=== PATIENT | female | born 1985 | race Caucasian/White ===

== ENCOUNTER → 2018-01-17 14:51 | Outpatient (CLI) | payer MEDICAID, SELFPAY | PROVIDERS: Family Provider Internal Medicine; PCP Internal Medicine; Visit Provider Obstetrics & Gynecology | DX: N39.498 Other specified urinary incontinence (principal) | CPT/HCPCS: 87086; 87088 ==

== ENCOUNTER 2018-01-26 20:21 | Emergency (ER) | payer MEDICAID, SELFPAY ==
[2018-01-26 20:21] VITALS: BP 122/78; PULSE 96; RESP 15; TEMP 36.5; BMI 26.7
--- NOTE | 2018-01-26 20:40 | ED.VISSUMM ---
- ER Visit Summary Date of Service: 01/26/18 Chief Complaint: Right breast abscess History of Present Illness: The patient is a 32 F who presents with a right breast abscess. She has noticed that there for 10 days. It is painful. No fevers no drainage. States she had abnormal mammogram a few months back and had a biopsy but does not know the results. Physical Examination: Vital signs reviewed. Right breast reveals an erythematous area below the nipple. There is no induration. No fluctuance or drainage Test Results: None indicated Emergency Department Course and Treatment: Patient likely has a small abscess. It is not amenable to I&D at this time. I will treat with clindamycin and naproxen. Will need to follow-up with her [employer] Treatment Plan: [] Disposition: Discharge Impression: Right breast abscess This note was generated with [employer] dictation software. It may contain incorrect words, spelling, and punctuation that were not noted in review of the chart prior to signing ED Disposition - Plan for ED Patient: Chief Complaint: Abscess Referrals: Yassine Link MD [Primary Care Provider] -
--- NOTE | 2018-01-26 20:41 | ED.DEP ---
ED Disposition - Plan for ED Patient: Disposition: Home or Assisted Living Chief Complaint: Abscess Instructions: ED Infec Skin Cellulitis Prescriptions: Naproxen [Naprosyn] 500 mg PO BID PRN #20 tab Clindamycin [Cleocin] 300 mg PO TID #60 cap Referrals: Yassine Link MD [Primary Care Provider] -
[2018-01-26] MEDS: Clindamycin HCl 150 MG Capsule 300 MG PO (20:58)
[2018-01-26] MEDS: Naproxen 500 MG Tablet PO (20:59)
== END 2018-01-26 21:00 | disposition home or self-care (01) ==
LOC: ED 20:47
PROVIDERS: Emergency Provider Emergency Medicine; Family Provider Internal Medicine; PCP Internal Medicine
DX: N61.1 Abscess of the breast and nipple (principal); J45.909 Unspecified asthma, uncomplicated; Z72.0 Tobacco use; F32.9 Major depressive disorder, single episode, unspecified
CPT/HCPCS: 99283

== ENCOUNTER → 2018-01-30 12:59 | Outpatient (CLI) | payer MEDICAID, SELFPAY ==
--- NOTE | 2018-01-30 13:12 | HPBI_ITS ---
MAMMOGRAPHY - BILATERAL DIAGNOSTIC REASON FOR EXAM: Female, 32 years old. PERTINENT HISTORY: Palpable abnormality in the right breast. TECHNIQUE: Digital bilateral breast alonso (3D mammographic acquisition) in the CC and MLO projections. 2-D mediolateral oblique (MLO) and craniocaudad (CC) views of both breasts were obtained. CAD: Full Field Digital Mammography with Computer Added Detection was performed. COMPARISON: Comparison is made with prior study dated February 12, 2017. FINDINGS: Breast Composition: The breasts are heterogeneously dense, which may obscure small masses. There is evidence of a focal area of architectural distortion in the mid lateral portion of the left breast corresponding to the 3 or 4:00 position. The patient will be recalled for additional views including compression spot views. No other significant abnormalities are identified. HPBI/DIAG MAMM W/CAD, BILAT IMPRESSION: Focal area of architectural distortion at the 3:00 position of the left breast as described. The patient will be recalled for additional views. Recall Side: Left Breast ASSESSMENT CATEGORY: BIRADS Category 0: Incomplete. Need additional imaging evaluation. A letter regarding these results will be sent to the patient by the facility within 30 days. Approximately 10% of breast cancers are not detected by mammography. A normal mammogram should not delay biopsy of a clinically suspicious abnormality. Electronically Signed: Willy Hilliard MD at 14:52 EST Tel [phone], Service support ,
--- NOTE | 2018-01-30 13:12 | US_ITS ---
STUDY: ULTRASOUND BREAST - RIGHT REASON FOR EXAM: Female, 32 years old. Palpable lump in the right breast. TECHNIQUE: Axial and longitudinal images of the RIGHT breast were performed with a high resolution ultrasound transducer. COMPARISON: Comparison is made with prior mammogram done earlier today. Comparison is also made with prior sonogram of the right breast dated February 12, 2017. FINDINGS: RIGHT Breast: The palpable abnormality corresponds to a 1.4 cm x 2.2 cm x 0.5 cm hypoechoic nodular density in the subcutaneous tissue just deep to the skin. This is at the 4:00 position breast that sinus from the nipple. This most likely corresponds to an infected sebaceous cyst. Clinical correlation is recommended. US/Breast Limited Unilateral IMPRESSION: The palpable abnormality corresponds to a 1.4 cm x 2.2 cm x 0.5 cm hypoechoic nodule in the subcutaneous tissues just deep to the skin at the palpable site. This most likely represents an infected sebaceous cyst. Clinical correlation is recommended. ASSESSMENT CATEGORY: BIRADS Category 2: Benign. A letter regarding these results will be sent to the patient by the facility within 30 days. Electronically Signed: Willy Hilliard MD at 14:48 EST Tel [phone], Service support ,
== END ==
PROVIDERS: Family Provider Internal Medicine; PCP Internal Medicine; Visit Provider Obstetrics & Gynecology
DX: N63.0 Unspecified lump in unspecified breast (principal)
CPT/HCPCS: 76642; 77062; 77066; G0279

== ENCOUNTER → 2018-02-05 13:37 | Outpatient (CLI) | payer MEDICAID, SELFPAY ==
--- NOTE | 2018-02-05 13:43 | HPBI_ITS ---
MAMMOGRAPHY - UNILATERAL DIAGNOSTIC: LEFT BREAST REASON FOR EXAM: Female, 32 years old. Abnormal screening mammogram. PERTINENT HISTORY: Non-contributory. TECHNIQUE: Compression spot views of the left breast were obtained. CAD: Full Field Digital Mammography with Computer Added Detection was performed. COMPARISON: Comparison is made with prior study dated January 30, 2018. FINDINGS: Breast Composition: The breasts are heterogeneously dense, which may obscure small masses. Persistent architectural distortion with faint calcifications is seen in the inferior medial aspect of the left breast. A biopsy recommended for further evaluation. No other significant abnormalities are identified. HPBI/DIAG MAMM W/CAD, UNILAT IMPRESSION: Persistent architectural distortion with calcification as described. A biopsy recommended for further evaluation. ASSESSMENT CATEGORY: BIRADS Category 4: Suspicious - Biopsy Should Be Considered. A letter regarding these results will be sent to the patient by the facility within 30 days. Approximately 10% of breast cancers are not detected by mammography. A normal mammogram should not delay biopsy of a clinically suspicious abnormality. Electronically Signed: Willy Hilliard MD at 15:16 EDT Tel [phone], Service support ,
--- NOTE | 2018-02-05 13:44 | US_ITS ---
STUDY: ULTRASOUND BREAST - LEFT REASON FOR EXAM: Female, 32 years old. Abnormal screening mammogram. TECHNIQUE: Axial and longitudinal images of the LEFT breast were performed with a high resolution ultrasound transducer. COMPARISON: Comparison is made with prior mammogram dated February 05, 2018 and January 30, 2018. Comparison is also made with prior ultrasound of the left breast dated February 12, 2017. FINDINGS: LEFT Breast: There is a 7 mm x 6 mm x 3 mm lymph node at 1:00 position of the breast at the 4 cm from nipple. Mild degree of dilated subareolar ducts. US/Breast Limited Unilateral IMPRESSION: Small lymph node at the 1:00 position the breast at 4 cm from nipple. ASSESSMENT CATEGORY: BIRADS Category 2: Benign. A letter regarding these results will be sent to the patient by the facility within 30 days. Electronically Signed: Willy Hilliard MD at 8:06 EDT Tel [phone], Service support ,
== END ==
PROVIDERS: Family Provider Internal Medicine; PCP Internal Medicine; Visit Provider Obstetrics & Gynecology
DX: N63.0 Unspecified lump in unspecified breast (principal)
CPT/HCPCS: 76642; 77065

== ENCOUNTER → 2018-03-18 11:10 | Outpatient (CLI) | payer MEDICAID, SELFPAY ==
--- NOTE | 2018-03-18 | BRBX_PTH ---
PATIENT: ANJELICA MCWILLIAMS LOC: [facility] U#:[id number] AGE/SX: 39/F ROOM: RE03/18/[address]: Dr. Florin Patel MD : 1985 BED: DIS: SPEC #: [id number] RECD: 03/18/18 13:45 STATUS: SHARITA SNEEDAlejandrina #: [id number] KEVEN: 03/18/18 00:[address]: Florin Patel DEPT: SURGICAL PATHOLOGY RECD BY: Milton Diego ENTERED: 03/18/18 13:45 SP TYPE: BREAST BX OTHR DR: Dr. Yassine Link MD Tissues: Left breast, NOS Procedures: Surgery Specimen Level IV HEADER OPERATION: Left breast stereotactic needle core biopsy PRE-OP DIAGNOSIS: Left breast calcifications TISSUE SUBMITTED: Left breast core tissue ISCHEMIC TIME: 1 minute FIXATION TIME: 7.7 hours MICROSCOPIC DIAGNOSIS Left breast, stereotactic core biopsy: Mild fibrocystic change. Focal Banal microcalcifications. No evidence of malignancy. AM:zhane 03/19/18 MICROSCOPIC DESCRIPTION Slides are reviewed. GROSS DESCRIPTION Received is one container labeled with the patient's name and not further designated. The specimen consists of multiple irregular and elongated fragments of yellow-white soft tissue that in aggregate measure 8.5 x 3 x 0.2 cm. The specimen is totally submitted in three cassettes. / AM:zhane 03/18/18 TC:5 CPT: 81945
--- NOTE | 2018-03-18 12:03 | PCM.OPRPT ---
Problem List (1) Abnormal mammogram of left breast Status: Acute Report of Operation Date of Procedure: 03/18/18 Pre-Operative Diagnosis: Abnormal left mammogram Post-Operative Diagnosis: Abnormal left mammogram with distortion and microcalcifications lower inner left breast Surgery/Procedure Performed:: Stereotactic needle core biopsy lower inner left breast Description of Surgical Findings:: Timeout and informed consent was obtained. 32-year-old female was taken to the stereotactic unit. She was placed prone on the table. The left breast was placed in a lateral the microcalcification in distortion question rapidly identified. Stereotactic images were obtained. Digital information was obtained on a single target site. The breast was prepped with Betadine. 1% lidocaine was used as a local anesthetic. A total of 10 cc was used. A small stab incision created. An 8-gauge resolve needle was advanced to prefire depth. Prefire films were obtained. Subsequently the device was fired. Cores were obtained from 9:00 to 3:00. Specimen mammograms were then obtained. Microcalcifications were noted to be present within the specimen. A microclip was stopped at the 12 o'clock position. En fast view demonstrated good positioning. She was released from the device and pressure was held for hemostasis. Subsequently follow-up CC and mediolateral views were obtained. The wound was treated with Steri-Strips Telfa OpSite dressing. She was provided an ice pack. She was given activity and wound care instructions. The specimens were immediately submitted in formalin. Further office follow-up can be as needed pending pathology. There were no apparent complications. Florin Patel M.D., F.A.C.S. Type of Anesthesia:: Local
== END ==
PROVIDERS: Family Provider Internal Medicine; PCP Internal Medicine; Visit Provider Surgery
DX: R92.0 Mammographic microcalcification found on diagnostic imaging of breast (principal); N60.81 Other benign mammary dysplasias of right breast; N60.12 Diffuse cystic mastopathy of left breast; F32.9 Major depressive disorder, single episode, unspecified; F41.9 Anxiety disorder, unspecified; I10 Essential (primary) hypertension; F17.200 Nicotine dependence, unspecified, uncomplicated
CPT/HCPCS: 19081; 88305; J7050; A4648

== ENCOUNTER → 2018-07-17 13:11 | Outpatient (CLI) | payer MEDICAID, SELFPAY | PROVIDERS: Family Provider Internal Medicine; PCP Internal Medicine; Visit Provider Obstetrics & Gynecology | DX: Z12.31 Encounter for screening mammogram for malignant neoplasm of breast (principal); N64.4 Mastodynia | CPT/HCPCS: 76642; 77062; 77066; G0279 ==

== ENCOUNTER 2018-07-22 10:11 | Emergency (ER) | payer MEDICAID, SELFPAY ==
[2018-07-22 10:11] VITALS: BP 98/72; PULSE 114; RESP 18; TEMP 37.1; O2SAT 99; BMI 28.7
--- NOTE | 2018-07-22 10:36 | ED.VISSUMM ---
- ER Visit Summary Date of Service: 07/22/18 Chief Complaint: Cough clear sputum History of Present Illness: The patient is a 32 F who was recently diagnosed with upper respiratory infection. She has recurrence of rhinorrhea, postnasal drainage, sore throat and cough productive of clear sputum. She is a smoker one pack per day. She has smoked since age 17. She denies fever, chills night sweats. She denies any ocular, visual or auditory symptoms. She denies any chest pain. There is no history of PE or DVT. She has no risk factors for either. She has no GI symptoms. Physical Examination: Vital signs were noted and heart rate is 114. HEENT exam is remarkable for boggy nasal mucosa with clear drainage. Trach is midline. There is no stridor. Right and left shotty anterior cervical lymphadenopathy noted. Heart is regular without murmur, gallop or rub. Lungs are clear to auscultation with good move air bilaterally. Lower extremity exam is unremarkable. Test Results: None Emergency Department Course and Treatment: Patient was informed she may have a cough for 4 weeks and she is smoker. She was informed it is in her best interest to quit smoking. Treatment Plan: Symptomatic treatment Disposition: Discharged to home Impression: Acute viral upper respiratory infection This note was generated with [employer] dictation software. It may contain incorrect words, spelling, and punctuation that were not noted in review of the chart prior to signing ED Disposition - Plan for ED Patient: Disposition: Home or Assisted Living Chief Complaint: Shortness of Breath Instructions: ED Upper Resp Infec No Abx Tx Referrals: Yassine Link MD [Primary Care Provider] - 10-14 Days if not better Additional Instructions: It is in your best interest to quit smoking. Because you are a smoker you may have a cough up to 4 weeks.
== END 2018-07-22 11:05 | disposition home or self-care (01) ==
LOC: ED 10:44
PROVIDERS: Emergency Provider Emergency Medicine; Family Provider Internal Medicine; PCP Internal Medicine
DX: J06.9 Acute upper respiratory infection, unspecified (principal); Z72.0 Tobacco use
CPT/HCPCS: 99282

== ENCOUNTER 2018-10-23 09:09 | Day surgery (SDC) | payer MEDICAID, SELFPAY ==
[2018-10-14 10:09] LABS: Hematocrit 44.8 % (37-47); Hemoglobin 14.7 g/dl (12.0-15.0); Mean Corp Hgb Conc 32.8 g/gl (32-36); Mean Corpuscular Hgb 32.1 pg (27.0-32.0); Mean Corpuscular Volume 97.8 fL (81-99); Mean Platelet Vol. 11.6 fl (6.2-12.0); Platelet Count 164 K/mm3 (150-450); RBC Distribution Width CV 12.8 % (11.6-14.6); RBC Distribution Width SD 45.7 fl (35.1-43.9); Red Blood Count 4.58 M/mm3 (4.2-5.4)
[2018-10-14 10:10] LABS: Scan Indicated on CBC? Y/N NO
[2018-10-14 10:29] LABS: Prothrombin Time (Protime)PT. 12.8 SECONDS (11.7-14.9)
[2018-10-14 10:30] LABS: Partial Thromboplast Time 31.3 Seconds (24.1-36.2)
--- NOTE | 2018-10-23 09:16 | EKG12_ITS ---
Test Reason : PRE OP Blood Pressure : / mmHG Vent. Rate : 063 BPM Atrial Rate : 063 BPM P-R Int : 170 ms QRS Dur : 082 ms QT Int : 408 ms P-R-T Axes : 076 051 061 degrees QTc Int : 417 ms Normal sinus rhythm Normal ECG When compared with ECG of 05-NOV-2017 14:05, No significant change was found Confirmed by RIRI SAMANIEGO, CYDNEY ([id number]), editor magazine LILLIAN CAMPOS ([id number]) on 10/25/2018 2:16:13 PM Referred By: Logan Cunningham Confirmed By:CYDNEY MENEZES MD
[2018-10-23 09:33] VITALS: BP 114/66; PULSE 61; RESP 16; TEMP 37; O2SAT 100; BMI 28.3
--- NOTE | 2018-10-23 11:05 | OV_PTH ---
PATIENT: ANJELICA MCWILLIAMS [place] [facility] [place][id number] AGE/SX: 32/F ROOM: RE10/23/[address]: Dr. Logan Cunningham MD : 1985 BED: DIS: 10/23/2018 SPEC #: [id number] RECD: 10/23/18 14:45 STATUS: SHARITA ISHA #: [id number] KEVEN: 10/23/18 11:[address]: Logan Cunningham DEPT: SURGICAL PATHOLOGY RECD BY: Iftikhar Whatley ENTERED: 10/23/18 14:52 SP TYPE: OVARY OTHR DR: Dr. Yassine Link MD Tissues: Left ovary Procedures: Surgery Specimen Level IV HEADER OPERATION: Laparoscopic left oophorectomy, lysis of adhesions PRE-OP DIAGNOSIS: Chronic pelvic pain TISSUE SUBMITTED: Left ovary MICROSCOPIC DIAGNOSIS Left ovary, oophorectomy: Corpus luteal cyst and follicular cysts. Minute portion of ciliated epithelium. AM:zhane 10/24/18 MICROSCOPIC DESCRIPTION Slides are reviewed. GROSS DESCRIPTION Received in fixative is one container labeled with the patient's name and designated left ovary. The specimen consists of a soft to cystic ovary measuring 3.5 x 2.5 x 1.5 cm and weighing 7.5 cm. The outer surface is smooth. Sections reveal multiple cysts filled with clear to hemorrhage fluid. The largest cyst measures 0.5 cm in greatest dimension. A corpus luteum is also noted. The entire specimen is submitted in four cassettes. / SJ:zhane 10/23/18 TC:5 CPT: 38593
--- NOTE | 2018-10-23 11:54 | DCINST_ITS ---
You will use the following diet at home:: No restrictions Your food should be the consistency of: Regular Discharge Activity: Return to Normal Activity, No Restrictions, May Drive, May not drive while taking narcotic pain medications., May Shower Return to work on:: 10/28/18 May shower in (days): 0 May resume sexual activity in: 3 weeks Lifting Restrictions: none Call your doctor if your incision/area has: Sudden Increased Bleeding, Increased Pain/ Swelling, Increased Redness, Swelling at the incision site Call your doctor if you observe: Fever of 101 or Higher, Inability to urinate, Inability to have a bowel movement, Shortness of breath, Chest pain, Calf discomfort, Uncontrolled pain Remove Dressing in (days):: 2 Cleanse incision/area with: Soap & Water Allergies/Adverse Reactions: Allergies benzonatate [From Tessalon Perles] Allergy (Verified 07/22/18 10:14) Rash diazepam [From Valium] Allergy (Verified 07/22/18 10:14) Hives morphine Allergy (Verified 07/22/18 10:14) Itching Penicillins Allergy (Verified 07/22/18 10:14) Hives venom-honey bee [bee venom (honey bee)] Allergy (Verified 07/22/18 10:14) Hives Medications to take at Discharge Sertraline HCl [Zoloft] 50 mg PO DAILY 11/28/15 busPIRone [Buspar] 30 mg PO DAILY 11/28/15 Albuterol Inhaler [Ventolin Hfa] 2 puff INHALATION Q4H PRN PRN #0 inhaler 05/03/16 Albuterol Aerosols [Ventolin Aerosols] 2.5 mg INHALATION Q6H PRN PRN 10/06/16 Pantoprazole Sodium [Protonix] 40 mg PO DAILY 04/02/17 Lorazepam [Ativan] 0.5 mg PO DAILY PRN 11/05/17 Trazodone HCl 50 mg PO QHS PRN PRN 11/05/17 Oxycodone HCl/Acetaminophen [Percocet 5/325] 1 tab PO Q6H PRN PRN #6 tab 12/03/17 Naproxen [Naprosyn] 500 mg PO BID PRN PRN 10/15/18 Oxybutynin [Ditropan] 5 mg PO BID 10/15/18 Ibuprofen 600 mg PO 4X/DAY #30 tab 10/23/18 Oxycodone [Oxyir] 10 mg PO Q6H PRN PRN 7 Days #28 tab 10/23/18 The following prescriptions were given: Oxycodone [Oxyir] 10 mg PO Q6H PRN PRN 7 Days #28 tab PRN Reason: Severe Pain (6-10) Ibuprofen 600 mg PO 4X/DAY #30 tab Primary Care Physician: Yassine Link MD [Primary Care Provider] - Test Results: Test results from this visit will be discussed in further detail at your follow- up appointment, if applicable. Please Follow Up With: Logan Cunningham MD When: one week Proposed Discharge Date: 10/23/18
--- NOTE | 2018-10-23 12:00 | OP.PCM_ITS ---
Problem List (1) Pelvic pain Status: Chronic Report of Operation Date of Procedure: 10/23/18 Pre-Operative Diagnosis: Chronic left pelvic pain Post-Operative Diagnosis: Same Surgery/Procedure Performed:: Laparoscopic Left Oophorectomy, Lysis of Pelvic Adhesions Description of Surgical Findings:: Some scarring of pericolic fat to posterior bladder. Right and left ovaries appeared normal. Liver, gallbladder, and stomach normal. refrigerated cargo clerk: Judi Vizcarra Type of Anesthesia:: General Anesthesiologist: Armand Thomas Special Medications: none Specimen's removed: left ovary Drains: none Estimated Blood Loss (mL): minimal Fluids Replaced: 1200cc LR Description of Procedure: Anne was taken to the OR with IV running. She was given gentamicin and clindamycin intravenously prior to the surgery for prophylaxis. SCDs were in place throughout the case. General anesthesia was introduced without complication. She was prepped and draped in the supine position. A red rubber catheter was used to drain the bladder. A 10mm vertical incision was made in the lower base of the umbilicus. The underlying subcutaneous tissue was dissected down to the level of the fascia. The abdominal wall was then elevated and a Veress needle was placed through the umbilical defect into the abdomen. The abdomen was then inflated with CO2 gas to 15 Torr. The Veress needle was then removed and replaced with a 10mm laparoscopic trocar and sleeve. The trocar was removed and replaced with the laparoscope. Findings were as mentioned previously. Two 5mm lateral side ports were then placed under direct visualization with the laparoscope. These were placed at the level of the umbilicus just to the left and right of the left inferior epigastric vessels respectively. The adhesions of the pericolic fat to the posterior bladder were dissected using sharp dissection with the endoshears and Ligasure device. This made visualization of the left ovary possible. The left ovary was then grasped with a grasper and the infindibulopelvic ligament was cauterized and cut with the ligasure device. The ovary was then removed through the umbilical port. The pedicle was inspected and found to be hemostatic. The lateral port sites were then removed with good hemostasis noted. The gas was evacuated from the abdomen and the umbilical port site removed. The fascial defect at the umbilicus was closed with 0-Vicryl. The skin incisions were closed with 4-0 Monocryl. Sponge, lap, needle, and instrument counts were correct. She was reversed from anesthesia and taken to the recovery room in stable condition. Grafts/Implants Used: none - Complications none - Admit VTE Documentation VTE Present on Admission: No VTE Mechan Device Prophylaxis: SCD's VTE Pharm Prophylaxis ordered?: No
[2018-10-23] MEDS: Bupivacaine 0.25% 30 ML Vial (12:51)
[2018-10-23 13:12] VITALS: BP 114/66; BP 118/76; PULSE 80; RESP 16; TEMP 36.6; O2SAT 99
[2018-10-23 13:30] VITALS: BP 110/71; BP 114/66; PULSE 75; RESP 16; O2SAT 100
[2018-10-23 13:45] VITALS: BP 108/72; BP 114/66; PULSE 72; RESP 16; TEMP 36.4
[2018-10-23 14:58] VITALS: BP 114/66; BP 99/64; PULSE 73; RESP 16; TEMP 36.6; O2SAT 99
--- OUTSIDE RECORDS SUMMARY | 2018-12-18 15:34 | XMS RPT_ITS ---
:1985 Author Organization OHIP Support Name Relationship Address Phone JAYCE MCWILLIAMS Unavailable [address] [place] [address] [employer] Unavailable [address] + [place] [address] JAYCE MCWILLIAMS Unavailable [address] [place] [address] [employer] Unavailable [address] + [place] [address] [employer] Unavailable . +. [place] . JAYCE MCWILLIAMS Unavailable [address] [place] [address] [employer] Unavailable . +. [place] . JAYCE MCWILLIAMS Unavailable [address] [place] [address] D Unavailable Unavailable Unavailable JAYCE MCWILLIAMS Unavailable [address] [place] [address] D Unavailable Unavailable Unavailable JAYCE MCWILLIAMS Unavailable [address] [place] [address] D Unavailable Unavailable Unavailable JAYCE MCWILLIAMS Unavailable [address] [place] [address] D Unavailable Unavailable Unavailable JAYCE MCWILLIAMS Unavailable [address] [place] [address] D Unavailable Unavailable Unavailable JAYCE MCWILLIAMS Unavailable [address] [place] [address] D Unavailable Unavailable Unavailable JAYCE MCWILLIAMS Unavailable [address] [place] [address] D Unavailable Unavailable Unavailable POPPY, JAYCE Unavailable [address] [place] [address] D Unavailable Unavailable Unavailable POPPY, JAYCE Unavailable [address] [place] [address] D Unavailable Unavailable Unavailable POPPY, JAYCE Unavailable [address] + [place] [address] D Unavailable Unavailable Unavailable POPPY, JAYCE Unavailable [address] + [place] [address] D Unavailable Unavailable Unavailable POPPY, JAYCE Unavailable [address] + [place] [address] Care Team Providers Name Role Phone OLDER, BEATRICE ([facility]) Referring Unavailable PODLOGARSOLEDAD ([facility]) Attending Unavailable AJAY CHAN Attending Unavailable LINK, STEVIE Referring Unavailable LINK, STEVIE Attending Unavailable LINK, STEVIE Referring Unavailable GERMAN PIRES ([facility]) Attending Unavailable OLDER, BEATRICE ([facility]) Referring Unavailable OLDER, BEATRICE ([facility]) Referring Unavailable OLDER, BEATRICE ([facility]) Referring Unavailable OLDER, BEATRICE ([facility]) Referring Unavailable OLDER, BEATRICE ([facility]) Referring Unavailable HADLEY BOWSER Attending Unavailable OLDER, BEATRICE ([facility]) Referring Unavailable OLDER, BEATRICE ([facility]) Referring Unavailable ALIYAH CHURCHILL ([facility]) Attending Unavailable RUTTIGRICELDA ([facility]) Attending Unavailable LINK, STEVIE Attending Unavailable OLDER, BEATRICE ([facility]) Attending Unavailable LINK, STEVIE Referring Unavailable OLBRYCHHADLEY Referring Unavailable OLHADLEY JOYA Referring Unavailable OLDER, BEATRICE ([facility]) Attending Unavailable OLDER, BEATRICE ([facility]) Referring Unavailable Link, Yassine Primary Care Unavailable Lorie Madison Attending Unavailable SealsLogan Attending Unavailable Link, Yassine Primary Care Unavailable Link, Yassine Primary Care Unavailable Wes Carter Attending Unavailable Logan Cunningham Attending Unavailable Logan Cunningham Referring Unavailable Link, Yassine Primary Care Unavailable Logan Cunningham Attending Unavailable Link, Yassine Primary Care Unavailable Sealdonald, Logan Attending Unavailable Link, Yassine Primary Care Unavailable Florin Patel Attending Unavailable Logan Cunningham Referring Unavailable Link, Yassine Primary Care Unavailable Aliyah Carrion PA-C Attending Unavailable Link, Yassine Referring Unavailable Link, Yassine Primary Care Unavailable Cebul, Florin Attending Unavailable Link, Yassine Primary Care Unavailable Cebul, Florin Attending Unavailable Link, Yassine Primary Care Unavailable Cebul, Florin Consulting Unavailable Seals, Logan Attending Unavailable Link, Yassine Primary Care Unavailable Link, Yassine Primary Care Unavailable Mercado, Grant Attending Unavailable Cebul, Florin Attending Unavailable Seals, Logan Referring Unavailable Link, Yassine Primary Care Unavailable Seals, Logan Attending Unavailable Seals, Logan Referring Unavailable Link, Yassine Primary Care Unavailable Joce Addison Attending Unavailable Seals, Logan Referring Unavailable PROBLEMS PROBLEMS DATE TYPE CONDITION / CODE ATTENDING STATUS SOURCE 10/24/2018 Unknown G89.18 - Other acute Logan Cunningham Active [facility] postprocedural pain [facility] / G89.18(ICD-10) Hospital Repository 11/01/2018 Unknown Z01.810 - Encounter Joce Addison Active [place] for preprocedural [facility] Hospital examination / Repository Z01.810(ICD-10) 10/01/2018 Active Postnasal drip / NA Active [facility] R09.82(ICD-10) [facility] Main [place] Repository 09/27/2018 Active Unspecified asthma, NA Active [facility] uncomplicated / Clinic Main J45.909(ICD-10) [place] Repository 03/18/2018 Unknown R92.8 - Other Florin Patel Active [facility] abnormal and Community inconclusive Hospital findings on Repository diagnostic imaging of breast / R92.8(ICD-10) 02/20/2018 Active Unknown / NA Active [facility] UNK(Unknown) [facility] Main [place] Repository 02/05/2018 Active Low back pain / NA Active [facility] M54.5(ICD-10) [facility] Main [place] Repository 02/05/2018 Active Mixed incontinence / NA Active [facility] N39.46(ICD-10) [facility] Main [place] Repository 02/05/2018 Active Radiculopathy, NA Active [facility] cervical region / Clinic Main M54.12(ICD-10) [place] Repository 02/05/2018 Active Pain in thoracic NA Active [place] spine / Clinic Main M54.6(ICD-10) [place] Repository 02/05/2018 Active Anesthesia of skin / NA Active [facility] R20.0(ICD-10) [facility] Main [place] Repository 02/05/2018 Active Paresthesia of skin NA Active [facility] / R20.2(ICD-10) [facility] Main [place] Repository 02/05/2018 Active Pain in left arm / NA Active [facility] M79.602(ICD-10) [facility] Repository 12/03/2017 Unknown N83.209 - [place], Active [facility] Unspecified ovarian [facility] cyst, unspecified Hospital side / Repository N83.209(ICD-10) PROCEDURES PROCEDURES No Procedure Records FoundRESULTS RESULTS 12 LEAD ELECTROCARDIOGRAM Observed: 10/25/2018 Status: F Source: [place] 2:16 PM REPOSITORY [facility] Cardiovascular Services [address] [place] [address] 12 Lead EKG 10/23/18 0927 MR#: [id number] Acct: [id number] Name: ANNE KUHN Rep #: [id number] : 1985 32 From: Joce Addison MD Attending Dr: Logan Cunningham MD Status: DEP [facility] Ordering Dr: Milton Serna MD Date: 10/23/18 Location: [facility] Sex: F C Admitted: Test Reason : PRE OP Blood Pressure : / mmHG Vent. Rate : 063 BPM Atrial Rate : 063 BPM P-R Int : 170 ms QRS Dur : 082 ms QT Int : 408 ms P-R-T Axes : 076 051 061 degrees QTc Int : 417 ms Normal sinus rhythm Normal ECG When compared with ECG of 05-NOV-2017 14:05, No significant change was found Confirmed by JOCE ADDISON MD ([id number]), mapping editor LILLIAN CAMPOS ([id number]) on 10/25/2018 2:16:13 PM Referred By: Logan Cunningham Confirmed By:JOCE ADDISON MD 10/25/18 1416 Date Joce Addison MD CC: Milton Serna MD; Logan Cunningham MD; Yassine Link MD Signed OPERATIVE REPORT Observed: 10/23/2018 Status: F Source: [place] 12:58 PM REPOSITORY [facility] Medical Records Department [address] [place] [address] Operative Report 10/23/18 1154 MR#: [id number] Acct: [id number] Name: ANNE KUHN Rep #: [id number] : 1985 32 From: Logan Cunningham MD PCP: Yassine Link MD Status: REG SDC Y Location: [place] [address] Problem List (1) Pelvic pain Status: Chronic Report of Operation Date of Procedure: 10/23/18 Pre-Operative Diagnosis: Chronic left pelvic pain Post-Operative Diagnosis: Same Surgery/Procedure Performed:: Laparoscopic Left Oophorectomy, Lysis of Pelvic Adhesions Description of Surgical Findings:: Some scarring of pericolic fat to posterior bladder. Right and left ovaries appeared normal. Liver, gallbladder, and stomach normal. jig mill operator: Judi Vizcarra Type of Anesthesia:: General Anesthesiologist: Armand Thomas Special Medications: none Specimen's removed: left ovary Drains: none Estimated Blood Loss (mL): minimal Fluids Replaced: 1200cc LR Description of Procedure: Anne was taken to the OR with IV running. She was given gentamicin and clindamycin intravenously prior to the surgery for prophylaxis. SCDs were in place throughout the case. General anesthesia was introduced without complication. She was prepped and draped in the supine position. A red rubber catheter was used to drain the bladder. A 10mm vertical incision was made in the lower base of the umbilicus. The underlying subcutaneous tissue was dissected down to the level of the fascia. The abdominal wall was then elevated and a Veress needle was placed through the umbilical defect into the abdomen. The abdomen was then inflated with CO2 gas to 15 Torr. The Veress needle was then removed and replaced with a 10mm laparoscopic trocar and sleeve. The trocar was removed and replaced with the laparoscope. Findings were as mentioned previously. Two 5mm lateral side ports were then placed under direct visualization with the laparoscope. These were placed at the level of the umbilicus just to the left and right of the left inferior epigastric vessels respectively. The adhesions of the pericolic fat to the posterior bladder were dissected using sharp dissection with the endoshears and Ligasure device. This made visualization of the left ovary possible. The left ovary was then grasped with a grasper and the infindibulopelvic ligament was cauterized and cut with the ligasure device. The ovary was then removed through the umbilical port. The pedicle was inspected and found to be hemostatic. The lateral port sites were then removed with good hemostasis noted. The gas was evacuated from the abdomen and the umbilical port site removed. The fascial defect at the umbilicus was closed with 0-Vicryl. The skin incisions were closed with 4-0 Monocryl. Sponge, lap, needle, and instrument counts were correct. She was reversed from anesthesia and taken to the recovery room in stable condition. Grafts/Implants Used: none - Complications none - Admit VTE Documentation VTE Present on Admission: No VTE Mechan Device Prophylaxis: SCD's VTE Pharm Prophylaxis ordered?: No 10/23/18 1258 <Electronically signed by Logan Cunningham MD> Date Logan Cunningham MD CC: Logan Cunningham MD; Yassine Link MD Signed DISCHARGE INSTRUCTION Observed: 10/23/2018 Status: F Source: [place] 11:54 AM REPOSITORY [facility] Medical Records Department [address] [place] [address] Instructions for Home/Discharge Instructions 10/23/18 1152 MR#: [id number] Acct: [id number] Name: ANNE KUHN Rep #: [id number] : 1985 32 From: Logan Cunningham MD PCP: Yassine Link MD Status: REG [facility] You will use the following diet at home:: No restrictions Your food should be the consistency of: Regular Discharge Activity: Return to Normal Activity, No Restrictions, May Drive, May not drive while taking narcotic pain medications., May Shower Return to work on:: 10/28/18 May shower in (days): 0 May resume sexual activity in: 3 weeks Lifting Restrictions: none Call your doctor if your incision/area has: Sudden Increased Bleeding, Increased Pain/ Swelling, Increased Redness, Swelling at the incision site Call your doctor if you observe: Fever of 101 or Higher, Inability to urinate, Inability to have a bowel movement, Shortness of breath, Chest pain, Calf discomfort, Uncontrolled pain Remove Dressing in (days):: 2 Cleanse incision/area with: Soap AND Water Allergies/Adverse Reactions: Allergies benzonatate [From Tessalon Perles] Allergy (Verified 07/22/18 10:14) Rash diazepam [From Valium] Allergy (Verified 07/22/18 10:14) Hives morphine Allergy (Verified 07/22/18 10:14) Itching Penicillins Allergy (Verified 07/22/18 10:14) Hives venom-honey bee [bee venom (honey bee)] Allergy (Verified 07/22/18 10:14) Hives Medications to take at Discharge Sertraline HCl [Zoloft] 50 mg PO DAILY 11/28/15 busPIRone [Buspar] 30 mg PO DAILY 11/28/15 Albuterol Inhaler [Ventolin Hfa] 2 puff INHALATION Q4H PRN PRN #0 inhaler 05/03/16 Albuterol Aerosols [Ventolin Aerosols] 2.5 mg INHALATION Q6H PRN PRN 10/06/16 Pantoprazole Sodium [Protonix] 40 mg PO DAILY 04/02/17 Lorazepam [Ativan] 0.5 mg PO DAILY PRN 11/05/17 Trazodone HCl 50 mg PO QHS PRN PRN 11/05/17 Oxycodone HCl/Acetaminophen [Percocet 5/325] 1 tab PO Q6H PRN PRN #6 tab 12/03/17 Naproxen [Naprosyn] 500 mg PO BID PRN PRN 10/15/18 Oxybutynin [Ditropan] 5 mg PO BID 10/15/18 Ibuprofen 600 mg PO 4X/DAY #30 tab 10/23/18 Oxycodone [Oxyir] 10 mg PO Q6H PRN PRN 7 Days #28 tab 10/23/18 The following prescriptions were given: Oxycodone [Oxyir] 10 mg PO Q6H PRN PRN 7 Days #28 tab PRN Reason: Severe Pain (6-10/10) Ibuprofen 600 mg PO 4X/DAY #30 tab Primary Care Physician: Yassine Link MD [Primary Care Provider] - Test Results: Test results from this visit will be discussed in further detail at your follow-up appointment, if applicable. Please Follow Up With: Logan Cunningham MD When: one week Proposed Discharge Date: 10/23/18 10/23/18 1154 <Electronically signed by Logan Cunningham MD> Date Logan Cunningham MD CC: Yassine Link MD OVARY (CHOOSE SIDE) Observed: 10/23/2018 Status: F Source: [place] 11:05 AM REPOSITORY Patient: ANNE KUHN : 1985 (32/F) Acct Num: [id number] Phys: Logan Cunningham MD Unit Num: [id number] Loc: [facility] Specimen: [id number] Received: 10/23/18 - 1445 Spec Type: OVARY TISSUES 1 TISSUES: Left ovary GROSS DESCRIPTION Received in fixative is one container labeled with the patient's name and designated left ovary. The specimen consists of a soft to cystic ovary measuring 3.5 x 2.5 x 1.5 cm and weighing 7.5 cm. The outer surface is smooth. Sections reveal multiple cysts filled with clear to hemorrhage fluid. The largest cyst measures 0.5 cm in greatest dimension. A corpus luteum is also noted. The entire specimen is submitted in four cassettes. / SJ:zhane 10/23/18 TC:5 CPT: 64355 HEADER OPERATION: Laparoscopic left oophorectomy, lysis of adhesions PRE-OP DIAGNOSIS: Chronic pelvic pain TISSUE SUBMITTED: Left ovary MICROSCOPIC DESCRIPTION Slides are reviewed. MICROSCOPIC DIAGNOSIS Left ovary, oophorectomy: Corpus luteal cyst and follicular cysts. Minute portion of ciliated epithelium. AM:zhane 10/24/18 Signed Cristhian Schulte 10/24/18 <signature on file> Performed By: #### POV #### [place] [facility] [place], [address] OBSOLETE Observed: 10/16/2018 Status: COMPLETED Source: [place] 12:00 AM CLINIC OTHER CAMPUS REPOSITORY Refill ([facility]) ANNE KUHN ([id number]) 1985 F Date Time Provider Department 10/16/18 HADLEY BOWSER During your visit today, we recorded the following information about you: Hadley Bowser MD 10/16/2018 2:35 PM Signed See 10/16/2018 Spritz message. Allergies As of Date: 10/16/2018 Noted Allergy Reaction BEES 06/23/2011 10 - Anaphylaxis Comments: Pt had swelling, was given epipen at ER. MORPHINE 11/10/2014 2 - Rash Comments: Left arm turned red when given IV morphine PENICILLINS 02/14/2011 14 - Other: See Comments Comments: Patient refuses due to family allergy to PCN. VALIUM (DIAZEPAM) 08/03/2015 4 - Hives Comments: Hives on chest only. TESSALON (BENZONATATE) 11/03/2017 2 - Rash Date Reviewed: 09/27/2018 Reviewed by: Hadley Bowser - Fully Assessed Reason for Visit: Refill Request [94] Order(s):fluticasone-vilanterol (BREO ELLIPTA) 100-25 mcg/dose inhalerInhale 1 Inhalation as instructed once daily.Disp: 1 EachRfl: 1 Prescriptions as of 10/16/2018 Sig: FLUTICASONE 100 MCG-VILANTERO* Inhale 1 Inhalation as instru* MONTELUKAST 10 MG TABLET Take 1 tablet by mouth daily * CETIRIZINE 10 MG TABLET Take 1 tablet by mouth once d* ALBUTEROL SULFATE 2.5 MG/3 ML* Use 3 mL via nebulizer three * ALBUTEROL SULFATE HFA 90 MCG/* INHALE TWO PUFFS BY MOUTH JUVE* PANTOPRAZOLE 20 MG TABLET,DEL* Take 2 tablets by mouth once * EPINEPHRINE 0.3 MG/0.3 ML INJ* GIVE ONE DOSE INTO LATERAL TH* LORAZEPAM 0.5 MG TABLET Take by mouth twice daily as * TRAZODONE 50 MG TABLET Take 1 tablet by mouth daily * COMPOUNDED PRESCRIPTION NEBULIZER, TUBING, AND MOUTHP* BUSPIRONE 30 MG TABLET Take 1 tablet by mouth twice * ARIPIPRAZOLE 10 MG TABLET Take 1 tablet by mouth once d* Problem List As Of Date 10/16/2018 Noted Resolved BIPOLAR DISORDER NOS [F31.9] INVALID FOR* Asthma [J45.909] INVALID FOR* Mastodynia [N64.9] INVALID FOR* ESOPHAGEAL REFLUX [K21.9] INVALID FOR* Pruritus of genital organs [L29.3] INVALID FOR*01/03/2011 TOBACCO USE DISORDER [F17.200] INVALID FOR* HIDRADENITIS [L73.2] INVALID FOR* Lumbago [M54.5] INVALID FOR*04/18/2018 Dysuria [R30.0] INVALID FOR*01/03/2011 Abdominal pain, generalized [R10.84] INVALID FOR*01/03/2011 Abdominal pain, epigastric [R10.13] INVALID FOR*03/15/2012 Disturbance of skin sensation [R20.9] INVALID FOR*01/03/2011 Cervicalgia [M54.2] INVALID FOR*01/03/2011 Nausea [R11.0] INVALID FOR* Abdominal pain, right upper quadrant [R10.11] INVALID FOR*03/15/2012 Gastritis/duodenitis [K29.70, K29.90] INVALID FOR*03/15/2012 Acute gastritis without mention of hemorrhage [*INVALID FOR*03/15/2012 Irritable bowel syndrome [K58.9] INVALID FOR* Abdominal pain, chronic, generalized [R10.84, G*INVALID FOR*04/18/2018 ASCUS (atypical squamous cells of undetermined *INVALID FOR*04/18/2018 Myofascial pain [M79.18] INVALID FOR*04/18/2018 Pain of left thumb [M79.645] INVALID FOR*04/18/2018 Raynaud's phenomenon without gangrene [I73.00] INVALID FOR* Abnormal mammogram [R92.8] INVALID FOR* Prescriptions ordered this encounter Disp Refills Start End FLUTICASONE 100 MCG-VILANTEROL 25 MC* 1 Ea* 1 10/16/2018 Route: INHALATION Sig: Inhale 1 Inhalation as instructed once daily. Medications Discontinued During This Encounter mometasone (ASMANEX) 220 mcg (60 dos* 1 In* 5 09/12/2018 10/16/2018 Route: INHALATION Sig: Inhale 1 Puff as instructed twice daily. Disc: Clinical Decision Encounter Status:Closed by HADLEY BOWSER MD on 10/16/18 CBC-COMPLETE BLOOD CNT Collected: 10/14/2018 Status: F Source: [place] NO DIFF 9:22 AM REPOSITORY TYPE CODE TESTS RESULT OUT OF RANGE REFERENCE UNITS LAB L100.1000 4.4-11.0 K/mm3 Normal WBC 9.0 LAB L100.1200 4.2-5.4 M/mm3 Normal RBC 4.58 LAB L100.1300 12.0-15.0 g/dl Normal HGB 14.7 LAB L100.1400 37-47 % Normal HCT 44.8 LAB L100.1500 81-99 fL Normal MCV 97.8 LAB L100.1600 27.0-32.0 pg High MCH 32.1 LAB L100.1700 32-36 g/gl Normal MCHC 32.8 LAB L100.1810 11.6-14.6 % Normal RDW CV 12.8 LAB L100.1820 35.1-43.9 fl High RDW SD 45.7 LAB L100.1900 150-450 K/mm3 Normal PLT 164 LAB L100.2000 6.2-12.0 fl Normal MPV 11.6 Performed By: #### L100.0500 #### [facility] [address] [place], [place], [id number] PROTHROMBIN TIME W/INR Collected: 10/14/2018 Status: F Source: [place] 9:22 AM REPOSITORY TYPE CODE TESTS RESULT OUT OF RANGE REFERENCE UNITS LAB L300.4150 11.7-14.9 SECONDS Normal PROTIME 12.8 LAB L300.4200 Normal INR 1.0 Performed By: #### L300.3900, L300.4310 #### [facility] [address] [place], [place], [address] PARTIAL THROMBOPLAST Collected: 10/14/2018 Status: F Source: [place] TIME 9:22 AM REPOSITORY TYPE CODE TESTS RESULT OUT OF RANGE REFERENCE UNITS LAB L300.4310 24.1-36.2 Seconds Normal PTT 31.3 Performed By: #### L300.3900, L300.4310 #### [facility] [address] [place], [address] TYPE AND SCREEN Collected: 10/14/2018 Status: F Source: [place] 9:22 AM REPOSITORY Order Comment: Surgery Date: 10/23/18 Hx of Preganancy in last 3 Months No Ever experience any problems with transfusion(s)? N Hx of Transfusion in last 3 Months N Reason for Type AND Screen/Red Cells: SURGERY SURGICAL PROCEDURE: LAP OOHOVECTOMY TYPE CODE TESTS RESULT OUT OF RANGE REFERENCE UNITS LAB B10.0800 O Normal BLOOD TYPE GEL NEGATIVE LAB B100.4000 Normal Antibody NEGATIVE Screen Performed By: #### B101.7475 #### [facility] [address] [facility] [place], [address] CBC AND DIFFERENTIAL Collected: 10/01/2018 Status: F Source: [place] 1:33 PM [facility] REPOSITORY TYPE CODE TESTS RESULT OUT OF REFERENCE UNITS RANGE LAB WBC 3.70-11.00 k/uL WBC 7.67 LAB RBC 3.90-5.20 m/uL RBC 5.11 LAB HGB 11.5-15.5 g/dL High Hemoglobin 16.5 LAB HCT 36.0-46.0 % High Hematocrit 48.4 LAB MCV 80.0-100.0 fL MCV 94.7 LAB MCH 26.0-34.0 pG MCH 32.3 LAB MCHC 30.5-36.0 g/dL MCHC 34.1 LAB RDWCV 11.5-15.0 % RDW-CV 12.2 LAB PLTCT 150-400 k/uL Platelet Count 174 LAB MPV 9.0-12.7 fL MPV 12.2 LAB ANEUT % Neut% 47.3 LAB AANEUT 1.45-7.50 k/uL Abs Neut 3.61 LAB ALYMP % Lymph% 43.4 LAB AALYMP 1.00-4.00 k/uL Abs Lymph 3.33 LAB AMONO % [facility]% 6.9 LAB AAMONO <0.87 k/uL Abs [facility] 0.53 LAB AEOS % Eosin% 1.7 LAB AAEOS <0.46 k/uL Abs Eosin 0.13 LAB ABASO % Baso% 0.7 LAB AABASO <0.11 k/uL Abs Baso 0.05 LAB AUNRBC 0 /100 WBC NRBCs 0.0 LAB ABNRBC <0.01 k/uL Absolute nRBC <0.01 LAB DTYP DTYPE Auto Diff Performed By: #### CBCDIF, SERIMM, IGE #### [place] [address] IMMUNOGLOBULINS MAURICIO Collected: 10/01/2018 Status: F Source: [place] 1:33 PM [facility] REPOSITORY TYPE CODE TESTS RESULT OUT OF RANGE REFERENCE UNITS LAB IGG 717-1411 mg/dL IgG 882 LAB IGA 78-391 mg/dL IgA 190 LAB IGM 53-334 mg/dL IgM 176 Performed By: #### CBCDIF, SERIMM, IGE #### [place] [address] IGE Collected: 10/01/2018 Status: F Source: [place] 1:33 PM [facility] REPOSITORY TYPE CODE TESTS RESULT OUT OF RANGE REFERENCE UNITS LAB IGE <114 kU/L IgE 67.3 Performed By: #### CBCDIF, SERIMM, IGE #### [place] [address] PROGRESS Observed: 10/01/2018 Status: COMPLETED Source: [place] 1:08 PM [facility] REPOSITORY HNO ID: [id number] Author: Laura (Rt) Bryn Hubbard Service: (none) Author Type: Pharmacy Innovation Assistant Type: Progress Notes Filed: 10/01/2018 1:08 PM Note Text: Radiology Service Progress Note PATIENT NAME: Anne Kuhn DATE OF SERVICE: October 01, 2018 TIME: 1:08 PM PATIENT IDENTITY VERIFICATION COMPLETED USING TWO (2) METHODS: Patient confirmed name verbally and Date of . PATIENT GENDER DATA: Female. status: : No status: NO. PATIENT RELEVANT IMPLANT DATA REVIEWED: Not Applicable RADIOLOGY DEPARTMENT: General X-ray: Exam(s) Completed: Chest X-Ray PERIPHERAL IV DATA: Not applicable SIGNED BY: RT Osmel October 01, 2018 1:08 PM XR CHEST 2V FRONTAL/LAT Observed: 10/01/2018 Status: F Source: [place] 1:07 PM [facility] REPOSITORY * * *Final Report* * * DATE OF EXAM: Oct 01 2018 1:07PM WRX [id number] - XR CHEST 2V FRONTAL/LAT / PROCEDURE REASON: multiple diagnoses * * * * Physician Interpretation * * * * EXAMINATION: CHEST RADIOGRAPH (2 VIEW FRONTAL and LATERAL) CLINICAL HISTORY: Persistent asthma without complication, unspecified asthma severity Post-nasal drip MQ: XC2_5 Comparison: 08/20/2014 RESULT: Lines, tubes, and devices: None. Lungs and pleura: No consolidation. No lung mass. No pleural effusion. Cardiomediastinal silhouette: Normal cardiomediastinal silhouette. Other: . IMPRESSION: No acute radiographic abnormality. Budget Record Clerk: PSCB Transcribe Date/Time: Oct 01 2018 3:39P Dictated by : NATACHA NUNEZ MD This examination was interpreted and the report reviewed and electronically signed by: NATACHA NUNEZ MD on Oct 01 2018 3:39PM EST [id number] Observed: 09/27/2018 Status: COMPLETED Source: [place] 10:30 AM [facility] REPOSITORY Office Visit (PULMWS) HATTIEANNE Debbie ([id number]) 1985 F Date Time Provider Department 09/27/18 10:30 AM HADLEY BOWSER During your visit today, we recorded the following information about you: Pulse Respiration Blood pressure Weight 72/minute 16/minute 124/68 65.8 kg Height 1.524 m Hadley Bowser MD 09/27/2018 11:44 AM Addendum Intake information documented in the prior visit with Marisa Petush, DI[employer]OND WHEEL [employer]GER today. ROS: General: Generally feels complains of chronic cough. Appetite good. Eyes, Ears, nose, throat: notes post nasal drip. notes rhinorrhea. denies purulent nasal discharge. denies epistaxis. denies hoarseness. Vision stable. Cardiac: denies angina, denies edema, denies orthopnea. GI: notes heartburn. notes dysphagia/globus sensation. denies diarrhea. Uro/DRIVER WHEELCHAIR: denies dysuria. denies hesitancy. denies nocturia. Menses: hysterectomy Musculoskeletal: denies pain. Neuro: denies headache, denies focal weakness. denies tremor. Skin: denies rash. Otherwise negative. Reviewed with patient, confirmed as documented by Sridevi Tang LPN. TO Hadley Bowser MD 09/27/2018 12:00 PM Signed [facility] Consultation Note, 09/27/2018: Introduction: The patient is seen in consultation today for evaluation of asthma. This consultation is requested by Beatrice Camargo CNP and Yassine Link MD. A copy of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 delivery. Reviewed difference between maintenance and rescue inhalers. - Robitussin with codeine refilled. Patient advised no further refills after this - CONSULT TO PULMONARY MEDICINE for further evaluation and recommendations - Follow-up in one week if no improvement or sooner if worsening 2. Cough - ICD9: 786.2, ICD10: R05 As above - CODEINE 10 MG-GUAIFENESIN 100 MG/5 ML ORAL LIQUID Prescription instructions reviewed with patient as applicable. Potential red flag symptoms discussed with the patient. Reviewed appropriate action plan to take if red flag symptoms occur. Patient agreeable to treatment plan. Beatrice Camargo, INFORMATICS COORDINATOR.FANNY Camargo APRN.FANNY 09/12/2018 3:22 PM Signed Start all medications as prescribed Ventolin inhaler is for emergency use (shortness of breath, wheezing). Asmanex is for maintenance, must be used daily as prescribed for effectiveness. Not for emergency use. Referring Provider: YASSINE LINK [[id number]] Allergies As of Date: 09/12/2018 Noted Allergy Reaction BEES 06/23/2011 14 - Other: See Comments Comments: Pt had swelling, was given epipen at ER. MORPHINE 11/10/2014 2 - Rash Comments: Left arm turned red when given IV morphine PENICILLINS 02/14/2011 14 - Other: See Comments Comments: patient refuses due to family allergy to pcn TESSALON (BENZONATATE) 11/03/2017 2 - Rash VALIUM (DIAZEPAM) 08/03/2015 4 - Hives Comments: Rash on chest region only Date Reviewed: 09/12/2018 Reviewed by: Cheryl Barnes Short Haul Driver - Fully Assessed Reason for Visit: URI cough not improving [Other] Primary Visit Diagnosis:Mild persistent asthma with exacerbation [J45.31] Other Visit Diagnosis:Cough [R05] Order(s):CONSULT TO PULMONARY MEDICINE [[id number]] Order #: [id number]: 1 mometasone (ASMANEX) 220 mcg (60 doses) aepbInhale 1 Puff as instructed twice daily.Disp: 1 InhalerRfl: 5 montelukast (SINGULAIR) 10 mg tabletTake 1 tablet by mouth daily at bedtime.Disp: 30 tabletRfl: 5 cetirizine (ZYRTEC) 10 mg tabletTake 1 tablet by mouth once daily.Disp: 30 tabletRfl: 5 codeine-guaiFENesin (ROBITUSSIN AC) 10-100 mg/5 mL syrupTake 5 mL by mouth three times daily as needed for Cough for up to 7 days. May cause drowsiness.Disp: 105 mLRfl: 0 Prescriptions as of 09/12/2018 Sig: MOMETASONE 220 MCG (60 DOSES)* Inhale 1 Puff as instructed t* ALBUTEROL SULFATE 2.5 MG/3 ML* Use 3 mL via nebulizer three * ALBUTEROL SULFATE HFA 90 MCG/* INHALE TWO PUFFS BY MOUTH JUVE* PANTOPRAZOLE 20 MG TABLET,DEL* Take 2 tablets by mouth once * PREDNISONE 10 MG TABLET Take 4 tabs daily for 3 days,* DOXYCYCLINE MONOHYDRATE 100 M* Take 1 capsule by mouth twice* EPINEPHRINE 0.3 MG/0.3 ML INJ* GIVE ONE DOSE INTO LATERAL TH* LORAZEPAM 0.5 MG TABLET Take by mouth twice daily as * TRAZODONE 50 MG TABLET Take 1 tablet by mouth daily * COMPOUNDED PRESCRIPTION NEBULIZER, TUBING, AND MOUTHP* BUSPIRONE 30 MG TABLET Take 1 tablet by mouth twice * ARIPIPRAZOLE 10 MG TABLET Take 1 tablet by mouth once d* MONTELUKAST 10 MG TABLET Take 1 tablet by mouth daily * CETIRIZINE 10 MG TABLET Take 1 tablet by mouth once d* CODEINE 10 MG-GUAIFENESIN 100* Take 5 mL by mouth three time* Problem List As Of Date 09/12/2018 Noted Resolved BIPOLAR DISORDER NOS [F31.9] INVALID FOR* Asthma [J45.909] INVALID FOR* Mastodynia [N64.9] INVALID FOR* ESOPHAGEAL REFLUX [K21.9] INVALID FOR* Pruritus of genital organs [L29.3] INVALID FOR*01/03/2011 TOBACCO USE DISORDER [F17.200] INVALID FOR* HIDRADENITIS [L73.2] INVALID FOR* Lumbago [M54.5] INVALID FOR*04/18/2018 Dysuria [R30.0] INVALID FOR*01/03/2011 Abdominal pain, generalized [R10.84] INVALID FOR*01/03/2011 Abdominal pain, epigastric [R10.13] INVALID FOR*03/15/2012 Disturbance of skin sensation [R20.9] INVALID FOR*01/03/2011 Cervicalgia [M54.2] INVALID FOR*01/03/2011 Nausea [R11.0] INVALID FOR* Abdominal pain, right upper quadrant [R10.11] INVALID FOR*03/15/2012 Gastritis/duodenitis [K29.70, K29.90] INVALID FOR*03/15/2012 Acute gastritis without mention of hemorrhage [*INVALID FOR*03/15/2012 Irritable bowel syndrome [K58.9] INVALID FOR* Abdominal pain, chronic, generalized [R10.84, G*INVALID FOR*04/18/2018 ASCUS (atypical squamous cells of undetermined *INVALID FOR*04/18/2018 Myofascial pain [M79.18] INVALID FOR*04/18/2018 Pain of left thumb [M79.645] INVALID FOR*04/18/2018 Raynaud's phenomenon without gangrene [I73.00] INVALID FOR* Abnormal mammogram [R92.8] INVALID FOR* Other instructions from your clinician: Start all medications as prescribed Ventolin inhaler is for emergency use (shortness of breath, wheezing). Asmanex is for maintenance, must be used daily as prescribed for effectiveness. Not for emergency use. Prescriptions ordered this encounter Disp Refills Start End MOMETASONE 220 MCG (60 DOSES) BREATH* 1 In* 5 09/12/2018 Route: INHALATION Sig: Inhale 1 Puff as instructed twice daily. MONTELUKAST 10 MG TABLET 30 t* 5 09/12/2018 Route: ORAL Sig: Take 1 tablet by mouth daily at bedtime. CETIRIZINE 10 MG TABLET 30 t* 5 09/12/2018 Route: ORAL Sig: Take 1 tablet by mouth once daily. CODEINE 10 MG-GUAIFENESIN 100 MG/5 M* 105 * 0 09/12/2018 09/19/2018 Class: Print RX Route: ORAL Sig: Take 5 mL by mouth three times daily as needed for Cough for up to 7 days. May cause drowsiness. Medications Discontinued During This Encounter mometasone (ASMANEX) 220 mcg (60 dos* 1 In* 5 10/01/2017 09/12/2018 Route: INHALATION Sig: Inhale 1 Puff as instructed twice daily. Disc: Reason for discontinue is not on file. codeine-guaiFENesin (ROBITUSSIN AC) * 35 mL 0 09/04/2018 09/12/2018 Class: Print RX Route: ORAL Sig: Take 5 mL by mouth at bedtime as needed for Cough for up to 7 days. May cause drowsiness. Disc: Reason for discontinue is not on file. Encounter Status:Closed by MONTSERRATBEATRICE FANNY on 09/12/18 PROGRESS Observed: 09/04/2018 Status: COMPLETED Source: [place] 11:35 AM [facility] [place] REPOSITORY HNO ID: [id number] Author: Aliyah Reyes) Moi Service: (none) Author Type: Nurse Practitioner Type: Progress Notes Filed: 09/04/2018 11:46 AM Note Text: This note was created using HealthSpringriter. Subjective Anne Kuhn is a 32 year old female. The history is provided by the patient. No high school foreign language tutor was used. Cough This is a new problem. Episode onset: x 1 week. The problem occurs constantly. The problem has been gradually worsening. The cough is non-productive. Maximum temperature: subjective fever. Associated symptoms include chills, sore throat, shortness of breath and wheezing. Pertinent negatives include no chest pain, no sweats, no weight loss, no ear congestion, no ear pain, no headaches, no rhinorrhea, no myalgias and no eye redness. Treatments tried: VIELKA. She is a smoker. Her past medical history is significant for asthma. Sore Throat Associated symptoms include coughing and shortness of breath. Pertinent negatives include no ear pain or headaches. Review of Systems Constitutional: Positive for chills. Negative for weight loss. HENT: Positive for sore throat. Negative for ear pain and rhinorrhea. Eyes: Negative for redness. Respiratory: Positive for cough, shortness of breath and wheezing. Cardiovascular: Negative for chest pain. Musculoskeletal: Negative for myalgias. Neurological: Negative for headaches. Objective BP 100/66 Pulse 88 Temp 36.8 ?C (98.3 ?F) Resp 16 Wt 67.1 kg (148 lb) LMP 05/16/2015 SpO2 99% BMI 28.90 kg/m? Physical Exam Constitutional: She appears well-developed and well-nourished. HENT: Head: Normocephalic and atraumatic. Eyes: Conjunctivae are normal. Neck: Normal range of motion. Neck supple. Cardiovascular: Normal rate, regular rhythm and normal heart sounds. No murmur heard. Pulmonary/Chest: Effort normal. No respiratory distress. She has decreased breath sounds. She has wheezes. She has rales. Moist non-productive cough Lymphadenopathy: She has no cervical adenopathy. Skin: Skin is warm. No rash noted. She is diaphoretic (slightly ). No erythema. ASSESSMENT/PLAN: 1. Asthma with acute exacerbation, unspecified asthma severity, unspecified whether persistent - ICD9: 493.92, ICD10: J45.901 (primary diagnosis) 2. Bronchitis - ICD9: 490, ICD10: J40 - PREDNISONE 10 MG TABLET - DOXYCYCLINE MONOHYDRATE 100 MG CAPSULE - CODEINE 10 MG-GUAIFENESIN 100 MG/5 ML ORAL LIQUID - off work letter provided IMCHEL SeymourOV Observed: 09/04/2018 Status: COMPLETED Source: [place] 11:20 AM [facility] REPOSITORY [facility] ANNE KUHN ([id number]) 1985 F Date Time Provider Department 09/04/18 11:20 AM [facility]UR[facility]FANNY[facility] During your visit today, we recorded the following information about you: Temperature Pulse Respiration Blood pressure 98.3 degrees 88/minute 16/minute 100/66 Weight 67.1 kg Aliyah Churchill APRN.CNP 09/04/2018 11:46 AM Signed This note was created using HealthSpringriter. Subjective Anne Kuhn is a 32 year old female. The history is provided by the patient. No high school foreign language tutor was used. Cough This is a new problem. Episode onset: x 1 week. The problem occurs constantly. The problem has been gradually worsening. The cough is non- productive. Maximum temperature: subjective fever. Associated symptoms include chills, sore throat, shortness of breath and wheezing. Pertinent negatives include no chest pain, no sweats, no weight loss, no ear congestion, no ear pain, no headaches, no rhinorrhea, no myalgias and no eye redness. Treatments tried: VIELKA. She is a smoker. Her past medical history is significant for asthma. Sore Throat Associated symptoms include coughing and shortness of breath. Pertinent negatives include no ear pain or headaches. Review of Systems Constitutional: Positive for chills. Negative for weight loss. HENT: Positive for sore throat. Negative for ear pain and rhinorrhea. Eyes: Negative for redness. Respiratory: Positive for cough, shortness of breath and wheezing. Cardiovascular: Negative for chest pain. Musculoskeletal: Negative for myalgias. Neurological: Negative for headaches. Objective BP 100/66 Pulse 88 Temp 36.8 ?C (98.3 ?F) Resp 16 Wt 67.1 kg (148 lb) LMP 05/16/2015 SpO2 99% BMI 28.90 kg/m? Physical Exam Constitutional: She appears well-developed and well-nourished. HENT: Head: Normocephalic and atraumatic. Eyes: Conjunctivae are normal. Neck: Normal range of motion. Neck supple. Cardiovascular: Normal rate, regular rhythm and normal heart sounds. No murmur heard. Pulmonary/Chest: Effort normal. No respiratory distress. She has decreased breath sounds. She has wheezes. She has rales. Moist non-productive cough Lymphadenopathy: She has no cervical adenopathy. Skin: Skin is warm. No rash noted. She is diaphoretic (slightly ). No erythema. ASSESSMENT/PLAN: 1. Asthma with acute exacerbation, unspecified asthma severity, unspecified whether persistent - ICD9: 493.92, ICD10: J45.901 (primary diagnosis) 2. Bronchitis - ICD9: 490, ICD10: J40 - PREDNISONE 10 MG TABLET - DOXYCYCLINE MONOHYDRATE 100 MG CAPSULE - CODEINE 10 MG-GUAIFENESIN 100 MG/5 ML ORAL LIQUID - off work letter provided Aliyah Churchill APRN.COIN [employer]SE FRAMER Referring Provider: SELF [[id number]] Allergies As of Date: 09/04/2018 Noted Allergy Reaction BEES 06/23/2011 14 - Other: See Comments Comments: Pt had swelling, was given epipen at ER. MORPHINE 11/10/2014 2 - Rash Comments: Left arm turned red when given IV morphine PENICILLINS 02/14/2011 14 - Other: See Comments Comments: patient refuses due to family allergy to pcn TESSALON (BENZONATATE) 11/03/2017 2 - Rash VALIUM (DIAZEPAM) 08/03/2015 4 - Hives Comments: Rash on chest region only Date Reviewed: 09/04/2018 Reviewed by: Thai Juárez LPN - Fully Assessed Reason for Visit: Cough [28] Cmt: nonproductive x 1 week; history of asthma Sore Throat [200] Cmt: no fever Primary Visit Diagnosis:Asthma with acute exacerbation, unspecified asthma severity, unspecified whether persistent [J45.901] Other Visit Diagnosis:Bronchitis [J40] Order(s):predniSONE (DELTASONE) 10 mg tabletTake 4 tabs daily for 3 days, then 2 tabs daily for 3 days, then 1 tab daily for 3 days with food.Disp: 21 tabletRfl: 0 doxycycline monohydrate (MONODOX) 100 mg capsuleTake 1 capsule by mouth twice daily for 10 days.Disp: 20 capsuleRfl: 0 codeine-guaiFENesin (ROBITUSSIN AC) 10-100 mg/5 mL syrupTake 5 mL by mouth at bedtime as needed for Cough for up to 7 days. May cause drowsiness.Disp: 35 mLRfl: 0 Prescriptions as of 09/04/2018 Sig: ALBUTEROL SULFATE HFA 90 MCG/* INHALE TWO PUFFS BY MOUTH JUVE* LORAZEPAM 0.5 MG TABLET Take by mouth twice daily as * MOMETASONE 220 MCG (60 DOSES)* Inhale 1 Puff as instructed t* PANTOPRAZOLE 20 MG TABLET,DEL* TAKE TWO TABLETS BY MOUTH HORACE* TRAZODONE 50 MG TABLET Take 1 tablet by mouth daily * BUSPIRONE 30 MG TABLET Take 1 tablet by mouth twice * ARIPIPRAZOLE 10 MG TABLET Take 1 tablet by mouth once d* PREDNISONE 10 MG TABLET Take 4 tabs daily for 3 days,* DOXYCYCLINE MONOHYDRATE 100 M* Take 1 capsule by mouth twice* CODEINE 10 MG-GUAIFENESIN 100* Take 5 mL by mouth at bedtime* EPINEPHRINE 0.3 MG/0.3 ML INJ* GIVE ONE DOSE INTO LATERAL TH* ALBUTEROL SULFATE 2.5 MG/3 ML* Use 3 mL via nebulizer three * COMPOUNDED PRESCRIPTION NEBULIZER, TUBING, AND MOUTHP* Problem List As Of Date 09/04/2018 Noted Resolved BIPOLAR DISORDER NOS [F31.9] INVALID FOR* Asthma [J45.909] INVALID FOR* Mastodynia [N64.9] INVALID FOR* ESOPHAGEAL REFLUX [K21.9] INVALID FOR* Pruritus of genital organs [L29.3] INVALID FOR*01/03/2011 TOBACCO USE DISORDER [F17.200] INVALID FOR* HIDRADENITIS [L73.2] INVALID FOR* Lumbago [M54.5] INVALID FOR*04/18/2018 Dysuria [R30.0] INVALID FOR*01/03/2011 Abdominal pain, generalized [R10.84] INVALID FOR*01/03/2011 Abdominal pain, epigastric [R10.13] INVALID FOR*03/15/2012 Disturbance of skin sensation [R20.9] INVALID FOR*01/03/2011 Cervicalgia [M54.2] INVALID FOR*01/03/2011 Nausea [R11.0] INVALID FOR* Abdominal pain, right upper quadrant [R10.11] INVALID FOR*03/15/2012 Gastritis/duodenitis [K29.70, K29.90] INVALID FOR*03/15/2012 Acute gastritis without mention of hemorrhage [*INVALID FOR*03/15/2012 Irritable bowel syndrome [K58.9] INVALID FOR* Abdominal pain, chronic, generalized [R10.84, G*INVALID FOR*04/18/2018 ASCUS (atypical squamous cells of undetermined *INVALID FOR*04/18/2018 Myofascial pain [M79.18] INVALID FOR*04/18/2018 Pain of left thumb [M79.645] INVALID FOR*04/18/2018 Raynaud's phenomenon without gangrene [I73.00] INVALID FOR* Abnormal mammogram [R92.8] INVALID FOR* Prescriptions ordered this encounter Disp Refills Start End PREDNISONE 10 MG TABLET 21 t* 0 09/04/2018 09/13/2018 Sig: Take 4 tabs daily for 3 days, then 2 tabs daily for 3 days, then 1 tab daily for 3 days with food. XUNNNATLJBAZZVQ-CBXGFBVKUDZZWRQ-KT 2* 240 * 0 09/04/2018 09/04/2018 Route: ORAL Sig: Take 10 mL by mouth four times daily as needed for up to 7 days. DOXYCYCLINE MONOHYDRATE 100 MG CAPSU* 20 c* 0 09/04/2018 09/14/2018 Route: ORAL Sig: Take 1 capsule by mouth twice daily for 10 days. CODEINE 10 MG-GUAIFENESIN 100 MG/5 M* 35 mL 0 09/04/2018 09/11/2018 Class: Print RX Route: ORAL Sig: Take 5 mL by mouth at bedtime as needed for Cough for up to 7 days. May cause drowsiness. Medications Discontinued During This Encounter predniSONE (DELTASONE) 10 mg tablet 21 t* 0 07/25/2018 09/04/2018 Sig: Take 4 tabs daily for 3 days, then 2 tabs daily for 3 days, then 1 tab daily for 3 days with food. Disc: Reason for discontinue is not on file. Wgxaqqtmjcggpid-Itztckymm-DX (BROMFE* 240 * 0 07/25/2018 09/04/2018 Route: ORAL Sig: Take 10 mL by mouth four times daily as needed for up to 7 days. Disc: Reason for discontinue is not on file. doxycycline monohydrate (MONODOX) 10* 20 c* 0 07/22/2018 09/04/2018 Route: ORAL Sig: Take 1 capsule by mouth twice daily for 10 days. Disc: Reason for discontinue is not on file. Fsvnkubwkzflxsu-Omrsvahws-ON (BROMFE* 240 * 0 09/04/2018 09/04/2018 Route: ORAL Sig: Take 10 mL by mouth four times daily as needed for up to 7 days. Disc: Reason for discontinue is not on file. Letter Text Aliyah Churchill CNP [address], [place] [address] 09/04/2018 Anne Kuhn [facility]# [id number] [address] [place] [id number] TO WHOM IT MAY CONCERN: This is to certify that Ms. Anne Kuhn has been under my care for illness and was unable to work from 09/04/2018 through 09/05/2018 and may return to work on 09/06/2018. Sincerely yours, Aliyah Churchill CNP Encounter Status:Closed by ALIYAH CHURCHILL CNP on 09/04/18 PROGRESS Observed: 07/25/2018 Status: COMPLETED Source: [place] 3:57 PM [facility] [place] REPOSITORY HNO ID: [id number] Author: Yessica Valenzuela (Ofelia) Marlo Service: (none) Author Type: Nurse Practitioner Type: Progress Notes Filed: 08/01/2018 4:18 PM Note Text: Subjective HPI Patient presents with: Cough, wheezing x 1 week. Seen by PCP 07/22, dx with Sinobronchitis and asthma exacerbation. Taking Doxycycline, but no relief yet. Review of Systems Constitutional: Positive for malaise/fatigue. Negative for chills and fever. HENT: Positive for congestion. Negative for ear pain and sore throat. Respiratory: Positive for cough and wheezing. Gastrointestinal: Negative for abdominal pain, diarrhea, nausea and vomiting. Skin: Negative for rash. Neurological: Negative for headaches. PAST MEDICAL HISTORY Diagnosis Date - Abdominal pain - Abdominal pain, epigastric - ASCUS (atypical squamous cells of undetermined significance) on Pap smear 09/24/2013 - ASTHMA UNSPECIFIED 07/26/2006 - BIPOLAR DISORDER NOS 07/26/2006 - Esophageal reflux 08/23/2006 - Hidradenitis 01/15/2007 - Irritable bowel syndrome 03/15/2012 - Mastodynia 08/23/2006 - Tobacco use disorder 12/25/2006 PAST SURGICAL HISTORY Procedure Laterality Date - BREAST BIOPSY NEEDLE LEFT Left 03/18/2018 - BREAST BIOPSY W/ULTRASOUND GUIDANCE Left 03/02/2017 - COLONOSCOP W/ OR W/O BRSH SPEC 06/11/2012 Colonoscopy - COLONOSCOP W/ OR W/O BRSH SPEC 11/08/2016 Colonoscopy mac - EGD W/O BRSH SPECIMEN W/BX 10/26/09 - EGD W/O OR W/BRUSH/WASH 07/21/2011 EGD - EGD W/O OR W/BRUSH/WASH 11/08/2016 EGD mac - EXT HYSTERECTOMY,W/PARTIAL VAGINECTO 04/2015 - L'SCOPE DX W/WO BRUSHINGS/WASHINGS 2013 Laparoscopy twice - PAST SURGICAL HISTORY OF dental extraction ALLERGIES Bees; Morphine; Penicillins; Tessalon [Benzonatate]; Valium [Diazepam] MEDICATIONS doxycycline monohydrate (MONODOX) 100 mg capsule Take 1 capsule by mouth twice daily for 10 days. albuterol HFA (VENTOLIN HFA) 90 mcg/actuation inhaler INHALE TWO PUFFS BY MOUTH EVERY 6 HOURS NEEDED FOR WHEEZING OR SHORTNESS OF BREATH EPINEPHrine (EPIPEN) 0.3 mg/0.3 mL auto-injector GIVE ONE DOSE INTO LATERAL THIGH FOR ALLERGIC REACTION. REPEAT DOSE IN 5-15 MINUTES IF NOT IMPROVING mometasone (ASMANEX) 220 mcg (60 doses) aepb Inhale 1 Puff as instructed twice daily. albuterol (PROVENTIL) 2.5 mg /3 mL (0.083 %) nebulizer solution Use 3 mL via nebulizer three times daily as needed. OVER 5-15 MINUTES. FOR WHEEZING AND SHORTNESS OF BREATH. pantoprazole DR (PROTONIX) 20 mg tablet TAKE TWO TABLETS BY MOUTH DAILY traZODone (DESYREL) 50 mg tablet Take 1 tablet by mouth daily at bedtime. [facility] Nebulizer NEBULIZER, TUBING, AND MOUTHPIECE FOR HOME USE. DX: J45.909 busPIRone HCl 30 mg tablet Take 1 tablet by mouth twice daily. ARIPiprazole (ABILIFY) 10 mg tablet Take 1 tablet by mouth once daily. predniSONE (DELTASONE) 10 mg tablet Take 4 tabs daily for 3 days, then 2 tabs daily for 3 days, then 1 tab daily for 3 days with food. Fjzyjtmqlsjeozf-Nucibofrc-EJ (BROMFED DM) 2-30-10 mg/5 mL syrup Take 10 mL by mouth four times daily as needed for up to 7 days. LORazepam (ATIVAN) 0.5 mg tab Take by mouth twice daily as needed. FAMILY HISTORY Problem Relation Age of Onset - Asthma Mother - Headache Mother migraine - Psychiatry Mother depression, - Arthritis Mother chronic pain, fibromyalgia - Cancer Mother ovarian (ovarian remit syndrome had since 1991 with a complete hysterectomy)/ cancer of foot - Heart Mother disease - other (pneumonia) Mother lupus - Hypertension Father - Heart Father - Diabetes Paternal Grandmother - Stroke Paternal Grandmother - Diabetes Paternal Grandfather - Heart Paternal Grandfather - Asthma Maternal Grandmother - Cancer Maternal Grandfather lymph node Social History Substance Use Topics - Smoking status: Current Every Day Smoker Packs/day: 1.00 Years: 14.00 Types: Cigarettes - Smokeless tobacco: Never Used - Alcohol use No Objective Physical Exam Constitutional: She is well-developed, well-nourished, and in no distress. HENT: Head: Normocephalic. Right Ear: Tympanic membrane, external ear and ear canal normal. Left Ear: Tympanic membrane, external ear and ear canal normal. Nose: Rhinorrhea present. Right sinus exhibits no maxillary sinus tenderness and no frontal sinus tenderness. Left sinus exhibits no maxillary sinus tenderness and no frontal sinus tenderness. Mouth/Throat: Posterior oropharyngeal erythema (PND) present. Eyes: Conjunctivae are normal. Neck: Normal range of motion. Neck supple. Cardiovascular: Normal rate, regular rhythm and normal heart sounds. Pulmonary/Chest: Effort normal. No respiratory distress. She has wheezes (fine scattered exp wheeze). She has rhonchi (scattered rhonchi, good air exchange). Abdominal: Soft. She exhibits no distension. There is no tenderness. Lymphadenopathy: She has no cervical adenopathy. Skin: Skin is warm and dry. No rash noted. Nursing note and vitals reviewed. ASSESSMENT/PLAN: 1. Exacerbation of asthma, unspecified asthma severity, unspecified whether persistent - ICD9: 493.92, ICD10: J45.901 - Exacerbation treatment of Prednisone burst with long taper- see orders - Cont. doxycycline - Encouraged home nebulizer treatments routinely x 3-5 days - Avoidance of triggers recommended - Follow up in 3-5 days with PCP if symptoms are not improving or worsening Prescription instructions reviewed with patient as applicable. Patient advised if symptoms do not improve or if symptoms worsen sooner, to contact their primary care physician. Potential red flag symptoms discussed with the patient. Reviewed appropriate action plan to take if red flag symptoms occur. Patient agreeable to treatment plan. Yessica Sellers APRN.FANNY CNOV Observed: 07/25/2018 Status: COMPLETED Source: [place] 11:30 AM [facility] REPOSITORY Office Visit (WSTR) HTATIEANNE Debbie ([id number]) 1985 F Date Time Provider Department 07/25/18 11:30 AM YESSICA SELLERS (OFELIA) WSTR During your visit today, we recorded the following information about you: Temperature Pulse Blood pressure Weight 97.6 degrees 78/minute 110/70 64.4 kg Yessica Sellers APRN.CNP 08/01/2018 4:18 PM Signed Subjective HPI Patient presents with: Cough, wheezing x 1 week. Seen by PCP 07/22, dx with Sinobronchitis and asthma exacerbation. Taking Doxycycline, but no relief yet. Review of Systems Constitutional: Positive for malaise/fatigue. Negative for chills and fever. HENT: Positive for congestion. Negative for ear pain and sore throat. Respiratory: Positive for cough and wheezing. Gastrointestinal: Negative for abdominal pain, diarrhea, nausea and vomiting. Skin: Negative for rash. Neurological: Negative for headaches. PAST MEDICAL HISTORY Diagnosis Date - Abdominal pain - Abdominal pain, epigastric - ASCUS (atypical squamous cells of undetermined significance) on Pap smear 09/24/2013 - ASTHMA UNSPECIFIED 07/26/2006 - BIPOLAR DISORDER NOS 07/26/2006 - Esophageal reflux 08/23/2006 - Hidradenitis 01/15/2007 - Irritable bowel syndrome 03/15/2012 - Mastodynia 08/23/2006 - Tobacco use disorder 12/25/2006 PAST SURGICAL HISTORY Procedure Laterality Date - BREAST BIOPSY NEEDLE LEFT Left 03/18/2018 - BREAST BIOPSY W/ULTRASOUND GUIDANCE Left 03/02/2017 - COLONOSCOP W/ OR W/O BRSH SPEC 06/11/2012 Colonoscopy - COLONOSCOP W/ OR W/O BRSH SPEC 11/08/2016 Colonoscopy mac - EGD W/O BRSH SPECIMEN W/BX 10/26/09 - EGD W/O OR W/BRUSH/WASH 07/21/2011 EGD - EGD W/O OR W/BRUSH/WASH 11/08/2016 EGD mac - EXT HYSTERECTOMY,W/PARTIAL VAGINECTO 04/2015 - L'SCOPE DX W/WO BRUSHINGS/WASHINGS 2014 Laparoscopy twice - PAST SURGICAL HISTORY OF dental extraction ALLERGIES Bees; Morphine; Penicillins; Tessalon [Benzonatate]; Valium [Diazepam] MEDICATIONS doxycycline monohydrate (MONODOX) 100 mg capsule Take 1 capsule by mouth twice daily for 10 days. albuterol HFA (VENTOLIN HFA) 90 mcg/actuation inhaler INHALE TWO PUFFS BY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 Positive findings: superficial cervical and posterior cervical adenopathy Lungs: Lungs clear to auscultation. No wheezing, rhonchi, rales + harsh cough Heart: RRR without murmur, gallop, or rubs. No ectopy ASSESSMENT/PLAN: 1. Sinobronchitis - ICD9: 473.9, 490, ICD10: J32.9, J40 (primary diagnosis) - Will begin treatment with as per antibiotic as written, see orders - The patient should also be given OTC decongestants prn, Cough syrup with codeine- Rx given for at night only and warm salt water gargles, throat lozenges and/or OTC throat spray as needed for the first 5- 7 days of treatment. - Supportive care with plenty of fluids, rest, and analgesia prn. - Follow up in 10 days if symptoms persist or worsen. - CODEINE 10 MG-GUAIFENESIN 100 MG/5 ML ORAL LIQUID - DOXYCYCLINE MONOHYDRATE 100 MG CAPSULE 2. Exacerbation of asthma, unspecified asthma severity, unspecified whether persistent - ICD9: 493.92, ICD10: J45.901 - Continue current meds - Avoidance of triggers recommended - CODEINE 10 MG-GUAIFENESIN 100 MG/5 ML ORAL LIQUID Gricelda Quezada APRN.FANNY PDMP website checked and validated. All prescriptions have been APPROPRIATELY filled. No suspicious activity was identified. 07/22/2018 by Gricelda Quezada APRN.FANNY Referring Provider: SELF [[id number]] Allergies As of Date: 07/22/2018 Noted Allergy Reaction BEES 06/23/2011 14 - Other: See Comments Comments: Pt had swelling, was given epipen at ER. MORPHINE 11/10/2014 2 - Rash Comments: Left arm turned red when given IV morphine PENICILLINS 02/14/2011 14 - Other: See Comments Comments: patient refuses due to family allergy to pcn TESSALON (BENZONATATE) 11/03/2017 2 - Rash VALIUM (DIAZEPAM) 08/03/2015 4 - Hives Comments: Rash on chest region only Date Reviewed: 07/22/2018 Reviewed by: Rhonda Al) FRED Zeng - Fully Assessed Reason for Visit: Cough [28] Cmt: gets with asthma Primary Visit Diagnosis:Sinobronchitis [J32.9, J40] Other Visit Diagnosis:Exacerbation of asthma, unspecified asthma severity, unspecified whether persistent [J45.901] Order(s):codeine-guaiFENesin (ROBITUSSIN AC) 10-100 mg/5 mL syrupTake 5 mL by mouth at bedtime as needed for Cough for up to 7 days. May cause drowsiness.Disp: 35 mLRfl: 0 doxycycline monohydrate (MONODOX) 100 mg capsuleTake 1 capsule by mouth twice daily for 10 days.Disp: 20 capsuleRfl: 0 Prescriptions as of 07/22/2018 Sig: ALBUTEROL SULFATE HFA 90 MCG/* INHALE TWO PUFFS BY MOUTH JUVE* EPINEPHRINE 0.3 MG/0.3 ML INJ* GIVE ONE DOSE INTO LATERAL TH* LORAZEPAM 0.5 MG TABLET Take by mouth twice daily as * MOMETASONE 220 MCG (60 DOSES)* Inhale 1 Puff as instructed t* ALBUTEROL SULFATE 2.5 MG/3 ML* Use 3 mL via nebulizer three * PANTOPRAZOLE 20 MG TABLET,DEL* TAKE TWO TABLETS BY MOUTH HORACE* TRAZODONE 50 MG TABLET Take 1 tablet by mouth daily * COMPOUNDED PRESCRIPTION NEBULIZER, TUBING, AND MOUTHP* BUSPIRONE 30 MG TABLET Take 1 tablet by mouth twice * ARIPIPRAZOLE 10 MG TABLET Take 1 tablet by mouth once d* CODEINE 10 MG-GUAIFENESIN 100* Take 5 mL by mouth at bedtime* DOXYCYCLINE MONOHYDRATE 100 M* Take 1 capsule by mouth twice* Problem List As Of Date 07/22/2018 Noted Resolved BIPOLAR DISORDER NOS [F31.9] INVALID FOR* Asthma [J45.909] INVALID FOR* Mastodynia [N64.9] INVALID FOR* ESOPHAGEAL REFLUX [K21.9] INVALID FOR* Pruritus of genital organs [L29.3] INVALID FOR*01/03/2011 TOBACCO USE DISORDER [F17.200] INVALID FOR* HIDRADENITIS [L73.2] INVALID FOR* Lumbago [M54.5] INVALID FOR*04/18/2018 Dysuria [R30.0] INVALID FOR*01/03/2011 Abdominal pain, generalized [R10.84] INVALID FOR*01/03/2011 Abdominal pain, epigastric [R10.13] INVALID FOR*03/15/2012 Disturbance of skin sensation [R20.9] INVALID FOR*01/03/2011 Cervicalgia [M54.2] INVALID FOR*01/03/2011 Nausea [R11.0] INVALID FOR* Abdominal pain, right upper quadrant [R10.11] INVALID FOR*03/15/2012 Gastritis/duodenitis [K29.70, K29.90] INVALID FOR*03/15/2012 Acute gastritis without mention of hemorrhage [*INVALID FOR*03/15/2012 Irritable bowel syndrome [K58.9] INVALID FOR* Abdominal pain, chronic, generalized [R10.84, G*INVALID FOR*04/18/2018 ASCUS (atypical squamous cells of undetermined *INVALID FOR*04/18/2018 Myofascial pain [M79.1] INVALID FOR*04/18/2018 Pain of left thumb [M79.645] INVALID FOR*04/18/2018 Raynaud's phenomenon without gangrene [I73.00] INVALID FOR* Abnormal mammogram [R92.8] INVALID FOR* Prescriptions ordered this encounter Disp Refills Start End CODEINE 10 MG-GUAIFENESIN 100 MG/5 M* 35 mL 0 07/22/2018 07/29/2018 Class: Print RX Route: ORAL Sig: Take 5 mL by mouth at bedtime as needed for Cough for up to 7 days. May cause drowsiness. DOXYCYCLINE MONOHYDRATE 100 MG CAPSU* 20 c* 0 07/22/2018 08/01/2018 Route: ORAL Sig: Take 1 capsule by mouth twice daily for 10 days. Encounter Status:Closed by GRICELDA QUEZADA on 07/22/18 EMERGENCY DEPARTMENT Observed: 07/22/2018 Status: F Source: [place] SUMMARY 10:39 AM REPOSITORY [facility] Medical Records Department [address] [place] [address] Emergency Department Summary 07/22/18 1036 MR#: [id number] Acct: [id number] Name: ANNE KUHN Rep #: [id number] : 1985 32 From: Grant Mercado MD PCP: Yassine Link MD Status: PRE ER - ER Visit Summary Date of Service: 07/22/18 Chief Complaint: Cough clear sputum History of Present Illness: The patient is a 32 F who was recently diagnosed with upper respiratory infection. She has recurrence of rhinorrhea, postnasal drainage, sore throat and cough productive of clear sputum. She is a smoker one pack per day. She has smoked since age 17. She denies fever, chills night sweats. She denies any ocular, visual or auditory symptoms. She denies any chest pain. There is no history of PE or DVT. She has no risk factors for either. She has no GI symptoms. Physical Examination: Vital signs were noted and heart rate is 114. HEENT exam is remarkable for boggy nasal mucosa with clear drainage. Trach is midline. There is no stridor. Right and left shotty anterior cervical lymphadenopathy noted. Heart is regular without murmur, gallop or rub. Lungs are clear to auscultation with good move air bilaterally. Lower extremity exam is unremarkable. Test Results: None Emergency Department Course and Treatment: Patient was informed she may have a cough for 4 weeks and she is smoker. She was informed it is in her best interest to quit smoking. Treatment Plan: Symptomatic treatment Disposition: Discharged to home Impression: Acute viral upper respiratory infection This note was generated with ME911 dictation software. It may contain incorrect words, spelling, and punctuation that were not noted in review of the chart prior to signing ED Disposition - Plan for ED Patient: Disposition: Home or Assisted Living Chief Complaint: Shortness of Breath Instructions: ED Upper Resp Infec No Abx Tx Referrals: Yassine Link MD [Primary Care Provider] - 10-14 Days if not better Additional Instructions: It is in your best interest to quit smoking. Because you are a smoker you may have a cough up to 4 weeks. What to do if you have Problems For any increased pain, shortness of breath, bleeding, nausea or vomiting, chest pain, or any unexpected problems, contact your Primary Care Provider. Call [facility] ([phone]) or report to the closest Emergency Room. Call 911 if necessary. 07/22/18 1039 <Electronically signed by Grant Mercado MD> Date Grant Mercado MD Cosigner Signature (If Indicated): Date CC: Yassine Link MD BREAST LIMITED Observed: 07/17/2018 Status: F Source: [place] UNILATERAL 2:25 PM REPOSITORY [facility] Imaging Services [address] [place], [place] [address] [address] Breast Limited Unilateral MR#: [id number] Acct: [id number] Name: ANNE KUHN Rep #: [id number] : 1985 F 32 From: Willy Hilliard MD PCP: Yassine Link MD Status: REG CLI Study: Breast Limited Unilateral Date of Exam: 07/17/18 Exam# [id number] Ordering Dr: Logan Cunningham MD STUDY: ULTRASOUND BREAST - LEFT REASON FOR EXAM: Female, 32 years old. Pain in the left breast. TECHNIQUE: Axial and longitudinal images of the LEFT breast were performed with a high resolution ultrasound transducer. COMPARISON: Comparison is made with prior mammogram done earlier in the day as well as prior ultrasound of the left breast dated February 05, 2018. FINDINGS: LEFT Breast: There is a 7 mm x 5 mm x 3 mm hypoechoic slightly irregular nodule seen at the 2:00 breast at 2 cm from the nipple. A biopsy is recommended. This also evidence of a 6 mm x 7 mm x 2 mm hypoechoic nodular density at the 2:00 position breast at 3 cm from nipple. This may represent a small lymph node. US/Breast Limited Unilateral IMPRESSION: 7 mm x 5 mm x 3 mm hypoechoic slightly irregular nodule seen at the 2:00 position the breast at this time and some nipple. A biopsy is recommended for further evaluation. ASSESSMENT CATEGORY: BIRADS Category 4: Suspicious - Biopsy Should Be Considered. A letter regarding these results will be sent to the patient by the facility within 30 days. Electronically Signed: Willy Hilliard MD at 15:29 EDT Tel [phone], Service support , CC: Logan Cunningham MD; Yassine Link MD Budget Record Clerk: Signed DIAG MAMM W/CAD, Observed: 07/17/2018 Status: F Source: [place] BILAT 1:13 PM REPOSITORY [facility] Imaging Services [address] [place] [id number] DIAG MAMM W/CAD, BILAT MR#: [id number] Acct: [id number] Name: ANNE KUHN Rep #: [id number] : 1985 F 32 From: Willy Hilliard MD PCP: Yassine Link MD Status: REG CLI Study: DIAG MAMM W/CAD, BILAT Date of Exam: 07/17/18 Exam# [id number] Ordering Dr: Logan Cunningham MD MAMMOGRAPHY - BILATERAL DIAGNOSTIC REASON FOR EXAM: Female, 32 years old. Left breast pain. PERTINENT HISTORY: Non-contributory. Prior left stereotactic breast biopsy and needle biopsy. TECHNIQUE: Digital bilateral breast alonso (3D mammographic acquisition) in the CC and MLO projections. 2-D mediolateral oblique (MLO) and craniocaudad (CC) views of both breasts were obtained. CAD: Full Field Digital Mammography with Computer Added Detection was performed. COMPARISON: Comparison is made with prior study dated January 30, 2018 and February 12, 2017. FINDINGS: Breast Composition: The breasts are heterogeneously dense, which may obscure small masses. There are no dominant masses or suspicious calcifications. A tissue clip marker is seen in the mid medial portion of the left breast as well as 2 tissue markers are seen along the anterior superior lateral portion of the left breast. There has been no change. No other significant abnormalities are identified. There has been no significant change since the prior study. BI/DIAG MAMM W/CAD, BILAT IMPRESSION: Stable bilateral diagnostic mammogram. With the patient's history of pain in the left breast, correlation with ultrasound is recommended. ASSESSMENT CATEGORY: BIRADS Category 0: Incomplete. Need additional imaging evaluation. A letter regarding these results will be sent to the patient by the facility within 30 days. Approximately 10% of breast cancers are not detected by mammography. A normal mammogram should not delay biopsy of a clinically suspicious abnormality. Electronically Signed: Willy Hilliard MD at 15:54 EDT Tel [phone], Service support , CC: Logan Cunningham MD; Yassine Link MD Budget Record Clerk: Signed PROGRESS Observed: 07/04/2018 Status: COMPLETED Source: [place] 7:03 PM [facility] [place] REPOSITORY HNO ID: [id number] Author: Yassine Link Service: (none) Author Type: Physician Type: Progress Notes Filed: 07/07/2018 2:15 PM Note Text: This note was created using NoteWriter. Subjective Anne Kuhn is a 32 year old female was here for left hand pain, numbness, and tingling radiating up the forearm, aggravated by certain movements at work and when resting hand on a flat surface. Symptoms have been progressing over 3 weeks. 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 Review of Systems Constitutional: Negative. Neurological: Positive for numbness. Negative for weakness. Objective BP 94/60 (BP Site: Right Arm, BP Position: Sitting, BP Cuff Size: Regular Adult) Pulse 88 Resp 12 Wt 66.7 kg (147 lb) LMP 05/16/2015 BMI 28.71 kg/m? Physical Exam Constitutional: No distress. Musculoskeletal: Left wrist: She exhibits tenderness. She exhibits normal range of motion, no bony tenderness, no swelling and no deformity. Left hand: Normal. Normal sensation noted. Normal strength noted. Neurological: She has normal strength. + Phalen's and Tinel's tests on the left. Assessment and Plan 1. Carpal tunnel syndrome on left - ICD9: 354.0, ICD10: G56.02 Benefits: Medication may help symptoms in the short term. Risks: Possible side effects were discussed. Possible interactions: n/a. Warnings: n/a. Options: NSAIDs. Cost: generic. Duration: short term. - PREDNISONE 10 MG TABLET - COCK-UP WRIST SPLINT Patient indicated understanding and willingness to follow recommendations. Yassine Link MD CNOV Observed: 07/04/2018 Status: COMPLETED Source: [place] 6:40 PM [facility] REPOSITORY Office Visit (INTMWS) ANNE KUHN ([id number]) 1985 F Date Time Provider Department 07/04/18 6:40 PM YASSINE LINK INTMWS During your visit today, we recorded the following information about you: Pulse Respiration Blood pressure Weight 88/minute 12/minute 94/60 66.7 kg Yassine Link MD 07/07/2018 2:15 PM Signed This note was created using NoteWriter. Subjective nAne Kuhn is a 32 year old female was here for left hand pain, numbness, and tingling radiating up the forearm, aggravated by certain movements at work and when resting hand on a flat surface. Symptoms have been progressing over 3 weeks. 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 Review of Systems Constitutional: Negative. Neurological: Positive for numbness. Negative for weakness. Objective BP 94/60 (BP Site: Right Arm, BP Position: Sitting, BP Cuff Size: Regular Adult) Pulse 88 Resp 12 Wt 66.7 kg (147 lb) LMP 05/16/2015 BMI 28.71 kg/m? Physical Exam Constitutional: No distress. Musculoskeletal: Left wrist: She exhibits tenderness. She exhibits normal range of motion, no bony tenderness, no swelling and no deformity. Left hand: Normal. Normal sensation noted. Normal strength noted. Neurological: She has normal strength. + Phalen's and Tinel's tests on the left. Assessment and Plan 1. Carpal tunnel syndrome on left - ICD9: 354.0, ICD10: G56.02 Benefits: Medication may help symptoms in the short term. Risks: Possible side effects were discussed. Possible interactions: n/a. Warnings: n/a. Options: NSAIDs. Cost: generic. Duration: short term. - PREDNISONE 10 MG TABLET - COCK-UP WRIST SPLINT Patient indicated understanding and willingness to follow recommendations. Yassine Link MD Referring Provider: SELF [200] Allergies As of Date: 07/04/2018 Noted Allergy Reaction BEES 06/23/2011 14 - Other: See Comments Comments: Pt had swelling, was given epipen at ER. MORPHINE 11/10/2014 2 - Rash Comments: Left arm turned red when given IV morphine PENICILLINS 02/14/2011 14 - Other: See Comments Comments: patient refuses due to family allergy to pcn TESSALON (BENZONATATE) 11/03/2017 2 - Rash VALIUM (DIAZEPAM) 08/03/2015 4 - Hives Comments: Rash on chest region only Date Reviewed: 07/04/2018 Reviewed by: Sarina Roman - Fully Assessed Reason for Visit: left hand pain [Other] Primary Visit Diagnosis:Carpal tunnel syndrome on left [G56.02] Order(s):predniSONE (DELTASONE) 10 mg tabletTake 4 tabs daily for 3 days, then 2 tabs daily for 3 days, then 1 tab daily for 3 days with food.Disp: 21 tabletRfl: 0 COCK-UP WRIST SPLINT [[id number]] Order #: [id number] Prescriptions as of 07/04/2018 Sig: VENTOLIN HFA 90 MCG/ACTUATION* INHALE TWO PUFFS BY MOUTH JUVE* EPINEPHRINE 0.3 MG/0.3 ML INJ* GIVE ONE DOSE INTO LATERAL TH* LORAZEPAM 0.5 MG TABLET Take by mouth twice daily as * MOMETASONE 220 MCG (60 DOSES)* Inhale 1 Puff as instructed t* ALBUTEROL SULFATE 2.5 MG/3 ML* Use 3 mL via nebulizer three * PANTOPRAZOLE 20 MG TABLET,DEL* TAKE TWO TABLETS BY MOUTH HORACE* TRAZODONE 50 MG TABLET Take 1 tablet by mouth daily * COMPOUNDED PRESCRIPTION NEBULIZER, TUBING, AND MOUTHP* BUSPIRONE 30 MG TABLET Take 1 tablet by mouth twice * ARIPIPRAZOLE 10 MG TABLET Take 1 tablet by mouth once d* PREDNISONE 10 MG TABLET Take 4 tabs daily for 3 days,* Medication notes this encounter PANTOPRAZOLE 20 MG TABLET,DELAYED RELEASE >> Sarina Roman 07/04/2018 6:42 PM >> SARINA ROMAN [facility] Jul 04, 2018 6:42 PM Takes prn MONTELUKAST 10 MG TABLET >> Sarina Roman 07/04/2018 6:40 PM >> SARINA ROMAN [facility] Jul 04, 2018 6:40 PM Not taking PROMETHAZINE 25 MG TABLET >> Sarina Roman 07/04/2018 6:41 PM >> SARINA ROMAN [facility] Jul 04, 2018 6:41 PM No longer using Problem List As Of Date 07/04/2018 Noted Resolved BIPOLAR DISORDER NOS [F31.9] INVALID FOR* Asthma [J45.909] INVALID FOR* Mastodynia [N64.9] INVALID FOR* ESOPHAGEAL REFLUX [K21.9] INVALID FOR* Pruritus of genital organs [L29.3] INVALID FOR*01/03/2011 TOBACCO USE DISORDER [F17.200] INVALID FOR* HIDRADENITIS [L73.2] INVALID FOR* Lumbago [M54.5] INVALID FOR*04/18/2018 Dysuria [R30.0] INVALID FOR*01/03/2011 Abdominal pain, generalized [R10.84] INVALID FOR*01/03/2011 Abdominal pain, epigastric [R10.13] INVALID FOR*03/15/2012 Disturbance of skin sensation [R20.9] INVALID FOR*01/03/2011 Cervicalgia [M54.2] INVALID FOR*01/03/2011 Nausea [R11.0] INVALID FOR* Abdominal pain, right upper quadrant [R10.11] INVALID FOR*03/15/2012 Gastritis/duodenitis [K29.70, K29.90] INVALID FOR*03/15/2012 Acute gastritis without mention of hemorrhage [*INVALID FOR*03/15/2012 Irritable bowel syndrome [K58.9] INVALID FOR* Abdominal pain, chronic, generalized [R10.84, G*INVALID FOR*04/18/2018 ASCUS (atypical squamous cells of undetermined *INVALID FOR*04/18/2018 Myofascial pain [M79.1] INVALID FOR*04/18/2018 Pain of left thumb [M79.645] INVALID FOR*04/18/2018 Raynaud's phenomenon without gangrene [I73.00] INVALID FOR* Abnormal mammogram [R92.8] INVALID FOR* Prescriptions ordered this encounter Disp Refills Start End PREDNISONE 10 MG TABLET 21 t* 0 07/04/2018 07/13/2018 Sig: Take 4 tabs daily for 3 days, then 2 tabs daily for 3 days, then 1 tab daily for 3 days with food. Medications Discontinued During This Encounter predniSONE (DELTASONE) 10 mg tablet 20 t* 0 04/24/2018 07/04/2018 Sig: TAKE BY MOUTH 4 TABLETS DAILY FOR 2 DAYS, THEN 3 TABLETS DAILY FOR 2 DAYS, THEN 2 TABLETS DAILY FOR 2 DAYS, THEN 1 TABLET DAILY FOR 2 DAYS. Disc: Course of therapy completed montelukast (SINGULAIR) 10 mg tablet 30 t* 2 04/18/2018 07/04/2018 Route: ORAL Sig: Take 1 tablet by mouth daily at bedtime. Disc: Reason for discontinue is not on file. albuterol (PROVENTIL) 5 mg/mL nebu 1 mL 0 04/18/2018 07/04/2018 Class: Back Office Route: INHALATION Sig: Inhale 0.5 mL as instructed one time only for 1 dose. 1 DOSE NOW - BACK OFFICE. PLACE 0.5 ML PER DROPPER AND 2.5 ML OF NORMAL SALINE INTO RESERVOIR. Disc: Reason for discontinue is not on file. oxybutynin (DITROPAN) 5 mg tablet 01/21/2018 07/04/2018 Class: Historical Med Route: ORAL Sig: Take 1 tablet by mouth twice daily. Disc: Reason for discontinue is not on file. promethazine (PHENERGAN) 25 mg tablet 40 t* 2 07/23/2017 07/04/2018 Route: ORAL Sig: Take 1 tablet by mouth every 6 hours as needed for Nausea/Vomiting. Disc: Reason for discontinue is not on file. Encounter Status:Closed by YASSINE LINK MD on 07/07/18 PROGRESS Observed: 04/18/2018 Status: COMPLETED Source: [place] 3:33 PM [facility] REPOSITORY HNO ID: [id number] Author: eLticia Persaud LPN Service: (none) Author Type: (none) Type: Progress Notes Filed: 04/18/2018 3:40 PM Note Text: Albuterol solution aerosol treatment given per doctor's order. Prior to treatment, O2 sat is 99% on room air. Treatment completed. O2 sat is 99 % on room air. Vital Tolerated well. Leticia Persaud LPN PROGRESS Observed: 04/18/2018 Status: COMPLETED Source: [place] 3:33 PM [facility] REPOSITORY HNO ID: [id number] Author: Yassine Link Service: (none) Author Type: Physician Type: Progress Notes Filed: 04/18/2018 3:40 PM Note Text: This note was created using HealthSpringriter. Subjective Anne Kuhn is a 32 year old female here with persistent coughing, wheezing, and dyspnea. She was seen 3 days ago, and was not much improved. She was taking her medications and inhalers. Review of Systems Constitutional: Negative for chills and fever. HENT: Positive for postnasal drip and sneezing. Respiratory: Positive for cough, shortness of breath and wheezing. Cardiovascular: Negative. Gastrointestinal: Positive for nausea. Negative for abdominal pain. ACTIVE PROBLEM LIST Bipolar Disorder, Unspecified (Hcc) Asthma Mastodynia Esophageal Reflux Tobacco Use Disorder Hidradenitis Nausea Irritable Bowel Syndrome Raynaud's Phenomenon Without Gangrene Abnormal Mammogram Current Outpatient Prescriptions: VENTOLIN HFA 90 mcg/actuation inhaler INHALE TWO PUFFS BY MOUTH EVERY 6 HOURS NEEDED FOR WHEEZING OR SHORTNESS OF BREATH predniSONE (DELTASONE) 10 mg tablet Take by mouth 6 pills on day 1, 5 pills on day 2, 4 pills on day 3, 3 pills on day 4, 2 pills on day 5, 1 pill on day 6 codeine-guaiFENesin (ROBITUSSIN AC) 10-100 mg/5 mL syrup Take 5-10 mL by mouth four times daily as needed for Cough for up to 7 days. May cause drowsiness. EPINEPHrine (EPIPEN) 0.3 mg/0.3 mL auto-injector GIVE ONE DOSE INTO LATERAL THIGH FOR ALLERGIC REACTION. REPEAT DOSE IN 5-15 MINUTES IF NOT IMPROVING oxybutynin (DITROPAN) 5 mg tablet Take 1 tablet by mouth twice daily. LORazepam (ATIVAN) 0.5 mg tab Take by mouth twice daily as needed. mometasone (ASMANEX) 220 mcg (60 doses) aepb Inhale 1 Puff as instructed twice daily. albuterol (PROVENTIL) 2.5 mg /3 mL (0.083 %) nebulizer solution Use 3 mL via nebulizer three times daily as needed. OVER 5-15 MINUTES. FOR WHEEZING AND SHORTNESS OF BREATH. pantoprazole DR (PROTONIX) 20 mg tablet TAKE TWO TABLETS BY MOUTH DAILY promethazine (PHENERGAN) 25 mg tablet Take 1 tablet by mouth every 6 hours as needed for Nausea/Vomiting. traZODone (DESYREL) 50 mg tablet Take 1 tablet by mouth daily at bedtime. [facility] Nebulizer NEBULIZER, TUBING, AND MOUTHPIECE FOR HOME USE. DX: J45.909 busPIRone HCl 30 mg tablet Take 1 tablet by mouth twice daily. ARIPiprazole (ABILIFY) 10 mg tablet Take 1 tablet by mouth once daily. montelukast (SINGULAIR) 10 mg tablet Take 1 tablet by mouth daily at bedtime. albuterol (PROVENTIL) 5 mg/mL nebu Inhale 0.5 mL as instructed one time only for 1 dose. 1 DOSE NOW - BACK OFFICE. PLACE 0.5 ML PER DROPPER AND 2.5 ML OF NORMAL SALINE INTO RESERVOIR. No current facility-administered medications for this visit. Objective BP 104/66 (BP Site: Left Arm, BP Position: Sitting, BP Cuff Size: Regular Adult) Pulse 64 Temp 37 ?C (98.6 ?F) (Temporal Artery) Resp 20 Wt 68.5 kg (151 lb) LMP 05/16/2015 BMI 29.49 kg/m? Physical Exam Constitutional: No distress. HENT: Nose: Mucosal edema present. No sinus tenderness. Mouth/Throat: Posterior oropharyngeal erythema present. No oropharyngeal exudate. Cardiovascular: Normal heart sounds. Pulmonary/Chest: No respiratory distress. She has wheezes. Musculoskeletal: She exhibits no edema. Lymphadenopathy: She has no cervical adenopathy. Assessment and Plan 1. Asthma with acute exacerbation, unspecified asthma severity, unspecified whether persistent - ICD9: 493.92, ICD10: J45.901 - Continue current meds - MONTELUKAST 10 MG TABLET. Discussed medication dosage, usage, goals of therapy, and side effects. - ALBUTEROL SULFATE CONCENTRATE 5 MG/ML(0.5 %) SOLUTION FOR NEBULIZATION- Given with good effect. Yassine Link MD CNOV Observed: 04/18/2018 Status: COMPLETED Source: [place] 2:20 PM [facility] REPOSITORY Office Visit (INTMWS) ANNE KUHN ([id number]) 1985 F Date Time Provider Department 04/18/18 2:20 PM YASSINE LINK INTMWS During your visit today, we recorded the following information about you: Temperature Pulse Respiration Blood pressure 98.6 degrees 64/minute 20/minute 104/66 Weight 68.5 kg Yassine Link MD 04/18/2018 3:40 PM Signed This note was created using [employer]. Subjective Anne Kuhn is a 32 year old female here with persistent coughing, wheezing, and dyspnea. She was seen 3 days ago, and was not much improved. She was taking her medications and inhalers. Review of Systems Constitutional: Negative for chills and fever. HENT: Positive for postnasal drip and sneezing. Respiratory: Positive for cough, shortness of breath and wheezing. Cardiovascular: Negative. Gastrointestinal: Positive for nausea. Negative for abdominal pain. ACTIVE PROBLEM LIST Bipolar Disorder, Unspecified (Hcc) Asthma Mastodynia Esophageal Reflux Tobacco Use Disorder Hidradenitis Nausea Irritable Bowel Syndrome Raynaud's Phenomenon Without Gangrene Abnormal Mammogram Current Outpatient Prescriptions: VENTOLIN HFA 90 mcg/actuation inhaler INHALE TWO PUFFS BY MOUTH EVERY 6 HOURS NEEDED FOR WHEEZING OR SHORTNESS OF BREATH predniSONE (DELTASONE) 10 mg tablet Take by mouth 6 pills on day 1, 5 pills on day 2, 4 pills on day 3, 3 pills on day 4, 2 pills on day 5, 1 pill on day 6 codeine-guaiFENesin (ROBITUSSIN AC) 10-100 mg/5 mL syrup Take 5-10 mL by mouth four times daily as needed for Cough for up to 7 days. May cause drowsiness. EPINEPHrine (EPIPEN) 0.3 mg/0.3 mL auto-injector GIVE ONE DOSE INTO LATERAL THIGH FOR ALLERGIC REACTION. REPEAT DOSE IN 5-15 MINUTES IF NOT IMPROVING oxybutynin (DITROPAN) 5 mg tablet Take 1 tablet by mouth twice daily. LORazepam (ATIVAN) 0.5 mg tab Take by mouth twice daily as needed. mometasone (ASMANEX) 220 mcg (60 doses) aepb Inhale 1 Puff as instructed twice daily. albuterol (PROVENTIL) 2.5 mg /3 mL (0.083 %) nebulizer solution Use 3 mL via nebulizer three times daily as needed. OVER 5-15 MINUTES. FOR WHEEZING AND SHORTNESS OF BREATH. pantoprazole DR (PROTONIX) 20 mg tablet TAKE TWO TABLETS BY MOUTH DAILY promethazine (PHENERGAN) 25 mg tablet Take 1 tablet by mouth every 6 hours as needed for Nausea/Vomiting. traZODone (DESYREL) 50 mg tablet Take 1 tablet by mouth daily at bedtime. [facility] Nebulizer NEBULIZER, TUBING, AND MOUTHPIECE FOR HOME USE. DX: J45.909 busPIRone HCl 30 mg tablet Take 1 tablet by mouth twice daily. ARIPiprazole (ABILIFY) 10 mg tablet Take 1 tablet by mouth once daily. montelukast (SINGULAIR) 10 mg tablet Take 1 tablet by mouth daily at bedtime. albuterol (PROVENTIL) 5 mg/mL nebu Inhale 0.5 mL as instructed one time only for 1 dose. 1 DOSE NOW - BACK OFFICE. PLACE 0.5 ML PER DROPPER AND 2.5 ML OF NORMAL SALINE INTO RESERVOIR. No current facility-administered medications for this visit. Objective BP 104/66 (BP Site: Left Arm, BP Position: Sitting, BP Cuff Size: Regular Adult) Pulse 64 Temp 37 ?C (98.6 ?F) (Temporal Artery) Resp 20 Wt 68.5 kg (151 lb) LMP 05/16/2015 BMI 29.49 kg/m? Physical Exam Constitutional: No distress. HENT: Nose: Mucosal edema present. No sinus tenderness. Mouth/Throat: Posterior oropharyngeal erythema present. No oropharyngeal exudate. Cardiovascular: Normal heart sounds. Pulmonary/Chest: No respiratory distress. She has wheezes. Musculoskeletal: She exhibits no edema. Lymphadenopathy: She has no cervical adenopathy. Assessment and Plan 1. Asthma with acute exacerbation, unspecified asthma severity, unspecified whether persistent - ICD9: 493.92, ICD10: J45.901 - Continue current meds - MONTELUKAST 10 MG TABLET. Discussed medication dosage, usage, goals of therapy, and side effects. - ALBUTEROL SULFATE CONCENTRATE 5 MG/ML(0.5 %) SOLUTION FOR NEBULIZATION- Given with good effect. MD Leticia Holly LPN 04/18/2018 3:40 PM Signed Albuterol solution aerosol treatment given per doctor's order. Prior to treatment, O2 sat is 99% on room air. Treatment completed. O2 sat is 99 % on room air. Vital Tolerated well. Leticia Persaud LPN Referring Provider: YASSINE LINK [[id number]] Allergies As of Date: 04/18/2018 Noted Allergy Reaction BEES 06/23/2011 14 - Other: See Comments Comments: Pt had swelling, was given epipen at ER. MORPHINE 11/10/2014 2 - Rash Comments: Left arm turned red when given IV morphine PENICILLINS 02/14/2011 14 - Other: See Comments Comments: patient refuses due to family allergy to pcn TESSALON (BENZONATATE) 11/03/2017 2 - Rash VALIUM (DIAZEPAM) 08/03/2015 4 - Hives Comments: Rash on chest region only Date Reviewed: 04/18/2018 Reviewed by: Leticia Persaud LPN - Fully Assessed Reason for Visit: Medication Follow-up [270] Primary Visit Diagnosis:Asthma with acute exacerbation, unspecified asthma severity, unspecified whether persistent [J45.901] Order(s):montelukast (SINGULAIR) 10 mg tabletTake 1 tablet by mouth daily at bedtime.Disp: 30 tabletRfl: 2 albuterol (PROVENTIL) 5 mg/mL nebuInhale 0.5 mL as instructed one time only for 1 dose. 1 DOSE NOW - BACK OFFICE. PLACE 0.5 ML PER DROPPER AND 2.5 ML OF NORMAL SALINE INTO RESERVOIR.Disp: 1 mLRfl: 0 Prescriptions as of 04/18/2018 Sig: VENTOLIN HFA 90 MCG/ACTUATION* INHALE TWO PUFFS BY MOUTH JUVE* PREDNISONE 10 MG TABLET Take by mouth 6 pills on day * CODEINE 10 MG-GUAIFENESIN 100* Take 5-10 mL by mouth four ti* EPINEPHRINE 0.3 MG/0.3 ML INJ* GIVE ONE DOSE INTO LATERAL TH* OXYBUTYNIN CHLORIDE 5 MG TABL* Take 1 tablet by mouth twice * LORAZEPAM 0.5 MG TABLET Take by mouth twice daily as * MOMETASONE 220 MCG (60 DOSES)* Inhale 1 Puff as instructed t* ALBUTEROL SULFATE 2.5 MG/3 ML* Use 3 mL via nebulizer three * PANTOPRAZOLE 20 MG TABLET,DEL* TAKE TWO TABLETS BY MOUTH HORACE* PROMETHAZINE 25 MG TABLET Take 1 tablet by mouth every * TRAZODONE 50 MG TABLET Take 1 tablet by mouth daily * COMPOUNDED PRESCRIPTION NEBULIZER, TUBING, AND MOUTHP* BUSPIRONE 30 MG TABLET Take 1 tablet by mouth twice * ARIPIPRAZOLE 10 MG TABLET Take 1 tablet by mouth once d* MONTELUKAST 10 MG TABLET Take 1 tablet by mouth daily * ALBUTEROL SULFATE CONCENTRATE* Inhale 0.5 mL as instructed o* Problem List As Of Date 04/18/2018 Noted Resolved BIPOLAR DISORDER NOS [F31.9] INVALID FOR* Asthma [J45.909] INVALID FOR* Mastodynia [N64.9] INVALID FOR* ESOPHAGEAL REFLUX [K21.9] INVALID FOR* Pruritus of genital organs [L29.3] INVALID FOR*01/03/2011 TOBACCO USE DISORDER [F17.200] INVALID FOR* HIDRADENITIS [L73.2] INVALID FOR* Lumbago [M54.5] INVALID FOR*04/18/2018 Dysuria [R30.0] INVALID FOR*01/03/2011 Abdominal pain, generalized [R10.84] INVALID FOR*01/03/2011 Abdominal pain, epigastric [R10.13] INVALID FOR*03/15/2012 Disturbance of skin sensation [R20.9] INVALID FOR*01/03/2011 Cervicalgia [M54.2] INVALID FOR*01/03/2011 Nausea [R11.0] INVALID FOR* Abdominal pain, right upper quadrant [R10.11] INVALID FOR*03/15/2012 Gastritis/duodenitis [K29.70, K29.90] INVALID FOR*03/15/2012 Acute gastritis without mention of hemorrhage [*INVALID FOR*03/15/2012 Irritable bowel syndrome [K58.9] INVALID FOR* Abdominal pain, chronic, generalized [R10.84, G*INVALID FOR*04/18/2018 ASCUS (atypical squamous cells of undetermined *INVALID FOR*04/18/2018 Myofascial pain [M79.1] INVALID FOR*04/18/2018 Pain of left thumb [M79.645] INVALID FOR*04/18/2018 Raynaud's phenomenon without gangrene [I73.00] INVALID FOR* Abnormal mammogram [R92.8] INVALID FOR* Prescriptions ordered this encounter Disp Refills Start End MONTELUKAST 10 MG TABLET 30 t* 2 04/18/2018 Route: ORAL Sig: Take 1 tablet by mouth daily at bedtime. ALBUTEROL SULFATE CONCENTRATE 5 MG/M* 1 mL 0 04/18/2018 04/18/2018 Class: Back Office Route: INHALATION Sig: Inhale 0.5 mL as instructed one time only for 1 dose. 1 DOSE NOW - BACK OFFICE. PLACE 0.5 ML PER DROPPER AND 2.5 ML OF NORMAL SALINE INTO RESERVOIR. Medications Discontinued During This Encounter cyclobenzaprine (FLEXERIL) 10 mg tab* 30 t* 0 12/17/2017 04/18/2018 Route: ORAL Sig: Take 1 tablet by mouth three times daily as needed for Muscle Spasm. Disc: Reason for discontinue is not on file. naproxen (NAPROSYN) 500 mg tablet 20 t* 0 12/17/2017 04/18/2018 Route: ORAL Sig: Take 1 tablet by mouth twice daily with meals. Disc: Reason for discontinue is not on file. Disposition: Return if symptoms worsen or fail to improve. Follow-up and Disposition History Recorded Encounter Status:Closed by YASSINE LINK MD on 04/18/18 PROGRESS Observed: 04/15/2018 Status: COMPLETED Source: [place] 2:53 PM [facility] REPOSITORY HNO ID: [id number] Author: German (Marriage Counselor Minister) Pranay Service: (none) Author Type: Nurse Specialist Type: Progress Notes Filed: 04/15/2018 2:59 PM Note Text: OUTPATIENT VISIT DATE April 15, 2018 OUTPATIENT VISIT TYPE ESTABLISHED PRIMARY CARE PHYSICIAN: Yassine Link MD CHIEF COMPLAINT: Patient presents with: Cough History of Present Illness: Anne Kuhn is a 32 year old female who was last seen 12/2017 in . She has been seen in the past for ACTIVE PROBLEM LIST Bipolar Disorder, Unspecified (Hcc) Asthma Mastodynia Esophageal Reflux Tobacco Use Disorder Hidradenitis Lumbago Nausea Irritable Bowel Syndrome Abdominal Pain, Chronic, Generalized Ascus (Atypical Squamous Cells of Undetermined Significance) On Pap Smear Myofascial Pain Pain of Left Thumb Raynaud's Phenomenon Without Gangrene Abnormal Mammogram Since the last visit, she states that she's had a productive cough for the last 4 day. No known fever. Does note nasal drainage. Has been using inhalers as prescribed. Current smoker, 14pack/years. Reports history of asthma. She does have sick family contacts, one with pneumonia. The ROS is otherwise negative. The patient's pmh, medications, allergies, and past visits are reviewed. PHYSICAL EXAM: BP 100/68 (BP Site: Right Arm, BP Position: Sitting, BP Cuff Size: Regular Adult) Pulse 92 Temp 36.4 ?C (97.6 ?F) Resp 16 Wt 68.5 kg (151 lb) LMP 05/16/2015 SpO2 97% BMI 29.49 kg/m? General appearance: tired/ill appearing Head: Normocephalic Eyes: conjunctiva/corneas normal Ears: R TM - clear with good landmarks, L TM - clear with good landmarks Nose: clear rhinorrhea Oropharynx: moist without lesions Neck: supple and no adenopathy Heart: regular rate and rhythm, without murmur Lungs: Diminished bases otherwise clear to auscultation, without rales or wheeze, good air exchange PAST MEDICAL HISTORY Diagnosis Date - Abdominal pain - Abdominal pain, epigastric - ASTHMA UNSPECIFIED 07/26/2006 - BIPOLAR DISORDER NOS 07/26/2006 - Esophageal reflux 08/23/2006 - Hidradenitis 01/15/2007 - Irritable bowel syndrome 03/15/2012 - Mastodynia 08/23/2006 - Tobacco use disorder 12/25/2006 PAST SURGICAL HISTORY Procedure Laterality Date - BREAST BIOPSY W/ULTRASOUND GUIDANCE Left 03/02/2017 - COLONOSCOP W/ OR W/O BRSH SPEC 06/11/2012 Colonoscopy - COLONOSCOP W/ OR W/O BRSH SPEC 11/08/2016 Colonoscopy mac - EGD W/O BRSH SPECIMEN W/BX 10/26/09 - EGD W/O OR W/BRUSH/WASH 07/21/2011 EGD - EGD W/O OR W/BRUSH/WASH 11/08/2016 EGD mac - EXT HYSTERECTOMY,W/PARTIAL VAGINECTO 04/2015 - L'SCOPE DX W/WO BRUSHINGS/WASHINGS Laparoscopy twice - PAST SURGICAL HISTORY OF dental extraction FAMILY HISTORY Problem Relation Age of Onset - Asthma Mother - Headache Mother migraine - Psychiatry Mother depression, - Arthritis Mother chronic pain, fibromyalgia - Cancer Mother ovarian (ovarian remit syndrome had since 1991 with a complete hysterectomy)/ cancer of foot - Heart Mother disease - pneumonia [OTHER] Mother lupus - Hypertension Father - Heart Father - Diabetes Paternal Grandmother - Stroke Paternal Grandmother - Diabetes Paternal Grandfather - Heart Paternal Grandfather - Asthma Maternal Grandmother - Cancer Maternal Grandfather lymph node Social History Substance Use Topics - Smoking status: Current Every Day Smoker Packs/day: 1.00 Years: 14.00 Types: Cigarettes - Smokeless tobacco: Never Used - Alcohol use No ALLERGIES: ALLERGIES Allergen Reactions - Bees Other: See Comments Pt had swelling, was given epipen at ER. - Morphine Rash Left arm turned red when given IV morphine - Penicillins Other: See Comments patient refuses due to family allergy to pcn - Tessalon [Benzonata* Rash - Valium [Diazepam] Hives Rash on chest region only MEDICATIONS mometasone (ASMANEX) 220 mcg (60 doses) aepb Inhale 1 Puff as instructed twice daily. albuterol HFA (PROVENTIL HFA, VENTOLIN HFA) 90 mcg/actuation inhaler Inhale 2 Puffs as instructed every 6 hours as needed for Wheezing/Shortness of Breath. albuterol (PROVENTIL) 2.5 mg /3 mL (0.083 %) nebulizer solution Use 3 mL via nebulizer three times daily as needed. OVER 5-15 MINUTES. FOR WHEEZING AND SHORTNESS OF BREATH. predniSONE (DELTASONE) 10 mg tablet Take by mouth 6 pills on day 1, 5 pills on day 2, 4 pills on day 3, 3 pills on day 4, 2 pills on day 5, 1 pill on day 6 codeine-guaiFENesin (ROBITUSSIN AC) 10-100 mg/5 mL syrup Take 5-10 mL by mouth four times daily as needed for Cough for up to 7 days. May cause drowsiness. EPINEPHrine (EPIPEN) 0.3 mg/0.3 mL auto-injector GIVE ONE DOSE INTO LATERAL THIGH FOR ALLERGIC REACTION. REPEAT DOSE IN 5-15 MINUTES IF NOT IMPROVING oxybutynin (DITROPAN) 5 mg tablet Take 1 tablet by mouth twice daily. naproxen (NAPROSYN) 500 mg tablet Take 1 tablet by mouth twice daily with meals. cyclobenzaprine (FLEXERIL) 10 mg tablet Take 1 tablet by mouth three times daily as needed for Muscle Spasm. LORazepam (ATIVAN) 0.5 mg tab Take by mouth three times daily as needed. pantoprazole DR (PROTONIX) 20 mg tablet TAKE TWO TABLETS BY MOUTH DAILY promethazine (PHENERGAN) 25 mg tablet Take 1 tablet by mouth every 6 hours as needed for Nausea/Vomiting. traZODone (DESYREL) 50 mg tablet Take 1 tablet by mouth daily at bedtime. [facility] Nebulizer NEBULIZER, TUBING, AND MOUTHPIECE FOR HOME USE. DX: J45.909 busPIRone HCl 30 mg tablet Take 1 tablet by mouth twice daily. ARIPiprazole (ABILIFY) 10 mg tablet Take 1 tablet by mouth once daily. Reviewed chart, outside records, tests [facility] website checked and validated. All prescriptions have been APPROPRIATELY filled. No suspicious activity was identified.- 04/15/2018 by German Pires APRN.OFFICE MACHINE PUNCH OPERATOR I personally interviewed, confirmed and edited the above information if obtained by others. TESTING: Glucose (mg/dL) Date Value 01/04/2017 81 Potassium (mmol/L) Date Value 01/04/2017 4.3 Sodium (mmol/L) Date Value 01/04/2017 139 Chloride (mmol/L) Date Value 01/04/2017 105 CO2 (mmol/L) Date Value 01/04/2017 20 Creatinine (mg/dL) Date Value 01/04/2017 0.79 BUN (mg/dL) Date Value 01/04/2017 10 Anion Gap (mmol/L) Date Value 01/04/2017 14 Calcium (mg/dL) Date Value 01/04/2017 9.4 Glucose (mg/dL) Date Value 01/04/2017 81 Potassium (mmol/L) Date Value 01/04/2017 4.3 Sodium (mmol/L) Date Value 01/04/2017 139 Chloride (mmol/L) Date Value 01/04/2017 105 CO2 (mmol/L) Date Value 01/04/2017 20 Creatinine (mg/dL) Date Value 01/04/2017 0.79 BUN (mg/dL) Date Value 01/04/2017 10 Anion Gap (mmol/L) Date Value 01/04/2017 14 Calcium (mg/dL) Date Value 01/04/2017 9.4 Protein, Total (g/dL) Date Value 01/04/2017 6.5 Albumin (g/dL) Date Value 01/04/2017 4.4 Bilirubin, Total (mg/dL) Date Value 01/04/2017 0.3 Alkaline Phosphatase (U/L) Date Value 01/04/2017 51 AST (U/L) Date Value 01/04/2017 18 ALT (U/L) Date Value 01/04/2017 19 Hemoglobin (g/dL) Date Value 01/04/2017 14.4 Hematocrit (%) Date Value 01/04/2017 42.0 WBC (k/uL) Date Value 01/04/2017 8.79 LDL Chol, Meghana (mg/dL) Date Value 03/06/2012 100 No results found for: HBA1C Ejection Fraction: No results found IMPRESSION: Ms. Kuhn is a 32 year old woman presents with cough productive for clear/white sputum for 4 days. Family member with pneumonia. Exam most consistent with asthma exacerbation After my examination and review of data, I make the following recommendations. PLAN AND RECOMMENDATIONS: 1. Exacerbation of asthma, unspecified asthma severity, unspecified whether persistent - ICD9: 493.92, ICD10: J45.901 - Begin prednisone taper - Avoidance of triggers recommended - PREDNISONE 10 MG TABLET - CODEINE 10 MG-GUAIFENESIN 100 MG/5 ML ORAL LIQUID Avoid smoking Start taking prednisone daily in the morning with food Cough syrup as needed for cough Continue with nebulizer and inhaler Let us know if not feeling improved Advised to go to ER if develops chest pain, shortness of breath, or severe worsening of symptoms. Discussed risks, benefits, alternatives, and potential side effects of medications. Ms. Kuhn expressed understanding and agreed with the plan. German Pires APRN.OFFICE MACHINE PUNCH OPERATOR CNOV Observed: 04/15/2018 Status: COMPLETED Source: [place] 2:20 PM [facility] REPOSITORY Office Visit (INTMWS) ANNE KUHN ([id number]) 1985 F Date Time Provider Department 04/15/18 2:20 PM GERMAN PIRES ([facility]) INTMWS During your visit today, we recorded the following information about you: Temperature Pulse Respiration Blood pressure 97.6 degrees 92/minute 16/minute 100/68 Weight 68.5 kg German Pires APRN.OFFICE MACHINE PUNCH OPERATOR 04/15/2018 2:47 PM Signed Avoid smoking Start taking prednisone daily in the morning with food Cough syrup as needed for cough Continue with nebulizer and inhaler Let us know if not feeling improved German Pires APRN.OFFICE MACHINE PUNCH OPERATOR 04/15/2018 2:59 PM Signed OUTPATIENT VISIT DATE April 15, 2018 OUTPATIENT VISIT TYPE ESTABLISHED PRIMARY CARE PHYSICIAN: Yassine Link MD CHIEF COMPLAINT: Patient presents with: Cough History of Present Illness: Anne Kuhn is a 32 year old female who was last seen 12/2017 in . She has been seen in the past for ACTIVE PROBLEM LIST Bipolar Disorder, Unspecified (Hcc) Asthma Mastodynia Esophageal Reflux Tobacco Use Disorder Hidradenitis Lumbago Nausea Irritable Bowel Syndrome Abdominal Pain, Chronic, Generalized Ascus (Atypical Squamous Cells of Undetermined Significance) On Pap Smear Myofascial Pain Pain of Left Thumb Raynaud's Phenomenon Without Gangrene Abnormal Mammogram Since the last visit, she states that she's had a productive cough for the last 4 day. No known fever. Does note nasal drainage. Has been using inhalers as prescribed. Current smoker, 14pack/years. Reports history of asthma. She does have sick family contacts, one with pneumonia. The ROS is otherwise negative. The patient's pmh, medications, allergies, and past visits are reviewed. PHYSICAL EXAM: BP 100/68 (BP Site: Right Arm, BP Position: Sitting, BP Cuff Size: Regular Adult) Pulse 92 Temp 36.4 ?C (97.6 ?F) Resp 16 Wt 68.5 kg (151 lb) LMP 05/16/2015 SpO2 97% BMI 29.49 kg/m? General appearance: tired/ill appearing Head: Normocephalic Eyes: conjunctiva/corneas normal Ears: R TM - clear with good landmarks, L TM - clear with good landmarks Nose: clear rhinorrhea Oropharynx: moist without lesions Neck: supple and no adenopathy Heart: regular rate and rhythm, without murmur Lungs: Diminished bases otherwise clear to auscultation, without rales or wheeze, good air exchange PAST MEDICAL HISTORY Diagnosis Date - Abdominal pain - Abdominal pain, epigastric - ASTHMA UNSPECIFIED 07/26/2006 - BIPOLAR DISORDER NOS 07/26/2006 - Esophageal reflux 08/23/2006 - Hidradenitis 01/15/2007 - Irritable bowel syndrome 03/15/2012 - Mastodynia 08/23/2006 - Tobacco use disorder 12/25/2006 PAST SURGICAL HISTORY Procedure Laterality Date - BREAST BIOPSY W/ULTRASOUND GUIDANCE Left 03/02/2017 - COLONOSCOP W/ OR W/O BRSH SPEC 06/11/2012 Colonoscopy - COLONOSCOP W/ OR W/O BRSH SPEC 11/08/2016 Colonoscopy mac - EGD W/O BRSH SPECIMEN W/BX 10/26/09 - EGD W/O OR W/BRUSH/WASH 07/21/2011 EGD - EGD W/O OR W/BRUSH/WASH 11/08/2016 EGD mac - EXT HYSTERECTOMY,W/PARTIAL VAGINECTO 04/2015 - L'SCOPE DX W/WO BRUSHINGS/WASHINGS Laparoscopy twice - PAST SURGICAL HISTORY OF dental extraction FAMILY HISTORY Problem Relation Age of Onset - Asthma Mother - Headache Mother migraine - Psychiatry Mother depression, - Arthritis Mother chronic pain, fibromyalgia - Cancer Mother ovarian (ovarian remit syndrome had since 1991 with a complete hysterectomy)/ cancer of foot - Heart Mother disease - pneumonia [OTHER] Mother lupus - Hypertension Father - Heart Father - Diabetes Paternal Grandmother - Stroke Paternal Grandmother - Diabetes Paternal Grandfather - Heart Paternal Grandfather - Asthma Maternal Grandmother - Cancer Maternal Grandfather lymph node Social History Substance Use Topics - Smoking status: Current Every Day Smoker Packs/day: 1.00 Years: 14.00 Types: Cigarettes - Smokeless tobacco: Never Used - Alcohol use No ALLERGIES: ALLERGIES Allergen Reactions - Bees Other: See Comments Pt had swelling, was given epipen at ER. - Morphine Rash Left arm turned red when given IV morphine - Penicillins Other: See Comments patient refuses due to family allergy to pcn - Tessalon [Benzonata* Rash - Valium [Diazepam] Hives Rash on chest region only MEDICATIONS mometasone (ASMANEX) 220 mcg (60 doses) aepb Inhale 1 Puff as instructed twice daily. albuterol HFA (PROVENTIL HFA, VENTOLIN HFA) 90 mcg/actuation inhaler Inhale 2 Puffs as instructed every 6 hours as needed for Wheezing/Shortness of Breath. albuterol (PROVENTIL) 2.5 mg /3 mL (0.083 %) nebulizer solution Use 3 mL via nebulizer three times daily as needed. OVER 5-15 MINUTES. FOR WHEEZING AND SHORTNESS OF BREATH. predniSONE (DELTASONE) 10 mg tablet Take by mouth 6 pills on day 1, 5 pills on day 2, 4 pills on day 3, 3 pills on day 4, 2 pills on day 5, 1 pill on day 6 codeine-guaiFENesin (ROBITUSSIN AC) 10-100 mg/5 mL syrup Take 5-10 mL by mouth four times daily as needed for Cough for up to 7 days. May cause drowsiness. EPINEPHrine (EPIPEN) 0.3 mg/0.3 mL auto-injector GIVE ONE DOSE INTO LATERAL THIGH FOR ALLERGIC REACTION. REPEAT DOSE IN 5-15 MINUTES IF NOT IMPROVING oxybutynin (DITROPAN) 5 mg tablet Take 1 tablet by mouth twice daily. naproxen (NAPROSYN) 500 mg tablet Take 1 tablet by mouth twice daily with meals. cyclobenzaprine (FLEXERIL) 10 mg tablet Take 1 tablet by mouth three times daily as needed for Muscle Spasm. LORazepam (ATIVAN) 0.5 mg tab Take by mouth three times daily as needed. pantoprazole DR (PROTONIX) 20 mg tablet TAKE TWO TABLETS BY MOUTH DAILY promethazine (PHENERGAN) 25 mg tablet Take 1 tablet by mouth every 6 hours as needed for Nausea/Vomiting. traZODone (DESYREL) 50 mg tablet Take 1 tablet by mouth daily at bedtime. [facility] Nebulizer NEBULIZER, TUBING, AND MOUTHPIECE FOR HOME USE. DX: J45.909 busPIRone HCl 30 mg tablet Take 1 tablet by mouth twice daily. ARIPiprazole (ABILIFY) 10 mg tablet Take 1 tablet by mouth once daily. Reviewed chart, outside records, tests [place]ARRS website checked and validated. All prescriptions have been APPROPRIATELY filled. No suspicious activity was identified.- 04/15/2018 by German Pires APRN.OFFICE MACHINE PUNCH OPERATOR I personally interviewed, confirmed and edited the above information if obtained by others. TESTING: Glucose (mg/dL) Date Value 01/04/2017 81 Potassium (mmol/L) Date Value 01/04/2017 4.3 Sodium (mmol/L) Date Value 01/04/2017 139 Chloride (mmol/L) Date Value 01/04/2017 105 CO2 (mmol/L) Date Value 01/04/2017 20 Creatinine (mg/dL) Date Value 01/04/2017 0.79 BUN (mg/dL) Date Value 01/04/2017 10 Anion Gap (mmol/L) Date Value 01/04/2017 14 Calcium (mg/dL) Date Value 01/04/2017 9.4 Glucose (mg/dL) Date Value 01/04/2017 81 Potassium (mmol/L) Date Value 01/04/2017 4.3 Sodium (mmol/L) Date Value 01/04/2017 139 Chloride (mmol/L) Date Value 01/04/2017 105 CO2 (mmol/L) Date Value 01/04/2017 20 Creatinine (mg/dL) Date Value 01/04/2017 0.79 BUN (mg/dL) Date Value 01/04/2017 10 Anion Gap (mmol/L) Date Value 01/04/2017 14 Calcium (mg/dL) Date Value 01/04/2017 9.4 Protein, Total (g/dL) Date Value 01/04/2017 6.5 Albumin (g/dL) Date Value 01/04/2017 4.4 Bilirubin, Total (mg/dL) Date Value 01/04/2017 0.3 Alkaline Phosphatase (U/L) Date Value 01/04/2017 51 AST (U/L) Date Value 01/04/2017 18 ALT (U/L) Date Value 01/04/2017 19 Hemoglobin (g/dL) Date Value 01/04/2017 14.4 Hematocrit (%) Date Value 01/04/2017 42.0 WBC (k/uL) Date Value 01/04/2017 8.79 LDL Chol, [place] (mg/dL) Date Value 03/06/2012 100 No results found for: HBA1C Ejection Fraction: No results found IMPRESSION: Ms. Kuhn is a 32 year old woman presents with cough productive for clear/white sputum for 4 days. Family member with pneumonia. Exam most consistent with asthma exacerbation After my examination and review of data, I make the following recommendations. PLAN AND RECOMMENDATIONS: 1. Exacerbation of asthma, unspecified asthma severity, unspecified whether persistent - ICD9: 493.92, ICD10: J45.901 - Begin prednisone taper - Avoidance of triggers recommended - PREDNISONE 10 MG TABLET - CODEINE 10 MG-GUAIFENESIN 100 MG/5 ML ORAL LIQUID Avoid smoking Start taking prednisone daily in the morning with food Cough syrup as needed for cough Continue with nebulizer and inhaler Let us know if not feeling improved Advised to go to ER if develops chest pain, shortness of breath, or severe worsening of symptoms. Discussed risks, benefits, alternatives, and potential side effects of medications. Ms. Kuhn expressed understanding and agreed with the plan. 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 MORPHINE 11/10/2014 2 - Rash Comments: Left arm turned red when given IV morphine PENICILLINS 02/14/2011 14 - Other: See Comments Comments: patient refuses due to family allergy to pcn TESSALON (BENZONATATE) 11/03/2017 2 - Rash VALIUM (DIAZEPAM) 08/03/2015 4 - Hives Comments: Rash on chest region only Date Reviewed: 04/15/2018 Reviewed by: Em Hayden LPN - Fully Assessed Reason for Visit: Cough [28] Visit Diagnosis:Exacerbation of asthma, unspecified asthma severity, unspecified whether persistent [J45.901] Order(s):predniSONE (DELTASONE) 10 mg tabletTake by mouth 6 pills on day 1, 5 pills on day 2, 4 pills on day 3, 3 pills on day 4, 2 pills on day 5, 1 pill on day 6Disp: 21 tabletRfl: 0 codeine-guaiFENesin (ROBITUSSIN AC) 10-100 mg/5 mL syrupTake 5-10 mL by mouth four times daily as needed for Cough for up to 7 days. May cause drowsiness.Disp: 120 mLRfl: 0 Prescriptions as of 04/15/2018 Sig: MOMETASONE 220 MCG (60 DOSES)* Inhale 1 Puff as instructed t* ALBUTEROL SULFATE HFA 90 MCG/* Inhale 2 Puffs as instructed * ALBUTEROL SULFATE 2.5 MG/3 ML* Use 3 mL via nebulizer three * PREDNISONE 10 MG TABLET Take by mouth 6 pills on day * CODEINE 10 MG-GUAIFENESIN 100* Take 5-10 mL by mouth four ti* EPINEPHRINE 0.3 MG/0.3 ML INJ* GIVE ONE DOSE INTO LATERAL TH* OXYBUTYNIN CHLORIDE 5 MG TABL* Take 1 tablet by mouth twice * NAPROXEN 500 MG TABLET Take 1 tablet by mouth twice * CYCLOBENZAPRINE 10 MG TABLET Take 1 tablet by mouth three * LORAZEPAM 0.5 MG TABLET Take by mouth three times da* PANTOPRAZOLE 20 MG TABLET,DEL* TAKE TWO TABLETS BY MOUTH HORACE* PROMETHAZINE 25 MG TABLET Take 1 tablet by mouth every * TRAZODONE 50 MG TABLET Take 1 tablet by mouth daily * COMPOUNDED PRESCRIPTION NEBULIZER, TUBING, AND MOUTHP* BUSPIRONE 30 MG TABLET Take 1 tablet by mouth twice * ARIPIPRAZOLE 10 MG TABLET Take 1 tablet by mouth once d* Problem List As Of Date 04/15/2018 Noted Resolved BIPOLAR DISORDER NOS [F31.9] INVALID FOR* Asthma [J45.909] INVALID FOR* Mastodynia [N64.9] INVALID FOR* ESOPHAGEAL REFLUX [K21.9] INVALID FOR* Pruritus of genital organs [L29.3] INVALID FOR*01/03/2011 TOBACCO USE DISORDER [F17.200] INVALID FOR* HIDRADENITIS [L73.2] INVALID FOR* LUMBAGO [M54.5] INVALID FOR* Dysuria [R30.0] INVALID FOR*01/03/2011 Abdominal pain, generalized [R10.84] INVALID FOR*01/03/2011 Abdominal pain, epigastric [R10.13] INVALID FOR*03/15/2012 Disturbance of skin sensation [R20.9] INVALID FOR*01/03/2011 Cervicalgia [M54.2] INVALID FOR*01/03/2011 Nausea [R11.0] INVALID FOR* Abdominal pain, right upper quadrant [R10.11] INVALID FOR*03/15/2012 Gastritis/duodenitis [K29.70, K29.90] INVALID FOR*03/15/2012 Acute gastritis without mention of hemorrhage [*INVALID FOR*03/15/2012 Irritable bowel syndrome [K58.9] INVALID FOR* Abdominal pain, chronic, generalized [R10.84, G*INVALID FOR* ASCUS (atypical squamous cells of undetermined *INVALID FOR* Myofascial pain [M79.1] INVALID FOR* Pain of left thumb [M79.645] INVALID FOR* Raynaud's phenomenon without gangrene [I73.00] INVALID FOR* Abnormal mammogram [R92.8] INVALID FOR* Other instructions from your clinician: Avoid smoking Start taking prednisone daily in the morning with food Cough syrup as needed for cough Continue with nebulizer and inhaler Let us know if not feeling improved Prescriptions ordered this encounter Disp Refills Start End PREDNISONE 10 MG TABLET 21 t* 0 04/15/2018 04/21/2018 Sig: Take by mouth 6 pills on day 1, 5 pills on day 2, 4 pills on day 3, 3 pills on day 4, 2 pills on day 5, 1 pill on day 6 CODEINE 10 MG-GUAIFENESIN 100 MG/5 M* 120 * 0 04/15/2018 04/22/2018 Class: Print RX Route: ORAL Sig: Take 5-10 mL by mouth four times daily as needed for Cough for up to 7 days. May cause drowsiness. Medications Discontinued During This Encounter predniSONE (DELTASONE) 10 mg tablet 21 t* 0 11/03/2017 04/15/2018 Sig: Take by mouth 6 pills on day 1, 5 pills on day 2, 4 pills on day 3, 3 pills on day 4, 2 pills on day 5, 1 pill on day 6 Disc: Reason for discontinue is not on file. Encounter Status:Closed by GERMAN RAY on 04/15/18 OPERATIVE REPORT Observed: 03/18/2018 Status: F Source: [place] 12:06 PM REPOSITORY [facility] Medical Records Department [address] [place] [address] Operative Report 03/18/18 1203 MR#: [id number] Acct: [id number] Name: ANNE KUHN Rep #: [id number] : 1985 32 From: Florin Patel MD PCP: Yassine Link MD Status: REG CLI Y Location: [facility] Problem List (1) Abnormal mammogram of left breast Status: Acute Report of Operation Date of Procedure: 03/18/18 Pre-Operative Diagnosis: Abnormal left mammogram Post-Operative Diagnosis: Abnormal left mammogram with distortion and microcalcifications lower inner left breast Surgery/Procedure Performed:: Stereotactic needle core biopsy lower inner left breast Description of Surgical Findings:: Timeout and informed consent was obtained. 32-year-old female was taken to the stereotactic unit. She was placed prone on the table. The left breast was placed in a lateral the microcalcification in distortion question rapidly identified. Stereotactic images were obtained. Digital information was obtained on a single target site. The breast was prepped with Betadine. 1% lidocaine was used as a local anesthetic. A total of 10 cc was used. A small stab incision created. An 8-gauge resolve needle was advanced to prefire depth. Prefire films were obtained. Subsequently the device was fired. Cores were obtained from 9:00 to 3:00. Specimen mammograms were then obtained. Microcalcifications were noted to be present within the specimen. A microclip was stopped at the 12 o'clock position. En fast view demonstrated good positioning. She was released from the device and pressure was held for hemostasis. Subsequently follow-up CC and mediolateral views were obtained. The wound was treated with Steri-Strips Telfa OpSite dressing. She was provided an ice pack. She was given activity and wound care instructions. The specimens were immediately submitted in formalin. Further office follow-up can be as needed pending pathology. There were no apparent complications. Florin Patel M.D., F.A.C.S. Type of Anesthesia:: Local 03/18/18 1206 <Electronically signed by Florin Patel MD> Date Florin Patel MD CC: Florin Patel MD; Yassine Link MD Signed BREAST BIOPSY Observed: 03/18/2018 Status: F Source: [place] ([place]) 12:00 AM REPOSITORY Patient: ANNE KUHN : 1985 (32/F) Acct Num: [id number] Phys: Jorge SAMANIEGO,Florin Unit Num: [id number] Loc: [facility] Specimen: [id number] Received: 03/18/18 - 1345 Spec Type: BREAST BX TISSUES TISSUES: Left breast, NOS GROSS DESCRIPTION Received is one container labeled with the patient's name and not further designated. The specimen consists of multiple irregular and elongated fragments of yellow-white soft tissue that in aggregate measure 8.5 x 3 x 0.2 cm. The specimen is totally submitted in three cassettes. / AM:zhane 03/18/18 TC:5 CPT: 00555 HEADER OPERATION: Left breast stereotactic needle core biopsy PRE-OP DIAGNOSIS: Left breast calcifications TISSUE SUBMITTED: Left breast core tissue ISCHEMIC TIME: 1 minute FIXATION TIME: 7.7 hours MICROSCOPIC DESCRIPTION Slides are reviewed. MICROSCOPIC DIAGNOSIS Left breast, stereotactic core biopsy: Mild fibrocystic change. Focal Banal microcalcifications. No evidence of malignancy. AM:zhane 03/19/18 Signed Cristhian Eris 03/19/18 <signature on file> Performed By: #### PBRBX #### [facility] [address] [place], [address] SURGERY VISIT REPORT Observed: 03/06/2018 Status: F Source: [place] 2:41 PM REPOSITORY [facility] [address] [place] [address] OFFICE VISIT Date of Service: 03/05/18 MR#: [id number] Acct: [id number] Name: ANNE KUHN Rep #: [id number] : 1985 Provider: Aliyah Carrion PA-C Age/Sex: 32/F Location: [facility] Status: Signed Intake Vital Signs03/05/18 Height 5 ft 03/05/18 Weight: 157 lb Intake Visit Reasons: TO UPDATE H AND P FOR LEFT BRST BX @[facility] Record Producer Required: No Is patient in pain?: No Allergies benzonatate [From Tessalon Perles] Allergy (Verified 03/05/18 14:07) Rash diazepam [From Valium] Allergy (Verified 03/05/18 14:07) Hives morphine Allergy (Verified 03/05/18 14:07) Itching Penicillins Allergy (Verified 03/05/18 14:07) Hives venom-honey bee [bee venom (honey bee)] Allergy (Verified 03/05/18 14:07) Hives Medications Sertraline HCl [Zoloft] 50 mg PO DAILY 11/28/15 [History Confirmed 03/05/18] busPIRone [Buspar] 30 mg PO DAILY 11/28/15 [History Confirmed 03/05/18] Albuterol Inhaler [Ventolin Hfa] 2 puff INHALATION Q4H PRN PRN #0 inhaler 05/03/16 [Rx Confirmed 03/05/18] Albuterol Aerosols [Ventolin Aerosols] 2.5 mg INHALATION Q6H PRN PRN 10/06/16 [History Confirmed 03/05/18] Pantoprazole Sodium [Protonix] 40 mg PO DAILY 04/02/17 [History Confirmed 03/05/18] Lorazepam [Ativan] 0.5 mg PO DAILY PRN 11/05/17 [History Confirmed 03/05/18] Trazodone HCl 50 mg PO QHS PRN PRN 11/05/17 [History Confirmed 03/05/18] Oxycodone HCl/Acetaminophen [Percocet 5/325] 1 tab PO Q6H PRN PRN #6 tab 12/03/17 [Rx Confirmed 03/05/18] Naproxen [Naprosyn] 500 mg PO BID PRN #20 tab 01/26/18 [Rx Confirmed 03/05/18] PFSH Medical History Sebaceous cyst of breast (Acute) Abnormal mammogram of left breast (Acute) Anxiety (Acute) Depression (Acute) GERD (gastroesophageal reflux disease) (Acute) Surgical History History of esophagogastroduodenoscopy (EGD) (Acute) S/P breast biopsy (Acute) S/P colonoscopy (Acute) Status post hysterectomy (Acute) Family History Father Heart disease Hypertension Myocardial infarction Mother Cancer lung, throat and Lupus Social History Smoking Status: Current some day smoker HPI HPI HPI: Patient presents for an update history and physical fro stereotactic breast biopsy, left side with Dr. Patel. Patient denies recent changes in her health since last office visit. Patient notes she has had an infected sebaceous cyst on the right breast. She was treated with antibiotics by Dr. Cunningham however this has not fully resolved. Patient is concerned about proceeding with the breast biopsy and continuing to still have a painful right breast cyst. I have offered the patient an I AND D today. She would like to proceed with the I AND D. ANNE KUHN, is a 32 F who presents to the office today for surgical consultation regarding an abnormal mammogram. 32-year-old female. G0. Menarche at age 10. I assisted her March 02, 2017 with an ultrasound-guided needle core biopsy left breast 12 o'clock position +2 cm. Final pathology was mild fibrocystic change no evidence of malignancy. 2 weeks ago the patient developed tenderness in the inner right breast with erythema. This apparently was needle aspirated by Dr. Cunningham and the patient was initiated on antibiotics. The patient states that initially it improved but now is tender and red again. The patient declines us assisting her with that today and states that she will return to see Dr. Cunningham. The patient had imaging done October 31, 2017 at the [facility]. BI-RADS Category 2. There was a 0.7 x 0.3 x 0.7 cm oval fibrocystic change 10 o'clock position right breast and a 0.6 x 0.2 x 0.5 similar fibrocystic change right breast 10:00 she previously on May 01, 2017 had ultrasound the right breast with probable benign findings. Most recently on January 30, 2018 at the [facility] she had bilateral diagnostic mammography. There was felt to be architectural distortion mid lateral left breast 3 or 4 o'clock position. Additional imaging was recommended. A right breast ultrasound was obtained at that time suggesting a 1.4 x 2.2 x 0.5 cm hypoechoic nodule in subtenons tissues of the 4:00 right breast consistent with an infected sebaceous cyst. On February 05, 2018 a left breast ultrasound was performed suggesting a 7 x 6 x 3 mm lymph node 1 o'clock position left breast. Finally on February 05 there is a diagnostic left mammogram done at [facility] BI-RADS Category 4 there is persistent architectural distortion with faint calcification seen in the inferior medial aspect of the left breast biopsy recommended Exam Const General: cooperative, healthy appearing, comfortable, no acute distress [facility] Head: normal to inspection Eyes General: appearance normal, both eyes and all related structures Neck Neck mass: No Chest Other: Right breast- small raised cyst structure. Tender to palpation. No pore identified. No active drainage. Minimal amount of erythema. Resp Effort AND Inspection: normal respiratory effort Auscultation: clear to auscultation bilaterally Cardio Rate: regular rate Rhythm: regular rhythm GI Inspection: normal to inspection Palpation: soft Auscultation: normal bowel sounds Skin General: no rashes or lesions noted Neuro General: no focal motor deficits Extrem General: normal to inspection Psych Appearance: grossly normal Affect: normal affect Office Procedures I AND D Abscess Performed By: Procedure performed by: Aliyah Carrion Details: Procedure note Procedure: Incision and Drainage of infected sebaceous cyst, right breast Permit: Procedure, benefits, risks (include those of bleeding, infection, injury, anesthesia, and allergic reaction), and alternatives explained to the patient who voiced understanding of the information. Their questions were sought and answered. Patient agreed to proceed with the incision and drainage of infected sebaceous cyst, right breast. Permit signed and in chart. Indication: Infected sebaceous cyst, right breast Physician: Aliyah Carrion PA-C Description: Area prepped with betadine and draped in a sterile fashion. Local anesthetic administered with 4 cc of .5% Marcaine and 1% lidocaine. A linear incision was made no purulent material was expressed. Cavity was probed to break up any pockets. Culture was not obtained. Surrounding tissue was palpated and appeared to be much softer. Cavity was packed with iodoform packing. Surrounding area was cleansed with normal saline and gauze dressing was applied. Patient tolerated the procedure well. Complications: None Disposition Patient alert and oriented. Patient tolerated the procedure well. Procedure Time Out Time Out Informed consent given: Yes Consent signed: Yes Time out checklist: patient, procedure, site marked/identified, positioning of patient, supplies available, allergies confirmed, team agrees on procedure Time out staff in room: Yes Time out verified: Yes Time out date: 03/05/18 Time out time: 14:30 Assessment AND Plan Problems 1. Sebaceous cyst of skin of right breast N60.81 2. Abnormal mammogram of left breast R92.8 Plan - Remove packing tomorrow. - Continue to keep area covered with gauze until incision is completely closed. - Dr. Patel will plan to perform a stereotactic breast biopsy of the left breast. Patient has had the opportunity to ask and have questions answered. Patient verbally understands and agrees with the plan. Orders Orders: Medications Discontinued: Coding Level of Care Code No Charge Diagnoses Sebaceous cyst of skin of right breast N60.81 Laterality: right Abnormal mammogram of left breast R92.8 Comment I AND D infected sebaceous cyst, right breast 03/06/18 1441 <Electronically signed by Aliyah Carrion PA-C> Date Aliyah Carrion PA-C Cosigner Signature: Date (if applicable) CC: Yassine Link MD MRI CERVICAL SPINE WO Observed: 02/20/2018 Status: F Source: [place] 9:38 AM [facility] [place] REPOSITORY * * *Final Report* * * DATE OF EXAM: Feb 20 2018 9:38AM [facility] [id number] - MRI CERVICAL SPINE WO IVCON / PROCEDURE REASON: pain * * * * Physician Interpretation * * * * EXAMINATION: MRI THORACIC SPINE WO IVCON, MRI CERVICAL SPINE WO IVCON HISTORY: mid thoracic and neck pain COMPARISON: Cervical spine radiographs of 06/01/2017. Lumbar spine MRI of 02/05/2018. TECHNIQUE: Routine cervical spine MR protocol without contrast. Routine thoracic spine MR protocol without contrast. M: MRCTWO_2 RESULT: CERVICAL SPINE: Multiple sequences are partially degraded by patient motion artifact. Counting reference: Craniocervical junction. Visualized head and craniocervical junction: Within normal limits. Alignment: There is straightening of cervical lordosis. Bone and discs: Within normal limits. The cervical vertebral body heights are preserved. Cervical spinal cord: Within normal limits. Cervical soft tissues: Within normal limits. Significant findings by level: C2/C3: Canal and foramina are patent. C3/C4: Canal and foramina are patent. C4/C5: Canal and foramina are patent. C5/C6: Canal and foramina are patent. C6/C7: Canal and foramina are patent. C7/T1: Canal and foramina are patent. THORACIC SPINE: Counting reference: Craniocervical junction. Alignment: Within normal limits. Bone and discs: There is mild degenerative disc change, most pronounced at T7/T8 and T8/T9. The thoracic vertebral body heights are preserved. Thoracic spinal cord: Within normal limits. Thoracic soft tissues: Within normal limits. There is no significant thoracic spinal canal or neuroforaminal stenosis. IMPRESSION: No abnormality identified to explain the reported pain. There is no significant spinal canal or neural foraminal stenosis in the cervical and thoracic spine. Budget Record Clerk: [facility]rij[facility] Transcribe Date/Time: Feb 20 2018 9:51A Dictated by : LUISITO SALGADO MD This examination was interpreted and the report reviewed and electronically signed by: LUISITO SALGADO MD on Feb 20 2018 9:57AM EST [id number] MRI THORACIC SPINE WO Observed: 02/20/2018 Status: F Source: [place] 9:38 AM [facility] REPOSITORY * * *Final Report* * * DATE OF EXAM: Feb 20 2018 9:38AM [facility] 0325 - MRI THORACIC SPINE WO IVCON / PROCEDURE REASON: pain * * * * Physician Interpretation * * * * EXAMINATION: MRI THORACIC SPINE WO IVCON, MRI CERVICAL SPINE WO IVCON HISTORY: mid thoracic and neck pain COMPARISON: Cervical spine radiographs of 06/01/2017. Lumbar spine MRI of 02/05/2018. TECHNIQUE: Routine cervical spine MR protocol without contrast. Routine thoracic spine MR protocol without contrast. M: MRCTWO_2 RESULT: CERVICAL SPINE: Multiple sequences are partially degraded by patient motion artifact. Counting reference: Craniocervical junction. Visualized head and craniocervical junction: Within normal limits. Alignment: There is straightening of cervical lordosis. Bone and discs: Within normal limits. The cervical vertebral body heights are preserved. Cervical spinal cord: Within normal limits. Cervical soft tissues: Within normal limits. Significant findings by level: C2/C3: Canal and foramina are patent. C3/C4: Canal and foramina are patent. C4/C5: Canal and foramina are patent. C5/C6: Canal and foramina are patent. C6/C7: Canal and foramina are patent. C7/T1: Canal and foramina are patent. THORACIC SPINE: Counting reference: Craniocervical junction. Alignment: Within normal limits. Bone and discs: There is mild degenerative disc change, most pronounced at T7/T8 and T8/T9. The thoracic vertebral body heights are preserved. Thoracic spinal cord: Within normal limits. Thoracic soft tissues: Within normal limits. There is no significant thoracic spinal canal or neuroforaminal stenosis. IMPRESSION: No abnormality identified to explain the reported pain. There is no significant spinal canal or neural foraminal stenosis in the cervical and thoracic spine. Budget Record Clerk: [facility] Transcribe Date/Time: Feb 20 2018 9:51A Dictated by : LUISITO SALGADO MD This examination was interpreted and the report reviewed and electronically signed by: LUISITO SALGADO MD on Feb 20 2018 9:57AM EST [id number] Observed: 02/20/2018 Status: COMPLETED Source: [place] 9:27 AM [facility] REPOSITORY HNO ID: [id number] Author: Kim Berrios Service: (none) Author Type: (none) Type: Progress Notes Filed: 02/20/2018 9:27 AM Note Text: Radiology Service Progress Note PATIENT NAME: Anne Kuhn DATE OF SERVICE: February 20, 2018 TIME: 9:27 AM PATIENT IDENTITY VERIFICATION COMPLETED USING TWO (2) METHODS: Patient confirmed name verbally and Date of . PATIENT GENDER DATA: Female. status: : No status: NO. PATIENT RELEVANT IMPLANT DATA REVIEWED: Yes RADIOLOGY DEPARTMENT: MR; Exam(s) Completed: Spine: Thoracic spine PERIPHERAL IV DATA: Not applicable SIGNED BY: Kim Berrios February 20, 2018 9:27 AM PROGRESS Observed: 02/20/2018 Status: COMPLETED Source: [place] 9:26 AM [facility] [facility] REPOSITORY HNO ID: [id number] Author: Kim Berrios Service: (none) Author Type: (none) Type: Progress Notes Filed: 02/20/2018 9:27 AM Note Text: Radiology Service Progress Note PATIENT NAME: Anne Kuhn DATE OF SERVICE: February 20, 2018 TIME: 9:27 AM PATIENT IDENTITY VERIFICATION COMPLETED USING TWO (2) METHODS: Patient confirmed name verbally and Date of . PATIENT GENDER DATA: Female. status: : No status: NO. PATIENT RELEVANT IMPLANT DATA REVIEWED: Yes RADIOLOGY DEPARTMENT: MR; Exam(s) Completed: Spine: Cervical spine PERIPHERAL IV DATA: Not applicable SIGNED BY: Kim Berrios February 20, 2018 9:27 AM SURGERY VISIT REPORT Observed: 02/11/2018 Status: F Source: [place] 7:43 AM REPOSITORY [facility] [address] [place] [address] OFFICE VISIT Date of Service: 02/11/18 MR#: [id number] Acct: [id number] Name: ANNE KUHN Rep #: [id number] : 1985 Provider: Florin Patel MD Age/Sex: 32/F Location: [facility] Status: Signed Intake Vital Signs02/11/18 Height 5 ft 4 in 02/11/18 Weight: 156 lb 2 oz 02/11/18 Body Mass Index (BMI) 26.8 02/11/18 Blood Pressure 109/62 Intake Visit Reasons: LEFT BREAST MASS, U/S AND MAMMO @ [facility] Allergies benzonatate [From Tessalon Perles] Allergy (Verified 02/11/18 07:35) Rash diazepam [From Valium] Allergy (Verified 02/11/18 07:35) Hives morphine Allergy (Verified 02/11/18 07:35) Itching Penicillins Allergy (Verified 02/11/18 07:35) Hives venom-honey bee [bee venom (honey bee)] Allergy (Verified 02/11/18 07:35) Hives Medications Sertraline HCl [Zoloft] 50 mg PO DAILY 11/28/15 [History Confirmed 01/26/18] busPIRone [Buspar] 30 mg PO DAILY 11/28/15 [History Confirmed 01/26/18] Albuterol Inhaler [Ventolin Hfa] 2 puff INHALATION Q4H PRN PRN #0 inhaler 05/03/16 [Rx Confirmed 01/26/18] Albuterol Aerosols [Ventolin Aerosols] 2.5 mg INHALATION Q6H PRN PRN 10/06/16 [History Confirmed 01/26/18] Pantoprazole Sodium [Protonix] 40 mg PO DAILY 04/02/17 [History Confirmed 01/26/18] Lorazepam [Ativan] 0.5 mg PO DAILY PRN 11/05/17 [History Confirmed 01/26/18] Trazodone HCl 50 mg PO QHS PRN PRN 11/05/17 [History Confirmed 01/26/18] Oxycodone HCl/Acetaminophen [Percocet 5/325] 1 tab PO Q6H PRN PRN #6 tab 12/03/17 [Rx Confirmed 01/26/18] Naproxen [Naprosyn] 500 mg PO BID PRN #20 tab 01/26/18 [Rx] PFSH Medical History Sebaceous cyst of breast (Acute) Abnormal mammogram of left breast (Acute) Anxiety (Acute) Depression (Acute) GERD (gastroesophageal reflux disease) (Acute) Surgical History History of esophagogastroduodenoscopy (EGD) (Acute) S/P breast biopsy (Acute) S/P colonoscopy (Acute) Status post hysterectomy (Acute) Family History Father Heart disease Hypertension Myocardial infarction Mother Cancer lung, throat and Lupus Social History Smoking Status: Current some day smoker HPI HPI HPI: ANNE KUHN, is a 32 F who presents to the office today for surgical consultation regarding an abnormal mammogram. 32-year-old female. G0. Menarche at age 10. I assisted her March 02, 2017 with an ultrasound-guided needle core biopsy left breast 12 o'clock position +2 cm. Final pathology was mild fibrocystic change no evidence of malignancy. 2 weeks ago the patient developed tenderness in the inner right breast with erythema. This apparently was needle aspirated by Dr. Cunningham and the patient was initiated on antibiotics. The patient states that initially it improved but now is tender and red again. The patient declines us assisting her with that today and states that she will return to see Dr. Cunningham. The patient had imaging done October 31, 2017 at the [facility]. BI-RADS Category 2. There was a 0.7 x 0.3 x 0.7 cm oval fibrocystic change 10 o'clock position right breast and a 0.6 x 0.2 x 0.5 similar fibrocystic change right breast 10:00 she previously on May 01, 2017 had ultrasound the right breast with probable benign findings. Most recently on January 30, 2018 at the [facility] she had bilateral diagnostic mammography. There was felt to be architectural distortion mid lateral left breast 3 or 4 o'clock position. Additional imaging was recommended. A right breast ultrasound was obtained at that time suggesting a 1.4 x 2.2 x 0.5 cm hypoechoic nodule in subtenons tissues of the 4:00 right breast consistent with an infected sebaceous cyst. On February 05, 2018 a left breast ultrasound was performed suggesting a 7 x 6 x 3 mm lymph node 1 o'clock position left breast. Finally on February 05 there is a diagnostic left mammogram done at [facility] BI-RADS Category 4 there is persistent architectural distortion with faint calcification seen in the inferior medial aspect of the left breast biopsy recommended ROS General General: No weight change, appetite, fatigue, colon cancer, breast cancer or weakness HEENT HEENT: No difficulty swallowing, eye injury, eye surgery, swollen glands or hoarseness Endo Endocrine: No thyroid disease, diabetes mellitus, thyroid cancer, Hair loss, heat intolerance or cold intolerance Skin Skin: No rash or changing moles Breast Breast: Yes left breast lump, breast pain and abnormal mammogram; no right breast lump, nipple discharge, abnormal US or breast enlargement Neuro Neurologic: No weakness Exam Const General: other (Very heavy odor of tobacco) [facility] Head: other (Edentulous) Chest Breast Palpation: No nipple discharge Other: Right breast: Medial 4:00 erythema 2.5 cm in diameter superficial tender. No additional right breast mass. No axillary or clavicular adenopathy Left breast: Diffuse mild fibrous change. No focally concerning mass. No nipple discharge. No axillary or clavicular adenopathy Assessment AND Plan Problems 1. Abnormal mammogram of left breast R92.8 2. Sebaceous cyst of skin of right breast N60.81 Plan I am recommending the patient a stereotactic needle core biopsy clustered micro calcifications with vague density lower inner left breast. She is aware of the technique, benefits, risks and alternatives. We will schedule and expedite her care I offered the patient today incision and drainage of her suspected infected sebaceous cyst of the right breast. She declined that offer and states that she will be following up with Dr. Cunningham requesting that he proceed with that. I appreciate the opportunity of assisting with her surgical care Cc: Dr. Link and Dr. Octavio Patel M.D., F.A.C.S. Orders Orders: Medications Discontinued: clindamycin HCl Discontinued Reason: Order C300 mg (2 x 150 mg) PO TID Renetta Recio ompleted Coding Level of Care Code Off vis,est,level 3 Diagnoses Abnormal mammogram of left breast R92.8 Sebaceous cyst of skin of right breast N60.81 Laterality: right 02/11/18 0743 <Electronically signed by Florin Patel MD> Date Florin Patel MD Cosigner Signature: Date (if applicable) CC: Logan Cunningham MD; Yassine Link MD BREAST LIMITED Observed: 02/05/2018 Status: F Source: [place] 1:44 PM REPOSITORY [facility] Imaging Services [address] [place] [address] Breast Limited Unilateral MR#: [id number] Acct: [id number] Name: ANNE KUHN Rep #: [id number] : 1985 F 32 From: Willy Hilliard MD PCP: Yassine Link MD Status: REG CLI Study: Breast Limited Unilateral Date of Exam: 02/05/18 Exam# [id number] Ordering Dr: Logan Cunningham MD STUDY: ULTRASOUND BREAST - LEFT REASON FOR EXAM: Female, 32 years old. Abnormal screening mammogram. TECHNIQUE: Axial and longitudinal images of the LEFT breast were performed with a high resolution ultrasound transducer. COMPARISON: Comparison is made with prior mammogram dated February 05, 2018 and January 30, 2018. Comparison is also made with prior ultrasound of the left breast dated February 12, 2017. FINDINGS: LEFT Breast: There is a 7 mm x 6 mm x 3 mm lymph node at 1:00 position of the breast at the 4 cm from nipple. Mild degree of dilated subareolar ducts. US/Breast Limited Unilateral IMPRESSION: Small lymph node at the 1:00 position the breast at 4 cm from nipple. ASSESSMENT CATEGORY: BIRADS Category 2: Benign. A letter regarding these results will be sent to the patient by the facility within 30 days. Electronically Signed: Willy Hilliard MD at 8:06 EDT Tel [phone], Service support , CC: Logan Cunningham MD; Yassine Link MD Budget Record Clerk: Signed DIAG MAMM W/CAD, Observed: 02/05/2018 Status: F Source: [place] 1:43 PM REPOSITORY [facility] Imaging Services [address] [place] [address] DIAG MAMM W/CAD, UNILAT MR#: [id number] Acct: [id number] Name: ANNE KUHN Rep #: [id number] : 1985 F 32 From: Willy Hilliard MD PCP: Yassine Link MD Status: REG CLI Study: DIAG MAMM W/CAD, UNILAT Date of Exam: 02/05/18 Exam# [id number] Ordering Dr: Logan Cunningham MD MAMMOGRAPHY - UNILATERAL DIAGNOSTIC: LEFT BREAST REASON FOR EXAM: Female, 32 years old. Abnormal screening mammogram. PERTINENT HISTORY: Non-contributory. TECHNIQUE: Compression spot views of the left breast were obtained. CAD: Full Field Digital Mammography with Computer Added Detection was performed. COMPARISON: Comparison is made with prior study dated January 30, 2018. FINDINGS: Breast Composition: The breasts are heterogeneously dense, which may obscure small masses. Persistent architectural distortion with faint calcifications is seen in the inferior medial aspect of the left breast. A biopsy recommended for further evaluation. No other significant abnormalities are identified. [facility]/DIAG MAMM W/CAD, UNILAT IMPRESSION: Persistent architectural distortion with calcification as described. A biopsy recommended for further evaluation. ASSESSMENT CATEGORY: BIRADS Category 4: Suspicious - Biopsy Should Be Considered. A letter regarding these results will be sent to the patient by the facility within 30 days. Approximately 10% of breast cancers are not detected by mammography. A normal mammogram should not delay biopsy of a clinically suspicious abnormality. Electronically Signed: Willy Hilliard MD at 15:16 EDT Tel [phone], Service support , CC: Logan Cunningham MD; Yassien Link MD Budget Record Clerk: Signed PROGRESS Observed: 02/05/2018 Status: COMPLETED Source: [place] 10:09 AM [facility] REPOSITORY HNO ID: [id number] Author: Kim Posada Rt Service: (none) Author Type: (none) Type: Progress Notes Filed: 02/05/2018 10:10 AM Note Text: RADIOLOGY SERVICE PROGRESS NOTE DATE OF SERVICE: February 05, 2018 TIME OF SERVICE: 929 EVENT: EXAM/PROCEDURE NOT COMPLETED - Patient became claustrophobic, reaction was: Moderate. ADDITIONAL DATA: N/A SIGNATURE: Kim Posada Rt PATIENT NAME: Anne Kuhn DATE: February 05, 2018 TIME: 10:09 AM PAGER/CONTACT #: PROGRESS Observed: 02/05/2018 Status: COMPLETED Source: [place] 10:09 AM [facility] REPOSITORY HNO ID: [id number] Author: Kim Berrios Service: (none) Author Type: (none) Type: Progress Notes Filed: 02/05/2018 10:09 AM Note Text: RADIOLOGY SERVICE PROGRESS NOTE DATE OF SERVICE: February 05, 2018 TIME OF SERVICE: 929 EVENT: EXAM/PROCEDURE NOT COMPLETED - Patient became claustrophobic, reaction was: Moderate. ADDITIONAL DATA: N/A SIGNATURE: Kim Berrios PATIENT NAME: Anne Kuhn DATE: February 05, 2018 TIME: 10:09 AM PAGER/CONTACT #: PROGRESS Observed: 02/05/2018 Status: COMPLETED Source: [place] 9:00 AM [facility] REPOSITORY HNO ID: [id number] Author: Kim Berrios Service: (none) Author Type: (none) Type: Progress Notes Filed: 02/05/2018 9:01 AM Note Text: Radiology Service Progress Note PATIENT NAME: Anne Kuhn DATE OF SERVICE: February 05, 2018 TIME: 9:01 AM PATIENT IDENTITY VERIFICATION COMPLETED USING TWO (2) METHODS: Patient confirmed name verbally and Date of . PATIENT GENDER DATA: Female. status: : No status: NO. PATIENT RELEVANT IMPLANT DATA REVIEWED: Yes RADIOLOGY DEPARTMENT: MR; Exam(s) Completed: Spine: Lumbar spine PERIPHERAL IV DATA: Not applicable SIGNED BY: Kim Posada Rt February 05, 2018 9:01 AM MRI LUMBAR SPINE WO Observed: 02/05/2018 Status: F Source: [place] 8:55 AM [facility] REPOSITORY * * *Final Report* * * DATE OF EXAM: Feb 05 2018 8:55AM [facility] 0303 - MRI LUMBAR SPINE WO IVCON / PROCEDURE REASON: multiple diagnoses * * * * Physician Interpretation * * * * EXAMINATION: MRI LUMBAR SPINE WO IVCON HISTORY: Low back pain. Mixed incontinence TECHNIQUE: Routine lumbosacral spine MR protocol without gadolinium. MQ: [id number] COMPARISON: None. RESULT: Counting reference: Lumbosacral junction. For the purposes of this report, L4-5 is considered the level of the iliac crest. Alignment: Alignment is anatomic. Bone marrow signal/fracture: Multilevel small Schmorl's node deformities. Probable small intraosseous hemangioma in the T11 body. No evidence of pathologic marrow infiltration. No evidence of prior fracture. Conus: The conus is within normal limits of signal intensity and morphology. Paraspinal soft tissues: Paraspinal soft tissues are within normal limits. Lower thoracic spine: Visualized lower thoracic canal and foramina are patent. T12-L1: Canal and foramina are patent. L1-L2: Canal and foramina are patent. L2-L3: Canal and foramina are patent L3-L4: Canal and foramina are patent L4-L5: Canal and foramina are patent L5-S1: Canal and foramina are patent Sacrum and iliac wings: The visualized sacrum and iliac wings are within normal limits. IMPRESSION: MRI lumbar spine demonstrates no significant canal or foraminal stenosis. Budget Record Clerk: PSCB Transcribe Date/Time: Feb 05 2018 9:09A Dictated by : DAVE RAMIREZ MD This examination was interpreted and the report reviewed and electronically signed by: DAVE RAMIREZ MD on Feb 05 2018 9:17AM EST [id number] [id number] LIMITED Observed: 01/30/2018 Status: F Source: [place] 1:12 PM REPOSITORY [facility] Imaging Services [address] [place] [address] Breast Limited Unilateral MR#: [id number] Acct: [id number] Name: ANNE KUHN Rep #: [id number] : 1985 F 32 From: Willy Hilliard MD PCP: Yassine Link MD Status: REG CLI Study: Breast Limited Unilateral Date of Exam: 01/30/18 Exam# [id number] Ordering Dr: Logan Cunningham MD STUDY: ULTRASOUND BREAST - RIGHT REASON FOR EXAM: Female, 32 years old. Palpable lump in the right breast. TECHNIQUE: Axial and longitudinal images of the RIGHT breast were performed with a high resolution ultrasound transducer. COMPARISON: Comparison is made with prior mammogram done earlier today. Comparison is also made with prior sonogram of the right breast dated February 12, 2017. FINDINGS: RIGHT Breast: The palpable abnormality corresponds to a 1.4 cm x 2.2 cm x 0.5 cm hypoechoic nodular density in the subcutaneous tissue just deep to the skin. This is at the 4:00 position breast that sinus from the nipple. This most likely corresponds to an infected sebaceous cyst. Clinical correlation is recommended. US/Breast Limited Unilateral IMPRESSION: The palpable abnormality corresponds to a 1.4 cm x 2.2 cm x 0.5 cm hypoechoic nodule in the subcutaneous tissues just deep to the skin at the palpable site. This most likely represents an infected sebaceous cyst. Clinical correlation is recommended. ASSESSMENT CATEGORY: BIRADS Category 2: Benign. A letter regarding these results will be sent to the patient by the facility within 30 days. Electronically Signed: Willy Hilliard MD at 14:48 EST Tel [phone], Service support , CC: Logan Cunningham MD; Yassine Link MD Budget Record Clerk: Signed DIAG MAMM W/CAD, Observed: 01/30/2018 Status: F Source: [place] 1:12 PM REPOSITORY [facility] Imaging Services [address] [place] [address] DIAG MAMM W/CAD, BILAT MR#: [id number] Acct: [id number] Name: ANNE KUHN Rep #: [id number] : 1985 F 32 From: Willy Hilliard MD PCP: Yassine Link MD Status: REG CLI Study: DIAG MAMM W/CAD, BILAT Date of Exam: 01/30/18 Exam# [id number] Ordering Dr: Logan Cunningham MD MAMMOGRAPHY - BILATERAL DIAGNOSTIC REASON FOR EXAM: Female, 32 years old. PERTINENT HISTORY: Palpable abnormality in the right breast. TECHNIQUE: Digital bilateral breast alonso (3D mammographic acquisition) in the CC and MLO projections. 2-D mediolateral oblique (MLO) and craniocaudad (CC) views of both breasts were obtained. CAD: Full Field Digital Mammography with Computer Added Detection was performed. COMPARISON: Comparison is made with prior study dated February 12, 2017. FINDINGS: Breast Composition: The breasts are heterogeneously dense, which may obscure small masses. There is evidence of a focal area of architectural distortion in the mid lateral portion of the left breast corresponding to the 3 or 4:00 position. The patient will be recalled for additional views including compression spot views. No other significant abnormalities are identified. [facility]/DIAG MAMM W/CAD, BILAT IMPRESSION: Focal area of architectural distortion at the 3:00 position of the left breast as described. The patient will be recalled for additional views. Recall Side: Left Breast ASSESSMENT CATEGORY: BIRADS Category 0: Incomplete. Need additional imaging evaluation. A letter regarding these results will be sent to the patient by the facility within 30 days. Approximately 10% of breast cancers are not detected by mammography. A normal mammogram should not delay biopsy of a clinically suspicious abnormality. Electronically Signed: Willy Hilliard MD at 14:52 EST Tel [phone], Service support , CC: Logan Cunningham MD; Yassine Link MD Budget Record Clerk: Signed DISCHARGE INSTRUCTION Observed: 01/26/2018 Status: F Source: [place] 8:42 PM REPOSITORY [facility] Medical Records Department [facility] [place] [address] Discharge Instruction 01/26/182040 MR#: [id number] Acct: [id number] Name: ANNE KUHN Rep #: [id number] : 1985 32 From: Wes Carter MD PCP: Yassine Link MD Status: PRE ER ED Disposition - Plan for ED Patient: Disposition: Home or Assisted Living Chief Complaint: Abscess Instructions: ED Infec Skin Cellulitis Prescriptions: Naproxen [Naprosyn] 500 mg PO BID PRN #20 tab Clindamycin [Cleocin] 300 mg PO TID #60 cap Referrals: Yassine Link MD [Primary Care Provider] - What to do if you have Problems For any increased pain, shortness of breath, bleeding, nausea or vomiting, chest pain, or any unexpected problems, contact your Primary Care Provider. Call [facility] ([phone]) or report to the closest Emergency Room. Call 911 if necessary. 01/26/182041 <Electronically signed by Wes Carter MD> Date Wes Carter MD Cosigner Signature (If Indicated): Date CC: Yassine Link MD EMERGENCY DEPARTMENT Observed: 01/26/2018 Status: F Source: [place] SUMMARY 8:41 PM REPOSITORY [facility] Medical Records Department [address] [place] [address] Emergency Department Summary 01/26/182039 MR#: [id number] Acct: [id number] Name: ANNE KUHN Rep #: [id number] : 1985 32 From: Wes Carter MD PCP: Yassine Link MD Status: PRE ER - ER Visit Summary Date of Service: 01/26/18 Chief Complaint: Right breast abscess History of Present Illness: The patient is a 32 F who presents with a right breast abscess. She has noticed that there for 10 days. It is painful. No fevers no drainage. States she had abnormal mammogram a few months back and had a biopsy but does not know the results. Physical Examination: Vital signs reviewed. Right breast reveals an erythematous area below the nipple. There is no induration. No fluctuance or drainage Test Results: None indicated Emergency Department Course and Treatment: Patient likely has a small abscess. It is not amenable to I AND D at this time. I will treat with clindamycin and naproxen. Will need to follow-up with her RENAL TECHNICIAN Treatment Plan: [] Disposition: Discharge Impression: Right breast abscess This note was generated with ME911 dictation software. It may contain incorrect words, spelling, and punctuation that were not noted in review of the chart prior to signing ED Disposition - Plan for ED Patient: Chief Complaint: Abscess Referrals: Yassine Link MD [Primary Care Provider] - What to do if you have Problems For any increased pain, shortness of breath, bleeding, nausea or vomiting, chest pain, or any unexpected problems, contact your Primary Care Provider. Call [facility] ([phone]) or report to the closest Emergency Room. Call 911 if necessary. 01/26/182040 <Electronically signed by Wes Carter MD> Date Wes Carter MD Cosigner Signature (If Indicated): Date CC: Yassine Link MD PROGRESS Observed: 01/21/2018 Status: COMPLETED Source: [place] 10:06 AM [facility] REPOSITORY HNO ID: [id number] Author: Beatrice (Hat Sizer) Older Service: (none) Author Type: Nurse Practitioner Type: Progress Notes Filed: 01/21/2018 11:12 AM Note Text: CC: Patient presents with: Back Pain (Upper Back): ongoing x 2 months; sharp and burning pain radiates into neck and left arm numb HPI Anne Kuhn is a 32 year old female who presents with back pain for 2-3 months. Located in along spine upper lumbar up to thoracic and neck. Neck pain also on the left side, radiates down left arm. Described as sharp and burning and rated 8 out of 10, constant Cause: nothing that the patient is aware of Pain is aggravated by walking and prolonged sitting. Associated symptoms include weakness, numbness, tingling in the left arm. Positive for urgency and stress incontinence x 2-3 months which started around the time that back pain started. Trouble holding urine but does have sensory awareness. Evaluated by [employer] for this, started on medication. Denies: leg weakness, numbness or tingling. No fever or unintended weight loss. Also denies constipation and history of cancer. Treatments tried: Flexeril, Tylenol and Naproxen with temporary relief. Past medical history is significant for low back pain, went to PT about 2 years ago. Resolved until recently. Also concerned about red lump on right breast. Started a week ago and getting worse. Painful. No drainage. PAST MEDICAL HISTORY Diagnosis Date - Abdominal pain - Abdominal pain, epigastric - ASTHMA UNSPECIFIED 07/26/2006 - BIPOLAR DISORDER NOS 07/26/2006 - Esophageal reflux 08/23/2006 - Hidradenitis 01/15/2007 - Irritable bowel syndrome 03/15/2012 - Mastodynia 08/23/2006 - Tobacco use disorder 12/25/2006 PAST SURGICAL HISTORY Procedure Laterality Date - BREAST BIOPSY W/ULTRASOUND GUIDANCE Left 03/02/2017 - COLONOSCOP W/ OR W/O [facility] SPEC 06/11/2012 Colonoscopy - COLONOSCOP W/ OR W/O [facility] SPEC 11/08/2016 Colonoscopy mac - EGD W/O [facility] SPECIMEN W/BX 10/26/09 - EGD W/O OR W/BRUSH/WASH 07/21/2011 EGD - EGD W/O OR W/BRUSH/WASH 11/08/2016 EGD mac - EXT HYSTERECTOMY,W/PARTIAL VAGINECTO 04/2015 - L'SCOPE DX W/WO BRUSHINGS/WASHINGS Laparoscopy twice - PAST SURGICAL HISTORY OF dental extraction ALLERGIES Bees; Morphine; Penicillins; Tessalon [Benzonatate]; Valium [Diazepam] MEDICATIONS oxybutynin (DITROPAN) 5 mg tablet Take 1 tablet by mouth twice daily. LORazepam (ATIVAN) 0.5 mg tab Take by mouth three times daily as needed. mometasone (ASMANEX) 220 mcg (60 doses) aepb Inhale 1 Puff as instructed twice daily. albuterol HFA (PROVENTIL HFA, VENTOLIN HFA) 90 mcg/actuation inhaler Inhale 2 Puffs as instructed every 6 hours as needed for Wheezing/Shortness of Breath. albuterol (PROVENTIL) 2.5 mg /3 mL (0.083 %) nebulizer solution Use 3 mL via nebulizer three times daily as needed. OVER 5-15 MINUTES. FOR WHEEZING AND SHORTNESS OF BREATH. pantoprazole DR (PROTONIX) 20 mg tablet TAKE TWO TABLETS BY MOUTH DAILY promethazine (PHENERGAN) 25 mg tablet Take 1 tablet by mouth every 6 hours as needed for Nausea/Vomiting. EPINEPHrine (EPIPEN) 0.3 mg/0.3 mL auto-injector GIVE ONE DOSE INTO LATERAL THIGH FOR ALLERGIC REACTION. REPEAT DOSE IN 5-15 MINUTES IF NOT IMPROVING traZODone (DESYREL) 50 mg tablet Take 1 tablet by mouth daily at bedtime. [facility] Nebulizer NEBULIZER, TUBING, AND MOUTHPIECE FOR HOME USE. DX: J45.909 busPIRone HCl 30 mg tablet Take 1 tablet by mouth twice daily. ARIPiprazole (ABILIFY) 10 mg tablet Take 1 tablet by mouth once daily. naproxen (NAPROSYN) 500 mg tablet Take 1 tablet by mouth twice daily with meals. cyclobenzaprine (FLEXERIL) 10 mg tablet Take 1 tablet by mouth three times daily as needed for Muscle Spasm. FAMILY HISTORY Problem Relation Age of Onset - Asthma Mother - Headache Mother migraine - Psychiatry Mother depression, - Arthritis Mother chronic pain, fibromyalgia - Cancer Mother ovarian (ovarian remit syndrome had since 1991 with a complete hysterectomy)/ cancer of foot - Heart Mother disease - pneumonia [OTHER] Mother lupus - Hypertension Father - Heart Father - Diabetes Paternal Grandmother - Stroke Paternal Grandmother - Diabetes Paternal Grandfather - Heart Paternal Grandfather - Asthma Maternal Grandmother - Cancer Maternal Grandfather lymph node Social History Substance Use Topics - Smoking status: Current Every Day Smoker Packs/day: 1.00 Years: 14.00 Types: Cigarettes - Smokeless tobacco: Never Used - Alcohol use No REVIEW OF SYSTEMS See HPI PHYSICAL EXAM BP 100/80 Pulse 82 Temp 36.8 ?C (98.2 ?F) (Temporal Artery) Resp 14 Wt 70.8 kg (156 lb) LMP 05/16/2015 SpO2 98% BMI 30.47 kg/m2 General Appearance: in no acute distress, alert, appears uncomfortable Skin: No rashes or lesions Spine: Normal to inspection. Moderate to severe tenderness with palpation of thoracic, lumbar and cervical spine and with palpation of left thoracic paraspinal muscles. ROM lumbar and cervical: Full but painful except alleviated somewhat with flexion. Reflexes:2+ and symmetric both upper and lower. Muscle strength: 5/5 both upper and lower. SLR: Supine - Right Positive, Left Positive Seated - Right Negative, Left Negative. Lungs: Lungs clear to auscultation. No wheezing, rhonchi, rales Heart: RRR without murmur, gallop, or rubs. No ectopy Extremities: Negative findings: cap refill < 2 sec, 2+ radial and pedal pulses Right breast: Small area of induration with overlying erythema and increased warmth located in the 4 o'clock position approximately 1/2 inch from nipple. Tender with palpation. No fluctuance or red streaking. ASSESSMENT/PLAN: 1. Cervical radiculopathy - ICD9: 723.4, ICD10: M54.12 (primary diagnosis) Concerning symptoms include weakness in left arm. Exam benign. - Ice for localized tenderness - Warm moist heat for 20 min three times a day - NSAIDS- OTC - Muscle relaxant previously prescribed - MRI indicated due to neurological symptoms- see orders - Patient given instructions use of medications as ordered - Patient plans on scheduling appointment with [facility] spine medicine but was told she couldn't do this until she had MRI done - MRI CERVICAL SPINE WO IVCON 2. Thoracic spine pain - ICD9: 724.1, ICD10: M54.6 As above - MRI THORACIC SPINE WO IVCON 3. Lumbar back pain - ICD9: 724.2, ICD10: M54.5 Unclear if urinary incontinence is related, started around the same time as back pain Plan as above - MRI LUMBAR SPINE WO IVCON 4. Numbness and tingling in left arm - ICD9: 782.0, ICD10: R20.0, R20.2 As above - MRI THORACIC SPINE WO IVCON 5. Pain in left arm - ICD9: 729.5, ICD10: M79.602 As above - MRI THORACIC SPINE WO IVCON 6. Mixed stress and urge urinary incontinence - ICD9: 788.33, ICD10: N39.46 Continue with medications and follow-up as instructed by [facility] Plan as above - MRI LUMBAR SPINE WO IVCON 7. Abscess of breast, right - ICD9: 611.0, ICD10: N61.1 - Begin treatment with Cephalaxin (Keflex) - No lymphangetic streaking, this was defined for patient to watch for and to seek medical care immediately if appears - Area of cellulitis defined with pen, seek further attention if this area continues to enlarge - Follow up for recheck with [facility] if no improvement after 3-5 days Prescription instructions reviewed with patient as applicable. Potential red flag symptoms discussed with the patient. Reviewed appropriate action plan to take if red flag symptoms occur. Patient agreeable to treatment plan. Beatrice Camargo CNP Observed: 01/17/2018 Status: F Source: [place] CULTURE, URINE 2:53 PM REPOSITORY Urine Culture Below infection level. ORGANISM 1: Mixed Gram Pos AND Gram Neg Org Premium Count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 epigastric [R10.13] INVALID FOR*03/15/2012 Disturbance of skin sensation [R20.9] INVALID FOR*01/03/2011 Cervicalgia [M54.2] INVALID FOR*01/03/2011 Nausea [R11.0] INVALID FOR* Abdominal pain, right upper quadrant [R10.11] INVALID FOR*03/15/2012 Gastritis/duodenitis [K29.70, K29.90] INVALID FOR*03/15/2012 Acute gastritis without mention of hemorrhage [*INVALID FOR*03/15/2012 Irritable bowel syndrome [K58.9] INVALID FOR* Abdominal pain, chronic, generalized [R10.84, G*INVALID FOR* ASCUS (atypical squamous cells of undetermined *INVALID FOR* Myofascial pain [M79.1] INVALID FOR* Pain of left thumb [M79.645] INVALID FOR* Raynaud's phenomenon without gangrene [I73.00] INVALID FOR* Abnormal mammogram [R92.8] INVALID FOR* Other instructions from your clinician: Rest from activities that strain neck. Make sure pillow is adequate to maintain neutral neck position if lying on side or back. Rolling up a soft blanket or towel in the bottom of your pillow case may provide extra support. You could also get a cervical pillow. You may try gentle range of motion stretches laying on your back on a firm surface so that your postural neck muscles are relaxed. You can then turn to either direction to the point pain occurs, hold it, and then attempt to turn a few degrees further until you are able to get your chin to the shoulder. If this make pain or stiffness worse, stop. Gentle massage, moist heat for 10-15 minutes, or lineaments may help with pain and are fine to use. If pain worsens, numbness, tingling of loss of sensation or strength is occurring, please call us immediately.? If your neck pain persists, we may consider physical therapy to help. Prescriptions ordered this encounter Disp Refills Start End NAPROXEN 500 MG TABLET 20 t* 0 12/17/2017 Route: ORAL Sig: Take 1 tablet by mouth twice daily with meals. CYCLOBENZAPRINE 10 MG TABLET 30 t* 0 12/17/2017 Route: ORAL Sig: Take 1 tablet by mouth three times daily as needed for Muscle Spasm. Medications Discontinued During This Encounter naloxegol (MOVANTIK) 25 mg tablet 30 t* 3 12/12/2017 12/17/2017 Route: ORAL Sig: Take 1 tablet by mouth once daily. Disc: Discontinued by Patient Follow-up and Disposition History Recorded Encounter Status:Closed by PODLOGSOLEDAD DIAZ CNP on 12/17/17 PROGRESS Observed: 12/12/2017 Status: COMPLETED Source: [place] 4:01 PM [facility] REPOSITORY HNO ID: [id number] Author: Ajay Chan Service: (none) Author Type: Physician Type: Progress Notes Filed: 12/12/2017 4:43 PM Note Text: Abdominal Pain and Constipation HPI: Anne Kuhn is a 32 year old female who presents for Abdominal Pain and Constipation. Patient states she was sent here by Dr Cunningham to evaluate patient prior to surgical removal of left ovary. She complains of constant LLQ abdominal pain for aprox a year that is very painful with intercourse. States she has also been having mid pelvic pain for years. She complains of constant nausea. She denies diarrhea , constipation or rectal bleeding. 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 She complains of epigastric pain for 6 years. She complains of painful dysphagia for the the past 6 months. She is on Protonix with break-thru heartburn and reflux a couple times a week. She denies melenic stools. Record Review: [facility] records reviewed PAST MEDICAL HISTORY Diagnosis Date - Abdominal pain - Abdominal pain, epigastric - ASTHMA UNSPECIFIED 07/26/2006 - BIPOLAR DISORDER NOS 07/26/2006 - Esophageal reflux 08/23/2006 - Hidradenitis 01/15/2007 - Irritable bowel syndrome 03/15/2012 - Mastodynia 08/23/2006 - Tobacco use disorder 12/25/2006 PAST SURGICAL HISTORY Procedure Laterality Date - BREAST BIOPSY W/ULTRASOUND GUIDANCE Left 03/02/2017 - COLONOSCOP W/ OR W/O BRSH SPEC 06/11/2012 Colonoscopy - COLONOSCOP W/ OR W/O BRSH SPEC 11/08/2016 Colonoscopy mac - EGD W/O BRSH SPECIMEN W/BX 10/26/09 - EGD W/O OR W/BRUSH/WASH 07/21/2011 EGD - EGD W/O OR W/BRUSH/WASH 11/08/2016 EGD mac - EXT HYSTERECTOMY,W/PARTIAL VAGINECTO 04/2015 - L'SCOPE DX W/WO BRUSHINGS/WASHINGS Laparoscopy twice - PAST SURGICAL HISTORY OF dental extraction Allergies: ALLERGIES Allergen Reactions - Bees Other: See Comments Pt had swelling, was given epipen at ER. - Morphine Rash Left arm turned red when given IV morphine - Penicillins Other: See Comments patient refuses due to family allergy to pcn - Tessalon [Benzonata* Rash - Valium [Diazepam] Hives Rash on chest region only Medications: HYDROcodone-acetaminophen (NORCO) 5-325 mg per tablet LORazepam (ATIVAN) 0.5 mg tab Take by mouth three times daily as needed. mometasone (ASMANEX) 220 mcg (60 doses) aepb Inhale 1 Puff as instructed twice daily. albuterol HFA (PROVENTIL HFA, VENTOLIN HFA) 90 mcg/actuation inhaler Inhale 2 Puffs as instructed every 6 hours as needed for Wheezing/Shortness of Breath. albuterol (PROVENTIL) 2.5 mg /3 mL (0.083 %) nebulizer solution Use 3 mL via nebulizer three times daily as needed. OVER 5-15 MINUTES. FOR WHEEZING AND SHORTNESS OF BREATH. pantoprazole DR (PROTONIX) 20 mg tablet TAKE TWO TABLETS BY MOUTH DAILY promethazine (PHENERGAN) 25 mg tablet Take 1 tablet by mouth every 6 hours as needed for Nausea/Vomiting. pregabalin (LYRICA) 100 mg capsule Take 1 capsule by mouth twice daily. EPINEPHrine (EPIPEN) 0.3 mg/0.3 mL auto-injector GIVE ONE DOSE INTO LATERAL THIGH FOR ALLERGIC REACTION. REPEAT DOSE IN 5-15 MINUTES IF NOT IMPROVING traZODone (DESYREL) 50 mg tablet Take 1 tablet by mouth daily at bedtime. [facility] Nebulizer NEBULIZER, TUBING, AND MOUTHPIECE FOR HOME USE. DX: J45.909 busPIRone HCl 30 mg tablet Take 1 tablet by mouth twice daily. ARIPiprazole (ABILIFY) 10 mg tablet Take 1 tablet by mouth once daily. oxyCODONE-acetaminophen (PERCOCET) 5-325 mg tablet amLODIPine (NORVASC) 5 mg tablet estradiol (ESTRACE) 2 mg tablet codeine-guaiFENesin (ROBITUSSIN AC) 10-100 mg/5 mL syrup Take 5-10 mL by mouth four times daily as needed for Cough. May cause drowsiness. amLODIPine (NORVASC) 2.5 mg tablet Take 1 tablet by mouth once daily. conjugated estrogens (PREMARIN) vaginal cream Use 0.5 g vaginally once daily. montelukast (SINGULAIR) 10 mg tablet Take 1 tablet by mouth daily at bedtime. esterified estrogens (MENEST) 2.5 mg tab Take 2.5 mg by mouth once daily. FAMILY HISTORY Problem Relation Age of Onset - Asthma Mother - Headache Mother migraine - Psychiatry Mother depression, - Arthritis Mother chronic pain, fibromyalgia - Cancer Mother ovarian (ovarian remit syndrome had since 1991 with a complete hysterectomy)/ cancer of foot - Heart Mother disease - pneumonia [OTHER] Mother lupus - Hypertension Father - Heart Father - Diabetes Paternal Grandmother - Stroke Paternal Grandmother - Diabetes Paternal Grandfather - Heart Paternal Grandfather - Asthma Maternal Grandmother - Cancer Maternal Grandfather lymph node Employer And Job Title: No employer specified (disability) Years Of Education Completed: 9 years Marital Status: Single with no children Social History Substance Use Topics - Smoking status: Current Every Day Smoker Packs/day: 1.00 Years: 14.00 Types: Cigarettes - Smokeless tobacco: Never Used - Alcohol use No Review of Systems: Review of Systems Gastrointestinal: Positive for abdominal pain. Stomach cramps Musculoskeletal: Positive for back pain. Psychiatric/Behavioral: Positive for sleep disturbance. Anxiety Depression Panic attacks All other systems reviewed and are negative. Where do you currently reside? [place]ependently Are you taking any blood thinners? No Physical Examination: Physical Exam Constitutional: She is oriented to person, place, and time and well-developed, well-nourished, and in no distress. edentulous HENT: Head: Normocephalic and atraumatic. Eyes: No scleral icterus. Neck: Neck supple. Cardiovascular: Normal rate, regular rhythm and normal heart sounds. Pulmonary/Chest: Effort normal and breath sounds normal. Abdominal: Soft. Bowel sounds are normal. There is tenderness. Mild LLQ tenderness Musculoskeletal: She exhibits no edema. Neurological: She is alert and oriented to person, place, and time. Gait normal. Skin: Skin is warm and dry. Psychiatric: Mood, memory, affect and judgment normal. Assessment/Plan: Anne was seen today for abdominal pain and constipation. Diagnoses and all orders for this visit: Gastroesophageal reflux disease without esophagitis Continue PPI LLQ pain Patient had negative colonoscopy in 10/2016 A repeat colonoscopy will not be of benefit Left lower quadrant abdominal tenderness without rebound tenderness Drug-induced constipation Will try Movantik This note was generated using ME911 voice recognition system, and there may be some incorrect words, spellings, and punctuation that were not noted in checking the note before saving. Apurva Sampson LPN CNOV Observed: 12/12/2017 Status: COMPLETED Source: [place] 3:30 PM [facility] REPOSITORY Office Visit ([facility]) ANNE KUHN ([id number]) 1985 F Date Time Provider Department 12/12/17 3:30 PM AJAY CHAN [facility] During your visit today, we recorded the following information about you: Pulse Blood pressure Weight Height 82/minute 98/60 72.6 kg 1.524 m Ajay Chan MD 12/12/2017 4:43 PM Signed Abdominal Pain and Constipation HPI: Anne Kuhn is a 32 year old female who presents for Abdominal Pain and Constipation. Patient states she was sent here by Dr Cunningham to evaluate patient prior to surgical removal of left ovary. She complains of constant LLQ abdominal pain for aprox a year ANDquot;that is very painful with intercourseANDquot;. States she has also been having mid pelvic pain for years. She complains of constant nausea. She denies diarrhea , constipation or rectal bleeding. 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 She complains of epigastric pain for 6 years. She complains of painful dysphagia for the the past 6 months. She is on Protonix with break-thru heartburn and reflux a couple times a week. She denies melenic stools. Record Review: [facility] records reviewed PAST MEDICAL HISTORY Diagnosis Date - Abdominal pain - Abdominal pain, epigastric - ASTHMA UNSPECIFIED 07/26/2006 - BIPOLAR DISORDER NOS 07/26/2006 - Esophageal reflux 08/23/2006 - Hidradenitis 01/15/2007 - Irritable bowel syndrome 03/15/2012 - Mastodynia 08/23/2006 - Tobacco use disorder 12/25/2006 PAST SURGICAL HISTORY Procedure Laterality Date - BREAST BIOPSY W/ULTRASOUND GUIDANCE Left 03/02/2017 - COLONOSCOP W/ OR W/O BRSH SPEC 06/11/2012 Colonoscopy - COLONOSCOP W/ OR W/O BRSH SPEC 11/08/2016 Colonoscopy mac - EGD W/O [facility] SPECIMEN W/BX 10/26/09 - EGD W/O OR W/BRUSH/WASH 07/21/2011 EGD - EGD W/O OR W/BRUSH/WASH 11/08/2016 EGD mac - EXT HYSTERECTOMY,W/PARTIAL VAGINECTO 04/2015 - L'SCOPE DX W/WO BRUSHINGS/WASHINGS Laparoscopy twice - PAST SURGICAL HISTORY OF dental extraction Allergies: ALLERGIES Allergen Reactions - Bees Other: See Comments Pt had swelling, was given epipen at ER. - Morphine Rash Left arm turned red when given IV morphine - Penicillins Other: See Comments patient refuses due to family allergy to pcn - Tessalon [Benzonata* Rash - Valium [Diazepam] Hives Rash on chest region only Medications: HYDROcodone-acetaminophen (NORCO) 5-325 mg per tablet LORazepam (ATIVAN) 0.5 mg tab Take by mouth three times daily as needed. mometasone (ASMANEX) 220 mcg (60 doses) aepb Inhale 1 Puff as instructed twice daily. albuterol HFA (PROVENTIL HFA, VENTOLIN HFA) 90 mcg/actuation inhaler Inhale 2 Puffs as instructed every 6 hours as needed for Wheezing/Shortness of Breath. albuterol (PROVENTIL) 2.5 mg /3 mL (0.083 %) nebulizer solution Use 3 mL via nebulizer three times daily as needed. OVER 5-15 MINUTES. FOR WHEEZING AND SHORTNESS OF BREATH. pantoprazole DR (PROTONIX) 20 mg tablet TAKE TWO TABLETS BY MOUTH DAILY promethazine (PHENERGAN) 25 mg tablet Take 1 tablet by mouth every 6 hours as needed for Nausea/Vomiting. pregabalin (LYRICA) 100 mg capsule Take 1 capsule by mouth twice daily. EPINEPHrine (EPIPEN) 0.3 mg/0.3 mL auto-injector GIVE ONE DOSE INTO LATERAL THIGH FOR ALLERGIC REACTION. REPEAT DOSE IN 5-15 MINUTES IF NOT IMPROVING traZODone (DESYREL) 50 mg tablet Take 1 tablet by mouth daily at bedtime. [facility] Nebulizer NEBULIZER, TUBING, AND MOUTHPIECE FOR HOME USE. DX: J45.909 busPIRone HCl 30 mg tablet Take 1 tablet by mouth twice daily. ARIPiprazole (ABILIFY) 10 mg tablet Take 1 tablet by mouth once daily. oxyCODONE-acetaminophen (PERCOCET) 5-325 mg tablet amLODIPine (NORVASC) 5 mg tablet estradiol (ESTRACE) 2 mg tablet codeine-guaiFENesin (ROBITUSSIN AC) 10-100 mg/5 mL syrup Take 5-10 mL by mouth four times daily as needed for Cough. May cause drowsiness. amLODIPine (NORVASC) 2.5 mg tablet Take 1 tablet by mouth once daily. conjugated estrogens (PREMARIN) vaginal cream Use 0.5 g vaginally once daily. montelukast (SINGULAIR) 10 mg tablet Take 1 tablet by mouth daily at bedtime. esterified estrogens (MENEST) 2.5 mg tab Take 2.5 mg by mouth once daily. FAMILY HISTORY Problem Relation Age of Onset - Asthma Mother - Headache Mother migraine - Psychiatry Mother depression, - Arthritis Mother chronic pain, fibromyalgia - Cancer Mother ovarian (ovarian remit syndrome had since 1991 with a complete hysterectomy)/ cancer of foot - Heart Mother disease - pneumonia [OTHER] Mother lupus - Hypertension Father - Heart Father - Diabetes Paternal Grandmother - Stroke Paternal Grandmother - Diabetes Paternal Grandfather - Heart Paternal Grandfather - Asthma Maternal Grandmother - Cancer Maternal Grandfather lymph node Employer And Job Title: No employer specified (disability) Years Of Education Completed: 9 years Marital Status: Single with no children Social History Substance Use Topics - Smoking status: Current Every Day Smoker Packs/day: 1.00 Years: 14.00 Types: Cigarettes - Smokeless tobacco: Never Used - Alcohol use No Review of Systems: Review of Systems Gastrointestinal: Positive for abdominal pain. Stomach cramps Musculoskeletal: Positive for back pain. Psychiatric/Behavioral: Positive for sleep disturbance. Anxiety Depression Panic attacks All other systems reviewed and are negative. Where do you currently reside? Independently Are you taking any blood thinners? No Physical Examination: Physical Exam Constitutional: She is oriented to person, place, and time and well-developed, well-nourished, and in no distress. edentulous HENT: Head: Normocephalic and atraumatic. Eyes: No scleral icterus. Neck: Neck supple. Cardiovascular: Normal rate, regular rhythm and normal heart sounds. Pulmonary/Chest: Effort normal and breath sounds normal. Abdominal: Soft. Bowel sounds are normal. There is tenderness. Mild LLQ tenderness Musculoskeletal: She exhibits no edema. Neurological: She is alert and oriented to person, place, and time. Gait normal. Skin: Skin is warm and dry. Psychiatric: Mood, memory, affect and judgment normal. Assessment/Plan: Anne was seen today for abdominal pain and constipation. Diagnoses and all orders for this visit: Gastroesophageal reflux disease without esophagitis Continue PPI LLQ pain Patient had negative colonoscopy in 10/2016 A repeat colonoscopy will not be of benefit Left lower quadrant abdominal tenderness without rebound tenderness Drug-induced constipation Will try Movantik This note was generated using ME911 voice recognition system, and there may be some incorrect words, spellings, and punctuation that were not noted in checking the note before saving. Apurva Sampson LPN Referring Provider: YASSINE LINK [[id number]] Allergies As of Date: 12/12/2017 Noted Allergy Reaction BEES 06/23/2011 14 - Other: See Comments Comments: Pt had swelling, was given epipen at ER. MORPHINE 11/10/2014 2 - Rash Comments: Left arm turned red when given IV morphine PENICILLINS 02/14/2011 14 - Other: See Comments Comments: patient refuses due to family allergy to pcn TESSALON (BENZONATATE) 11/03/2017 2 - Rash VALIUM (DIAZEPAM) 08/03/2015 4 - Hives Comments: Rash on chest region only Date Reviewed: 12/12/2017 Reviewed by: Apurva Sampson LPN - Fully Assessed Reason for Visit: Abdominal Pain [1] Constipation [25] Primary Visit Diagnosis:Gastroesophageal reflux disease without esophagitis [K21.9] Other Visit Diagnoses:LLQ pain [R10.32] Left lower quadrant abdominal tenderness without rebound tenderness [R10.814] Drug-induced constipation [K59.03] Order(s):naloxegol (MOVANTIK) 25 mg tabletTake 1 tablet by mouth once daily.Disp: 30 tabletRfl: 3 Prescriptions as of 12/12/2017 Sig: HYDROCODONE 5 MG-ACETAMINOPHE* LORAZEPAM 0.5 MG TABLET Take by mouth three times da* MOMETASONE 220 MCG (60 DOSES)* Inhale 1 Puff as instructed t* ALBUTEROL SULFATE HFA 90 MCG/* Inhale 2 Puffs as instructed * ALBUTEROL SULFATE 2.5 MG/3 ML* Use 3 mL via nebulizer three * PANTOPRAZOLE 20 MG TABLET,DEL* TAKE TWO TABLETS BY MOUTH HORACE* PROMETHAZINE 25 MG TABLET Take 1 tablet by mouth every * PREGABALIN 100 MG CAPSULE Take 1 capsule by mouth twice* EPINEPHRINE 0.3 MG/0.3 ML INJ* GIVE ONE DOSE INTO LATERAL TH* TRAZODONE 50 MG TABLET Take 1 tablet by mouth daily * COMPOUNDED PRESCRIPTION NEBULIZER, TUBING, AND MOUTHP* BUSPIRONE 30 MG TABLET Take 1 tablet by mouth twice * ARIPIPRAZOLE 10 MG TABLET Take 1 tablet by mouth once d* NALOXEGOL 25 MG TABLET Take 1 tablet by mouth once d* OXYCODONE-ACETAMINOPHEN 5 MG-* AMLODIPINE 5 MG TABLET ESTRADIOL 2 MG TABLET CODEINE 10 MG-GUAIFENESIN 100* Take 5-10 mL by mouth four ti* AMLODIPINE 2.5 MG TABLET Take 1 tablet by mouth once d* CONJUGATED ESTROGENS 0.625 MG* Use 0.5 g vaginally once [place]* MONTELUKAST 10 MG TABLET Take 1 tablet by mouth daily * ESTERIFIED ESTROGENS 2.5 MG T* Take 2.5 mg by mouth once horace* Medication notes this encounter OXYCODONE-ACETAMINOPHEN 5 MG-325 MG TABLET >> Apurva Sampson LPN 12/12/2017 4:00 PM >> [facility] Dec 12, 2017 4:00 PM Not taking AMLODIPINE 5 MG TABLET >> Apurva Sampson LPN 12/12/2017 3:58 PM >> [facility] Dec 12, 2017 3:57 PM Not taking ESTRADIOL 2 MG TABLET >> Apurva Sampson LPN 12/12/2017 3:59 PM >> [facility] Dec 12, 2017 3:59 PM Not taking CODEINE 10 MG-GUAIFENESIN 100 MG/5 ML ORAL LIQUID >> Apurva Sampson LPN 12/12/2017 3:58 PM >> [facility] Dec 12, 2017 3:58 PM Not taking AMLODIPINE 2.5 MG TABLET >> Apurva Sampson LPN 12/12/2017 3:57 PM >> [facility] Dec 12, 2017 3:57 PM Not taking CONJUGATED ESTROGENS 0.625 MG/GRAM VAGINAL CREAM >> Apurva Sampson LPN 12/12/2017 3:58 PM >> [facility] Dec 12, 2017 3:58 PM Not taking MONTELUKAST 10 MG TABLET >> Apurva Sampson LPN 12/12/2017 4:00 PM >> [facility] Dec 12, 2017 4:00 PM Not taking ESTERIFIED ESTROGENS 2.5 MG TABLET >> Apurva Sampson LPN 12/12/2017 3:58 PM >> [facility] Dec 12, 2017 3:58 PM Not taking Problem List As Of Date 12/12/2017 Noted Resolved BIPOLAR DISORDER NOS [F31.9] INVALID FOR* Asthma [J45.909] INVALID FOR* Mastodynia [N64.9] INVALID FOR* ESOPHAGEAL REFLUX [K21.9] INVALID FOR* Pruritus of genital organs [L29.3] INVALID FOR*01/03/2011 TOBACCO USE DISORDER [F17.200] INVALID FOR* HIDRADENITIS [L73.2] INVALID FOR* LUMBAGO [M54.5] INVALID FOR* Dysuria [R30.0] INVALID FOR*01/03/2011 Abdominal pain, generalized [R10.84] INVALID FOR*01/03/2011 Abdominal pain, epigastric [R10.13] INVALID FOR*03/15/2012 Disturbance of skin sensation [R20.9] INVALID FOR*01/03/2011 Cervicalgia [M54.2] INVALID FOR*01/03/2011 Nausea [R11.0] INVALID FOR* Abdominal pain, right upper quadrant [R10.11] INVALID FOR*03/15/2012 Gastritis/duodenitis [K29.70, K29.90] INVALID FOR*03/15/2012 Acute gastritis without mention of hemorrhage [*INVALID FOR*03/15/2012 Irritable bowel syndrome [K58.9] INVALID FOR* Abdominal pain, chronic, generalized [R10.84, G*INVALID FOR* ASCUS (atypical squamous cells of undetermined *INVALID FOR* Myofascial pain [M79.1] INVALID FOR* Pain of left thumb [M79.645] INVALID FOR* Raynaud's phenomenon without gangrene [I73.00] INVALID FOR* Abnormal mammogram [R92.8] INVALID FOR* Prescriptions ordered this encounter Disp Refills Start End NALOXEGOL 25 MG TABLET 30 t* 3 12/12/2017 Route: ORAL Sig: Take 1 tablet by mouth once daily. Disposition: Return if symptoms worsen or fail to improve. Follow-up and Disposition History Recorded Encounter Status:Closed by AJAY CHAN MD on 12/12/17 DISCHARGE INSTRUCTION Observed: 12/03/2017 Status: F Source: [place] 6:39 PM REPOSITORY [facility] Medical Records Department [address] [place] [address] Discharge Instruction 12/03/17 1837 MR#: [id number] Acct: [id number] Name: ANNE KUHN Rep #: [id number] : 1985 32 From: Lorie Madison MD PCP: Yassine Link MD Status: REG ER ED Disposition - Plan for ED Patient: Chief Complaint: Abd Pain Instructions: ED Cyst Ovarian Prescriptions: Oxycodone HCl/Acetaminophen [Percocet 5/325] 1 tablet PO Q6H PRN PRN #6 tablet PRN Reason: Pain Referrals: Yassine Link MD [Primary Care Provider] - What to do if you have Problems For any increased pain, shortness of breath, bleeding, nausea or vomiting, chest pain, or any unexpected problems, contact your Primary Care Provider. Call [facility] ([phone]) or report to the closest Emergency Room. Call 911 if necessary. 12/03/17 1839 <Electronically signed by Lorie Madison MD> Date Lorie Madison MD Cosigner Signature (If Indicated): Date CC: Yassine Link MD EMERGENCY DEPARTMENT Observed: 12/03/2017 Status: F Source: [place] SUMMARY 6:37 PM REPOSITORY [facility] Medical Records Department [address] [place] [address] Emergency Department Summary 12/03/17 1537 MR#: [id number] Acct: [id number] Name: ANNE KUHN Rep #: [id number] : 1985 32 From: Lorie Madison MD PCP: Yassine Link MD Status: REG ER - ER Visit Summary Date of Service: 12/03/17 Chief Complaint: Left lower quadrant pain History of Present Illness: The patient is a 32 F presenting with left lower quadrant pain 10 days. She states she has a history of ovarian cysts. She states that her ovary is supposed to be removed in January per Dr. Cunningham. She has been taking ibuprofen at home with no relief. She has nausea with no vomiting. Denies possibility of . Denies urinary complaints. Physical Examination: Vitals are stable. Patient is afebrile. Alert no acute distress. HEENT exam is unremarkable. Neck is supple. Lungs are clear and equal bilaterally. Heart is regular rate and rhythm. Abdomen is soft left lower quadrant tenderness, no rebound or guarding. Extremities are unremarkable. Skin is warm and dry. Remainder of exam is unremarkable. Emergency Department Course and Treatment: Patient is given Toradol, Zofran. CBC, chemistries unremarkable. Urinalysis is normal. HCG negative. Ultrasound shows 2.4 x 2.1 cm complex lesion in the left ovary with a moderate amount of free fluid. This may represent a hemorrhagic cyst. Further evaluation with MRI or a follow- up ultrasound is recommended to document resolution. Patient is resting comfortably in the emergency department. She is given a short course of Percocet. She is advised to follow-up with Dr. Cunningham. Advised to return to the ED for worsening complaints. Disposition: Discharge home Impression: Left ovarian cyst This note was generated with ME911 dictation software. It may contain incorrect words, spelling, and punctuation that were not noted in review of the chart prior to signing ED Disposition - Plan for ED Patient: Chief Complaint: Abscess Referrals: Yassine Link MD [Primary Care Provider] - What to do if you have Problems For any increased pain, shortness of breath, bleeding, nausea or vomiting, chest pain, or any unexpected problems, contact your Primary Care Provider. Call [employer] [facility] ([phone]) or report to the closest Emergency Room. Call 911 if necessary. 12/03/17 4837 <Electronically signed by Lorie Madison MD> Date Lorie Madison MD Cosigner Signature (If Indicated): Date CC: Yassine Link MD URINALYSIS, COMPLETE Collected: 12/03/2017 Status: F Source: [place] 5:20 PM REPOSITORY Order Comment: How was Urine Obtained? CLEAN CATCH TYPE CODE TESTS RESULT OUT OF RANGE REFERENCE UNITS LAB L400.3000 Yellow COLOR Normal Yellow LAB L400.3050 Clear Normal CLARITY Sl. Cloudy LAB L400.3200 Normal mg/dl Normal GLUCOSE, UR Normal LAB L400.3300 Negative mg/dL Normal BILIRUBIN URINE Negative LAB L400.3400 Negative mg/dl Normal KETONE UR Negative LAB L400.3465 1.002-1.030 Normal SP.GR. DIPSTX 1.010 LAB L400.3550 5.0 - 8.0 pH UR Normal 7.0 LAB L400.3600 Negative mg/dl PROT Normal DIPSTX Negative LAB L400.3700 Normal mg/dl Normal UROBILI Normal LAB L400.3750 Negative Normal NITRITE UR Negative LAB L400.3780 Negative /ul Normal OCCULT BLOOD-UR Negative LAB L400.3800 Negative /ul LEUK Normal ESTERASE Negative LAB L400.4050 0-5 /hpf WBC 0 Normal SEEN LAB L400.4100 0-5 /hpf 0 Normal RBC-UA SEEN LAB L400.4150 5-10 /hpf SQUAM Normal EPI 0-5 SEEN LAB L400.4300 None Seen /hpf 0 Normal BACTERIA SEEN LAB L400.4350 <or=2+ /hpf 1+ Normal MUCUS, URINE Performed By: #### L400.0001 #### [facility] [address] [place], [address] CBC W/DIFF, AUTOMATED Collected: 12/03/2017 Status: F Source: [place] 3:40 PM REPOSITORY TYPE CODE TESTS RESULT OUT OF RANGE REFERENCE UNITS LAB L100.1000 4.4-11.0 K/mm3 Normal WBC 10.8 LAB L100.1200 4.2-5.4 M/mm3 Normal RBC 4.80 LAB L100.1300 12.0-15.0 g/dl High HGB 15.3 LAB L100.1400 37-47 % Normal HCT 45.2 LAB L100.1500 81-99 fL Normal MCV 94.2 LAB L100.1600 27.0-32.0 pg Normal MCH 31.9 LAB L100.1700 32-36 g/gl Normal MCHC 33.8 LAB L100.1810 11.6-14.6 % Normal RDW CV 12.5 LAB L100.1820 35.1-43.9 fl Normal RDW SD 42.9 LAB L100.1900 150-450 K/mm3 Normal PLT 184 LAB L100.2000 6.2-12.0 fl Normal MPV 11.6 LAB L100.2100 47-70 % Normal NEUT% 54.3 LAB L100.2200 19-41 % Normal LY% 38.9 LAB L100.2300 0-10 % Normal MONO% 5.2 LAB L100.2400 0-5 % Normal EO% 1.0 LAB L100.2500 0-1 % Normal BASO% 0.4 LAB L100.2550 0.0-0.9 % Normal IM GRAN % 0.200 Result Comment: IG% - Immature Granulocytes (promyelocytes, myelocytes and metamyelocytes) > 1% indicates that a LEFT SHIFT is Present. LAB L100.2620 2.0-7.7 X10 3/uL Normal Absolute Neut 5.8 LAB L100.2720 0.83-4.51 X10 3/ul Normal Absolute Lymph 4.18 Performed By: #### L100.0100 #### [facility] [address] [place], [place], [address] BASIC METABOLIC Collected: 12/03/2017 Status: F Source: [place] PROFILE (BMP) 3:40 PM REPOSITORY TYPE CODE TESTS RESULT OUT OF RANGE REFERENCE UNITS LAB L501.0100 70-110 mg/dL Normal GLU 83 LAB L501.1000 7-18 mg/dL Low BUN 6 LAB L501.1100 0.55-1.02 mg/dL Normal 0.67 CREAT,SERUM Result Comment: The validity of the calculated GFR AND GFRAA in patients over 70 years has not been determined. Clinical correlation is essential. LAB L501.1110 >60 mL/min Normal EST GFR 108 Result Comment: Non- GFR Calc LAB L501.1115 >60 mL/min Normal EST GFR - AA 130 Result Comment: GFR Calc LAB L501.1255 ml/min Normal Estimated CRCL 85.78 LAB L501.1300 10-20 RATIO Low BUN/CRE 8.9 LAB L501.2200 8.5-10 mg/dL Normal .1 CA 8.8 LAB L501.5300 136-14 mmol/L Normal 5 NA 140 LAB L501.5600 3.5-5. mmol/L Normal 1 K 3.7 LAB L501.5900 98-107 mmol/L High CL 109 LAB L501.6100 21.0-3 mmol/L Normal 2.0 CO2 27.0 LAB L501.6200 5-15 Low GAP 4 Performed By: #### L500.2500 #### [facility] [address] [place], [place], [address] ,SERUM,HCG QUALI. Collected: Status: F Source: [place] 12/03/2017 3:40 PM REPOSITORY TYPE CODE TESTS RESULT OUT OF REFERENCE UNITS RANGE LAB L700.7000 0-9 Nonpreg Negative Normal HCGSQUAL NEGATIVE LAB L700.6700 =>Qualitative mIU/mL Normal HCG Qual < 1 triggr Performed By: #### L700.6800 #### [facility] [address] [place], [address] TRANSVAGINAL Observed: 12/03/2017 Status: F Source: [place] NON- 3:36 PM REPOSITORY [facility] Imaging Services [address] [place] [address] Transvaginal Non- MR#: [id number] Acct: [id number] Name: ANNE KUHN Rep #: [id number] : 1985 F 32 From: Oniel Hansen MD PCP: Yassine Link MD Status: REG ER Study: Transvaginal Non- Date of Exam: 12/03/17 Exam# [id number] Ordering Dr: Lorie Madison MD STUDY: ULTRASOUND TRANSVAGINAL CLINICAL: Female, 32 years old. Left-sided pain. TECHNIQUE: Grayscale, color and Doppler images were obtained by transvaginal scanning. COMPARISON: None. FINDINGS: The patient is status post hysterectomy. There is normal blood flow demonstrated to both ovaries. Normal sonographic appearance of the right ovary, measuring 3.7 x 2.4 x 2.3 cm. There are multiple follicles without a dominant cyst. The left ovary measures 4.1 x 2.9 x 2.8 cm. There is a 2.4 x 2.1 cm complex lesion in the left ovary. This may represent a hemorrhagic cyst. Further evaluation with MRI or a follow-up ultrasound is recommended. There is a moderate amount of free fluid noted in the pelvis. US/Transvaginal Non- IMPRESSION: 2.4 x 2.1 cm complex lesion in the left ovary with a moderate amount of free fluid. This may represent a hemorrhagic cyst. Further evaluation with MRI or a follow-up ultrasound is recommended to document resolution. Electronically Signed: Oniel Hansen, at 17:15 EST Tel , Service support , CC: Lorie Madison MD; Yassine Link MD Budget Record Clerk: Signed ALLERGIES ALLERGIES DATE TYPE / NAME / CODE REACTION SEVERITY SOURCE CODE 07/22/2018 Drug Penicillins/F0010 Hives Unknown [place] Allergy/41 22678(RXNORM) [facility] [id number]([facility]) Repository 07/22/2018 Drug diazepam/[id number] Hives Unknown [place] Allergy/41 61(RXNORM) Community 4360158([facility]) Repository 07/22/2018 Drug morphine/[id number] Itching Unknown [place] Allergy/41 45(RXNORM) Community 0422996([facility]) Repository 07/22/2018 Drug benzonatate/F0060 Rash Unknown [place] Allergy/41 05562(RXNORM) Community 2914638([facility]) Repository 07/22/2018 Drug venom-honey Hives Unknown [place] Allergy/41 bee/[id number](RX Community 2350898([facility]) Repository 11/03/2017 DRUG BENZONATATE RASH Low [facility]GREDI/ [place] [facility] 11/03/2017 DRUG [facility]ATE [facility] [place] 0214884([facility] OMED CT) 08/03/2015 DRUG D[facility]ZEPAM HIVES [facility] [place] 0611510([facility] OMED CT) 11/10/2014 DRUG MORPHINE RASH [facility] [place] [facility]27076[facility] 06/23/2011 Environ/42 BEES ANAPHYLAXIS High [facility] 9050268([facility] CT) Repository 06/23/2011 Environ/42 BEES OTHER: SEE C [facility] 3358581(SN [place] OMED CT) Repository 02/14/2011 Drug PENICILLINS OTHER: SEE C [facility] Class/4195 [place] [address](SNOM Repository ED CT) ENCOUNTERS ENCOUNTERS ADMIT/DISCHARGE ACCOUNT ADMITTING ENCOUNTER LOCATION SOURCE NUMBER CLASS 10/23/2018/10/23/20 [id number] Ambulatory [address] Hospital ing:SDCRoom: Repository AC14 10/23/2018 [id number] [facility] 10/01/2018/10/01/20 [id number] Ambulatory [address] [place] Repository 10/01/2018/10/01/20 [id number] Ambulatory [address] [place] Repository 09/27/2018/10/03/20 [id number] Ambulatory [address] [place] Repository 09/27/2018/09/27/20 [id number] Ambulatory [address] [place] Repository 09/27/2018/09/27/20 [id number] Ambulatory [address] [place] Repository 09/12/2018/09/13/20 [id number] Ambulatory [address] [place] Repository 09/04/2018/09/05/20 [id number] Ambulatory [address] [place] Repository 07/25/2018/08/02/20 [id number] Ambulatory [address] [place] Repository 07/24/2018/07/24/20 [id number] Ambulatory BMSBuilding:B [place] [address] [place] [address] Repository 07/22/2018/07/24/20 [id number] Ambulatory [address] [place] Repository 07/22/2018/07/22/20 [id number] Emergency [address] ing:ED Repository 07/17/2018 [id number] Ambulatory [facility] ing:OPBI Repository 07/04/2018/07/09/20 [id number] Ambulatory [address] Repository 04/18/2018/10/29/20 [id number] Ambulatory [address] [place] Repository 04/15/2018/04/16/20 [id number] Ambulatory [address] [place] Repository 03/18/2018 [id number] Ambulatory [facility] Hospital ing:BIRAD Repository 03/18/2018 [id number] Ambulatory BMSBuilding:Brijesh Kowalski MS.CF.[facility] Repository 03/05/2018/03/05/20 [id number] Ambulatory BMSBuilding:B [place] 18 MS.[facility] Repository 02/20/2018/02/21/20 [id number] Ambulatory [address] Repository 02/20/2018/02/21/20 [id number] Ambulatory [address] Repository 02/11/2018/02/12/20 [id number] Ambulatory BMSBuilding:B [place] 18 MS.[facility] Repository 02/05/2018 [id number] [facility]BI Repository 02/05/2018/02/06/20 [id number] Ambulatory [address] Repository 02/05/2018 [id number] Ambulatory [facility] Repository 02/05/2018 [id number] Ambulatory [facility] Repository 01/30/2018 [id number] [facility] Repository 01/30/2018 [id number] [facility] ing:BI Repository 01/26/2018/01/27/20 [id number] Emergency [address] [facility]ED Repository 01/21/2018/01/25/20 [id number] Ambulatory [address] Repository 01/17/2018 [id number] [facility] ing[facility] Repository 01/16/2018/01/16/20 [id number] Ambulatory [address] Repository 12/17/2017/12/17/19 [id number] Ambulatory [address] Repository 12/12/2017/12/13/19 [id number] Ambulatory [address] Repository 12/03/2017/12/03/19 [id number] Emergency [address] Hospital ing:ED Repository PAYERS PAYERS ENCOUNTER GUARANTOR PAYER SUBSCRIBER SOURCE 10/23/2018 ANNE Lewis Primary Insurance:[facility]NE [id number] COMMUNITY PLANPolicy BARTHOLICDOB: Community CASSY CAMERON Number: [id number] [id number] Repository [address]Cmc: (330) Date:1384-70-19QZ [phone] () [address] [place] [address] 84225SA: 10/23/2018 Secondary NOT GIVENUNK [place] Insurance:SELF PAY [facility] Number: Effective Repository Date:2018-09-30 10/23/2018 ANNE L Primary Insurance:[facility] ANNE L [place] [id number] COMMUNITY PLANPolicy BARTHOLICDOB: Community CASSY CAMERON Number: [id number] [id number] Repository [address]Kjg: (330) Date:7151-69-57XY [phone] () [address] [place] [address] 87468AT: 10/23/2018 Secondary NOT GIVENUNK [place] Insurance:SELF PAY [facility] Number: Effective Repository Date:2018-10-23 07/24/2018 ANNE L Primary Insurance:[facility] ANNE L [place] [id number] [facility] PLANPolicy BARTHOLICDOB: Mora CAMERON Number: [id number] [id number] Repository [address]Aqy: (330) Date:3915-45-67UA [phone] () [address] [place] [address] 87745PK: 07/24/2018 Secondary NOT GIVENUNK [place] Insurance:SELF PAY [facility] Number: Effective Repository Date:2018-07-18 07/22/2018 ANNE L Primary Insurance:[facility] ANNE L [place] [id number] COMMUNITY PLANPolic BARTHOLICDOB: Mora CAMERON Number: [id number] [id number] Repository [address]Shn: (330) Date:7071-30-89EW [phone] () [address] [place] [address] 74354AC: 07/22/2018 Secondary NOT GIVENUNK [place] [facility] Number: Effective Repository Date:2018-07-22 07/17/2018 ANNE L Primary Insurance:[facility] ANNE L [place] [id number] COMMUNITY PLANPolicy BARTHOLICDOB: Community CASSY DRLOT Number: [id number] [id number] Repository [address]Pkr: ([phone]) Date:7475-15-67IN [phone] () [address] [place], [place] [address]WP: 07/17/2018 Secondary NOT GIVENUNK [place] Insurance:SELF PAY [facility] Number: Effective Repository Date:2018-07-16 03/18/2018 ANNE L Primary Insurance:[facility] ANNE L [place] [id number] COMMUNITY PLANPolicy BARTHOLICDOB: Community [facility] Number: [id number] [id number] Repository [address]Eoz: (330) Date:0443-33-93UK [phone] () [address] [place] [address] 80076AM: 03/18/2018 Secondary NOT GIVENUNK [place] Insurance:SELF PAY [facility] Number: Effective Repository Date:2018-03-05 03/18/2018 ANNE L Primary Insurance:[facility] ANNE L [place] [id number] COMMUNITY PLANPolicy BARTHOLICDOB: Community CASSY DRYUMIKO Number: [id number] [id number] Repository 16[address]Kyh: (330) Date:3561-43-52GQ [phone] () [address] [place] [address] 60170KD: 03/18/2018 Secondary NOT GIVENUNK [place] Insurance:SELF PAY [facility] Number: Effective Repository Date:2018-03-18 03/05/2018 ANNE L Primary Insurance:[facility] ANNE L [place] [id number] COMMUNITY PLANPolicy BARTHOLICDOB: Community CASSY DRLOT Number: [id number] [id number] Repository [address]Lby: (330) Date:5358-24-94CR [phone] () [address] [place] [address] 47287CS: 03/05/2018 Secondary NOT GIVENUNK [place] Insurance:SELF PAY [facility] Number: Effective Repository Date:2018-03-05 02/11/2018 ANNE L Primary Insurance:[facility] ANNE L [place] [id number] COMMUNITY PLANPolicy BARTHOLICDOB: Community CASSY DRLOT Number: [id number] [id number] Repository [address]Iol: (330) Date:8016-49-50PR [phone] () [address] [place] [address] 94944QI: 02/11/2018 Secondary NOT GIVENUNK [place] Insurance:SELF PAY [facility] Number: Effective Repository Date:2018-02-06 02/05/2018 ANNE L Primary Insurance:[facility] ANNE L [place] [id number] COMMUNITY PLANPolicy BARTHOLICDOB: Community CASSY DRLOT Number: [id number] [id number] Repository [address]25[address]Rxl: (330) Date:2458-76-92KC [phone] () [address] [place] [address] 78235SQ: 02/05/2018 Secondary NOT GIVENUNK [place] Insurance:SELF PAY [facility] Number: Effective Repository Date:2018-02-04 01/30/2018 ANNE L Primary Insurance:[facility] ANNE L [place] [id number] COMMUNITY PLANPolicy BARTHOLICDOB: Community CASSY DRLOT Number: [id number] [id number] Repository [address]Ola: (330) Date:6315-93-50JI [phone] () [address] [place] [address] 13361KV: 01/30/2018 Secondary NOT GIVENUNK [place] Insurance:SELF PAY [facility] Number: Effective Repository Date:2018-01-29 01/30/2018 ANNE L Primary Insurance:[employer] ANNE L [place] [id number] COMMUNITY PLANPolicy BARTHOLICDOB: Community CASSY DRYUMIKO Number: [id number] [id number] Repository 782[address]Kxc: (330) Date:7127-92-44RX [phone] () [address] [place] [address] 94980IY: 01/30/2018 Secondary NOT GIVENUNK [place] Insurance:SELF PAY [facility] Number: Effective Repository Date:2018-01-17 01/26/2018 ANNE L Primary Insurance:[facility] ANNE L [place] [id number] COMMUNITY PLANPolicy BARTHOLICDOB: Community CASSY DRYUMIKO Number: [id number] [id number] Repository 344[address]Sug: (330) Date:5419-02-76GA [phone] () [address] [place] [address] 64251UX: 01/26/2018 Secondary NOT GIVENUNK [place] Insurance:SELF PAY [facility] Number: Effective Repository Date:2018-01-26 01/17/2018 ANNE L Primary Insurance:[facility] ANNE L [place] [id number] COMMUNITY PLANPolicy BARTHOLICDOB: Community CSASY DRYUMIKO Number: [id number] [id number] Repository [address]Hkx: (330) Date:5719-98-86CW [phone] () [address] [place] [address] 59647VB: 01/17/2018 Secondary NOT GIVENUNK [place] Insurance:SELF PAY [facility] Number: Effective Repository Date:2018-01-17 12/03/2017 ANNE L Primary Insurance:[facility] ANNE L [place] [id number] COMMUNITY PLANPolicy BARTHOLICDOB: Community CASSY DRYUMIKO Number: [id number] [id number] Repository [address]Xfg: (330) Date:6976-48-16LX [phone] () [address] [place] [address] 32766GL: 12/03/2017 Secondary NOT GIVENUNK [place] Insurance:SELF PAY [facility] Number: Effective Repository Date:2017-12-03
== END 2018-10-23 14:59 | disposition home or self-care (01) ==
LOC: SDC 09:11 → AC 09:11
PROVIDERS: Family Provider Internal Medicine; PCP Internal Medicine; Referring Provider Obstetrics & Gynecology; Visit Provider Obstetrics & Gynecology
PROC: (CPT 58720; principal; 2018-10-23 10:50)
DX: N83.12 Corpus luteum cyst of left ovary (principal); R10.2 Pelvic and perineal pain; G89.29 Other chronic pain; N73.6 Female pelvic peritoneal adhesions (postinfective); J45.909 Unspecified asthma, uncomplicated; K21.9 Gastro-esophageal reflux disease without esophagitis; F32.9 Major depressive disorder, single episode, unspecified; F41.9 Anxiety disorder, unspecified; F17.210 Nicotine dependence, cigarettes, uncomplicated
CPT/HCPCS: 58661; 36415; 85027; 85610; 85730; 86850; 86900; 88305; 93005; J7120; J2405

== ENCOUNTER 2018-11-18 09:04 | Emergency (ER) | payer MEDICAID, SELFPAY ==
[2018-11-18 09:05] VITALS: BP 104/69; PULSE 87; RESP 20; TEMP 36.6; O2SAT 100; BMI 29.2
[2018-11-18 09:18] VITALS: PULSE 83; RESP 16; TEMP 36.6; O2SAT 98
--- NOTE | 2018-11-18 09:47 | ED.VISSUMM ---
- ER Visit Summary Date of Service: 11/18/18 Chief Complaint: Umbilicus pain History of Present Illness: The patient is a 33 F presenting for pain in her umbilicus. Patient had a laparoscopic oophorectomy performed on 1127. Patient states that over the last 4 days she has had a burning sensation in her umbilicus. She denies any skin changes or drainage. Patient states that she is out of her oxycodone 5 mg, and cannot get in touch with her surgeon Dr. Cunningham. She denies any presence of fevers rash or discharge from the area. Physical Examination: Vital signs within normal limits. Abdominal exam shows tenderness in the epigastrium which the patient states is chronic. Examination of the patient's umbilicus shows completely normal skin without any evidence of drainage or erythema. No reproducible tenderness. Test Results: None indicated Emergency Department Course and Treatment: Patient presented secondary to a burning sensation from her umbilicus. This seems more skin related, but was not associated with any infection as far as I can tell. Patient was given a oxycodone in the emergency department. She also will be given topical lidocaine. I reviewed the patient's prescription reporting record, she has prescriptions from 13 providers. I will not be providing any home-going narcotic prescriptions. She is instructed that she needs to follow-up with her surgeon. Disposition: Discharge Impression: 1. Umbilicus pain This note was generated with [employer] dictation software. It may contain incorrect words, spelling, and punctuation that were not noted in review of the chart prior to signing ED Disposition - Plan for ED Patient: Disposition: Home or Assisted Living Chief Complaint: Wound Check Diagnosis: Umbilical pain Instructions: ED Wound Check Post Op No Infec Prescriptions: Naproxen [Naprosyn] 500 mg PO BID PRN #20 tab Referrals: Logan Cunningham MD [STAFF PHYSICIAN] - As soon as possible
--- NOTE | 2018-11-18 09:51 | ED.DCSUM_ITS ---
- ER Visit Summary Date of Service: 11/18/18 Chief Complaint: Umbilicus pain History of Present Illness: The patient is a 33 F presenting for pain in her umbilicus. Patient had a laparoscopic oophorectomy performed on 1127. Patient states that over the last 4 days she has had a burning sensation in her um bilicus. She denies any skin changes or drainage. Patient states that she is out of her oxycodone 5 mg, and cannot get in touch with her surgeon Dr. Cunningham. She denies any presence of fevers rash or discharge from the area. Physical Examination: Vital signs within normal limits. Abdominal exam shows tenderness in the epigastrium which the patient states is chronic. Examination of the patient's umbilicus shows completely normal skin without any evidence of drainage or erythema. No reproducible tenderness. Test Results: None indicated Emergency Department Course and Treatment: Patient presented secondary to a burning sensation from her umbilicus. This seems more skin related, but was not associated with any infection as far as I can tell. Patient was given a oxycodone in the emergency department. She also will be given topical lidocaine. I reviewed the patient's prescription reporting record, she has prescriptions from 13 providers. I will not be providing any home-going narcotic prescriptions. She is instructed that she needs to follow-up with her surgeon. Disposition: Discharge Impression: 1. Umbilicus pain This note was generated with [employer] dictation software. It may contain incorrect words, spelling, and punctuation that were not noted in review of the chart prior to signing ED Disposition - Plan for ED Patient: Disposition: Home or Assisted Living Chief Complaint: Wound Check Diagnosis: Umbilical pain Instructions: ED Wound Check Post Op No Infec Prescriptions: Naproxen [Naprosyn] 500 mg PO BID PRN #20 tab Referrals: Logan Cunningham MD [STAFF PHYSICIAN] - As soon as possible
[2018-11-18] MEDS: Lidocaine 4% 50 ML Bottle TOPICAL (11:00)
[2018-11-18] MEDS: oxyCODONE 5 MG Tablet PO (11:00)
[2018-11-18 11:03] VITALS: BP 118/81; TEMP 36.7
== END 2018-11-18 11:07 | disposition home or self-care (01) ==
PROVIDERS: Emergency Provider Emergency Medicine; Family Provider Internal Medicine; PCP Internal Medicine
DX: R10.33 Periumbilical pain (principal); J45.909 Unspecified asthma, uncomplicated
CPT/HCPCS: 99283

== ENCOUNTER 2018-12-18 17:01 | Emergency (ER) | payer MEDICAID, SELFPAY ==
[2018-12-18 17:03] VITALS: BP 112/65; PULSE 87; RESP 14; TEMP 36.8; O2SAT 97; BMI 28.7
[2018-12-18] MEDS: Ondansetron ODT 4 MG Tablet 8 MG PO (17:34)
[2018-12-18] MEDS: Dicyclomine 10 MG Capsule 20 MG PO (17:38)
--- NOTE | 2018-12-18 18:17 | ED.DCSUM_ITS ---
- ER Visit Summary Date of Service: 12/18/18 Chief Complaint: Nausea vomiting diarrhea History of Present Illness: The patient is a 33 F presenting for evaluation secondary nausea vomiting diarrhea. Patient reports that since yesterday she has had an onset of the above symptoms. Associated with a diffuse crampy abdominal pain with no exacerbating relieving factors. She has had up to 6 episodes of nonbloody nonbilious emesis up to 3 episodes of nonmucous E nonbloody diarrhea. She denies any fevers. She denies any recent antibiotic exposure admissions to the hospital or abnormal travel. Review of systems otherwise negative. Physical Examination: Vital signs are within normal limits, patient is afebrile. General: Patient is well-nourished well-developed and in no acute distress. Head: Normocephalic, atraumatic Eyes: Pupils equal round and reactive bilaterally, extra occular motion intact bialterally ENT: Moist mucous membranes Neck: Supple, no lymphadenopathy, no JVD, no meningismus CVS: Heart regular rate and rhythm, no murmurs, rubs or gallops, radial pulses 2+ bilaterally Resp: Respirations nondistressed, lung sounds clear bilaterally Abdomen: Soft, diffuse nonlocalizing mild tenderness to palpation nondistended, no palpable masses, normal bowel sounds Back: Nontender Extremities: Nontender, atraumatic, active full range of motion, no peripheral edema Skin: warm, no rashes, no petechia Neuro: Alert and oriented x 4, CN 2-12 intact, no lateralizing neurological defecits Psyc: Normal affect Test Results: None indicated Emergency Department Course and Treatment: Patient presented with a short course of nausea and vomiting. Abdominal exam is benign she has stable vitals she does not appear clinically dehydrated do not believe the laboratory studies or IV fluids are indicated. Patient was given oral Zofran and Bentyl and passed a p.o. challenge on repeat evaluation. She continues to have benign abdomen. She will be discharged with a course of the same and instructions for a clear liquid diet and follow-up with primary care. Disposition: Discharge Impression: 1. Gastroenteritis This note was generated with [employer] dictation software. It may contain incorrect words, spelling, and punctuation that were not noted in review of the chart prior to signing ED Disposition - Plan for ED Patient: Disposition: Home or Assisted Living Chief Complaint: Nausea/Vomiting/Diarrhea Diagnosis: Gastroenteritis Instructions: ED Gastroenteritis Viral Prescriptions: Ondansetron [Zofran Odt] 4 mg PO Q8H PRN PRN #10 tab PRN Reason: Nausea Dicyclomine HCl [Bentyl] 20 mg PO TIDAC #20 cap Referrals: Yassine Link MD [Primary Care Provider] - 3-5 Days if not improving
[2018-12-18 18:30] VITALS: PULSE 82; RESP 16; O2SAT 99
== END 2018-12-18 18:31 | disposition home or self-care (01) ==
PROVIDERS: Emergency Provider Emergency Medicine; Family Provider Internal Medicine; PCP Internal Medicine
DX: K52.9 Noninfective gastroenteritis and colitis, unspecified (principal); J45.909 Unspecified asthma, uncomplicated; G89.29 Other chronic pain; Z72.0 Tobacco use
CPT/HCPCS: 96372; 99283

== ENCOUNTER 2019-05-10 11:07 | Emergency (ER) | payer MEDICAID, SELFPAY ==
[2019-05-10 11:08] VITALS: BP 123/58; PULSE 81; RESP 18; TEMP 36.3; O2SAT 99; BMI 29.5
--- NOTE | 2019-05-10 11:32 | ED.VIS.GEN ---
History of Present Illness Chief Complaint: Abd Pain Informant: Patient Onset: Weeks - one week Context: Gradual Onset Timing: Intermittent Quality: Cramping and burning Location: Diffuse throughout the abdomen Current Severity: Severe Maximum Severity: Severe Worsened by: food Relieved by: nothing Associated Symptoms: Nausea and constipation Narrative: 33-year-old female with a past medical history as IBS and peptic ulcer disease presents emergency department with approximately 1 week of diffuse cramping and burning abdominal pain. Patient for the past 2 months has been having worsening symptoms of her GERD despite being on Protonix now for the past 5 years. She was diagnosed with peptic ulcer 2 years ago and has been on Protonix since. She is not vomiting. She went to see her SUPERVIS[employer] because a lot of the pain was in the right side who did an ultrasound as she only has one ovary left and it is on the right side and she has had cyst there in the past. [employer] told her that there was no abnormality with her ovary but said that her bowel was inflamed and told her to follow-up with gastroenterology when she has an appointment with next month. She has not had any fevers or symptoms of bleeding. She has been taking MiraLAX for constipation. She is not having any urinary symptoms. She is status post hysterectomy. She has been compliant with her medications. She denies any other review of systems. Prior similar symptoms: Yes Recent Illness/Hospitalization: No Past Medical History - Allergies and Home Meds Allergies/Adverse Reactions: Allergies benzonatate [From Tessalon Perles] Allergy (Verified 05/10/19 11:10) Rash diazepam [From Valium] Allergy (Verified 05/10/19 11:10) Hives morphine Allergy (Verified 05/10/19 11:10) Itching Penicillins Allergy (Verified 05/10/19 11:10) Hives venom-honey bee [bee venom (honey bee)] Allergy (Verified 05/10/19 11:10) Hives Primary Care Physician: Jamarcus Rincon MD [STAFF PHYSICIAN] - 3-5 Days Care Physician,No Primary [Primary Care Provider] - Prior records reviewed: Yes Past Medical History: - - IBS, peptic ulcer disease Surgical History: hysterectomy, - - Left ovary removed Smoking Status: Heavy Smoker (>10/day) - Family History Maternal Family History: Family History (Last Reviewed 07/24/18 @ 14:17 by Karuna Buckner) Father Heart disease Hypertension Myocardial infarction Mother Cancer Family History: Reports: - - Ovarian cancer Review of Systems General: Denies: Chills, Fever Cardiovascular: Denies: Chest pain Respiratory: Denies: Dyspnea Gastrointestinal: Reports: Abdominal pain, Nausea, Constipation. Denies: Vomiting, Diarrhea, Melena, Hematochezia Genitourinary: Denies: Dysuria, Hematuria, Frequency Physical Exam Vital Signs/Narrative: Vital Signs Temp Pulse Resp BP Pulse Ox 05/10/19 11:08 97.3 F L 81 18 123/58 H 99 General: Well nourished, Well developed, No Acute Distress Head: Normocephalic, Atraumatic Eyes: Perrl, EOMI ENT: Moist mucous membranes Neck: Supple, Nontender Cardiovascular: Regular rate, Regular rhythm, No murmurs Respiratory: No distress, CTA bilaterally, Chest nontender Abdomen: Soft, Nondistended, Normal bowel sounds, No masses, Tender - diffusely tender to palpation without focal tenderness. No peritoneal signs, rebound, or guarding. Abdomen is nondistended.. Negative for: Guarding, Rebound tenderness Back: Nontender, Normal Inspection. Negative for: CVA tenderness Extremities: Nontender, No edema Skin: Normal color, No rash Neurological: Alert, Oriented x3 Psychological: Normal affect Diagnostic/Tx/Re-eval - Medical Decision Making Patient was given GI cocktail, IV fluids and Zofran. Patient's laboratory work-up was unremarkable. CT scan of the abdomen and pelvis with p.o. and IV contrast showed no acute findings. Patient did have relief with GI cocktail. Her repeat abdominal exam was soft and nontender. She is able to tolerate by mouth. At this time feel symptoms are likely secondary to gastritis, she will continue her Protonix and we will add Carafate. She has an appointment upcoming with her services program manager. We discussed return precautions. She will follow-up as directed. Discharged ED Disposition - Plan for ED Patient: Disposition: Home or Assisted Living Diagnosis: Gastritis Instructions: ED Abdominal Pain Unkn Cause, ED GERD Prescriptions: Sucralfate [Carafate] 1 gm PO 4X/DAY #30 [facility] [place]errals: Jamarcus Rincon MD [STAFF PHYSICIAN] - 3-5 Days Care Physician,No Primary [Primary Care Provider] - Additional Instructions: See your Rejector as scheduled
--- NOTE | 2019-05-10 11:46 | CT_ITS ---
STUDY: CT ABDOMEN AND PELVIS WITH CONTRAST REASON FOR EXAM: Female, 33 years old. Severe abdominal pain for the past few weeks RADIATION DOSAGE (If Supplied By Facility): CTDIvol = ( 8.34 ) mGy, DLP = ( 605.67 ) mGycm TECHNIQUE: Transaxial images were obtained from the dome of the diaphragm to the symphysis pubis with oral contrast. 100 IV/Oral Isovue 300 was administered. Sagittal and coronal images were reconstructed. Individualized dose optimization techniques were used for this CT. COMPARISON: 06/22/2016. FINDINGS: The visualized lung bases are unremarkable. The visualized portions of the heart are within normal limits. Normal liver. Normal gallbladder and extrahepatic biliary system. Normal spleen. Normal pancreas. Normal bilateral adrenal glands. Normal right kidney. Subcentimeter cyst of the left kidney is stable. Normal visualized stomach. Normal small intestine. Normal colon. The appendix is visualized and appears normal. Normal abdominal aorta. Normal inferior vena cava. Normal retroperitoneum. Normal urinary bladder. There is absence of the uterus consistent with a prior hysterectomy. There is a 1.4 cm follicle of the right ovary. No pelvic free fluid. Normal abdominal wall. Normal osseous structures. CT/Abdomen/Pelvis WITH Contrast IMPRESSION: No acute inflammatory process or bowel obstruction. Electronically Signed: Abel Duffy MD at 14:02 EDT , Service support ,
[2019-05-10 11:59] LABS: Absolute Lymphocyte Count 3.95 X10^3/ul (0.83-4.51); Absolute Neutrophil Count 3.9 X10^3/uL (2.0-7.7); Basophil# 0.04 X10^3/uL; Basophil% 0.5 % (0-1); Eosinophil# 0.24 X10^3/uL; Eosinophils% 2.8 % (0-5); Hematocrit 44.3 % (37-47); Hemoglobin 15.2 g/dl (12.0-15.0); Lymphocyte # 3.95 X10^3/ul (4.0); Mean Corp Hgb Conc 34.3 g/gl (32-36); Mean Corpuscular Hgb 32.3 pg (27.0-32.0); Mean Corpuscular Volume 94.3 fL (81-99); Mean Platelet Vol. 11.4 fl (6.2-12.0); Monocyte# 0.41 X10^3/uL; Monocyte% 4.8 % (0-10); Neutrophil # 3.94 X10^3/uL (2.7-7.7); Neutrophil % 45.8 % (47-70); POSITIVE COUNT NO; POSITIVE DIFFERENTIAL NO; POSITIVE MORPHOLOGY NO; Platelet Count 179 K/mm3 (150-450); RBC Distribution Width CV 12.5 % (11.6-14.6); RBC Distribution Width SD 43.1 fl (35.1-43.9); White Blood Count 8.6 K/mm3 (4.4-11.0)
[2019-05-10 12:15] LABS: ALB/GLOB Ratio 1.1 RATIO (0.9-2.4); AST(SGOT) 15 U/L (15-37); Alanine Aminotransfer ALT/SGPT 21 U/L (13-56); Albumin, Serum 3.5 g/dL (3.2-5.0); Alkaline Phosphatase 70 U/L (45-117); Anion Gap 0 (5-15); BUN 8 mg/dL (7-18); BUN/Creat Ratio 10.3 RATIO (10-20); Calcium,Total 8.8 mg/dL (8.5-10.1); Chloride 109 mmol/L (98-107); Creatinine, Serum 0.78 mg/dL (0.55-1.02); EST Glomerular Filtration Rate 90 mL/min (>60); Est Glom Filt Rate - Afr Amer 109 mL/min (>60); Globulin 3.3 g/dL (2.2-4.2); Glucose 94 mg/dL (74-106); Lipase 75 U/L (73-393); Potassium 3.8 mmol/L (3.5-5.1); Protein, Total 6.8 g/dL (6.4-8.2); Sodium Level 138 mmol/L (136-145)
[2019-05-10] MEDS: Ondansetron 4 MG/2 ML Vial IV (12:21)
[2019-05-10] MEDS: 0.9% Normal Saline 1,000 ML 1000 ML IV (12:21)
[2019-05-10] MEDS: Ketorolac 30 MG/ML Syringe IV (12:22)
[2019-05-10 12:31] LABS: Bacteria 0 SEEN /hpf (None Seen); Mucous, Urine 0 SEEN /hpf (<or=2+); Red Blood Cells-Urine 0 SEEN /hpf (0-5); White Blood Cells 0 SEEN /hpf (0-5)
[2019-05-10 12:34] LABS: Color, Urine Yellow (Yellow); Glucose, Dipstick Normal (Normal); Ketone-Dipstick Negative (Negative); Leukocyte Esterase-Dipstick Negative /ul (Negative); Nitrite-Dipstick Negative (Negative); Occult Blood-Urine Negative /ul (Negative); Protein-Dipstick Negative (Negative); Urine Bilirubin Dipstick Negative (Negative); Urine Clarity Clear (Clear); Urine Urobilinogen Normal (Normal)
[2019-05-10 12:48] LABS: Squamous Epithelial Cells - UA 0-5 SEEN /hpf (5-10)
[2019-05-10] MEDS: Mag Hydrox/Al Hydrox/Simeth 30 ML UDC PO (13:57)
[2019-05-10 13:59] VITALS: PULSE 52; RESP 14; O2SAT 100
--- NOTE | 2019-05-10 15:28 | ED.DEP ---
ED Disposition - Plan for ED Patient: Instructions: ED Abdominal Pain Unkn Cause, ED GERD Prescriptions: Sucralfate [Carafate] 1 gm PO 4X/DAY #30 [facility] Referrals: Care Physician,No Primary [Primary Care Provider] - Jamarcus Rincon MD [STAFF PHYSICIAN] - 3-5 Days Additional Instructions: See your Application Infrastructure Engineer as scheduled
[2019-05-10 15:33] VITALS: BP 115/69; PULSE 75; PULSE 77; RESP 15; RESP 16; O2SAT 96; O2SAT 98
== END 2019-05-10 15:45 | disposition home or self-care (01) ==
PROVIDERS: Emergency Provider Physician Assistant Medical
DX: K29.70 Gastritis, unspecified, without bleeding (principal); K21.9 Gastro-esophageal reflux disease without esophagitis; K59.00 Constipation, unspecified; J45.909 Unspecified asthma, uncomplicated; K58.9 Irritable bowel syndrome, unspecified; F17.210 Nicotine dependence, cigarettes, uncomplicated; Z90.710 Acquired absence of both cervix and uterus; Z87.11 Personal history of peptic ulcer disease; Z88.0 Allergy status to penicillin
CPT/HCPCS: 74177; 80053; 81001; 83690; 85025; 96361; 96374; 96375; 99285; J7030; Q9967; A4216; J2405

== ENCOUNTER 2019-05-26 18:22 | Emergency (ER) | payer MEDICAID, SELFPAY ==
[2019-05-26 18:23] VITALS: BP 116/70; PULSE 85; RESP 16; TEMP 36.8; O2SAT 99; BMI 29.7
--- NOTE | 2019-05-26 19:36 | ED.DCSUM_ITS ---
- ER Visit Summary Date of Service: 05/26/19 Chief Complaint: Sunburn History of Present Illness: The patient is a 33 F who presents with sunburn that occurred yesterday. Patient states the pain is worse over her lower extremities. Patient states she was also burned over her chest and abdomen. Patient describes the pain as sharp and burning. Patient states pain is worse with ambulation. Patient admits to subjective chills. Patient also admits to some nausea but denies any vomiting. Patient denies any chest pain or shortness of breath. Patient denies any other symptoms. Physical Examination: Vital signs are stable. Patient is afebrile. Patient is in no acute distress. Skin is warm and dry. There is first-degree cruz over the anterior aspects of the lower extremities bilaterally. There are also first-degree cruz over the chest and upper extremities. There are no vesicles noted. Sensation was intact to light touch in all areas of burn. Pedal pulses are equal bilaterally. There are no sensory deficits. Emergency Department Course and Treatment: Patient was given a dose of ibuprofen here. Patient is given a prescription for ibuprofen. Patient was instructed to continue using aloe and lidocaine gel. Patient was instructed to follow-up with her primary care physician in 5 to 7 days. Patient understood and was agreeable with the plan. All questions were answered Disposition: Discharge home Impression: First-degree sunburn This note was generated with [employer] dictation software. It may contain incorrect words, spelling, and punctuation that were not noted in review of the chart prior to signing ED Disposition - Plan for ED Patient: Disposition: Home or Assisted Living Diagnosis: First degree sunburn Instructions: Sunburn Prescriptions: Ibuprofen 800 mg PO TID PRN PRN #20 tab PRN Reason: Pain Prescription Printed Referrals: Care Physician,No Primary [Primary Care Provider] -
[2019-05-26 20:00] VITALS: BP 112/71; PULSE 80; RESP 16; O2SAT 98
[2019-05-26] MEDS: Ibuprofen 400 MG Tablet 800 MG PO (20:07)
== END 2019-05-26 20:13 | disposition home or self-care (01) ==
LOC: ED 20:03
PROVIDERS: Emergency Provider Emergency Medicine
DX: L55.0 Sunburn of first degree (principal); J45.909 Unspecified asthma, uncomplicated; F17.210 Nicotine dependence, cigarettes, uncomplicated; F33.9 Major depressive disorder, recurrent, unspecified
CPT/HCPCS: 99282

== ENCOUNTER → 2019-09-05 13:41 | Outpatient (CLI) | payer MEDICAID, SELFPAY ==
[2019-09-02 14:58] VITALS: BMI 29.7
--- NOTE | 2019-09-05 14:04 | BI_ITS ---
MAMMOGRAPHY - BILATERAL DIAGNOSTIC REASON FOR EXAM: Female, 33 years old. Painful breast with a lymph node in the superior lateral aspect of the left breast PERTINENT HISTORY: Non-contributory. TECHNIQUE: Digital examination. Mediolateral oblique (MLO) and craniocaudad (CC) views of both breasts were obtained. CAD: COMPARISON: Previously obtained on 07/17/2018 FINDINGS: Breast Composition: Dense breast parenchyma is noted bilaterally There are no dominant masses or suspicious calcifications. No other significant abnormalities are identified. A marker was placed over the density in the superior lateral aspect of the left because describes focal fibrocystic change and because the patient feels a lump in this location a targeted left breast ultrasound the superior lateral aspect left breast is recommended for further evaluation BI/DIAG MAMM W/CAD, BILAT IMPRESSION: Bilateral fibrocystic changes are identified. Although no obvious mass or lesion is seen. Because the patient palpates a density in the superior lateral left breast, a targeted ultrasound of the superior lateral left breast is recommended for further evaluation. ASSESSMENT CATEGORY: FINAL ASSESSMENT: BI-RAD CATEGORY 0 INCOMPLETE: (NEEDS ADDITIONAL IMAGINING EVALUATION) FOLLOW UP RECOMMENDATION: Ultrasound Recommended. (I) Approximately 10% of breast cancers are not detected by mammography. A normal mammogram should not delay biopsy of a clinically suspicious abnormality. Electronically Signed: Alberto Kosta, at 17:35 EDT Tel , Service support ,
--- NOTE | 2019-09-05 15:08 | US_ITS ---
STUDY: ULTRASOUND BREAST - LEFT REASON FOR EXAM: Female, 33 years old. Abnormal screening mammogram. TECHNIQUE: Axial and longitudinal images of the LEFT breast were performed with a high resolution ultrasound transducer. COMPARISON: Comparison is made with prior mammogram dated September 05, 2019 and prior ultrasound of the left breast dated July 17, 2018. FINDINGS: LEFT Breast: There is a 5 mm x 4 mm x 3 mm hypoechoic well-defined nodule at the 1:00 position of the breast as 6 times from nipple. This appears to be a benign lymph node. A similar-appearing well-defined hypodensity measuring 7 mm x 5 mm x 2 mm cyst seen at the 1:00 position breast 6 cm from the nipple. This most likely represents a benign lymph node. US/Breast Limited Unilateral IMPRESSION: Findings suggestive of 2 small benign-appearing lymph nodes. ASSESSMENT CATEGORY: BIRADS Category 2: Benign. A letter regarding these results will be sent to the patient by the facility within 30 days. Electronically Signed: Willy Hilliard, at 10:47 EDT , Service support ,
== END ==
PROVIDERS: Referring Provider Nurse Practitioner Women's Health; Visit Provider Nurse Practitioner Women's Health
DX: R92.8 Other abnormal and inconclusive findings on diagnostic imaging of breast (principal)
CPT/HCPCS: 76642; 77062; 77066; G0279

== ENCOUNTER 2020-02-27 00:44 | Emergency (ER) | payer MEDICAID, SELFPAY ==
[2019-09-17 14:03] VITALS: BMI 29.7
[2020-02-27 00:47] VITALS: BP 115/72; PULSE 81; RESP 18; TEMP 36.8; O2SAT 100; BMI 32.4
--- NOTE | 2020-02-27 01:00 | RAD_ITS ---
HISTORY: PT WORKS AT [employer] AND C/O SORE THROAT, DRY COUGH,FEVER. POSSIBLE COVID EXPOSURE EXAM: XR Chest 1 View: COMPARISON: November 05, 2017 FINDINGS: # of images incl. paperwork: 1 Lungs are clear. Heart is not enlarged. No acute osseous pathology perceived. Pulmonary vascularity is distinct. No effusions. RAD/Chest 1 View (Portable) IMPRESSION: Normal. at 0142 Reported and signed by: Tyler Alex MD Electronically Signed: Tyler Alex MD at 1:41 EDT Tel , Service support ,
--- NOTE | 2020-02-27 01:02 | ED.DCSUM_ITS ---
History of Present Illness Chief Complaint: Fever Informant: Patient Onset: Days Context: Gradual Onset Timing: Intermittent Current Severity: Moderate Maximum Severity: Moderate Narrative: The patient is a 34-year-old female with medical history significant for asthma the presents to the emergency department upper respiratory symptoms. Patient states for the past 2 days, she is had low-grade fevers, scant cough, and mild sore throat. 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 She states that she has no known documented exposure to anyone that has been positive for Covid 19. She states that a another coworker had to be put on a 14-day quarantine. She denies any other systemic symptoms. She is had no nausea, vomiting, or diarrhea. She has no history of immunosuppression. Prior similar symptoms: No Recent Illness/Hospitalization: No Past Medical History - Allergies and Home Meds Allergies/Adverse Reactions: Allergies benzonatate [From Tessalon Perles] Allergy (Verified 02/27/20 00:50) Rash diazepam [From Valium] Allergy (Verified 02/27/20 00:50) Hives morphine Allergy (Verified 02/27/20 00:50) Itching Penicillins Allergy (Verified 02/27/20 00:50) Hives venom-honey bee [bee venom (honey bee)] Allergy (Verified 02/27/20 00:50) Hives Primary Care Physician: Care Physician,No Primary [Primary Care Provider] - Prior records reviewed: Yes Past Medical History: - - Asthma Surgical History: hysterectomy, - - Left ovary removed Smoking Status: Current every day smoker - Family History Maternal Family History: Family History (Last Reviewed 09/17/19 @ 16:[address] Bartolo Gonzalez MD) Father Heart disease Hypertension Myocardial infarction Mother Cancer Family History: Reports: - - Ovarian cancer Review of Systems General: Reports: Fever Eyes: Denies: Visual changes - bilaterally, Diplopia ENT: Reports: Sore throat Cardiovascular: Denies: Chest pain, Palpitations Respiratory: Reports: Cough Gastrointestinal: Denies: Abdominal pain, Nausea, Vomiting, Diarrhea, Melena, H ematochezia Genitourinary: Denies: Dysuria, Hematuria, Frequency Musculoskeletal: Denies: Back pain, Extremity Pain Skin: Denies: Rash, Wounds Neurological: Denies: Headache, Weakness, Numbness Physical Exam Vital Signs/Narrative: Vital Signs Temp Pulse Resp BP Pulse Ox 02/27/20 00:47 98.2 F 81 18 115/72 100 Inital Vital Signs reviewed: Yes General: Well nourished, Well developed, No Acute Distress Head: Normocephalic, Atraumatic Eyes: Perrl, EOMI ENT: Moist mucous membranes, No rhinorrhea Neck: Supple, Nontender Cardiovascular: Regular rate, Regular rhythm, No murmurs Respiratory: No distress, CTA bilaterally, Chest nontender Abdomen: Soft, Nontender, Nondistended, Normal bowel sounds Back: Nontender, Normal Inspection Extremities: Nontender, No edema Skin: Normal color, No rash Neurological: Alert, Oriented x3, Cranial nerves II-XII grossly intact, Normal Strength, Normal Sensation Psychological: Normal affect, Normal Mood Diagnostic/Tx/Re-eval - Medical Decision Making The patient is very well-appearing. She has no fever or hypoxia. I do feel that this is more an exacerbation of her asthma with a scant wheeze that clears with cough. I did review the [facility] protocol. Since she has not had any documented encounters with positive patients, she does not meet criteria for testing at this point. However, I did reassure the patient that she will need to self quarantine for 14 days and monitor her symptoms. She will also be given the outpatient number for the [facility] hotline to discuss her symptoms and if she will meet criteria for testing. The patient is comfortable with this plan of care. Impression 1. Concern for Covid 19 exposure ED Disposition - Plan for ED Patient: Instructions: 2019-nCoV Prescriptions: Prednisone [Deltasone] 40 mg PO DAILY #10 tab Prescription Printed Referrals: Care Physician,No Primary [Primary Care Provider] - Additional Instructions: Please call the [facility] hotline later today. They are open from 9 AM until 8 PM. They will be able to give you any further guidance about obtaining testing. The number is .
[2020-02-27] MEDS: predniSONE 20 MG Tablet 60 MG PO (01:31)
[2020-02-27 01:47] VITALS: RESP 16
== END 2020-02-27 01:47 | disposition home or self-care (01) ==
PROVIDERS: Emergency Provider Emergency Medicine; PCP Internal Medicine
DX: R50.9 Fever, unspecified (principal); J45.909 Unspecified asthma, uncomplicated; F17.200 Nicotine dependence, unspecified, uncomplicated
CPT/HCPCS: 71045; 99283

== ENCOUNTER 2020-04-26 11:23 | Emergency (ER) | payer MEDICAID, SELFPAY ==
[2020-04-26 11:24] VITALS: BP 117/79; PULSE 81; RESP 20; TEMP 37; O2SAT 100; BMI 32.5
--- NOTE | 2020-04-26 11:56 | EKG12_ITS ---
Test Reason : CP Blood Pressure : / mmHG Vent. Rate : 082 BPM Atrial Rate : 082 BPM P-R Int : 146 ms QRS Dur : 078 ms QT Int : 364 ms P-R-T Axes : 060 044 052 degrees QTc Int : 425 ms Normal sinus rhythm Normal ECG Confirmed by LITTLE SAMANIEGO, SHANIKA ([id number]), purchasing expeditor BEATA IGNACIO ([id number]) on 04/29/2020 10:33:35 AM Referred By: MERISSA/ Confirmed By:SHANIKA FITCH MD
--- NOTE | 2020-04-26 11:57 | ED.VIS.GEN ---
History of Present Illness Chief Complaint: Chest Pain Narrative: This is a 34-year-old female who presents with chest pain. She has actually been having similar pain for about 6 to 7 months. This is associated with pain down her right arm as well as numbness in her third through fifth digits. She has seen her primary care physician. Given the extremity pain and numbness she was referred to orthopedics. She had outpatient studies including an EMG. They thought her symptoms may be attributable to thoracic outlet syndrome and she was scheduled for an ultrasound however this was delayed due to the COVID pandemic. She states that her pain while similar in character is worse than it ever has been before today. She also complains of some shortness of breath and pain when she takes a deep breath. No history of recent travel or surgery. No history of DVT or pulmonary embolism. She denies history of diabetes, hypertension, hyperlipidemia. Past Medical History - Allergies and Home Meds Allergies/Adverse Reactions: Allergies benzonatate [From Tessalon Perles] Allergy (Verified 04/26/20 11:24) Rash diazepam [From Valium] Allergy (Verified 04/26/20 11:24) Hives morphine Allergy (Verified 04/26/20 11:24) Itching Penicillins Allergy (Verified 04/26/20 11:24) Hives venom-honey bee [bee venom (honey bee)] Allergy (Verified 04/26/20 11:24) Hives Primary Care Physician: Yassine Link MD [Primary Care Provider] - Past Medical History: - - Asthma, anxiety, possible thoracic outlet syndrome Surgical History: hysterectomy, - - Left ovary removed Smoking Status: Current every day smoker - Family History Maternal Family History: Family History (Last Reviewed 09/17/19 @ 16:[address] Bartolo Gonzalez MD) Father Heart disease Hypertension Myocardial infarction Mother Cancer Family History: Reports: - - Ovarian cancer Review of Systems All systems negative except as indicated General: Denies: Fever Eyes: Denies: Visual changes - bilaterally ENT: Denies: Bilateral ear pain Cardiovascular: Reports: Chest pain Respiratory: Reports: Dyspnea. Denies: Cough Gastrointestinal: Denies: Nausea, Vomiting Musculoskeletal: Denies: Myalgias, Arthralgias Skin: Denies: Rash Neurological: Denies: Headache Hematologic: Denies: Easy bruising, Easy bleeding Allergy: Denies: Uticaria Physical Exam Vital Signs/Narrative: Vital Signs Temp Pulse Resp BP Pulse Ox 04/26/20 11:24 98.6 F 81 20 H 117/79 100 Inital Vital Signs reviewed: Yes General: Well nourished Head: Normocephalic Eyes: EOMI ENT: Moist mucous membranes Neck: Supple Cardiovascular: Regular rate, Regular rhythm Respiratory: No distress, CTA bilaterally Abdomen: Soft Extremities: Nontender, No edema, - - Easily palpable and symmetric bilateral radial pulses Skin: Normal color Neurological: Alert Psychological: Normal affect Diagnostic/Tx/Re-eval Impressions Chest X-Ray 04/26/20 12:36 IMPRESSION: Normal x-ray examination of the chest. Electronically Signed: Willy Barrettjohn, at 13:01 EDT , Service support , 04/26/20 12:36 Chest PA and Lateral [RAD] Stat Laboratory Results 04/26/20 04/26/20 04/26/20 12:08 12:08 12:08 WBC 7.2 RBC 4.78 Hgb 15.3 H Hct 46.0 MCV 96.2 MCH 32.0 MCHC 33.3 RDW Std Deviation 44.1 H RDW Coeff of Reji 12.3 Plt Count 171 MPV 11.4 Immature Gran % (Auto) 0.400 Neut % (Auto) 50.0 Lymph % (Auto) 39.2 [place] % (Auto) 6.8 Eos % (Auto) 2.8 Baso % (Auto) 0.8 Absolute Neuts (auto) 3.6 Absolute Lymphs (auto) 2.82 Nucleated RBC % 0 D-Dimer Quant (PE/DVT) 0.34 Sodium 139 Potassium 3.8 Chloride 108 H Carbon Dioxide 26.0 Anion Gap 5 BUN 13 Creatinine 0.67 Estim Creat Clear Calc 84.18 Est GFR (MDRD) Af Amer 128 Est GFR (MDRD) Non-Af 106 BUN/Creatinine Ratio 19.3 Glucose 92 Calcium 8.7 Troponin I < 0.015 - Medical Decision Making EKG shows normal sinus rhythm at a rate of 82. Chest x-ray shows no acute process. Laboratory studies are unremarkable with a negative troponin and normal d-dimer. ED Disposition - Plan for ED Patient: Disposition: Home or Assisted Living Diagnosis: Chest pain Instructions: ED Chest Pain Atypical Unkn Cause Referrals: Yassine Link MD [Primary Care Provider] -
[2020-04-26 12:22] LABS: Absolute Lymphocyte Count 2.82 X10^3/uL (0.83-4.51); Absolute Neutrophil Count 3.6 X10^3/uL (2.0-7.7); Basophil# 0.06 X10^3/uL; Basophil% 0.8 % (0-1); Eosinophils% 2.8 % (0-5); Hemoglobin 15.3 g/dL (12.0-15.0); Lymphocyte # 2.82 X10^3/ul (4.0); Lymphocyte % 39.2 % (19-41); Mean Corp Hgb Conc 33.3 g/dL (32-36); Mean Corpuscular Volume 96.2 fL (81-99); Mean Platelet Vol. 11.4 fl (6.2-12.0); Monocyte# 0.49 X10^3/uL; Monocyte% 6.8 % (0-10); NRBC Flagged by Analyzer 0 % (0-5); Neutrophil # 3.59 X10^3/uL (2.7-7.7); Platelet Count 171 K/mm3 (150-450); RBC Distribution Width CV 12.3 % (11.6-14.6); RBC Distribution Width SD 44.1 fl (35.1-43.9); Red Blood Count 4.78 M/mm3 (4.2-5.4); White Blood Count 7.2 K/mm3 (4.4-11.0)
[2020-04-26] MEDS: Ketorolac 30 MG/ML Syringe IV (12:27)
[2020-04-26 12:29] VITALS: BP 110/77; PULSE 61; RESP 13; O2SAT 100
[2020-04-26 12:33] LABS: D-Dimer Quantitative (DVT/PE) 0.34 FEU/ug/m (0.27-0.49)
--- NOTE | 2020-04-26 12:36 | RAD_ITS ---
STUDY: X-RAY CHEST REASON FOR EXAM: Female, 34 years old. Left upper chest pain that is radiating into the back for a few months now worse today. Patient states is having nausea as well. TECHNIQUE: PA and lateral views of the chest. COMPARISON: Comparison is made with prior study dated February 27, 2020. FINDINGS: EKG electrodes are seen. The lungs are clear and expanded. Scattered calcified granulomas. There is no demonstrated pleural abnormality. Normal size heart. Normal mediastinum and jannette. Normal visualized pulmonary arteries. Normal visualized aortic arch and descending thoracic aorta. There are mild degenerative changes of the visualized thoracic spine. Normal visualized ribs, clavicles, and shoulders. There is no demonstrated abnormality of the visualized soft tissue structures of the upper abdomen. RAD/Chest PA and Lateral IMPRESSION: Normal x-ray examination of the chest. Electronically Signed: Willy Hilliard, at 13:01 EDT , Service support ,
[2020-04-26 12:40] LABS: Anion Gap 5 (5-15); BUN 13 mg/dL (7-18); BUN/Creat Ratio 19.3 RATIO (10-20); Calcium,Total 8.7 mg/dL (8.5-10.1); Chloride 108 mmol/L (98-107); Creatinine, Serum 0.67 mg/dL (0.55-1.02); EST Glomerular Filtration Rate 106 mL/min (>60); Est Glom Filt Rate - Afr Amer 128 mL/min (>60); Estimated Creatinine Clearance 84.18 ml/min; Glucose 92 mg/dL (74-106); Potassium 3.8 mmol/L (3.5-5.1); Sodium Level 139 mmol/L (136-145)
[2020-04-26 13:00] VITALS: BP 108/71; PULSE 63; RESP 16; O2SAT 100
== END 2020-04-26 13:32 | disposition home or self-care (01) ==
PROVIDERS: Emergency Provider Emergency Medicine; PCP Internal Medicine
DX: R07.9 Chest pain, unspecified (principal); J45.909 Unspecified asthma, uncomplicated; F41.9 Anxiety disorder, unspecified; F17.200 Nicotine dependence, unspecified, uncomplicated; Z82.49 Family history of ischemic heart disease and other diseases of the circulatory system
CPT/HCPCS: 71046; 80048; 84484; 85025; 85379; 93005; 96374; 99284; A4216

== ENCOUNTER → 2020-04-28 10:53 | Outpatient (CLI) | payer MEDICAID, SELFPAY ==
[2020-04-26 11:24] VITALS: BMI 32.5
--- NOTE | 2020-04-28 10:55 | ART_ITS ---
Reason For Study: Thoracic outlet syndrome Procedure A bilateral upper extremity continuous wave Doppler with analog waveform analysis and segmental pressures. With positional arm dopplers for thoracic outlet syndrome. Left Segmental Pressures Left brachial= 115mmHg. Left forearm by way of the radial artery = 120mmHg. Left ulnar= 131mmHg. Left radial= 128mmHg. The left radial waveforms are triphasic. The left ulnar waveforms are triphasic. Right Segmental Pressures Right brachial= 116mmHg. Right forearm pressure by way of the radial artery = 113mmHg. Right ulnar= 133mmHg. Right radial= 134mmHg. The right radial waveforms are triphasic. The right ulnar waveforms are triphasic. Indices The right wrist brachial index by the radial artery is 1.16. The right wrist brachial index by the ulnar artery is 1.15. The left wrist brachial index by the radial artery is 1.10. The left wrist brachial index by the ulnar artery is 1.13. Interpretation Summary Normal resting bilateral upper extremity radial artery and ulnar artery/brachial indices and triphasic Doppler waveforms. Right upper extremity: There is a decline in pulse volume recording waveform in both the head right and left positions Left upper extremity: There is a decline in pulse volume recording waveform in the head right and symptomatic positions. Findings would suggest a degree of vascular compression. Clinical correlation would be appropriate Ordering Physician: Cam Albrecht Referring Physician: Yassine Link M.D. Performed By: Rosario Frances RVT
== END ==
PROVIDERS: PCP Internal Medicine; Referring Provider Orthopaedic Surgery; Visit Provider Orthopaedic Surgery
DX: G54.0 Brachial plexus disorders (principal)
CPT/HCPCS: 93923

== ENCOUNTER → 2020-08-19 09:50 | Outpatient (CLI) | payer MEDICAID, SELFPAY | PROVIDERS: PCP Internal Medicine; Referring Provider Nurse Practitioner Family; Visit Provider Nurse Practitioner Family | DX: Z20.828 Contact with and (suspected) exposure to other viral communicable diseases (principal) | CPT/HCPCS: 87635; C9803; U0003 ==

== ENCOUNTER 2020-10-08 12:08 | Emergency (ER) | payer MEDICAID, SELFPAY ==
[2020-10-08 12:08] VITALS: BP 128/76; PULSE 83; RESP 18; TEMP 36.2; O2SAT 100; BMI 32.6
--- NOTE | 2020-10-08 13:10 | ED.DCSUM_ITS ---
- ER Visit Summary Date of Service: 10/08/20 Chief Complaint: Left labial abscess History of Present Illness: The patient is a 34 F past medical history of asthma and prior hysterectomy. Patient states for a week she had a left labial abscess. She was able to express clear fluid from it at home. She denies any fever or chills. She is not diabetic. She has had these before but is never needed one drained. Physical Examination: Well-appearing 34-year-old female. Vital signs stable afebrile. H EENT exam unremarkable. Lungs are clear. Heart regular rhythm no murmur. Abdomen soft nontender. Patient is moving all 4 extremities. No edema. Female nurse present in the room I examined the patient's external area. There is no inguinal lymphadenopathy. There is no redness or cellulitis. She has a very very small anterior left labial abscess on the inferior portion of her labia. There is no fluctuance whatsoever. There is no significant swelling. There is no extension to surrounding tissue. There is only mild tenderness. There is no necrotic tissue. I discussed with the patient this does not need to be drained at this time. Test Results: None Emergency Department Course and Treatment: Left labial abscess that the patient drained at home. No incision and drainage is needed at this time. She will be started on Keflex 4 times a day for a week. Follow-up with her FINANCIAL SERVICES ASSISTANT next week. Return if worse. Treatment Plan: Warm soaks. Motrin and Tylenol for pain. Return if worse. Follow-up with her FINANCIAL SERVICES ASSISTANT next week. Keflex 4 times a day for 1 week. Disposition: Discharge Impression: Acute left labial abscess (no incision and drainage needed at this time) This note was generated with [employer] dictation software. It may contain incorrect words, spelling, and punctuation that were not noted in review of the chart prior to signing ED Disposition - Plan for ED Patient: Disposition: Home or Assisted Living Prescriptions: Cephalexin [Keflex] 500 mg PO [id number] #30 cap Prescription Printed Referrals: Lola Lipscomb NP, SAFETY GROOVING MACHINE OPERATOR-C [Nurse Practitioner] - 3-5 Days if not improving Additional Instructions: Warm soaks to the area. Tylenol and Motrin for pain. Keflex 4 times a day till gone. Follow-up with your FINANCIAL SERVICES ASSISTANT's office next week if not improving. If gets worse over the weekend and is a lot larger and more swollen return to have it drained. It does not need to be drained at this time.
--- NOTE | 2020-10-08 13:12 | ED.DEP ---
ED Disposition - Plan for ED Patient: Disposition: Home or Assisted Living Prescriptions: Cephalexin [Keflex] 500 mg PO [id number] #30 cap Prescription Printed Referrals: Lola Lipscomb NP, DRUG ABUSE PROGRAM COORDINATOR-C [Nurse Practitioner] - 3-5 Days if not improving Additional Instructions: Warm soaks to the area. Tylenol and Motrin for pain. Keflex 4 times a day till gone. Follow-up with your HAND TIER's office next week if not improving. If gets worse over the weekend and is a lot larger and more swollen return to have it drained. It does not need to be drained at this time.
[2020-10-08] MEDS: Cephalexin 250 MG Capsule 500 MG PO (13:29)
== END 2020-10-08 13:30 | disposition home or self-care (01) ==
LOC: ED 13:20
PROVIDERS: Emergency Provider Emergency Medicine; PCP Internal Medicine
DX: N76.4 Abscess of vulva (principal); J45.909 Unspecified asthma, uncomplicated; Z72.0 Tobacco use
CPT/HCPCS: 99283

== ENCOUNTER 2020-10-28 11:22 | Emergency (ER) | payer MEDICAID, SELFPAY ==
[2020-10-28 11:23] VITALS: BP 117/48; PULSE 95; RESP 16; TEMP 36.1; O2SAT 99; BMI 30.4
--- NOTE | 2020-10-28 11:41 | ED.VIS.GEN ---
History of Present Illness Chief Complaint: Lower Extremity Injury Narrative: This patient is a 34-year-old female who presents with pain on the bottom of her left foot and arch. She woke with it today. She does not recall any fall or injury. She did not step on anything. No history of prior similar symptoms. No paresthesias or weakness. Past Medical History - Allergies and Home Meds Allergies/Adverse Reactions: Allergies benzonatate [From Tessalon Perles] Allergy (Verified 10/28/20 11:23) Rash diazepam [From Valium] Allergy (Verified 10/28/20 11:23) Hives morphine Allergy (Verified 10/28/20 11:23) Itching Penicillins Allergy (Verified 10/28/20 11:23) Hives venom-honey bee [bee venom (honey bee)] Allergy (Verified 10/28/20 11:23) Hives Primary Care Physician: Yassine Link MD [Primary Care Provider] - Past Medical History: - - Thoracic outlet syndrome, depression, anxiety Surgical History: hysterectomy, - - Left ovary removed Smoking Status: Current every day smoker - Family History Maternal Family History: Family History (Last Reviewed 09/17/19 @ 16:[address] Bartolo Gonzalez MD) Father Heart disease Hypertension Myocardial infarction Mother Cancer Family History: Reports: - - Ovarian cancer Review of Systems All systems negative except as indicated General: Denies: Fever Cardiovascular: Denies: Chest pain Respiratory: Denies: Dyspnea Gastrointestinal: Denies: Nausea, Vomiting, Diarrhea Musculoskeletal: Reports: Extremity Pain. Denies: Myalgias Skin: Denies: Rash Neurological: Denies: Headache Physical Exam Vital Signs/Narrative: Vital Signs Temp Pulse Resp BP Pulse Ox 10/28/20 11:23 96.9 F L 95 16 117/48 L 99 Inital Vital Signs reviewed: Yes General: Well nourished Head: Normocephalic Eyes: EOMI ENT: Moist mucous membranes Neck: Supple Cardiovascular: Regular rate Respiratory: No distress Abdomen: Soft Extremities: - - Patient has focal tenderness along the bottom of the left foot along the plantar fascia. She does not have bony tenderness, she has an easily palpable dorsalis pedis pulse with brisk capillary refill normal sensation and normal motor function Skin: Normal color Neurological: Alert Psychological: Normal affect Diagnostic/Tx/Re-eval - Medical Decision Making Presentation is most consistent with plantar fasciitis. I do not see an indication for imaging at this time. She was advised on supportive care. She was given naproxen. She was given a prescription for the same. ED Disposition - Plan for ED Patient: Disposition: Home or Assisted Living Diagnosis: Plantar fasciitis of left foot Instructions: ED Plantar Fasciitis Prescriptions: Naproxen [Naprosyn] 500 mg PO BID #20 tab Prescription Printed Referrals: Yassine Link MD [Primary Care Provider] -
[2020-10-28] MEDS: Naproxen 500 MG Tablet PO (11:55)
== END 2020-10-28 12:22 | disposition home or self-care (01) ==
LOC: ED 12:15
PROVIDERS: Emergency Provider Emergency Medicine; PCP Internal Medicine
DX: M72.2 Plantar fascial fibromatosis (principal); F17.200 Nicotine dependence, unspecified, uncomplicated
CPT/HCPCS: 99282

== ENCOUNTER 2020-12-14 11:51 | Emergency (ER) | payer MEDICAID, SELFPAY ==
[2020-12-14 11:18] VITALS: BMI 34.0
[2020-12-14 11:51] VITALS: BP 114/69; PULSE 73; RESP 16; TEMP 36.2; BMI 34.0
--- NOTE | 2020-12-14 12:00 | ED.DCSUM_ITS ---
History of Present Illness Chief Complaint: Upper Extremity Injury Informant: Patient Onset: Yesterday Context: Gradual Onset Timing: Continuous Current Severity: Moderate Maximum Severity: Moderate Narrative: Patient is a 35-year-old female with medical history significant for thoracic outlet syndrome who is actually scheduled for surgery next month that presents to the emergency department left shoulder injury. Patient states he was coming down her stairs yesterday morning. She states that she slipped on ice. She landed on her left side. She did not strike her head or lose consciousness. She states later in the day, she fell again landing on the side. She states has had persistent pain and diminished range of motion secondary to pain. She denies any numbness in the arm. She is otherwise been in her normal state of health. Prior similar symptoms: No Recent Illness/Hospitalization: No Past Medical History - Allergies and Home Meds Allergies/Adverse Reactions: Allergies benzonatate [From Tessalon Perles] Allergy (Verified 12/14/20 11:53) Rash diazepam [From Valium] Allergy (Verified 12/14/20 11:53) Hives morphine Allergy (Verified 12/14/20 11:53) Itching Penicillins Allergy (Verified 12/14/20 11:53) Hives venom-honey bee [bee venom (honey bee)] Allergy (Verified 12/14/20 11:53) Hives Primary Care Physician: Yassine Link MD [Primary Care Provider] - Prior records reviewed: Yes Past Medical History: - - Thoracic outlet syndrome, abscess Surgical History: noncontributory, hysterectomy, - - Left ovary removed Smoking Status: Current every day smoker - Family History Maternal Family History: Family History (Last Reviewed 12/14/20 @ 11:22 by Cassia Chung) Father Heart disease Hypertension Myocardial infarction Mother Cancer Family History: Reports: - - Ovarian cancer Review of Systems General: Denies: Chills, Fever, Sweats Eyes: Denies: Visual changes - bilaterally, Diplopia ENT: Denies: Rhinorrhea, Sore throat Cardiovascular: Denies: Chest pain, Palpitations Respiratory: Denies: Dyspnea, Cough, Dyspnea on exertion Gastrointestinal: Denies: Abdominal pain, Nausea, Vomiting, Diarrhea, Melena, Hematochezia Genitourinary: Denies: Dysuria, Hematuria, Frequency Musculoskeletal: Denies: Back pain, Extremity Pain Skin: Denies: Rash, Wounds Neurological: Denies: Headache, Weakness, Numbness Physical Exam Vital Signs/Narrative: Vital Signs Temp Pulse Resp BP 12/14/20 11:51 97.2 F L 73 16 114/69 Inital Vital Signs reviewed: Yes General: Well nourished, Well developed, No Acute Distress Head: Normocephalic, Atraumatic Eyes: Perrl, EOMI ENT: Moist mucous membranes, No rhinorrhea Neck: Supple, Nontender Cardiovascular: Regular rate, Regular rhythm, No murmurs Respiratory: No distress, CTA bilaterally, Chest nontender Abdomen: Soft, Nontender, Nondistended, Normal bowel sounds Back: Nontender, Normal Inspection Extremities: No edema, Tenderness - Tender over the left shoulder. No obvious deformity. Axillary nerve preserved. Normal pulses. Diminished range of motion secondary to pain. Skin: Normal color, No rash Neurological: Alert, Oriented x3, Cranial nerves II-XII grossly intact, Normal Strength, Normal Sensation Psychological: Normal affect, Normal Mood Diagnostic/Tx/Re-eval - Medical Decision Making Plain films were obtained of the left shoulder. These were reviewed by both myself and the radiologist. There was no evidence of fracture dislocation. Collarbones were normal. Acromion is normal. The patient has normal pulses and sensation. I do feel that her symptoms are likely secondary to contusion and exacerbated by her thoracic outlet syndrome. The patient be treated with anti- inflammatories and will follow up with orthopedics. Impression 1. Left shoulder contusion ED Disposition - Plan for ED Patient: Instructions: ED Shoulder Sprain Prescriptions: Naproxen [Naprosyn] 500 mg PO BID PRN #20 tab Prescription Printed Referrals: Yassine Link MD [Primary Care Provider] -
[2020-12-14] MEDS: HYDROcodone Bitartrate/Apap 5/325 Tablet PO (12:07)
--- NOTE | 2020-12-14 12:10 | RAD_ITS ---
STUDY: X-RAY - LEFT SHOULDER REASON FOR EXAM: Female, 35 years old. FELL TWICE YESTERDAY TECHNIQUE: 4 view(s) of the shoulder. COMPARISON: None. FINDINGS: Normal glenohumeral articulation. Normal acromioclavicular joint. Normal acromion. Normal humeral head and visualized proximal humerus. The soft tissue structures are unremarkable. Normal visualized pulmonary apex. RAD/Shoulder min 2 Views IMPRESSION: Normal x-ray examination of the shoulder. Electronically Signed: Willy Hilliard MD at 12:30 EST , Service support ,
== END 2020-12-14 12:33 | disposition home or self-care (01) ==
LOC: ED 12:31
PROVIDERS: Emergency Provider Emergency Medicine; PCP Internal Medicine
DX: S40.012A Contusion of left shoulder, initial encounter (principal); W00.1XXA Fall from stairs and steps due to ice and snow, initial encounter; Y93.01 Activity, walking, marching and hiking; Y92.9 Unspecified place or not applicable; Y99.9 Unspecified external cause status; G54.0 Brachial plexus disorders; F17.200 Nicotine dependence, unspecified, uncomplicated
CPT/HCPCS: 73030; 99283

== ENCOUNTER 2021-01-17 17:24 | Emergency (ER) | payer MEDICAID, SELFPAY ==
[2021-01-17 17:24] VITALS: BP 130/75; PULSE 88; RESP 16; TEMP 36; O2SAT 99; BMI 33.4
--- NOTE | 2021-01-17 17:57 | ED.DCSUM_ITS ---
History of Present Illness Chief Complaint: Back Informant: Patient Narrative: Patient is a 35-year-old female presenting with worsening left back and hip pain. Patient's had issues with low back pain and left hip pain for couple months and is currently being evaluated for bursitis of her left hip from her PCP. She is on a prednisone taper. She was doing slightly better if not stable when she slipped and fell on ice earlier today. Since then she is been having worsening pain in her left hip and back. The pain radiates down her left lateral thigh. Patient took extra strength Tylenol with no relief of her symptoms. She denies associated numbness or tingling. Denies any weakness of her legs. Pain is worse with range of motion. The pain seems to start in her hip and go up to her back and down her leg. She knows she is post to have an outpatient x-ray but has not gotten around to doing it yet. She denies any incontinence or saddle anesthesia. No other complaints at this time. Past Medical History - Allergies and Home Meds Allergies/Adverse Reactions: Allergies benzonatate [From Tessalon Perles] Allergy (Verified 01/17/21 17:24) Rash diazepam [From Valium] Allergy (Verified 01/17/21 17:24) Hives morphine Allergy (Verified 01/17/21 17:24) Itching Penicillins Allergy (Verified 01/17/21 17:24) Hives venom-honey bee [bee venom (honey bee)] Allergy (Verified 01/17/21 17:24) Hives Primary Care Physician: Yassine Link MD [Primary Care Provider] - Past Medical History: - - IBS, GERD, anxiety/depression Surgical History: noncontributory, hysterectomy, - - Left ovary removed Smoking Status: Current every day smoker - Family History Maternal Family History: Family History (Last Reviewed 12/14/20 @ 11:22 by Cassia Chung) Father Heart disease Hypertension Myocardial infarction Mother Cancer Family History: Reports: - - Ovarian cancer Review of Systems General: Denies: Chills, Fever, Sweats Eyes: Denies: Visual changes - bilaterally, Diplopia ENT: Denies: Rhinorrhea, Sore throat Cardiovascular: Denies: Chest pain, Palpitations Respiratory: Denies: Dyspnea, Cough, Dyspnea on exertion Gastrointestinal: Denies: Abdominal pain, Nausea, Vomiting, Diarrhea, Melena, Hematochezia Genitourinary: Denies: Dysuria, Hematuria, Frequency Musculoskeletal: Reports: Back pain, Extremity Pain - left hip . Denies: Swelling Skin: Denies: Rash, Wounds Neurological: Denies: Headache, Weakness, Numbness Physical Exam Vital Signs/Narrative: Vital Signs Temp Pulse Resp BP Pulse Ox 01/17/21 17:24 96.8 F L 88 16 130/75 H 99 Inital Vital Signs reviewed: Yes General: Well nourished, Well developed Head: Normocephalic, Atraumatic Eyes: Perrl, EOMI ENT: Moist mucous membranes, No rhinorrhea Neck: Supple, Nontender Cardiovascular: Regular rate, Regular rhythm, No murmurs Respiratory: No distress, CTA bilaterally, Chest nontender Abdomen: Soft, Nontender, Nondistended, Normal bowel sounds Rectal: Deferred Back: Normal Inspection, Paraspinal Tenderness - Diffusely for the left lower lumbar back, no midline tenderness, no step-off sign, Negative SLR - Right, Negative SLR - Left Extremeties: No edema, Tenderness - left hip/greater trochanter, Strong Pulses, Symmetric Skin: Normal color, No rash Neuro: Alert, Oriented, Normal Strength, Normal Sensation, Normal DTR, Normal Gait Psychological: Normal affect Diagnostic/Tx/Re-eval X-Ray: Left Hip, Read by ED Physician, Normal Bony Alignment - Medical Decision Making Patient evaluated for worsening left hip pain. She has been dealing with bursitis of her left hip and then had a fall on ice today. No loss of c onsciousness. No head injury. No findings consistent with cauda equina syndrome. X-ray obtained does not show any acute process. This is interpreted by myself. Patient given a shot of IM Dilaudid in the ER for pain control. She does have improvement of her symptoms. She is neurovascularly intact. She can follow-up with her primary care doctor as needed. She will continue to take Tylenol and add in Motrin as needed for pain control. She is given a work note for tomorrow if needed. Patient is counseled on signs and symptoms requiring return to the emergency room. Patient verbalizes agreement and understand this plan. Patient discharged home in stable and improved condition. ED Disposition - Plan for ED Patient: Disposition: Home or Assisted Living Diagnosis: Fall due to ice or snow, Left hip pain Instructions: ED Back Pain (Acute or Chronic), ED Hip Strain Referrals: Yassine Link MD [Primary Care Provider] - Additional Instructions: Follow-up with your primary care doctor. You might benefit from discussing options for physical therapy again. Alternate Tylenol and ibuprofen for pain.
--- NOTE | 2021-01-17 18:00 | RAD_ITS ---
STUDY: X-RAY - PELVIS AND LEFT HIP REASON FOR EXAM: Female, 35 years old. LOW BACK PAIN RADIATING DOWN LEFT LEG TECHNIQUE: 3 views of the pelvis and hip. COMPARISON: None. FINDINGS: There is a non-specific bowel gas pattern. Normal visualized soft tissue structures. Normal bilateral iliac wings, sacroiliac joints and visualized sacrum. Normal bilateral superior and inferior pubic rami. Normal pubic symphysis. Normal bilateral ischial tuberosities. Normal visualized femoral head. Normal acetabulum. Normal hip joint. RAD/HIP, UNI W/ Pelvis 2-3 Views IMPRESSION: Normal x-ray examination of the pelvis and hip. Electronically Signed: Tez Garcia MD at 18:32 EST , Service support ,
[2021-01-17] MEDS: HYDROmorphone 0.5 MG/0.5 ML SYRINGE IM (18:14)
[2021-01-17 18:34] VITALS: BP 129/77; PULSE 62; RESP 15; O2SAT 98
== END 2021-01-17 18:37 | disposition home or self-care (01) ==
PROVIDERS: Emergency Provider Emergency Medicine; PCP Internal Medicine
DX: M25.552 Pain in left hip (principal); K21.9 Gastro-esophageal reflux disease without esophagitis; K58.9 Irritable bowel syndrome, unspecified; F17.200 Nicotine dependence, unspecified, uncomplicated
CPT/HCPCS: 73502; 96372; 99282

== ENCOUNTER 2021-03-30 09:41 | Emergency (ER) | payer MEDICAID, SELFPAY ==
[2021-01-19 14:23] VITALS: BMI 33.7
[2021-03-30 09:42] VITALS: BP 119/77; PULSE 85; RESP 16; TEMP 35.7; O2SAT 100; BMI 33.8
--- NOTE | 2021-03-30 09:57 | EDS_ITS ---
HPI History of Present Illness Chief Complaint: Upper Extremity Injury Narrative Narrative: Patient presenting for evaluation secondary to left arm pain. Patient has a underlying history of thoracic outlet syndrome. She reports that she underwent work-up by an orthopedic surgeon last year and had physical therapy which actually improved her symptoms. Patient states that recently she has been having worsening of her left arm pain consistent with her thoracic outlet syndrome. Is associated with pain that goes all the way from her neck down her left arm that is worse with palpation and movement and occasionally is associated with some tingling in her fingers and a feeling of coolness in her left hand. She denies that there is a specific injury associated with this. She denies any shortness of breath. She does report that she occasionally gets some radiation to her chest. Patient denies any cardiovascular risk factors. [facility] Medical History (Updated 03/30/21 @ 10:[address] Jaxson Pinto MD) Anxiety Depression GERD (gastroesophageal reflux disease) IBS (irritable bowel syndrome) Home Medications albuterol sulfate 2 puff INHALATION Q4H PRN PRN #0 inhaler 05/03/16 [Rx Last Taken 11/17/18] albuterol sulfate 2.5 mg INHALATION Q6H PRN PRN 10/06/16 [History Last Taken 11/17/18] pantoprazole 20 mg PO BID 04/26/20 [History Last Taken Unknown] fluticasone propionate 110 mcg/actuation HFA aerosol inhaler 1 puff INHALATION BID 12/14/20 [History Last Taken Unknown] oxycodone-acetaminophen [Percocet] 1 tab PO Q8H PRN 3 Days #9 tab 03/30/21 [Rx Last Taken Unknown] Allergy/AdvReac Type Severity Reaction Status Date / Time benzonatate Allergy Rash Verified 03/30/21 09:42 [From Tessalon Perles] diazepam [From Valium] Allergy Hives Verified 03/30/21 09:42 morphine Allergy Itching Verified 03/30/21 09:42 Penicillins Allergy Hives Verified 03/30/21 09:42 venom-honey bee Allergy Hives Verified 03/30/21 09:42 [bee venom (honey bee)] Family History Father Heart disease Hypertension Myocardial infarction Mother Cancer lung, throat and Lupus Surgical History History of esophagogastroduodenoscopy (EGD) S/P breast biopsy S/P colonoscopy Status post hysterectomy Social History Smoking Status: Current every day smoker alcohol intake: current alcohol intake frequency: holidays/special occasions only substance use type: marijuana caffeine: Yes what type of physical activity do you participate in: none seatbelt use: sometimes do you feel safe at home: Yes additional social history: Boyfriend-Sha- Works at [employer] Patient works at [employer] ROS ROS ED Constitutional Constitutional ED: Denies chills or sweats ENT ENT ED: Reports ear pain Cardiovascular Cardiovascular: Reports chest pain Respiratory/Chest Respiratory/Chest: Denies cough or dyspnea Gastrointestinal Gastrointestinal: Denies abdominal pain, nausea or vomiting Musculoskeletal Musculoskeletal: Reports neck pain and other Details: Left arm pain Integumentary Denies rash Neurologic Neurologic: Reports paresthesias; Denies weakness Psychiatric Psychiatric: Denies depression Hematologic/Lymphatic Hematologic/Lymphatic: Denies easy bleeding or easy bruising EXAM Physical Exam Const Vital Signs: 03/30/21 09:42 Temperature 96.2 F L Temperature Source Temporal Pulse Rate 85 Respiratory Rate 16 Blood Pressure 119/77 Blood Pressure Mean 91 Pulse Ox 100 Oxygen Delivery Method Room Air Positive well nourished and well developed General Appearance ED: well developed HEENT normocephalic and atraumatic Eyes EOMs intact bilaterally Neck Neck Narrative: Left trapezius spasm is noted with TTP Chest Wall inspection of chest normal Resp normal respiratory effort Cardio regular rate, regular rhythm and no murmurs Cardio Narrative: 2+ radial pulses bilaterally symmetric GI non-tender Palpation: soft Extremity Extremity Narrative: Examination of the patient's left arm shows some pain with range of motion. Patient is holding the arm in a flexed position which is the position of comfort. There is piloerection of the arms bilaterally. There are equal distal pulses, skin is equal in temperature bilaterally with no discoloration of the skin. Patient complains of some paresthesias in her fingers, but sensation is intact to light touch over all dermatomes. Neuro oriented x3, no focal motor deficits and no sensory deficits noted Sensorium / Orientation: alert Skin Lesions: no lesions Rashes: no rashes MDM MDM MDM Narrative Medical decision making narrative: Patient presented secondary to exacerbation of thoracic outlet syndrome. She has normal pulses, she does have some trapezius spasm and tenderness and she is complaining of some paresthesias but other has a normal circulatory and neuro exam. I do not believe that imaging or work-up are indicated at this point. I did review the patient's prescription reporting record, she does not seem to have any evidence of medication diversion. Patient was given a oxycodone in the emergency department should be discharged with a short course of Percocet. I will refer her to orthopedics so that she can get restarted on a physical therapy regimen. Should that not work, she can be rereferred to a surgeon who potentially could provide surgical intervention with a first rib removal. Discharge Plan Triage Chief Complaint: Upper Extremity Injury ED Provider: Jaxson Pinto Dx/Rx/DC Orders Clinical Impression: Thoracic outlet syndrome of left thoracic outlet Instructions: Shoulder Problems Prescriptions: New oxycodone-acetaminophen [Percocet] 5-325 mg tablet 1 tab PO Q8H PRN (Reason: pain) 3 Days Qty: 9 RF: 0 No Action albuterol sulfate 1 INHALER inhaler 2 puff INHALATION Q4H PRN PRN (Reason: Asthma) Qty: 0 RF: 0 albuterol sulfate 2.5 MG/3 ML solution for nebulization 2.5 mg INHALATION Q6H PRN PRN (Reason: Sob &/Or Wheezing) RF: 0 fluticasone propionate 110 mcg/actuation HFA aerosol inhaler 1 puff INHALATION BID RF: 0 pantoprazole 20 MG tablet 20 mg PO BID RF: 0 Primary Care Provider: Yassine Link Referrals: Geovanni Hubbard MD [STAFF PHYSICIAN] - As soon as possible Yassine Link MD [Primary Care Provider] - Disposition Disposition: Home, self care
[2021-03-30] MEDS: oxyCODONE 5 MG Tablet PO (10:11)
[2021-03-30 10:20] VITALS: RESP 17
== END 2021-03-30 10:21 | disposition home or self-care (01) ==
PROVIDERS: Emergency Provider Emergency Medicine; PCP Internal Medicine
DX: G54.0 Brachial plexus disorders (principal); F17.200 Nicotine dependence, unspecified, uncomplicated
CPT/HCPCS: 99283

== ENCOUNTER 2021-04-03 12:13 | Emergency (ER) | payer MEDICAID, SELFPAY ==
[2021-04-03 12:14] VITALS: BP 140/73; PULSE 77; RESP 14; TEMP 36.6; O2SAT 96; BMI 34.7
--- NOTE | 2021-04-03 13:07 | EX.ED.DYSGE1 ---
HPI History of Present Illness Chief Complaint: Chest Other Informant: patient Onset/Context/Timing Onset: Days (4) Context: Gradual Onset Timing: Continuous Quality: pain, aching Location: left neck/shoulder/trapezius Current Severity: Severe Maximum Severity: Severe Worsened by: lying on left side, heavy lifting Relieved by: percocet some Associated Symptoms Associated Symptoms: Intermittent numbness left hand Narrative Narrative: Patient states she was diagnosed with thoracic outlet syndrome, she has known about this for a long time and has had similar symptoms in the past with heavy lifting especially. 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 She denies any new symptoms. Paresthesias in her left upper extremity come and go. She denies seeing any pallor in her hand. She denies weakness in her arms and no symptoms in her legs. No trouble breathing. She states she has been evaluated at [facility] for the possibility of a rib resection to fix this, however she is not sure about going back there and wants to look into referrals elsewhere like [facility] Medical History Anxiety Depression GERD (gastroesophageal reflux disease) IBS (irritable bowel syndrome) Thoracic outlet syndrome Home Medications albuterol sulfate 2 puff INHALATION Q4H PRN PRN #0 inhaler 05/03/16 [Rx Last Taken 11/17/18] pantoprazole 20 mg PO BID 04/26/20 [History Last Taken Unknown] fluticasone propionate 110 mcg/actuation HFA aerosol inhaler 1 puff INHALATION BID 12/14/20 [History Last Taken Unknown] Allergy/AdvReac Type Severity Reaction Status Date / Time benzonatate Allergy Rash Verified 04/03/21 12:14 [From Tessalon Perles] diazepam [From Valium] Allergy Hives Verified 04/03/21 12:14 morphine Allergy Itching Verified 04/03/21 12:14 Penicillins Allergy Hives Verified 04/03/21 12:14 venom-honey bee Allergy Hives Verified 04/03/21 12:14 [bee venom (honey bee)] Family History Father Heart disease Hypertension Myocardial infarction Mother Cancer lung, throat and Lupus Surgical History History of esophagogastroduodenoscopy (EGD) S/P breast biopsy S/P colonoscopy Status post hysterectomy Social History Smoking Status: Current every day smoker alcohol intake: current alcohol intake frequency: holidays/special occasions only substance use type: marijuana caffeine: Yes what type of physical activity do you participate in: none seatbelt use: sometimes do you feel safe at home: Yes additional social history: Boyfriend-Sha- Works at [employer] Patient works at [employer] ED Constitutional Constitutional ED: Denies chills or fever(s) Eyes Eyes: Denies change in vision or diplopia ENT ENT ED: Denies ear pain, rhinorrhea or sore throat Cardiovascular Cardiovascular: Denies chest pain or palpitations Respiratory/Chest Respiratory/Chest: Denies cough or dyspnea Gastrointestinal Gastrointestinal: Denies abdominal pain, diarrhea, nausea or vomiting Genitourinary Genitourinary ED: Denies dysuria or hematuria Musculoskeletal Musculoskeletal: Reports as per HPI and neck pain Integumentary Denies abscess, Abrasions or rash Neurologic Neurologic: Reports paresthesias LUE; Denies headache(s) or weakness Psychiatric Psychiatric: Reports anxiety; Denies depression or suicidal thoughts EXAM Physical Exam Const Vital Signs: 04/03/21 12:14 04/03/21 12:48 Temperature 97.9 F Temperature Source Temporal Pulse Rate 77 Respiratory Rate 14 Respiratory Effort Normal Blood Pressure 140/73 H Blood Pressure Mean 95 Pulse Ox 96 Oxygen Delivery Method Room Air Positive well nourished and well developed General Appearance ED: well developed and NAD HEENT Reports moist mucous membranes Negative for trauma or tenderness Eyes PERRL and EOMs intact bilaterally Neck no lymphadenopathy and supple Neck Narrative: In the area just above and posterior to left clavicle; normal in appearance. General: tenderness Chest Wall inspection of chest normal and palpation of chest normal Chest Narrative: Nontender below clavicle Resp normal respiratory effort and clear to auscultation bilaterally Cardio regular rate, regular rhythm and no murmurs Rate: other Other Details: 2+/4 bilateral radial pulses. Good perfusion left hand. Neuro oriented x3, CN's II-XII intact bilaterally and no sensory deficits noted Sensorium / Orientation: alert Motor Exam: strength 5/5 throughout Psych mental status grossly normal Mood & Affect: anxious Skin no rashes or lesions noted, no wounds and skin turgor normal MDM MDM MDM Narrative Medical decision making narrative: Patient has good perfusion to her extremities and no signs or symptoms of a stroke. She is given analgesics a work note to limit lifting, and since it is Sunday she is advised to call her doctor tomorrow to discuss a referral to the appropriate specialist. She was recently given a prescription for Percocet from here for the same thing. Discharge Plan Triage Chief Complaint: Chest Other ED Provider: Cam Aguirre Dx/Rx/DC Orders Clinical Impression: Acute neck pain, History of thoracic outlet syndrome Instructions: ED Neck Pain Prescriptions: No Action albuterol sulfate 1 INHALER inhaler 2 puff INHALATION Q4H PRN PRN (Reason: Asthma) Qty: 0 RF: 0 fluticasone propionate 110 mcg/actuation HFA aerosol inhaler 1 puff INHALATION BID RF: 0 pantoprazole 20 MG tablet 20 mg PO BID RF: 0 Stand Alone Forms: Work Status Form Primary Care Provider: Yassine Link Referrals: Yassine Link MD [Primary Care Provider] - (Discussed with her follow-up with your doctor regarding outpatient referrals to cardiothoracic specialists) Disposition Disposition: Home, self care
[2021-04-03 13:28] VITALS: RESP 15
[2021-04-03] MEDS: Ondansetron ODT 4 MG Tablet 8 MG PO (13:31)
[2021-04-03] MEDS: oxyCODONE 5 MG Tablet 10 MG PO (13:31)
== END 2021-04-03 13:33 | disposition home or self-care (01) ==
PROVIDERS: Emergency Provider Emergency Medicine; PCP Internal Medicine
DX: M54.2 Cervicalgia (principal); G54.0 Brachial plexus disorders; K21.9 Gastro-esophageal reflux disease without esophagitis; F17.200 Nicotine dependence, unspecified, uncomplicated
CPT/HCPCS: 99283

== ENCOUNTER 2021-04-14 15:35 | Emergency (ER) | payer MEDICAID, SELFPAY ==
[2021-04-14 15:36] VITALS: BP 130/71; PULSE 81; RESP 15; TEMP 36.8; O2SAT 99; BMI 34.3
--- NOTE | 2021-04-14 15:51 | EDS_ITS ---
HPI History of Present Illness Chief Complaint: Upper Extremity Injury Informant: patient Occured/Mechanism Comment: Twisting injury Onset/Context/Timing Onset: Yesterday Context: Gradual Onset Timing: Intermittent Quality of Pain: Sharp Current Severity: Moderate Maximum Severity: Moderate Associated Symptoms Associated Symptoms: Negative for Parasthesia, Weakness and Loss of Funtion Narrative Narrative: The patient is a 35 old female with medical history significant for GERD and thoracic outlet syndrome of the left shoulder presents to the emergency department with left shoulder pain. Patient has chronic left shoulder pain. She was actually scheduled to see orthopedics today, but had to cancel the appointment because she just got back from [place] with her . She states that yesterday, she was lifting a 40 pound jug of water softener. She states she felt something twist and pull in her shoulder. Since then, she had increasing pain. She denies any weakness or numbness. [facility] Medical History Anxiety Depression GERD (gastroesophageal reflux disease) IBS (irritable bowel syndrome) Thoracic outlet syndrome Home Medications albuterol sulfate 2 puff INHALATION Q4H PRN PRN #0 inhaler 05/03/16 [Rx Last Taken 11/17/18] pantoprazole 20 mg PO BID 04/26/20 [History Last Taken Unknown] fluticasone propionate 110 mcg/actuation HFA aerosol inhaler 1 puff INHALATION BID 12/14/20 [History Last Taken Unknown] naproxen 500 mg PO BID #20 tab 04/14/21 [Rx Last Taken Unknown] Allergy/AdvReac Type Severity Reaction Status Date / Time benzonatate Allergy Rash Verified 04/03/21 12:14 [From Tessalon Perles] diazepam [From Valium] Allergy Hives Verified 04/03/21 12:14 morphine Allergy Itching Verified 04/03/21 12:14 Penicillins Allergy Hives Verified 04/03/21 12:14 venom-honey bee Allergy Hives Verified 04/03/21 12:14 [bee venom (honey bee)] Family History Father Heart disease Hypertension Myocardial infarction Mother Cancer lung, throat and Lupus Surgical History History of esophagogastroduodenoscopy (EGD) S/P breast biopsy S/P colonoscopy Status post hysterectomy Social History Smoking Status: Current every day smoker alcohol intake: current alcohol intake frequency: holidays/special occasions only substance use type: marijuana caffeine: Yes what type of physical activity do you participate in: none seatbelt use: sometimes do you feel safe at home: Yes additional social history: Boyfriend-Sha- Works at [employer] Patient works at [employer] ROS ROS ED Constitutional Constitutional ED: Denies chills or fever(s) Eyes Eyes: Denies blurry vision or change in vision ENT ENT ED: Denies ear pain or sore throat Cardiovascular Cardiovascular: Denies chest pain or palpitations Respiratory/Chest Respiratory/Chest: Denies cough, dyspnea or dyspnea on exertion Gastrointestinal Gastrointestinal: Denies abdominal pain, nausea or vomiting Genitourinary Genitourinary ED: Denies dysuria or urinary frequency Musculoskeletal Musculoskeletal: Denies arthralgias or myalgias Integumentary Denies rash Neurologic Neurologic: Denies headache(s) or paresthesias Psychiatric Psychiatric: Denies anxiety or depression Endocrine Endocrinology: Denies polydipsia or polyuria Allergic/Immunologic Allergic/Immunologic ED: Denies urticaria EXAM Physical Exam Const Vital Signs: 04/14/21 15:36 Temperature 98.2 F Temperature Source Temporal Pulse Rate 81 Respiratory Rate 15 Blood Pressure 130/71 H Blood Pressure Mean 90 Pulse Ox 99 Oxygen Delivery Method Room Air Positive well nourished and well developed General Appearance ED: well developed HEENT Reports normocephalic, head/scalp atraumatic and moist mucous membranes Eyes PERRL and EOMs intact bilaterally Neck no lymphadenopathy and supple General: Negative for tenderness Chest Wall inspection of chest normal Resp normal respiratory effort and clear to auscultation bilaterally Cardio regular rate, regular rhythm and no murmurs GI normal to inspection, nondistended, normoactive bowel sounds Palpation: Negative for tender, guarding or rebound tenderness present Back/Spine no CVA tenderness Cervical Spine: Negative for cervical spine tenderness Thoracic Spine / Upper Back: Negative for thoracic spinal tenderness Extremity normal to inspection General Extremety ED: Negative for tenderness Neuro oriented x3 and CN's II-XII intact bilaterally Neuro Narrative: No focal deficits appreciated. Sensorium / Orientation: alert Psych mental status grossly normal Skin no rashes or lesions noted, no wounds and skin turgor normal MDM MDM MDM Narrative Medical decision making narrative: The patient has no obvious deformity. Her pulses are normal. Her strength is diminished secondary to pain. I did obtain plain films. These were reviewed by both myself and the radiologist. There is no evidence of fracture dislocation. I do feel this is an exacerbation of chronic pain. The patient be given anti-inflammatories. She will be discharged home. Impression 1. Left shoulder strain Discharge Plan Triage Chief Complaint: Upper Extremity Injury ED Provider: Jaxson Mcclelland Dx/Rx/DC Orders Instructions: ED Shoulder Sprain Prescriptions: New naproxen 500 MG tablet 500 mg PO BID Qty: 20 RF: 0 No Action albuterol sulfate 1 INHALER inhaler 2 puff INHALATION Q4H PRN PRN (Reason: Asthma) Qty: 0 RF: 0 fluticasone propionate 110 mcg/actuation HFA aerosol inhaler 1 puff INHALATION BID RF: 0 pantoprazole 20 MG tablet 20 mg PO BID RF: 0 Primary Care Provider: Yassine Link Referrals: Yassine Link MD [Primary Care Provider] -
[2021-04-14] MEDS: HYDROcodone Bitartrate/Apap 5/325 Tablet PO (15:52)
--- NOTE | 2021-04-14 16:15 | RAD_ITS ---
STUDY: X-RAY - LEFT SHOULDER REASON FOR EXAM: Female, 35 years old. CHRONIC LEFT SHOULDER PAIN, NUMBNESS, AND TINGLING. HX THORACIC OUTLET SYNDROME. TECHNIQUE: 4 view(s) of the shoulder. COMPARISON: Left shoulder x-ray dated December 14, 2020 FINDINGS: Normal glenohumeral articulation. Normal acromioclavicular joint. Normal acromion. Normal humeral head and visualized proximal humerus. The soft tissue structures are unremarkable. There is no demonstrated fracture. Normal visualized pulmonary apex. RAD/Shoulder min 2 Views IMPRESSION: Normal x-ray examination of the shoulder. Electronically Signed: Jorge Dumont MD at 16:35 EDT , Service support ,
[2021-04-14 16:39] VITALS: BP 122/78; PULSE 87; RESP 15; O2SAT 98
== END 2021-04-14 16:40 | disposition home or self-care (01) ==
PROVIDERS: Emergency Provider Emergency Medicine; PCP Internal Medicine
DX: S46.912A Strain of unspecified muscle, fascia and tendon at shoulder and upper arm level, left arm, initial encounter (principal); X50.1XXA Overexertion from prolonged static or awkward postures, initial encounter; Y93.89 Activity, other specified; Y92.9 Unspecified place or not applicable; Y99.9 Unspecified external cause status; G54.0 Brachial plexus disorders; K21.9 Gastro-esophageal reflux disease without esophagitis; F17.200 Nicotine dependence, unspecified, uncomplicated; Z79.899 Other long term (current) drug therapy
CPT/HCPCS: 73030; 99282

== ENCOUNTER 2021-04-25 12:25 | Emergency (ER) | payer MEDICAID, SELFPAY ==
[2021-04-25 12:25] VITALS: BP 128/80; PULSE 96; RESP 18; TEMP 36.6; O2SAT 99; BMI 34.2
[2021-04-25] MEDS: Ketorolac 15 MG/ML Vial IM (13:17)
[2021-04-25] MEDS: Lidocaine 5% Patch 1 PATCH TOPICAL (13:19)
--- NOTE | 2021-04-25 14:03 | EX.ED.DYSGE1 ---
HPI History of Present Illness Chief Complaint: Other, Pain/Inj Informant: patient Narrative Narrative: 35-year-old female presents with concern for of the left shoulder pain which is chronic for her secondary to thoracic outlet syndrome. States that her pain is worse with movement. Describes it as aching. Denies any significant numbness or tingling. Denies any reinjury or trauma. Denies any chest pain, shortness of breath, nausea vomiting, abdominal pain, fever, chills, cough. Patient is seen in orthopedic surgeon who wishes to perform first rib resection. She is not scheduled for the surgery at this time. [facility] Medical History Anxiety Depression GERD (gastroesophageal reflux disease) IBS (irritable bowel syndrome) Thoracic outlet syndrome Home Medications albuterol sulfate 2 puff INHALATION Q4H PRN PRN #0 inhaler 05/03/16 [Rx Last Taken 11/17/18] pantoprazole 20 mg PO BID 04/26/20 [History Last Taken Unknown] fluticasone propionate 110 mcg/actuation HFA aerosol inhaler 1 puff INHALATION BID 12/14/20 [History Last Taken Unknown] naproxen 500 mg PO BID #20 tab 04/14/21 [Rx Last Taken Unknown] Allergy/AdvReac Type Severity Reaction Status Date / Time benzonatate Allergy Rash Verified 04/25/21 12:27 [From Tessalon Perles] diazepam [From Valium] Allergy Hives Verified 04/25/21 12:27 morphine Allergy Itching Verified 04/25/21 12:27 Penicillins Allergy Hives Verified 04/25/21 12:27 venom-honey bee Allergy Hives Verified 04/25/21 12:27 [bee venom (honey bee)] Family History Father Heart disease Hypertension Myocardial infarction Mother Cancer lung, throat and Lupus Surgical History History of esophagogastroduodenoscopy (EGD) S/P breast biopsy S/P colonoscopy Status post hysterectomy Social History Smoking Status: Current every day smoker tobacco type: cigarettes alcohol intake: current alcohol intake frequency: holidays/special occasions only substance use type: marijuana caffeine: Yes what type of physical activity do you participate in: none seatbelt use: sometimes do you feel safe at home: Yes additional social history: Boyfriend-Sha- Works at [employer] Patient works at [employer] ROS ROS ED Constitutional Constitutional ED: Denies chills, fever(s) or sweats Eyes Eyes: Denies blurry vision, change in vision or diplopia ENT ENT ED: Denies rhinorrhea or sore throat Cardiovascular Cardiovascular: Denies chest pain, orthopnea, palpitations or racing heartbeat Respiratory/Chest Respiratory/Chest: Denies cough, dyspnea, dyspnea on exertion, orthopnea or sputum Gastrointestinal Gastrointestinal: Denies abdominal pain, constipation, diarrhea, melena, nausea or vomiting Genitourinary Genitourinary ED: Denies dysuria, hematuria or urinary frequency Musculoskeletal Musculoskeletal: Reports arthralgias and neck pain; Denies myalgias Integumentary Denies rash Neurologic Neurologic: Denies headache(s), paresthesias or weakness Psychiatric Psychiatric: Denies anxiety or depression Hematologic/Lymphatic Hematologic/Lymphatic: Denies easy bleeding or easy bruising Allergic/Immunologic Allergic/Immunologic ED: Denies mouth swelling or tongue swelling EXAM Physical Exam Const Vital Signs: 04/25/21 12:25 04/25/21 12:44 Temperature 97.9 F Temperature Source Temporal Pulse Rate 96 Respiratory Rate 18 Respiratory Effort Normal Non-Labored Respiratory Pattern Normal Blood Pressure 128/80 H Blood Pressure Mean 96 Pulse Ox 99 Oxygen Delivery Method Room Air Positive well nourished and well developed General Appearance ED: well developed HEENT Reports TM's clear and moist mucous membranes normocephalic and atraumatic Tympanic Membrane ED: Yes TM's clear Eyes PERRL and EOMs intact bilaterally Neck no lymphadenopathy, supple and no JVD Chest Wall inspection of chest normal Resp normal respiratory effort and clear to auscultation bilaterally Cardio regular rate, S1 normal heart sound, S2 normal heart sound and no murmurs Peripheral Pulses: pulses 2+ throughout GI soft to palpation, non-tender and non-distended Back/Spine no CVA tenderness and no thoracic nor lumbar tenderness Extremity normal to inspection Extremity Narrative: TTP in the left anterior trapezius. No overlying skin changes. General Extremety ED: Negative for edema General Extremity: Negative for edema Neuro oriented x3, CN's II-XII intact bilaterally and no sensory deficits noted Sensorium / Orientation: alert Motor Exam: strength 5/5 throughout Psych mental status grossly normal Skin no rashes or lesions noted MDM MDM MDM Narrative Medical decision making narrative: Patient appears well nontoxic. Vital signs within normal limits. Patient initially given Toradol and Lidoderm patch. Patient continued to have pain and was given Kenalog, Tylenol, Flexeril. On reevaluation at 1430 patient feeling much improved and be discharged home to follow-up with orthopedic surgeon. Stable at time of discharge. Discharge Plan Triage Chief Complaint: Other, Pain/Inj ED Provider: Angel Wheat Dx/Rx/DC Orders Clinical Impression: History of thoracic outlet syndrome Instructions: ED Chronic Pain Prescriptions: No Action albuterol sulfate 1 INHALER inhaler 2 puff INHALATION Q4H PRN PRN (Reason: Asthma) Qty: 0 RF: 0 fluticasone propionate 110 mcg/actuation HFA aerosol inhaler 1 puff INHALATION BID RF: 0 pantoprazole 20 MG tablet 20 mg PO BID RF: 0 naproxen 500 MG tablet 500 mg PO BID Qty: 20 RF: 0 Primary Care Provider: Yassine Link Referrals: Yassine Link MD [Primary Care Provider] - 2 Days Disposition Disposition: Home, self care
[2021-04-25] MEDS: cycloBENZAPRine HCl 10 MG Tablet PO (14:19)
[2021-04-25] MEDS: Acetaminophen 500 MG Tablet 1000 MG PO (14:19)
[2021-04-25] MEDS: Triamcinolone Acetonide 40 MG/ML Vial IM (14:20)
[2021-04-25 14:56] VITALS: BP 130/78; PULSE 78; RESP 16; O2SAT 98
== END 2021-04-25 14:57 | disposition home or self-care (01) ==
PROVIDERS: Emergency Provider Emergency Medicine; PCP Internal Medicine
DX: G54.0 Brachial plexus disorders (principal); F17.210 Nicotine dependence, cigarettes, uncomplicated
CPT/HCPCS: 96372; 99283

== ENCOUNTER 2021-05-10 10:06 | Emergency (ER) | payer MEDICAID, SELFPAY ==
[2021-05-10 10:07] VITALS: BP 129/85; PULSE 92; RESP 16; TEMP 36.7; O2SAT 100; BMI 30.7
--- NOTE | 2021-05-10 10:56 | EDS_ITS ---
HPI History of Present Illness Chief Complaint: Upper Extremity Injury Narrative Narrative: Patient presents with chronic acute recurrent left shoulder pain related to diagnosis of thoracic outlet obstruction she has had this extensively worked up including CT scans and subspecialty consultation [facility] she is scheduled to see a surgeon soon to have some ribs removed to relieve the discomfort, she indicates she was told to take [id number] meds which are not helping she has no physician is currently managing her condition locally so she came to the emergency department there is nothing new or different just the persistence of the pain [facility] Medical History Anxiety Depression GERD (gastroesophageal reflux disease) IBS (irritable bowel syndrome) Thoracic outlet syndrome Home Medications albuterol sulfate 2 puff INHALATION Q4H PRN PRN #0 inhaler 05/03/16 [Rx Last Taken 11/17/18] pantoprazole 20 mg PO BID 04/26/20 [History Last Taken Unknown] fluticasone propionate 110 mcg/actuation HFA aerosol inhaler 1 puff INHALATION BID 12/14/20 [History Last Taken Unknown] naproxen 500 mg PO BID #20 tab 04/14/21 [Rx Last Taken Unknown] Allergy/AdvReac Type Severity Reaction Status Date / Time benzonatate Allergy Rash Verified 05/10/21 10:10 [From Tessalon Perles] diazepam [From Valium] Allergy Hives Verified 05/10/21 10:10 morphine Allergy Itching Verified 05/10/21 10:10 Penicillins Allergy Hives Verified 05/10/21 10:10 venom-honey bee Allergy Hives Verified 05/10/21 10:10 [bee venom (honey bee)] Family History Father Heart disease Hypertension Myocardial infarction Mother Cancer lung, throat and Lupus Surgical History History of esophagogastroduodenoscopy (EGD) S/P breast biopsy S/P colonoscopy Status post hysterectomy Social History Smoking Status: Current every day smoker tobacco type: cigarettes alcohol intake: current alcohol intake frequency: holidays/special occasions only substance use type: marijuana caffeine: Yes what type of physical activity do you participate in: none seatbelt use: sometimes do you feel safe at home: Yes additional social history: Boyfriend-Sha- Works at [email or web address] Patient works at [employer] ROS ROS ED ROS Narrative Left shoulder pain Constitutional Constitutional ED: Reports subjective, sweats and other; Denies chills, fever(s) or weight loss Eyes Eyes: Denies blurry vision or change in vision ENT ENT ED: Denies ear pain Cardiovascular Cardiovascular: Denies chest pain or palpitations Respiratory/Chest Respiratory/Chest: Denies dyspnea Gastrointestinal Gastrointestinal: Denies abdominal pain, nausea or vomiting Genitourinary Genitourinary ED: Denies dysuria or hematuria Musculoskeletal Musculoskeletal: Denies arthralgias or myalgias Integumentary Reports rash; Denies abscess Neurologic Neurologic: Denies weakness Psychiatric Psychiatric: Denies anxiety or depression Endocrine Endocrinology: Denies polydipsia or polyuria Allergic/Immunologic Allergic/Immunologic ED: Denies urticaria EXAM Physical Exam Const Vital Signs: 05/10/21 10:07 Temperature 98.0 F Temperature Source Temporal Pulse Rate 92 Respiratory Rate 16 Blood Pressure 129/85 H Blood Pressure Mean 99 Pulse Ox 100 Oxygen Delivery Method Room Air MDM MDM MDM Narrative Medical decision making narrative: I had a long conversation she is not interested in any type of ED evaluation as she has had this extensive outpatient evaluation I explained at this time the emergency department by regulator rules cannot intervene with her pain management, she will be given Toradol here 1 [place] and she will follow-up with her outpatient providers for further pain management and to continue her therapy she is comfortable with this plan, please note her upper extremity exam neurovascular function is normal Home stable Final impression acute recurrent left shoulder pain reportedly related to a thoracic outlet syndrome Discharge Plan Triage Chief Complaint: Upper Extremity Injury ED Provider: Amarilys Eastman Dx/Rx/DC Orders Prescriptions: No Action albuterol sulfate 1 INHALER inhaler 2 puff INHALATION Q4H PRN PRN (Reason: Asthma) Qty: 0 RF: 0 fluticasone propionate 110 mcg/actuation HFA aerosol inhaler 1 puff INHALATION BID RF: 0 pantoprazole 20 MG tablet 20 mg PO BID RF: 0 naproxen 500 MG tablet 500 mg PO BID Qty: 20 RF: 0 Primary Care Provider: Yassine Link
[2021-05-10] MEDS: oxyCODONE 5 MG Tablet PO (11:26)
[2021-05-10] MEDS: Ketorolac 60 MG/2 ML Vial IM (11:26)
[2021-05-10] MEDS: Ondansetron ODT 4 MG Tablet 8 MG PO (11:26)
[2021-05-10 11:49] VITALS: PULSE 78; RESP 6; O2SAT 99
== END 2021-05-10 11:50 | disposition home or self-care (01) ==
LOC: ED 11:07
PROVIDERS: Emergency Provider Emergency Medicine; PCP Internal Medicine
DX: M25.512 Pain in left shoulder (principal); F17.210 Nicotine dependence, cigarettes, uncomplicated; K21.9 Gastro-esophageal reflux disease without esophagitis; Z79.899 Other long term (current) drug therapy
CPT/HCPCS: 96372; 99283

== ENCOUNTER 2021-05-16 12:16 | Emergency (ER) | payer MEDICAID, SELFPAY ==
[2021-05-16 12:17] VITALS: BP 117/72; PULSE 73; RESP 18; TEMP 36.4; O2SAT 100; BMI 33.7
--- NOTE | 2021-05-16 12:21 | RAD_ITS ---
STUDY: X-RAY - LEFT FOOT CLINICAL: Female, 35 years old. Pain after trauma TECHNIQUE: 3 view(s) of the foot. COMPARISON: None. FINDINGS: Normal talus, calcaneus, and tarsal bones. Normal visualized subtalar, talonavicular, calcaneocuboid, tarsal and tarsometatarsal articulations. Normal metatarsi. Normal metatarsophalangeal joint of the great toe. Normal tibial and fibular sesamoid bones. Normal interphalangeal joint of the great toe. Normal phalanges of the great toe. Normal second through fifth metatarsophalangeal joints. Normal interphalangeal joints and phalanges of the lesser toes. The soft tissue structures are unremarkable. RAD/Foot min 3 Views IMPRESSION: Normal x-ray examination of the foot. Electronically Signed: Andrade Curran MD at 12:54 EDT , Service support ,
--- NOTE | 2021-05-16 12:28 | RAD_ITS ---
STUDY: X-RAY - LEFT ANKLE REASON FOR EXAM: Female, 35 years old. Pain after trauma TECHNIQUE: 3 view(s) of the ankle. COMPARISON: None. FINDINGS: Normal visualized distal tibia and fibula. Normal medial and lateral malleoli. Normal tibiotalar articulation and ankle mortise. Normal visualized talus and calcaneus. The visualized subtalar, talonavicular, calcaneocuboid and tarsal articulations are normal. The soft tissue structures are unremarkable. RAD/Ankle min 3 Views IMPRESSION: Normal x-ray examination of the ankle. Electronically Signed: Andrade Curran MD at 12:53 EDT , Service support ,
--- NOTE | 2021-05-16 13:34 | EDS_ITS ---
HPI History of Present Illness Chief Complaint: Lower Extremity Injury Informant: patient Narrative Narrative: 35-year-old female states that about 4 days ago she stubbed her left little toe on her bed frame. She went to work and was down on her hands and knees and went to stand up bending at the MTP joint. She felt a pop with radiation up to her ankle. She has had some bruising swelling and pain since. She notes that those symptoms are along the fifth MTP joint to the fifth digit. PFSH PFSH Medical History Anxiety Depression GERD (gastroesophageal reflux disease) IBS (irritable bowel syndrome) Thoracic outlet syndrome Home Medications albuterol sulfate 2 puff INHALATION Q4H PRN PRN #0 inhaler 05/03/16 [Rx Last Taken 11/17/18] pantoprazole 20 mg PO BID 04/26/20 [History Last Taken Unknown] fluticasone propionate 110 mcg/actuation HFA aerosol inhaler 1 puff INHALATION BID 12/14/20 [History Last Taken Unknown] naproxen 500 mg PO BID #20 tab 04/14/21 [Rx Last Taken Unknown] hydrocodone-acetaminophen 1 tab PO Q6H PRN PRN 3 Days #10 tablet 05/16/21 [Rx Last Taken Unknown] Allergy/AdvReac Type Severity Reaction Status Date / Time benzonatate Allergy Rash Verified 05/16/21 12:18 [From Tessalon Perles] diazepam [From Valium] Allergy Hives Verified 05/16/21 12:18 morphine Allergy Itching Verified 05/16/21 12:18 Penicillins Allergy Hives Verified 05/16/21 12:18 venom-honey bee Allergy Hives Verified 05/16/21 12:18 [bee venom (honey bee)] Family History Father Heart disease Hypertension Myocardial infarction Mother Cancer lung, throat and Lupus Surgical History History of esophagogastroduodenoscopy (EGD) S/P breast biopsy S/P colonoscopy Status post hysterectomy Social History Smoking Status: Current every day smoker tobacco type: cigarettes alcohol intake: current alcohol intake frequency: holidays/special occasions only substance use type: marijuana caffeine: Yes what type of physical activity do you participate in: none seatbelt use: sometimes do you feel safe at home: Yes additional social history: Boyfriend-Sha- Works at [employer] Patient works at [employer] ROS ROS ED Constitutional Constitutional ED: Denies chills or weight loss Eyes Eyes: Denies change in vision or diplopia ENT ENT ED: Denies ear pain, rhinorrhea or sore throat Cardiovascular Cardiovascular: Denies chest pain, orthopnea, palpitations or racing heartbeat Respiratory/Chest Respiratory/Chest: Denies cough, dyspnea or orthopnea Gastrointestinal Gastrointestinal: Denies abdominal pain, diarrhea, nausea or vomiting Genitourinary Genitourinary ED: Denies dysuria, hematuria or urinary frequency Musculoskeletal Musculoskeletal: Reports other Details: See history of present illness ; Denies arthralgias or myalgias Integumentary Denies abscess or rash Neurologic Neurologic: Denies headache(s) or weakness Psychiatric Psychiatric: Denies anxiety, depression, suicidal ideation or suicidal thoughts Endocrine Endocrinology: Denies polydipsia, polyphagia or polyuria Allergic/Immunologic Allergic/Immunologic ED: Denies mouth swelling, tongue swelling or urticaria EXAM Physical Exam Const Vital Signs: 05/16/21 12:17 Temperature 97.5 F L Temperature Source Temporal Pulse Rate 73 Respiratory Rate 18 Blood Pressure 117/72 Blood Pressure Mean 87 Pulse Ox 100 Oxygen Delivery Method Room Air Positive well nourished and well developed General Appearance ED: well developed HEENT Reports normocephalic, head/scalp atraumatic and moist mucous membranes Eyes PERRL and EOMs intact bilaterally Neck no lymphadenopathy, supple and no JVD Resp normal respiratory effort and clear to auscultation bilaterally Cardio regular rate, regular rhythm and no murmurs GI normal to inspection, nondistended, normoactive bowel sounds and non-tender Palpation: soft Back/Spine no CVA tenderness and normal ROM Extremity Extremity Narrative: There is some mild swelling and ecchymosis over the fifth MTP joint. Tender to palpation. Painful range of motion General Extremety ED: Negative for edema General Extremity: Negative for edema Neuro oriented x3 and CN's II-XII intact bilaterally Sensorium / Orientation: alert Motor Exam: strength 5/5 throughout Psych mental status grossly normal Mood & Affect: Negative for depressed or tearful Skin no rashes or lesions noted and no wounds MDM MDM MDM Narrative Medical decision making narrative: My interpretation of the plain films of the left foot and ankle which were obtained through nursing protocol is no acute fracture. Patient was placed in a postop shoe. I can write for pain medication. Follow-up with primary care in 10 to 14 days if not improved Radiography Diagnostic Testing: Radiology Impression Foot X-Ray 05/16/21 12:21 IMPRESSION: Normal x-ray examination of the foot. Electronically Signed: Andrade Curran MD at 12:54 EDT , Service support , Ankle X-Ray 05/16/21 12:28 IMPRESSION: Normal x-ray examination of the ankle. Electronically Signed: Andrade Curran MD at 12:53 EDT , Service support , Discharge Plan Triage Chief Complaint: Lower Extremity Injury ED Provider: Bartolo Giles Dx/Rx/DC Orders Clinical Impression: Sprain of foot, left Instructions: ED Foot Sprain Prescriptions: New hydrocodone-acetaminophen [hydrocodone-acetaminophen] 1 TABLET tablet 1 tab PO Q6H PRN PRN (Reason: Pain) 3 Days Qty: 10 RF: 0 No Action albuterol sulfate 1 INHALER inhaler 2 puff INHALATION Q4H PRN PRN (Reason: Asthma) Qty: 0 RF: 0 fluticasone propionate 110 mcg/actuation HFA aerosol inhaler 1 puff INHALATION BID RF: 0 pantoprazole 20 MG tablet 20 mg PO BID RF: 0 naproxen 500 MG tablet 500 mg PO BID Qty: 20 RF: 0 Primary Care Provider: Yassine Link Referrals: Yassine Link MD [Primary Care Provider] - 10-14 Days if not better Disposition Disposition: Home, self care
[2021-05-16 14:13] VITALS: RESP 16
== END 2021-05-16 14:15 | disposition home or self-care (01) ==
LOC: ED 13:52
PROVIDERS: Emergency Provider Emergency Medicine; PCP Internal Medicine
DX: S93.602A Unspecified sprain of left foot, initial encounter (principal); F17.210 Nicotine dependence, cigarettes, uncomplicated; X58.XXXA Exposure to other specified factors, initial encounter; W22.03XA Walked into furniture, initial encounter
CPT/HCPCS: 73610; 73630; 99283

== ENCOUNTER 2021-06-07 10:28 | Emergency (ER) | payer MEDICAID, SELFPAY ==
[2021-06-07 10:29] VITALS: BP 146/79; PULSE 88; RESP 16; TEMP 36.3; O2SAT 99; BMI 34.2
--- NOTE | 2021-06-07 11:10 | EDS_ITS ---
HPI History of Present Illness Chief Complaint: Upper Extremity Injury Informant: patient Onset/Context/Timing Onset: Month(s) Current Severity: Severe Maximum Severity: Severe Worsened by: movement LUE Relieved by: nothing, but pain meds help some Associated Symptoms Associated Symptoms: Negative for Parasthesia, Weakness and Loss of Funtion Narrative Narrative: Patient has had pain for years in her left neck and shoulder, eventually had it evaluated and diagnosed with thoracic outlet syndrome, her doctor was treating her pain for several months and now has referred her to a specialist at [facility] who is planning on bringing her back for a nerve block, I suspect a scaling, and if it helps she will be scheduled for surgery to correct this, but she does not have the block scheduled yet and she is in a lot of pain. She has been referred to pain management who she has not seen yet either. She has been to the emergency department several times for this problem. She states she has no new symptoms or injury. [facility] Medical History Anxiety Depression GERD (gastroesophageal reflux disease) IBS (irritable bowel syndrome) Thoracic outlet syndrome Home Medications albuterol sulfate 2 puff INHALATION Q4H PRN PRN #0 inhaler 05/03/16 [Rx Last Taken 11/17/18] pantoprazole 20 mg PO BID 04/26/20 [History Last Taken Unknown] fluticasone propionate 110 mcg/actuation HFA aerosol inhaler 1 puff INHALATION BID 12/14/20 [History Last Taken Unknown] naproxen 500 mg PO BID #20 tab 04/14/21 [Rx Last Taken Unknown] hydrocodone-acetaminophen 1 tab PO Q6H PRN PRN 3 Days #10 tablet 05/16/21 [Rx Last Taken Unknown] Allergy/AdvReac Type Severity Reaction Status Date / Time benzonatate Allergy Rash Verified 06/07/21 10:29 [From Tessalon Perles] diazepam [From Valium] Allergy Hives Verified 06/07/21 10:29 morphine Allergy Itching Verified 06/07/21 10:29 Penicillins Allergy Hives Verified 06/07/21 10:29 venom-honey bee Allergy Hives Verified 06/07/21 10:29 [bee venom (honey bee)] Family History Father Heart disease Hypertension Myocardial infarction Mother Cancer lung, throat and Lupus Surgical History History of esophagogastroduodenoscopy (EGD) S/P breast biopsy S/P colonoscopy Status post hysterectomy Social History Smoking Status: Current every day smoker tobacco type: cigarettes alcohol intake: current alcohol intake frequency: holidays/special occasions only substance use type: marijuana caffeine: Yes what type of physical activity do you participate in: none seatbelt use: sometimes do you feel safe at home: Yes additional social history: Boyfriend-Sha- Works at [employer] Patient works at [employer] ED Constitutional Constitutional ED: Denies chills or fever(s) Musculoskeletal Musculoskeletal: Reports extremity pain; Denies neck pain Integumentary Denies Abrasions, rash or wounds Neurologic Neurologic: Denies paresthesias or weakness EXAM Physical Exam Const Vital Signs: 06/07/21 10:29 Temperature 97.3 F L Temperature Source Temporal Pulse Rate 88 Respiratory Rate 16 Blood Pressure 146/79 H Blood Pressure Mean 101 Pulse Ox 99 Oxygen Delivery Method Room Air Positive well nourished and well developed Constitutional Narrative: Speaking in full sentences in no acute distress, holding her left upper extremity position of comfort. General Appearance ED: well developed and NAD Neck full ROM and supple Neck Narrative: Tender in the trapezius area and just behind the left clavicle. Back/Spine normal ROM and normal to inspection Extremity Extremity Narrative: Patient holding left upper extremity position of comfort. 2+/4 radial pulse. No deformities. No bony tenderness. Neuro oriented x3, no focal motor deficits and no sensory deficits noted Sensorium / Orientation: alert Psych mental status grossly normal and thought process normal Skin no wounds Rashes: no rashes MDM MDM MDM Narrative Medical decision making narrative: Reviewed the patient OARRS report. She has had 4 narcotic prescriptions in the last 2 months, 2 from her PCP and 2 from here in the emergency department. She understand that she can receive no more from the emergency department for this problem now. Offered her a couple of doses of analgesics here, she was amenable to that and will follow up. Discharge Plan Triage Chief Complaint: Upper Extremity Injury ED Provider: Cam Aguirre Dx/Rx/DC Orders Clinical Impression: Chronic left shoulder pain, History of thoracic outlet syndrome Instructions: ED Pain Management: Chronic Prescriptions: No Action albuterol sulfate 1 INHALER inhaler 2 puff INHALATION Q4H PRN PRN (Reason: Asthma) Qty: 0 RF: 0 fluticasone propionate 110 mcg/actuation HFA aerosol inhaler 1 puff INHALATION BID RF: 0 pantoprazole 20 MG tablet 20 mg PO BID RF: 0 naproxen 500 MG tablet 500 mg PO BID Qty: 20 RF: 0 hydrocodone-acetaminophen [hydrocodone-acetaminophen] 1 TABLET tablet 1 tab PO Q6H PRN PRN (Reason: Pain) 3 Days Qty: 10 RF: 0 Primary Care Provider: Yassine Link Referrals: Yassine Link MD [Primary Care Provider] - (And/or your [facility] specialist) Disposition Disposition: Home, Self Care
[2021-06-07] MEDS: oxyCODONE 5 MG Tablet 10 MG PO (12:44)
== END 2021-06-07 12:46 | disposition home or self-care (01) ==
PROVIDERS: Emergency Provider Emergency Medicine; PCP Internal Medicine
DX: M25.512 Pain in left shoulder (principal); G89.29 Other chronic pain; F17.210 Nicotine dependence, cigarettes, uncomplicated; K21.9 Gastro-esophageal reflux disease without esophagitis; Z79.899 Other long term (current) drug therapy
CPT/HCPCS: 99283

== ENCOUNTER 2021-07-06 10:13 | Emergency (ER) | payer MEDICAID, SELFPAY ==
[2021-07-06 10:13] VITALS: BP 115/76; PULSE 84; RESP 18; TEMP 36.6; O2SAT 100; BMI 34.3
--- NOTE | 2021-07-06 10:36 | EX.ED.UPPERE ---
HPI History of Present Illness Chief Complaint: Upper Extremity Injury Informant: patient Narrative Narrative: 35-year-old female states that she was diagnosed with thoracic outlet syndrome with the [facility]. She was referred to pain management clinic for injections. She states she saw them the beginning of the month. She reports that they were supposed to have contacted her to schedule the blocks but it has been almost 2 weeks and they have not contacted her. She has not contacted them. She states that they are prescribing nothing for pain. She states that she has not asked them why she is not getting anything for pain. She reports that she has not slept last night because of her pain. She was unable to get into her primary care doctor's office. She has been in the emergency room several times for this already in the past couple months. She was informed at her last visit that we would not be prescribing medications on an outpatient basis for chronic conditions. [facility] Medical History Anxiety Depression GERD (gastroesophageal reflux disease) IBS (irritable bowel syndrome) Thoracic outlet syndrome Home Medications albuterol sulfate 2 puff INHALATION Q4H PRN PRN #0 inhaler 05/03/16 [Rx Last Taken 11/17/18] pantoprazole 20 mg PO BID 04/26/20 [History Last Taken Unknown] fluticasone propionate 110 mcg/actuation HFA aerosol inhaler 1 puff INHALATION BID 12/14/20 [History Last Taken Unknown] naproxen 500 mg PO BID #20 tab 04/14/21 [Rx Last Taken Unknown] hydrocodone-acetaminophen 1 tab PO Q6H PRN PRN 3 Days #10 tablet 05/16/21 [Rx Last Taken Unknown] Allergy/AdvReac Type Severity Reaction Status Date / Time benzonatate Allergy Rash Verified 07/06/21 10:13 [From Tessalon Perles] diazepam [From Valium] Allergy Hives Verified 07/06/21 10:13 morphine Allergy Itching Verified 07/06/21 10:13 Penicillins Allergy Hives Verified 07/06/21 10:13 venom-honey bee Allergy Hives Verified 07/06/21 10:13 [bee venom (honey bee)] Family History Father Heart disease Hypertension Myocardial infarction Mother Cancer lung, throat and Lupus Surgical History History of esophagogastroduodenoscopy (EGD) S/P breast biopsy S/P colonoscopy Status post hysterectomy Social History Smoking Status: Current every day smoker tobacco type: cigarettes alcohol intake: current alcohol intake frequency: holidays/special occasions only substance use type: marijuana caffeine: Yes what type of physical activity do you participate in: none seatbelt use: sometimes do you feel safe at home: Yes additional social history: Boyfriend-Sha- Works at [employer] Patient works at [employer] [employer] [employer] ED Constitutional Constitutional ED: Denies chills or weight loss Eyes Eyes: Denies change in vision or diplopia ENT ENT ED: Denies ear pain, rhinorrhea or sore throat Cardiovascular Cardiovascular: Reports chest pain; Denies orthopnea, palpitations or racing heartbeat Respiratory/Chest Respiratory/Chest: Denies cough, dyspnea or orthopnea Gastrointestinal Gastrointestinal: Denies abdominal pain, diarrhea, nausea or vomiting Genitourinary Genitourinary ED: Denies dysuria, hematuria or urinary frequency Musculoskeletal Musculoskeletal: Reports back pain and neck pain; Denies arthralgias or myalgias Integumentary Denies abscess or rash Neurologic Neurologic: Denies headache(s) or weakness Psychiatric Psychiatric: Denies anxiety, depression, suicidal ideation or suicidal thoughts Endocrine Endocrinology: Denies polydipsia, polyphagia or polyuria Allergic/Immunologic Allergic/Immunologic ED: Denies mouth swelling, tongue swelling or urticaria EXAM Physical Exam Const Vital Signs: 07/06/21 10:13 Temperature 97.9 F Temperature Source Temporal Pulse Rate 84 Respiratory Rate 18 Blood Pressure 115/76 Blood Pressure Mean 89 Pulse Ox 100 Oxygen Delivery Method Room Air Positive well nourished and well developed General Appearance ED: well developed HEENT Reports normocephalic, head/scalp atraumatic and moist mucous membranes Eyes PERRL and EOMs intact bilaterally Neck no lymphadenopathy, supple and no JVD Resp normal respiratory effort and clear to auscultation bilaterally Cardio regular rate, regular rhythm and no murmurs GI normal to inspection, nondistended, normoactive bowel sounds and non-tender Palpation: soft Back/Spine no CVA tenderness and normal ROM Back/Spine Narrative: Tender to palpation of the upper back neck and anterior chest Extremity normal to inspection General Extremety ED: Negative for edema General Extremity: Negative for edema Neuro oriented x3 and CN's II-XII intact bilaterally Sensorium / Orientation: alert Motor Exam: strength 5/5 throughout Psych mental status grossly normal Mood & Affect: Negative for depressed or tearful Skin no rashes or lesions noted and no wounds MDM MDM MDM Narrative Medical decision making narrative: Patient received a dose of Toradol and 2 [place] here. I do not believe the emergency department should be providing prescription pain medication for chronic illnesses. Patient will be discharged. Discharge Plan Triage Chief Complaint: Upper Extremity Injury ED Provider: Bartolo Giles Dx/Rx/DC Orders Clinical Impression: Chronic pain, Thoracic outlet syndrome Instructions: Thoracic Outlet Syndrome, ED Chronic Pain Prescriptions: No Action albuterol sulfate 1 INHALER inhaler 2 puff INHALATION Q4H PRN PRN (Reason: Asthma) Qty: 0 RF: 0 fluticasone propionate 110 mcg/actuation HFA aerosol inhaler 1 puff INHALATION BID RF: 0 pantoprazole 20 MG tablet 20 mg PO BID RF: 0 naproxen 500 MG tablet 500 mg PO BID Qty: 20 RF: 0 hydrocodone-acetaminophen [hydrocodone-acetaminophen] 1 TABLET tablet 1 tab PO Q6H PRN PRN (Reason: Pain) 3 Days Qty: 10 RF: 0 Primary Care Provider: Yassine Link Referrals: Yassine Link MD [Primary Care Provider] - As soon as possible Activity Restrictions/Additional Instructions: I would strongly urge you to call your pain management clinic. the emergency department cannot provide pain prescriptions for chronic conditions per recommendations from State medical Board. Disposition Disposition: Home, Self Care
[2021-07-06] MEDS: Ketorolac 60 MG/2 ML Vial IM (10:54)
[2021-07-06] MEDS: HYDROcodone Bitartrate/Apap 5/325 Tablet PO (10:54)
[2021-07-06 11:06] VITALS: PULSE 88; RESP 16; O2SAT 100
== END 2021-07-06 11:12 | disposition home or self-care (01) ==
LOC: ED 11:07
PROVIDERS: Emergency Provider Emergency Medicine; PCP Internal Medicine
DX: G54.0 Brachial plexus disorders (principal); G89.29 Other chronic pain; F17.210 Nicotine dependence, cigarettes, uncomplicated
CPT/HCPCS: 96372; 99283

== ENCOUNTER 2021-08-01 12:32 | Emergency (ER) | payer MEDICAID, SELFPAY ==
[2021-08-01 12:46] VITALS: BP 117/82; PULSE 79; RESP 16; TEMP 37; O2SAT 100; BMI 33.2
[2021-08-01 13:37] LABS: Absolute Lymphocyte Count 3.74 X10^3/uL (0.83-4.51); Absolute Neutrophil Count 4.7 X10^3/uL (2.0-7.7); Basophil# 0.05 X10^3/uL; Basophil% 0.5 % (0-1); Eosinophil# 0.21 X10^3/uL; Eosinophils% 2.3 % (0-5); Hematocrit 47.1 % (37-47); Lymphocyte # 3.74 X10^3/ul (0.83-4.51); Lymphocyte % 40.1 % (19-41); Mean Corpuscular Hgb 32.8 pg (27.0-32.0); Mean Corpuscular Volume 96.5 fL (81-99); Mean Platelet Vol. 11.4 fl (6.2-12.0); Monocyte# 0.65 X10^3/uL; NRBC Flagged by Analyzer 0 % (0-5); Neutrophil # 4.66 X10^3/uL (2.7-7.7); Neutrophil % 49.9 % (47-70); Platelet Count 162 K/mm3 (150-450); RBC Distribution Width CV 12.2 % (11.6-14.6); RBC Distribution Width SD 43.6 fl (35.1-43.9); Red Blood Count 4.88 M/mm3 (4.2-5.4); White Blood Count 9.3 K/mm3 (4.4-11.0)
[2021-08-01 13:43] LABS: Internal QC Validated? YES +Cl - CLEAR BKGD; Pregnancy, Serum, hCG Quali. NEGATIVE Negative
[2021-08-01 13:49] LABS: Anion Gap 3 (5-15); BUN 8 mg/dL (7-18); BUN/Creat Ratio 14.6 RATIO (10-20); Calcium,Total 8.7 mg/dL (8.5-10.1); Chloride 110 mmol/L (98-107); Creatinine, Serum 0.55 mg/dL (0.55-1.02); EST Glomerular Filtration Rate 133 mL/min (>60); Est Glom Filt Rate - Afr Amer 161 mL/min (>60); Estimated Creatinine Clearance 101.57 ml/min; Glucose 82 mg/dL (74-106); Potassium 5.2 mmol/L (3.5-5.1); Sodium Level 136 mmol/L (136-145)
--- NOTE | 2021-08-01 14:21 | CT_ITS ---
STUDY: CT ABDOMEN AND PELVIS WITHOUT CONTRAST REASON FOR EXAM: Female, 35 years old. Flank pain RADIATION DOSAGE (If Supplied By Facility): CTDIvol = ( 8.91 ) mGy, DLP = ( 405.26 ) mGycm TECHNIQUE: Transaxial images were obtained from the dome of the diaphragm to the symphysis pubis without oral contrast, and without intravenous contrast. Sagittal and coronal images were reconstructed. Individualized dose optimization techniques were used for this CT. COMPARISON: 10 May 2019 FINDINGS: The visualized lung bases are unremarkable. The visualized portions of the heart are within normal limits. Normal liver. Normal gallbladder and extrahepatic biliary system. Normal spleen. Normal pancreas. Normal bilateral adrenal glands. Normal right kidney. Normal left kidney. Normal visualized stomach. Normal small intestine. Normal colon. The appendix is visualized and appears normal. Normal abdominal aorta. Normal inferior vena cava. Normal retroperitoneum. Normal urinary bladder. Normal abdominal wall. Normal osseous structures. CT/Abdomen/Pelvis without Cont IMPRESSION: Normal unenhanced CT of the abdomen and pelvis. Electronically Signed: Yomaira Damon MD at 15:44 EDT Tel , Service support ,
--- NOTE | 2021-08-01 14:22 | ED.VIS.GI ---
HPI HPI - GI History of Present Illness Chief Complaint: Abd Pain Informant: patient Narrative Narrative: 3-day history nontraumatic right flank right upper quadrant abdominal pain. Denies nausea or vomiting. Denies urinary symptoms. Denies history of similar. History of partial hysterectomy. Denies fevers chills or sweats. Denies rash. Allergy morphine causing hives. Denies history of kidney stones. Patient able to eat without any worsening symptoms. Prior similar symptoms: No PFSH PFSH Medical History Anxiety Depression GERD (gastroesophageal reflux disease) IBS (irritable bowel syndrome) Thoracic outlet syndrome Home Medications albuterol sulfate 2 puff INHALATION Q4H PRN PRN #0 inhaler 05/03/16 [Rx Last Taken 11/17/18] pantoprazole 20 mg PO BID 04/26/20 [History Last Taken Unknown] fluticasone propionate 110 mcg/actuation HFA aerosol inhaler 1 puff INHALATION BID 12/14/20 [History Last Taken Unknown] naproxen 500 mg PO BID #20 tab 04/14/21 [Rx Last Taken Unknown] hydrocodone-acetaminophen 1 tab PO Q6H PRN PRN 3 Days #10 tablet 05/16/21 [Rx Last Taken Unknown] oxycodone-acetaminophen [Percocet] 1 tab PO Q6H PRN 3 Days #12 tab 08/01/21 [Rx Last Taken Unknown] Allergy/AdvReac Type Severity Reaction Status Date / Time benzonatate Allergy Rash Verified 08/01/21 12:47 [From Tessalon Perles] diazepam [From Valium] Allergy Hives Verified 08/01/21 12:47 morphine Allergy Itching Verified 08/01/21 12:47 Penicillins Allergy Hives Verified 08/01/21 12:47 venom-honey bee Allergy Hives Verified 08/01/21 12:47 [bee venom (honey bee)] Family History Father Heart disease Hypertension Myocardial infarction Mother Cancer lung, throat and Lupus Surgical History History of esophagogastroduodenoscopy (EGD) S/P breast biopsy S/P colonoscopy Status post hysterectomy Social History Smoking Status: Current every day smoker tobacco type: cigarettes alcohol intake: current alcohol intake frequency: holidays/special occasions only substance use type: marijuana caffeine: Yes what type of physical activity do you participate in: none seatbelt use: sometimes do you feel safe at home: Yes additional social history: Boyfriend-Hsa- Works at [employer] Patient works at [employer] ROS ED Constitutional Constitutional ED: Denies chills, fever(s) or sweats Eyes Eyes: Denies change in vision ENT ENT ED: Denies dysphagia or sore throat Cardiovascular Cardiovascular: Denies chest pain, leg edema, palpitations or racing heartbeat Respiratory/Chest Respiratory/Chest: Denies cough, dyspnea or dyspnea on exertion Gastrointestinal Gastrointestinal: Reports abdominal pain; Denies diarrhea, nausea or vomiting Genitourinary Genitourinary ED: Denies dysuria, hematuria or urinary frequency Musculoskeletal Musculoskeletal: Reports back pain; Denies extremity pain or neck pain Integumentary Denies rash or wounds Neurologic Neurologic: Denies headache(s), paresthesias or weakness EXAM Physical Exam Const Vital Signs: 08/01/21 12:46 Temperature 98.6 F Temperature Source Temporal Pulse Rate 79 Respiratory Rate 16 Blood Pressure 117/82 H Blood Pressure Mean 93 Pulse Ox 100 Oxygen Delivery Method Room Air Positive well nourished and well developed Constitutional Narrative: Uncomfortable General Appearance ED: well developed HEENT Reports moist mucous membranes normocephalic and atraumatic Eyes PERRL, EOMs intact bilaterally and conjunctivae normal General Eye ED: Yes normal appearance of both eyes Neck no lymphadenopathy and supple General: Negative for tenderness Chest Wall Chest: Negative for tenderness Resp normal respiratory effort and normal air movement Effort and Inspection: symmetric chest movement; Negative for respiratory distress Cardio regular rate, regular rhythm and no murmurs Peripheral Pulses: pulses 2+ throughout GI normal to inspection, nondistended, normoactive bowel sounds GI Narrative: Mild tenderness right upper quadrant to the right side. Palpation: Negative for guarding or rebound tenderness present Back/Spine no thoracic nor lumbar tenderness Back/Spine Narrative: Right CVA tenderness no rash or ecchymosis. General Back: CVA tenderness Extremity normal to inspection General Extremety ED: Negative for edema or tenderness General Extremity: Negative for edema Neuro oriented x3 and no sensory deficits noted Sensorium / Orientation: awake and alert Skin no rashes or lesions noted and no wounds MDM MDM MDM Narrative Medical decision making narrative: Patient tender primarily right flank with no rash or ecchymosis noted. Reports pain worse with movement. With her being uncomfortable, renal stone protocol was initiated. She was treated with Dilaudid, Toradol, Zofran with IV fluids. Abdominal laboratory studies all normal. Hemolyzed potassium 5.2 with normal creatinine. Liver enzymes lipase normal. Flank CT negative for acute process. Urine was negative for infection. Patient reevaluated states pain was improving however slowly returning. She states she has naproxen and Flexeril at home. Patient will treat for musculoskeletal injury. Short prescription for Percocet written for symptom control. She will follow-up with her PCP. All questions were answered. Lab Data Labs: Laboratory Results - last 24 hr 08/01/21 08/01/21 08/01/21 13:20 13:20 13:20 WBC 9.3 RBC 4.88 Hgb 16.0 H Hct 47.1 H MCV 96.5 MCH 32.8 H MCHC 34.0 RDW Std Deviation 43.6 RDW Coeff of Reji 12.2 Plt Count 162 MPV 11.4 Immature Gran % (Auto) 0.200 Neut % (Auto) 49.9 Lymph % (Auto) 40.1 Coles % (Auto) 7.0 Eos % (Auto) 2.3 Baso % (Auto) 0.5 Absolute Neuts (auto) 4.7 Absolute Lymphs (auto) 3.74 Nucleated RBC % 0 Sodium 136 Potassium 5.2 H Chloride 110 H Carbon Dioxide 23.0 Anion Gap 3 L BUN 8 Creatinine 0.55 Estim Creat Clear Calc 101.57 Est GFR (MDRD) Af Amer 161 Est GFR (MDRD) Non-Af 133 BUN/Creatinine Ratio 14.6 Glucose 82 Calcium 8.7 Total Bilirubin Direct Bilirubin AST ALT Alkaline Phosphatase Total Protein Albumin Globulin Lipase Serum , Qual NEGATIVE Urine Color Urine Clarity Urine pH Ur Specific [place] Urine Protein Urine Glucose (UA) Urine Ketones Urine Occult Blood Urine Nitrite Urine Bilirubin Urine Urobilinogen Ur Leukocyte Esterase Urine RBC Urine WBC Ur Squamous Epith Cells Urine Bacteria Urine Mucus 08/01/21 08/01/21 13:30 15:41 WBC RBC Hgb Hct MCV MCH MCHC RDW Std Deviation RDW Coeff of Reji Plt Count MPV Immature Gran % (Auto) Neut % (Auto) Lymph % (Auto) Coles % (Auto) Eos % (Auto) Baso % (Auto) Absolute Neuts (auto) Absolute Lymphs (auto) Nucleated RBC % Sodium Potassium Chloride Carbon Dioxide Anion Gap BUN Creatinine Estim Creat Clear Calc Est GFR (MDRD) Af Amer Est GFR (MDRD) Non-Af BUN/Creatinine Ratio Glucose Calcium Total Bilirubin 0.50 Direct Bilirubin 0.08 AST 19 ALT 20 Alkaline Phosphatase 67 Total Protein 6.9 Albumin 3.6 Globulin 3.3 Lipase 53 L Serum , Qual Urine Color Yellow Urine Clarity Clear Urine pH 7.0 Ur Specific [place] 1.005 Urine Protein Negative Urine Glucose (UA) Normal Urine Ketones Negative Urine Occult Blood Negative Urine Nitrite Negative Urine Bilirubin Negative Urine Urobilinogen Normal Ur Leukocyte Esterase Negative Urine RBC 0 SEEN Urine WBC 0-5 SEEN Ur Squamous Epith Cells 0-5 SEEN Urine Bacteria RARE Urine Mucus 0 SEEN Radiography Diagnostic Testing: Radiology Impression Abdomen/Pelvis CT 08/01/21 14:21 IMPRESSION: Normal unenhanced CT of the abdomen and pelvis. Electronically Signed: Yomaira Damon MD at 15:44 EDT Tel , Service support , Discharge Plan Triage Chief Complaint: Abd Pain ED Provider: Orville Cummings Dx/Rx/DC Orders Clinical Impression: Acute right flank pain Instructions: ED Flank Pain, Uncertain Cause Prescriptions: New oxycodone-acetaminophen [Percocet] 5-325 mg tablet 1 tab PO Q6H PRN (Reason: pain) 3 Days Qty: 12 RF: 0 No Action albuterol sulfate 1 INHALER inhaler 2 puff INHALATION Q4H PRN PRN (Reason: Asthma) Qty: 0 RF: 0 fluticasone propionate 110 mcg/actuation HFA aerosol inhaler 1 puff INHALATION BID RF: 0 pantoprazole 20 MG tablet 20 mg PO BID RF: 0 naproxen 500 MG tablet 500 mg PO BID Qty: 20 RF: 0 hydrocodone-acetaminophen [hydrocodone-acetaminophen] 1 TABLET tablet 1 tab PO Q6H PRN PRN (Reason: Pain) 3 Days Qty: 10 RF: 0 Primary Care Provider: Yassine Link Referrals: Yassine Link MD [Primary Care Provider] - 3-5 Days Disposition Disposition: Home, Self Care
[2021-08-01] MEDS: 0.9% Normal Saline 1,000 ML 1000 ML IV (14:36)
[2021-08-01] MEDS: Ondansetron 4 MG/2 ML Vial IV (14:37)
[2021-08-01] MEDS: Ketorolac 15 MG/ML Vial IV (14:37)
[2021-08-01] MEDS: HYDROmorphone 1 MG/ML Syringe IV (14:37)
[2021-08-01 15:02] LABS: AST(SGOT) 19 U/L (15-37); Alanine Aminotransfer ALT/SGPT 20 U/L (13-56); Albumin, Serum 3.6 g/dL (3.2-5.0); Alkaline Phosphatase 67 U/L (45-117); Bilirubin, Direct 0.08 mg/dL (0.00-0.30); Globulin 3.3 g/dL (2.2-4.2); Lipase 53 U/L (73-393); Protein, Total 6.9 g/dL (6.4-8.2)
--- NOTE | 2021-08-01 15:53 | ED.RN ---
called lab about no pending urine sample. per lab receiving it now and to be run.
[2021-08-01 16:02] LABS: Color, Urine Yellow (Yellow); Glucose, Dipstick Normal (Normal); Ketone-Dipstick Negative (Negative); Leukocyte Esterase-Dipstick Negative /ul (Negative); Mucous, Urine 0 SEEN /hpf (<or=2+); Nitrite-Dipstick Negative (Negative); Occult Blood-Urine Negative /ul (Negative); Protein-Dipstick Negative (Negative); Red Blood Cells-Urine 0 SEEN /hpf (0-5); Specific Gravity, Urine 1.005 (1.002-1.030); Urine Bilirubin Dipstick Negative (Negative); Urine Clarity Clear (Clear); Urine Urobilinogen Normal (Normal)
[2021-08-01 16:04] LABS: Bacteria RARE /hpf (None Seen); Squamous Epithelial Cells - UA 0-5 SEEN /hpf (5-10); White Blood Cells 0-5 SEEN /hpf (0-5)
[2021-08-01] MEDS: oxyCODONE 5 MG Tablet PO (16:36)
[2021-08-01 16:59] VITALS: BP 135/86; PULSE 72; RESP 16; O2SAT 97
== END 2021-08-01 17:03 | disposition home or self-care (01) ==
PROVIDERS: Emergency Provider Emergency Medicine; PCP Internal Medicine
DX: R10.11 Right upper quadrant pain (principal); K21.9 Gastro-esophageal reflux disease without esophagitis; K58.9 Irritable bowel syndrome, unspecified; F17.210 Nicotine dependence, cigarettes, uncomplicated; Z79.899 Other long term (current) drug therapy
CPT/HCPCS: 74176; 80048; 80076; 81001; 83690; 84703; 85025; 96361; 96374; 96375; 99285; J7030; A4216; J2405

== ENCOUNTER 2021-08-20 15:20 | Emergency (ER) | payer MEDICAID, SELFPAY ==
[2021-08-20 15:21] VITALS: BP 122/79; PULSE 84; RESP 18; TEMP 36.1; O2SAT 100; BMI 33.2
[2021-08-20 17:28] VITALS: BP 117/75; PULSE 77; RESP 16; O2SAT 99
--- NOTE | 2021-08-20 18:24 | EX.ED.DYSGE1 ---
HPI History of Present Illness Chief Complaint: Numb/Ting Narrative Narrative: Patient presenting with numbness and tingling in the left upper extremity fairly diffusely. She states that she had a nerve block placed by [facility] pain management a couple of days ago and she states that she was not supposed to have symptoms this long of numbness and tingling. She has tried to get a hold of the on-call physician Dr. Peralta but has not had a reply. Patient states that this nerve block was done for thoracic outlet syndrome which is neurogenic in nature. She states that the symptoms were only present for 24 hours and have now been going on for 2 days. She denies any new injury. [facility] Medical History Anxiety Depression GERD (gastroesophageal reflux disease) IBS (irritable bowel syndrome) Thoracic outlet syndrome Home Medications albuterol sulfate 2 puff INHALATION Q4H PRN PRN #0 inhaler 05/03/16 [Rx Last Taken 11/17/18] pantoprazole 20 mg PO BID 04/26/20 [History Last Taken Unknown] fluticasone propionate 110 mcg/actuation HFA aerosol inhaler 1 puff INHALATION BID 12/14/20 [History Last Taken Unknown] naproxen 500 mg PO BID #20 tab 04/14/21 [Rx Last Taken Unknown] hydrocodone-acetaminophen 1 tab PO Q6H PRN PRN 3 Days #10 tablet 05/16/21 [Rx Last Taken Unknown] oxycodone-acetaminophen [Percocet] 1 tab PO Q6H PRN 3 Days #12 tab 08/01/21 [Rx Last Taken Unknown] prednisone 20 mg PO BID 4 Days #8 tab 08/20/21 [Rx Last Taken Unknown] Allergy/AdvReac Type Severity Reaction Status Date / Time benzonatate Allergy Rash Verified 08/20/21 15:25 [From Tessalon Perles] diazepam [From Valium] Allergy Hives Verified 08/20/21 15:25 morphine Allergy Itching Verified 08/20/21 15:25 Penicillins Allergy Hives Verified 08/20/21 15:25 venom-honey bee Allergy Hives Verified 08/20/21 15:25 [bee venom (honey bee)] Family History Father Heart disease Hypertension Myocardial infarction Mother Cancer lung, throat and Lupus Surgical History History of esophagogastroduodenoscopy (EGD) S/P breast biopsy S/P colonoscopy Status post hysterectomy Social History Smoking Status: Current every day smoker tobacco type: cigarettes alcohol intake: current alcohol intake frequency: holidays/special occasions only substance use type: marijuana caffeine: Yes what type of physical activity do you participate in: none seatbelt use: sometimes do you feel safe at home: Yes additional social history: Boyfriend-Sha- Works at [employer] Patient works at [employer] ROS ROS ED Constitutional Constitutional ED: Denies chills or fever(s) Eyes Eyes: Denies blurry vision or change in vision ENT ENT ED: Denies rhinorrhea or sore throat Cardiovascular Cardiovascular: Denies chest pain or palpitations Respiratory/Chest Respiratory/Chest: Denies cough or dyspnea Gastrointestinal Gastrointestinal: Denies abdominal pain or nausea Genitourinary Genitourinary ED: Denies dysuria or hematuria Musculoskeletal Musculoskeletal: Denies neck pain Integumentary Denies abscess or rash Neurologic Neurologic: Reports paresthesias LUE Psychiatric Psychiatric: Denies anxiety or depression EXAM Physical Exam Const Vital Signs: 08/20/21 15:21 08/20/21 17:28 Temperature 97 F L Temperature Source Temporal Pulse Rate 84 77 Respiratory Rate 18 16 Blood Pressure 122/79 H 117/75 Blood Pressure Mean 93 89 Pulse Ox 100 99 Oxygen Delivery Method Room Air Positive well nourished General Appearance ED: NAD HEENT Reports moist mucous membranes Negative for trauma Eyes PERRL and EOMs intact bilaterally Resp normal respiratory effort and clear to auscultation bilaterally Cardio regular rate and regular rhythm Back/Spine no CVA tenderness Cervical Spine: Negative for cervical spine tenderness Extremity Extremity Narrative: Left upper extremity does have sensation although she states decreased diffusely. She does have 2+ motor strength. Pulses are 2+ throughout. Butch's test normal. Brisk cap refill to all 5 fingers. Neuro oriented x3 and CN's II-XII intact bilaterally Sensorium / Orientation: alert Psych mental status grossly normal Skin no rashes or lesions noted and no wounds MDM MDM MDM Narrative Medical decision making narrative: Patient was discussed with the on-call physicians resident. She was discussed at length. They felt as long as she had good strength and pulses that likely this was just due to the nerve block lasting longer. They state that there is variability in the length of time that this would last. They did state this was a diagnostic blockade if there was surgical intervention necessary she is to follow-up with the vascular surgeon who referred her to pain management. They recommended putting her on steroids for a few days and this was ordered for her. Patient requests a work note because she had to miss work today secondary to the paresthesias. This was provided. Patient will follow up with her vascular surgeon outpatient to ensure resolution. Impression: 1. Paresthesia left upper extremity 2. History of neurogenic thoracic outlet syndrome 3. History of nerve block Discharge Plan Triage Chief Complaint: Numb/Ting ED Provider: Henry Ivan Dx/Rx/DC Orders Instructions: ED Neuropathy, Peripheral Prescriptions: New prednisone 20 mg tablet 20 mg PO BID 4 Days Qty: 8 RF: 0 No Action albuterol sulfate 1 INHALER inhaler 2 puff INHALATION Q4H PRN PRN (Reason: Asthma) Qty: 0 RF: 0 fluticasone propionate 110 mcg/actuation HFA aerosol inhaler 1 puff INHALATION BID RF: 0 pantoprazole 20 MG tablet 20 mg PO BID RF: 0 naproxen 500 MG tablet 500 mg PO BID Qty: 20 RF: 0 hydrocodone-acetaminophen [hydrocodone-acetaminophen] 1 TABLET tablet 1 tab PO Q6H PRN PRN (Reason: Pain) 3 Days Qty: 10 RF: 0 oxycodone-acetaminophen [Percocet] 5-325 mg tablet 1 tab PO Q6H PRN (Reason: pain) 3 Days Qty: 12 RF: 0 Primary Care Provider: Yassine Link Referrals: Yassine Link MD [Primary Care Provider] - Disposition Disposition: Home, Self Care Discharge Date/Time: 08/20/21 19:05
== END 2021-08-20 19:05 | disposition home or self-care (01) ==
PROVIDERS: Emergency Provider Student in an Organized Health Care Education/Training Program; PCP Internal Medicine
DX: G54.0 Brachial plexus disorders (principal); F17.210 Nicotine dependence, cigarettes, uncomplicated
CPT/HCPCS: 99282

== ENCOUNTER 2021-10-01 18:58 | Emergency (ER) | payer MEDICAID, SELFPAY ==
[2021-10-01 18:59] VITALS: BP 109/66; PULSE 81; RESP 14; TEMP 36.3; O2SAT 100; BMI 33.0
--- NOTE | 2021-10-01 19:15 | EDS_ITS ---
HPI History of Present Illness Chief Complaint: Wound Detail of Chief Complaint: Postop pain Informant: patient Onset/Context/Timing Onset: Today and Yesterday Context: Gradual Onset Timing: Continuous Quality: Tearing sensation Location: Incision site for left thoracic outlet procedure Current Severity: Severe Maximum Severity: Severe Worsened by: Movement Relieved by: Nothing Associated Symptoms Associated Symptoms: Nothing Narrative Narrative: Patient is a 35-year-old woman status post thoracic outlet surgery at [facility]. She presents because of a tearing sensation in the wound. She is present oxycodone. She states the oxycodone has not worked today. She denies fever, chills night sweats. Denies shortness of breath. She denies drainage from the wound. She denies paresthesia, anesthesia or motor weakness to the left upper extremity. Prior similar symptoms: No Recent Illness/Hospitalization: Yes [facility] Medical History (Updated 10/01/21 @ 20:[address] Grant Mercado MD) Anxiety Depression GERD (gastroesophageal reflux disease) H/O thoracic outlet syndrome IBS (irritable bowel syndrome) Thoracic outlet syndrome Home Medications albuterol sulfate 2 puff INHALATION Q4H PRN PRN #0 inhaler 05/03/16 [Rx Last Taken 11/17/18] pantoprazole 20 mg PO BID 04/26/20 [History Last Taken Unknown] fluticasone propionate 110 mcg/actuation HFA aerosol inhaler 1 puff INHALATION BID 12/14/20 [History Last Taken Unknown] naproxen 500 mg PO BID #20 tab 04/14/21 [Rx Last Taken Unknown] hydrocodone-acetaminophen 1 tab PO Q6H PRN PRN 3 Days #10 tablet 05/16/21 [Rx Last Taken Unknown] oxycodone-acetaminophen [Percocet] 1 tab PO Q6H PRN 3 Days #12 tab 08/01/21 [Rx Last Taken Unknown] prednisone 20 mg PO BID 4 Days #8 tab 08/20/21 [Rx Last Taken Unknown] Allergy/AdvReac Type Severity Reaction Status Date / Time benzonatate Allergy Rash Verified 10/01/21 18:59 [From Tessalon Perles] diazepam [From Valium] Allergy Hives Verified 10/01/21 18:59 morphine Allergy Itching Verified 10/01/21 18:59 Penicillins Allergy Hives Verified 10/01/21 18:59 venom-honey bee Allergy Hives Verified 10/01/21 18:59 [bee venom (honey bee)] Family History Father Heart disease Hypertension Myocardial infarction Mother Cancer lung, throat and Lupus Surgical History History of esophagogastroduodenoscopy (EGD) S/P breast biopsy S/P colonoscopy Status post hysterectomy Social History (Updated 10/01/21 @ 19:[address] Grant Mercado MD) household members: none Smoking Status: Current every day smoker tobacco type: cigarettes alcohol intake: current alcohol intake frequency: holidays/special occasions only substance use type: marijuana caffeine: Yes what type of physical activity do you participate in: none seatbelt use: sometimes do you feel safe at home: Yes additional social history: Boyfriend-Sha- Works at [employer] Patient works at [employer] [facility] ED Constitutional Constitutional ED: Denies chills, fever(s), subjective, sweats or weight loss Eyes Eyes: Denies blurry vision, change in vision or diplopia Cardiovascular Cardiovascular: Denies chest pain, palpitations or racing heartbeat Respiratory/Chest Respiratory/Chest: Denies cough, dyspnea or dyspnea on exertion Gastrointestinal Gastrointestinal: Denies nausea or vomiting Integumentary Reports other Details: Per physical exam ; Denies rash Neurologic Neurologic: Reports other Details: Per HPI ; Denies paresthesias or weakness EXAM Physical Exam Const Vital Signs: 10/01/21 18:59 Temperature 97.3 F L Temperature Source Temporal Pulse Rate 81 Respiratory Rate 14 Blood Pressure 109/66 Blood Pressure Mean 80 Pulse Ox 100 Oxygen Delivery Method Room Air Positive well nourished and well developed General Appearance ED: well developed and NAD; Negative for cyanotic or diaphoretic HEENT HEENT Narrative: Head is a traumatic normocephalic. Ears normal. Nares patent. Eyes PERRL and EOMs intact bilaterally General Eye ED: Negative for pale conjunctiva or scleral icterus Neck no lymphadenopathy, supple and no JVD Neck Narrative: There is no carotid bruit. Chest Wall palpation of chest normal Chest Narrative: Incision is well-healed with no evidence of infection i.e. erythema, warmth, fluctuance, induration, lymphangitis. There is no pulsatile mass. There is no crepitus or subcutaneous air appreciated. Resp normal respiratory effort and clear to auscultation bilaterally Cardio regular rate, regular rhythm, S1 normal heart sound, S2 normal heart sound and no murmurs Extremity normal to inspection Extremity Narrative: Axillary, median, radial and ulnar function intact. General Extremety ED: Negative for edema or tenderness General Extremity: Negative for edema Neuro oriented x3 and CN's II-XII intact bilaterally Sensorium / Orientation: alert Sensory Exam: sensory level loss detected Motor Exam: strength 5/5 throughout Psych Mood & Affect: depressed Skin General Skin Exam: other Incision site is healing without complication MDM MDM MDM Narrative Medical decision making narrative: Based on history and physical exam I presently do not have concern for any significant subcutaneous or intrathoracic bleeding. Requires additional pain to minimize/control the pain. Of note she has pain out of proportion to tactile stimuli. Patient was reassessed at 2006. She feels markedly better. There is no change from initial evaluation/examination. Plan is to discharge home with appropriate home-going instructions Discharge Plan Triage Chief Complaint: Wound ED Provider: Grant Mercado Dx/Rx/DC Orders Clinical Impression: Post-op pain Instructions: ED Post Op Wound Check, Pain Prescriptions: No Action albuterol sulfate 1 INHALER inhaler 2 puff INHALATION Q4H PRN PRN (Reason: Asthma) Qty: 0 RF: 0 fluticasone propionate 110 mcg/actuation HFA aerosol inhaler 1 puff INHALATION BID RF: 0 pantoprazole 20 MG tablet 20 mg PO BID RF: 0 naproxen 500 MG tablet 500 mg PO BID Qty: 20 RF: 0 hydrocodone-acetaminophen [hydrocodone-acetaminophen] 1 TABLET tablet 1 tab PO Q6H PRN PRN (Reason: Pain) 3 Days Qty: 10 RF: 0 oxycodone-acetaminophen [Percocet] 5-325 mg tablet 1 tab PO Q6H PRN (Reason: pain) 3 Days Qty: 12 RF: 0 prednisone 20 mg tablet 20 mg PO BID 4 Days Qty: 8 RF: 0 Primary Care Provider: Yassine Link Referrals: Yassine Link MD [Primary Care Provider] - As Needed Disposition Disposition: Home, Self Care
[2021-10-01] MEDS: Ondansetron 4 MG/2 ML Vial IV (19:35)
[2021-10-01] MEDS: HYDROmorphone 1 MG/ML Syringe 0.5 MG IV (19:35)
--- NOTE | 2021-10-01 19:35 | ED.RN ---
UNABLE TO FIND WORKING MOBILE COMPUTER TO SCAN MEDICATIONS.
== END 2021-10-01 20:18 | disposition home or self-care (01) ==
PROVIDERS: Emergency Provider Emergency Medicine; PCP Internal Medicine
DX: Z48.01 Encounter for change or removal of surgical wound dressing (principal); G89.18 Other acute postprocedural pain; F17.210 Nicotine dependence, cigarettes, uncomplicated
CPT/HCPCS: 96374; 96375; 99283; A4216; J2405

== ENCOUNTER 2021-10-09 17:58 | Emergency (ER) | payer MEDICAID, SELFPAY ==
[2021-10-09 17:58] VITALS: BP 118/56; PULSE 83; RESP 18; TEMP 36.9; O2SAT 100; BMI 33.1
--- NOTE | 2021-10-09 18:43 | EDS_ITS ---
HPI History of Present Illness Chief Complaint: Wound Check Narrative Narrative: 35-year-old female with history of thoracic outlet syndrome. She has chronic pain in the left shoulder. She recently had surgery and states she has been doing fine most of this week she did have to come to the ER previously and it received Dilaudid and that helped her pain. Her pain has been down until today. She describes stiffness and not left anterior portion of her neck which she states is expected after the surgery and was told that would happen. He does have a little bit of tingling into the left arm which is also chronic. He states he has the portion of the first rib removed. She denies any shortness of breath, fever, chills, cough. Patient did state that she has not called her surgeon because she felt well up until today. Her next appointment is October 25. She does have oxycodone at home. [facility] Medical History Anxiety Depression GERD (gastroesophageal reflux disease) H/O thoracic outlet syndrome IBS (irritable bowel syndrome) Thoracic outlet syndrome Home Medications albuterol sulfate 2 puff INHALATION Q4H PRN PRN #0 inhaler 05/03/16 [Rx Last Taken 11/17/18] pantoprazole 20 mg PO BID 04/26/20 [History Last Taken Unknown] Allergy/AdvReac Type Severity Reaction Status Date / Time benzonatate Allergy Rash Verified 10/09/21 18:00 [From Tessalon Perles] diazepam [From Valium] Allergy Hives Verified 10/09/21 18:00 morphine Allergy Itching Verified 10/09/21 18:00 Penicillins Allergy Hives Verified 10/09/21 18:00 venom-honey bee Allergy Hives Verified 10/09/21 18:00 [bee venom (honey bee)] Family History Father Heart disease Hypertension Myocardial infarction Mother Cancer lung, throat and Lupus Surgical History History of esophagogastroduodenoscopy (EGD) S/P breast biopsy S/P colonoscopy Status post hysterectomy Social History household members: none Smoking Status: Current every day smoker tobacco type: cigarettes alcohol intake: current alcohol intake frequency: holidays/special occasions only substance use type: marijuana caffeine: Yes what type of physical activity do you participate in: none seatbelt use: sometimes do you feel safe at home: Yes additional social history: Boyfriend-Sha- Works at [employer] Patient works at [facility] [employer] ROS ROS ED Constitutional Constitutional ED: Denies chills or fever(s) ENT ENT ED: Denies rhinorrhea or sore throat Cardiovascular Cardiovascular: Denies chest pain or palpitations Respiratory/Chest Respiratory/Chest: Denies cough or dyspnea Gastrointestinal Gastrointestinal: Denies abdominal pain, nausea or vomiting Genitourinary Genitourinary ED: Denies dysuria or hematuria Musculoskeletal Musculoskeletal: Reports other Details: Left shoulder pain and left-sided neck pain Integumentary Reports other Details: Postop wound left upper chest wall Neurologic Neurologic: Denies headache(s) Psychiatric Psychiatric: Denies anxiety or depression EXAM Physical Exam Const Vital Signs: 10/09/21 17:58 Temperature 98.5 F Temperature Source Temporal Pulse Rate 83 Respiratory Rate 18 Blood Pressure 118/56 L Blood Pressure Mean 76 Pulse Ox 100 Oxygen Delivery Method Room Air Positive well nourished General Appearance ED: NAD HEENT Reports moist mucous membranes Negative for trauma Eyes PERRL and EOMs intact bilaterally Neck Neck Narrative: No midline spinal tenderness, 40, step-off. There is tenderness to the left side of the trapezius. No crepitance or deformity. Resp normal respiratory effort and clear to auscultation bilaterally Cardio regular rate and regular rhythm Neuro oriented x3 and CN's II-XII intact bilaterally Sensorium / Orientation: alert Skin Skin Narrative: Postoperative wound on the left upper chest wall is clean dry and intact. No signs of inflammation. MDM MDM MDM Narrative Medical decision making narrative: Patient was given 2 doses of Dilaudid in the ER for pain. I did talk to her extensively about following up with her surgeon at [facility]. This has been an ongoing issue for a week although she states the pain did improve throughout the week until today. Her wound does not look infected. He does have oxycodone at home. I will discharge her home to follow-up with her surgeon as needed. Impression: 1. Postop shoulder pain Discharge Plan Triage Chief Complaint: Wound Check ED Provider: Henry Ivan Dx/Rx/DC Orders Prescriptions: No Action albuterol sulfate 1 INHALER inhaler 2 puff INHALATION Q4H PRN PRN (Reason: Asthma) Qty: 0 RF: 0 pantoprazole 20 MG tablet 20 mg PO BID RF: 0 Primary Care Provider: Yassine Link
[2021-10-09] MEDS: HYDROmorphone 1 MG/ML Syringe IV ×2 (19:02→19:55)
[2021-10-09 20:22] VITALS: BP 116/84; PULSE 88
[2021-10-09 20:39] VITALS: BP 118/84; PULSE 84
== END 2021-10-09 20:40 | disposition home or self-care (01) ==
PROVIDERS: Emergency Provider Student in an Organized Health Care Education/Training Program; PCP Internal Medicine
DX: M25.512 Pain in left shoulder (principal); G89.18 Other acute postprocedural pain; K21.9 Gastro-esophageal reflux disease without esophagitis; F17.210 Nicotine dependence, cigarettes, uncomplicated; Z79.899 Other long term (current) drug therapy
CPT/HCPCS: 96374; 96376; 99282

== ENCOUNTER 2021-11-26 14:52 | Emergency (ER) | payer MEDICAID, SELFPAY ==
[2021-11-26 14:53] VITALS: BP 137/77; PULSE 70; RESP 16; TEMP 36.9; O2SAT 100; BMI 33.2
--- NOTE | 2021-11-26 15:13 | EDS_ITS ---
HPI History of Present Illness Chief Complaint: Other, Pain/Inj Narrative Narrative: pain in the left side of her neck. She has thoracic outlet syndrome in the past and had surgical repair of this.36-year-old female with chronic patient states that she had this repaired at [facility]. She states that she is currently using lidocaine patches which had been working. She is doing physical therapy and now notes that the left side of her neck is hurting again. She feels like it is a muscle pull. She has not contacted her surgeon in the last 3 days of symptoms. She states that on her last visit with him he was recommending pain management and also did comment that she may need a another nerve block. Patient states that she has not been referred to pain management. She is waiting for her surgeon to do this. [facility] Medical History Anxiety Depression GERD (gastroesophageal reflux disease) H/O thoracic outlet syndrome IBS (irritable bowel syndrome) Thoracic outlet syndrome Home Medications albuterol sulfate 2 puff INHALATION Q4H PRN PRN #0 inhaler 05/03/16 [Rx Last Taken 11/17/18] pantoprazole 20 mg PO BID 04/26/20 [History Last Taken Unknown] tizanidine [Zanaflex] 4 mg PO Q8H PRN #14 tab 11/26/21 [Rx Last Taken Unknown] Allergy/AdvReac Type Severity Reaction Status Date / Time benzonatate Allergy Rash Verified 11/26/21 14:55 [From Tessalon Perles] diazepam [From Valium] Allergy Hives Verified 11/26/21 14:55 morphine Allergy Itching Verified 11/26/21 14:55 Penicillins Allergy Hives Verified 11/26/21 14:55 venom-honey bee Allergy Hives Verified 11/26/21 14:55 [bee venom (honey bee)] Family History Father Heart disease Hypertension Myocardial infarction Mother Cancer lung, throat and Lupus Surgical History History of esophagogastroduodenoscopy (EGD) S/P breast biopsy S/P colonoscopy Status post hysterectomy Social History household members: none Smoking Status: Current every day smoker tobacco type: cigarettes alcohol intake: current alcohol intake frequency: holidays/special occasions only substance use type: marijuana caffeine: Yes what type of physical activity do you participate in: none seatbelt use: sometimes do you feel safe at home: Yes additional social history: Boyfriend-Sha- Works at [employer] Patient works at [employer], Located [facility] ROS ROS ED Constitutional Constitutional ED: Denies chills or fever(s) Eyes Eyes: Denies blurry vision or change in vision ENT ENT ED: Denies rhinorrhea or sore throat Cardiovascular Cardiovascular: Denies chest pain or palpitations Respiratory/Chest Respiratory/Chest: Denies cough or dyspnea Gastrointestinal Gastrointestinal: Denies abdominal pain, nausea or vomiting Genitourinary Genitourinary ED: Denies dysuria or hematuria Musculoskeletal Musculoskeletal: Reports neck pain; Denies back pain Integumentary Denies Abrasions or rash Neurologic Neurologic: Denies headache(s) or paresthesias Psychiatric Psychiatric: Denies anxiety or depression EXAM Physical Exam Const Vital Signs: 11/26/21 14:53 11/26/21 15:02 Temperature 98.4 F Temperature Source Temporal Pulse Rate 70 Respiratory Rate 16 Respiratory Pattern Normal Blood Pressure 137/77 H Blood Pressure Mean 97 Pulse Ox 100 Oxygen Delivery Method Room Air Positive well nourished General Appearance ED: NAD HEENT atraumatic Eyes PERRL and EOMs intact bilaterally Neck full ROM Neck Narrative: No midline spinal tenderness, deformity, step-off. There is tenderness in the left cervical paraspinal musculature which extends into the left clavicle area. There is no bruising, crepitance. There is a well-healing surgical scar. No stridor. General: other Resp normal respiratory effort and clear to auscultation bilaterally Cardio regular rhythm Rate: regular rate Neuro oriented x3 Sensorium / Orientation: alert Psych mental status grossly normal and thought process normal Skin no rashes or lesions noted MDM MDM MDM Narrative Medical decision making narrative: 36-year-old female presenting with acute on chronic neck pain. She has had surgical repair for her thoracic outlet syndrome and has had nerve blocks in this area which previously helped. After doing physical therapy she notes that this is sore in this area. She states it feels like a muscle spasm. She has not had any trauma to this. Patient is given 1/2 mg of Dilaudid in the ER for pain. She is counseled that this is a chronic issue and I do not believe she needs narcotics for home but she needs to follow- up for referral for pain management. I will provide her with some muscle relaxers that she is amenable to this. I do not believe she needs any imaging or blood work. Impression: 1. Acute on chronic neck pain 2. Muscle spasm Discharge Plan Triage Chief Complaint: Other, Pain/Inj ED Provider: Henry Ivan Dx/Rx/DC Orders Instructions: ED Muscle Spasm Prescriptions: New tizanidine [Zanaflex] 4 mg tablet 4 mg PO Q8H PRN (Reason: muscle spasticity) Qty: 14 RF: 0 No Action albuterol sulfate 1 INHALER inhaler 2 puff INHALATION Q4H PRN PRN (Reason: Asthma) Qty: 0 RF: 0 pantoprazole 20 MG tablet 20 mg PO BID RF: 0 Primary Care Provider: Yassine Link Referrals: Yassine Link MD [Primary Care Provider] - Disposition Disposition: Home, Self Care
[2021-11-26] MEDS: HYDROmorphone 0.5 MG/0.5 ML SYRINGE IM (15:20)
== END 2021-11-26 15:46 | disposition home or self-care (01) ==
PROVIDERS: Emergency Provider Student in an Organized Health Care Education/Training Program; PCP Internal Medicine
DX: M54.2 Cervicalgia (principal); G89.29 Other chronic pain; M62.838 Other muscle spasm; G54.0 Brachial plexus disorders; F32.A Depression, unspecified; F41.9 Anxiety disorder, unspecified; K21.9 Gastro-esophageal reflux disease without esophagitis; K58.9 Irritable bowel syndrome, unspecified; F17.210 Nicotine dependence, cigarettes, uncomplicated; Z79.899 Other long term (current) drug therapy
CPT/HCPCS: 96372; 99281; 99282

== ENCOUNTER 2021-12-20 14:09 | Emergency (ER) | payer MEDICAID, SELFPAY ==
[2021-12-20 14:10] VITALS: BP 123/78; PULSE 83; RESP 16; TEMP 36.2; O2SAT 100; BMI 32.2
--- NOTE | 2021-12-20 14:37 | EDS_ITS ---
HPI History of Present Illness Chief Complaint: Upper Extremity Injury Informant: patient Narrative Narrative: 36-year-old female states that approximately 4 hours ago she was going up some stairs when she slipped and fell and injured her left clavicle area. She states that she has chronic pain in this area due to thoracic outlet syndrome for which she had surgery at the end of last year. She denies any shortness of breath. She notes pain upon palpation. [facility] Medical History Anxiety Depression GERD (gastroesophageal reflux disease) H/O thoracic outlet syndrome IBS (irritable bowel syndrome) Thoracic outlet syndrome Home Medications albuterol sulfate 2 puff INHALATION Q4H PRN PRN #0 inhaler 05/03/16 [Rx Last Taken 11/17/18] pantoprazole 20 mg PO BID 04/26/20 [History Last Taken Unknown] tizanidine [Zanaflex] 4 mg PO Q8H PRN #14 tab 11/26/21 [Rx Last Taken Unknown] Allergy/AdvReac Type Severity Reaction Status Date / Time benzonatate Allergy Rash Verified 12/20/21 14:11 [From Tessalon Perles] diazepam [From Valium] Allergy Hives Verified 12/20/21 14:11 morphine Allergy Itching Verified 12/20/21 14:11 Penicillins Allergy Hives Verified 12/20/21 14:11 venom-honey bee Allergy Hives Verified 12/20/21 14:11 [bee venom (honey bee)] Family History Father Heart disease Hypertension Myocardial infarction Mother Cancer lung, throat and Lupus Surgical History History of esophagogastroduodenoscopy (EGD) S/P breast biopsy S/P colonoscopy Status post hysterectomy Social History household members: none Smoking Status: Current every day smoker tobacco type: cigarettes alcohol intake: current alcohol intake frequency: holidays/special occasions only substance use type: marijuana caffeine: Yes what type of physical activity do you participate in: none seatbelt use: sometimes do you feel safe at home: Yes additional social history: Boyfriend-Sha- Works at [employer] Patient works at [employer] ROS ROS ED Constitutional Constitutional ED: Denies chills, fever(s) or weight loss Eyes Eyes: Denies change in vision or diplopia ENT ENT ED: Denies ear pain, rhinorrhea or sore throat Cardiovascular Cardiovascular: Denies chest pain, orthopnea, palpitations or racing heartbeat Respiratory/Chest Respiratory/Chest: Denies cough, dyspnea or orthopnea Gastrointestinal Gastrointestinal: Denies abdominal pain, diarrhea, nausea or vomiting Genitourinary Genitourinary ED: Denies dysuria, hematuria or urinary frequency Musculoskeletal Musculoskeletal: Reports other Details: See HPI ; Denies arthralgias or myalgias Integumentary Denies abscess or rash Neurologic Neurologic: Denies headache(s) or weakness Psychiatric Psychiatric: Denies anxiety, depression, suicidal ideation or suicidal thoughts Endocrine Endocrinology: Denies polydipsia, polyphagia or polyuria Allergic/Immunologic Allergic/Immunologic ED: Denies mouth swelling, tongue swelling or urticaria EXAM Physical Exam Const Vital Signs: 12/20/21 14:10 Temperature 97.2 F L Temperature Source Temporal Pulse Rate 83 Respiratory Rate 16 Blood Pressure 123/78 H Blood Pressure Mean 93 Pulse Ox 100 Oxygen Delivery Method Room Air Positive well nourished and well developed General Appearance ED: well developed HEENT Reports normocephalic, head/scalp atraumatic and moist mucous membranes normocephalic and atraumatic Eyes PERRL and EOMs intact bilaterally Neck full ROM, no lymphadenopathy, supple and no JVD General: Negative for tenderness Chest Wall Chest Narrative: When I attempt to palpate the left clavicle the patient raises her shoulder towards the left ear and bends her head down. She does this in a very rapid movement which does not seem to cause her pain. She is able to take deep breaths apparently comfortably. Resp normal respiratory effort and clear to auscultation bilaterally Cardio regular rate, regular rhythm and no murmurs GI normal to inspection, nondistended, normoactive bowel sounds and non-tender Palpation: soft Back/Spine no CVA tenderness and normal ROM Extremity normal to inspection General Extremety ED: Negative for edema General Extremity: Negative for edema Neuro oriented x3 and CN's II-XII intact bilaterally Sensorium / Orientation: alert Motor Exam: strength 5/5 throughout Psych mental status grossly normal Mood & Affect: Negative for depressed or tearful Skin no rashes or lesions noted and no wounds MDM MDM MDM Narrative Medical decision making narrative: My interpretation of the two-view clavicle series is no acute fracture. Patient be discharged home with supportive care would recommend anti-inflammatories and ice. Follow-up with primary care if not improving Discharge Plan Triage Chief Complaint: Upper Extremity Injury ED Provider: Bartolo Giles Dx/Rx/DC Orders Clinical Impression: Contusion of clavicular region Instructions: ED Chest Wall Contusion Prescriptions: No Action albuterol sulfate 1 INHALER inhaler 2 puff INHALATION Q4H PRN PRN (Reason: Asthma) Qty: 0 RF: 0 pantoprazole 20 MG tablet 20 mg PO BID RF: 0 tizanidine [Zanaflex] 4 mg tablet 4 mg PO Q8H PRN (Reason: muscle spasticity) Qty: 14 RF: 0 Primary Care Provider: Yassine Link Referrals: Yassine Link MD [Primary Care Provider] - 10-14 Days if not better Disposition Disposition: Home, Self Care
--- NOTE | 2021-12-20 15:00 | RAD_ITS ---
STUDY: X-RAY - LEFT CLAVICLE REASON FOR EXAM: Female, 36 years old. Injury TECHNIQUE: 3 view(s) of the clavicle. COMPARISON: Comparison is made with prior study dated 04/14/2021. FINDINGS: Normal clavicle. Normal acromioclavicular articulation. Normal visualized sternoclavicular articulation. Normal visualized pulmonary apex. RAD/Clavicle IMPRESSION: Normal x-ray examination of the clavicle. Electronically Signed: Willy Hilliard MD at 15:13 EST ,
== END 2021-12-20 15:26 | disposition home or self-care (01) ==
PROVIDERS: Emergency Provider Emergency Medicine; PCP Internal Medicine; Visit Provider Emergency Medicine
DX: S40.012A Contusion of left shoulder, initial encounter (principal); W10.9XXA Fall (on) (from) unspecified stairs and steps, initial encounter; G54.0 Brachial plexus disorders; G89.29 Other chronic pain; K21.9 Gastro-esophageal reflux disease without esophagitis; F17.210 Nicotine dependence, cigarettes, uncomplicated; Z79.899 Other long term (current) drug therapy
CPT/HCPCS: 73000; 99282

== ENCOUNTER 2022-03-09 22:29 | Emergency (ER) | payer MEDICAID, SELFPAY ==
[2022-03-09 22:31] VITALS: BP 123/73; PULSE 78; RESP 14; TEMP 35.9; BMI 34.2
--- NOTE | 2022-03-09 22:41 | EX.ED.UPPERE ---
HPI History of Present Illness Chief Complaint: Upper Extremity Injury Informant: patient Narrative Narrative: Patient hurt her right shoulder somewhere between 3 and 5 days ago. She was lifting a couch. She somehow slipped and fell. She thinks she hurt the shoulder lifting not following but is not sure. Most of the pain is in the back of the right shoulder and on top. Its not really anterior. No numbness tingling weakness. It is better if she holds it still and worse if she moves it. There is no one direction that is bad. No shortness of breath. No head injury. PFSH PFS Medical History Anxiety Depression GERD (gastroesophageal reflux disease) H/O thoracic outlet syndrome IBS (irritable bowel syndrome) Thoracic outlet syndrome Home Medications albuterol sulfate 2 puff INHALATION Q4H PRN PRN #0 inhaler 05/03/16 [Rx Last Taken 11/17/18] pantoprazole 20 mg PO BID 04/26/20 [History Last Taken Unknown] tizanidine [Zanaflex] 4 mg PO Q8H PRN #14 tab 11/26/21 [Rx Last Taken Unknown] naproxen 500 mg PO BID #14 tab 03/09/22 [Rx Last Taken Unknown] Allergy/AdvReac Type Severity Reaction Status Date / Time benzonatate Allergy Rash Verified 03/09/22 22:31 [From Tessalon Perles] diazepam [From Valium] Allergy Hives Verified 03/09/22 22:31 morphine Allergy Itching Verified 03/09/22 22:31 Penicillins Allergy Hives Verified 03/09/22 22:31 venom-honey bee Allergy Hives Verified 03/09/22 22:31 [bee venom (honey bee)] Family History Father Heart disease Hypertension Myocardial infarction Mother Cancer lung, throat and Lupus Surgical History History of esophagogastroduodenoscopy (EGD) S/P breast biopsy S/P colonoscopy Status post hysterectomy Social History household members: none Smoking Status: Current every day smoker tobacco type: cigarettes alcohol intake: current alcohol intake frequency: holidays/special occasions only substance use type: marijuana caffeine: Yes what type of physical activity do you participate in: none seatbelt use: sometimes do you feel safe at home: Yes additional social history: Boyfriend-Sha- Works at [email or web address] Patient works at [facility] [employer] ROS ROS ED Eyes Eyes: Denies blurry vision or change in vision Cardiovascular Cardiovascular: Denies chest pain Respiratory/Chest Respiratory/Chest: Denies dyspnea Gastrointestinal Gastrointestinal: Denies nausea or vomiting Genitourinary Genitourinary ED: Denies hematuria Musculoskeletal Musculoskeletal: Reports other Details: See history of present illness. ; Denies neck pain Integumentary Denies abscess, Abrasions or rash Neurologic Neurologic: Denies headache(s), paresthesias or weakness Hematologic/Lymphatic Hematologic/Lymphatic: Denies easy bleeding or easy bruising EXAM Physical Exam Const Vital Signs: 03/09/22 22:31 Temperature 96.7 F L Temperature Source Temporal Pulse Rate 78 Respiratory Rate 14 Blood Pressure 123/73 H Blood Pressure Mean 89 Positive well nourished and well developed General Appearance ED: well developed and NAD HEENT normocephalic and atraumatic Eyes PERRL Neck full ROM General: Negative for tenderness Chest Wall inspection of chest normal Resp normal respiratory effort and clear to auscultation bilaterally Cardio regular rate, regular rhythm and no murmurs GI non-tender Palpation: soft Back/Spine Cervical Spine: Negative for cervical spine tenderness Thoracic Spine / Upper Back: Negative for thoracic spinal tenderness Extremity Extremity Narrative: Patient has diffuse right shoulder area tenderness. There is a little bit over the front of the shoulder. But most of this is over supraspinatus and infraspinatus. Neuro moves all extremities and no sensory deficits noted Sensorium / Orientation: alert Motor Exam: strength 5/5 throughout Psych mental status grossly normal Skin Skin Narrative: No signs of contusions abrasions or lacerations. Lesions: no lesions Rashes: no rashes MDM MDM MDM Narrative Medical decision making narrative: 4 view x-ray of the right shoulder looked at by me shows no sign of acute fracture or dislocation. There is a small osseous body in the soft tissue but this does not look acute as it is well circumscribed with a dense ring. Patient will use ice rest nonsteroidals. I will give her 1 oxycodone here to decrease the pain initially tonight. She is already about 4 5 days into this injury. She has been moving it well. I do not think a sling is needed and this may actually cause more stiffness than benefit. Discharge Plan Triage Chief Complaint: Upper Extremity Injury ED Provider: Ammon Valdez Dx/Rx/DC Orders Clinical Impression: Muscle strain of right shoulder region, Fall from slipping Instructions: ED Shoulder Sprain Prescriptions: New naproxen 500 MG tablet 500 mg PO BID Qty: 14 RF: 0 No Action albuterol sulfate 1 INHALER inhaler 2 puff INHALATION Q4H PRN PRN (Reason: Asthma) Qty: 0 RF: 0 pantoprazole 20 MG tablet 20 mg PO BID RF: 0 tizanidine [Zanaflex] 4 mg tablet 4 mg PO Q8H PRN (Reason: muscle spasticity) Qty: 14 RF: 0 Primary Care Provider: Yassine Link Referrals: Yassine Link MD [Primary Care Provider] - 1 Week if not improving Disposition Disposition: Home, Self Care
--- NOTE | 2022-03-09 22:47 | RAD_ITS ---
INDICATION: trauma EXAMINATION/TECHNIQUE: X-RAY - RIGHT XR Shoulder Min 2 Views 4 VIEWS COMPARISON: None. FINDINGS: SOFT TISSUES: No soft tissue swelling or gas. No radiopaque foreign body. BONES/JOINTS: No acute fracture or subluxation.. Normal alignment. Preservation of the joint space.. No sclerotic or destructive changes observed. There is incidental note of a calcified structure within the soft tissues along the posterior aspect of the shoulder. RAD/Shoulder min 2 Views IMPRESSION: 1. Negative. 2. Incidental note of dystrophic coarse calcification projecting in the soft tissues along the posterior aspect of the shoulder. Electronically Signed: Gabino Basurto MD at 23:08 EDT ,
[2022-03-09] MEDS: oxyCODONE 5 MG Tablet PO (23:19)
== END 2022-03-09 23:24 | disposition home or self-care (01) ==
PROVIDERS: Emergency Provider Emergency Medicine; PCP Internal Medicine; Visit Provider Emergency Medicine
DX: S46.911A Strain of unspecified muscle, fascia and tendon at shoulder and upper arm level, right arm, initial encounter (principal); W01.0XXA Fall on same level from slipping, tripping and stumbling without subsequent striking against object, initial encounter; X50.0XXA Overexertion from strenuous movement or load, initial encounter; Y93.89 Activity, other specified; F17.210 Nicotine dependence, cigarettes, uncomplicated
CPT/HCPCS: 73030; 99283

== ENCOUNTER 2022-05-30 11:03 | Emergency (ER) | payer MEDICAID, SELFPAY ==
[2022-05-30 11:03] VITALS: BP 151/138; PULSE 85; RESP 16; TEMP 37.1; O2SAT 98; BMI 34.0
--- NOTE | 2022-05-30 11:22 | US_ITS ---
STUDY: ABDOMINAL ULTRASOUND - RIGHT UPPER QUADRANT REASON FOR VISIT: Female, 36 years old PAIN -- INTERMITTENT RUQ PAIN TECHNIQUE: Ultrasound evaluation of the right upper quadrant was performed with real-time and static zhao-scale imaging. TECHNICAL QUALITY: Adequate. COMPARISON: None. FINDINGS: Liver: The liver measures 16.6 cm. There is normal echogenicity of the liver. The bile ducts are within normal limits. There is hepatic color flow. The direction of portal flow is hepatopetal. There is no demonstrated mass lesion. Gallbladder: Normal distended gallbladder. The gallbladder wall measures 2.7 mm. There is a negative sonographic Dave''s sign. There is no pericholecystic fluid. There are no gallstones. Common Bile Duct (C.B.D.): The common bile duct measures 2.6 mm. Pancreas: Normal size of the head, body and tail of the pancreas. There is normal echogenicity of the pancreas. There is no demonstrated pancreatic mass or cyst. Right Kidney: Normal size of the right kidney. The right kidney measures 10.8 cm x 5.1 cm x 4.2 cm. Normal renal cortex. The right cortex measures 1.7 cm. There is no demonstrated renal mass or cyst. There is no right hydronephrosis. US/Gallbladder IMPRESSION: Normal right upper quadrant ultrasound examination. Electronically Signed: Willy Hilliard MD at 13:17 EDT ,
--- NOTE | 2022-05-30 11:23 | EX.ED.DYSGE1 ---
HPI History of Present Illness Chief Complaint: Abd Pain Informant: patient Narrative Narrative: 36-year-old female states that this morning around 8:00 she was drinking coffee when she got a severe pain in her right upper quadrant of her abdomen. She notes nausea and notes that it radiates to her back. She states she had a similar incident about a week ago that resolved. She denies any urinary or stool changes. No fever. She has had prior hysterectomy and notes a history of IBS. PFSH PFSH Medical History Anxiety Depression GERD (gastroesophageal reflux disease) H/O thoracic outlet syndrome IBS (irritable bowel syndrome) Thoracic outlet syndrome Home Medications albuterol sulfate 90 mcg/actuation aerosol inhaler 2 puff inhalation Q4H PRN PRN Asthma ##0 05/03/16 [Rx Last Taken 11/17/18] pantoprazole 20 mg tablet,delayed release 20 mg PO BID 04/26/20 [History Last Taken Unknown] tizanidine 4 mg tablet (Zanaflex) 4 mg PO Q8H PRN muscle spasticity #14 tabs 11/26/21 [Rx Last Taken Unknown] naproxen 500 mg tablet 500 mg PO BID #14 tabs 03/09/22 [Rx Last Taken Unknown] lorazepam 0.5 mg tablet 0.5 tab PO QHS 05/30/22 [History Last Taken Unknown] paroxetine HCl 20 mg tablet 20 tab PO DAILY 05/30/22 [History Last Taken Unknown] sucralfate 1 gram tablet (Carafate) 1 g PO Q6H #56 tabs 05/30/22 [Rx Last Taken Unknown] Allergy/AdvReac Type Severity Reaction Status Date / Time benzonatate Allergy Rash Verified 05/30/22 11:05 [From Tessalon Perles] diazepam [From Valium] Allergy Hives Verified 05/30/22 11:05 morphine Allergy Itching Verified 05/30/22 11:05 Penicillins Allergy Hives Verified 05/30/22 11:05 venom-honey bee Allergy Hives Verified 05/30/22 11:05 [bee venom (honey bee)] Family History Father Heart disease Hypertension Myocardial infarction Mother Cancer lung, throat and Lupus Surgical History History of esophagogastroduodenoscopy (EGD) S/P breast biopsy S/P colonoscopy Status post hysterectomy Social History household members: none Smoking Status: Current every day smoker tobacco type: cigarettes alcohol intake: current alcohol intake frequency: holidays/special occasions only substance use type: marijuana caffeine: Yes what type of physical activity do you participate in: none seatbelt use: sometimes do you feel safe at home: Yes additional social history: Boyfriend-Sha- Works at [employer] Patient works at [employer] [facility] [employer] [employer] ED Constitutional Constitutional ED: Denies chills or weight loss Eyes Eyes: Denies change in vision or diplopia ENT ENT ED: Denies ear pain, rhinorrhea or sore throat Cardiovascular Cardiovascular: Denies chest pain, orthopnea, palpitations or racing heartbeat Respiratory/Chest Respiratory/Chest: Denies cough, dyspnea or orthopnea Gastrointestinal Gastrointestinal: Reports abdominal pain and nausea; Denies diarrhea or vomiting Genitourinary Genitourinary ED: Denies dysuria, hematuria or urinary frequency Musculoskeletal Musculoskeletal: Denies arthralgias or myalgias Integumentary Denies abscess or rash Neurologic Neurologic: Denies headache(s) or weakness Psychiatric Psychiatric: Denies anxiety, depression, suicidal ideation or suicidal thoughts Endocrine Endocrinology: Denies polydipsia, polyphagia or polyuria Allergic/Immunologic Allergic/Immunologic ED: Denies mouth swelling, tongue swelling or urticaria EXAM Physical Exam Const Vital Signs: 05/30/22 11:03 05/30/22 13:27 Temperature 98.7 F Temperature Source Temporal Pulse Rate 85 Respiratory Rate 16 14 Blood Pressure 151/138 H 136/75 H Blood Pressure Mean 142 95 Pulse Ox 98 Oxygen Delivery Method Room Air Positive well nourished and well developed General Appearance ED: well developed HEENT Reports normocephalic, head/scalp atraumatic and moist mucous membranes Eyes PERRL and EOMs intact bilaterally Neck no lymphadenopathy, supple and no JVD Resp normal respiratory effort and clear to auscultation bilaterally Cardio regular rate, regular rhythm and no murmurs GI GI Narrative: Tender to palpation in the right upper quadrant Inspection: Negative for abdominal distention Auscultation: normoactive bowel sounds Palpation: soft; Negative for guarding, splenomegaly, mass or rebound tenderness present Back/Spine no CVA tenderness and normal ROM Extremity normal to inspection General Extremety ED: Negative for edema General Extremity: Negative for edema Neuro oriented x3 and CN's II-XII intact bilaterally Sensorium / Orientation: alert Motor Exam: strength 5/5 throughout Psych mental status grossly normal Mood & Affect: Negative for depressed or tearful Skin no rashes or lesions noted and no wounds MDM MDM MDM Narrative Medical decision making narrative: White count 8.8 CMP and lipase were normal. Creatinine normal at 0.66. Gallbladder ultrasound was normal. Patient received Toradol and Zofran with no improvement in her symptoms. She also received IV fluids as well as some Bentyl. At this point I am not seeing a surgical abdomen. Work-up is reassuring. Patient does note that she has a gastric ulcer for which she takes Protonix. We can add some Carafate and see if that helps. Return if worsening or concerns Lab Data Attestation: I reviewed the patient's lab results. Labs: Laboratory Results - last 24 hr 05/30/22 05/30/22 12:02 12:02 WBC 8.8 RBC 4.69 Hgb 14.9 Hct 44.8 MCV 95.5 MCH 31.8 MCHC 33.3 RDW Std Deviation 44.1 H RDW Coeff of Reji 12.5 Plt Count 194 MPV 11.2 Immature Gran % (Auto) 0.300 Neut % (Auto) 54.5 Lymph % (Auto) 36.6 [place] % (Auto) 5.9 Eos % (Auto) 2.0 Baso % (Auto) 0.7 Absolute Neuts (auto) 4.8 Absolute Lymphs (auto) 3.22 Nucleated RBC % 0 Sodium 141 Potassium 4.2 Chloride 111 H Carbon Dioxide 28.0 Anion Gap 2 L BUN 10 Creatinine 0.66 Estim Creat Clear Calc 83.83 Est GFR (MDRD) Af Amer 130 Est GFR (MDRD) Non-Af 108 BUN/Creatinine Ratio 15.2 Glucose 89 Calcium 9.2 Total Bilirubin 0.20 Direct Bilirubin 0.10 AST 11 L ALT 23 Alkaline Phosphatase 77 Total Protein 7.1 Albumin 3.7 Globulin 3.4 Lipase 77 Radiography Diagnostic Testing: Clinical Impression(s) from Imaging Studies Gallbladder Ultrasound 05/30/22 11:22 IMPRESSION: Normal right upper quadrant ultrasound examination. Electronically Signed: Willy Hilliard MD at 13:17 EDT , Discharge Plan Triage Chief Complaint: Abd Pain ED Provider: Bartolo Giles Dx/Rx/DC Orders Clinical Impression: Abdominal pain Instructions: ED Abdominal Pain Unkn Cause Fem Prescriptions: New sucralfate [Carafate] 1 gram tablet 1 g PO Q6H Qty: 56 0RF No Action albuterol sulfate 1 INHALER inhaler 2 puff INHALATION Q4H PRN PRN (Reason: Asthma) Qty: 0 0RF Label Comments: asthma pantoprazole 20 MG tablet 20 mg PO BID tizanidine [Zanaflex] 4 mg tablet 4 mg PO Q8H PRN (Reason: muscle spasticity) Qty: 14 0RF naproxen 500 MG tablet 500 mg PO BID Qty: 14 0RF lorazepam 0.5 mg tablet 0.5 tab PO QHS paroxetine HCl 20 mg tablet 20 tab PO DAILY Primary Care Provider: Yassine Link Referrals: Yassine Link MD [Primary Care Provider] - 1-2 Days if not improving Disposition Disposition: Home, Self Care
[2022-05-30] MEDS: 0.9% Normal Saline 1,000 ML 1000 ML IV (11:57)
[2022-05-30] MEDS: Ketorolac 30 MG/ML Syringe IV (11:57)
[2022-05-30] MEDS: Ondansetron 4 MG/2 ML Vial IV (11:57)
[2022-05-30 12:08] LABS: Absolute Lymphocyte Count 3.22 X10^3/uL (0.83-4.51); Absolute Neutrophil Count 4.8 X10^3/uL (2.0-7.7); Basophil# 0.06 X10^3/uL; Basophil% 0.7 % (0-1); Eosinophil# 0.18 X10^3/uL; Hematocrit 44.8 % (37-47); Hemoglobin 14.9 g/dL (12.0-15.0); Lymphocyte # 3.22 X10^3/ul (0.83-4.51); Lymphocyte % 36.6 % (19-41); Mean Corp Hgb Conc 33.3 g/dL (32-36); Mean Corpuscular Hgb 31.8 pg (27.0-32.0); Mean Corpuscular Volume 95.5 fL (81-99); Mean Platelet Vol. 11.2 fl (6.2-12.0); Monocyte# 0.52 X10^3/uL; Monocyte% 5.9 % (0-10); NRBC Flagged by Analyzer 0 % (0-5); Neutrophil # 4.79 X10^3/uL (2.7-7.7); Neutrophil % 54.5 % (47-70); Platelet Count 194 K/mm3 (150-450); RBC Distribution Width CV 12.5 % (11.6-14.6); RBC Distribution Width SD 44.1 fl (35.1-43.9); Red Blood Count 4.69 M/mm3 (4.2-5.4); White Blood Count 8.8 K/mm3 (4.4-11.0)
[2022-05-30 12:25] LABS: AST(SGOT) 11 U/L (15-37); Alanine Aminotransfer ALT/SGPT 23 U/L (13-56); Albumin, Serum 3.7 g/dL (3.2-5.0); Alkaline Phosphatase 77 U/L (45-117); Anion Gap 2 (5-15); BUN 10 mg/dL (7-18); BUN/Creat Ratio 15.2 RATIO (10-20); Calcium,Total 9.2 mg/dL (8.5-10.1); Chloride 111 mmol/L (98-107); Creatinine, Serum 0.66 mg/dL (0.55-1.02); EST Glomerular Filtration Rate 108 mL/min (>60); Est Glom Filt Rate - Afr Amer 130 mL/min (>60); Estimated Creatinine Clearance 83.83 ml/min; Globulin 3.4 g/dL (2.2-4.2); Glucose 89 mg/dL (74-106); Lipase 77 U/L (73-393); Potassium 4.2 mmol/L (3.5-5.1); Protein, Total 7.1 g/dL (6.4-8.2); Sodium Level 141 mmol/L (136-145)
[2022-05-30] MEDS: Dicyclomine 10 MG Capsule 20 MG PO (13:26)
[2022-05-30 13:27] VITALS: BP 136/75; RESP 14
== END 2022-05-30 13:51 | disposition home or self-care (01) ==
PROVIDERS: Emergency Provider Emergency Medicine; PCP Internal Medicine; Visit Provider Emergency Medicine
DX: R10.11 Right upper quadrant pain (principal); R11.0 Nausea; K25.9 Gastric ulcer, unspecified as acute or chronic, without hemorrhage or perforation; K21.9 Gastro-esophageal reflux disease without esophagitis; K58.9 Irritable bowel syndrome, unspecified; F32.A Depression, unspecified; F41.9 Anxiety disorder, unspecified; F17.210 Nicotine dependence, cigarettes, uncomplicated; Z90.710 Acquired absence of both cervix and uterus; Z79.899 Other long term (current) drug therapy
CPT/HCPCS: 76705; 80048; 80076; 83690; 85025; 96361; 96374; 96375; 99283; J7030; A4216; J2405

== ENCOUNTER 2022-07-11 10:41 | Emergency (ER) | payer MEDICAID, SELFPAY ==
[2022-07-11 10:42] VITALS: BP 122/77; PULSE 76; RESP 17; TEMP 36.5; O2SAT 100; BMI 33.6
--- NOTE | 2022-07-11 11:18 | EKG12_ITS ---
Test Reason : CHEST PAIN Blood Pressure : / mmHG Vent. Rate : 063 BPM Atrial Rate : 063 BPM P-R Int : 160 ms QRS Dur : 074 ms QT Int : 376 ms P-R-T Axes : 042 024 036 degrees QTc Int : 384 ms Normal sinus rhythm Low voltage QRS Borderline ECG Confirmed by RIRI SAMANIEGO, CYDNEY ([id number]), editorial director JIMI CONNER ([id number]) on 07/13/2022 10:02:38 AM Referred By: HOOD Confirmed By:CYDENY MENEZES MD
--- NOTE | 2022-07-11 12:04 | EDS_ITS ---
HPI History of Present Illness Chief Complaint: Other, Pain/Inj Informant: patient Onset/Context/Timing Onset: Month(s) Context: Gradual Onset Timing: Continuous Quality: Sharp Location: Left neck and chest Worsened by: Lifting Relieved by: Nothing Narrative Narrative: Patient presents with neck pain has been constant for the last couple months. Patient states she was diagnosed with thoracic outlet syndrome and had surgery for this. Patient states her pain became worse over the last few days. Patient describes her pain as sharp. Patient states pain is over the left side of her neck and radiates into her chest. Patient states it is worse with lifting. Patient states nothing seems to help with it. Patient states she is scheduled to go back to pain management for further management of her pain. Patient is concerned today because the pain radiates into her chest and she wants to make sure her heart is okay. Prior similar symptoms: Yes PFSH PFSH Medical History Anxiety Depression GERD (gastroesophageal reflux disease) H/O thoracic outlet syndrome IBS (irritable bowel syndrome) Thoracic outlet syndrome Home Medications albuterol sulfate 90 mcg/actuation aerosol inhaler 2 puff inhalation Q4H PRN PRN Asthma ##0 05/03/16 [Rx Last Taken 11/17/18] pantoprazole 20 mg tablet,delayed release 20 mg PO BID 04/26/20 [History Last Taken Unknown] tizanidine 4 mg tablet (Zanaflex) 4 mg PO Q8H PRN muscle spasticity #14 tabs 11/26/21 [Rx Last Taken Unknown] naproxen 500 mg tablet 500 mg PO BID #14 tabs 03/09/22 [Rx Last Taken Unknown] lorazepam 0.5 mg tablet 0.5 tab PO QHS 05/30/22 [History Last Taken Unknown] paroxetine HCl 20 mg tablet 20 tab PO DAILY 05/30/22 [History Last Taken Unknown] sucralfate 1 gram tablet (Carafate) 1 g PO Q6H #56 tabs 05/30/22 [Rx Last Taken Unknown] hydrocodone-acetaminophen 5-325mg 5mg-325mg 1 tab PO Q6H PRN PRN Pain 3 days #10 TABLETS 07/11/22 [Rx Last Taken Unknown] Allergy/AdvReac Type Severity Reaction Status Date / Time benzonatate Allergy Rash Verified 07/11/22 10:41 [From Tessalon Perles] diazepam [From Valium] Allergy Hives Verified 07/11/22 10:41 morphine Allergy Itching Verified 07/11/22 10:41 Penicillins Allergy Hives Verified 07/11/22 10:41 venom-honey bee Allergy Hives Verified 07/11/22 10:41 [bee venom (honey bee)] Family History Father Heart disease Hypertension Myocardial infarction Mother Cancer lung, throat and Lupus Surgical History History of esophagogastroduodenoscopy (EGD) S/P breast biopsy S/P colonoscopy Status post hysterectomy Social History household members: none Smoking Status: Current every day smoker tobacco type: cigarettes alcohol intake: current alcohol intake frequency: holidays/special occasions only substance use type: marijuana caffeine: Yes what type of physical activity do you participate in: none seatbelt use: sometimes do you feel safe at home: Yes additional social history: Boyfriend-Sha- Works at [employer] Patient works at [employer] [facility] [employer] ED Constitutional Constitutional ED: Denies chills or fever(s) Eyes Eyes: Denies blurry vision or change in vision ENT ENT ED: Denies rhinorrhea or sore throat Cardiovascular Cardiovascular: Reports chest pain; Denies palpitations Respiratory/Chest Respiratory/Chest: Denies cough or dyspnea Gastrointestinal Gastrointestinal: Reports nausea; Denies vomiting Genitourinary Genitourinary ED: Denies dysuria or hematuria Musculoskeletal Musculoskeletal: Reports neck pain; Denies back pain Integumentary Denies abscess or rash Neurologic Neurologic: Denies headache(s) or weakness Allergic/Immunologic Allergic/Immunologic ED: Denies mouth swelling or urticaria EXAM Physical Exam Const Vital Signs: 07/11/22 10:42 Temperature 97.7 F L Temperature Source Temporal Pulse Rate 76 Respiratory Rate 17 Blood Pressure 122/77 H Blood Pressure Mean 92 Pulse Ox 100 Oxygen Delivery Method Room Air Positive well nourished and well developed General Appearance ED: well developed and NAD HEENT Reports moist mucous membranes Neck supple and no JVD Neck Narrative: There is tenderness over the left lateral paraspinal muscles. There is no bony crepitance or step-off. There is no midline tenderness. Range of motion was slightly limited in all motions of the cervical spine secondary to pain. Strength is 5/5 bilaterally in the upper and lower extremities. There are no sensory deficits noted. Radial pulses are equal bilaterally. Chest Wall Chest Narrative: There is some mild tenderness over the left upper chest. There is no bony crepitance or step-off. There is no edema or ecchymosis. Resp normal respiratory effort and clear to auscultation bilaterally Cardio regular rate, regular rhythm and no murmurs GI normal to inspection, nondistended, normoactive bowel sounds and non-tender Palpation: soft Extremity normal to inspection General Extremety ED: Negative for edema or tenderness General Extremity: Negative for edema Neuro oriented x3, CN's II-XII intact bilaterally and no sensory deficits noted Sensorium / Orientation: alert Motor Exam: strength 5/5 throughout Psych mental status grossly normal Skin no rashes or lesions noted MDM MDM MDM Narrative Medical decision making narrative: Because of the patient's concerns for cardiac etiology, EKG was obtained. On my interpretation, it showed a normal sinus rhythm with a rate of 65. NV interval, QRS interval, and QTc intervals were all normal. [place] was normal. There are no acute ST or T wave changes. Patient was given a dose of [place] here. Patient was given a prescription for a course of [place]. Patient was instructed use ice to the area. Patient was instructed to follow-up with her primary care physician and her pain management physician in 5 to 7 days for further evaluation and management. Patient understood and was agreeable with this plan. All questions were answered. EKG Initial EKG: Attestation: I personally reviewed and interpreted this EKG as follows: Interpretation: Sinus Rhythm (65) and No Acute Injury Pattern Prior EKG tracings: available for review Prior: Unchanged (04/26/2020) Discharge Plan Triage Chief Complaint: Other, Pain/Inj ED Provider: Jamarcus Persaud Dx/Rx/DC Orders Clinical Impression: Neck pain on left side, Thoracic outlet syndrome Instructions: ED Neck Pain, ED Pain Management: Chronic Prescriptions: New hydrocodone-acetaminophen [hydrocodone-acetaminophen] 1 TABLET tablet 1 tab PO Q6H PRN PRN (Reason: Pain) 3 Days Qty: 10 0RF No Action albuterol sulfate 1 INHALER inhaler 2 puff INHALATION Q4H PRN PRN (Reason: Asthma) Qty: 0 0RF Label Comments: asthma pantoprazole 20 MG tablet 20 mg PO BID tizanidine [Zanaflex] 4 mg tablet 4 mg PO Q8H PRN (Reason: muscle spasticity) Qty: 14 0RF naproxen 500 MG tablet 500 mg PO BID Qty: 14 0RF lorazepam 0.5 mg tablet 0.5 tab PO QHS paroxetine HCl 20 mg tablet 20 tab PO DAILY sucralfate [Carafate] 1 gram tablet 1 g PO Q6H Qty: 56 0RF Primary Care Provider: Yassine Link Referrals: Yassine Link MD [Primary Care Provider] - 5-7 Days Disposition Disposition: Home, Self Care
[2022-07-11] MEDS: HYDROcodone Bitartrate/Apap 5/325 Tablet PO (12:21)
[2022-07-11 12:22] VITALS: RESP 18
== END 2022-07-11 12:22 | disposition home or self-care (01) ==
PROVIDERS: Emergency Provider Emergency Medicine; PCP Internal Medicine; Visit Provider Emergency Medicine
DX: G54.0 Brachial plexus disorders (principal); R07.9 Chest pain, unspecified; F17.210 Nicotine dependence, cigarettes, uncomplicated; Z82.49 Family history of ischemic heart disease and other diseases of the circulatory system
CPT/HCPCS: 93005; 99284

== ENCOUNTER 2022-07-27 20:53 | Emergency (ER) | payer MEDICAID, SELFPAY ==
[2022-07-27 20:54] VITALS: BP 120/65; PULSE 73; RESP 15; TEMP 36.7; O2SAT 100; BMI 32.2
[2022-07-27 20:56] VITALS: BP 120/65; PULSE 73; RESP 15; TEMP 36.7; O2SAT 100
--- NOTE | 2022-07-27 21:35 | EX.ED.DYSGE1 ---
HPI History of Present Illness Chief Complaint: Complaint Informant: patient Narrative Narrative: Complains of having another urinary tract infection for the past month. She states she has not seen anyone for this. But then she states she did just see a bladder specialist a week ago. She was placed on oxybutynin again. But this has not helped. Her symptoms or frequency. But she does not have dysuria. Sometimes the urine has a strong odor but not always. No fevers chills or sweats. She was concerned today because she has more back pain. It looks like she takes meds for her back all the time. She is on gabapentin routinely. She gets oxycodone or hydrocodone occasionally. She has been on Zanaflex. She has no specific injury to her back. But she does do lifting all day at work. No numbness tingling weakness. No incontinence. Her bladder symptoms actually predate this back pain. She states she started with the frequent urinations after her hysterectomy in 2015. She was on oxybutynin for a while but then was off of it. She states she has never been checked for diabetes. She also has an appointment with her physician tomorrow for this problem. [facility] Medical History Anxiety Depression GERD (gastroesophageal reflux disease) H/O thoracic outlet syndrome IBS (irritable bowel syndrome) Thoracic outlet syndrome Home Medications albuterol sulfate 90 mcg/actuation aerosol inhaler 2 puff inhalation Q4H PRN PRN Asthma ##0 05/03/16 [Rx Last Taken 11/17/18] pantoprazole 20 mg tablet,delayed release 20 mg PO BID 04/26/20 [History Last Taken Unknown] tizanidine 4 mg tablet (Zanaflex) 4 mg PO Q8H PRN muscle spasticity #14 tabs 11/26/21 [Rx Last Taken Unknown] naproxen 500 mg tablet 500 mg PO BID #14 tabs 03/09/22 [Rx Last Taken Unknown] lorazepam 0.5 mg tablet 0.5 tab PO QHS 05/30/22 [History Last Taken Unknown] paroxetine HCl 20 mg tablet 20 tab PO DAILY 05/30/22 [History Last Taken Unknown] sucralfate 1 gram tablet (Carafate) 1 g PO Q6H #56 tabs 05/30/22 [Rx Last Taken Unknown] hydrocodone-acetaminophen 5-325mg 5mg-325mg 1 tab PO Q6H PRN PRN Pain 3 days #10 TABLETS 07/11/22 [Rx Last Taken Unknown] phenazopyridine 200 mg tablet (Pyridium) 200 mg PO TID #10 tabs 07/27/22 [Rx Last Taken Unknown] Allergy/AdvReac Type Severity Reaction Status Date / Time benzonatate Allergy Rash Verified 07/27/22 20:56 [From Tessalon Perles] diazepam [From Valium] Allergy Hives Verified 07/27/22 20:56 morphine Allergy Itching Verified 07/27/22 20:56 Penicillins Allergy Hives Verified 07/27/22 20:56 venom-honey bee Allergy Hives Verified 07/27/22 20:56 [bee venom (honey bee)] Family History Father Heart disease Hypertension Myocardial infarction Mother Cancer lung, throat and Lupus Surgical History History of esophagogastroduodenoscopy (EGD) S/P breast biopsy S/P colonoscopy Status post hysterectomy Social History household members: none Smoking Status: Current every day smoker tobacco type: cigarettes alcohol intake: current alcohol intake frequency: holidays/special occasions only substance use type: marijuana caffeine: Yes what type of physical activity do you participate in: none seatbelt use: sometimes do you feel safe at home: Yes additional social history: Boyfriend-Sha- Works at [employer] Patient works at [employer] ED Constitutional Constitutional ED: Denies chills, fever(s) or sweats ENT ENT ED: Denies rhinorrhea or sore throat Cardiovascular Cardiovascular: Denies chest pain or palpitations Respiratory/Chest Respiratory/Chest: Denies cough or dyspnea Gastrointestinal Gastrointestinal: Reports abdominal pain and other Details: Pressure in the suprapubic area. No other areas of pain. She is eating and drinking normally without any problems or exacerbation. ; Denies constipation, diarrhea, melena, nausea or vomiting Genitourinary Genitourinary ED: Reports urinary frequency; Denies dysuria or hematuria Musculoskeletal Musculoskeletal: Reports back pain; Denies arthralgias or myalgias Integumentary Denies rash Neurologic Neurologic: Denies paresthesias or weakness Psychiatric Psychiatric: Reports anxiety and depression Hematologic/Lymphatic Hematologic/Lymphatic: Denies easy bleeding or easy bruising Allergic/Immunologic Allergic/Immunologic ED: Denies urticaria EXAM Physical Exam Const Vital Signs: 07/27/22 20:54 07/27/22 20:56 07/27/22 23:07 Temperature 98.1 F 98.1 F Temperature Source Temporal Temporal Pulse Rate 73 73 78 Respiratory Rate 15 15 18 Blood Pressure 120/65 120/65 Blood Pressure Mean 83 83 Pulse Ox 100 100 99 Oxygen Delivery Method Room Air Room Air Room Air Positive well nourished and well developed General Appearance ED: well developed and NAD; Negative for cyanotic or diaphoretic HEENT Reports moist mucous membranes Eyes General Eye ED: Negative for scleral icterus Chest Wall inspection of chest normal Resp normal respiratory effort Effort and Inspection: Negative for retractions or pain with movement Auscultation: Negative for rales, rhonchi or wheezes Cardio regular rate and regular rhythm GI normal to inspection, nondistended, normoactive bowel sounds and non-tender GI Narrative: Patient has suprapubic discomfort. However, there is no tenderness on exam. Inspection: Negative for abdominal distention Palpation: soft Back/Spine no CVA tenderness Back/Spine Narrative: Patient had Fuhs mild paraspinal tenderness with soft touch up and down the lumbar spine and both sides. This is not isolated CVA tenderness. There are no rashes or skin changes. Extremity normal to inspection General Extremety ED: Negative for edema or tenderness General Extremity: Negative for edema Neuro Sensorium / Orientation: alert Skin no rashes or lesions noted MDM MDM MDM Narrative Medical decision making narrative: Patient's urine shows 0-5 white cells 0 red cells. There are some bacteria. But it is not clear. Negative nitrites and negative leukocyte esterase. I will send it for culture but we will not treat with antibiotics. BG T was 90. Patient's been having the symptoms off and on for 6 years. I think this might be urgency related to her prior hysterectomy. She has follow-up with her family doctor and urologist. We will try her on a short course of Pyridium to see if that helps. She has a history of some back pain and she has reproducible back pain with gentle palpation and range of motion. I do not think this is CVA pain nor is it related to her urinary symptoms Lab Data Labs: Laboratory Results - last 24 hr 07/27/22 21:30 Urine Color Yellow Urine Clarity Clear Urine pH 6.0 Ur Specific [place] 1.020 Urine Protein Negative Urine Glucose (UA) Normal Urine Ketones Negative Urine Occult Blood Negative Urine Nitrite Negative Urine Bilirubin Negative Urine Urobilinogen Normal Ur Leukocyte Esterase Negative Urine RBC 0 SEEN Urine WBC 0-5 SEEN Ur Squamous Epith Cells 0-5 SEEN Urine Bacteria 4+ Urine Mucus 0 SEEN Discharge Plan Triage Chief Complaint: Complaint ED Provider: Ammon Valdez Dx/Rx/DC Orders Clinical Impression: Frequency of urination, Lumbar back pain Instructions: Overactive Bladder Syndrome (OAB) Prescriptions: New phenazopyridine [Pyridium] 200 mg tablet 200 mg PO TID Qty: 10 0RF No Action albuterol sulfate 1 INHALER inhaler 2 puff INHALATION Q4H PRN PRN (Reason: Asthma) Qty: 0 0RF Label Comments: asthma pantoprazole 20 MG tablet 20 mg PO BID tizanidine [Zanaflex] 4 mg tablet 4 mg PO Q8H PRN (Reason: muscle spasticity) Qty: 14 0RF naproxen 500 MG tablet 500 mg PO BID Qty: 14 0RF lorazepam 0.5 mg tablet 0.5 tab PO QHS paroxetine HCl 20 mg tablet 20 tab PO DAILY sucralfate [Carafate] 1 gram tablet 1 g PO Q6H Qty: 56 0RF hydrocodone-acetaminophen [hydrocodone-acetaminophen] 1 TABLET tablet 1 tab PO Q6H PRN PRN (Reason: Pain) 3 Days Qty: 10 0RF Primary Care Provider: Yassine Link Referrals: Yassine Link MD [Primary Care Provider] - [facility] appointment Disposition Disposition: Home, Self Care
[2022-07-27 21:38] LABS: Mucous, Urine 0 SEEN /hpf (<or=2+); Red Blood Cells-Urine 0 SEEN /hpf (0-5)
[2022-07-27 22:00] LABS: Color, Urine Yellow (Yellow); Glucose, Dipstick Normal (Normal); Ketone-Dipstick Negative (Negative); Leukocyte Esterase-Dipstick Negative /ul (Negative); Nitrite-Dipstick Negative (Negative); Occult Blood-Urine Negative /ul (Negative); Protein-Dipstick Negative (Negative); Urine Bilirubin Dipstick Negative (Negative); Urine Clarity Clear (Clear); Urine Urobilinogen Normal (Normal)
[2022-07-27 22:12] LABS: Bacteria 4+ /hpf (None Seen); Squamous Epithelial Cells - UA 0-5 SEEN /hpf (5-10); White Blood Cells 0-5 SEEN /hpf (0-5)
[2022-07-27 23:07] VITALS: PULSE 78; RESP 18; O2SAT 99
[2022-07-27 23:20] LABS: Bedside Glucose 90 mg/dL (74-106)
[2022-07-27] MEDS: Phenazopyridine 95 MG Tablet 190 MG PO (23:21)
[2022-07-27 23:23] VITALS: PULSE 77; RESP 17; O2SAT 99
== END 2022-07-27 23:24 | disposition home or self-care (01) ==
PROVIDERS: Emergency Provider Emergency Medicine; PCP Internal Medicine; Visit Provider Emergency Medicine
DX: R35.0 Frequency of micturition (principal); F32.A Depression, unspecified; F41.9 Anxiety disorder, unspecified; K21.9 Gastro-esophageal reflux disease without esophagitis; G54.0 Brachial plexus disorders; K58.9 Irritable bowel syndrome, unspecified; Z79.899 Other long term (current) drug therapy; F17.210 Nicotine dependence, cigarettes, uncomplicated; M54.50 Low back pain, unspecified
CPT/HCPCS: 81001; 82962; 87077; 87086; 87088; 87186; 99283; A4216

== ENCOUNTER 2022-09-16 18:10 | Emergency (ER) | payer MEDICAID, SELFPAY ==
[2022-09-16 18:11] VITALS: BP 127/89; PULSE 98; RESP 16; TEMP 36.7; O2SAT 98; BMI 32.2
--- NOTE | 2022-09-16 18:41 | ED.VIS.GI ---
HPI HPI - GI History of Present Illness Chief Complaint: GI Bleed Informant: patient Narrative Narrative: Rectal bleeding slight this morning however increased at work. Known hemorrhoid. No anticoagulation medicines. Having pain. States bleeding through her pants. No lightheaded symptoms. She has had colonoscopies in the past due to IBS performed with Dr. Patel. Prior similar symptoms: Yes PFSH PFSH Medical History Anxiety Depression GERD (gastroesophageal reflux disease) H/O thoracic outlet syndrome IBS (irritable bowel syndrome) Thoracic outlet syndrome Home Medications albuterol sulfate 90 mcg/actuation aerosol inhaler 2 puff inhalation Q4H PRN PRN Asthma ##0 05/03/16 [Rx Last Taken 11/17/18] pantoprazole 20 mg tablet,delayed release 20 mg PO BID 04/26/20 [History Last Taken Unknown] naproxen 500 mg tablet 500 mg PO BID #14 tabs 03/09/22 [Rx Last Taken Unknown] lorazepam 0.5 mg tablet 0.5 tab PO QHS 05/30/22 [History Last Taken Unknown] paroxetine HCl 20 mg tablet 20 tab PO DAILY 05/30/22 [History Last Taken Unknown] phenazopyridine 200 mg tablet (Pyridium) 200 mg PO TID #10 tabs 07/27/22 [Rx Last Taken Unknown] cranberry fruit concentrate 250 mg chewable tablet (Azo Cranberry) 250 mg PO BID 08/03/22 [History Last Taken Unknown] imiquimod 5 % topical cream packet 1 applic topical .COMPLEX #12 ea 08/03/22 [Rx Last Taken Unknown] dibucaine 1 % rectal ointment 1 applic AR TID PRN hemorrhoids #56 grams 09/16/22 [Rx Last Taken Unknown] docusate sodium 100 mg capsule (Colace) 100 mg PO BID #60 caps 09/16/22 [Rx Last Taken Unknown] hydrocortisone 2.5 % topical cream with perineal applicator (Anusol-HC) 1 applic AR BID PRN hemorrhoids #30 grams 09/16/22 [Rx Last Taken Unknown] Allergy/AdvReac Type Severity Reaction Status Date / Time benzonatate Allergy Rash Verified 09/16/22 18:11 [From Tessalon Perles] diazepam [From Valium] Allergy Hives Verified 09/16/22 18:11 morphine Allergy Itching Verified 09/16/22 18:11 Penicillins Allergy Hives Verified 09/16/22 18:11 venom-honey bee Allergy Hives Verified 09/16/22 18:11 [bee venom (honey bee)] Family History Father Heart disease Hypertension Myocardial infarction Mother Cancer lung, throat and Lupus Surgical History History of esophagogastroduodenoscopy (EGD) S/P breast biopsy S/P colonoscopy Status post hysterectomy Social History household members: none Smoking Status: Current every day smoker tobacco type: cigarettes alcohol intake: current alcohol intake frequency: holidays/special occasions only substance use type: marijuana caffeine: Yes what type of physical activity do you participate in: none seatbelt use: sometimes do you feel safe at home: Yes additional social history: Boyfriend-Sha- Works at [employer] Patient works at [facility] [employer] [facility] [employer] ROS ROS ED Constitutional Constitutional ED: Denies chills, fever(s) or sweats Eyes Eyes: Denies change in vision ENT ENT ED: Denies dysphagia or sore throat Cardiovascular Cardiovascular: Denies chest pain, leg edema, palpitations or racing heartbeat Respiratory/Chest Respiratory/Chest: Denies cough, dyspnea or dyspnea on exertion Gastrointestinal Gastrointestinal: Reports other Details: Rectal bleeding ; Denies abdominal pain, diarrhea, nausea or vomiting Genitourinary Genitourinary ED: Denies dysuria, hematuria or urinary frequency Musculoskeletal Musculoskeletal: Denies back pain, extremity pain or neck pain Integumentary Denies rash or wounds Neurologic Neurologic: Denies headache(s), paresthesias or weakness EXAM Physical Exam Const Vital Signs: 09/16/22 18:11 Temperature 98.1 F Temperature Source Temporal Pulse Rate 98 Respiratory Rate 16 Blood Pressure 127/89 H Blood Pressure Mean 101 Pulse Ox 98 Oxygen Delivery Method Room Air Positive well nourished and well developed General Appearance ED: well developed and NAD HEENT Reports moist mucous membranes normocephalic and atraumatic Eyes PERRL, EOMs intact bilaterally and conjunctivae normal General Eye ED: Yes normal appearance of both eyes Neck no lymphadenopathy and supple General: Negative for tenderness Chest Wall Chest: Negative for tenderness Resp normal respiratory effort and normal air movement Effort and Inspection: symmetric chest movement; Negative for respiratory distress Cardio regular rate, regular rhythm and no murmurs Peripheral Pulses: pulses 2+ throughout GI normal to inspection, nondistended, normoactive bowel sounds and non-tender GI Narrative: Nursing present for rectal exam, there is noted 1.5 cm hemorrhoid right lateral, there was open section with small clot, there is no active bleeding. No fissures. Hemorrhoid was not firm. Palpation: Negative for guarding or rebound tenderness present Back/Spine no CVA tenderness and no thoracic nor lumbar tenderness Extremity normal to inspection General Extremety ED: Negative for edema or tenderness General Extremity: Negative for edema Neuro oriented x3 and no sensory deficits noted Sensorium / Orientation: awake and alert Skin no rashes or lesions noted and no wounds MDM MDM MDM Narrative Medical decision making narrative: Patient nonthrombosed rectal hemorrhoid bleeding is now controlled. She has seen surgeon Dr. Patel in the past. She is placed on stool softeners, Anusol cream, Dibucaine topical for pain control. She will follow-up as an outpatient for definitive treatment if needed. Return precautions. Discharge Plan Triage Chief Complaint: GI Bleed ED Provider: Orville Cummings Dx/Rx/DC Orders Clinical Impression: Bleeding external hemorrhoids, Pain in rectum Instructions: ED Hemorrhoids Prescriptions: New docusate sodium [Colace] 100 mg capsule 100 mg PO BID Qty: 60 0RF hydrocortisone [Anusol-HC] 2.5 % cream with perineal applicator 1 applic AR BID PRN (Reason: hemorrhoids) Qty: 30 0RF dibucaine 1 % ointment 1 applic AR TID PRN (Reason: hemorrhoids) Qty: 56 0RF No Action Azo Cranberry 250 mg tablet,chewable 250 mg PO BID imiquimod 5 % cream in packet 1 applic topical .COMPLEX Qty: 12 1RF Rx Instructions: 1 applic topical 3 times per week up to 16 weeks; albuterol sulfate 1 INHALER inhaler 2 puff INHALATION Q4H PRN PRN (Reason: Asthma) Qty: 0 0RF Label Comments: asthma pantoprazole 20 MG tablet 20 mg PO BID naproxen 500 MG tablet 500 mg PO BID Qty: 14 0RF lorazepam 0.5 mg tablet 0.5 tab PO QHS paroxetine HCl 20 mg tablet 20 tab PO DAILY phenazopyridine [Pyridium] 200 mg tablet 200 mg PO TID Qty: 10 0RF Primary Care Provider: Yassine Link Referrals: Florin Patel MD [Med Staff - Active Staff] - 1-2 Weeks Yassine Link MD [Primary Care Provider] - Activity Restrictions/Additional Instructions: Initial bleeding hemorrhoids controlled, medication as prescribed. Follow-up with Dr. Patel as you seen him in the past for outpatient evaluation. Disposition Disposition: Home, Self Care Discharge Date/Time: 09/16/22 18:53
== END 2022-09-16 18:53 | disposition home or self-care (01) ==
PROVIDERS: Emergency Provider Emergency Medicine; PCP Internal Medicine; Visit Provider Emergency Medicine
DX: K64.4 Residual hemorrhoidal skin tags (principal); F17.210 Nicotine dependence, cigarettes, uncomplicated
CPT/HCPCS: 99282

== ENCOUNTER 2022-09-26 11:12 | Emergency (ER) | payer MEDICAID, SELFPAY ==
[2022-09-26 11:13] VITALS: BP 117/86; PULSE 89; RESP 14; TEMP 36.2; O2SAT 100; BMI 33.0
--- NOTE | 2022-09-26 11:28 | CT_ITS ---
STUDY: CT ABDOMEN AND PELVIS WITH CONTRAST REASON FOR EXAM: Female, 36 years old. 3 day history of right lower quadrant pain with nausea. RADIATION DOSAGE (If Supplied By Facility): CTDIvol = ( 14.13 ) mGy, DLP = ( 838.32 ) mGycm TECHNIQUE: Transaxial images were obtained from the dome of the diaphragm to the symphysis pubis with oral contrast. Oral and amp; IV Gastrografin and amp; 100mL Isovue-300 was administered. Sagittal and coronal images were reconstructed. Individualized dose optimization techniques were used for this CT. COMPARISON: Comparison is made with prior study dated 08/01/2021. FINDINGS: The visualized lung bases are unremarkable. The visualized portions of the heart are within normal limits. Normal liver. Normal gallbladder and extrahepatic biliary system. Normal spleen. Normal pancreas. Normal bilateral adrenal glands. Normal right kidney. Normal left kidney. Normal visualized stomach. Normal small intestine. Normal colon. The appendix is visualized and appears normal. Normal abdominal aorta. Normal inferior vena cava. Normal retroperitoneum. Normal urinary bladder. There is absence of the uterus consistent with a prior hysterectomy. There is a 1.2 cm follicle in the right ovary. Normal abdominal wall. Loss of the normal lumbar lordosis. CT/Abdomen/Pelvis WITH Contrast IMPRESSION: Normal enhanced CT of the abdomen and pelvis. Electronically Signed: Willy Hilliard MD at 14:13 EDT ,
--- NOTE | 2022-09-26 11:29 | EDS_ITS ---
HPI History of Present Illness Chief Complaint: Abd Pain Informant: patient Onset/Context/Timing Onset: Days (3 days) Context: Gradual Onset Current Severity: Moderate Maximum Severity: Moderate Narrative Narrative: Patient presents with suprapubic and right lower quadrant pain for the past 3 days. She denies fever or chills. She had nausea but no vomiting. No urinary symptoms. She was recently treated for external hemorrhoids and is currently on a stool softener. [facility] Medical History (Updated 09/26/22 @ 14:[address] Carol Gillis MD) Anxiety Depression GERD (gastroesophageal reflux disease) H/O thoracic outlet syndrome IBS (irritable bowel syndrome) Thoracic outlet syndrome Home Medications albuterol sulfate 90 mcg/actuation aerosol inhaler 2 puff inhalation Q4H PRN PRN Asthma ##0 05/03/16 [Rx Last Taken 11/17/18] pantoprazole 20 mg tablet,delayed release 20 mg PO BID 04/26/20 [History Last Taken Unknown] naproxen 500 mg tablet 500 mg PO BID #14 tabs 03/09/22 [Rx Last Taken Unknown] paroxetine HCl 20 mg tablet 20 tab PO DAILY 05/30/22 [History Last Taken Unknown] phenazopyridine 200 mg tablet (Pyridium) 200 mg PO TID #10 tabs 07/27/22 [Rx Last Taken Unknown] cranberry fruit concentrate 250 mg chewable tablet (Azo Cranberry) 250 mg PO BID 08/03/22 [History Last Taken Unknown] imiquimod 5 % topical cream packet 1 applic topical .COMPLEX #12 ea 08/03/22 [Rx Last Taken Unknown] dibucaine 1 % rectal ointment 1 applic [place] TID PRN hemorrhoids #56 grams 09/16/22 [Rx Last Taken Unknown] docusate sodium 100 mg capsule (Colace) 100 mg PO BID #60 caps 09/16/22 [Rx Last Taken Unknown] hydrocortisone 2.5 % topical cream with perineal applicator (Anusol-HC) 1 applic [place] BID PRN hemorrhoids #30 grams 09/16/22 [Rx Last Taken Unknown] oxycodone-acetaminophen 5 mg-325 mg tablet (Percocet) 1 tab PO Q6H PRN pain 3 days #10 tabs 09/26/22 [Rx Last Taken Unknown] Allergy/AdvReac Type Severity Reaction Status Date / Time benzonatate Allergy Rash Verified 09/26/22 11:15 [From Tessalon Perles] diazepam [From Valium] Allergy Hives Verified 09/26/22 11:15 morphine Allergy Itching Verified 09/26/22 11:15 Penicillins Allergy Hives Verified 09/26/22 11:15 venom-honey bee Allergy Hives Verified 09/26/22 11:15 [bee venom (honey bee)] Family History Father Heart disease Hypertension Myocardial infarction Mother Cancer lung, throat and Lupus Surgical History History of esophagogastroduodenoscopy (EGD) History of left oophorectomy S/P breast biopsy S/P colonoscopy Status post hysterectomy Social History household members: none Smoking Status: Current every day smoker tobacco type: cigarettes alcohol intake: current alcohol intake frequency: holidays/special occasions only substance use type: marijuana caffeine: Yes what type of physical activity do you participate in: none seatbelt use: sometimes do you feel safe at home: Yes additional social history: Boyfriend-Sha- Works at [employer] Patient works at [employer] [facility] ED Constitutional Constitutional ED: Denies chills or fever(s) Eyes Eyes: Denies change in vision or discharge from eye(s) ENT ENT ED: Denies discharge from eye(s), rhinorrhea or sore throat Cardiovascular Cardiovascular: Denies chest pain or palpitations Respiratory/Chest Respiratory/Chest: Denies cough or dyspnea Gastrointestinal Gastrointestinal: Reports abdominal pain and nausea; Denies diarrhea or vomiting Genitourinary Genitourinary ED: Denies difficulty urinating or dysuria Musculoskeletal Musculoskeletal: Denies back pain or extremity pain Integumentary Denies Abrasions or rash Neurologic Neurologic: Denies headache(s) or weakness Allergic/Immunologic Allergic/Immunologic ED: Denies lip swelling or urticaria EXAM Physical Exam Const Vital Signs: 09/26/22 11:13 Temperature 97.1 F L Temperature Source Temporal Pulse Rate 89 Respiratory Rate 14 Blood Pressure 117/86 H Blood Pressure Mean 96 Pulse Ox 100 Oxygen Delivery Method Room Air Positive well nourished and well developed General Appearance ED: well developed HEENT Reports normocephalic and head/scalp atraumatic Eyes PERRL and EOMs intact bilaterally Neck supple Chest Wall inspection of chest normal and palpation of chest normal Resp normal respiratory effort and clear to auscultation bilaterally Cardio regular rate and regular rhythm GI GI Narrative: Right lower quadrant tenderness palpation. No guarding or rebound. Auscultation: hypoactive bowel sounds Palpation: soft Extremity normal to inspection Neuro oriented x3 and no sensory deficits noted Sensorium / Orientation: alert Motor Exam: strength 5/5 throughout Psych mental status grossly normal Skin no rashes or lesions noted MDM MDM MDM Narrative Medical decision making narrative: Patient was given Dilaudid and Zofran. Lab work obtained along with urinalysis and CT scan of the abdomen and pelvis. Lab Data Attestation: I reviewed the patient's lab results. Labs: Laboratory Results - last 24 hr 09/26/22 09/26/22 09/26/22 11:35 11:53 11:53 WBC 11.0 RBC 4.73 Hgb 15.7 H Hct 44.6 MCV 94.3 MCH 33.2 H MCHC 35.2 RDW Std Deviation 41.7 RDW Coeff of Reji 12.0 Plt Count 182 MPV 11.0 Immature Gran % (Auto) 0.900 Neut % (Auto) 53.3 Lymph % (Auto) 36.8 [place] % (Auto) 6.2 Eos % (Auto) 2.1 Baso % (Auto) 0.7 Absolute Neuts (auto) 5.8 Absolute Lymphs (auto) 4.03 Nucleated RBC % 0 Platelet Estimate ADEQUATE RBC Morphology NORM C+C Sodium 138 Potassium 4.3 Chloride 107 Carbon Dioxide 25.0 Anion Gap 6 BUN 10 Creatinine 0.60 Estim Creat Clear Calc 92.21 Est GFR (MDRD) Af Amer 145 Est GFR (MDRD) Non-Af 120 BUN/Creatinine Ratio 16.7 Glucose 87 Calcium 9.0 Urine Color Yellow Urine Clarity Sl. Cloudy Urine pH 8.0 Ur Specific [place] 1.015 Urine Protein Negative Urine Glucose (UA) Normal Urine Ketones Negative Urine Occult Blood Negative Urine Nitrite Negative Urine Bilirubin Negative Urine Urobilinogen Normal Ur Leukocyte Esterase Negative Urine RBC 0 SEEN Urine WBC 0-5 SEEN Ur Squamous Epith Cells 5-10 SEEN Amorphous Sediment 1+ Urine Bacteria RARE Urine Mucus 0 SEEN Treatment and Re-Evaluation Narrative: CBC was normal white count. Hemoglobin is slightly concentrated at 15.7. Chemistry studies normal. Urinalysis reveals no acute infection. CT scan of the abdomen and pelvis reveals normal CT scan abdomen and pelvis. Appendix is visualized and appears normal. There is a 1.2 cm follicle in the right ovary. Test results discussed with the patient. I will treat her with a short course of Percocet for pain control. She will continue on her stool softeners as she did have recent hemorrhoid flare. Discharge Plan Triage Chief Complaint: Abd Pain ED Provider: Carol Gillis Dx/Rx/DC Orders Clinical Impression: Abdominal pain Instructions: ED Abdominal Pain Unkn Cause Fem Prescriptions: New oxycodone-acetaminophen [Percocet] 5-325 mg tablet 1 tab PO Q6H PRN (Reason: pain) 3 Days Qty: 10 0RF No Action Azo Cranberry 250 mg tablet,chewable 250 mg PO BID imiquimod 5 % cream in packet 1 applic topical .COMPLEX Qty: 12 1RF Rx Instructions: 1 applic topical 3 times per week up to 16 weeks; albuterol sulfate 1 INHALER inhaler 2 puff INHALATION Q4H PRN PRN (Reason: Asthma) Qty: 0 0RF Label Comments: asthma pantoprazole 20 MG tablet 20 mg PO BID naproxen 500 MG tablet 500 mg PO BID Qty: 14 0RF paroxetine HCl 20 mg tablet 20 tab PO DAILY phenazopyridine [Pyridium] 200 mg tablet 200 mg PO TID Qty: 10 0RF docusate sodium [Colace] 100 mg capsule 100 mg PO BID Qty: 60 0RF hydrocortisone [Anusol-HC] 2.5 % cream with perineal applicator 1 applic [place] BID PRN (Reason: hemorrhoids) Qty: 30 0RF dibucaine 1 % ointment 1 applic OH TID PRN (Reason: hemorrhoids) Qty: 56 0RF Primary Care Provider: Yassine Link Referrals: Yassine Link MD [Primary Care Provider] - 1 Week if not improving Disposition Disposition: Home, Self Care
[2022-09-26 11:41] LABS: Mucous, Urine 0 SEEN /hpf (<or=2+); Red Blood Cells-Urine 0 SEEN /hpf (0-5)
[2022-09-26 11:43] LABS: Color, Urine Yellow (Yellow); Glucose, Dipstick Normal (Normal); Ketone-Dipstick Negative (Negative); Leukocyte Esterase-Dipstick Negative /ul (Negative); Nitrite-Dipstick Negative (Negative); Occult Blood-Urine Negative /ul (Negative); Protein-Dipstick Negative (Negative); Specific Gravity, Urine 1.015 (1.002-1.030); Urine Bilirubin Dipstick Negative (Negative); Urine Clarity Sl. Cloudy (Clear); Urine Urobilinogen Normal (Normal)
[2022-09-26 11:52] LABS: Amorphous Sediment 1+; Bacteria RARE /hpf (None Seen); Squamous Epithelial Cells - UA 5-10 SEEN /hpf (5-10); White Blood Cells 0-5 SEEN /hpf (0-5)
[2022-09-26] MEDS: HYDROmorphone 1 MG/ML Syringe 0.5 MG IV (12:04)
[2022-09-26] MEDS: Ondansetron 4 MG/2 ML Vial IV (12:04)
[2022-09-26] MEDS: 0.9% Normal Saline 1,000 ML 150 ML IV (12:04)
[2022-09-26 12:07] LABS: Absolute Lymphocyte Count 4.03 X10^3/uL (0.83-4.51); Absolute Neutrophil Count 5.8 X10^3/uL (2.0-7.7); Basophil# 0.08 X10^3/uL; Basophil% 0.7 % (0-1); Eosinophil# 0.23 X10^3/uL; Eosinophils% 2.1 % (0-5); Hematocrit 44.6 % (37-47); Hemoglobin 15.7 g/dL (12.0-15.0); Lymphocyte # 4.03 X10^3/ul (0.83-4.51); Lymphocyte % 36.8 % (19-41); Mean Corp Hgb Conc 35.2 g/dL (32-36); Mean Corpuscular Hgb 33.2 pg (27.0-32.0); Mean Corpuscular Volume 94.3 fL (81-99); Monocyte# 0.68 X10^3/uL; Monocyte% 6.2 % (0-10); NRBC Flagged by Analyzer 0 % (0-5); Neutrophil # 5.84 X10^3/uL (2.7-7.7); Neutrophil % 53.3 % (47-70); POSITIVE MORPHOLOGY YES; Platelet Count 182 K/mm3 (150-450); RBC Distribution Width SD 41.7 fl (35.1-43.9); Red Blood Count 4.73 M/mm3 (4.2-5.4)
[2022-09-26 12:09] LABS: Differential Indicated SCAN CRITERIA MET
[2022-09-26 12:21] LABS: Anion Gap 6 (5-15); BUN 10 mg/dL (7-18); BUN/Creat Ratio 16.7 RATIO (10-20); Chloride 107 mmol/L (98-107); EST Glomerular Filtration Rate 120 mL/min (>60); Est Glom Filt Rate - Afr Amer 145 mL/min (>60); Estimated Creatinine Clearance 92.21 ml/min; Glucose 87 mg/dL (74-106); Potassium 4.3 mmol/L (3.5-5.1); Sodium Level 138 mmol/L (136-145)
[2022-09-26 12:38] LABS: Platelet Estimate ADEQUATE (ADEQ); Red Cell Morphology NORM C+C NORMAL (NORM C&C)
[2022-09-26 13:12] VITALS: RESP 18
[2022-09-26 14:27] VITALS: RESP 16
== END 2022-09-26 14:33 | disposition home or self-care (01) ==
PROVIDERS: Emergency Provider Emergency Medicine; PCP Internal Medicine; Visit Provider Emergency Medicine
DX: R10.31 Right lower quadrant pain (principal); K64.4 Residual hemorrhoidal skin tags; F17.210 Nicotine dependence, cigarettes, uncomplicated; Z90.710 Acquired absence of both cervix and uterus; Z90.721 Acquired absence of ovaries, unilateral
CPT/HCPCS: 74177; 80048; 81001; 85025; 96361; 96374; 96375; 99283; J7030; Q9967; A4216; J2405

== ENCOUNTER 2022-10-21 21:50 | Emergency (ER) | payer MEDICAID, SELFPAY ==
[2022-10-21 21:51] VITALS: BP 131/75; PULSE 77; RESP 18; TEMP 36.4; O2SAT 100; BMI 34.1
[2022-10-21 21:53] VITALS: BP 131/75; PULSE 78; RESP 16; TEMP 36.4; O2SAT 100
--- NOTE | 2022-10-22 00:16 | US_ITS ---
STUDY: ULTRASOUND TRANSVAGINAL CLINICAL: Female, 36 years old. right ovarian cyst, increased pain TECHNIQUE: Transvaginal COMPARISON: None. FINDINGS: Normal right ovary, measuring 2.7 x 2.7 x 1.9 cm. There are multiple follicles without a dominant cyst. Normal blood flow to the right ovary. The uterus and left ovary are not visualized. There is no free fluid in the pelvis. US/Transvaginal Non- IMPRESSION: Normal blood flow to the right ovary. Electronically Signed: Rose Brito MD at 1:39 EST ,
--- NOTE | 2022-10-22 00:17 | EX.ED.DYSGE1 ---
HPI History of Present Illness Chief Complaint: Abd Pain Informant: patient Narrative Narrative: Patient presents with increased pain from her ovarian cyst. She has a known right ovarian cyst and has been following with Dr. Cunningham. She is currently on oxycodone and Aleve. She had increased pain tonight and is unable to get comfortable. [facility] Medical History Anxiety Depression GERD (gastroesophageal reflux disease) H/O thoracic outlet syndrome IBS (irritable bowel syndrome) Thoracic outlet syndrome Home Medications albuterol sulfate 90 mcg/actuation aerosol inhaler 2 puff inhalation Q4H PRN PRN Asthma ##0 05/03/16 [Rx Last Taken 11/17/18] pantoprazole 20 mg tablet,delayed release 20 mg PO BID 04/26/20 [History Last Taken Unknown] naproxen 500 mg tablet 500 mg PO BID #14 tabs 03/09/22 [Rx Last Taken Unknown] paroxetine HCl 20 mg tablet 20 tab PO DAILY 05/30/22 [History Last Taken Unknown] phenazopyridine 200 mg tablet (Pyridium) 200 mg PO TID #10 tabs 07/27/22 [Rx Last Taken Unknown] cranberry fruit concentrate 250 mg chewable tablet (Azo Cranberry) 250 mg PO BID 08/03/22 [History Last Taken Unknown] imiquimod 5 % topical cream packet 1 applic topical .COMPLEX #12 ea 08/03/22 [Rx Last Taken Unknown] dibucaine 1 % rectal ointment 1 applic [place] TID PRN hemorrhoids #56 grams 09/16/22 [Rx Last Taken Unknown] docusate sodium 100 mg capsule (Colace) 100 mg PO BID #60 caps 09/16/22 [Rx Last Taken Unknown] hydrocortisone 2.5 % topical cream with perineal applicator (Anusol-HC) 1 applic [place] BID PRN hemorrhoids #30 grams 09/16/22 [Rx Last Taken Unknown] oxycodone-acetaminophen 5 mg-325 mg tablet (Percocet) 1 tab PO Q6H PRN pain 3 days #10 tabs 09/26/22 [Rx Last Taken Unknown] Allergy/AdvReac Type Severity Reaction Status Date / Time benzonatate Allergy Rash Verified 09/26/22 11:15 [From Tessalon Perles] diazepam [From Valium] Allergy Hives Verified 09/26/22 11:15 morphine Allergy Itching Verified 09/26/22 11:15 Penicillins Allergy Hives Verified 09/26/22 11:15 venom-honey bee Allergy Hives Verified 09/26/22 11:15 [bee venom (honey bee)] Family History Father Heart disease Hypertension Myocardial infarction Mother Cancer lung, throat and Lupus Surgical History History of esophagogastroduodenoscopy (EGD) History of left oophorectomy S/P breast biopsy S/P colonoscopy Status post hysterectomy Social History household members: none Smoking Status: Current every day smoker tobacco type: cigarettes alcohol intake: current alcohol intake frequency: holidays/special occasions only substance use type: marijuana caffeine: Yes what type of physical activity do you participate in: none seatbelt use: sometimes do you feel safe at home: Yes additional social history: Boyfriend-Sha- Works at [employer] Patient works at [facility] [employer] ROS ROS ED Constitutional Constitutional ED: Denies chills or fever(s) Eyes Eyes: Denies change in vision or discharge from eye(s) ENT ENT ED: Denies discharge from eye(s), rhinorrhea or sore throat Cardiovascular Cardiovascular: Denies chest pain or palpitations Respiratory/Chest Respiratory/Chest: Denies cough or dyspnea Gastrointestinal Gastrointestinal: Reports abdominal pain; Denies diarrhea, nausea or vomiting Genitourinary Genitourinary ED: Denies difficulty urinating or dysuria Musculoskeletal Musculoskeletal: Reports back pain; Denies extremity pain Integumentary Denies Abrasions or rash Neurologic Neurologic: Denies headache(s) or weakness Psychiatric Psychiatric: Denies anxiety or depression Allergic/Immunologic Allergic/Immunologic ED: Denies lip swelling or urticaria EXAM Physical Exam Const Vital Signs: 10/21/22 21:51 10/21/22 21:53 Temperature 97.6 F L 97.6 F L Temperature Source Temporal Temporal Pulse Rate 77 78 Respiratory Rate 18 16 Blood Pressure 131/75 H 131/75 H Blood Pressure Mean 93 93 Pulse Ox 100 100 Oxygen Delivery Method Room Air Room Air Positive well nourished and well developed General Appearance ED: well developed HEENT Reports normocephalic and head/scalp atraumatic Eyes PERRL and EOMs intact bilaterally Neck supple Chest Wall inspection of chest normal and palpation of chest normal Resp normal respiratory effort and clear to auscultation bilaterally Cardio regular rate and regular rhythm GI GI Narrative: Mild tenderness right lower quadrant. No guarding or rebound. Hypoactive bowel sounds. Palpation: soft Back/Spine no CVA tenderness Extremity normal to inspection Neuro oriented x3 and no sensory deficits noted Sensorium / Orientation: alert Motor Exam: strength 5/5 throughout Psych mental status grossly normal Skin no rashes or lesions noted MDM MDM MDM Narrative Medical decision making narrative: Patient given Dilaudid IM for pain control. Pelvic ultrasound performed. Radiography Diagnostic Testing: Clinical Impression(s) from Imaging Studies Transvaginal US 10/22/22 00:16 IMPRESSION: Normal blood flow to the right ovary. Electronically Signed: Rose Brito MD at 1:39 EST , Treatment and Re-Evaluation Narrative: Pelvic ultrasound reveals normal flow to the right ovary. Multiple follicles are noted but no large cyst. No free fluid noted. Test results discussed with the patient. She will continue her current treatment regimen and follow-up with Dr. Cunningham on as scheduled. Discharge Plan Triage Chief Complaint: Abd Pain ED Provider: Carol Gillis Dx/Rx/DC Orders Clinical Impression: Pelvic pain Instructions: ED Pelvic Pain, Unknown Cause Prescriptions: No Action Azo Cranberry 250 mg tablet,chewable 250 mg PO BID imiquimod 5 % cream in packet 1 applic topical .COMPLEX Qty: 12 1RF Rx Instructions: 1 applic topical 3 times per week up to 16 weeks; albuterol sulfate 1 INHALER inhaler 2 puff INHALATION Q4H PRN PRN (Reason: Asthma) Qty: 0 0RF Label Comments: asthma pantoprazole 20 MG tablet 20 mg PO BID naproxen 500 MG tablet 500 mg PO BID Qty: 14 0RF paroxetine HCl 20 mg tablet 20 tab PO DAILY phenazopyridine [Pyridium] 200 mg tablet 200 mg PO TID Qty: 10 0RF docusate sodium [Colace] 100 mg capsule 100 mg PO BID Qty: 60 0RF hydrocortisone [Anusol-HC] 2.5 % cream with perineal applicator 1 applic [place] BID PRN (Reason: hemorrhoids) Qty: 30 0RF dibucaine 1 % ointment 1 applic OH TID PRN (Reason: hemorrhoids) Qty: 56 0RF oxycodone-acetaminophen [Percocet] 5-325 mg tablet 1 tab PO Q6H PRN (Reason: pain) 3 Days Qty: 10 0RF Primary Care Provider: Yassine Link Referrals: Logan Cunningham MD [Non-Staff] - Keep Chris appointment Yassine Link MD [Primary Care Provider] - Disposition Disposition: Home, Self Care
[2022-10-22] MEDS: HYDROmorphone 1 MG/ML Syringe IM (00:27)
[2022-10-22 02:27] VITALS: BP 116/82; PULSE 57; RESP 16; O2SAT 99
== END 2022-10-22 02:28 | disposition home or self-care (01) ==
PROVIDERS: Emergency Provider Emergency Medicine; PCP Internal Medicine; Visit Provider Emergency Medicine
DX: R10.2 Pelvic and perineal pain (principal); N83.209 Unspecified ovarian cyst, unspecified side; F12.90 Cannabis use, unspecified, uncomplicated; F17.210 Nicotine dependence, cigarettes, uncomplicated
CPT/HCPCS: 76830; 93976; 96372; 99282

== ENCOUNTER 2022-12-01 09:52 | Emergency (ER) | payer MEDICAID, SELFPAY ==
[2022-12-01 09:53] VITALS: BP 101/86; PULSE 89; RESP 16; TEMP 36.2; O2SAT 99; BMI 33.4
--- NOTE | 2022-12-01 10:14 | EX.ED.UPPERE ---
HPI History of Present Illness Chief Complaint: Upper Extremity Injury Narrative Narrative: 37-year-old female presents with exacerbation of her chronic left shoulder/trapezial pain. She relays history that she had thoracic outlet syndrome and had surgery at the [facility] 2 years ago. Even though she had her first rib removed and the surgery, she continues to have chronic left shoulder pain. She is right-hand dominant. She states she currently takes a muscle relaxer and prednisone for her pain. Additionally, she states that she occasionally receives oxycodone. She had a fall around [facility], 3 weeks ago. Yesterday, she had an x-ray performed as an outpatient and states that she does not have a shoulder fracture. She has pain when she moves her left arm and in her left trapezial area. This is the same pain that she has had from before. She has an appointment with her thoracic surgeon on the , approximately 1 week from now. [facility] Medical History Anxiety Depression GERD (gastroesophageal reflux disease) H/O thoracic outlet syndrome IBS (irritable bowel syndrome) Left shoulder strain Thoracic outlet syndrome Home Medications albuterol sulfate 90 mcg/actuation aerosol inhaler 2 puff inhalation Q4H PRN PRN Asthma ##0 05/03/16 [Rx Last Taken 11/17/18] pantoprazole 20 mg tablet,delayed release 20 mg PO BID 04/26/20 [History Last Taken Unknown] naproxen 500 mg tablet 500 mg PO BID #14 tabs 03/09/22 [Rx Last Taken Unknown] paroxetine HCl 20 mg tablet 20 tab PO DAILY 05/30/22 [History Last Taken Unknown] phenazopyridine 200 mg tablet (Pyridium) 200 mg PO TID #10 tabs 07/27/22 [Rx Last Taken Unknown] cranberry fruit concentrate 250 mg chewable tablet (Azo Cranberry) 250 mg PO BID 08/03/22 [History Last Taken Unknown] imiquimod 5 % topical cream packet 1 applic topical .COMPLEX #12 ea 08/03/22 [Rx Last Taken Unknown] dibucaine 1 % rectal ointment 1 applic DC TID PRN hemorrhoids #56 grams 09/16/22 [Rx Last Taken Unknown] docusate sodium 100 mg capsule (Colace) 100 mg PO BID #60 caps 09/16/22 [Rx Last Taken Unknown] hydrocortisone 2.5 % topical cream with perineal applicator (Anusol-HC) 1 applic DC BID PRN hemorrhoids #30 grams 09/16/22 [Rx Last Taken Unknown] oxycodone-acetaminophen 5 mg-325 mg tablet (Percocet) 1 tab PO Q6H PRN pain 3 days #10 tabs 09/26/22 [Rx Last Taken Unknown] cyclobenzaprine 10 mg tablet 10 mg PO TID PRN muscle spasm #20 tabs 11/30/22 [Rx Last Taken Unknown] prednisone 10 mg tablet 10 mg PO DIRECTED #30 tabs 11/30/22 [Rx Last Taken Unknown] Allergy/AdvReac Type Severity Reaction Status Date / Time benzonatate Allergy Rash Verified 12/01/22 09:53 [From Tessalon Perles] diazepam [From Valium] Allergy Hives Verified 12/01/22 09:53 morphine Allergy Itching Verified 12/01/22 09:53 Penicillins Allergy Hives Verified 12/01/22 09:53 venom-honey bee Allergy Hives Verified 12/01/22 09:53 [bee venom (honey bee)] Family History Father Heart disease Hypertension Myocardial infarction Mother Cancer lung, throat and Lupus Surgical History History of esophagogastroduodenoscopy (EGD) History of left oophorectomy S/P breast biopsy S/P colonoscopy Status post hysterectomy Social History household members: none Smoking Status: Current every day smoker tobacco type: cigarettes alcohol intake: current alcohol intake frequency: holidays/special occasions only substance use type: marijuana caffeine: Yes what type of physical activity do you participate in: none seatbelt use: sometimes do you feel safe at home: Yes additional social history: Boyfriend-Sha- Works at [employer] Patient works at [employer] ROS ROS ED ROS Narrative Constitutional: No fever, no chills. HEENT: No sore throat. No neck pain. No loss of vision. No rhinorrhea. Cardiovascular: No chest pain. No palpitations. No pedal edema. Respiratory: No cough, no shortness of breath. Abdominal: No abdominal pain. No nausea. No vomiting. Genitourinary: No dysuria. No hematuria. Musculoskeletal: No myalgias. Left shoulder and left trapezial pain. Neurologic: No headaches. No dizziness. No lightheadedness. Skin: No rash. No change in color. Psychiatric: No depression. No anxiety. EXAM Physical Exam Narrative Exam Narrative: Afebrile. Vital signs noted. HEENT: Normocephalic. Atraumatic. PERRL, EOMI. Neck soft and supple. No point tenderness or step off. Cardiovascular: Regular rate and rhythm. No murmurs, rubs, or gallops appreciated. Respiratory: No tachypnea. Lungs clear to auscultation bilaterally. Gastrointestinal: Abdomen soft, nontender, with normoactive bowel sounds. No rebound or guarding. Neurological: Awake. Alert. Nonfocal, nonlateralizing. Skin: No rash. Normal color. No pallor. Musculoskeletal: No pedal edema. Full range of motion extremities. No clinical dislocation left shoulder. Pain out of proportion left trapezial area. Neurovascular intact distally with palpable radial pulse. Const Vital Signs: 12/01/22 09:53 Temperature 97.1 F L Temperature Source Temporal Pulse Rate 89 Respiratory Rate 16 Blood Pressure 101/86 H Blood Pressure Mean 91 Pulse Ox 99 Oxygen Delivery Method Room Air MDM MDM MDM Narrative Medical decision making narrative: I reviewed the patient's prior EMR and provider notes. This is a chronic pain that she has had and been seen in the emergency department previously. I also reviewed her outpatient x-ray which shows no evidence of fracture or dislocation. I interpreted this and agree with the outpatient radiologist read. I discussed with her the use of Valium and we had agreed on that as a muscle relaxer instead, but in review of her allergies, she states that she gets hives from that and neglected to tell me that. I will give her 1 dose of oxycodone orally here. I do not feel that intramuscular narcotic analgesia is indicated for her chronic pain. She will continue her other medications and follow-up with thoracic surgery. I do not feel that a prescription for narcotic pain medication is indicated. She was also referred to pain management to see as needed. I do not feel that any laboratory work or imaging is indicated currently as she just had an x-ray performed yesterday. I feel she be discharged safely home with follow-up. Return instructions were reviewed. Disposition is discharged home in stable condition. Discharge Plan Triage Chief Complaint: Upper Extremity Injury ED Provider: Pk Churchill Dx/Rx/DC Orders Clinical Impression: Chronic left shoulder pain, History of thoracic outlet syndrome, Chronic pain Instructions: ED Chronic Pain Prescriptions: No Action Azo Cranberry 250 mg tablet,chewable 250 mg PO BID imiquimod 5 % cream in packet 1 applic topical .COMPLEX Qty: 12 1RF Rx Instructions: 1 applic topical 3 times per week up to 16 weeks; cyclobenzaprine 10 mg tablet 10 mg PO TID PRN (Reason: muscle spasm) Qty: 20 0RF prednisone 10 mg tablet 10 mg PO DIRECTED Qty: 30 0RF Rx Instructions: 4 tablets daily x3 days, then 3 tablets daily x3 days, then 2 tablets daily x3 days, then 1 tablets daily x3 days albuterol sulfate 1 INHALER inhaler 2 puff INHALATION Q4H PRN PRN (Reason: Asthma) Qty: 0 0RF Label Comments: asthma pantoprazole 20 MG tablet 20 mg PO BID naproxen 500 MG tablet 500 mg PO BID Qty: 14 0RF paroxetine HCl 20 mg tablet 20 tab PO DAILY phenazopyridine [Pyridium] 200 mg tablet 200 mg PO TID Qty: 10 0RF docusate sodium [Colace] 100 mg capsule 100 mg PO BID Qty: 60 0RF hydrocortisone [Anusol-HC] 2.5 % cream with perineal applicator 1 applic DC BID PRN (Reason: hemorrhoids) Qty: 30 0RF dibucaine 1 % ointment 1 applic DC TID PRN (Reason: hemorrhoids) Qty: 56 0RF oxycodone-acetaminophen [Percocet] 5-325 mg tablet 1 tab PO Q6H PRN (Reason: pain) 3 Days Qty: 10 0RF Primary Care Provider: Yassine Link Referrals: Jeferson Velazquez MD [Med Staff - Active Staff] - As Needed Yassine Link MD [Primary Care Provider] - As soon as possible Disposition Disposition: Home, Self Care
[2022-12-01] MEDS: oxyCODONE 5 MG Tablet PO (10:20)
[2022-12-01 10:27] VITALS: BP 108/67; PULSE 71; RESP 15; O2SAT 98
== END 2022-12-01 10:28 | disposition home or self-care (01) ==
PROVIDERS: Emergency Provider Emergency Medicine; PCP Internal Medicine; Visit Provider Emergency Medicine
DX: M25.512 Pain in left shoulder (principal); G89.29 Other chronic pain; F17.210 Nicotine dependence, cigarettes, uncomplicated
CPT/HCPCS: 99282

== ENCOUNTER 2022-12-30 14:48 | Emergency (ER) | payer MEDICAID, SELFPAY ==
[2022-12-30 14:52] VITALS: BP 120/70; PULSE 83; RESP 14; TEMP 36.1; O2SAT 100; BMI 33.4
--- NOTE | 2022-12-30 15:31 | EDS_ITS ---
HPI History of Present Illness Chief Complaint: Upper Extremity Injury Detail of Chief Complaint: Left upper shoulder region pain Informant: patient Occured/Mechanism Comment: Postop complications due to thoracic outlet syndrome surgery 2 years ago. Onset/Context/Timing Onset: - (2 years) Timing: Continuous and Waxes and wanes Quality of Pain: Aching Location: Left shoulder region with tingling in the left upper extremity Current Severity: Moderate Maximum Severity: Severe Worsened by: Use, palpation Relieved by: Nothing Associated Symptoms Associated Symptoms: Positive for Parasthesia; Negative for Weakness or Loss of Funtion Narrative Narrative: Patient is a 37-year-old woman with history of thoracic outlet syndrome who underwent surgery 2 years ago. She has had complications and is believed to have neurogenic thoracic outlet syndrome per office notes from outside facility. She is scheduled to see pain management later this month and MRI of her shoulder. Patient denies fever, chills night sweats. Patient denies respiratory or cardiac symptoms. Patient denies loss of use of her left upper extremity. She is on a weight restriction of 15 pounds for work. She is a smoker. There is no history of new trauma. Tetanus Immunization: Unknown Prior similar symptoms: Yes Recent Illness/Hospitalization: Yes [facility] Medical History Anxiety Depression GERD (gastroesophageal reflux disease) H/O thoracic outlet syndrome IBS (irritable bowel syndrome) Left shoulder strain Thoracic outlet syndrome Home Medications albuterol sulfate 90 mcg/actuation aerosol inhaler 2 puff inhalation Q4H PRN PRN Asthma ##0 05/03/16 [Rx Last Taken 11/17/18] pantoprazole 20 mg tablet,delayed release 20 mg PO BID 04/26/20 [History Last Taken Unknown] naproxen 500 mg tablet 500 mg PO BID #14 tabs 03/09/22 [Rx Last Taken Unknown] paroxetine HCl 20 mg tablet 20 tab PO DAILY 05/30/22 [History Last Taken Unknown] phenazopyridine 200 mg tablet (Pyridium) 200 mg PO TID #10 tabs 07/27/22 [Rx Last Taken Unknown] cranberry fruit concentrate 250 mg chewable tablet (Azo Cranberry) 250 mg PO BID 08/03/22 [History Last Taken Unknown] imiquimod 5 % topical cream packet 1 applic topical .COMPLEX #12 ea 08/03/22 [Rx Last Taken Unknown] dibucaine 1 % rectal ointment 1 applic AL TID PRN hemorrhoids #56 grams 09/16/22 [Rx Last Taken Unknown] docusate sodium 100 mg capsule (Colace) 100 mg PO BID #60 caps 09/16/22 [Rx Last Taken Unknown] hydrocortisone 2.5 % topical cream with perineal applicator (Anusol-HC) 1 applic AL BID PRN hemorrhoids #30 grams 09/16/22 [Rx Last Taken Unknown] oxycodone-acetaminophen 5 mg-325 mg tablet (Percocet) 1 tab PO Q6H PRN pain 3 days #10 tabs 09/26/22 [Rx Last Taken Unknown] cyclobenzaprine 10 mg tablet 10 mg PO TID PRN muscle spasm #20 tabs 11/30/22 [Rx Last Taken Unknown] prednisone 10 mg tablet 10 mg PO DIRECTED #30 tabs 11/30/22 [Rx Last Taken Unknown] hydrocodone-acetaminophen 5-325mg 5mg-325mg 1 tab PO Q6H PRN PRN Pain 3 days #10 TABLETS 12/30/22 [Rx Last Taken Unknown] Allergy/AdvReac Type Severity Reaction Status Date / Time benzonatate Allergy Rash Verified 12/30/22 14:52 [From Tessalon Perles] diazepam [From Valium] Allergy Hives Verified 12/30/22 14:52 morphine Allergy Itching Verified 12/30/22 14:52 Penicillins Allergy Hives Verified 12/30/22 14:52 venom-honey bee Allergy Hives Verified 12/30/22 14:52 [bee venom (honey bee)] Family History Father Heart disease Hypertension Myocardial infarction Mother Cancer lung, throat and Lupus Surgical History History of esophagogastroduodenoscopy (EGD) History of left oophorectomy S/P breast biopsy S/P colonoscopy Status post hysterectomy Social History household members: none Smoking Status: Current every day smoker tobacco type: cigarettes alcohol intake: current alcohol intake frequency: holidays/special occasions only substance use type: marijuana caffeine: Yes what type of physical activity do you participate in: none seatbelt use: sometimes do you feel safe at home: Yes additional social history: Boyfriend-Sha- Works at [employer] Patient works at [employer] ROS ROS ED Constitutional Constitutional ED: Denies chills, fever(s), subjective, sweats or weight loss Eyes Eyes: Denies blurry vision, change in vision or diplopia ENT ENT ED: Denies ear pain, rhinorrhea or sore throat Cardiovascular Cardiovascular: Denies chest pain, orthopnea, palpitations, paroxysmal nocturnal dyspnea or racing heartbeat Respiratory/Chest Respiratory/Chest: Denies cough, dyspnea, dyspnea on exertion, orthopnea, paroxysmal nocturnal dyspnea or sputum Gastrointestinal Gastrointestinal: Reports nausea and vomiting Neurologic Neurologic: Reports paresthesias LUE; Denies headache(s) or weakness Hematologic/Lymphatic Hematologic/Lymphatic: Denies easy bleeding, easy bruising or lymphadenopathy EXAM Physical Exam Const Vital Signs: 12/30/22 14:52 Temperature 97 F L Temperature Source Temporal Pulse Rate 83 Respiratory Rate 14 Blood Pressure 120/70 Blood Pressure Mean 86 Pulse Ox 100 Oxygen Delivery Method Room Air Positive well nourished, well developed and obese General Appearance ED: well developed; Negative for cyanotic or diaphoretic Nutritional Appearance: obese HEENT Reports moist mucous membranes HEENT Narrative: Ears normal. Nares patent. Uvula midline. No deviation with protrusion. Posterior pharynx is normal. normocephalic and atraumatic Eyes PERRL and EOMs intact bilaterally Neck full ROM and supple Neck Narrative: There is pain palpation over the left paracervical and trapezius area as well as deltoid region. She also complains of pain in the supraclavicular area. There is a well-healed noted. Chest Wall inspection of chest normal and palpation of chest normal Resp normal respiratory effort and clear to auscultation bilaterally Cardio regular rate and regular rhythm Back/Spine no CVA tenderness Cervical Spine: Negative for cervical spine tenderness and other Other Details: Previously mentioned under the neck portion of the chart. Thoracic Spine / Upper Back: Negative for thoracic spinal tenderness Lumbar Spine / Lower Back: Negative for lumbar spinal tenderness Extremity normal to inspection Extremity Narrative: Axillary, median, radial and ulnar function intact. Bicep, brachialis and tricep reflex are 2-3+ and symmetric. Radial pulses 2+ and symmetric. Negative drop test. She is able to AB duct past 90 degrees. She complains of pain past 90 degrees. Neuro oriented x3, CN's II-XII intact bilaterally, moves all extremities, no focal motor deficits and no sensory deficits noted Neuro Narrative: Reflex portion of the neurologic exam documented under the extremity portion of the chart Sensorium / Orientation: alert Psych Psych Narrative: Patient has an exaggerated response to tactile stimulus. Mood & Affect: Negative for anxious or tearful Skin General Skin Exam: Negative for petechiae Lesions: no lesions Rashes: no rashes Trauma: Negative for abrasion MDM MDM MDM Narrative Medical decision making narrative: Patient with chronic shoulder pain. Patient is scheduled for outpatient MRI and referral to pain management, Dr. Yang. Outside records were reviewed. There is no indication for radiologic imaging i.e. plain x-ray, CAT scan and as previously mentioned patient is scheduled for MRI because of concern for neurogenic thoracic outlet syndrome complications as a result of corrective surgery. Presently there is no neurovascular findings. Will treat patient's pain and discharged with short course of pain management. She is presently on Lyrica, prednisone, NSAIDs and muscle relaxant. She was instructed to use ice. Discharge Plan Triage Chief Complaint: Upper Extremity Injury ED Provider: Grant Mercado Dx/Rx/DC Orders Clinical Impression: Chronic pain in left shoulder, History of thoracic outlet syndrome, Depression Instructions: ED Chronic Pain Prescriptions: New hydrocodone-acetaminophen [hydrocodone-acetaminophen] 5-325 mg tablet 1 tab PO Q6H PRN PRN (Reason: Pain) 3 Days Qty: 10 0RF No Action Azo Cranberry 250 mg tablet,chewable 250 mg PO BID imiquimod 5 % cream in packet 1 applic topical .COMPLEX Qty: 12 1RF Rx Instructions: 1 applic topical 3 times per week up to 16 weeks; cyclobenzaprine 10 mg tablet 10 mg PO TID PRN (Reason: muscle spasm) Qty: 20 0RF prednisone 10 mg tablet 10 mg PO DIRECTED Qty: 30 0RF Rx Instructions: 4 tablets daily x3 days, then 3 tablets daily x3 days, then 2 tablets daily x3 days, then 1 tablets daily x3 days albuterol sulfate 1 INHALER inhaler 2 puff INHALATION Q4H PRN PRN (Reason: Asthma) Qty: 0 0RF Label Comments: asthma pantoprazole 20 MG tablet 20 mg PO BID naproxen 500 MG tablet 500 mg PO BID Qty: 14 0RF paroxetine HCl 20 mg tablet 20 tab PO DAILY phenazopyridine [Pyridium] 200 mg tablet 200 mg PO TID Qty: 10 0RF docusate sodium [Colace] 100 mg capsule 100 mg PO BID Qty: 60 0RF hydrocortisone [Anusol-HC] 2.5 % cream with perineal applicator 1 applic AL BID PRN (Reason: hemorrhoids) Qty: 30 0RF dibucaine 1 % ointment 1 applic AL TID PRN (Reason: hemorrhoids) Qty: 56 0RF oxycodone-acetaminophen [Percocet] 5-325 mg tablet 1 tab PO Q6H PRN (Reason: pain) 3 Days Qty: 10 0RF Primary Care Provider: Yassine Link Referrals: Adonis Bar MD [Med Staff - Active Staff] - Keep [facility] appointment Yassine Link MD [Primary Care Provider] - Keep [facility] appointment Disposition Disposition: Home, Self Care
[2022-12-30] MEDS: HYDROcodone Bitartrate/Apap 5/325 Tablet PO (15:38)
== END 2022-12-30 15:45 | disposition home or self-care (01) ==
PROVIDERS: Emergency Provider Emergency Medicine; PCP Internal Medicine; Visit Provider Emergency Medicine
DX: M25.512 Pain in left shoulder (principal); G89.29 Other chronic pain; G54.0 Brachial plexus disorders; F32.A Depression, unspecified; F17.210 Nicotine dependence, cigarettes, uncomplicated; E66.9 Obesity, unspecified; Z68.33 Body mass index [BMI] 33.0-33.9, adult
CPT/HCPCS: 99283

== ENCOUNTER 2023-02-24 13:08 | Emergency (ER) | payer MEDICAID, SELFPAY ==
[2023-02-24 13:09] VITALS: BP 123/80; PULSE 86; RESP 16; TEMP 36.3; O2SAT 100; BMI 34.2
--- NOTE | 2023-02-24 13:23 | ED.VIS.BACK ---
HPI History of Present Illness Chief Complaint: Back Detail of Chief Complaint: Back pain/neck pain Informant: patient Narrative Narrative: Patient presents with neck and upper back pain that she had for over 4 months. Patient tells me that she has been seen by her primary care physician. She had an MRI recently and is scheduled to see a back surgeon March 07. Patient also has been the pain management and they attempted steroids and they talk to her about performing a injection in her neck but they wanted to wait until they saw the back surgeon. Patient also was written for Percocet by primary care physician and she took her last one today but she is having hard time managing her pain. She denies new injuries. She denies weakness to the extremities. She denies fevers. Prior similar symptoms: Yes PFSH PFSH Medical History Anxiety Depression GERD (gastroesophageal reflux disease) H/O thoracic outlet syndrome IBS (irritable bowel syndrome) Left shoulder strain Thoracic outlet syndrome Home Medications albuterol sulfate 90 mcg/actuation aerosol inhaler 2 puff inhalation Q4H PRN PRN Asthma ##0 05/03/16 [Rx Last Taken 11/17/18] pantoprazole 20 mg tablet,delayed release 20 mg PO BID 04/26/20 [History Last Taken Unknown] naproxen 500 mg tablet 500 mg PO BID #14 tabs 03/09/22 [Rx Last Taken Unknown] paroxetine HCl 20 mg tablet 20 tab PO DAILY 05/30/22 [History Last Taken Unknown] phenazopyridine 200 mg tablet (Pyridium) 200 mg PO TID #10 tabs 07/27/22 [Rx Last Taken Unknown] cranberry fruit concentrate 250 mg chewable tablet (Azo Cranberry) 250 mg PO BID 08/03/22 [History Last Taken Unknown] imiquimod 5 % topical cream packet 1 applic topical .COMPLEX #12 ea 08/03/22 [Rx Last Taken Unknown] dibucaine 1 % rectal ointment 1 applic PA TID PRN hemorrhoids #56 grams 09/16/22 [Rx Last Taken Unknown] docusate sodium 100 mg capsule (Colace) 100 mg PO BID #60 caps 09/16/22 [Rx Last Taken Unknown] hydrocortisone 2.5 % topical cream with perineal applicator (Anusol-HC) 1 applic PA BID PRN hemorrhoids #30 grams 09/16/22 [Rx Last Taken Unknown] oxycodone-acetaminophen 5 mg-325 mg tablet (Percocet) 1 tab PO Q6H PRN pain 3 days #10 tabs 09/26/22 [Rx Last Taken Unknown] cyclobenzaprine 10 mg tablet 10 mg PO TID PRN muscle spasm #20 tabs 11/30/22 [Rx Last Taken Unknown] prednisone 10 mg tablet 10 mg PO DIRECTED #30 tabs 11/30/22 [Rx Last Taken Unknown] hydrocodone-acetaminophen 5-325mg 5mg-325mg 1 tab PO Q6H PRN PRN Pain 3 days #10 TABLETS 12/30/22 [Rx Last Taken Unknown] oxycodone-acetaminophen 5 mg-325 mg tablet 1 tab PO Q6H PRN PRN Pain 3 days #12 TABLETS 02/24/23 [Rx Last Taken Unknown] Allergy/AdvReac Type Severity Reaction Status Date / Time benzonatate Allergy Rash Verified 02/24/23 13:11 [From Tessalon Perles] diazepam [From Valium] Allergy Hives Verified 02/24/23 13:11 morphine Allergy Itching Verified 02/24/23 13:11 Penicillins Allergy Hives Verified 02/24/23 13:11 venom-honey bee Allergy Hives Verified 02/24/23 13:11 [bee venom (honey bee)] Family History Father Heart disease Hypertension Myocardial infarction Mother Cancer lung, throat and Lupus Surgical History History of esophagogastroduodenoscopy (EGD) History of left oophorectomy S/P breast biopsy S/P colonoscopy Status post hysterectomy Social History household members: none Smoking Status: Current every day smoker tobacco type: cigarettes alcohol intake: current alcohol intake frequency: holidays/special occasions only substance use type: marijuana caffeine: Yes what type of physical activity do you participate in: none seatbelt use: sometimes do you feel safe at home: Yes additional social history: Boyfriend-Sha- Works at [employer] Patient works at [employer] ROS ROS ED Review of Systems ROS Unobtainable: other Constitutional Constitutional ED: Reports lethargy; Denies chills, fever(s), sweats or weight loss Eyes Eyes: Denies blurry vision, change in vision or diplopia ENT ENT ED: Denies rhinorrhea or sore throat Cardiovascular Cardiovascular: Denies chest pain, orthopnea or racing heartbeat Respiratory/Chest Respiratory/Chest: Denies cough, dyspnea, dyspnea on exertion, orthopnea or sputum Gastrointestinal Gastrointestinal: Denies abdominal pain, diarrhea, nausea or vomiting Genitourinary Genitourinary ED: Denies dysuria, hematuria or urinary frequency Musculoskeletal Musculoskeletal: Reports back pain and neck pain; Denies arthralgias or myalgias Integumentary Denies abscess, Abrasions or rash Neurologic Neurologic: Denies headache(s) or weakness Psychiatric Psychiatric: Denies anxiety, depression or suicidal thoughts Endocrine Endocrinology: Denies polydipsia, polyphagia or polyuria Hematologic/Lymphatic Hematologic/Lymphatic: Denies easy bleeding, easy bruising or lymphadenopathy Allergic/Immunologic Allergic/Immunologic ED: Denies mouth swelling, tongue swelling or urticaria EXAM Physical Exam Const Vital Signs: 02/24/23 13:09 Temperature 97.4 F L Temperature Source Temporal Pulse Rate 86 Respiratory Rate 16 Blood Pressure 123/80 H Blood Pressure Mean 94 Pulse Ox 100 Oxygen Delivery Method Room Air Positive well nourished and well developed General Appearance ED: well developed and NAD HEENT Reports TM's clear and moist mucous membranes normocephalic and atraumatic; Negative for trauma or tenderness Tympanic Membrane ED: Yes TM's clear Eyes PERRL and EOMs intact bilaterally General Eye ED: Negative for pale conjunctiva or scleral icterus Neck no lymphadenopathy, supple and no JVD Neck Narrative: Patient with diffuse tenderness over the cervical spine and cervical paraspinal musculature bilaterally however right greater than left. No erythema or warmth noted. No bony step-offs. Patient also some tenderness over the right trapezius. Upper extremity DTRs are plus 2 out of 4 bilaterally at the bicep, tricep, and brachioradialis. General: tenderness Chest Wall inspection of chest normal and palpation of chest normal Chest: Negative for tenderness Resp normal respiratory effort and clear to auscultation bilaterally Effort and Inspection: Negative for respiratory distress or pain with movement Auscultation: Negative for rhonchi, wheezes or diminished lung sounds Cardio regular rate, regular rhythm, S1 normal heart sound, S2 normal heart sound and no murmurs Peripheral Pulses: pulses 2+ throughout GI normal to inspection, nondistended, normoactive bowel sounds, soft to palpation, non-tender, non-distended and no masses Back/Spine no CVA tenderness and no thoracic nor lumbar tenderness Extremity normal to inspection General Extremety ED: Negative for edema General Extremity: Negative for edema Neuro oriented x3, CN's II-XII intact bilaterally, no sensory deficits noted and gait normal Sensorium / Orientation: awake, alert, oriented to person, oriented to place and oriented to time Motor Exam: strength 5/5 throughout and strength abnormal Psych mental status grossly normal Skin no rashes or lesions noted and no wounds MDM MDM MDM Narrative Medical decision making narrative: Patient presents with chronic back pain and neck pain. I did review the MRI results that patient was able to pull up on my chart and it did show some foraminal stenosis on the right at C3-4. No other acute abnormalities noted. Patient will be given a dose of Dilaudid 1 mg IM as well as Zofran 4 mg IM. I will write her a prescription for a few Percocet and advised that she follow-up with her primary care physician and back surgeon. He has acute exacerbation of chronic neck and back pain. Discharge Plan Triage Chief Complaint: Back ED Provider: Kathia Dean Dx/Rx/DC Orders Clinical Impression: Neck pain, Back pain Instructions: ED Back Pain (Acute or Chronic), ED Neck Pain Prescriptions: New oxycodone-acetaminophen [oxycodone-acetaminophen] 5-325 mg tablet 1 tab PO Q6H PRN PRN (Reason: Pain) 3 Days Qty: 12 0RF No Action Azo Cranberry 250 mg tablet,chewable 250 mg PO BID imiquimod 5 % cream in packet 1 applic topical .COMPLEX Qty: 12 1RF Rx Instructions: 1 applic topical 3 times per week up to 16 weeks; cyclobenzaprine 10 mg tablet 10 mg PO TID PRN (Reason: muscle spasm) Qty: 20 0RF prednisone 10 mg tablet 10 mg PO DIRECTED Qty: 30 0RF Rx Instructions: 4 tablets daily x3 days, then 3 tablets daily x3 days, then 2 tablets daily x3 days, then 1 tablets daily x3 days albuterol sulfate 1 INHALER inhaler 2 puff INHALATION Q4H PRN PRN (Reason: Asthma) Qty: 0 0RF Label Comments: asthma pantoprazole 20 MG tablet 20 mg PO BID naproxen 500 MG tablet 500 mg PO BID Qty: 14 0RF paroxetine HCl 20 mg tablet 20 tab PO DAILY phenazopyridine [Pyridium] 200 mg tablet 200 mg PO TID Qty: 10 0RF docusate sodium [Colace] 100 mg capsule 100 mg PO BID Qty: 60 0RF hydrocortisone [Anusol-HC] 2.5 % cream with perineal applicator 1 applic PA BID PRN (Reason: hemorrhoids) Qty: 30 0RF dibucaine 1 % ointment 1 applic PA TID PRN (Reason: hemorrhoids) Qty: 56 0RF oxycodone-acetaminophen [Percocet] 5-325 mg tablet 1 tab PO Q6H PRN (Reason: pain) 3 Days Qty: 10 0RF hydrocodone-acetaminophen [hydrocodone-acetaminophen] 5-325 mg tablet 1 tab PO Q6H PRN PRN (Reason: Pain) 3 Days Qty: 10 0RF Primary Care Provider: Yassine Link Referrals: Yassine Link MD [Primary Care Provider] - 3-5 Days Disposition Disposition: Home, Self Care
[2023-02-24] MEDS: HYDROmorphone 1 MG/ML Syringe IM (13:36)
[2023-02-24] MEDS: Ondansetron 4 MG/2 ML Vial IM (13:36)
[2023-02-24 13:57] VITALS: BP 129/88; PULSE 74; RESP 15; O2SAT 98
== END 2023-02-24 14:02 | disposition home or self-care (01) ==
PROVIDERS: Emergency Provider Emergency Medicine; PCP Internal Medicine; Visit Provider Emergency Medicine
DX: M54.2 Cervicalgia (principal); F17.210 Nicotine dependence, cigarettes, uncomplicated; G89.29 Other chronic pain; F12.90 Cannabis use, unspecified, uncomplicated
CPT/HCPCS: 96372; 99282; J2405

== ENCOUNTER 2023-03-12 16:10 | Emergency (ER) | payer MEDICAID, SELFPAY ==
[2023-03-12 16:11] VITALS: BP 125/79; PULSE 69; RESP 16; TEMP 36.8; O2SAT 99; BMI 34.3
--- NOTE | 2023-03-12 16:24 | EX.ED.DYSGE1 ---
HPI History of Present Illness Chief Complaint: Other, Pain/Inj Narrative Narrative: Patient is here with chronic left upper back/shoulder pain. She had corrective surgery for left thoracic outlet syndrome 2 years ago and she has had this pain since then. It hurts especially with lifting which she has to do at work at [employer]. She just finished his shift today. The pain is worse with movements or lifting. It does not radiate down her arm and there is no weakness numbness or tingling. No new trauma. She usually takes NSAIDs, muscle relaxers, and is currently on a Medrol Dosepak. She is scheduled to see pain management, Dr. Yang, who will do injections on April 04. She states she is already had x-rays and MRIs. Patient is here requesting treatment for this chronic pain. [facility] Medical History Anxiety Depression GERD (gastroesophageal reflux disease) H/O thoracic outlet syndrome IBS (irritable bowel syndrome) Left shoulder strain Thoracic outlet syndrome Home Medications albuterol sulfate 90 mcg/actuation aerosol inhaler 2 puff inhalation Q4H PRN PRN Asthma ##0 05/03/16 [Rx Last Taken 11/17/18] pantoprazole 20 mg tablet,delayed release 20 mg PO BID 04/26/20 [History Last Taken Unknown] naproxen 500 mg tablet 500 mg PO BID #14 tabs 03/09/22 [Rx Last Taken Unknown] paroxetine HCl 20 mg tablet 20 tab PO DAILY 05/30/22 [History Last Taken Unknown] phenazopyridine 200 mg tablet (Pyridium) 200 mg PO TID #10 tabs 07/27/22 [Rx Last Taken Unknown] cranberry fruit concentrate 250 mg chewable tablet (Azo Cranberry) 250 mg PO BID 08/03/22 [History Last Taken Unknown] imiquimod 5 % topical cream packet 1 applic topical .COMPLEX #12 ea 08/03/22 [Rx Last Taken Unknown] dibucaine 1 % rectal ointment 1 applic NV TID PRN hemorrhoids #56 grams 09/16/22 [Rx Last Taken Unknown] docusate sodium 100 mg capsule (Colace) 100 mg PO BID #60 caps 09/16/22 [Rx Last Taken Unknown] hydrocortisone 2.5 % topical cream with perineal applicator (Anusol-HC) 1 applic NV BID PRN hemorrhoids #30 grams 09/16/22 [Rx Last Taken Unknown] oxycodone-acetaminophen 5 mg-325 mg tablet (Percocet) 1 tab PO Q6H PRN pain 3 days #10 tabs 09/26/22 [Rx Last Taken Unknown] cyclobenzaprine 10 mg tablet 10 mg PO TID PRN muscle spasm #20 tabs 11/30/22 [Rx Last Taken Unknown] prednisone 10 mg tablet 10 mg PO DIRECTED #30 tabs 11/30/22 [Rx Last Taken Unknown] hydrocodone-acetaminophen 5-325mg 5mg-325mg 1 tab PO Q6H PRN PRN Pain 3 days #10 TABLETS 12/30/22 [Rx Last Taken Unknown] oxycodone-acetaminophen 5 mg-325 mg tablet 1 tab PO Q6H PRN PRN Pain 3 days #12 TABLETS 02/24/23 [Rx Last Taken Unknown] Allergy/AdvReac Type Severity Reaction Status Date / Time benzonatate Allergy Rash Verified 03/12/23 16:23 [From Tessalon Perles] diazepam [From Valium] Allergy Hives Verified 03/12/23 16:23 morphine Allergy Itching Verified 03/12/23 16:23 Penicillins Allergy Hives Verified 03/12/23 16:23 venom-honey bee Allergy Hives Verified 03/12/23 16:23 [bee venom (honey bee)] Family History Father Heart disease Hypertension Myocardial infarction Mother Cancer lung, throat and Lupus Surgical History History of esophagogastroduodenoscopy (EGD) History of left oophorectomy S/P breast biopsy S/P colonoscopy Status post hysterectomy Social History household members: none Smoking Status: Current every day smoker tobacco type: cigarettes alcohol intake: current alcohol intake frequency: holidays/special occasions only substance use type: marijuana caffeine: Yes what type of physical activity do you participate in: none seatbelt use: sometimes do you feel safe at home: Yes additional social history: Boyfriend-Sha- Works at [employer] Patient works at [employer] ROS ROS ED ROS Narrative Constitutional: Negative for fever, chills, malaise. CVS: Negative for chest pain. Respiratory: Negative for shortness of breath. Neuro: Negative for motor/sensory dysfunction. Musc: Negative for joint pain, swelling, trauma. EXAM Physical Exam Narrative Exam Narrative: CONST: Patient sitting in no acute distress. EYES: Normal inspection. NECK: Normal inspection. No midline spinal tenderness or step-offs. Tender palpation over left cervical paraspinals and trapezius. No meningismus. RESP: No respiratory distress, CTAB. CVS: Regular rate and rhythm, no murmur, no gallop. SKIN: Color normal, no rash, warm, dry, intact. EXTREMITIES: Normal appearance full ROM both upper extremities with no bony tenderness. 5/5 strength, normal sensation, 2+ radial pulses. NEURO: Oriented x4. PSYCH: Normal affect. Const Vital Signs: 03/12/23 16:11 Temperature 98.2 F Temperature Source Temporal Pulse Rate 69 Respiratory Rate 16 Blood Pressure 125/79 H Blood Pressure Mean 94 Pulse Ox 99 Oxygen Delivery Method Room Air MDM MDM MDM Narrative Medical decision making narrative: Patient here for acute on chronic left neck and upper back pain. This has been ongoing for 2 years. It was worsened today after lifting boxes at work. No trauma. Neck back and upper extremities are normal on inspection. She has reproducible tenderness of the left cervical and trapezius muscles. No spinal tenderness. Full range of motion of upper extremities and neurovascularly intact. She was treated with Toradol and Addy here. I discussed further narcotic prescriptions for home were not appropriate at this time. She is scheduled to follow-up with pain management next month for injections. She was discharged in stable condition. Differential: Musculoskeletal pain, chronic neurogenic thoracic outlet syndrome pain, radiculopathy External records reviewed: Shoulder x-ray on 11/30/2022 shows no acute process. Test considered: No history of trauma, exam consistent with muscular pains so no indication for x-ray or CT Discharge Plan Triage Chief Complaint: Other, Pain/Inj ED Midlevel Provider: Moraima Ward ED Provider: Christos Storm Dx/Rx/DC Orders Clinical Impression: Chronic neck pain Instructions: Back Basics: A Healthy Spine Prescriptions: No Action Azo Cranberry 250 mg tablet,chewable 250 mg PO BID imiquimod 5 % cream in packet 1 applic topical .COMPLEX Qty: 12 1RF Rx Instructions: 1 applic topical 3 times per week up to 16 weeks; cyclobenzaprine 10 mg tablet 10 mg PO TID PRN (Reason: muscle spasm) Qty: 20 0RF prednisone 10 mg tablet 10 mg PO DIRECTED Qty: 30 0RF Rx Instructions: 4 tablets daily x3 days, then 3 tablets daily x3 days, then 2 tablets daily x3 days, then 1 tablets daily x3 days albuterol sulfate 1 INHALER inhaler 2 puff INHALATION Q4H PRN PRN (Reason: Asthma) Qty: 0 0RF Label Comments: asthma pantoprazole 20 MG tablet 20 mg PO BID naproxen 500 MG tablet 500 mg PO BID Qty: 14 0RF paroxetine HCl 20 mg tablet 20 tab PO DAILY phenazopyridine [Pyridium] 200 mg tablet 200 mg PO TID Qty: 10 0RF docusate sodium [Colace] 100 mg capsule 100 mg PO BID Qty: 60 0RF hydrocortisone [Anusol-HC] 2.5 % cream with perineal applicator 1 applic NV BID PRN (Reason: hemorrhoids) Qty: 30 0RF dibucaine 1 % ointment 1 applic NV TID PRN (Reason: hemorrhoids) Qty: 56 0RF oxycodone-acetaminophen [Percocet] 5-325 mg tablet 1 tab PO Q6H PRN (Reason: pain) 3 Days Qty: 10 0RF hydrocodone-acetaminophen [hydrocodone-acetaminophen] 5-325 mg tablet 1 tab PO Q6H PRN PRN (Reason: Pain) 3 Days Qty: 10 0RF oxycodone-acetaminophen [oxycodone-acetaminophen] 5-325 mg tablet 1 tab PO Q6H PRN PRN (Reason: Pain) 3 Days Qty: 12 0RF Primary Care Provider: Yassine Link Referrals: Yassine Link MD [Primary Care Provider] - Activity Restrictions/Additional Instructions: Continue your home medications and follow-up with pain management Disposition Disposition: Home, Self Care
--- NOTE | 2023-03-12 16:32 | ED.RN ---
PT REFUSED IM TORADOL. ARMANDO AVERY EDUCATED PT THAT IM TORADOL IS INTENDED TO HELP WITH PAIN IN COMBINATION WITH PO NORCO. PT STATES TORADOL NEVER WORKS. PT REQUESTS TO JUST BE GIVEN NORCO PO. DR. BARRERA AWARE. PT EDUCATED THAT SHE WILL NOT BE ABLE TO DRIVE HERSELF HOME. PT VERBALIZES UNDERSTANDING.
[2023-03-12 16:48] VITALS: PULSE 60; O2SAT 100
[2023-03-12] MEDS: HYDROcodone Bitartrate/Apap 5/325 Tablet PO (16:49)
== END 2023-03-12 16:51 | disposition home or self-care (01) ==
PROVIDERS: Emergency Provider Emergency Medicine; PCP Internal Medicine; Visit Provider Emergency Medicine
DX: M54.2 Cervicalgia (principal); G89.29 Other chronic pain; F17.210 Nicotine dependence, cigarettes, uncomplicated; F12.90 Cannabis use, unspecified, uncomplicated
CPT/HCPCS: 99283

== ENCOUNTER 2023-04-11 13:02 | Emergency (ER) | payer MEDICAID, SELFPAY ==
[2023-04-11 13:03] VITALS: BP 136/85; PULSE 77; RESP 16; TEMP 36.6; O2SAT 100; BMI 33.5
--- NOTE | 2023-04-11 13:35 | ED.VIS.GI ---
HPI HPI - GI History of Present Illness Chief Complaint: Abd Pain Informant: patient Abdominal Pain/Flank Pain Onset: Days (4) Context: Sudden Onset (But mild and progressively/gradually worse) Timing: Continuous Quality: Aching Location: - (Right pelvis) Current Severity: Severe Maximum Severity: Severe Worsened by: Nothing Relieved by: - (Tylenol and ibuprofen but barely) Nausea/Vomiting/Emesis GI Symptom: Negative for Nausea or Vomiting Diarrhea/Melena/Hematochezia GI Symptom: Negative for Diarrhea, Melena or Hematochezia Associated Symptoms Associated Symptoms: Negative for Dysuria, Frequency or Hematuria Narrative Narrative: Patient states she had right pelvic pain start after intercourse and then gradually got worse within the next half of a day. States it is the same symptoms as prior ruptured ovarian cyst that she has had in the past. She states as a result of these occurring frequently on the left side she had a salpingo-oophorectomy, after she had a partial hysterectomy. Now I am starting to get them more on the right. The last time she had this was for 5 months ago, and as a result of all of this she has tried to call her [employer] but has not been able to get a hold of them and given the pain she is presenting to the ER. [facility] Medical History Anxiety Depression GERD (gastroesophageal reflux disease) H/O thoracic outlet syndrome IBS (irritable bowel syndrome) Left shoulder strain Thoracic outlet syndrome Home Medications albuterol sulfate 90 mcg/actuation aerosol inhaler 2 puff inhalation Q4H PRN PRN Asthma ##0 05/03/16 [Rx Last Taken 11/17/18] pantoprazole 20 mg tablet,delayed release 20 mg PO BID 04/26/20 [History Last Taken Unknown] naproxen 500 mg tablet 500 mg PO BID #14 tabs 03/09/22 [Rx Last Taken Unknown] paroxetine HCl 20 mg tablet 20 tab PO DAILY 05/30/22 [History Last Taken Unknown] phenazopyridine 200 mg tablet (Pyridium) 200 mg PO TID #10 tabs 07/27/22 [Rx Last Taken Unknown] cranberry fruit concentrate 250 mg chewable tablet (Azo Cranberry) 250 mg PO BID 08/03/22 [History Last Taken Unknown] imiquimod 5 % topical cream packet 1 applic topical .COMPLEX #12 ea 08/03/22 [Rx Last Taken Unknown] dibucaine 1 % rectal ointment 1 applic WV TID PRN hemorrhoids #56 grams 09/16/22 [Rx Last Taken Unknown] docusate sodium 100 mg capsule (Colace) 100 mg PO BID #60 caps 09/16/22 [Rx Last Taken Unknown] hydrocortisone 2.5 % topical cream with perineal applicator (Anusol-HC) 1 applic WV BID PRN hemorrhoids #30 grams 09/16/22 [Rx Last Taken Unknown] oxycodone-acetaminophen 5 mg-325 mg tablet (Percocet) 1 tab PO Q6H PRN pain 3 days #10 tabs 09/26/22 [Rx Last Taken Unknown] cyclobenzaprine 10 mg tablet 10 mg PO TID PRN muscle spasm #20 tabs 11/30/22 [Rx Last Taken Unknown] prednisone 10 mg tablet 10 mg PO DIRECTED #30 tabs 11/30/22 [Rx Last Taken Unknown] hydrocodone-acetaminophen 5-325mg 5mg-325mg 1 tab PO Q6H PRN PRN Pain 3 days #10 TABLETS 12/30/22 [Rx Last Taken Unknown] oxycodone-acetaminophen 5 mg-325 mg tablet 1 tab PO Q6H PRN PRN Pain 3 days #12 TABLETS 02/24/23 [Rx Last Taken Unknown] oxycodone-acetaminophen 5 mg-325 mg tablet 1 tab PO Q6H PRN PRN Pain 2 days #10 TABLETS 04/11/23 [Rx Last Taken Unknown] Allergy/AdvReac Type Severity Reaction Status Date / Time benzonatate Allergy Rash Verified 04/11/23 13:05 [From Tessalon Perles] diazepam [From Valium] Allergy Hives Verified 04/11/23 13:05 morphine Allergy Itching Verified 04/11/23 13:05 Penicillins Allergy Hives Verified 04/11/23 13:05 venom-honey bee Allergy Hives Verified 04/11/23 13:05 [bee venom (honey bee)] Family History Father Heart disease Hypertension Myocardial infarction Mother Cancer lung, throat and Lupus Surgical History History of esophagogastroduodenoscopy (EGD) History of left oophorectomy S/P breast biopsy S/P colonoscopy Status post hysterectomy Social History household members: none Smoking Status: Current every day smoker tobacco type: cigarettes alcohol intake: current alcohol intake frequency: holidays/special occasions only substance use type: marijuana caffeine: Yes what type of physical activity do you participate in: none seatbelt use: sometimes do you feel safe at home: Yes additional social history: Boyfriend-Sha- Works at [employer] Patient works at [employer] ROS ROS ED Constitutional Constitutional ED: Denies chills or fever(s) Gastrointestinal Gastrointestinal: Reports abdominal pain; Denies nausea or vomiting Genitourinary Genitourinary ED: Denies dysuria or hematuria Musculoskeletal Musculoskeletal: Denies back pain or neck pain Integumentary Denies abscess or rash Neurologic Neurologic: Denies headache(s), paresthesias or weakness EXAM Physical Exam Const Vital Signs: 04/11/23 13:03 Temperature 97.8 F Temperature Source Temporal Pulse Rate 77 Respiratory Rate 16 Blood Pressure 136/85 H Blood Pressure Mean 102 Pulse Ox 100 Oxygen Delivery Method Room Air Positive well nourished and well developed General Appearance ED: well developed and NAD Resp normal respiratory effort Cardio regular rate, regular rhythm and no murmurs Rate: Negative for tachycardic GI non-distended GI Narrative: Tender in the right distal abdomen, no guarding or rebound tenderness, no other abnormalities. Nontender McBurney's point. Back/Spine no CVA tenderness Extremity full ROM Neuro CN's II-XII intact bilaterally, moves all extremities, no sensory deficits noted and gait normal Psych mental status grossly normal and thought process normal Skin no wounds Lesions: no lesions Rashes: no rashes MDM MDM MDM Narrative Medical decision making narrative: Patient states she feels confident this is a cyst. I discussed the differential diagnosis including torsion, she states she really does not want an ultrasound she does not have to have it. I think given the fact that she has a prior history area of this, the pain was not severe and sudden, and she has already had a hysterectomy and a left salpingo-oophorectomy, I think it would be reasonable to treat her pain and have her follow-up with her [facility] without an emergent ultrasound today. She is comfortable with that plan, she understands all of this and will follow-up. I did review an [facility] report, standard procedure for prescribing her narcotics. I am a little concerned about it. She has multiple narcotic prescriptions, none of which are active, and the last of which was a month ago, but upon looking up her last couple ED visits, she presents here for chronic pain. She is not here for chronic pain now this is acute pain, which is why I am allowing her to have the prescription, but I am going to discuss with social work who formulated the care plans, since she did not discuss any of her frequent narcotic use with me. Discharge Plan Triage Chief Complaint: Abd Pain ED Provider: Cam Aguirre Dx/Rx/DC Orders Clinical Impression: Rupture of cyst of right ovary Instructions: ED Ovarian Cyst Prescriptions: New oxycodone-acetaminophen [oxycodone-acetaminophen] 5-325 mg tablet 1 tab PO Q6H PRN PRN (Reason: Pain) 2 Days Qty: 10 0RF No Action Azo Cranberry 250 mg tablet,chewable 250 mg PO BID imiquimod 5 % cream in packet 1 applic topical .COMPLEX Qty: 12 1RF Rx Instructions: 1 applic topical 3 times per week up to 16 weeks; cyclobenzaprine 10 mg tablet 10 mg PO TID PRN (Reason: muscle spasm) Qty: 20 0RF prednisone 10 mg tablet 10 mg PO DIRECTED Qty: 30 0RF Rx Instructions: 4 tablets daily x3 days, then 3 tablets daily x3 days, then 2 tablets daily x3 days, then 1 tablets daily x3 days albuterol sulfate 1 INHALER inhaler 2 puff INHALATION Q4H PRN PRN (Reason: Asthma) Qty: 0 0RF Label Comments: asthma pantoprazole 20 MG tablet 20 mg PO BID naproxen 500 MG tablet 500 mg PO BID Qty: 14 0RF paroxetine HCl 20 mg tablet 20 tab PO DAILY phenazopyridine [Pyridium] 200 mg tablet 200 mg PO TID Qty: 10 0RF docusate sodium [Colace] 100 mg capsule 100 mg PO BID Qty: 60 0RF hydrocortisone [Anusol-HC] 2.5 % cream with perineal applicator 1 applic WV BID PRN (Reason: hemorrhoids) Qty: 30 0RF dibucaine 1 % ointment 1 applic WV TID PRN (Reason: hemorrhoids) Qty: 56 0RF oxycodone-acetaminophen [Percocet] 5-325 mg tablet 1 tab PO Q6H PRN (Reason: pain) 3 Days Qty: 10 0RF hydrocodone-acetaminophen [hydrocodone-acetaminophen] 5-325 mg tablet 1 tab PO Q6H PRN PRN (Reason: Pain) 3 Days Qty: 10 0RF oxycodone-acetaminophen [oxycodone-acetaminophen] 5-325 mg tablet 1 tab PO Q6H PRN PRN (Reason: Pain) 3 Days Qty: 12 0RF Primary Care Provider: Yassine Link Referrals: Logan Cunningham MD [Non-Staff] - 3-5 Days if not improving Yassine Link MD [Primary Care Provider] - Disposition Disposition: Home, Self Care
[2023-04-11] MEDS: oxyCODONE 5 MG Tablet PO (13:44)
== END 2023-04-11 14:25 | disposition home or self-care (01) ==
PROVIDERS: Emergency Provider Emergency Medicine; PCP Internal Medicine; Visit Provider Emergency Medicine
DX: N83.201 Unspecified ovarian cyst, right side (principal); F17.210 Nicotine dependence, cigarettes, uncomplicated; Z90.710 Acquired absence of both cervix and uterus; Z90.721 Acquired absence of ovaries, unilateral
CPT/HCPCS: 99283

== ENCOUNTER 2023-04-25 13:41 | Emergency (ER) | payer MEDICAID, SELFPAY ==
[2023-04-25 13:42] VITALS: BP 129/98; PULSE 86; RESP 16; TEMP 36.6; O2SAT 100; BMI 32.5
[2023-04-25] MEDS: Ketorolac 30 MG/ML Syringe IV (14:46)
[2023-04-25] MEDS: HYDROcodone Bitartrate/Apap 5/325 Tablet PO (14:47)
--- NOTE | 2023-04-25 15:05 | EX.ED.DYSGE1 ---
HPI History of Present Illness Chief Complaint: Abd Pain Narrative Narrative: Patient is a 37-year-old female who is presenting to the ER with chief complaint of acute on chronic right lower abdominal pain, right ovarian cyst pain. Patient has a GRADUATE [employer]ACHING ASSOCIATE physician who has seen this patient locally and has moved to [facility] but patient still follows with this patient. Patient has no acute pain today, this pain has been constant and persistent for the past 2 to 3 weeks. Patient saw her GRADUATE TEACHING ASSOCIATE 2 weeks ago, there is surgery scheduled in 2 weeks to have her right ovary and cyst removed. Patient is already had a partial hysterectomy. Patient has no new abdominal pain, nausea or vomiting. No new vaginal complaints of bleeding, pain or discharge. No urinary complaints. No diarrhea constipation. Patient is strictly here for pain relief. Patient has called Dr. Cunningham office yesterday and today, he has not been in the office but he is in the office tomorrow. Patient has spoken to staff and was told to call back tomorrow as well to see if Dr. Cunningham could do something else for patient's pain for the next 2 weeks until she has surgery. Patient had no trauma, no new fall, no other acute complaints [facility] Medical History Anxiety Depression GERD (gastroesophageal reflux disease) H/O thoracic outlet syndrome IBS (irritable bowel syndrome) Left shoulder strain Thoracic outlet syndrome Home Medications albuterol sulfate 90 mcg/actuation aerosol inhaler 2 puff inhalation Q4H PRN PRN Asthma ##0 05/03/16 [Rx Last Taken 11/17/18] pantoprazole 20 mg tablet,delayed release 20 mg PO BID 04/26/20 [History Last Taken Unknown] lorazepam 0.5 mg tablet 0.5 mg PO QHS PRN Anxiety 04/25/23 [History Last Taken Unknown] Allergy/AdvReac Type Severity Reaction Status Date / Time benzonatate Allergy Rash Verified 04/25/23 13:43 [From Tessalon Perles] diazepam [From Valium] Allergy Hives Verified 04/25/23 13:43 morphine Allergy Itching Verified 04/25/23 13:43 Penicillins Allergy Hives Verified 04/25/23 13:43 venom-honey bee Allergy Hives Verified 04/25/23 13:43 [bee venom (honey bee)] Family History Father Heart disease Hypertension Myocardial infarction Mother Cancer lung, throat and Lupus Surgical History History of esophagogastroduodenoscopy (EGD) History of left oophorectomy S/P breast biopsy S/P colonoscopy Status post hysterectomy Social History household members: none Smoking Status: Current every day smoker tobacco type: cigarettes alcohol intake: current alcohol intake frequency: holidays/special occasions only substance use type: marijuana caffeine: Yes what type of physical activity do you participate in: none seatbelt use: sometimes do you feel safe at home: Yes additional social history: Boyfriend-Sha- Works at [employer] Patient works at [employer] ROS ROS ED ROS Narrative REVIEW OF SYSTEMS: Unless otherwise stated in this report the patient's positive and negative responses for review of systems for constitutional, eyes, ENT, cardiovascular, respiratory, gastrointestinal, neurological, , musculoskeletal, and integument systems and related systems to the presenting problem are either stated in the history of present illness or were not pertinent or were negative for the symptoms and/or complaints related to the presenting medical problem. EXAM Physical Exam Narrative Exam Narrative: Vital signs reviewed and patient is not hypoxic. General: The patient appears well and in no apparent distress. Patient is resting comfortably on cart. Not toxic, lethargic, or listless. Skin: Warm, dry, no pallor noted. There is no rash noted. Head: Normocephalic, atraumatic Eye: Normal conjunctiva, no drainage, EOMI. PERRL. Ears, Nose, Mouth, and Throat: oral mucosa is moist. Cardiovascular: Regular Rate and Rhythm, no murmurs, gallops, or rubs Respiratory: Patient is in no distress, no accessory muscle use, lungs are clear to auscultation, no wheezing, rales or rhonchi Back: non-tender, no CVA tenderness bilaterally to percussion. NO CTLS midline or paraspinal tenderness to palpation. GI: Soft, moderate tenderness to palpation to the right inguinal area, patient states this is the same pain she has had daily for the past 3 weeks. No acute onset of pain, patient has not displaying the clinical picture of acute ovarian torsion or tubo-ovarian abscess. Patient has no rash. No signs of bilateral inguinal or femoral hernia bilateral. Patient has no tenderness palpation over McBurney's point. Negative Dave sign. No flank pain bilateral. No rash. No suprapubic tenderness palpation. No other acute complaints. No tenderness to palpation, no masses appreciated. No rebound, guarding, or rigidity noted. Musculoskeletal: The patient has full range of motion of all extremities and joints with no difficulty. Patient has no motor, no sensory deficits. Neurological: A&O x4, normal speech, no focal neurological deficits. Psychiatric: Cooperative Const Vital Signs: 04/25/23 13:42 Temperature 98 F Temperature Source Temporal Pulse Rate 86 Respiratory Rate 16 Blood Pressure 129/98 H Blood Pressure Mean 108 Pulse Ox 100 Oxygen Delivery Method Room Air MDM MDM MDM Narrative Medical decision making narrative: Shared decision making was done at bedside with myself and patient. Patient just had an ultrasound [address] Cunningham office. Patient has had recent CAT scans and lab work as well. Patient is not displaying any type of acute pain today, we discussed repeating lab work, ultrasound or CAT scan versus treating patient's pain and having her speaking to Dr. Cunningham tomorrow. Patient has surgery scheduled in 2 weeks as well. Patient is opted just to have pain medication and no lab work testing, CAT scans or repeat ultrasounds. Patient understands the risk and benefits of not repeating test today. Patient believes this is her same pain daily for the past 3 weeks and would just like pain management. Patient was told that I can give her something in the ER today for pain, but we cannot treat chronic pain from the ER. Patient is to follow-up with her surgeon/GRADUATE TEACHING ASSOCIATE tomorrow for additional medication if needed. Patient is agreeing to this, no questions at discharge. Patient was thankful for help today Discharge Plan Triage Chief Complaint: Abd Pain ED Provider: Adonis Desir Dx/Rx/DC Orders Clinical Impression: Abdominal pain, Chronic pain, Ovarian cyst Instructions: Abdominal Pain, Ovarian Cysts, ED Chronic Pain Prescriptions: No Action albuterol sulfate 1 INHALER inhaler 2 puff INHALATION Q4H PRN PRN (Reason: Asthma) Qty: 0 0RF Label Comments: asthma pantoprazole 20 MG tablet 20 mg PO BID lorazepam 0.5 mg tablet 0.5 mg PO QHS PRN (Reason: Anxiety) Label Comments: TAKE 1 TABLET BY MOUTH AT BEDTIME NEEDED FOR ANXIETY Primary Care Provider: Yassine Link Referrals: Yassine Link MD [Primary Care Provider] - Activity Restrictions/Additional Instructions: Call back to Dr. Moore's office again tomorrow for follow-up for her chronic pain secondary to chronic ovarian cyst. You have your surgery scheduled in 2 weeks. Any other acute concerns follow-up with your surgeon or return back to the ER if intractable pain, intractable nausea vomiting, or any other pain out of proportion or acute concerns. Disposition Disposition: Home, Self Care Discharge Date/Time: 04/25/23 15:25
== END 2023-04-25 15:25 | disposition home or self-care (01) ==
PROVIDERS: Emergency Provider Emergency Medicine; PCP Internal Medicine; Visit Provider Emergency Medicine
DX: N83.201 Unspecified ovarian cyst, right side (principal); G89.29 Other chronic pain; F17.210 Nicotine dependence, cigarettes, uncomplicated
CPT/HCPCS: 96374; 99283; A4216

== ENCOUNTER 2023-05-27 09:48 | Emergency (ER) | payer MEDICAID, SELFPAY ==
[2023-05-27 09:49] VITALS: BP 104/74; PULSE 82; RESP 14; TEMP 37.2; O2SAT 100; BMI 32.8
--- NOTE | 2023-05-27 10:40 | CT_ITS ---
STUDY: CT ABDOMEN AND PELVIS WITH CONTRAST REASON FOR EXAM: Female, 37 years old. lower abd pain s/p oopherectomy on right RADIATION DOSAGE (If Supplied By Facility): CTDIvol = ( 13.16 ) mGy, DLP = ( 744.92 ) mGycm TECHNIQUE: Transaxial images were obtained from the dome of the diaphragm to the symphysis pubis without oral contrast. IV 100mL Isovue-300 was administered. Sagittal and coronal images were reconstructed. Individualized dose optimization techniques were used for this CT. COMPARISON: 09/26/2022 FINDINGS: The visualized lung bases are unremarkable. The visualized portions of the heart are within normal limits. Normal liver. Normal gallbladder and extrahepatic biliary system. Normal spleen. Normal pancreas. Normal bilateral adrenal glands. Normal right kidney. Normal left kidney. Normal visualized stomach. Normal small intestine. Normal colon. The appendix is visualized and appears normal. Normal abdominal aorta. Normal inferior vena cava. Normal retroperitoneum. Normal urinary bladder. Normal abdominal wall. Normal osseous structures. CT/Abdomen/Pelvis W IV Cont ONLY IMPRESSION: Normal enhanced CT of the abdomen and pelvis. Electronically Signed: Gabion Aparicio MD at 12:02 EDT ,
--- NOTE | 2023-05-27 10:41 | ED.VIS.GI ---
HPI HPI - GI History of Present Illness Chief Complaint: Abd Pain Detail of Chief Complaint: Periumbilical abdominal pain status post oophorectomy. Informant: patient Abdominal Pain/Flank Pain Onset: Today Context: Gradual Onset Timing: Continuous Quality: Aching Location: - (Periumbilical) Current Severity: Mild Maximum Severity: Moderate Worsened by: Nothing Relieved by: Nothing Nausea/Vomiting/Emesis GI Symptom: Positive for Nausea; Negative for Vomiting Onset: Today Severity: Mild Diarrhea/Melena/Hematochezia GI Symptom: Negative for Diarrhea, Melena or Hematochezia Associated Symptoms Associated Symptoms: Negative for Dysuria, Frequency, Hematuria or Urgency Narrative Narrative: 37-year-old female prior hysterectomy with 1 ovary removed. [address] Cunningham at [facility] removed the right ovary. Laparoscopically. Initially they did just her pain medication then she was doing well. Today she is complaining of periumbilical abdominal pain. Denies any dysuria. No fever. Nausea without vomiting or diarrhea. Prior similar symptoms: Yes Recent Illness/Hospitalization: No PFSH PFSH Medical History Anxiety Depression GERD (gastroesophageal reflux disease) H/O thoracic outlet syndrome IBS (irritable bowel syndrome) Left shoulder strain Thoracic outlet syndrome Home Medications albuterol sulfate 90 mcg/actuation aerosol inhaler 2 puff inhalation Q4H PRN PRN Asthma ##0 05/03/16 [Rx Last Taken 11/17/18] pantoprazole 20 mg tablet,delayed release 20 mg PO BID 04/26/20 [History Last Taken Unknown] lorazepam 0.5 mg tablet 0.5 mg PO QHS PRN Anxiety 04/25/23 [History Last Taken Unknown] Allergy/AdvReac Type Severity Reaction Status Date / Time benzonatate Allergy Rash Verified 05/27/23 09:49 [From Tessalon Perles] diazepam [From Valium] Allergy Hives Verified 05/27/23 09:49 morphine Allergy Itching Verified 05/27/23 09:49 Penicillins Allergy Hives Verified 05/27/23 09:49 venom-honey bee Allergy Hives Verified 05/27/23 09:49 [bee venom (honey bee)] Family History Father Heart disease Hypertension Myocardial infarction Mother Cancer lung, throat and Lupus Surgical History History of esophagogastroduodenoscopy (EGD) History of left oophorectomy S/P breast biopsy S/P colonoscopy Status post hysterectomy Social History household members: none Smoking Status: Current every day smoker tobacco type: cigarettes alcohol intake: current alcohol intake frequency: holidays/special occasions only substance use type: marijuana caffeine: Yes what type of physical activity do you participate in: none seatbelt use: sometimes do you feel safe at home: Yes additional social history: Boyfriend-Sha- Works at [employer] Patient works at [employer] [employer] ROS ROS ED ROS Narrative Periumbilical abdominal pain. Nausea. Review of Systems ROS Unobtainable: Denies due to encephalopathy Constitutional Constitutional ED: Denies chills or fever(s) ENT ENT ED: Denies ear pain Cardiovascular Cardiovascular: Denies chest pain Respiratory/Chest Respiratory/Chest: Denies cough Gastrointestinal Gastrointestinal: Reports abdominal pain and nausea; Denies constipation, diarrhea, melena or vomiting Genitourinary Genitourinary ED: Denies dysuria or hematuria Musculoskeletal Musculoskeletal: Denies arthralgias or back pain Integumentary Denies abscess Neurologic Neurologic: Denies headache(s) Psychiatric Psychiatric: Denies anxiety Endocrine Endocrinology: Denies polydipsia Hematologic/Lymphatic Hematologic/Lymphatic: Denies easy bleeding Allergic/Immunologic Allergic/Immunologic ED: Denies mouth swelling or tongue swelling EXAM Physical Exam Narrative Exam Narrative: Well-appearing 37 female. Vital signs stable afebrile. She does not look septic toxic or in distress. H EENT exam unremarkable. Lungs clear. Heart regular rhythm rate about 80 no murmur. Abdomen soft nondistended normal bowel sounds no peritoneal signs. Both lower quadrants are tender. She is very well-healed laparoscopic incisions are dry and clean. The umbilicus itself is unremarkable. There is no organomegaly or masses. No hernia. No distention or signs of obstruction. No peritoneal signs. Moving all 4 extremities. Back nontender. Neurologically she is awake and alert. Very benign exam. Const Vital Signs: 05/27/23 09:49 Temperature 99 F Temperature Source Temporal Pulse Rate 82 Respiratory Rate 14 Blood Pressure 104/74 Blood Pressure Mean 84 Pulse Ox 100 Oxygen Delivery Method Room Air Positive well nourished and well developed; Negative for cachectic, contractures or unkempt General Appearance ED: well developed and NAD; Negative for unkempt, cachectic, contractures or pallor Nutritional Appearance: Negative for cachectic HEENT Reports moist mucous membranes normocephalic and atraumatic; Negative for trauma or tenderness Eyes PERRL and EOMs intact bilaterally General Eye ED: Negative for pale conjunctiva, scleral icterus or other Neck no lymphadenopathy, supple and no JVD General: Negative for tenderness Carotids: Negative for other Lymph Lymphatic: Negative for other Resp normal respiratory effort and clear to auscultation bilaterally Effort and Inspection: Negative for respiratory distress Auscultation: Negative for rales, rhonchi or wheezes Cardio regular rate, regular rhythm, S1 normal heart sound, S2 normal heart sound and no murmurs Rate: Negative for bradycardia or tachycardic Rhythm: Negative for abnormal rhythm GI non-distended and no masses; Negative for non-tender Inspection: Negative for abdominal distention Auscultation: normoactive bowel sounds Palpation: soft and tender; Negative for guarding, rigid, hepatomegaly, splenomegaly, hernia, mass, pulsatile mass or rebound tenderness present Back/Spine no CVA tenderness General Back: Negative for CVA tenderness Cervical Spine: Negative for cervical spine tenderness Thoracic Spine / Upper Back: Negative for thoracic spinal tenderness Lumbar Spine / Lower Back: Negative for lumbar spinal tenderness Coccyx: Negative for other Extremity full ROM General Extremety ED: Negative for edema or tenderness General Extremity: Negative for edema Neuro CN's II-XII intact bilaterally and moves all extremities Sensorium / Orientation: alert, oriented to person, oriented to place and oriented to time; Negative for orientation impaired, confused, lethargic or stuporous Motor Exam: strength 5/5 throughout Psych mental status grossly normal and thought process normal Appearance: Negative for unkempt Attitude: No agitated Mood & Affect: Negative for depressed, anxious or tearful Skin no wounds General Skin Exam: Negative for jaundice or pallor Lesions: no lesions Rashes: no rashes Trauma: Negative for abrasion Nails: Negative for discolored MDM MDM MDM Narrative Medical decision making narrative: 37-year-old female with periumbilical and lower abdominal pain after oophorectomy laparoscopically 2 weeks ago. Exam is benign she complains of discomfort but her abdomen is actually very benign. CAT scan and labs are pending. She has a morphine allergy she will be treated with IV Toradol. And Zofran for nausea. Repeat exam patient is doing well. Still has a benign abdomen. She is complaining of pain. She be given 1 Ferguson for pain. I do not think she merits Dilaudid for her discomfort. She reportedly has a morphine allergy. She said the Toradol was of no relief. I went over her labs and CAT scan with her. Were awaiting the urinalysis results. Patient doing well. Was complaining of additional pain after the Toradol. She was given 1 Ferguson. Her abdomen is completely benign. Labs and CAT scan are unremarkable. She is comfortable being discharged home. Tylenol Motrin for pain. She needs no further pain medications. Lab Data Attestation: I reviewed the patient's lab results. Lab results narrative: CBC normal. White count 9.6. H&H 14 and 41. Platelets 212. Electrolytes show a gap of 2 normal BUN and creatinine. Liver enzymes are normal. Patient has not been able to urinate as of yet so we do not have urine. CAT scan is unremarkable as read by the radiologist and reviewed by me. Urinalysis is normal. No white or red cells. No bacteria no nitrates. Labs: Laboratory Results - last 24 hr 05/27/23 05/27/23 11:05 12:21 WBC 9.6 RBC 4.34 Hgb 14.3 Hct 41.4 MCV 95.4 MCH 32.9 H MCHC 34.5 RDW Std Deviation 43.1 RDW Coeff of Reji 12.4 Plt Count 212 MPV 10.9 Immature Gran % (Auto) 0.300 Neut % (Auto) 67.3 Lymph % (Auto) 25.0 Mcleod % (Auto) 5.0 Eos % (Auto) 1.8 Baso % (Auto) 0.6 Absolute Neuts (auto) 6.4 Absolute Lymphs (auto) 2.39 Nucleated RBC % 0 Sodium 139 Potassium 4.3 Chloride 110 H Carbon Dioxide 27.0 Anion Gap 2 L BUN 11 Creatinine 0.68 Estim Creat Clear Calc 80.57 Est GFR (MDRD) Af Amer 125 Est GFR (MDRD) Non-Af 103 BUN/Creatinine Ratio 16.2 Glucose 102 Calcium 9.0 Total Bilirubin 0.30 AST 14 L ALT 24 Alkaline Phosphatase 62 Total Protein 6.6 Albumin 3.4 Globulin 3.2 Albumin/Globulin Ratio 1.1 Urine Color Yellow Urine Clarity Clear Urine pH 8.0 Ur Specific [place] 1.010 Urine Protein 30 H Urine Glucose (UA) Normal Urine Ketones Negative Urine Occult Blood Negative Urine Nitrite Negative Urine Bilirubin Negative Urine Urobilinogen 1 H Ur Leukocyte Esterase 25 H Urine RBC 0 SEEN Urine WBC 0 SEEN Ur Squamous Epith Cells 0-5 SEEN Urine Bacteria 0 SEEN Urine Mucus 0 SEEN Radiography Diagnostic Testing: Clinical Impression(s) from Imaging Studies Abdomen/Pelvis CT 05/27/23 10:40 IMPRESSION: Normal enhanced CT of the abdomen and pelvis. Electronically Signed: Gabino Aparicio MD at 12:02 EDT , Discharge Plan Triage Chief Complaint: Abd Pain ED Provider: Christos Storm Dx/Rx/DC Orders Clinical Impression: Acute postoperative abdominal pain Instructions: Abdominal Pain Prescriptions: No Action albuterol sulfate 1 INHALER inhaler 2 puff INHALATION Q4H PRN PRN (Reason: Asthma) Qty: 0 0RF Patient Comments: asthma pantoprazole 20 MG tablet 20 mg PO BID lorazepam 0.5 mg tablet 0.5 mg PO QHS PRN (Reason: Anxiety) Patient Comments: TAKE 1 TABLET BY MOUTH AT BEDTIME NEEDED FOR ANXIETY Primary Care Provider: Yassine Link Referrals: Logan Cunningham MD [Non-Staff] - As soon as possible Yassine Link MD [Primary Care Provider] - Activity Restrictions/Additional Instructions: Tylenol and Motrin for pain. Follow-up with your CLINICAL OUTCOMES MANAGER Dr. Cunningham. Your CAT scan and labs today were unremarkable. Disposition Disposition: Home, Self Care
[2023-05-27] MEDS: Ondansetron 4 MG/2 ML Vial IV (10:57)
[2023-05-27] MEDS: Ketorolac 30 MG/ML Syringe IV (10:57)
[2023-05-27 11:19] LABS: Absolute Lymphocyte Count 2.39 X10^3/uL (0.83-4.51); Absolute Neutrophil Count 6.4 X10^3/uL (2.0-7.7); Basophil# 0.06 X10^3/uL; Basophil% 0.6 % (0-1); Eosinophil# 0.17 X10^3/uL; Eosinophils% 1.8 % (0-5); Hematocrit 41.4 % (37-47); Hemoglobin 14.3 g/dL (12.0-15.0); Lymphocyte # 2.39 X10^3/ul (0.83-4.51); Mean Corp Hgb Conc 34.5 g/dL (32-36); Mean Corpuscular Hgb 32.9 pg (27.0-32.0); Mean Corpuscular Volume 95.4 fL (81-99); Mean Platelet Vol. 10.9 fl (6.2-12.0); Monocyte# 0.48 X10^3/uL; NRBC Flagged by Analyzer 0 % (0-5); Neutrophil # 6.42 X10^3/uL (2.7-7.7); Neutrophil % 67.3 % (47-70); Platelet Count 212 K/mm3 (150-450); RBC Distribution Width CV 12.4 % (11.6-14.6); RBC Distribution Width SD 43.1 fl (35.1-43.9); Red Blood Count 4.34 M/mm3 (4.2-5.4); White Blood Count 9.6 K/mm3 (4.4-11.0)
[2023-05-27 11:39] LABS: ALB/GLOB Ratio 1.1 RATIO (0.9-2.4); AST(SGOT) 14 U/L (15-37); Alanine Aminotransfer ALT/SGPT 24 U/L (13-56); Albumin, Serum 3.4 g/dL (3.2-5.0); Alkaline Phosphatase 62 U/L (45-117); Anion Gap 2 (5-15); BUN 11 mg/dL (7-18); BUN/Creat Ratio 16.2 RATIO (10-20); Chloride 110 mmol/L (98-107); Creatinine, Serum 0.68 mg/dL (0.55-1.02); EST Glomerular Filtration Rate 103 mL/min (>60); Est Glom Filt Rate - Afr Amer 125 mL/min (>60); Estimated Creatinine Clearance 80.57 ml/min; Globulin 3.2 g/dL (2.2-4.2); Glucose 102 mg/dL (74-106); Potassium 4.3 mmol/L (3.5-5.1); Protein, Total 6.6 g/dL (6.4-8.2); Sodium Level 139 mmol/L (136-145)
[2023-05-27 12:30] LABS: Bacteria 0 SEEN /hpf (None Seen); Mucous, Urine 0 SEEN /hpf (<or=2+); Red Blood Cells-Urine 0 SEEN /hpf (0-5); White Blood Cells 0 SEEN /hpf (0-5)
[2023-05-27 12:32] LABS: Color, Urine Yellow (Yellow); Glucose, Dipstick Normal (Normal); Ketone-Dipstick Negative (Negative); Leukocyte Esterase-Dipstick 25 /ul (Negative); Nitrite-Dipstick Negative (Negative); Occult Blood-Urine Negative /ul (Negative); Protein-Dipstick 30 mg/dl (Negative); Urine Bilirubin Dipstick Negative (Negative); Urine Clarity Clear (Clear); Urine Urobilinogen 1 mg/dl (Normal)
[2023-05-27 13:10] LABS: Squamous Epithelial Cells - UA 0-5 SEEN /hpf (5-10)
[2023-05-27] MEDS: HYDROcodone Bitartrate/Apap 5/325 Tablet PO (13:18)
[2023-05-27 13:40] VITALS: BP 125/74; PULSE 62; RESP 15; O2SAT 98
== END 2023-05-27 13:42 | disposition home or self-care (01) ==
PROVIDERS: Emergency Provider Emergency Medicine; PCP Internal Medicine; Visit Provider Emergency Medicine
DX: G89.18 Other acute postprocedural pain (principal); R10.9 Unspecified abdominal pain; F17.210 Nicotine dependence, cigarettes, uncomplicated; F12.90 Cannabis use, unspecified, uncomplicated
CPT/HCPCS: 74177; 80053; 81001; 85025; 96374; 96375; 99283; J7030; Q9967; A4216; J2405

== ENCOUNTER 2023-06-30 08:04 | Emergency (ER) | payer MEDICAID, SELFPAY ==
[2023-06-30 08:04] VITALS: BP 122/77; PULSE 77; RESP 16; TEMP 36; O2SAT 100; BMI 32.5
--- NOTE | 2023-06-30 08:50 | RAD_ITS ---
HISTORY: pain. TECHNIQUE: XR Foot Min 3 Views. COMPARISON: 05/16/2021. FINDINGS: BONES : No acute fracture identified. Mineralization unremarkable. JOINTS: No dislocation. Joint spaces maintained. RAD/Foot min 3 Views IMPRESSION: No acute fracture or dislocation identified in the left foot. Electronically Signed: Niecy Anders MD at 9:27 EDT ,
--- NOTE | 2023-06-30 08:57 | ED.VIS.LOWEX ---
HPI History of Present Illness Chief Complaint: Lower Extremity Injury Narrative Narrative: 37-year-old female with left foot pain. It is nontraumatic. Its been there for 2 days. He states that it sort of radiates across the bottom of her foot. She states at times her stick pain on the top of her foot as well. Patient took Ultram today which she had at home. She is also taken ibuprofen. No skin changes. No increased warmth. No numbness or tingling. PFSH PFSH Medical History Anxiety Depression GERD (gastroesophageal reflux disease) H/O thoracic outlet syndrome IBS (irritable bowel syndrome) Left shoulder strain Thoracic outlet syndrome Home Medications albuterol sulfate 90 mcg/actuation aerosol inhaler 2 puff inhalation Q4H PRN PRN Asthma ##0 05/03/16 [Rx Last Taken 11/17/18] pantoprazole 20 mg tablet,delayed release 20 mg PO BID 04/26/20 [History Last Taken Unknown] lorazepam 0.5 mg tablet 0.5 mg PO QHS PRN Anxiety 04/25/23 [History Last Taken Unknown] Allergy/AdvReac Type Severity Reaction Status Date / Time benzonatate Allergy Rash Verified 05/27/23 09:49 [From Tessalon Perles] diazepam [From Valium] Allergy Hives Verified 05/27/23 09:49 morphine Allergy Itching Verified 05/27/23 09:49 Penicillins Allergy Hives Verified 05/27/23 09:49 venom-honey bee Allergy Hives Verified 05/27/23 09:49 [bee venom (honey bee)] Family History Father Heart disease Hypertension Myocardial infarction Mother Cancer lung, throat and Lupus Surgical History History of esophagogastroduodenoscopy (EGD) History of left oophorectomy S/P breast biopsy S/P colonoscopy Status post hysterectomy Social History household members: none Smoking Status: Current every day smoker tobacco type: cigarettes alcohol intake: current alcohol intake frequency: holidays/special occasions only substance use type: marijuana caffeine: Yes what type of physical activity do you participate in: none seatbelt use: sometimes do you feel safe at home: Yes additional social history: Boyfriend-Sha- Works at [employer] Patient works at [employer] ROS ROS ED Constitutional Constitutional ED: Denies chills, fever(s) or sweats Eyes Eyes: Denies blurry vision or change in vision ENT ENT ED: Denies ear pain or sore throat Cardiovascular Cardiovascular: Denies chest pain, palpitations or racing heartbeat Respiratory/Chest Respiratory/Chest: Denies cough, dyspnea or sputum Gastrointestinal Gastrointestinal: Denies abdominal pain, constipation, diarrhea, nausea or vomiting Genitourinary Genitourinary ED: Denies dysuria, hematuria or urinary frequency Musculoskeletal Musculoskeletal: Reports other Details: Left foot pain ; Denies arthralgias, myalgias or neck pain Integumentary Denies abscess, Abrasions or rash Neurologic Neurologic: Denies headache(s), paresthesias or weakness Psychiatric Psychiatric: Denies anxiety, depression, suicidal ideation or suicidal thoughts Endocrine Endocrinology: Denies polydipsia or polyuria EXAM Physical Exam Const Vital Signs: 06/30/23 08:04 Temperature 96.8 F L Temperature Source Temporal Pulse Rate 77 Respiratory Rate 16 Blood Pressure 122/77 H Blood Pressure Mean 92 Pulse Ox 100 Oxygen Delivery Method Room Air Positive well nourished General Appearance ED: NAD HEENT Reports moist mucous membranes normocephalic and atraumatic Resp normal respiratory effort Extremity Extremity Narrative: Tenderness to palpation to the plantar surface of the left midfoot distally. Pain is exacerbated by plantar flexion. No bony tenderness. No deformities. Left foot neurovascular intact brisk cap refill to all 5 toes Neuro oriented x3 Sensorium / Orientation: alert Motor Exam: strength 5/5 throughout Psych mental status grossly normal Skin no wounds MDM MDM MDM Narrative Medical decision making narrative: Patient presenting with nontraumatic foot pain. Her exam is consistent with a plantar fasciitis. I will obtain x-rays just to make sure there is nothing else acute. Patient amenable to this. She already took Ultram and ibuprofen at home. X-ray of the left foot on my interpretation shows no acute fractures. Patient counseled on this. Patient counseled that this is plantar fasciitis. Was given instructions on care. She will be given follow-up with podiatry. Impression: 1. Plantar fasciitis Radiography Diagnostic Testing: Clinical Impression(s) from Imaging Studies Foot X-Ray 06/30/23 08:50 IMPRESSION: No acute fracture or dislocation identified in the left foot. Electronically Signed: Niecy Anders MD at 9:27 EDT Reading Location ID and State: [facility] / [place] Tel , Service support , Discharge Plan Triage Chief Complaint: Lower Extremity Injury ED Provider: Henry Ivan Dx/Rx/DC Orders Instructions: ED Plantar Fasciitis Prescriptions: No Action albuterol sulfate 1 INHALER inhaler 2 puff INHALATION Q4H PRN PRN (Reason: Asthma) Qty: 0 0RF Patient Comments: asthma pantoprazole 20 MG tablet 20 mg PO BID lorazepam 0.5 mg tablet 0.5 mg PO QHS PRN (Reason: Anxiety) Patient Comments: TAKE 1 TABLET BY MOUTH AT BEDTIME NEEDED FOR ANXIETY Primary Care Provider: Yassine Link Referrals: Adonis Hernandez DPM [Med Staff - Active Staff] - 3-5 Days Yassine Link MD [Primary Care Provider] - Disposition Disposition: Home, Self Care
== END 2023-06-30 10:39 | disposition home or self-care (01) ==
PROVIDERS: Emergency Provider Student in an Organized Health Care Education/Training Program; PCP Internal Medicine; Visit Provider Student in an Organized Health Care Education/Training Program
DX: M72.2 Plantar fascial fibromatosis (principal); F17.210 Nicotine dependence, cigarettes, uncomplicated
CPT/HCPCS: 73630; 99282

== ENCOUNTER 2023-09-21 07:13 | Emergency (ER) | payer MEDICAID, SELFPAY ==
[2023-09-21 07:14] VITALS: BP 134/76; PULSE 76; RESP 14; TEMP 36.4; O2SAT 98; BMI 32.2
--- NOTE | 2023-09-21 07:21 | ED.VIS.LOWEX ---
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 She states her foot went into a hole. She denies paresthesia, anesthesia motors. She denies prior injury to the ankle. She has no contraindication to NSAIDs. Prior similar symptoms: No Recent Illness/Hospitalization: No PFSH [facility] Medical History Anxiety Depression GERD (gastroesophageal reflux disease) H/O thoracic outlet syndrome IBS (irritable bowel syndrome) Left shoulder strain Thoracic outlet syndrome Home Medications albuterol sulfate 90 mcg/actuation aerosol inhaler 2 puff inhalation Q4H PRN PRN Asthma ##0 05/03/16 [Rx Last Taken 11/17/18] pantoprazole 20 mg tablet,delayed release 20 mg PO BID 04/26/20 [History Last Taken Unknown] lorazepam 0.5 mg tablet 0.5 mg PO QHS PRN Anxiety 04/25/23 [History Last Taken Unknown] Allergy/AdvReac Type Severity Reaction Status Date / Time benzonatate Allergy Rash Verified 09/21/23 07:13 [From Tessalon Perles] diazepam [From Valium] Allergy Hives Verified 09/21/23 07:13 morphine Allergy Itching Verified 09/21/23 07:13 Penicillins Allergy Hives Verified 09/21/23 07:13 venom-honey bee Allergy Hives Verified 09/21/23 07:13 [bee venom (honey bee)] Family History Father Heart disease Hypertension Myocardial infarction Mother Cancer lung, throat and Lupus Surgical History History of esophagogastroduodenoscopy (EGD) History of left oophorectomy S/P breast biopsy S/P colonoscopy Status post hysterectomy Social History household members: none Smoking Status: Current every day smoker tobacco type: cigarettes alcohol intake: current alcohol intake frequency: holidays/special occasions only substance use type: marijuana caffeine: Yes what type of physical activity do you participate in: none seatbelt use: sometimes do you feel safe at home: Yes additional social history: Boyfriend-Sha- Works at [employer] Patient works at [employer] [employer] ROS ROS ED Integumentary Denies Abrasions or rash Neurologic Neurologic: Denies paresthesias or weakness Hematologic/Lymphatic Hematologic/Lymphatic: Denies easy bleeding or easy bruising EXAM Physical Exam Const Vital Signs: 09/21/23 07:14 Temperature 97.6 F L Temperature Source Temporal Pulse Rate 76 Respiratory Rate 14 Blood Pressure 134/76 H Blood Pressure Mean 95 Pulse Ox 98 Oxygen Delivery Method Room Air Positive well nourished, well developed and obese General Appearance ED: well developed and NAD Nutritional Appearance: obese HEENT Reports moist mucous membranes normocephalic and atraumatic Eyes PERRL Eyes Narrative: Extract muscles are intact. Resp normal respiratory effort Cardio regular rate and regular rhythm Extremity normal to inspection and full ROM Extremity Narrative: Patient has pain out of proportion to tactile stimulus over the lateral medial malleolus. There is no soft tissue swelling. There is no ecchymosis. There is no point tenderness. There is no pain outpatient posterior aspect of the distal fibula. No laxity with drawer testing. No pain palpation of the base of the fifth metatarsal. DP and PT pulse are palpable. Neuro oriented x3, CN's II-XII intact bilaterally, moves all extremities and no sensory deficits noted Motor Exam: strength 5/5 throughout Psych mental status grossly normal Skin no wounds Lesions: no lesions Rashes: no rashes MDM MDM MDM Narrative Medical decision making narrative: Patient's exam is unremarkable. Patient has a stable ankle sprain. Per the ankle [place] ankle rules imaging is not indicated. Patient was told that she has an ankle sprain. She was instructed to apply ice 6-10 times a day. She was instructed to draw the L foot with her foot 4-6 times a day. She was told to wear flat shoes. No inclines no go up and down ladders. Went asked if she had any questions she asked about work. She was told that she can work. She should wear flat shoe. And will put down limitations for work. Discharge Plan Triage Chief Complaint: Lower Extremity Injury ED Provider: Grant Mercado Dx/Rx/DC Orders Clinical Impression: Mild sprain of left ankle Instructions: ED Ankle Sprain (Adult) Prescriptions: No Action albuterol sulfate 1 INHALER inhaler 2 puff INHALATION Q4H PRN PRN (Reason: Asthma) Qty: 0 0RF Patient Comments: asthma pantoprazole 20 MG tablet 20 mg PO BID lorazepam 0.5 mg tablet 0.5 mg PO QHS PRN (Reason: Anxiety) Patient Comments: TAKE 1 TABLET BY MOUTH AT BEDTIME NEEDED FOR ANXIETY Stand Alone Forms: ED Work / School Excuse Primary Care Provider: Yassine Link Referrals: Yassine Link MD [Primary Care Provider] - Activity Restrictions/Additional Instructions: 1. Apply ice to your left ankle 6-10 times a day 2. Draw the alphabet with your foot 4-6 times a day 3. Wear flat shoes. He should not go up or down inclines or go up or down ladders. Disposition Disposition: Home, Self Care
== END 2023-09-21 07:50 | disposition home or self-care (01) ==
LOC: ED 07:30
PROVIDERS: Emergency Provider Emergency Medicine; PCP Internal Medicine; Visit Provider Emergency Medicine
DX: S93.402A Sprain of unspecified ligament of left ankle, initial encounter (principal); F17.210 Nicotine dependence, cigarettes, uncomplicated; F12.90 Cannabis use, unspecified, uncomplicated; X58.XXXA Exposure to other specified factors, initial encounter
CPT/HCPCS: 99282

== ENCOUNTER 2023-11-11 08:12 | Emergency (ER) | payer MEDICAID, SELFPAY ==
[2023-11-11 08:13] VITALS: BP 117/82; PULSE 79; RESP 16; TEMP 36.6; O2SAT 100
[2023-11-11 08:20] VITALS: BMI 34.1
--- NOTE | 2023-11-11 08:32 | EDS_ITS ---
HPI HPI - GI History of Present Illness Chief Complaint: Abd Pain Detail of Chief Complaint: Abdominal pain Informant: patient Narrative Narrative: Patient presents to the emergency department complaint of abdominal pain that started last evening after eating [employer]. Patient states the pain is underneath her right ribs and slightly goes to her back. She has had nausea but no vomiting. She denies diarrhea. She denies fever. She had similar pain maybe 10 years ago she says. No recent illness. Patient with prior hysterectomy but no other abdominal surgeries. Currently rates her pain a 7 out of 10. PFS PFS Medical History (Updated 11/11/23 @ 13:[address] Kathia Dean, DO) Anxiety Depression GERD (gastroesophageal reflux disease) H/O thoracic outlet syndrome IBS (irritable bowel syndrome) Left shoulder strain PTSD (post-traumatic stress disorder) Thoracic outlet syndrome Home Medications albuterol sulfate 90 mcg/actuation aerosol inhaler 2 puff inhalation Q4H PRN PRN Asthma ##0 05/03/16 [Rx Last Taken 11/17/18] pantoprazole 20 mg tablet,delayed release 20 mg PO BID 04/26/20 [History Last Taken Unknown] lorazepam 0.5 mg tablet 0.5 mg PO QHS PRN Anxiety 04/25/23 [History Last Taken Unknown] hydrocodone-acetaminophen 5-325mg 5mg-325mg 1 tab PO Q4H PRN PRN Pain 2 days #10 TABLETS 11/11/23 [Rx Last Taken Unknown] sucralfate 1 gram tablet (Carafate) 1 g PO BID PRN gerd #20 tabs 11/11/23 [Rx Last Taken Unknown] Allergy/AdvReac Type Severity Reaction Status Date / Time benzonatate Allergy Rash Verified 11/11/23 08:15 [From Tessalon Perles] diazepam [From Valium] Allergy Hives Verified 11/11/23 08:15 morphine Allergy Itching Verified 11/11/23 08:15 Penicillins Allergy Hives Verified 11/11/23 08:15 venom-honey bee Allergy Hives Verified 11/11/23 08:15 [bee venom (honey bee)] Family History Father Heart disease Hypertension Myocardial infarction Mother Cancer lung, throat and Lupus Surgical History History of esophagogastroduodenoscopy (EGD) History of left oophorectomy S/P breast biopsy S/P colonoscopy Status post hysterectomy Social History household members: none Smoking Status: Current every day smoker tobacco type: cigarettes alcohol intake: current alcohol intake frequency: holidays/special occasions only substance use type: marijuana caffeine: Yes what type of physical activity do you participate in: none seatbelt use: sometimes do you feel safe at home: Yes additional social history: Boyfriend-Sha- Works at [employer] Patient works at [employer] ROS ROS ED Review of Systems ROS Unobtainable: other Constitutional Constitutional ED: Reports lethargy; Denies chills, fever(s), sweats or weight loss Eyes Eyes: Denies blurry vision, change in vision or diplopia ENT ENT ED: Denies rhinorrhea or sore throat Cardiovascular Cardiovascular: Denies chest pain, orthopnea or racing heartbeat Respiratory/Chest Respiratory/Chest: Denies cough, dyspnea, dyspnea on exertion, orthopnea or sputum Gastrointestinal Gastrointestinal: Reports abdominal pain and nausea; Denies diarrhea or vomiting Genitourinary Genitourinary ED: Denies dysuria, hematuria or urinary frequency Musculoskeletal Musculoskeletal: Denies arthralgias, back pain, myalgias or neck pain Integumentary Denies abscess, Abrasions or rash Neurologic Neurologic: Denies headache(s) or weakness Psychiatric Psychiatric: Denies anxiety, depression or suicidal thoughts Endocrine Endocrinology: Denies polydipsia, polyphagia or polyuria Hematologic/Lymphatic Hematologic/Lymphatic: Denies easy bleeding, easy bruising or lymphadenopathy Allergic/Immunologic Allergic/Immunologic ED: Denies mouth swelling, tongue swelling or urticaria EXAM Physical Exam Const Vital Signs: 11/11/23 08:13 11/11/23 12:35 11/11/23 13:36 Temperature 97.9 F 97.9 F Temperature Source Temporal Oral Pulse Rate 79 55 L Respiratory Rate 16 18 14 Blood Pressure 117/82 H 132/72 H Blood Pressure Mean 93 92 Pulse Ox 100 94 Oxygen Delivery Method Room Air Room Air Positive well nourished and well developed General Appearance ED: well developed and NAD HEENT Reports TM's clear and moist mucous membranes normocephalic and atraumatic; Negative for trauma or tenderness Tympanic Membrane ED: Yes TM's clear Eyes PERRL and EOMs intact bilaterally General Eye ED: Negative for pale conjunctiva or scleral icterus Neck no lymphadenopathy, supple and no JVD General: Negative for tenderness Chest Wall inspection of chest normal and palpation of chest normal Chest: Negative for tenderness Resp normal respiratory effort and clear to auscultation bilaterally Effort and Inspection: Negative for respiratory distress or pain with movement Auscultation: Negative for rhonchi, wheezes or diminished lung sounds Cardio regular rate, regular rhythm, S1 normal heart sound, S2 normal heart sound and no murmurs Peripheral Pulses: pulses 2+ throughout GI normal to inspection, nondistended, normoactive bowel sounds, soft to palpation, non-distended and no masses GI Narrative: Tenderness palpation over right upper quadrant with some guarding and positive Dave sign. There is no rebound or rigidity. Back/Spine no CVA tenderness and no thoracic nor lumbar tenderness Extremity normal to inspection General Extremety ED: Negative for edema General Extremity: Negative for edema Neuro oriented x3, CN's II-XII intact bilaterally, no sensory deficits noted and gait normal Sensorium / Orientation: awake, alert, oriented to person, oriented to place and oriented to time Motor Exam: strength 5/5 throughout and strength abnormal Psych mental status grossly normal Skin no rashes or lesions noted and no wounds MDM MDM MDM Narrative Medical decision making narrative: Patient with right upper quadrant pain as well as nausea. In the differential would be gallbladder disease versus peptic ulcer disease versus pancreatitis or kidney stone. IV line established. Patient was medicated Dilaudid and Zofran. CBC with differential count of 7.6 with hemoglobin 14.8 and platelet count of 201. Chemistries unremarkable. LFTs were normal. Lipase was normal. Urinalysis was normal. Gallbladder ultrasound obtained was normal. She had a CT scan of the ab pelvis with IV contrast that was unremarkable. Patient was given a second dose of Dilaudid for continued pain. At this point she is asking if this could be an ulcer certainly this is within the differential. Patient will be given a prescription for Carafate as she already takes a proton pump inhibitor. 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 She given a few [place] for pain. Lab Data Attestation: I reviewed the patient's lab results. Labs: Laboratory Results - last 24 hr 11/11/23 11/11/23 08:35 09:50 WBC 7.6 RBC 4.64 Hgb 14.8 Hct 43.3 MCV 93.3 MCH 31.9 MCHC 34.2 RDW Std Deviation 43.0 RDW Coeff of Reji 12.5 Plt Count 201 MPV 10.3 Immature Gran % (Auto) 0.400 Neut % (Auto) 57.5 Lymph % (Auto) 33.8 [place] % (Auto) 5.6 Eos % (Auto) 2.0 Baso % (Auto) 0.7 Absolute Neuts (auto) 4.4 Absolute Lymphs (auto) 2.58 Nucleated RBC % 0 Sodium 140 Potassium 4.0 Chloride 110 H Carbon Dioxide 26.0 Anion Gap 4 L BUN 8 Creatinine 0.68 Estim Creat Clear Calc 80.57 Est GFR (MDRD) Af Amer 124 Est GFR (MDRD) Non-Af 102 BUN/Creatinine Ratio 11.8 Glucose 96 Calcium 10.0 Total Bilirubin 0.60 AST 15 ALT 22 Alkaline Phosphatase 69 Total Protein 7.8 Albumin 4.0 Globulin 3.8 Albumin/Globulin Ratio 1.1 Lipase 18 Urine Color Yellow Urine Clarity Clear Urine pH 7.0 Ur Specific Simpson 1.015 Urine Protein 15 H Urine Glucose (UA) Normal Urine Ketones 15 H Urine Occult Blood Negative Urine Nitrite Negative Urine Bilirubin Negative Urine Urobilinogen 1 H Ur Leukocyte Esterase Negative Urine RBC 0 SEEN Urine WBC 0 SEEN Ur Squamous Epith Cells 0 SEEN Amorphous Sediment 2+ Urine Bacteria 0 SEEN Urine Mucus 0 SEEN Radiography Diagnostic Testing: Clinical Impression(s) from Imaging Studies Gallbladder Ultrasound 11/11/23 09:21 IMPRESSION: Normal right upper quadrant ultrasound examination. Electronically Signed: Pk Billings MD at 12:09 EST , Abdomen/Pelvis CT 11/11/23 12:11 IMPRESSION: Negative CT of the abdomen and pelvis with intravenous contrast and unchanged when compared to 05/27/2023. Electronically Signed: Pk Billings MD at 13:03 EST , Discharge Plan Triage Chief Complaint: Abd Pain ED Provider: Kathia Dean Dx/Rx/DC Orders Clinical Impression: Abdominal pain Instructions: ED Abdominal Pain Unkn Cause Fem Prescriptions: New sucralfate [Carafate] 1 gram tablet 1 g PO BID PRN (Reason: gerd) Qty: 20 0RF hydrocodone-acetaminophen [hydrocodone-acetaminophen] 5-325 mg tablet 1 tab PO Q4H PRN PRN (Reason: Pain) 2 Days Qty: 10 0RF No Action albuterol sulfate 1 INHALER inhaler 2 puff INHALATION Q4H PRN PRN (Reason: Asthma) Qty: 0 0RF Patient Comments: asthma pantoprazole 20 MG tablet 20 mg PO BID lorazepam 0.5 mg tablet 0.5 mg PO QHS PRN (Reason: Anxiety) Patient Comments: TAKE 1 TABLET BY MOUTH AT BEDTIME NEEDED FOR ANXIETY Primary Care Provider: Yassine Link Referrals: Bartolo Gonzalez MD [Med Staff - Active Staff] - 3-5 Days Yassine Link MD [Primary Care Provider] - Disposition Disposition: Home, Self Care Discharge Date/Time: 11/11/23 13:37
[2023-11-11] MEDS: HYDROmorphone 1 MG/ML Syringe IV ×2 (08:56→12:09)
[2023-11-11] MEDS: 0.9% Normal Saline (1000mL) 1,000 ML 125 ML IV (08:56)
[2023-11-11] MEDS: Ondansetron 4 MG/2 ML Vial IV (08:56)
[2023-11-11 08:58] LABS: Absolute Lymphocyte Count 2.58 X10^3/uL (0.83-4.51); Absolute Neutrophil Count 4.4 X10^3/uL (2.0-7.7); Basophil# 0.05 X10^3/uL; Basophil% 0.7 % (0-1); Eosinophil# 0.15 X10^3/uL; Hematocrit 43.3 % (37-47); Hemoglobin 14.8 g/dL (12.0-15.0); Lymphocyte # 2.58 X10^3/ul (0.83-4.51); Lymphocyte % 33.8 % (19-41); Mean Corp Hgb Conc 34.2 g/dL (32-36); Mean Corpuscular Hgb 31.9 pg (27.0-32.0); Mean Corpuscular Volume 93.3 fL (81-99); Mean Platelet Vol. 10.3 fl (6.2-12.0); Monocyte# 0.43 X10^3/uL; Monocyte% 5.6 % (0-10); NRBC Flagged by Analyzer 0 % (0-5); Neutrophil # 4.39 X10^3/uL (2.7-7.7); Neutrophil % 57.5 % (47-70); Platelet Count 201 K/mm3 (150-450); RBC Distribution Width CV 12.5 % (11.6-14.6); Red Blood Count 4.64 M/mm3 (4.2-5.4); White Blood Count 7.6 K/mm3 (4.4-11.0)
[2023-11-11 09:15] LABS: ALB/GLOB Ratio 1.1 RATIO (0.9-2.4); AST(SGOT) 15 U/L (15-37); Alanine Aminotransfer ALT/SGPT 22 U/L (13-56); Alkaline Phosphatase 69 U/L (45-117); Anion Gap 4 (5-15); BUN 8 mg/dL (7-18); BUN/Creat Ratio 11.8 RATIO (10-20); Chloride 110 mmol/L (98-107); Creatinine, Serum 0.68 mg/dL (0.55-1.02); EST Glomerular Filtration Rate 102 mL/min (>60); Est Glom Filt Rate - Afr Amer 124 mL/min (>60); Estimated Creatinine Clearance 80.57 ml/min; Globulin 3.8 g/dL (2.2-4.2); Glucose 96 mg/dL (74-106); Lipase 18 U/L (13-75); Protein, Total 7.8 g/dL (6.4-8.2); Sodium Level 140 mmol/L (136-145)
--- NOTE | 2023-11-11 09:21 | US_ITS ---
STUDY: ABDOMINAL ULTRASOUND - RIGHT UPPER QUADRANT REASON FOR VISIT: Female, 37 years old abdominal pain TECHNIQUE: Ultrasound evaluation of the right upper quadrant was performed with real-time and static zhao-scale imaging. TECHNICAL QUALITY: Adequate. COMPARISON: CT abdomen and pelvis with IV contrast 05/27/2023. Gallbladder ultrasound 05/30/2022. FINDINGS: Liver: The liver measures 15.6 cm. There is normal echogenicity of the liver. The bile ducts are within normal limits. There is hepatic color flow. The direction of portal flow is hepatopetal. There is no demonstrated mass lesion. Gallbladder: Normal distended gallbladder. The gallbladder wall measures 2 mm. There is a negative sonographic Dave''s sign. There is no pericholecystic fluid. There are no gallstones. Common Bile Duct (C.B.D.): The common bile duct measures 4 mm. Pancreas: Suboptimal visualization due to overlying bowel gas. Right Kidney: Normal size of the right kidney. The right kidney measures 11.8 x 5.2 x 4.4 cm. Normal renal cortex. The right cortex measures 1.5 cm. There is no demonstrated renal mass or cyst. There is no right hydronephrosis. US/Gallbladder IMPRESSION: Normal right upper quadrant ultrasound examination. Electronically Signed: Pk Billings MD at 12:09 [facility] ,
[2023-11-11 09:54] LABS: Bacteria 0 SEEN /hpf (None Seen); Mucous, Urine 0 SEEN /hpf (<or=2+); Red Blood Cells-Urine 0 SEEN /hpf (0-5); Squamous Epithelial Cells - UA 0 SEEN /hpf (5-10); White Blood Cells 0 SEEN /hpf (0-5)
[2023-11-11 09:58] LABS: Color, Urine Yellow (Yellow); Glucose, Dipstick Normal (Normal); Ketone-Dipstick 15 mg/dl (Negative); Leukocyte Esterase-Dipstick Negative /ul (Negative); Nitrite-Dipstick Negative (Negative); Occult Blood-Urine Negative /ul (Negative); Protein-Dipstick 15 mg/dl (Negative); Specific Gravity, Urine 1.015 (1.002-1.030); Urine Bilirubin Dipstick Negative (Negative); Urine Clarity Clear (Clear); Urine Urobilinogen 1 mg/dl (Normal)
[2023-11-11 10:11] LABS: Amorphous Sediment 2+
--- NOTE | 2023-11-11 12:11 | CT_ITS ---
EXAM: CT ABDOMEN AND PELVIS WITH INTRAVENOUS CONTRAST CLINICAL INDICATION: Abdominal pain. TECHNIQUE: Helically acquired images were obtained of the abdomen and pelvis with intravenous contrast. This CT exam was performed using one or more of the following dose reduction techniques: automated exposure control, adjustment of the mA and/or kV according to patient size, and/or use of iterative reconstruction technique. CONTRAST: IV 100mL Isovue-370 RADIATION DOSE: CTDIvol = 22.96 mGy, DLP = 888.34 mGy-cm COMPARISON: CT abdomen and pelvis with IV contrast 05/27/2023. FINDINGS: LOWER THORAX: Unremarkable. Lung bases are clear. No cardiomegaly. No significant pericardial effusion. ABDOMEN: LIVER: Unremarkable. Homogeneous. No focal mass. GALLBLADDER AND BILE DUCTS: Unremarkable. No calcified gallstones. No gallbladder distention or wall edema. No intra- or extrahepatic biliary ductal dilation. PANCREAS: Unremarkable. No focal cystic or solid mass. SPLEEN: Unremarkable. Normal size without focal cystic or solid mass. ADRENALS: Unremarkable. No nodules. KIDNEYS AND URETERS: Unremarkable. Normal renal size and position. No hydronephrosis. STOMACH AND BOWEL: Unremarkable. No stomach or bowel distention. No focal inflammatory change. PELVIS: APPENDIX: Normal. BLADDER: Unremarkable. REPRODUCTIVE: Unremarkable as visualized. No mass. ABDOMEN and PELVIS: INTRAPERITONEAL SPACE: Unremarkable. No ascites or other fluid collection. No free air. BONES/JOINTS: Unremarkable. No suspicious lytic or blastic abnormality. SOFT TISSUES: Unremarkable. No discrete abdominal or pelvic wall hernia. VASCULATURE: Unremarkable. Abdominal aorta is non-dilated. LYMPH NODES: Unremarkable. No enlarged lymph nodes. CT/Abdomen/Pelvis W IV Cont ONLY IMPRESSION: Negative CT of the abdomen and pelvis with intravenous contrast and unchanged when compared to 05/27/2023. Electronically Signed: Pk Billings MD at 13:03 EST ,
[2023-11-11 12:35] VITALS: BP 132/72; PULSE 55; RESP 18; TEMP 36.6; O2SAT 94
[2023-11-11 13:36] VITALS: RESP 14
== END 2023-11-11 13:37 | disposition home or self-care (01) ==
PROVIDERS: Emergency Provider Emergency Medicine; PCP Internal Medicine; Visit Provider Emergency Medicine
DX: R10.9 Unspecified abdominal pain (principal); F17.210 Nicotine dependence, cigarettes, uncomplicated; F12.90 Cannabis use, unspecified, uncomplicated; F41.9 Anxiety disorder, unspecified; F32.A Depression, unspecified; K21.9 Gastro-esophageal reflux disease without esophagitis; Z79.899 Other long term (current) drug therapy
CPT/HCPCS: 74177; 76705; 80053; 81001; 83690; 85025; 96361; 96374; 96375; 96376; 99284; J7030; Q9967; A4216; J2405

== ENCOUNTER 2023-11-19 12:45 | Emergency (ER) | payer MEDICAID, SELFPAY ==
[2023-11-19 12:46] VITALS: BP 109/80; PULSE 98; RESP 16; TEMP 36.2; O2SAT 99; BMI 33.5
--- NOTE | 2023-11-19 13:02 | EX.ED.DYSGE1 ---
HPI History of Present Illness Chief Complaint: Abscess Detail of Chief Complaint: Abscess left buttocks Informant: patient Onset/Context/Timing Onset: Weeks (Onset 1 week ago) Context: Sudden Onset Timing: Continuous Quality: Pain Location: Superior medial aspect of left buttocks Current Severity: Moderate Maximum Severity: Severe Worsened by: Sitting Relieved by: Nothing Associated Symptoms Associated Symptoms: Denies fever or chills Narrative Narrative: Patient is a 38-year-old woman with history of irritable bowel, GERD, depression anxiety who presents with abscess left buttocks. Started a week ago. She attempted to squeeze the pus out without success. She did not poke it with anything. She states she sat in hot water hoping that it would spontaneously drain it did not. She presently reports the pain to be severe. She denies fever or chills. Denies history medic fever, heart murmur or mitral valve prolapse. She is on no immunosuppressive meds. She is not diabetic. She denies history of pilonidal cyst. Prior similar symptoms: Yes Recent Illness/Hospitalization: No PFSH PFSH Medical History Anxiety Depression GERD (gastroesophageal reflux disease) H/O thoracic outlet syndrome IBS (irritable bowel syndrome) Left shoulder strain PTSD (post-traumatic stress disorder) Thoracic outlet syndrome Home Medications doxycycline monohydrate 100 mg capsule 100 mg PO BID #14 CAPSULES 11/19/23 [Rx Last Taken Unknown] estradiol 1 mg tablet 1 mg PO DAILY 11/19/23 [History Last Taken 11/19/23] estradiol 2 mg tablet 2 mg PO DAILY 11/19/23 [History Last Taken 11/19/23] Allergy/AdvReac Type Severity Reaction Status Date / Time benzonatate Allergy Rash Verified 11/19/23 13:30 [From Tessalon Perles] diazepam [From Valium] Allergy Hives Verified 11/19/23 13:30 morphine Allergy Itching Verified 11/19/23 13:30 Penicillins Allergy Hives Verified 11/19/23 13:30 venom-honey bee Allergy Hives Verified 11/19/23 13:30 [bee venom (honey bee)] Family History Father Heart disease Hypertension Myocardial infarction Mother Cancer lung, throat and Lupus Surgical History History of esophagogastroduodenoscopy (EGD) History of left oophorectomy S/P breast biopsy S/P colonoscopy Status post hysterectomy Social History household members: none Smoking Status: Current every day smoker tobacco type: cigarettes alcohol intake: current alcohol intake frequency: holidays/special occasions only substance use type: marijuana caffeine: Yes what type of physical activity do you participate in: none seatbelt use: sometimes do you feel safe at home: Yes additional social history: Boyfriend-Sha- Works at [employer] Patient works at [employer] [facility] ED Constitutional Constitutional ED: Denies chills, fever(s), subjective, sweats or weight loss Eyes Eyes: Denies blurry vision, change in vision or diplopia Cardiovascular Cardiovascular: Denies chest pain or palpitations Respiratory/Chest Respiratory/Chest: Denies cough, dyspnea or dyspnea on exertion Gastrointestinal Gastrointestinal: Denies abdominal pain, nausea or vomiting Musculoskeletal Musculoskeletal: Denies arthralgias, back pain, myalgias or neck pain Integumentary Reports abscess; Denies Abrasions or rash Neurologic Neurologic: Denies paresthesias or weakness Hematologic/Lymphatic Hematologic/Lymphatic: Reports systems reviewed and no addt'l complaints, except as documented and other Details: Patient is on no anticoagulant or antithrombotic medication. EXAM Physical Exam Const Vital Signs: 11/19/23 12:46 11/19/23 13:45 Temperature 97.2 F L 98.2 F Temperature Source Temporal Pulse Rate 98 93 Respiratory Rate 16 14 Blood Pressure 109/80 115/70 Blood Pressure Mean 89 Pulse Ox 99 100 Oxygen Delivery Method Room Air Nasal Cannula Oxygen Flow Rate (L/min) 2 Positive well nourished, well developed and obese Constitutional Narrative: Patient is in obvious discomfort. She is squatting at the side of the bed. She states she cannot sit down. She is crying. General Appearance ED: well developed; Negative for cyanotic, diaphoretic, NAD or pallor Nutritional Appearance: obese HEENT Reports moist mucous membranes HEENT Narrative: Head is atraumatic and normocephalic. External ears normal. Nares patent. Posterior pharynx is normal. Eyes PERRL and EOMs intact bilaterally Neck no lymphadenopathy, supple and no JVD Chest Wall inspection of chest normal and palpation of chest normal Resp normal respiratory effort and clear to auscultation bilaterally Cardio regular rate, regular rhythm, S1 normal heart sound, S2 normal heart sound and no murmurs GI normal to inspection, nondistended, normoactive bowel sounds, non-tender, non-distended and no masses; Negative for hepatosplenomegaly Back/Spine no CVA tenderness Extremity normal to inspection General Extremety ED: Negative for edema or tenderness General Extremity: Negative for edema Neuro oriented x3, CN's II-XII intact bilaterally and no sensory deficits noted Sensorium / Orientation: alert Psych Mood & Affect: tearful Skin no rashes or lesions noted, No no wounds and skin turgor normal Skin Narrative: Patient has cellulitis that 12 x 10 cm in size. The fluctuant area is the size of a nickel. General Skin Exam: Negative for jaundice or pallor Trauma: abrasion MDM MDM MDM Narrative Medical decision making narrative: Patient has a buttocks abscess with cellulitis that required I&D. Since patient is not immune suppressed does not have diabetes and this has fostered for over a week we will treat with p.o. antibiotics after I&D since patient last ate at 11:30 AM. She had to tater tots. She has not eaten otherwise since last evening. Patient received first dose of doxycycline in light of patient's allergy to penicillin with hives. Procedures Procedural Sedation 1 (Initial Baseline): Consent Signed: Yes Any Problems With Anesthesia: No You/Your family experience fever (hyperthermia) w/anesthesia: No Sedation medication: Propofol Dose: 130 Route: IV Total Moderate Sedation Units: 8 Maliampati Score: Class I ASA Classification: II Comment:: Monitor revealed a heart rate of 72 at the beginning of the procedure. pCO2 was 44. Saturation was 96%. Patient was prepped draped sterile manner. The area was cleansed with Betadine. The abscess was anesthetized by local infiltration and field block. Incision was made using a 10 blade. Length of incision 1.5 cm. There was approximately 10 cc of. Material that drained spontaneously. Blunt dissection was undertaken with an additional 5 cc of purulent material. Wick was placed using 1 inch Nu Gauze. Patient tolerated procedure. There was no complications. At the end the procedure patient's heart rate was 74 and a normal sinus rhythm on the monitor with a pCO2 of 42. Discharge Plan Triage Chief Complaint: Abscess ED Provider: Grant Mercado Dx/Rx/DC Orders Clinical Impression: Cellulitis and abscess of buttock, Anxiety Instructions: ED Abscess Incision And Drainage, ED Cellulitis Prescriptions: New doxycycline monohydrate 100 mg capsule 100 mg PO BID Qty: 14 0RF No Action estradiol 1 mg tablet 1 mg PO DAILY estradiol 2 mg tablet 2 mg PO DAILY Primary Care Provider: Yassine Link Referrals: Yassine Link MD [Primary Care Provider] - Activity Restrictions/Additional Instructions: 1. Take antibiotics till gone 2. Follow-up with Dr. Link to have wick removed in 2 to 3 days. 3. If you develop a temperature greater than 100 or have shaking chills return to the emergency department Disposition Disposition: Home, Self Care
[2023-11-19] MEDS: Lidocaine 1% (20 ml mdv) 20 ML Vial INFILT (13:16)
[2023-11-19] MEDS: HYDROmorphone 0.5 MG/0.5 ML SYRINGE IV (13:16)
[2023-11-19] MEDS: Propofol 200 MG/20 ML Vial IV BOLUS (13:17)
[2023-11-19] MEDS: Ondansetron 4 MG/2 ML Vial IV (13:18)
[2023-11-19 13:45] VITALS: BP 115/70; PULSE 93; RESP 14; TEMP 36.8; O2SAT 100
[2023-11-19 13:50] VITALS: BP 107/70; O2SAT 100
[2023-11-19 13:55] VITALS: BP 103/63; O2SAT 100
[2023-11-19] MEDS: Doxycycline 100 MG CAPSULE PO (14:35)
[2023-11-19] MEDS: HYDROcodone Bitartrate/Apap 5/325 Tablet PO (14:35)
[2023-11-19 14:37] VITALS: BP 107/65; PULSE 92; RESP 16; O2SAT 98
== END 2023-11-19 14:58 | disposition home or self-care (01) ==
PROVIDERS: Emergency Provider Emergency Medicine; PCP Internal Medicine; Visit Provider Emergency Medicine
DX: L02.31 Cutaneous abscess of buttock (principal); L03.317 Cellulitis of buttock; F41.9 Anxiety disorder, unspecified; F17.210 Nicotine dependence, cigarettes, uncomplicated; F12.90 Cannabis use, unspecified, uncomplicated; E66.9 Obesity, unspecified; Z23 Encounter for immunization
CPT/HCPCS: 10060; 90471; 96374; 96375; 99284; J7030; A4216; J2405

== ENCOUNTER 2023-11-25 04:53 | Emergency (ER) | payer MEDICAID, SELFPAY ==
[2023-11-25 04:54] VITALS: BP 105/59; PULSE 72; RESP 16; TEMP 36.6; O2SAT 99; BMI 31.4
--- NOTE | 2023-11-25 05:12 | EDS_ITS ---
HPI History of Present Illness Chief Complaint: Wound Check [facility] Medical History Anxiety Depression GERD (gastroesophageal reflux disease) H/O thoracic outlet syndrome IBS (irritable bowel syndrome) Left shoulder strain PTSD (post-traumatic stress disorder) Thoracic outlet syndrome Home Medications doxycycline monohydrate 100 mg capsule 100 mg PO BID #14 CAPSULES 11/19/23 [Rx Last Taken Unknown] estradiol 1 mg tablet 1 mg PO DAILY 11/19/23 [History Last Taken 11/19/23] estradiol 2 mg tablet 2 mg PO DAILY 11/19/23 [History Last Taken 11/19/23] hydrocodone-acetaminophen 5-325mg 5mg-325mg 1 tab PO Q4H PRN PRN Pain 1 day #4 TABLETS 11/19/23 [Rx Last Taken Unknown] Allergy/AdvReac Type Severity Reaction Status Date / Time benzonatate Allergy Rash Verified 11/25/23 05:01 [From Tessalon Perles] diazepam [From Valium] Allergy Hives Verified 11/25/23 05:01 morphine Allergy Itching Verified 11/25/23 05:01 Penicillins Allergy Hives Verified 11/25/23 05:01 venom-honey bee Allergy Hives Verified 11/25/23 05:01 [bee venom (honey bee)] Family History Father Heart disease Hypertension Myocardial infarction Mother Cancer lung, throat and Lupus Surgical History History of esophagogastroduodenoscopy (EGD) History of left oophorectomy S/P breast biopsy S/P colonoscopy Status post hysterectomy Social History household members: none Smoking Status: Current every day smoker tobacco type: cigarettes alcohol intake: current alcohol intake frequency: holidays/special occasions only substance use type: marijuana caffeine: Yes what type of physical activity do you participate in: none seatbelt use: sometimes do you feel safe at home: Yes additional social history: Boyfriend-Sha- Works at [employer] Patient works at [employer] EXAM Physical Exam Const Vital Signs: 11/25/23 04:54 Temperature 97.9 F Temperature Source Oral Pulse Rate 72 Respiratory Rate 16 Blood Pressure 105/59 L Blood Pressure Mean 74 Pulse Ox 99 Oxygen Delivery Method Room Air MDM MDM MDM Narrative Medical decision making narrative: HISTORY OF PRESENT ILLNESS: 38-year-old female here with wound check, buttock pain after rectal abscess that was incised and drained. REVIEW OF SYSTEMS: Pertinent positives: Rectal pain Pertinent negatives: Vomiting, fever PHYSICAL EXAM: Nursing triage notes reviewed, Vital signs reviewed Constitutional: please see mdm Extremities: No edema Rectal: (Obtained with filament maker Isai RN) left buttock with incision site is clean dry intact with no surrounding erythema, no crepitus, no pain on portion exam, there are some intertriginous changes as well. No obvious fluctuance or induration. No purulent drainage. There is serosanguineous drainage noted Skin: As above MEDICAL DECISION MAKING: Chief Complaint: Rectal pain External records reviewed: Prior ED visit reviewed seen on 11/19/2023 for left buttock abscess. Underwent procedural sedation. Factors affecting care: Anxiety, GERD, Social determinants of health: PDMP reviewed, multiple narcotic prescriptions from multiple different providers MDM Narrative: Patient was hemodynamically stable, afebrile, nontoxic-appearing. Rectal exam showed no evidence of worse infection, reaccumulation of abscess, necrotizing fasciitis. Patient was encouraged take Tylenol, ibuprofen and to continue sitz bath as tolerated. She was encouraged to follow with her surgeon as well as her primary care physician for further outpatient evaluation and treatment. The patient and/or family, caregivers express understanding. The patient and/or family, caregivers agrees with the plan. Shared decision making: I will have a discussion with the patient and or visitors regarding risk/benefits of further testing or admission. They will be made aware of of the risk/benefits inherent in this decision they will be given the opportunity to voice understanding. Total critical care time today provided was at least 0 minutes. This excludes separately billable procedures. Critical care time (if documented) is secondary to the patient having high probability of clinically significant/life threatening deterioration in the patient's condition which required my urgent intervention. Impression: 1. Rectal pain 2. Rectal abscess Dispo: Discharge Discharge Plan Triage Chief Complaint: Wound Check ED Provider: Codey Dixon Dx/Rx/DC Orders Prescriptions: No Action estradiol 1 mg tablet 1 mg PO DAILY estradiol 2 mg tablet 2 mg PO DAILY doxycycline monohydrate 100 mg capsule 100 mg PO BID Qty: 14 0RF hydrocodone-acetaminophen [hydrocodone-acetaminophen] 5-325 mg tablet 1 tab PO Q4H PRN PRN (Reason: Pain) 1 Days Qty: 4 0RF Primary Care Provider: Yassine Link Referrals: Yassine Link MD [Primary Care Provider] -
--- OUTSIDE RECORDS SUMMARY | 2023-11-25 05:14 | XMS RPT_ITS | CCD ---
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 [employer] Name Role Phone Yassine Radford MD Primary Care Provider [phone] Florin Patel MD Unavailable Bartolo Gonzalez MD Unavailable PANCHITO LOPEZ Attending Unavailable YASSINE RADFORD Primary Care Unavailable Yassine Radford MD Primary Care Provider [phone] Florin Patel MD Unavailable Bartolo Gonzalez MD Unavailable PRABHAKAR SAMANIEGO, DR HURT Primary Care Physician [phone] PRABHAKAR SAMANIEGO, DR HURT Primary Care Unavailwilda CUNNINGHAM MD, ROMELIA Cox Attending Unavailable NORRIS SAMANIEGO, ROMELIA Cox Attending Unavailable PARBHAKAR SAMANIEGO, DR HURT Primary Care Unavailwilda REAVES MD, MAYI Attending Unavailable PRABHAKAR SAMANIEGO, DR HURT Primary Care UnavailYASSINE Perez Primary Care Unavailable ESTEVAN BLACKMAN Referring Unavailable BEATRICE ROBERTS Attending Unavailable YASSINE RADFORD Primary Care Unavailable ESTEVAN BLACKMAN Referring Unavailable GERMAN PIRES Attending Unavailable YASSINE RADFORD Primary Care Unavailable YASSINE RADFORD Primary Care Unavailable YASSINE RADFORD Attending Unavailable GERMAN PIRES Attending Unavailable YASSINE RADFORD Primary Care Unavailable YASSINE RADFORD Primary Care Unavailable ESTEVAN BLACKMAN Attending Unavailable YASSINE RADFORD Referring Unavailable YASSINE RADFORD Primary Care Unavailable RADFORD, STEVIE Attending Unavailable TAYLOR ESPARZA Attending Unavailable RADFORD, STEVIE Primary Care Unavailable RADFORD, STEVIE Referring Unavailable RADFORD, STEVIE Attending Unavailable RADFORD, STEVIE Primary Care Unavailable RADFORD, STEVIE Attending Unavailable RADFORD, STEVIE Primary Care Unavailable RADFORD, STEVIE Primary Care Unavailable GERMAN PIRES Attending Unavailable RADFORD, STEVIE Primary Care Unavailable RADFORD, STEVIE Attending Unavailable HAO BUTCHER Attending Unavailable RADFORD, STEVIE Primary Care Unavailable PANCHITO LOPEZ Referring Unavailable RADFORD, STEVIE Primary Care Unavailable RADFORD, STEVIE Attending Unavailable Allergies Allergy Classification Reported Allergen(s) Allergy Type Date of Onset Reaction(s) Facility (20 sources) benzonatate; Translations: [BENZONATATE] Drug Allergy 7 [facility] Work Phone: (20 sources) diazePAM; Translations: [DIAZEPAM] Drug Allergy 5 [facility] Work Phone: (20 sources) Morphine; Translations: [MORPHINE] Drug Allergy 4 [facility] (7 sources) Penicillins; Translations: [PENICILLINS] Propensity to adverse reactions to drug 1 Other: See Comments [facility] Work Phone: (20 sources) Bees; Translations: [BEES] Allergy to substance 1 Anaphylaxis [facility] Work Phone: (20 sources) Penicillins Propensity to adverse reactions to drug 1 Other: See Comments [facility] Work Phone: (1 source) Bee/Wasp/Ant venom Allergy to substance swelling [facility] (1 source) Penicillin; Translations: [penicillin] Drug Allergy [facility] Medications Current Medications Medication Drug Class(es) Dates Sig (Normalized) Sig (Original) acetaminophen 325 mg / oxyCODONE hydrochloride 5 mg oral tablet (18 sources) Opioid Agonist Start: 11-21-2023 End: 11-22-2023 take 1 tablet by mouth every four hours as needed for pain Percocet 5 mg-325 mg oral tablet Dose = 1 tab(s), Oral, q4h, PRN for pain, X 1 day(s), # 5 tab(s), 0 Refill(s), Cellulitis, 72.7 Start Date: 11/21/23 Stop Date: 11/22/23 Status: Ordered Completed/Discontinued Medications Medication Drug Class(es) Dates Sig (Normalized) Sig (Original) acetaminophen 500 mg oral tablet (20 sources) Start: 09-27-2021 End: 03-12-2023 take 2 tablets by mouth every eight hours acetaminophen (TYLENOL) 500 mg tablet Take 2 tablets by mouth every 8 hours. 0 09/27/2021 03/12/2023 Discontinued (Non-Compliance) Problems Active Problems Problem Classification Problem Date Documented Date Episodic/Chronic Abdominal pain (8 sources) Lower abdominal pain; Translations: [Lower abdominal pain, unspecified] Episodic Anxiety disorders (20 sources) Mixed anxiety and depressive disorder; Translations: [Other specified anxiety disorders] Onset: 05-23-2022 05-23-2022 Chronic Asthma (20 sources) Asthma; Translations: [Unspecified asthma, uncomplicated] Onset: 07-26-2006 10-08-2015 Chronic Esophageal disorders (20 sources) Gastroesophageal reflux disease; Translations: [Gastro-esophageal reflux disease without esophagitis] Onset: 08-23-2006 08-23-2006 Chronic Genitourinary symptoms and ill-defined conditions (1 source) Bacteriuria; Translations: [Bacteriuria] Episodic Inflammatory diseases of female pelvic organs (1 source) Furuncle of vulva 10-26-2022 Episodic Menopausal disorders (2 sources) Menopausal symptom; Translations: [Premature menopause] 06-04-2023 Chronic Nausea and vomiting (1 source) Nausea and vomiting; Translations: [Nausea with vomiting, unspecified] 10-01-2023 Episodic Other aftercare (1 source) Surgical follow-up 05-17-2023 Episodic Other connective tissue disease (1 source) Myofascial pain syndrome; Translations: [Myalgia, other site] Episodic Other connective tissue disease (1 source) Myalgia, other site; Translations: [Myofascial pain syndrome] Onset: 08-31-2022 Episodic Other diseases of bladder and urethra (20 sources) Overactive bladder; Translations: [Overactive bladder] Onset: 07-28-2022 Chronic Other nervous system disorders (20 sources) Thoracic outlet syndrome; Translations: [Brachial plexus disorders] Onset: 06-14-2020 Chronic Other nervous system disorders (2 sources) Brachial plexus disorders; Translations: [TOS (thoracic outlet syndrome)] Onset: 09-26-2021 Chronic Other nervous system disorders (2 sources) Other chronic pain; Translations: [Chronic left shoulder pain] Onset: 08-31-2022 Chronic Other nervous system disorders (2 sources) Chronic postoperative pain; Translations: [Other chronic postprocedural pain] Chronic Other nervous system disorders (1 source) Acute postoperative pain; Translations: [Other acute postprocedural pain] Episodic Other non-traumatic joint disorders (3 sources) Chronic pain of left upper limb; Translations: [Pain in left shoulder] Episodic Other skin disorders (1 source) Folliculitis; Translations: [Follicular disorder, unspecified] Episodic Ovarian cyst (4 sources) Cyst of right ovary; Translations: [Unspecified ovarian cyst, right side] Episodic Poisoning by nonmedicinal substances (1 source) Bee sting; Translations: [Toxic effect of venom of bees, accidental (unintentional), sequela] Episodic Residual codes; unclassified (1 source) History of laparoscopy 05-10-2023 Episodic Residual codes; unclassified (1 source) History of right oophorectomy 05-10-2023 Episodic Skin and subcutaneous tissue infections (2 sources) Cellulitis; Translations: [Cellulitis, unspecified] Onset: 11-21-2023 Episodic Sprains and strains (1 source) Sprain of unspecified ligament of left ankle, subsequent encounter; Translations: [Sprain of left ankle, unspecified ligament, subsequent encounter] Onset: 09-21-2023 Episodic Substance-related disorders (20 sources) Tobacco user; Translations: [Nicotine dependence, unspecified, uncomplicated] Onset: 12-25-2006 12-25-2006 Chronic Past or Other Problems Problem Classification Problem Date Documented Date Episodic/Chronic Other non-traumatic joint disorders (16 sources) Shoulder pain; Translations: [Pain in right shoulder] Onset: 12-28-2022 Episodic Other non-traumatic joint disorders (10 sources) Pain in left shoulder; Translations: [Pain in joint, shoulder region] Onset: 08-31-2022 03-12-2023 Episodic Other non-traumatic joint disorders (1 source) Pain in right shoulder; Translations: [Acute pain of right shoulder] Onset: 12-28-2022 Episodic Residual codes; unclassified (9 sources) Noncompliance with medication regimen; Translations: [Non-adherence to medical treatment] Onset: 03-12-2023 Episodic Spondylosis; intervertebral disc disorders; other back problems (8 sources) Acute thoracic back pain; Translations: [Dorsalgia, unspecified] Onset: 08-31-2022 Episodic Results Test Name Value Interpretation Reference Range Facil ity Vital Signs Date Time Vital Sign Value Performing Clinician Facility 11-21-2023 15:46-0500 Body height 152.4 cm MAYI REAVES MD [facility] 11-21-2023 15:46-0500 Body temperature 98.24 [degF] MAYI REAVES MD [facility] 11-21-2023 15:46-0500 Body weight 72.7 kg MAYI REAVES MD [facility] 11-21-2023 15:46-0500 Diastolic Blood Pressure Non-Invasive 73 mm[Hg] MAYI REAVES MD [facility] 11-21-2023 15:46-0500 Heart rate 86 /min MAYI REAVES MD [facility] 11-21-2023 15:46-0500 Respiratory rate 18 /min MAYI REAVES MD [facility] 11-21-2023 15:46-0500 Systolic Blood Pressure Non-Invasive 119 mm[Hg] MAYI REAVES MD [facility] 05-28-2023 19:18-0400 Body weight 75.75 kg Yassine Radford MD Work Phone: [facility] 05-28-2023 19:18-0400 Diastolic blood pressure 62 mm[Hg] Yassine Radford MD Work Phone: [facility] 05-28-2023 19:18-0400 Heart rate 80 /min Yassine Radford MD Work Phone: [facility] 05-28-2023 19:18-0400 Respiratory rate 16 /min Yassine Radford MD Work Phone: [facility] 05-28-2023 19:18-0400 Systolic blood pressure 96 mm[Hg] Yassine Radford MD Work Phone: [facility] 12-28-2022 11:41-0500 Body temperature 97.3 [degF] Yassine Radford MD Work Phone: [facility] 12-28-2022 11:41-0500 Body weight 78.47 kg Yassine Radford MD Work Phone: [facility] 12-28-2022 11:41-0500 Diastolic blood pressure 68 mm[Hg] Yassine Radford MD Work Phone: [facility] 12-28-2022 11:41-0500 Heart rate 80 /min Yassine Radford MD Work Phone: [facility] 12-28-2022 11:41-0500 Respiratory rate 16 /min Yassine Radford MD Work Phone: [facility] 12-28-2022 11:41-0500 Systolic blood pressure 116 mm[Hg] aYssine Radford MD Work Phone: [facility] 12-01-2022 16:23-0500 Body temperature 97.81 [degF] Yassine Radford MD Work Phone: [facility] 12-01-2022 16:23-0500 Body weight 78.02 kg Yassine Radford MD Work Phone: [facility] 12-01-2022 16:23-0500 Diastolic blood pressure 72 mm[Hg] Yassine Radford MD Work Phone: [facility] 12-01-2022 16:23-0500 Heart rate 87 /min Yassine Radford MD Work Phone: [facility] 12-01-2022 16:23-0500 Respiratory rate 16 /min Yassine Radford MD Work Phone: [facility] 12-01-2022 16:23-0500 SaO2% (BldA) [Mass fraction] 99 % Yassine Radford MD Work Phone: [facility] 12-01-2022 16:23-0500 Systolic blood pressure 112 mm[Hg] Yassine Radford MD Work Phone: [facility] 11-03-2022 10:19-0500 Body temperature 97.81 [degF] German Pires 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.FISHER EEL SPEAR Work Phone: [facility] 11-03-2022 10:19-0500 Body weight 75.75 kg German Pires 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.FISHER EEL SPEAR Work Phone: [facility] 11-03-2022 10:19-0500 Diastolic blood pressure 60 mm[Hg] German Pires 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.FISHER EEL SPEAR Work Phone: [facility] 11-03-2022 10:19-0500 Heart rate 85 /min German Pires 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.FISHER EEL SPEAR Work Phone: [facility] 11-03-2022 10:19-0500 SaO2% (BldA) [Mass fraction] 100 % German Pires 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.FISHER EEL SPEAR Work Phone: [facility] 11-03-2022 10:19-0500 Systolic blood pressure 118 mm[Hg] German Pires 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.FISHER EEL SPEAR Work Phone: [facility] 10-05-2022 11:39-0500 Body temperature 97.7 [degF] Yassine Radford MD Work Phone: [facility] 10-05-2022 11:39-0500 Body weight 81.19 kg Yassine Radford MD Work Phone: [facility] 10-05-2022 11:39-0500 Diastolic blood pressure 70 mm[Hg] Yassine Radford MD Work Phone: [facility] 10-05-2022 11:39-0500 Heart rate 72 /min Yassine Radford MD Work Phone: [facility] 10-05-2022 11:39-0500 Respiratory rate 18 /min Yassine Radford MD Work Phone: [facility] 10-05-2022 11:39-0500 Systolic blood pressure 120 mm[Hg] Yassine Radford MD Work Phone: [facility] 09-26-2022 10:32-0400 Body temperature 97.2 [degF] Yassine Radford MD Work Phone: [facility] 09-26-2022 10:32-0400 Body weight 76.66 kg Yassine Radford MD Work Phone: [facility] 09-26-2022 10:32-0400 Diastolic blood pressure 68 mm[Hg] Yassine Radford MD Work Phone: [facility] 09-26-2022 10:32-0400 Heart rate 84 /min Yassine Radford MD Work Phone: [facility] 09-26-2022 10:32-0400 Respiratory rate 20 /min Yassine Radford MD Work Phone: [facility] 09-26-2022 10:32-0400 Systolic blood pressure 124 mm[Hg] Yassine Radford MD Work Phone: [facility] 08-31-2022 09:09-0400 Heart rate 85 /min Panchito Lopez 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.RETAIL CLERK Work Phone: [facility] 08-31-2022 09:09-0400 Respiratory rate 16 /min Panchito Lopez 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.RETAIL CLERK Work Phone: [facility] 08-31-2022 09:09-0400 SaO2% (BldA) [Mass fraction] 98 % Panchito Lopez 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.RETAIL CLERK Work Phone: [facility] 07-28-2022 17:07-0400 Body temperature 97.3 [degF] Yassine Radford MD Work Phone: [facility] 07-28-2022 17:07-0400 Body weight 77.11 kg Yassine Radford MD Work Phone: [facility] 07-28-2022 17:07-0400 Diastolic blood pressure 68 mm[Hg] Yassine Radford MD Work Phone: [facility] 07-28-2022 17:07-0400 Heart rate 80 /min Yassine Radford MD Work Phone: [facility] 07-28-2022 17:07-0400 Respiratory rate 20 /min Yassine Radford MD Work Phone: [facility] 07-28-2022 17:07-0400 SaO2% (BldA) [Mass fraction] 99 % Yassine Radford MD Work Phone: [facility] 07-28-2022 17:07-0400 Systolic blood pressure 112 mm[Hg] Yassine Radford MD Work Phone: [facility] 06-19-2022 11:43-0400 Body weight 77.11 kg German Pires 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.FISHER EEL SPEAR Work Phone: [facility] 06-19-2022 11:43-0400 Diastolic blood pressure 78 mm[Hg] German Pires 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.FISHER EEL SPEAR Work Phone: [facility] 06-19-2022 11:43-0400 Heart rate 84 /min German Pires 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.FISHER EEL SPEAR Work Phone: [facility] 06-19-2022 11:43-0400 Respiratory rate 16 /min German Pires 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.FISHER EEL SPEAR Work Phone: [facility] 06-19-2022 11:43-0400 Systolic blood pressure 118 mm[Hg] German Pires 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.FISHER EEL SPEAR Work Phone: [facility] 05-23-2022 11:44-0400 Body temperature 97.2 [degF] Yassine Radford MD Work Phone: [facility] 05-23-2022 11:44-0400 Body weight 78.02 kg Yassine Radford MD Work Phone: [facility] 05-23-2022 11:44-0400 Diastolic blood pressure 70 mm[Hg] Yassine Radford MD Work Phone: [facility] 05-23-2022 11:44-0400 Heart rate 72 /min Yassine Radford MD Work Phone: [facility] 05-23-2022 11:44-0400 Respiratory rate 16 /min Yassine Radford MD Work Phone: [facility] 05-23-2022 11:44-0400 Systolic blood pressure 116 mm[Hg] Yassine Radford MD Work Phone: [facility] 05-04-2022 13:52-0400 Body temperature 97.39 [degF] Yassine Radford MD Work Phone: [facility] 05-04-2022 13:52-0400 Body weight 79.2 kg Yassine Radford MD Work Phone: [facility] 05-04-2022 13:52-0400 Diastolic blood pressure 70 mm[Hg] Yassine Radford MD Work Phone: [facility] 05-04-2022 13:52-0400 Heart rate 76 /min Yassine Radford MD Work Phone: [facility] 05-04-2022 13:52-0400 Respiratory rate 16 /min Yassine Radford MD Work Phone: [facility] 05-04-2022 13:52-0400 Systolic blood pressure 112 mm[Hg] Yassine Radford MD Work Phone: [facility] 02-24-2022 09:58-0400 Body weight 77.56 kg German Pires APRN.FISHER EEL SPEAR Work Phone: [facility] 02-24-2022 09:58-0400 Diastolic blood pressure 72 mm[Hg] German Pires 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.FISHER EEL SPEAR Work Phone: [facility] 02-24-2022 09:58-0400 Heart rate 76 /min German Pires 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.FISHER EEL SPEAR Work Phone: [facility] 02-24-2022 09:58-0400 Respiratory rate 16 /min German Pires 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.FISHER EEL SPEAR Work Phone: [facility] 02-24-2022 09:58-0400 Systolic blood pressure 102 mm[Hg] German Pires 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.FISHER EEL SPEAR Work Phone: [facility] Encounters Encounter Date Encounter Type Care Provider Facility Start: 11-22-2023 End: 11-22-2023 ambulatory TAYLOR ESPARZA Facility:[facility] Start: 11-21-2023 End: 11-21-2023 Emergency department patient visit MAYI REAVES MD Facility: Start: 11-21-2023 End: 11-21-2023 Emergency department patient visit MAYI REAVES MD [facility] Start: 11-20-2023 End: 11-20-2023 ambulatory YASSINE RADFORD Facility:[facility] Start: 10-02-2023 ambulatory Yassine herron MD Work Phone: [facility] [place] Procedures Date Procedure Procedure Detail Performing Clinician Start: 07-28-2022 Urnls dip stick/tabl et rgnt auto w/o microscopy Yassine Radford MD Work Phone: Start: 08-23-2021 Adult depression scr eening assessment German Pires 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.FISHER EEL SPEAR Work Phone: Colonoscopy MAYI REAVES MD Hysterectomy MAYI REAVES MD Shoulder region stru cture (body structure) MAYI REAVES MD Specimen from breast obtained by biopsy (specimen) MAYI REAVES MD Plan of Treatment Date Care Activity Detail Author Start: 10-01-2024 Annual PCP Team [id number] Software Engineer luis alberto Disease Visit Annual PCP Team Chronic Disease Visit [facility] Start: 05-28-2024 ANNUAL PCP TEAM EMT INTERMEDIATE LUIS ALBERTO DISEASE VISIT ANNUAL PCP TEAM CHRONIC DISEASE VISIT [facility] Start: 03-12-2024 ANNUAL PCP TEAM EMT INTERMEDIATE LUIS ALBERTO DISEASE VISIT ANNUAL PCP TEAM CHRONIC DISEASE VISIT [facility] Start: 02-21-2024 ANNUAL PCP TEAM EMT INTERMEDIATE LUIS ALBERTO DISEASE VISIT ANNUAL PCP TEAM CHRONIC DISEASE VISIT [facility] Start: 12-28-2023 ANNUAL PCP TEAM EMT INTERMEDIATE LUIS ALBERTO DISEASE VISIT ANNUAL PCP TEAM CHRONIC DISEASE VISIT [facility] Start: 12-01-2023 ANNUAL PCP TEAM EMT INTERMEDIATE LUIS ALBERTO DISEASE VISIT ANNUAL PCP TEAM CHRONIC DISEASE VISIT [facility] Start: 11-09-2023 ANNUAL PCP TEAM EMT INTERMEDIATE LUIS ALBERTO DISEASE VISIT ANNUAL PCP TEAM CHRONIC DISEASE VISIT [facility] Start: 10-05-2023 ANNUAL PCP TEAM EMT INTERMEDIATE LUIS ALBERTO DISEASE VISIT ANNUAL PCP TEAM CHRONIC DISEASE VISIT [facility] Start: 09-26-2023 ANNUAL PCP TEAM EMT INTERMEDIATE LUIS ALBERTO DISEASE VISIT ANNUAL PCP TEAM CHRONIC DISEASE VISIT [facility] Start: 07-28-2023 ANNUAL PCP TEAM EMT INTERMEDIATE LUIS ALBERTO DISEASE VISIT ANNUAL PCP TEAM CHRONIC DISEASE VISIT [facility] Start: 07-27-2023 Influenza vaccination C [facility] Start: 05-25-2023 Influenza vaccination INFLUENZA (#1) [facility] Immunizations Immunization Date Immunization Notes Care Provider Lulu alvarado 01-17-2019 influenza virus vaccine, unspecified formulation Yassine Radford MD Work Phone: [facility] 09-24-2012 tetanus toxoid, redu yuri diphtheria toxoid, and acellular pertussis vaccine, adsorbed German Pires 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.FISHER EEL SPEAR Work Phone: [facility] Work Phone: Payers Date Payer Category Payer Unknown [id number] 2020 Medicaid [employer] [id number] 2020-Present [phone] [address] [place] [address] Medicaid [id number] 2020 Medicaid [id number] 2020 Medicaid [id number] 1984 Unknown [id number] 1984 Unknown [id number] 1984 Unknown [id number] Social History Date Type Detail Facility Start: 10-26-1992 End: 07-28-2022 Tobacco smoking status NHIS Smokes tobacco daily [facility] Work Phone: Start: 10-26-1992 History of tobacco use Cigarette Smoker [facility] Start: 02-24-2022 End: 09-21-2023 Alcohol intake Current non-drinker of alcohol (finding) [facility] Start: 08-23-2021 End: 11-09-2022 History SDOH Alcohol Frequency 1 [facility] Start: 08-23-2021 History SDOH Alcohol Std Drinks 98 [facility] Start: 08-23-2021 History SDOH Social Connections Phone 5 [facility] Start: 08-23-2021 End: 11-09-2022 History SDOH Social Connections Membership 2 [facility] Start: 08-23-2021 End: 11-09-2022 History SDOH Social Connections Living 3 [facility] Start: 08-23-2021 End: 11-09-2022 History SDOH Stress 4 [facility] Start: 08-23-2021 Education 9 [facility] Start: 09-01-2020 End: 07-28-2022 Tobacco Comment started age 17 [facility] Start: 1985 Sex Assigned At Female [facility] Start: 02-14-2022 End: 10-05-2022 Exposure to SARS-CoV-2 (event) Not sure [facility] Work Phone: Start: 09-08-2021 End: 10-01-2023 Cigarettes smoked current (pack per day) - Reported 1 [facility] Start: 09-08-2021 End: 07-28-2022 Tobacco use and exposure Smokeless tobacco non-user [facility] Work Phone: Start: 09-26-2022 End: 11-09-2022 History SDOH Alcohol Std Drinks 0 [facility] Start: 11-09-2022 End: 10-01-2023 Social connection and isolation panel [facility] Do you belong to any clubs or organizations such as jain groups, unions, fraternal or athletic groups, or school groups? No [facility] Are you now , , , , never or living with a partner? [facility] How often to you hav e a drink containing alcohol? Never [facility] How many standard dr inks containing alcohol do you have on a typical day? Patient does not drink [facility] How hard is it for y ou to pay for the very basics like food, housing, medical care, and heating Somewhat hard [facility] Do you feel stress - tense, restless, nervous, or anxious, or unable to sleep at night because your mind is troubled all the time - these days [OSQ] Rather much [facility] (I/We) worried maria eugenia er (my/our) food would run out before (I/we) got money to buy more. Often true [facility] In the past 12 month s, was there a time when you were not able to pay the mortgage or rent on time? Yes [facility] Start: 07-08-2021 Gender identity Identifies as female gender (finding) [facility] Start: 07-08-2021 Sexual orientation Heterosexual (finding) [facility] Start: 10-12-2022 Tobacco smoking status Heavy tobacco smoker (finding) [facility] Sex Assigned At Sex [facility] Mental Status Date Assessment Result Facility 11-21-2023 Mental Status Orientation Oriented x 4 [facility] Clinical Notes 12-13-2019 to 11-22-2023 Yassine Radford MD - 10/01/2023 2:53 PM ESTTelephone Encounter - Em Khanna LPN - 09/21/2023 3:32 PM EDTTelephone Encounter - German Pires APRN.CNS - 09/21/2023 3:22 PM EDT Note Date & Type Note Facility 11-22-2023 Note HNO ID: [id number] Author: Taylor Esparza MD Service: ? Author Type: Physician Type: Progress Notes Filed: 11/22/2023 6:50 PM Note Text: PROGRESS NOTES PATIENT NAME: Anne Chung Consultation requested by Yassine Cedeno MD [[id number]] for an opinion regarding gluteal abscess. My final recommendations will be communicated back to the requesting physician by way of shared Medical record or letter to requesting physician via US mail. Assessment ASSESSMENT AND PLAN The patient is a 38-year-old female who presents with a right gluteal abscess which was drained in the [facility] ER. This seems to be doing reasonably well packing was removed. I recommended that she shower and do tub soaks several times per day to keep the area clean. I recommend keeping the area covered to collect drainage. She should continue to take her antibiotics that were prescribed. Follow-up will be as needed but she should contact my office should any issues or problems arise. I did reassure her that the induration and hardness and soreness will continue to improve albeit gradually SUBJECTIVE CHIEF COMPLAINT: Patient presents with: ER F/U: 11/19 Abscess; gluteal, L side INTERVAL HISTORY OF PRESENT ILLNESS: The patient is a 37-year-old female who is being seen today for a gluteal abscess. She was seen at [facility] ER and had this drained on . She states that this was present for about 2 weeks prior. She states that it does feel much better now that it has been drained. She returns today to have her packing removed and have a wound evaluation. HISTORIES: PAST MEDICAL HISTORY Diagnosis Date Abnormal mammogram 02/16/2017 ASCUS (atypical squamous cells of undetermined significance) on Pap smear 09/24/2013 ASTHMA UNSPECIFIED 07/26/2006 BIPOLAR DISORDER NOS 07/26/2006 COVID 11/27/2021 Esophageal reflux 08/23/2006 Hidradenitis 01/15/2007 Hot flashes Insomnia Irritable bowel syndrome 03/15/2012 Mastodynia 08/23/2006 Mixed stress and urge urinary incontinence 12/13/2019 Nausea 01/02/2011 Raynaud's phenomenon without gangrene 02/01/2017 Thoracic outlet syndrome 06/14/2020 Tobacco use disorder 12/25/2006 Vaginal dryness PAST SURGICAL HISTORY Procedure Laterality Date ANESTHESIA PARTIAL RIB RESECTION NOS Left 09/26/2021 1st supraclavicular rib, neurolysis BREAST BIOPSY NEEDLE LEFT Left 03/18/2018 benign x 3 BX BREAST W/DEVICE 1ST LESION ULTRASOUND GUID Left 03/02/2017 COLONOSCOPY FLX DX W/COLLJ SPEC WHEN PFRMD 06/11/2012 Colonoscopy COLONOSCOPY FLX DX W/COLLJ SPEC WHEN PFRMD 11/08/2016 Colonoscopy mac EGD TRANSORAL BIOPSY SINGLE/MULTIPLE 10/26/2009 ESOPHAGOGASTRODUODENOSCOPY TRANSORAL DIAGNOSTIC 07/21/2011 EGD ESOPHAGOGASTRODUODENOSCOPY TRANSORAL DIAGNOSTIC 11/08/2016 EGD mac EXT HYSTERECTOMY,W/PARTIAL VAGINECTO 04/2015 Non-cancer. LAPAROSCOPIC SALPING/OOPHORECTOMY Left 10/23/2018 lysis of adhesions, Dr. Romelia SEGURA ABD PRTMANDOMENTUM DX W/WO SPEC BR/WA SPX 2013 Laparoscopy twice PAST SURGICAL HISTORY OF 2011 dental extraction REMOVAL OF OVARY(S) Right 05/10/2023 ALLERGIES: Bees, Morphine, Penicillins, Valium [Diazepam], and Tessalon [Benzonatate] MEDICATIONS: Current Outpatient Medications Medication Sig estradiol (ESTRACE) 2 mg tablet once daily. oxyCODONE-acetaminophen (PERCOCET) 5-325 mg tablet Take by mouth. sulfamethoxazole-trimethoprim (BACTRIM DS) 800-160 mg per tablet Take by mouth. Cephalexin 500 mg tab Take by mouth. doxycycline monohydrate (MONODOX) 100 mg capsule Take 1 capsule by mouth two times a day. LORazepam (ATIVAN) 0.5 mg Take 1 tablet by mouth at bedtime as needed (anxiety) for up to 60 days. albuterol HFA (VENTOLIN HFA) 90 mcg/actuation inhaler INHALE TWO PUFFS BY MOUTH EVERY 6 HOURS NEEDED FOR WHEEZING OR SHORTNESS OF BREATH ondansetron orally disintegrating (ZOFRAN ODT) 4 mg disintegrating tablet Take 1 tablet by mouth every 6 hours as needed for nausea/vomiting. ibuprofen (MOTRIN) 800 mg tablet Take 1 tablet by mouth every 8 hours as needed for pain or fever (specify temp.) (take with food). conj estrogens-bazedoxifene 0.45-20 mg lidocaine (LIDODERM) 5 % Apply 1 Patch as directed every 24 hours. to affected area. Remove patch after 12 hours. EPINEPHrine (EPIPEN) 0.3 mg/0.3 mL auto-injector GIVE ONE DOSE INTO LATERAL THIGH FOR ALLERGIC REACTION. REPEAT DOSE IN 5-15 MINUTES IF NOT IMPROVING No current facility-administered medications for this visit. FAMILY HISTORY Problem Relation Age of Onset Asthma Mother Headache Mother migraine Psychiatry Mother depression, Arthritis Mother chronic pain, fibromyalgia Cancer Mother ovarian (ovarian remit syndrome had since 1991 with a complete hysterectomy)/ cancer of foot Heart Mother disease COPD Mother other (pneumonia) Mother lupus other (Other) Mother ENT cancer Hypertension Father Heart Fa (more content not included)... [facility] 11-21-2023 Hospital Discharg e instructions Patient Education 11/21/2023 16:05:25 Abscess, Antibiotic Treatment Only Abscess (Antibiotic Treatment Only) An abscess (sometimes called a boil ) happens when bacteria get trapped under the skin and start to grow. Pus forms inside the abscess as the body responds to the bacteria. An abscess can happen with an insect bite, ingrown hair, blocked oil gland, pimple, cyst, or puncture wound. In the early stages, your wound may be red and tender. For this stage, you may get antibiotics. If the abscess does not get better with antibiotics, it will need to be drained with a small cut. Home care These tips will help you care for your abscess at home: Soak the wound in hot water or apply hot packs (small towel soaked in hot water) to the area for 20 minutes at a time. Do this 3 to 4 times a day. Do not cut, squeeze, or pop the boil yourself. Apply antibiotic cream or ointment to the skin 3 to 4 times a day, unless something else was prescribed. Some ointments include an antibiotic plus a pain reliever. If your doctor prescribed antibiotics, do not stop taking them until you have finished the medicine or the doctor tells you to stop. You may use an rpye-eyo-siaodzu pain medicine to control pain, unless another pain medicine was prescribed. If you have chronic liver or kidney disease or ever had a stomach ulcer or gastrointestinal bleeding, talk with your doctor before using these any of these. Follow-up care Follow up with your healthcare provider, or as advised. Check your wound each day for the signs of worsening infection listed below. When to seek medical advice Get prompt medical attention if any of these occur: An increase in redness or swelling Red streaks in the skin leading away from the abscess An increase in local pain or swelling Fever of 100.4 F (38 C) or higher, or as directed by your healthcare provider Pus or fluid coming from the abscess Boil returns after getting better [id number] [employer]. [address] [place] [address]. All rights reserved. This information is not intended as a substitute for professional medical care. Always follow your healthcare professional's instructions. Follow Up Care 11/21/2023 15:43:04 With:YASSINE RADFORD MD Address: [address] [place] [phone] When:2-4 days [facility] 11-21-2023 Note Basic Information Time Seen: MAYI REAVES MD 11/21/2023 15:47 History of Present Illness Patient is a 38-year-old female presenting to the emergency department today for evaluation of redness around her left buttock. She states that she was diagnosed with an abscess 2 days ago at [facility] and had an incision and drainage performed. At that time she was placed on Vicodin and doxycycline. She states that she has been taking antibiotics as prescribed and has run out of the pain medication. She states the pain medication has not been helping with the pain. States that the redness around the site of the abscess is actually worsening. For this reason she came to the emergency department for further evaluation. She does state that she has a friend with general surgeon tomorrow for outpatient evaluation of this abscess. Review of Systems Constitutional: No fever. No chills. No dizziness. No weakness. No weight loss. Musculoskeletal: No muscle, back pain, joint pain or stiffness. Skin: Positive for redness and pain over the site of her prior abscess on her left buttock Neurological: No headache, dizziness, syncope, paralysis, ataxia, numbness or tingling in the extremities. No change in bowel or bladder control. Psychiatric: No confusion. Physical Exam Vitals & Measurements T: 36.8 C (Oral) HR: 86 RR: 18 BP: 119/73 SpO2: 99% HT: 152.4 cm WT: 72.7 kg General Appearance: The patient appears well and is in no apparent distress. Musculoskeletal: Patient has good range of motion of all extremities. The patient has good distal cap refill. The patient has palpable distal pulses. Neurological: Sensory and motor examination is unremarkable. Skin: Cellulitis on the left buttock around the prior abscess. Psychiatric: The patient is awake, alert, and oriented x4. Recent and remote memory is intact. Patient Education Abscess, Antibiotic Treatment Only Follow Up With When Contact Information YASSINE RADFORD MD Within 2-4 days [address] [place] [address]- Additional Instructions: Medications What How Much When Why Instructions New acetaminophen-hydrocodone ([place] 325- 5 mg oral tablet) 1 tab(s) by mouth Every 6 hours as needed for for pain Cellulitis Duration: 1 Days Printed Prescription New cephalexin (Keflex use cephalexin ) 500 Milligram by mouth Two (2) times a day Duration: 10 Days Printed Prescription New sulfamethoxazole-trimethoprim (Bactrim DS 800 mg-160 mg oral tablet) 1 tab(s) by mouth Two (2) times a day Duration: 10 Days Printed Prescription Unchanged albuterol (Ventolin HFA MDI (90 mcg/ inh) inhalation aerosol) Unchanged DULoxetine (DULoxetine 20 mg oral delayed release capsule) Unchanged estradiol (estradiol 1 mg oral tablet) 1 tab(s) by mouth Once a day Duration: 30 Days Unchanged estradiol (estradiol 2 mg oral tablet) 1 tab(s) by mouth Once a day Duration: 90 Days Unchanged LORazepam (LORazepam 0.5 mg oral tablet) TAKE 1 TABLET BY MOUTH AT BEDTIME NEEDED FOR ANXIETY FOR UP TO 60 DAYS Unchanged pantoprazole (pantoprazole 40 mg oral enteric coated tablet) Diagnostic Results Patient Instructions Follow-up with your PCP in the next 2 to 4 days. You have a surgeons appointment tomorrow. Please keep this appointment. Return to the emergency department if you start experiencing high fevers or worsening redness. Impression and Plan Impressions: 1. Cellulitis 2. Abscess Plan for discharge home Medical Decision Making The patient was initially evaluated with Dr. Carlos. Nursing notes and vital signs were reviewed. Patient has evidence of cellulitis surrounding the prior abscess. This was then marked with a skin marker. She will be switched from doxycycline to Keflex and Bactrim. The patient be given pain medication. She does have an appointment with a general surgeon tomorrow for further evaluation of his abscess. I discussed all findings with the patient expressed understanding and is amenable to this plan. At this time, we believe the patient is safe for discharge to home Problem List/Past Medical History Ongoing Chronic pelvic pain in female Furuncle of vulva Menopausal symptom Ovarian cyst, right Pain pelvic Postop check Premature menopause on HRT S/P laparoscopic surgery S/P right oophorectomy Historical No qualifying data Procedure/Surgical History Shoulder Breast biopsy sample Hysterectomy Colonoscopy Allergies Bee Stings (swelling) Tessalon Perles (rash) morphine (hives) penicillin (hives) Social History Alcohol Use: Never., 10/12/2022 Nutrition/Health Caffeine intake amount: 1 serving daily., 10/26/2022 Substance Abuse Use: Current. Type: Marijuana. Frequency: 3-5 times per week., 05/08/2023 Tobacco Nicotine Use: 10 or more cigarettes (1/2 pack or more)/day in last 30 days., 10/12/2022 Family History Cancer: Mother. Diabetes: Grandparent. Heart attack: Father. Stroke: Grandparent. Digitally Signed by MAYI REAVES MD on 11/21/2023 04:13 PM Digitally Signed by CAROLINE ORTIZ MD on 11/21/2023 06:03 PM [facility] 11-21-2023 Note Discharge Instructions Thank you for allowing [facility] to assist you with your healthcare needs. The following is important discharge information regarding your hospital visit. Diagnosis from Today's Visit Abscess - complicated Cellulitis What to Do Next Instructions from Your Care Team Follow-up with your PCP in the next 2 to 4 days. You have a surgeons appointment tomorrow. Please keep this appointment. Return to the emergency department if you start experiencing high fevers or worsening redness. No qualifying data available. Post Acute Orders No qualifying data available. You Need to Schedule the Following Appointments Follow Up with YASSINE RADFORD MD When Within 2-4 days Where: [address] [place] [address]- Allergies Bee Stings (swelling) Tessalon Perles (rash) morphine (hives) penicillin (hives) Medications Please ask your primary doctor or pharmacist before taking any other medication not listed, including over the counter drugs, herbal medications, vitamins and or supplements as they may interact with your home medications. What How Much When Why Instructions Last Dose New acetaminophen-hydrocodone ([place] 325- 5 mg oral tablet) 1 tab(s) by mouth Every 6 hours as needed for for pain Cellulitis Duration: 1 Days Printed Prescription New acetaminophen-hydrocodone ([place] 325- 5 mg oral tablet) 1 tab(s) by mouth Every 6 hours as needed for for pain Cellulitis Duration: 2 Days May take 1-2 tablets / dose Printed Prescription New cephalexin (Keflex use cephalexin ) 500 Milligram by mouth Two (2) times a day Duration: 10 Days Printed Prescription New sulfamethoxazole-trimethoprim (Bactrim DS 800 mg-160 mg oral tablet) 1 tab(s) by mouth Two (2) times a day Duration: 10 Days Printed Prescription Unchanged albuterol (Ventolin HFA MDI (90 mcg/ inh) inhalation aerosol) Unchanged DULoxetine (DULoxetine 20 mg oral delayed release capsule) Unchanged estradiol (estradiol 1 mg oral tablet) 1 tab(s) by mouth Once a day Duration: 30 Days Unchanged estradiol (estradiol 2 mg oral tablet) 1 tab(s) by mouth Once a day Duration: 90 Days Unchanged LORazepam (LORazepam 0.5 mg oral tablet) TAKE 1 TABLET BY MOUTH AT BEDTIME NEEDED FOR ANXIETY FOR UP TO 60 DAYS Unchanged pantoprazole (pantoprazole 40 mg oral enteric coated tablet) Please take this list to your next doctor s visit. Bring all medications you take, including over the counter medications, herbals and other supplements with you to your doctor s visit. Patients and families are reminded to discard old lists and to update any records with all medication providers or retail pharmacies. Education Materials Abscess (Antibiotic Treatment Only) An abscess (sometimes called a boil ) happens when bacteria get trapped under the skin and start to grow. Pus forms inside the abscess as the body responds to the bacteria. An abscess can happen with an insect bite, ingrown hair, blocked oil gland, pimple, cyst, or puncture wound. In the early stages, your wound may be red and tender. For this stage, you may get antibiotics. If the abscess does not get better with antibiotics, it will need to be drained with a small cut. Home care These tips will help you care for your abscess at home: Soak the wound in hot water or apply hot packs (small towel soaked in hot water) to the area for 20 minutes at a time. Do this 3 to 4 times a day. Do not cut, squeeze, or pop the boil yourself. Apply antibiotic cream or ointment to the skin 3 to 4 times a day, unless something else was prescribed. Some ointments include an antibiotic plus a pain reliever. If your doctor prescribed antibiotics, do not stop taking them until you have finished the medicine or the doctor tells you to stop. You may use an [id number]-uje-erdqdqz pain medicine to control pain, unless another pain medicine was prescribed. If you have chronic liver or kidney disease or ever had a stomach ulcer or gastrointestinal bleeding, talk with your doctor before using these any of these. Follow-up care Follow up with your healthcare provider, or as advised. Check your wound each day for the signs of worsening infection listed below. When to seek medical advice Get prompt medical attention if any of these occur: An increase in redness or swelling Red streaks in the skin leading away from the abscess An increase in local pain or swelling Fever of 100.4 F (38 C) or higher, or as directed by your healthcare provider Pus or fluid coming from the abscess Boil returns after getting better [id number] [employer]. [address] [place] [address]. All rights reserved. This information is not intended as a substitute for professional medical care. Always follow your healthcare professional's instructions. Additional Information VACCINATE! IT SAVES LIVES! Members of the community who have not yet received the COVID-19 vaccine and would like to receive it can visit one of [facility] vaccine clinics. There are many vaccine clinic locations within the [facility]. For locations and available times, please visit [email or web address] It is important to note that some COVID mobile vaccine clinics are held outdoors and may be canceled in rainy or stormy conditions. To learn more about pediatric vaccinations (ages 5-11), we invite you to visit the [facility] webpage. [email or web address] [email or web address] To learn more about the COVID-19 vaccine, we invite you to visit the CDC website for a list of frequently asked questions. https://www.cdc.gov/coronavirus/ 2019-ncov/vaccines/faq.html [facility] Patient Portal Access Instructions: Stay connected with your healthcare team and access your personal medical information anytime with the [facility] Patient Portal. If you would like a full copy of your medical records please contact the [facility] Medical Records Department Sunday through Sunday between 8a.m. and 4:30p.m. Please follow the directions below to access the portal: 1.Access the email account you provided upon registration to the [facility].2.Look for an invitation email from [facility].3.Open the email and access the invitation link: Accept Invitation to [facility]4.Fill in the required hankins to create your account. Sign into [email or web address] with your username and password that you created in the above steps to stay up to date. You can then view a summary of results, a summary of your visits, and the ability to download your summaries to your computer or send the information securely to a physician. Remember that your healthcare information is confidential, so carefully consider who you will allow to register on the [facility] Patient Portal for access to your information. You can also access the [facility] Patient Portal on the [employer] phillip. Simply click on Health Records under Health Data and then click on the [employer] logo. HOW TO SAFELY DISPOSE OF PRESCRIPTION MEDICATIONS Please use one of the following methods to safely dispose of your unused medications. 1.Use a drug disposal kit: the drug disposal pouch allows you to safely discard your old and unused drugs. Ask your nurse to give you one when you are discharged.2.Visit a local take-back location: Many local pharmacies and police departments have programs that collect old and unwanted prescription drugs. Call your local pharmacy or go to http://bit.ly/6F4Jw9t to find one close to you.3.Make use of household items: Use cat litter or old coffee grounds to dispose medications if other options are not available. Mix your drugs with these household products, seal them in an airtight container and throw it into the garbage. Call [facility]: [phone] to be sure your drugs can be disposed of in this way. Some medicines may require a different approach.4.Never flush your medications down the toilet. IF YOU HAVE BEEN PRESCRIBED AN OPIOIDS FOR PAIN If you have been prescribed an opioid (such as hydrocodone, oxycodone or morphine), it is critical to understand the possible side effects and risks of opioid pain medications. Even when taken as directed, opioids can have several side effects including: Tolerance, meaning you might need to take more of a medication for the same pain relief. Nausea, vomiting and/or constipation. Sleepiness, dizziness, dry mouth, confusion, depression or itching. Physical dependence, meaning you have withdrawal symptoms when a medication is stopped ? this can develop within a few days. KNOW YOUR RESPONSIBILITIES It is important to know exactly how much and how often to take the opioid pain medications you are prescribed. Never take opioids in higher amounts or more often than prescribed. Do not combine opioids with alcohol or other drugs that cause drowsiness, such as benzodiazepines, also known as benzos, including diazepam and alprazolam, muscle relaxants or sleep aids. Never sell or share prescription opioids. This is illegal. Store opioids in a secure place and out of reach of others (including children, family, friends and visitors). The last page(s) of this document has been signed and retained as a CHART COPY Signatures Patient Education Materials Abscess, Antibiotic Treatment Only Medication Leaflets My discharge plan and instructions have been reviewed and explained to me and I,ANNE CHUNG understand my current condition and have read and understand these discharge instructions. I have received a written copy of the plan/instructions. If I have questions, I am aware that I should contact my doctor. 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 Author Type: Physician Type: Progress Notes Filed: 11/20/2023 3:40 PM Note Text: This note was created using [employer]. Subjective Anne Chung is a 38 year old female who started having a painful lump on her left sacral-gluteal area one week ago. She tried to manipulate this herself without success. She ended up going to the ER yesterday where a gluteal abscess was incised and drained. She was on doxycycline but finished her hydrocodone due to pain. She was instructed to have primary care remove her drain in 2-3 days. Review of Systems Constitutional: Negative for chills and fever. Gastrointestinal: Negative for diarrhea. ACTIVE PROBLEM LIST Asthma Esophageal Reflux Tobacco Use Disorder Anxiety With Depression Overactive Bladder Pain of Left Shoulder Region Non-Adherence to Medical Treatment Social History Tobacco Use Smoking status: Every Day Packs/day: 1.00 Years: 29.00 Additional pack years: 0.00 Total pack years: 29.00 Types: Cigarettes Start date: 10/26/1992 Smokeless tobacco: Never Tobacco comments: started age 17 Vaping Use Vaping Use: Never used Substance Use Topics Alcohol use: No Drug use: Not Currently Types: Marijuana Current Outpatient Medications Medication Sig LORazepam (ATIVAN) 0.5 mg Take 1 tablet by mouth at bedtime as needed (anxiety) for up to 60 days. albuterol HFA (VENTOLIN HFA) 90 mcg/actuation inhaler INHALE TWO PUFFS BY MOUTH EVERY 6 HOURS NEEDED FOR WHEEZING OR SHORTNESS OF BREATH ondansetron orally disintegrating (ZOFRAN ODT) 4 mg disintegrating tablet Take 1 tablet by mouth every 6 hours as needed for nausea/vomiting. ibuprofen (MOTRIN) 800 mg tablet Take 1 tablet by mouth every 8 hours as needed for pain or fever (specify temp.) (take with food). conj estrogens-bazedoxifene 0.45-20 mg lidocaine (LIDODERM) 5 % Apply 1 Patch as directed every 24 hours. to affected area. Remove patch after 12 hours. EPINEPHrine (EPIPEN) 0.3 mg/0.3 mL auto-injector GIVE ONE DOSE INTO LATERAL THIGH FOR ALLERGIC REACTION. REPEAT DOSE IN 5-15 MINUTES IF NOT IMPROVING doxycycline monohydrate (MONODOX) 100 mg capsule Take 1 capsule by mouth two times a day. HYDROcodone-acetaminophen (NORCO) 5-325 mg per tablet Take 1 tablet by mouth every 6 hours as needed for pain for up to 3 days. No current facility-administered medications for this visit. Objective BP 108/76 Pulse 104 Temp 36.7 ?C (98.1 ?F) (Temporal) Resp 20 Wt 75.9 kg (167 lb 4.8 oz) LMP 05/16/2015 SpO2 100% BMI 32.67 kg/m? Physical Exam Constitutional: Appearance: She is not ill-appearing. Genitourinary: Comments: Left gluteal cleft incision 1.5 cm minimal surrounding erythema, no mass, tender, drain in place, with pus expressed. Neurological: Mental Status: She is alert. Assessment and Plan 1. Abscess, gluteal, left - ICD9: 682.5, ICD10: L02.31 - Continue treatment with doxycycline. I recommended surgical consult to follow wound and drain. - CONSULT TO GENERAL SURGERY - HYDROCODONE 5 MG-ACETAMINOPHEN 325 MG TABLET Yassine Radford MD [facility] 10-01-2023 Note HNO ID: [id number] Author: Yassine Radford MD Service: ? Author Type: Physician Type: Progress Notes Filed: 10/01/2023 3:13 PM Note Text: This note was created using [employer]. Subjective DISTANCE HEALTH VISIT Anne Chung's identity was confirmed. The limitations of telemedicine were reviewed, and verbal consent was obtained for this encounter. This encounter is not related to previous similar encounter within the past 7 days. No face to face visit is planned in the next day in connection to this encounter. This telemedicine encounter was accomplished via [employer]. Anne Chung is a 37 year old female with coughing, nausea, vomiting since Sunday. Other symptoms were wheezing, dyspnea. She felt feverish today. Dayquil and Nyquil were taken with temporary relief. She was going to pickle pumper albuterol today. She had no contact with any one ill and did not test for Covid. Review of Systems HENT: Positive for congestion. Negative for ear pain and sore throat. Respiratory: Positive for shortness of breath. Gastrointestinal: Negative for diarrhea. Musculoskeletal: Negative for myalgias. Neurological: Negative for headaches. ACTIVE PROBLEM LIST Asthma Esophageal Reflux Tobacco Use Disorder Anxiety With Depression Overactive Bladder Pain of Left Shoulder Region Non-Adherence to Medical Treatment Current Outpatient Medications Medication Sig ibuprofen (MOTRIN) 800 mg tablet Take 1 tablet by mouth every 8 hours as needed for pain or fever (specify temp.) (take with food). albuterol HFA (VENTOLIN HFA) 90 mcg/actuation inhaler INHALE TWO PUFFS BY MOUTH EVERY 6 HOURS NEEDED FOR WHEEZING OR SHORTNESS OF BREATH conj estrogens-bazedoxifene 0.45-20 mg ondansetron orally disintegrating (ZOFRAN ODT) 4 mg disintegrating tablet Take 1 tablet by mouth every 6 hours as needed for nausea/vomiting. lidocaine (LIDODERM) 5 % Apply 1 Patch as directed every 24 hours. to affected area. Remove patch after 12 hours. EPINEPHrine (EPIPEN) 0.3 mg/0.3 mL auto-injector GIVE ONE DOSE INTO LATERAL THIGH FOR ALLERGIC REACTION. REPEAT DOSE IN 5-15 MINUTES IF NOT IMPROVING No current facility-administered medications for this visit. Objective LMP 05/16/2015 Physical Exam Constitutional: General: She is not in acute distress. Appearance: She is not diaphoretic. HENT: Nose: No congestion or rhinorrhea. Mouth/Throat: Mouth: Mucous membranes are moist. Pharynx: Oropharynx is clear. Pulmonary: Effort: Pulmonary effort is normal. No respiratory distress. Breath sounds: Wheezing present. Neurological: Mental Status: She is alert. Assessment and Plan 1. Asthma with acute exacerbation, unspecified asthma severity, unspecified whether persistent - ICD9: 493.92, ICD10: J45.901 (primary diagnosis) - PREDNISONE 20 MG TABLET - BENZONATATE 100 MG CAPSULE - Start ALBUTEROL. 2. Nausea and vomiting, unspecified vomiting type - ICD9: 787.01, ICD10: R11.2 - ONDANSETRON 4 MG DISINTEGRATING TABLET Discussed medication dosage, usage, goals of therapy, and side effects. Yassine Radford MD [facility] 10-01-2023 History of Presen t illness Narrative This note was created using NoteWriter. Subjective DISTANCE HEALTH VISIT Anne Chung's identity was confirmed. The limitations of telemedicine were reviewed, and verbal consent was obtained for this encounter. This encounter is not related to previous similar encounter within the past 7 days. No face to face visit is planned in the next day in connection to this encounter. This telemedicine encounter was accomplished via Zoom. Anne Chung is a 37 year old female with coughing, nausea, vomiting since Sunday. Other symptoms were wheezing, dyspnea. She felt feverish today. Dayquil and Nyquil were taken with temporary relief. She was going to pickle pumper albuterol today. She had no contact with any one ill and did not test for Covid. Review of Systems HENT: Positive for congestion. Negative for ear pain and sore throat. Respiratory: Positive for shortness of breath. Gastrointestinal: Negative for diarrhea. Musculoskeletal: Negative for myalgias. Neurological: Negative for headaches. ACTIVE PROBLEM LIST Asthma Esophageal Reflux Tobacco Use Disorder Anxiety With Depression Overactive Bladder Pain of Left Shoulder Region Non-Adherence to Medical Treatment Current Outpatient Medications Medication Sig ibuprofen (MOTRIN) 800 mg tablet Take 1 tablet by mouth every 8 hours as needed for pain or fever (specify temp.) (take with food). albuterol HFA (VENTOLIN HFA) 90 mcg/actuation inhaler INHALE TWO PUFFS BY MOUTH EVERY 6 HOURS NEEDED FOR WHEEZING OR SHORTNESS OF BREATH conj estrogens-bazedoxifene 0.45-20 mg ondansetron orally disintegrating (ZOFRAN ODT) 4 mg disintegrating tablet Take 1 tablet by mouth every 6 hours as needed for nausea/vomiting. lidocaine (LIDODERM) 5 % Apply 1 Patch as directed every 24 hours. to affected area. Remove patch after 12 hours. EPINEPHrine (EPIPEN) 0.3 mg/0.3 mL auto-injector GIVE ONE DOSE INTO LATERAL THIGH FOR ALLERGIC REACTION. REPEAT DOSE IN 5-15 MINUTES IF NOT IMPROVING No current facility-administered medications for this visit. Objective LMP 05/16/2015 Physical Exam Constitutional: General: She is not in acute distress. Appearance: She is not diaphoretic. HENT: Nose: No congestion or rhinorrhea. Mouth/Throat: Mouth: Mucous membranes are moist. Pharynx: Oropharynx is clear. Pulmonary: Effort: Pulmonary effort is normal. No respiratory distress. Breath sounds: Wheezing present. Neurological: Mental Status: She is alert. Assessment and Plan 1. Asthma with acute exacerbation, unspecified asthma severity, unspecified whether persistent - ICD9: 493.92, ICD10: J45.901 (primary diagnosis) - PREDNISONE 20 MG TABLET - BENZONATATE 100 MG CAPSULE - Start ALBUTEROL. 2. Nausea and vomiting, unspecified vomiting type - ICD9: 787.01, ICD10: R11.2 - ONDANSETRON 4 MG DISINTEGRATING TABLET Discussed medication dosage, usage, goals of therapy, and side effects. Yassine Radford MD documented in this encounter [facility] 09-21-2023 Miscellaneous Notes Pharmacist notified of providers message and verbalized understanding. Attempted to also contact patient with information but no answer and voice mailbox is full OK, see below.Switched to ibuprofen 800 mg TID. Eugenio, Pharmacist with [facility] calling regarding pt's script for Toradol received today. Eugenio states there is a black box warning on this medication where patient must first receive a Toradol injection in the office before pills can be dispensed. Pharmacist updated that pt declined injection in office today. Pharmacist states he is unable to fill the prescription. Please advise pharmacy and patient. Thank you. documented in this encounter [facility] 09-21-2023 Note HNO ID: [id number] Author: German Pires APRN.FISHER EEL SPEAR Service: ? Author Type: Nurse Specialist Type: Progress Notes Filed: 09/21/2023 1:55 PM Note Text: SUBJECTIVE: Hepatitis B Vaccine(1 of 3 - 3-dose series) Never done Covid-19 Vaccine(1) Never done Pneumococcal Vaccine(1 - PCV) Never done DTaP,Tdap,Td Vaccine(2 - Td or Tdap) due on 09/24/2022 Influenza Vaccine(1) due on 07/27/2023 KEREN Chung is a 37 year old female. PMH significant for ACTIVE PROBLEM LIST Asthma Esophageal Reflux Tobacco Use Disorder Anxiety With Depression Overactive Bladder Pain of Left Shoulder Region Non-Adherence to Medical Treatment PCP: Yassine Radford MD Presents today regarding concern for sprained ankle. She was seen earlier today at [facility] emergency department for this complaint. She reported injuring her left ankle yesterday. She reported significant to a hole yesterday while trick or treating. She was without abnormal sensation or motor function. No prior injury to her ankle. No contraindication to NSAIDs. Physical exam unremarkable, pain out of proportion to tactile stimulus over lateral medial malleolus. Advised to ice her foot, complete exercises several times a day and wear flat shoes. Advised to avoid inclines and going up and down ladders. Advise she could return to work. Reports that her left foot continues to hurt, anterior plantar surfaces of the midfoot. Range of motion is preserved. Sensation preserved. Able to walk bear weight but painful. Has been using ibuprofen 800 mg but not helping much. Review of Systems Constitutional: Negative. Musculoskeletal: Positive for arthralgias. Objective BP 105/68 Pulse 99 Resp 16 Wt 75.8 kg (167 lb) LMP 05/16/2015 BMI 32.61 kg/m? Physical Exam Vitals and nursing note reviewed. Constitutional: Appearance: Normal appearance. Eyes: Conjunctiva/sclera: Conjunctivae normal. Cardiovascular: Rate and Rhythm: Normal rate. Pulses: Dorsalis pedis pulses are 2+ on the left side. Pulmonary: Effort: Pulmonary effort is normal. Musculoskeletal: Left ankle: No swelling, deformity, ecchymosis or lacerations. Tenderness present. Normal range of motion. Normal pulse. Feet: Left foot: Skin integrity: Skin integrity normal. Skin: General: Skin is warm. Neurological: Mental Status: She is alert. ALLERGIES Allergen Reactions Bees Anaphylaxis Pt had swelling, was given epipen at ER. Morphine Rash Left arm turned red when given IV morphine Penicillins Other: See Comments Patient refuses due to family allergy to PCN. Valium [Diazepam] Hives Hives on chest only. Tessalon [Benzonata* Rash Medication albuterol HFA (VENTOLIN HFA) 90 mcg/actuation inhaler INHALE TWO PUFFS BY MOUTH EVERY 6 HOURS NEEDED FOR WHEEZING OR SHORTNESS OF BREATH conj estrogens-bazedoxifene 0.45-20 mg ondansetron orally disintegrating (ZOFRAN ODT) 4 mg disintegrating tablet Take 1 tablet by mouth every 6 hours as needed for nausea/vomiting. lidocaine (LIDODERM) 5 % Apply 1 Patch as directed every 24 hours. to affected area. Remove patch after 12 hours. EPINEPHrine (EPIPEN) 0.3 mg/0.3 mL auto-injector GIVE ONE DOSE INTO LATERAL THIGH FOR ALLERGIC REACTION. REPEAT DOSE IN 5-15 MINUTES IF NOT IMPROVING celecoxib (CELEBREX) 200 mg capsule Take two tablets now then take one tablet every 12 hours as needed for pain. Take with food. Do not take diclofenac while taking this medication. For pain PAST MEDICAL HISTORY Diagnosis Date Abnormal mammogram 02/16/2017 ASCUS (atypical squamous cells of undetermined significance) on Pap smear 09/24/2013 ASTHMA UNSPECIFIED 07/26/2006 BIPOLAR DISORDER NOS 07/26/2006 COVID 11/27/2021 Esophageal reflux 08/23/2006 Hidradenitis 01/15/2007 Hot flashes Insomnia Irritable bowel syndrome 03/15/2012 Mastodynia 08/23/2006 Mixed stress and urge urinary incontinence 12/13/2019 Nausea 01/02/2011 Raynaud's phenomenon without gangrene 02/01/2017 Thoracic outlet syndrome 06/14/2020 Tobacco use disorder 12/25/2006 Vaginal dryness Social History Tobacco Use Smoking status: Every Day Packs/day: 1.00 Years: 29.00 Additional pack years: 0.00 Total pack years: 29.00 Types: Cigarettes Start date: 10/26/1992 Smokeless tobacco: Never Tobacco comments: started age 17 Vaping Use Vaping Use: Never used Substance Use Topics Alcohol use: No Drug use: Not Currently Types: Marijuana ASSESSMENT/PLAN: 1. Sprain of left ankle, unspecified ligament, subsequent encounter - ICD9: V58.89, 845.00, ICD10: S93.402D Advise she follow ER recommendations. Rest ice and elevate her ankle. Range of motion of her ankle several times per day. Use Kulwant wrap compression or ankle brace. Avoid painful activities. Declines Toradol shot in the office. We will switch from ibuprofen to Toradol oral for home use. Follow-up if not feeling improved with conse (more content not included)... [facility] 07-03-2023 Miscellaneous Notes TERESE: 05/28/2023 Last refill: 04/06/2023 QTY: 30 Refills: 0 documented in this encounter [facility] 06-01-2023 Miscellaneous Notes Patient has been identified by name and date of : Yes Patient phones for refill(s): Requested Prescriptions Pending Prescriptions Disp Refills albuterol HFA (VENTOLIN HFA) 90 mcg/actuation inhaler 18 g 5 Sig: INHALE TWO PUFFS BY MOUTH EVERY 6 HOURS NEEDED FOR WHEEZING OR SHORTNESS OF BREATH Date of last office visit in primary care: TERESE 05/28/23 NOV not scheduled Last 2 Encounter Wt Readings: Date: Wt: 05/28/2023 75.8 kg (167 lb) 02/20/2023 78 kg (172 lb) Please advise. Thank you. ANITRA Pastrana documented in this encounter [facility] 05-31-2023 Note HNO ID: [id number] Author: Hao Butcher PT Service: ? Author Type: Physical Therapist Type: Progress Notes Filed: 05/31/2023 8:57 AM Note Text: 05/31/2023 [facility] PHYSICAL THERAPY DISCONTINUANCE OF CARE Plan of Care Period: Start of Care Date: 12/28/22 Last Visit Date: 12/28/2022 Therapy Program: Patient did not return for follow up care as planned. Please refer to last visit note for interventions provided for this episode of care. Assessment: Unable to formally assess goal achievement. Reason for Discontinuation of Care: Patient has not returned to therapy or scheduled additional follow-up appointments. Hao Butcher PT [facility] 05-28-2023 Note HNO ID: [id number] Author: Yassine Radford MD Service: ? Author Type: Physician Type: Progress Notes Filed: 05/28/2023 7:55 PM Note Text: This note was created using NoteWriter. Subjective Patient presents with: ED Follow-up Anne Chung is a 37 year old female who is status post right oophorectomy 05/10/[address] Romelia Cunningham in [facility]. She went back to work this weekend and developed progressively severe sharp umbilical pain with nausea. She went to the [place] ED yesterday, where labs were labs and CT scan of of the abdomen and pelvis were within normal limits. She was given Toradol with no relief and one dose of [place]. She was advised to follow up with Dr. Cunningham, but was told he was out for the week and to go to . She finished her prescription of oxycodone from him yesterday. She had a follow up on June 04. Review of Systems Constitutional: Negative for chills and fever. Respiratory: Negative. Gastrointestinal: Positive for nausea. Negative for constipation, diarrhea and vomiting. Endocrine: Positive for heat intolerance. Genitourinary: Negative for difficulty urinating. ACTIVE PROBLEM LIST Asthma Esophageal Reflux Tobacco Use Disorder Anxiety With Depression Overactive Bladder Pain of Left Shoulder Region Non-Adherence to Medical Treatment Social History Tobacco Use Smoking status: Every Day Packs/day: 1.00 Years: 29.00 Pack years: 29.00 Types: Cigarettes Start date: 10/26/1992 Smokeless tobacco: Never Tobacco comments: started age 17 Vaping Use Vaping Use: Never used Substance Use Topics Alcohol use: No Drug use: Not Currently Types: Marijuana Current Outpatient Medications Medication Sig conj estrogens-bazedoxifene 0.45-20 mg lidocaine (LIDODERM) 5 % Apply 1 Patch as directed every 24 hours. to affected area. Remove patch after 12 hours. LORazepam (ATIVAN) 0.5 mg Take 1 tablet by mouth at bedtime as needed (anxiety) for up to 60 days. EPINEPHrine (EPIPEN) 0.3 mg/0.3 mL auto-injector GIVE ONE DOSE INTO LATERAL THIGH FOR ALLERGIC REACTION. REPEAT DOSE IN 5-15 MINUTES IF NOT IMPROVING celecoxib (CELEBREX) 200 mg capsule Take two tablets now then take one tablet every 12 hours as needed for pain. Take with food. Do not take diclofenac while taking this medication. For pain albuterol HFA (VENTOLIN HFA) 90 mcg/actuation inhaler INHALE TWO PUFFS BY MOUTH EVERY 6 HOURS NEEDED FOR WHEEZING OR SHORTNESS OF BREATH ondansetron orally disintegrating (ZOFRAN ODT) 4 mg disintegrating tablet Take 1 tablet by mouth every 6 hours as needed for nausea/vomiting. oxyCODONE-acetaminophen (PERCOCET) 5-325 mg tablet Take 1 tablet by mouth every 8 hours as needed for pain for up to 5 days. No current facility-administered medications for this visit. Objective BP 96/62 (BP Site: Left Arm, BP Position: Sitting, BP Cuff Size: Large Adult) Pulse 80 Resp 16 Wt 75.8 kg (167 lb) LMP 05/16/2015 BMI 32.61 kg/m? Physical Exam Constitutional: General: She is not in acute distress. Appearance: She is not ill-appearing or diaphoretic. Pulmonary: Effort: Pulmonary effort is normal. Abdominal: General: Bowel sounds are normal. There is no distension. Palpations: Abdomen is soft. There is no mass. Tenderness: There is abdominal tenderness in the periumbilical area. There is no guarding or rebound. Neurological: Mental Status: She is alert. ER report reviewed. Assessment and Plan 1. Postoperative abdominal pain - ICD9: 789.00, 338.18, ICD10: R10.9, G89.18 (primary diagnosis) She has history of frequent prescriptions for opioids. I prescribed 15 tablets and will not refill this so she is advised to stretch this out till she sees Dr. Cunningham. - OXYCODONE-ACETAMINOPHEN 5 MG-325 MG TABLET 2. Gastroesophageal reflux disease without esophagitis - ICD9: 530.81, ICD10: K21.9 Refill requested. - ONDANSETRON 4 MG DISINTEGRATING TABLET Yassine Radford MD [facility] 05-28-2023 History of Presen t illness Narrative This note was created using NoteWriter. Subjective Patient presents with: ED Follow-up Anne Chung is a 37 year old female who is status post right oophorectomy 05/10/[address] Romelia Cunningham in [facility]. She went back to work this weekend and developed progressively severe sharp umbilical pain with nausea. She went to the [place] ED yesterday, where labs were labs and CT scan of of the abdomen and pelvis were within normal limits. She was given Toradol with no relief and one dose of [place]. She was advised to follow up with Dr. Cunningham, but was told he was out for the week and to go to . She finished her prescription of oxycodone from him yesterday. She had a follow up on June 04. Review of Systems Constitutional: Negative for chills and fever. Respiratory: Negative. Gastrointestinal: Positive for nausea. Negative for constipation, diarrhea and vomiting. Endocrine: Positive for heat intolerance. Genitourinary: Negative for difficulty urinating. ACTIVE PROBLEM LIST Asthma Esophageal Reflux Tobacco Use Disorder Anxiety With Depression Overactive Bladder Pain of Left Shoulder Region Non-Adherence to Medical Treatment Social History Tobacco Use Smoking status: Every Day Packs/day: 1.00 Years: 29.00 Pack years: 29.00 Types: Cigarettes Start date: 10/26/1992 Smokeless tobacco: Never Tobacco comments: started age 17 Vaping Use Vaping Use: Never used Substance Use Topics Alcohol use: No Drug use: Not Currently Types: Marijuana Current Outpatient Medications Medication Sig conj estrogens-bazedoxifene 0.45-20 mg lidocaine (LIDODERM) 5 % Apply 1 Patch as directed every 24 hours. to affected area. Remove patch after 12 hours. LORazepam (ATIVAN) 0.5 mg Take 1 tablet by mouth at bedtime as needed (anxiety) for up to 60 days. EPINEPHrine (EPIPEN) 0.3 mg/0.3 mL auto-injector GIVE ONE DOSE INTO LATERAL THIGH FOR ALLERGIC REACTION. REPEAT DOSE IN 5-15 MINUTES IF NOT IMPROVING celecoxib (CELEBREX) 200 mg capsule Take two tablets now then take one tablet every 12 hours as needed for pain. Take with food. Do not take diclofenac while taking this medication. For pain albuterol HFA (VENTOLIN HFA) 90 mcg/actuation inhaler INHALE TWO PUFFS BY MOUTH EVERY 6 HOURS NEEDED FOR WHEEZING OR SHORTNESS OF BREATH ondansetron orally disintegrating (ZOFRAN ODT) 4 mg disintegrating tablet Take 1 tablet by mouth every 6 hours as needed for nausea/vomiting. oxyCODONE-acetaminophen (PERCOCET) 5-325 mg tablet Take 1 tablet by mouth every 8 hours as needed for pain for up to 5 days. No current facility-administered medications for this visit. Objective BP 96/62 (BP Site: Left Arm, BP Position: Sitting, BP Cuff Size: Large Adult) Pulse 80 Resp 16 Wt 75.8 kg (167 lb) LMP 05/16/2015 BMI 32.61 kg/m Physical Exam Constitutional: General: She is not in acute distress. Appearance: She is not ill-appearing or diaphoretic. Pulmonary: Effort: Pulmonary effort is normal. Abdominal: General: Bowel sounds are normal. There is no distension. Palpations: Abdomen is soft. There is no mass. Tenderness: There is abdominal tenderness in the periumbilical area. There is no guarding or rebound. Neurological: Mental Status: She is alert. ER report reviewed. Assessment and Plan 1. Postoperative abdominal pain - ICD9: 789.00, 338.18, ICD10: R10.9, G89.18 (primary diagnosis) She has history of frequent prescriptions for opioids. I prescribed 15 tablets and will not refill this so she is advised to stretch this out till she sees Dr. Cunningham. - OXYCODONE-ACETAMINOPHEN 5 MG-325 MG TABLET 2. Gastroesophageal reflux disease without esophagitis - ICD9: 530.81, ICD10: K21.9 Refill requested. - ONDANSETRON 4 MG DISINTEGRATING TABLET Yassine Radford MD documented in this encounter [facility] 04-06-2023 Miscellaneous Notes Patient notified, verbalized understanding. Patient has been using Ativan more often, she needs to cut back Beatrice Camargo APRN.CNP PDMP website checked and validated. All prescriptions have been APPROPRIATELY filled. No suspicious activity was identified. 04/06/2023 by Beatrice Camargo APRN.CNP Patient is calling back requesting these medications. Please advise the patient. Patient has been identified by name and date of : Yes Patient phones for refill(s): Requested Prescriptions Pending Prescriptions Disp Refills lidocaine (LIDODERM) 5 % 10 Patch 3 Sig: Apply 1 Patch as directed every 24 hours. to affected area. Remove patch after 12 hours. LORazepam (ATIVAN) 0.5 mg 30 tablet 0 Sig: Take 1 tablet by mouth at bedtime as needed (anxiety) for up to 30 days. Date of last office visit in primary care: 03/12/2023 No future appt scheduled. Last 2 Encounter Wt Readings: Date: Wt: 02/20/2023 78 kg (172 lb) 12/28/2022 78.5 kg (173 lb) Previous labs/tests for medication: Not applicable Please advise. Thank you. Leticia Persaud LPN documented in this encounter [facility] 03-12-2023 Note HNO ID: [id number] Author: Yassine Radford MD Service: ? Author Type: Physician Type: Progress Notes Filed: 03/12/2023 6:46 PM Note Text: This note was created using [employer]. Subjective DISTANCE HEALTH VISIT Anne Chung's identity was confirmed. The limitations of telemedicine were reviewed, and verbal consent was obtained for this encounter. This encounter is not related to previous similar encounter within the past 7 days. No face to face visit is planned in the next day in connection to this encounter. This telemedicine encounter was accomplished via Zoom. Patient complained of another flare up of chronic left shoulder pain. She had to call off for the past 4 days and was starting to feel better. Pain was aggravated by heavy lifting at work. She had benefit from temporary work restriction 2 months ago. She indicated she was taking Lyrica but I corrected her as refills were inconsistent. She also did not continue Cymbalta. She was taking Celebrex and lidoderm. She had been to the ER twice this month and today ER provider declined to prescribe more opioids. She was scheduled for injections by Dr. Edouard Bar April 04. Dr. Bar has not prescribed her an opioid and gave her a Medrol pack a few weeks ago. Review of Systems Constitutional: Positive for activity change. Negative for fever. Objective LMP 05/16/2015 Physical Exam Constitutional: General: She is not in acute distress. Appearance: She is not ill-appearing. Neurological: Mental Status: She is alert. ACTIVE PROBLEM LIST Asthma Esophageal Reflux Tobacco Use Disorder Anxiety With Depression Overactive Bladder Pain of Left Shoulder Region Non-Adherence to Medical Treatment Current Outpatient Medications Medication Sig oxyCODONE-acetaminophen (PERCOCET) 5-325 mg tablet Take 1 tablet by mouth every 6 hours as needed for pain for up to 3 days. EPINEPHrine (EPIPEN) 0.3 mg/0.3 mL auto-injector GIVE ONE DOSE INTO LATERAL THIGH FOR ALLERGIC REACTION. REPEAT DOSE IN 5-15 MINUTES IF NOT IMPROVING ondansetron orally disintegrating (ZOFRAN ODT) 4 mg disintegrating tablet Take 1 tablet by mouth every 6 hours as needed for nausea/vomiting. LORazepam (ATIVAN) 0.5 mg Take 1 tablet by mouth at bedtime as needed (anxiety) for up to 30 days. celecoxib (CELEBREX) 200 mg capsule Take two tablets now then take one tablet every 12 hours as needed for pain. Take with food. Do not take diclofenac while taking this medication. For pain albuterol HFA (VENTOLIN HFA) 90 mcg/actuation inhaler INHALE TWO PUFFS BY MOUTH EVERY 6 HOURS NEEDED FOR WHEEZING OR SHORTNESS OF BREATH lidocaine (LIDODERM) 5 % Apply 1 Patch as directed every 24 hours. to affected area. Remove patch after 12 hours. No current facility-administered medications for this visit. Assessment and Plan 1. Pain of left shoulder region - ICD9: 719.41, ICD10: M25.512 (primary diagnosis) - OXYCODONE-ACETAMINOPHEN 5 MG-325 MG TABLET One time prescription. There will be no opioid refills from this office in the near future. She is advised to reach out to Dr. Bar for further pain concerns. 2. Anxiety with depression - ICD9: 300.4, ICD10: F41.8 Non compliant with duloxetine. 3. Thoracic outlet syndrome - ICD9: 353.0, ICD10: G54.0 Non compliant with pregabalin. 4. Non-adherence to medical treatment - ICD9: V15.81, ICD10: Z91.199 See above. Letter for another month of work restriction was given. Patient indicated understanding and willingness to follow recommendations. Yassine Radford MD [facility] 03-12-2023 History of Presen t illness Narrative This note was created using [employer]. Subjective DISTANCE HEALTH VISIT Anne Chung's identity was confirmed. The limitations of telemedicine were reviewed, and verbal consent was obtained for this encounter. This encounter is not related to previous similar encounter within the past 7 days. No face to face visit is planned in the next day in connection to this encounter. This telemedicine encounter was accomplished via Zoom. Patient complained of another flare up of chronic left shoulder pain. She had to call off for the past 4 days and was starting to feel better. Pain was aggravated by heavy lifting at work. She had benefit from temporary work restriction 2 months ago. She indicated she was taking Lyrica but I corrected her as refills were inconsistent. She also did not continue Cymbalta. She was taking Celebrex and lidoderm. She had been to the ER twice this month and today ER provider declined to prescribe more opioids. She was scheduled for injections by Dr. Edouard Bar April 04. Dr. Bar has not prescribed her an opioid and gave her a Medrol pack a few weeks ago. Review of Systems Constitutional: Positive for activity change. Negative for fever. Objective LMP 05/16/2015 Physical Exam Constitutional: General: She is not in acute distress. Appearance: She is not ill-appearing. Neurological: Mental Status: She is alert. ACTIVE PROBLEM LIST Asthma Esophageal Reflux Tobacco Use Disorder Anxiety With Depression Overactive Bladder Pain of Left Shoulder Region Non-Adherence to Medical Treatment Current Outpatient Medications Medication Sig oxyCODONE-acetaminophen (PERCOCET) 5-325 mg tablet Take 1 tablet by mouth every 6 hours as needed for pain for up to 3 days. EPINEPHrine (EPIPEN) 0.3 mg/0.3 mL auto-injector GIVE ONE DOSE INTO LATERAL THIGH FOR ALLERGIC REACTION. REPEAT DOSE IN 5-15 MINUTES IF NOT IMPROVING ondansetron orally disintegrating (ZOFRAN ODT) 4 mg disintegrating tablet Take 1 tablet by mouth every 6 hours as needed for nausea/vomiting. LORazepam (ATIVAN) 0.5 mg Take 1 tablet by mouth at bedtime as needed (anxiety) for up to 30 days. celecoxib (CELEBREX) 200 mg capsule Take two tablets now then take one tablet every 12 hours as needed for pain. Take with food. Do not take diclofenac while taking this medication. For pain albuterol HFA (VENTOLIN HFA) 90 mcg/actuation inhaler INHALE TWO PUFFS BY MOUTH EVERY 6 HOURS NEEDED FOR WHEEZING OR SHORTNESS OF BREATH lidocaine (LIDODERM) 5 % Apply 1 Patch as directed every 24 hours. to affected area. Remove patch after 12 hours. No current facility-administered medications for this visit. Assessment and Plan 1. Pain of left shoulder region - ICD9: 719.41, ICD10: M25.512 (primary diagnosis) - OXYCODONE-ACETAMINOPHEN 5 MG-325 MG TABLET One time prescription. There will be no opioid refills from this office in the near future. She is advised to reach out to Dr. Bar for further pain concerns. 2. Anxiety with depression - ICD9: 300.4, ICD10: F41.8 Non compliant with duloxetine. 3. Thoracic outlet syndrome - ICD9: 353.0, ICD10: G54.0 Non compliant with pregabalin. 4. Non-adherence to medical treatment - ICD9: V15.81, ICD10: Z91.199 See above. Letter for another month of work restriction was given. Patient indicated understanding and willingness to follow recommendations. Yassine Radford MD documented in this encounter [facility] 02-23-2023 Miscellaneous Notes Last office visit: 02/20/23 Next appointment scheduled: No future appointments scheduled at this time. Patient phones requesting refills as follows: Requested Prescriptions Pending Prescriptions Disp Refills ondansetron orally disintegrating (ZOFRAN ODT) 4 mg disintegrating tablet 20 tablet 0 Sig: Take 1 tablet by mouth every 6 hours as needed for nausea/vomiting. Please review and advise. Shelbie Bass LPN documented in this encounter [facility] 02-20-2023 Note HNO ID: [id number] Author: Beatrice Camargo APRN.RETAIL CLERK Service: ? Author Type: Nurse Practitioner Type: Progress Notes Filed: 02/21/2023 2:41 PM Note Text: CC: Patient presents with: Medication Follow-up: Ativan - severe pain HPI Anne Chung is a 37 year old female who presents today for above. Patient reports flare up of severe neck and shoulder pain which she attributes to thoracic outlet syndrome. This has been an ongoing issue for some time now and she has been evaluated by multiple specialists for this. She saw vascular surgery 12/08/22 who ordered an MRI. There were issues with insurance approval and she did not have done until 02/13. MRI shoulder was normal and MRI cervical spine showed spondylosis with mild/moderate left foraminal stenosis at C3-C4. She was notified of results and advised to follow-up with spine medicine. She most recently seen by pain management with [facility] on 02/19. He recommended injections but needed results of MRI first. She was also prescribed Medrol dose pack. She was on Celebrex but advised to stop while on steroids, patient reports it didn't really help any ways. Not getting any pain relief from the steroids and Tylenol. Requesting something stronger for the pain. She also needs refill on Ativan, uses at bedtime as needed. Does not take often, has been under a lot of stress recently. REVIEW OF SYSTEMS See HPI PAST MEDICAL HISTORY Diagnosis Date Abnormal mammogram 02/16/2017 ASCUS (atypical squamous cells of undetermined significance) on Pap smear 09/24/2013 ASTHMA UNSPECIFIED 07/26/2006 BIPOLAR DISORDER NOS 07/26/2006 COVID 11/27/2021 Esophageal reflux 08/23/2006 Hidradenitis 01/15/2007 Hot flashes Insomnia Irritable bowel syndrome 03/15/2012 Mastodynia 08/23/2006 Mixed stress and urge urinary incontinence 12/13/2019 Nausea 01/02/2011 Raynaud's phenomenon without gangrene 02/01/2017 Thoracic outlet syndrome 06/14/2020 Tobacco use disorder 12/25/2006 Vaginal dryness PAST SURGICAL HISTORY Procedure Laterality Date ANESTHESIA PARTIAL RIB RESECTION NOS Left 09/26/2021 1st supraclavicular rib, neurolysis BREAST BIOPSY NEEDLE LEFT Left 03/18/2018 benign x 3 BX BREAST W/DEVICE 1ST LESION ULTRASOUND GUID Left 03/02/2017 COLONOSCOPY FLX DX W/COLLJ SPEC WHEN PFRMD 06/11/2012 Colonoscopy COLONOSCOPY FLX DX W/COLLJ SPEC WHEN PFRMD 11/08/2016 Colonoscopy mac EGD TRANSORAL BIOPSY SINGLE/MULTIPLE 10/26/2009 ESOPHAGOGASTRODUODENOSCOPY TRANSORAL DIAGNOSTIC 07/21/2011 EGD ESOPHAGOGASTRODUODENOSCOPY TRANSORAL DIAGNOSTIC 11/08/2016 EGD mac EXT HYSTERECTOMY,W/PARTIAL VAGINECTO 04/2015 Non-cancer. LAPAROSCOPIC SALPING/OOPHORECTOMY Left 10/23/2018 lysis of adhesions, Dr. Romelia SEGURA ABD PRTMANDOMENTUM DX W/WO SPEC BR/WA SPX 2013 Laparoscopy twice PAST SURGICAL HISTORY OF 2011 dental extraction ALLERGIES Bees, Morphine, Penicillins, Valium [Diazepam], and Tessalon [Benzonatate] MEDICATIONS predniSONE (DELTASONE) 10 mg tablet Take by mouth. celecoxib (CELEBREX) 200 mg capsule Take two tablets now then take one tablet every 12 hours as needed for pain. Take with food. Do not take diclofenac while taking this medication. For pain oxyCODONE-acetaminophen (PERCOCET) 5-325 mg tablet Take 1 tablet by mouth every 8 hours as needed for pain. albuterol HFA (VENTOLIN HFA) 90 mcg/actuation inhaler INHALE TWO PUFFS BY MOUTH EVERY 6 HOURS NEEDED FOR WHEEZING OR SHORTNESS OF BREATH pregabalin (LYRICA) 100 mg capsule Take 1 capsule by mouth daily at bedtime for 180 days. DULoxetine (CYMBALTA) 60 mg capsule Take 1 capsule by mouth once daily. lidocaine (LIDODERM) 5 % Apply 1 Patch as directed every 24 hours. to affected area. Remove patch after 12 hours. ondansetron orally disintegrating (ZOFRAN ODT) 4 mg disintegrating tablet Take 1 tablet by mouth every 6 hours as needed for nausea/vomiting. cyclobenzaprine (FLEXERIL) 10 mg tablet Take 1 tablet by mouth at bedtime as needed for muscle spasm or pain. oxybutynin ER (DITROPAN XL) 10 mg 24 hr tablet Take 1 tablet by mouth once daily. pantoprazole DR (PROTONIX) 40 mg tablet Take 1 tablet by mouth daily before breakfast. Take on empty stomach, 1/2 hr before meal. EPINEPHrine (EPIPEN) 0.3 mg/0.3 mL auto-injector GIVE ONE DOSE INTO LATERAL THIGH FOR ALLERGIC REACTION. REPEAT DOSE IN 5-15 MINUTES IF NOT IMPROVING acetaminophen (TYLENOL) 500 mg tablet Take 2 tablets by mouth every 8 hours. albuterol (PROVENTIL) 2.5 mg /3 mL (0.083 %) nebulizer solution Use 3 mL via nebulizer three times daily as needed. OVER 5-15 MINUTES. FOR WHEEZING AND SHORTNESS OF BREATH. FAMILY HISTORY Problem Relation Age of Onset Asthma Mother Headache Mother migraine Psychiatry Mother depression, Arthritis Mother chronic pain, fibromyalgia Cancer Mother ovarian (ovarian remit syndrome had since 1991 with a complete hysterectomy)/ cancer of foot Heart Mother disea (more content not included)... [facility] 02-20-2023 Miscellaneous Notes Ms. Chung called in response to a [employer] message about scheduling an appointment with [facility]. She would like a call back to let her know why she needs the appointment. Deborah Rincon Radar Operator documented in this encounter [facility] 02-13-2023 Note HNO ID: [id number] Author: RT Mirlande(R) Service: ? Author Type: Technologist Type: Progress Notes Filed: 02/13/2023 2:02 PM Note Text: Radiology Service Progress Note PATIENT NAME: Anne Chung DATE OF SERVICE: February 13, 2023 TIME: 2:02 PM PATIENT IDENTITY VERIFICATION COMPLETED USING TWO (2) IDENTIFIERS: Name and Date of confirmed by patient verbally. FALL SCREENING: Has the patient had 2 falls in the last year or 1 fall with injury or currently using an Ambulatory Assistive Device (Walker, Cane, Wheelchair, Crutches, etc.)? No PATIENT GENDER DATA: Female. status: : No status: NO. PATIENT RELEVANT IMPLANT DATA REVIEWED: Yes RADIOLOGY DEPARTMENT: MR; Exam(s) Completed: Spine: Cervical spine Upper MSK: Shoulder, left PERIPHERAL IV DATA: Not applicable SIGNED BY: RT Mirlande(R) February 13, 2023 2:02 PM [facility] 02-05-2023 Miscellaneous Notes TERESE: 01/29/2023 Distance Health Last refill: 01/29/2023 QTY: 9 Refills: 0 documented in this encounter [facility] 01-29-2023 Note HNO ID: [id number] Author: German Pires APRN.FISHER EEL SPEAR Service: ? Author Type: Nurse Specialist Type: Progress Notes Filed: 01/29/2023 11:58 AM Note Text: I have communicated my name and active licensure. The patient's identity and physical location were verified at the time of this visit. Either the patient or their legal career services representative has been informed of the risks and benefits of -- and alternatives to -- treatment through a remote evaluation and consents to proceed with the evaluation remotely. Video visit. In [place]. Patient only. Consents to visit. SUBJECTIVE: HEPATITIS B(1 of 3 - 3-dose series) Never done COVID-19 VACCINE(1) Never done DTAP,TDAP,TD(2 - Td or Tdap) due on 09/24/2022 HPI Anne Chung is a 37 year old female. PMH significant for ACTIVE PROBLEM LIST Asthma Esophageal Reflux Tobacco Use Disorder Thoracic Outlet Syndrome Anxiety With Depression Overactive Bladder Acute Pain of Left Shoulder HPI excerpted from previous visits: PCP: Yassine Radford MD Presents today regarding a lump. She reports being seen by her ASSESSMENT MANAGER Dr. Cunningham for folliculitis which she reports was incised and drained about 1 week ago. Treated with Bactrim and Oxy IR. Presents today stating she cannot get a hold of Dr. Cunningham. Notes she had 2 lesions 1 healed and 1 remains and is painful. States would like to see pain management Dr Yang. Consult was placed in May, has not yet proceeded with this. Would like to proceed now. She has had chronic pain with thoracic outlet syndrome, taking lyrica, duloxetine, and cyclobenzaprine at night as it makes her drowsy during the day. States diclofenac did not help much with her pain. Vascular surgeon Dr. Blackman ordered MRI of neck and shoulder for chronic neck and left shoulder pain. She has a physical therapy appointment upcoming as well. She was seen by PCP December 28, 2022 for TOS. Noted evaluation ongoing. Weight restriction less than 15 pounds for the left arm for 1 month pending evaluations with vascular. MRI has been ordered by her vascular surgeon, scheduled. [employer] messages indicate insurance denial. Provider and vascular surgery department is completing a peer to peer for MRIs ordered of C-spine and left shoulder. She has appointment scheduled with pain management. Notes indicate pain management would like MRIs before considering invasive treatments. Today reports neck and ear pain. Notes left ear pain radiating from left shoulder to left ear. She reports not going to pain management appointment and as MRIs were not approved. Not currently consistently taking Celebrex or Flexeril. Requests Percocets. Review of Systems Constitutional: Negative. HENT: Positive for ear pain. Musculoskeletal: Positive for arthralgias and neck pain. Objective LMP 05/16/2015 Physical Exam Constitutional: Appearance: Normal appearance. HENT: Head: Normocephalic and atraumatic. Eyes: Conjunctiva/sclera: Conjunctivae normal. Pulmonary: Effort: Pulmonary effort is normal. Neurological: General: No focal deficit present. Mental Status: She is alert and oriented to person, place, and time. ALLERGIES Allergen Reactions Bees Anaphylaxis Pt had swelling, was given epipen at ER. Morphine Rash Left arm turned red when given IV morphine Penicillins Other: See Comments Patient refuses due to family allergy to PCN. Valium [Diazepam] Hives Hives on chest only. Tessalon [Benzonata* Rash Medication albuterol HFA (VENTOLIN HFA) 90 mcg/actuation inhaler INHALE TWO PUFFS BY MOUTH EVERY 6 HOURS NEEDED FOR WHEEZING OR SHORTNESS OF BREATH celecoxib (CELEBREX) 200 mg capsule Take two tablets now then take one tablet every 12 hours as needed for pain. Take with food. Do not take diclofenac while taking this medication. For pain pregabalin (LYRICA) 100 mg capsule Take 1 capsule by mouth daily at bedtime for 180 days. DULoxetine (CYMBALTA) 60 mg capsule Take 1 capsule by mouth once daily. lidocaine (LIDODERM) 5 % Apply 1 Patch as directed every 24 hours. to affected area. Remove patch after 12 hours. ondansetron orally disintegrating (ZOFRAN ODT) 4 mg disintegrating tablet Take 1 tablet by mouth every 6 hours as needed for nausea/vomiting. cyclobenzaprine (FLEXERIL) 10 mg tablet Take 1 tablet by mouth at bedtime as needed for muscle spasm or pain. oxybutynin ER (DITROPAN XL) 10 mg 24 hr tablet Take 1 tablet by mouth once daily. pantoprazole DR (PROTONIX) 40 mg tablet Take 1 tablet by mouth daily before breakfast. Take on empty stomach, 1/2 hr before meal. EPINEPHrine (EPIPEN) 0.3 mg/0.3 mL auto-injector GIVE ONE DOSE INTO LATERAL THIGH FOR ALLERGIC REACTION. REPEAT DOSE IN 5-15 MINUTES IF NOT IMPROVING acetaminophen (TYLENOL) 500 mg tablet Take 2 tablets by mouth every 8 hours. albuterol (PROVENTIL) 2.5 mg /3 mL (0.083 %) nebulizer solution Use 3 mL via nebulizer three times daily as needed. OVER 5-15 LONNIE (more content not included)... [facility] 01-29-2023 History of Presen t illness Narrative I have communicated my name and active licensure. The patient's identity and physical location were verified at the time of this visit. Either the patient or their legal career services representative has been informed of the risks and benefits of -- and alternatives to -- treatment through a remote evaluation and consents to proceed with the evaluation remotely. Video visit. In [place]. Patient only. Consents to visit. SUBJECTIVE: HEPATITIS B(1 of 3 - 3-dose series) Never done COVID-19 VACCINE(1) Never done DTAP,TDAP,TD(2 - Td or Tdap) due on 09/24/2022 HPI Anne Chung is a 37 year old female. PMH significant for ACTIVE PROBLEM LIST Asthma Esophageal Reflux Tobacco Use Disorder Thoracic Outlet Syndrome Anxiety With Depression Overactive Bladder Acute Pain of Left Shoulder HPI excerpted from previous visits: PCP: Yassine Radford MD Presents today regarding a lump. She reports being seen by her ASSESSMENT MANAGER Dr. Cunningham for folliculitis which she reports was incised and drained about 1 week ago. Treated with Bactrim and Oxy IR. Presents today stating she cannot get a hold of Dr. Cunningham. Notes she had 2 lesions 1 healed and 1 remains and is painful. [facility] would like to see pain management Dr Yang. Consult was placed in May, has not yet proceeded with this. Would like to proceed now. She has had chronic pain with thoracic outlet syndrome, taking lyrica, duloxetine, and cyclobenzaprine at night as it makes her drowsy during the day. States diclofenac did not help much with her pain. Vascular surgeon Dr. Blackman ordered MRI of neck and shoulder for chronic neck and left shoulder pain. She has a physical therapy appointment upcoming as well. She was seen by PCP December 28, 2022 for TOS. Noted evaluation ongoing. Weight restriction less than 15 pounds for the left arm for 1 month pending evaluations with vascular. MRI has been ordered by her vascular surgeon, scheduled. [employer] messages indicate insurance denial. Provider and vascular surgery department is completing a peer to peer for MRIs ordered of C-spine and left shoulder. She has appointment scheduled with pain management. Notes indicate pain management would like MRIs before considering invasive treatments. Today reports neck and ear pain. Notes left ear pain radiating from left shoulder to left ear. She reports not going to pain management appointment and as MRIs were not approved. Not currently consistently taking Celebrex or Flexeril. Requests Percocets. Review of Systems Constitutional: Negative. HENT: Positive for ear pain. Musculoskeletal: Positive for arthralgias and neck pain. Objective LMP 05/16/2015 Physical Exam Constitutional: Appearance: Normal appearance. HENT: Head: Normocephalic and atraumatic. Eyes: Conjunctiva/sclera: Conjunctivae normal. Pulmonary: Effort: Pulmonary effort is normal. Neurological: General: No focal deficit present. Mental Status: She is alert and oriented to person, place, and time. ALLERGIES Allergen Reactions Bees Anaphylaxis Pt had swelling, was given epipen at ER. Morphine Rash Left arm turned red when given IV morphine Penicillins Other: See Comments Patient refuses due to family allergy to PCN. Valium [Diazepam] Hives Hives on chest only. Tessalon [Benzonata* Rash Medication albuterol HFA (VENTOLIN HFA) 90 mcg/actuation inhaler INHALE TWO PUFFS BY MOUTH EVERY 6 HOURS NEEDED FOR WHEEZING OR SHORTNESS OF BREATH celecoxib (CELEBREX) 200 mg capsule Take two tablets now then take one tablet every 12 hours as needed for pain. Take with food. Do not take diclofenac while taking this medication. For pain pregabalin (LYRICA) 100 mg capsule Take 1 capsule by mouth daily at bedtime for 180 days. DULoxetine (CYMBALTA) 60 mg capsule Take 1 capsule by mouth once daily. lidocaine (LIDODERM) 5 % Apply 1 Patch as directed every 24 hours. to affected area. Remove patch after 12 hours. ondansetron orally disintegrating (ZOFRAN ODT) 4 mg disintegrating tablet Take 1 tablet by mouth every 6 hours as needed for nausea/vomiting. cyclobenzaprine (FLEXERIL) 10 mg tablet Take 1 tablet by mouth at bedtime as needed for muscle spasm or pain. oxybutynin ER (DITROPAN XL) 10 mg 24 hr tablet Take 1 tablet by mouth once daily. pantoprazole DR (PROTONIX) 40 mg tablet Take 1 tablet by mouth daily before breakfast. Take on empty stomach, 1/2 hr before meal. EPINEPHrine (EPIPEN) 0.3 mg/0.3 mL auto-injector GIVE ONE DOSE INTO LATERAL THIGH FOR ALLERGIC REACTION. REPEAT DOSE IN 5-15 MINUTES IF NOT IMPROVING acetaminophen (TYLENOL) 500 mg tablet Take 2 tablets by mouth every 8 hours. albuterol (PROVENTIL) 2.5 mg /3 mL (0.083 %) nebulizer solution Use 3 mL via nebulizer three times daily as needed. OVER 5-15 MINUTES. FOR WHEEZING AND SHORTNESS OF BREATH. PAST MEDICAL HISTORY Diagnosis Date Abnormal mammogram 02/16/2017 ASCUS (atypical squamous cells of undetermined significance) on Pap smear 09/24/2013 ASTHMA UNSPECIFIED 07/26/2006 BIPOLAR DISORDER NOS 07/26/2006 COVID 11/27/2021 Esophageal reflux 08/23/2006 Hidradenitis 01/15/2007 Hot flashes Insomnia Irritable bowel syndrome 03/15/2012 Mastodynia 08/23/2006 Mixed stress and urge urinary incontinence 12/13/2019 Nausea 01/02/2011 Raynaud's phenomenon without gangrene 02/01/2017 Thoracic outlet syndrome 06/14/2020 Tobacco use disorder 12/25/2006 Vaginal dryness Social History Tobacco Use Smoking status: Every Day Packs/day: 1.00 Years: 29.00 Pack years: 29.00 Types: Cigarettes Start date: 10/26/1992 Smokeless tobacco: Never Tobacco comments: started age 17 Vaping Use Vaping Use: Never used Substance Use Topics Alcohol use: No Drug use: Not Currently Types: Marijuana ASSESSMENT/PLAN: 1. Thoracic outlet syndrome - ICD9: 353.0, ICD10: G54.0 (primary diagnosis) 2. Chronic post-operative pain - ICD9: 338.28, ICD10: G89.28 3. Cervicalgia - ICD9: 723.1, ICD10: M54.2 4. Chronic left shoulder pain - ICD9: 719.41, 338.29, ICD10: M25.512, G89.29 Note she is working with surgeon to complete MRIs to evaluate neck and shoulder pain then plans to see pain management Dr. Yang at [facility]. PCP referred her to pain management, declined to fill opiates. She is not currently taking Flexeril or celecoxib. Recommend she resume both and take daily for now. 3 days opiate pain medications provided for breakthrough pain Keep scheduled appointment with Dr. Yang pain management. German Pires APRN.CNS 20 min in visit Medical Decision Making: Medical Decision Making Level: 1 - N/A documented in this encounter [facility] 12-29-2022 Miscellaneous Notes Peer to Peer requested for: [id number] [place] [id number] [place] CERVICAL SPINE WO [place] Spoke with At [facility] - requested further information. Called pt and documented necessary information in telephone encounter from 12/29/22. Called insurance company back - requested us to fax this documentation for further review. Fax information faxed to . Received confirmation receipt from transmission report. Carol Rainey APRN.YORDY documented in this encounter [facility] 12-29-2022 Miscellaneous Notes Called insurance company at 9:20am today 12/29/22 for peer to peer for MRI of c-spine and left shoulder. Insurance company said they needed further documentation of patient's activity level/modifications/medication regimen/etc. At 9:50am called pt to discuss the following: Pt said that she has needed activity modification including resting her arm throughout the day for the past year. Pt has utilized tylenol for the past year along with other muscle relaxers including flexeril. Pt has also used gabapentin, and currently uses lyrica and cymbalta for the past 6 months. Pt has also used lidocaine patches for the past 2 years with little relief. Pt restarted physical therapy - last session 12/28/22 where they enforced a 15lb weight restriction. Pt states pain interferes with daily function, especially over past 6 months since she works at [employer] and the job requires lifting. Pt to f/u with pain management - next appointment is 01/16/23. Pt states pain management would like MRIs before considering invasive treatments. No vascular surgery plans at this time. I will contact insurance company again to discuss this information to seek approval for MRIs. Carol Rainey APRN.CNP documented in this encounter [facility] 12-28-2022 Note HNO ID: [id number] Author: Yassine Radford MD Service: ? Author Type: Physician Type: Progress Notes Filed: 12/28/2022 1:55 PM Note Text: This note was created using Roll[employer]. Subjective Anne Chung is a 37 year old female. She saw vascular who felt left neck and shoulder pain was not TOS. MRI of the neck and shoulder was ordered. She started physical therapy and it was felt weight restriction for her left arm can be beneficial. She needed a letter for work to reflect this. She was scheduled to consult with Dr. Edouard Bar for pain management. I declined to refill opioid at this time. Review of Systems No change. ACTIVE PROBLEM LIST Asthma Esophageal Reflux Tobacco Use Disorder Thoracic Outlet Syndrome Anxiety With Depression Overactive Bladder Acute Pain of Left Shoulder Objective BP 116/68 (BP Site: Right Arm, BP Position: Sitting, BP Cuff Size: Large Adult) Pulse 80 Temp 36.3 ?C (97.3 ?F) (Temporal) Resp 16 Wt 78.5 kg (173 lb) LMP 05/16/2015 BMI 33.79 kg/m? Physical Exam Constitutional: General: She is not in acute distress. Appearance: She is not ill-appearing. Musculoskeletal: Comments: Favoring left arm. Neurological: Mental Status: She is alert. Gait: Gait normal. Assessment and Plan 1. Thoracic outlet syndrome - ICD9: 353.0, ICD10: G54.0 Evaluation ongoing. Weight restriction <15 pounds for the left arm for one month, pending evaluations. Letter done. Yassine Radford MD [facility] 12-28-2022 History of Presen t illness Narrative This note was created using Roll[employer]. Subjective Anne Chung is a 37 year old female. She saw vascular who felt left neck and shoulder pain was not TOS. MRI of the neck and shoulder was ordered. She started physical therapy and it was felt weight restriction for her left arm can be beneficial. She needed a letter for work to reflect this. She was scheduled to consult with Dr. Edouard Bar for pain management. I declined to refill opioid at this time. Review of Systems No change. ACTIVE PROBLEM LIST Asthma Esophageal Reflux Tobacco Use Disorder Thoracic Outlet Syndrome Anxiety With Depression Overactive Bladder Acute Pain of Left Shoulder Objective BP 116/68 (BP Site: Right Arm, BP Position: Sitting, BP Cuff Size: Large Adult) Pulse 80 Temp 36.3 C (97.3 F) (Temporal) Resp 16 Wt 78.5 kg (173 lb) LMP 05/16/2015 BMI 33.79 kg/m Physical Exam Constitutional: General: She is not in acute distress. Appearance: She is not ill-appearing. Musculoskeletal: Comments: Favoring left arm. Neurological: Mental Status: She is alert. Gait: Gait normal. Assessment and Plan 1. Thoracic outlet syndrome - ICD9: 353.0, ICD10: G54.0 Evaluation ongoing. Weight restriction <15 pounds for the left arm for one month, pending evaluations. Letter done. Yassine Radford MD documented in this encounter [facility] 12-28-2022 Note HNO ID: [id number] Author: Hao Butcher PT Service: ? Author Type: Physical Therapist Type: Progress Notes Filed: 12/28/2022 1:27 PM Note Text: Episode Visit Count: 1 Therapist That Will Accept/Oversee The Plan Of Care: Hao Butcher Start of Care Date: 12/28/22 Onset Date: 06/14/19 Plan of Care Certification Date: 12/28/22 Next Certification Due Date: 02/01/23 Patient Identified by Name and Date of : Yes REHABILITATION AND SPORTS THERAPY PHYSICAL THERAPY EVALUATION PLAN OF CARE: Assessment: Anne Chung presents with chief complaint of L neck and shoulder pain that interferes with sleeping, reaching overhead, lifting . She presents with impairments in posture, strength , and symptom management. PROMIS? (Patient-Reported Outcomes Measurement Information System) scores were reviewed and physical function domain identified as a rehabilitation concern. Prognosis for therapy is Good due to: current objective clinical presentation . Pt yesenia's positive empty can test on the L and painful arc sign. She will benefit from skilled therapy services to meet the goals established for this plan of care as noted below. Goals for Episode of Care: created on 12/28/22 through 02/22/23 Pt will demo 5/5 strength via MMT without pain of the L shoulder for ease of work duties [place] in home exercise program. Increase ROM of the L shoulder to WNL for reaching overhead Patient Goals: Decrease pain Planned Interventions, Frequency, and Duration: Current Frequency: 1x/week Duration: 4 weeks Total Number of Visits Planned: 4 Planned Treatment Interventions: Therapeutic exercise (12842), Neuromuscular re-education (09377), Manual therapy (54683), Self-shelter management (09785), Patient/Family/Caregiver Education PLAN FOR NEXT VISIT: Supraspinatus strengthening. STM over L upper trap gently. Patient demonstrates good understanding of plan of care and treatment. The above goals and plan of care were discussed and agreed upon by patient/family. SUBJECTIVE: Anne Chung is a 37 year old female seen today for Neck pain. Some tingling in the upper part of the chest. No pain that travels down the arm. Heat helps. Some swelling at night in the L hand. Patient Goals: Decrease pain Functional Limitations: sleeping, reaching overhead, lifting Prior Level of Function: Independent without limitations Relevant History Preferred Language: Omani Intake Information: Prescription present Previous Treatment: Physical Therapy , Pain meds , Muscle relaxer Pain: Pain Pain Level: 8 Pain Location: Neck, Neck - Left Description: Throbbing PROMIS Scales Higher is Better 10/05/2022 12/10/2022 12/26/2022 Phys Func - Score - 46 (within normal limits) - Phys Func - Percentile - 34 % - Social Roles - Score - - - Social Role - Percentile - - - GH Physical - Score 37.4 (Fair) - 37.4 (Fair) GH Physical - Percentile 10 % - 10 % GH Mental - Score 50.8 (Very Good) - 50.8 (Very Good) GH Mental - Percentile 53 % - 53 % Self-Eff Symptom - Score - 36 (Low) - Self-Eff Symptom - Percentile - 8 % - T-scores: mean of general population = 50. 5 points is clinically meaningfully difference Percentiles provide an indication of how the patient's score ranks in relation to the general population. Higher percentile rankings indicate better function/quality of life. 50th percentile is the average of the general population and indicates half of respondents had a worse score. Lower is Better 10/08/2021 Fatigue - Score 38 (within normal limits) Fatigue - Percentile 88 % T-scores: mean of general population = 50. 5 points is clinically meaningfully difference Percentiles provide an indication of how the patient's score ranks in relation to the general population. Higher percentile rankings indicate better function/quality of life. 50th percentile is the average of the general population and indicates half of respondents had a worse score. OBJECTIVE MEASURES WITH LEVEL OF FUNCTION: Posture / Alignment Posture: Rounded shoulders Cervical Spine ROM Cervical ROM : Limitation AROM Cervical Flexion AROM: Normal Cervical Extension AROM: Normal (end range pain) Cervical Side-Bend Right AROM: Minimal limitation (Pain in the L ear with this at end range) Cervical Side-Bend Left AROM: Normal Cervical Rotation Right AROM: Minimal limitation (some pain around clavicle on the L) Cervical Rotation Left AROM: Normal UE AROM R UE AROM: WNL L Shoulder Flex: 140 Degrees Spine Joint Mobility Spine Joint Mobility : Cervical/Thoracic Joint Mobility Comment: Pain throughout the entire C-spine with PA's Joint Mobility - C1: WNL Joint Mobility - C2: WNL Joint Mobility - C3: WNL Joint Mobility - C4: WNL Joint Mobility - C5: WNL Joint Mobility - C6: WNL UE and Cervical Strength Strength Tested: Shoulder All R UE Strength: Grossly 4+/5 L Shoulder Flexion: 4-/5 L Shoulder A (more content not included)... [facility] 12-28-2022 History of Presen t illness Narrative Episode Visit Count: 1 Therapist That Will Accept/Oversee The Plan Of Care: Hao Butcher Start of Care Date: 12/28/22 Onset Date: 06/14/19 Plan of Care Certification Date: 12/28/22 Next Certification Due Date: 03/09/23 Patient Identified by Name and Date of : Yes REHABILITATION AND SPORTS THERAPY PHYSICAL THERAPY EVALUATION PLAN OF CARE: Assessment: Anne Chung presents with chief complaint of L neck and shoulder pain that interferes with sleeping, reaching overhead, lifting . She presents with impairments in posture, strength , and symptom management. PROMIS (Patient-Reported Outcomes Measurement Information System) scores were reviewed and physical function domain identified as a rehabilitation concern. Prognosis for therapy is Good due to: current objective clinical presentation . Pt williamo's positive empty can test on the L and painful arc sign. She will benefit from skilled therapy services to meet the goals established for this plan of care as noted below. Goals for Episode of Care: created on 12/28/22 through 02/22/23 Pt will demo 5/5 strength via MMT without pain of the L shoulder for ease of work duties [place] in home exercise program. Increase ROM of the L shoulder to WNL for reaching overhead Patient Goals: Decrease pain Planned Interventions, Frequency, and Duration: Current Frequency: 1x/week Duration: 4 weeks Total Number of Visits Planned: 4 Planned Treatment Interventions: Therapeutic exercise (43046), Neuromuscular re-education (15321), Manual therapy (64572), Self-shelter management (86366), Patient/Family/Caregiver Education PLAN FOR NEXT VISIT: Supraspinatus strengthening. STM over L upper trap gently. Patient demonstrates good understanding of plan of care and treatment. The above goals and plan of care were discussed and agreed upon by patient/family. SUBJECTIVE: Anne Chung is a 37 year old female seen today for Neck pain. Some tingling in the upper part of the chest. No pain that travels down the arm. Heat helps. Some swelling at night in the L hand. Patient Goals: Decrease pain Functional Limitations: sleeping, reaching overhead, lifting Prior Level of Function: Independent without limitations Relevant History Preferred Language: Omani Intake Information: Prescription present Previous Treatment: Physical Therapy , Pain meds , Muscle relaxer Pain: Pain Pain Level: 8 Pain Location: Neck, Neck - Left Description: Throbbing PROMIS Scales Higher is Better 10/05/2022 12/10/2022 12/26/2022 Phys Func - Score - 46 (within normal limits) - Phys Func - Percentile - 34 % - Social Roles - Score - - - Social Role - Percentile - - - GH Physical - Score 37.4 (Fair) - 37.4 (Fair) GH Physical - Percentile 10 % - 10 % GH Mental - Score 50.8 (Very Good) - 50.8 (Very Good) GH Mental - Percentile 53 % - 53 % Self-Eff Symptom - Score - 36 (Low) - Self-Eff Symptom - Percentile - 8 % - T-scores: mean of general population = 50. 5 points is clinically meaningfully difference Percentiles provide an indication of how the patient's score ranks in relation to the general population. Higher percentile rankings indicate better function/quality of life. 50th percentile is the average of the general population and indicates half of respondents had a worse score. Lower is Better 10/08/2021 Fatigue - Score 38 (within normal limits) Fatigue - Percentile 88 % T-scores: mean of general population = 50. 5 points is clinically meaningfully difference Percentiles provide an indication of how the patient's score ranks in relation to the general population. Higher percentile rankings indicate better function/quality of life. 50th percentile is the average of the general population and indicates half of respondents had a worse score. OBJECTIVE MEASURES WITH LEVEL OF FUNCTION: Posture / Alignment Posture: Rounded shoulders Cervical Spine ROM Cervical ROM : Limitation AROM Cervical Flexion AROM: Normal Cervical Extension AROM: Normal (end range pain) Cervical Side-Bend Right AROM: Minimal limitation (Pain in the L ear with this at end range) Cervical Side-Bend Left AROM: Normal Cervical Rotation Right AROM: Minimal limitation (some pain around clavicle on the L) Cervical Rotation Left AROM: Normal UE AROM R UE AROM: WNL L Shoulder Flex: 140 Degrees Spine Joint Mobility Spine Joint Mobility : Cervical/Thoracic Joint Mobility Comment: Pain throughout the entire C-spine with PA's Joint Mobility - C1: WNL Joint Mobility - C2: WNL Joint Mobility - C3: WNL Joint Mobility - C4: WNL Joint Mobility - C5: WNL Joint Mobility - C6: WNL UE and Cervical Strength Strength Tested: Shoulder All R UE Strength: Grossly 4+/5 L Shoulder Flexion: 4-/5 L Shoulder Abduction (C5): 4-/5 Education: Education Learning Preferences: Demonstration, Explanation, Performance, Printed Materials Barriers: None Learning/educational needs: Home exercise program, Plan of Care Education Provided: Yes, see treatment interventions for education provided Education Provided To: Patient Education Mode/Type: Demonstration, Explanation/Discussion, Literature/Printed Materials, Performance Response to Education/Teach Back: States/Identifies, Return Demonstration TREATMENT: PT Treatment Interventions: Therapeutic Exercise Evaluation Therapeutic Exercise: 2: Standing shoulder abd YTB x 10 (too painful) 3: Standing shoulder abd 1# x 10 (given for home) 4: Standing shoulder abd 2# x 6 (too much weight and causes pain to the L elbow) Skilled Intervention: Patient was educated in proper exercise technique and purpose for exercises. Skilled judgment was provided in selection of appropriate interventions. Provided written instruction for home exercise program to facilitate proper performance and compliance. Correct performance of therapeutic exercises was facilitated with verbal and visual cuing. Billing * Evaluation Low Complexity: 1 Unit Therapeutic Exercise Treatment Minutes: 25 Total Treatment Time Minutes (timed/untimed): 45 Hao Butcher PT documented in this encounter [facility] 12-20-2022 Miscellaneous Notes Patient has been identified by name and date of : Yes Patient phones for refill(s): Requested Prescriptions Pending Prescriptions Disp Refills LORazepam (ATIVAN) 0.5 mg 30 tablet 0 Sig: Take 1 tablet by mouth at bedtime as needed (anxiety) for up to 30 days. Date of last office visit in primary care: 12/11/2022 3 month follow-up: 02/07/2023 Last 2 Encounter Wt Readings: Date: Wt: 12/01/2022 78 kg (172 lb) 11/22/2022 76.2 kg (168 lb) Previous labs/tests for medication: Not applicable Please advise. Thank you. Leticia Persaud LPN documented in this encounter [facility] 12-11-2022 Note HNO ID: [id number] Author: German Pires APRN.FISHER EEL SPEAR Service: ? Author Type: Nurse Specialist Type: Progress Notes Filed: 12/11/2022 3:24 PM Note Text: Video visit. In [place]. Patient only. Consents to visit. SUBJECTIVE: HEPATITIS B(1 of 3 - 3-dose series) Never done COVID-19 VACCINE(1) Never done DTAP,TDAP,TD(2 - Td or Tdap) due on 09/24/2022 HPI Anne Chung is a 37 year old female. PMH significant for ACTIVE PROBLEM LIST Asthma Esophageal Reflux Tobacco Use Disorder Thoracic Outlet Syndrome Anxiety With Depression Overactive Bladder PCP: Yassine Radford MD Presents today regarding a lump. She reports being seen by her ASSESSMENT MANAGER Dr. Cunningham for folliculitis which she reports was incised and drained about 1 week ago. Treated with Bactrim and Oxy IR. Presents today stating she cannot get a hold of Dr. Cunningham. Notes she had 2 lesions 1 healed and 1 remains and is painful. States would like to see pain management Dr Yang. Consult was placed in May, has not yet proceeded with this. Would like to proceed now. She has had chronic pain with thoracic outlet syndrome, taking lyrica, duloxetine, and cyclobenzaprine at night as it makes her drowsy during the day. States diclofenac did not help much with her pain. Vascular surgeon Dr. Blackman ordered MRI of neck and shoulder for chronic neck and left shoulder pain. She has a physical therapy appointment upcoming as well. Review of Systems Constitutional: Negative. Musculoskeletal: Positive for arthralgias and neck pain. Objective LMP 05/16/2015 Physical Exam Vitals and nursing note reviewed. Constitutional: Appearance: Normal appearance. HENT: Head: Normocephalic and atraumatic. Eyes: Conjunctiva/sclera: Conjunctivae normal. Cardiovascular: Rate and Rhythm: Normal rate. Pulmonary: Effort: Pulmonary effort is normal. Neurological: Mental Status: She is alert. ALLERGIES Allergen Reactions Bees Anaphylaxis Pt had swelling, was given epipen at ER. Morphine Rash Left arm turned red when given IV morphine Penicillins Other: See Comments Patient refuses due to family allergy to PCN. Valium [Diazepam] Hives Hives on chest only. Tessalon [Benzonata* Rash Medication celecoxib (CELEBREX) 200 mg capsule Take two tablets now then take one tablet every 12 hours as needed for pain. Take with food. Do not take diclofenac while taking this medication. For pain pregabalin (LYRICA) 100 mg capsule Take 1 capsule by mouth daily at bedtime for 180 days. DULoxetine (CYMBALTA) 60 mg capsule Take 1 capsule by mouth once daily. lidocaine (LIDODERM) 5 % Apply 1 Patch as directed every 24 hours. to affected area. Remove patch after 12 hours. ondansetron orally disintegrating (ZOFRAN ODT) 4 mg disintegrating tablet Take 1 tablet by mouth every 6 hours as needed for nausea/vomiting. cyclobenzaprine (FLEXERIL) 10 mg tablet Take 1 tablet by mouth at bedtime as needed for muscle spasm or pain. oxybutynin ER (DITROPAN XL) 10 mg 24 hr tablet Take 1 tablet by mouth once daily. pantoprazole DR (PROTONIX) 40 mg tablet Take 1 tablet by mouth daily before breakfast. Take on empty stomach, 1/2 hr before meal. albuterol HFA (VENTOLIN HFA) 90 mcg/actuation inhaler INHALE TWO PUFFS BY MOUTH EVERY 6 HOURS NEEDED FOR WHEEZING OR SHORTNESS OF BREATH EPINEPHrine (EPIPEN) 0.3 mg/0.3 mL auto-injector GIVE ONE DOSE INTO LATERAL THIGH FOR ALLERGIC REACTION. REPEAT DOSE IN 5-15 MINUTES IF NOT IMPROVING acetaminophen (TYLENOL) 500 mg tablet Take 2 tablets by mouth every 8 hours. albuterol (PROVENTIL) 2.5 mg /3 mL (0.083 %) nebulizer solution Use 3 mL via nebulizer three times daily as needed. OVER 5-15 MINUTES. FOR WHEEZING AND SHORTNESS OF BREATH. PAST MEDICAL HISTORY Diagnosis Date Abnormal mammogram 02/16/2017 ASCUS (atypical squamous cells of undetermined significance) on Pap smear 09/24/2013 ASTHMA UNSPECIFIED 07/26/2006 BIPOLAR DISORDER NOS 07/26/2006 COVID 11/27/2021 Esophageal reflux 08/23/2006 Hidradenitis 01/15/2007 Hot flashes Insomnia Irritable bowel syndrome 03/15/2012 Mastodynia 08/23/2006 Mixed stress and urge urinary incontinence 12/13/2019 Nausea 01/02/2011 Raynaud's phenomenon without gangrene 02/01/2017 Thoracic outlet syndrome 06/14/2020 Tobacco use disorder 12/25/2006 Vaginal dryness Social History Tobacco Use Smoking status: Every Day Packs/day: 1.00 Years: 29.00 Pack years: 29.00 Types: Cigarettes Start date: 10/26/1992 Smokeless tobacco: Never Tobacco comments: started age 17 Vaping Use Vaping Use: Never used Substance Use Topics Alcohol use: No Drug use: Not Currently Types: Marijuana ASSESSMENT/PLAN: 1. Thoracic outlet syndrome - ICD9: 353.0, ICD10: G54.0 (primary diagnosis) - CELECOXIB 200 MG CAPSULE 2. Chronic post-operative pain - ICD9: 338.28, ICD10: G89.28 - CELECOXIB 200 MG CAPSULE 3. Cervicalgia - ICD9: 723.1, ICD10: M54.2 - (more content not included)... [facility] 12-11-2022 History of Presen t illness Narrative Video visit. In [place]. Patient only. Consents to visit. SUBJECTIVE: HEPATITIS B(1 of 3 - 3-dose series) Never done COVID-19 VACCINE(1) Never done DTAP,TDAP,TD(2 - Td or Tdap) due on 09/24/2022 HPI Anne Chung is a 37 year old female. PMH significant for ACTIVE PROBLEM LIST Asthma Esophageal Reflux Tobacco Use Disorder Thoracic Outlet Syndrome Anxiety With Depression Overactive Bladder PCP: Yassine Radford MD Presents today regarding a lump. She reports being seen by her ASSESSMENT MANAGER Dr. Cunningham for folliculitis which she reports was incised and drained about 1 week ago. Treated with Bactrim and Oxy IR. Presents today stating she cannot get a hold of Dr. Cunningham. Notes she had 2 lesions 1 healed and 1 remains and is painful. States would like to see pain management Dr Yang. Consult was placed in May, has not yet proceeded with this. Would like to proceed now. She has had chronic pain with thoracic outlet syndrome, taking lyrica, duloxetine, and cyclobenzaprine at night as it makes her drowsy during the day. States diclofenac did not help much with her pain. Vascular surgeon Dr. Blackman ordered MRI of neck and shoulder for chronic neck and left shoulder pain. She has a physical therapy appointment upcoming as well. Review of Systems Constitutional: Negative. Musculoskeletal: Positive for arthralgias and neck pain. Objective [facility] 05/16/2015 Physical Exam Vitals and nursing note reviewed. Constitutional: Appearance: Normal appearance. HENT: Head: Normocephalic and atraumatic. Eyes: Conjunctiva/sclera: Conjunctivae normal. Cardiovascular: Rate and Rhythm: Normal rate. Pulmonary: Effort: Pulmonary effort is normal. Neurological: Mental Status: She is alert. ALLERGIES Allergen Reactions Bees Anaphylaxis Pt had swelling, was given epipen at ER. Morphine Rash Left arm turned red when given IV morphine Penicillins Other: See Comments Patient refuses due to family allergy to PCN. Valium [Diazepam] Hives Hives on chest only. Tessalon [Benzonata* Rash Medication celecoxib (CELEBREX) 200 mg capsule Take two tablets now then take one tablet every 12 hours as needed for pain. Take with food. Do not take diclofenac while taking this medication. For pain pregabalin (LYRICA) 100 mg capsule Take 1 capsule by mouth daily at bedtime for 180 days. DULoxetine (CYMBALTA) 60 mg capsule Take 1 capsule by mouth once daily. lidocaine (LIDODERM) 5 % Apply 1 Patch as directed every 24 hours. to affected area. Remove patch after 12 hours. ondansetron orally disintegrating (ZOFRAN ODT) 4 mg disintegrating tablet Take 1 tablet by mouth every 6 hours as needed for nausea/vomiting. cyclobenzaprine (FLEXERIL) 10 mg tablet Take 1 tablet by mouth at bedtime as needed for muscle spasm or pain. oxybutynin ER (DITROPAN XL) 10 mg 24 hr tablet Take 1 tablet by mouth once daily. pantoprazole DR (PROTONIX) 40 mg tablet Take 1 tablet by mouth daily before breakfast. Take on empty stomach, 1/2 hr before meal. albuterol HFA (VENTOLIN HFA) 90 mcg/actuation inhaler INHALE TWO PUFFS BY MOUTH EVERY 6 HOURS NEEDED FOR WHEEZING OR SHORTNESS OF BREATH EPINEPHrine (EPIPEN) 0.3 mg/0.3 mL auto-injector GIVE ONE DOSE INTO LATERAL THIGH FOR ALLERGIC REACTION. REPEAT DOSE IN 5-15 MINUTES IF NOT IMPROVING acetaminophen (TYLENOL) 500 mg tablet Take 2 tablets by mouth every 8 hours. albuterol (PROVENTIL) 2.5 mg /3 mL (0.083 %) nebulizer solution Use 3 mL via nebulizer three times daily as needed. OVER 5-15 MINUTES. FOR WHEEZING AND SHORTNESS OF BREATH. PAST MEDICAL HISTORY Diagnosis Date Abnormal mammogram 02/16/2017 ASCUS (atypical squamous cells of undetermined significance) on Pap smear 09/24/2013 ASTHMA UNSPECIFIED 07/26/2006 BIPOLAR DISORDER NOS 07/26/2006 COVID 11/27/2021 Esophageal reflux 08/23/2006 Hidradenitis 01/15/2007 Hot flashes Insomnia Irritable bowel syndrome 03/15/2012 Mastodynia 08/23/2006 Mixed stress and urge urinary incontinence 12/13/2019 Nausea 01/02/2011 Raynaud's phenomenon without gangrene 02/01/2017 Thoracic outlet syndrome 06/14/2020 Tobacco use disorder 12/25/2006 Vaginal dryness Social History Tobacco Use Smoking status: Every Day Packs/day: 1.00 Years: 29.00 Pack years: 29.00 Types: Cigarettes Start date: 10/26/1992 Smokeless tobacco: Never Tobacco comments: started age 17 Vaping Use Vaping Use: Never used Substance Use Topics Alcohol use: No Drug use: Not Currently Types: Marijuana ASSESSMENT/PLAN: 1. Thoracic outlet syndrome - ICD9: 353.0, ICD10: G54.0 (primary diagnosis) - CELECOXIB 200 MG CAPSULE 2. Chronic post-operative pain - ICD9: 338.28, ICD10: G89.28 - CELECOXIB 200 MG CAPSULE 3. Cervicalgia - ICD9: 723.1, ICD10: M54.2 - CELECOXIB 200 MG CAPSULE 4. Chronic left shoulder pain - ICD9: 719.41, 338.29, ICD10: M25.512, G89.29 - CELECOXIB 200 MG CAPSULE Continue with current treatment plan. Will stop diclofenac and start celecoxib instead. Keep appointment with physical therapy. Schedule appointment with pain management, Dr. Yang at [facility] She will let us know if not feeling improved. German Pires APRN.CNS 20 min in visit Medical Decision Making: Problems: Moderate: 1+ chronic illnesses with change Risk: Moderate: Drug management Medical Decision Making Level: 4 - Moderate documented in this encounter [facility] 12-08-2022 Note HNO ID: [id number] Author: Estevan Blackman MD Service: ? Author Type: Physician Type: Progress Notes Filed: 12/10/2022 12:38 PM Note Text: [facility] [place] DEPARTMENT OF VASCULAR SURGERY OUTPATIENT VISIT DATE December 08, 2022 OUTPATIENT VISIT TYPE ESTABLISHED SERVICE DATE: 12/08/2022 SERVICE TIME: 1:57 PM PRIMARY CARE PHYSICIAN: Yassine Radford MD HISTORY OF PRESENT ILLNESS: Ms. Chung is a 37 year old female who presents today for a vascular surgery follow-up visit. Having left shoulder and neck pain. No numbness or tingling into the arm. PRIOR VASCULAR INTERVENTIONS: Left first rib ( PAST MEDICAL HISTORY Diagnosis Date Abnormal mammogram 02/16/2017 ASCUS (atypical squamous cells of undetermined significance) on Pap smear 09/24/2013 ASTHMA UNSPECIFIED 07/26/2006 BIPOLAR DISORDER NOS 07/26/2006 COVID 11/27/2021 Esophageal reflux 08/23/2006 Hidradenitis 01/15/2007 Hot flashes Insomnia Irritable bowel syndrome 03/15/2012 Mastodynia 08/23/2006 Mixed stress and urge urinary incontinence 12/13/2019 Nausea 01/02/2011 Raynaud's phenomenon without gangrene 02/01/2017 Thoracic outlet syndrome 06/14/2020 Tobacco use disorder 12/25/2006 Vaginal dryness PAST SURGICAL HISTORY Procedure Laterality Date ANESTHESIA PARTIAL RIB RESECTION NOS Left 09/26/2021 1st supraclavicular rib, neurolysis BREAST BIOPSY NEEDLE LEFT Left 03/18/2018 benign x 3 BX BREAST W/DEVICE 1ST LESION ULTRASOUND GUID Left 03/02/2017 COLONOSCOPY FLX DX W/COLLJ SPEC WHEN PFRMD 06/11/2012 Colonoscopy COLONOSCOPY FLX DX W/COLLJ SPEC WHEN PFRMD 11/08/2016 Colonoscopy mac EGD TRANSORAL BIOPSY SINGLE/MULTIPLE 10/26/2009 ESOPHAGOGASTRODUODENOSCOPY TRANSORAL DIAGNOSTIC 07/21/2011 EGD ESOPHAGOGASTRODUODENOSCOPY TRANSORAL DIAGNOSTIC 11/08/2016 EGD mac EXT HYSTERECTOMY,W/PARTIAL VAGINECTO 04/2015 Non-cancer. LAPAROSCOPIC SALPING/OOPHORECTOMY Left 10/23/2018 lysis of adhesions, Dr. Romelia SEGURA ABD PRTMANDOMENTUM DX W/WO SPEC BR/WA SPX 2014 Laparoscopy twice PAST SURGICAL HISTORY OF 2012 dental extraction SOCIAL HISTORY Social History Tobacco Use Smoking status: Every Day Packs/day: 1.00 Years: 29.00 Pack years: 29.00 Types: Cigarettes Start date: 10/26/1992 Smokeless tobacco: Never Tobacco comments: started age 17 Vaping Use Vaping Use: Never used Substance Use Topics Alcohol use: No Drug use: Not Currently Types: Marijuana MEDICATIONS: pregabalin (LYRICA) 100 mg capsule Take 1 capsule by mouth daily at bedtime for 180 days. diclofenac, EC, (VOLTAREN) 75 mg EC tablet Take 1 tablet by mouth twice daily. For pain/inflammation. Take with food. DULoxetine (CYMBALTA) 60 mg capsule Take 1 capsule by mouth once daily. LORazepam (ATIVAN) 0.5 mg Take 1 tablet by mouth at bedtime as needed (anxiety) for up to 30 days. lidocaine (LIDODERM) 5 % Apply 1 Patch as directed every 24 hours. to affected area. Remove patch after 12 hours. ondansetron orally disintegrating (ZOFRAN ODT) 4 mg disintegrating tablet Take 1 tablet by mouth every 6 hours as needed for nausea/vomiting. cyclobenzaprine (FLEXERIL) 10 mg tablet Take 1 tablet by mouth at bedtime as needed for muscle spasm or pain. oxybutynin ER (DITROPAN XL) 10 mg 24 hr tablet Take 1 tablet by mouth once daily. pantoprazole DR (PROTONIX) 40 mg tablet Take 1 tablet by mouth daily before breakfast. Take on empty stomach, 1/2 hr before meal. albuterol HFA (VENTOLIN HFA) 90 mcg/actuation inhaler INHALE TWO PUFFS BY MOUTH EVERY 6 HOURS NEEDED FOR WHEEZING OR SHORTNESS OF BREATH EPINEPHrine (EPIPEN) 0.3 mg/0.3 mL auto-injector GIVE ONE DOSE INTO LATERAL THIGH FOR ALLERGIC REACTION. REPEAT DOSE IN 5-15 MINUTES IF NOT IMPROVING acetaminophen (TYLENOL) 500 mg tablet Take 2 tablets by mouth every 8 hours. albuterol (PROVENTIL) 2.5 mg /3 mL (0.083 %) nebulizer solution Use 3 mL via nebulizer three times daily as needed. OVER 5-15 MINUTES. FOR WHEEZING AND SHORTNESS OF BREATH. ALLERGIES: ALLERGIES Allergen Reactions Bees Anaphylaxis Pt had swelling, was given epipen at ER. Morphine Rash Left arm turned red when given IV morphine Penicillins Other: See Comments Patient refuses due to family allergy to PCN. Valium [Diazepam] Hives Hives on chest only. Tessalon [Benzonata* Rash PHYSICAL EXAM: BP 105/63 Pulse 68 LMP 05/16/2015 General: Alert and oriented, No acute distress Cardiovascular: Pulse regular. Extremities: Left trapezius, paraspinal muscles and shoulder tender to palpation Diagnostic tests reviewed for today's visit: None IMPRESSION: Ms. Chung is a 37 year old female with chronic neck, left shoulder pain s/p left first rib. Her symptoms are not consistent with recurrent neurogenic TOS. PLAN and RECOMMENDATIONS: - MRI cervical spine and left shoulder to evaluate for etiology of pain - Referral to pain management for TPI J (more content not included)... [facility] 12-08-2022 Note HNO ID: [id number] Author: Rosas Baugh MD Service: General Surgery Author Type: Physician Type: Progress Notes Filed: 12/08/2022 3:06 PM Note Text: [facility] General Surgery Rosas Baugh M.D., Paola Torres [facility] [address] [id number] NAME: ANNE KUHN [facility] NO: [id number] DATE OF SERVICE: 12/08/[address]22 PLACE OF ENCOUNTER: [facility] Established patient recently hospitalized and discharged from acute diverticulitis. She was there for three days, discharged on 11/07/2022. She has done well at home. Enjoys good health. She has been losing weight voluntarily. She just finished her second course of antibiotics. She was admitted twice for this. No tenderness or pain at this time. She is having normal movements without blood. No abdominal tenderness on examination. Flat, soft abdomen. This was her only episodes of diverticulitis, none prior. Colonoscopy was a year ago. Psyllium daily supplementation is advised. MiraLAX to avoid constipation is advised. Dietary habits are emphasized. Call or return as needed. May follow up with GI for further counseling. If continues to have flare-ups of diverticulitis, may benefit from laparoscopic sigmoid colectomy. This is not yet recommended, however. The patient knows to call or come back if she has any ongoing symptoms at any time. ROSAS BAUGH M.D. BB/079 Audio #: [id number] Date Dictated: 12/08/2022 11:32:05 Date Typed: 12/08/2022 14:08:06 Date Revised: [facility] 12-08-2022 History of Presen t illness Narrative [facility] General Surgery Rosas Baugh M.D., Antoine. Gabino Loya Counts Include 234 Beds At [facility] [address] [id number] NAME: ANNE KUHN [facility] NO: [id number] DATE OF SERVICE: 12/08/2022 PLACE OF ENCOUNTER: [facility] Established patient recently hospitalized and discharged from acute diverticulitis. She was there for three days, discharged on 11/07/2022. She has done well at home. Enjoys good health. She has been losing weight voluntarily. She just finished her second course of antibiotics. She was admitted twice for this. No tenderness or pain at this time. She is having normal movements without blood. No abdominal tenderness on examination. Flat, soft abdomen. This was her only episodes of diverticulitis, none prior. Colonoscopy was a year ago. Psyllium daily supplementation is advised. MiraLAX to avoid constipation is advised. Dietary habits are emphasized. Call or return as needed. May follow up with GI for further counseling. If continues to have flare-ups of diverticulitis, may benefit from laparoscopic sigmoid colectomy. This is not yet recommended, however. The patient knows to call or come back if she has any ongoing symptoms at any time. ROSAS BAUGH M.D. BB/079 Audio #: [id number] Date Dictated: 12/08/2022 11:32:05 Date Typed: 12/08/2022 14:08:06 Date Revised: documented in this encounter [facility] 12-06-2022 Miscellaneous Notes Notified via Surgient. Left a message for pt to call the office and ask to speak to a nurse. Birgit Velazquez LPN I already gave her Percocet to last till her appointment. It is written for 3 days only for specifying tablet count. I already am concerned about her frequent opioid requests and I recommend again she see pain management. Since she was not satisfied with Dr. Ontiveros here, and she did not want to see Dr. Velazquez; she can be referred to Dr. Bar. She can take Lyrica at bedtime. Anne is saying the Lyrica is making her dizzy and tired and she is unable to take it during the day. She would like to know if the Percocet can be called into the [facility]. She has an appointment with the thoracic brooke on Sunday. TERESE: 12/01/2022 Last refill: 12/01/2022 QTY: 12 Refills: 0 Patient's request for medication is as follows: Requested Prescriptions Pending Prescriptions Disp Refills oxyCODONE-acetaminophen (PERCOCET) 5-325 mg tablet 12 tablet 0 Sig: Take 1 tablet by mouth every 6 hours as needed for pain for up to 3 days. Please approve the above prescription(s) to electronically send to pharmacy. Levy Luu Ma documented in this encounter [facility] 12-06-2022 Miscellaneous Notes Patient seen. documented in this encounter [facility] 12-02-2022 Miscellaneous Notes See office visit. Patient calls and reports that she went to the ER today to get something for pain. Patient reports that ER would not give her anything and told her that she needs to contact PCP for this. Patient asking about the status of the request below. Patient scheduled appointment with provider to discuss pain medications today. Fabiana Polo RN Patient reports she is having left shoulder pain and swelling. Off and on for months. 07/05 today. Reports she fell on it over [place]. Reports when she saw pain management, the plan was to do PT. Has done PT twice, and does the exercises at home. Reports she scheduled an appt with the vascular surgeon (12-08), who did her surgery (removed the upper rib), and wants to see the surgeon before she tries pain management again. Reports the tingling in the hand and arm have stopped, but still having the nerve pain. Is using heat/ice, naproxen, lidocaine patch, tylenol or ibuprofen, and still having a lot of pain. Asking if there is anything pcp can prescribe for her pain. Reports she saw pcp on 11-22-22. Please advise patient. documented in this encounter [facility] 12-01-2022 Note HNO ID: [id number] Author: Yassine Radford MD Service: ? Author Type: Physician Type: Progress Notes Filed: 12/03/2022 12:05 PM Note Text: This note was created using Rolltechriter. Subjective Anne Chung is a 37 year old female here for chronic pain, not well controlled. She has resisted revisiting with pain management since she was simply told to do physical therapy. She scheduled an appointment instead with the surgeon who operated on her thoracic outlet. She was here again for another opioid prescription. She went to the ER today, and no work up was done and no prescriptions were given since she has been there for the same issue in the past. I reviewed that she was no longer filling gabapentin, and she was not on any current NSAID. I offered to refer her to a different ski edge painter in town. Review of Systems Constitutional: Negative. Respiratory: Negative. Musculoskeletal: Negative for neck pain. Neurological: Negative for weakness and numbness. ACTIVE PROBLEM LIST Asthma Esophageal Reflux Tobacco Use Disorder Thoracic Outlet Syndrome Anxiety With Depression Overactive Bladder Current Outpatient Medications Medication Sig DULoxetine (CYMBALTA) 60 mg capsule Take 1 capsule by mouth once daily. LORazepam (ATIVAN) 0.5 mg Take 1 tablet by mouth at bedtime as needed (anxiety) for up to 30 days. lidocaine (LIDODERM) 5 % Apply 1 Patch as directed every 24 hours. to affected area. Remove patch after 12 hours. ondansetron orally disintegrating (ZOFRAN ODT) 4 mg disintegrating tablet Take 1 tablet by mouth every 6 hours as needed for nausea/vomiting. cyclobenzaprine (FLEXERIL) 10 mg tablet Take 1 tablet by mouth at bedtime as needed for muscle spasm or pain. oxybutynin ER (DITROPAN XL) 10 mg 24 hr tablet Take 1 tablet by mouth once daily. pantoprazole DR (PROTONIX) 40 mg tablet Take 1 tablet by mouth daily before breakfast. Take on empty stomach, 1/2 hr before meal. albuterol HFA (VENTOLIN HFA) 90 mcg/actuation inhaler INHALE TWO PUFFS BY MOUTH EVERY 6 HOURS NEEDED FOR WHEEZING OR SHORTNESS OF BREATH EPINEPHrine (EPIPEN) 0.3 mg/0.3 mL auto-injector GIVE ONE DOSE INTO LATERAL THIGH FOR ALLERGIC REACTION. REPEAT DOSE IN 5-15 MINUTES IF NOT IMPROVING acetaminophen (TYLENOL) 500 mg tablet Take 2 tablets by mouth every 8 hours. albuterol (PROVENTIL) 2.5 mg /3 mL (0.083 %) nebulizer solution Use 3 mL via nebulizer three times daily as needed. OVER 5-15 MINUTES. FOR WHEEZING AND SHORTNESS OF BREATH. diclofenac, EC, (VOLTAREN) 75 mg EC tablet Take 1 tablet by mouth twice daily. For pain/inflammation. Take with food. pregabalin (LYRICA) 100 mg capsule Take 1 capsule by mouth twice daily for 90 days. oxyCODONE-acetaminophen (PERCOCET) 5-325 mg tablet Take 1 tablet by mouth every 6 hours as needed for pain for up to 3 days. No current facility-administered medications for this visit. Objective BP 112/72 Pulse 87 Temp 36.6 ?C (97.8 ?F) Resp 16 Wt 78 kg (172 lb) LMP 05/16/2015 SpO2 99% BMI 33.59 kg/m? Physical Exam Constitutional: General: She is not in acute distress. Appearance: She is not ill-appearing. Musculoskeletal: Left shoulder: Tenderness present. No swelling, deformity, effusion or crepitus. Decreased range of motion. Normal strength. Cervical back: Tenderness present. Neurological: Mental Status: She is alert. Assessment and Plan 1. Thoracic outlet syndrome - ICD9: 353.0, ICD10: G54.0 Chronic left shoulder pain. - DICLOFENAC SODIUM 75 MG TABLET,DELAYED RELEASE Discussed medication dosage, usage, goals of therapy, and side effects. - PREGABALIN 100 MG CAPSULE Discussed medication dosage, usage, goals of therapy, and side effects. - OXYCODONE-ACETAMINOPHEN 5 MG-325 MG TABLET I discussed concern about recurring opioid prescriptions. I encouraged adherence to non opioid measures and I encouraged again revisiting with pain management. She did not want to see pain management at the local hospital but may consider referral to Dr. Bar. Yassine Radford MD [facility] 12-01-2022 History of Presen t illness Narrative This note was created using Rolltechriter. Subjective Anne Chung is a 37 year old female here for chronic pain, not well controlled. She has resisted revisiting with pain management since she was simply told to do physical therapy. She scheduled an appointment instead with the surgeon who operated on her thoracic outlet. She was here again for another opioid prescription. She went to the ER today, and no work up was done and no prescriptions were given since she has been there for the same issue in the past. I reviewed that she was no longer filling gabapentin, and she was not on any current NSAID. I offered to refer her to a different ski edge painter in [facility]. Review of Systems Constitutional: Negative. Respiratory: Negative. Musculoskeletal: Negative for neck pain. Neurological: Negative for weakness and numbness. ACTIVE PROBLEM LIST Asthma Esophageal Reflux Tobacco Use Disorder Thoracic Outlet Syndrome Anxiety With Depression Overactive Bladder Current Outpatient Medications Medication Sig DULoxetine (CYMBALTA) 60 mg capsule Take 1 capsule by mouth once daily. LORazepam (ATIVAN) 0.5 mg Take 1 tablet by mouth at bedtime as needed (anxiety) for up to 30 days. lidocaine (LIDODERM) 5 % Apply 1 Patch as directed every 24 hours. to affected area. Remove patch after 12 hours. ondansetron orally disintegrating (ZOFRAN ODT) 4 mg disintegrating tablet Take 1 tablet by mouth every 6 hours as needed for nausea/vomiting. cyclobenzaprine (FLEXERIL) 10 mg tablet Take 1 tablet by mouth at bedtime as needed for muscle spasm or pain. oxybutynin ER (DITROPAN XL) 10 mg 24 hr tablet Take 1 tablet by mouth once daily. pantoprazole DR (PROTONIX) 40 mg tablet Take 1 tablet by mouth daily before breakfast. Take on empty stomach, 1/2 hr before meal. albuterol HFA (VENTOLIN HFA) 90 mcg/actuation inhaler INHALE TWO PUFFS BY MOUTH EVERY 6 HOURS NEEDED FOR WHEEZING OR SHORTNESS OF BREATH EPINEPHrine (EPIPEN) 0.3 mg/0.3 mL auto-injector GIVE ONE DOSE INTO LATERAL THIGH FOR ALLERGIC REACTION. REPEAT DOSE IN 5-15 MINUTES IF NOT IMPROVING acetaminophen (TYLENOL) 500 mg tablet Take 2 tablets by mouth every 8 hours. albuterol (PROVENTIL) 2.5 mg /3 mL (0.083 %) nebulizer solution Use 3 mL via nebulizer three times daily as needed. OVER 5-15 MINUTES. FOR WHEEZING AND SHORTNESS OF BREATH. diclofenac, EC, (VOLTAREN) 75 mg EC tablet Take 1 tablet by mouth twice daily. For pain/inflammation. Take with food. pregabalin (LYRICA) 100 mg capsule Take 1 capsule by mouth twice daily for 90 days. oxyCODONE-acetaminophen (PERCOCET) 5-325 mg tablet Take 1 tablet by mouth every 6 hours as needed for pain for up to 3 days. No current facility-administered medications for this visit. Objective BP 112/72 Pulse 87 Temp 36.6 C (97.8 F) Resp 16 Wt 78 kg (172 lb) LMP 05/16/2015 SpO2 99% BMI 33.59 kg/m Physical Exam Constitutional: General: She is not in acute distress. Appearance: She is not ill-appearing. Musculoskeletal: Left shoulder: Tenderness present. No swelling, deformity, effusion or crepitus. Decreased range of motion. Normal strength. Cervical back: Tenderness present. Neurological: Mental Status: She is alert. Assessment and Plan 1. Thoracic outlet syndrome - ICD9: 353.0, ICD10: G54.0 Chronic left shoulder pain. - DICLOFENAC SODIUM 75 MG TABLET,DELAYED RELEASE Discussed medication dosage, usage, goals of therapy, and side effects. - PREGABALIN 100 MG CAPSULE Discussed medication dosage, usage, goals of therapy, and side effects. - OXYCODONE-ACETAMINOPHEN 5 MG-325 MG TABLET I discussed concern about recurring opioid prescriptions. I encouraged adherence to non opioid measures and I encouraged again revisiting with pain management. She did not want to see pain management at the local hospital but may consider referral to Dr. Bar. Yassine Radford MD documented in this encounter [facility] 11-09-2022 History of Presen t illness Narrative [facility] Anne Chung's identity was confirmed. The limitations of telemedicine were reviewed, and verbal consent was obtained for this encounter. This encounter is not related to previous similar encounter within the past 7 days. No face to face visit is planned in the next day in connection to this encounter. This telemedicine encounter was accomplished via ZOOM. Patient presents with: Refill Request Anne Chung was here for lorazepam refill. She missed her follow up earlier this week. Use was infrequent and appropriate. Last refill was in April. She was on duloxetine for maintenance and she had chronic pain. She anticipated more stress due to the holidays, job issues, and significant other's health issues. ACTIVE PROBLEM LIST Asthma Esophageal Reflux Tobacco Use Disorder Thoracic Outlet Syndrome Anxiety With Depression Overactive Bladder Current Outpatient Medications Medication Sig naproxen (NAPROSYN) 500 mg tablet Take 500 mg by mouth twice daily. lidocaine (LIDODERM) 5 % Apply 1 Patch as directed every 24 hours. to affected area. Remove patch after 12 hours. ondansetron orally disintegrating (ZOFRAN ODT) 4 mg disintegrating tablet Take 1 tablet by mouth every 6 hours as needed for nausea/vomiting. gabapentin (NEURONTIN) 400 mg capsule Take 2 capsules by mouth three times daily for 180 days. cyclobenzaprine (FLEXERIL) 10 mg tablet Take 1 tablet by mouth at bedtime as needed for muscle spasm or pain. DULoxetine (CYMBALTA) 30 mg capsule Take 1 capsule by mouth once daily. oxybutynin ER (DITROPAN XL) 10 mg 24 hr tablet Take 1 tablet by mouth once daily. pantoprazole DR (PROTONIX) 40 mg tablet Take 1 tablet by mouth daily before breakfast. Take on empty stomach, 1/2 hr before meal. albuterol HFA (VENTOLIN HFA) 90 mcg/actuation inhaler INHALE TWO PUFFS BY MOUTH EVERY 6 HOURS NEEDED FOR WHEEZING OR SHORTNESS OF BREATH EPINEPHrine (EPIPEN) 0.3 mg/0.3 mL auto-injector GIVE ONE DOSE INTO LATERAL THIGH FOR ALLERGIC REACTION. REPEAT DOSE IN 5-15 MINUTES IF NOT IMPROVING acetaminophen (TYLENOL) 500 mg tablet Take 2 tablets by mouth every 8 hours. albuterol (PROVENTIL) 2.5 mg /3 mL (0.083 %) nebulizer solution Use 3 mL via nebulizer three times daily as needed. OVER 5-15 MINUTES. FOR WHEEZING AND SHORTNESS OF BREATH. No current facility-administered medications for this visit. PE: Alert, not ill. Mood, speech, behavior, thoughts within normal limits. No respiratory distress or cough. ASSESSMENT/PLAN: 1. Anxiety with depression - ICD9: 300.4, ICD10: F41.8 (primary diagnosis) Shared medical decision making was done. We agreed to try a higher dose of duloxetine. - DULOXETINE 60 MG CAPSULE,DELAYED RELEASE - LORAZEPAM 0.5 MG TABLET refilled for infrequent use. 2. Thoracic outlet syndrome - ICD9: 353.0, ICD10: G54.0 See above. - DULOXETINE 60 MG CAPSULE,DELAYED RELEASE Patient indicated understanding and willingness to follow recommendations. Yassine Radford MD S documented in this encounter [facility] 11-03-2022 Instructions German Pires APRN.CNS - 11/03/2022 10:57 AM EST Keep area of concern clean and dry. Wash with soap and water daily. Avoid clothing over the area of concern. Follow-up with your ASSESSMENT MANAGER if not feeling improved. documented in this encounter [facility] 11-03-2022 History of Presen t illness Narrative SUBJECTIVE: HEPATITIS B(1 of 3 - 3-dose series) Never done COVID-19 VACCINE(1) Never done DTAP,TDAP,TD(2 - Td or Tdap) due on 09/24/2022 HPI Anne Chung is a 36 year old female. PMH significant for ACTIVE PROBLEM LIST Asthma Esophageal Reflux Tobacco Use Disorder Thoracic Outlet Syndrome Anxiety With Depression Overactive Bladder PCP: Yassine Radford MD Presents today regarding a lump. She reports being seen by her ASSESSMENT MANAGER Dr. Cunningham for folliculitis which she reports was incised and drained about 1 week ago. Treated with Bactrim and Oxy IR. Presents today stating she cannot get a hold of Dr. Cunningham. Notes she had 2 lesions 1 healed and 1 remains and is painful. Review of Systems Constitutional: Negative. Objective BP 118/60 Pulse 85 Temp 36.6 C (97.8 F) Wt 75.8 kg (167 lb) LMP 05/16/2015 SpO2 100% BMI 32.61 kg/m Physical Exam Vitals and nursing note reviewed. Constitutional: Appearance: Normal appearance. HENT: Head: Normocephalic and atraumatic. Eyes: Conjunctiva/sclera: Conjunctivae normal. Cardiovascular: Rate and Rhythm: Normal rate. Pulmonary: Effort: Pulmonary effort is normal. Skin: General: Skin is warm and dry. Comments: Erythematous lesion approximately 1/4 inch in diameter tender to palpation, no surrounding erythema or induration or warmth. No drainage. Neurological: Mental Status: She is alert. ALLERGIES Allergen Reactions Bees Anaphylaxis Pt had swelling, was given epipen at ER. Morphine Rash Left arm turned red when given IV morphine Penicillins Other: See Comments Patient refuses due to family allergy to PCN. Valium [Diazepam] Hives Hives on chest only. Tessalon [Benzonata* Rash Medication lidocaine (LIDODERM) 5 % Apply 1 Patch as directed every 24 hours. to affected area. Remove patch after 12 hours. ondansetron orally disintegrating (ZOFRAN ODT) 4 mg disintegrating tablet Take 1 tablet by mouth every 6 hours as needed for nausea/vomiting. meloxicam (MOBIC) 7.5 mg tablet Take 1 tablet by mouth once daily as needed for pain (with food). gabapentin (NEURONTIN) 400 mg capsule Take 2 capsules by mouth three times daily for 180 days. cyclobenzaprine (FLEXERIL) 10 mg tablet Take 1 tablet by mouth at bedtime as needed for muscle spasm or pain. DULoxetine (CYMBALTA) 30 mg capsule Take 1 capsule by mouth once daily. oxybutynin ER (DITROPAN XL) 10 mg 24 hr tablet Take 1 tablet by mouth once daily. pantoprazole DR (PROTONIX) 40 mg tablet Take 1 tablet by mouth daily before breakfast. Take on empty stomach, 1/2 hr before meal. albuterol HFA (VENTOLIN HFA) 90 mcg/actuation inhaler INHALE TWO PUFFS BY MOUTH EVERY 6 HOURS NEEDED FOR WHEEZING OR SHORTNESS OF BREATH EPINEPHrine (EPIPEN) 0.3 mg/0.3 mL auto-injector GIVE ONE DOSE INTO LATERAL THIGH FOR ALLERGIC REACTION. REPEAT DOSE IN 5-15 MINUTES IF NOT IMPROVING acetaminophen (TYLENOL) 500 mg tablet Take 2 tablets by mouth every 8 hours. albuterol (PROVENTIL) 2.5 mg /3 mL (0.083 %) nebulizer solution Use 3 mL via nebulizer three times daily as needed. OVER 5-15 MINUTES. FOR WHEEZING AND SHORTNESS OF BREATH. naproxen (NAPROSYN) 500 mg tablet Take 500 mg by mouth twice daily. sulfamethoxazole-trimethoprim (BACTRIM DS,SEPTRA DS) 800-160 mg per tablet TAKE 1 TABLET BY MOUTH EVERY 12 HOURS FOR 5 DAYS PAST MEDICAL HISTORY Diagnosis Date Abnormal mammogram 02/16/2017 ASCUS (atypical squamous cells of undetermined significance) on Pap smear 09/24/2013 ASTHMA UNSPECIFIED 07/26/2006 BIPOLAR DISORDER NOS 07/26/2006 COVID 11/27/2021 Esophageal reflux 08/23/2006 Hidradenitis 01/15/2007 Hot flashes Insomnia Irritable bowel syndrome 03/15/2012 Mastodynia 08/23/2006 Mixed stress and urge urinary incontinence 12/13/2019 Nausea 01/02/2011 Raynaud's phenomenon without gangrene 02/01/2017 Thoracic outlet syndrome 06/14/2020 Tobacco use disorder 12/25/2006 Vaginal dryness Social History Tobacco Use Smoking status: Every Day Packs/day: 1.00 Years: 29.00 Pack years: 29.00 Types: Cigarettes Start date: 10/26/1992 Smokeless tobacco: Never Tobacco comments: started age 17 Vaping Use Vaping Use: Never used Substance Use Topics Alcohol use: No Drug use: Not Currently Types: Marijuana ASSESSMENT/PLAN: 1. Folliculitis - ICD9: 704.8, ICD10: L73.9 (primary diagnosis) Will extend the course of Bactrim. Pain medication x3 days Further follow-up with ASSESSMENT MANAGER and PCP advised. ER for any severe or concerning symptoms - OXYCODONE-ACETAMINOPHEN 5 MG-325 MG TABLET - SULFAMETHOXAZOLE 800 MG-TRIMETHOPRIM 160 MG TABLET German [place]ires APRN.FISHER EEL SPEAR Medical Decision Making: Problems: Low: Acute, uncomplicated illness or injury Risk: Moderate: Drug management Medical Decision Making Level: 3 - Low documented in this encounter [facility] 10-23-2022 Miscellaneous Notes Last office visit: 10/05/22 Next appointment scheduled: 11/07/22 Patient phones requesting refills as follows: Requested Prescriptions Pending Prescriptions Disp Refills lidocaine (LIDODERM) 5 % 10 Patch 3 Sig: Apply 1 Patch as directed every 24 hours. to affected area. Remove patch after 12 hours. Please review and advise. Shelbie Bass LPN documented in this encounter [facility] 10-05-2022 Miscellaneous Notes Patient's request for medication is as follows Requested Prescriptions Signed Prescriptions Disp Refills oxyCODONE-acetaminophen (PERCOCET) 5-325 mg tablet 12 tablet 0 Sig: Take 1 tablet by mouth every 6 hours as needed for pain for up to 3 days. Authorizing Provider: YASSINE RADFORD Order entered - please phone pharmacy and notify patient. Yassine Radford MD Pt called in checking on pain meds. Called and talked with providers nurse and she will ask him about medication. Hipolito from the [facility] reports they are out of this medication right now. States Pt is asking if provider could send it to [facility] in [place]. Patient has been identified by name and date of : Yes Pharmacy phones for refill(s): Requested Prescriptions Pending Prescriptions Disp Refills oxyCODONE-acetaminophen (PERCOCET) 5-325 mg tablet 12 tablet 0 Sig: Take 1 tablet by mouth every 6 hours as needed for pain for up to 3 days. Date of last office visit in primary care: 10/05/22 Future visit: 11/07/22 Last 2 Encounter Wt Readings: Date: Wt: 10/05/2022 81.2 kg (179 lb) 09/26/2022 76.7 kg (169 lb) Previous labs/tests for medication: Blood Pressure: BUN (mg/dL) Date Value 01/17/2022 10 Sodium (mmol/L) Date Value 01/17/2022 138 Last 1 Encounter BP Readings: Date: BP: 10/05/2022 120/70 Liver Function: ALT (U/L) Date Value 01/17/2022 11 AST (U/L) Date Value 01/17/2022 16 Please advise. Thank you. Aliyah Trimble RN documented in this encounter [facility] 10-05-2022 Instructions Yassine Radford MD - 10/05/2022 12:24 PM EST SEE GYNECOLOGY FOR EVALUATION AND TREATMENT. PERCOCET IS REFILLED THIS LAST TIME. documented in this encounter [facility] 10-05-2022 History of Presen t illness Narrative This note was created using NoteWriter. Subjective Anne Chung is a 36 year old female. She continued with lower abdominal and right lower quadrant pain, moderately severe for almost 2 weeks now, aggravated by movement, and associated with nausea. Evaluation in the ER 09/26 showed no acute findings. A cyst was noted on the right ovary, and it was suggested she see her network analyst about this. She had an appointment with Dr. Cunningham next week, and she was hoping he will surgically remove the remaining right ovary and cyst, even if she has menopause Review of Systems Constitutional: Negative for chills and fever. Respiratory: Negative. Gastrointestinal: Positive for abdominal pain and nausea. Negative for diarrhea. Genitourinary: Negative for difficulty urinating and dysuria. ACTIVE PROBLEM LIST Asthma Esophageal Reflux Tobacco Use Disorder Thoracic Outlet Syndrome Anxiety With Depression Overactive Bladder Objective BP 120/70 (BP Site: Left Arm, BP Position: Sitting, BP Cuff Size: Large Adult) Pulse 72 Temp 36.5 C (97.7 F) (Temporal) Resp 18 Wt 81.2 kg (179 lb) LMP 05/16/2015 BMI 34.96 kg/m Physical Exam Constitutional: General: She is not in acute distress. Cardiovascular: Rate and Rhythm: Normal rate and regular rhythm. Pulmonary: Breath sounds: Normal breath sounds. Abdominal: General: There is no distension. Palpations: Abdomen is soft. Tenderness: There is abdominal tenderness in the right lower quadrant and suprapubic area. There is no guarding or rebound. Neurological: Mental Status: She is alert. ER report reviewed. Assessment and Plan 1. RLQ abdominal pain - ICD9: 789.03, ICD10: R10.31 (primary diagnosis) - OXYCODONE-ACETAMINOPHEN 5 MG-325 MG TABLET 2. Cyst of ovary, right - ICD9: 620.2, ICD10: N83.201 - OXYCODONE-ACETAMINOPHEN 5 MG-325 MG TABLET Indications for acute pain treatment with opioid is less clear. There were no acute findings in the tests done in the ED. It is not clear if her network analyst will recommend surgery or if the pain is coming from this ovarian cyst. Shared medical decision making was done. Opioid has risks, and we agreed I am refilling this absolutely for the last time. Yassine Radford MD documented in this encounter [facility] 10-05-2022 Miscellaneous Notes Patient returned call and given update below. Castillo Posey RN Left a message for pt to call the office and ask to speak to a nurse. Birgit Velazquez LPN See Dr. Radford's response in 10/02 phone encounter: Patient's request for medication is as follows Requested Prescriptions Signed Prescriptions Disp Refills oxyCODONE-acetaminophen (PERCOCET) 5-325 mg tablet 12 tablet 0 Sig: Take 1 tablet by mouth every 6 hours as needed for pain for up to 3 days. Authorizing Provider: YASSINE RADFORD ER report reviewed. Percocet refilled for this one time only in addition to ER prescription. Please inform the patient. Beatrice Camargo APRN.YORDY Patient has been identified by name and date of : Yes Patient phones for refill(s): Requested Prescriptions Pending Prescriptions Disp Refills oxyCODONE-acetaminophen (PERCOCET) 5-325 mg tablet 12 tablet 0 Sig: Take 1 tablet by mouth every 6 hours as needed for pain for up to 3 days. Date of last office visit in primary care: 09/26/2022 6 month follow-up: 11/07/2022 Last 2 Encounter Wt Readings: Date: Wt: 09/26/2022 76.7 kg (169 lb) 08/14/2022 77.6 kg (171 lb) Previous labs/tests for medication: Not applicable Please advise. Thank you. Leticia Persaud LPN documented in this encounter [facility] 10-04-2022 Miscellaneous Notes Patient has been identified by name and date of : Yes Patient phones for refill(s): Requested Prescriptions Pending Prescriptions Disp Refills ondansetron orally disintegrating (ZOFRAN ODT) 4 mg disintegrating tablet 20 tablet 0 Sig: Take 1 tablet by mouth every 6 hours as needed for nausea/vomiting. Date of last office visit in primary care: 09/26/2022 6 month follow-up: 11/07/2022 Last 2 Encounter Wt Readings: Date: Wt: 09/26/2022 76.7 kg (169 lb) 08/14/2022 77.6 kg (171 lb) Previous labs/tests for medication: Not applicable Please advise. Thank you. Leticia Persaud LPN documented in this encounter [facility] 09-26-2022 Instructions Yassine Radford MD - 09/26/2022 11:04 AM EDT I recommend ER evaluation. documented in this encounter [facility] 09-26-2022 History of Presen t illness Narrative This note was created using Rolltechriter. Subjective Anne Chung is a 36 year old female. She was recently in the ED for bleeding hemorrhoids, and saw surgery for follow up. Hemorrhoids resolved. 3 days ago, she developed progressively severe lower abdominal pain midline and and somewhat to the left, 8/10 in severity, aggravated by movement, walking, and laying down. Other symptoms were nausea. Review of Systems Constitutional: Positive for appetite change. Negative for chills and fever. Respiratory: Negative. Gastrointestinal: Positive for abdominal pain and nausea. Negative for blood in stool, rectal pain and vomiting. Genitourinary: Negative for difficulty urinating, dysuria, hematuria, vaginal bleeding and vaginal discharge. ACTIVE PROBLEM LIST Asthma Esophageal Reflux Tobacco Use Disorder Thoracic Outlet Syndrome Anxiety With Depression Overactive Bladder PAST SURGICAL HISTORY Procedure Laterality Date ANESTHESIA PARTIAL RIB RESECTION NOS Left 09/26/2021 1st supraclavicular rib, neurolysis BREAST BIOPSY NEEDLE LEFT Left 03/18/2018 benign x 3 BX BREAST W/DEVICE 1ST LESION ULTRASOUND GUID Left 03/02/2017 COLONOSCOPY FLX DX W/COLLJ SPEC WHEN PFRMD 06/11/2012 Colonoscopy COLONOSCOPY FLX DX W/COLLJ SPEC WHEN PFRMD 11/08/2016 Colonoscopy mac EGD TRANSORAL BIOPSY SINGLE/MULTIPLE 10/26/2009 ESOPHAGOGASTRODUODENOSCOPY TRANSORAL DIAGNOSTIC 07/21/2011 EGD ESOPHAGOGASTRODUODENOSCOPY TRANSORAL DIAGNOSTIC 11/08/2016 EGD mac EXT HYSTERECTOMY,W/PARTIAL VAGINECTO 04/2015 Non-cancer. LAPAROSCOPIC SALPING/OOPHORECTOMY Left 10/23/2018 lysis of adhesions, Dr. Romelia Cunningham LAPS ABD PRTM&OMENTUM DX W/WO SPEC BR/WA SPX 2013 Laparoscopy twice PAST SURGICAL HISTORY OF 2012 dental extraction Current Outpatient Medications Medication Sig meloxicam (MOBIC) 7.5 mg tablet Take 1 tablet by mouth once daily as needed for pain (with food). gabapentin (NEURONTIN) 400 mg capsule Take 2 capsules by mouth three times daily for 180 days. cyclobenzaprine (FLEXERIL) 10 mg tablet Take 1 tablet by mouth at bedtime as needed for muscle spasm or pain. DULoxetine (CYMBALTA) 30 mg capsule Take 1 capsule by mouth once daily. oxybutynin ER (DITROPAN XL) 10 mg 24 hr tablet Take 1 tablet by mouth once daily. lidocaine (LIDODERM) 5 % Apply 1 Patch as directed every 24 hours. to affected area. Remove patch after [address] (PROTONIX) 40 mg tablet Take 1 tablet by mouth daily before breakfast. Take on empty stomach, 1/2 hr before meal. albuterol HFA (VENTOLIN HFA) 90 mcg/actuation inhaler INHALE TWO PUFFS BY MOUTH EVERY 6 HOURS NEEDED FOR WHEEZING OR SHORTNESS OF BREATH EPINEPHrine (EPIPEN) 0.3 mg/0.3 mL auto-injector GIVE ONE DOSE INTO LATERAL THIGH FOR ALLERGIC REACTION. REPEAT DOSE IN 5-15 MINUTES IF NOT IMPROVING ondansetron orally disintegrating (ZOFRAN ODT) 4 mg disintegrating tablet Take 1 tablet by mouth every 6 hours as needed for nausea/vomiting. acetaminophen (TYLENOL) 500 mg tablet Take 2 tablets by mouth every 8 hours. albuterol (PROVENTIL) 2.5 mg /3 mL (0.083 %) nebulizer solution Use 3 mL via nebulizer three times daily as needed. OVER 5-15 MINUTES. FOR WHEEZING AND SHORTNESS OF BREATH. No current facility-administered medications for this visit. Objective BP 124/68 (BP Site: Left Arm, BP Position: Sitting, BP Cuff Size: Large Adult) Pulse 84 Temp 36.2 C (97.2 F) (Temporal) Resp 20 Wt 76.7 kg (169 lb) LMP 05/16/2015 BMI 33.01 kg/m Physical Exam Constitutional: General: She is in acute distress. Appearance: She is diaphoretic. She is not toxic-appearing. Eyes: Conjunctiva/sclera: Conjunctivae normal. Pulmonary: Effort: Pulmonary effort is normal. Abdominal: General: Bowel sounds are decreased. There is no distension. Palpations: Abdomen is soft. There is no mass. Tenderness: There is abdominal tenderness in the right lower quadrant, suprapubic area and left lower quadrant. There is rebound. There is no guarding. Neurological: Mental Status: She is alert. Psychiatric: Mood and Affect: Mood is anxious. Speech: Speech normal. Comments: tearful Assessment and Plan 1. Lower abdominal pain - ICD9: 789.09, ICD10: R10.30 Etiology unclear Differential Diagnosis includes Diverticulitis, Appendicitis, Ovarian cyst, and Cystitis - I recommend ER evaluation. I spoke to Dr. Gillis. Patient indicated understanding and willingness to follow recommendations. Yassine Radford MD documented in this encounter [facility] 08-31-2022 Note HNO ID: [id number] Author: Minoo Ortiz MA Service: ? Author Type: Owner Oral Surgeon Type: Progress Notes Filed: 08/31/2022 12:03 PM Note Text: Review of Systems Constitutional: Negative for activity change, chills, fever and unexpected weight change. Gastrointestinal: Negative for bowel retention or incontinence Genitourinary: Positive for difficulty urinating (Currently being treated). Negative for bladder retention or incontinence Musculoskeletal: Positive for arthralgias, joint swelling, myalgias, neck pain and neck stiffness. Negative for back pain and gait problem. Neurological: Positive for weakness and numbness. Negative for headaches. Psychiatric/Behavioral: Positive for sleep disturbance. Negative for dysphoric mood and suicidal ideas. The patient is not nervous/anxious. [facility] 08-31-2022 Note HNO ID: [id number] Author: Panchito Lopez APRN.YORDY Service: ? Author Type: Nurse Practitioner Type: Progress Notes Filed: 08/31/2022 12:03 PM Note Text: [facility] Today's Date: 08/31/2022 Last Visit: N/A Name: Anne Chung : 1985 Purpose: New Patient Evaluation Chief complaint: LEFT shoulder Pain Interval History: N/A Initial HPI: (Obtained on 08/31/2022) Anne Chung is a 36 year old year-old female; who presents having been referred by Self, for evaluation and management of the above-mentioned chief complaint. This has been present for the past ~-2-3 years ago. The onset of symptoms was gradual onset and was without associated trauma. Reports started out as numbness in her LEFT hand and fingers and pain got progressively worse. Reports she was eventually diagnosed with Thoracic Outlet Syndrome with surgical intervention with Vascular on 09/26/21. Reports she temporarily got better, but her symptoms returned after returning to work. She has been to several rounds of PT in the past with no relief. Reports she also has a lot of home stressors due to her spouse with chronic pancreatitis and frequent hospitalizations and surgeries. Treatments to date include the following: Medications (See below), Injections (See below), Surgery (See below), Modalities (eg. Heat, Ice), Physical Therapy , and Massage. Her most recent PT session was 10/2021. 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 Current Status: INTAKE PAIN ASSESSMENT 07/28/2022 08/14/2022 Are you having pain associated with your visit today? Yes, Provider notified Yes, Provider notified Pain Scales Verbal (Numeric Rating or Visual Analog Scale) Verbal (Numeric Rating or Visual Analog Scale) Pain Level 8 8 Pain Location - - Description Sharp Sharp;Burning Duration Amount of Time 2 10 Duration Units - Months Frequency Continuous Continuous Intervention/Comfort measure - Medication Comments - - Pain Assessment - - Current Pain Medications: Opioids: NSAIDS: Naprosyn Anti-depressants: Cymbalta 30mg daily Anti-convulsants: Gabapentin 800mg TID Muscle relaxants: Flexeril 10 mg daily Others: OTC Tylenol, lidocaine patches Analgesia: partially adequate Current Anti-Coagulant Use: No PAST Pain Medications (for the chief complaint(s)): Opioids: Percocet (Oxycodone) NSAIDS: Celebrex (Celecoxib) Allergies: ALLERGIES Allergen Reactions Bees Anaphylaxis Pt had swelling, was given epipen at ER. Morphine Rash Left arm turned red when given IV morphine Penicillins Other: See Comments Patient refuses due to family allergy to PCN. Valium [Diazepam] Hives Hives on chest only. Tessalon [Benzonata* Rash Data Reviewed: Reviewed personally on today's date 08/31/2022 Relevant Imaging: MRI Spine Report MRI THORACIC SPINE WO IVCON Collected: 02/20/2018 9:38 AM (Final result) Narrative: * * *Final Report* * * DATE OF EXAM: Feb 20 2018 9:38AM [id number] - MRI THORACIC SPINE WO IVCON [...] tissues: Within normal limits. There is no significan (more content not included)... [facility] 08-31-2022 Instructions Panchito Lopez APRN.YORDY - 08/31/2022 9:31 AM EDT Activity as tolerated Use Ice and/or heat as tolerated as needed documented in this encounter [facility] 08-31-2022 History of Presen t illness Narrative Review of Systems Constitutional: Negative for activity change, chills, fever and unexpected weight change. Gastrointestinal: Negative for bowel retention or incontinence Genitourinary: Positive for difficulty urinating (Currently being treated). Negative for bladder retention or incontinence Musculoskeletal: Positive for arthralgias, joint swelling, myalgias, neck pain and neck stiffness. Negative for back pain and gait problem. Neurological: Positive for weakness and numbness. Negative for headaches. Psychiatric/Behavioral: Positive for sleep disturbance. Negative for dysphoric mood and suicidal ideas. The patient is not nervous/anxious. [facility] Today's Date: 08/31/2022 Last Visit: N/A Name: Anne Chung : 1985 Purpose: New Patient Evaluation Chief complaint: LEFT shoulder Pain Interval History: N/A Initial HPI: (Obtained on 08/31/2022) Anne Chung is a 36 year old year-old female; who presents having been referred by Self, for evaluation and management of the above-mentioned chief complaint. This has been present for the past ~-2-3 years ago. The onset of symptoms was gradual onset and was without associated trauma. Reports started out as numbness in her LEFT hand and fingers and pain got progressively worse. Reports she was eventually diagnosed with Thoracic Outlet Syndrome with surgical intervention with Vascular on 09/26/21. Reports she temporarily got better, but her symptoms returned after returning to work. She has been to several rounds of PT in the past with no relief. Reports she also has a lot of home stressors due to her spouse with chronic pancreatitis and frequent hospitalizations and surgeries. Treatments to date include the following: Medications (See below), Injections (See below), Surgery (See below), Modalities (eg. Heat, Ice), Physical Therapy , and Massage. Her most recent PT session was 10/2021. 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 Current Status: INTAKE PAIN ASSESSMENT 07/28/2022 08/14/2022 Are you having pain associated with your visit today? Yes, Provider notified Yes, Provider notified Pain Scales Verbal (Numeric Rating or Visual Analog Scale) Verbal (Numeric Rating or Visual Analog Scale) Pain Level 8 8 Pain Location - - Description Sharp Sharp;Burning Duration Amount of Time 2 10 Duration Units - Months Frequency Continuous Continuous Intervention/Comfort measure - Medication Comments - - Pain Assessment - - Current Pain Medications: Opioids: NSAIDS: Naprosyn Anti-depressants: Cymbalta 30mg daily Anti-convulsants: Gabapentin 800mg TID Muscle relaxants: Flexeril 10 mg daily Others: OTC Tylenol, lidocaine patches Analgesia: partially adequate Current Anti-Coagulant Use: No PAST Pain Medications (for the chief complaint(s)): Opioids: Percocet (Oxycodone) NSAIDS: Celebrex (Celecoxib) Allergies: ALLERGIES Allergen Reactions Bees Anaphylaxis Pt had swelling, was given epipen at ER. Morphine Rash Left arm turned red when given IV morphine Penicillins Other: See Comments Patient refuses due to family allergy to PCN. Valium [Diazepam] Hives Hives on chest only. Tessalon [Benzonata* Rash Data Reviewed: Reviewed personally on today's date 08/31/2022 Relevant Imaging: MRI Spine Report MRI THORACIC SPINE WO IVCON Collected: 02/20/2018 9:38 AM (Final result) Narrative: * * *Final Report* * * DATE [...] significant thoracic spinal canal or neuroforaminal stenosis. Impression: IMPRESSION: No abnormality identified to explain the reported pain. There is no significant spinal canal or neural foraminal stenosis in the cervical and thoracic spine. Building Specialist: [facility] Transcribe Date/Time: Feb 20 2018 9:51A Dictated by : LUISITO SALGADO MD This examination was interpreted and the report reviewed and electronically signed by: LUISITO SALGADO MD on Feb 20 2018 9:57AM EST Recent labs: Creatinine Date Value Ref Range Status 01/17/2022 0.72 0.58 - 0.96 mg/dL Final Compliance: PDMP website checked and validated. All prescriptions have been APPROPRIATELY filled. No suspicious activity was identified. 08/31/2022 by Panchito Lopez APRN.RETAIL CLERK Risk Assessment: BLACK-7: BLACK - 7 SCORES 08/31/2022 BLACK-7 Score 4 (0-4) minimal anxiety, (5-9) mild anxiety, (10-14) moderate anxiety, (15-21) severe anxiety PHQ-9: PHQ-9 05/23/2022 08/31/2022 Score 14 1 (0-4) minimal depression, (5-9) mild depression, (10-14) moderate depression, (15-19) moderately severe depression, (20-27) severe depression Opioid Risk Tool: Family History of Substance Abuse: Yes Illegal Drugs: 3 - Male Prescription Drugs: 4 - Yes Personal History of Substance Abuse: 0 - No Age between 16-45: 1 - Yes History of Pre-Adolescence Sexual Abuse: 0 - No Psychological Disease: Yes ADD/ADHD/OCD/Bipolar/Schizophren ia: No Depression: 1 - Yes Risk Total: 9 Total Score Risk Category: High Risk > 8 (0-3, low risk or no risk; 4-7, moderate risk, 8+, high risk) Current Medications, Past Medical History, Past Surgical History, Family History, Social History and Review of Systems: On today's date, 08/31/2022, noted above, I have confirmed and edited as necessary, the PFSH and ROS obtained by others. Physical Exam: 08/31/22 0909 Pulse: 85 Resp: 16 SpO2: 98% Constitutional:obese HEENT: Normal Cephalic, Atraumatic, Non-icteric sclera Eyes: Conjunctiva clear. No discharge from eyes Cardiovascular: Appears well perfused Lymphatic: No visible regional lymphadenopathy Skin: No visible rashes or ecchymosis Psychiatric: Full affect, Alert, Pleasant CERVICAL MUSCULOSKELETAL/NEURO EXAM: Inspection: - Symmetric without atrophy Posture: Normal intact spinal curves Gait: Normal Cervical Range of Motion: - Flexion: Full without pain - Extension: Full without pain - Rotation: Full without pain - Lateral Rotation: Full without pain Palpation: LEFT RIGHT Cervical Paraspinal Tenderness Negative Negative Levator Scapulae Negative Negative Trapezius Negative Negative Rhomboids Negative Negative (Other) Negative Negative Paraspinal spasm: None Greater Occipital Nerves: no tenderness in overlying tissue Cervical Facet Loading Negative Negative Strength: LEFT RIGHT Deltoid (C5) 5 5 Biceps (C6) 5 5 Triceps (C7) 5 5 Wrist Extensors (C8) 5 5 Abduct. Pollis Brevis (T1) 5 5 Muscle Tone: - Normal and symmetric Spurling: - Negative to the Bilateral side(s) Sensation: - Grossly intact to light touch in the C5-T1 Bilateral upper limb dermatomes. Reflexes: LEFT RIGHT Bicep (C5) Normal 2+ Normal 2+ Brachioradialis (C6) Normal 2+ Normal 2+ Triceps (C7) Normal 2+ Normal 2+ Maldonado absent absent LEFT Shoulder: Inspection: No edema, effusion, erythema, warmth No scapular winging No muscle atrophies Palpation: No tenderness to palpation at: Upper Trapezius, Middle Trapezius, Cervical paraspinals, Thoracic paraspinals No tenderness to palpation at: Bicipital groove, Acromioclavicular (AC) joint, Supraspinatus insertion Active Range of Motion: Normal Scapulothoracic rhythm. Full and non-painful range of motion for flexion, extension, abduction, internal and external rotation Passive Range of Motion: Full and non-painful range for flexion, extension, abduction, internal and external rotation Special Tests: Non-painful (negative) Jean Smalls's Diagnoses: (G54.0) TOS (thoracic outlet syndrome) (primary encounter diagnosis) (M79.18) Myofascial pain syndrome (M25.512, G89.29) Chronic left shoulder pain (M54.2) Neck pain Impression & Plan: 36 year old female with significant past medical history for asthma, tobacco disorder, GERD, OAB, anxiety, depression hx of thoracic outlet syndrome, who presents with complaint(s) of LEFT shoulder pain, neck pain with radiating pain into her LEFT arm. Reports after her surgery for TOS, the hand numbness improved. No recent therapy. Her PCP ordered shoulder and cervical imaging, but patient was unaware and did not have completed. Cervical MRI from 2018 reviewed and was unremarkable for any HNP or stenosis. Medications: Refill: Requested Prescriptions Signed Prescriptions Disp Refills meloxicam (MOBIC) 7.5 mg tablet 30 tablet 2 Sig: Take 1 tablet by mouth once daily as needed for pain (with food). Stop the naprosyn BLACK-7/PHQ-2, and ORT: 08/31/2022 Completed and reviewed, HIGH risk Functional Gnosticism: Physical Therapy (Land-based) Additional Studies: XR Cervical , LEFT shoulder and thoracic spine Referrals: None Additional: NSAIDS use(s), side effects and risks of long-term side effects were reviewed today. Recommend use of OTC famotidine or PPI if not already taking while using any NSAIDS. Patient with verbalized understanding. Cervical and/or shoulder MRI if fails above treatment. Depending on response to the above plan, consider: Follow-up: 6-8 weeks Attribution: In addition to reviewing the information noted above, some elements copied from my most recent clinical note(s), including the physical exam (completed in entirety today), and the impression and plan sections, have been updated where appropriate. All reflect current medical decision making from today's date. Panchito Lopez APRN.[facility] documented in this encounter [facility] 07-28-2022 History of Presen t illness Narrative This note was created using [employer]. Subjective Anne Chung is a 36 year old female who has been dealing with urinary frequency, urgency, and dysuria for almost one month. She went to see Dr. Tiffany Vale who started her on oxybutynin ER 10 mg daily with no improvement. She was not diagnosed with urinary tract infection. She went to the ER yesterday and was given pyridium which was giving partial relief. UA was within normal limits, but urine C&S is growing significant GNR lactose fermenting bacteria. Review of Systems Constitutional: Negative for chills and fever. Respiratory: Negative. Cardiovascular: Negative. Gastrointestinal: Negative. Genitourinary: Positive for dysuria. Negative for difficulty urinating, flank pain and hematuria. ACTIVE PROBLEM LIST Asthma Esophageal Reflux Tobacco Use Disorder Thoracic Outlet Syndrome Anxiety With Depression Current Outpatient Medications Medication Sig DULoxetine (CYMBALTA) 20 mg capsule Take 1 capsule by mouth once daily. lidocaine (LIDODERM) 5 % Apply 1 Patch as directed every 24 hours. to affected area. Remove patch after 12 hours. gabapentin (NEURONTIN) 300 mg capsule Take 2 capsules by mouth three times daily for [address] (PROTONIX) 40 mg tablet Take 1 tablet by mouth daily before breakfast. Take on empty stomach, 1/2 hr before meal. albuterol HFA (VENTOLIN HFA) 90 mcg/actuation inhaler INHALE TWO PUFFS BY MOUTH EVERY 6 HOURS NEEDED FOR WHEEZING OR SHORTNESS OF BREATH EPINEPHrine (EPIPEN) 0.3 mg/0.3 mL auto-injector GIVE ONE DOSE INTO LATERAL THIGH FOR ALLERGIC REACTION. REPEAT DOSE IN 5-15 MINUTES IF NOT IMPROVING cyclobenzaprine (FLEXERIL) 10 mg tablet Take 1 tablet by mouth at bedtime as needed for muscle spasm or pain. ondansetron orally disintegrating (ZOFRAN ODT) 4 mg disintegrating tablet Take 1 tablet by mouth every 6 hours as needed for nausea/vomiting. acetaminophen (TYLENOL) 500 mg tablet Take 2 tablets by mouth every 8 hours. albuterol (PROVENTIL) 2.5 mg /3 mL (0.083 %) nebulizer solution Use 3 mL via nebulizer three times daily as needed. OVER 5-15 MINUTES. FOR WHEEZING AND SHORTNESS OF BREATH. No current facility-administered medications for this visit. Objective BP 112/68 Pulse 80 Temp 36.3 C (97.3 F) Resp 20 Wt 77.1 kg (170 lb) LMP 05/16/2015 SpO2 99% BMI 33.20 kg/m Physical Exam Constitutional: General: She is not in acute distress. Appearance: She is not ill-appearing. Pulmonary: Effort: Pulmonary effort is normal. Abdominal: Palpations: Abdomen is soft. Tenderness: There is abdominal tenderness in the suprapubic area. There is no right CVA tenderness, left CVA tenderness, guarding or rebound. Neurological: Mental Status: She is alert. ER report reviewed. Urine C&S preliminary from [facility] ER. Assessment and Plan ASSESSMENT/PLAN: 1. Overactive bladder - ICD9: 596.51, ICD10: N32.81 (primary diagnosis) - UA DIP, URINE (POC) - NITROFURANTOIN MONOHYDRATE & MACROCRYSTAL 100 MG ORAL CAP - OXYBUTYNIN CHLORIDE ER 10 MG TABLET,EXTENDED RELEASE [address] Terrell Vale. 2. Bacteriuria - ICD9: 791.9, ICD10: R82.71 - NITROFURANTOIN MONOHYDRATE & MACROCRYSTAL 100 MG ORAL CAP Yassine Radford MD documented in this encounter [facility] 07-28-2022 Miscellaneous Notes noted, should let urology provider know of her symptoms. ER for severe or concerning symptoms Protocol recommends see provider within 24 hours. Has appt with German Pranay for tomorrow morning. Patient agreeable to ER if pain or symptoms worsen. Please call patient if provider has other instructions. Thank you. Reason for Disposition Side (flank) or lower back pain present Answer Assessment - Initial Assessment Questions Patient reports she has been experiencing bladder discomfort off and on for about a month. History of UTIs. Seeing a bladder specialist, thinks bladder may be dropping and is to f/u with bladder specialist end of this month. Taking oxybutynin. Experiencing urinary frequency, bladder pain, flank pain and urine has strong odor. Rates flank pain as an 8 out of 10 and bladder pain as less than 9. -taking OTC medications for pain. Denies fever, chills, burning with urination or blood in urine. 1. SYMPTOM: as above 2. ONSET: about a month ago 3. PAIN: yes, bilateral flank and bladder pain 4. CAUSE: not sure 5. OTHER SYMPTOMS: as above 6. :no Protocols used: Urinary [id number] documented in this encounter [facility] 07-14-2022 Miscellaneous Notes 1st attempt left message to return call to [phone] Ontiveros schedulers will assist in arranging this appointment. Sent e-mail also to Dr Ontiveros's schedulers and my chart message to the patient. Sending to PSS to schedule. Leticia Persaud LPN Isabel Pedroza ordered pain management consult on June 19. Please schedule 1st available or cancellation list for Dr. Brandon Ontiveros. documented in this encounter [facility] 07-03-2022 Miscellaneous Notes TERESE: 06/19/2022 Last refill: 05/04/2022 QTY: 10 Refills: 3 Patient's request for medication is as follows: Pending Prescriptions Disp Refills LIDOCAINE 5 % TOPICAL PATCH 10 Patch 3 Sig: Apply 1 Patch as directed every 24 hours. to affected area. Remove patch after 12 hours. EUGENIA: No Please approve the above prescription(s) to electronically send to pharmacy. Levy Luu Ma documented in this encounter [facility] 06-27-2022 Miscellaneous Notes Please schedule her with Dr Ontiveros. Rx sent. PDMP website checked and validated. All prescriptions have been APPROPRIATELY filled. No suspicious activity was identified. 06/27/2022 by German Pires APRN.[facility] Please send any future requests for refills of this to PCP as I do not believe he wanted to prescribe this chronically for her; he can decide in foloow up. Patient has been identified by name and date of : Yes Patient phones for refill(s): Pending Prescriptions Disp Refills OXYCODONE 5 MG TABLET 15 tablet 0 Sig: Take 1 tablet by mouth every 8 hours as needed for pain for up to 7 days. BUBBA Class: C-II EUGENIA: No Date of last office visit in primary care: 06/19/2022 6 month follow-up: 11/07/2022 Last 2 Encounter Wt Readings: Date: Wt: 06/19/2022 77.1 kg (170 lb) 05/23/2022 78 kg (172 lb) Previous labs/tests for medication: Not applicable Please advise. Thank you. Leticia Persaud LPN documented in this encounter [facility] 06-20-2022 History of Presen t illness Narrative POPULATION HEALTH NAVIGATION OUTREACH Action/I [facility] Support: Called pt to schedule an appt in Pain Management. Lvm for pt to call [phone] for scheduling. Pt identified by name and : NO Outreach Outcome/Action Unable to reach patient: Left message Did you use a PCP flex slot to schedule this appointment? N/A Reason for Outreach Care Gap or Scheduling/Wellness visits Payer: Payor: [facility] MEDICAID / Plan: [facility] MEDICAID / Product Type: Medicaid / Care Gap Reviewed:: Specialty Scheduling Reminder: Reminder note to check Health Maintenance for items below Health Maintenance items due: There are no preventive care reminders to display for this patient. Message Sent to Practice: No Navigation Signature: Carol Perez June 20, 2022 4:19 PM documented in this encounter [facility] 06-20-2022 Miscellaneous Notes Left vm for pt with appt info. Lindsey Coley PSS documented in this encounter [facility] 06-19-2022 Miscellaneous Notes Left brief message on cell voicemail stating to call the office to schedule New patient appointment with Dr. Ontiveros or Panchito Lopez in [place]. Lolita Cotton Please assist with scheduling. Thanks Kasia Bermudez PSS documented in this encounter [facility] 06-19-2022 History of Presen t illness Narrative SUBJECTIVE: There are no preventive care reminders to display for this patient. HPI Anne Chung is a 36 year old female. PMH significant for ACTIVE PROBLEM LIST Asthma Esophageal Reflux Tobacco Use Disorder Thoracic Outlet Syndrome Anxiety With Depression PCP: Yassine Radford MD Presents today with report of shoulder pain. Has seen Estevan Blackman MD Vascular Surgery for thoracic outlet syndrome She underwent lleft supraclavicular first rib resection with neurolysis for neurogenic thoracic outlet syndrome September 26, 2021, did well after surgery. Completed physical therapy. She has been taking oxycodone for pain, last refill in April per Yassine Radford MD, for acute exacerbation, no further refills planned. She was continued on lidocaine patch and gabapentin. Today reports exacerbation of pain in her left shoulder, radiating to left side of neck and left side of chest. She notes symptoms of TOS flared up about 5 days ago with severe burning of the left shoulder, worse at the end of the day. 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 She had no specific injury, no increased lifting. Notes she does have to do heavy lifting at work. Notes decreased range of motion. Reports taking gabapentin 2 or 3 times per day. Notes at times forgets midday dosing when she is at work. Has been using lidocaine patches. Thinks she may need injection in the joint area. Recently completed physical therapy. Notes decreased range of motion with extending and raising her left arm. Review of Systems Constitutional: Negative. Musculoskeletal: Positive for arthralgias and neck pain. Objective BP 118/78 Pulse 84 Resp 16 Wt 77.1 kg (170 lb) LMP 05/16/2015 BMI 33.20 kg/m Physical Exam Vitals and nursing note reviewed. Constitutional: Appearance: Normal appearance. HENT: Head: Normocephalic and atraumatic. Eyes: Conjunctiva/sclera: Conjunctivae normal. Cardiovascular: Rate and Rhythm: Normal rate. Pulmonary: Effort: Pulmonary effort is normal. Musculoskeletal: Left shoulder: Tenderness and bony tenderness present. Decreased range of motion. Decreased strength. Skin: General: Skin is warm and dry. Neurological: Mental Status: She is alert. Mental status is at baseline. ALLERGIES Allergen Reactions Bees Anaphylaxis Pt had swelling, was given epipen at ER. Morphine Rash Left arm turned red when given IV morphine Penicillins Other: See Comments Patient refuses due to family allergy to PCN. Valium [Diazepam] Hives Hives on chest only. Tessalon [Benzonata* Rash Medication LORazepam (ATIVAN) 0.5 mg Take 1 tablet by mouth at bedtime as needed (anxiety) for up to 30 days. PARoxetine (PAXIL) 20 mg tablet Take 1 tablet by mouth once daily. gabapentin (NEURONTIN) 300 mg capsule Take 2 capsules by mouth three times daily for [address] (PROTONIX) 40 mg tablet Take 1 tablet by mouth daily before breakfast. Take on empty stomach, 1/2 hr before meal. albuterol HFA (VENTOLIN HFA) 90 mcg/actuation inhaler INHALE TWO PUFFS BY MOUTH EVERY 6 HOURS NEEDED FOR WHEEZING OR SHORTNESS OF BREATH EPINEPHrine (EPIPEN) 0.3 mg/0.3 mL auto-injector GIVE ONE DOSE INTO LATERAL THIGH FOR ALLERGIC REACTION. REPEAT DOSE IN 5-15 MINUTES IF NOT IMPROVING cyclobenzaprine (FLEXERIL) 10 mg tablet Take 1 tablet by mouth at bedtime as needed for muscle spasm or pain. ondansetron orally disintegrating (ZOFRAN ODT) 4 mg disintegrating tablet Take 1 tablet by mouth every 6 hours as needed for nausea/vomiting. acetaminophen (TYLENOL) 500 mg tablet Take 2 tablets by mouth every 8 hours. albuterol (PROVENTIL) 2.5 mg /3 mL (0.083 %) nebulizer solution Use 3 mL via nebulizer three times daily as needed. OVER 5-15 MINUTES. FOR WHEEZING AND SHORTNESS OF BREATH. PAST MEDICAL HISTORY Diagnosis Date Abnormal mammogram 02/16/2017 ASCUS (atypical squamous cells of undetermined significance) on Pap smear 09/24/2013 ASTHMA UNSPECIFIED 07/26/2006 BIPOLAR DISORDER NOS 07/26/2006 COVID 11/27/2021 Esophageal reflux 08/23/2006 Hidradenitis 01/15/2007 Hot flashes Insomnia Irritable bowel syndrome 03/15/2012 Mastodynia 08/23/2006 Mixed stress and urge urinary incontinence 12/13/2019 Nausea 01/02/2011 Raynaud's phenomenon without gangrene 02/01/2017 Thoracic outlet syndrome 06/14/2020 Tobacco use disorder 12/25/2006 Vaginal dryness Social History Tobacco Use Smoking status: Current Every Day Smoker Packs/day: 1.00 Years: 29.00 Pack years: 29.00 Types: Cigarettes Start date: 10/26/1992 Smokeless tobacco: Never Used Tobacco comment: started age 17 Vaping Use Vaping Use: Never used Substance Use Topics Alcohol use: No Drug use: Not Currently Types: Marijuana ASSESSMENT/PLAN: 1. Thoracic outlet syndrome - ICD9: 353.0, ICD10: G54.0 Recommend she consistently take gabapentin 3 times a day Short-term oxycodone provided. Continue with lidocaine patch. Recommend scheduling appointment with pain management and vascular surgeon - CONSULT TO VASCULAR SURGERY - CONSULT TO PAIN MGT - OXYCODONE 5 MG TABLET Advised: Schedule appt with Estevan Blackman MD Vascular Surgery and pain management provider, Dr Ontiveros or preferred German Pires APRN.FISHER EEL SPEAR PDMP website checked and validated. All prescriptions have been APPROPRIATELY filled. No suspicious activity was identified. 06/19/2022 by German Pires APRN.CNS Medical Decision Making: Problems: Moderate: 1+ chronic illnesses with change Risk: Moderate: Drug management Medical Decision Making Level: 4 - Moderate documented in this encounter [facility] 05-23-2022 History of Presen t illness Narrative This note was created using [employer]. Subjective Anne Chung is a 36 year old female. Her chronic underlying anxiety flared up 3-4 weeks ago. She 3 anniversaries this month, and she was reliving that stress. She had panic, insomnia, and depression. She denied suicide ideations. 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 Review of Systems Constitutional: Negative. Negative for appetite change and unexpected weight change. Respiratory: Negative for shortness of breath. Cardiovascular: Negative for chest pain. ACTIVE PROBLEM LIST Asthma Esophageal Reflux Tobacco Use Disorder Thoracic Outlet Syndrome Tos (Thoracic Outlet Syndrome) Current Outpatient Medications Medication Sig gabapentin (NEURONTIN) 300 mg capsule Take 2 capsules by mouth three times daily for [address] (PROTONIX) 40 mg tablet Take 1 tablet by mouth daily before breakfast. Take on empty stomach, 1/2 hr before meal. lidocaine (LIDODERM) 5 % Apply 1 Patch as directed every 24 hours. to affected area. Remove patch after 12 hours. albuterol HFA (VENTOLIN HFA) 90 mcg/actuation inhaler INHALE TWO PUFFS BY MOUTH EVERY 6 HOURS NEEDED FOR WHEEZING OR SHORTNESS OF BREATH EPINEPHrine (EPIPEN) 0.3 mg/0.3 mL auto-injector GIVE ONE DOSE INTO LATERAL THIGH FOR ALLERGIC REACTION. REPEAT DOSE IN 5-15 MINUTES IF NOT IMPROVING cyclobenzaprine (FLEXERIL) 10 mg tablet Take 1 tablet by mouth at bedtime as needed for muscle spasm or pain. ondansetron orally disintegrating (ZOFRAN ODT) 4 mg disintegrating tablet Take 1 tablet by mouth every 6 hours as needed for nausea/vomiting. acetaminophen (TYLENOL) 500 mg tablet Take 2 tablets by mouth every 8 hours. albuterol (PROVENTIL) 2.5 mg /3 mL (0.083 %) nebulizer solution Use 3 mL via nebulizer three times daily as needed. OVER 5-15 MINUTES. FOR WHEEZING AND SHORTNESS OF BREATH. LORazepam (ATIVAN) 0.5 mg Take 1 tablet by mouth at bedtime as needed (anxiety) for up to 30 days. PARoxetine (PAXIL) 20 mg tablet Take 1 tablet by mouth once daily. No current facility-administered medications for this visit. Objective BP 116/70 (BP Site: Left Arm, BP Position: Sitting, BP Cuff Size: Large Adult) Pulse 72 Temp 36.2 C (97.2 F) (Temporal Artery) Resp 16 Wt 78 kg (172 lb) LMP 05/16/2015 BMI 33.59 kg/m Physical Exam Constitutional: General: She is not in acute distress. Pulmonary: Effort: Pulmonary effort is normal. Neurological: Mental Status: She is alert. Psychiatric: Attention and Perception: Attention normal. Mood and Affect: Mood is anxious. Speech: Speech normal. Behavior: Behavior is hyperactive. Thought Content: Thought content normal. Cognition and Memory: Cognition normal. BLACK-7 ANXIETY SCALE 05/23/2022 FEELING NERVOUS,ANXIOUS,OR ON EDGE 2 Over half the days NOT BEING ABLE TO STOP OR CONTROL WORRYING 2 Over half the days WORRYING TOO MUCH ABOUT DIFFERENT THINGS 2 Over half the days TROUBLE RELAXING 2 Over half the days BEING SO RESTLESS THAT IT'S HARD TO SIT STILL 1 Several days BEING EASILY ANNOYED OR IRRITABLE 2 Over half the days FEELING AFRAID IF SOMETHING AWFUL MIGHT HAPPEN 2 Over half the days GAD7 SCORE 13 IF YOU CHECKED OFF ANY PROBLEMS Somewhat difficult CP PHQ9 05/23/2022 Little interest or pleasure 2 - More than half the days Feeling down, depressed, hopeless 2 - More than half the days Trouble falling or staying asleep, sleeping too much 2 - More than half the days Feeling tired, having little energy 2 - More than half the days Poor appetite or overeating 2 - More than half the days Feeling bad about yourself, failure or you have let yourself/family down 1 - Several days Trouble concentrating on things 2 - More than half the days Moving or speaking so slowly, or fidgety or restless 1 - Several days Thoughts that you would be better off , or of hurting yourself in some way 0 - Not at all How difficult have these problems made things Somewhat difficult Interpretation of Total Score 10-14 Moderate depression Assessment and Plan 1. Anxiety with depression - ICD9: 300.4, ICD10: F41.8 - LORAZEPAM 0.5 MG TABLET. Discussed medication dosage, usage, goals of therapy, and side effects. Limit use. Not for buttermaker continuous churn use. - PAROXETINE 20 MG TABLET. Take one(1) tablet daily. Discussed medication dosage, usage, goals of therapy, and side effects. She had taken this in the past. Patient contracted for safety. - CONSULT TO PRIMARY CARE BEHAVIORAL HEALTH ADULT Yassine Radford MD documented in this encounter [facility] 05-10-2022 Miscellaneous Notes Spoke with pt and information listed below given. Pt verbalizes understanding. Birgit Velazquez LPN Left a message for pt to call the office and ask to speak to a nurse. Birgit Velazquez LPN Refused Prescriptions Disp Refills oxyCODONE IR (ROXICODONE) 5 mg immediate release tablet 15 tablet 0 Sig: Take 1 tablet by mouth every 8 hours as needed for pain for up to 7 days. BUBBA Class: C-II EUGENIA: No Refused By: YASSINE RADFORD Reason for Refusal: A Refill not appropriate Yassine Radford MD Patient has been identified by name and date of : Yes Patient phones for refill(s): Pending Prescriptions Disp Refills OXYCODONE 5 MG TABLET 15 tablet 0 Sig: Take 1 tablet by mouth every 8 hours as needed for pain for up to 7 days. BUBBA Class: C-II EUGENIA: No Date of last office visit in primary care: 05/04/2022 6 month follow-up: 11/07/2022 Last 2 Encounter Wt Readings: Date: Wt: 05/04/2022 79.2 kg (174 lb 9.6 oz) 02/24/2022 77.6 kg (171 lb) Previous labs/tests for medication: Not applicable Please advise. Thank you. Leticia Persaud LPN documented in this encounter [facility] 05-04-2022 History of Presen t illness Narrative This note was created using [employer]. Subjective Anne Chung is a 36 year old female. Her TOS flared up one week ago with severe burning of the left shoulder, worse at the end of the day. 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 She had no specific injury. Asthma was controlled and she declined pneumovax. Refills were needed. She also had relief in the past with Lidoderm. Review of Systems Constitutional: Negative. Respiratory: Negative. Cardiovascular: Negative. Musculoskeletal: Negative for neck pain. ACTIVE PROBLEM LIST Asthma Esophageal Reflux Tobacco Use Disorder Thoracic Outlet Syndrome Tos (Thoracic Outlet Syndrome) Current Outpatient Medications Medication Sig albuterol HFA (VENTOLIN HFA) 90 mcg/actuation inhaler INHALE TWO PUFFS BY MOUTH EVERY 6 HOURS NEEDED FOR WHEEZING OR SHORTNESS OF BREATH EPINEPHrine (EPIPEN) 0.3 mg/0.3 mL auto-injector GIVE ONE DOSE INTO LATERAL THIGH FOR ALLERGIC REACTION. REPEAT DOSE IN 5-15 MINUTES IF NOT IMPROVING cyclobenzaprine (FLEXERIL) 10 mg tablet Take 1 tablet by mouth at bedtime as needed for muscle spasm or pain. ondansetron orally disintegrating (ZOFRAN ODT) 4 mg disintegrating tablet Take 1 tablet by mouth every 6 hours as needed for nausea/vomiting. gabapentin (NEURONTIN) 300 mg capsule Take 2 capsules by mouth three times daily for 90 days. acetaminophen (TYLENOL) 500 mg tablet Take 2 tablets by mouth every [address] (PROTONIX) 40 mg tablet Take 1 tablet by mouth daily before breakfast. Take on empty stomach, 1/2 hr before meal. albuterol (PROVENTIL) 2.5 mg /3 mL (0.083 %) nebulizer solution Use 3 mL via nebulizer three times daily as needed. OVER 5-15 MINUTES. FOR WHEEZING AND SHORTNESS OF BREATH. No current facility-administered medications for this visit. Objective BP 112/70 (BP Site: Right Arm, BP Position: Sitting, BP Cuff Size: Large Adult) Pulse 76 Temp 36.3 C (97.4 F) (Temporal Artery) Resp 16 Wt 79.2 kg (174 lb 9.6 oz) LMP 05/16/2015 BMI 34.10 kg/m Physical Exam Constitutional: General: She is not in acute distress. Cardiovascular: Rate and Rhythm: Regular rhythm. Pulmonary: Breath sounds: Normal breath sounds. Musculoskeletal: Left shoulder: Tenderness present. No swelling. Normal range of motion. Cervical back: Normal range of motion and neck supple. Comments: Soft tissue tenderness, left upper chest in shoulder/clavicle area. Neurological: Mental Status: She is alert. Assessment and Plan 1. Thoracic outlet syndrome - ICD9: 353.0, ICD10: G54.0 (primary diagnosis) Acute pain exacerbation. - GABAPENTIN 300 MG CAPSULE - OXYCODONE 5 MG TABLET. Acute prescription. No refills planned. Discussed medication dosage, usage, goals of therapy, and side effects. OARRS checked. - LIDOCAINE 5 % TOPICAL PATCH 2. Gastroesophageal reflux disease, unspecified whether esophagitis present - ICD9: 530.81, ICD10: K21.9 Controlled. - PANTOPRAZOLE 40 MG TABLET,DELAYED RELEASE 3. Uncomplicated asthma, unspecified asthma severity, unspecified whether persistent - ICD9: 493.90, ICD10: J45.909 Stable. Pneumovax declined. Yassine Radford MD documented in this encounter [facility] 04-25-2022 Miscellaneous Notes Patient has been identified by name and date of : Yes Patient phones for refill(s): Pending Prescriptions Disp Refills ALBUTEROL SULFATE HFA 90 MCG/ACTUATION AEROSOL INHALER 18 g 5 Sig: INHALE TWO PUFFS BY MOUTH EVERY 6 HOURS NEEDED FOR WHEEZING OR SHORTNESS OF BREATH EUGENIA: No Date of last office visit in primary care: 02/24/2022 No future appt scheduled. Last 2 Encounter Wt Readings: Date: Wt: 02/24/2022 77.6 kg (171 lb) 01/28/2022 78.6 kg (173 lb 3.2 oz) Previous labs/tests for medication: Not applicable Please advise. Thank you. Leticia Persaud LPN documented in this encounter [facility] 04-06-2022 Miscellaneous Notes Patient has been identified by name and date of : Yes Patient phones for refill(s): Pending Prescriptions Disp Refills EPINEPHRINE 0.3 MG/0.3 ML INJECTION, AUTO-INJECTOR 2 Each 0 Sig: GIVE ONE DOSE INTO LATERAL THIGH FOR ALLERGIC REACTION. REPEAT DOSE IN 5-15 MINUTES IF NOT IMPROVING EUGENIA: No Date of last office visit with pcp: 12/31/21 Date of last office visit in primary care: Last 2 Encounter Wt Readings: Date: Wt: 02/24/2022 77.6 kg (171 lb) 01/28/2022 78.6 kg (173 lb 3.2 oz) Previous labs/tests for medication: Not applicable Please advise. Thank you. Nicole Sanches RN documented in this encounter [facility] 02-24-2022 History of Presen t illness Narrative SUBJECTIVE: There are no preventive care reminders to display for this patient. HPI Anne Chung is a 36 year old female. PMH signficant for ACTIVE PROBLEM LIST Asthma Esophageal Reflux Tobacco Use Disorder Thoracic Outlet Syndrome Tos (Thoracic Outlet Syndrome) She presents for posterior right shoulder and right sided and mid upper back pain present for about 2 weeks. She notes no injury. No heavy lifting or other causative factor known. She notes treatments at home without help, Tylenol ibuprofen ice and heat. She notes pain with range of motion of her shoulder, raising arm and reaching behind her back. No prior occurrence like this. No numbness or tingling. Research Asst is maintained. Notes she is doing well with TOS on the left side. Review of Systems Constitutional: Negative. Musculoskeletal: Positive for arthralgias and back pain. Objective Physical Exam Vitals and nursing note reviewed. Constitutional: Appearance: Normal appearance. HENT: Head: Normocephalic and atraumatic. Eyes: Conjunctiva/sclera: Conjunctivae normal. Cardiovascular: Rate and Rhythm: Normal rate and regular rhythm. Pulmonary: Effort: Pulmonary effort is normal. Musculoskeletal: Comments: Tender to palpation right shoulder, right upper back and midline back pain is present, range of motion decreased in the right shoulder, no numbness or tingling, photo printer preserved normal pulse Skin: General: Skin is warm and dry. Neurological: General: No focal deficit present. Mental Status: She is alert and oriented to person, place, and time. ALLERGIES Allergen Reactions Bees Anaphylaxis Pt had swelling, was given epipen at ER. Morphine Rash Left arm turned red when given IV morphine Penicillins Other: See Comments Patient refuses due to family allergy to PCN. Valium [Diazepam] Hives Hives on chest only. Tessalon [Benzonata* Rash ondansetron orally disintegrating (ZOFRAN ODT) 4 mg disintegrating tablet Take 1 tablet by mouth every 6 hours as needed for nausea/vomiting. albuterol HFA (VENTOLIN HFA) 90 mcg/actuation inhaler INHALE TWO PUFFS BY MOUTH EVERY 6 HOURS NEEDED FOR WHEEZING OR SHORTNESS OF BREATH gabapentin (NEURONTIN) 300 mg capsule Take 2 capsules by mouth three times daily for 90 days. acetaminophen (TYLENOL) 500 mg tablet Take 2 tablets by mouth every [address] (PROTONIX) 40 mg tablet Take 1 tablet by mouth daily before breakfast. Take on empty stomach, 1/2 hr before meal. albuterol (PROVENTIL) 2.5 mg /3 mL (0.083 %) nebulizer solution Use 3 mL via nebulizer three times daily as needed. OVER 5-15 MINUTES. FOR WHEEZING AND SHORTNESS OF BREATH. cyclobenzaprine (FLEXERIL) 10 mg tablet Take 1 tablet by mouth at bedtime as needed for muscle spasm or pain. predniSONE (DELTASONE) 10 mg tablet Take 4 tabs daily x 3 days, then 3 tabs x 3 days, 2 tabs x 3 days, then 1 tab x3 days with food. PAST MEDICAL HISTORY Diagnosis Date Abnormal mammogram 02/16/2017 ASCUS (atypical squamous cells of undetermined significance) on Pap smear 09/24/2013 ASTHMA UNSPECIFIED 07/26/2006 BIPOLAR DISORDER NOS 07/26/2006 COVID 11/27/2021 Esophageal reflux 08/23/2006 Hidradenitis 01/15/2007 Hot flashes Insomnia Irritable bowel syndrome 03/15/2012 Mastodynia 08/23/2006 Mixed stress and urge urinary incontinence 12/13/2019 Nausea 01/02/2011 Raynaud's phenomenon without gangrene 02/01/2017 Thoracic outlet syndrome 06/14/2020 Tobacco use disorder 12/25/2006 Vaginal dryness Social History Tobacco Use Smoking status: Current Every Day Smoker Packs/day: 1.00 Years: 29.00 Pack years: 29.00 Types: Cigarettes Start date: 10/26/1992 Smokeless tobacco: Never Used Tobacco comment: started age 17 Vaping Use Vaping Use: Never used Substance Use Topics Alcohol use: No Drug use: Not Currently Types: Marijuana ASSESSMENT/PLAN: 1. Acute pain of right shoulder - ICD9: 719.41, ICD10: M25.511 (primary diagnosis) - KETOROLAC 60 MG/2 ML INTRAMUSCULAR SOLUTION - XR SHOULDER GENERAL 3V OR MORE AP/TRUE AP/OTHER LEFT - CONSULT TO PHYSICAL THERAPY - XR THORACIC GENERAL 3V AP/LAT/SWIMMERS - XR CERV GENERAL 2V AP/LAT 2. Pain, postoperative, acute - ICD9: 338.18, ICD10: G89.18 - CYCLOBENZAPRINE 10 MG TABLET 3. TOS (thoracic outlet syndrome) - ICD9: 353.0, ICD10: G54.0 - CYCLOBENZAPRINE 10 MG TABLET 4. Acute upper back pain - ICD9: 724.5, 338.19, ICD10: M54.9 - XR THORACIC GENERAL 3V AP/LAT/SWIMMERS - XR CERV GENERAL 2V AP/LAT Recommend Toradol shot today. Start taking prednisone daily in the morning, tapering dose. May increase pantoprazole to 2 tabs daily while taking prednisone to avoid GI upset. X-ray, PT ordered. Follow-up 1 week with PCP. 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 documented in this encounter [facility] documented as of this encounter (statuses as of 05/23/2022) [facility] History of Past illness Narrative* Problem Noted Date Resolved Date TOS (thoracic outlet syndrome) 10/18/2021 0 05/23/2022 Mixed stress and urge urinary incontinence 12/1309/08/2021 Raynaud's phenomenon without gangrene 02/01/2017 12/14/2019 Pain of left thumb 01/20/2015 04/18/2018 Myofascial pain 11/07/2013 04/18/2018 ASCUS (atypical squamous renetta ls of undetermined significance) on Pap smear 09/24/2013 04/18/2018 Abdominal pain, chronic, generalized 07/04/2013 04/18/2018 Irritable bowel syndrome 03/15/2012 020 Unspecified gastritis and ga stroduodenitis without mention of hemorrhage 07/21/2011 03/15/2012 Acute gastritis without mention of hemorrhage 03/15/2012 Abdominal pain, right upper quadrant 07/11/2011 03/15/2012 Disturbance of skin sensation 01/21/2010 Cervicalgia 01/21/2010 01/03/2011 Abdominal pain, epigastric 10/26/200903/15 Abdominal pain, generalized 10/05/2009 02/0 06/2011 Dysuria 05/21/2009 01/03/2011 Lumbago 03/09/2008 04/18/2018 Pruritus of genital organs 11/21/200601/03 Bipolar disorder, unspecified 07/26/2006 documented as of this encounter (statuses as of 05/23/2022) [facility] History of Past illness Narrative* Problem Noted Date Resolved Date TOS (thoracic outlet syndrome) 10/18/2021 0 05/23/2022 Mixed stress and urge urinary incontinence 12/1309/08/2021 Raynaud's phenomenon without gangrene 02/01/2017 12/14/2019 Pain of left thumb 01/20/2015 04/18/2018 Myofascial pain 11/07/2013 04/18/2018 ASCUS (atypical squamous renetta ls of undetermined significance) on Pap smear 09/24/2013 04/18/2018 Abdominal pain, chronic, generalized 07/04/2013 04/18/2018 Irritable bowel syndrome 03/15/2012 020 Unspecified gastritis and ga stroduodenitis without mention of hemorrhage 07/21/2011 03/15/2012 Acute gastritis without mention of hemorrhage 03/15/2012 Abdominal pain, right upper quadrant 07/11/2011 03/15/2012 Disturbance of skin sensation 01/21/2010 Cervicalgia 01/21/2010 01/03/2011 Abdominal pain, epigastric 10/26/200903/15 Abdominal pain, generalized 10/05/2009 02/06/2011 Dysuria 05/21/2009 01/03/2011 Lumbago 03/09/2008 04/18/2018 Pruritus of genital organs 11/21/200601/03 Bipolar disorder, unspecified 07/26/2006 documented as of this encounter (statuses as of 06/19/2022) [facility] History of Past illness Narrative* Problem Noted Date Resolved Date TOS (thoracic outlet syndrome) 10/18/2021 0 05/23/2022 Mixed stress and urge urinary incontinence 12/1309/08/2021 Raynaud's phenomenon without gangrene 02/01/2017 12/14/2019 Pain of left thumb 01/20/2015 04/18/2018 Myofascial pain 11/07/2013 04/18/2018 ASCUS (atypical squamous renetta ls of undetermined significance) on Pap smear 09/24/2013 04/18/2018 Abdominal pain, chronic, generalized 07/04/2013 04/18/2018 Irritable bowel syndrome 03/15/2012 020 Unspecified gastritis and ga stroduodenitis without mention of hemorrhage 07/21/2011 03/15/2012 Acute gastritis without mention of hemorrhage 03/15/2012 Abdominal pain, right upper quadrant 07/11/2011 03/15/2012 Disturbance of skin sensation 01/21/2010 Cervicalgia 01/21/2010 01/03/2011 Abdominal pain, epigastric 10/26/200903/15 Abdominal pain, generalized 10/05/2009 02/0 06/2011 Dysuria 05/21/2009 01/03/2011 Lumbago 03/09/2008 04/18/2018 Pruritus of genital organs 11/21/200601/03 Bipolar disorder, unspecified 07/26/2006 documented as of this encounter (statuses as of 06/19/2022) [facility] History of Past illness Narrative* Problem Noted Date Resolved Date TOS (thoracic outlet syndrome) 10/18/2021 0 05/23/2022 Mixed stress and urge urinary incontinence 12/1309/08/2021 Raynaud's phenomenon without gangrene 02/01/2017 12/14/2019 Pain of left thumb 01/20/2015 04/18/2018 Myofascial pain 11/07/2013 04/18/2018 ASCUS (atypical squamous renetta ls of undetermined significance) on Pap smear 09/24/2013 04/18/2018 Abdominal pain, chronic, generalized 07/04/2013 04/18/2018 Irritable bowel syndrome 03/15/2012 020 Unspecified gastritis and ga stroduodenitis without mention of hemorrhage 07/21/2011 03/15/2012 Acute gastritis without mention of hemorrhage 03/15/2012 Abdominal pain, right upper quadrant 07/11/2011 03/15/2012 Disturbance of skin sensation 01/21/2010 Cervicalgia 01/21/2010 01/03/2011 Abdominal pain, epigastric 10/26/200903/15 Abdominal pain, generalized 10/05/2009 02/0 06/2011 Dysuria 05/21/2009 01/03/2011 Lumbago 03/09/2008 04/18/2018 Pruritus of genital organs 11/21/200601/03 Bipolar disorder, unspecified 07/26/2006 documented as of this encounter (statuses as of 06/20/2022) [facility] History of Past illness Narrative* Problem Noted Date Resolved Date TOS (thoracic outlet syndrome) 10/18/2021 0 05/23/2022 Mixed stress and urge urinary incontinence 12/1309/08/2021 Raynaud's phenomenon without gangrene 02/01/2017 12/14/2019 Pain of left thumb 01/20/2015 04/18/2018 Myofascial pain 11/07/2013 04/18/2018 ASCUS (atypical squamous renetta ls of undetermined significance) on Pap smear 09/24/2013 04/18/2018 Abdominal pain, chronic, generalized 07/04/2013 04/18/2018 Irritable bowel syndrome 03/15/2012 020 Unspecified gastritis and ga stroduodenitis without mention of hemorrhage 07/21/2011 03/15/2012 Acute gastritis without mention of hemorrhage 03/15/2012 Abdominal pain, right upper quadrant 07/11/2011 03/15/2012 Disturbance of skin sensation 01/21/2010 Cervicalgia 01/21/2010 01/03/2011 Abdominal pain, epigastric 10/26/200903/15 Abdominal pain, generalized 10/05/2009 02/0 06/2011 Dysuria 05/21/2009 01/03/2011 Lumbago 03/09/2008 04/18/2018 Pruritus of genital organs 11/21/200601/03 Bipolar disorder, unspecified 07/26/2006 documented as of this encounter (statuses as of 06/20/2022) [facility] History of Past illness Narrative* Problem Noted Date Resolved Date TOS (thoracic outlet syndrome) 10/18/2021 0 05/23/2022 Mixed stress and urge urinary incontinence 12/1309/08/2021 Raynaud's phenomenon without gangrene 02/01/2017 12/14/2019 Pain of left thumb 01/20/2015 04/18/2018 Myofascial pain 11/07/2013 04/18/2018 ASCUS (atypical squamous renetta ls of undetermined significance) on Pap smear 09/24/2013 04/18/2018 Abdominal pain, chronic, generalized 07/04/2013 04/18/2018 Irritable bowel syndrome 03/15/2012 020 Unspecified gastritis and ga stroduodenitis without mention of hemorrhage 07/21/2011 03/15/2012 Acute gastritis without mention of hemorrhage 03/15/2012 Abdominal pain, right upper quadrant 07/11/2011 03/15/2012 Disturbance of skin sensation 01/21/2010 Cervicalgia 01/21/2010 01/03/2011 Abdominal pain, epigastric 10/26/200903/15 Abdominal pain, generalized 10/05/2009 02/0 06/2011 Dysuria 05/21/2009 01/03/2011 Lumbago 03/09/2008 04/18/2018 Pruritus of genital organs 11/21/200601/03 Bipolar disorder, unspecified 07/26/2006 documented as of this encounter (statuses as of 06/27/2022) [facility] History of Past illness Narrative* Problem Noted Date Resolved Date TOS (thoracic outlet syndrome) 10/18/2021 0 05/23/2022 Mixed stress and urge urinary incontinence 12/1309/08/2021 Raynaud's phenomenon without gangrene 02/01/2017 12/14/2019 Pain of left thumb 01/20/2015 04/18/2018 Myofascial pain 11/07/2013 04/18/2018 ASCUS (atypical squamous renetta ls of undetermined significance) on Pap smear 09/24/2013 04/18/2018 Abdominal pain, chronic, generalized 07/04/2013 04/18/2018 Irritable bowel syndrome 03/15/2012 020 Unspecified gastritis and ga stroduodenitis without mention of hemorrhage 07/21/2011 03/15/2012 Acute gastritis without mention of hemorrhage 03/15/2012 Abdominal pain, right upper quadrant 07/11/2011 03/15/2012 Disturbance of skin sensation 01/21/2010 Cervicalgia 01/21/2010 01/03/2011 Abdominal pain, epigastric 10/26/200903/15 Abdominal pain, generalized 10/05/2009 02/0 06/2011 Dysuria 05/21/2009 01/03/2011 Lumbago 03/09/2008 04/18/2018 Pruritus of genital organs 11/21/200601/03 Bipolar disorder, unspecified 07/26/2006 documented as of this encounter (statuses as of 06/28/2022) [facility] History of Past illness Narrative* Problem Noted Date Resolved Date TOS (thoracic outlet syndrome) 10/18/2021 0 05/23/2022 Mixed stress and urge urinary incontinence 12/1309/08/2021 Raynaud's phenomenon without gangrene 02/01/2017 12/14/2019 Pain of left thumb 01/20/2015 04/18/2018 Myofascial pain 11/07/2013 04/18/2018 ASCUS (atypical squamous renetta ls of undetermined significance) on Pap smear 09/24/2013 04/18/2018 Abdominal pain, chronic, generalized 07/04/2013 04/18/2018 Irritable bowel syndrome 03/15/2012 020 Unspecified gastritis and ga stroduodenitis without mention of hemorrhage 07/21/2011 03/15/2012 Acute gastritis without mention of hemorrhage 03/15/2012 Abdominal pain, right upper quadrant 07/11/2011 03/15/2012 Disturbance of skin sensation 01/21/2010 Cervicalgia 01/21/2010 01/03/2011 Abdominal pain, epigastric 10/26/200903/15 Abdominal pain, generalized 10/05/2009 02/06/2011 Dysuria 05/21/2009 01/03/2011 Lumbago 03/09/2008 04/18/2018 Pruritus of genital organs 11/21/200601/03 Bipolar disorder, unspecified 07/26/2006 documented as of this encounter (statuses as of 07/04/2022) [facility] History of Past illness Narrative* Problem Noted Date Resolved Date TOS (thoracic outlet syndrome) 10/18/2021 0 05/23/2022 Mixed stress and urge urinary incontinence 12/1309/08/2021 Raynaud's phenomenon without gangrene 02/01/2017 12/14/2019 Pain of left thumb 01/20/2015 04/18/2018 Myofascial pain 11/07/2013 04/18/2018 ASCUS (atypical squamous renetta ls of undetermined significance) on Pap smear 09/24/2013 04/18/2018 Abdominal pain, chronic, generalized 07/04/2013 04/18/2018 Irritable bowel syndrome 03/15/2012 020 Unspecified gastritis and ga stroduodenitis without mention of hemorrhage 07/21/2011 03/15/2012 Acute gastritis without mention of hemorrhage 03/15/2012 Abdominal pain, right upper quadrant 07/11/2011 03/15/2012 Disturbance of skin sensation 01/21/2010 Cervicalgia 01/21/2010 01/03/2011 Abdominal pain, epigastric 10/26/200903/15 Abdominal pain, generalized 10/05/2009 02/0 06/2011 Dysuria 05/21/2009 01/03/2011 Lumbago 03/09/2008 04/18/2018 Pruritus of genital organs 11/21/200601/03 Bipolar disorder, unspecified 07/26/2006 documented as of this encounter (statuses as of 07/28/2022) [facility] History of Past illness Narrative* Problem Noted Date Resolved Date TOS (thoracic outlet syndrome) 10/18/2021 0 05/23/2022 Mixed stress and urge urinary incontinence 12/1309/08/2021 Raynaud's phenomenon without gangrene 02/01/2017 12/14/2019 Pain of left thumb 01/20/2015 04/18/2018 Myofascial pain 11/07/2013 04/18/2018 ASCUS (atypical squamous renetta ls of undetermined significance) on Pap smear 09/24/2013 04/18/2018 Abdominal pain, chronic, generalized 07/04/2013 04/18/2018 Irritable bowel syndrome 03/15/2012 020 Unspecified gastritis and ga stroduodenitis without mention of hemorrhage 07/21/2011 03/15/2012 Acute gastritis without mention of hemorrhage 03/15/2012 Abdominal pain, right upper quadrant 07/11/2011 03/15/2012 Disturbance of skin sensation 01/21/2010 Cervicalgia 01/21/2010 01/03/2011 Abdominal pain, epigastric 10/26/200903/15 Abdominal pain, generalized 10/05/2009 02/0 06/2011 Dysuria 05/21/2009 01/03/2011 Lumbago 03/09/2008 04/18/2018 Pruritus of genital organs 11/21/200601/03 Bipolar disorder, unspecified 07/26/2006 documented as of this encounter (statuses as of 08/01/2022) [facility] History of Past illness Narrative* Problem Noted Date Resolved Date TOS (thoracic outlet syndrome) 10/18/2021 0 05/23/2022 Mixed stress and urge urinary incontinence 12/1309/08/2021 Raynaud's phenomenon without gangrene 02/01/2017 12/14/2019 Pain of left thumb 01/20/2015 04/18/2018 Myofascial pain 11/07/2013 04/18/2018 ASCUS (atypical squamous renetta ls of undetermined significance) on Pap smear 09/24/2013 04/18/2018 Abdominal pain, chronic, generalized 07/04/2013 04/18/2018 Irritable bowel syndrome 03/15/2012 020 Unspecified gastritis and ga stroduodenitis without mention of hemorrhage 07/21/2011 03/15/2012 Acute gastritis without mention of hemorrhage 03/15/2012 Abdominal pain, right upper quadrant 07/11/2011 03/15/2012 Disturbance of skin sensation 01/21/2010 Cervicalgia 01/21/2010 01/03/2011 Abdominal pain, epigastric 10/26/200903/15 Abdominal pain, generalized 10/05/2009 02/0 06/2011 Dysuria 05/21/2009 01/03/2011 Lumbago 03/09/2008 04/18/2018 Pruritus of genital organs 11/21/200601/03 Bipolar disorder, unspecified 07/26/2006 documented as of this encounter (statuses as of 08/09/2022) [facility] History of Past illness Narrative* Problem Noted Date Resolved Date TOS (thoracic outlet syndrome) 10/18/2021 0 05/23/2022 Mixed stress and urge urinary incontinence 12/1309/08/2021 Raynaud's phenomenon without gangrene 02/01/2017 12/14/2019 Pain of left thumb 01/20/2015 04/18/2018 Myofascial pain 11/07/2013 04/18/2018 ASCUS (atypical squamous renetta ls of undetermined significance) on Pap smear 09/24/2013 04/18/2018 Abdominal pain, chronic, generalized 07/04/2013 04/18/2018 Irritable bowel syndrome 03/15/2012 020 Unspecified gastritis and ga stroduodenitis without mention of hemorrhage 07/21/2011 03/15/2012 Acute gastritis without mention of hemorrhage 03/15/2012 Abdominal pain, right upper quadrant 07/11/2011 03/15/2012 Disturbance of skin sensation 01/21/2010 Cervicalgia 01/21/2010 01/03/2011 Abdominal pain, epigastric 10/26/200903/15 Abdominal pain, generalized 10/05/2009 02/0 06/2011 Dysuria 05/21/2009 01/03/2011 Lumbago 03/09/2008 04/18/2018 Pruritus of genital organs 11/21/200601/03 Bipolar disorder, unspecified 07/26/2006 documented as of this encounter (statuses as of 08/31/2022) [facility] History of Past illness Narrative* Problem Noted Date Resolved Date TOS (thoracic outlet syndrome) 10/18/2021 0 05/23/2022 Mixed stress and urge urinary incontinence 12/1309/08/2021 Raynaud's phenomenon without gangrene 02/01/2017 12/14/2019 Pain of left thumb 01/20/2015 04/18/2018 Myofascial pain 11/07/2013 04/18/2018 ASCUS (atypical squamous renetta ls of undetermined significance) on Pap smear 09/24/2013 04/18/2018 Abdominal pain, chronic, generalized 07/04/2013 04/18/2018 Irritable bowel syndrome 03/15/2012 020 Unspecified gastritis and ga stroduodenitis without mention of hemorrhage 07/21/2011 03/15/2012 Acute gastritis without mention of hemorrhage 03/15/2012 Abdominal pain, right upper quadrant 07/11/2011 03/15/2012 Disturbance of skin sensation 01/21/2010 Cervicalgia 01/21/2010 01/03/2011 Abdominal pain, epigastric 10/26/200903/15 Abdominal pain, generalized 10/05/2009 02/0 06/2011 Dysuria 05/21/2009 01/03/2011 Lumbago 03/09/2008 04/18/2018 Pruritus of genital organs 11/21/200601/03 Bipolar disorder, unspecified 07/26/2006 documented as of this encounter (statuses as of 09/26/2022) [facility] of Past illness Narrative* Problem Noted Date Resolved Date TOS (thoracic outlet syndrome) 10/18/2021 0 05/23/2022 Mixed stress and urge urinary incontinence 12/1309/08/2021 Raynaud's phenomenon without gangrene 02/01/2017 12/14/2019 Pain of left thumb 01/20/2015 04/18/2018 Myofascial pain 11/07/2013 04/18/2018 ASCUS (atypical squamous renetta ls of undetermined significance) on Pap smear 09/24/2013 04/18/2018 Abdominal pain, chronic, generalized 07/04/2013 04/18/2018 Irritable bowel syndrome 03/15/2012 020 Unspecified gastritis and ga stroduodenitis without mention of hemorrhage 07/21/2011 03/15/2012 Acute gastritis without mention of hemorrhage 03/15/2012 Abdominal pain, right upper quadrant 07/11/2011 03/15/2012 Disturbance of skin sensation 01/21/2010 Cervicalgia 01/21/2010 01/03/2011 Abdominal pain, epigastric 10/26/200903/15 Abdominal pain, generalized 10/05/2009 02/0 06/2011 Dysuria 05/21/2009 01/03/2011 Lumbago 03/09/2008 04/18/2018 Pruritus of genital organs 11/21/200601/03 Bipolar disorder, unspecified 07/26/2006 documented as of this encounter (statuses as of 10/04/2022) [facility] of Past illness Narrative* Problem Noted Date Resolved Date TOS (thoracic outlet syndrome) 10/18/2021 0 05/23/2022 Mixed stress and urge urinary incontinence 12/1309/08/2021 Raynaud's phenomenon without gangrene 02/01/2017 12/14/2019 Pain of left thumb 01/20/2015 04/18/2018 Myofascial pain 11/07/2013 04/18/2018 ASCUS (atypical squamous renetta ls of undetermined significance) on Pap smear 09/24/2013 04/18/2018 Abdominal pain, chronic, generalized 07/04/2013 04/18/2018 Irritable bowel syndrome 03/15/2012 020 Unspecified gastritis and ga stroduodenitis without mention of hemorrhage 07/21/2011 03/15/2012 Acute gastritis without mention of hemorrhage 03/15/2012 Abdominal pain, right upper quadrant 07/11/2011 03/15/2012 Disturbance of skin sensation 01/21/2010 Cervicalgia 01/21/2010 01/03/2011 Abdominal pain, epigastric 10/26/200903/15 Abdominal pain, generalized 10/05/200906/2011 Dysuria 05/21/2009 01/03/2011 Lumbago 03/09/2008 04/18/2018 Pruritus of genital organs 11/21/200601/03 Bipolar disorder, unspecified 07/26/2006 documented as of this encounter (statuses as of 10/05/2022) [facility]-23-2021 History of Past illness Narrative* Problem Noted Date Resolved Date TOS (thoracic outlet syndrome) 10/18/2021 0 05/23/2022 Mixed stress and urge urinary incontinence 12/1309/08/2021 Raynaud's phenomenon without gangrene 02/01/2017 12/14/2019 Pain of left thumb 01/20/2015 04/18/2018 Myofascial pain 11/07/2013 04/18/2018 ASCUS (atypical squamous renetta ls of undetermined significance) on Pap smear 09/24/2013 04/18/2018 Abdominal pain, chronic, generalized 07/04/2013 04/18/2018 Irritable bowel syndrome 03/15/2012 020 Unspecified gastritis and ga stroduodenitis without mention of hemorrhage 07/21/2011 03/15/2012 Acute gastritis without mention of hemorrhage 03/15/2012 Abdominal pain, right upper quadrant 07/11/2011 03/15/2012 Disturbance of skin sensation 01/21/2010 Cervicalgia 01/21/2010 01/03/2011 Abdominal pain, epigastric 10/26/200903/15 Abdominal pain, generalized 10/05/2009 02/0 06/2011 Dysuria 05/21/2009 01/03/2011 Lumbago 03/09/2008 04/18/2018 Pruritus of genital organs 11/21/200601/03 Bipolar disorder, unspecified 07/26/2006 documented as of this encounter (statuses as of 10/05/2022) [facility] History of Past illness Narrative* Problem Noted Date Resolved Date TOS (thoracic outlet syndrome) 10/18/2021 0 05/23/2022 Mixed stress and urge urinary incontinence 12/1309/08/2021 Raynaud's phenomenon without gangrene 02/01/2017 12/14/2019 Pain of left thumb 01/20/2015 04/18/2018 Myofascial pain 11/07/2013 04/18/2018 ASCUS (atypical squamous renetta ls of undetermined significance) on Pap smear 09/24/2013 04/18/2018 Abdominal pain, chronic, generalized 07/04/2013 04/18/2018 Irritable bowel syndrome 03/15/2012 020 Unspecified gastritis and ga stroduodenitis without mention of hemorrhage 07/21/2011 03/15/2012 Acute gastritis without mention of hemorrhage 03/15/2012 Abdominal pain, right upper quadrant 07/11/2011 03/15/2012 Disturbance of skin sensation 01/21/2010 Cervicalgia 01/21/2010 01/03/2011 Abdominal pain, epigastric 10/26/200903/15 Abdominal pain, generalized 10/05/2009 02/0 06/2011 Dysuria 05/21/2009 01/03/2011 Lumbago 03/09/2008 04/18/2018 Pruritus of genital organs 11/21/200601/03 Bipolar disorder, unspecified 07/26/2006 documented as of this encounter (statuses as of 10/06/2022) [facility] History of Past illness Narrative* Problem Noted Date Resolved Date TOS (thoracic outlet syndrome) 10/18/2021 0 05/23/2022 Mixed stress and urge urinary incontinence 12/1309/08/2021 Raynaud's phenomenon without gangrene 02/01/2017 12/14/2019 Pain of left thumb 01/20/2015 04/18/2018 Myofascial pain 11/07/2013 04/18/2018 ASCUS (atypical squamous renetta ls of undetermined significance) on Pap smear 09/24/2013 04/18/2018 Abdominal pain, chronic, generalized 07/04/2013 04/18/2018 Irritable bowel syndrome 03/15/2012 020 Unspecified gastritis and ga stroduodenitis without mention of hemorrhage 07/21/2011 03/15/2012 Acute gastritis without mention of hemorrhage 03/15/2012 Abdominal pain, right upper quadrant 07/11/2011 03/15/2012 Disturbance of skin sensation 01/21/2010 Cervicalgia 01/21/2010 01/03/2011 Abdominal pain, epigastric 10/26/200903/15 Abdominal pain, generalized 10/05/2009 02/0 06/2011 Dysuria 05/21/2009 01/03/2011 Lumbago 03/09/2008 04/18/2018 Pruritus of genital organs 11/21/200601/03 Bipolar disorder, unspecified 07/26/2006 documented as of this encounter (statuses as of 10/23/2022) [facility] History of Past illness Narrative* Problem Noted Date Resolved Date TOS (thoracic outlet syndrome) 10/18/2021 0 05/23/2022 Mixed stress and urge urinary incontinence 12/1309/08/2021 Raynaud's phenomenon without gangrene 02/01/2017 12/14/2019 Pain of left thumb 01/20/2015 04/18/2018 Myofascial pain 11/07/2013 04/18/2018 ASCUS (atypical squamous renetta ls of undetermined significance) on Pap smear 09/24/2013 04/18/2018 Abdominal pain, chronic, generalized 07/04/2013 04/18/2018 Irritable bowel syndrome 03/15/2012 020 Unspecified gastritis and ga stroduodenitis without mention of hemorrhage 07/21/2011 03/15/2012 Acute gastritis without mention of hemorrhage 03/15/2012 Abdominal pain, right upper quadrant 07/11/2011 03/15/2012 Disturbance of skin sensation 01/21/2010 Cervicalgia 01/21/2010 01/03/2011 Abdominal pain, epigastric 10/26/200903/15 Abdominal pain, generalized 10/05/2009 02/0 06/2011 Dysuria 05/21/2009 01/03/2011 Lumbago 03/09/2008 04/18/2018 Pruritus of genital organs 11/21/200601/03 Bipolar disorder, unspecified 07/26/2006 documented as of this encounter (statuses as of 11/03/2022) [facility] History of Past illness Narrative* Problem Noted Date Resolved Date TOS (thoracic outlet syndrome) 10/18/2021 0 05/23/2022 Mixed stress and urge urinary incontinence 12/1309/08/2021 Raynaud's phenomenon without gangrene 02/01/2017 12/14/2019 Pain of left thumb 01/20/2015 04/18/2018 Myofascial pain 11/07/2013 04/18/2018 ASCUS (atypical squamous renetta ls of undetermined significance) on Pap smear 09/24/2013 04/18/2018 Abdominal pain, chronic, generalized 07/04/2013 04/18/2018 Irritable bowel syndrome 03/15/2012 020 Unspecified gastritis and ga stroduodenitis without mention of hemorrhage 07/21/2011 03/15/2012 Acute gastritis without mention of hemorrhage 03/15/2012 Abdominal pain, right upper quadrant 07/11/2011 03/15/2012 Disturbance of skin sensation 01/21/2010 Cervicalgia 01/21/2010 01/03/2011 Abdominal pain, epigastric 10/26/200903/15 Abdominal pain, generalized 10/05/2009 02/0 06/2011 Dysuria 05/21/2009 01/03/2011 Lumbago 03/09/2008 04/18/2018 Pruritus of genital organs 11/21/200601/03 Bipolar disorder, unspecified 07/26/2006 documented as of this encounter (statuses as of 11/09/2022) [facility] History of Past illness Narrative* Problem Noted Date Resolved Date TOS (thoracic outlet syndrome) 10/18/2021 0 05/23/2022 Mixed stress and urge urinary incontinence 12/1309/08/2021 Raynaud's phenomenon without gangrene 02/01/2017 12/14/2019 Pain of left thumb 01/20/2015 04/18/2018 Myofascial pain 11/07/2013 04/18/2018 ASCUS (atypical squamous renetta ls of undetermined significance) on Pap smear 09/24/2013 04/18/2018 Abdominal pain, chronic, generalized 07/04/2013 04/18/2018 Irritable bowel syndrome 03/15/2012 020 Unspecified gastritis and ga stroduodenitis without mention of hemorrhage 07/21/2011 03/15/2012 Acute gastritis without mention of hemorrhage 03/15/2012 Abdominal pain, right upper quadrant 07/11/2011 03/15/2012 Disturbance of skin sensation 01/21/2010 Cervicalgia 01/21/2010 01/03/2011 Abdominal pain, epigastric 10/26/200903/15 Abdominal pain, generalized 10/05/2009 02/0 06/2011 Dysuria 05/21/2009 01/03/2011 Lumbago 03/09/2008 04/18/2018 Pruritus of genital organs 11/21/200601/03 Bipolar disorder, unspecified 07/26/2006 documented as of this encounter (statuses as of 12/02/2022) [facility] History of Past illness Narrative* Problem Noted Date Resolved Date TOS (thoracic outlet syndrome) 10/18/2021 0 05/23/2022 Mixed stress and urge urinary incontinence 12/1309/08/2021 Raynaud's phenomenon without gangrene 02/01/2017 12/14/2019 Pain of left thumb 01/20/2015 04/18/2018 Myofascial pain 11/07/2013 04/18/2018 ASCUS (atypical squamous renetta ls of undetermined significance) on Pap smear 09/24/2013 04/18/2018 Abdominal pain, chronic, generalized 07/04/2013 04/18/2018 Irritable bowel syndrome 03/15/2012 020 Unspecified gastritis and ga stroduodenitis without mention of hemorrhage 07/21/2011 03/15/2012 Acute gastritis without mention of hemorrhage 03/15/2012 Abdominal pain, right upper quadrant 07/11/2011 03/15/2012 Disturbance of skin sensation 01/21/2010 Cervicalgia 01/21/2010 01/03/2011 Abdominal pain, epigastric 10/26/200903/15 Abdominal pain, generalized 10/05/2009 02/0 06/2011 Dysuria 05/21/2009 01/03/2011 Lumbago 03/09/2008 04/18/2018 Pruritus of genital organs 11/21/200601/03 Bipolar disorder, unspecified 07/26/2006 documented as of this encounter (statuses as of 12/03/2022) [facility] History of Past illness Narrative* Problem Noted Date Resolved Date TOS (thoracic outlet syndrome) 10/18/2021 0 05/23/2022 Mixed stress and urge urinary incontinence 12/1309/08/2021 Raynaud's phenomenon without gangrene 02/01/2017 12/14/2019 Pain of left thumb 01/20/2015 04/18/2018 Myofascial pain 11/07/2013 04/18/2018 ASCUS (atypical squamous renetta ls of undetermined significance) on Pap smear 09/24/2013 04/18/2018 Abdominal pain, chronic, generalized 07/04/2013 04/18/2018 Irritable bowel syndrome 03/15/2012 020 Unspecified gastritis and ga stroduodenitis without mention of hemorrhage 07/21/2011 03/15/2012 Acute gastritis without mention of hemorrhage 03/15/2012 Abdominal pain, right upper quadrant 07/11/2011 03/15/2012 Disturbance of skin sensation 01/21/2010 Cervicalgia 01/21/2010 01/03/2011 Abdominal pain, epigastric 10/26/200903/15 Abdominal pain, generalized 10/05/2009 02/0 06/2011 Dysuria 05/21/2009 01/03/2011 Lumbago 03/09/2008 04/18/2018 Pruritus of genital organs 11/21/200601/03 Bipolar disorder, unspecified 07/26/2006 documented as of this encounter (statuses as of 12/06/2022) [facility] History of Past illness Narrative* Problem Noted Date Resolved Date TOS (thoracic outlet syndrome) 10/18/2021 0 05/23/2022 Mixed stress and urge urinary incontinence 12/1309/08/2021 Raynaud's phenomenon without gangrene 02/01/2017 12/14/2019 Pain of left thumb 01/20/2015 04/18/2018 Myofascial pain 11/07/2013 04/18/2018 ASCUS (atypical squamous renetta ls of undetermined significance) on Pap smear 09/24/2013 04/18/2018 Abdominal pain, chronic, generalized 07/04/2013 04/18/2018 Irritable bowel syndrome 03/15/2012 020 Unspecified gastritis and ga stroduodenitis without mention of hemorrhage 07/21/2011 03/15/2012 Acute gastritis without mention of hemorrhage 03/15/2012 Abdominal pain, right upper quadrant 07/11/2011 03/15/2012 Disturbance of skin sensation 01/21/2010 Cervicalgia 01/21/2010 01/03/2011 Abdominal pain, epigastric 10/26/200903/15 Abdominal pain, generalized 10/05/2009/06/2011 Dysuria 05/21/2009 01/03/2011 Lumbago 03/09/2008 04/18/2018 Pruritus of genital organs 11/21/200601/03 Bipolar disorder, unspecified 07/26/2006 documented as of this encounter (statuses as of 12/06/2022) [facility] History of Past illness Narrative* Problem Noted Date Resolved Date TOS (thoracic outlet syndrome) 10/18/2021 0 05/23/2022 Mixed stress and urge urinary incontinence 12/1309/08/2021 Raynaud's phenomenon without gangrene 02/01/2017 12/14/2019 Pain of left thumb 01/20/2015 04/18/2018 Myofascial pain 11/07/2013 04/18/2018 ASCUS (atypical squamous renetta ls of undetermined significance) on Pap smear 09/24/2013 04/18/2018 Abdominal pain, chronic, generalized 07/04/2013 04/18/2018 Irritable bowel syndrome 03/15/2012 020 Unspecified gastritis and ga stroduodenitis without mention of hemorrhage 07/21/2011 03/15/2012 Acute gastritis without mention of hemorrhage 03/15/2012 Abdominal pain, right upper quadrant 07/11/2011 03/15/2012 Disturbance of skin sensation 01/21/2010 Cervicalgia 01/21/2010 01/03/2011 Abdominal pain, epigastric 10/26/200903/15 Abdominal pain, generalized 10/05/2009 02/0 06/2011 Dysuria 05/21/2009 01/03/2011 Lumbago 03/09/2008 04/18/2018 Pruritus of genital organs 11/21/200601/03 Bipolar disorder, unspecified 07/26/2006 documented as of this encounter (statuses as of 12/06/2022) [facility] History of Past illness Narrative* Problem Noted Date Resolved Date TOS (thoracic outlet syndrome) 10/18/2021 0 05/23/2022 Mixed stress and urge urinary incontinence 12/1309/08/2021 Raynaud's phenomenon without gangrene 02/01/2017 12/14/2019 Pain of left thumb 01/20/2015 04/18/2018 Myofascial pain 11/07/2013 04/18/2018 ASCUS (atypical squamous renetta ls of undetermined significance) on Pap smear 09/24/2013 04/18/2018 Abdominal pain, chronic, generalized 07/04/2013 04/18/2018 Irritable bowel syndrome 03/15/2012 020 Unspecified gastritis and ga stroduodenitis without mention of hemorrhage 07/21/2011 03/15/2012 Acute gastritis without mention of hemorrhage 03/15/2012 Abdominal pain, right upper quadrant 07/11/2011 03/15/2012 Disturbance of skin sensation 01/21/2010 Cervicalgia 01/21/2010 01/03/2011 Abdominal pain, epigastric 10/26/200903/15 Abdominal pain, generalized 10/05/2009 02/0 06/2011 Dysuria 05/21/2009 01/03/2011 Lumbago 03/09/2008 04/18/2018 Pruritus of genital organs 11/21/200601/03 Bipolar disorder, unspecified 07/26/2006 documented as of this encounter (statuses as of 12/08/2022) [facility] History of Past illness Narrative* Problem Noted Date Resolved Date TOS (thoracic outlet syndrome) 10/18/2021 0 05/23/2022 Mixed stress and urge urinary incontinence 12/1309/08/2021 Raynaud's phenomenon without gangrene 02/01/2017 12/14/2019 Pain of left thumb 01/20/2015 04/18/2018 Myofascial pain 11/07/2013 04/18/2018 ASCUS (atypical squamous renetta ls of undetermined significance) on Pap smear 09/24/2013 04/18/2018 Abdominal pain, chronic, generalized 07/04/2013 04/18/2018 Irritable bowel syndrome 03/15/2012 020 Unspecified gastritis and ga stroduodenitis without mention of hemorrhage 07/21/2011 03/15/2012 Acute gastritis without mention of hemorrhage 03/15/2012 Abdominal pain, right upper quadrant 07/11/2011 03/15/2012 Disturbance of skin sensation 01/21/2010 Cervicalgia 01/21/2010 01/03/2011 Abdominal pain, epigastric 10/26/200903/15 Abdominal pain, generalized 10/05/2009 02/0 06/2011 Dysuria 05/21/2009 01/03/2011 Lumbago 03/09/2008 04/18/2018 Pruritus of genital organs 11/21/200601/03 Bipolar disorder, unspecified 07/26/2006 documented as of this encounter (statuses as of 12/11/2022) [facility] History of Past illness Narrative* Problem Noted Date Resolved Date TOS (thoracic outlet syndrome) 10/18/2021 0 05/23/2022 Mixed stress and urge urinary incontinence 12/1309/08/2021 Raynaud's phenomenon without gangrene 02/01/2017 12/14/2019 Pain of left thumb 01/20/2015 04/18/2018 Myofascial pain 11/07/2013 04/18/2018 ASCUS (atypical squamous renetta ls of undetermined significance) on Pap smear 09/24/2013 04/18/2018 Abdominal pain, chronic, generalized 07/04/2013 04/18/2018 Irritable bowel syndrome 03/15/2012 020 Unspecified gastritis and ga stroduodenitis without mention of hemorrhage 07/21/2011 03/15/2012 Acute gastritis without mention of hemorrhage 03/15/2012 Abdominal pain, right upper quadrant 07/11/2011 03/15/2012 Disturbance of skin sensation 01/21/2010 Cervicalgia 01/21/2010 01/03/2011 Abdominal pain, epigastric 10/26/200903/15 Abdominal pain, generalized 10/05/2009 02/06/2011 Dysuria 05/21/2009 01/03/2011 Lumbago 03/09/2008 04/18/2018 Pruritus of genital organs 11/21/200601/03 Bipolar disorder, unspecified 07/26/2006 documented as of this encounter (statuses as of 12/25/2022) [facility] History of Past illness Narrative* Problem Noted Date Resolved Date TOS (thoracic outlet syndrome) 10/18/2021 0 05/23/2022 Mixed stress and urge urinary incontinence 12/1309/08/2021 Raynaud's phenomenon without gangrene 02/01/2017 12/14/2019 Pain of left thumb 01/20/2015 04/18/2018 Myofascial pain 11/07/2013 04/18/2018 ASCUS (atypical squamous renetta ls of undetermined significance) on Pap smear 09/24/2013 04/18/2018 Abdominal pain, chronic, generalized 07/04/2013 04/18/2018 Irritable bowel syndrome 03/15/2012 020 Unspecified gastritis and ga stroduodenitis without mention of hemorrhage 07/21/2011 03/15/2012 Acute gastritis without mention of hemorrhage 03/15/2012 Abdominal pain, right upper quadrant 07/11/2011 03/15/2012 Disturbance of skin sensation 01/21/2010 Cervicalgia 01/21/2010 01/03/2011 Abdominal pain, epigastric 10/26/200903/15 Abdominal pain, generalized 10/05/20090 06/2011 Dysuria 05/21/2009 01/03/2011 Lumbago 03/09/2008 04/18/2018 Pruritus of genital organs 11/21/200601/03 Bipolar disorder, unspecified 07/26/2006 documented as of this encounter (statuses as of 12/28/2022) [facility] History of Past illness Narrative* Problem Noted Date Resolved Date TOS (thoracic outlet syndrome) 10/18/2021 0 05/23/2022 Mixed stress and urge urinary incontinence 12/1309/08/2021 Raynaud's phenomenon without gangrene 02/01/2017 12/14/2019 Pain of left thumb 01/20/2015 04/18/2018 Myofascial pain 11/07/2013 04/18/2018 ASCUS (atypical squamous renetta ls of undetermined significance) on Pap smear 09/24/2013 04/18/2018 Abdominal pain, chronic, generalized 07/04/2013 04/18/2018 Irritable bowel syndrome 03/15/2012 020 Unspecified gastritis and ga stroduodenitis without mention of hemorrhage 07/21/2011 03/15/2012 Acute gastritis without mention of hemorrhage 03/15/2012 Abdominal pain, right upper quadrant 07/11/2011 03/15/2012 Disturbance of skin sensation 01/21/2010 Cervicalgia 01/21/2010 01/03/2011 Abdominal pain, epigastric 10/26/200903/15 Abdominal pain, generalized 10/05/20090 06/2011 Dysuria 05/21/2009 01/03/2011 Lumbago 03/09/2008 04/18/2018 Pruritus of genital organs 11/21/200601/03 Bipolar disorder, unspecified 07/26/2006 documented as of this encounter (statuses as of 12/28/2022) [facility] History of Past illness Narrative* Problem Noted Date Resolved Date TOS (thoracic outlet syndrome) 10/18/2021 0 05/23/2022 Mixed stress and urge urinary incontinence 12/1309/08/2021 Raynaud's phenomenon without gangrene 02/01/2017 12/14/2019 Pain of left thumb 01/20/2015 04/18/2018 Myofascial pain 11/07/2013 04/18/2018 ASCUS (atypical squamous renetta ls of undetermined significance) on Pap smear 09/24/2013 04/18/2018 Abdominal pain, chronic, generalized 07/04/2013 04/18/2018 Irritable bowel syndrome 03/15/2012 020 Unspecified gastritis and ga stroduodenitis without mention of hemorrhage 07/21/2011 03/15/2012 Acute gastritis without mention of hemorrhage 03/15/2012 Abdominal pain, right upper quadrant 07/11/2011 03/15/2012 Disturbance of skin sensation 01/21/2010 Cervicalgia 01/21/2010 01/03/2011 Abdominal pain, epigastric 10/26/200903/15 Abdominal pain, generalized 10/05/2009 02/06/2011 Dysuria 05/21/2009 01/03/2011 Lumbago 03/09/2008 04/18/2018 Pruritus of genital organs 11/21/200601/03 Bipolar disorder, unspecified 07/26/2006 documented as of this encounter (statuses as of 12/29/2022) [facility] History of Past illness Narrative* Problem Noted Date Resolved Date TOS (thoracic outlet syndrome) 10/18/2021 0 05/23/2022 Mixed stress and urge urinary incontinence 12/1309/08/2021 Raynaud's phenomenon without gangrene 02/01/2017 12/14/2019 Pain of left thumb 01/20/2015 04/18/2018 Myofascial pain 11/07/2013 04/18/2018 ASCUS (atypical squamous renetta ls of undetermined significance) on Pap smear 09/24/2013 04/18/2018 Abdominal pain, chronic, generalized 07/04/2013 04/18/2018 Irritable bowel syndrome 03/15/2012 020 Unspecified gastritis and ga stroduodenitis without mention of hemorrhage 07/21/2011 03/15/2012 Acute gastritis without mention of hemorrhage 03/15/2012 Abdominal pain, right upper quadrant 07/11/2011 03/15/2012 Disturbance of skin sensation 01/21/2010 Cervicalgia 01/21/2010 01/03/2011 Abdominal pain, epigastric 10/26/200903/15 Abdominal pain, generalized 10/05/2009 02/0 06/2011 Dysuria 05/21/2009 01/03/2011 Lumbago 03/09/2008 04/18/2018 Pruritus of genital organs 11/21/200601/03 Bipolar disorder, unspecified 07/26/2006 documented as of this encounter (statuses as of 12/29/2022) [facility] History of Past illness Narrative* Problem Noted Date Resolved Date TOS (thoracic outlet syndrome) 10/18/2021 0 05/23/2022 Mixed stress and urge urinary incontinence 12/1309/08/2021 Raynaud's phenomenon without gangrene 02/01/2017 12/14/2019 Pain of left thumb 01/20/2015 04/18/2018 Myofascial pain 11/07/2013 04/18/2018 ASCUS (atypical squamous renetta ls of undetermined significance) on Pap smear 09/24/2013 04/18/2018 Abdominal pain, chronic, generalized 07/04/2013 04/18/2018 Irritable bowel syndrome 03/15/2012 020 Unspecified gastritis and ga stroduodenitis without mention of hemorrhage 07/21/2011 03/15/2012 Acute gastritis without mention of hemorrhage 03/15/2012 Abdominal pain, right upper quadrant 07/11/2011 03/15/2012 Disturbance of skin sensation 01/21/2010 Cervicalgia 01/21/2010 01/03/2011 Abdominal pain, epigastric 10/26/200903/15 Abdominal pain, generalized 10/05/2009 02/0 06/2011 Dysuria 05/21/2009 01/03/2011 Lumbago 03/09/2008 04/18/2018 Pruritus of genital organs 11/21/200601/03 Bipolar disorder, unspecified 07/26/2006 documented as of this encounter (statuses as of 01/29/2023) [facility] History of Past illness Narrative* Problem Noted Date Resolved Date TOS (thoracic outlet syndrome) 10/18/2021 0 05/23/2022 Mixed stress and urge urinary incontinence 12/1309/08/2021 Raynaud's phenomenon without gangrene 02/01/2017 12/14/2019 Pain of left thumb 01/20/2015 04/18/2018 Myofascial pain 11/07/2013 04/18/2018 ASCUS (atypical squamous renetta ls of undetermined significance) on Pap smear 09/24/2013 04/18/2018 Abdominal pain, chronic, generalized 07/04/2013 04/18/2018 Irritable bowel syndrome 03/15/2012 020 Unspecified gastritis and ga stroduodenitis without mention of hemorrhage 07/21/2011 03/15/2012 Acute gastritis without mention of hemorrhage 03/15/2012 Abdominal pain, right upper quadrant 07/11/2011 03/15/2012 Disturbance of skin sensation 01/21/2010 Cervicalgia 01/21/2010 01/03/2011 Abdominal pain, epigastric 10/26/200903/15 Abdominal pain, generalized 10/05/2009 02/06/2011 Dysuria 05/21/2009 01/03/2011 Lumbago 03/09/2008 04/18/2018 Pruritus of genital organs 11/21/200601/03 Bipolar disorder, unspecified 07/26/2006 documented as of this encounter (statuses as of 02/07/2023) [facility] History of Past illness Narrative* Problem Noted Date Resolved Date TOS (thoracic outlet syndrome) 10/18/2021 0 05/23/2022 Mixed stress and urge urinary incontinence 12/1309/08/2021 Raynaud's phenomenon without gangrene 02/01/2017 12/14/2019 Pain of left thumb 01/20/2015 04/18/2018 Myofascial pain 11/07/2013 04/18/2018 ASCUS (atypical squamous renetta ls of undetermined significance) on Pap smear 09/24/2013 04/18/2018 Abdominal pain, chronic, generalized 07/04/2013 04/18/2018 Irritable bowel syndrome 03/15/2012 020 Unspecified gastritis and ga stroduodenitis without mention of hemorrhage 07/21/2011 03/15/2012 Acute gastritis without mention of hemorrhage 03/15/2012 Abdominal pain, right upper quadrant 07/11/2011 03/15/2012 Disturbance of skin sensation 01/21/2010 Cervicalgia 01/21/2010 01/03/2011 Abdominal pain, epigastric 10/26/200903/15 Abdominal pain, generalized 10/05/2009 02/0 06/2011 Dysuria 05/21/2009 01/03/2011 Lumbago 03/09/2008 04/18/2018 Pruritus of genital organs 11/21/200601/03 Bipolar disorder, unspecified 07/26/2006 documented as of this encounter (statuses as of 02/20/2023) [facility] History of Past illness Narrative* Problem Noted Date Resolved Date TOS (thoracic outlet syndrome) 10/18/2021 0 05/23/2022 Mixed stress and urge urinary incontinence 12/1309/08/2021 Raynaud's phenomenon without gangrene 02/01/2017 12/14/2019 Pain of left thumb 01/20/2015 04/18/2018 Myofascial pain 11/07/2013 04/18/2018 ASCUS (atypical squamous renetta ls of undetermined significance) on Pap smear 09/24/2013 04/18/2018 Abdominal pain, chronic, generalized 07/04/2013 04/18/2018 Irritable bowel syndrome 03/15/2012 020 Unspecified gastritis and ga stroduodenitis without mention of hemorrhage 07/21/2011 03/15/2012 Acute gastritis without mention of hemorrhage 03/15/2012 Abdominal pain, right upper quadrant 07/11/2011 03/15/2012 Disturbance of skin sensation 01/21/2010 Cervicalgia 01/21/2010 01/03/2011 Abdominal pain, epigastric 10/26/200903/15 Abdominal pain, generalized 10/05/2009 02/0 06/2011 Dysuria 05/21/2009 01/03/2011 Lumbago 03/09/2008 04/18/2018 Pruritus of genital organs 11/21/200601/03 Bipolar disorder, unspecified 07/26/2006 documented as of this encounter (statuses as of 02/20/2023) [facility]21 History of Past illness Narrative* Problem Noted Date Resolved Date TOS (thoracic outlet syndrome) 10/18/2021 0 05/23/2022 Mixed stress and urge urinary incontinence 12/1309/08/2021 Raynaud's phenomenon without gangrene 02/01/2017 12/14/2019 Pain of left thumb 01/20/2015 04/18/2018 Myofascial pain 11/07/2013 04/18/2018 ASCUS (atypical squamous renetta ls of undetermined significance) on Pap smear 09/24/2013 04/18/2018 Abdominal pain, chronic, generalized 07/04/2013 04/18/2018 Irritable bowel syndrome 03/15/2012 020 Unspecified gastritis and ga stroduodenitis without mention of hemorrhage 07/21/2011 03/15/2012 Acute gastritis without mention of hemorrhage 03/15/2012 Abdominal pain, right upper quadrant 07/11/2011 03/15/2012 Disturbance of skin sensation 01/21/2010 Cervicalgia 01/21/2010 01/03/2011 Abdominal pain, epigastric 10/26/200903/15 Abdominal pain, generalized 10/05/2009 02/0 06/2011 Dysuria 05/21/2009 01/03/2011 Lumbago 03/09/2008 04/18/2018 Pruritus of genital organs 11/21/200601/03 Bipolar disorder, unspecified 07/26/2006 documented as of this encounter (statuses as of 02/23/2023) [facility] History of Past illness Narrative* Problem Noted Date Resolved Date TOS (thoracic outlet syndrome) 10/18/2021 0 05/23/2022 Thoracic outlet syndrome 06/14/2020 023 Mixed stress and urge urinary incontinence 12/1309/08/2021 Raynaud's phenomenon without gangrene 02/01/2017 12/14/2019 Pain of left thumb 01/20/2015 04/18/2018 Myofascial pain 11/07/2013 04/18/2018 ASCUS (atypical squamous renetta ls of undetermined significance) on Pap smear 09/24/2013 04/18/2018 Abdominal pain, chronic, generalized 07/04/2013 04/18/2018 Irritable bowel syndrome 03/15/2012 020 Unspecified gastritis and ga stroduodenitis without mention of hemorrhage 07/21/2011 03/15/2012 Acute gastritis without mention of hemorrhage 03/15/2012 Abdominal pain, right upper quadrant 07/11/2011 03/15/2012 Disturbance of skin sensation 01/21/2010 Cervicalgia 01/21/2010 01/03/2011 Abdominal pain, epigastric 10/26/200903/15 Abdominal pain, generalized 10/05/2009 02/0 06/2011 Dysuria 05/21/2009 01/03/2011 Lumbago 03/09/2008 04/18/2018 Pruritus of genital organs 11/21/200601/03 Bipolar disorder, unspecified 07/26/2006 documented as of this encounter (statuses as of 03/13/2023) [facility] History of Past illness Narrative* Problem Noted Date Resolved Date TOS (thoracic outlet syndrome) 10/18/2021 0 05/23/2022 Thoracic outlet syndrome 06/14/2020 023 Mixed stress and urge urinary incontinence 12/1309/08/2021 Raynaud's phenomenon without gangrene 02/01/2017 12/14/2019 Pain of left thumb 01/20/2015 04/18/2018 Myofascial pain 11/07/2013 04/18/2018 ASCUS (atypical squamous renetta ls of undetermined significance) on Pap smear 09/24/2013 04/18/2018 Abdominal pain, chronic, generalized 07/04/2013 04/18/2018 Irritable bowel syndrome 03/15/2012 020 Unspecified gastritis and ga stroduodenitis without mention of hemorrhage 07/21/2011 03/15/2012 Acute gastritis without mention of hemorrhage 03/15/2012 Abdominal pain, right upper quadrant 07/11/2011 03/15/2012 Disturbance of skin sensation 01/21/2010 Cervicalgia 01/21/2010 01/03/2011 Abdominal pain, epigastric 10/26/200903/15 Abdominal pain, generalized 10/05/2009 02/0 06/2011 Dysuria 05/21/2009 01/03/2011 Lumbago 03/09/2008 04/18/2018 Pruritus of genital organs 11/21/200601/03 Bipolar disorder, unspecified 07/26/2006 documented as of this encounter (statuses as of 04/06/2023) [facility] History of Past illness Narrative* Problem Noted Date Resolved Date TOS (thoracic outlet syndrome) 10/18/2021 0 05/23/2022 Thoracic outlet syndrome 06/14/2020 023 Mixed stress and urge urinary incontinence 12/1309/08/2021 Raynaud's phenomenon without gangrene 02/01/2017 12/14/2019 Pain of left thumb 01/20/2015 04/18/2018 Myofascial pain 11/07/2013 04/18/2018 ASCUS (atypical squamous renetta ls of undetermined significance) on Pap smear 09/24/2013 04/18/2018 Abdominal pain, chronic, generalized 07/04/2013 04/18/2018 Irritable bowel syndrome 03/15/2012 020 Unspecified gastritis and ga stroduodenitis without mention of hemorrhage 07/21/2011 03/15/2012 Acute gastritis without mention of hemorrhage 03/15/2012 Abdominal pain, right upper quadrant 07/11/2011 03/15/2012 Disturbance of skin sensation 01/21/2010 Cervicalgia 01/21/2010 01/03/2011 Abdominal pain, epigastric 10/26/200903/15 Abdominal pain, generalized 10/05/2009 02/0 06/2011 Dysuria 05/21/2009 01/03/2011 Lumbago 03/09/2008 04/18/2018 Pruritus of genital organs 11/21/200601/03 Bipolar disorder, unspecified 07/26/2006 documented as of this encounter (statuses as of 05/29/2023) [facility] History of Past illness Narrative* Problem Noted Date Diagnosed Date Resolved Date TOS (thoracic outlet syndrome) 10/18/2021 05/23/2022 Thoracic outlet syndrome 06/14/2020 Mixed stress and urge urinary incontinence 12/13/2019 09/08/2021 Raynaud's phenomenon without gangrene 02/01/2017 12/14/2019 Pain of left thumb 01/20/2015 8 Myofascial pain 11/07/2013 04/18/2018 ASCUS (atypical squamous renetta ls of undetermined significance) on Pap smear 09/24/2013 04/18/2018 Abdominal pain, chronic, generalized 07/04/2013 04/18/2018 Irritable bowel syndrome 03/15/201205/2020 Unspecified gastritis and ga stroduodenitis without mention of hemorrhage 07/21/2011 03/15/2012 Acute gastritis without mention of hemorrhage 07/21/20 11 03/15/2012 Abdominal pain, right upper quadrant 07/11/2011 03/15/2012 Disturbance of skin sensation 01/21/2010 01/03/2011 Cervicalgia 01/21/2010 01/03/2011 Abdominal pain, epigastric 10/26/2009 0 03/15/2012 Abdominal pain, generalized 10/05/2009 01/03/2011 Dysuria 05/21/2009 01/03/2011 Lumbago 03/09/2008 04/18/2018 Pruritus of genital organs 11/21/2006 0 01/03/2011 Bipolar disorder, unspecified 07/26/2006 09/01/2020 documented as of this encounter (statuses as of 06/02/2023) [facility] History of Past illness Narrative* Problem Noted Date Diagnosed Date Resolved Date TOS (thoracic outlet syndrome) 10/18/2021 05/23/2022 Thoracic outlet syndrome 06/14/2020 Mixed stress and urge urinary incontinence 12/13/2019 09/08/2021 Raynaud's phenomenon without gangrene 02/01/2017 12/14/2019 Pain of left thumb 01/20/2015 8 Myofascial pain 11/07/2013 04/18/2018 ASCUS (atypical squamous renetta ls of undetermined significance) on Pap smear 09/24/2013 04/18/2018 Abdominal pain, chronic, generalized 07/04/2013 04/18/2018 Irritable bowel syndrome 03/15/201205/2020 Unspecified gastritis and ga stroduodenitis without mention of hemorrhage 07/21/2011 03/15/2012 Acute gastritis without mention of hemorrhage 07/21/20 11 03/15/2012 Abdominal pain, right upper quadrant 07/11/2011 03/15/2012 Disturbance of skin sensation 01/21/2010 01/03/2011 Cervicalgia 01/21/2010 01/03/2011 Abdominal pain, epigastric 10/26/2009 0 03/15/2012 Abdominal pain, generalized 10/05/2009 01/03/2011 Dysuria 05/21/2009 01/03/2011 Lumbago 03/09/2008 04/18/2018 Pruritus of genital organs 11/21/2006 0 01/03/2011 Bipolar disorder, unspecified 07/26/2006 09/01/2020 documented as of this encounter (statuses as of 07/10/2023) [facility] History of Past illness Narrative* Problem Noted Date Diagnosed Date Resolved Date TOS (thoracic outlet syndrome) 10/18/2021 05/23/2022 Thoracic outlet syndrome 06/14/2020 Mixed stress and urge urinary incontinence 12/13/2019 09/08/2021 Raynaud's phenomenon without gangrene 02/01/2017 12/14/2019 Pain of left thumb 01/20/2015 8 Myofascial pain 11/07/2013 04/18/2018 ASCUS (atypical squamous renetta ls of undetermined significance) on Pap smear 09/24/2013 04/18/2018 Abdominal pain, chronic, generalized 07/04/2013 04/18/2018 Irritable bowel syndrome 03/15/201205/2020 Unspecified gastritis and ga stroduodenitis without mention of hemorrhage 07/21/2011 03/15/2012 Acute gastritis without mention of hemorrhage 07/21/20 11 03/15/2012 Abdominal pain, right upper quadrant 07/11/2011 03/15/2012 Disturbance of skin sensation 01/21/2010 01/03/2011 Cervicalgia 01/21/2010 01/03/2011 Abdominal pain, epigastric 10/26/2009 0 03/15/2012 Abdominal pain, generalized 10/05/2009 01/03/2011 Dysuria 05/21/2009 01/03/2011 Lumbago 03/09/2008 04/18/2018 Pruritus of genital organs 11/21/2006 0 01/03/2011 Bipolar disorder, unspecified 07/26/2006 09/01/2020 documented as of this encounter (statuses as of 09/21/2023) [facility] History of Past illness Narrative* Problem Noted Date Diagnosed Date Resolved Date TOS (thoracic outlet syndrome) 10/18/2021 05/23/2022 Thoracic outlet syndrome 06/14/2020 Mixed stress and urge urinary incontinence 12/13/2019 09/08/2021 Raynaud's phenomenon without gangrene 02/01/2017 12/14/2019 Pain of left thumb 01/20/2015 8 Myofascial pain 11/07/2013 04/18/2018 ASCUS (atypical squamous renetta ls of undetermined significance) on Pap smear 09/24/2013 04/18/2018 Abdominal pain, chronic, generalized 07/04/2013 04/18/2018 Irritable bowel syndrome 03/15/201205/2020 Unspecified gastritis and ga stroduodenitis without mention of hemorrhage 07/21/2011 03/15/2012 Acute gastritis without mention of hemorrhage 07/21/20 11 03/15/2012 Abdominal pain, right upper quadrant 07/11/2011 03/15/2012 Disturbance of skin sensation 01/21/2010 01/03/2011 Cervicalgia 01/21/2010 01/03/2011 Abdominal pain, epigastric 10/26/2009 0 03/15/2012 Abdominal pain, generalized 10/05/2009 01/03/2011 Dysuria 05/21/2009 01/03/2011 Lumbago 03/09/2008 04/18/2018 Pruritus of genital organs 11/21/2006 0 01/03/2011 Bipolar disorder, unspecified 07/26/2006 09/01/2020 documented as of this encounter (statuses as of 10/01/2023) [facility] History of Past illness Narrative* Problem Noted Date Diagnosed Date Resolved Date TOS (thoracic outlet syndrome) 10/18/2021 05/23/2022 Thoracic outlet syndrome 06/14/2020 Mixed stress and urge urinary incontinence 12/13/2019 09/08/2021 Raynaud's phenomenon without gangrene 02/01/2017 12/14/2019 Pain of left thumb 01/20/2015 8 Myofascial pain 11/07/2013 04/18/2018 ASCUS (atypical squamous renetta ls of undetermined significance) on Pap smear 09/24/2013 04/18/2018 Abdominal pain, chronic, generalized 07/04/2013 04/18/2018 Irritable bowel syndrome 03/15/201205/2020 Unspecified gastritis and ga stroduodenitis without mention of hemorrhage 07/21/2011 03/15/2012 Acute gastritis without mention of hemorrhage 07/21/20 11 03/15/2012 Abdominal pain, right upper quadrant 07/11/2011 03/15/2012 Disturbance of skin sensation 01/21/2010 01/03/2011 Cervicalgia 01/21/2010 01/03/2011 Abdominal pain, epigastric 10/26/2009 0 03/15/2012 Abdominal pain, generalized 10/05/2009 01/03/2011 Dysuria 05/21/2009 01/03/2011 Lumbago 03/09/2008 04/18/2018 Pruritus of genital organs 11/21/2006 0 01/03/2011 Bipolar disorder, unspecified 07/26/2006 09/01/2020 documented as of this encounter (statuses as of 10/02/2023) [facility] History of Past illness Narrative* Problem Noted Date Diagnosed Date Resolved Date TOS (thoracic outlet syndrome) 10/18/2021 05/23/2022 Thoracic outlet syndrome 06/14/2020 Mixed stress and urge urinary incontinence 12/13/2019 09/08/2021 Raynaud's phenomenon without gangrene 02/01/2017 12/14/2019 Pain of left thumb 01/20/2015 8 Myofascial pain 11/07/2013 04/18/2018 ASCUS (atypical squamous renetta ls of undetermined significance) on Pap smear 09/24/2013 04/18/2018 Abdominal pain, chronic, generalized 07/04/2013 04/18/2018 Irritable bowel syndrome 03/15/201205/2020 Unspecified gastritis and ga stroduodenitis without mention of hemorrhage 07/21/2011 03/15/2012 Acute gastritis without mention of hemorrhage 07/21/20 11 03/15/2012 Abdominal pain, right upper quadrant 07/11/2011 03/15/2012 Disturbance of skin sensation 01/21/2010 01/03/2011 Cervicalgia 01/21/2010 01/03/2011 Abdominal pain, epigastric 10/26/2009 0 03/15/2012 Abdominal pain, generalized 10/05/2009 01/03/2011 Dysuria 05/21/2009 01/03/2011 Lumbago 03/09/2008 04/18/2018 Pruritus of genital organs 11/21/2006 0 01/03/2011 Bipolar disorder, unspecified 07/26/2006 09/01/2020 documented as of this encounter (statuses as of 10/03/2023) [facility] History of Past illness Narrative* Problem Noted Date Resolved Date Mixed stress and urge urinary incontinence 12/1309/08/2021 Raynaud's phenomenon without gangrene 02/01/2017 12/14/2019 Pain of left thumb 01/20/2015 04/18/2018 Myofascial pain 11/07/2013 04/18/2018 ASCUS (atypical squamous renetta ls of undetermined significance) on Pap smear 09/24/2013 04/18/2018 Abdominal pain, chronic, generalized 07/04/2013 04/18/2018 Irritable bowel syndrome 03/15/2012 020 Unspecified gastritis and ga stroduodenitis without mention of hemorrhage 07/21/2011 03/15/2012 Acute gastritis without mention of hemorrhage 03/15/2012 Abdominal pain, right upper quadrant 07/11/2011 03/15/2012 Disturbance of skin sensation 01/21/2010 Cervicalgia 01/21/2010 01/03/2011 Abdominal pain, epigastric 10/26/200903/15 Abdominal pain, generalized 10/05/2009 02/0 06/2011 Dysuria 05/21/2009 01/03/2011 Lumbago 03/09/2008 04/18/2018 Pruritus of genital organs 11/21/200601/03 Bipolar disorder, unspecified 07/26/2006 documented as of this encounter (statuses as of 02/24/2022) [facility] History of Past illness Narrative* Problem Noted Date Resolved Date Mixed stress and urge urinary incontinence 12/1309/08/2021 Raynaud's phenomenon without gangrene 02/01/2017 12/14/2019 Pain of left thumb 01/20/2015 04/18/2018 Myofascial pain 11/07/2013 04/18/2018 ASCUS (atypical squamous renetta ls of undetermined significance) on Pap smear 09/24/2013 04/18/2018 Abdominal pain, chronic, generalized 07/04/2013 04/18/2018 Irritable bowel syndrome 03/15/2012 020 Unspecified gastritis and ga stroduodenitis without mention of hemorrhage 07/21/2011 03/15/2012 Acute gastritis without mention of hemorrhage 03/15/2012 Abdominal pain, right upper quadrant 07/11/2011 03/15/2012 Disturbance of skin sensation 01/21/2010 Cervicalgia 01/21/2010 01/03/2011 Abdominal pain, epigastric 10/26/200903/15 Abdominal pain, generalized 10/05/2009/0 06/2011 Dysuria 05/21/2009 01/03/2011 Lumbago 03/09/2008 04/18/2018 Pruritus of genital organs 11/21/200601/03 Bipolar disorder, unspecified 07/26/2006 documented as of this encounter (statuses as of 04/07/2022) [facility] of Past illness Narrative* Problem Noted Date Resolved Date Mixed stress and urge urinary incontinence 12/1309/08/2021 Raynaud's phenomenon without gangrene 02/01/2017 12/14/2019 Pain of left thumb 01/20/2015 04/18/2018 Myofascial pain 11/07/2013 04/18/2018 ASCUS (atypical squamous renetta ls of undetermined significance) on Pap smear 09/24/2013 04/18/2018 Abdominal pain, chronic, generalized 07/04/2013 04/18/2018 Irritable bowel syndrome 03/15/2012 020 Unspecified gastritis and ga stroduodenitis without mention of hemorrhage 07/21/2011 03/15/2012 Acute gastritis without mention of hemorrhage 03/15/2012 Abdominal pain, right upper quadrant 07/11/2011 03/15/2012 Disturbance of skin sensation 01/21/2010 Cervicalgia 01/21/2010 01/03/2011 Abdominal pain, epigastric 10/26/200903/15 Abdominal pain, generalized 10/05/2009 02/0 06/2011 Dysuria 05/21/2009 01/03/2011 Lumbago 03/09/2008 04/18/2018 Pruritus of genital organs 11/21/200601/03 Bipolar disorder, unspecified 07/26/2006 documented as of this encounter (statuses as of 04/25/2022) [facility] of Past illness Narrative* Problem Noted Date Resolved Date Mixed stress and urge urinary incontinence 12/1309/08/2021 Raynaud's phenomenon without gangrene 02/01/2017 12/14/2019 Pain of left thumb 01/20/2015 04/18/2018 Myofascial pain 11/07/2013 04/18/2018 ASCUS (atypical squamous renetta ls of undetermined significance) on Pap smear 09/24/2013 04/18/2018 Abdominal pain, chronic, generalized 07/04/2013 04/18/2018 Irritable bowel syndrome 03/15/2012 020 Unspecified gastritis and ga stroduodenitis without mention of hemorrhage 07/21/2011 03/15/2012 Acute gastritis without mention of hemorrhage 03/15/2012 Abdominal pain, right upper quadrant 07/11/2011 03/15/2012 Disturbance of skin sensation 01/21/2010 Cervicalgia 01/21/2010 01/03/2011 Abdominal pain, epigastric 10/26/200903/15 Abdominal pain, generalized 10/05/200906/2011 Dysuria 05/21/2009 01/03/2011 Lumbago 03/09/2008 04/18/2018 Pruritus of genital organs 11/21/200601/03 Bipolar disorder, unspecified 07/26/2006 documented as of this encounter (statuses as of 05/04/2022) [facility] of Past illness Narrative* Problem Noted Date Resolved Date Mixed stress and urge urinary incontinence 12/1309/08/2021 Raynaud's phenomenon without gangrene 02/01/2017 12/14/2019 Pain of left thumb 01/20/2015 04/18/2018 Myofascial pain 11/07/2013 04/18/2018 ASCUS (atypical squamous renetta ls of undetermined significance) on Pap smear 09/24/2013 04/18/2018 Abdominal pain, chronic, generalized 07/04/2013 04/18/2018 Irritable bowel syndrome 03/15/2012 020 Unspecified gastritis and ga stroduodenitis without mention of hemorrhage 07/21/2011 03/15/2012 Acute gastritis without mention of hemorrhage 03/15/2012 Abdominal pain, right upper quadrant 07/11/2011 03/15/2012 Disturbance of skin sensation 01/21/2010 Cervicalgia 01/21/2010 01/03/2011 Abdominal pain, epigastric 10/26/200903/15 Abdominal pain, generalized 10/05/2009/06/2011 Dysuria 05/21/2009 01/03/2011 Lumbago 03/09/2008 04/18/2018 Pruritus of genital organs 11/21/200601/03 Bipolar disorder, unspecified 07/26/2006 documented as of this encounter (statuses as of 05/10/2022) [facility] Plan note No data available for this section [facility] note* Diagnosis Acute pain of right shoulder- Primary Pain, postoperative, acute Other acute postoperative pain TOS (thoracic outlet syndrome) Brachial plexus lesions Acute upper back pain Pain in thoracic spine documented in this encounter [facility] note* Diagnosis Bee sting reaction, accidental or unintentional, sequela documented in this encounter [facility] note* Diagnosis Uncomplicated asthma, unspecified asthma severity, unspecified whether persistent documented in this encounter [facility] note* Diagnosis Thoracic outlet syndrome- Primary Brachial plexus lesions Gastroesophageal reflux disease, unspecified whether esophagitis present Uncomplicated asthma, unspecified asthma severity, unspecified whether persistent documented in this encounter [facility] note* Diagnosis Thoracic outlet syndrome Brachial plexus lesions documented in this encounter [facility] note* Diagnosis Anxiety with depression- Primary documented in this encounter [facility] note* Diagnosis Thoracic outlet syndrome- Primary Brachial plexus lesions [facility] syndrome Brachial plexus lesions [facility] Diagnosis Thoracic outlet syndrome Brachial plexus lesions documented in this encounter [facility] note* Diagnosis Overactive bladder- Primary Hypertonicity of bladder Bacteriuria Other nonspecific finding on examination of urine documented in this encounter [facility] note* Diagnosis TOS (thoracic outlet syndrome)- Primary Brachial plexus lesions Myofascial pain syndrome Mylagia and myositis, unspecified Chronic left shoulder pain Pain in joint, shoulder region Neck pain Cervicalgia documented in this encounter [facility] note* Diagnosis Lower abdominal pain- Primary Abdominal pain, other specified site documented in this encounter [facility] note* Diagnosis Gastroesophageal reflux disease without esophagitis Esophageal reflux documented in this encounter [facility] note* Diagnosis Lower abdominal pain Abdominal pain, other specified site documented in this encounter [facility] note* Diagnosis RLQ abdominal pain- Primary Abdominal pain, right lower quadrant Cyst of ovary, right Other and unspecified ovarian cyst documented in this encounter [facility] note* Diagnosis RLQ abdominal pain Abdominal pain, right lower quadrant Cyst of ovary, right Other and unspecified ovarian cyst documented in this encounter [facility] note* Diagnosis Thoracic outlet syndrome Brachial plexus lesions documented in this encounter [facility] note* Diagnosis Folliculitis- Primary Other specified disease of hair and hair follicles RLQ abdominal pain Abdominal pain, right lower quadrant Cyst of ovary, right Other and unspecified ovarian cyst documented in this encounter [facility] note* Diagnosis Anxiety with depression- Primary Thoracic outlet syndrome Brachial plexus lesions documented in this encounter [facility] note* Diagnosis Thoracic outlet syndrome- Primary Brachial plexus lesions documented in this encounter [facility] note* Diagnosis Thoracic outlet syndrome Brachial plexus lesions documented in this encounter [facility] note* Diagnosis Thoracic outlet syndrome- Primary Brachial plexus lesions Chronic post-operative pain Cervicalgia Chronic left shoulder pain Pain in joint, shoulder region documented in this encounter [facility] note* Diagnosis Anxiety with depression documented in this encounter [facility] note* Diagnosis Acute pain of right shoulder documented in this encounter [facility] note* Diagnosis Left shoulder pain, unspecified chronicity [M25.512 (ICD-10-CM)]- Primary documented in this encounter [facility] note* Diagnosis Thoracic outlet syndrome- Primary Brachial plexus lesions Chronic post-operative pain Cervicalgia Chronic left shoulder pain Pain in joint, shoulder region documented in this encounter [facility] note* Diagnosis Cervicalgia- Primary documented in this encounter [facility] note* Diagnosis Gastroesophageal reflux disease without esophagitis Esophageal reflux documented in this encounter [facility] note* Diagnosis Pain of left shoulder region- Primary Anxiety with depression Thoracic outlet syndrome Brachial plexus lesions Non-adherence to medical treatment Personal history of noncompliance with medical treatment, presenting hazards to health documented in this encounter [facility] note* Diagnosis Thoracic outlet syndrome Brachial plexus lesions Anxiety with depression documented in this encounter [facility] note* Diagnosis Postoperative abdominal pain- Primary Abdominal pain, unspecified site Gastroesophageal reflux disease without esophagitis Esophageal reflux documented in this encounter [facility] note* Diagnosis Uncomplicated asthma, unspecified asthma severity, unspecified whether persistent documented in this encounter [facility] note* Diagnosis Anxiety with depression documented in this encounter [facility] note* Diagnosis Asthma with acute exacerbation, unspecified asthma severity, unspecified whether persistent- Primary Nausea and vomiting, unspecified vomiting type documented in this encounter [facility] for referral (narrative)* Diagnostic Procedure Only (Routine) - Pending Review Specialty Diagnoses / Procedures Referred By Contac t Referred To Contact XR IMAGING Diagnoses Acute pain of right shoulder Acute upper back pain Procedures XR CERV GENERAL 2V AP/LAT RADEX SPINE CERVICAL 2 OR 3 VIEWS German Pires APRN.[facility] [address] [place] [address] Xr Imaging Referral ID Status Reason Start Date Expiration Date Visits Requested Visits Authorized [id number] Pending Review Auto-Generat ed Referral 02/24/2022 03/26/2023 1 1 * Diagnostic Procedure Only (Routine) - Pending Review Specialty Diagnoses / Procedures Referred By Contac t Referred To Contact XR IMAGING Diagnoses Acute pain of right shoulder Acute upper back pain Procedures XR THORACIC GENERAL 3V AP/LAT/SWIMMERS RADEX SPINE THORACIC 3 VIEWS German Pires APRN.FISHER EEL SPEAR [address] [place] [address] Xr Imaging Referral ID Status Reason Start Date Expiration Date Visits Requested Visits Authorized [id number] Pending Review Auto-Generat ed Referral 02/24/2022 03/26/2023 1 1 * Physical Therapy (Routine) - Pending Review Specialty Diagnoses / Procedures Referred By Contac t Referred To Contact [facility] Diagnoses Acute pain of right shoulder Procedures CONSULT TO PHYSICAL THERAPY PHYSICAL THERAPY EVALUATION HIGH COMPLEX 45 MINS German Pires APRN.FISHER EEL SPEAR [address] [place] [address] [facility] [address] [place] [address] Referral ID Status Reason Start Date Expiration Date Visits Requested Visits Authorized [id number] Pending Review Auto-Generat ed Referral 02/24/2022 02/24/2023 1 1 * Diagnostic Procedure Only (Routine) - Pending Review Specialty Diagnoses / Procedures Referred By Contac t Referred To Contact XR IMAGING Diagnoses Acute pain of right shoulder Procedures XR SHOULDER GENERAL 3V OR MORE AP/TRUE AP/OTHER LEFT RADEX SHOULDER COMPLETE MINIMUM 2 VIEWS German Pires APRN.CNS [address] [place] [address] Xr Imaging Referral ID Status Reason Start Date Expiration Date Visits Requested Visits Authorized [id number] Pending Review Auto-Generat ed Referral 02/24/2022 03/26/2023 1 1 [facility] for referral (narrative)* Diagnostic Procedure Only (Routine) - Pending Review Specialty Diagnoses / Procedures Referred By Contac t Referred To Contact XR IMAGING Diagnoses Chronic left shoulder pain Procedures XR SHOULDER LIMITED 2V AP/TRUE AP LEFT RADEX SHOULDER COMPLETE MINIMUM 2 VIEWS Panchito Lopez, 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.RETAIL CLERK [address] [place] [address] Xr Imaging Referral ID Status Reason Start Date Expiration Date Visits Requested Visits Authorized [id number] Pending Review Auto-Generat ed Referral 08/31/2022 09/30/2023 1 1 * - Pending Review Specialty Diagnoses / Procedures Referred By Contac t Referred To Contact Physical Therapy Diagnoses TOS (thoracic outlet syndrome) Myofascial pain syndrome Chronic left shoulder pain Neck pain Procedures CONSULT TO PHYSICAL THERAPY Panchito Lopez APRN.RETAIL CLERK [address] [place] [address] Referral ID Status Reason Start Date Expiration Date V isits Requested Visits Authorized [id number] Pending Review 08/31/2022 11/29/2022 1 1 * Diagnostic Procedure Only (Routine) - Pending Review Specialty Diagnoses / Procedures Referred By Contac t Referred To Contact XR IMAGING Diagnoses TOS (thoracic outlet syndrome) Procedures XR THORACIC LIMITED 2V AP/LAT RADEX SPINE THORACIC 2 VIEWS Panchito Lopez APRN.RETAIL CLERK [address] [place] [address] Xr Imaging Referral ID Status Reason Start Date Expiration Date Visits Requested Visits Authorized [id number] Pending Review Auto-Generat ed Referral 08/31/2022 09/30/2023 1 1 * Diagnostic Procedure Only (Routine) - Pending Review Specialty Diagnoses / Procedures Referred By Contac t Referred To Contact XR IMAGING Diagnoses Neck pain Procedures XR CERV OTHER 6V AP/LAT/FLX/EXT/OBL RADEX SPINE CERVICAL 6 OR MORE VIEWS Panchito Lopez APRN.RETAIL CLERK [address] [place] [address] Xr Imaging Referral ID Status Reason Start Date Expiration Date Visits Requested Visits Authorized [id number] Pending Review Auto-Generat ed Referral 08/31/2022 09/30/2023 1 1 [facility] for visit Narrative* Outpatient Procedure (Routine) - Closed Specialty Diagnoses / Procedures Referred By Contac t Referred To Contact Radiology / [facility] MOB Diagnoses Cervicalgia [M54.2] Procedures MRI [address] Estevan Cheney MD [address] [place] [address] [facility] [address] [place] [address] Referral ID Status Reason Start Date Expiration Date Visits Re quested Visits Authorized [id number] Closed 01/31/2023 05/01/2023 1 1 [facility] Diagnostic Procedure Only (Routine) - Closed Specialty Diagnoses / Procedures Referred By Rosio sanabria Referred To Contact Radiology / [facility] WS MOB Diagnoses Cervicalgia [M54.2] Procedures MRI [address] Estevan Cheney MD [address] [place] [address] Radio Mri [facility] [address] [place] [address] Referral ID Status Reason Start Date Expiration Date Visits Re quested Visits Authorized [id number] Closed 01/31/2023 05/01/2023 1 1 [facility] Summary Purpose Family History No Family History Records FoundNo Family History Records Found No data available for this section No Family History Records FoundNo Family History Records Found Advance Directives No Advanced Directives Records FoundDocuments on File Type Date Recorded 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 Advance Directive(s) 09/08/2021 9:29 AM Advance Directive(s) 11/08/2016 11:21 AM Documents on File Type Date Recorded 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 Continuation of ketorolac (Toradol) beyond 5 days increases the risk of developing serious adverse events. Please verify the duration of therapy for ketorolac (Toradol)., If ordered PRN for pain, patient/guardian may elect to receive this medication for higher pain levels if preferred: Yes Given 02/24/2022 10:37 AM EDT 60 mg Buttocks, Right Reason for Referral Specialty Diagnoses / Procedures Referred By Contac t Referred To Contact Pain Management Diagnoses Thoracic outlet syndrome Procedures CONSULT TO PAIN MGT OFFICE/OUTPATIENT NEW HIGH MDM 60-74 MINUTES German Pires APRN.FISHER EEL SPEAR [address] [place] [id number] Referral ID Status Reason Start Date Expiration Date Visits Requested Visits Authorized [id number] Authorized PCP Requested Referral 06/19/2022 06/19/2023 1 1 Specialty Diagnoses / Procedures Referred By Contac t Referred To Contact Vascular Surgery Diagnoses Thoracic outlet syndrome Procedures CONSULT TO VASCULAR SURGERY OFFICE/OUTPATIENT NEW [facility] 60-74 MINUTES German Pires, 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.FISHER EEL SPEAR [address] [place] [id number] Referral ID Status Reason Start Date Expiration Date Visits Requested Visits Authorized [id number] Authorized PCP Requested Referral 06/19/2022 06/19/2023 1 1 Specialty Diagnoses / Procedures Referred By Contac t Referred To Contact Diagnoses Thoracic outlet syndrome German Pires, EDU.FISHER EEL SPEAR [address] [place] [address] Referral ID Status Reason Start Date Expiration Date Visits Re quested Visits Authorized [id number] Closed 1 1 Specialty Diagnoses / Procedures Referred By Contac t Referred To Contact [facility] Diagnoses Acute pain of right shoulder Procedures PT REHAB FOLLOW UP ORDER THERAPEUTIC EXERCISES RE, EA 15 MIN. German Pires APRN.FISHER EEL SPEAR [address] [place] [address] [facility] [address] [place] [address] Referral ID Status Reason Start Date Expiration Date Visits Requested Visits Authorized [id number] Waiting for Response PCP Requested Referral Auto-Generate d Referral 12/28/2022 03/28/2023 1 1 Specialty Diagnoses / Procedures Referred By Contac t Referred To Contact [facility] Diagnoses Cervicalgia Procedures CONSULT TO [facility] OFFICE/OUTPATIENT [facility] 60-74 MINUTES Estevan Blackman MD [address] [place] [address] Referral ID Status Reason Start Date Expiration Date Visits Requested Visits Authorized [id number] Authorized PCP Requested Referral 02/20/2023 02/20/2024 1 1 Additional Source Comments INFORMATION SOURCE (unrecogn ized section and content) DATE CREATED AUTHOR AUTHOR'S ORGANIZ ATION 11/16/2022 [facility] DATE CREATED AUTHOR AUTHOR'S ORGANIZ ATION 11/23/2023 [facility] DATE CREATED AUTHOR AUTHOR'S ORGANIZ ATION 11/23/2023 [facility] Source Comments (unrecognize d section and content) In the event this informatio n is protected by the Federal Confidentiality of Alcohol and Drug Abuse Patient Records regulations: The Federal rules restrict any use of the information to criminally investigate or prosecute any alcohol or drug abuse patient.[facility] the event this information is protected by the Federal Confidentiality of Alcohol and Drug Abuse Patient Records regulations: The Federal rules restrict any use of the information to criminally investigate or prosecute any alcohol or drug abuse patient.[facility] HospitalIn the event this information is protected by the Federal Confidentiality of Alcohol and Drug Abuse Patient Records regulations: The Federal rules restrict any use of the information to criminally investigate or prosecute any alcohol or drug abuse patient.[facility] HospitalIn the event this information is protected by the Federal Confidentiality of Alcohol and Drug Abuse Patient Records regulations: The Federal rules restrict any use of the information to criminally investigate or prosecute any alcohol or drug abuse patient.[facility] HospitalIn the event this information is protected by the Federal Confidentiality of Alcohol and Drug Abuse Patient Records regulations: The Federal rules restrict any use of the information to criminally investigate or prosecute any alcohol or drug abuse patient.[facility] HospitalIn the event this information is protected by the Federal Confidentiality of Alcohol and Drug Abuse Patient Records regulations: The Federal rules restrict any use of the information to criminally investigate or prosecute any alcohol or drug abuse patient.[facility] HospitalIn the event this information is protected by the Federal Confidentiality of Alcohol and Drug Abuse Patient Records regulations: The Federal rules restrict any use of the information to criminally investigate or prosecute any alcohol or drug abuse patient.[facility] HospitalIn the event this information is protected by the Federal Confidentiality of Alcohol and Drug Abuse Patient Records regulations: The Federal rules restrict any use of the information to criminally investigate or prosecute any alcohol or drug abuse patient.[facility] HospitalIn the event this information is protected by the Federal Confidentiality of Alcohol and Drug Abuse Patient Records regulations: The Federal rules restrict any use of the information to criminally investigate or prosecute any alcohol or drug abuse patient.[facility] HospitalIn the event this information is protected by the Federal Confidentiality of Alcohol and Drug Abuse Patient Records regulations: The Federal rules restrict any use of the information to criminally investigate or prosecute any alcohol or drug abuse patient.[facility] HospitalIn the event this information is protected by the Federal Confidentiality of Alcohol and Drug Abuse Patient Records regulations: The Federal rules restrict any use of the information to criminally investigate or prosecute any alcohol or drug abuse patient.[facility] HospitalIn the event this information is protected by the Federal Confidentiality of Alcohol and Drug Abuse Patient Records regulations: The Federal rules restrict any use of the information to criminally investigate or prosecute any alcohol or drug abuse patient.[facility] HospitalIn the event this information is protected by the Federal Confidentiality of Alcohol and Drug Abuse Patient Records regulations: The Federal rules restrict any use of the information to criminally investigate or prosecute any alcohol or drug abuse patient.[facility] HospitalIn the event this information is protected by the Federal Confidentiality of Alcohol and Drug Abuse Patient Records regulations: The Federal rules restrict any use of the information to criminally investigate or prosecute any alcohol or drug abuse patient.[facility] HospitalIn the event this information is protected by the Federal Confidentiality of Alcohol and Drug Abuse Patient Records regulations: The Federal rules restrict any use of the information to criminally investigate or prosecute any alcohol or drug abuse patient.[facility] HospitalIn the event this information is protected by the Federal Confidentiality of Alcohol and Drug Abuse Patient Records regulations: The Federal rules restrict any use of the information to criminally investigate or prosecute any alcohol or drug abuse patient.[facility] HospitalIn the event this information is protected by the Federal Confidentiality of Alcohol and Drug Abuse Patient Records regulations: The Federal rules restrict any use of the information to criminally investigate or prosecute any alcohol or drug abuse patient.[facility] HospitalIn the event this information is protected by the Federal Confidentiality of Alcohol and Drug Abuse Patient Records regulations: The Federal rules restrict any use of the information to criminally investigate or prosecute any alcohol or drug abuse patient.[facility] HospitalIn the event this information is protected by the Federal Confidentiality of Alcohol and Drug Abuse Patient Records regulations: The Federal rules restrict any use of the information to criminally investigate or prosecute any alcohol or drug abuse patient.[facility] HospitalIn the event this information is protected by the Federal Confidentiality of Alcohol and Drug Abuse Patient Records regulations: The Federal rules restrict any use of the information to criminally investigate or prosecute any alcohol or drug abuse patient.[facility] HospitalIn the event this information is protected by the Federal Confidentiality of Alcohol and Drug Abuse Patient Records regulations: The Federal rules restrict any use of the information to criminally investigate or prosecute any alcohol or drug abuse patient.[facility] HospitalIn the event this information is protected by the Federal Confidentiality of Alcohol and Drug Abuse Patient Records regulations: The Federal rules restrict any use of the information to criminally investigate or prosecute any alcohol or drug abuse patient.[facility] HospitalIn the event this information is protected by the Federal Confidentiality of Alcohol and Drug Abuse Patient Records regulations: The Federal rules restrict any use of the information to criminally investigate or prosecute any alcohol or drug abuse patient.[facility] HospitalIn the event this information is protected by the Federal Confidentiality of Alcohol and Drug Abuse Patient Records regulations: The Federal rules restrict any use of the information to criminally investigate or prosecute any alcohol or drug abuse patient.[facility] HospitalIn the event this information is protected by the Federal Confidentiality of Alcohol and Drug Abuse Patient Records regulations: The Federal rules restrict any use of the information to criminally investigate or prosecute any alcohol or drug abuse patient.[facility] HospitalIn the event this information is protected by the Federal Confidentiality of Alcohol and Drug Abuse Patient Records regulations: The Federal rules restrict any use of the information to criminally investigate or prosecute any alcohol or drug abuse patient.[facility] HospitalIn the event this information is protected by the Federal Confidentiality of Alcohol and Drug Abuse Patient Records regulations: The Federal rules restrict any use of the information to criminally investigate or prosecute any alcohol or drug abuse patient.[facility] HospitalIn the event this information is protected by the Federal Confidentiality of Alcohol and Drug Abuse Patient Records regulations: The Federal rules restrict any use of the information to criminally investigate or prosecute any alcohol or drug abuse patient.[facility] HospitalIn the event this information is protected by the Federal Confidentiality of Alcohol and Drug Abuse Patient Records regulations: The Federal rules restrict any use of the information to criminally investigate or prosecute any alcohol or drug abuse patient.[facility] HospitalIn the event this information is protected by the Federal Confidentiality of Alcohol and Drug Abuse Patient Records regulations: The Federal rules restrict any use of the information to criminally investigate or prosecute any alcohol or drug abuse patient.[facility] HospitalIn the event this information is protected by the Federal Confidentiality of Alcohol and Drug Abuse Patient Records regulations: The Federal rules restrict any use of the information to criminally investigate or prosecute any alcohol or drug abuse patient.[facility] HospitalIn the event this information is protected by the Federal Confidentiality of Alcohol and Drug Abuse Patient Records regulations: The Federal rules restrict any use of the information to criminally investigate or prosecute any alcohol or drug abuse patient.[facility] HospitalIn the event this information is protected by the Federal Confidentiality of Alcohol and Drug Abuse Patient Records regulations: The Federal rules restrict any use of the information to criminally investigate or prosecute any alcohol or drug abuse patient.[facility] HospitalIn the event this information is protected by the Federal Confidentiality of Alcohol and Drug Abuse Patient Records regulations: The Federal rules restrict any use of the information to criminally investigate or prosecute any alcohol or drug abuse patient.[facility] HospitalIn the event this information is protected by the Federal Confidentiality of Alcohol and Drug Abuse Patient Records regulations: The Federal rules restrict any use of the information to criminally investigate or prosecute any alcohol or drug abuse patient.[facility] HospitalIn the event this information is protected by the Federal Confidentiality of Alcohol and Drug Abuse Patient Records regulations: The Federal rules restrict any use of the information to criminally investigate or prosecute any alcohol or drug abuse patient.[facility] HospitalIn the event this information is protected by the Federal Confidentiality of Alcohol and Drug Abuse Patient Records regulations: The Federal rules restrict any use of the information to criminally investigate or prosecute any alcohol or drug abuse patient.[facility] HospitalIn the event this information is protected by the Federal Confidentiality of Alcohol and Drug Abuse Patient Records regulations: The Federal rules restrict any use of the information to criminally investigate or prosecute any alcohol or drug abuse patient.[facility] HospitalIn the event this information is protected by the Federal Confidentiality of Alcohol and Drug Abuse Patient Records regulations: The Federal rules restrict any use of the information to criminally investigate or prosecute any alcohol or drug abuse patient.[facility] HospitalIn the event this information is protected by the Federal Confidentiality of Alcohol and Drug Abuse Patient Records regulations: The Federal rules restrict any use of the information to criminally investigate or prosecute any alcohol or drug abuse patient.[facility] HospitalIn the event this information is protected by the Federal Confidentiality of Alcohol and Drug Abuse Patient Records regulations: The Federal rules restrict any use of the information to criminally investigate or prosecute any alcohol or drug abuse patient.[facility] HospitalIn the event this information is protected by the Federal Confidentiality of Alcohol and Drug Abuse Patient Records regulations: The Federal rules restrict any use of the information to criminally investigate or prosecute any alcohol or drug abuse patient.[facility] HospitalIn the event this information is protected by the Federal Confidentiality of Alcohol and Drug Abuse Patient Records regulations: The Federal rules restrict any use of the information to criminally investigate or prosecute any alcohol or drug abuse patient.[facility] HospitalIn the event this information is protected by the Federal Confidentiality of Alcohol and Drug Abuse Patient Records regulations: The Federal rules restrict any use of the information to criminally investigate or prosecute any alcohol or drug abuse patient.[facility] HospitalIn the event this information is protected by the Federal Confidentiality of Alcohol and Drug Abuse Patient Records regulations: The Federal rules restrict any use of the information to criminally investigate or prosecute any alcohol or drug abuse patient.[facility] HospitalIn the event this information is protected by the Federal Confidentiality of Alcohol and Drug Abuse Patient Records regulations: The Federal rules restrict any use of the information to criminally investigate or prosecute any alcohol or drug abuse patient.[facility] HospitalIn the event this information is protected by the Federal Confidentiality of Alcohol and Drug Abuse Patient Records regulations: The Federal rules restrict any use of the information to criminally investigate or prosecute any alcohol or drug abuse patient.[facility] HospitalIn the event this information is protected by the Federal Confidentiality of Alcohol and Drug Abuse Patient Records regulations: The Federal rules restrict any use of the information to criminally investigate or prosecute any alcohol or drug abuse patient.[facility] HospitalIn the event this information is protected by the Federal Confidentiality of Alcohol and Drug Abuse Patient Records regulations: The Federal rules restrict any use of the information to criminally investigate or prosecute any alcohol or drug abuse patient.[facility] HospitalIn the event this information is protected by the Federal Confidentiality of Alcohol and Drug Abuse Patient Records regulations: The Federal rules restrict any use of the information to criminally investigate or prosecute any alcohol or drug abuse patient.[facility] HospitalIn the event this information is protected by the Federal Confidentiality of Alcohol and Drug Abuse Patient Records regulations: The Federal rules restrict any use of the information to criminally investigate or prosecute any alcohol or drug abuse patient.[facility] HospitalIn the event this information is protected by the Federal Confidentiality of Alcohol and Drug Abuse Patient Records regulations: The Federal rules restrict any use of the information to criminally investigate or prosecute any alcohol or drug abuse patient.[facility] HospitalIn the event this information is protected by the Federal Confidentiality of Alcohol and Drug Abuse Patient Records regulations: The Federal rules restrict any use of the information to criminally investigate or prosecute any alcohol or drug abuse patient.[facility] HospitalIn the event this information is protected by the Federal Confidentiality of Alcohol and Drug Abuse Patient Records regulations: The Federal rules restrict any use of the information to criminally investigate or prosecute any alcohol or drug abuse patient.[facility] HospitalIn the event this information is protected by the Federal Confidentiality of Alcohol and Drug Abuse Patient Records regulations: The Federal rules restrict any use of the information to criminally investigate or prosecute any alcohol or drug abuse patient.[facility] Reason for Visit (unrecogniz ed section and content) Reason Onset Date Comments Refill Request 04/06/2022 Reason Onset Date Comments Refill Request 04/25/2022 Reason Comments Left shoulder pain Reason Onset Date Comments Refill Request 05/09/2022 Reason Comments Consult Initial [facility] Pt Outr each Reason Comments Anxiety Reason Comments Consult SW Pt Outreach F/U Reason Comments Pain (Shoulder Pain) L Shoulder pain, sx 10/16 Reason Comments Future Appointment Reason Comments Appointment Reason Onset Date Comments Refill Request 06/27/2022 Reason Comments urinary symptoms Flank Pain Reason Comments ED Follow-up [facility] 07/27 urinary freq uency and pain Reason Comments New Patient Reason Onset Date Comments Refill Request 10/04/2022 Reason Comments Follow Up Reason Onset Date Comments Refill Request 10/05/2022 Reason Onset Date Comments Refill Request 10/22/2022 Reason Comments Mass Reason Comments Refill Request Reason Comments Medication Question Reason Comments Hospital F/U Chronic shoulder ana n Reason Onset Date Comments Refill Request 12/04/2022 Reason Comments Chronic Pain Reason Onset Date Comments Refill Request 12/20/2022 Reason Comments PT Eval Specialty Diagnoses / Procedures Referred By Contac t Referred To Contact Physical Therapy / PHYSICAL THERAPY Diagnoses TOS (thoracic outlet syndrome) [G54.0 (ICD-10-CM)]; Myofascial pain syndrome [M79.18 (ICD-10-CM)]; Chronic left shoulder pain [M25.512, G89.29 (ICD-10-CM)]; Neck pain [M54.2 (ICD-10-CM)] Procedures NEW RS PT SPINE Panchito Lopez, EDU.RETAIL CLERK [address] [place] [address] Hao Butcher, PT [address] [place] [address] Referral ID Status Reason Start Date Expiration Date Visits Re quested Visits Authorized [id number] Closed 11/26/2022 11/25/2023 1 1 Reason Comments Weight restrictions Reason Comments Orders Reason Comments Recheck neck and shoulder co mplaints Reason Onset Date Comments Refill Request 02/05/2023 Reason Comments Patient Question Reason Onset Date Comments Refill Request 02/23/2023 Reason Comments Follow-up Shoulder Pain Reason Onset Date Comments Refill Request 04/02/2023 Reason Comments ED Follow-up Reason Onset Date Comments Refill Request 06/01/2023 Reason Comments Pharmacist Call Reason Comments Cough Care Teams (unrecognized sec tion and content) Set Up [employer] Relationship Specialty Start Date End Date Yassine Radford MD [address] [place], [place] [id number] PCP - General 02/15/07 Florin Patel MD [address] [place], [place] [id number] Referring General Surgery 07/25/18 Bartolo Gonzalez MD [address] [place] [address] Referring General Surgery 09/24/19 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 [place] [address] PCP - General 02/15/07 Florin Patel MD [address] 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 [address] Referring General Surgery 07/25/18 Bartolo Gonzalez MD [address] [place] [address] Referring General Surgery 09/24/19 FOR RECORDS PERTAINING TO PATIENTS WHO ARE OR HAVE BEEN ENROLLED IN A CHEMICAL DEPENDENCY/SUBSTANCEABUSE PROGRAM, SOME INFORMATION MAY BE OMITTED. This clinical summary was aggregated from multiple sources. Caution should be exercised in using it in the provision of clinical care. This summary normalizes information from multiple sources, and as a consequence, information in this document may materially change the coding, format and clinical context of patient data. In addition, data may be omitted in some cases. CLINICAL DECISIONS SHOULD BE BASED ON THE PRIMARY CLINICAL RECORDS. [facility] [facility]. provides no warranty or guarantee of the accuracy or completeness of information in this document.
== END 2023-11-25 05:41 | disposition home or self-care (01) ==
PROVIDERS: Emergency Provider Emergency Medicine; PCP Internal Medicine; Visit Provider Emergency Medicine
DX: K61.1 Rectal abscess (principal); F17.210 Nicotine dependence, cigarettes, uncomplicated; F12.90 Cannabis use, unspecified, uncomplicated
CPT/HCPCS: 99282

== ENCOUNTER 2023-12-08 13:50 | Emergency (ER) | payer MEDICAID, SELFPAY ==
[2023-12-08 13:51] VITALS: BP 123/80; PULSE 83; RESP 18; TEMP 35.8; O2SAT 100; BMI 31.8
--- NOTE | 2023-12-08 14:03 | EX.ED.DYSGE1 ---
HPI <ADDY العراقي - Last Filed: 12/08/23 14:28> History of Present Illness Chief Complaint: Abscess Narrative Narrative: Patient is a 38-year-old female with history of asthma, abscess formation has been ongoing for the greater than 1 month. Patient is abscess on her left upper buttock. Patient does have a appointment with a surgeon Dr. Radford, surgery will be taking care of on December 20, 2023. Patient states that she has been on Atwood, Bactrim, Keflex, she is not on any antibiotics at this time she ran out of her Atwood yesterday. Patient states today the pain was too great, and she is here for evaluation [facility] <ADDY العراقي - Last Filed: 12/08/23 14:28> [facility] Medical History Anxiety Depression GERD (gastroesophageal reflux disease) H/O thoracic outlet syndrome IBS (irritable bowel syndrome) Left shoulder strain PTSD (post-traumatic stress disorder) Thoracic outlet syndrome Home Medications doxycycline monohydrate 100 mg capsule 100 mg PO BID #14 CAPSULES 11/19/23 [Rx Last Taken Unknown] estradiol 1 mg tablet 1 mg PO DAILY 11/19/23 [History Last Taken 11/19/23] estradiol 2 mg tablet 2 mg PO DAILY 11/19/23 [History Last Taken 11/19/23] hydrocodone-acetaminophen 5-325mg 5mg-325mg 1 tab PO Q4H PRN PRN Pain 1 day #4 TABLETS 11/19/23 [Rx Last Taken Unknown] sulfamethoxazole 800 mg-trimethoprim 160 mg tablet (Bactrim DS) 1 tab PO BID 10 days #20 tabs 12/08/23 [Rx Last Taken Unknown] Allergy/AdvReac Type Severity Reaction Status Date / Time benzonatate Allergy Rash Verified 12/08/23 13:50 [From Tessalon Perles] diazepam [From Valium] Allergy Hives Verified 12/08/23 13:50 morphine Allergy Itching Verified 12/08/23 13:50 Penicillins Allergy Hives Verified 12/08/23 13:50 venom-honey bee Allergy Hives Verified 12/08/23 13:50 [bee venom (honey bee)] Family History Father Heart disease Hypertension Myocardial infarction Mother Cancer lung, throat and Lupus Surgical History History of esophagogastroduodenoscopy (EGD) History of left oophorectomy S/P breast biopsy S/P colonoscopy Status post hysterectomy Social History household members: none Smoking Status: Current every day smoker tobacco type: cigarettes alcohol intake: current alcohol intake frequency: holidays/special occasions only substance use type: marijuana caffeine: Yes what type of physical activity do you participate in: none seatbelt use: sometimes do you feel safe at home: Yes additional social history: Boyfriend-Sha- Works at [employer] Patient works at [employer] [facility] <ADDY العراقي - Last Filed: 12/08/23 14:28> ROS ED ROS Narrative Constitutional: Negative for fever, chills, weight loss, weakness Eyes: Negative for vision loss, vision change, double vision ENT: Negative for any sore throat, ear pain, congestion Cardiovascular: Negative for any chest pain, tightness, palpitations Respiratory: Negative for any cough, sputum production, hemoptysis, dyspnea, dyspnea on exertion, orthopnea Gastrointestinal: Negative for any abdominal pain, nausea, vomiting, diarrhea, constipation, blood in stool, blood in vomit : Negative for any urinary frequency, dysuria, retention, blood in urine Muscle skeletal: Negative for any myalgias, arthralgias, neck pain, back pain Neurological: Negative for any headache, syncope, paresthesias, dizziness Skin: Negative for any rashes, lumps, itching, abrasions, lacerations. Positive for wound to the left upper buttock, abscess formation Psychiatric: Negative for any depression, anxiety, stress, suicidal ideation, homicidal ideation Hematologic: Negative for any easy bruising, excessive bruising, easy bleeding Allergies: Negative for any eczema, hives, rash EXAM <ADDY العراقي - Last Filed: 12/08/23 14:28> Physical Exam Narrative Exam Narrative: Vital signs reviewed. HEET: Head normocephalic atraumatic, TMs clear bilaterally. Posterior pharynx is clear, moist mucous membranes. Nares clear bilaterally. Neck: Supple with no lymphadenopathy or tenderness. No signs of meningismus. Cardiac: Regular rate and rhythm no murmurs gallops or rubs, equal peripheral pulses bilaterally. Respiratory: Lungs clear to auscultation bilaterally. No chest tenderness. Abdomen: Soft, nontender, nondistended. No abdominal bruit or pulsatile masses. No hepatosplenomegaly Extremities: No peripheral edema, no signs of gross trauma or deformity. Active full range of motion of all extremities. Neuro: Cranial nerves II through XII intact, no focal neurological deficits. Skin: Clean dry and intact with no rash, purpura, petechiae, vesicles or pustules. Positive for wound to the right upper buttock. There is a wound, there is no significant cellulitis, there is no significant abscess formation or induration. Pain on palpation Backs/flank: No CVA tenderness, no midline spinal tenderness, no deformity. Psych: Normal mood and affect. No SI, HI or acute psychosis. Const Vital Signs: 12/08/23 13:51 Temperature 96.4 F L Temperature Source Temporal Pulse Rate 83 Respiratory Rate 18 Blood Pressure 123/80 H Blood Pressure Mean 94 Pulse Ox 100 Oxygen Delivery Method Room Air <Dr. Cam Aguirre MD - Last Filed: 12/08/23 22:07> Physical Exam Const Vital Signs: 12/08/23 13:51 Temperature 96.4 F L Temperature Source Temporal Pulse Rate 83 Respiratory Rate 18 Blood Pressure 123/80 H Blood Pressure Mean 94 Pulse Ox 100 Oxygen Delivery Method Room Air MDM <ADDY العراقي - Last Filed: 12/08/23 14:28> [facility] Treatment and Re-Evaluation :: Patient appears generally well, patient appears nontoxic, vital signs are stable. Presenting to the emergency department with an ongoing wound to the right upper buttock. Patient does have a surgical appointment on 20 December. Patient area does not look to be acutely infected. There is mild redness have there is no induration, is no drainage noted. Patient will be started on Bactrim to cover for any MRSA. She needs to follow closely with her surgeon. At this time, there is no evidence to suspect any septicemia, no new or worsening abscess. Patient is agreeable, she will follow-up outpatient. All questions answered stable for discharge Comments:: I have personally performed a face to face assessment of the patient and have reviewed the PAULINE Note. I performed a substantive portion of the visit including all aspects of the following. My lo findings include: History is tender swollen area on her right medial buttock that is continuing to hurt. Pain is ramped up in the last 3 days since she finished her cephalexin and Bactrim. Is continuing to drain. States she is taking a lot of baths because that seems to be the only thing that is helping. She just ran out of her narcotic but it was not helping when she took it anyway. She denies any new symptoms. Scheduled for surgery in about 16 days. Exam is small superficially open wound in the right medial buttock near the cleft, a scant amount of purulent material is expressible but I do not feel any subcutaneous/deeper component to suggest need for needle aspiration or incision and drainage. Medical Decison Making suspect MRSA. Will restart on Bactrim which hopefully will temporize until her surgery. Other additions or changes: [None] <Dr. Cam Aguirre MD - Last Filed: 12/08/23 22:07> [facility] Treatment and Re-Evaluation Comments:: I have personally performed a face to face assessment of the patient and have reviewed the PAULINE Note. I performed a substantive portion of the visit including all aspects of the following. My lo findings include: History is tender swollen area on her right medial buttock that is continuing to hurt. Pain is ramped up in the last 3 days since she finished her cephalexin and Bactrim. Is continuing to drain. States she is taking a lot of baths because that seems to be the only thing that is helping. She just ran out of her narcotic but it was not helping when she took it anyway. She denies any new symptoms. Scheduled for surgery in about 16 days. Exam is small superficially open wound in the right medial buttock near the cleft, a scant amount of purulent material is expressible but I do not feel any subcutaneous/deeper component to suggest need for needle aspiration or incision and drainage. Medical Decison Making suspect MRSA. Will restart on Bactrim which hopefully will temporize until her surgery. Other additions or changes: [None] Discharge Plan Triage Chief Complaint: Abscess ED Midlevel Provider: Joaquin Torres ED Provider: Cam Aguirre Dx/Rx/DC Orders Clinical Impression: Chronic wound Instructions: ED Abscess Antibiotic Treatment Only Prescriptions: New sulfamethoxazole-trimethoprim [Bactrim DS] 800-160 mg tablet 1 tab PO BID 10 Days Qty: 20 0RF No Action estradiol 1 mg tablet 1 mg PO DAILY estradiol 2 mg tablet 2 mg PO DAILY doxycycline monohydrate 100 mg capsule 100 mg PO BID Qty: 14 0RF hydrocodone-acetaminophen [hydrocodone-acetaminophen] 5-325 mg tablet 1 tab PO Q4H PRN PRN (Reason: Pain) 1 Days Qty: 4 0RF Primary Care Provider: Yassine Link Referrals: Yassine Link MD [Primary Care Provider] - Activity Restrictions/Additional Instructions: Take the Bactrim until finished. Follow-up with your surgeon Disposition Disposition: Home, Self Care Discharge Date/Time: 12/08/23 14:35
--- OUTSIDE RECORDS SUMMARY | 2023-12-08 14:21 | XMS RPT_ITS | CCD ---
Author Name Unknown Address [id number] [place] [address] Organization [facility] Care Team Providers Care Compliance Director Name Role Phone Nioklay SAMANIEGO, Yassine Hernandez Primary Care Provider [phone] Florin Patel MD Unavailable Bartolo Gonzalez MD Unavailable PANCHITO STEPHENS Attending Unavailable YASSINE LINK Primary Care Unavailable Yassine Link MD Primary Care Provider [phone] Florin Patel MD Unavailable Bartolo Gonzalez MD Unavailable NIKOLAY SAMANIEGO, DR HURT Primary Care Physician NIKOLAY SAMANIEGO, DR HURT Primary Care Unavailwilda CUNNINGHAM MD, ROMELIA Cox Attending Unavailable NORRIS SAMANIEGO, ROMELIA Cox Attending Unavailable NIKOLAY SAMANIEGO, DR HURT Primary Care Unavailwilda REAVES MD, MAYI Attending Unavailable NIKOLAY SAMANIEGO, DR HURT Primary Care UnavailYASSINE Perez Attending Unavailable YASSINE LINK Primary Care Unavailable TAYLOR ESPARZA Attending Unavailable YASSINE LINK Referring Unavailable YASSINE LINK Primary Care Unavailable GERMAN PIRES Attending Unavailable YASSINE LINK Primary Care Unavailable YASSINE LINK Primary Care Unavailable ESTEVAN BLACKMAN Attending Unavailable YASSINE LINK Referring Unavailable GERMAN PIRES Attending Unavailable YASSINE LINK Primary Care Unavailable YASSINE LINK Primary Care Unavailable YASSINE LINK Attending Unavailable GERMAN PIRES Attending Unavailable LINK, STEVIE Primary Care Unavailable LINK, STEVIE Primary Care Unavailable ESTEVAN BLACKMAN Referring Unavailable LINK, STEVIE Primary Care Unavailable ESTEVAN BLACKMAN Referring Unavailable BEATRICE ROBERTS Attending Unavailable LINK, STEVIE Primary Care Unavailable LINK, STEVIE Attending Unavailable LINK, STEVIE Primary Care Unavailable LINK, STEVIE Attending Unavailable LINK, SETVIE Primary Care Unavailable GERMAN PIRES Attending Unavailable HAO BUTCHER Attending Unavailable LINK, STEVIE Primary Care Unavailable PANCHITO STEPHENS Referring Unavailable LINK, STEVIE Primary Care Unavailable LINK, STEVIE Attending Unavailable Allergies Allergy Classification Reported Allergen(s) Allergy Type Date of Onset Reaction(s) Facility (20 sources) benzonatate; Translations: [BENZONATATE] Drug Allergy 7 [facility] Work Phone: (20 sources) diazePAM; Translations: [DIAZEPAM] Drug Allergy 5 [facility] Work Phone: (20 sources) Morphine; Translations: [MORPHINE] Drug Allergy 4 [facility] (7 sources) Penicillins; Translations: [PENICILLINS] Propensity to adverse reactions to drug 1 Other: See Comments [facility] Work Phone: (20 sources) Bees; Translations: [BEES] Allergy to substance 1 Anaphylaxis [facility] Work Phone: (20 sources) Penicillins Propensity to adverse reactions to drug 1 Other: See Comments [facility] Work Phone: (1 source) Bee/Wasp/Ant venom Allergy to substance swelling [facility] (1 source) Penicillin; Translations: [penicillin] Drug Allergy [facility] Medications Current Medications Medication Drug Class(es) Dates [...] Body height 152.4 cm MAYI REAVES MD [facility] 11-21-2023 15:46-0500 Body temperature 98.24 [degF] MAYI REAVES MD [facility] 11-21-2023 15:46-0500 Body weight 72.7 kg MAYI REAVES MD [facility] 11-21-2023 15:46-0500 Diastolic Blood Pressure Non-Invasive 73 mm[Hg] MAYI REAVES MD [facility] 11-21-2023 15:46-0500 Heart rate 86 /min MAYI REAVES MD [facility] 11-21-2023 15:46-0500 Respiratory rate 18 /min MAYI REVAES MD [facility] 11-21-2023 15:46-0500 Systolic Blood Pressure Non-Invasive 119 mm[Hg] MAYI REAVES MD [facility] 05-28-2023 19:18-0400 Body weight 75.75 kg Yassine Link MD Work Phone: [facility] 05-28-2023 19:18-0400 Diastolic blood pressure 62 mm[Hg] Yassine Link MD Work Phone: [facility] 05-28-2023 19:18-0400 Heart rate 80 /min Yassine Link MD Work Phone: [facility] 05-28-2023 19:18-0400 Respiratory rate 16 /min Yassine Link MD Work Phone: [facility] 05-28-2023 19:18-0400 Systolic blood pressure 96 mm[Hg] Yassine Link MD Work Phone: [facility] 12-28-2022 11:41-0500 Body temperature 97.3 [degF] Yassine Link MD Work Phone: [facility] 12-28-2022 11:41-0500 Body weight 78.47 kg Yassine Link MD Work Phone: [facility] 12-28-2022 11:41-0500 Diastolic blood pressure 68 mm[Hg] Yassine Link MD Work Phone: [facility] 12-28-2022 11:41-0500 Heart rate 80 /min Yassine Link MD Work Phone: [facility] 12-28-2022 11:41-0500 Respiratory rate 16 /min Yassine Link MD Work Phone: [facility] 12-28-2022 11:41-0500 Systolic blood pressure 116 mm[Hg] Yassine Link MD Work Phone: [facility] 12-01-2022 16:23-0500 Body temperature 97.81 [degF] Yassine Link MD Work Phone: [facility] 12-01-2022 16:23-0500 Body weight 78.02 kg Yassine Link MD Work Phone: [facility] 12-01-2022 16:23-0500 Diastolic blood pressure 72 mm[Hg] Yassine Link MD Work Phone: [facility] 12-01-2022 16:23-0500 Heart rate 87 /min Yassine Link MD Work Phone: [facility] 12-01-2022 16:23-0500 Respiratory rate 16 /min Yassine Link MD Work Phone: [facility] 12-01-2022 16:23-0500 SaO2% (BldA) [Mass fraction] 99 % Yassine Link MD Work Phone: [facility] 12-01-2022 16:23-0500 Systolic blood pressure 112 mm[Hg] Yassine Link MD Work Phone: [facility] 11-03-2022 10:19-0500 Body temperature 97.81 [degF] German Pires FIELD SUPPORT REPRESENTATIVE.SALES ADMINISTRATOR Work Phone: [facility] 11-03-2022 10:19-0500 Body weight 75.75 kg German Pires FIELD SUPPORT REPRESENTATIVE.SALES ADMINISTRATOR Work Phone: [facility] 11-03-2022 10:19-0500 Diastolic blood pressure 60 mm[Hg] German Pires FIELD SUPPORT REPRESENTATIVE.SALES ADMINISTRATOR Work Phone: [facility] 11-03-2022 10:19-0500 Heart rate 85 /min German Pires FIELD SUPPORT REPRESENTATIVE.SALES ADMINISTRATOR Work Phone: [facility] 11-03-2022 10:19-0500 SaO2% (BldA) [Mass fraction] 100 % German Pires FIELD SUPPORT REPRESENTATIVE.SALES ADMINISTRATOR Work Phone: [facility] 11-03-2022 10:19-0500 Systolic blood pressure 118 mm[Hg] German Pires FIELD SUPPORT REPRESENTATIVE.SALES ADMINISTRATOR Work Phone: [facility] 10-05-2022 11:39-0500 Body temperature 97.7 [degF] Yassine Link MD Work Phone: [facility] 10-05-2022 11:39-0500 Body weight 81.19 kg Yassine Link MD Work Phone: [facility] 10-05-2022 11:39-0500 Diastolic blood pressure 70 mm[Hg] Yassine Link MD Work Phone: [facility] 10-05-2022 11:39-0500 Heart rate 72 /min Yassine Link MD Work Phone: [facility] 10-05-2022 11:39-0500 Respiratory rate 18 /min Yassine Link MD Work Phone: [facility] 10-05-2022 11:39-0500 Systolic blood pressure 120 mm[Hg] Yassine Link MD Work Phone: [facility] 09-26-2022 10:32-0400 Body temperature 97.2 [degF] Yassine Link MD Work Phone: [facility] 09-26-2022 10:32-0400 Body weight 76.66 kg Yassine Link MD Work Phone: [facility] 09-26-2022 10:32-0400 Diastolic blood pressure 68 mm[Hg] Yassine Link MD Work Phone: [facility] 09-26-2022 10:32-0400 Heart rate 84 /min Yassine Link MD Work Phone: [facility] 09-26-2022 10:32-0400 Respiratory rate 20 /min Yassine Link MD Work Phone: [facility] 09-26-2022 10:32-0400 Systolic blood pressure 124 mm[Hg] Yassine Lnik MD Work Phone: [facility] 08-31-2022 09:09-0400 Heart rate 85 /min Panchito Stephens FIELD SUPPORT REPRESENTATIVE.HEALTH ADVISOR Work Phone: [facility] 08-31-2022 09:09-0400 Respiratory rate 16 /min Panchito Stephens FIELD SUPPORT REPRESENTATIVE.HEALTH ADVISOR Work Phone: [facility] 08-31-2022 09:09-0400 SaO2% (BldA) [Mass fraction] 98 % Panchito Stephens FIELD SUPPORT REPRESENTATIVE.HEALTH ADVISOR Work Phone: [facility] 07-28-2022 17:07-0400 Body temperature 97.3 [degF] Yassine Link MD Work Phone: [facility] 07-28-2022 17:07-0400 Body weight 77.11 kg Yassine Link MD Work Phone: [facility] 07-28-2022 17:07-0400 Diastolic blood pressure 68 mm[Hg] Yassine Link MD Work Phone: [facility] 07-28-2022 17:07-0400 Heart rate 80 /min Yassine Link MD Work Phone: [facility] 07-28-2022 17:07-0400 Respiratory rate 20 /min Yassine Link MD Work Phone: [facility] 07-28-2022 17:07-0400 SaO2% (BldA) [Mass fraction] 99 % Yassine Link MD Work Phone: [facility] 07-28-2022 17:07-0400 Systolic blood pressure 112 mm[Hg] Yassine Link MD Work Phone: [facility] 06-19-2022 11:43-0400 Body weight 77.11 kg German Pires FIELD SUPPORT REPRESENTATIVE.SALES ADMINISTRATOR Work Phone: [facility] 06-19-2022 11:43-0400 Diastolic blood pressure 78 mm[Hg] German Pires FIELD SUPPORT REPRESENTATIVE.SALES ADMINISTRATOR Work Phone: [facility] 06-19-2022 11:43-0400 Heart rate 84 /min German Pires FIELD SUPPORT REPRESENTATIVE.SALES ADMINISTRATOR Work Phone: [facility] 06-19-2022 11:43-0400 Respiratory rate 16 /min German Pires FIELD SUPPORT REPRESENTATIVE.SALES ADMINISTRATOR Work Phone: [facility] 06-19-2022 11:43-0400 Systolic blood pressure 118 mm[Hg] German Pires FIELD SUPPORT REPRESENTATIVE.SALES ADMINISTRATOR Work Phone: [facility] 05-23-2022 11:44-0400 Body temperature 97.2 [degF] Yassine Link MD Work Phone: [facility] 05-23-2022 11:44-0400 Body weight 78.02 kg Yassine Link MD Work Phone: [facility] 05-23-2022 11:44-0400 Diastolic blood pressure 70 mm[Hg] Yassine Link MD Work Phone: [facility] 05-23-2022 11:44-0400 Heart rate 72 /min Yassine Link MD Work Phone: [facility] 05-23-2022 11:44-0400 Respiratory rate 16 /min Yassine Link MD Work Phone: [facility] 05-23-2022 11:44-0400 Systolic blood pressure 116 mm[Hg] Yassine Link MD Work Phone: [facility] 05-04-2022 13:52-0400 Body temperature 97.39 [degF] Yassine Link MD Work Phone: [facility] 05-04-2022 13:52-0400 Body weight 79.2 kg Yassine Link MD Work Phone: [facility] 05-04-2022 13:52-0400 Diastolic blood pressure 70 mm[Hg] Yassine Link MD Work Phone: [facility] 05-04-2022 13:52-0400 Heart rate 76 /min Yassine Link MD Work Phone: [facility] 05-04-2022 13:52-0400 Respiratory rate 16 /min Yassine Link MD Work Phone: [facility] 05-04-2022 13:52-0400 Systolic blood pressure 112 mm[Hg] Yassine Link MD Work Phone: [facility] 02-24-2022 09:58-0400 Body weight 77.56 kg German Pires FIELD SUPPORT REPRESENTATIVE.SALES ADMINISTRATOR Work Phone: [facility] 02-24-2022 09:58-0400 Diastolic blood pressure 72 mm[Hg] German Pires FIELD SUPPORT REPRESENTATIVE.SALES ADMINISTRATOR Work Phone: [facility] 02-24-2022 09:58-0400 Heart rate 76 /min German Pires FIELD SUPPORT REPRESENTATIVE.SALES ADMINISTRATOR Work Phone: [facility] 02-24-2022 09:58-0400 Respiratory rate 16 /min German Pires FIELD SUPPORT REPRESENTATIVE.SALES ADMINISTRATOR Work Phone: [facility] 02-24-2022 09:58-0400 Systolic blood pressure 102 mm[Hg] German Pires FIELD SUPPORT REPRESENTATIVE.SALES ADMINISTRATOR Work Phone: [facility] Encounters Encounter Date Encounter Type Care Provider Facility Start: 11-27-2023 End: 11-27-2023 ambulatory GERMAN PIRES Facility:[facility] Start: 11-22-2023 End: 11-22-2023 ambulatory TAYLOR ESPARZA Facility:[facility] Start: 11-21-2023 End: 11-21-2023 Emergency department patient visit MAYI REAVES MD Facility: Start: 11-21-2023 End: 11-21-2023 Emergency department patient visit MAYI REAVES MD [facility] Start: 11-20-2023 End: 11-20-2023 ambulatory YASSINE LINK Facility:[facility] Start: 10-02-2023 ambulatory Yassine herron MD Work Phone: [facility] [place] Procedures Date Procedure Procedure Detail Performing Clinician Start: 07-28-2022 Urnls dip stick/tabl et rgnt auto w/o microscopy Yassine Link MD Work Phone: Start: 08-23-2021 Adult depression scr eening assessment German Pires FIELD SUPPORT REPRESENTATIVE.SALES ADMINISTRATOR Work Phone: Colonoscopy MAYI REAVES MD Hysterectomy MAYI REAVES MD Shoulder region stru cture (body structure) MAYI REAVES MD Specimen from breast obtained by biopsy (specimen) MAYI REAVES MD Plan of Treatment Date Care Activity Detail Author Start: 10-01-2024 Annual PCP Team Portrait Consultant luis alberto Disease Visit Annual PCP Team Chronic Disease Visit [facility] Start: 05-28-2024 ANNUAL PCP TEAM GRAVE DIGGER LUIS ALBERTO DISEASE VISIT ANNUAL PCP TEAM CHRONIC DISEASE VISIT [facility] Start: 03-12-2024 ANNUAL PCP TEAM GRAVE DIGGER LUIS ALBERTO DISEASE VISIT ANNUAL PCP TEAM CHRONIC DISEASE VISIT [facility] Start: 02-21-2024 ANNUAL PCP TEAM GRAVE DIGGER LUIS ALBERTO DISEASE VISIT ANNUAL PCP TEAM CHRONIC DISEASE VISIT [facility] Start: 12-28-2023 ANNUAL PCP TEAM GRAVE DIGGER LUIS ALBERTO DISEASE VISIT ANNUAL PCP TEAM CHRONIC DISEASE VISIT [facility] Start: 12-01-2023 ANNUAL PCP TEAM GRAVE DIGGER LUIS ALBERTO DISEASE VISIT ANNUAL PCP TEAM CHRONIC DISEASE VISIT [facility] Start: 11-09-2023 ANNUAL PCP TEAM GRAVE DIGGER LUIS ALBERTO DISEASE VISIT ANNUAL PCP TEAM CHRONIC DISEASE VISIT [facility] Start: 10-05-2023 ANNUAL PCP TEAM GRAVE DIGGER LUIS ALBERTO DISEASE VISIT ANNUAL PCP TEAM CHRONIC DISEASE VISIT [facility] Start: 09-26-2023 ANNUAL PCP TEAM GRAVE DIGGER LUIS ALBERTO DISEASE VISIT ANNUAL PCP TEAM CHRONIC DISEASE VISIT [facility] Start: 07-28-2023 ANNUAL PCP TEAM GRAVE DIGGER LUIS ALBERTO DISEASE VISIT ANNUAL PCP TEAM CHRONIC DISEASE VISIT [facility] Start: 07-27-2023 Influenza vaccination C [facility] Start: 05-25-2023 Influenza vaccination INFLUENZA (#1) [facility] Immunizations Immunization Date Immunization Notes Care Provider Fa christiano 01-17-2019 influenza virus vaccine, unspecified formulation Yassine Link MD Work Phone: [facility] 09-24-2012 tetanus toxoid, redu yuri diphtheria toxoid, and acellular pertussis vaccine, adsorbed German Pires FIELD SUPPORT REPRESENTATIVE.SALES ADMINISTRATOR Work Phone: [facility] Work Phone: Payers Date Payer Category Payer Unknown [id number] 2020 Medicaid [employer] [id number] 2020-Present [phone] [address] [place] [address] Medicaid [id number] 2020 Medicaid [id number] 2020 Medicaid [id number] 1984 Unknown [id number] 1984 Unknown [id number] 1984 Unknown [id number] Social History Date Type Detail Facility Start: 10-26-1992 End: 07-28-2022 Tobacco smoking status FLIS Smokes tobacco daily [facility] Work Phone: Start: 10-26-1992 History of tobacco use Cigarette Smoker [facility] Start: 02-24-2022 End: 09-21-2023 Alcohol intake Current non-drinker of alcohol (finding) [facility] Start: 08-23-2021 End: 11-09-2022 History SDOH Alcohol Frequency 1 [facility] Start: 08-23-2021 History SDOH Alcohol Std Drinks 98 [facility] Start: 08-23-2021 History SDOH Social Connections Phone 5 [facility] Start: 08-23-2021 End: 11-09-2022 History SDOH Social Connections Membership 2 [facility] Start: 08-23-2021 End: 11-09-2022 History SDOH Social Connections Living 3 [facility] Start: 08-23-2021 End: 11-09-2022 History SDOH Stress 4 [facility] Start: 08-23-2021 Education 9 [facility] Start: 09-01-2020 End: 07-28-2022 Tobacco Comment started age 17 [facility] Start: 1985 Sex Assigned At Female [facility] Start: 02-14-2022 End: 10-05-2022 Exposure to SARS-CoV-2 (event) Not sure [facility] Work Phone: Start: 09-08-2021 End: 10-01-2023 Cigarettes smoked current (pack per day) - Reported 1 [facility] Start: 09-08-2021 End: 07-28-2022 Tobacco use and exposure Smokeless tobacco non-user [facility] Work Phone: Start: 09-26-2022 End: 11-09-2022 History SDOH Alcohol Std Drinks 0 [facility] Start: 11-09-2022 End: 10-01-2023 Social connection and isolation panel [facility] Do you belong to any clubs or organizations such as mandaen groups, unions, fraternal or athletic groups, or school groups? No [facility] Are you now , , , , never or living with a partner? [facility] How often to you hav e a drink containing alcohol? Never [facility] How many standard dr inks containing alcohol do you have on a typical day? Patient does not drink [facility] How hard is it for y ou to pay for the very basics like food, housing, medical care, and heating Somewhat hard [facility] Do you feel stress - tense, restless, nervous, or anxious, or unable to sleep at night because your mind is troubled all the time - these days [OSQ] Rather much [facility] (I/We) worried [facility] (my/our) food would run out before (I/we) got money to buy more. Often true [facility] In the past 12 month s, was there a time when you were not able to pay the mortgage or rent on time? Yes [facility] Start: 07-08-2021 Gender identity Identifies as female gender (finding) [facility] Start: 07-08-2021 Sexual orientation Heterosexual (finding) [facility] Start: 10-12-2022 Tobacco smoking status Heavy tobacco smoker (finding) [facility] Sex Assigned At Sex [facility] Mental Status Date Assessment Result Facility 11-21-2023 Mental Status Orientation Oriented x 4 [facility] Clinical Notes 12-13-2019 to 11-27-2023 Yassine Link MD - 10/01/2023 2:53 PM ESTTelephone Encounter - Em Khanna LPN - 09/21/2023 3:32 PM EDTTelephone Encounter - German Pires APRN.SALES ADMINISTRATOR - 09/21/2023 3:22 PM EDT Note Date & Type Note Facility 11-27-2023 Note HNO ID: [id number] Author: German Pires APRN.SALES ADMINISTRATOR Service: ? Author Type: Nurse Specialist Type: Progress Notes Filed: 11/27/2023 8:45 AM Note Text: SUBJECTIVE: Hepatitis B Vaccine(1 of 3 - 3-dose series) Never done Covid-19 Vaccine(1) Never done Pneumococcal Vaccine(1 of 2 - PCV) Never done DTaP,Tdap,Td Vaccine(2 - Td or Tdap) due on 09/24/2022 Influenza Vaccine(1) due on 07/27/2023 HPI Anne Chung is a 38 year old female. PMH significant for ACTIVE PROBLEM LIST Asthma Esophageal Reflux Tobacco Use Disorder Anxiety With Depression Overactive Bladder Pain of Left Shoulder Region Non-Adherence to Medical Treatment PCP: Yassine Link MD Presents today emergency department follow-up visit. She was seen at [facility] November 19, 2023 with abscess of left buttocks. She reported symptoms started 1 week prior to arrival. She reported trying to express out pus without success. She reported severe pain in the area. She reports its past trying to get this to drain. Incision and draining was completed. Incision length 1.5 cm. Purulent material was expressed. Wick was placed using 1 inch of Nu Gauze. She was treated with doxycycline 100 mg oral twice daily x 7 days. She was advised to follow-up with primary care in 2 to 3 days for wick removal and to take antibiotics until gone. She presented to clinic on 11/[address] Link. Continued with antibiotic. Provided with hydrocodone/acetaminophen. Refer to surgical provider for a follow-up incision and drainage. She returned to emergency department on 11/21 [facility] for incisional pain. Provided with oxycodone and acetaminophen. Subsequently seen by general surgeon on 11/22. IANDD not required. To follow up as needed. Presents today for pain at abscess site. Ibuprofen 800 mg as needed helping somewhat. Other pain medications helping somewhat.Notes pain continues unchanged from initial point.Notes was using a gauze dressing but stopped using one due to sticking too much to wound. Wound healing: yes seems smaller Taking antibiotic: yes Drainage:clear yellow drainage Fever:no Review of Systems Constitutional: Negative. Skin: Positive for wound. Objective BP 114/73 Pulse 73 Resp 16 Wt 73.5 kg (162 lb) LMP 05/16/2015 BMI 31.64 kg/m? Physical Exam Vitals and nursing note [...] Skin integrity normal. Skin: General: Skin is warm and dry. Comments: wound ~3/4 in length, ~1/4 depth, unable to probe with cotton applicator to check for full depth/tunneling due to pain, pink wound bed, no surrounding erythema or warmth Neurological: Mental Status: She is alert. ALLERGIES Allergen Reactions Bees Anaphylaxis Pt had swelling, was given epipen at ER. Morphine Rash Left arm turned red when given IV morphine Penicillins Other: See Comments Patient refuses due to family allergy to PCN. Valium [Diazepam] Hives Hives on chest only. Tessalon [Benzonata* Rash Medication estradiol (ESTRACE) 2 mg tablet once daily. sulfamethoxazole-trimethoprim (BACTRIM DS) 800-160 mg per tablet Take by mouth. LORazepam (ATIVAN) 0.5 mg Take 1 tablet by mouth at bedtime as needed (anxiety) for up to 60 days. albuterol HFA (VENTOLIN HFA) 90 mcg/actuation inhaler INHALE TWO PUFFS BY MOUTH EVERY 6 HOURS NEEDED FOR WHEEZING OR SHORTNESS OF BREATH ondansetron orally disintegrating (ZOFRAN ODT) 4 mg disintegrating tablet Take 1 tablet by mouth every 6 hours as needed for nausea/vomiting. conj estrogens-bazedoxifene 0.45-20 mg lidocaine (LIDODERM) 5 % Apply 1 Patch as directed every 24 hours. to affected area. Remove patch after 12 hours. EPINEPHrine (EPIPEN) 0.3 mg/0.3 mL auto-injector GIVE ONE DOSE INTO LATERAL THIGH FOR ALLERGIC REACTION. REPEAT DOSE IN 5-15 MINUTES IF NOT IMPROVING HYDROcodone-acetaminophen (NORCO) 5-325 mg per tablet Take 1 tablet by mouth every 6 hours as needed for pain for up to 3 days. ibuprofen (MOTRIN) 800 mg tablet Take 1 tablet by mouth every 8 hours as needed for pain or fever (specify temp.) (take with food). lidocaine 4 % gel Apply to affected area two times a day as needed for up to 5 days. mupirocin (BACTROBAN) 2 % ointment Apply 1 application to affected area two times a day. until healed Cephalexin 500 mg tab Take by mouth. (Patient not taking: Reported on 11/27/2023) doxycycline monohydrate (MONODOX) 100 mg capsule Take 1 capsule by mouth two times a day. (Patient not taking: (more content not included)... [facility] 11-22-2023 Note HNO ID: [id number] Author: Taylor Esparza MD Service: ? Author Type: Physician Type: Progress Notes Filed: 11/22/2023 6:50 PM Note Text: PROGRESS NOTES PATIENT NAME: Anne Chung Consultation requested by Yassine Cedeno MD [[id number]] for an opinion regarding gluteal abscess. My final recommendations will be communicated back to the requesting physician by way of shared Medical record or letter to requesting physician via US mail. Assessment ASSESSMENT AND PLAN The patient is a 38-year-old female who presents with a right gluteal abscess which was drained in the [facility] ER. This seems to be doing [...] a gluteal abscess. She was seen at [facility] ER and had this drained on [...] 2014 Laparoscopy twice PAST SURGICAL HISTORY OF 2011 [...] Father Heart Fa (more content not included)... [facility] 11-21-2023 Hospital Discharg e instructions Patient Education [...] you to stop. You may use an [id number] pain medicine to control pain, unless another [...] the abscess Boil returns after getting better [id number] [employer]. [address] [place] [address]. All rights reserved. This information is not intended as a substitute for professional medical care. Always follow your healthcare professional's instructions. Follow Up Care 11/21/2023 15:43:04 With:YASSINE LINK MD Address: [address] [place] [address]- When:2-4 days [facility] 11-21-2023 Note Basic Information Time Seen: MAYI REAVES MD 11/21/2023 15:47 History of Present Illness Patient is a 38-year-old female presenting to the emergency department today for evaluation of redness around her left buttock. She states that she was diagnosed with an abscess 2 days ago at [facility] and had an incision and drainage [...] Follow Up With When Contact Information YASSINE LINK MD Within 2-4 days [address] [place] [address]- Additional Instructions: Medications What How Much When Why Instructions New acetaminophen-hydrocodone (Treynor 325- 5 mg oral tablet) 1 tab(s) [...] CAROLINE ORTIZ MD on 11/21/2023 06:03 PM [facility] 11-21-2023 Note Discharge Instructions Thank you for allowing [facility] to assist you with your healthcare needs. [...] the Following Appointments Follow Up with YASSINE LINK MD When Within 2-4 days Where: [address] [place] [address]- Allergies Bee Stings (swelling) Tessalon Perles (rash) morphine (hives) penicillin (hives) Medications Please ask your primary doctor or pharmacist before taking any other medication not listed, including over the counter drugs, herbal medications, vitamins and or supplements as they may interact with your home medications. What How Much When Why Instructions Last Dose New acetaminophen-hydrocodone (Treynor 325- 5 mg oral tablet) 1 tab(s) by mouth Every 6 hours as needed for for pain Cellulitis Duration: 1 Days Printed Prescription New acetaminophen-hydrocodone (Treynor 325- 5 mg oral tablet) 1 tab(s) [...] you to stop. You may use an jedn-drx-kpuleue pain medicine to control pain, unless another [...] the abscess Boil returns after getting better [id number] [employer]. [address] [place] [address], [place] [address]. All rights reserved. This information is not intended as a substitute for professional medical care. Always follow your healthcare professional's instructions. Additional Information VACCINATE! IT SAVES LIVES! Members of the community who have not yet received the COVID-19 vaccine and would like to receive it can visit one of [facility] vaccine clinics. There are many vaccine clinic locations within the [facility]. For locations and available times, please visit [email or web address] [email or web address] It is important to note that some COVID mobile vaccine clinics are held outdoors and may be canceled in rainy or stormy conditions. To learn more about pediatric vaccinations (ages 5-11), we invite you to visit the [facility] webpage. [email or web address]://[email or web address] [email or web address]-Qkybbsvrprj-Freq onsghh-Tgjkb-[email or web address].html To learn more about the COVID-19 vaccine, we invite you to visit the CDC website for a list of frequently asked questions. https://www.cdc.gov/coronavirus/ 2019-ncov/vaccines/faq.html [facility] Patient Portal Access Instructions: Stay connected with your healthcare team and access your personal medical information anytime with the [facility] Patient Portal. If you would like a full copy of your medical records please contact the [facility] Medical Records Department Sunday through Sunday between 8a.m. and 4:30p.m. Please follow the directions below to access the portal: 1.Access the email account you provided upon registration to the hospital.2.Look for an invitation email from [facility].3.Open the email and access the invitation link: Accept Invitation to [facility]4.Fill in the required hankins to create your account. Sign into [email or web address] with your username and password that you [...] you will allow to register on the [facility] Patient Portal for access to your information. You can also access the [facility] Patient Portal on the [employer]. Simply click on Health Records under Health Data and then click on the [facility] logo. HOW TO SAFELY DISPOSE OF PRESCRIPTION [...] Call your local pharmacy or go to http://Runrun.it.Badger Maps/3F6Or2w to find one close to you.3.Make use of household items: Use cat litter or old coffee grounds to dispose medications if other options are not available. Mix your drugs with these household products, seal them in an airtight container and throw it into the garbage. Call [facility]: [phone] to be sure your drugs can be [...] been reviewed and explained to me and POPPY Rubio TRINA L understand my current condition and have read and understand these discharge instructions. I have received a written copy of the plan/instructions. If I have questions, I am aware that I should contact my doctor. Patient/Assembler Gold Frame Signature: Date/Time: Relationship to Patient: Witness Name/Signature: Date/Time: [facility] 11-20-2023 Note HNO ID: [id number] Author: Yassine Link MD Service: ? Author Type: Physician Type: Progress Notes Filed: 11/20/2023 3:40 PM Note Text: This note was created using Lessonwriterriter. Subjective Anne Chung is a 38 year [...] HYDROCODONE 5 MG-ACETAMINOPHEN 325 MG TABLET Yassine Link MD [facility] 10-01-2023 Note HNO ID: [id number] Author: Yassine Link MD Service: ? Author Type: Physician Type: [...] temporary relief. She was going to pickle solution maker albuterol today. She had no contact with [...] goals of therapy, and side effects. Yassine Link MD [facility] 10-01-2023 History of Presen t illness Narrative This note was created using Wavesat. Subjective DISTANCE HEALTH VISIT Anne Chung's identity [...] temporary relief. She was going to pickle solution maker albuterol today. She had no contact with [...] goals of therapy, and side effects. Yassine Link MD documented in this encounter [facility] 09-21-2023 Miscellaneous Notes Pharmacist notified of providers message and verbalized understanding. Attempted to also contact patient with information but no answer and voice mailbox is full OK, see below.Switched to ibuprofen 800 mg TID. Eugenio, Pharmacist with [facility] calling regarding pt's script for Toradol received today. Eguenio states there is a black box warning on this medication where patient must first receive a Toradol injection in the office before pills can be dispensed. Pharmacist updated that pt declined injection in office today. Pharmacist states he is unable to fill the prescription. Please advise pharmacy and patient. Thank you. documented in this encounter [facility] 09-21-2023 Note HNO ID: [id number] Author: German Pires APRN.SALES ADMINISTRATOR Service: ? Author Type: Nurse Specialist Type: Progress Notes Filed: 09/21/2023 1:55 PM Note Text: SUBJECTIVE: Hepatitis B Vaccine(1 of 3 - 3-dose series) Never done Covid-19 Vaccine(1) Never done Pneumococcal Vaccine(1 - PCV) Never done DTaP,Tdap,Td Vaccine(2 - Td or Tdap) due on 09/24/2022 Influenza Vaccine(1) due on 07/27/2023 HPI Anne Chung is a 37 year old female. PMH significant for ACTIVE PROBLEM LIST Asthma Esophageal Reflux Tobacco Use Disorder Anxiety With Depression Overactive Bladder Pain of Left Shoulder Region Non-Adherence to Medical Treatment PCP: Yassine Link MD Presents today regarding concern for sprained ankle. She was seen earlier today at [facility] emergency department for this complaint. She reported [...] improved with conse (more content not included)... [facility] 07-03-2023 Miscellaneous Notes TERESE: 05/28/2023 Last refill: 04/06/2023 QTY: 30 Refills: 0 documented in this encounter [facility] 06-01-2023 Miscellaneous Notes Patient has been [...] you. ANITRA Pastrana documented in this encounter [facility] 05-31-2023 Note HNO ID: [id number] Author: Hao Butcher PT Service: ? Author Type: Physical Therapist Type: Progress Notes Filed: 05/31/2023 8:57 AM Note Text: 05/31/2023 [facility] PHYSICAL THERAPY [...] scheduled additional follow-up appointments. Hao Butcher PT [facility] 05-28-2023 Note HNO ID: [id number] Author: Yassine Link MD Service: ? Author Type: Physician Type: Progress Notes Filed: 05/28/2023 7:55 PM Note Text: This note was created using Lessonwriterriter. Subjective Patient presents with: ED Follow-up Anne Chung is a 37 year old female who is status post right oophorectomy 05/10/[address] Romelia Cunningham in [facility]. She went back to work this weekend and developed progressively severe sharp umbilical pain with nausea. She went to the [place] ED yesterday, where labs were labs and CT scan of of the abdomen and pelvis were within normal limits. She was given Toradol with no relief and one dose of Treynor. She was advised to follow up with [...] - ONDANSETRON 4 MG DISINTEGRATING TABLET Yassine Link MD [facility] 05-28-2023 History of Presen t illness Narrative This note was created using Lessonwriterriter. Subjective Patient presents with: ED Follow-up Anne Chung is a 37 year old female who is status post right oophorectomy 05/10/[address] Romelia Cunningham in [facility]. She went back to work this weekend and developed progressively severe sharp umbilical pain with nausea. She went to the [place] ED yesterday, where labs were labs and CT scan of of the abdomen and pelvis were within normal limits. She was given Toradol with no relief and one dose of Treynor. She was advised to follow up with [...] - ONDANSETRON 4 MG DISINTEGRATING TABLET Yassine Link MD documented in this encounter [facility] 04-06-2023 Miscellaneous Notes Patient notified, verbalized [...] Leticia Persaud LPN documented in this encounter [facility] 03-12-2023 Note HNO ID: [id number] Author: Yassine Link MD Service: ? Author Type: Physician Type: Progress Notes Filed: 03/12/2023 6:46 PM Note Text: This note was created using Lessonwriterriter. Subjective DISTANCE HEALTH VISIT Anne Chung's identity [...] willingness to follow recommendations. Yassine Link MD [facility] 03-12-2023 History of Presen t illness Narrative This note was created using Wavesat. Subjective DISTANCE HEALTH VISIT Anne Chung's identity [...] willingness to follow recommendations. Yassine Link MD documented in this encounter [facility] 02-23-2023 Miscellaneous Notes Last office visit: [...] Shelbie Bass LPN documented in this encounter [facility] 02-20-2023 Note HNO ID: [id number] Author: Beatrice Camargo APRN.HEALTH ADVISOR Service: ? Author Type: Nurse Practitioner Type: [...] most recently seen by pain management with [facility] on 02/19. He recommended injections but needed [...] of adhesions, Dr. Romelia Cunningham LAPS ABD PRTMANDOMENTUM DX W/WO SPEC BR/WA SPX [...] Heart Mother disea (more content not included)... [facility] 02-20-2023 Miscellaneous Notes Ms. Chung called in response to a [employer] message about scheduling an appointment with [facility]. She would like a call back to let her know why she needs the appointment. Deborah Rincon Deep Sea Diver documented in this encounter [facility] 02-13-2023 Note HNO ID: [id number] Author: RT Mirlande(R) Service: ? Author Type: [...] RT Mirlande(R) February 13, 2023 2:02 PM [facility] 02-05-2023 Miscellaneous Notes TERESE: 01/29/2023 [facility] Last refill: 01/29/2023 QTY: 9 Refills: 0 documented in this encounter [facility] 01-29-2023 Note HNO ID: [id number] Author: German Pires APRN.SALES ADMINISTRATOR Service: ? Author Type: Nurse Specialist Type: Progress Notes Filed: 01/29/2023 11:58 AM Note Text: I have communicated my name and active licensure. The patient's identity and physical location were verified at the time of this visit. Either the patient or their legal sales representative has been informed of the risks and benefits of -- and alternatives to -- treatment through a remote evaluation and consents to proceed with the evaluation remotely. Video visit. In [place]. Patient only. Consents to visit. SUBJECTIVE: HEPATITIS [...] HPI excerpted from previous visits: PCP: Yassine Link MD Presents today regarding a lump. She reports being seen by her LINING INSERTER Dr. Cunningham for folliculitis which she reports [...] been ordered by her vascular surgeon, scheduled. [employer] messages indicate insurance denial. Provider and vascular [...] OVER 5-15 LONNIE (more content not included)... [facility] 01-29-2023 History of Presen t illness Narrative I have communicated my name and active licensure. The patient's identity and physical location were verified at the time of this visit. Either the patient or their legal sales representative has been informed of the risks and benefits of -- and alternatives to -- treatment through a remote evaluation and consents to proceed with the evaluation remotely. Video visit. In [place]. Patient only. Consents to visit. SUBJECTIVE: HEPATITIS [...] HPI excerpted from previous visits: PCP: Yassine Link MD Presents today regarding a lump. She reports being seen by her LINING INSERTER Dr. Cunningham for folliculitis which she reports [...] been ordered by her vascular surgeon, scheduled. [employer] messages indicate insurance denial. Provider and vascular [...] to see pain management Dr. Yang at [facility]. PCP referred her to pain management, [...] 1 - N/A documented in this encounter [facility] 12-29-2022 Miscellaneous Notes Peer to Peer requested [place]: [id number] [place] [address] MRI CERVICAL SPINE WO IVCON Spoke with At [facility] - requested further information. Called pt and documented necessary information in telephone encounter from 12/29/22. Called insurance company back - requested us to fax this documentation for further review. Fax information faxed to . Received confirmation receipt from transmission report. Carol Rainey APRN.CNP documented in this encounter [facility] 12-29-2022 Miscellaneous Notes Called [employer] at 9:20am today 12/29/22 for peer [...] past 6 months since she works at [employer] and the job requires lifting. Pt to f/u with pain management - next appointment is 01/16/23. Pt states pain management would like MRIs before considering invasive treatments. No vascular surgery plans at this time. I will contact [employer] again to discuss this information to seek approval for MRIs. Carol Rainey APRN.YORDY documented in this encounter [facility] 12-28-2022 Note HNO ID: [id number] Author: Yassine Link MD Service: ? Author Type: Physician Type: Progress Notes Filed: 12/28/2022 1:55 PM Note Text: This note was created using NoteWriter. Subjective Anne Chung is a 37 year [...] one month, pending evaluations. Letter done. Yassine Link MD [facility] 12-28-2022 History of Presen t illness Narrative This note was created using Lessonwriterriter. Subjective Anne Chung is a 37 year [...] one month, pending evaluations. Letter done. Yassine Link MD documented in this encounter [facility] 12-28-2022 Note HNO ID: [id number] Author: Hao Butcher PT Service: ? Author [...] to: current objective clinical presentation . Pt demo's positive empty can test on the L and painful arc sign. She will benefit from skilled therapy services to meet the goals established for this plan of care as noted below. Goals for Episode of Care: created on 12/28/22 through 02/22/23 Pt will demo 5/5 strength via MMT without pain of the L shoulder for ease of work duties [place] in home exercise program. Increase ROM of the L shoulder to WNL for reaching overhead Patient Goals: Decrease pain Planned Interventions, Frequency, and Duration: Current Frequency: 1x/week Duration: 4 weeks Total Number of Visits Planned: 4 Planned Treatment Interventions: Therapeutic exercise (80446), Neuromuscular re-education (45053), Manual therapy (59973), Self-skilled nursing management (80153), Patient/Family/Caregiver Education PLAN FOR NEXT VISIT: Supraspinatus [...] Independent without limitations Relevant History Preferred Language: Eritrean Intake Information: Prescription present Previous Treatment: Physical [...] L Shoulder A (more content not included)... [facility] 12-28-2022 History of Presen t illness Narrative [...] L shoulder for ease of work duties [place] in home exercise program. Increase ROM of the L shoulder to WNL for reaching overhead Patient Goals: Decrease pain Planned Interventions, Frequency, and Duration: Current Frequency: 1x/week Duration: 4 weeks Total Number of Visits Planned: 4 Planned Treatment Interventions: Therapeutic exercise (90519), Neuromuscular re-education (31133), Manual therapy (94545), Self-skilled nursing management (37685), Patient/Family/Caregiver Education PLAN FOR NEXT VISIT: Supraspinatus [...] Independent without limitations Relevant History Preferred Language: Eritrean Intake Information: Prescription present Previous Treatment: Physical [...] Hao Butcher PT documented in this encounter [facility] 12-20-2022 Miscellaneous Notes Patient has been [...] Leticia Persaud LPN documented in this encounter [facility] 12-11-2022 Note HNO ID: [id number] Author: German Pires APRN.SALES ADMINISTRATOR Service: ? Author Type: Nurse Specialist Type: Progress Notes Filed: 12/11/2022 3:24 PM Note Text: Video visit. In [place]. Patient only. Consents to visit. SUBJECTIVE: HEPATITIS B(1 of 3 - 3-dose series) Never done COVID-19 VACCINE(1) Never done DTAP,TDAP,TD(2 - Td or Tdap) due on 09/24/2022 HPI Anne Chung is a 37 year old female. PMH significant for ACTIVE PROBLEM LIST Asthma Esophageal Reflux Tobacco Use Disorder Thoracic Outlet Syndrome Anxiety With Depression Overactive Bladder PCP: Yassine Link MD Presents today regarding a lump. She reports being seen by her LINING INSERTER Dr. Cunningham for folliculitis which she reports [...] Positive for arthralgias and neck pain. Objective [facility] 05/16/2015 Physical Exam Vitals and nursing note [...] ICD10: M54.2 - (more content not included)... [facility] 12-11-2022 History of Presen t illness Narrative Video visit. In [place]. Patient only. Consents to visit. SUBJECTIVE: HEPATITIS B(1 of 3 - 3-dose series) Never done COVID-19 VACCINE(1) Never done DTAP,TDAP,TD(2 - Td or Tdap) due on 09/24/2022 HPI Anne Chung is a 37 year old female. PMH significant for ACTIVE PROBLEM LIST Asthma Esophageal Reflux Tobacco Use Disorder Thoracic Outlet Syndrome Anxiety With Depression Overactive Bladder PCP: Yassine Link MD Presents today regarding a lump. She reports being seen by her LINING INSERTER Dr. Cunningham for folliculitis which she reports [...] appointment with pain management, Dr. Yang at [facility] She will let us know if not feeling improved. German Pires APRN.SALES ADMINISTRATOR 20 min in visit Medical Decision Making: Problems: Moderate: 1+ chronic illnesses with change Risk: Moderate: Drug management Medical Decision Making Level: 4 - Moderate documented in this encounter [facility] 12-08-2022 Note HNO ID: [id number] Author: Estevan Blackman MD Service: ? Author Type: Physician Type: Progress Notes Filed: 12/10/2022 12:38 PM Note Text: [facility] DEPARTMENT OF VASCULAR SURGERY OUTPATIENT VISIT DATE December 08, 2022 OUTPATIENT VISIT TYPE ESTABLISHED SERVICE DATE: 12/08/2022 SERVICE TIME: 1:57 PM PRIMARY CARE PHYSICIAN: Yassine Link MD HISTORY OF PRESENT ILLNESS: Ms. Chung [...] 2014 Laparoscopy twice PAST SURGICAL HISTORY OF 2011 dental extraction SOCIAL HISTORY Social History Tobacco [...] for TPI J (more content not included)... [facility] 12-08-2022 Note HNO ID: [id number] Author: Rosas Riley MD Service: General Surgery Author Type: Physician Type: Progress Notes Filed: 12/08/2022 3:06 PM Note Text: [facility] General Surgery Rosas Riley M.D., F.A.C.S. [facility] [address] [id number] NAME: ANNE KUHN [facility] NO: [id number] DATE OF SERVICE: 12/08/2022 PLACE OF ENCOUNTER: [facility] Established patient recently hospitalized and discharged from [...] has any ongoing symptoms at any time. Leida PITTMAN/079 Audio #: [id number] Date Dictated: 12/08/2022 11:32:05 Date Typed: 12/08/2022 14:08:06 Date Revised: [facility] 12-08-2022 History of Presen t illness Narrative [facility] General Surgery Rosas Riley M.D., Antoine. [facility] [address] [id number] NAME: ANNE KUHN [facility] NO: [id number] DATE OF SERVICE: 12/08/2022 PLACE OF ENCOUNTER: [facility] Established patient recently hospitalized and discharged from [...] has any ongoing symptoms at any time. Leida PITTMAN/079 Audio #: [id number] Date Dictated: 12/08/2022 11:32:05 Date Typed: 12/08/2022 14:08:06 Date Revised: documented in this encounter [facility] 12-06-2022 Miscellaneous Notes Notified via [employer]. Left a message for pt to call [...] Levy Luu Ma documented in this encounter [facility] 12-06-2022 Miscellaneous Notes Patient seen. documented in this encounter [facility] 12-02-2022 Miscellaneous Notes See office visit. [...] Please advise patient. documented in this encounter [facility] 12-01-2022 History of Presen t illness Narrative This note was created using Lessonwriterriter. Subjective Anne Chung is a 37 year [...] offered to refer her to a different machine paint mixer in [facility]. Review of Systems Constitutional: Negative. Respiratory: Negative. [...] may consider referral to Dr. Bar. Yassine Link MD documented in this encounter [facility] 11-09-2022 History of Presen t illness [...] willingness to follow recommendations. Yassine Link MD S documented in this encounter [facility] 11-03-2022 Instructions German Pires APRN.SHANNEN - 11/03/2022 10:57 AM EST Keep area of concern clean and dry. Wash with soap and water daily. Avoid clothing over the area of concern. Follow-up with your LINING INSERTER if not feeling improved. documented in this encounter [facility] 11-03-2022 History of Presen t illness Narrative SUBJECTIVE: HEPATITIS B(1 of 3 - 3-dose series) Never done COVID-19 VACCINE(1) Never done DTAP,TDAP,TD(2 - Td or Tdap) due on 09/24/2022 HPI Anne Chung is a 36 year old female. PMH significant for ACTIVE PROBLEM LIST Asthma Esophageal Reflux Tobacco Use Disorder Thoracic Outlet Syndrome Anxiety With Depression Overactive Bladder PCP: Yassine Link MD Presents today regarding a lump. She reports being seen by her LINING INSERTER Dr. Cunningham for folliculitis which she reports [...] Pain medication x3 days Further follow-up with LINING INSERTER and PCP advised. ER for any severe or concerning symptoms - OXYCODONE-ACETAMINOPHEN 5 MG-325 MG TABLET - SULFAMETHOXAZOLE 800 MG-TRIMETHOPRIM 160 MG TABLET German Pires APRN.SHANNEN Medical Decision Making: Problems: Low: Acute, uncomplicated illness or injury Risk: Moderate: Drug management Medical Decision Making Level: 3 - Low documented in this encounter [facility] 10-23-2022 Miscellaneous Notes Last office visit: 10/05/22 Next appointment scheduled: 11/07/22 Patient phones requesting refills as follows: Requested Prescriptions Pending Prescriptions Disp Refills lidocaine (LIDODERM) 5 % 10 Patch 3 Sig: Apply 1 Patch as directed every 24 hours. to affected area. Remove patch after 12 hours. Please review and advise. Shelbie Bass LPN documented in this encounter [facility] 10-05-2022 Miscellaneous Notes Patient's request for medication is as follows Requested Prescriptions Signed Prescriptions Disp Refills oxyCODONE-acetaminophen (PERCOCET) 5-325 mg tablet 12 tablet 0 Sig: Take 1 tablet by mouth every 6 hours as needed for pain for up to 3 days. Authorizing Provider: YASSINE LINK Order entered - please phone pharmacy and notify patient. Yassine Link MD Pt called in checking on pain meds. Called and talked with providers nurse and she will ask him about medication. Hipolito from the [facility] reports they are out of this medication right now. States Pt is asking if provider could send it to [facility] in [place]. Patient has been identified by name and [...] Aliyah Trimble RN documented in this encounter [facility] 10-05-2022 Instructions Yassine Link MD - 10/05/2022 12:24 PM EST SEE GYNECOLOGY FOR EVALUATION AND TREATMENT. PERCOCET IS REFILLED THIS LAST TIME. documented in this encounter [facility] 10-05-2022 History of Presen t illness Narrative This note was created using Wavesat. Subjective Anne Chung is a 36 year old female. She continued with lower abdominal and right lower quadrant pain, moderately severe for almost 2 weeks now, aggravated by movement, and associated with nausea. Evaluation in the ER 09/26 showed no acute findings. A cyst was noted on the right ovary, and it was suggested she see her singer back tender about this. She had an appointment with [...] ED. It is not clear if her singer back tender will recommend surgery or if the pain is coming from this ovarian cyst. Shared medical decision making was done. Opioid has risks, and we agreed I am refilling this absolutely for the last time. Yassine Link MD documented in this encounter [facility] 10-05-2022 Miscellaneous Notes Patient returned call and given update below. Castillo Posey RN Left a message for pt to call the office and ask to speak to a nurse. Birgit Velazqeuz LPN See Dr. Link's response in 10/02 phone encounter: Patient's request for medication is as follows Requested Prescriptions Signed Prescriptions Disp Refills oxyCODONE-acetaminophen (PERCOCET) 5-325 mg tablet 12 tablet 0 Sig: Take 1 tablet by mouth every 6 hours as needed for pain for up to 3 days. Authorizing Provider: YASSINE LINK ER report reviewed. Percocet refilled for this one time only in addition to ER prescription. Please inform the patient. Beatrice Camargo APRN.CNP Patient has been identified by name and [...] Leticia Persaud LPN documented in this encounter [facility] 10-04-2022 Miscellaneous Notes Patient has been [...] Leticia Persaud LPN documented in this encounter [facility] 09-26-2022 Instructions Yassine Link MD - 09/26/2022 11:04 AM EDT I recommend ER evaluation. documented in this encounter [facility] 09-26-2022 History of Presen t illness [...] PAST SURGICAL HISTORY OF 2011 dental extraction Current Outpatient Medications Medication Sig [...] willingness to follow recommendations. Yassine Link MD documented in this encounter [facility] 08-31-2022 Note HNO ID: [id number] Author: Minoo Ortiz MA Service: ? Author Type: Laminator Preforms Type: Progress Notes Filed: 08/31/2022 12:03 PM [...] suicidal ideas. The patient is not nervous/anxious. [facility] 08-31-2022 Note HNO ID: [id number] Author: Panchito Stephens APRN.YORDY Service: ? Author Type: Nurse Practitioner Type: Progress Notes Filed: 08/31/2022 12:03 PM Note Text: [facility] Today's Date: 08/31/2022 Last Visit: N/A Name: [...] DATE OF EXAM: Feb 20 2018 9:38AM [facility] 0325 - MRI THORACIC SPINE WO IVCON [...] is no significan (more content not included)... [facility] 08-31-2022 Instructions Panchito Stephens APRN.YORDY - 08/31/2022 9:31 AM EDT Activity as tolerated Use Ice and/or heat as tolerated as needed documented in this encounter [facility] 08-31-2022 History of Presen t illness [...] not nervous/anxious. [facility] Today's Date: 08/31/2022 Last Visit: N/A [...] DATE OF EXAM: Feb 20 2018 9:38AM [facility] 0325 - MRI THORACIC SPINE WO IVCON [...] stenosis in the cervical and thoracic spine. Coffee Shop Attendant: JUSTIN Transcribe Date/Time: Feb 20 2018 9:51A Dictated [...] suspicious activity was identified. 08/31/2022 by Panchito Stephens APRN.HEALTH ADVISOR Risk Assessment: BLACK-7: BLACK - 7 SCORES [...] 08/31/2022 Completed and reviewed, HIGH risk Functional Mormonism: Physical Therapy (Land-based) Additional Studies: XR Cervical [...] medical decision making from today's date. Panchito Stephens APRN.YORDY Pain Management [facility] documented in this encounter [facility] 07-28-2022 History of Presen t illness [...] ER report reviewed. Urine C&S preliminary from [facility] ER. Assessment and Plan ASSESSMENT/PLAN: 1. Overactive bladder - ICD9: 596.51, ICD10: N32.81 (primary diagnosis) - UA DIP, URINE (POC) - NITROFURANTOIN MONOHYDRATE & MACROCRYSTAL 100 MG ORAL CAP - OXYBUTYNIN CHLORIDE ER 10 MG TABLET,EXTENDED RELEASE [address] Terrell Vale. 2. Bacteriuria - ICD9: 791.9, ICD10: R82.71 - NITROFURANTOIN MONOHYDRATE & MACROCRYSTAL 100 MG ORAL CAP Yassine Link MD documented in this encounter [facility] 07-28-2022 Miscellaneous Notes noted, should let urology provider know of her symptoms. ER for severe or concerning symptoms Protocol recommends see provider within 24 hours. Has appt with German Pires for tomorrow morning. Patient agreeable to ER [...] as above 6. :no Protocols used: Urinary Chbnuqap-[id number] documented in this encounter [facility] 07-14-2022 Miscellaneous Notes 1st attempt left message to return call to [phone] Ontiveros schedulers will assist in arranging this appointment. Sent e-mail also to Dr Ontiveros's schedulers and my chart message to the patient. Sending to PSS to schedule. Leticia Persaud LPN Isabel Pedroza ordered pain management consult on June 19. Please schedule 1st available or cancellation list for Dr. Brandon Ontiveros. documented in this encounter [facility] 07-03-2022 Miscellaneous Notes TERESE: 06/19/2022 Last [...] Levy Luu Ma documented in this encounter [facility] 06-27-2022 Miscellaneous Notes Please schedule her with Dr Ontiveros. Rx sent. PDMP website checked and validated. All prescriptions have been APPROPRIATELY filled. No suspicious activity was identified. 06/27/2022 by German Pires APRN.SALES ADMINISTRATOR Please send any future requests for refills [...] Leticia Persaud LPN documented in this encounter [facility] 06-20-2022 History of Presen t illness Narrative POPULATION HEALTH NAVIGATION OUTREACH Action/[facility] Support: Called pt to schedule an appt in Pain Management. Lvm for pt to call [phone] for scheduling. Pt identified by name and : NO Outreach Outcome/Action Unable to reach patient: Left message Did you use a PCP flex slot to schedule this appointment? N/A Reason for Outreach Care Gap or Scheduling/Wellness visits Payer: Payor: [facility] MEDICAID / Plan: [facility] MEDICAID / Product Type: Medicaid / Care Gap Reviewed:: Specialty Scheduling Reminder: Reminder note to check Health Maintenance for items below Health Maintenance items due: There are no preventive care reminders to display for this patient. Message Sent to Practice: No Navigation Signature: Carol Perez June 20, 2022 4:19 PM documented in this encounter [facility] 06-20-2022 Miscellaneous Notes Left vm for pt with appt info. Lindsey Coley PSS documented in this encounter [facility] 06-19-2022 Miscellaneous Notes Left brief message on cell voicemail stating to call the office to schedule New patient appointment with Dr. Ontiveros or Panchito Stephens in [place]. Lolita Cotton Please assist with scheduling. Thanks Kasia Bermudez PSS documented in this encounter [facility] 06-19-2022 History of Presen t illness Narrative SUBJECTIVE: There are no preventive care reminders to display for this patient. HPI Anne Chung is a 36 year old female. PMH significant for ACTIVE PROBLEM LIST Asthma Esophageal Reflux Tobacco Use Disorder Thoracic Outlet Syndrome Anxiety With Depression PCP: Yassine Link MD Presents today with report of shoulder pain. Has seen Estevan Blackman MD Vascular Surgery for thoracic outlet syndrome She underwent lleft supraclavicular first rib resection with neurolysis for neurogenic thoracic outlet syndrome September 26, 2021, did well after surgery. Completed physical therapy. She has been taking oxycodone for pain, last refill in April per Yassine Link MD, for acute exacerbation, no further refills [...] provider, Dr Ontiveros or preferred German Pires APRN.SALES ADMINISTRATOR PDMP website checked and validated. All prescriptions have been APPROPRIATELY filled. No suspicious activity was identified. 06/19/2022 by German Pires APRN.CNS Medical Decision Making: Problems: Moderate: 1+ chronic illnesses with change Risk: Moderate: Drug management Medical Decision Making Level: 4 - Moderate documented in this encounter [facility] 05-23-2022 History of Presen t illness Narrative This note was created using NoteWriter. Subjective Anne Chung is a 36 year old female. Her chronic underlying anxiety flared up 3-4 weeks ago. She 3 anniversaries this month, and she was reliving that stress. She had panic, insomnia, and depression. She denied suicide ideations. 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 Review of Systems Constitutional: Negative. Negative for [...] and side effects. Limit use. Not for care home use. - PAROXETINE 20 MG TABLET. Take one(1) tablet daily. Discussed medication dosage, usage, goals of therapy, and side effects. She had taken this in the past. Patient contracted for safety. - CONSULT TO [facility] Yassine Link MD documented in this encounter [facility] 05-10-2022 Miscellaneous Notes Spoke with pt [...] Class: C-II EUGENIA: No Refused By: YASSINE LINK Reason for Refusal: A Refill not appropriate Yassine Link MD Patient has been identified by name [...] Leticia Persaud LPN documented in this encounter [facility] 05-04-2022 History of Presen t illness Narrative This note was created using Lessonwriterriter. Subjective Anne Chung is a 36 year [...] 493.90, ICD10: J45.909 Stable. Pneumovax declined. Yassine Link MD documented in this encounter [facility] 04-25-2022 Miscellaneous Notes Patient has been [...] Leticia Persaud LPN documented in this encounter [facility] 04-06-2022 Miscellaneous Notes Patient has been [...] Nicole Sanches RN documented in this encounter [facility] 02-24-2022 History of Presen t illness [...] occurrence like this. No numbness or tingling. Supervisor Shipping Room is maintained. Notes she is doing well [...] the right shoulder, no numbness or tingling, scale adjuster preserved normal pulse Skin: General: Skin is [...] Making Level: 4 - Moderate German Pires APRN.SALES ADMINISTRATOR documented in this encounter [facility] documented as of this encounter (statuses as of 05/23/2022) [facility] History of Past illness Narrative* Problem [...] of this encounter (statuses as of 05/23/2022) [facility] History of Past illness Narrative* Problem [...] of this encounter (statuses as of 06/19/2022) [facility] History of Past illness Narrative* Problem [...] pain, epigastric 10/26/200903/15 Abdominal pain, generalized 10/05/2009 0206/2011 Dysuria 05/21/2009 01/03/2011 Lumbago 03/09/2008 04/18/2018 Pruritus of genital organs 11/21/200601/03 Bipolar disorder, unspecified 07/26/2006 documented as of this encounter (statuses as of 06/19/2022) [facility] History of Past illness Narrative* Problem [...] of this encounter (statuses as of 06/20/2022) [facility] of Past illness Narrative* Problem [...] of this encounter (statuses as of 06/20/2022) [facility] History of Past illness Narrative* Problem [...] of this encounter (statuses as of 06/27/2022) [facility] of Past illness Narrative* Problem [...] of this encounter (statuses as of 06/28/2022) [facility] of Past [facility] Narrative* Problem [...] of this encounter (statuses as of 07/04/2022) [facility] of Past [facility] Narrative* Problem [...] of this encounter (statuses as of 07/28/2022) [facility] Past [facility] Narrative* Problem [...] of this encounter (statuses as of 08/01/2022) [facility] Narrative* Problem [...] of this encounter (statuses as of 08/09/2022) [facility] Past [facility] Narrative* Problem [...] of this encounter (statuses as of 08/31/2022) [facility] Past [facility] Narrative* Problem [...] of this encounter (statuses as of 09/26/2022) [facility] Narrative* Problem [...] of this encounter (statuses as of 10/04/2022) [facility] Narrative* Problem [...] of this encounter (statuses as of 10/05/2022) [facility] Narrative* Problem [...] of this encounter (statuses as of 10/05/2022) [facility] Narrative* Problem [...] of this encounter (statuses as of 10/06/2022) [facility] Past [facility] Narrative* Problem [...] of this encounter (statuses as of 10/23/2022) [facility] Past [facility] Narrative* Problem [...] of this encounter (statuses as of 11/03/2022) [facility] Narrative* Problem [...] of this encounter (statuses as of 11/09/2022) [facility] Narrative* Problem [...] of this encounter (statuses as of 12/02/2022) [facility] Narrative* Problem [...] of this encounter (statuses as of 12/03/2022) [facility] Past [facility] Narrative* Problem [...] of this encounter (statuses as of 12/06/2022) [facility] Past [facility] Narrative* Problem [...] of this encounter (statuses as of 12/06/2022) [facility] Past [facility] Narrative* Problem [...] of this encounter (statuses as of 12/06/2022) [facility] Narrative* Problem [...] of this encounter (statuses as of 12/08/2022) [facility] Narrative* Problem [...] of this encounter (statuses as of 12/11/2022) [facility] Narrative* Problem [...] of this encounter (statuses as of 12/25/2022) [facility] Narrative* Problem [...] of this encounter (statuses as of 12/28/2022) [facility] Narrative* Problem [...] of this encounter (statuses as of 12/28/2022) [facility] Narrative* Problem [...] of this encounter (statuses as of 12/29/2022) [facility] Narrative* Problem [...] of this encounter (statuses as of 12/29/2022) [facility] Narrative* Problem [...] of this encounter (statuses as of 01/29/2023) [facility] Narrative* Problem [...] of this encounter (statuses as of 02/07/2023) [facility] Narrative* Problem [...] of this encounter (statuses as of 02/20/2023) [facility] Narrative* Problem [...] of this encounter (statuses as of 02/20/2023) [facility] Narrative* Problem [...] of this encounter (statuses as of 02/23/2023) [facility] Narrative* Problem [...] of this encounter (statuses as of 03/13/2023) [facility] Narrative* Problem [...] of this encounter (statuses as of 04/06/2023) [facility] Narrative* Problem [...] of this encounter (statuses as of 05/29/2023) [facility] Narrative* Problem [...] of this encounter (statuses as of 06/02/2023) [facility] Narrative* Problem [...] of this encounter (statuses as of 07/10/2023) [facility] Narrative* Problem [...] of this encounter (statuses as of 09/21/2023) [facility] Narrative* Problem [...] of this encounter (statuses as of 10/01/2023) [facility] Narrative* Problem [...] of this encounter (statuses as of 10/02/2023) [facility] Narrative* Problem [...] of this encounter (statuses as of 10/03/2023) [facility] N[facility]ative* Problem [...] of this encounter (statuses as of 02/24/2022) [facility] N[facility]ative* Problem [...] of this encounter (statuses as of 04/07/2022) [facility] N[facility]ative* Problem [...] of this encounter (statuses as of 04/25/2022) [facility] N[facility]ative* Problem [...] of this encounter (statuses as of 05/04/2022) [facility] Narrative* Problem [...] of this encounter (statuses as of 05/10/2022) [facility] No data available for this section [facility] Evaluation note* Diagnosis Acute pain of right shoulder- Primary Pain, postoperative, acute Other acute postoperative pain TOS (thoracic outlet syndrome) Brachial plexus lesions Acute upper back pain Pain in thoracic spine documented in this encounter [facility] note* Diagnosis Bee sting reaction, accidental or unintentional, sequela [facility]* Diagnosis Uncomplicated asthma, unspecified asthma severity, unspecified whether persistent documented in this encounter [facility] note* Diagnosis Thoracic outlet syndrome- Primary Brachial plexus lesions Gastroesophageal reflux disease, unspecified whether esophagitis present Uncomplicated asthma, unspecified asthma severity, unspecified whether persistent documented in this encounter [facility] note* Diagnosis Thoracic outlet syndrome Brachial plexus lesions documented in this encounter [facility] note* Diagnosis Anxiety with depression- Primary documented in this encounter [facility] note* Diagnosis Thoracic outlet syndrome- Primary Brachial plexus lesions documented in this encounter [facility] note* Diagnosis Thoracic outlet syndrome Brachial plexus lesions documented in this encounter [facility] note* Diagnosis Thoracic outlet syndrome Brachial plexus lesions documented in this encounter [facility] note* Diagnosis Overactive bladder- Primary Hypertonicity of bladder Bacteriuria Other nonspecific finding on examination of urine documented in this encounter [facility] note* Diagnosis TOS (thoracic outlet syndrome)- Primary Brachial plexus lesions Myofascial pain syndrome Mylagia and myositis, unspecified Chronic left shoulder pain Pain in joint, shoulder region Neck pain Cervicalgia documented in this encounter [facility] note* Diagnosis Lower abdominal pain- Primary Abdominal pain, other specified site documented in this encounter [facility] note* Diagnosis Gastroesophageal reflux disease without esophagitis Esophageal reflux documented in this encounter [facility] note* Diagnosis Lower abdominal pain Abdominal pain, other specified site [facility]* Diagnosis RLQ abdominal pain- Primary Abdominal pain, right lower quadrant Cyst of ovary, right Other and unspecified ovarian cyst documented in this encounter [facility] note* Diagnosis RLQ abdominal pain Abdominal pain, right lower quadrant Cyst of ovary, right Other and unspecified ovarian cyst [facility]* Diagnosis Thoracic outlet syndrome Brachial plexus lesions [facility]* Diagnosis Folliculitis- Primary Other specified disease of hair and hair follicles RLQ abdominal pain Abdominal pain, right lower quadrant Cyst of ovary, right Other and unspecified ovarian cyst [facility]* Diagnosis Anxiety with depression- Primary Thoracic outlet syndrome Brachial plexus lesions documented in this encounter [facility] note* Diagnosis Thoracic outlet syndrome- Primary Brachial plexus lesions documented in this encounter [facility] note* Diagnosis Thoracic outlet syndrome Brachial plexus lesions documented in this encounter [facility] note* Diagnosis Thoracic outlet syndrome- Primary Brachial plexus lesions Chronic post-operative pain Cervicalgia Chronic left shoulder pain Pain in joint, shoulder region documented in this encounter [facility] note* Diagnosis Anxiety with depression documented in this encounter [facility] note* Diagnosis Acute pain of right shoulder documented in this encounter [facility] note* Diagnosis Left shoulder pain, unspecified chronicity [M25.512 (ICD-10-CM)]- Primary documented in this encounter [facility] note* Diagnosis Thoracic outlet syndrome- Primary Brachial plexus lesions Chronic post-operative pain Cervicalgia Chronic left shoulder pain Pain in joint, shoulder region documented in this encounter [facility] note* Diagnosis Cervicalgia- Primary documented in this encounter [facility] note* Diagnosis Gastroesophageal reflux disease without esophagitis Esophageal reflux documented in this encounter [facility] note* Diagnosis Pain of left shoulder region- Primary Anxiety with depression Thoracic outlet syndrome Brachial plexus lesions Non-adherence to medical treatment Personal history of noncompliance with medical treatment, presenting hazards to health documented in this encounter [facility] note* Diagnosis Thoracic outlet syndrome Brachial plexus lesions Anxiety with depression documented in this encounter [facility] note* Diagnosis Postoperative abdominal pain- Primary Abdominal pain, unspecified site Gastroesophageal reflux disease without esophagitis Esophageal reflux documented in this encounter [facility] note* Diagnosis Uncomplicated asthma, unspecified asthma severity, unspecified whether persistent documented in this encounter [facility] note* Diagnosis Anxiety with depression documented in this encounter [facility] note* Diagnosis Asthma with acute exacerbation, unspecified asthma severity, unspecified whether persistent- Primary Nausea and vomiting, unspecified vomiting type documented in this encounter [facility] for referral (narrative)* Diagnostic Procedure Only (Routine) - Pending Review Specialty Diagnoses / Procedures Referred By Rosio sanabria Referred To Contact XR IMAGING Diagnoses Acute pain of right shoulder Acute upper back pain Procedures XR CERV GENERAL 2V AP/LAT RADEX SPINE CERVICAL 2 OR 3 VIEWS German Pires, EDU.SALES ADMINISTRATOR [address] [place] [address] Xr Imaging Referral ID Status Reason Start Date Expiration Date Visits Requested Visits Authorized [id number] Pending Review Auto-Generat ed Referral 02/24/2022 03/26/2023 1 1 * Diagnostic Procedure Only (Routine) - Pending Review Specialty Diagnoses / Procedures Referred By Contac t Referred To Contact XR IMAGING Diagnoses Acute pain of right shoulder Acute upper back pain Procedures XR THORACIC GENERAL 3V AP/LAT/SWIMMERS RADEX SPINE THORACIC 3 VIEWS German Pires APRN.SALES ADMINISTRATOR [address] [place] [address] Xr Imaging Referral ID Status Reason Start Date Expiration Date Visits Requested Visits Authorized [id number] Pending Review Auto-Generat ed Referral 02/24/2022 03/26/2023 1 1 * Physical Therapy (Routine) - Pending Review Specialty Diagnoses / Procedures Referred By Contac t Referred To Contact [facility] Diagnoses Acute pain of right shoulder Procedures CONSULT TO PHYSICAL THERAPY PHYSICAL THERAPY EVALUATION HIGH COMPLEX 45 MINS German Pires APRN.SALES ADMINISTRATOR [address] [place] [address] [facility] [address] [place] [address] Referral ID Status Reason Start Date Expiration Date Visits Requested Visits Authorized [id number] Pending Review Auto-Generat ed Referral 02/24/2022 02/24/2023 1 1 * Diagnostic Procedure Only (Routine) - Pending Review Specialty Diagnoses / Procedures Referred By Contac t Referred To Contact XR IMAGING Diagnoses Acute pain of right shoulder Procedures XR SHOULDER GENERAL 3V OR MORE AP/TRUE AP/OTHER LEFT RADEX SHOULDER COMPLETE MINIMUM 2 VIEWS German Pires APRN.SALES ADMINISTRATOR [address] [place] [address] Xr Imaging Referral ID Status Reason Start Date Expiration Date Visits Requested Visits Authorized [id number] Pending Review Auto-Generat ed Referral 02/24/2022 03/26/2023 1 1 [facility] for referral (narrative)* Diagnostic Procedure Only (Routine) - Pending Review Specialty Diagnoses / Procedures Referred By Contac t Referred To Contact XR IMAGING Diagnoses Chronic left shoulder pain Procedures XR SHOULDER LIMITED 2V AP/TRUE AP LEFT RADEX SHOULDER COMPLETE MINIMUM 2 VIEWS Panchito Stephens APRN.HEALTH ADVISOR [address] [place] [address] Xr Imaging Referral ID Status Reason Start Date Expiration Date Visits Requested Visits Authorized [id number] Pending Review Auto-Generat ed Referral 08/31/2022 09/30/2023 1 1 * - Pending Review Specialty Diagnoses / Procedures Referred By Contac t Referred To Contact Physical Therapy Diagnoses TOS (thoracic outlet syndrome) Myofascial pain syndrome Chronic left shoulder pain Neck pain Procedures CONSULT TO PHYSICAL THERAPY Panchito Stephens APRN.HEALTH ADVISOR [address] [place] [address] Referral ID Status Reason Start Date Expiration Date V isits Requested Visits Authorized [id number] Pending Review 08/31/2022 11/29/2022 1 1 * Diagnostic Procedure Only (Routine) - Pending Review Specialty Diagnoses / Procedures Referred By Contac t Referred To Contact XR IMAGING Diagnoses TOS (thoracic outlet syndrome) Procedures XR THORACIC LIMITED 2V AP/LAT RADEX SPINE THORACIC 2 VIEWS Panchito Stephens APRN.HEALTH ADVISOR [address] [place] [address] Xr Imaging Referral ID Status Reason Start Date Expiration Date Visits Requested Visits Authorized [id number] Pending Review Auto-Generat ed Referral 08/31/2022 09/30/2023 1 1 * Diagnostic Procedure Only (Routine) - Pending Review Specialty Diagnoses / Procedures Referred By Contac t Referred To Contact XR IMAGING Diagnoses Neck pain Procedures XR CERV OTHER 6V AP/LAT/FLX/EXT/OBL RADEX SPINE CERVICAL 6 OR MORE VIEWS Panchito Stephens, FIELD SUPPORT REPRESENTATIVE.HEALTH ADVISOR [address] [place] [address] Xr Imaging Referral ID Status Reason Start Date Expiration Date Visits Requested Visits Authorized [id number] Pending Review Auto-Generat ed Referral 08/31/2022 09/30/2023 1 1 [facility] for visit Narrative* Outpatient Procedure (Routine) - Closed Specialty Diagnoses / Procedures Referred By Contac t Referred To Contact Radiology / RADIO MRI [facility] Diagnoses Cervicalgia [M54.2] Procedures MRI WO YAW [address] Estevan Cheney MD [address] [place] [address] Radio Mri [facility] [address] [place] [address] Referral ID Status Reason Start Date Expiration Date Visits Re quested Visits Authorized [id number] Closed 01/31/2023 05/01/2023 1 1 [facility] for visit Narrative* Diagnostic Procedure Only (Routine) - Closed Specialty Diagnoses / Procedures Referred By Contac t Referred To Contact Radiology / RADIO MRI [facility] Diagnoses Cervicalgia [M54.2] Procedures MRI WO YAW [address] Estevan Cheney MD [address] [facility] [place] [place] [address] Radio Mri [facility] [address] [place] [address] Referral ID Status Reason Start Date Expiration Date Visits Re quested Visits Authorized [id number] Closed 01/31/2023 05/01/2023 1 1 [facility] Summary Purpose Family History No Family History Records FoundNo Family History Records Found No data available for this section No Family History Records FoundNo Family History Records Found Advance Directives No Advanced Directives Records FoundDocuments on File Type Date Recorded 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 Advance Directive(s) 09/08/2021 9:29 AM Advance Directive(s) 11/08/2016 11:21 AM Documents on File Type Date Recorded 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 Advance Directive(s) 09/08/2021 9:29 AM [...] Referral Specialty Diagnoses / Procedures Referred By Rosio sanabria Referred To Contact Pain Management Diagnoses Thoracic outlet syndrome Procedures CONSULT TO PAIN MGT OFFICE/OUTPATIENT [facility] MDM 60-74 MINUTES German Pires, FIELD SUPPORT REPRESENTATIVE.SALES ADMINISTRATOR [address] [place] [address] Referral ID Status Reason Start Date Expiration Date Visits Requested Visits Authorized [id number] Authorized PCP Requested Referral 06/19/2022 06/19/2023 1 1 Specialty Diagnoses / Procedures Referred By Rosio sanabria Referred To Contact Vascular Surgery Diagnoses Thoracic outlet syndrome Procedures CONSULT TO VASCULAR SURGERY OFFICE/OUTPATIENT NEW HIGH MDM 60-74 MINUTES German Pires, FIELD SUPPORT REPRESENTATIVE.SALES ADMINISTRATOR [address] [place] [address] Referral ID Status Reason Start Date Expiration Date Visits Requested Visits Authorized [id number] Authorized PCP Requested Referral 06/19/2022 06/19/2023 1 1 Specialty Diagnoses / Procedures Referred By Contac t Referred To Contact Diagnoses Thoracic outlet syndrome German Pires, FIELD SUPPORT REPRESENTATIVE.SALES ADMINISTRATOR [address] [place] [address] Referral ID Status Reason Start Date Expiration Date Visits Re quested Visits Authorized [id number] Closed 1 1 Specialty Diagnoses / Procedures Referred By Contac t Referred To Contact [facility] Diagnoses Acute pain of right shoulder Procedures PT REHAB FOLLOW UP ORDER THERAPEUTIC EXERCISES RE, EA 15 MIN. German Pires, FIELD SUPPORT REPRESENTATIVE.SALES ADMINISTRATOR [address] [place] [address] [facility] [address] [place] [address] Referral ID Status Reason Start Date Expiration Date Visits Requested Visits Authorized [id number] Waiting for Response PCP Requested Referral Auto-Generate d Referral 12/28/2022 03/28/2023 1 1 Specialty Diagnoses / Procedures Referred By Contac t Referred To Contact Spine [facility] Diagnoses Cervicalgia Procedures CONSULT TO [facility] OFFICE/OUTPATIENT [facility] 60-74 MINUTES Estevan Blackman MD [address] [place] [address] Referral ID Status Reason Start Date Expiration Date Visits Requested Visits Authorized [id number] Authorized PCP Requested Referral 02/20/2023 02/20/2024 1 1 Additional Source Comments INFORMATION SOURCE (unrecogn ized section and content) DATE CREATED AUTHOR AUTHOR'S ORGANIZ ATION 11/16/2022 [facility] DATE CREATED AUTHOR AUTHOR'S ORGANIZ ATION 11/30/2023 [facility] ([place]) DATE CREATED AUTHOR AUTHOR'S ORGANIZ ATION 12/04/2023 [facility] Source Comments (unrecognize d section and content) In the event this informatio n is protected by the Federal Confidentiality of Alcohol and Drug Abuse Patient Records regulations: The Federal rules restrict any use of the information to criminally investigate or prosecute any alcohol or drug abuse patient.[facility] the event this information is protected by the Federal Confidentiality of Alcohol and Drug Abuse Patient Records regulations: The Federal rules restrict any use of the information to criminally investigate or prosecute any alcohol or drug abuse patient.[facility] the event this information is protected by the Federal Confidentiality of Alcohol and Drug Abuse Patient Records regulations: The Federal rules restrict any use of the information to criminally investigate or prosecute any alcohol or drug abuse patient.[facility] the event this information is protected by the Federal Confidentiality of Alcohol and Drug Abuse Patient Records regulations: The Federal rules restrict any use of the information to criminally investigate or prosecute any alcohol or drug abuse patient.[facility] the event this information is protected by the Federal Confidentiality of Alcohol and Drug Abuse Patient Records regulations: The Federal rules restrict any use of the information to criminally investigate or prosecute any alcohol or drug abuse patient.[facility] the event this information is protected by the Federal Confidentiality of Alcohol and Drug Abuse Patient Records regulations: The Federal rules restrict any use of the information to criminally investigate or prosecute any alcohol or drug abuse patient.[facility] the event this information is protected by the Federal Confidentiality of Alcohol and Drug Abuse Patient Records regulations: The Federal rules restrict any use of the information to criminally investigate or prosecute any alcohol or drug abuse patient.[facility] the event this information is protected by the Federal Confidentiality of Alcohol and Drug Abuse Patient Records regulations: The Federal rules restrict any use of the information to criminally investigate or prosecute any alcohol or drug abuse patient.[facility] the event this information is protected by the Federal Confidentiality of Alcohol and Drug Abuse Patient Records regulations: The Federal rules restrict any use of the information to criminally investigate or prosecute any alcohol or drug abuse patient.[facility] the event this information is protected by the Federal Confidentiality of Alcohol and Drug Abuse Patient Records regulations: The Federal rules restrict any use of the information to criminally investigate or prosecute any alcohol or drug abuse patient.[facility]In the event this information is protected by the Federal Confidentiality of Alcohol and Drug Abuse Patient Records regulations: The Federal rules restrict any use of the information to criminally investigate or prosecute any alcohol or drug abuse patient.[facility]In the event this information is protected by the Federal Confidentiality of Alcohol and Drug Abuse Patient Records regulations: The Federal rules restrict any use of the information to criminally investigate or prosecute any alcohol or drug abuse patient.[facility]In the event this information is protected by the Federal Confidentiality of Alcohol and Drug Abuse Patient Records regulations: The Federal rules restrict any use of the information to criminally investigate or prosecute any alcohol or drug abuse patient.[facility]In the event this information is protected by the Federal Confidentiality of Alcohol and Drug Abuse Patient Records regulations: The Federal rules restrict any use of the information to criminally investigate or prosecute any alcohol or drug abuse patient.[facility]In the event this information is protected by the Federal Confidentiality of Alcohol and Drug Abuse Patient Records regulations: The Federal rules restrict any use of the information to criminally investigate or prosecute any alcohol or drug abuse patient.[facility]In the event this information is protected by the Federal Confidentiality of Alcohol and Drug Abuse Patient Records regulations: The Federal rules restrict any use of the information to criminally investigate or prosecute any alcohol or drug abuse patient.[facility]In the event this information is protected by the Federal Confidentiality of Alcohol and Drug Abuse Patient Records regulations: The Federal rules restrict any use of the information to criminally investigate or prosecute any alcohol or drug abuse patient.[facility]In the event this information is protected by the Federal Confidentiality of Alcohol and Drug Abuse Patient Records regulations: The Federal rules restrict any use of the information to criminally investigate or prosecute any alcohol or drug abuse patient.[facility]In the event this information is protected by the Federal Confidentiality of Alcohol and Drug Abuse Patient Records regulations: The Federal rules restrict any use of the information to criminally investigate or prosecute any alcohol or drug abuse patient.[facility]In the event this information is protected by the Federal Confidentiality of Alcohol and Drug Abuse Patient Records regulations: The Federal rules restrict any use of the information to criminally investigate or prosecute any alcohol or drug abuse patient.[facility]In the event this information is protected by the Federal Confidentiality of Alcohol and Drug Abuse Patient Records regulations: The Federal rules restrict any use of the information to criminally investigate or prosecute any alcohol or drug abuse patient.[facility]In the event this information is protected by the Federal Confidentiality of Alcohol and Drug Abuse Patient Records regulations: The Federal rules restrict any use of the information to criminally investigate or prosecute any alcohol or drug abuse patient.[facility]In the event this information is protected by the Federal Confidentiality of Alcohol and Drug Abuse Patient Records regulations: The Federal rules restrict any use of the information to criminally investigate or prosecute any alcohol or drug abuse patient.[facility]In the event this information is protected by the Federal Confidentiality of Alcohol and Drug Abuse Patient Records regulations: The Federal rules restrict any use of the information to criminally investigate or prosecute any alcohol or drug abuse patient.[facility]In the event this information is protected by the Federal Confidentiality of Alcohol and Drug Abuse Patient Records regulations: The Federal rules restrict any use of the information to criminally investigate or prosecute any alcohol or drug abuse patient.[facility]In the event this information is protected by the Federal Confidentiality of Alcohol and Drug Abuse Patient Records regulations: The Federal rules restrict any use of the information to criminally investigate or prosecute any alcohol or drug abuse patient.[facility]In the event this information is protected by the Federal Confidentiality of Alcohol and Drug Abuse Patient Records regulations: The Federal rules restrict any use of the information to criminally investigate or prosecute any alcohol or drug abuse patient.[facility]In the event this information is protected by the Federal Confidentiality of Alcohol and Drug Abuse Patient Records regulations: The Federal rules restrict any use of the information to criminally investigate or prosecute any alcohol or drug abuse patient.[facility]In the event this information is protected by the Federal Confidentiality of Alcohol and Drug Abuse Patient Records regulations: The Federal rules restrict any use of the information to criminally investigate or prosecute any alcohol or drug abuse patient.[facility]In the event this information is protected by the Federal Confidentiality of Alcohol and Drug Abuse Patient Records regulations: The Federal rules restrict any use of the information to criminally investigate or prosecute any alcohol or drug abuse patient.[facility] HospitalIn the event this information is protected by the Federal Confidentiality of Alcohol and Drug Abuse Patient Records regulations: The Federal rules restrict any use of the information to criminally investigate or prosecute any alcohol or drug abuse patient.[facility]In the event this information is protected by the Federal Confidentiality of Alcohol and Drug Abuse Patient Records regulations: The Federal rules restrict any use of the information to criminally investigate or prosecute any alcohol or drug abuse patient.[facility] the event this information is protected by the Federal Confidentiality of Alcohol and Drug Abuse Patient Records regulations: The Federal rules restrict any use of the information to criminally investigate or prosecute any alcohol or drug abuse patient.[facility]In the event this information is protected by the Federal Confidentiality of Alcohol and Drug Abuse Patient Records regulations: The Federal rules restrict any use of the information to criminally investigate or prosecute any alcohol or drug abuse patient.[facility] HospitalIn the event this information is protected by the Federal Confidentiality of Alcohol and Drug Abuse Patient Records regulations: The Federal rules restrict any use of the information to criminally investigate or prosecute any alcohol or drug abuse patient.[facility] the event this information is protected by the Federal Confidentiality of Alcohol and Drug Abuse Patient Records regulations: The Federal rules restrict any use of the information to criminally investigate or prosecute any alcohol or drug abuse patient.[facility]In the event this information is protected by the Federal Confidentiality of Alcohol and Drug Abuse Patient Records regulations: The Federal rules restrict any use of the information to criminally investigate or prosecute any alcohol or drug abuse patient.[facility] HospitalIn the event this information is protected by the Federal Confidentiality of Alcohol and Drug Abuse Patient Records regulations: The Federal rules restrict any use of the information to criminally investigate or prosecute any alcohol or drug abuse patient.[facility]In the event this information is protected by the Federal Confidentiality of Alcohol and Drug Abuse Patient Records regulations: The Federal rules restrict any use of the information to criminally investigate or prosecute any alcohol or drug abuse patient.[facility]In the event this information is protected by the Federal Confidentiality of Alcohol and Drug Abuse Patient Records regulations: The Federal rules restrict any use of the information to criminally investigate or prosecute any alcohol or drug abuse patient.[facility]In the event this information is protected by the Federal Confidentiality of Alcohol and Drug Abuse Patient Records regulations: The Federal rules restrict any use of the information to criminally investigate or prosecute any alcohol or drug abuse patient.[facility]In the event this information is protected by the Federal Confidentiality of Alcohol and Drug Abuse Patient Records regulations: The Federal rules restrict any use of the information to criminally investigate or prosecute any alcohol or drug abuse patient.[facility]In the event this information is protected by the Federal Confidentiality of Alcohol and Drug Abuse Patient Records regulations: The Federal rules restrict any use of the information to criminally investigate or prosecute any alcohol or drug abuse patient.[facility]In the event this information is protected by the Federal Confidentiality of Alcohol and Drug Abuse Patient Records regulations: The Federal rules restrict any use of the information to criminally investigate or prosecute any alcohol or drug abuse patient.[facility]In the event this information is protected by the Federal Confidentiality of Alcohol and Drug Abuse Patient Records regulations: The Federal rules restrict any use of the information to criminally investigate or prosecute any alcohol or drug abuse patient.[facility] HospitalIn the event this information is protected by the Federal Confidentiality of Alcohol and Drug Abuse Patient Records regulations: The Federal rules restrict any use of the information to criminally investigate or prosecute any alcohol or drug abuse patient.[facility]In the event this information is protected by the Federal Confidentiality of Alcohol and Drug Abuse Patient Records regulations: The Federal rules restrict any use of the information to criminally investigate or prosecute any alcohol or drug abuse patient.[facility]In the event this information is protected by the Federal Confidentiality of Alcohol and Drug Abuse Patient Records regulations: The Federal rules restrict any use of the information to criminally investigate or prosecute any alcohol or drug abuse patient.[facility]In the event this information is protected by the Federal Confidentiality of Alcohol and Drug Abuse Patient Records regulations: The Federal rules restrict any use of the information to criminally investigate or prosecute any alcohol or drug abuse patient.[facility]In the event this information is protected by the Federal Confidentiality of Alcohol and Drug Abuse Patient Records regulations: The Federal rules restrict any use of the information to criminally investigate or prosecute any alcohol or drug abuse patient.[facility] HospitalIn the event this information is protected by the Federal Confidentiality of Alcohol and Drug Abuse Patient Records regulations: The Federal rules restrict any use of the information to criminally investigate or prosecute any alcohol or drug abuse patient.[facility] HospitalIn the event this information is protected by the Federal Confidentiality of Alcohol and Drug Abuse Patient Records regulations: The Federal rules restrict any use of the information to criminally investigate or prosecute any alcohol or drug abuse patient.[facility] HospitalIn the event this information is protected by the Federal Confidentiality of Alcohol and Drug Abuse Patient Records regulations: The Federal rules restrict any use of the information to criminally investigate or prosecute any alcohol or drug abuse patient.[facility] HospitalIn the event this information is protected by the Federal Confidentiality of Alcohol and Drug Abuse Patient Records regulations: The Federal rules restrict any use of the information to criminally investigate or prosecute any alcohol or drug abuse patient.[facility] HospitalIn the event this information is protected by the Federal Confidentiality of Alcohol and Drug Abuse Patient Records regulations: The Federal rules restrict any use of the information to criminally investigate or prosecute any alcohol or drug abuse patient.[facility] Reason for Visit (unrecogniz ed section and content) Reason Onset Date Comments Refill Request 04/06/2022 Reason Onset Date Comments Refill Request 04/25/2022 Reason Comments Left shoulder pain Reason Onset Date Comments Refill Request 05/09/2022 Reason Comments Consult Initial [facility] Pt Outr each Reason Comments Anxiety Reason Comments Consult [facility] Pt Outreach F/U Reason Comments Pain (Shoulder Pain) L Shoulder pain, sx 10/16 Reason Comments Future Appointment Reason Comments Appointment Reason Onset Date Comments Refill Request 06/27/2022 Reason Comments urinary symptoms Flank Pain Reason Comments ED Follow-up [facility] 07/27 urinary freq uency and [...] Eval Specialty Diagnoses / Procedures Referred By Rosio t Referred To Contact Physical Therapy / PHYSICAL THERAPY Diagnoses TOS (thoracic outlet syndrome) [G54.0 (ICD-10-CM)]; Myofascial pain syndrome [M79.18 (ICD-10-CM)]; Chronic left shoulder pain [M25.512, G89.29 (ICD-10-CM)]; Neck pain [M54.2 (ICD-10-CM)] Procedures NEW RS PT SPINE Panchito Stephens, FIELD SUPPORT REPRESENTATIVE.HEALTH ADVISOR [address] [place] [id number] Hao Butcher, PT [address] [place] [address] Referral ID Status Reason Start Date Expiration Date Visits Re quested Visits Authorized [id number] Closed 11/26/2022 11/25/2023 1 1 Reason Comments [...] Care Teams (unrecognized sec tion and content) Compliance Director Relationship Specialty Start Date End Date Yassine Link MD [address] [facility] [place] [address] PCP - General 02/15/07 Florin Patel MD [address] [facility] [place] [address] Referring General Surgery 07/25/18 Bartolo Gonzalez MD [address] [place] [address] Referring General Surgery 09/24/19 Compliance Director Relationship Specialty Start Date End Date Yassine Link MD [address] [facility] [address] PCP - General 02/15/07 Flor[facility] Patel MD [address] [facility] [place] [address] Referring General Surgery 07/25/18 Bartolo Gonzalez MD [address] [facility] [address] [place] [address] Referring General Surgery 09/24/19 Compliance Director Relationship Specialty Start Date End Date Yassine Link MD [address] [facility] [place] [address] PCP - General 02/15/07 Florin Patel MD [address] [facility] [place] [address] Referring General Surgery 07/25/18 Bartolo Gonzalez MD [address] [place] [address] Referring General Surgery 09/24/19 Compliance Director Relationship Specialty Start Date End Date Yassine Link MD [address] [facility] [place] [address] PCP - General 02/15/07 Florin Patel MD [address] [facility] [place] [address] Referring General Surgery 07/25/18 Bartolo Gonzalez MD [address] [place] [address] Referring General Surgery 09/24/19 Compliance Director Relationship Specialty Start Date End Date Yassine Link MD [address] [facility] [place] [address] PCP - General 02/15/07 Florin Patel MD [address] [facility] [place] [address] Referring General Surgery 07/25/18 Bartolo Gonzalez MD [address] [place] [address] Referring General Surgery 09/24/19 Compliance Director Relationship Specialty Start Date End Date Yassine Link MD [address] [facility] [place] [address] PCP - General 02/15/07 Florin Patel MD [address] [facility] [place] [address] Referring General Surgery 07/25/18 Bartolo Gonzalez MD [address] [facility] [address] [place] [address] Referring General Surgery 09/24/19 Compliance Director Relationship Specialty Start Date End Date Yassine Link MD [address] [facility] [place] [address] PCP - General 02/15/07 Florin Patel MD [address] [facility] [place] [address] Referring General Surgery 07/25/18 Bartolo Gonzalez MD [address] [facility] [address] [place] [address] Referring General Surgery 09/24/19 Compliance Director Relationship Specialty Start Date End Date Yassine Link MD [address] [facility] [place] [address] PCP - General 02/15/07 Florin Patel MD [address] [facility] [place] [address] Referring General Surgery 07/25/18 Bartolo Gonzalez MD [address] [facility] [address] [place] [address] Referring General Surgery 09/24/19 Compliance Director Relationship Specialty Start Date End Date Yassine Link MD [address] [facility] [place] [address] PCP - General 02/15/07 Florin Patel MD [address] [facility] [place] [address] Referring General Surgery 07/25/18 Bartolo Gonzalez MD [address] [facility] [address] [place] [address] Referring General Surgery 09/24/19 Compliance Director Relationship Specialty Start Date End Date Yassine Link MD [address] [facility] [place] [address] PCP - General 02/15/07 Florin Patel MD [address] [facility] [place] [address] Referring General Surgery 07/25/18 Bartolo Gonzalez MD [address] [facility] [address] [place] [address] Referring General Surgery 09/24/19 Compliance Director Relationship Specialty Start Date End Date Yassine Link MD [address] [facility] [place] [address] PCP - General 02/15/07 Florin Patel MD [address] [facility] [place] [address] Referring General Surgery 07/25/18 Bartolo Gonzalez MD [address] [place] [address] [place] [address] Referring General Surgery 09/24/19 Compliance Director Relationship Specialty Start Date End Date Yassine Link MD [address] [facility] [place] [address] PCP - General 02/15/07 Florin Patel MD [address] [facility] [place] [address] Referring General Surgery 07/25/18 Bartolo Gonzalez MD [address] [place] [address] Referring General Surgery 09/24/19 Compliance Director Relationship Specialty Start Date End Date Yassine Link MD [address] [facility] [place] [address] PCP - General 02/15/07 Florin Patel MD [address] [facility] [place] [address] Referring General Surgery 07/25/18 Bartolo Gonzalez MD [address] [facility] [address] [place] [address] Referring General Surgery 09/24/19 Compliance Director Relationship Specialty Start Date End Date Yassine Link MD [address] [facility] [place] [address] PCP - General 02/15/07 Florin Patel MD [address] [facility] [place] [address] Referring General Surgery 07/25/18 Bartolo Gonzalez MD [address] [facility] [address] [place] [address] Referring General Surgery 09/24/19 Compliance Director Relationship Specialty Start Date End Date Yassine Link MD [address] [facility] [place] [address] PCP - General 02/15/07 Florin Patel MD [address] [facility] [place] [address] Referring General Surgery 07/25/18 Bartolo Gonzalez MD [address] [facility] [address] [place] [address] Referring General Surgery 09/24/19 Compliance Director Relationship Specialty Start Date End Date Yassine Link MD [address] [facility] [place] [address] PCP - General 02/15/07 Florin Patel MD [address] [facility] [place] [address] Referring General Surgery 07/25/18 Bartolo Gonzalez MD [address] [facility] [address] [place] [address] Referring General Surgery 09/24/19 Compliance Director Relationship Specialty Start Date End Date Yassine Link MD [address] [facility] [place] [address] PCP - General 02/15/07 Florin Patel MD [address] [facility] [place] [address] Referring General Surgery 07/25/18 Bartolo Gonzalez MD [address] [facility] [address] [place] [address] Referring General Surgery 09/24/19 Compliance Director Relationship Specialty Start Date End Date Yassine Link MD [address] [facility] [place] [address] PCP - General 02/15/07 Florin Patel MD [address] [facility] [place] [address] Referring General Surgery 07/25/18 Bartolo Gonzalez MD [address] [facility] [address] [place] [address] Referring General Surgery 09/24/19 Compliance Director Relationship Specialty Start Date End Date Yassine Link MD [address] [place] [address] PCP - General 02/15/07 Floirn Patel MD [address] [facility] [place] [address] Referring General Surgery 07/25/18 Bartolo Gonzalez MD [address] [facility] [address] [place] [address] Referring General Surgery 09/24/19 Compliance Director Relationship Specialty Start Date End Date Yassine Link MD [address] [facility] [place] [address] PCP - General 02/15/07 Florin Patel MD [address] [facility] [place] [address] Referring General Surgery 07/25/18 Bartolo Gonzalez MD [address] [facility] [address] [place] [address] Referring General Surgery 09/24/19 Compliance Director Relationship Specialty Start Date End Date Yassine Link MD [address] [facility] [place] [address] PCP - General 02/15/07 Florin Patel MD [address] [facility] [place] [address] Referring General Surgery 07/25/18 Bartolo Gonzalez MD [address] [facility] [address] [place] [address] Referring General Surgery 09/24/19 Compliance Director Relationship Specialty Start Date End Date Yassine Link MD [address] [facility] [address] PCP - General 02/15/07 Florin Patel MD [address] [place] [address] Referring General Surgery 07/25/18 Bartolo Gonzalez MD [address] [place] [address] Referring General Surgery 09/24/19 Compliance Director Relationship Specialty Start Date End Date Yassine Link MD [address] [facility] [place] [address] PCP - General 02/15/07 Florin Patel MD [address] [facility] [place] [address] Referring General Surgery 07/25/18 Bartolo Gonzalez MD [address] [place] [address] Referring General Surgery 09/24/19 Compliance Director Relationship Specialty Start Date End Date Yassine Link MD [address] [facility] [place] [address] PCP - General 02/15/07 Florin Patel MD [address] [facility] [place] [address] Referring General Surgery 07/25/18 Bartolo Gonzalez MD [address] [place] [address] Referring General Surgery 09/24/19 Compliance Director Relationship Specialty Start Date End Date Yassine Link MD [address] [facility] [place] [address] PCP - General 02/15/07 Florin Patel MD [address] [facility] [place] [address] Referring General Surgery 07/25/18 Bartolo Gonzalez MD [address] [place] [address] Referring General Surgery 09/24/19 Compliance Director Relationship Specialty Start Date End Date Yassine Link MD [address] [facility] [place] [address] PCP - General 02/15/07 Florin Patel MD [address] [place] [address] Referring General Surgery 07/25/18 Bartolo Gonzalez MD [address] [place] [address] Referring General Surgery 09/24/19 Compliance Director Relationship Specialty Start Date End Date Yassine Link MD [address] [facility] [place] [address] PCP - General 02/15/07 Florin Patel MD [address] [facility] [place] [address] Referring General Surgery 07/25/18 Bartolo Gonzalez MD [address] [place] [address] Referring General Surgery 09/24/19 Compliance Director Relationship Specialty Start Date End Date Yassine Link MD [address] [facility] [place] [address] PCP - General 02/15/07 Florin Patel MD [address] [place] [address] Referring General Surgery 07/25/18 Bartolo Gonzalez MD [address] [place] [address] Referring General Surgery 09/24/19 Compliance Director Relationship Specialty Start Date End Date Yassine Link MD [address] [facility] [address] PCP - General 02/15/07 Florin Patel MD [address] [place] [address] Referring General Surgery 07/25/18 Bartolo Gonzalez MD [address] [facility] [address] [place] [address] Referring General Surgery 09/24/19 Compliance Director Relationship Specialty Start Date End Date Yassine Link MD [address] [facility] [address] PCP - General 02/15/07 Florin Patel MD [address] [place] [address] Referring General Surgery 07/25/18 Bartolo Gonzalez MD [address] [facility] [address] [place] [address] Referring General Surgery 09/24/19 Compliance Director Relationship Specialty Start Date End Date Yassine Link MD [address] [place] [address] PCP - General 02/15/07 Florin Patel MD [address] [place], [place] [address] Referring General Surgery 07/25/18 Bartolo Gonzalez MD [address] [address] Referring General Surgery 09/24/19 FOR RECORDS PERTAINING [...] BE BASED ON THE PRIMARY CLINICAL RECORDS. [facility]. provides no warranty or guarantee of the accuracy or completeness of information in this document.
[2023-12-08] MEDS: Smz/Tmp Ds Tablet 1 TABLET PO (14:32)
== END 2023-12-08 14:35 | disposition home or self-care (01) ==
PROVIDERS: Emergency Provider Emergency Medicine; PCP Internal Medicine; Visit Provider Emergency Medicine
DX: S31.819A Unspecified open wound of right buttock, initial encounter (principal); F12.90 Cannabis use, unspecified, uncomplicated; F17.210 Nicotine dependence, cigarettes, uncomplicated; X58.XXXA Exposure to other specified factors, initial encounter
CPT/HCPCS: 99282

== ENCOUNTER 2023-12-22 10:55 | Emergency (ER) | payer MEDICAID, SELFPAY ==
[2023-12-22 10:56] VITALS: BP 107/80; PULSE 77; RESP 16; TEMP 36; O2SAT 100; BMI 31.8
--- NOTE | 2023-12-22 11:20 | EDS_ITS ---
HPI <ARMANDO Adler - Last Filed: 12/22/23 13:59> History of Present Illness Chief Complaint: Other, Pain/Inj Narrative Narrative: 38-year-old female had surgical excision of a pilonidal cyst at [facility] on 12/[address] Henry. She taking the prescribed oxycodone and Tylenol and Motrin but has had severe pain since surgery. She is having normal bladder and bowel movements. No fever or chills. There is a bandage on from the surgeon that supposed to be removed next week and she has not had any drainage from the site. PFSH <ARMANDO Adler - Last Filed: 12/22/23 13:59> [facility] Medical History Anxiety Depression GERD (gastroesophageal reflux disease) H/O thoracic outlet syndrome IBS (irritable bowel syndrome) Left shoulder strain PTSD (post-traumatic stress disorder) Thoracic outlet syndrome Home Medications doxycycline monohydrate 100 mg capsule 100 mg PO BID #14 CAPSULES 11/19/23 [Rx Last Taken Unknown] estradiol 1 mg tablet 1 mg PO DAILY 11/19/23 [History Last Taken 11/19/23] estradiol 2 mg tablet 2 mg PO DAILY 11/19/23 [History Last Taken 11/19/23] hydrocodone-acetaminophen 5-325mg 5mg-325mg 1 tab PO Q4H PRN PRN Pain 1 day #4 TABLETS 11/19/23 [Rx Last Taken Unknown] sulfamethoxazole 800 mg-trimethoprim 160 mg tablet (Bactrim DS) 1 tab PO BID 10 days #20 tabs 12/08/23 [Rx Last Taken Unknown] hydrocodone-acetaminophen 5-325mg 5mg-325mg 1 tab PO Q6H PRN pain 5 days #20 tabs 12/22/23 [Rx Last Taken Unknown] Allergy/AdvReac Type Severity Reaction Status Date / Time benzonatate Allergy Rash Verified 12/08/23 13:50 [From Tessalon Perles] diazepam [From Valium] Allergy Hives Verified 12/08/23 13:50 morphine Allergy Itching Verified 12/08/23 13:50 Penicillins Allergy Hives Verified 12/08/23 13:50 venom-honey bee Allergy Hives Verified 12/08/23 13:50 [bee venom (honey bee)] Family History Father Heart disease Hypertension Myocardial infarction Mother Cancer lung, throat and Lupus Surgical History History of esophagogastroduodenoscopy (EGD) History of left oophorectomy S/P breast biopsy S/P colonoscopy Status post hysterectomy Social History household members: none Smoking Status: Current every day smoker tobacco type: cigarettes alcohol intake: current alcohol intake frequency: holidays/special occasions only substance use type: marijuana caffeine: Yes what type of physical activity do you participate in: none seatbelt use: sometimes do you feel safe at home: Yes additional social history: Boyfriend-Sha- Works at [employer] Patient works at [employer] ROS <ARMANDO Adler - Last Filed: 12/22/23 13:59> ROS ED ROS Narrative Constitutional: Negative for fever, chills, malaise. GI: Negative for nausea or vomiting, constipation. EXAM <ARMANDO Adler - Last Filed: 12/22/23 13:59> Physical Exam Narrative Exam Narrative: CONST: Patient sitting in no acute distress. EYES: Normal inspection. NECK: Normal inspection. RESP: No respiratory distress, CTAB. CVS: Regular rate and rhythm, no murmur, no gallop. SKIN: Adhered plastic bandage over area of pilonidal cyst excision, no surrounding erythema or drainage. EXTREMITIES: Normal appearance, no pedal edema. NEURO: Oriented x4. PSYCH: Normal affect. Const Vital Signs: 12/22/23 10:56 Temperature 96.8 F L Temperature Source Temporal Pulse Rate 77 Respiratory Rate 16 Blood Pressure 107/80 Blood Pressure Mean 89 Pulse Ox 100 Oxygen Delivery Method Room Air <Dr. Bartolo Giles DO - Last Filed: 12/22/23 13:55> Physical Exam Const Vital Signs: 12/22/23 10:56 Temperature 96.8 F L Temperature Source Temporal Pulse Rate 77 Respiratory Rate 16 Blood Pressure 107/80 Blood Pressure Mean 89 Pulse Ox 100 Oxygen Delivery Method Room Air MDM <ARMANDO Adler - Last Filed: 12/22/23 13:59> [facility] Narrative Medical decision making narrative: Patient is POD #2 from pilonidal cyst excision presenting with pain. She appears well and nontoxic and is afebrile with normal vital signs. Postop site has clean bandage intact and no signs of cellulitis or bleeding. She was treated with Toradol and oxycodone with some relief. I spoke with her surgeon, Dr. Henry, who recommended giving hydrocodone since she may not be responding to the oxycodone. She has surgery follow-up next week for bandage removal and reassessment. Patient was comfortable with this plan and discharged in stable condition. <Dr. Bartolo Giles, DO - Last Filed: 12/22/23 13:55> [facility] Treatment and Re-Evaluation :: I have personally performed a face to face assessment of the patient and have reviewed the PAULINE Note. I performed a substantive portion of the visit including all aspects of the following. My lo findings include: History is 38-year-old female status post pilonidal cyst/abscess surgery with Dr. Henry in vagina. Presenting with uncontrolled postoperative pain. Patient has been taking Tylenol/Motrin and Oxy IR. She states she attempted to reach on-call surgery was unsuccessful. Exam is there appears to be a healing wound in the midline of the sacral region. Just above the gluteal cleft. I do not appreciate any surrounding erythema. There is no significant drainage on the wound covering. Medical Decison Making case will be discussed with Dr. Henry. A plan to improve postoperative pain management will be discussed. I do not see any evidence at the time that the patient would need to be admitted or transferred. Discharge Plan Triage Chief Complaint: Other, Pain/Inj ED Midlevel Provider: Moraima Ward ED Provider: Bartolo Giles Dx/Rx/DC Orders Clinical Impression: Postoperative pain Instructions: ED Post Op Wound Check, Pain Prescriptions: New hydrocodone-acetaminophen 5-325 mg tablet 1 tab PO Q6H PRN (Reason: pain) 5 Days Qty: 20 0RF No Action estradiol 1 mg tablet 1 mg PO DAILY estradiol 2 mg tablet 2 mg PO DAILY doxycycline monohydrate 100 mg capsule 100 mg PO BID Qty: 14 0RF hydrocodone-acetaminophen [hydrocodone-acetaminophen] 5-325 mg tablet 1 tab PO Q4H PRN PRN (Reason: Pain) 1 Days Qty: 4 0RF sulfamethoxazole-trimethoprim [Bactrim DS] 800-160 mg tablet 1 tab PO BID 10 Days Qty: 20 0RF Primary Care Provider: Yassine Link Referrals: Yassine Link MD [Primary Care Provider] - Activity Restrictions/Additional Instructions: Since oxycodone did not give him much relief I prescribed hydrocodone to see if you respond better. You can also continue Motrin every 6 hours. Follow-up with your surgeon. Disposition Disposition: Home, Self Care
[2023-12-22] MEDS: Ketorolac 30 MG/ML Syringe IM (11:28)
--- OUTSIDE RECORDS SUMMARY | 2023-12-22 11:42 | XMS RPT_ITS | CCD ---
Author Name Unknown Address [id number] [place] [address] Organization [facility] Care Team Providers Care 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 Name Role Phone Yassine Link MD Primary Care Provider Florin Patel MD Unavailable Bartolo Gonzalez MD Unavailable PRABHAKAR SAMANIEGO, DR HURT Primary Care Physician PRABHAKAR SAMANIEGO, DR HURT Primary Care Unavailwilda CUNNINGHAM MD, ROMELIA Cox Attending Unavailable NORRIS SAMANIEGO, ROMELIA Cox Attending Unavailable PRABHAKAR SAMANIEGO, DR HURT Primary Care Unavailwilda REAVES MD, MAYI Attending Unavailable PRABHAKAR SAMANIEGO, DR HURT Primary Care UnavailGERMAN Rosenthal Attending Unavailable YASSINE LINK Primary Care Unavailable BOBBI CASTANEDA Attending Unavailable YASSINE LINK Primary Care Unavailable YASSINE LINK Primary Care Unavailable YASSINE LINK Attending Unavailable YASSINE LINK Primary Care Unavailable YASSINE LINK Attending Unavailable GERMAN PIRES Attending Unavailable YASSINE LINK Primary Care Unavailable ESTEVAN BLACKMAN Referring Unavailable YASSINE LINK Primary Care Unavailable ESTEVAN BLACKMAN Referring Unavailable YASSINE LINK Primary Care Unavailable BEATRICE ROBERTS Attending Unavailable YASSINE LINK Primary Care Unavailable YASSINE LINK Attending Unavailable YASSINE LINK Primary Care Unavailable YASSINE LINK Attending Unavailable GERMAN PIRES Attending Unavailable YASSINE LINK Primary Care Unavailable YASSINE LINK Primary Care Unavailable YASSINE LINK Attending Unavailable PRABHAKAR, YASSINE Hernandez Primary Care Unavailable PRABHAKAR, YASSINE Hernandez Attending Unavailable HAO BUTCHER Attending Unavailable PRABHAKAR, YASSINE Hernandez Primary Care Unavailable PANCHITO STEPHENS Referring Unavailable TAYLOR ESPARZA Attending Unavailable PRABHAKAR, YASSINE Hernandez Primary Care Unavailable PRABHAKAR, YASSINE Hernandez Referring Unavailable BOBBI CASTANEDA Attending Unavailable BOBBI CASTANEDA Admitting Unavailable PRABHAKAR, YASSINE Hernandez Primary Care Unavailable Allergies Allergy Classification Reported Allergen(s) Allergy Type Date of Onset Reaction(s) Facility (20 sources) benzonatate; Translations: [benzonatate] Drug Allergy 7 [facility] Work Phone: (20 sources) diazePAM; Translations: [DIAZEPAM] Drug Allergy 5 [facility] Work Phone: (20 sources) Morphine; Translations: [morphine] Drug Allergy 4 [facility] (7 sources) Penicillins; Translations: [PENICILLINS] Propensity to adverse reactions to drug 1 Other: See Comments [facility] Work Phone: [phone] (20 sources) Bees; Translations: [BEES] Allergy to substance 1 Anaphylaxis [facility] Work Phone: [phone] (20 sources) Penicillins Propensity to adverse reactions to drug 1 Other: See Comments [facility] Work Phone: [phone] (1 source) Bee/Wasp/Ant venom Allergy to substance swelling [facility] (1 source) Penicillin; Translations: [penicillin] Drug Allergy [facility] Medications Current Medications Medication Drug Class(es) Dates [...] syndrome; Translations: [Myalgia, other site] Episodic Other diseases of bladder and urethra (20 sources) Overactive bladder; Translations: [Overactive bladder] Onset: 07-28-2022 Chronic Other nervous system disorders (20 sources) Thoracic outlet syndrome; Translations: [Brachial plexus disorders] Onset: 06-14-2020 Chronic Other nervous system disorders (2 sources) Chronic postoperative pain; Translations: [Other chronic postprocedural pain] Chronic Other nervous system disorders (1 source) Brachial plexus disorders; Translations: [Thoracic outlet syndrome] Onset: 09-26-2021 Chronic Other nervous system disorders (1 source) Other chronic pain; Translations: [Chronic left shoulder pain] Onset: 02-13-2023 Chronic Other nervous system disorders (1 source) Acute postoperative pain; Translations: [Other acute postprocedural pain] Episodic Other nervous system disorders (1 source) Other acute postprocedural pain; Translations: [Postoperative pain] Onset: 12-20-2023 Episodic Other non-traumatic joint disorders (3 sources) [...] 05-10-2023 Episodic Skin and subcutaneous tissue infections (4 sources) Cellulitis; Translations: [Cellulitis, unspecified] Onset: 11-21-2023 [...] Onset: 12-28-2022 Episodic Other non-traumatic joint disorders (9 sources) Pain in left shoulder; Translations: [Pain in joint, shoulder region] Onset: 12-28-2022 03-12-2023 Episodic Other non-traumatic joint disorders (1 source) Pain in right shoulder; Translations: [Acute pain of right shoulder] Onset: 12-28-2022 Episodic Residual codes; unclassified (9 sources) Noncompliance with medication regimen; Translations: [Non-adherence to medical treatment] Onset: 03-12-2023 Episodic Spondylosis; intervertebral disc disorders; other back problems (7 sources) Acute thoracic back pain; Translations: [Dorsalgia, unspecified] Onset: 02-13-2023 Episodic Results Test Name Value Interpretation Reference Range Facil ity Vital Signs Date Time Vital Sign Value Performing Clinician Facility 11-21-2023 15:46-0500 Body height 152.4 cm MAYI REAVES MD [facility] 11-21-2023 15:46-0500 Body temperature 98.24 [degF] MAYI REAVES MD [facility] 11-21-2023 15:46-0500 Body weight 72.7 kg MAYI REAVES MD [facility] 11-21-2023 15:46-0500 Diastolic Blood Pressure Non-Invasive 73 mm[Hg] MAYI REAVES MD [facility] 11-21-2023 15:46-0500 Heart rate 86 /min MAYI REAVES MD [facility] 11-21-2023 15:46-0500 Respiratory rate 18 /min MAYI REAVES MD [facility] 11-21-2023 15:46-0500 Systolic Blood Pressure Non-Invasive 119 mm[Hg] MAYI REAVES MD [facility] 05-28-2023 19:18-0400 Body weight 75.75 kg Yassine Link MD Work Phone: [facility] 05-28-2023 19:18-0400 Diastolic blood pressure 62 mm[Hg] Yassine Link MD Work Phone: [facility] 05-28-2023 19:18-0400 Heart rate 80 /min Yassine Link MD Work Phone: [facility] 05-28-2023 19:18-0400 Respiratory rate 16 /min Yassine Link MD Work Phone: [facility] 05-28-2023 19:18-0400 Systolic blood pressure 96 mm[Hg] Yassine Link MD Work Phone: [facility] 12-28-2022 11:41-0500 Body temperature 97.3 [degF] Yassine Link MD Work Phone: [facility] 12-28-2022 11:41-0500 Body weight 78.47 kg Yassine Link MD Work Phone: [facility] 12-28-2022 11:41-0500 Diastolic blood pressure 68 mm[Hg] Yassine Link MD Work Phone: [facility] 12-28-2022 11:41-0500 Heart rate 80 /min Yassine Link MD Work Phone: [facility] 12-28-2022 11:41-0500 Respiratory rate 16 /min Yassine Link MD Work Phone: [facility] 12-28-2022 11:41-0500 Systolic blood pressure 116 mm[Hg] Yassine Link MD Work Phone: [facility] 12-01-2022 16:23-0500 Body temperature 97.81 [degF] Yassine Link MD Work Phone: [facility] 12-01-2022 16:23-0500 Body weight 78.02 kg Yassine Link MD Work Phone: [facility] 12-01-2022 16:23-0500 Diastolic blood pressure 72 mm[Hg] Yassine Link MD Work Phone: [facility] 12-01-2022 16:23-0500 Heart rate 87 /min Yassine Link MD Work Phone: [facility] 12-01-2022 16:23-0500 Respiratory rate 16 /min Yassine Link MD Work Phone: [facility] 12-01-2022 16:23-0500 SaO2% (BldA) [Mass fraction] 99 % Yassine Link MD Work Phone: [facility] 12-01-2022 16:23-0500 Systolic blood pressure 112 mm[Hg] Yassine Link MD Work Phone: [facility] 11-03-2022 10:19-0500 Body temperature 97.81 [degF] German Pires SILVER MINER.WEB CONSULTANT Work Phone: [facility] 11-03-2022 10:19-0500 Body weight 75.75 kg German Pires SILVER MINER.WEB CONSULTANT Work Phone: [facility] 11-03-2022 10:19-0500 Diastolic blood pressure 60 mm[Hg] German Pires SILVER MINER.WEB CONSULTANT Work Phone: [facility] 11-03-2022 10:19-0500 Heart rate 85 /min German Pires SILVER MINER.WEB CONSULTANT Work Phone: [facility] 11-03-2022 10:19-0500 SaO2% (BldA) [Mass fraction] 100 % German Pires SILVER MINER.WEB CONSULTANT Work Phone: [facility] 11-03-2022 10:19-0500 Systolic blood pressure 118 mm[Hg] German Pires SILVER MINER.WEB CONSULTANT Work Phone: [facility] 10-05-2022 11:39-0500 Body temperature 97.7 [degF] Yassine Link MD Work Phone: [facility] 10-05-2022 11:39-0500 Body weight 81.19 kg Yassine Link MD Work Phone: [facility] 10-05-2022 11:39-0500 Diastolic blood pressure 70 mm[Hg] Yassine Link MD Work Phone: [facility] 10-05-2022 11:39-0500 Heart rate 72 /min Yassine Link MD Work Phone: [facility] 10-05-2022 11:39-0500 Respiratory rate 18 /min Yassine Link MD Work Phone: [facility] 10-05-2022 11:39-0500 Systolic blood pressure 120 mm[Hg] Yassine Link MD Work Phone: [facility] 09-26-2022 10:32-0400 Body temperature 97.2 [degF] Yassine Link MD Work Phone: [facility] 09-26-2022 10:32-0400 Body weight 76.66 kg Yassine Link MD Work Phone: [facility] 09-26-2022 10:32-0400 Diastolic blood pressure 68 mm[Hg] Yassine Link MD Work Phone: [facility] 09-26-2022 10:32-0400 Heart rate 84 /min Yassine Link MD Work Phone: [facility] 09-26-2022 10:32-0400 Respiratory rate 20 /min Yassine Link MD Work Phone: [facility] 09-26-2022 10:32-0400 Systolic blood pressure 124 mm[Hg] Yassine Link MD Work Phone: [facility] 08-31-2022 09:09-0400 Heart rate 85 /min Panchito Stephens SILVER MINER.EXCELSIOR PICKER Work Phone: [facility] 08-31-2022 09:09-0400 Respiratory rate 16 /min Panchito Stephens SILVER MINER.EXCELSIOR PICKER Work Phone: [facility] 08-31-2022 09:09-0400 SaO2% (BldA) [Mass fraction] 98 % Panchito Stephens SILVER MINER.EXCELSIOR PICKER Work Phone: [facility] 07-28-2022 17:07-0400 Body temperature 97.3 [degF] Yassine Link MD Work Phone: [facility] 07-28-2022 17:07-0400 Body weight 77.11 kg Yassine Link MD Work Phone: [facility] 07-28-2022 17:07-0400 Diastolic blood pressure 68 mm[Hg] Yassine Link MD Work Phone: [facility] 07-28-2022 17:07-0400 Heart rate 80 /min Yassien Link MD Work Phone: [facility] 07-28-2022 17:07-0400 Respiratory rate 20 /min Yassine Link MD Work Phone: [facility] 07-28-2022 17:07-0400 SaO2% (BldA) [Mass fraction] 99 % Yassine Link MD Work Phone: [facility] 07-28-2022 17:07-0400 Systolic blood pressure 112 mm[Hg] Yassine Link MD Work Phone: [facility] 06-19-2022 11:43-0400 Body weight 77.11 kg German Pires SILVER MINER.WEB CONSULTANT Work Phone: [facility] 06-19-2022 11:43-0400 Diastolic blood pressure 78 mm[Hg] German Pires SILVER MINER.WEB CONSULTANT Work Phone: [facility] 06-19-2022 11:43-0400 Heart rate 84 /min German Pires SILVER MINER.WEB CONSULTANT Work Phone: [facility] 06-19-2022 11:43-0400 Respiratory rate 16 /min German Pires SILVER MINER.WEB CONSULTANT Work Phone: [facility] 06-19-2022 11:43-0400 Systolic blood pressure 118 mm[Hg] German Pires SILVER MINER.WEB CONSULTANT Work Phone: [facility] 05-23-2022 11:44-0400 Body temperature 97.2 [degF] Yassine Link MD Work Phone: [facility] 05-23-2022 11:44-0400 Body weight 78.02 kg Yassine Link MD Work Phone: [facility] 05-23-2022 11:44-0400 Diastolic blood pressure 70 mm[Hg] Yassine Link MD Work Phone: [facility] 05-23-2022 11:44-0400 Heart rate 72 /min Yassine Link MD Work Phone: [facility] 05-23-2022 11:44-0400 Respiratory rate 16 /min Yassine Link MD Work Phone: [facility] 05-23-2022 11:44-0400 Systolic blood pressure 116 mm[Hg] Yassine Link MD Work Phone: [facility] 05-04-2022 13:52-0400 Body temperature 97.39 [degF] Yassine Link MD Work Phone: [facility] 05-04-2022 13:52-0400 Body weight 79.2 kg Yassine Link MD Work Phone: [facility] 05-04-2022 13:52-0400 Diastolic blood pressure 70 mm[Hg] Yassine Link MD Work Phone: [facility] 05-04-2022 13:52-0400 Heart rate 76 /min Yassine Link MD Work Phone: [facility] 05-04-2022 13:52-0400 Respiratory rate 16 /min Yassine Link MD Work Phone: [facility] 05-04-2022 13:52-0400 Systolic blood pressure 112 mm[Hg] Yassine Link MD Work Phone: [facility] 02-24-2022 09:58-0400 Body weight 77.56 kg German Pires SILVER MINER.WEB CONSULTANT Work Phone: [facility] 02-24-2022 09:58-0400 Diastolic blood pressure 72 mm[Hg] German Pires SILVER MINER.WEB CONSULTANT Work Phone: [facility] 02-24-2022 09:58-0400 Heart rate 76 /min German Pires SILVER MINER.WEB CONSULTANT Work Phone: [facility] 02-24-2022 09:58-0400 Respiratory rate 16 /min German Pires SILVER MINER.WEB CONSULTANT Work Phone: [facility] 02-24-2022 09:58-0400 Systolic blood pressure 102 mm[Hg] German Pires SILVER MINER.WEB CONSULTANT Work Phone: [facility] Encounters Encounter Date Encounter Type Care Provider Facility Start: 12-20-2023 End: 12-20-2023 ambulatory BOBBI CASTANEDA Facility:[facility] Start: 12-11-2023 End: 12-11-2023 ambulatory YASSINE LINK Facility:[facility] Start: 12-07-2023 End: 12-08-2023 ambulatory BOBBI CASSIE CASTANEDA Facility:[facility] Start: 11-27-2023 End: 11-27-2023 ambulatory GERMANRamiro PIRES Facility:[facility] Start: 11-22-2023 End: 11-22-2023 ambulatory TAYLOR ESPARZA Facility:[facility] Start: 11-21-2023 End: 11-21-2023 Emergency department patient visit MAYI REAVES MD Facility: Start: 11-21-2023 End: 11-21-2023 Emergency department patient visit MAYI REAVES MD [facility] Start: 11-20-2023 End: 11-20-2023 ambulatory YASSINE LINK Facility:[facility] Start: 10-02-2023 ambulatory Yassine herron MD Work Phone: [facility] [place] Procedures Date Procedure Procedure Detail Performing Clinician Start: 07-28-2022 Urnls dip stick/tabl et rgnt auto w/o microscopy Yassine Link MD Work Phone: Start: 08-23-2021 Adult depression scr eening assessment German Pires SILVER MINER.WEB CONSULTANT Work Phone: Colonoscopy MAYI REAVES MD Hysterectomy MAYI REAVES MD Shoulder region stru cture (body structure) MAYI REAVES MD Specimen from breast obtained by biopsy (specimen) MAYI REAVES MD Plan of Treatment Date Care Activity Detail Author Start: 10-01-2024 Annual PCP Team Inspector Raw Quartz luis alberto Disease Visit Annual PCP Team Chronic Disease Visit [facility] Start: 05-28-2024 ANNUAL PCP TEAM MATERIAL STRESS TESTER LUIS ALBERTO DISEASE VISIT ANNUAL PCP TEAM CHRONIC DISEASE VISIT [facility] Start: 03-12-2024 ANNUAL PCP TEAM MATERIAL STRESS TESTER LUIS ALBERTO DISEASE VISIT ANNUAL PCP TEAM CHRONIC DISEASE VISIT [facility] Start: 02-21-2024 ANNUAL PCP TEAM MATERIAL STRESS TESTER LUIS ALBERTO DISEASE VISIT ANNUAL PCP TEAM CHRONIC DISEASE VISIT [facility] Start: 12-28-2023 ANNUAL PCP TEAM MATERIAL STRESS TESTER LUIS ALBERTO DISEASE VISIT ANNUAL PCP TEAM CHRONIC DISEASE VISIT [facility] Start: 12-01-2023 ANNUAL PCP TEAM MATERIAL STRESS TESTER LUIS ALBERTO DISEASE VISIT ANNUAL PCP TEAM CHRONIC DISEASE VISIT [facility] Start: 11-09-2023 ANNUAL PCP TEAM MATERIAL STRESS TESTER LUIS ALBERTO DISEASE VISIT ANNUAL PCP TEAM CHRONIC DISEASE VISIT [facility] Start: 10-05-2023 ANNUAL PCP TEAM MATERIAL STRESS TESTER LUIS ALBERTO DISEASE VISIT ANNUAL PCP TEAM CHRONIC DISEASE VISIT [facility] Start: 09-26-2023 ANNUAL PCP TEAM MATERIAL STRESS TESTER LUIS ALBERTO DISEASE VISIT ANNUAL PCP TEAM CHRONIC DISEASE VISIT [facility] Start: 07-28-2023 ANNUAL PCP TEAM MATERIAL STRESS TESTER LUIS ALBERTO DISEASE VISIT ANNUAL PCP TEAM CHRONIC DISEASE VISIT [facility] Start: 07-27-2023 Influenza vaccination C [facility] Start: 05-25-2023 Influenza vaccination INFLUENZA (#1) [facility] Immunizations Immunization Date Immunization Notes Care Provider Fa cility 01-17-2019 influenza virus vaccine, unspecified formulation Yassine Link MD Work Phone: [facility] 09-24-2012 tetanus toxoid, redu yuri diphtheria toxoid, and acellular pertussis vaccine, adsorbed German Pires SILVER MINER.WEB CONSULTANT Work Phone: [facility] Work Phone: Payers Date Payer Category Payer Medicaid [id number] 2022 Unknown [id number] 2020 Medicaid [employer] [id number] 2020-Present [phone] [address] [place] [address] Medicaid [id number] 2020 Medicaid [id number] 1984 Unknown [id number] 1984 Unknown [id number] 1984 Unknown [id number] Social History Date Type Detail Facility Start: 10-26-1992 End: 07-28-2022 Tobacco smoking status NHIS Smokes tobacco daily [facility] Work Phone: Start: 10-26-1992 History of tobacco use Cigarette Smoker [facility] Start: 02-24-2022 End: 09-21-2023 Alcohol intake Current non-drinker of alcohol (finding) [facility] Start: 08-23-2021 End: 11-09-2022 History SDOH Alcohol Frequency 1 [facility] Start: 08-23-2021 History SDOH Alcohol Std Drinks 98 [facility] Start: 08-23-2021 History SDOH Social Connections Phone 5 [facility] Start: 08-23-2021 End: 11-09-2022 History SDOH Social Connections Membership 2 [facility] Start: 08-23-2021 End: 11-09-2022 History SDOH Social Connections Living 3 [facility] Start: 08-23-2021 End: 11-09-2022 History SDOH Stress 4 [facility] Start: 08-23-2021 Education 9 [facility] Start: 09-01-2020 End: 07-28-2022 Tobacco Comment started age 17 [facility] Start: 1985 Sex Assigned At Female [facility] Start: 02-14-2022 End: 10-05-2022 Exposure to SARS-CoV-2 (event) Not sure [facility] Work Phone: Start: 09-08-2021 End: 10-01-2023 Cigarettes smoked current (pack per day) - Reported 1 [facility] Start: 09-08-2021 End: 07-28-2022 Tobacco use and exposure Smokeless tobacco non-user [facility] Work Phone: Start: 09-26-2022 End: 11-09-2022 History SDOH Alcohol Std Drinks 0 [facility] Start: 11-09-2022 End: 10-01-2023 Social connection and isolation panel [facility] Do you belong to any clubs or organizations such as protestant groups, unions, fraternal or athletic groups, or school groups? No [facility] Are you now , , , , never or living with a partner? [facility] How often to you hav e a drink containing alcohol? Never [facility] How many standard dr inks containing alcohol do you have on a typical day? Patient does not drink [facility] How hard is it for y ou to pay for the very basics like food, housing, medical care, and heating Somewhat hard [facility] Do you feel stress - tense, restless, nervous, or anxious, or unable to sleep at night because your mind is troubled all the time - these days [OSQ] Rather much [facility] (I/We) worried wheth er (my/our) food would run out before (I/we) got money to buy more. Often true [facility] In the past 12 month s, was there a time when you were not able to pay the mortgage or rent on time? Yes [facility] Start: 07-08-2021 Gender identity Identifies as female gender (finding) [facility] Start: 07-08-2021 Sexual orientation Heterosexual (finding) [facility] Start: 10-12-2022 Tobacco smoking status Heavy tobacco smoker (finding) [facility] Sex Assigned At Sex [facility] Mental Status Date Assessment Result Facility 11-21-2023 Mental Status Orientation Oriented x 4 [facility] Clinical Notes 12-13-2019 to 12-11-2023 Yassine Link MD - 10/01/2023 2:53 PM ESTTelephone Encounter - Em Khanna LPN - 09/21/2023 3:32 PM EDTTelephone Encounter - German Pires APRN.WEB CONSULTANT - 09/21/2023 3:22 PM EDT Note Date & Type Note Facility 12-11-2023 Note HNO ID: [id number] Author: YASSINE LINK MD Service: ? Author Type: Physician Type: Progress Notes Filed: 12/11/2023 13:31 Note Text: This note was created using [employer] Undergar[employer]. Subjective DISTANCE HEALTH VISIT Anne Chung's identity was confirmed. The limitations of telemedicine were reviewed, and verbal consent was obtained for this encounter. This encounter is not related to previous similar encounter within the past 7 days. No face to face visit is planned in the next day in connection to this encounter. This telemedicine encounter was accomplished via ZOOM. Anne continued with perianal pain from her draining abscess. Pain was worse with walking and sitting, and made work difficult. She went to the ED again 3 days ago, but was not given an opioid refill. She was prescribed Bactrim DS. Pain was 6-8/10 and made her nauseated at times and she felt like she was going to pass out from the pain. She requested an opioid refill until her surgery 12/20/23. She felt the hydrocodone was less effective. Lidocaine cream also helped. Review of Systems Constitutional: Negative for chills and fever. Respiratory: Negative for shortness of breath. Neurological: Negative for syncope. ACTIVE PROBLEM LIST Asthma Esophageal Reflux Tobacco Use Disorder Anxiety With Depression Overactive Bladder Pain of Left Shoulder Region Non-Adherence to Medical Treatment Objective LMP 05/16/2015 Physical Exam Constitutional: General: She is not in acute distress. Appearance: She is not ill-appearing. Pulmonary: Effort: Pulmonary effort is normal. Neurological: Mental Status: She is alert. Assessment and Plan 1. Pilonidal cyst with abscess - ICD9: 685.0, ICD10: L05.01 - LIDOCAINE 4 % TOPICAL GEL - OXYCODONE-ACETAMINOPHEN 5 MG-325 MG TABLET Discussed medication dosage, usage, goals of therapy, and side effects. If she passes out, she should go to the ED. Yassine Link MD [facility] 12-07-2023 Note HNO ID: [id number] Author: BOBBI CASTANEDA MD Service: ? Author Type: Physician Type: Progress Notes Filed: 12/07/2023 18:13 Note Text: HISTORY AND PHYSICAL Anne Chung 1985 REFERRING PHYSICIAN: No ref. provider found CHIEF COMPLAINT: Consult ([facility] ER lt gluteal abscess, IAND D done in ER, antibiotic tx doxy, images requested.) HPI: The patient is a 38 year old female presents with pilonidal cyst abscess. She was seen at [facility] ED on 11/17/23 and underwent stab IANDD. She was placed on doxy and given pain medications. However, presently she still complains of pain in the area. She notes occasional drainage from the wound. She denies fevers. She admits to cigarettes use, she denies diabetes. CT scan 11/11/2023 - negative; US normal RUQ PAST MEDICAL HISTORY Diagnosis Date Abnormal mammogram [...] EGD mac EXT HYSTERECTOMY,W/PARTIAL VAGINECTO 04/2015 Non-cancer. INCISION AND DRAINAGE 11/19/2023 left gluteal abscess LAPAROSCOPIC SALPING/OOPHORECTOMY Left 10/23/2018 lysis of adhesions, Dr. Romelia SEGURA ABD PRTMANDOMENTUM DX W/WO SPEC BR/WA SPX 2014 Laparoscopy twice PAST SURGICAL HISTORY OF 2011 dental extraction REMOVAL OF OVARY(S) Right 05/10/2023 Current Outpatient Medications Medication Sig ibuprofen (MOTRIN) 800 mg tablet Take 1 tablet by mouth every 8 hours as needed for pain or fever (specify temp.) (take with food). mupirocin (BACTROBAN) 2 % ointment Apply 1 application to affected area two times a day. until healed estradiol (ESTRACE) 2 mg tablet once daily. LORazepam (ATIVAN) 0.5 mg Take [...] two times a day. (Patient not taking: Reported on 11/27/2023) No current facility-administered medications for this visit. ALLERGIES: Bees, Morphine, Penicillins, Valium [Diazepam], and Tessalon [Benzonatate] PERSONAL HISTORY: Social History Tobacco Use Smoking status: Every Day Packs/day: 1.00 Years: 29.00 Additional pack years: 0.00 Total pack years: 29.00 Types: Cigarettes Start date: 10/26/1992 Smokeless tobacco: Never Tobacco comments: started age 17 Vaping Use Vaping Use: Never used Substance Use Topics Alcohol use: No Drug use: Not Currently Types: Marijuana FAMILY HISTORY Problem Relation Age of Onset Asthma Mother Headache Mother migraine Psychiatry Mother depression, Arthritis Mother chronic pain, fibromyalgia Cancer Mother ovarian (ovarian remit syndrome had since 1991 with a complete hysterectomy)/ cancer of foot Heart Mother disease COPD Mother other (pneumonia) Mother lupus other (Other) Mother ENT cancer Hypertension Father Heart Father Stroke Father Accidental Father MVA No Known Problems Sister Heart disease Sister other (vascular) Sister swelling No Known Problems Sister Asthma Maternal Grandmother COPD Maternal Grandmother Cancer Maternal Grandfather lymph node, throat cancer; also in maternal GGF. Diabetes Paternal Grandmother 72 Stroke Paternal Grandmother Diabetes Paternal Grandfather Heart Paternal Grandfather The review of systems data was ent (more content not included)... [facility] 11-27-2023 Note HNO ID: [id number] Author: German Pires APRN.WEB CONSULTANT Service: ? Author Type: Nurse Specialist Type: [...] department follow-up visit. She was seen at [facility] November 19, 2023 with abscess of left [...] She returned to emergency department on 11/21 [facility] for incisional pain. Provided with oxycodone and [...] (Patient not taking: (more content not included)... [facility] 11-22-2023 Note HNO ID: [id number] Author: Taylor Esparza MD Service: ? Author Type: Physician Type: Progress Notes Filed: 11/22/2023 6:50 PM Note Text: PROGRESS NOTES PATIENT NAME: Anne Chung Consultation requested by Yassine Cedeon MD [[id number]] for an opinion regarding gluteal abscess. My final recommendations will be communicated back to the requesting physician by way of shared Medical record or letter to requesting physician via US mail. Assessment ASSESSMENT AND PLAN The patient is a 38-year-old female who presents with a right gluteal abscess which was drained in the [facility] ER. This seems to be doing [...] a gluteal abscess. She was seen at [facility] ER and had this drained on [...] PAST SURGICAL HISTORY OF 2012 dental extraction REMOVAL OF OVARY(S) Right 05/10/2023 [...] Father Heart Fa (more content not included)... [facility] 11-21-2023 Hospital Discharg e instructions Patient Education [...] you to stop. You may use an tkye-qeh-yqrsmcx pain medicine to control pain, unless another [...] the abscess Boil returns after getting better [id number] [employer]. [address] [place] [address]92. All rights reserved. This information is not intended as a substitute for professional medical care. Always follow your healthcare professional's instructions. Follow Up Care 11/21/2023 15:43:04 With:YASSINE LINK MD Address: [address] [place] [address]- When:2-4 days [facility] 11-21-2023 Note Basic Information Time Seen: MAYI REAVES MD 11/21/2023 15:47 History of Present Illness Patient is a 38-year-old female presenting to the emergency department today for evaluation of redness around her left buttock. She states that she was diagnosed with an abscess 2 days ago at [facility] and had an incision and drainage [...] YASSINE LINK MD Within 2-4 days [address] [place] [address]- Additional Instructions: Medications What How Much When Why Instructions New acetaminophen-hydrocodone (Bertram 325- 5 mg oral tablet) 1 tab(s) [...] CAROLINE ORTIZ MD on 11/21/2023 06:03 PM [facility] 11-21-2023 Note Discharge Instructions Thank you for allowing [facility] to assist you with your healthcare needs. [...] MD When Within 2-4 days Where: [address] [place] [address]- Allergies Bee Stings (swelling) Tessalon Perles (rash) morphine (hives) penicillin (hives) Medications Please ask your primary doctor or pharmacist before taking any other medication not listed, including over the counter drugs, herbal medications, vitamins and or supplements as they may interact with your home medications. What How Much When Why Instructions Last Dose New acetaminophen-hydrocodone (Bertram 325- 5 mg oral tablet) 1 tab(s) by mouth Every 6 hours as needed for for pain Cellulitis Duration: 1 Days Printed Prescription New acetaminophen-hydrocodone (Bertram 325- 5 mg oral tablet) 1 tab(s) [...] you to stop. You may use an fijh-ltw-nzlgcrj pain medicine to control pain, unless another [...] the abscess Boil returns after getting better [phone] [employer]. [address] [place] [address]. All rights reserved. This information is not intended as a substitute for professional medical care. Always follow your healthcare professional's instructions. Additional Information VACCINATE! IT SAVES LIVES! Members of the community who have not yet received the COVID-19 vaccine and would like to receive it can visit one of [facility] vaccine clinics. There are many vaccine clinic locations within the [facility]. For locations and available times, please visit [email or web address].[email or web address] [email or web address] It is important to note that some COVID mobile vaccine clinics are held outdoors and may be canceled in rainy or stormy conditions. To learn more about pediatric vaccinations (ages 5-11), we invite you to visit the [facility] webpage. https://www.[facility].org/p ages/2974-Qcgxh-Nozgwnsmppm-Freq vghhmt-Ezows-Ahucvvfjc.html To learn more about the COVID-19 vaccine, we invite you to visit the CDC website for a list of frequently asked questions. https://www.cdc.gov/coronavirus/ 2019-ncov/vaccines/faq.html [facility] Patient Portal Access Instructions: Stay connected with your healthcare team and access your personal medical information anytime with the [facility] Patient Portal. If you would like a full copy of your medical records please contact the [facility] Medical Records Department Sunday through Sunday between 8a.m. and 4:30p.m. Please follow the directions below to access the portal: 1.Access the email account you provided upon registration to the hospital.2.Look for an invitation email from [facility].3.Open the email and access the invitation link: Accept Invitation to [facility]4.Fill in the required hankins to create your account. Sign into [email or web address] with your username and password that you [...] you will allow to register on the [facility] Patient Portal for access to your information. You can also access the [facility] Patient Portal on the [employer] phillip. Simply click on Health Records under Health Data and then click on the [employer] logo. HOW TO SAFELY DISPOSE OF PRESCRIPTION [...] Call your local pharmacy or go to [email or web address] to find one close to you.3.Make use of household items: Use cat litter or old coffee grounds to dispose medications if other options are not available. Mix your drugs with these household products, seal them in an airtight container and throw it into the garbage. Call [facility]: [phone] to be sure your drugs can be [...] aware that I should contact my doctor. 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 Author Type: Physician Type: Progress Notes Filed: 11/20/2023 3:40 PM Note Text: This note was created using [employer] Undergarmentsriter. Subjective Anne Chung is a 38 year [...] MG-ACETAMINOPHEN 325 MG TABLET Yassine Link MD [facility] 10-01-2023 Note HNO ID: [id number] Author: Yassine Link MD Service: ? Author Type: Physician Type: Progress Notes Filed: 10/01/2023 3:13 PM Note Text: This note was created using DxNAter. Subjective DISTANCE HEALTH VISIT Anne Chung's identity [...] with temporary relief. She was going to fruit or nut picker albuterol today. She had no contact with [...] therapy, and side effects. Yassine Link MD [facility] 10-01-2023 History of Presen t illness Narrative This note was created using Momo. Subjective DISTANCE HEALTH VISIT Anne Chung's identity [...] with temporary relief. She was going to fruit or nut picker albuterol today. She had no contact with [...] Yassine Link MD documented in this encounter [facility] 09-21-2023 Miscellaneous Notes Pharmacist notified of providers message and verbalized understanding. Attempted to also contact patient with information but no answer and voice mailbox is full OK, see below.Switched to ibuprofen 800 mg TID. Eugenio, Pharmacist with [facility] calling regarding pt's script for [...] patient. Thank you. documented in this encounter [facility] 09-21-2023 Note HNO ID: [id number] Author: German Pires APRN.WEB CONSULTANT Service: ? Author Type: Nurse Specialist Type: [...] ankle. She was seen earlier today at [facility] emergency department for this complaint. She reported [...] improved with conse (more content not included)... [facility] 07-03-2023 Miscellaneous Notes TERESE: 05/28/2023 Last refill: 04/06/2023 QTY: 30 Refills: 0 documented in this encounter [facility] 06-01-2023 Miscellaneous Notes Patient has been [...] you. ANITRA Pastrana documented in this encounter [facility] 05-31-2023 Note HNO ID: [id number] Author: Hao Butcher PT Service: ? Author Type: Physical Therapist Type: Progress Notes Filed: 05/31/2023 8:57 AM Note Text: 05/31/2023 [facility] PHYSICAL THERAPY [...] scheduled additional follow-up appointments. Hao Butcher PT [facility] 05-28-2023 Note HNO ID: [id number] Author: Yassine Link MD Service: ? Author Type: Physician Type: Progress Notes Filed: 05/28/2023 7:55 PM Note Text: This note was created using [employer] Undergarments[employer]. Subjective Patient presents with: ED Follow-up Anne Chung is a 37 year old female who is status post right oophorectomy 05/10/[address] Romelia Cunningham in [facility]. She went back to work this weekend and developed progressively severe sharp umbilical pain with nausea. She went to the [place] ED yesterday, where labs were labs and CT scan of of the abdomen and pelvis were within normal limits. She was given Toradol with no relief and one dose of Bertram. She was advised to follow up with [...] 4 MG DISINTEGRATING TABLET Yassine Link MD [facility] 05-28-2023 History of Presen t illness Narrative This note was created using [employer]UK[employer] Undergarmentsriter. Subjective Patient presents with: ED Follow-up Anne Chung is a 37 year old female who is status post right oophorectomy 05/10/[address] Romelia Cunningham in [facility]. She went back to work this weekend and developed progressively severe sharp umbilical pain with nausea. She went to the [place] ED yesterday, where labs were labs and CT scan of of the abdomen and pelvis were within normal limits. She was given Toradol with no relief and one dose of Bertram. She was advised to follow up with [...] Yassine Link MD documented in this encounter [facility] 04-06-2023 Miscellaneous Notes Patient notified, verbalized understanding. Patient has been using Ativan more often, she needs to cut back Beatrice Camargo APRN.CNP PDMP website checked and validated. All prescriptions have been APPROPRIATELY filled. No suspicious activity was identified. 04/06/2023 by Beatrice Camargo APRN.YORDY Patient is calling back requesting these medications. [...] Leticia Persaud LPN documented in this encounter [facility] 03-12-2023 Note HNO ID: [id number] Author: Yassine Link MD Service: ? Author Type: Physician Type: Progress Notes Filed: 03/12/2023 6:46 PM Note Text: This note was created using Momo. Subjective DISTANCE HEALTH VISIT Anne Chung's identity [...] willingness to follow recommendations. Yassine Link MD [facility] 03-12-2023 History of Presen t illness Narrative This note was created using DxNAter. Subjective DISTANCE HEALTH VISIT Anne Chung's identity [...] Yassine Link MD documented in this encounter [facility] 02-23-2023 Miscellaneous Notes Last office visit: [...] Shelbie Bass LPN documented in this encounter [facility] 02-20-2023 Note HNO ID: [id number] Author: Beatrice Camargo APRN.EXCELSIOR PICKER Service: ? Author Type: Nurse Practitioner Type: [...] most recently seen by pain management with [facility] on 02/19. He recommended injections but needed [...] Heart Mother disea (more content not included)... [facility] 02-20-2023 Miscellaneous Notes Ms. Chung called in response to a [employer] message about [facility] an [facility]. She would like a call back to let her know why she needs the appointment. Deborah Rincon Professor Of Theology documented in this encounter [facility] 02-13-2023 Note HNO ID: [id number] Author: RT Mirlande(R) Service: ? Author Type: [...] RT Mirlande(R) February 13, 2023 2:02 PM [facility] 02-05-2023 Miscellaneous Notes TERESE: 01/29/2023 Distance Health Last refill: 01/29/2023 QTY: 9 Refills: 0 documented in this encounter [facility] 01-29-2023 Note HNO ID: [id number] Author: German Pires APRN.WEB CONSULTANT Service: ? Author Type: Nurse Specialist Type: Progress Notes Filed: 01/29/2023 11:58 AM Note Text: I have communicated my name and active licensure. The patient's identity and physical location were verified at the time of this visit. Either the patient or their legal players club representative has been informed of the risks and benefits of -- and alternatives to -- treatment through a remote evaluation and consents to proceed with the evaluation remotely. Video visit. In [place]. Patient only. Consents to visit. SUBJECTIVE: HEPATITIS [...] lump. She reports being seen by her NURSE OB Dr. Cunningham for folliculitis which she reports [...] been ordered by her vascular surgeon, scheduled. [employer] messages indicate insurance denial. Provider and vascular [...] OVER 5-15 LONNIE (more content not included)... [facility] 01-29-2023 History of Presen t illness Narrative I have communicated my name and active licensure. The patient's identity and physical location were verified at the time of this visit. Either the patient or their legal players club representative has been informed of the risks and benefits of -- and alternatives to -- treatment through a remote evaluation and consents to proceed with the evaluation remotely. Video visit. In [place]. Patient only. Consents to visit. SUBJECTIVE: HEPATITIS [...] lump. She reports being seen by her NURSE OB Dr. Cunningham for folliculitis which she reports [...] been ordered by her vascular surgeon, scheduled. [employer] messages indicate insurance denial. Provider and vascular [...] to see pain management Dr. Yang at [facility]. PCP referred her to pain management, [...] 1 - N/A documented in this encounter [facility] 12-29-2022 Miscellaneous Notes Peer to [place]: [id number] [place] [address] MRI CERVICAL SPINE SERGIO WEBB Spoke with Dr. Traylor [facility] - requested further information. Called pt and documented necessary information in telephone encounter from 12/29/22. Called insurance company back - requested us to fax this documentation for further review. Fax information faxed to . Received confirmation receipt from transmission report. Carol Rainey APRN.CNP documented in this encounter [facility] 12-29-2022 Miscellaneous Notes Called insurance company [...] past 6 months since she works at [employer] and the job requires lifting. Pt to f/u with pain management - next appointment is 01/16/23. Pt states pain management would like MRIs before considering invasive treatments. No vascular surgery plans at this time. I will contact [employer] again to discuss this information to seek approval for MRIs. Carol Rainey APRN.CNP documented in this encounter [facility] 12-28-2022 Note HNO ID: [id number] Author: Yassine Link MD Service: ? Author Type: Physician Type: Progress Notes Filed: 12/28/2022 1:55 PM Note Text: This note was created using TUKZ Undergarmentsriter. Subjective Anne Chung is a 37 year [...] pending evaluations. Letter done. Yassine Link MD [facility] 12-28-2022 History of Presen t illness Narrative This note was created using TUKZ Undergarmentsriter. Subjective Anne Chung is a 37 year [...] Yassine Link MD documented in this encounter [facility] 12-28-2022 Note HNO ID: [id number] Author: Hao Butcher PT Service: ? Author [...] L shoulder for ease of work duties [place] in home exercise program. Increase ROM of the L shoulder to WNL for reaching overhead Patient Goals: Decrease pain Planned Interventions, Frequency, and Duration: Current Frequency: 1x/week Duration: 4 weeks Total Number of Visits Planned: 4 Planned Treatment Interventions: Therapeutic exercise (48590), Neuromuscular re-education (04329), Manual therapy (10868), Self-mcfp management (71151), Patient/Family/Caregiver Education PLAN FOR NEXT VISIT: Supraspinatus [...] Independent without limitations Relevant History Preferred Language: Albanian Intake Information: Prescription present Previous Treatment: Physical [...] L Shoulder A (more content not included)... [facility] 12-28-2022 History of Presen t illness Narrative [...] L shoulder for ease of work duties [place] in home exercise program. Increase ROM of the L shoulder to WNL for reaching overhead Patient Goals: Decrease pain Planned Interventions, Frequency, and Duration: Current Frequency: 1x/week Duration: 4 weeks Total Number of Visits Planned: 4 Planned Treatment Interventions: Therapeutic exercise (84586), Neuromuscular re-education (93808), Manual therapy (16963), Self-mcfp management (12100), Patient/Family/Caregiver Education PLAN FOR NEXT VISIT: Supraspinatus [...] Independent without limitations Relevant History Preferred Language: Albanian Intake Information: Prescription present Previous Treatment: Physical [...] Hao Butcher PT documented in this encounter [facility] 12-20-2022 Miscellaneous Notes Patient has been [...] Leticia Persaud LPN documented in this encounter [facility] 12-11-2022 History of Presen t illness Narrative Video visit. In [place]. Patient only. Consents to visit. SUBJECTIVE: HEPATITIS [...] lump. She reports being seen by her NURSE OB Dr. Cunningham for folliculitis which she reports [...] appointment with pain management, Dr. Yang at [facility] She will let us know if not feeling improved. German Pires APRN.CNS 20 min in visit Medical Decision Making: Problems: Moderate: 1+ chronic illnesses with change Risk: Moderate: Drug management Medical Decision Making Level: 4 - Moderate documented in this encounter [facility] 12-08-2022 History of Presen t illness Narrative [facility] Rosas Baugh M.D., Antoine. Gabino Loya [facility] [address] [place], [place] [address] NAME: ANNE KUHN [facility] NO: [id number] DATE OF SERVICE: 12/08/[address]22 PLACE OF ENCOUNTER: [facility] Established patient recently hospitalized and [...] time. ROSAS BAUGH M.D. BB/079 Audio #: [id number] Date Dictated: 12/08/2022 11:32:05 Date Typed: 12/08/2022 14:08:06 Date Revised: documented in this encounter [facility] 12-06-2022 Miscellaneous Notes Notified via Visual [employer] 360. Left a message for pt to call [...] Levy Luu Ma documented in this encounter [facility] 12-06-2022 Miscellaneous Notes Patient seen. documented in this encounter [facility] 12-02-2022 Miscellaneous Notes See office visit. [...] Please advise patient. documented in this encounter [facility] 12-01-2022 History of Presen t illness Narrative This note was created using TUKZ Undergarmentsriter. Subjective Anne Chung is a 37 year [...] offered to refer her to a different paint pourer in [facility]. Review of Systems Constitutional: Negative. Respiratory: Negative. [...] Yassine Link MD documented in this encounter [facility] 11-09-2022 History of Presen t illness [...] Link MD S documented in this encounter [facility] 11-03-2022 Instructions German Pires APRN.WEB CONSULTANT - 11/03/2022 10:57 AM EST Keep area of concern clean and dry. Wash with soap and water daily. Avoid clothing over the area of concern. Follow-up with your NURSE OB if not feeling improved. documented in this encounter [facility] 11-03-2022 History of Presen t illness [...] lump. She reports being seen by her NURSE OB Dr. Cunningham for folliculitis which she reports [...] Pain medication x3 days Further follow-up with NURSE OB and PCP advised. ER for any severe or concerning symptoms - OXYCODONE-ACETAMINOPHEN 5 MG-325 MG TABLET - SULFAMETHOXAZOLE 800 MG-TRIMETHOPRIM 160 MG TABLET German Pires APRN.SHANNEN Medical Decision Making: Problems: Low: Acute, uncomplicated illness or injury Risk: Moderate: Drug management Medical Decision Making Level: 3 - Low documented in this encounter [facility] 10-23-2022 Miscellaneous Notes Last office visit: 10/05/22 Next appointment scheduled: 11/07/22 Patient phones requesting refills as follows: Requested Prescriptions Pending Prescriptions Disp Refills lidocaine (LIDODERM) 5 % 10 Patch 3 Sig: Apply 1 Patch as directed every 24 hours. to affected area. Remove patch after 12 hours. Please review and advise. Shelbie Bass LPN documented in this encounter [facility] 10-05-2022 Miscellaneous Notes Patient's request for [...] ask him about medication. Hipolito from the [facility] reports they are out of this medication right now. States Pt is asking if provider could send it to [facility] in [place]. Patient has been identified by name and [...] Aliyah Trimble RN documented in this encounter [facility] 10-05-2022 Instructions Yassine Link MD - 10/05/2022 12:24 PM EST SEE GYNECOLOGY FOR EVALUATION AND TREATMENT. PERCOCET IS REFILLED THIS LAST TIME. documented in this encounter [facility] 10-05-2022 History of Presen t illness [...] and it was suggested she see her product management internship about this. She had an appointment with [...] ED. It is not clear if her product management internship will recommend surgery or if the pain is coming from this ovarian cyst. Shared medical decision making was done. Opioid has risks, and we agreed I am refilling this absolutely for the last time. Yassine Link MD documented in this encounter [facility] 10-05-2022 Miscellaneous Notes Patient returned call and given update below. Castillo Posey RN Left a message for pt to call the office and ask to speak to a nurse. Birgit Velazquez LPN See Dr. Link's response in 10/02 [...] Leticia Persaud LPN documented in this encounter [facility] 10-04-2022 Miscellaneous Notes Patient has been [...] Leticia Persaud LPN documented in this encounter [facility] 09-26-2022 Instructions Yassine Link MD - 09/26/2022 11:04 AM EDT I recommend ER evaluation. documented in this encounter [facility] 09-26-2022 History of Presen t illness Narrative This note was created using Momo. Subjective Anne Chung is a 36 year [...] 10/23/2018 lysis of adhesions, Dr. Romelia Cunningham LAPNicolas ABD PRTM&OMENTUM DX W/WO SPEC BR/WA SPX [...] Yassine Link MD documented in this encounter [facility] 08-31-2022 Instructions Panchito Stephens APRN.CNP - 08/31/2022 9:31 AM EDT Activity as tolerated Use Ice and/or heat as tolerated as needed documented in this encounter [facility] 08-31-2022 History of Presen t illness [...] not nervous/anxious. [facility] Today's Date: 08/31/2022 Last Visit: N/A [...] DATE OF EXAM: Feb 20 2018 9:38AM WR 0325 - MRI THORACIC SPINE WO IVCON [...] stenosis in the cervical and thoracic spine. Basic Acoustic Analyst: PSCB Transcribe Date/Time: Feb 20 2018 9:51A Dictated [...] activity was identified. 08/31/2022 by Panchito Stephens APRN.EXCELSIOR PICKER Risk Assessment: BLACK-7: BLACK - 7 SCORES [...] and external rotation Special Tests: Non-painful (negative) Moncho-Yee, Neer's Diagnoses: (G54.0) TOS (thoracic outlet syndrome) (primary [...] 08/31/2022 Completed and reviewed, HIGH risk Functional Oriental Orthodox: Physical Therapy (Land-based) Additional Studies: XR Cervical [...] APRN.YORDY Pain [facility] documented in this encounter [facility] 07-28-2022 History of Presen t illness [...] ER report reviewed. Urine C&S preliminary from [facility] ER. Assessment and Plan ASSESSMENT/PLAN: 1. Overactive [...] Yassine Link MD documented in this encounter [facility] 07-28-2022 Miscellaneous Notes noted, should let [...] as above 6. :no Protocols used: Urinary [id number] documented in this encounter [facility] 07-14-2022 Miscellaneous Notes 1st attempt left message to return call to [phone] Ontiveros schedulers will assist in arranging this appointment. Sent e-mail also to Dr Ontiveros's schedulers and my chart message to the patient. Sending to PSS to schedule. Leticia Persaud LPN Isabel Pedroza ordered pain management consult on June 19. Please schedule 1st available or cancellation list for Dr. Brandon Ontiveros. documented in this encounter [facility] 07-03-2022 Miscellaneous Notes TERESE: 06/19/2022 Last [...] Levy Luu Ma documented in this encounter [facility] 06-27-2022 Miscellaneous Notes Please schedule her with Dr Ontiveros. Rx sent. PDMP website checked and validated. All prescriptions have been APPROPRIATELY filled. No suspicious activity was identified. 06/27/2022 by German Pires APRN.WEB CONSULTANT Please send any future requests for refills [...] Leticia Persaud LPN documented in this encounter [facility] 06-20-2022 History of Presen t illness Narrative POPULATION HEALTH NAVIGATION OUTREACH Action/[facility] Support: Called pt to schedule an appt in Pain Management. m for pt to call [phone] for scheduling. Pt identified by name and : NO Outreach Outcome/Action Unable to reach patient: Left message Did you use a PCP flex slot to schedule this appointment? N/A Reason for Outreach Care Gap or Scheduling/Wellness visits Payer: [facility]: [facility] / Plan: [facility] / Product Type: Medicaid / Care Gap Reviewed:: Specialty Scheduling Reminder: Reminder note to check Health Maintenance for items below Health Maintenance items due: There are no preventive care reminders to display for this patient. Message Sent to Practice: No Navigation Signature: Carol Perez June 20, 2022 4:19 PM documented in this encounter [facility] 06-20-2022 Miscellaneous Notes Left vm for pt with appt info. Lindsey Coley PSS documented in this encounter [facility] 06-19-2022 Miscellaneous Notes Left brief message on cell voicemail stating to call the office to schedule New patient appointment with Dr. Ontiveros or Panchito Stephens in [place]. Lolita Cotton Please assist with scheduling. Thanks Kasia Bermudez PSS documented in this encounter [facility] 06-19-2022 History of Presen t illness [...] provider, Dr Ontiveros or preferred German Pires APRN.CNS PDMP website checked and validated. All prescriptions have been APPROPRIATELY filled. No suspicious activity was identified. 06/19/2022 by German Pires APRN.CNS Medical Decision Making: Problems: Moderate: 1+ chronic illnesses with change Risk: Moderate: Drug management Medical Decision Making Level: 4 - Moderate documented in this encounter [facility] 05-23-2022 History of Presen t illness Narrative This note was created using DxNAter. Subjective Anne Chung is a 36 year old female. Her chronic underlying anxiety flared up 3-4 weeks ago. She 3 anniversaries this month, and she was reliving that stress. She had panic, insomnia, and depression. She denied suicide ideations. 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 Review of Systems Constitutional: Negative. Negative for [...] and side effects. Limit use. 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 - PAROXETINE 20 MG TABLET. Take one(1) tablet daily. Discussed medication dosage, usage, goals of therapy, and side effects. She had taken this in the past. Patient contracted for safety. - CONSULT TO [facility] Yassine Link MD documented in this encounter [facility] 05-10-2022 Miscellaneous Notes Spoke with pt [...] Leticia Persaud LPN documented in this encounter [facility] 05-04-2022 History of Presen t illness Narrative This note was created using TUKZ Undergarmentsriter. Subjective Anne Chung is a 36 year [...] Yassine Link MD documented in this encounter [facility] 04-25-2022 Miscellaneous Notes Patient has been [...] Leticia Persaud LPN documented in this encounter [facility] 04-06-2022 Miscellaneous Notes Patient has been [...] Nicole Sanches RN documented in this encounter [facility] 02-24-2022 History of Presen t illness [...] occurrence like this. No numbness or tingling. Manager Terminal is maintained. 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 Skin: General: Skin is [...] German Pires APRN.CNS documented in this encounter [facility] documented as of this encounter (statuses as of 05/23/2022) [facility] History of Past illness Narrative* Problem [...] of this encounter (statuses as of 05/23/2022) [facility] of Past illness Narrative* Problem [...] of this encounter (statuses as of 06/19/2022) [facility] History of Past illness Narrative* Problem [...] of this encounter (statuses as of 06/19/2022) [facility] History of Past illness Narrative* Problem [...] of this encounter (statuses as of 06/20/2022) [facility] History of Past illness Narrative* Problem [...] of this encounter (statuses as of 06/20/2022) [facility] of Past illness Narrative* Problem [...] of this encounter (statuses as of 06/27/2022) [facility] of Past illness Narrative* Problem [...] of this encounter (statuses as of 06/28/2022) [facility] History of Past illness Narrative* Problem [...] of this encounter (statuses as of 07/04/2022) [facility] of Past illness Narrative* Problem [...] of this encounter (statuses as of 07/28/2022) [facility] of Past illness Narrative* Problem [...] of this encounter (statuses as of 08/01/2022) [facility] of Past illness Narrative* Problem [...] of this encounter (statuses as of 08/09/2022) [facility] of Past illness Narrative* Problem [...] of this encounter (statuses as of 08/31/2022) [facility] of Past illness Narrative* Problem [...] of this encounter (statuses as of 09/26/2022) [facility] of Past illness Narrative* Problem [...] of this encounter (statuses as of 10/04/2022) [facility] of Past illness Narrative* Problem [...] of this encounter (statuses as of 10/05/2022) [facility] of Past illness Narrative* Problem [...] of this encounter (statuses as of 10/05/2022) [facility] of Past illness Narrative* Problem [...] of this encounter (statuses as of 10/06/2022) [facility] of Past illness Narrative* Problem [...] of this encounter (statuses as of 10/23/2022) [facility] of Past illness Narrative* Problem [...] of this encounter (statuses as of 11/03/2022) [facility] Past illness Narrative* Problem [...] of this encounter (statuses as of 11/09/2022) [facility] Past [facility] Narrative* Problem [...] of this encounter (statuses as of 12/02/2022) [facility] of Past illness Narrative* Problem [...] of this encounter (statuses as of 12/03/2022) [facility] Past illness Narrative* Problem [...] of this encounter (statuses as of 12/06/2022) [facility] Past [facility] Narrative* Problem [...] of this encounter (statuses as of 12/06/2022) [facility] Past illness Narrative* Problem [...] of this encounter (statuses as of 12/06/2022) [facility] Past [facility] Narrative* Problem [...] of this encounter (statuses as of 12/08/2022) [facility] Past [facility] Narrative* Problem [...] of this encounter (statuses as of 12/11/2022) [facility] Past [facility] Narrative* Problem [...] of this encounter (statuses as of 12/25/2022) [facility] Past [facility] Narrative* Problem [...] of this encounter (statuses as of 12/28/2022) [facility] Narrative* Problem [...] of this encounter (statuses as of 12/28/2022) [facility] Narrative* Problem [...] of this encounter (statuses as of 12/29/2022) [facility] Narrative* Problem [...] of this encounter (statuses as of 12/29/2022) [facility] Past [facility] Narrative* Problem Noted Date Resolved Date TOS (thoracic outlet syndrome) 10/18/2021 0 05/23/2022 Mixed stress and urge urinary incontinence 01/18 /2020 09/08/2021 Raynaud's phenomenon without gangrene 02/01/2017 12/14/2019 [...] of this encounter (statuses as of 01/29/2023) [facility] Narrative* Problem [...] of this encounter (statuses as of 02/07/2023) [facility] Narrative* Problem [...] of this encounter (statuses as of 02/20/2023) [facility] Past illness Narrative* Problem [...] of this encounter (statuses as of 02/20/2023) [facility] Past illness Narrative* Problem [...] of this encounter (statuses as of 02/23/2023) [facility] Past [facility] Narrative* Problem [...] of this encounter (statuses as of 03/13/2023) [facility] Narrative* Problem [...] of this encounter (statuses as of 04/06/2023) [facility] Narrative* Problem [...] of this encounter (statuses as of 05/29/2023) [facility] Narrative* Problem [...] of this encounter (statuses as of 06/02/2023) [facility] Past [facility] Narrative* Problem [...] of this encounter (statuses as of 07/10/2023) [facility] Narrative* Problem [...] of this encounter (statuses as of 09/21/2023) [facility] Past [facility] Narrative* Problem [...] of this encounter (statuses as of 10/01/2023) [facility] Narrative* Problem [...] of this encounter (statuses as of 10/02/2023) [facility] Narrative* Problem [...] of this encounter (statuses as of 10/03/2023) [facility] Past [facility] Narrative* Problem [...] of this encounter (statuses as of 02/24/2022) [facility] Narrative* Problem [...] of this encounter (statuses as of 04/07/2022) [facility] Past [facility] Narrative* Problem [...] of this encounter (statuses as of 04/25/2022) [facility] Past [facility] Narrative* Problem [...] of this encounter (statuses as of 05/04/2022) [facility] Narrative* Problem [...] of this encounter (statuses as of 05/10/2022) [facility] Plan note No data available for this section [facility] Evaluation note* Diagnosis Acute pain of right shoulder- Primary Pain, postoperative, acute Other acute postoperative pain TOS (thoracic outlet syndrome) Brachial plexus lesions Acute upper back pain Pain in thoracic spine documented in this encounter [facility] note* Diagnosis Bee sting reaction, accidental or unintentional, sequela documented in this encounter [facility] note* Diagnosis Uncomplicated asthma, unspecified asthma severity, unspecified whether persistent documented in this encounter [facility] note* Diagnosis Thoracic outlet syndrome- Primary Brachial plexus lesions Gastroesophageal reflux disease, unspecified whether esophagitis present Uncomplicated asthma, unspecified asthma severity, unspecified whether persistent documented in this encounter [facility] note* Diagnosis Thoracic outlet syndrome Brachial plexus lesions documented in this encounter [facility] note* Diagnosis Anxiety with depression- Primary documented in this encounter [facility] note* Diagnosis Thoracic outlet syndrome- Primary Brachial plexus lesions documented in this encounter [facility] note* Diagnosis Thoracic outlet syndrome Brachial plexus lesions documented in this encounter [facility] note* Diagnosis Thoracic outlet syndrome Brachial plexus lesions documented in this encounter [facility] note* Diagnosis Overactive bladder- Primary Hypertonicity of bladder Bacteriuria Other nonspecific finding on examination of urine documented in this encounter [facility] note* Diagnosis TOS (thoracic outlet syndrome)- Primary Brachial plexus lesions Myofascial pain syndrome Mylagia and myositis, unspecified Chronic left shoulder pain Pain in joint, shoulder region Neck pain Cervicalgia documented in this encounter [facility] note* Diagnosis Lower abdominal pain- Primary Abdominal pain, other specified site documented in this encounter [facility] note* Diagnosis Gastroesophageal reflux disease without esophagitis Esophageal reflux documented in this encounter [facility] note* Diagnosis Lower abdominal pain Abdominal pain, other specified site documented in this encounter [facility] note* Diagnosis RLQ abdominal pain- Primary Abdominal pain, right lower quadrant Cyst of ovary, right Other and unspecified ovarian cyst documented in this encounter [facility] note* Diagnosis RLQ abdominal pain Abdominal pain, right lower quadrant Cyst of ovary, right Other and unspecified ovarian cyst documented in this encounter [facility] note* Diagnosis Thoracic outlet syndrome Brachial plexus lesions documented in this encounter [facility] note* Diagnosis Folliculitis- Primary Other specified disease of hair and hair follicles RLQ abdominal pain Abdominal pain, right lower quadrant Cyst of ovary, right Other and unspecified ovarian cyst documented in this encounter [facility] note* Diagnosis Anxiety with depression- Primary Thoracic outlet syndrome Brachial plexus lesions documented in this encounter [facility] note* Diagnosis Thoracic outlet syndrome- Primary Brachial plexus lesions documented in this encounter [facility] note* Diagnosis Thoracic outlet syndrome Brachial plexus lesions documented in this encounter [facility] note* Diagnosis Thoracic outlet syndrome- Primary Brachial plexus lesions Chronic post-operative pain Cervicalgia Chronic left shoulder pain Pain in joint, shoulder region documented in this encounter [facility] note* Diagnosis Anxiety with depression documented in this encounter [facility] note* Diagnosis Acute pain of right shoulder documented in this encounter [facility] note* Diagnosis Left shoulder pain, unspecified chronicity [M25.512 (ICD-10-CM)]- Primary documented in this encounter [facility] note* Diagnosis Thoracic outlet syndrome- Primary Brachial plexus lesions Chronic post-operative pain Cervicalgia Chronic left shoulder pain Pain in joint, shoulder region documented in this encounter [facility] note* Diagnosis Cervicalgia- Primary documented in this encounter [facility] note* Diagnosis Gastroesophageal reflux disease without esophagitis Esophageal reflux documented in this encounter [facility] note* Diagnosis Pain of left shoulder region- Primary Anxiety with depression Thoracic outlet syndrome Brachial plexus lesions Non-adherence to medical treatment Personal history of noncompliance with medical treatment, presenting hazards to health documented in this encounter [facility] note* Diagnosis Thoracic outlet syndrome Brachial plexus lesions Anxiety with depression documented in this encounter [facility] note* Diagnosis Postoperative abdominal pain- Primary Abdominal pain, unspecified site Gastroesophageal reflux disease without esophagitis Esophageal reflux documented in this encounter [facility] note* Diagnosis Uncomplicated asthma, unspecified asthma severity, unspecified whether persistent documented in this encounter [facility] note* Diagnosis Anxiety with depression documented in this encounter [facility] note* Diagnosis Asthma with acute exacerbation, unspecified asthma severity, unspecified whether persistent- Primary Nausea and vomiting, unspecified vomiting type [facility] Diagnostic Procedure Only (Routine) - Pending Review Specialty Diagnoses / Procedures Referred By Contac t Referred To Contact XR IMAGING Diagnoses Acute pain of right shoulder Acute upper back pain Procedures XR CERV GENERAL 2V AP/LAT RADEX SPINE CERVICAL 2 OR 3 VIEWS German Pires APRN.WEB CONSULTANT [address] [place] [address] Xr Imaging Referral ID Status Reason Start Date Expiration Date Visits Requested Visits Authorized [id number] Pending Review Auto-Generat ed Referral 02/24/2022 03/26/2023 1 1 * Diagnostic Procedure Only (Routine) - Pending Review Specialty Diagnoses / Procedures Referred By Contac t Referred To Contact XR IMAGING Diagnoses Acute pain of right shoulder Acute upper back pain Procedures XR THORACIC GENERAL 3V AP/LAT/SWIMMERS RADEX SPINE THORACIC 3 VIEWS German Pires APRN.WEB CONSULTANT [address] [place] [address] Xr Imaging Referral ID Status Reason Start Date Expiration Date Visits Requested Visits Authorized [id number] Pending Review Auto-Generat ed Referral 02/24/2022 03/26/2023 1 1 * Physical Therapy (Routine) - Pending Review Specialty Diagnoses / Procedures Referred By Contac t Referred To Contact [facility] Diagnoses Acute pain of right shoulder Procedures CONSULT TO PHYSICAL THERAPY PHYSICAL THERAPY EVALUATION HIGH COMPLEX 45 MINS German Pires APRN.WEB CONSULTANT [address] [place] [address] [facility] [place] [address] [place] [address] Referral ID Status Reason Start Date Expiration Date Visits Requested Visits Authorized [id number] Pending Review Auto-Generat ed Referral 02/24/2022 02/24/2023 1 1 * Diagnostic Procedure Only (Routine) - Pending Review Specialty Diagnoses / Procedures Referred By Contac t Referred To Contact XR IMAGING Diagnoses Acute pain of right shoulder Procedures XR SHOULDER GENERAL 3V OR MORE AP/TRUE AP/OTHER LEFT RADEX SHOULDER COMPLETE MINIMUM 2 VIEWS German Pires APRN.CNS [address] [place] [address] Xr Imaging Referral ID Status Reason Start Date Expiration Date Visits Requested Visits Authorized [id number] Pending Review Auto-Generat ed Referral 02/24/2022 03/26/2023 1 1 [facility] for referral (narrative)* Diagnostic Procedure Only (Routine) - Pending Review Specialty Diagnoses / Procedures Referred By Contac t Referred To Contact XR IMAGING Diagnoses Chronic left shoulder pain Procedures XR SHOULDER LIMITED 2V AP/TRUE AP LEFT RADEX SHOULDER COMPLETE MINIMUM 2 VIEWS Panchito Stephens APRN.EXCELSIOR PICKER [address] [place] [address] Xr Imaging Referral ID Status Reason Start Date Expiration Date Visits Requested Visits Authorized [id number] Pending Review Auto-Generat ed Referral 08/31/2022 09/30/2023 1 1 * - Pending Review Specialty Diagnoses / Procedures Referred By Contac t Referred To Contact Physical Therapy Diagnoses TOS (thoracic outlet syndrome) Myofascial pain syndrome Chronic left shoulder pain Neck pain Procedures CONSULT TO PHYSICAL THERAPY Panchito Stephens APRN.EXCELSIOR PICKER [address] [place] [address] Referral ID Status Reason Start Date Expiration Date V isits Requested Visits Authorized [id number] Pending Review 08/31/2022 11/29/2022 1 1 * Diagnostic Procedure Only (Routine) - Pending Review Specialty Diagnoses / Procedures Referred By Contac t Referred To Contact XR IMAGING Diagnoses TOS (thoracic outlet syndrome) Procedures XR THORACIC LIMITED 2V AP/LAT RADEX SPINE THORACIC 2 VIEWS Panchito Stephens, SILVER MINER.EXCELSIOR PICKER [address] [place] [address] Xr Imaging Referral ID Status Reason Start Date Expiration Date Visits Requested Visits Authorized [id number] Pending Review Auto-Generat ed Referral 08/31/2022 09/30/2023 1 1 * Diagnostic Procedure Only (Routine) - Pending Review Specialty Diagnoses / Procedures Referred By Contac t Referred To Contact XR IMAGING Diagnoses Neck pain Procedures XR CERV OTHER 6V AP/LAT/FLX/EXT/OBL RADEX SPINE CERVICAL 6 OR MORE VIEWS Panchito Stephens, SILVER MINER.EXCELSIOR PICKER [address] [place] [address] Xr Imaging Referral ID Status Reason Start Date Expiration Date Visits Requested Visits Authorized [id number] Pending Review Auto-Generat ed Referral 08/31/2022 09/30/2023 1 1 [facility] for visit Narrative* Outpatient Procedure (Routine) - Closed Specialty Diagnoses / Procedures Referred By Contac t Referred To Contact Radiology / RADIO MRI [facility] Diagnoses Cervicalgia [M54.2] Procedures MRI WO YAW B 300 Estevan Cheney MD [address] [place] [address] Radio Mri [facility] [address] [place] [address] Referral ID Status Reason Start Date Expiration Date Visits Re quested Visits Authorized [id number] Closed 01/31/2023 05/01/2023 1 1 [facility] for visit Narrative* Diagnostic Procedure Only (Routine) - Closed Specialty Diagnoses / Procedures Referred By Contac t Referred To Contact Radiology / RADIO MRI [facility] Diagnoses Cervicalgia [M54.2] Procedures MRI WO YAW B 300 Estevan Cheney MD [address] [place] [address] Radio Mri [facility] [address] [place] [address] Referral ID Status Reason Start Date Expiration Date Visits Re quested Visits Authorized [id number] Closed 01/31/2023 05/01/2023 1 1 [facility] Summary Purpose Family History No Family History Records Found No data available for this section No Family History Records FoundNo Family History Records FoundNo Family History Records Found Advance Directives No Advanced Directives Records FoundDocuments on File Type Date Recorded 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 Advance Directive(s) 09/08/2021 9:29 AM Advance Directive(s) 11/08/2016 11:21 AM Documents on File Type Date Recorded 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 Advance Directive(s) 09/08/2021 9:29 AM [...] NEW HIGH MDM 60-74 MINUTES German Pires, EDU.WEB CONSULTANT [address] [place] [address] Referral ID Status Reason Start Date Expiration Date Visits Requested Visits Authorized [id number] Authorized PCP Requested Referral 06/19/2022 06/19/2023 1 1 Specialty Diagnoses / Procedures Referred By Contac t Referred To Contact Vascular Surgery Diagnoses Thoracic outlet syndrome Procedures CONSULT TO VASCULAR SURGERY OFFICE/OUTPATIENT [facility] 60-74 MINUTES German Pires, SILVER MINER.WEB CONSULTANT [address] [place] [address] Referral ID Status Reason Start Date Expiration Date Visits Requested Visits Authorized [id number] Authorized PCP Requested Referral 06/19/2022 06/19/2023 1 1 Specialty Diagnoses / Procedures Referred By Contac t Referred To Contact Diagnoses Thoracic outlet syndrome German Pires, SILVER MINER.WEB CONSULTANT [address] [place] [address] Referral ID Status Reason Start Date Expiration Date Visits Re quested Visits Authorized [id number] Closed 1 1 Specialty Diagnoses / Procedures Referred By Contac t Referred To Contact [facility] Diagnoses Acute pain of right shoulder Procedures PT REHAB FOLLOW UP ORDER THERAPEUTIC EXERCISES RE, EA 15 MIN. German Pires, SILVER MINER.WEB CONSULTANT [address] [place] [address] [facility] [place] [address] [place] [id number] Referral ID Status Reason Start Date Expiration Date Visits Requested Visits Authorized [id number] Waiting for Response PCP Requested Referral Auto-Generate d Referral 12/28/2022 03/28/2023 1 1 Specialty Diagnoses / Procedures Referred By Contac t Referred To Contact [facility] [place] Diagnoses Cervicalgia Procedures CONSULT TO [facility] OFFICE/OUTPATIENT [facility] 60-74 MINUTES Estevan Blackman MD [address] [place] [address] Referral ID Status Reason Start Date Expiration Date Visits Requested Visits Authorized [id number] Authorized PCP Requested Referral 02/20/2023 02/20/2024 1 1 Additional Source Comments INFORMATION SOURCE (unrecogn ized section and content) DATE CREATED AUTHOR AUTHOR'S ORGANIZ ATION 11/30/2023 [facility] ([place]) DATE CREATED AUTHOR AUTHOR'S ORGANIZ ATION 12/12/2023 [facility] DATE CREATED AUTHOR AUTHOR'S ORGANIZ ATION 12/20/2023 [facility] Source Comments (unrecognize d section and content) In the event this informatio n is protected by the Federal Confidentiality of Alcohol and Drug Abuse Patient Records regulations: The Federal rules restrict any use of the information to criminally investigate or prosecute any alcohol or drug abuse patient.[facility] the event this information is protected by the Federal Confidentiality of Alcohol and Drug Abuse Patient Records regulations: The Federal rules restrict any use of the information to criminally investigate or prosecute any alcohol or drug abuse patient.[facility] the event this information is protected by the Federal Confidentiality of Alcohol and Drug Abuse Patient Records regulations: The Federal rules restrict any use of the information to criminally investigate or prosecute any alcohol or drug abuse patient.[facility] the event this information is protected by the Federal Confidentiality of Alcohol and Drug Abuse Patient Records regulations: The Federal rules restrict any use of the information to criminally investigate or prosecute any alcohol or drug abuse patient.[facility] the event this information is protected by the Federal Confidentiality of Alcohol and Drug Abuse Patient Records regulations: The Federal rules restrict any use of the information to criminally investigate or prosecute any alcohol or drug abuse patient.[facility] the event this information is protected by the Federal Confidentiality of Alcohol and Drug Abuse Patient Records regulations: The Federal rules restrict any use of the information to criminally investigate or prosecute any alcohol or drug abuse patient.[facility] the event this information is protected by the Federal Confidentiality of Alcohol and Drug Abuse Patient Records regulations: The Federal rules restrict any use of the information to criminally investigate or prosecute any alcohol or drug abuse patient.[facility] the event this information is protected by the Federal Confidentiality of Alcohol and Drug Abuse Patient Records regulations: The Federal rules restrict any use of the information to criminally investigate or prosecute any alcohol or drug abuse patient.[facility] the event this information is protected by the Federal Confidentiality of Alcohol and Drug Abuse Patient Records regulations: The Federal rules restrict any use of the information to criminally investigate or prosecute any alcohol or drug abuse patient.[facility] the event this information is protected by the Federal Confidentiality of Alcohol and Drug Abuse Patient Records regulations: The Federal rules restrict any use of the information to criminally investigate or prosecute any alcohol or drug abuse patient.[facility] the event this information is protected by the Federal Confidentiality of Alcohol and Drug Abuse Patient Records regulations: The Federal rules restrict any use of the information to criminally investigate or prosecute any alcohol or drug abuse patient.[facility] the event this information is protected by the Federal Confidentiality of Alcohol and Drug Abuse Patient Records regulations: The Federal rules restrict any use of the information to criminally investigate or prosecute any alcohol or drug abuse patient.[facility] the event this information is protected by the Federal Confidentiality of Alcohol and Drug Abuse Patient Records regulations: The Federal rules restrict any use of the information to criminally investigate or prosecute any alcohol or drug abuse patient.[facility] the event this information is protected by the Federal Confidentiality of Alcohol and Drug Abuse Patient Records regulations: The Federal rules restrict any use of the information to criminally investigate or prosecute any alcohol or drug abuse patient.[facility] the event this information is protected by the Federal Confidentiality of Alcohol and Drug Abuse Patient Records regulations: The Federal rules restrict any use of the information to criminally investigate or prosecute any alcohol or drug abuse patient.[facility] the event this information is protected by the Federal Confidentiality of Alcohol and Drug Abuse Patient Records regulations: The Federal rules restrict any use of the information to criminally investigate or prosecute any alcohol or drug abuse patient.[facility] the event this information is protected by the Federal Confidentiality of Alcohol and Drug Abuse Patient Records regulations: The Federal rules restrict any use of the information to criminally investigate or prosecute any alcohol or drug abuse patient.[facility] the event this information is protected by the Federal Confidentiality of Alcohol and Drug Abuse Patient Records regulations: The Federal rules restrict any use of the information to criminally investigate or prosecute any alcohol or drug abuse patient.[facility]In the event this information is protected [...] or prosecute any alcohol or drug abuse patient.[facility]In the event this information is protected by the Federal Confidentiality of Alcohol and Drug Abuse Patient Records regulations: The Federal rules restrict any use of the information to criminally investigate or prosecute any alcohol or drug abuse patient.[facility]In the event this information is protected by the Federal Confidentiality of Alcohol and Drug Abuse Patient Records regulations: The Federal rules restrict any use of the information to criminally investigate or prosecute any alcohol or drug abuse patient.[facility]In the event this information is protected by the Federal Confidentiality of Alcohol and Drug Abuse Patient Records regulations: The Federal rules restrict any use of the information to criminally investigate or prosecute any alcohol or drug abuse patient.[facility] the event this information is protected by the Federal Confidentiality of Alcohol and Drug Abuse Patient Records regulations: The Federal rules restrict any use of the information to criminally investigate or prosecute any alcohol or drug abuse patient.[facility]In the event this information is protected by the Federal Confidentiality of Alcohol and Drug Abuse Patient Records regulations: The Federal rules restrict any use of the information to criminally investigate or prosecute any alcohol or drug abuse patient.[facility]In the event this information is protected by the Federal Confidentiality of Alcohol and Drug Abuse Patient Records regulations: The Federal rules restrict any use of the information to criminally investigate or prosecute any alcohol or drug abuse patient.[facility] the event this information is protected by the Federal Confidentiality of Alcohol and Drug Abuse Patient Records regulations: The Federal rules restrict any use of the information to criminally investigate or prosecute any alcohol or drug abuse patient.[facility]In the event this information is protected by the Federal Confidentiality of Alcohol and Drug Abuse Patient Records regulations: The Federal rules restrict any use of the information to criminally investigate or prosecute any alcohol or drug abuse patient.[facility]In the event this information is protected by the Federal Confidentiality of Alcohol and Drug Abuse Patient Records regulations: The Federal rules restrict any use of the information to criminally investigate or prosecute any alcohol or drug abuse patient.[facility]In the event this information is protected by the Federal Confidentiality of Alcohol and Drug Abuse Patient Records regulations: The Federal rules restrict any use of the information to criminally investigate or prosecute any alcohol or drug abuse patient.[facility]In the event this information is protected by the Federal Confidentiality of Alcohol and Drug Abuse Patient Records regulations: The Federal rules restrict any use of the information to criminally investigate or prosecute any alcohol or drug abuse patient.[facility]In the event this information is protected by the Federal Confidentiality of Alcohol and Drug Abuse Patient Records regulations: The Federal rules restrict any use of the information to criminally investigate or prosecute any alcohol or drug abuse patient.[facility]In the event this information is protected by the Federal Confidentiality of Alcohol and Drug Abuse Patient Records regulations: The Federal rules restrict any use of the information to criminally investigate or prosecute any alcohol or drug abuse patient.[facility]In the event this information is protected by the Federal Confidentiality of Alcohol and Drug Abuse Patient Records regulations: The Federal rules restrict any use of the information to criminally investigate or prosecute any alcohol or drug abuse patient.[facility]In the event this information is protected by the Federal Confidentiality of Alcohol and Drug Abuse Patient Records regulations: The Federal rules restrict any use of the information to criminally investigate or prosecute any alcohol or drug abuse patient.[facility]In the event this information is protected by the Federal Confidentiality of Alcohol and Drug Abuse Patient Records regulations: The Federal rules restrict any use of the information to criminally investigate or prosecute any alcohol or drug abuse patient.[facility]In the event this information is protected by the Federal Confidentiality of Alcohol and Drug Abuse Patient Records regulations: The Federal rules restrict any use of the information to criminally investigate or prosecute any alcohol or drug abuse patient.[facility]In the event this information is protected by the Federal Confidentiality of Alcohol and Drug Abuse Patient Records regulations: The Federal rules restrict any use of the information to criminally investigate or prosecute any alcohol or drug abuse patient.[facility]In the event this information is protected by the Federal Confidentiality of Alcohol and Drug Abuse Patient Records regulations: The Federal rules restrict any use of the information to criminally investigate or prosecute any alcohol or drug abuse patient.[facility]In the event this information is protected by the Federal Confidentiality of Alcohol and Drug Abuse Patient Records regulations: The Federal rules restrict any use of the information to criminally investigate or prosecute any alcohol or drug abuse patient.[facility]In the event this information is protected by the Federal Confidentiality of Alcohol and Drug Abuse Patient Records regulations: The Federal rules restrict any use of the information to criminally investigate or prosecute any alcohol or drug abuse patient.[facility]In the event this information is protected by the Federal Confidentiality of Alcohol and Drug Abuse Patient Records regulations: The Federal rules restrict any use of the information to criminally investigate or prosecute any alcohol or drug abuse patient.[facility]In the event this information is protected by the Federal Confidentiality of Alcohol and Drug Abuse Patient Records regulations: The Federal rules restrict any use of the information to criminally investigate or prosecute any alcohol or drug abuse patient.[facility]In the event this information is protected by the Federal Confidentiality of Alcohol and Drug Abuse Patient Records regulations: The Federal rules restrict any use of the information to criminally investigate or prosecute any alcohol or drug abuse patient.[facility]In the event this information is protected by the Federal Confidentiality of Alcohol and Drug Abuse Patient Records regulations: The Federal rules restrict any use of the information to criminally investigate or prosecute any alcohol or drug abuse patient.[facility]In the event this information is protected by the Federal Confidentiality of Alcohol and Drug Abuse Patient Records regulations: The Federal rules restrict any use of the information to criminally investigate or prosecute any alcohol or drug abuse patient.[facility]In the event this information is protected by the Federal Confidentiality of Alcohol and Drug Abuse Patient Records regulations: The Federal rules restrict any use of the information to criminally investigate or prosecute any alcohol or drug abuse patient.[facility]In the event this information is protected by the Federal Confidentiality of Alcohol and Drug Abuse Patient Records regulations: The Federal rules restrict any use of the information to criminally investigate or prosecute any alcohol or drug abuse patient.[facility]In the event this information is protected by the Federal Confidentiality of Alcohol and Drug Abuse Patient Records regulations: The Federal rules restrict any use of the information to criminally investigate or prosecute any alcohol or drug abuse patient.[facility]In the event this information is protected by the Federal Confidentiality of Alcohol and Drug Abuse Patient Records regulations: The Federal rules restrict any use of the information to criminally investigate or prosecute any alcohol or drug abuse patient.[facility]In the event this information is protected by the Federal Confidentiality of Alcohol and Drug Abuse Patient Records regulations: The Federal rules restrict any use of the information to criminally investigate or prosecute any alcohol or drug abuse patient.[facility]In the event this information is protected by the Federal Confidentiality of Alcohol and Drug Abuse Patient Records regulations: The Federal rules restrict any use of the information to criminally investigate or prosecute any alcohol or drug abuse patient.[facility]In the event this information is protected by the Federal Confidentiality of Alcohol and Drug Abuse Patient Records regulations: The Federal rules restrict any use of the information to criminally investigate or prosecute any alcohol or drug abuse patient.[facility]In the event this information is protected by the Federal Confidentiality of Alcohol and Drug Abuse Patient Records regulations: The Federal rules restrict any use of the information to criminally investigate or prosecute any alcohol or drug abuse patient.[facility]In the event this information is protected by the Federal Confidentiality of Alcohol and Drug Abuse Patient Records regulations: The Federal rules restrict any use of the information to criminally investigate or prosecute any alcohol or drug abuse patient.[facility] Reason for Visit (unrecogniz ed section and content) Reason Onset Date Comments Refill Request 04/06/2022 Reason Onset Date Comments Refill Request 04/25/2022 Reason Comments Left shoulder pain Reason Onset Date Comments Refill Request 05/09/2022 Reason Comments Consult Initial [facility] Pt Outr each Reason Comments Anxiety Reason Comments Consult [facility] Pt Outreach F/U Reason Comments Pain (Shoulder Pain) L Shoulder pain, sx 10/16 Reason Comments Future Appointment Reason Comments Appointment Reason Onset Date Comments Refill Request 06/27/2022 Reason Comments urinary symptoms Flank Pain Reason Comments ED Follow-up [facility] 07/27 urinary freq uency and pain Reason [...] Procedures NEW RS PT SPINE Panchito Stephens, SILVER MINER.EXCELSIOR PICKER [address] [place] [address] Hao Butcher, PT [address] [place] [address] Referral ID Status Reason Start Date Expiration Date Visits Re quested Visits Authorized [id number] Closed 11/26/2022 11/25/2023 1 1 Reason Comments [...] Care Teams (unrecognized sec tion and content) 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 Relationship Specialty Start Date End Date Yassine Link MD [address] [place] [address] PCP - General 02/15/07 Florin Patel MD [address] [place] [address] Referring General Surgery 07/25/18 Bartolo Gonzalez MD [address] [address] Referring General Surgery 09/24/19 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 Relationship Specialty Start Date End Date Yassine Link MD [address] [place], [place] [address] PCP - General 02/15/07 Florin Patel MD [address] [place] [address] Referring General Surgery 07/25/18 Bartolo Gonzalez MD [address] [facility] [address] [place] [address] Referring General Surgery 09/24/19 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 Relationship Specialty Start Date End Date Yassine Link MD [address] [facility] [place] [address] PCP - General 02/15/07 Florin Patel MD [address] [facility] [place] [address] Referring General Surgery 07/25/18 Bartolo Gonzalez MD [address] [facility] [address] [place] [address] Referring General Surgery 09/24/19 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 Relationship Specialty Start Date End Date Yassine Link MD [address] [facility] [place] [address] PCP - General 02/15/07 Florin Patel MD [address] [facility] [place] [place] [address] Referring General Surgery 07/25/18 Bartolo Gonzalez MD [address] [facility] [address] [place] [address] Referring General Surgery 09/24/19 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 Relationship Specialty Start Date End Date Yassine Link MD [address] [facility] [place] [address] PCP - General 02/15/07 Florin Patel MD [address] [facility] [place] [address] Referring General Surgery 07/25/18 Bartolo Gonzalez MD [address] [place] [address] Referring General Surgery 09/24/19 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 Relationship Specialty Start Date End Date Yassine Link MD [address] [facility] [place] [address] PCP - General 02/15/07 Florin Patel MD [address] [facility] [place] [address] Referring General Surgery 07/25/18 Bartolo Gonzalez MD [address] [place] [address] Referring General Surgery 09/24/19 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 Relationship Specialty Start Date End Date Yassine Link MD [address] [facility] [place] [address] PCP - General 02/15/07 Florin Patel MD [address] [facility] [place] [address] Referring General Surgery 07/25/18 Bartolo Gonzalez MD [address] [place] [address] Referring General Surgery 09/24/19 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 Relationship Specialty Start Date End Date Yassine Link MD [address] [facility] [place] [address] PCP - General 02/15/07 Florin Patel MD [address] [facility] [place] [place] [address] Referring General Surgery 07/25/18 Bartolo Gonzalez MD [address] [place] [address] Referring General Surgery 09/24/19 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 Relationship Specialty Start Date End Date Yassine Link MD [address] [facility] [place] [address] PCP - General 02/15/07 Florin Patel MD [address] [facility] [place] [place] [address] Referring General Surgery 07/25/18 Bartolo Gonzalez MD [address] [place] [address] Referring General Surgery 09/24/19 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 Relationship Specialty Start Date End Date Yassine Link MD [address] [facility] [place] [address] PCP - General 02/15/07 Florin Patel MD [address] [facility] [place] [address] Referring General Surgery 07/25/18 Bartolo Gonzalez MD [address] [place] [address] Referring General Surgery 09/24/19 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 Relationship Specialty Start Date End Date Yassine Link MD [address] [facility] [place] [address] PCP - General 02/15/07 Florin Patel MD [address] [facility] [place] [address] Referring General Surgery 07/25/18 Bartolo Gonzalez MD [address] [facility] [address] [place] [address] Referring General Surgery 09/24/19 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 Relationship Specialty Start Date End Date Yassine Link MD [address] [facility] [place] [address] PCP - General 02/15/07 Florin Patel MD [address] [facility] [place] [address] Referring General Surgery 07/25/18 Bartolo Gonzalez MD [address] [place] [address] [place] [address] Referring General Surgery 09/24/19 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 Relationship Specialty Start Date End Date Yassine Link MD [address] [facility] [place] [address] PCP - General 02/15/07 Florin Patel MD [address] [facility] [place] [place] [address] Referring General Surgery 07/25/18 Bartolo Gonzalez MD [address] [facility] [facility] [address] [place] [address] Referring General Surgery 09/24/19 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 Relationship Specialty Start Date End Date Yassine Link MD [address] [facility] [place] [address] PCP - General 02/15/07 Florin Patel MD [address] [facility] [place] [place] [address] Referring General Surgery 07/25/18 Bartolo Gonzalez MD [address] [facility] [address] [place] [address] Referring General Surgery 09/24/19 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 Relationship Specialty Start Date End Date Yassine Link MD [address] [facility] [place] [address] PCP - General 02/15/07 Florin Patel MD [address] [facility] [place] [address] Referring General Surgery 07/25/18 Bartolo Gonzalez MD [address] [facility] [address] [place] [address] Referring General Surgery 09/24/19 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 Relationship Specialty Start Date End Date Yassine Link MD [address] [facility] [place] [address] PCP - General 02/15/07 Florin Patel MD [address] [facility] [place] [place] [address] Referring General Surgery 07/25/18 Bartolo Gonzalez MD [address] [facility] [address] [place] [address] Referring General Surgery 09/24/19 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 Relationship Specialty Start Date End Date Yassine Link MD [address] [facility] [place] [address] PCP - General 02/15/07 Florin Patel MD [address] [facility] [place] [place] [address] Referring General Surgery 07/25/18 Bartolo Gonzalez MD [address] [place] [address] Referring General Surgery 09/24/19 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 Relationship Specialty Start Date End Date Yassine Link MD [address] [facility] [place] [address] PCP - General 02/15/07 Florin Patel MD [address] [facility] [place] [place] [address] Referring General Surgery 07/25/18 Bartolo Gonzalez MD [address] [place] [address] Referring General Surgery 09/24/19 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 Relationship Specialty Start Date End Date Yassine Link MD [address] [facility] [place] [address] PCP - General 02/15/07 Florin Patel MD [address] [facility] [place] [place] [address] Referring General Surgery 07/25/18 Bartolo Gonzalez MD [address] [place] [address] Referring General Surgery 09/24/19 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 Relationship Specialty Start Date End Date Yassine Link MD [address] [facility] [place] [address] PCP - General 02/15/07 Florin Patel MD [address] [facility] [place] [place] [address] Referring General Surgery 07/25/18 Bartolo Gonzalez MD [address] [facility] [address] [place] [address] Referring General Surgery 09/24/19 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 Relationship Specialty Start Date End Date Yassine Link MD [address] [facility] [place] [address] PCP - General 02/15/07 Florin Patel MD [address] [facility] [place] [address] Referring General Surgery 07/25/18 Bartolo Gonzalez MD [address] [facility] [address] [place] [address] Referring General Surgery 09/24/19 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 Relationship Specialty Start Date End Date Yassine Link MD [address] [facility] [place] [address] PCP - General 02/15/07 Florin Patel MD [address] [place] [address] Referring General Surgery 07/25/18 Bartolo Gonzalez MD [address] [facility] [address] [place] [address] Referring General Surgery 09/24/19 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 Relationship Specialty Start Date End Date Yassine Link MD [address] [facility] [place] [address] PCP - General 02/15/07 Florin Patel MD [address] [place] [address] Referring General Surgery 07/25/18 Bartolo Gonzalez MD [address] [facility] [address] [place] [address] Referring General Surgery 09/24/19 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 Relationship Specialty Start Date End Date Yassine Link MD [address] [facility] [place] [address] PCP - General 02/15/07 Florin Patel MD [address] [place] [address] Referring General Surgery 07/25/18 Bartolo Gonzalez MD [address] [facility] [address] [place] [address] Referring General Surgery 09/24/19 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 Relationship Specialty Start Date End Date Yassine Link MD [address] [place] [address] PCP - General 02/15/07 Florin Patel MD [address] [place] [address] Referring General Surgery 07/25/18 Bartolo Gonzalez MD [address] [facility] [address] [place] [address] Referring General Surgery 09/24/19 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 Relationship Specialty Start Date End Date Yassine Link MD [address] [place] [address] PCP - General 02/15/07 Florin Patel MD [address] [place] [address] Referring General Surgery 07/25/18 Bartolo Gonzalez MD [address] [facility] [address] [place] [address] Referring General Surgery 09/24/19 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 Relationship Specialty Start Date End Date Yassine Link MD [address] [place] [address] PCP - General 02/15/07 Florin Patel MD [address] [place] [address] Referring General Surgery 07/25/18 Bartolo Gonzalez MD [address] [facility] [address] [place] [address] Referring General Surgery 09/24/19 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 Relationship Specialty Start Date End Date Yassine Link MD [address] [place] [address] PCP - General 02/15/07 Florin Patel MD [address] [place] [address] Referring General Surgery 07/25/18 Bartolo Gonzalez MD [address] [place] [address] Referring General Surgery 09/24/19 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 Relationship Specialty Start Date End Date Yassine Link MD [address] [place] [address] PCP - General 02/15/07 Florin Patel MD [address] [place] [address] Referring General Surgery 07/25/18 Bartolo Gonzalez MD [address] [address] Referring General Surgery 09/24/19 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 Relationship Specialty Start Date End Date Yassine Link MD [address] [place], [place] [id number] PCP - General 02/15/07 Florin Patel MD [address] [place], [place] [address] Referring General Surgery 07/25/18 Bartolo Gonzalez MD [address] [id number] Referring General Surgery 09/24/19 FOR RECORDS PERTAINING [...] BE BASED ON THE PRIMARY CLINICAL RECORDS. [employer] [facility]. provides no warranty or guarantee of the accuracy or completeness of information in this document.
[2023-12-22] MEDS: Ondansetron ODT 4 MG Tablet PO (12:22)
[2023-12-22] MEDS: oxyCODONE 5 MG Tablet PO (12:22)
[2023-12-22 14:08] VITALS: BP 105/68; PULSE 82; O2SAT 98
== END 2023-12-22 14:13 | disposition home or self-care (01) ==
PROVIDERS: Emergency Provider Emergency Medicine; PCP Internal Medicine; Visit Provider Emergency Medicine
DX: G89.18 Other acute postprocedural pain (principal); F17.210 Nicotine dependence, cigarettes, uncomplicated; F12.90 Cannabis use, unspecified, uncomplicated
CPT/HCPCS: 96372; 99282

== ENCOUNTER 2023-12-23 15:09 | Emergency (ER) | payer MEDICAID, SELFPAY ==
[2023-12-23 15:11] VITALS: BP 112/91; PULSE 84; RESP 18; TEMP 36.7; O2SAT 100; BMI 32.3
--- OUTSIDE RECORDS SUMMARY | 2023-12-23 15:16 | XMS RPT_ITS | CCD ---
Author Name Unknown Address [address] [place] [address] Organization [facility] Care Team Providers Care Television And Radio Repairer Name Role Phone Yassine Link MD Primary Care Provider Florin Patel MD Unavailable Bartolo Gonzalez MD Unavailable PRABHAKAR SAMANIEGO, DR HURT Primary Care Physician [phone] PRABHAKAR SAMANIEGO, DR HURT Primary Care Unavailwilda [...] sources) benzonatate; Translations: [benzonatate] Drug Allergy 7 [facility] Work Phone: (20 sources) diazePAM; Translations: [DIAZEPAM] Drug Allergy 5 [facility] Work Phone: (20 sources) Morphine; Translations: [morphine] Drug Allergy 4 [facility] (7 sources) Penicillins; Translations: [PENICILLINS] Propensity to adverse reactions to drug 1 Other: See Comments [facility] Work Phone: [phone] (20 sources) Bees; Translations: [BEES] Allergy to substance 1 Anaphylaxis [facility] Work Phone: [phone] (20 sources) Penicillins Propensity to adverse reactions to drug 1 Other: See Comments [facility] Work Phone: [phone] (1 source) Bee/Wasp/Ant venom Allergy to substance swelling [facility] (1 source) Penicillin; Translations: [penicillin] Drug Allergy [facility] Medications Current Medications Medication Drug Class(es) Dates [...] Body height 152.4 cm MAYI REAVES MD [facility] 11-21-2023 15:46-0500 Body temperature 98.24 [degF] MAYI REAVES MD [facility] 11-21-2023 15:46-0500 Body weight 72.7 kg MAYI REAVES MD [facility] 11-21-2023 15:46-0500 Diastolic Blood Pressure Non-Invasive 73 mm[Hg] MAYI REAVES MD [facility] 11-21-2023 15:46-0500 Heart rate 86 /min MAYI REAVES MD [facility] 11-21-2023 15:46-0500 Respiratory rate 18 /min MAYI REAVES MD [facility] 11-21-2023 15:46-0500 Systolic Blood Pressure Non-Invasive 119 mm[Hg] MAYI REAVES MD [facility] 05-28-2023 19:18-0400 Body weight 75.75 kg Yassine Link MD Work Phone: [facility] 05-28-2023 19:18-0400 Diastolic blood pressure 62 mm[Hg] Yassine Link MD Work Phone: [facility] 05-28-2023 19:18-0400 Heart rate 80 /min Yassine Link MD Work Phone: [facility] 05-28-2023 19:18-0400 Respiratory rate 16 /min Yassine Link MD Work Phone: [facility] 05-28-2023 19:18-0400 Systolic blood pressure 96 mm[Hg] Yassine Link MD Work Phone: [facility] 12-28-2022 11:41-0500 Body temperature 97.3 [degF] Yassine Link MD Work Phone: [facility] 12-28-2022 11:41-0500 Body weight 78.47 kg Yassine Link MD Work Phone: [facility] 12-28-2022 11:41-0500 Diastolic blood pressure 68 mm[Hg] Yassine Link MD Work Phone: [facility] 12-28-2022 11:41-0500 Heart rate 80 /min Yassine Link MD Work Phone: [facility] 12-28-2022 11:41-0500 Respiratory rate 16 /min Yassine Link MD Work Phone: [facility] 12-28-2022 11:41-0500 Systolic blood pressure 116 mm[Hg] Yassine Link MD Work Phone: [facility] 12-01-2022 16:23-0500 Body temperature 97.81 [degF] Yassine Link MD Work Phone: [facility] 12-01-2022 16:23-0500 Body weight 78.02 kg Yassine Link MD Work Phone: [facility] 12-01-2022 16:23-0500 Diastolic blood pressure 72 mm[Hg] Yassine Link MD Work Phone: [facility] 12-01-2022 16:23-0500 Heart rate 87 /min Yassine Link MD Work Phone: [facility] 12-01-2022 16:23-0500 Respiratory rate 16 /min Yassine Link MD Work Phone: [facility] 12-01-2022 16:23-0500 SaO2% (BldA) [Mass fraction] 99 % Yassine Link MD Work Phone: [facility] 12-01-2022 16:23-0500 Systolic blood pressure 112 mm[Hg] Yassine Link MD Work Phone: [facility] 11-03-2022 10:19-0500 Body temperature 97.81 [degF] German Pires STONE MILL OPERATOR.OFFICE CLERK Work Phone: [facility] 11-03-2022 10:19-0500 Body weight 75.75 kg German Pires STONE MILL OPERATOR.OFFICE CLERK Work Phone: [facility] 11-03-2022 10:19-0500 Diastolic blood pressure 60 mm[Hg] German Pires STONE MILL OPERATOR.OFFICE CLERK Work Phone: [facility] 11-03-2022 10:19-0500 Heart rate 85 /min German Pires STONE MILL OPERATOR.OFFICE CLERK Work Phone: [facility] 11-03-2022 10:19-0500 SaO2% (BldA) [Mass fraction] 100 % German Pires STONE MILL OPERATOR.OFFICE CLERK Work Phone: [facility] 11-03-2022 10:19-0500 Systolic blood pressure 118 mm[Hg] German Pires STONE MILL OPERATOR.OFFICE CLERK Work Phone: [facility] 10-05-2022 11:39-0500 Body temperature 97.7 [degF] Yassine Link MD Work Phone: [facility] 10-05-2022 11:39-0500 Body weight 81.19 kg Yassine Link MD Work Phone: [facility] 10-05-2022 11:39-0500 Diastolic blood pressure 70 mm[Hg] Yassine Link MD Work Phone: [facility] 10-05-2022 11:39-0500 Heart rate 72 /min Yassine Link MD Work Phone: [facility] 10-05-2022 11:39-0500 Respiratory rate 18 /min Yassine Link MD Work Phone: [facility] 10-05-2022 11:39-0500 Systolic blood pressure 120 mm[Hg] Yassine Link MD Work Phone: [facility] 09-26-2022 10:32-0400 Body temperature 97.2 [degF] Yassine Link MD Work Phone: [facility] 09-26-2022 10:32-0400 Body weight 76.66 kg Yassine Link MD Work Phone: [facility] 09-26-2022 10:32-0400 Diastolic blood pressure 68 mm[Hg] Yassine Link MD Work Phone: [facility] 09-26-2022 10:32-0400 Heart rate 84 /min Yassine Link MD Work Phone: [facility] 09-26-2022 10:32-0400 Respiratory rate 20 /min Yassine Link MD Work Phone: [facility] 09-26-2022 10:32-0400 Systolic blood pressure 124 mm[Hg] Yassine Link MD Work Phone: [facility] 08-31-2022 09:09-0400 Heart rate 85 /min Panchito Stephens STONE MILL OPERATOR.COMMERCIAL CREDIT REVIEWER Work Phone: [facility] 08-31-2022 09:09-0400 Respiratory rate 16 /min Panchito Stephens STONE MILL OPERATOR.COMMERCIAL CREDIT REVIEWER Work Phone: [facility] 08-31-2022 09:09-0400 SaO2% (BldA) [Mass fraction] 98 % Panchito Stephens STONE MILL OPERATOR.COMMERCIAL CREDIT REVIEWER Work Phone: [facility] 07-28-2022 17:07-0400 Body temperature 97.3 [degF] Yassine Link MD Work Phone: [facility] 07-28-2022 17:07-0400 Body weight 77.11 kg Yassine Link MD Work Phone: [facility] 07-28-2022 17:07-0400 Diastolic blood pressure 68 mm[Hg] Yassine Link MD Work Phone: [facility] 07-28-2022 17:07-0400 Heart rate 80 /min Yassine Link MD Work Phone: [facility] 07-28-2022 17:07-0400 Respiratory rate 20 /min Yassine Link MD Work Phone: [facility] 07-28-2022 17:07-0400 SaO2% (BldA) [Mass fraction] 99 % Yassine Link MD Work Phone: [facility] 07-28-2022 17:07-0400 Systolic blood pressure 112 mm[Hg] Yassine Link MD Work Phone: [facility] 06-19-2022 11:43-0400 Body weight 77.11 kg German Pires STONE MILL OPERATOR.OFFICE CLERK Work Phone: [facility] 06-19-2022 11:43-0400 Diastolic blood pressure 78 mm[Hg] German Pires STONE MILL OPERATOR.OFFICE CLERK Work Phone: [facility] 06-19-2022 11:43-0400 Heart rate 84 /min German Pires STONE MILL OPERATOR.OFFICE CLERK Work Phone: [facility] 06-19-2022 11:43-0400 Respiratory rate 16 /min German Pires STONE MILL OPERATOR.OFFICE CLERK Work Phone: [facility] 06-19-2022 11:43-0400 Systolic blood pressure 118 mm[Hg] German Pires STONE MILL OPERATOR.OFFICE CLERK Work Phone: [facility] 05-23-2022 11:44-0400 Body temperature 97.2 [degF] Yassine Link MD Work Phone: [facility] 05-23-2022 11:44-0400 Body weight 78.02 kg Yassine Link MD Work Phone: [facility] 05-23-2022 11:44-0400 Diastolic blood pressure 70 mm[Hg] Yassine Link MD Work Phone: [facility] 05-23-2022 11:44-0400 Heart rate 72 /min Yassine Link MD Work Phone: [facility] 05-23-2022 11:44-0400 Respiratory rate 16 /min Yassine Link MD Work Phone: [facility] 05-23-2022 11:44-0400 Systolic blood pressure 116 mm[Hg] Yassine Link MD Work Phone: [facility] 05-04-2022 13:52-0400 Body temperature 97.39 [degF] Yassine Link MD Work Phone: [facility] 05-04-2022 13:52-0400 Body weight 79.2 kg Yassine Link MD Work Phone: [facility] 05-04-2022 13:52-0400 Diastolic blood pressure 70 mm[Hg] Yassine Link MD Work Phone: [facility] 05-04-2022 13:52-0400 Heart rate 76 /min Yassine Link MD Work Phone: [facility] 05-04-2022 13:52-0400 Respiratory rate 16 /min Yassine Link MD Work Phone: [facility] 05-04-2022 13:52-0400 Systolic blood pressure 112 mm[Hg] Yassine Link MD Work Phone: [facility] 02-24-2022 09:58-0400 Body weight 77.56 kg German Pires STONE MILL OPERATOR.OFFICE CLERK Work Phone: [facility] 02-24-2022 09:58-0400 Diastolic blood pressure 72 mm[Hg] German Pires STONE MILL OPERATOR.OFFICE CLERK Work Phone: [facility] 02-24-2022 09:58-0400 Heart rate 76 /min Gemran Pires STONE MILL OPERATOR.OFFICE CLERK Work Phone: [facility] 02-24-2022 09:58-0400 Respiratory rate 16 /min German Pires STONE MILL OPERATOR.OFFICE CLERK Work Phone: [facility] 02-24-2022 09:58-0400 Systolic blood pressure 102 mm[Hg] German Pires STONE MILL OPERATOR.OFFICE CLERK Work Phone: [facility] Encounters Encounter Date Encounter Type Care Provider Facility Start: 12-20-2023 End: 12-20-2023 ambulatory BOBBI CASTANEDA Facility:[facility] Start: 12-11-2023 End: 12-11-2023 ambulatory YASSINE LINK Facility:[facility] Start: 12-07-2023 End: 12-08-2023 ambulatory BOBBI CASSIE CASTANEDA Facility:[facility] Start: 11-27-2023 End: 11-27-2023 ambulatory GERMANRamiro PIRES Facility:[facility] Start: 11-22-2023 End: 11-22-2023 ambulatory TAYLOR ESPARZA Facility:[facility] Start: 11-21-2023 End: 11-21-2023 Emergency department patient visit MAYI REAVES MD Facility: Start: 11-21-2023 End: 11-21-2023 Emergency department patient visit MAYI REAVES MD [facility] Start: 11-20-2023 End: 11-20-2023 ambulatory YASSINE LINK Facility:[facility] Start: 10-02-2023 ambulatory Yassine herron MD Work Phone: [facility] [place] Procedures Date Procedure Procedure Detail Performing Clinician Start: 07-28-2022 Urnls dip stick/tabl et rgnt auto w/o microscopy Yassine Link MD Work Phone: Start: 08-23-2021 Adult depression scr eening assessment German Pires STONE MILL OPERATOR.OFFICE CLERK Work Phone: Colonoscopy MAYI REAVES MD Hysterectomy MAYI REAVES MD Shoulder region stru cture (body structure) MAYI REAVES MD Specimen from breast obtained by biopsy (specimen) MAYI REAVES MD Plan of Treatment Date Care Activity Detail Author Start: 10-01-2024 Annual PCP Team Manager [facility] Disease Visit Annual PCP Team Chronic Disease Visit [facility] Start: 05-28-2024 ANNUAL PCP TEAM COMMUNICATIONS LEAD LUIS ALBERTO DISEASE VISIT ANNUAL PCP TEAM CHRONIC DISEASE VISIT [facility] Start: 03-12-2024 ANNUAL PCP TEAM COMMUNICATIONS LEAD LUIS ALBERTO DISEASE VISIT ANNUAL PCP TEAM CHRONIC DISEASE VISIT [facility] Start: 02-21-2024 ANNUAL PCP TEAM COMMUNICATIONS LEAD LUIS ALBERTO DISEASE VISIT ANNUAL PCP TEAM CHRONIC DISEASE VISIT [facility] Start: 12-28-2023 ANNUAL PCP TEAM COMMUNICATIONS LEAD LUIS ALBERTO DISEASE VISIT ANNUAL PCP TEAM CHRONIC DISEASE VISIT [facility] Start: 12-01-2023 ANNUAL PCP TEAM COMMUNICATIONS LEAD LUIS ALBERTO DISEASE VISIT ANNUAL PCP TEAM CHRONIC DISEASE VISIT [facility] Start: 11-09-2023 ANNUAL PCP TEAM COMMUNICATIONS LEAD LUIS ALBERTO DISEASE VISIT ANNUAL PCP TEAM CHRONIC DISEASE VISIT [facility] Start: 10-05-2023 ANNUAL PCP TEAM COMMUNICATIONS LEAD LUIS ALBERTO DISEASE VISIT ANNUAL PCP TEAM CHRONIC DISEASE VISIT [facility] Start: 09-26-2023 ANNUAL PCP TEAM COMMUNICATIONS LEAD LUIS ALBERTO DISEASE VISIT ANNUAL PCP TEAM CHRONIC DISEASE VISIT [facility] Start: 07-28-2023 ANNUAL PCP TEAM COMMUNICATIONS LEAD LUIS ALBERTO DISEASE VISIT ANNUAL PCP TEAM CHRONIC DISEASE VISIT [facility] Start: 07-27-2023 Influenza vaccination C [facility] Start: 05-25-2023 Influenza vaccination INFLUENZA (#1) [facility] Immunizations Immunization Date Immunization Notes Care Provider Fa cility 01-17-2019 influenza virus vaccine, unspecified formulation Yassine Link MD Work Phone: [facility] 09-24-2012 tetanus toxoid, redu yuri diphtheria toxoid, and acellular pertussis vaccine, adsorbed German Pires STONE MILL OPERATOR.OFFICE CLERK Work Phone: [facility] Work Phone: Payers Date Payer Category Payer Medicaid [id number] 2022 Unknown [id number] 2020 Medicaid [employer] [id number] 2020-Present [phone] [address] [place] [address] Medicaid [id number] 2020 Medicaid [id number] 1984 Unknown [id number] 1984 Unknown [id number] 1984 Unknown [id number] Social History Date Type Detail Facility Start: 10-26-1992 End: 07-28-2022 Tobacco smoking status NHIS Smokes tobacco daily [facility] Work Phone: Start: 10-26-1992 History of tobacco use Cigarette Smoker [facility] Start: 02-24-2022 End: 09-21-2023 Alcohol intake Current non-drinker of alcohol (finding) [facility] Start: 08-23-2021 End: 11-09-2022 History SDOH Alcohol Frequency 1 [facility] Start: 08-23-2021 History SDOH Alcohol Std Drinks 98 [facility] Start: 08-23-2021 History SDOH Social Connections Phone 5 [facility] Start: 08-23-2021 End: 11-09-2022 History SDOH Social Connections Membership 2 [facility] Start: 08-23-2021 End: 11-09-2022 History SDOH Social Connections Living 3 [facility] Start: 08-23-2021 End: 11-09-2022 History SDOH Stress 4 [facility] Start: 08-23-2021 Education 9 [facility] Start: 09-01-2020 End: 07-28-2022 Tobacco Comment started age 17 [facility] Start: 1985 Sex Assigned At Female [facility] Start: 02-14-2022 End: 10-05-2022 Exposure to SARS-CoV-2 (event) Not sure [facility] Work Phone: Start: 09-08-2021 End: 10-01-2023 Cigarettes smoked current (pack per day) - Reported 1 [facility] Start: 09-08-2021 End: 07-28-2022 Tobacco use and exposure Smokeless tobacco non-user [facility] Work Phone: Start: 09-26-2022 End: 11-09-2022 History SDOH Alcohol Std Drinks 0 [facility] Start: 11-09-2022 End: 10-01-2023 Social connection and isolation panel [facility] Do you belong to any clubs or organizations such as lutheran groups, unions, fraternal or athletic groups, or school groups? No [facility] Are you now , , , , never or living with a partner? [facility] How often to you hav e a drink containing alcohol? Never [facility] How many standard dr inks containing alcohol do you have on a typical day? Patient does not drink [facility] How hard is it for y ou to pay for the very basics like food, housing, medical care, and heating Somewhat hard [facility] Do you feel stress - tense, restless, nervous, or anxious, or unable to sleep at night because your mind is troubled all the time - these days [OSQ] Rather much [facility] (I/We) worried wheth er (my/our) food would run out before (I/we) got money to buy more. Often true [facility] In the past 12 month s, was there a time when you were not able to pay the mortgage or rent on time? Yes [facility] Start: 07-08-2021 Gender identity Identifies as female gender (finding) [facility] Start: 07-08-2021 Sexual orientation Heterosexual (finding) [facility] Start: 10-12-2022 Tobacco smoking status Heavy tobacco smoker (finding) [facility] Sex Assigned At Sex [facility] Mental Status Date Assessment Result Facility 11-21-2023 Mental Status Orientation Oriented x 4 [facility] Clinical Notes 12-13-2019 to 12-11-2023 Yassine Link MD - 10/01/2023 2:53 PM ESTTelephone Encounter - Em Khanna LPN - 09/21/2023 3:32 PM EDTTelephone Encounter - German Pires APRN.OFFICE CLERK - 09/21/2023 3:22 PM EDT Note Date & Type Note Facility 12-11-2023 Note HNO ID: [id number] Author: YASSINE LINK MD Service: ? Author Type: Physician Type: Progress Notes Filed: 12/11/2023 13:31 Note Text: This note was created using Arithmaticariter. Subjective DISTANCE HEALTH VISIT Anne Chung's identity [...] go to the ED. Yassine Link MD [facility] 12-07-2023 Note HNO ID: [id number] Author: BOBBI CASTANEDA MD Service: ? Author Type: Physician Type: Progress Notes Filed: 12/07/2023 18:13 Note Text: HISTORY AND PHYSICAL Anne Chung 1985 REFERRING PHYSICIAN: No ref. provider found CHIEF COMPLAINT: Consult ([facility] ER lt gluteal abscess, IAND D done in ER, antibiotic tx doxy, images requested.) HPI: The patient is a 38 year old female presents with pilonidal cyst abscess. She was seen at [facility] ED on 11/17/23 and underwent stab IANDD. [...] data was ent (more content not included)... [facility] 11-27-2023 Note HNO ID: [id number] Author: German Pires APRN.OFFICE CLERK Service: ? Author Type: Nurse Specialist Type: [...] department follow-up visit. She was seen at [facility] November 19, 2023 with abscess of [...] She returned to emergency department on 11/21 [facility] for incisional pain. Provided with oxycodone and [...] (Patient not taking: (more content not included)... [facility] 11-22-2023 Note HNO ID: [id number] Author: Taylor Esparza MD Service: ? Author Type: Physician Type: Progress Notes Filed: 11/22/2023 6:50 PM Note Text: PROGRESS NOTES PATIENT NAME: Anne Chung Consultation requested by Yassine Cedeno MD [[id number]] for an opinion regarding gluteal abscess. My final recommendations will be communicated back to the requesting physician by way of shared Medical record or letter to requesting physician via US mail. Assessment ASSESSMENT AND PLAN The patient is a 38-year-old female who presents with a right gluteal abscess which was drained in the [facility] ER. This seems to be doing [...] a gluteal abscess. She was seen at [facility] ER and had this drained on . [...] Father Heart Fa (more content not included)... [facility] 11-21-2023 Hospital Discharg e instructions Patient Education [...] you to stop. You may use an vfbn-waw-veeovlw pain medicine to control pain, unless another [...] the abscess Boil returns after getting better [id number] [employer]. [address] [place] [address]. All rights reserved. This information is not intended as a substitute for professional medical care. Always follow your healthcare professional's instructions. Follow Up Care 11/21/2023 15:43:04 With:YASSINE LINK MD Address: [address] [place] [id number]- When:2-4 days [facility] 11-21-2023 Note Basic Information Time Seen: MAYI REAVES MD 11/21/2023 15:47 History of Present Illness Patient is a 38-year-old female presenting to the emergency department today for evaluation of redness around her left buttock. She states that she was diagnosed with an abscess 2 days ago at [facility] and had an incision and drainage performed. [...] YASSINE LINK MD Within 2-4 days [address] [place] [address]- Additional Instructions: Medications What How Much When Why Instructions New acetaminophen-hydrocodone (Greenock 325- 5 mg oral tablet) 1 tab(s) [...] CAROLINE ORTIZ MD on 11/21/2023 06:03 PM [facility] 11-21-2023 Note Discharge Instructions Thank you for allowing [place] to assist you with your healthcare needs. [...] MD When Within 2-4 days Where: [address] [place] [address]- Allergies Bee Stings (swelling) Tessalon Perles (rash) morphine (hives) penicillin (hives) Medications Please ask your primary doctor or pharmacist before taking any other medication not listed, including over the counter drugs, herbal medications, vitamins and or supplements as they may interact with your home medications. What How Much When Why Instructions Last Dose New acetaminophen-hydrocodone (Greenock 325- 5 mg oral tablet) 1 tab(s) by mouth Every 6 hours as needed for for pain Cellulitis Duration: 1 Days Printed Prescription New acetaminophen-hydrocodone (Greenock 325- 5 mg oral tablet) 1 tab(s) [...] you to stop. You may use an gpne-mri-hxdkcoo pain medicine to control pain, unless another [...] the abscess Boil returns after getting better [phone] [employer]. [address] [place] [address]. All rights reserved. This information is not intended as a substitute for professional medical care. Always follow your healthcare professional's instructions. Additional Information VACCINATE! IT SAVES LIVES! Members of the community who have not yet received the COVID-19 vaccine and would like to receive it can visit one of [facility] vaccine clinics. There are many vaccine clinic locations within the [facility]. For locations and available times, please visit [email or web address] It is important to note that some COVID mobile vaccine clinics are held outdoors and may be canceled in rainy or stormy conditions. To learn more about pediatric vaccinations (ages 5-11), we invite you to visit the [facility] webpage. [email or web address] [email or web address]-Freq [email or web address]-Xezmtnmsq.html To learn more about the COVID-19 vaccine, we invite you to visit the CDC website for a list of frequently asked questions. https://www.cdc.gov/coronavirus/ 2019-ncov/vaccines/faq.html [facility] Patient Portal Access Instructions: Stay connected with your healthcare team and access your personal medical information anytime with the [facility] Patient Portal. If you would like a full copy of your medical records please contact the [facility] Medical Records Department Sunday through Sunday between 8a.m. and 4:30p.m. Please follow the directions below to access the portal: 1.Access the email account you provided upon registration to the hospital.2.Look for an invitation email from [facility].3.Open the email and access the invitation link: Accept Invitation to [facility]4.Fill in the required hankins to create your account. Sign into www.Bungles Jungles with your username and password that you [...] you will allow to register on the [facility] Patient Portal for access to your information. You can also access the [facility] Patient Portal on the Dizkon phillip. Simply click on Health Records under Health Data and then click on the Zyrra logo. HOW TO SAFELY DISPOSE OF PRESCRIPTION [...] Call your local pharmacy or go to [email or web address] to find one close to you.3.Make use of household items: Use cat litter or old coffee grounds to dispose medications if other options are not available. Mix your drugs with these household products, seal them in an airtight container and throw it into the garbage. Call [facility]: [phone] to be sure your drugs can be [...] aware that I should contact my doctor. Patient/Senior Net C Developer Signature: Date/Time: Relationship to Patient: Witness Name/Signature: Date/Time: [facility] 11-20-2023 Note HNO ID: [id number] Author: Yassine Link MD Service: ? Author Type: Physician Type: Progress Notes Filed: 11/20/2023 3:40 PM Note Text: This note was created using Arithmaticariter. Subjective Anne Chung is a 38 year [...] MG-ACETAMINOPHEN 325 MG TABLET Yassine Link MD [facility] 10-01-2023 Note HNO ID: [id number] Author: Yassine Link MD Service: ? Author Type: Physician Type: Progress Notes Filed: 10/01/2023 3:13 PM Note Text: This note was created using Pinwine.cnter. Subjective DISTANCE HEALTH VISIT Anne Chung's identity [...] with temporary relief. 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 She had no contact [...] therapy, and side effects. Yassine Link MD [facility] 10-01-2023 History of Presen t illness Narrative This note was created using [employer]. Subjective DISTANCE HEALTH VISIT Anne Chung's identity [...] with temporary relief. 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 She had no contact [...] Yassine Link MD documented in this encounter [facility] 09-21-2023 Miscellaneous Notes Pharmacist notified of providers message and verbalized understanding. Attempted to also contact patient with information but no answer and voice mailbox is full OK, see below.Switched to ibuprofen 800 mg TID. Eugenio, Pharmacist with [facility] calling regarding pt's script for Toradol [...] patient. Thank you. documented in this encounter [facility] 09-21-2023 Note HNO ID: [id number] Author: German Pires APRN.OFFICE CLERK Service: ? Author Type: Nurse Specialist Type: [...] ankle. She was seen earlier today at [facility] emergency department for this complaint. She [...] improved with conse (more content not included)... [facility] 07-03-2023 Miscellaneous Notes TERESE: 05/28/2023 Last refill: 04/06/2023 QTY: 30 Refills: 0 documented in this encounter [facility] 06-01-2023 Miscellaneous Notes Patient has been identified [...] you. ANITRA Pastrana documented in this encounter [facility] 05-31-2023 Note HNO ID: [id number] Author: Hao Butcher PT Service: ? Author Type: Physical Therapist Type: Progress Notes Filed: 05/31/2023 8:57 AM Note Text: 05/31/2023 [facility] PHYSICAL THERAPY DISCONTINUANCE [...] scheduled additional follow-up appointments. Hao Butcher PT [facility] 05-28-2023 Note HNO ID: [id number] Author: Yassine Link MD Service: ? Author Type: Physician Type: Progress Notes Filed: 05/28/2023 7:55 PM Note Text: This note was created using Arithmaticariter. Subjective Patient presents with: ED Follow-up Anne Chung is a 37 year old female who is status post right oophorectomy 05/10/[address] Romelia Cunningham in [facility]. She went back to work this weekend and developed progressively severe sharp umbilical pain with nausea. She went to the [place] ED yesterday, where labs were labs and CT scan of of the abdomen and pelvis were within normal limits. She was given Toradol with no relief and one dose of [place]. She was advised to follow up with [...] 4 MG DISINTEGRATING TABLET Yassine Link MD [facility] 05-28-2023 History of Presen t illness Narrative This note was created using Arithmaticariter. Subjective Patient presents with: ED Follow-up Anne Chung is a 37 year old female who is status post right oophorectomy 05/10/[address] Romelia Cunningham in [facility]. She went back to work this weekend and developed progressively severe sharp umbilical pain with nausea. She went to the [place] ED yesterday, where labs were labs and CT scan of of the abdomen and pelvis were within normal limits. She was given Toradol with no relief and one dose of [place]. She was advised to follow up with [...] Yassine Link MD documented in this encounter [facility] 04-06-2023 Miscellaneous Notes Patient notified, verbalized understanding. [...] Leticia Persaud LPN documented in this encounter [facility] 03-12-2023 Note HNO ID: [id number] Author: Yassine Link MD Service: ? Author Type: Physician Type: Progress Notes Filed: 03/12/2023 6:46 PM Note Text: This note was created using [employer]. Subjective DISTANCE HEALTH VISIT Anne Chung's identity [...] willingness to follow recommendations. Yassine Link MD [facility] 03-12-2023 History of Presen t illness Narrative This note was created using Pinwine.cnter. Subjective DISTANCE HEALTH VISIT Anne Chung's identity [...] Yassine Link MD documented in this encounter [facility] 02-23-2023 Miscellaneous Notes Last office visit: 02/20/23 [...] Shelbie Bass LPN documented in this encounter [facility] 02-20-2023 Note HNO ID: [id number] Author: Beatrice Camargo APRN.COMMERCIAL CREDIT REVIEWER Service: ? Author Type: Nurse Practitioner Type: [...] most recently seen by pain management with [place] on 02/19. He recommended injections but needed [...] Heart Mother disea (more content not included)... [facility] 02-20-2023 Miscellaneous Notes Ms. Chung called in response to a [employer] message about scheduling an [facility] with [facility]. She would like a call back to let her know why she needs the appointment. Deborah Rincon Laborer [employer] documented in this encounter [facility] 02-13-2023 Note HNO ID: [id number] Author: RT Mirlande(R) Service: ? Author Type: [...] RT Mirlande(R) February 13, 2023 2:02 PM [facility] 02-05-2023 Miscellaneous Notes TERESE: 01/29/2023 Distance Health Last refill: 01/29/2023 QTY: 9 Refills: 0 documented in this encounter [facility] 01-29-2023 Note HNO ID: [id number] Author: German Pires APRN.OFFICE CLERK Service: ? Author Type: Nurse Specialist Type: Progress Notes Filed: 01/29/2023 11:58 AM Note Text: I have communicated my name and active licensure. The patient's identity and physical location were verified at the time of this visit. Either the patient or their legal personal financial representative has been informed of the risks and benefits of -- and alternatives to -- treatment through a remote evaluation and consents to proceed with the evaluation remotely. Video visit. In [place]. Patient only. Consents to visit. SUBJECTIVE: HEPATITIS [...] lump. She reports being seen by her MAIL SERVICE COORDINATOR Dr. Cunningham for folliculitis which she reports [...] been ordered by her vascular surgeon, scheduled. [employer] messages indicate insurance denial. Provider and vascular [...] OVER 5-15 LONNIE (more content not included)... [facility] 01-29-2023 History of Presen t illness Narrative I have communicated my name and active licensure. The patient's identity and physical location were verified at the time of this visit. Either the patient or their legal personal financial representative has been informed of the risks and benefits of -- and alternatives to -- treatment through a remote evaluation and consents to proceed with the evaluation remotely. Video visit. In [place]. Patient only. Consents to visit. SUBJECTIVE: HEPATITIS [...] lump. She reports being seen by her MAIL SERVICE COORDINATOR Dr. Cunningham for folliculitis which she reports [...] been ordered by her vascular surgeon, scheduled. [employer] messages indicate insurance denial. Provider and vascular [...] to see pain management Dr. Yang at [facility]. PCP referred her to pain management, declined [...] 1 - N/A documented in this encounter [facility] 12-29-2022 Miscellaneous Notes Peer to Peer [place]: [id number] [place] [id number] MRI CERVICAL SPINE SERGIO WEBB Spoke with Dr. Traylor [facility] - requested further information. Called pt and documented necessary information in telephone encounter from 12/29/22. Called insurance company back - requested us to fax this documentation for further review. Fax information faxed to . Received confirmation receipt from transmission report. Carol Rainey APRN.CNP documented in this encounter [facility] 12-29-2022 Miscellaneous Notes Called insurance company at [...] past 6 months since she works at [employer] and the job requires lifting. Pt to f/u with pain management - next appointment is 01/16/23. Pt states pain management would like MRIs before considering invasive treatments. No vascular surgery plans at this time. I will contact [employer] again to discuss this information to seek approval for MRIs. Carol Rainey APRN.CNP documented in this encounter [facility] 12-28-2022 Note HNO ID: [id number] Author: Yassine Link MD Service: ? Author Type: Physician Type: Progress Notes Filed: 12/28/2022 1:55 PM Note Text: This note was created using Arithmaticariter. Subjective Anne Chung is a 37 year [...] pending evaluations. Letter done. Yassine Link MD [facility] 12-28-2022 History of Presen t illness Narrative This note was created using Arithmaticariter. Subjective Anne Chung is a 37 year [...] Yassine Link MD documented in this encounter [facility] 12-28-2022 Note HNO ID: [id number] Author: Hao Butcher PT Service: ? Author [...] L shoulder for ease of work duties [place] in home exercise program. Increase ROM of the L shoulder to WNL for reaching overhead Patient Goals: Decrease pain Planned Interventions, Frequency, and Duration: Current Frequency: 1x/week Duration: 4 weeks Total Number of Visits Planned: 4 Planned Treatment Interventions: Therapeutic exercise (66533), Neuromuscular re-education (57700), Manual therapy (98093), Self-senior living management (29801), Patient/Family/Caregiver Education PLAN FOR NEXT VISIT: Supraspinatus [...] Independent without limitations Relevant History Preferred Language: German Intake Information: Prescription present Previous Treatment: Physical [...] L Shoulder A (more content not included)... [facility] 12-28-2022 History of Presen t illness Narrative [...] L shoulder for ease of work duties [place] in home exercise program. Increase ROM of the L shoulder to WNL for reaching overhead Patient Goals: Decrease pain Planned Interventions, Frequency, and Duration: Current Frequency: 1x/week Duration: 4 weeks Total Number of Visits Planned: 4 Planned Treatment Interventions: Therapeutic exercise (72579), Neuromuscular re-education (63192), Manual therapy (74037), Self-senior living management (18926), Patient/Family/Caregiver Education PLAN FOR NEXT VISIT: Supraspinatus [...] Independent without limitations Relevant History Preferred Language: German Intake Information: Prescription present Previous Treatment: Physical [...] Hao Butcher PT documented in this encounter [facility] 12-20-2022 Miscellaneous Notes Patient has been identified [...] Leticia Persaud LPN documented in this encounter [facility] 12-11-2022 History of Presen t illness Narrative Video visit. In [place]. Patient only. Consents to visit. SUBJECTIVE: HEPATITIS [...] lump. She reports being seen by her MAIL SERVICE COORDINATOR Dr. Cunningham for folliculitis which she reports [...] appointment with pain management, Dr. Yang at [facility] She will let us know if not feeling improved. German Pires APRN.CNS 20 min in visit Medical Decision Making: Problems: Moderate: 1+ chronic illnesses with change Risk: Moderate: Drug management Medical Decision Making Level: 4 - Moderate documented in this encounter [facility] 12-08-2022 History of Presen t illness Narrative [facility] Major General Surgery Rosas Baugh M.D., Antoine. Gabino Loya [facility] [address] [place], [place] [address] NAME: ANNE KUHN [facility] NO: [id number] DATE OF SERVICE: 12/08/[address]22 PLACE OF ENCOUNTER: [facility] Established patient recently hospitalized and discharged from [...] time. ROSAS BAUGH M.D. BB/079 Audio #: [id number] Date Dictated: 12/08/2022 11:32:05 Date Typed: 12/08/2022 14:08:06 Date Revised: documented in this encounter [facility] 12-06-2022 Miscellaneous Notes Notified via OnMyBlock. Left a message for pt to call [...] Levy Luu Ma documented in this encounter [facility] 12-06-2022 Miscellaneous Notes Patient seen. documented in this encounter [facility] 12-02-2022 Miscellaneous Notes See office visit. Patient [...] Please advise patient. documented in this encounter [facility] 12-01-2022 History of Presen t illness Narrative This note was created using Arithmaticariter. Subjective Anne Chung is a 37 year [...] offered to refer [facility] Review of Systems Constitutional: Negative. Respiratory: [...] Yassine Link MD documented in this encounter [facility] 11-09-2022 History of Presen t illness Narrative [...] Link MD S documented in this encounter [facility] 11-03-2022 Instructions German Pires APRN.OFFICE CLERK - 11/03/2022 10:57 AM EST Keep area of concern clean and dry. Wash with soap and water daily. Avoid clothing over the area of concern. Follow-up with your MAIL SERVICE COORDINATOR if not feeling improved. documented in this encounter [facility] 11-03-2022 History of Presen t illness Narrative [...] lump. She reports being seen by her MAIL SERVICE COORDINATOR Dr. Cunningham for folliculitis which she reports [...] Pain medication x3 days Further follow-up with MAIL SERVICE COORDINATOR and PCP advised. ER for any severe or concerning symptoms - OXYCODONE-ACETAMINOPHEN 5 MG-325 MG TABLET - SULFAMETHOXAZOLE 800 MG-TRIMETHOPRIM 160 MG TABLET German Pires APRN.SHANNEN Medical Decision Making: Problems: Low: Acute, uncomplicated illness or injury Risk: Moderate: Drug management Medical Decision Making Level: 3 - Low documented in this encounter [facility] 10-23-2022 Miscellaneous Notes Last office visit: 10/05/22 Next appointment scheduled: 11/07/22 Patient phones requesting refills as follows: Requested Prescriptions Pending Prescriptions Disp Refills lidocaine (LIDODERM) 5 % 10 Patch 3 Sig: Apply 1 Patch as directed every 24 hours. to affected area. Remove patch after 12 hours. Please review and advise. Shelbie Bass LPN documented in this encounter [facility] 10-05-2022 Miscellaneous Notes Patient's request for medication [...] ask him about medication. Hipolito from the [facility] reports they are out of this medication right now. States Pt is asking if provider could send it to [facility] in [place]. Patient has been identified by name and [...] Aliyah Trimble RN documented in this encounter [facility] 10-05-2022 Instructions Yassine Link MD - 10/05/2022 12:24 PM EST SEE GYNECOLOGY FOR EVALUATION AND TREATMENT. PERCOCET IS REFILLED THIS LAST TIME. documented in this encounter [facility] 10-05-2022 History of Presen t illness Narrative [...] and it was suggested she see her mural painter about this. She had an appointment with [...] ED. It is not clear if her mural painter will recommend surgery or if the pain is coming from this ovarian cyst. Shared medical decision making was done. Opioid has risks, and we agreed I am refilling this absolutely for the last time. Yassine Link MD documented in this encounter [facility] 10-05-2022 Miscellaneous Notes Patient returned call and [...] Leticia Persaud LPN documented in this encounter [facility] 10-04-2022 Miscellaneous Notes Patient has been identified [...] Leticia Persaud LPN documented in this encounter [facility] 09-26-2022 Instructions Yassine Link MD - 09/26/2022 11:04 AM EDT I recommend ER evaluation. documented in this encounter [facility] 09-26-2022 History of Presen t illness Narrative This note was created using [employer]. Subjective Anne Chung is a 36 year [...] Yassine Link MD documented in this encounter [facility] 08-31-2022 Instructions Panchito Stephens APRN.CNP - 08/31/2022 9:31 AM EDT Activity as tolerated Use Ice and/or heat as tolerated as needed documented in this encounter [facility] 08-31-2022 History of Presen t illness Narrative [...] not nervous/anxious. [facility] Today's Date: 08/31/2022 Last Visit: N/A [...] stenosis in the cervical and thoracic spine. Stem Setter: PSCB Transcribe Date/Time: Feb 20 2018 9:51A [...] activity was identified. 08/31/2022 by Panchito Stephens APRN.COMMERCIAL CREDIT REVIEWER Risk Assessment: BLACK-7: BLACK - 7 SCORES [...] 08/31/2022 Completed and reviewed, HIGH risk Functional Restorationism: Physical Therapy (Land-based) Additional Studies: XR Cervical [...] APRN.YORDY Pain Management [facility] documented in this encounter [facility] 07-28-2022 History of Presen t illness Narrative This note was created using NoteWriter. Subjective nAne Chung is a 36 year old female [...] ER report reviewed. Urine C&S preliminary from [facility] ER. Assessment and Plan ASSESSMENT/PLAN: 1. [...] Yassine Link MD documented in this encounter [facility] 07-28-2022 Miscellaneous Notes noted, should let urology [...] as above 6. :no Protocols used: Urinary Ttywnahl-[id number]-MI documented in this encounter [facility] 07-14-2022 Miscellaneous Notes 1st attempt left message to return call to [phone] Ontiveros schedulers will assist in arranging this appointment. Sent e-mail also to Dr Ontiveros's schedulers and my chart message to the patient. Sending to PSS to schedule. Leticia Persaud LPN Isabel Pedroza ordered pain management consult on June 19. Please schedule 1st available or cancellation list for Dr. Brandon Ontiveros. documented in this encounter [facility] 07-03-2022 Miscellaneous Notes TERESE: 06/19/2022 Last refill: [...] Levy Luu Ma documented in this encounter [facility] 06-27-2022 Miscellaneous Notes Please schedule her with Dr Ontiveros. Rx sent. PDMP website checked and validated. All prescriptions have been APPROPRIATELY filled. No suspicious activity was identified. 06/27/2022 by German Pires APRN.OFFICE CLERK Please send any future requests for refills [...] Leticia Persaud LPN documented in this encounter [facility] 06-20-2022 History of Presen t illness Narrative POPULATION HEALTH NAVIGATION OUTREACH Action/[facility] Support: Called pt to schedule an appt in Pain Management. m for pt to call [phone] for scheduling. Pt identified by name and : NO Outreach Outcome/Action Unable to reach patient: Left message Did you use a PCP flex slot to schedule this appointment? N/A Reason for Outreach Care Gap or Scheduling/Wellness visits Payer: [facility] / Plan: [facility] / Product Type: Medicaid / Care Gap Reviewed:: Specialty Scheduling Reminder: Reminder note to check Health Maintenance for items below Health Maintenance items due: There are no preventive care reminders to display for this patient. Message Sent to Practice: No Navigation Signature: Carol Perez June 20, 2022 4:19 PM documented in this encounter [facility] 06-20-2022 Miscellaneous Notes Left vm for pt with appt info. Lindsey Coley PSS documented in this encounter [facility] 06-19-2022 Miscellaneous Notes Left brief message on cell voicemail stating to call the office to schedule New patient appointment with Dr. Ontiveros or Panchito Stephens in [place]. Lolita Cotton Please assist with scheduling. Thanks Kasia Bermudez PSS documented in this encounter [facility] 06-19-2022 History of Presen t illness Narrative [...] 4 - Moderate documented in this encounter [facility] 05-23-2022 History of Presen t illness Narrative This note was created using Pinwine.cnter. Subjective Anne Chung is a 36 year old female. Her chronic underlying anxiety flared up 3-4 weeks ago. She 3 anniversaries this month, and she was reliving that stress. She had panic, insomnia, and depression. She denied suicide ideations. 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 Review of Systems Constitutional: Negative. Negative for [...] and side effects. Limit use. Not for ocean transportation intermediary use. - PAROXETINE 20 MG TABLET. Take one(1) tablet daily. Discussed medication dosage, usage, goals of therapy, and side effects. She had taken this in the past. Patient contracted for safety. - CONSULT TO [facility] Yassine Link MD documented in this encounter [facility] 05-10-2022 Miscellaneous Notes Spoke with pt and [...] Leticia Persaud LPN documented in this encounter [facility] 05-04-2022 History of Presen t illness Narrative This note was created using Arithmaticariter. Subjective Anne Chung is a 36 year [...] Yassine Link MD documented in this encounter [facility] 04-25-2022 Miscellaneous Notes Patient has been identified [...] Leticia Persaud LPN documented in this encounter [facility] 04-06-2022 Miscellaneous Notes Patient has been identified [...] Nicole Sanches RN documented in this encounter [facility] 02-24-2022 History of Presen t illness Narrative [...] occurrence like this. No numbness or tingling. Tree [employer] is maintained. 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 Skin: General: Skin is [...] German Pires APRN.CNS documented in this encounter [facility] documented as of this encounter (statuses as of 05/23/2022) [facility] History of Past illness Narrative* Problem Noted [...] of this encounter (statuses as of 05/23/2022) [facility] of Past illness Narrative* Problem Noted [...] of this encounter (statuses as of 06/19/2022) [facility] of Past illness Narrative* Problem Noted [...] of this encounter (statuses as of 06/19/2022) [facility] of Past illness Narrative* Problem Noted [...] of this encounter (statuses as of 06/20/2022) [facility] of Past illness Narrative* Problem Noted [...] of this encounter (statuses as of 06/20/2022) [facility] History of Past illness Narrative* Problem Noted [...] of this encounter (statuses as of 06/27/2022) [facility] of Past illness Narrative* Problem Noted [...] of this encounter (statuses as of 06/28/2022) [facility] of Past illness Narrative* Problem Noted [...] of this encounter (statuses as of 07/04/2022) [facility] History of Past illness Narrative* Problem Noted [...] of this encounter (statuses as of 07/28/2022) [facility] of Past illness Narrative* Problem Noted [...] of this encounter (statuses as of 08/01/2022) [facility] of Past illness Narrative* Problem Noted [...] of this encounter (statuses as of 08/09/2022) [facility] of Past illness Narrative* Problem Noted [...] of this encounter (statuses as of 08/31/2022) [facility] of Past illness Narrative* Problem Noted [...] of this encounter (statuses as of 09/26/2022) [facility] of Past illness Narrative* Problem Noted [...] of this encounter (statuses as of 10/04/2022) [facility] of Past illness Narrative* Problem Noted [...] of this encounter (statuses as of 10/05/2022) [facility] of Past illness Narrative* Problem Noted [...] of this encounter (statuses as of 10/05/2022) [facility] Past illness Narrative* Problem Noted [...] of this encounter (statuses as of 10/06/2022) [facility] of Past illness Narrative* Problem Noted [...] of this encounter (statuses as of 10/23/2022) [facility] of Past illness Narrative* Problem Noted [...] of this encounter (statuses as of 11/03/2022) [facility] Narrative* Problem Noted [...] of this encounter (statuses as of 11/09/2022) [facility] Past illness Narrative* Problem Noted [...] of this encounter (statuses as of 12/02/2022) [facility] Past [facility] Narrative* Problem Noted [...] of this encounter (statuses as of 12/03/2022) [facility] Past illness Narrative* Problem Noted [...] of this encounter (statuses as of 12/06/2022) [facility] Past illness Narrative* Problem Noted [...] of this encounter (statuses as of 12/06/2022) [facility] of Past illness Narrative* Problem Noted [...] of this encounter (statuses as of 12/06/2022) [facility] Narrative* Problem Noted [...] of this encounter (statuses as of 12/08/2022) [facility] Past illness Narrative* Problem Noted [...] of this encounter (statuses as of 12/11/2022) [facility] Narrative* Problem Noted [...] of this encounter (statuses as of 12/25/2022) [facility] Past illness Narrative* Problem Noted [...] of this encounter (statuses as of 12/28/2022) [facility] Narrative* Problem Noted [...] of this encounter (statuses as of 12/28/2022) [facility] of Past illness Narrative* Problem Noted [...] of this encounter (statuses as of 12/29/2022) [facility] Past illness Narrative* Problem Noted [...] of this encounter (statuses as of 12/29/2022) [facility] Past illness Narrative* Problem Noted [...] of this encounter (statuses as of 01/29/2023) [facility] Narrative* Problem Noted [...] of this encounter (statuses as of 02/07/2023) [facility] Narrative* Problem Noted [...] of this encounter (statuses as of 02/20/2023) [facility] Past illness Narrative* Problem Noted [...] of this encounter (statuses as of 02/20/2023) [facility] Past illness Narrative* Problem Noted [...] of this encounter (statuses as of 02/23/2023) [facility] Past illness Narrative* Problem Noted [...] of this encounter (statuses as of 03/13/2023) [facility] Past [facility] Narrative* Problem Noted [...] of this encounter (statuses as of 04/06/2023) [facility] Past illness Narrative* Problem Noted [...] of this encounter (statuses as of 05/29/2023) [facility] Narrative* Problem Noted [...] of this encounter (statuses as of 06/02/2023) [facility] Past illness Narrative* Problem Noted [...] of this encounter (statuses as of 07/10/2023) [facility] Narrative* Problem Noted [...] of this encounter (statuses as of 09/21/2023) [facility] Past illness Narrative* Problem Noted [...] of this encounter (statuses as of 10/01/2023) [facility] Narrative* Problem Noted [...] of this encounter (statuses as of 10/02/2023) [facility] illness Narrative* Problem Noted [...] of this encounter (statuses as of 10/03/2023) [facility] of Past illness Narrative* Problem Noted [...] of this encounter (statuses as of 02/24/2022) [facility] Narrative* Problem Noted [...] of this encounter (statuses as of 04/07/2022) [facility] Narrative* Problem Noted [...] of this encounter (statuses as of 04/25/2022) [facility] Narrative* Problem Noted [...] of this encounter (statuses as of 05/04/2022) [facility] Narrative* Problem Noted [...] of this encounter (statuses as of 05/10/2022) [facility] + Plan note No data available for this section [facility] Evaluation note* Diagnosis Acute pain of right shoulder- Primary Pain, postoperative, acute Other acute postoperative pain TOS (thoracic outlet syndrome) Brachial plexus lesions Acute upper back pain Pain in thoracic spine documented in this encounter [facility] note* Diagnosis Bee sting reaction, accidental or unintentional, sequela documented in this encounter [facility] note* Diagnosis Uncomplicated asthma, unspecified asthma severity, unspecified whether persistent documented in this encounter [facility] note* Diagnosis Thoracic outlet syndrome- Primary Brachial plexus lesions Gastroesophageal reflux disease, unspecified whether esophagitis present Uncomplicated asthma, unspecified asthma severity, unspecified whether persistent documented in this encounter [facility] note* Diagnosis Thoracic outlet syndrome Brachial plexus lesions documented in this encounter [facility] note* Diagnosis Anxiety with depression- Primary documented in this encounter [facility] note* Diagnosis Thoracic outlet syndrome- Primary Brachial plexus lesions documented in this encounter [facility] note* Diagnosis Thoracic outlet syndrome Brachial plexus lesions documented in this encounter [facility] note* Diagnosis Thoracic outlet syndrome Brachial plexus lesions documented in this encounter [facility] note* Diagnosis Overactive bladder- Primary Hypertonicity of bladder Bacteriuria Other nonspecific finding on examination of urine documented in this encounter [facility] note* Diagnosis TOS (thoracic outlet syndrome)- Primary Brachial plexus lesions Myofascial pain syndrome Mylagia and myositis, unspecified Chronic left shoulder pain Pain in joint, shoulder region Neck pain Cervicalgia documented in this encounter [facility] note* Diagnosis Lower abdominal pain- Primary Abdominal pain, other specified site documented in this encounter [facility] note* Diagnosis Gastroesophageal reflux disease without esophagitis Esophageal reflux documented in this encounter [facility] note* Diagnosis Lower abdominal pain Abdominal pain, other specified site documented in this encounter [facility] note* Diagnosis RLQ abdominal pain- Primary Abdominal pain, right lower quadrant Cyst of ovary, right Other and unspecified ovarian cyst documented in this encounter [facility] note* Diagnosis RLQ abdominal pain Abdominal pain, right lower quadrant Cyst of ovary, right Other and unspecified ovarian cyst documented in this encounter [facility] note* Diagnosis Thoracic outlet syndrome Brachial plexus lesions documented in this encounter [facility] note* Diagnosis Folliculitis- Primary Other specified disease of hair and hair follicles RLQ abdominal pain Abdominal pain, right lower quadrant Cyst of ovary, right Other and unspecified ovarian cyst documented in this encounter [facility] note* Diagnosis Anxiety with depression- Primary Thoracic outlet syndrome Brachial plexus lesions documented in this encounter [facility] note* Diagnosis Thoracic outlet syndrome- Primary Brachial plexus lesions documented in this encounter [facility] note* Diagnosis Thoracic outlet syndrome Brachial plexus lesions documented in this encounter [facility] note* Diagnosis Thoracic outlet syndrome- Primary Brachial plexus lesions Chronic post-operative pain Cervicalgia Chronic left shoulder pain Pain in joint, shoulder region documented in this encounter [facility] note* Diagnosis Anxiety with depression documented in this encounter [facility] note* Diagnosis Acute pain of right shoulder documented in this encounter [facility] note* Diagnosis Left shoulder pain, unspecified chronicity [M25.512 (ICD-10-CM)]- Primary documented in this encounter [facility] note* Diagnosis Thoracic outlet syndrome- Primary Brachial plexus lesions Chronic post-operative pain Cervicalgia Chronic left shoulder pain Pain in joint, shoulder region documented in this encounter [facility] note* Diagnosis Cervicalgia- Primary documented in this encounter [facility] note* Diagnosis Gastroesophageal reflux disease without esophagitis Esophageal reflux documented in this encounter [facility] note* Diagnosis Pain of left shoulder region- Primary Anxiety with depression Thoracic outlet syndrome Brachial plexus lesions Non-adherence to medical treatment Personal history of noncompliance with medical treatment, presenting hazards to health documented in this encounter [facility] note* Diagnosis Thoracic outlet syndrome Brachial plexus lesions Anxiety with depression documented in this encounter [facility] note* Diagnosis Postoperative abdominal pain- Primary Abdominal pain, unspecified site Gastroesophageal reflux disease without esophagitis Esophageal reflux documented in this encounter [facility] note* Diagnosis Uncomplicated asthma, unspecified asthma severity, unspecified whether persistent documented in this encounter [facility] note* Diagnosis Anxiety with depression documented in this encounter [facility] note* Diagnosis Asthma with acute exacerbation, unspecified asthma severity, unspecified whether persistent- Primary Nausea and vomiting, unspecified vomiting type [facility] Diagnostic Procedure Only (Routine) - Pending Review Specialty Diagnoses / Procedures Referred By Contac t Referred To Contact XR IMAGING Diagnoses Acute pain of right shoulder Acute upper back pain Procedures XR CERV GENERAL 2V AP/LAT RADEX SPINE CERVICAL 2 OR 3 VIEWS German Pires APRN.OFFICE CLERK [address] [place] [address] Xr Imaging Referral ID Status Reason Start Date Expiration Date Visits Requested Visits Authorized [id number] Pending Review Auto-Generat ed Referral 02/24/2022 03/26/2023 1 1 * Diagnostic Procedure Only (Routine) - Pending Review Specialty Diagnoses / Procedures Referred By Contac t Referred To Contact XR IMAGING Diagnoses Acute pain of right shoulder Acute upper back pain Procedures XR THORACIC GENERAL 3V AP/LAT/SWIMMERS RADEX SPINE THORACIC 3 VIEWS German Pires APRN.OFFICE CLERK [address] [place] [address] Xr Imaging Referral ID Status Reason Start Date Expiration Date Visits Requested Visits Authorized [id number] Pending Review Auto-Generat ed Referral 02/24/2022 03/26/2023 1 1 * Physical Therapy (Routine) - Pending Review Specialty Diagnoses / Procedures Referred By Contac t Referred To Contact [facility] Diagnoses Acute pain of right shoulder Procedures CONSULT TO PHYSICAL THERAPY PHYSICAL THERAPY EVALUATION HIGH COMPLEX 45 MINS German Pires APRN.OFFICE CLERK [address] [place] [address] [facility] [address] [place] [address] Referral ID Status Reason Start Date Expiration Date Visits Requested Visits Authorized [id number] Pending Review Auto-Generat ed Referral 02/24/2022 02/24/2023 1 1 * Diagnostic Procedure Only (Routine) - Pending Review Specialty Diagnoses / Procedures Referred By Contac t Referred To Contact XR IMAGING Diagnoses Acute pain of right shoulder Procedures XR SHOULDER GENERAL 3V OR MORE AP/TRUE AP/OTHER LEFT RADEX SHOULDER COMPLETE MINIMUM 2 VIEWS German Pires APRN.CNS [address] [place] [address] Xr Imaging Referral ID Status Reason Start Date Expiration Date Visits Requested Visits Authorized [id number] Pending Review Auto-Generat ed Referral 02/24/2022 03/26/2023 1 1 [facility] for referral (narrative)* Diagnostic Procedure Only (Routine) - Pending Review Specialty Diagnoses / Procedures Referred By Contac t Referred To Contact XR IMAGING Diagnoses Chronic left shoulder pain Procedures XR SHOULDER LIMITED 2V AP/TRUE AP LEFT RADEX SHOULDER COMPLETE MINIMUM 2 VIEWS Panchito Stephens APRN.COMMERCIAL CREDIT REVIEWER [address] [place] [address] Xr Imaging Referral ID Status Reason Start Date Expiration Date Visits Requested Visits Authorized [id number] Pending Review Auto-Generat ed Referral 08/31/2022 09/30/2023 1 1 * - Pending Review Specialty Diagnoses / Procedures Referred By Contac t Referred To Contact Physical Therapy Diagnoses TOS (thoracic outlet syndrome) Myofascial pain syndrome Chronic left shoulder pain Neck pain Procedures CONSULT TO PHYSICAL THERAPY Panchito Stephens APRN.COMMERCIAL CREDIT REVIEWER [address] [place] [address] Referral ID Status Reason Start Date Expiration Date V isits Requested Visits Authorized [id number] Pending Review 08/31/2022 11/29/2022 1 1 * Diagnostic Procedure Only (Routine) - Pending Review Specialty Diagnoses / Procedures Referred By Contac t Referred To Contact XR IMAGING Diagnoses TOS (thoracic outlet syndrome) Procedures XR THORACIC LIMITED 2V AP/LAT RADEX SPINE THORACIC 2 VIEWS Panchito Stephens, STONE MILL OPERATOR.COMMERCIAL CREDIT REVIEWER [address] [place] [address] Xr Imaging Referral ID Status Reason Start Date Expiration Date Visits Requested Visits Authorized [id number] Pending Review Auto-Generat ed Referral 08/31/2022 09/30/2023 1 1 Electronically signed by Panchito Stephens STONE MILL OPERATOR.COMMERCIAL CREDIT REVIEWER at 08/31/2022 9:29 AM EDT * Diagnostic Procedure Only (Routine) - Pending Review Specialty Diagnoses / Procedures Referred By Contac t Referred To Contact XR IMAGING Diagnoses Neck pain Procedures XR CERV OTHER 6V AP/LAT/FLX/EXT/OBL RADEX SPINE CERVICAL 6 OR MORE VIEWS Panchito Stephens, STONE MILL OPERATOR.COMMERCIAL CREDIT REVIEWER [address] [place] [address] Xr Imaging Referral ID Status Reason Start Date Expiration Date Visits Requested Visits Authorized [id number] Pending Review Auto-Generat ed Referral 08/31/2022 09/30/2023 1 1 [facility] for visit Narrative* Outpatient Procedure (Routine) - Closed Specialty Diagnoses / Procedures Referred By Contac t Referred To Contact Radiology / RADIO [facility] Diagnoses Cervicalgia [M54.2] Procedures MRI WO YAW B [address] Estevan Cheney MD [address] [place] [address] Radio Mri [facility] [address] [place] [address] Referral ID Status Reason Start Date Expiration Date Visits Re quested Visits Authorized [id number] Closed 01/31/2023 05/01/2023 1 1 [facility] for visit Narrative* Diagnostic Procedure Only (Routine) - Closed Specialty Diagnoses / Procedures Referred By Contac t Referred To Contact Radiology / RADIO MRI [facility] Diagnoses Cervicalgia [M54.2] Procedures MRI WO YAW B 300 Estevan Cheney MD [address] [place] [address] Radio Mri [facility] [address] [place] [address] Referral ID Status Reason Start Date Expiration Date Visits Re quested Visits Authorized [id number] Closed 01/31/2023 05/01/2023 1 1 [facility] Summary Purpose Family History No Family History Records Found No data available for this section No Family History Records FoundNo Family History Records FoundNo Family History Records Found Advance Directives No Advanced Directives Records FoundDocuments on File Type Date Recorded 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 Advance Directive(s) 09/08/2021 9:29 AM Advance Directive(s) 11/08/2016 11:21 AM Documents on File Type Date Recorded 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 60-74 MINUTES German Pires, STONE MILL OPERATOR.OFFICE CLERK [address] [place] [address] Referral ID Status Reason Start Date Expiration Date Visits Requested Visits Authorized [id number] Authorized PCP Requested Referral 06/19/2022 06/19/2023 1 1 Specialty Diagnoses / Procedures Referred By Contac t Referred To Contact Diagnoses Thoracic outlet syndrome German Pires, STONE MILL OPERATOR.OFFICE CLERK [address] [place] [address] Referral ID Status Reason Start Date Expiration Date Visits Re quested Visits Authorized [id number] Closed 1 1 Specialty Diagnoses / Procedures Referred By Contac t Referred To Contact [facility] Diagnoses Acute pain of right shoulder Procedures PT REHAB FOLLOW UP ORDER THERAPEUTIC EXERCISES RE, EA 15 MIN. German Pires, STONE MILL OPERATOR.OFFICE CLERK [address] [place] [address] [facility] [address] [place] [id number] Referral ID Status Reason Start Date Expiration Date Visits Requested Visits Authorized [id number] Waiting for Response PCP Requested Referral Auto-Generate d Referral 12/28/2022 03/28/2023 1 1 Specialty Diagnoses / Procedures Referred By Contac t Referred To Contact [facility] Diagnoses Cervicalgia Procedures CONSULT TO [facility] OFFICE/OUTPATIENT [facility] 60-74 MINUTES Estevan Blackman MD [address] [place] [address] Referral ID Status Reason Start Date Expiration Date Visits Requested Visits Authorized [id number] Authorized PCP Requested Referral 02/20/2023 02/20/2024 1 1 Additional Source Comments INFORMATION SOURCE (unrecogn ized section and content) DATE CREATED AUTHOR AUTHOR'S ORGANIZ ATION 11/30/2023 [facility] ([place] DATE CREATED AUTHOR AUTHOR'S ORGANIZ ATION 12/12/2023 [facility] DATE CREATED AUTHOR AUTHOR'S ORGANIZ ATION 12/20/2023 [facility] Source Comments (unrecognize d section and content) In the event this informatio n is protected by the Federal Confidentiality of Alcohol and Drug Abuse Patient Records regulations: The Federal rules restrict any use of the information to criminally investigate or prosecute any alcohol or drug abuse patient.[facility] event this information is protected by the Federal Confidentiality of Alcohol and Drug Abuse Patient Records regulations: The Federal rules restrict any use of the information to criminally investigate or prosecute any alcohol or drug abuse patient.[facility] CenterIn the event this information is protected by the Federal Confidentiality of Alcohol and Drug Abuse Patient Records regulations: The Federal rules restrict any use of the information to criminally investigate or prosecute any alcohol or drug abuse patient.[facility] CenterIn the event this information is protected by the Federal Confidentiality of Alcohol and Drug Abuse Patient Records regulations: The Federal rules restrict any use of the information to criminally investigate or prosecute any alcohol or drug abuse patient.[facility] CenterIn the event this information is protected by the Federal Confidentiality of Alcohol and Drug Abuse Patient Records regulations: The Federal rules restrict any use of the information to criminally investigate or prosecute any alcohol or drug abuse patient.[facility] CenterIn the event this information is protected by the Federal Confidentiality of Alcohol and Drug Abuse Patient Records regulations: The Federal rules restrict any use of the information to criminally investigate or prosecute any alcohol or drug abuse patient.[facility] CenterIn the event this information is protected by the Federal Confidentiality of Alcohol and Drug Abuse Patient Records regulations: The Federal rules restrict any use of the information to criminally investigate or prosecute any alcohol or drug abuse patient.[facility] CenterIn the event this information is protected by the Federal Confidentiality of Alcohol and Drug Abuse Patient Records regulations: The Federal rules restrict any use of the information to criminally investigate or prosecute any alcohol or drug abuse patient.[facility] CenterIn the event this information is protected by the Federal Confidentiality of Alcohol and Drug Abuse Patient Records regulations: The Federal rules restrict any use of the information to criminally investigate or prosecute any alcohol or drug abuse patient.[facility] CenterIn the event this information is protected by the Federal Confidentiality of Alcohol and Drug Abuse Patient Records regulations: The Federal rules restrict any use of the information to criminally investigate or prosecute any alcohol or drug abuse patient.[facility] CenterIn the event this information is protected by the Federal Confidentiality of Alcohol and Drug Abuse Patient Records regulations: The Federal rules restrict any use of the information to criminally investigate or prosecute any alcohol or drug abuse patient.[facility] CenterIn the event this information is protected by the Federal Confidentiality of Alcohol and Drug Abuse Patient Records regulations: The Federal rules restrict any use of the information to criminally investigate or prosecute any alcohol or drug abuse patient.[facility] CenterIn the event this information is protected by the Federal Confidentiality of Alcohol and Drug Abuse Patient Records regulations: The Federal rules restrict any use of the information to criminally investigate or prosecute any alcohol or drug abuse patient.[facility] CenterIn the event this information is protected by the Federal Confidentiality of Alcohol and Drug Abuse Patient Records regulations: The Federal rules restrict any use of the information to criminally investigate or prosecute any alcohol or drug abuse patient.[facility] CenterIn the event this information is protected by the Federal Confidentiality of Alcohol and Drug Abuse Patient Records regulations: The Federal rules restrict any use of the information to criminally investigate or prosecute any alcohol or drug abuse patient.[facility] CenterIn the event this information is protected by the Federal Confidentiality of Alcohol and Drug Abuse Patient Records regulations: The Federal rules restrict any use of the information to criminally investigate or prosecute any alcohol or drug abuse patient.[facility] the event this information is protected by the Federal Confidentiality of Alcohol and Drug Abuse Patient Records regulations: The Federal rules restrict any use of the information to criminally investigate or prosecute any alcohol or drug abuse patient.[facility] CenterIn the event this information is protected by the Federal Confidentiality of Alcohol and Drug Abuse Patient Records regulations: The Federal rules restrict any use of the information to criminally investigate or prosecute any alcohol or drug abuse patient.[facility] CenterIn the event this information is protected by [...] or prosecute any alcohol or drug abuse patient.[facility] CenterIn the event this information is protected by the Federal Confidentiality of Alcohol and Drug Abuse Patient Records regulations: The Federal rules restrict any use of the information to criminally investigate or prosecute any alcohol or drug abuse patient.[facility] CenterIn the event this information is protected by the Federal Confidentiality of Alcohol and Drug Abuse Patient Records regulations: The Federal rules restrict any use of the information to criminally investigate or prosecute any alcohol or drug abuse patient.[facility] CenterIn the event this information is protected by the Federal Confidentiality of Alcohol and Drug Abuse Patient Records regulations: The Federal rules restrict any use of the information to criminally investigate or prosecute any alcohol or drug abuse patient.[facility] CenterIn the event this information is protected by the Federal Confidentiality of Alcohol and Drug Abuse Patient Records regulations: The Federal rules restrict any use of the information to criminally investigate or prosecute any alcohol or drug abuse patient.[facility] CenterIn the event this information is protected by the Federal Confidentiality of Alcohol and Drug Abuse Patient Records regulations: The Federal rules restrict any use of the information to criminally investigate or prosecute any alcohol or drug abuse patient.[facility] CenterIn the event this information is protected by the Federal Confidentiality of Alcohol and Drug Abuse Patient Records regulations: The Federal rules restrict any use of the information to criminally investigate or prosecute any alcohol or drug abuse patient.[facility] CenterIn the event this information is protected by the Federal Confidentiality of Alcohol and Drug Abuse Patient Records regulations: The Federal rules restrict any use of the information to criminally investigate or prosecute any alcohol or drug abuse patient.[facility] CenterIn the event this information is protected by the Federal Confidentiality of Alcohol and Drug Abuse Patient Records regulations: The Federal rules restrict any use of the information to criminally investigate or prosecute any alcohol or drug abuse patient.[facility] CenterIn the event this information is protected by the Federal Confidentiality of Alcohol and Drug Abuse Patient Records regulations: The Federal rules restrict any use of the information to criminally investigate or prosecute any alcohol or drug abuse patient.[facility] CenterIn the event this information is protected by the Federal Confidentiality of Alcohol and Drug Abuse Patient Records regulations: The Federal rules restrict any use of the information to criminally investigate or prosecute any alcohol or drug abuse patient.[facility] CenterIn the event this information is protected by the Federal Confidentiality of Alcohol and Drug Abuse Patient Records regulations: The Federal rules restrict any use of the information to criminally investigate or prosecute any alcohol or drug abuse patient.[facility] CenterIn the event this information is protected by the Federal Confidentiality of Alcohol and Drug Abuse Patient Records regulations: The Federal rules restrict any use of the information to criminally investigate or prosecute any alcohol or drug abuse patient.[facility] CenterIn the event this information is protected by the Federal Confidentiality of Alcohol and Drug Abuse Patient Records regulations: The Federal rules restrict any use of the information to criminally investigate or prosecute any alcohol or drug abuse patient.[facility] CenterIn the event this information is protected by the Federal Confidentiality of Alcohol and Drug Abuse Patient Records regulations: The Federal rules restrict any use of the information to criminally investigate or prosecute any alcohol or drug abuse patient.[facility] CenterIn the event this information is protected by the Federal Confidentiality of Alcohol and Drug Abuse Patient Records regulations: The Federal rules restrict any use of the information to criminally investigate or prosecute any alcohol or drug abuse patient.[facility] CenterIn the event this information is protected by the Federal Confidentiality of Alcohol and Drug Abuse Patient Records regulations: The Federal rules restrict any use of the information to criminally investigate or prosecute any alcohol or drug abuse patient.[facility] CenterIn the event this information is protected by the Federal Confidentiality of Alcohol and Drug Abuse Patient Records regulations: The Federal rules restrict any use of the information to criminally investigate or prosecute any alcohol or drug abuse patient.[facility] CenterIn the event this information is protected by the Federal Confidentiality of Alcohol and Drug Abuse Patient Records regulations: The Federal rules restrict any use of the information to criminally investigate or prosecute any alcohol or drug abuse patient.[facility] CenterIn the event this information is protected by the Federal Confidentiality of Alcohol and Drug Abuse Patient Records regulations: The Federal rules restrict any use of the information to criminally investigate or prosecute any alcohol or drug abuse patient.[facility] CenterIn the event this information is protected by the Federal Confidentiality of Alcohol and Drug Abuse Patient Records regulations: The Federal rules restrict any use of the information to criminally investigate or prosecute any alcohol or drug abuse patient.[facility] CenterIn the event this information is protected by the Federal Confidentiality of Alcohol and Drug Abuse Patient Records regulations: The Federal rules restrict any use of the information to criminally investigate or prosecute any alcohol or drug abuse patient.[facility] CenterIn the event this information is protected by the Federal Confidentiality of Alcohol and Drug Abuse Patient Records regulations: The Federal rules restrict any use of the information to criminally investigate or prosecute any alcohol or drug abuse patient.[facility] CenterIn the event this information is protected by the Federal Confidentiality of Alcohol and Drug Abuse Patient Records regulations: The Federal rules restrict any use of the information to criminally investigate or prosecute any alcohol or drug abuse patient.[facility] CenterIn the event this information is protected by the Federal Confidentiality of Alcohol and Drug Abuse Patient Records regulations: The Federal rules restrict any use of the information to criminally investigate or prosecute any alcohol or drug abuse patient.[facility] CenterIn the event this information is protected by the Federal Confidentiality of Alcohol and Drug Abuse Patient Records regulations: The Federal rules restrict any use of the information to criminally investigate or prosecute any alcohol or drug abuse patient.[facility] CenterIn the event this information is protected by the Federal Confidentiality of Alcohol and Drug Abuse Patient Records regulations: The Federal rules restrict any use of the information to criminally investigate or prosecute any alcohol or drug abuse patient.[facility] CenterIn the event this information is protected by the Federal Confidentiality of Alcohol and Drug Abuse Patient Records regulations: The Federal rules restrict any use of the information to criminally investigate or prosecute any alcohol or drug abuse patient.[facility] CenterIn the event this information is protected by the Federal Confidentiality of Alcohol and Drug Abuse Patient Records regulations: The Federal rules restrict any use of the information to criminally investigate or prosecute any alcohol or drug abuse patient.[facility] CenterIn the event this information is protected by the Federal Confidentiality of Alcohol and Drug Abuse Patient Records regulations: The Federal rules restrict any use of the information to criminally investigate or prosecute any alcohol or drug abuse patient.[facility] CenterIn the event this information is protected by the Federal Confidentiality of Alcohol and Drug Abuse Patient Records regulations: The Federal rules restrict any use of the information to criminally investigate or prosecute any alcohol or drug abuse patient.[facility] CenterIn the event this information is protected by the Federal Confidentiality of Alcohol and Drug Abuse Patient Records regulations: The Federal rules restrict any use of the information to criminally investigate or prosecute any alcohol or drug abuse patient.[facility] CenterIn the event this information is protected by the Federal Confidentiality of Alcohol and Drug Abuse Patient Records regulations: The Federal rules restrict any use of the information to criminally investigate or prosecute any alcohol or drug abuse patient.[facility] CenterIn the event this information is protected by the Federal Confidentiality of Alcohol and Drug Abuse Patient Records regulations: The Federal rules restrict any use of the information to criminally investigate or prosecute any alcohol or drug abuse patient.[facility] CenterIn the event this information is protected by the Federal Confidentiality of Alcohol and Drug Abuse Patient Records regulations: The Federal rules restrict any use of the information to criminally investigate or prosecute any alcohol or drug abuse patient.[facility] CenterIn the event this information is protected by the Federal Confidentiality of Alcohol and Drug Abuse Patient Records regulations: The Federal rules restrict any use of the information to criminally investigate or prosecute any alcohol or drug abuse patient.[facility] Reason for Visit (unrecogniz ed section and content) Reason Onset Date Comments Refill Request 04/06/2022 Reason Onset Date Comments Refill Request 04/25/2022 Reason Comments Left shoulder pain Reason Onset Date Comments Refill Request 05/09/2022 Reason Comments Consult Initial [facility] Pt Outr each Reason Comments Anxiety Reason Comments Consult [facility] Pt Outreach F/U Reason Comments Pain (Shoulder Pain) L Shoulder pain, sx 10/16 Reason Comments Future Appointment Reason Comments Appointment Reason Onset Date Comments Refill Request 06/27/2022 Reason Comments urinary symptoms Flank Pain Reason Comments ED Follow-up 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 CREDIT REVIEWER [address] [place] [address] Hao Butcher, PT [address] [place] [address] Referral ID Status Reason Start Date Expiration Date Visits Re quested Visits Authorized [id number] Closed 11/26/2022 11/25/2023 1 1 Reason Comments [...] Care Teams (unrecognized sec tion and content) Television And Radio Repairer Relationship Specialty Start Date End Date Yassine Link MD [address] [place] [address] PCP - General 02/15/07 Florin Patel MD [address] [place] [address] Referring General Surgery 07/25/18 Bartolo Gonzalez MD [address] [address] Referring General Surgery 09/24/19 Television And Radio Repairer Relationship Specialty Start Date End Date Yassine Link MD [address] [place], [place] [address] PCP - General 02/15/07 Florin Patel MD [address] [place] [address] Referring General Surgery 07/25/18 Bartolo Gonzalez MD [address] [facility] [address] [place] [address] Referring General Surgery 09/24/19 Television And Radio Repairer Relationship Specialty Start Date End Date Yassine Link MD [address] [place] [address] PCP - General 02/15/07 Florin Patel MD [address] [facility] [place] [address] Referring General Surgery 07/25/18 Bartolo Gonzalez MD [address] [facility] [address] [place] [address] Referring General Surgery 09/24/19 Television And Radio Repairer Relationship Specialty Start Date End Date Yassine Link MD [address] [place] [address] PCP - General 02/15/07 Florin Patel MD [address] [place] [place] [address] Referring General Surgery 07/25/18 Bartolo Gonzalez MD [address] [facility] [address] [place] [address] Referring General Surgery 09/24/19 Television And Radio Repairer Relationship Specialty Start Date End Date Yassine Link MD [address] [place] [address] PCP - General 02/15/07 Florin Patel MD [address] [place] [place] [address] Referring General Surgery 07/25/18 Bartolo Gonzalez MD [address] [facility] [address] [place] [address] Referring General Surgery 09/24/19 Television And Radio Repairer Relationship Specialty Start Date End Date Yassine Link MD [address] [place] [address] PCP - General 02/15/07 Florin Patel MD [address] [place] [place] [address] Referring General Surgery 07/25/18 Bartolo Gonzalez MD [address] [place] [address] Referring General Surgery 09/24/19 Television And Radio Repairer Relationship Specialty Start Date End Date Yassine Link MD [address] [place] [address] PCP - General 02/15/07 Florin Patel MD [address] [place] [place] [address] Referring General Surgery 07/25/18 Bartolo Gonzalez MD [address] [place] [address] Referring General Surgery 09/24/19 Television And Radio Repairer Relationship Specialty Start Date End Date Yassine Link MD [address] [place] [address] PCP - General 02/15/07 Florin Patel MD [address] [place] [place] [address] Referring General Surgery 07/25/18 Bartolo Gonzalez MD [address] [place] [address] Referring General Surgery 09/24/19 Television And Radio Repairer Relationship Specialty Start Date End Date Yassine Link MD [address] [place] [address] PCP - General 02/15/07 Florin Patel MD [address] [place] [address] Referring General Surgery 07/25/18 Bartolo Gonzalez MD [address] [place] [address] Referring General Surgery 09/24/19 Television And Radio Repairer Relationship Specialty Start Date End Date Yassine Link MD [address] [place] [address] PCP - General 02/15/07 Florin Patel MD [address] [place] [place] [address] Referring General Surgery 07/25/18 Bartolo Gonzalez MD [address] [place] [address] Referring General Surgery 09/24/19 Television And Radio Repairer Relationship Specialty Start Date End Date Yassine Link MD [address] [place] [address] PCP - General 02/15/07 Florin Patel MD [address] [place] [address] Referring General Surgery 07/25/18 Bartolo Gonzalez MD [address] [place] [address] Referring General Surgery 09/24/19 Television And Radio Repairer Relationship Specialty Start Date End Date Yassine Link MD [address] [place] [address] PCP - General 02/15/07 Florin Patel MD [address] [place] [address] Referring General Surgery 07/25/18 Bartolo Gonzalez MD [address] [address] [place] [address] Referring General Surgery 09/24/19 Television And Radio Repairer Relationship Specialty Start Date End Date Yassine Link MD [address] [place] [address] PCP - General 02/15/07 Florin Patel MD [address] [place] [place] [address] Referring General Surgery 07/25/18 Bartolo Gonzalez MD [address] [place] [address] [place] [address] Referring General Surgery 09/24/19 Television And Radio Repairer Relationship Specialty Start Date End Date Yassine Link MD [address] [place] [address] PCP - General 02/15/07 Florin Patel MD [address] [place] [address] Referring General Surgery 07/25/18 Bartolo Gonzalez MD [address] [facility] [address] [place] [address] Referring General Surgery 09/24/19 Television And Radio Repairer Relationship Specialty Start Date End Date Yassine Link MD [address] [place] [address] PCP - General 02/15/07 Florin Patel MD [address] [place] [address] Referring General Surgery 07/25/18 Bartolo Gonzalez MD [address] [facility] [address] [place] [address] Referring General Surgery 09/24/19 Television And Radio Repairer Relationship Specialty Start Date End Date Yassine Link MD [address] [place] [address] PCP - General 02/15/07 Florin Patel MD [address] [place] [address] Referring General Surgery 07/25/18 Bartolo Gonzalez MD [address] [place] [facility] [address] [place] [address] Referring General Surgery 09/24/19 Television And Radio Repairer Relationship Specialty Start Date End Date Yassine Link MD [address] [place] [address] PCP - General 02/15/07 Florin Patel MD [address] [place] [address] Referring General Surgery 07/25/18 Bartolo Gonzalez MD [address] [facility] [address] [place] [address] Referring General Surgery 09/24/19 Television And Radio Repairer Relationship Specialty Start Date End Date Yassine Link MD [address] [place] [address] PCP - General 02/15/07 Florin Patel MD [address] [place] [address] Referring General Surgery 07/25/18 Bartolo Gonzalez MD [address] [place] [address] Referring General Surgery 09/24/19 Television And Radio Repairer Relationship Specialty Start Date End Date Yassine Link MD [address] [place] [address] PCP - General 02/15/07 Florin Patel MD [address] [place] [address] Referring General Surgery 07/25/18 Bartolo Gonzalez MD [address] [place] [address] Referring General Surgery 09/24/19 Television And Radio Repairer Relationship Specialty Start Date End Date Yassine Link MD [address] [place] [address] PCP - General 02/15/07 Florin Patel MD [address] [place] [address] Referring General Surgery 07/25/18 Bartolo Gonzalez MD [address] [place] [address] Referring General Surgery 09/24/19 Television [employer] Rep[employer]r Relationship Specialty Start Date End Date Yassine Link MD [address] [place] [address] PCP - General 02/15/07 Florin Patel MD [address] [place] [place] [address] Referring General Surgery 07/25/18 Bartolo Gonzalze MD [address] [facility] [address] [place] [address] Referring General Surgery 09/24/19 Television And Radio Repairer Relationship Specialty Start Date End Date Yassine Link MD [address] [place] [address] PCP - General 02/15/07 lForin Patel MD [address] [place] [place] [address] Referring General Surgery 07/25/18 Bartolo Gonzalez MD [address] [facility] [address] [place] [address] Referring General Surgery 09/24/19 Television And Radio Repairer Relationship Specialty Start Date End Date Yassine Link MD [address] [place] [address] PCP - General 02/15/07 Florin Patel MD [address] [place] [address] Referring General Surgery 07/25/18 Bartolo Gonzalez MD [address] [facility] [address] [place] [address] Referring General Surgery 09/24/19 Television And Radio Repairer Relationship Specialty Start Date End Date Yassine Link MD [address] [place] [address] PCP - General 02/15/07 Florin Patel MD [address] [place] [address] Referring General Surgery 07/25/18 Bartolo Gonzalez MD [address] [facility] [address] [place] [address] Referring General Surgery 09/24/19 Television And Radio Repairer Relationship Specialty Start Date End Date Yassine Link MD [address] [place] [address] PCP - General 02/15/07 Florin Patel MD [address] [place] [address] Referring General Surgery 07/25/18 Bartolo Gonzalez MD [address] [facility] [address] [place] [address] Referring General Surgery 09/24/19 Television And Radio Repairer Relationship Specialty Start Date End Date Yassine Link MD [address] [facility] [place] [address] PCP - General 02/15/07 Florin Patel MD [address] [place] [address] Referring General Surgery 07/25/18 Bartolo Gonzalez MD [address] [facility] [address] [place] [address] Referring General Surgery 09/24/19 Television And Radio Repairer Relationship Specialty Start Date End Date Yassine Link MD [address] [facility] [place] [address] PCP - General 02/15/07 Florin Patel MD [address] [place] [address] Referring General Surgery 07/25/18 Bartolo Gonzalez MD [address] [facility] [address] [place] [address] Referring General Surgery 09/24/19 Television And Radio Repairer Relationship Specialty Start Date End Date Yassine Link MD [address] [place] [address] PCP - General 02/15/07 Florin Patel MD [address] [place] [address] Referring General Surgery 07/25/18 Bartolo Gonzalez MD [address] [facility] [address] [place] [address] Referring General Surgery 09/24/19 Television And Radio Repairer Relationship Specialty Start Date End Date Yassine Link MD [address] [place] [address] PCP - General 02/15/07 Florin Patel MD [address] [place] [address] Referring General Surgery 07/25/18 Bartolo Gonzalez MD [address] [place] [address] Referring General Surgery 09/24/19 Television And Radio Repairer Relationship Specialty Start Date End Date Yassine Link MD [address] [place] [address] PCP - General 02/15/07 Florin Patel MD [address] [place] [address] Referring General Surgery 07/25/18 Bartolo Gonzalez MD [address] [address] Referring General Surgery 09/24/19 Television And Radio Repairer Relationship Specialty Start Date End Date Yassine Link MD [address] [place], [place] [id number] PCP - General 02/15/07 Florin Patel MD [address] [place] [place], [place] [id number] Referring General Surgery 07/25/18 Bartolo Gonzalez MD [address] [id number] Referring General Surgery 09/24/19 FOR RECORDS PERTAINING [...] BE BASED ON THE PRIMARY CLINICAL RECORDS. [facility]. provides no warranty or guarantee of the accuracy or completeness of information in this document.
--- NOTE | 2023-12-23 15:42 | EX.ED.DYSGE1 ---
HPI <ADDY العراقي - Last Filed: 12/23/23 15:57> History of Present Illness Chief Complaint: Wound Check Narrative Narrative: Patient is a 38-year-old female who is returning to the emergency department for reevaluation for a wound check of a pilonidal cyst surgery. Patient had surgery on December 20, 2023, patient was seen here yesterday for pain. Today, the patient states the pain is still there and she is also here for dressing change. Patient states there is some drainage that is foul-smelling. Patient surgeon is Dr. Henry, her next surgical appointment is in 2 days where she is supposed to receive a new dressing and reevaluation. Patient does have prescriptions for oxycodone. PFSH <ADDY العراقي - Last Filed: 12/23/23 15:57> [facility] Medical History Anxiety Depression GERD (gastroesophageal reflux disease) H/O thoracic outlet syndrome IBS (irritable bowel syndrome) Left shoulder strain PTSD (post-traumatic stress disorder) Thoracic outlet syndrome Home Medications doxycycline monohydrate 100 mg capsule 100 mg PO BID #14 CAPSULES 11/19/23 [Rx Last Taken Unknown] estradiol 1 mg tablet 1 mg PO DAILY 11/19/23 [History Last Taken 11/19/23] estradiol 2 mg tablet 2 mg PO DAILY 11/19/23 [History Last Taken 11/19/23] hydrocodone-acetaminophen 5-325mg 5mg-325mg 1 tab PO Q4H PRN PRN Pain 1 day #4 TABLETS 11/19/23 [Rx Last Taken Unknown] sulfamethoxazole 800 mg-trimethoprim 160 mg tablet (Bactrim DS) 1 tab PO BID 10 days #20 tabs 12/08/23 [Rx Last Taken Unknown] hydrocodone-acetaminophen 5-325mg 5mg-325mg 1 tab PO Q6H PRN pain 5 days #20 tabs 12/22/23 [Rx Last Taken Unknown] Allergy/AdvReac Type Severity Reaction Status Date / Time benzonatate Allergy Rash Verified 12/23/23 15:11 [From Tessalon Perles] diazepam [From Valium] Allergy Hives Verified 12/23/23 15:11 morphine Allergy Itching Verified 12/23/23 15:11 Penicillins Allergy Hives Verified 12/23/23 15:11 venom-honey bee Allergy Hives Verified 12/23/23 15:11 [bee venom (honey bee)] Family History Father Heart disease Hypertension Myocardial infarction Mother Cancer lung, throat and Lupus Surgical History History of esophagogastroduodenoscopy (EGD) History of left oophorectomy S/P breast biopsy S/P colonoscopy Status post hysterectomy Social History household members: none Smoking Status: Current every day smoker tobacco type: cigarettes alcohol intake: current alcohol intake frequency: holidays/special occasions only substance use type: marijuana caffeine: Yes what type of physical activity do you participate in: none seatbelt use: sometimes do you feel safe at home: Yes additional social history: Boyfriend-Sha- Works at [employer] Patient works at [employer] ROS <ADDY العراقي - Last Filed: 12/23/23 15:57> ROS ED ROS Narrative Constitutional: Negative for fever, chills, weight loss, weakness Eyes: Negative for vision loss, vision change, double vision ENT: Negative for any sore throat, ear pain, congestion Cardiovascular: Negative for any chest pain, tightness, palpitations Respiratory: Negative for any cough, sputum production, hemoptysis, dyspnea, dyspnea on exertion, orthopnea Gastrointestinal: Negative for any abdominal pain, nausea, vomiting, diarrhea, constipation, blood in stool, blood in vomit : Negative for any urinary frequency, dysuria, retention, blood in urine Muscle skeletal: Negative for any myalgias, arthralgias, neck pain, back pain Neurological: Negative for any headache, syncope, paresthesias, dizziness Skin: Negative for any rashes, lumps, itching, abrasions, lacerations. Positive for surgical incision to the pilonidal area Psychiatric: Negative for any depression, anxiety, stress, suicidal ideation, homicidal ideation Hematologic: Negative for any easy bruising, excessive bruising, easy bleeding Allergies: Negative for any eczema, hives, rash EXAM <ADDY العراقي - Last Filed: 12/23/23 15:57> Physical Exam Narrative Exam Narrative: Vital signs reviewed. HEET: Head normocephalic atraumatic, TMs clear bilaterally. Posterior pharynx is clear, moist mucous membranes. Nares clear bilaterally. Neck: Supple with no lymphadenopathy or tenderness. No signs of meningismus. Cardiac: Regular rate and rhythm no murmurs gallops or rubs, equal peripheral pulses bilaterally. Respiratory: Lungs clear to auscultation bilaterally. No chest tenderness. Abdomen: Soft, nontender, nondistended. No abdominal bruit or pulsatile masses. No hepatosplenomegaly Extremities: No peripheral edema, no signs of gross trauma or deformity. Active full range of motion of all extremities. Neuro: Cranial nerves II through XII intact, no focal neurological deficits. Skin: Clean dry and intact with no rash, purpura, petechiae, vesicles or pustules. Backs/flank: No CVA tenderness, no midline spinal tenderness, no deformity. Psych: Normal mood and affect. No SI, HI or acute psychosis. Surgical sight: Surgical site does have some light brown drainage, there is foul-smelling odor, however there is no significant redness, there is no yellow or green drainage. The 4 x 4 closest to the wound is intact, there is no significant erythema or edema. Minimal pain on palpation. Const Vital Signs: 12/23/23 15:11 12/23/23 15:59 Temperature 98.1 F 98.1 F Temperature Source Temporal Temporal Pulse Rate 84 84 Respiratory Rate 18 18 Blood Pressure 112/91 H 112/91 H Blood Pressure Mean 98 98 Pulse Ox 100 100 Oxygen Delivery Method Room Air Room Air <Dr. Ammon Valdez MD - Last Filed: 12/23/23 16:17> Physical Exam Const Vital Signs: 12/23/23 15:11 12/23/23 15:59 Temperature 98.1 F 98.1 F Temperature Source Temporal Temporal Pulse Rate 84 84 Respiratory Rate 18 18 Blood Pressure 112/91 H 112/91 H Blood Pressure Mean 98 98 Pulse Ox 100 100 Oxygen Delivery Method Room Air Room Air MDM <ADDY العراقي - Last Filed: 12/23/23 15:57> MDM Treatment and Re-Evaluation :: Patient appears generally well, patient appears nontoxic, vital signs are stable. Presenting to the emergency department for reevaluation of her surgical incision from a pilonidal cyst surgery that occurred on 12/20/2023. Differential diagnosis includes postsurgical infection, abscess formation, proper healing of incision site. On my physical examination, there is no evidence of any deep tissue infection or abscess formation. The wound will be cleansed, new dressing applied. Patient will need to follow-up outpatient with her surgical team in the next 2 days as scheduled. Patient will be discharged from at this time, is no evidence of deep tissue infection, patient seems to be healing properly, patient has pain medicine at home. Stable for discharge the emergency department, will have a brand-new dressing placed. Patient understands the importance of follow-up in 2 days. All questions were answered, she is instructed return for any worsening symptoms. <Dr. Ammon Valdez MD - Last Filed: 12/23/23 16:17> [facility] MDM Narrative Medical decision making narrative: I have personally performed a face to face assessment of the patient and have reviewed the PAULINE Note. I performed a substantive portion of the visit including all aspects of the following. My lo findings include: History: Patient presents again with some odor to the wound and still having pain. No nausea vomiting fevers or chills. She contacted her surgeon who recommend she come in here for dressing change. She has an appointment on Sunday with her for follow-up. Surgery was . No dressing changes since then. Exam: Patient awake alert very nontoxic in no acute distress. Abdomen is benign. Area of the wound the wound is noninflamed. The outer dressing was removed which was somewhat moist and had a strong odor. She states as soon as this was removed the pain went away. The odor is gone. The wound edges look very healthy. No sign of infection. I do not think we need to initiate antibiotics. Dressing change will be done Medical Decision Making: Dressing change will be done. She will follow-up with her surgeon as scheduled on Sunday. Discharge Plan Triage Chief Complaint: Wound Check ED Midlevel Provider: Joaquin Torres ED Provider: Ammon Valdez Dx/Rx/DC Orders Clinical Impression: Visit for wound check, Wound discharge Instructions: ED Wound Care After Packing ... Prescriptions: No Action estradiol 1 mg tablet 1 mg PO DAILY estradiol 2 mg tablet 2 mg PO DAILY doxycycline monohydrate 100 mg capsule 100 mg PO BID Qty: 14 0RF hydrocodone-acetaminophen [hydrocodone-acetaminophen] 5-325 mg tablet 1 tab PO Q4H PRN PRN (Reason: Pain) 1 Days Qty: 4 0RF sulfamethoxazole-trimethoprim [Bactrim DS] 800-160 mg tablet 1 tab PO BID 10 Days Qty: 20 0RF hydrocodone-acetaminophen 5-325 mg tablet 1 tab PO Q6H PRN (Reason: pain) 5 Days Qty: 20 0RF Primary Care Provider: Yassine Link Referrals: Gertrude Henry MD [Med Staff - Active Staff] - Yassine Link MD [Primary Care Provider] - Disposition Disposition: Home, Self Care Discharge Date/Time: 12/23/23 16:02
[2023-12-23 15:59] VITALS: BP 112/91; PULSE 84; RESP 18; TEMP 36.7; O2SAT 100
== END 2023-12-23 16:02 | disposition home or self-care (01) ==
PROVIDERS: Emergency Provider Emergency Medicine; PCP Internal Medicine; Visit Provider Emergency Medicine
DX: Z51.89 Encounter for other specified aftercare (principal); F12.90 Cannabis use, unspecified, uncomplicated; F17.210 Nicotine dependence, cigarettes, uncomplicated
CPT/HCPCS: 99282

== ENCOUNTER 2024-01-05 09:57 | Emergency (ER) | payer MEDICAID, SELFPAY ==
[2024-01-05 09:57] VITALS: BP 110/70; PULSE 91; RESP 16; TEMP 36.4; O2SAT 99; BMI 32.3
--- OUTSIDE RECORDS SUMMARY | 2024-01-05 10:11 | XMS RPT_ITS | CCD ---
Author Name Unknown Address [address] [place] [address] Organization [facility] Care Team Providers Care Preflight Inspector Name Role Phone Yassine Link MD Primary Care Provider [phone] Florin Patel MD Unavailable Bartolo Gonzalez MD Unavailable PRABHAKAR SAMANIEGO, DR HURT Primary Care Physician PRABHAKAR SAMANIEGO, DR HURT Primary Care Unavailwilda CUNNINGHAM MD, ROMELIA Cox Attending Unavailable NORRIS SAMANIEGO, ROMELIA Cox Attending Unavailable PRABHAKAR SAMANIEGO, DR HURT Primary Care Unavailwilda REAVES MD, MAYI Attending Unavailable PRABHAKAR SAMANIEGO, DR HURT Primary Care Unavailwilda Link MD, Yassine Hernandez Primary Care Provider [phone] Florin Patel MD Unavailable Bartolo Gonzalez MD Unavailable GERTRUDE HENRY Attending Unavailable GERTRUDE HENRY Admitting Unavailable YASSINE LINK Primary Care Unavailable GERTRUDE HENRY Attending Unavailable YASSINE LINK Primary Care Unavailable GERMAN PIRES Attending Unavailable YASSINE LINK Primary Care Unavailable TAYLOR ESPARZA Attending Unavailable YASSINE LINK Primary Care Unavailable YASSINE LINK Referring Unavailable YASSINE LINK Primary Care Unavailable YASSINE LINK Attending Unavailable YASSINE LINK Primary Care Unavailable YASSINE LINK Attending Unavailable GERMAN PIRES Attending Unavailable YASSINE LINK Primary Care Unavailable LINK, STEVIE Primary Care Unavailable LINK, STEVIE Attending Unavailable LINK, STEVIE Primary Care Unavailable LINK, STEVIE Attending Unavailable ESTEVAN BLACKMAN Referring Unavailable LINK, STEVIE Primary Care Unavailable BEATRICE ROBERTS Attending Unavailable ESTEVAN BLACKMAN Referring Unavailable LINK, TSEVIE Primary Care Unavailable GERMAN PIRES Attending Unavailable LINK, STEVIE Primary Care Unavailable GERTRUDE HENRY Referring Unavailable GERTRUDE HENRY Attending Unavailable LINK, STEVIE Primary Care Unavailable LINK, STEVIE Primary Care Unavailable LINK, STEVIE Attending Unavailable Allergies Allergy Classification Reported Allergen(s) Allergy Type Date of Onset Reaction(s) Facility (20 sources) benzonatate; Translations: [benzonatate] Drug Allergy 7 [facility] Work Phone: (20 sources) diazePAM; Translations: [DIAZEPAM] Drug Allergy 5 [facility] Work Phone: (20 sources) Morphine; Translations: [morphine] Drug Allergy 4 [facility] (7 sources) Penicillins; Translations: [PENICILLINS] Propensity to adverse reactions to drug 1 Other: See Comments [facility] Work Phone: (20 sources) Bees; Translations: [BEES] Allergy to substance 1 Anaphylaxis [facility] Work Phone: (20 sources) Penicillins Propensity to adverse reactions to drug 1 Other: See Comments [facility] Work Phone: (1 source) Bee/Wasp/Ant venom Allergy to substance swelling [facility] (1 source) Penicillin; Translations: [penicillin] Drug Allergy [facility] Medications Current Medications Medication Drug Class(es) Dates [...] Translations: [Postoperative pain] Onset: 12-20-2023 Episodic Other nervous system disorders (1 source) Postoperative pain ; Translations: [Other acute postprocedural pain] 12-25-2023 Episodic Other non-traumatic joint disorders (3 sources) [...] source) History of right oophorectomy 05-10-2023 Episodic Residual codes; unclassified (1 source) Past history of procedure; Translations: [Other specified postprocedural states] 12-29-2023 Episodic Skin and subcutaneous tissue infections (4 sources) Cellulitis; Translations: [Cellulitis, unspecified] Onset: 11-21-2023 Episodic Substance-related disorders (20 sources) Tobacco user; Translations: [Nicotine dependence, unspecified, uncomplicated] Onset: 12-25-2006 12-25-2006 Chronic Past or Other Problems Problem Classification Problem Date Documented Date Episodic/Chronic Other non-traumatic joint disorders (16 sources) Shoulder pain; Translations: [Pain in right shoulder] Onset: 12-28-2022 Episodic Other non-traumatic joint disorders (11 sources) Pain in left shoulder; Translations: [Pain in joint, shoulder region] Onset: 12-28-2022 03-12-2023 Episodic Residual codes; unclassified (11 sources) Noncompliance with medication regimen; Translations: [Non-adherence to medical treatment] Onset: 03-12-2023 Episodic Spondylosis; intervertebral disc disorders; other back problems (7 sources) Acute thoracic back pain; Translations: [Dorsalgia, unspecified] Onset: 02-13-2023 Episodic Sprains and strains (1 source) Sprain of unspecified ligament of left ankle, subsequent encounter; Translations: [Sprain of left ankle, unspecified ligament, subsequent encounter] Onset: 09-21-2023 Episodic Results Test Name Value Interpretation Reference Range Facil ity Vital Signs Date Time Vital Sign Value Performing Clinician Facility 12-25-2023 11:17-0500 Body height 152.4 cm Gertrude Henry MD Work Phone: [facility] 12-25-2023 11:17-0500 Body temperature 97.81 [degF] Gerrtude Henry MD Work Phone: [facility] 12-25-2023 11:17-0500 Body weight 73.48 kg Gertrude Henry MD Work Phone: [facility] 12-25-2023 11:17-0500 Diastolic blood pressure 78 mm[Hg] Gertrude Henry MD Work Phone: [facility] 12-25-2023 11:17-0500 Heart rate 82 /min Gertrude Henry MD Work Phone: [facility] 12-25-2023 11:17-0500 SaO2% (BldA) [Mass fraction] 97 % Gertrude Henry MD Work Phone: [facility] 12-25-2023 11:17-0500 Systolic blood pressure 118 mm[Hg] Gertrude Henry MD Work Phone: [facility] 11-21-2023 15:46-0500 Body height 152.4 cm MAYI REAVES MD [facility] 11-21-2023 15:46-0500 Body temperature 98.24 [degF] MAYI REAVES MD [facility] 11-21-2023 15:46-0500 Body weight 72.7 kg MAYI REAVES MD [facility] 11-21-2023 15:46-0500 Diastolic Blood Pressure Non-Invasive 73 mm[Hg] MAYI REAVES MD [facility] 11-21-2023 15:46-0500 Heart rate 86 /min MAYI REAVES MD [facility] 11-21-2023 15:46-0500 Respiratory rate 18 /min MAYI REAVES MD [facility] 11-21-2023 15:46-0500 Systolic Blood Pressure Non-Invasive 119 mm[Hg] MAYI REAVES MD [facility] 05-28-2023 19:18-0400 Body weight 75.75 kg Yassine Link MD Work Phone: [facility] 05-28-2023 19:18-0400 Diastolic blood pressure 62 mm[Hg] Yassine Link MD Work Phone: [facility] 05-28-2023 19:18-0400 Heart rate 80 /min Yassine Link MD Work Phone: [facility] 05-28-2023 19:18-0400 Respiratory rate 16 /min Yassine Link MD Work Phone: [facility] 05-28-2023 19:18-0400 Systolic blood pressure 96 mm[Hg] Yassine Link MD Work Phone: [facility] 12-28-2022 11:41-0500 Body temperature 97.3 [degF] Yassine Link MD Work Phone: [facility] 12-28-2022 11:41-0500 Body weight 78.47 kg Yassine Link MD Work Phone: [facility] 12-28-2022 11:41-0500 Diastolic blood pressure 68 mm[Hg] Yassine Link MD Work Phone: [facility] 12-28-2022 11:41-0500 Heart rate 80 /min Yassine Link MD Work Phone: [facility] 12-28-2022 11:41-0500 Respiratory rate 16 /min Yassine Link MD Work Phone: [facility] 12-28-2022 11:41-0500 Systolic blood pressure 116 mm[Hg] Yassine Link MD Work Phone: [facility] 12-01-2022 16:23-0500 Body temperature 97.81 [degF] Yassine Link MD Work Phone: [facility] 12-01-2022 16:23-0500 Body weight 78.02 kg Yassine Link MD Work Phone: [facility] 12-01-2022 16:23-0500 Diastolic blood pressure 72 mm[Hg] Yassine Link MD Work Phone: [facility] 12-01-2022 16:23-0500 Heart rate 87 /min Yassine Link MD Work Phone: [facility] 12-01-2022 16:23-0500 Respiratory rate 16 /min Yassine Link MD Work Phone: [facility] 12-01-2022 16:23-0500 SaO2% (BldA) [Mass fraction] 99 % Yassien Link MD Work Phone: [facility] 12-01-2022 16:23-0500 Systolic blood pressure 112 mm[Hg] Yassine Link MD Work Phone: [facility] 11-03-2022 10:19-0500 Body temperature 97.81 [degF] German Pires AUDIO VIDEO TECH.NETWORK ADMINISTRATOR Work Phone: [facility] 11-03-2022 10:19-0500 Body weight 75.75 kg German Pires AUDIO VIDEO TECH.NETWORK ADMINISTRATOR Work Phone: [facility] 11-03-2022 10:19-0500 Diastolic blood pressure 60 mm[Hg] German Pires AUDIO VIDEO TECH.NETWORK ADMINISTRATOR Work Phone: [facility] 11-03-2022 10:19-0500 Heart rate 85 /min German Pires AUDIO VIDEO TECH.NETWORK ADMINISTRATOR Work Phone: [facility] 11-03-2022 10:19-0500 SaO2% (BldA) [Mass fraction] 100 % German Pires AUDIO VIDEO TECH.NETWORK ADMINISTRATOR Work Phone: [facility] 11-03-2022 10:19-0500 Systolic blood pressure 118 mm[Hg] German Pires AUDIO VIDEO TECH.NETWORK ADMINISTRATOR Work Phone: [facility] 10-05-2022 11:39-0500 Body temperature 97.7 [degF] Yassine Link MD Work Phone: [facility] 10-05-2022 11:39-0500 Body weight 81.19 kg Yassine Link MD Work Phone: [facility] 10-05-2022 11:39-0500 Diastolic blood pressure 70 mm[Hg] Yassine Link MD Work Phone: [facility] 10-05-2022 11:39-0500 Heart rate 72 /min Yassine Link MD Work Phone: [facility] 10-05-2022 11:39-0500 Respiratory rate 18 /min Yassine Link MD Work Phone: [facility] 10-05-2022 11:39-0500 Systolic blood pressure 120 mm[Hg] Yassine Link MD Work Phone: [facility] 09-26-2022 10:32-0400 Body temperature 97.2 [degF] Yassine Link MD Work Phone: [facility] 09-26-2022 10:32-0400 Body weight 76.66 kg Yassine Link MD Work Phone: [facility] 09-26-2022 10:32-0400 Diastolic blood pressure 68 mm[Hg] Yassine Link MD Work Phone: [facility] 09-26-2022 10:32-0400 Heart rate 84 /min Yassine Link MD Work Phone: [facility] 09-26-2022 10:32-0400 Respiratory rate 20 /min Yassine Link MD Work Phone: [facility] 09-26-2022 10:32-0400 Systolic blood pressure 124 mm[Hg] Yassine Link MD Work Phone: [facility] 08-31-2022 09:09-0400 Heart rate 85 /min Izabela Kat AUDIO VIDEO TECH.FINISHING AND SHIPPING SUPERVISOR Work Phone: [facility] 08-31-2022 09:09-0400 Respiratory rate 16 /min Izabela Stephens AUDIO VIDEO TECH.FINISHING AND SHIPPING SUPERVISOR Work Phone: [facility] 08-31-2022 09:09-0400 SaO2% (BldA) [Mass fraction] 98 % Izabela Kat AUDIO VIDEO TECH.FINISHING AND SHIPPING SUPERVISOR Work Phone: [facility] 07-28-2022 17:07-0400 Body temperature 97.3 [degF] Yassine Link MD Work Phone: [facility] 07-28-2022 17:07-0400 Body weight 77.11 kg Yassine Link MD Work Phone: [facility] 07-28-2022 17:07-0400 Diastolic blood pressure 68 mm[Hg] Yassine Link MD Work Phone: [facility] 07-28-2022 17:07-0400 Heart rate 80 /min Yassine Link MD Work Phone: [facility] 07-28-2022 17:07-0400 Respiratory rate 20 /min Yassine Link MD Work Phone: [facility] 07-28-2022 17:07-0400 SaO2% (BldA) [Mass fraction] 99 % Yassine Link MD Work Phone: [facility] 07-28-2022 17:07-0400 Systolic blood pressure 112 mm[Hg] Yassine Link MD Work Phone: [facility] 06-19-2022 11:43-0400 Body weight 77.11 kg German Pires AUDIO VIDEO TECH.NETWORK ADMINISTRATOR Work Phone: [facility] 06-19-2022 11:43-0400 Diastolic blood pressure 78 mm[Hg] German Pires AUDIO VIDEO TECH.NETWORK ADMINISTRATOR Work Phone: [facility] 06-19-2022 11:43-0400 Heart rate 84 /min German Pires AUDIO VIDEO TECH.NETWORK ADMINISTRATOR Work Phone: [facility] 06-19-2022 11:43-0400 Respiratory rate 16 /min German Pires AUDIO VIDEO TECH.NETWORK ADMINISTRATOR Work Phone: [facility] 06-19-2022 11:43-0400 Systolic blood pressure 118 mm[Hg] German Pires AUDIO VIDEO TECH.NETWORK ADMINISTRATOR Work Phone: [facility] 05-23-2022 11:44-0400 Body temperature 97.2 [degF] Yassine Link MD Work Phone: [facility] 05-23-2022 11:44-0400 Body weight 78.02 kg Yassine Link MD Work Phone: [facility] 05-23-2022 11:44-0400 Diastolic blood pressure 70 mm[Hg] Yassine Link MD Work Phone: [facility] 05-23-2022 11:44-0400 Heart rate 72 /min Yassine Link MD Work Phone: [facility] 05-23-2022 11:44-0400 Respiratory rate 16 /min Yassine Link MD Work Phone: [facility] 05-23-2022 11:44-0400 Systolic blood pressure 116 mm[Hg] Yassine Link MD Work Phone: [facility] 05-04-2022 13:52-0400 Body temperature 97.39 [degF] Yassine Link MD Work Phone: [facility] 05-04-2022 13:52-0400 Body weight 79.2 kg Yassine Link MD Work Phone: [facility] 05-04-2022 13:52-0400 Diastolic blood pressure 70 mm[Hg] Yassine Link MD Work Phone: [facility] 05-04-2022 13:52-0400 Heart rate 76 /min Yassine Link MD Work Phone: [facility] 05-04-2022 13:52-0400 Respiratory rate 16 /min Yassine Link MD Work Phone: [facility] 05-04-2022 13:52-0400 Systolic blood pressure 112 mm[Hg] Yassine Link MD Work Phone: [facility] 02-24-2022 09:58-0400 Body weight 77.56 kg German Pires AUDIO VIDEO TECH.NETWORK ADMINISTRATOR Work Phone: [facility] 02-24-2022 09:58-0400 Diastolic blood pressure 72 mm[Hg] German Pires AUDIO VIDEO TECH.NETWORK ADMINISTRATOR Work Phone: [facility] 02-24-2022 09:58-0400 Heart rate 76 /min German Pires AUDIO VIDEO TECH.NETWORK ADMINISTRATOR Work Phone: [facility] 02-24-2022 09:58-0400 Respiratory rate 16 /min German Pires AUDIO VIDEO TECH.NETWORK ADMINISTRATOR Work Phone: [facility] 02-24-2022 09:58-0400 Systolic blood pressure 102 mm[Hg] German Pires AUDIO VIDEO TECH.NETWORK ADMINISTRATOR Work Phone: [facility] Encounters Encounter Date Encounter Type Care Provider Facility Start: 12-25-2023 End: 12-25-2023 ambulatory GERTRUDE HENRY Facility:[facility] Start: 12-25-2023 End: 12-25-2023 Patient encounter procedure Gertrude Henry MD Work Phone: General Surgery Procedures Date Procedure Procedure Detail Performing Clinician Start: 07-28-2022 Urnls dip stick/tabl et rgnt auto w/o microscopy Yassine Link MD Work Phone: Start: 08-23-2021 Adult depression scr eening assessment German Pires AUDIO VIDEO TECH.NETWORK ADMINISTRATOR Work Phone: Colonoscopy MAYI REAVES MD Hysterectomy MAYI REAVES MD Shoulder region stru cture (body structure) MAYI REAVES MD Specimen from breast obtained by biopsy (specimen) MAYI REAVES MD Plan of Treatment Date Care Activity Detail Author Start: 12-11-2024 Annual PCP Team News Clerk luis alberto Disease Visit Annual PCP Team Chronic Disease Visit [facility] Start: 10-01-2024 Annual PCP Team News Clerk luis alberto Disease Visit Annual PCP Team Chronic Disease Visit [facility] Start: 05-28-2024 ANNUAL PCP TEAM WIRELESS RETAIL MANAGER LUIS ALBERTO DISEASE VISIT ANNUAL PCP TEAM CHRONIC DISEASE VISIT [facility] Start: 03-12-2024 ANNUAL PCP TEAM WIRELESS RETAIL MANAGER LUIS ALBERTO DISEASE VISIT ANNUAL PCP TEAM CHRONIC DISEASE VISIT [facility] Start: 02-21-2024 ANNUAL PCP TEAM WIRELESS RETAIL MANAGER LUIS ALBERTO DISEASE VISIT ANNUAL PCP TEAM CHRONIC DISEASE VISIT [facility] Start: 12-28-2023 ANNUAL PCP TEAM WIRELESS RETAIL MANAGER LUIS ALBERTO DISEASE VISIT ANNUAL PCP TEAM CHRONIC DISEASE VISIT [facility] Start: 12-01-2023 ANNUAL PCP TEAM WIRELESS RETAIL MANAGER LUIS ALBERTO DISEASE VISIT ANNUAL PCP TEAM CHRONIC DISEASE VISIT [facility] Start: 11-09-2023 ANNUAL PCP TEAM WIRELESS RETAIL MANAGER LUIS ALBERTO DISEASE VISIT ANNUAL PCP TEAM CHRONIC DISEASE VISIT [facility] Start: 10-05-2023 ANNUAL PCP TEAM WIRELESS RETAIL MANAGER LUIS ALBERTO DISEASE VISIT ANNUAL PCP TEAM CHRONIC DISEASE VISIT [facility] Start: 09-26-2023 ANNUAL PCP TEAM WIRELESS RETAIL MANAGER LUIS ALBERTO DISEASE VISIT ANNUAL PCP TEAM CHRONIC DISEASE VISIT [facility] Start: 07-28-2023 ANNUAL PCP TEAM WIRELESS RETAIL MANAGER LUIS ALBERTO DISEASE VISIT ANNUAL PCP TEAM CHRONIC DISEASE VISIT [facility] Start: 07-27-2023 Influenza vaccination [facility] Start: 05-25-2023 Influenza vaccination INFLUENZA (#1) [facility] Immunizations Immunization Date Immunization Notes Care Provider Fa cility 01-17-2019 influenza virus vaccine, unspecified formulation Yassine Link MD Work Phone: [facility] 09-24-2012 tetanus toxoid, redu yuri diphtheria toxoid, and acellular pertussis vaccine, adsorbed German Pires AUDIO VIDEO TECH.NETWORK ADMINISTRATOR Work Phone: [facility] Work Phone: Payers Date Payer Category Payer Medicaid [id number] 2022 Unknown [id number] 2020 Medicaid [employer] [id number] 2020-Present [phone] [address] [place] [address] Medicaid [id number] 2020 Medicaid [id number] 1984 Unknown [id number] 1984 Unknown [id number] 1984 Unknown [id number] Social History Date Type Detail Facility Start: 10-26-1992 End: 07-28-2022 Tobacco smoking status IDIS Smokes tobacco daily [facility] Work Phone: Start: 10-26-1992 History of tobacco use Cigarette Smoker [facility] Start: 02-24-2022 End: 12-25-2023 Alcohol intake Current non-drinker of alcohol (finding) [facility] Start: 08-23-2021 End: 11-09-2022 History SDOH Alcohol Frequency 1 [facility] Start: 08-23-2021 History SDOH Alcohol Std Drinks 98 [facility] Start: 08-23-2021 History SDOH Social Connections Phone 5 [facility] Start: 08-23-2021 End: 11-09-2022 History SDOH Social Connections Membership 2 [facility] Start: 08-23-2021 End: 11-09-2022 History SDOH Social Connections Living 3 [facility] Start: 08-23-2021 End: 11-09-2022 History SDOH Stress 4 [facility] Start: 08-23-2021 Education 9 [facility] Start: 09-01-2020 End: 07-28-2022 Tobacco Comment started age 17 [facility] Start: 1985 Sex Assigned At Female [facility] Start: 02-14-2022 End: 10-05-2022 Exposure to SARS-CoV-2 (event) Not sure [facility] Work Phone: Start: 09-08-2021 End: 10-01-2023 Cigarettes smoked current (pack per day) - Reported 1 [facility] Start: 09-08-2021 End: 07-28-2022 Tobacco use and exposure Smokeless tobacco non-user [facility] Work Phone: Start: 09-26-2022 End: 11-09-2022 History SDOH Alcohol Std Drinks 0 [facility] Start: 11-09-2022 End: 10-01-2023 Social connection and isolation panel [facility] Do you belong to any clubs or organizations such as gnosticist groups, unions, fraternal or athletic groups, or school groups? No [facility] Are you now , , , , never or living with a partner? [facility] How often to you hav e a drink containing alcohol? Never [facility] How many standard dr inks containing alcohol do you have on a typical day? Patient does not drink [facility] How hard is it for y ou to pay for the very basics like food, housing, medical care, and heating Somewhat hard [facility] Do you feel stress - tense, restless, nervous, or anxious, or unable to sleep at night because your mind is troubled all the time - these days [OSQ] Rather much [facility] (I/We) worried maria eugenia er (my/our) food would run out before (I/we) got money to buy more. Often true [facility] In the past 12 month s, was there a time when you were not able to pay the mortgage or rent on time? Yes [facility] Start: 07-08-2021 Gender identity Identifies as female gender (finding) [facility] Start: 07-08-2021 Sexual orientation Heterosexual (finding) [facility] Start: 10-12-2022 Tobacco smoking status Heavy tobacco smoker (finding) [facility] Sex Assigned At Sex [facility] Mental Status Date Assessment Result Facility 11-21-2023 Mental Status Orientation Oriented x 4 [facility] Clinical Notes 12-13-2019 to 12-25-2023 Gertrude Henry MD - 12/25/2023 11:41 AM ESTTelephone Encounter - Anu Morin RN - 12/23/2023 2:22 PM Yassine Brunner MD - 10/01/2023 2:53 PM ESTPatient InstructionsPatient Instructions Note Date & Type Note Facility 12-25-2023 Note HNO ID: [id number] Author: GERTRUDE HENRY MD Service: ? Author Type: Physician Type: Progress Notes Filed: 12/29/2023 12:20 Note Text: FOLLOW UP VISIT NAME: Anne Chung [facility] NO.: [id number] DATE OF SERVICE: 12/25/2023 : 1985 REFERRING PHYSICIAN: Yassine Link MD Anne is status post IANDD of pilonidal cyst abscess done on 12/20/2023. She has a low pain threshold and was seen in the local ED and given additional pain medications. She requests more pain medications. I have told her that this will be the last amount that I prescribe for her. Dressing changes will be done by her friend who is an EGG PASTEURIZER. VITALS: Blood pressure 118/78, pulse 82, temperature 36.6 ?C (97.8 ?F), height 152.4 cm (5'), weight 73.5 kg (162 lb), last menstrual period 05/16/2015, SpO2 97%. On examination, wound has a base of fibrinous exudate, no surrounding erythema of the skin, opening is patent Assessment IMPRESSION: s/p IANDD of pilonidal cyst abscess PLAN: I have recommended dressings changes at least 2-3 times per day. Dressing may be soaked off in a tub for patient's comfort. I have prescribed her additional pain medications, but I have told patient that this will be the last amount and the patient acknowledges this. Follow up with me next week for wound check Diagnoses: (G89.18) Postoperative pain (primary encounter diagnosis) I have confirmed and edited as necessary, the PFSH and ROS obtained by others. Gertrude Henry MD [facility] 12-25-2023 History of Presen t illness Narrative FOLLOW UP VISIT NAME: Anne Chung [facility] NO.: [id number] DATE OF SERVICE: 12/25/2023 : 1985 REFERRING PHYSICIAN: Yassine Link MD Anne is status post I&D of pilonidal cyst abscess done on 12/20/2023. She has a low pain threshold and was seen in the local ED and given additional pain medications. She requests more pain medications. I have told her that this will be the last amount that I prescribe for her. Dressing changes will be done by her friend who is an EGG PASTEURIZER. VITALS: Blood pressure 118/78, pulse 82, temperature 36.6 C (97.8 F), height 152.4 cm (5'), weight 73.5 kg (162 lb), last menstrual period 05/16/2015, SpO2 97%. On examination, wound has a base of fibrinous exudate, no surrounding erythema of the skin, opening is patent Assessment IMPRESSION: s/p I&D of pilonidal cyst abscess PLAN: I have recommended dressings changes at least 2-3 times per day. Dressing may be soaked off in a tub for patient's comfort. I have prescribed her additional pain medications, but I have told patient that this will be the last amount and the patient acknowledges this. Follow up with me next week for wound check Diagnoses: (G89.18) Postoperative pain (primary encounter diagnosis) I have confirmed and edited as necessary, the PFSH and ROS obtained by others. Gertrude Henry MD documented in this encounter [facility] 12-23-2023 Miscellaneous Notes Reason for Call: Patient calling with concern for bleeding and odor from incision cite. Patient underwent pilonidal cyst removal on 12/20/23. She went to the emergency room 12/22/23 due to uncontrolled pain. Pain is now under control, however, she is now having brown colored drainage and an odor at the cite. Outcome: Conferenced to Answering Service [ ] to speak with provider alteration tailor for Dr. Gertrude Henry. GO TO THE EMERGENCY ROOM OR CALL 911 IF: * You develop any new symptoms * Your condition worsens Anu Morin RN documented in this encounter [facility] 12-11-2023 Note HNO ID: [id number] Author: YASSINE LINK MD Service: ? Author Type: Physician Type: Progress Notes Filed: 12/11/2023 13:31 Note Text: This note was created using [employer]. Subjective DISTANCE HEALTH VISIT Anne Chung's identity [...] MD [facility] 12-07-2023 Note HNO ID: [id number] Author: GERTURDE HENRY MD Service: ? Author Type: Physician Type: Progress Notes Filed: 12/07/2023 18:13 Note Text: HISTORY AND PHYSICAL Anne Chung 1985 REFERRING PHYSICIAN: No ref. provider found CHIEF COMPLAINT: Consult ([facility] ER lt gluteal abscess, IAND D done in ER, antibiotic tx doxy, images requested.) HPI: The patient is a 38 year old female presents with pilonidal cyst abscess. She was seen at [facility] ED on 11/17/23 and underwent stab IANDD. [...] included)... [facility] 11-27-2023 Note HNO ID: [id number] Author: German Pires APRN.NETWORK ADMINISTRATOR Service: ? Author Type: Nurse Specialist [...] department follow-up visit. She was seen at [facility] November 19, 2023 with abscess [...] She returned to emergency department on 11/21 [facility] for incisional pain. Provided with oxycodone [...] included)... [facility] 11-22-2023 Note HNO ID: [id number] Author: Taylor Esparza MD Service: ? Author Type: Physician Type: Progress Notes Filed: 11/22/2023 6:50 PM Note Text: PROGRESS NOTES PATIENT NAME: Anne Chung Consultation requested by Yassine Cedeno MD [[id number]] for an opinion regarding gluteal abscess. My final recommendations will be communicated back to the requesting physician by way of shared Medical record or letter to requesting physician via US mail. Assessment ASSESSMENT AND PLAN The patient is a 38-year-old female who presents with a right gluteal abscess which was drained in the [facility] ER. This seems to be doing [...] a gluteal abscess. She was seen at [facility] ER and had this drained on [...] included)... [facility] 11-21-2023 Hospital Discharg e instructions Patient Education [...] you to stop. You may use an enxi-lwr-lirxbzj pain medicine to control pain, unless another [...] the abscess Boil returns after getting better [phone] The NPS. [address] [place], [place] [id number]. All rights reserved. This information is not intended as a substitute for professional medical care. Always follow your healthcare professional's instructions. Follow Up Care 11/21/2023 15:43:04 With:YASSINE LINK MD Address: [address] [place] [address]- When:2-4 days [facility] 11-21-2023 Note Basic Information Time Seen: MAYI REAVES MD 11/21/2023 15:47 History of Present Illness Patient is a 38-year-old female presenting to the emergency department today for evaluation of redness around her left buttock. She states that she was diagnosed with an abscess 2 days ago at [facility] and had an incision and drainage [...] YASSINE LINK MD Within 2-4 days [address] [place] [address]- Additional Instructions: Medications What How Much When Why Instructions New acetaminophen-hydrocodone (Sheldon 325- 5 mg oral tablet) 1 tab(s) [...] CAROLINE ORTIZ MD on 11/21/2023 06:03 PM [facility] 11-21-2023 Note Discharge Instructions Thank you for allowing [facility] to assist you with your healthcare needs. [...] MD When Within 2-4 days Where: [address] [place] [address]- Allergies Bee Stings (swelling) Tessalon Perles (rash) morphine (hives) penicillin (hives) Medications Please ask your primary doctor or pharmacist before taking any other medication not listed, including over the counter drugs, herbal medications, vitamins and or supplements as they may interact with your home medications. What How Much When Why Instructions Last Dose New acetaminophen-hydrocodone (Sheldon 325- 5 mg oral tablet) 1 tab(s) by mouth Every 6 hours as needed for for pain Cellulitis Duration: 1 Days Printed Prescription New acetaminophen-hydrocodone (Sheldon 325- 5 mg oral tablet) 1 tab(s) [...] you to stop. You may use an bjnn-oto-zfcmnjx pain medicine to control pain, unless another [...] the abscess Boil returns after getting better [phone] The [address]PS. [address] [place] [address]. All rights reserved. This information is not intended as a substitute for professional medical care. Always follow your healthcare professional's instructions. Additional Information VACCINATE! IT SAVES LIVES! Members of the community who have not yet received the COVID-19 vaccine and would like to receive it can visit one of [facility] vaccine clinics. There are many vaccine clinic locations within the [facility]. For locations and available times, please visit [email or web address] It is important to note that some COVID mobile vaccine clinics are held outdoors and may be canceled in rainy or stormy conditions. To learn more about pediatric vaccinations (ages 5-11), we invite you to visit the [facility] webpage. [email or web address] To learn more about the COVID-19 vaccine, we invite you to visit the CDC website for a list of frequently asked questions. https://www.cdc.gov/coronavirus/ 2019-ncov/vaccines/faq.html [employer] Patient Portal Access Instructions: Stay connected with your healthcare team and access your personal medical information anytime with the [employer] Patient Portal. If you would like a full copy of your medical records please contact the [facility] Medical Records Department Sunday through Sunday between 8a.m. and 4:30p.m. Please follow the directions below to access the portal: 1.Access the email account you provided upon registration to the [facility].2.Look for an invitation email from [facility].3.Open the email and access the invitation link: Accept Invitation to [employer]4.Fill in the required hankins to create your account. Sign into [email or web address] with your username and password that you [...] you will allow to register on the [facility] Patient Portal for access to your information. You can also access the [employer] Patient Portal on the XOR.MOTORS phillip. Simply click on Health Records under Health Data and then click on the [employer] logo. HOW TO SAFELY DISPOSE OF PRESCRIPTION [...] Call your local pharmacy or go to [email or web address] to find one close to you.3.Make use of household items: Use cat litter or old coffee grounds to dispose medications if other options are not available. Mix your drugs with these household products, seal them in an airtight container and throw it into the garbage. Call [facility]: [phone] to be sure your drugs can be [...] been reviewed and explained to me and I,SHELDON ANNE Debbie understand my current condition and have read and understand these discharge instructions. I have received a written copy of the plan/instructions. If I have questions, I am aware that I should contact my doctor. Patient/Transcriptionist Signature: Date/Time: Relationship to Patient: Witness Name/Signature: Date/Time: [facility] 11-20-2023 Note HNO ID: [id number] Author: Yassine Link MD Service: ? Author Type: Physician Type: Progress Notes Filed: 11/20/2023 3:40 PM Note Text: This note was created using NoteWriter. Subjective Anne Debbie Sheldon is a 38 year old female who [...] MD [facility] 10-01-2023 Note HNO ID: [id number] Author: Yassine Link MD Service: ? Author Type: Physician Type: Progress Notes Filed: 10/01/2023 3:13 PM Note Text: This note was created using Supercircuits. Subjective DISTANCE HEALTH VISIT Anne Chung's identity [...] with temporary relief. She was going to mixing picker tender albuterol today. She had no contact with [...] MD [facility] 10-01-2023 History of Presen t illness Narrative This note was created using Peas-Corp[employer]. Subjective DISTANCE HEALTH VISIT Anne Chung's identity was confirmed. The limitations of telemedicine were reviewed, and verbal consent was obtained for this encounter. This encounter is not related to previous similar encounter within the past 7 days. No face to face visit is planned in the next day in connection to this encounter. This telemedicine encounter was accomplished via Iagnosis. Anne Chung is a 37 year old female with coughing, nausea, vomiting since Sunday. Other symptoms were wheezing, dyspnea. She felt feverish today. Dayquil and Nyquil were taken with temporary relief. She was going to mixing picker tender albuterol today. She had no contact with [...] Yassine Link MD documented in this encounter [facility] 09-21-2023 Miscellaneous Notes Pharmacist notified of providers message and verbalized understanding. Attempted to also contact patient with information but no answer and voice mailbox is full OK, see below.Switched to ibuprofen 800 mg TID. Eugenio, Pharmacist with [facility] calling regarding pt's script for [...] patient. Thank you. documented in this encounter [facility] 09-21-2023 Note HNO ID: [id number] Author: German Pires APRN.NETWORK ADMINISTRATOR Service: ? Author Type: Nurse Specialist [...] ankle. She was seen earlier today at [facility] emergency department for this complaint. [...] included)... [facility] 07-03-2023 Miscellaneous Notes TERESE: 05/28/2023 Last refill: 04/06/2023 QTY: 30 Refills: 0 documented in this encounter [facility] 06-01-2023 Miscellaneous Notes Patient has been [...] you. ANITRA Pastrana documented in this encounter [facility] 05-31-2023 Note HNO ID: [id number] Author: Hao Mcclellan PT Service: ? Author Type: Physical Therapist Type: Progress Notes Filed: 05/31/2023 8:57 AM Note Text: 05/31/2023 [facility] PHYSICAL THERAPY DISCONTINUANCE [...] therapy or scheduled additional follow-up appointments. Hao Mcclellan PT [facility] 05-28-2023 Note HNO ID: [id number] Author: Yassine Link MD Service: ? Author Type: Physician Type: Progress Notes Filed: 05/28/2023 7:55 PM Note Text: This note was created using NoteWriter. Subjective Patient presents with: ED Follow-up Anne Chung is a 37 year old female who is status post right oophorectomy 05/10/[address] Romelia Cunningham in [facility]. She went back to work this weekend and developed progressively severe sharp umbilical pain with nausea. She went to the [place] ED yesterday, where labs were labs and CT scan of of the abdomen and pelvis were within normal limits. She was given Toradol with no relief and one dose of Sheldon. She was advised to follow up with [...] MD [facility] 05-28-2023 History of Presen t illness Narrative This note was created using SR Labsriter. Subjective Patient presents with: ED Follow-up Anne Chung is a 37 year old female who is status post right oophorectomy 05/10/[address] Romelia Cunningham in [facility]. She went back to work this weekend and developed progressively severe sharp umbilical pain with nausea. She went to the [facility] ED yesterday, where labs were labs and CT scan of of the abdomen and pelvis were within normal limits. She was given Toradol with no relief and one dose of Sheldon. She was advised to follow up with [...] Yassine Link MD documented in this encounter [facility] 04-06-2023 Miscellaneous Notes Patient notified, verbalized [...] Leticia Persaud LPN documented in this encounter [facility] 03-12-2023 Note HNO ID: [id number] Author: Yassine Link MD Service: ? Author Type: Physician Type: Progress Notes Filed: 03/12/2023 6:46 PM Note Text: This note was created using Supercircuits. Subjective DISTANCE HEALTH VISIT Anne Chung's identity [...] MD [facility] 03-12-2023 History of Presen t illness Narrative [...] encounter. This telemedicine encounter was accomplished via Iagnosis. Patient complained of another flare up of [...] Yassine Link MD documented in this encounter [facility] 02-23-2023 Miscellaneous Notes Last office visit: [...] Shelbie Bass LPN documented in this encounter [facility] 02-20-2023 Note HNO ID: [id number] Author: Beatrice Camargo APRN.FINISHING AND SHIPPING SUPERVISOR Service: ? Author Type: Nurse Practitioner Type: [...] most recently seen by pain management with [facility] on 02/19. He recommended injections but needed [...] PAST SURGICAL HISTORY OF 2012 dental extraction ALLERGIES Bees, Morphine, Penicillins, Valium [...] included)... [facility] 02-20-2023 Miscellaneous Notes Ms. Chung called in response to a [employer] message about [facility]. She would like a call back to let her know why she needs the appointment. Deborah Rincon Machine Ceramic Coater documented in this encounter [facility] 02-13-2023 Note HNO ID: [id number] Author: RT Mirlande(R) Service: ? Author Type: [...] PM [facility] 02-05-2023 Miscellaneous Notes TERESE: 01/29/2023 Distance Health Last refill: 01/29/2023 QTY: 9 Refills: 0 documented in this encounter [facility] 01-29-2023 Note HNO ID: [id number] Author: German Pires APRN.NETWORK ADMINISTRATOR Service: ? Author Type: Nurse Specialist [...] with the evaluation remotely. Video visit. In [place]. Patient only. Consents to visit. SUBJECTIVE: HEPATITIS B(1 of 3 - 3-dose series) Never done COVID-19 VACCINE(1) Never done DTAP,TDAP,TD(2 - Td or Tdap) due on 09/24/2022 HPI Anne Cuhng is a 37 year old female. PMH significant for ACTIVE PROBLEM LIST Asthma Esophageal Reflux Tobacco Use Disorder Thoracic Outlet Syndrome Anxiety With Depression Overactive Bladder Acute Pain of Left Shoulder HPI excerpted from previous visits: PCP: Yassine Link MD Presents today regarding a lump. She reports being seen by her MD PHYSICIAN DERMATOLOGIST Dr. Cunningham for folliculitis which she reports [...] been ordered by her vascular surgeon, scheduled. [employer] messages indicate insurance denial. Provider and vascular [...] included)... [facility] 01-29-2023 History of Presen t illness Narrative [...] with the evaluation remotely. Video visit. In [place]. Patient only. Consents to visit. SUBJECTIVE: HEPATITIS [...] lump. She reports being seen by her MD PHYSICIAN DERMATOLOGIST Dr. Cunningham for folliculitis which she reports [...] been ordered by her vascular surgeon, scheduled. [employer] messages indicate insurance denial. Provider and vascular [...] to see pain management Dr. Yang at [facility]. PCP referred her to pain management, [...] 1 - N/A documented in this encounter [facility] 12-29-2022 Miscellaneous Notes Peer to Peer requested [place]: [id number] [place] [address] MRI CERVICAL SPINE WO JON Spoke with At [facility] - requested further information. Called pt and documented necessary information in telephone encounter from 12/29/22. Called [employer] back - requested us to fax this documentation for further review. Fax information faxed to . Received confirmation receipt from transmission report. Carol Rainey APRN.CNP documented in this encounter [facility] 12-29-2022 Miscellaneous Notes Called [employer] company at 9:20am today 12/29/22 for peer [...] past 6 months since she works at [employer] and the job requires lifting. Pt to f/u with pain management - next appointment is 01/16/23. Pt states pain management would like MRIs before considering invasive treatments. No vascular surgery plans at this time. I will contact [employer] again to discuss this information to seek approval for MRIs. Carol Rainey APRN.YORDY documented in this encounter [facility] 12-28-2022 History of Presen t illness Narrative This note was created using SR Labsriter. Subjective Anne Chung is a 37 year [...] Yassine Link MD documented in this encounter [facility] 12-28-2022 History of Presen t illness Narrative Episode Visit Count: 1 Therapist That Will Accept/Oversee The Plan Of Care: Hao Mcclellan Start of Care Date: 12/28/22 Onset Date: [...] L shoulder for ease of work duties [place] in home exercise program. Increase ROM of the L shoulder to WNL for reaching overhead Patient Goals: Decrease pain Planned Interventions, Frequency, and Duration: Current Frequency: 1x/week Duration: 4 weeks Total Number of Visits Planned: 4 Planned Treatment Interventions: Therapeutic exercise (32005), Neuromuscular re-education (23464), Manual therapy (14352), Self-alf management (68255), Patient/Family/Caregiver Education PLAN FOR NEXT VISIT: Supraspinatus [...] Independent without limitations Relevant History Preferred Language: [place] Intake Information: Prescription present Previous Treatment: Physical [...] Total Treatment Time Minutes (timed/untimed): 45 Hao Mcclellan PT documented in this encounter [facility] 12-20-2022 Miscellaneous Notes Patient has been [...] Leticia Persaud LPN documented in this encounter [facility] 12-11-2022 History of Presen t illness Narrative Video visit. In [place]. Patient only. Consents to visit. SUBJECTIVE: HEPATITIS [...] lump. She reports being seen by her MD PHYSICIAN DERMATOLOGIST Dr. Cunningham for folliculitis which she reports [...] appointment with pain management, Dr. Yang at [facility] She will let us know if not feeling improved. German Pires APRN.CNS 20 min in visit Medical Decision Making: Problems: Moderate: 1+ chronic illnesses with change Risk: Moderate: Drug management Medical Decision Making Level: 4 - Moderate documented in this encounter [facility] 12-08-2022 History of Presen t illness Narrative [facility] General Surgery Rosas Baugh M.D., F.A.C.S. Gabino Torres [facility] [address] [id number] NAME: ANNE KUHN [facility] NO: [id number] DATE OF SERVICE: 12/08/[address]22 PLACE OF ENCOUNTER: [facility] Established patient recently hospitalized and discharged from [...] time. ROSAS BAUGH M.D. BB/079 Audio #: [id number] Date Dictated: 12/08/2022 11:32:05 Date Typed: 12/08/2022 14:08:06 Date Revised: documented in this encounter [facility] 12-06-2022 Miscellaneous Notes Notified via [employer]. Left a message for pt to call [...] Levy Luu Ma documented in this encounter [facility] 12-06-2022 Miscellaneous Notes Patient seen. documented in this encounter [facility] 12-02-2022 Miscellaneous Notes See office visit. [...] Please advise patient. documented in this encounter [facility] 12-01-2022 History of Presen t illness Narrative This note was created using SR Labsriter. Subjective Anne Chung is a 37 year [...] to refer her to a different paint process engineer in [facility]. Review of Systems Constitutional: Negative. Respiratory: Negative. [...] Yassine Link MD documented in this encounter [facility] 11-09-2022 History of Presen t illness [...] Link MD S documented in this encounter [facility] 11-03-2022 Instructions German Pires APRN.NETWORK ADMINISTRATOR - 11/03/2022 10:57 AM EST Keep area of concern clean and dry. Wash with soap and water daily. Avoid clothing over the area of concern. Follow-up with your MD PHYSICIAN DERMATOLOGIST if not feeling improved. documented in this encounter [facility] 11-03-2022 History of Presen t illness [...] lump. She reports being seen by her MD PHYSICIAN DERMATOLOGIST Dr. Cunningham for folliculitis which she reports [...] Pain medication x3 days Further follow-up with MD PHYSICIAN DERMATOLOGIST and PCP advised. ER for any severe or concerning symptoms - OXYCODONE-ACETAMINOPHEN 5 MG-325 MG TABLET - SULFAMETHOXAZOLE 800 MG-TRIMETHOPRIM 160 MG TABLET German Pires APRN.CNS Medical Decision Making: Problems: Low: Acute, uncomplicated illness or injury Risk: Moderate: Drug management Medical Decision Making Level: 3 - Low documented in this encounter [facility] 10-23-2022 Miscellaneous Notes Last office visit: 10/05/22 Next appointment scheduled: 11/07/22 Patient phones requesting refills as follows: Requested Prescriptions Pending Prescriptions Disp Refills lidocaine (LIDODERM) 5 % 10 Patch 3 Sig: Apply 1 Patch as directed every 24 hours. to affected area. Remove patch after 12 hours. Please review and advise. Shelbie Bass LPN documented in this encounter [facility] 10-05-2022 Miscellaneous Notes Patient's request for [...] ask him about medication. Hipolito from the [facility] reports they are out of this medication right now. States Pt is asking if provider could send it to [facility] in [place]. Patient has been identified by name and [...] Aliyah Trimble RN documented in this encounter [facility] 10-05-2022 Instructions Yassine Link MD - 10/05/2022 12:24 PM EST SEE GYNECOLOGY FOR EVALUATION AND TREATMENT. PERCOCET IS REFILLED THIS LAST TIME. documented in this encounter [facility] 10-05-2022 History of Presen t illness Narrative This note was created using SR Labsriter. Subjective Anne Chung is a 36 year old female. She continued with lower abdominal and right lower quadrant pain, moderately severe for almost 2 weeks now, aggravated by movement, and associated with nausea. Evaluation in the ER 09/26 showed no acute findings. A cyst was noted on the right ovary, and it was suggested she see her vehicle monitor technician about this. She had an appointment with [...] ED. It is not clear if her vehicle monitor technician will recommend surgery or if the pain is coming from this ovarian cyst. Shared medical decision making was done. Opioid has risks, and we agreed I am refilling this absolutely for the last time. Yassine Link MD documented in this encounter [facility] 10-05-2022 Miscellaneous Notes Patient returned call [...] Leticia Persaud LPN documented in this encounter [facility] 10-04-2022 Miscellaneous Notes Patient has been [...] Leticia Persaud LPN documented in this encounter [facility] 09-26-2022 Instructions Yassine Link MD - 09/26/2022 11:04 AM EDT I recommend ER evaluation. documented in this encounter [facility] 09-26-2022 History of Presen t illness Narrative This note was created using SR Labsriter. Subjective Anne Chung is a 36 year [...] Yassine Link MD documented in this encounter [facility] 08-31-2022 Instructions Izabela Stephens APRN.YORDY - 08/31/2022 9:31 AM EDT Activity as tolerated Use Ice and/or heat as tolerated as needed documented in this encounter [facility] 08-31-2022 History of Presen t illness [...] not nervous/anxious. [facility] General Today's Date: 08/31/2022 Last Visit: [...] MRI Spine Report MRI THORACIC SPINE WO JON Collected: 02/20/2018 9:38 AM (Final result) Narrative: [...] stenosis in the cervical and thoracic spine. Front Desk Worker: [facility] Transcribe Date/Time: Feb 20 2018 9:51A Dictated [...] No suspicious activity was identified. 08/31/2022 by Izabela Stephens APRN.FINISHING AND SHIPPING SUPERVISOR Risk Assessment: BLACK-7: BLACK - 7 SCORES [...] 08/31/2022 Completed and reviewed, HIGH risk Functional Confucianist: Physical Therapy (Land-based) Additional Studies: XR Cervical [...] current medical decision making from today's date. Izabela Stephens APRN.YORDY Pain Management [facility] documented in this encounter [facility] 07-28-2022 History of Presen t illness Narrative This note was created using SR Labsriter. Subjective Anne Chung is a 36 year [...] ER report reviewed. Urine C&S preliminary from [facility] ER. Assessment and Plan ASSESSMENT/PLAN: 1. Overactive [...] Yassine Link MD documented in this encounter [facility] 07-28-2022 Miscellaneous Notes noted, should let [...] as above 6. :no Protocols used: Urinary [id number]-[id number]-WT documented in this encounter [facility] 07-14-2022 Miscellaneous Notes 1st attempt left message to return call to [phone] Ontiveros schedulers will assist in arranging this appointment. Sent e-mail also to Dr Ontiveros's schedulers and my chart message to the patient. Sending to PSS to schedule. Leticia Persaud LPN Isabel Pedroza ordered pain management consult on June 19. Please schedule 1st available or cancellation list for Dr. Brandon Ontiveros. documented in this encounter [facility] 07-03-2022 Miscellaneous Notes TERESE: 06/19/2022 Last [...] Levy Luu Ma documented in this encounter [facility] 06-27-2022 Miscellaneous Notes Please schedule her with Dr Ontiveros. Rx sent. PDMP website checked and validated. All prescriptions have been APPROPRIATELY filled. No suspicious activity was identified. 06/27/2022 by German Pires APRN.NETWORK ADMINISTRATOR Please send any future requests for [...] Leticia Persaud LPN documented in this encounter [facility] 06-20-2022 History of Presen t illness Narrative POPULATION HEALTH NAVIGATION OUTREACH Action/I [facility] Support: Called pt to schedule an appt in Pain Management. Lvm for pt to call [phone] for scheduling. Pt identified by name and : NO Outreach Outcome/Action Unable to reach patient: Left message Did you use a PCP flex slot to schedule this appointment? N/A Reason for Outreach Care Gap or Scheduling/Wellness visits Payer: Payor: [facility] MEDICAID / [facility] [id number] [place] / Product Type: Medicaid / Care Gap Reviewed:: Specialty Scheduling Reminder: Reminder note to check Health Maintenance for items below Health Maintenance items due: There are no preventive care reminders to display for this patient. Message Sent to Practice: No Navigation Signature: Carol Perez June 20, 2022 4:19 PM documented in this encounter [facility] 06-20-2022 Miscellaneous Notes Left vm for pt with appt info. Lindsey Coley PSS documented in this encounter [facility] 06-19-2022 Miscellaneous Notes Left brief message on cell voicemail stating to call the office to schedule New patient appointment with Dr. Ontiveros or Izabela Stephens in [place]. Lolita Cotton Please assist with scheduling. Thanks Kasia Bermudez PSS documented in this encounter [facility] 06-19-2022 History of Presen t illness Narrative SUBJECTIVE: There are no preventive care reminders to display for this patient. KEREN Chung is a 36 year old female. [...] 4 - Moderate documented in this encounter [facility] 05-23-2022 History of Presen t illness Narrative This note was created using [employer]. Subjective Anne Chung is a 36 year old female. Her chronic underlying anxiety flared up 3-4 weeks ago. She 3 anniversaries this month, and she was reliving that stress. She had panic, insomnia, and depression. She denied suicide ideations. 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 Review of Systems Constitutional: Negative. Negative for [...] and side effects. Limit use. Not for computer terminal operator use. - PAROXETINE 20 MG TABLET. Take one(1) tablet daily. Discussed medication dosage, usage, goals of therapy, and side effects. She had taken this in the past. Patient contracted for safety. - CONSULT TO [facility] Yassine Link MD documented in this encounter [facility] 05-10-2022 Miscellaneous Notes Spoke with pt [...] Leticia Persaud LPN documented in this encounter [facility] 05-04-2022 History of Presen t illness Narrative This note was created using [employer]. Subjective Anne Chung is a 36 year [...] Yassine Link MD documented in this encounter [facility] 04-25-2022 Miscellaneous Notes Patient has been [...] Leticia Persaud LPN documented in this encounter [facility] 04-06-2022 Miscellaneous Notes Patient has been [...] Not applicable Please advise. Thank you. Nicole Sanches, RN documented in this encounter [facility] 02-24-2022 History of Presen t illness Narrative SUBJECTIVE: There are no preventive care reminders to display for this patient. KEREN Chung is a 36 year old female. [...] occurrence like this. No numbness or tingling. Air Pumper is maintained. Notes she is doing well [...] the right shoulder, no numbness or tingling, service station attendant preserved normal pulse Skin: General: Skin is [...] Making Level: 4 - Moderate German Pires APRN.NETWORK ADMINISTRATOR documented in this encounter [facility] documented as of this encounter (statuses as of 05/23/2022) [facility] History of Past illness Narrative* Problem [...] of this encounter (statuses as of 05/23/2022) [facility] Narrative* Problem [...] of this encounter (statuses as of 06/19/2022) [facility] Narrative* Problem [...] of this encounter (statuses as of 06/19/2022) [facility] Narrative* Problem [...] of this encounter (statuses as of 06/20/2022) [facility] Narrative* Problem [...] of this encounter (statuses as of 06/20/2022) [facility] Narrative* Problem [...] of this encounter (statuses as of 06/27/2022) [facility] Narrative* Problem [...] of this encounter (statuses as of 06/28/2022) [facility] Narrative* Problem [...] of this encounter (statuses as of 07/04/2022) [facility] Narrative* Problem [...] of this encounter (statuses as of 07/28/2022) [facility] Narrative* Problem [...] of this encounter (statuses as of 08/01/2022) [facility] Narrative* Problem [...] of this encounter (statuses as of 08/09/2022) [facility] Narrative* Problem [...] of this encounter (statuses as of 08/31/2022) [facility] Narrative* Problem [...] of this encounter (statuses as of 09/26/2022) [facility] Narrative* Problem [...] of this encounter (statuses as of 10/04/2022) [facility] Narrative* Problem [...] of this encounter (statuses as of 10/05/2022) [facility] N[facility]ative* Problem [...] of this encounter (statuses as of 10/05/2022) [facility] N[facility]* Problem [...] of this encounter (statuses as of 10/06/2022) [facility] N[facility]ative* Problem [...] of this encounter (statuses as of 10/23/2022) [facility] N[facility]ative* Problem [...] of this encounter (statuses as of 11/03/2022) [facility] N[facility]ative* Problem [...] of this encounter (statuses as of 11/09/2022) [facility]* Problem [...] of this encounter (statuses as of 12/02/2022) [facility] N[facility]ative* Problem [...] of this encounter (statuses as of 12/03/2022) [facility] N[facility]ative* Problem [...] of this encounter (statuses as of 12/06/2022) [facility] Narrative* Problem [...] of this encounter (statuses as of 12/06/2022) [facility] N[facility]ative* Problem [...] of this encounter (statuses as of 12/06/2022) [facility] Narrative* Problem [...] of this encounter (statuses as of 12/08/2022) [facility]* Problem [...] of this encounter (statuses as of 12/11/2022) [facility]* Problem [...] of this encounter (statuses as of 12/25/2022) [facility]* Problem [...] of this encounter (statuses as of 12/28/2022) [facility] N[facility]* Problem [...] of this encounter (statuses as of 12/28/2022) [facility]* Problem [...] of this encounter (statuses as of 12/29/2022) [facility] N[facility]* Problem [...] of this encounter (statuses as of 12/29/2022) [facility]* Problem [...] of this encounter (statuses as of 01/29/2023) [facility]* Problem [...] of this encounter (statuses as of 02/07/2023) [facility]* Problem [...] of this encounter (statuses as of 02/20/2023) [facility]* Problem [...] of this encounter (statuses as of 02/20/2023) [facility]* Problem [...] of this encounter (statuses as of 02/23/2023) [facility]* Problem [...] of this encounter (statuses as of 03/13/2023) [facility]* Problem [...] of this encounter (statuses as of 04/06/2023) [facility]* Problem [...] of this encounter (statuses as of 05/29/2023) [facility]* Problem [...] of this encounter (statuses as of 06/02/2023) [facility]* Problem [...] of this encounter (statuses as of 07/10/2023) [facility]* Problem [...] of this encounter (statuses as of 09/21/2023) [facility]* Problem [...] of this encounter (statuses as of 10/01/2023) [facility]* Problem [...] of this encounter (statuses as of 10/02/2023) [facility]* Problem [...] of this encounter (statuses as of 10/03/2023) [facility]* Problem [...] as of this encounter (statuses as of 12/23/2023) [facility] N[facility]ative* Problem [...] as of this encounter (statuses as of 12/29/2023) [facility]* Problem [...] of this encounter (statuses as of 02/24/2022) [facility]* Problem [...] of this encounter (statuses as of 04/07/2022) [facility]* Problem [...] of this encounter (statuses as of 04/25/2022) [facility]* Problem [...] of this encounter (statuses as of 05/04/2022) [facility]* Problem [...] of this encounter (statuses as of [facility]/10/2022) [facility] No data available for this section [facility]* Diagnosis Acute pain of right shoulder- Primary Pain, postoperative, acute Other acute postoperative pain TOS (thoracic outlet syndrome) Brachial plexus lesions Acute upper back pain Pain in thoracic spine documented in this encounter [facility] note* Diagnosis Bee sting reaction, accidental or unintentional, sequela documented in this encounter [facility] note* Diagnosis Uncomplicated asthma, unspecified asthma severity, unspecified whether persistent documented in this encounter [facility] note* Diagnosis Thoracic outlet syndrome- Primary Brachial plexus lesions Gastroesophageal reflux disease, unspecified whether esophagitis present Uncomplicated asthma, unspecified asthma severity, unspecified whether persistent documented in this encounter [facility] note* Diagnosis Thoracic outlet syndrome Brachial plexus lesions documented in this encounter [facility] note* Diagnosis Anxiety with depression- Primary documented in this encounter [facility] note* Diagnosis Thoracic outlet syndrome- Primary Brachial plexus lesions documented in this encounter [facility] note* Diagnosis Thoracic outlet syndrome Brachial plexus lesions documented in this encounter [facility] note* Diagnosis Thoracic outlet syndrome Brachial plexus lesions documented in this encounter [facility] note* Diagnosis Overactive bladder- Primary Hypertonicity of bladder Bacteriuria Other nonspecific finding on examination of urine documented in this encounter [facility] note* Diagnosis TOS (thoracic outlet syndrome)- Primary Brachial plexus lesions Myofascial pain syndrome Mylagia and myositis, unspecified Chronic left shoulder pain Pain in joint, shoulder region Neck pain Cervicalgia documented in this encounter [facility] note* Diagnosis Lower abdominal pain- Primary Abdominal pain, other specified site documented in this encounter [facility] note* Diagnosis Gastroesophageal reflux disease without esophagitis Esophageal reflux documented in this encounter [facility] note* Diagnosis Lower abdominal pain Abdominal pain, other specified site documented in this encounter [facility] note* Diagnosis RLQ abdominal pain- Primary Abdominal pain, right lower quadrant Cyst of ovary, right Other and unspecified ovarian cyst [facility] Diagnosis RLQ abdominal pain Abdominal pain, right lower quadrant Cyst of ovary, right Other and unspecified ovarian cyst documented in this encounter [facility] note* Diagnosis Thoracic outlet syndrome Brachial plexus lesions documented in this encounter [facility] note* Diagnosis Folliculitis- Primary Other specified disease of hair and hair follicles RLQ abdominal pain Abdominal pain, right lower quadrant Cyst of ovary, right Other and unspecified ovarian cyst documented in this encounter [facility] note* Diagnosis Anxiety with depression- Primary Thoracic outlet syndrome Brachial plexus lesions documented in this encounter [facility] note* Diagnosis Thoracic outlet syndrome- Primary Brachial plexus lesions documented in this encounter [facility] note* Diagnosis Thoracic outlet syndrome Brachial plexus lesions documented in this encounter [facility] note* Diagnosis Thoracic outlet syndrome- Primary Brachial plexus lesions Chronic post-operative pain Cervicalgia Chronic left shoulder pain Pain in joint, shoulder region documented in this encounter [facility] note* Diagnosis Anxiety with depression documented in this encounter [facility] note* Diagnosis Acute pain of right shoulder documented in this encounter [facility] note* Diagnosis Left shoulder pain, unspecified chronicity [M25.512 (ICD-10-CM)]- Primary documented in this encounter [facility] note* Diagnosis Thoracic outlet syndrome- Primary Brachial plexus lesions Chronic post-operative pain Cervicalgia Chronic left shoulder pain Pain in joint, shoulder region documented in this encounter [facility] note* Diagnosis Cervicalgia- Primary documented in this encounter [facility] note* Diagnosis Gastroesophageal reflux disease without esophagitis Esophageal reflux documented in this encounter [facility] note* Diagnosis Pain of left shoulder region- Primary Anxiety with depression Thoracic outlet syndrome Brachial plexus lesions Non-adherence to medical treatment Personal history of noncompliance with medical treatment, presenting hazards to health documented in this encounter [facility] note* Diagnosis Thoracic outlet syndrome Brachial plexus lesions Anxiety with depression documented in this encounter [facility] note* Diagnosis Postoperative abdominal pain- Primary Abdominal pain, unspecified site Gastroesophageal reflux disease without esophagitis Esophageal reflux documented in this encounter [facility] note* Diagnosis Uncomplicated asthma, unspecified asthma severity, unspecified whether persistent documented in this encounter [facility] note* Diagnosis Anxiety with depression documented in this encounter [facility] note* Diagnosis Asthma with acute exacerbation, unspecified asthma severity, unspecified whether persistent- Primary Nausea and vomiting, unspecified vomiting type documented in this encounter [facility] note* Diagnosis Postoperative pain- Primary Other acute postoperative pain Status post incision and drainage documented in this encounter [facility] for referral (narrative)* Diagnostic Procedure Only (Routine) - Pending Review Specialty Diagnoses / Procedures Referred By Rosio sanabria Referred To Contact XR IMAGING Diagnoses Acute pain of right shoulder Acute upper back pain Procedures XR CERV GENERAL 2V AP/LAT RADEX SPINE CERVICAL 2 OR 3 VIEWS German Pires APRN.NETWORK ADMINISTRATOR [address] [place] [address] Xr Imaging Referral ID Status Reason Start Date Expiration Date Visits Requested Visits Authorized [id number] Pending Review Auto-Generat ed Referral 02/24/2022 03/26/2023 1 1 * Diagnostic Procedure Only (Routine) - Pending Review Specialty Diagnoses / Procedures Referred By Contac t Referred To Contact XR IMAGING Diagnoses Acute pain of right shoulder Acute upper back pain Procedures XR THORACIC GENERAL 3V AP/LAT/SWIMMERS RADEX SPINE THORACIC 3 VIEWS German Pires APRN.NETWORK ADMINISTRATOR [address] [place] [address] Xr Imaging Referral ID Status Reason Start Date Expiration Date Visits Requested Visits Authorized [id number] Pending Review Auto-Generat ed Referral 02/24/2022 03/26/2023 1 1 * Physical Therapy (Routine) - Pending Review Specialty Diagnoses / Procedures Referred By Contac t Referred To Contact [facility] Diagnoses Acute pain of right shoulder Procedures CONSULT TO PHYSICAL THERAPY PHYSICAL THERAPY EVALUATION HIGH COMPLEX 45 MINS German Pires APRN.NETWORK ADMINISTRATOR [address] [place] [address] [facility] [place] [address] [place] [address] Referral ID Status Reason Start Date Expiration Date Visits Requested Visits Authorized [id number] Pending Review Auto-Generat ed Referral 02/24/2022 02/24/2023 1 1 * Diagnostic Procedure Only (Routine) - Pending Review Specialty Diagnoses / Procedures Referred By Contac t Referred To Contact XR IMAGING Diagnoses Acute pain of right shoulder Procedures XR SHOULDER GENERAL 3V OR MORE AP/TRUE AP/OTHER LEFT RADEX SHOULDER COMPLETE MINIMUM 2 VIEWS German Pires APRN.NETWORK ADMINISTRATOR [address] [place] [address] Xr Imaging Referral ID Status Reason Start Date Expiration Date Visits Requested Visits Authorized [id number] Pending Review Auto-Generat ed Referral 02/24/2022 03/26/2023 1 1 [facility] for referral (narrative)* Diagnostic Procedure Only (Routine) - Pending Review Specialty Diagnoses / Procedures Referred By Contac t Referred To Contact XR IMAGING Diagnoses Chronic left shoulder pain Procedures XR SHOULDER LIMITED 2V AP/TRUE AP LEFT RADEX SHOULDER COMPLETE MINIMUM 2 VIEWS Izabela Stephens, EDU.FINISHING AND SHIPPING SUPERVISOR [address] [place] [address] Xr Imaging Referral ID Status Reason Start Date Expiration Date Visits Requested Visits Authorized [id number] Pending Review Auto-Generat ed Referral 08/31/2022 09/30/2023 1 1 * - Pending Review Specialty Diagnoses / Procedures Referred By Contac t Referred To Contact Physical Therapy Diagnoses TOS (thoracic outlet syndrome) Myofascial pain syndrome Chronic left shoulder pain Neck pain Procedures CONSULT TO PHYSICAL THERAPY Izabela Stephens APRN.FINISHING AND SHIPPING SUPERVISOR [address] [place] [address] Referral ID Status Reason Start Date Expiration Date V isits Requested Visits Authorized [id number] Pending Review 08/31/2022 11/29/2022 1 1 * Diagnostic Procedure Only (Routine) - Pending Review Specialty Diagnoses / Procedures Referred By Contac t Referred To Contact XR IMAGING Diagnoses TOS (thoracic outlet syndrome) Procedures XR THORACIC LIMITED 2V AP/LAT RADEX SPINE THORACIC 2 VIEWS Izabela Stephens APRN.FINISHING AND SHIPPING SUPERVISOR [address] [place] [address] Xr Imaging Referral ID Status Reason Start Date Expiration Date Visits Requested Visits Authorized [id number] Pending Review Auto-Generat ed Referral 08/31/2022 09/30/2023 1 1 * Diagnostic Procedure Only (Routine) - Pending Review Specialty Diagnoses / Procedures Referred By Contac t Referred To Contact XR IMAGING Diagnoses Neck pain Procedures XR CERV OTHER 6V AP/LAT/FLX/EXT/OBL RADEX SPINE CERVICAL 6 OR MORE VIEWS Izabela Stephens, AUDIO VIDEO TECH.FINISHING AND SHIPPING SUPERVISOR [address] [place] [address] Xr Imaging Referral ID Status Reason Start Date Expiration Date Visits Requested Visits Authorized [id number] Pending Review Auto-Generat ed Referral 08/31/2022 09/30/2023 1 1 [facility] for visit Narrative* Outpatient Procedure (Routine) - Closed Specialty Diagnoses / Procedures Referred By Contac t Referred To Contact Radiology / RADIO [facility] Diagnoses Cervicalgia [M54.2] Procedures MRI WO [address]AW [address] Estevan Cheney MD [address] [place] [address] [facility] [address] [place] [address] Referral ID Status Reason Start Date Expiration Date Visits Re quested Visits Authorized [id number] Closed 01/31/2023 05/01/2023 1 1 [facility] for visit Narrative* Diagnostic Procedure Only (Routine) - Closed Specialty Diagnoses / Procedures Referred By Contac t Referred To Contact Radiology / RADIO [facility] Diagnoses Cervicalgia [M54.2] Procedures MRI WO YAW B [address] Estevan Cheney MD [address] [place] [address] [facility] [address] [place] [address] Referral ID Status Reason Start Date Expiration Date Visits Re quested Visits Authorized [id number] Closed 01/31/2023 05/01/2023 1 1 [facility] Summary Purpose Family History No Family History Records Found No data available for this section No Family History Records FoundNo Family History Records FoundNo Family History Records Found Advance Directives No Advanced Directives Records FoundDocuments on File Type Date Recorded Patient Transcriptionist Expl anation Advance Directive(s) 09/08/2021 9:29 AM Advance Directive(s) 11/08/2016 11:21 AM Documents on File Type Date Recorded Patient Transcriptionist Expl anation Advance Directive(s) 09/08/2021 9:29 AM [...] Procedures CONSULT TO PAIN MGT OFFICE/OUTPATIENT [facility] MDM 60-74 MINUTES German Pires, AUDIO VIDEO TECH.NETWORK ADMINISTRATOR [address] [place] [address] Referral ID Status Reason Start Date Expiration Date Visits Requested Visits Authorized [id number] Authorized PCP Requested Referral 06/19/2022 06/19/2023 1 1 Specialty Diagnoses / Procedures Referred By Rosio sanabria Referred To Contact Vascular Surgery Diagnoses Thoracic outlet syndrome Procedures CONSULT TO VASCULAR SURGERY OFFICE/OUTPATIENT [facility] MDM 60-74 MINUTES German Pires, AUDIO VIDEO TECH.NETWORK ADMINISTRATOR [address] [place] [address] Referral ID Status Reason Start Date Expiration Date Visits Requested Visits Authorized [id number] Authorized PCP Requested Referral 06/19/2022 06/19/2023 1 1 Specialty Diagnoses / Procedures Referred By Contac t Referred To Contact Diagnoses Thoracic outlet syndrome Gemran Pires, AUDIO VIDEO TECH.NETWORK ADMINISTRATOR [address] [place] [address] Referral ID Status Reason Start Date Expiration Date Visits Re quested Visits Authorized [id number] Closed 1 1 Specialty Diagnoses / Procedures Referred By Contac t Referred To Contact [facility] Diagnoses Acute pain of right shoulder Procedures PT REHAB FOLLOW UP ORDER THERAPEUTIC EXERCISES RE, EA 15 MIN. German Pires, AUDIO VIDEO TECH.NETWORK ADMINISTRATOR [address] [place] [address] [facility] [place] [address] [place] [id number] Referral ID Status Reason Start Date Expiration Date Visits Requested Visits Authorized [id number] Waiting for Response PCP Requested Referral Auto-Generate d Referral 12/28/2022 03/28/2023 1 1 Specialty Diagnoses / Procedures Referred By Contac t Referred To Contact [facility] [place] Diagnoses Cervicalgia Procedures CONSULT TO [facility] OFFICE/OUTPATIENT NEW HIGH MDM 60-74 MINUTES Estevan Blackman MD [address] [place] [address] Referral ID Status Reason Start Date Expiration Date Visits Requested Visits Authorized [id number] Authorized PCP Requested Referral 02/20/2023 02/20/2024 1 1 Additional Source Comments INFORMATION SOURCE (unrecogn ized section and content) DATE CREATED AUTHOR AUTHOR'S ORGANIZ ATION 11/30/2023 [facility] DATE CREATED AUTHOR AUTHOR'S ORGANIZ ATION 12/27/2023 [facility] DATE CREATED AUTHOR AUTHOR'S ORGANIZ ATION 12/30/2023 [facility] Source Comments (unrecognize d section and content) In the event this informatio n is protected by the Federal Confidentiality of Alcohol and Drug Abuse Patient Records regulations: The Federal rules restrict any use of the information to criminally investigate or prosecute any alcohol or drug abuse patient.[facility] HospitalIn the event this information is protected by the Federal Confidentiality of Alcohol and Drug Abuse Patient Records regulations: The Federal rules restrict any use of the information to criminally investigate or prosecute any alcohol or drug abuse patient.[facility] HospitalIn the event this information is protected by the Federal Confidentiality of Alcohol and Drug Abuse Patient Records regulations: The Federal rules restrict any use of the information to criminally investigate or prosecute any alcohol or drug abuse patient.[facility] HospitalIn the event this information is protected by the Federal Confidentiality of Alcohol and Drug Abuse Patient Records regulations: The Federal rules restrict any use of the information to criminally investigate or prosecute any alcohol or drug abuse patient.[facility] HospitalIn the event this information is protected by the Federal Confidentiality of Alcohol and Drug Abuse Patient Records regulations: The Federal rules restrict any use of the information to criminally investigate or prosecute any alcohol or drug abuse patient.[facility] HospitalIn the event this information is protected by the Federal Confidentiality of Alcohol and Drug Abuse Patient Records regulations: The Federal rules restrict any use of the information to criminally investigate or prosecute any alcohol or drug abuse patient.[facility] HospitalIn the event this information is protected by the Federal Confidentiality of Alcohol and Drug Abuse Patient Records regulations: The Federal rules restrict any use of the information to criminally investigate or prosecute any alcohol or drug abuse patient.[facility] HospitalIn the event this information is protected by the Federal Confidentiality of Alcohol and Drug Abuse Patient Records regulations: The Federal rules restrict any use of the information to criminally investigate or prosecute any alcohol or drug abuse patient.[facility] HospitalIn the event this information is protected by the Federal Confidentiality of Alcohol and Drug Abuse Patient Records regulations: The Federal rules restrict any use of the information to criminally investigate or prosecute any alcohol or drug abuse patient.[facility] HospitalIn the event this information is protected by the Federal Confidentiality of Alcohol and Drug Abuse Patient Records regulations: The Federal rules restrict any use of the information to criminally investigate or prosecute any alcohol or drug abuse patient.[facility] HospitalIn the event this information is protected by the Federal Confidentiality of Alcohol and Drug Abuse Patient Records regulations: The Federal rules restrict any use of the information to criminally investigate or prosecute any alcohol or drug abuse patient.[facility] HospitalIn the event this information is protected by the Federal Confidentiality of Alcohol and Drug Abuse Patient Records regulations: The Federal rules restrict any use of the information to criminally investigate or prosecute any alcohol or drug abuse patient.[facility] HospitalIn the event this information is protected by the Federal Confidentiality of Alcohol and Drug Abuse Patient Records regulations: The Federal rules restrict any use of the information to criminally investigate or prosecute any alcohol or drug abuse patient.[facility] HospitalIn the event this information is protected by the Federal Confidentiality of Alcohol and Drug Abuse Patient Records regulations: The Federal rules restrict any use of the information to criminally investigate or prosecute any alcohol or drug abuse patient.[facility] HospitalIn the event this information is protected by the Federal Confidentiality of Alcohol and Drug Abuse Patient Records regulations: The Federal rules restrict any use of the information to criminally investigate or prosecute any alcohol or drug abuse patient.[facility] HospitalIn the event this information is protected by the Federal Confidentiality of Alcohol and Drug Abuse Patient Records regulations: The Federal rules restrict any use of the information to criminally investigate or prosecute any alcohol or drug abuse patient.[facility] HospitalIn the event this information is protected by the Federal Confidentiality of Alcohol and Drug Abuse Patient Records regulations: The Federal rules restrict any use of the information to criminally investigate or prosecute any alcohol or drug abuse patient.[facility] HospitalIn the event this information is protected by the Federal Confidentiality of Alcohol and Drug Abuse Patient Records regulations: The Federal rules restrict any use of the information to criminally investigate or prosecute any alcohol or drug abuse patient.[facility] HospitalIn the event this information is protected by the Federal Confidentiality of Alcohol and Drug Abuse Patient Records regulations: The Federal rules restrict any use of the information to criminally investigate or prosecute any alcohol or drug abuse patient.[facility] HospitalIn the event this information is protected by the Federal Confidentiality of Alcohol and Drug Abuse Patient Records regulations: The Federal rules restrict any use of the information to criminally investigate or prosecute any alcohol or drug abuse patient.[facility] HospitalIn the event this information is protected by the Federal Confidentiality of Alcohol and Drug Abuse Patient Records regulations: The Federal rules restrict any use of the information to criminally investigate or prosecute any alcohol or drug abuse patient.[facility] HospitalIn the event this information is protected by the Federal Confidentiality of Alcohol and Drug Abuse Patient Records regulations: The Federal rules restrict any use of the information to criminally investigate or prosecute any alcohol or drug abuse patient.[facility] HospitalIn the event this information is protected by the Federal Confidentiality of Alcohol and Drug Abuse Patient Records regulations: The Federal rules restrict any use of the information to criminally investigate or prosecute any alcohol or drug abuse patient.[facility] HospitalIn the event this information is protected by the Federal Confidentiality of Alcohol and Drug Abuse Patient Records regulations: The Federal rules restrict any use of the information to criminally investigate or prosecute any alcohol or drug abuse patient.[facility] HospitalIn the event this information is protected by the Federal Confidentiality of Alcohol and Drug Abuse Patient Records regulations: The Federal rules restrict any use of the information to criminally investigate or prosecute any alcohol or drug abuse patient.[facility] HospitalIn the event this information is protected by the Federal Confidentiality of Alcohol and Drug Abuse Patient Records regulations: The Federal rules restrict any use of the information to criminally investigate or prosecute any alcohol or drug abuse patient.[facility] HospitalIn the event this information is protected by the Federal Confidentiality of Alcohol and Drug Abuse Patient Records regulations: The Federal rules restrict any use of the information to criminally investigate or prosecute any alcohol or drug abuse patient.[facility] HospitalIn the event this information is protected by the Federal Confidentiality of Alcohol and Drug Abuse Patient Records regulations: The Federal rules restrict any use of the information to criminally investigate or prosecute any alcohol or drug abuse patient.[facility] HospitalIn the event this information is protected by the Federal Confidentiality of Alcohol and Drug Abuse Patient Records regulations: The Federal rules restrict any use of the information to criminally investigate or prosecute any alcohol or drug abuse patient.[facility] HospitalIn the event this information is protected by the Federal Confidentiality of Alcohol and Drug Abuse Patient Records regulations: The Federal rules restrict any use of the information to criminally investigate or prosecute any alcohol or drug abuse patient.[facility] HospitalIn the event this information is protected by the Federal Confidentiality of Alcohol and Drug Abuse Patient Records regulations: The Federal rules restrict any use of the information to criminally investigate or prosecute any alcohol or drug abuse patient.[facility] HospitalIn the event this information is protected by the Federal Confidentiality of Alcohol and Drug Abuse Patient Records regulations: The Federal rules restrict any use of the information to criminally investigate or prosecute any alcohol or drug abuse patient.[facility] HospitalIn the event this information is protected by the Federal Confidentiality of Alcohol and Drug Abuse Patient Records regulations: The Federal rules restrict any use of the information to criminally investigate or prosecute any alcohol or drug abuse patient.[facility] HospitalIn the event this information is protected by the Federal Confidentiality of Alcohol and Drug Abuse Patient Records regulations: The Federal rules restrict any use of the information to criminally investigate or prosecute any alcohol or drug abuse patient.[facility] HospitalIn the event this information is protected by the Federal Confidentiality of Alcohol and Drug Abuse Patient Records regulations: The Federal rules restrict any use of the information to criminally investigate or prosecute any alcohol or drug abuse patient.[facility] HospitalIn the event this information is protected by the Federal Confidentiality of Alcohol and Drug Abuse Patient Records regulations: The Federal rules restrict any use of the information to criminally investigate or prosecute any alcohol or drug abuse patient.[facility] HospitalIn the event this information is protected by the Federal Confidentiality of Alcohol and Drug Abuse Patient Records regulations: The Federal rules restrict any use of the information to criminally investigate or prosecute any alcohol or drug abuse patient.[facility] HospitalIn the event this information is protected by the Federal Confidentiality of Alcohol and Drug Abuse Patient Records regulations: The Federal rules restrict any use of the information to criminally investigate or prosecute any alcohol or drug abuse patient.[facility] HospitalIn the event this information is protected by the Federal Confidentiality of Alcohol and Drug Abuse Patient Records regulations: The Federal rules restrict any use of the information to criminally investigate or prosecute any alcohol or drug abuse patient.[facility] HospitalIn the event this information is protected by the Federal Confidentiality of Alcohol and Drug Abuse Patient Records regulations: The Federal rules restrict any use of the information to criminally investigate or prosecute any alcohol or drug abuse patient.[facility] HospitalIn the event this information is protected by the Federal Confidentiality of Alcohol and Drug Abuse Patient Records regulations: The Federal rules restrict any use of the information to criminally investigate or prosecute any alcohol or drug abuse patient.[facility] HospitalIn the event this information is protected by the Federal Confidentiality of Alcohol and Drug Abuse Patient Records regulations: The Federal rules restrict any use of the information to criminally investigate or prosecute any alcohol or drug abuse patient.[facility] HospitalIn the event this information is protected by the Federal Confidentiality of Alcohol and Drug Abuse Patient Records regulations: The Federal rules restrict any use of the information to criminally investigate or prosecute any alcohol or drug abuse patient.[facility] HospitalIn the event this information is protected by the Federal Confidentiality of Alcohol and Drug Abuse Patient Records regulations: The Federal rules restrict any use of the information to criminally investigate or prosecute any alcohol or drug abuse patient.[facility] HospitalIn the event this information is protected by the Federal Confidentiality of Alcohol and Drug Abuse Patient Records regulations: The Federal rules restrict any use of the information to criminally investigate or prosecute any alcohol or drug abuse patient.[facility] HospitalIn the event this information is protected by the Federal Confidentiality of Alcohol and Drug Abuse Patient Records regulations: The Federal rules restrict any use of the information to criminally investigate or prosecute any alcohol or drug abuse patient.[facility] HospitalIn the event this information is protected by the Federal Confidentiality of Alcohol and Drug Abuse Patient Records regulations: The Federal rules restrict any use of the information to criminally investigate or prosecute any alcohol or drug abuse patient.[facility] HospitalIn the event this information is protected by the Federal Confidentiality of Alcohol and Drug Abuse Patient Records regulations: The Federal rules restrict any use of the information to criminally investigate or prosecute any alcohol or drug abuse patient.[facility] HospitalIn the event this information is protected by the Federal Confidentiality of Alcohol and Drug Abuse Patient Records regulations: The Federal rules restrict any use of the information to criminally investigate or prosecute any alcohol or drug abuse patient.[facility] HospitalIn the event this information is protected by the Federal Confidentiality of Alcohol and Drug Abuse Patient Records regulations: The Federal rules restrict any use of the information to criminally investigate or prosecute any alcohol or drug abuse patient.[facility] HospitalIn the event this information is protected by the Federal Confidentiality of Alcohol and Drug Abuse Patient Records regulations: The Federal rules restrict any use of the information to criminally investigate or prosecute any alcohol or drug abuse patient.[facility] HospitalIn the event this information is protected by the Federal Confidentiality of Alcohol and Drug Abuse Patient Records regulations: The Federal rules restrict any use of the information to criminally investigate or prosecute any alcohol or drug abuse patient.[facility] HospitalIn the event this information is protected by the Federal Confidentiality of Alcohol and Drug Abuse Patient Records regulations: The Federal rules restrict any use of the information to criminally investigate or prosecute any alcohol or drug abuse patient.[facility] HospitalIn the event this information is protected by the Federal Confidentiality of Alcohol and Drug Abuse Patient Records regulations: The Federal rules restrict any use of the information to criminally investigate or prosecute any alcohol or drug abuse patient.[facility] HospitalIn the event this information is protected by the Federal Confidentiality of Alcohol and Drug Abuse Patient Records regulations: The Federal rules restrict any use of the information to criminally investigate or prosecute any alcohol or drug abuse patient.[facility] HospitalIn the event this information is protected by the Federal Confidentiality of Alcohol and Drug Abuse Patient Records regulations: The Federal rules restrict any use of the information to criminally investigate or prosecute any alcohol or drug abuse patient.[facility] HospitalIn the event this information is protected by the Federal Confidentiality of Alcohol and Drug Abuse Patient Records regulations: The Federal rules restrict any use of the information to criminally investigate or prosecute any alcohol or drug abuse patient.[facility] Reason for Visit (unrecogniz ed section and content) Reason Onset Date Comments Refill Request 04/06/2022 Reason Onset Date Comments Refill Request 04/25/2022 Reason Comments Left shoulder pain Reason Onset Date Comments Refill Request 05/09/2022 Reason Comments Consult Initial [facility] Pt Outr each Reason Comments Anxiety Reason Comments Consult [facility] Pt Outreach F/U Reason Comments Pain (Shoulder Pain) L Shoulder pain, sx 10/16 Reason Comments Future Appointment Reason Comments Appointment Reason Onset Date Comments Refill Request 06/27/2022 Reason Comments urinary symptoms Flank Pain Reason Comments ED Follow-up [facility] 07/27 urinary freq uency and pain Reason [...] [M54.2 (ICD-10-CM)] Procedures NEW RS PT SPINE Izabela Stephens, AUDIO VIDEO TECH.FINISHING AND SHIPPING SUPERVISOR [address] [place] [address] Hao Mcclellan, PT [address] [place] [address] Referral ID Status Reason Start Date Expiration Date Visits Re quested Visits Authorized [id number] Closed 11/26/2022 11/25/2023 1 1 Reason Comments [...] Reason Comments Pharmacist Call Reason Comments Cough Reason Comments Patient Update Drainage Reason Comments Follow Up Pilonidal cyst Care Teams (unrecognized sec tion and content) Preflight Inspector Relationship Specialty Start Date End Date Yassine Link MD [address] [id number] PCP - General 02/15/07 Florin Patel MD [address] [facility] [place] [address] Referring General Surgery 07/25/18 Bartolo Gonzalez MD [address] [place] [address] Referring General Surgery 09/24/19 Preflight Inspector Relationship Specialty Start Date End Date Yassine Link MD [address] [place] [address] PCP - General 02/15/07 Florin Patel MD [address] [facility] [place] [address] Referring General Surgery 07/25/18 Bartolo Gonzalez MD [address] [facility] [address] [place] [address] Referring General Surgery 09/24/19 Preflight Inspector Relationship Specialty Start Date End Date Yassine Link MD [address] [place] [address] PCP - General 02/15/07 Florin Patel MD [address] [facility] [place] [address] Referring General Surgery 07/25/18 Bartolo Gonzalez MD [address] [place] [address] Referring General Surgery 09/24/19 Preflight Inspector Relationship Specialty Start Date End Date Yassine Link MD [address] [place] [address] PCP - General 02/15/07 Florin Patel MD [address] [facility] [place] [address] Referring General Surgery 07/25/18 Bartolo Gonzalez MD [address] [facility] [address] [place] [address] Referring General Surgery 09/24/19 Preflight Inspector Relationship Specialty Start Date End Date Yassine Link MD [address] [place] [address] PCP - General 02/15/07 Florin Patel MD [address] [facility] [place] [address] Referring General Surgery 07/25/18 Bartolo Gonzalez MD [address] [facility] [address] [place] [address] Referring General Surgery 09/24/19 Preflight Inspector Relationship Specialty Start Date End Date Yassine Link MD [address] [place] [address] PCP - General 02/15/07 Florin Patel MD [address] [facility] [place] [address] Referring General Surgery 07/25/18 Bartolo Gonzalez MD [address] [place] [place] [address] [place] [address] Referring General Surgery 09/24/19 Preflight Inspector Relationship Specialty Start Date End Date Yassine Link MD [address] [place] [address] PCP - General 02/15/07 Florin Patel MD [address] [place] [address] Referring General Surgery 07/25/18 Bartolo Gonzalez MD [address] [facility] [address] [place] [address] Referring General Surgery 09/24/19 Preflight Inspector Relationship Specialty Start Date End Date Yassine Link MD [address] [place] [address] PCP - General 02/15/07 Florin Patel MD [address] [facility] [place] [address] Referring General Surgery 07/25/18 Bartolo Gonzalez MD [address] [facility] [address] [place] [address] Referring General Surgery 09/24/19 Preflight Inspector Relationship Specialty Start Date End Date Yassine Link MD [address] [place] [address] PCP - General 02/15/07 Florin Patel MD [address] [facility] [place] [address] Referring General Surgery 07/25/18 Bartolo Gonzalez MD [address] [facility] [address] [place] [address] Referring General Surgery 09/24/19 Preflight Inspector Relationship Specialty Start Date End Date Yassine Link MD [address] [place] [address] PCP - General 02/15/07 Florin Patel MD [address] [facility] [place] [address] Referring General Surgery 07/25/18 Bartolo Gonzalez MD [address] [place] [address] Referring General Surgery 09/24/19 Preflight Inspector Relationship Specialty Start Date End Date Yassine Link MD [address] [place] [address] PCP - General 02/15/07 Florin Patel MD [address] [facility] [place] [address] Referring General Surgery 07/25/18 Bartolo Gonzalez MD [address] [facility] [address] [place] [address] Referring General Surgery 09/24/19 Preflight Inspector Relationship Specialty Start Date End Date Yassine Link MD [address] [place] [address] PCP - General 02/15/07 Florin Patel MD [address] [facility] [place] [address] Referring General Surgery 07/25/18 Bartolo Gonzalez MD [address] [facility] [address] [place] [address] Referring General Surgery 09/24/19 Preflight Inspector Relationship Specialty Start Date End Date Yassine Link MD [address] [place] [address] PCP - General 02/15/07 Florin Patel MD [address] [facility] [place] [address] Referring General Surgery 07/25/18 Bartolo Gonzalez MD [address] [facility] [address] [place] [address] Referring General Surgery 09/24/19 Preflight Inspector Relationship Specialty Start Date End Date Yassine Link MD [address] [place] [address] PCP - General 02/15/07 Florin Patel MD [address] [facility] [place] [address] Referring General Surgery 07/25/18 Bartolo Gonzalez MD [address] [facility] [address] [place] [address] Referring General Surgery 09/24/19 Preflight Inspector Relationship Specialty Start Date End Date Yassine Link MD [address] [place] [address] PCP - General 02/15/07 Florin Patel MD [address] [facility] [place] [address] Referring General Surgery 07/25/18 Bartolo Gonzalez MD [address] [facility] [address] [place] [address] Referring General Surgery 09/24/19 Preflight Inspector Relationship Specialty Start Date End Date Yassine Link MD [address] [place] [address] PCP - General 02/15/07 Florin Patel MD [address] [facility] [place] [address] Referring General Surgery 07/25/18 Bartolo Gonzalez MD [address] [facility] [address] [place] [address] Referring General Surgery 09/24/19 Preflight Inspector Relationship Specialty Start Date End Date Yassine Link MD [address] [place] [address] PCP - General 02/15/07 Florin Patel MD [address] [facility] [place] [address] Referring General Surgery 07/25/18 Bartolo Gonzalez MD [address] [facility] [address] [place] [address] Referring General Surgery 09/24/19 Preflight Inspector Relationship Specialty Start Date End Date Yassine Link MD [address] [place] [address] PCP - General 02/15/07 Florin Patel MD [address] [facility] [place] [address] Referring General Surgery 07/25/18 Bartolo Gonzalez MD [address] [facility] [address] [place] [address] Referring General Surgery 09/24/19 Preflight Inspector Relationship Specialty Start Date End Date Yassine Link MD [address] [place] [address] PCP - General 02/15/07 Florin Patel MD [address] [facility] [place] [address] Referring General Surgery 07/25/18 Bartolo Gonzalez MD [address] [facility] [address] [place] [address] Referring General Surgery 09/24/19 Preflight Inspector Relationship Specialty Start Date End Date Yassine Link MD [address] [place] [address] PCP - General 02/15/07 Florin Patel MD [address] [facility] [place] [address] Referring General Surgery 07/25/18 Bartolo Gonzalez MD [address] [place] [address] Referring General Surgery 09/24/19 Preflight Inspector Relationship Specialty Start Date End Date Yassine Link MD [address] [place] [address] PCP - General 02/15/07 Florin Patel MD [address] [facility] [place] [address] Referring General Surgery 07/25/18 Bartolo Gonzalez MD [address] [place] [address] Referring General Surgery 09/24/19 Preflight Inspector Relationship Specialty Start Date End Date Yassine Link MD [address] [place] [address] PCP - General 02/15/07 Florin Patel MD [address] [facility] [place] [address] Referring General Surgery 07/25/18 Bartolo Gonzalez MD [address] [place] [address] Referring General Surgery 09/24/19 Preflight Inspector Relationship Specialty Start Date End Date Yassine Link MD [address] [place] [address] PCP - General 02/15/07 Florin Patel MD [address] [facility] [place] [address] Referring General Surgery 07/25/18 Bartolo Gonzalez MD [address] [facility] [address] [place] [address] Referring General Surgery 09/24/19 Preflight Inspector Relationship Specialty Start Date End Date Yassine Link MD [address] [place] [address] PCP - General 02/15/07 Florin Patel MD [address] [facility] [place] [address] Referring General Surgery 07/25/18 Bartolo Gonzalez MD [address] [facility] [address] [place] [address] Referring General Surgery 09/24/19 Preflight Inspector Relationship Specialty Start Date End Date Yassine Link MD [address] [place] [address] PCP - General 02/15/07 Florin Patel MD [address] [place] [address] Referring General Surgery 07/25/18 Bartolo Gonzalez MD [address] [facility] [address] [place] [address] Referring General Surgery 09/24/19 Preflight Inspector Relationship Specialty Start Date End Date Yassine Link MD [address] [place] [address] PCP - General 02/15/07 Florin Patel MD [address] [place] [address] Referring General Surgery 07/25/18 Bartolo Gonzalez MD [address] [place] [address] Referring General Surgery 09/24/19 Preflight Inspector Relationship Specialty Start Date End Date Yassine Link MD [address] [place] [address] PCP - General 02/15/07 Florin Patel MD [address] [place] [address] Referring General Surgery 07/25/18 Bartolo Gonzalez MD [address] [place] [address] Referring General Surgery 09/24/19 Preflight Inspector Relationship Specialty Start Date End Date Yassine Link MD [address] [place] [address] PCP - General 02/15/07 Florin Patel MD [address] [place] [address] Referring General Surgery 07/25/18 Bartolo Gonzalez MD [address] [place] [address] Referring General Surgery 09/24/19 Preflight Inspector Relationship Specialty Start Date End Date Yassine Link MD [address] [place] [address] PCP - General 02/15/07 Florin Patel MD [address] [place] [address] Referring General Surgery 07/25/18 Bartolo Gonzalez MD [address] [place] [address] Referring General Surgery 09/24/19 Preflight Inspector Relationship Specialty Start Date End Date Yassine Link MD [address] [place] [address] PCP - General 02/15/07 Florin Patel MD [address] [place] [place] [address] Referring General Surgery 07/25/18 Bartolo Gonzalez MD [address] [place] [address] Referring General Surgery 09/24/19 Preflight Inspector Relationship Specialty Start Date End Date Yassine Link MD [address] [place] [address] PCP - General 02/15/07 Florin Patel MD [address] [place] [place] [address] Referring General Surgery 07/25/18 Bartolo Gonzalez MD [address] [place] [address] Referring General Surgery 09/24/19 Preflight Inspector Relationship Specialty Start Date End Date Yassine Link MD [address] [place] [address] PCP - General 02/15/07 Florin Patel MD [address] [place], [place] [address] Referring General Surgery 07/25/18 Bartolo Gonzalez MD [address] [address] Referring General Surgery 09/24/19 FOR RECORDS PERTAINING [...] BE BASED ON THE PRIMARY CLINICAL RECORDS. [facility] [employer] [facility]. provides no warranty or guarantee of the accuracy or completeness of information in this document.
--- NOTE | 2024-01-05 10:44 | EDS_ITS ---
HPI History of Present Illness Chief Complaint: Wound Check Detail of Chief Complaint: Recent surgery on December 20 for a pilonidal cyst resection. Informant: patient Onset/Context/Timing Onset: Yesterday Context: Sudden Onset Timing: Continuous Current Severity: Mild Maximum Severity: Mild Narrative Narrative: 38-year-old female the pilonidal cyst incised and drained around late October in the emergency department. Followed up with Dr. Gertrude Henry of the [facility] and had a formal resection done at [facility] on December 20. She believes she may have torn the wound. She has an open wound that she has packed daily. She denies any bleeding. No pus. No fever. Just complaining of more pain. Prior similar symptoms: Yes Recent Illness/Hospitalization: No PFSH PFSH Medical History Anxiety Depression GERD (gastroesophageal reflux disease) H/O thoracic outlet syndrome IBS (irritable bowel syndrome) Left shoulder strain PTSD (post-traumatic stress disorder) Thoracic outlet syndrome Home Medications doxycycline monohydrate 100 mg capsule 100 mg PO BID #14 CAPSULES 11/19/23 [Rx Last Taken Unknown] estradiol 1 mg tablet 1 mg PO DAILY 11/19/23 [History Last Taken 11/19/23] estradiol 2 mg tablet 2 mg PO DAILY 11/19/23 [History Last Taken 11/19/23] hydrocodone-acetaminophen 5-325mg 5mg-325mg 1 tab PO Q4H PRN PRN Pain 1 day #4 TABLETS 11/19/23 [Rx Last Taken Unknown] sulfamethoxazole 800 mg-trimethoprim 160 mg tablet (Bactrim DS) 1 tab PO BID 10 days #20 tabs 12/08/23 [Rx Last Taken Unknown] hydrocodone-acetaminophen 5-325mg 5mg-325mg 1 tab PO Q6H PRN pain 5 days #20 tabs 12/22/23 [Rx Last Taken Unknown] oxycodone-acetaminophen 5 mg-325 mg tablet (Percocet) 1 tab PO Q8H PRN pain 3 days #10 tabs 01/05/24 [Rx Last Taken Unknown] Allergy/AdvReac Type Severity Reaction Status Date / Time benzonatate Allergy Rash Verified 12/23/23 15:11 [From Tessalon Perles] diazepam [From Valium] Allergy Hives Verified 12/23/23 15:11 morphine Allergy Itching Verified 12/23/23 15:11 Penicillins Allergy Hives Verified 12/23/23 15:11 venom-honey bee Allergy Hives Verified 12/23/23 15:11 [bee venom (honey bee)] Family History Father Heart disease Hypertension Myocardial infarction Mother Cancer lung, throat and Lupus Surgical History History of esophagogastroduodenoscopy (EGD) History of left oophorectomy S/P breast biopsy S/P colonoscopy Status post hysterectomy Social History household members: none Smoking Status: Current every day smoker tobacco type: cigarettes alcohol intake: current alcohol intake frequency: holidays/special occasions only substance use type: marijuana caffeine: Yes what type of physical activity do you participate in: none seatbelt use: sometimes do you feel safe at home: Yes additional social history: Boyfriend-Sha- Works at [employer] Patient works at [employer] ROS ROS ED ROS Narrative Denies recent illness. Review of Systems ROS Unobtainable: Denies due to encephalopathy Constitutional Constitutional ED: Denies chills or fever(s) Eyes Eyes: Denies blurry vision ENT ENT ED: Denies ear pain Cardiovascular Cardiovascular: Denies chest pain Respiratory/Chest Respiratory/Chest: Denies cough or dyspnea Gastrointestinal Gastrointestinal: Denies abdominal pain Genitourinary Genitourinary ED: Denies dysuria or hematuria Musculoskeletal Musculoskeletal: Denies arthralgias Integumentary Denies abscess Neurologic Neurologic: Denies headache(s) Psychiatric Psychiatric: Denies anxiety Endocrine Endocrinology: Denies cold intolerance Hematologic/Lymphatic Hematologic/Lymphatic: Reports none Allergic/Immunologic Allergic/Immunologic ED: Denies mouth swelling, tongue swelling or urticaria EXAM Physical Exam Narrative Exam Narrative: Well-appearing 38-year-old female. Vital signs stable afebrile. H EENT exam unremarkable. Neck nontender no lymphadenopathy. Lungs clear to auscultation bilaterally. Heart regular rhythm no murmur. Abdomen soft nontender. Back nontender. Her proximal end of her buttocks there is an open wound is probably 2 inches long by they at least an inch wide. It is clean and dry. There is no pus. No cellulitis. No drainage or bleeding. It looks dry and clean. Healing well. No signs of any new tear. Moving all 4 extremities. Neurologically she is awake and alert. Const Vital Signs: 01/05/24 09:57 Temperature 97.5 F L Temperature Source Temporal Pulse Rate 91 Respiratory Rate 16 Blood Pressure 110/70 Blood Pressure Mean 83 Pulse Ox 99 Oxygen Delivery Method Room Air Positive well nourished and well developed; Negative for cachectic, contractures or unkempt General Appearance ED: well developed and NAD; Negative for unkempt, cachectic, contractures, cyanotic, diaphoretic or pallor Nutritional Appearance: Negative for cachectic HEENT Reports moist mucous membranes; Denies dry mucous membranes Negative for trauma or tenderness Mouth ED: No dry mucous membranes Mouth: No dry mucous membranes Eyes PERRL and EOMs intact bilaterally General Eye ED: Negative for pale conjunctiva or scleral icterus Neck no lymphadenopathy, supple and no JVD General: Negative for tenderness Lymph Lymphatic: Negative for other Chest Wall inspection of chest normal and palpation of chest normal Chest: Negative for other Resp normal respiratory effort and clear to auscultation bilaterally Effort and Inspection: Negative for retractions Auscultation: Negative for rales, rhonchi or wheezes Cardio regular rate, regular rhythm, S1 normal heart sound, S2 normal heart sound and no murmurs Rate: Negative for bradycardia or tachycardic Rhythm: Negative for abnormal rhythm GI normal to inspection, nondistended, normoactive bowel sounds, non-tender, non- distended and no masses Inspection: Negative for abdominal distention Auscultation: normoactive bowel sounds Palpation: soft; Negative for tender or guarding Back/Spine no CVA tenderness Back/Spine Narrative: Well-healing surgical incision dry and clean on the proximal end of the buttock cleft. No pus. No bleeding. No signs of new tear. No cellulitis. No drainage or discharge. General Back: Negative for CVA tenderness Cervical Spine: Negative for cervical spine tenderness Thoracic Spine / Upper Back: Negative for thoracic spinal tenderness Lumbar Spine / Lower Back: lumbar spinal tenderness Extremity normal to inspection General Extremety ED: Negative for edema or tenderness General Extremity: Negative for edema Neuro oriented x3 and CN's II-XII intact bilaterally Sensorium / Orientation: alert; Negative for orientation impaired Motor Exam: strength 5/5 throughout Psych mental status grossly normal Appearance: Negative for unkempt Attitude: No agitated Mood & Affect: Negative for depressed, anxious or tearful Skin no rashes or lesions noted, no wounds and skin turgor normal General Skin Exam: elasticity normal; Negative for jaundice or pallor Lesions: No lesion noted Rashes: No rashes noted Trauma: Negative for abrasion Wounds: Negative for wounds noted MDM MDM MDM Narrative Medical decision making narrative: 38-year-old female status post pilonidal cyst resection on December 20. Was concerned she tore it in the last 24 hours. Clinically it is healing well. There is no signs of infection. She will be given 2 Percocet here for pain. A prescription for 7 and follow-up with Dr. Henry who she has an appointment with this week. History & Record Review Discussion w/independent historian: Patient Discharge Plan Triage Chief Complaint: Wound Check ED Provider: Christos Storm Dx/Rx/DC Orders Clinical Impression: Encounter for post surgical wound check, History of excision of pilonidal cyst Instructions: ED Post Op Wound Check, Pain Prescriptions: New oxycodone-acetaminophen [Percocet] 5-325 mg tablet 1 tab PO Q8H PRN (Reason: pain) 3 Days Qty: 10 0RF No Action estradiol 1 mg tablet 1 mg PO DAILY estradiol 2 mg tablet 2 mg PO DAILY doxycycline monohydrate 100 mg capsule 100 mg PO BID Qty: 14 0RF hydrocodone-acetaminophen [hydrocodone-acetaminophen] 5-325 mg tablet 1 tab PO Q4H PRN PRN (Reason: Pain) 1 Days Qty: 4 0RF sulfamethoxazole-trimethoprim [Bactrim DS] 800-160 mg tablet 1 tab PO BID 10 Days Qty: 20 0RF hydrocodone-acetaminophen 5-325 mg tablet 1 tab PO Q6H PRN (Reason: pain) 5 Days Qty: 20 0RF Primary Care Provider: Yassine Link Referrals: Gertrude Henry MD [Med Staff - Active Staff] - Keep Chris appointment Yassine Link MD [Primary Care Provider] - Activity Restrictions/Additional Instructions: Percocet and Motrin for pain. Keep your scheduled appointment with Dr. Gertrude Henry. Continue the wound care that you are currently doing it is healing well. Disposition Disposition: Home, Self Care
[2024-01-05] MEDS: Oxycodone/Apap 5/325 Tablet PO (10:53)
== END 2024-01-05 11:07 | disposition home or self-care (01) ==
PROVIDERS: Emergency Provider Emergency Medicine; PCP Internal Medicine; Visit Provider Emergency Medicine
DX: Z48.01 Encounter for change or removal of surgical wound dressing (principal); F17.210 Nicotine dependence, cigarettes, uncomplicated
CPT/HCPCS: 99282

== ENCOUNTER 2024-01-17 16:16 | Emergency (ER) | payer MEDICAID, SELFPAY ==
[2024-01-17 16:18] VITALS: BP 116/73; PULSE 84; RESP 16; TEMP 36.6; O2SAT 100; BMI 31.5
--- NOTE | 2024-01-17 16:38 | EX.ED.DYSGE1 ---
HPI History of Present Illness Chief Complaint: Wound Check Narrative Narrative: Patient presenting today due to concerns for infection from her surgical excision site of a pilonidal cyst. This was performed at [facility] on 12/[address] Henry. She reports that this morning she noticed increased redness around the incision site and increased pain. She reports that she did recently go back to work and wonders if that has something to do with it. She reports that she has had intermittent purulent discharge from the site and has not had more discharge than normal but has had some bloody discharge which is new. She denies any fevers or chills. She does not have a follow-up appointment with the surgeon for another month. [facility] Medical History Anxiety Depression GERD (gastroesophageal reflux disease) H/O thoracic outlet syndrome IBS (irritable bowel syndrome) Left shoulder strain PTSD (post-traumatic stress disorder) Thoracic outlet syndrome Home Medications doxycycline monohydrate 100 mg capsule 100 mg PO BID #14 CAPSULES 11/19/23 [Rx Last Taken Unknown] estradiol 1 mg tablet 1 mg PO DAILY 11/19/23 [History Last Taken 11/19/23] estradiol 2 mg tablet 2 mg PO DAILY 11/19/23 [History Last Taken 11/19/23] hydrocodone-acetaminophen 5-325mg 5mg-325mg 1 tab PO Q4H PRN PRN Pain 1 day #4 TABLETS 11/19/23 [Rx Last Taken Unknown] sulfamethoxazole 800 mg-trimethoprim 160 mg tablet (Bactrim DS) 1 tab PO BID 10 days #20 tabs 12/08/23 [Rx Last Taken Unknown] hydrocodone-acetaminophen 5-325mg 5mg-325mg 1 tab PO Q6H PRN pain 5 days #20 tabs 12/22/23 [Rx Last Taken Unknown] oxycodone-acetaminophen 5 mg-325 mg tablet (Percocet) 1 tab PO Q8H PRN pain 3 days #10 tabs 01/05/24 [Rx Last Taken Unknown] cephalexin 500 mg capsule 500 mg PO Q6 7 days #28 CAPSULES 01/17/24 [Rx Last Taken Unknown] nystatin 100,000 unit/gram topical powder 1 applic topical BID #15 grams 01/17/24 [Rx Last Taken Unknown] tramadol 50 mg tablet 50 mg PO Q8H PRN pain #20 tabs 01/17/24 [Rx Last Taken Unknown] Allergy/AdvReac Type Severity Reaction Status Date / Time benzonatate Allergy Rash Verified 01/17/24 16:17 [From Tessalon Perles] diazepam [From Valium] Allergy Hives Verified 01/17/24 16:17 morphine Allergy Itching Verified 01/17/24 16:17 Penicillins Allergy Hives Verified 01/17/24 16:17 venom-honey bee Allergy Hives Verified 01/17/24 16:17 [bee venom (honey bee)] Family History Father Heart disease Hypertension Myocardial infarction Mother Cancer lung, throat and Lupus Surgical History History of esophagogastroduodenoscopy (EGD) History of left oophorectomy S/P breast biopsy S/P colonoscopy Status post hysterectomy Social History household members: none Smoking Status: Current every day smoker tobacco type: cigarettes alcohol intake: current alcohol intake frequency: holidays/special occasions only substance use type: marijuana caffeine: Yes what type of physical activity do you participate in: none seatbelt use: sometimes do you feel safe at home: Yes additional social history: Boyfriend-Sha- Works at [employer] Patient works at [employer] ROS ROS ED Constitutional Constitutional ED: Denies chills or fever(s) Cardiovascular Cardiovascular: Denies chest pain Respiratory/Chest Respiratory/Chest: Denies cough or dyspnea Gastrointestinal Gastrointestinal: Denies abdominal pain, nausea or vomiting Musculoskeletal Musculoskeletal: Denies arthralgias or myalgias Integumentary Denies abscess Neurologic Neurologic: Denies weakness EXAM Physical Exam Const Vital Signs: 01/17/24 16:18 01/17/24 17:33 Temperature 97.8 F 97.8 F Temperature Source Temporal Pulse Rate 84 84 Respiratory Rate 16 16 Blood Pressure 116/73 116/73 Blood Pressure Mean 87 87 Pulse Ox 100 100 Oxygen Delivery Method Room Air Positive well nourished, well developed and no apparent distress General Appearance ED: well developed HEENT Reports normocephalic and head/scalp atraumatic Mouth ED: Yes moist mucous membranes normal Eyes PERRL and EOMs intact bilaterally Neck full ROM and supple Chest Wall inspection of chest normal Resp normal respiratory effort and clear to auscultation bilaterally Cardio regular rate and regular rhythm GI soft to palpation, non-tender, non-distended and no masses Back/Spine normal ROM and normal to inspection Extremity normal to inspection and full ROM Neuro oriented x3, CN's II-XII intact bilaterally, moves all extremities, no focal motor deficits and no sensory deficits noted Sensorium / Orientation: awake and alert Psych mental status grossly normal and thought process normal Skin no wounds Skin Narrative: Surgical incision was assessed. Minimal surrounding erythema, no warmth, fluctuance, or induration. No lymphangitic streaking. No purulent or bloody discharge. MDM MDM MDM Narrative Medical decision making narrative: Patient is nontoxic-appearing and in no acute distress. Vitals are unremarkable. She is presenting with concerns that there is an infection to her surgical incision site. There is minimal surrounding erythema, however this could also be chafing due to patient recently starting her new job. However, we will cover for infection with Keflex with first dose here. She will be given a prescription for nystatin powder to help prevent chafing. She will be given tramadol for pain to use as needed. I encouraged that she follow-up with Dr. Henry and she has been given return instructions. Discharged home in stable condition. Discharge Plan Triage Chief Complaint: Wound Check ED Midlevel Provider: Tori Suárez ED Provider: Carol Gillis Dx/Rx/DC Orders Clinical Impression: Encounter for post surgical wound check Instructions: ED Post Op Wound Check, General Prescriptions: New cephalexin 500 mg capsule 500 mg PO Q6 7 Days Qty: 28 0RF nystatin 100,000 unit/gram powder 1 applic topical BID Qty: 15 0RF tramadol 50 mg tablet 50 mg PO Q8H PRN (Reason: pain) Qty: 20 0RF No Action estradiol 1 mg tablet 1 mg PO DAILY estradiol 2 mg tablet 2 mg PO DAILY doxycycline monohydrate 100 mg capsule 100 mg PO BID Qty: 14 0RF hydrocodone-acetaminophen [hydrocodone-acetaminophen] 5-325 mg tablet 1 tab PO Q4H PRN PRN (Reason: Pain) 1 Days Qty: 4 0RF sulfamethoxazole-trimethoprim [Bactrim DS] 800-160 mg tablet 1 tab PO BID 10 Days Qty: 20 0RF hydrocodone-acetaminophen 5-325 mg tablet 1 tab PO Q6H PRN (Reason: pain) 5 Days Qty: 20 0RF oxycodone-acetaminophen [Percocet] 5-325 mg tablet 1 tab PO Q8H PRN (Reason: pain) 3 Days Qty: 10 0RF Primary Care Provider: Yassine Link Referrals: Yassine Link MD [Primary Care Provider] - Activity Restrictions/Additional Instructions: Please follow-up with Dr. Henry. Return for any worsening of your symptoms. Disposition Disposition: Home, Self Care Discharge Date/Time: 01/17/24 17:35
[2024-01-17] MEDS: Cephalexin 250 MG Capsule 500 MG PO (16:58)
[2024-01-17] MEDS: traMADol 50 MG Tablet 100 MG PO (16:58)
[2024-01-17] MEDS: Nystatin Powder 15gm Bottle 1 APPLIC TOPICAL (17:30)
[2024-01-17 17:33] VITALS: BP 116/73; PULSE 84; RESP 16; TEMP 36.6; O2SAT 100
== END 2024-01-17 17:35 | disposition home or self-care (01) ==
PROVIDERS: Emergency Provider Emergency Medicine; PCP Internal Medicine; Visit Provider Emergency Medicine
DX: Z48.01 Encounter for change or removal of surgical wound dressing (principal); F17.210 Nicotine dependence, cigarettes, uncomplicated
CPT/HCPCS: 99283

== ENCOUNTER 2024-02-11 13:36 | Emergency (ER) | payer MEDICAID, SELFPAY ==
[2024-02-11 13:38] VITALS: BP 118/85; PULSE 88; RESP 18; TEMP 36.6; O2SAT 100; BMI 32.4
[2024-02-11 13:42] VITALS: BP 118/85; PULSE 88; RESP 18; TEMP 36.6; O2SAT 100
--- NOTE | 2024-02-11 14:02 | EX.ED.DYSGE1 ---
HPI History of Present Illness Chief Complaint: Other, Pain/Inj Detail of Chief Complaint: Pain and swelling to surgical site at pilonidal cyst Informant: patient Narrative Narrative: Patient presents with pain and swelling to her buttocks x 3 days. She had surgery on December [address] Jorge for resection of pilonidal cyst. She then had to pack the wound and had delayed healing. Now comes in with increasing pain and swelling. She denies fevers or chills or sweats. PFSH PFS Medical History Anxiety Depression GERD (gastroesophageal reflux disease) H/O thoracic outlet syndrome IBS (irritable bowel syndrome) Left shoulder strain PTSD (post-traumatic stress disorder) Thoracic outlet syndrome Home Medications doxycycline monohydrate 100 mg capsule 100 mg PO BID #14 CAPSULES 11/19/23 [Rx Last Taken Unknown] estradiol 1 mg tablet 1 mg PO DAILY 11/19/23 [History Last Taken 11/19/23] estradiol 2 mg tablet 2 mg PO DAILY 11/19/23 [History Last Taken 11/19/23] hydrocodone-acetaminophen 5-325mg 5mg-325mg 1 tab PO Q4H PRN PRN Pain 1 day #4 TABLETS 11/19/23 [Rx Last Taken Unknown] sulfamethoxazole 800 mg-trimethoprim 160 mg tablet (Bactrim DS) 1 tab PO BID 10 days #20 tabs 12/08/23 [Rx Last Taken Unknown] hydrocodone-acetaminophen 5-325mg 5mg-325mg 1 tab PO Q6H PRN pain 5 days #20 tabs 12/22/23 [Rx Last Taken Unknown] oxycodone-acetaminophen 5 mg-325 mg tablet (Percocet) 1 tab PO Q8H PRN pain 3 days #10 tabs 01/05/24 [Rx Last Taken Unknown] cephalexin 500 mg capsule 500 mg PO Q6 7 days #28 CAPSULES 01/17/24 [Rx Last Taken Unknown] nystatin 100,000 unit/gram topical powder 1 applic topical BID #15 grams 01/17/24 [Rx Last Taken Unknown] tramadol 50 mg tablet 50 mg PO Q8H PRN pain #20 tabs 01/17/24 [Rx Last Taken Unknown] clindamycin HCl 300 mg capsule (Cleocin HCl) 300 mg PO Q6H #40 CAPSULES 02/11/24 [Rx Last Taken Unknown] hydrocodone-acetaminophen 5-325mg 5mg-325mg 1 tab PO Q4H PRN PRN Pain 2 days #10 TABLETS 02/11/24 [Rx Last Taken Unknown] Allergy/AdvReac Type Severity Reaction Status Date / Time benzonatate Allergy Rash Verified 02/11/24 13:42 [From Tessalon Perles] diazepam [From Valium] Allergy Hives Verified 02/11/24 13:42 morphine Allergy Itching Verified 02/11/24 13:42 Penicillins Allergy Hives Verified 02/11/24 13:42 venom-honey bee Allergy Hives Verified 02/11/24 13:42 [bee venom (honey bee)] Family History Father Heart disease Hypertension Myocardial infarction Mother Cancer lung, throat and Lupus Surgical History History of esophagogastroduodenoscopy (EGD) History of left oophorectomy S/P breast biopsy S/P colonoscopy Status post hysterectomy Social History household members: none Smoking Status: Current every day smoker tobacco type: cigarettes alcohol intake: current alcohol intake frequency: holidays/special occasions only substance use type: marijuana caffeine: Yes what type of physical activity do you participate in: none seatbelt use: sometimes do you feel safe at home: Yes additional social history: Boyfriend-Sha- Works at [employer] Patient works at [employer] ROS ROS ED Review of Systems ROS Unobtainable: other Constitutional Constitutional ED: Reports lethargy; Denies chills, fever(s), sweats or weight loss Eyes Eyes: Denies blurry vision, change in vision or diplopia ENT ENT ED: Denies rhinorrhea or sore throat Cardiovascular Cardiovascular: Reports chest pain and racing heartbeat; Denies orthopnea Respiratory/Chest Respiratory/Chest: Reports dyspnea and dyspnea on exertion; Denies cough, orthopnea or sputum Gastrointestinal Gastrointestinal: Denies abdominal pain, diarrhea, nausea or vomiting Genitourinary Genitourinary ED: Denies dysuria, hematuria or urinary frequency Musculoskeletal Musculoskeletal: Denies arthralgias, back pain, myalgias or neck pain Integumentary Reports other Details: Pain and swelling to pilonidal cyst area on buttocks ; Denies abscess, Abrasions or rash Neurologic Neurologic: Denies headache(s) or weakness Psychiatric Psychiatric: Denies anxiety, depression or suicidal thoughts Endocrine Endocrinology: Denies polydipsia, polyphagia or polyuria Hematologic/Lymphatic Hematologic/Lymphatic: Denies easy bleeding, easy bruising or lymphadenopathy Allergic/Immunologic Allergic/Immunologic ED: Denies mouth swelling, tongue swelling or urticaria EXAM Physical Exam Const Vital Signs: 02/11/24 13:38 02/11/24 13:42 02/11/24 13:57 Temperature 98 F 98 F Temperature Source Oral Temporal Pulse Rate 88 88 Respiratory Rate 18 18 Respiratory Effort Normal Respiratory Pattern Normal Blood Pressure 118/85 H 118/85 H Blood Pressure Mean 96 96 Pulse Ox 100 100 Oxygen Delivery Method Room Air Room Air Positive well nourished and well developed General Appearance ED: well developed and NAD HEENT Reports TM's clear and moist mucous membranes normocephalic and atraumatic; Negative for trauma or tenderness Tympanic Membrane ED: Yes TM's clear Eyes PERRL and EOMs intact bilaterally General Eye ED: Negative for pale conjunctiva or scleral icterus Neck no lymphadenopathy, supple and no JVD General: Negative for tenderness Chest Wall inspection of chest normal and palpation of chest normal Chest: Negative for tenderness Resp normal respiratory effort and clear to auscultation bilaterally Effort and Inspection: Negative for respiratory distress or pain with movement Auscultation: Negative for rhonchi, wheezes or diminished lung sounds Cardio regular rate, regular rhythm, S1 normal heart sound, S2 normal heart sound and no murmurs Peripheral Pulses: pulses 2+ throughout GI normal to inspection, nondistended, normoactive bowel sounds, soft to palpation, non-tender, non-distended and no masses GI Narrative: Patient has a healing laceration to gluteal cleft region where pilonidal cyst was excised. There is an area of faint erythema that is developed. No discrete abscess noted or induration. Back/Spine no CVA tenderness and no thoracic nor lumbar tenderness Extremity normal to inspection General Extremety ED: Negative for edema General Extremity: Negative for edema Neuro oriented x3, CN's II-XII intact bilaterally, no sensory deficits noted and gait normal Sensorium / Orientation: awake, alert, oriented to person, oriented to place and oriented to time Motor Exam: strength 5/5 throughout and strength abnormal Psych mental status grossly normal Skin no rashes or lesions noted and no wounds MDM MDM MDM Narrative Medical decision making narrative: Patient presented with pain around surgical site for pilonidal cyst. He describes some increased redness. I ordered lab work and a CT to evaluate further to rule out deep-seated infection or abscess. Although clinically I could not appreciate any obvious area of fluctuance or induration. Patient initially agreed but then apparently nurses had a difficult time obtaining an IV and now she is refusing blood work and refusing the CT scan. She is asking to just have some antibiotics and some pain medicine she will follow-up with Dr. Henry who is her surgeon of record. Patient understands I cannot rule out more deep-seated infection that may need a surgical procedure potentially or infection of the sacrum. Discharge Plan Triage Chief Complaint: Other, Pain/Inj ED Provider: Kathia Dean Dx/Rx/DC Orders Clinical Impression: Cellulitis Instructions: Cellulitis Dc Prescriptions: New clindamycin HCl [Cleocin HCl] 300 mg capsule 300 mg PO Q6H Qty: 40 0RF hydrocodone-acetaminophen [hydrocodone-acetaminophen] 5-325 mg tablet 1 tab PO Q4H PRN PRN (Reason: Pain) 2 Days Qty: 10 0RF No Action estradiol 1 mg tablet 1 mg PO DAILY estradiol 2 mg tablet 2 mg PO DAILY doxycycline monohydrate 100 mg capsule 100 mg PO BID Qty: 14 0RF hydrocodone-acetaminophen [hydrocodone-acetaminophen] 5-325 mg tablet 1 tab PO Q4H PRN PRN (Reason: Pain) 1 Days Qty: 4 0RF sulfamethoxazole-trimethoprim [Bactrim DS] 800-160 mg tablet 1 tab PO BID 10 Days Qty: 20 0RF hydrocodone-acetaminophen 5-325 mg tablet 1 tab PO Q6H PRN (Reason: pain) 5 Days Qty: 20 0RF oxycodone-acetaminophen [Percocet] 5-325 mg tablet 1 tab PO Q8H PRN (Reason: pain) 3 Days Qty: 10 0RF cephalexin 500 mg capsule 500 mg PO Q6 7 Days Qty: 28 0RF nystatin 100,000 unit/gram powder 1 applic topical BID Qty: 15 0RF tramadol 50 mg tablet 50 mg PO Q8H PRN (Reason: pain) Qty: 20 0RF Primary Care Provider: Yassine Link Referrals: Yassine Link MD [Primary Care Provider] - Activity Restrictions/Additional Instructions: Follow-up with Dr. Henry within the next 3 to 5 days for repeat evaluation. Return if fever, chills, sweats, increasing pain, swelling, or condition worsening way. Disposition Disposition: Home, Self Care
[2024-02-11] MEDS: HYDROcodone Bitartrate/Apap 5/325 Tablet PO (14:35)
[2024-02-11] MEDS: Clindamycin HCl 150 MG Capsule 300 MG PO (15:06)
[2024-02-11 15:08] VITALS: BP 120/76; PULSE 85; RESP 16; TEMP 36.3; O2SAT 99
== END 2024-02-11 15:09 | disposition home or self-care (01) ==
PROVIDERS: Emergency Provider Emergency Medicine; PCP Internal Medicine; Visit Provider Emergency Medicine
DX: L03.317 Cellulitis of buttock (principal); F12.90 Cannabis use, unspecified, uncomplicated; F17.210 Nicotine dependence, cigarettes, uncomplicated
CPT/HCPCS: 99284

== ENCOUNTER 2024-03-02 08:09 | Emergency (ER) | payer MEDICAID, SELFPAY ==
[2024-03-02 08:11] VITALS: BP 115/77; PULSE 78; RESP 14; TEMP 36.1; O2SAT 100; BMI 32.7
--- NOTE | 2024-03-02 08:47 | EX.ED.GENINJ ---
HPI History of Present Illness Chief Complaint: Fall Narrative Narrative: 38-year-old female presenting with nasal bone pain and mild headache with nausea. Patient had mechanical fall in the shower yesterday and states she hit her face which she would go. She did not lose consciousness. She was able to get back up and ambulate. She complains of some mild nausea overnight. She complains of nasal bone pain but has not any epistaxis. She does not have any swelling. She has been using ice and Tylenol. Denies any projectile vomiting. She is able to ambulate with stable gait. No fevers or chills. No visual complaints. [facility] Medical History Anxiety Depression GERD (gastroesophageal reflux disease) H/O thoracic outlet syndrome IBS (irritable bowel syndrome) Left shoulder strain PTSD (post-traumatic stress disorder) Thoracic outlet syndrome Home Medications estradiol 1 mg tablet 1 mg PO DAILY 11/19/23 [History Last Taken 11/19/23] estradiol 2 mg tablet 2 mg PO DAILY 11/19/23 [History Last Taken 11/19/23] ondansetron 4 mg disintegrating tablet 4 mg PO Q8H PRN PRN Nausea #14 tabs 03/02/24 [Rx Last Taken Unknown] Allergy/AdvReac Type Severity Reaction Status Date / Time benzonatate Allergy Rash Verified 03/02/24 08:10 [From Tessalon Perles] diazepam [From Valium] Allergy Hives Verified 03/02/24 08:10 morphine Allergy Itching Verified 03/02/24 08:10 Penicillins Allergy Hives Verified 03/02/24 08:10 venom-honey bee Allergy Hives Verified 03/02/24 08:10 [bee venom (honey bee)] Family History Father Heart disease Hypertension Myocardial infarction Mother Cancer lung, throat and Lupus Surgical History History of esophagogastroduodenoscopy (EGD) History of left oophorectomy S/P breast biopsy S/P colonoscopy Status post hysterectomy Social History household members: none Smoking Status: Current every day smoker tobacco type: cigarettes alcohol intake: current alcohol intake frequency: holidays/special occasions only substance use type: marijuana caffeine: Yes what type of physical activity do you participate in: none seatbelt use: sometimes do you feel safe at home: Yes additional social history: Boyfriend-Sha- Works at [employer] Patient works at [employer] ROS ROS ED Constitutional Constitutional ED: Denies chills, fever(s) or sweats Eyes Eyes: Denies blurry vision or change in vision ENT ENT ED: Reports other Details: Nasal bone pain ; Denies ear pain or sore throat Cardiovascular Cardiovascular: Denies chest pain, palpitations or racing heartbeat Respiratory/Chest Respiratory/Chest: Denies cough, dyspnea or sputum Gastrointestinal Gastrointestinal: Reports nausea; Denies abdominal pain, constipation, diarrhea or vomiting Genitourinary Genitourinary ED: Denies dysuria, hematuria or urinary frequency Musculoskeletal Musculoskeletal: Denies arthralgias, myalgias or neck pain Integumentary Denies abscess, Abrasions or rash Neurologic Neurologic: Denies headache(s), paresthesias or weakness Psychiatric Psychiatric: Denies anxiety, depression, suicidal ideation or suicidal thoughts Endocrine Endocrinology: Denies polydipsia or polyuria EXAM Physical Exam Const Vital Signs: 03/02/24 08:11 03/02/24 08:14 Temperature 97 F L Temperature Source Temporal Pulse Rate 78 Respiratory Rate 14 Respiratory Effort Normal Respiratory Depth Normal Respiratory Pattern Normal Blood Pressure 115/77 Blood Pressure Mean 89 Pulse Ox 100 Oxygen Delivery Method Room Air Room Air Positive well nourished General Appearance ED: NAD HEENT HEENT Narrative: Mild tenderness over glabella. Nasal bone midline. No nasal septal hematoma. No epistaxis. atraumatic Eyes PERRL and EOMs intact bilaterally Resp normal respiratory effort Auscultation: Negative for rales, rhonchi or wheezes Back/Spine Back/Spine Narrative: No midline cervical spinal tenderness, deformity, step-off. Neuro CN's II-XII intact bilaterally Sensorium / Orientation: alert Motor Exam: strength 5/5 throughout Skin no rashes or lesions noted MDM MDM MDM Narrative Medical decision making narrative: Patient presenting with mild nausea and pain over her nasal bone. She has a mild headache as well. I suspect she has a nasal bone contusion versus fracture but there is no deformity and her nasal septum is midline we discussed imaging however I do not think there is much benefit and she already sees ENT so I recommend she follow-up for that. I do not believe she needs a CT of her brain or facial bones. She agrees. Patient counseled use Tylenol and ibuprofen at home for pain. She is to continue to use ice on this area. She was offered a work note but states she does not need 1. She did request something for nausea and I gave her Zofran here and a prescription for home and I suspect she might have a mild concussion based on her symptoms. She agrees. She is discharged home in stable condition. Impression: 1. Mechanical fall 2. Closed head injury 3. Mild concussion 4. Nasal bone contusion Lab Data Attestation: I reviewed the patient's lab results. Discharge Plan Triage Chief Complaint: Fall ED Provider: Henry Ivan Dx/Rx/DC Orders Instructions: ED Concussion, ED NASAL CONTUSION vs FX No X-ray Prescriptions: New ondansetron 4 mg tablet,disintegrating 4 mg PO Q8H PRN PRN (Reason: Nausea) Qty: 14 0RF No Action estradiol 1 mg tablet 1 mg PO DAILY estradiol 2 mg tablet 2 mg PO DAILY Primary Care Provider: Yassine Link Referrals: Jesús Awan MD [Non-Staff] - As soon as possible Yassine Link MD [Primary Care Provider] - Disposition Disposition: Home, Self Care
[2024-03-02] MEDS: Ondansetron ODT 4 MG Tablet PO (08:52)
== END 2024-03-02 08:54 | disposition home or self-care (01) ==
LOC: ED 08:50
PROVIDERS: Emergency Provider Student in an Organized Health Care Education/Training Program; PCP Internal Medicine; Visit Provider Student in an Organized Health Care Education/Training Program
DX: S06.0X0A Concussion without loss of consciousness, initial encounter (principal); S00.33XA Contusion of nose, initial encounter; F12.90 Cannabis use, unspecified, uncomplicated; F17.210 Nicotine dependence, cigarettes, uncomplicated; Z79.899 Other long term (current) drug therapy; W19.XXXA Unspecified fall, initial encounter
CPT/HCPCS: 99282

== ENCOUNTER 2024-04-25 11:52 | Emergency (ER) | payer MEDICAID, SELFPAY ==
[2024-04-25 11:52] VITALS: BP 133/100; PULSE 75; RESP 18; TEMP 36.1; O2SAT 100
--- NOTE | 2024-04-25 12:19 | EDS_ITS ---
HPI <ARMANDO Rothman - Last Filed: 04/25/24 14:27> History of Present Illness Chief Complaint: Lower Extremity Injury Narrative Narrative: Patient presenting today with pain in her right hip that radiates to her right lower back and right lateral thigh that started 5 days ago. She saw her PCP yesterday who diagnosed her with bursitis and placed her on a Medrol Dosepak and gave her a dose of IM Toradol. She reports that these have not relieved her sy mptoms, she is also taking ibuprofen for the pain. She does work at a job that requires her to do a lot of standing which seems to aggravate the pain. She denies any injury to her hip or back. No history of blood clots or recent surgery/procedures/travel/immobilization. PFSH <ARMANDO Rothman - Last Filed: 04/25/24 14:27> [facility] Medical History PTSD (post-traumatic stress disorder) Left shoulder strain H/O thoracic outlet syndrome Thoracic outlet syndrome IBS (irritable bowel syndrome) GERD (gastroesophageal reflux disease) Anxiety Depression Home Medications ?Medication ?Instructions ?Recorded ?Last Taken ?Type estradiol 1 mg tablet 1 mg PO DAILY 11/19/23 11/19/23 History estradiol 2 mg tablet 2 mg PO DAILY 11/19/23 11/19/23 History ondansetron 4 mg disintegrating 4 mg PO Q8H PRN PRN Nausea #14 tabs 03/02/24 Unknown Rx tablet hydrocodone-acetaminophen 5-325mg 1 tab PO Q4H PRN PRN Pain 3 days 04/25/24 Unknown Rx 5mg-325mg #7 TABLETS Allergy/AdvReac Type Severity Reaction Status Date / Time benzonatate (From Tessalon Allergy Rash Verified 04/25/24 11:53 Perles) diazepam (From Valium) Allergy Hives Verified 04/25/24 11:53 morphine Allergy Itching Verified 04/25/24 11:53 Penicillins Allergy Hives Verified 04/25/24 11:53 venom-honey bee (bee venom Allergy Hives Verified 04/25/24 11:53 (honey bee)) Family History Father Heart disease Hypertension Myocardial infarction Mother Cancer lung, throat and Lupus Surgical History History of left oophorectomy S/P breast biopsy History of esophagogastroduodenoscopy (EGD) S/P colonoscopy Status post hysterectomy Social History household members: none Smoking Status: Current every day smoker tobacco type: cigarettes alcohol intake: current alcohol intake frequency: holidays/special occasions only substance use type: marijuana caffeine: Yes what type of physical activity do you participate in: none seatbelt use: sometimes do you feel safe at home: Yes additional social history: Boyfriend-Sha- Works at [employer] Patient works at [employer] ROS <ARMANDO Rothman - Last Filed: 04/25/24 14:27> ROS ED Constitutional Constitutional ED: Denies chills or fever(s) Cardiovascular Cardiovascular: Denies chest pain Respiratory/Chest Respiratory/Chest: Denies dyspnea Gastrointestinal Gastrointestinal: Denies abdominal pain, nausea or vomiting Genitourinary Genitourinary ED: Denies dysuria Musculoskeletal Musculoskeletal: Reports arthralgias, back pain and myalgias Integumentary Denies rash Neurologic Neurologic: Denies paresthesias EXAM <ARMANDO Rothman - Last Filed: 04/25/24 14:27> Physical Exam Const Vital Signs: 04/25/24 11:52 04/25/24 13:43 Temperature 96.9 F L 97.9 F Temperature Source Temporal Pulse Rate 75 84 Respiratory Rate 18 16 Blood Pressure 133/100 H 130/68 H Blood Pressure Mean 111 88 Pulse Ox 100 99 Oxygen Delivery Method Room Air Positive well nourished, well developed and no apparent distress General Appearance ED: well developed HEENT Reports normocephalic and head/scalp atraumatic Mouth ED: Yes moist mucous membranes normal Eyes PERRL and EOMs intact bilaterally Neck full ROM and supple Chest Wall inspection of chest normal Resp normal respiratory effort and clear to auscultation bilaterally Cardio regular rate and regular rhythm GI soft to palpation, non-tender, non-distended and no masses Back/Spine normal ROM and normal to inspection Back/Spine Narrative: Tenderness to the right flank and lumbar paraspinal muscles Thoracic Spine / Upper Back: Negative for thoracic spinal tenderness Lumbar Spine / Lower Back: Negative for lumbar spinal tenderness Extremity normal to inspection and full ROM Extremity Narrative: Pain to palpation to the right greater trochanter and right lateral thigh. Negative logroll on the right, full range of motion to the right hip without pain. Right DP pulse 2+, good capillary refill, sensation intact. Neuro oriented x3, CN's II-XII intact bilaterally, moves all extremities, no focal motor deficits and no sensory deficits noted Sensorium / Orientation: awake and alert Psych mental status grossly normal and thought process normal Skin no rashes or lesions noted and no wounds <Dr. Miley Blanco DO - Last Filed: 04/30/24 08:18> Physical Exam Const Vital Signs: 04/25/24 11:52 04/25/24 13:43 Temperature 96.9 F L 97.9 F Temperature Source Temporal Pulse Rate 75 84 Respiratory Rate 18 16 Blood Pressure 133/100 H 130/68 H Blood Pressure Mean 111 88 Pulse Ox 100 99 Oxygen Delivery Method Room Air MDM <ARMANDO Rothman - Last Filed: 04/25/24 14:27> [facility] MDM Narrative Medical decision making narrative: Patient presenting today with right hip pain that radiates down the lateral aspect of her right thigh into her left lower back that started about 5 days ago. Her pain is reproducible with palpation. She saw her PCP yesterday. She has been taking ibuprofen and a Medrol Dosepak with minimal relief. Examination does not appear consistent with a DVT. She is able to ambulate without difficulty. X-ray of the right hip obtained and does not show any acute findings. She was given a Harrison here and will be given a short course of Harrison for home. I have also encouraged ibuprofen. This is likely a muscular strain. She will be given a work note and discharged home in stable condition. RICE instructions discussed. Radiography X-Ray: Read by ED Physician Diagnostic Testing: Clinical Impression(s) from Imaging Studies Hip/Pelvis X-Ray 04/25/24 12:20 IMPRESSION: Normal x-ray examination of the pelvis and hip. Electronically Signed: Willy Hilliard MD at 12:42 EDT , <Dr. Miley Blanco, DO - Last Filed: 04/30/24 08:18> [facility] MDM Narrative Medical decision making narrative: Patient presenting today with right hip pain that radiates down the lateral aspect of her right thigh into her left lower back that started about 5 days ago. Her pain is reproducible with palpation. She saw her PCP yesterday. She has been taking ibuprofen and a Medrol Dosepak with minimal relief. Examination does not appear consistent with a DVT. She is able to ambulate without difficulty. X-ray of the right hip obtained and does not show any acute findings. She was given a Harrison here and will be given a short course of Harrison for home. I have also encouraged ibuprofen. This is likely a muscular strain. She will be given a work note and discharged home in stable condition. RICE instructions discussed. I have personally performed a face to face assessment of the patient and have reviewed the PAULINE Note. I performed a substantive portion of the visit including all aspects of the following. My lo findings include: History is Patient is a 38-year-old female with history of thoracic outlet syndrome presenting with worsening right hip pain. She denies any trauma. It is exacerbated by her work where she stands on her feet as well as movement. Denies any swelling of her legs. Saw her primary care doctor for this pain and was prescribed Medrol Dosepak with minimal relief. She has good distal pulses. No edema of the leg. No history of DVT or PE and I do not suspect a DVT and I do not think she needs a venous duplex at this time. Strays obtained and reviewed by myself as well as radiology. Does not show any acute fracture or dislocation. Is given a short course of Harrison for further pain control as well as a work note. She does not have any focal neurologic deficits and I do not think requires more emergent imaging. No trauma or midline tenderness of the spine. She is not having a fever and does not have short arc range of motion pain so low suspicion for septic arthritis. Other additions or changes: [None] Radiography Diagnostic Testing: Clinical Impression(s) from Imaging Studies Hip/Pelvis X-Ray 04/25/24 12:20 IMPRESSION: Normal x-ray examination of the pelvis and hip. Electronically Signed: Willy Hilliard MD at 12:42 EDT , Discharge Plan Triage Chief Complaint: Lower Extremity Injury ED Midlevel Provider: Tori Suárez ED Provider: Miley Blanco Dx/Rx/DC Orders Clinical Impression: Hip pain, right, Low back strain Instructions: ED Back Sprain/Strain, ED Hip Strain Prescriptions: New hydrocodone-acetaminophen 5-325 mg tablet 1 tab PO Q4H PRN PRN (Reason: Pain) 3 Days Qty: 7 0RF No Action estradiol 1 mg tablet 1 mg PO DAILY estradiol 2 mg tablet 2 mg PO DAILY ondansetron 4 mg tablet,disintegrating 4 mg PO Q8H PRN PRN (Reason: Nausea) Qty: 14 0RF Stand Alone Forms: ED Work / School Excuse Primary Care Provider: Yassine Link Referrals: Yassine Link MD [Primary Care Provider] - 5-7 Days Activity Restrictions/Additional Instructions: Follow-up with your PCP and return for any worsening of your symptoms. You could also take ibuprofen for your pain as needed. Print Language: British Disposition Disposition: Home, Self Care Discharge Date/Time: 04/25/24 13:44
--- NOTE | 2024-04-25 12:20 | RAD_ITS ---
STUDY: X-RAY - PELVIS AND RIGHT HIP REASON FOR EXAM: Female, 38 years old. Right hip pain. TECHNIQUE: 3 views of the pelvis and hip. COMPARISON: None. FINDINGS: There is a non-specific bowel gas pattern. Normal visualized soft tissue structures. Normal bilateral iliac wings, sacroiliac joints and visualized sacrum. Normal bilateral superior and inferior pubic rami. Normal pubic symphysis. Normal bilateral ischial tuberosities. Normal visualized femoral head. Normal acetabulum. Normal hip joint. RAD/HIP, UNI W/ Pelvis 2-3 Views IMPRESSION: Normal x-ray examination of the pelvis and hip. Electronically Signed: Willy Hilliard MD at 12:42 EDT ,
[2024-04-25] MEDS: HYDROcodone Bitartrate/Apap 5/325 Tablet PO (13:36)
[2024-04-25 13:43] VITALS: BP 130/68; PULSE 84; RESP 16; TEMP 36.6; O2SAT 99
== END 2024-04-25 13:44 | disposition home or self-care (01) ==
PROVIDERS: Emergency Provider Emergency Medicine; PCP Internal Medicine; Visit Provider Emergency Medicine
DX: M25.551 Pain in right hip (principal); S39.012A Strain of muscle, fascia and tendon of lower back, initial encounter; X58.XXXA Exposure to other specified factors, initial encounter; F17.210 Nicotine dependence, cigarettes, uncomplicated
CPT/HCPCS: 73502; 99282

== ENCOUNTER 2024-06-08 09:00 | Emergency (ER) | payer MEDICAID, SELFPAY ==
[2024-06-08 09:02] VITALS: BP 118/81; PULSE 88; RESP 18; TEMP 36.6; O2SAT 98
[2024-06-08 09:04] VITALS: BMI 32.2
--- NOTE | 2024-06-08 09:28 | CT_ITS ---
EXAM: CT HEAD WITHOUT INTRAVENOUS CONTRAST CLINICAL INDICATION: Trauma pain. TECHNIQUE: Multiple axial images were obtained of the head without intravenous contrast. This CT exam was performed using one or more of the following dose reduction techniques: automated exposure control, adjustment of the mA and/or kV according to patient size, and/or use of iterative reconstruction technique. COMPARISON: No relevant prior studies available. FINDINGS: BRAIN AND EXTRA-AXIAL SPACES: No significant abnormality. No intra- or extra-axial hemorrhage. No evidence of acute infarct. No intracranial mass or mass effect. There is preservation of the zhao/white matter interface. Ventricles are appropriate for age. Basal cisterns are patent. BONES/JOINTS: No significant abnormality. No discrete lytic or blastic abnormalities. SINUSES: No significant findings. MASTOID AIR CELLS: No significant effusion. ORBITS: No acute findings. CT/Brain/Head without Contrast IMPRESSION: Negative head/brain CT without intravenous contrast. Electronically Signed: Wilton Bennett DO at 10:31 EDT ,
--- NOTE | 2024-06-08 09:29 | ED.VIS.FALL ---
HPI HPI - Fall History of Present Illness Chief Complaint: Fall Narrative Narrative: 38-year-old female past medical history of asthma, states she takes estrogen for hormone replacement presents status post fall in the shower about an hour ago. She relates history that a month or so ago he had fallen in the shower previously. She gets hot flashes which makes her lightheaded. She was in the shower today, and fell forward. She tried to brace herself with her right hand, but hit her forehead against the tile. She now complains of forehead pain and headache and right wrist pain. She is right-hand dominant. She denies loss of consciousness. She took ibuprofen 800 mg without relief. She denies other injury. [facility] Medical History PTSD (post-traumatic stress disorder) Left shoulder strain H/O thoracic outlet syndrome Thoracic outlet syndrome IBS (irritable bowel syndrome) GERD (gastroesophageal reflux disease) Anxiety Depression Home Medications ?Medication ?Instructions ?Recorded ?Last Taken ?Type estradiol 1 mg tablet 1 mg PO DAILY 11/19/23 11/19/23 History estradiol 2 mg tablet 2 mg PO DAILY 11/19/23 11/19/23 History ondansetron 4 mg disintegrating 4 mg PO Q8H PRN PRN Nausea #14 tabs 03/02/24 Unknown Rx tablet hydrocodone-acetaminophen 5-325mg 1 tab PO Q4H PRN PRN Pain 3 days 04/25/24 Unknown Rx 5mg-325mg #7 TABLETS Allergy/AdvReac Type Severity Reaction Status Date / Time benzonatate (From Tessalon Allergy Rash Verified 06/08/24 09:05 Perlember) diazepam (From Valium) Allergy Hives Verified 06/08/24 09:05 morphine Allergy Itching Verified 06/08/24 09:05 Penicillins Allergy Hives Verified 06/08/24 09:05 venom-honey bee (bee venom Allergy Hives Verified 06/08/24 09:05 (honey bee)) Family History Father Heart disease Hypertension Myocardial infarction Mother Cancer lung, throat and Lupus Surgical History History of left oophorectomy S/P breast biopsy History of esophagogastroduodenoscopy (EGD) S/P colonoscopy Status post hysterectomy Social History household members: none Smoking Status: Current every day smoker tobacco type: cigarettes alcohol intake: current alcohol intake frequency: holidays/special occasions only substance use type: marijuana caffeine: Yes what type of physical activity do you participate in: none seatbelt use: sometimes do you feel safe at home: Yes additional social history: Boyfriend-Sha- Works at [employer] Patient works at [employer] ROS ED ROS Narrative Constitutional: No fever, no chills. HEENT: No sore throat. No neck pain. No loss of vision. No rhinorrhea. Positive knot on forehead. Cardiovascular: No chest pain. No palpitations. No pedal edema. Respiratory: No cough, no shortness of breath. Abdominal: No abdominal pain. No nausea. No vomiting. Genitourinary: No dysuria. No hematuria. Musculoskeletal: No myalgias. Right wrist pain/injury/arthralgia. Neurologic: No headaches. No dizziness. No lightheadedness. Skin: No rash. No change in color. Psychiatric: No depression. No anxiety. EXAM Physical Exam Narrative Exam Narrative: GCS 15. ABCs intact. Afebrile. Vital signs noted. There is mild hematoma and tenderness to palpation of the midline forehead. Neck soft and supple without vertebral point tenderness or bony step-off. Full range of motion. PERRL, EOMI. Cardiovascular examination reveals a regular rate and rhythm. Lungs are clear to auscultation bilaterally. Abdomen soft nontender with normoactive bowel sounds. Able to ambulate in the emergency department. Musculoskeletal examination reveals palpable radial pulse on the right. Diffuse tenderness to palpation throughout the distal radius and ulna. No pain at radial head or elbow. Able to flex and extend right elbow. Neurovascular intact distally to wrist. Able to abduct and abduct fingers. Able to oppose thumb. Const Vital Signs: 06/08/24 09:02 06/08/24 09:13 Temperature 97.9 F Temperature Source Temporal Pulse Rate 88 Respiratory Rate 18 Respiratory Effort Normal Respiratory Depth Normal Respiratory Pattern Normal Blood Pressure 118/81 H Blood Pressure Mean 93 Pulse Ox 98 Oxygen Delivery Method Room Air Room Air MDM MDM MDM Narrative Medical decision making narrative: Differential diagnosis includes but not limited to closed head injury versus intracranial hemorrhage. Patient does not take blood thinners however, and there was no loss of consciousness. CT will be obtained to rule out skull fracture or intracranial hemorrhage. Regarding her wrist, she may have more of a right wrist sprain versus fracture. She was given an ice pack for comfort and x-rays of the right wrist will be obtained in 3 views and interpreted by myself independently. X-rays of the right wrist interpreted by myself shows no evidence of acute fracture. I reviewed the radiology report which confirms my independent interpretation comments on soft tissue swelling. I feel this is more consistent with sprain. She will be placed in a Velcro cock up wrist splint and continue ice and elevation and gyuk-zth-kwmosas medications at home. I reviewed the radiology report of the CT of the brain which shows no evidence of acute fracture or intracranial hemorrhage. At this point in time, I feel she be discharged to follow-up with her primary care provider. She was given closed head injury instructions. Return instructions to the emergency department were reviewed. Disposition is discharged home in stable condition. History & Record Review Discussion w/independent historian: Patient Additional record(s) reviewed:: Prior ED visit Lab Data Attestation: I reviewed the patient's lab results. Radiography Diagnostic Testing: Clinical Impression(s) from Imaging Studies Brain CT 06/08/24 09:28 IMPRESSION: Negative head/brain CT without intravenous contrast. Electronically Signed: Wilton Bennett DO at 10:31 EDT , Wrist X-Ray 06/08/24 09:35 IMPRESSION: Mild soft tissue swelling at the wrist. No acute osseous findings. Electronically Signed: Wilton Bennett DO at 10:35 EDT , Discharge Plan Triage Chief Complaint: Fall ED Provider: Pk Churchill Dx/Rx/DC Orders Clinical Impression: Fall in shower, Traumatic hematoma of forehead, Right wrist sprain Instructions: ED Head Injury (Adult), ED Hematoma, ED Wrist Sprain Prescriptions: No Action estradiol 1 mg tablet 1 mg PO DAILY estradiol 2 mg tablet 2 mg PO DAILY hydrocodone-acetaminophen 5-325 mg tablet 1 tab PO Q4H PRN PRN (Reason: Pain) 3 Days Qty: 7 0RF ondansetron 4 mg tablet,disintegrating 4 mg PO Q8H PRN PRN (Reason: Nausea) Qty: 14 0RF Stand Alone Forms: ED Work / School Excuse Primary Care Provider: Yassine Link Referrals: Yassine Link MD [Primary Care Provider] - 1 Week if not improving Print Language: Iranian Disposition Disposition: Home, Self Care
--- NOTE | 2024-06-08 09:35 | RAD_ITS ---
EXAM: XR RIGHT WRIST COMPLETE, 3 OR MORE VIEWS CLINICAL INDICATION: Trauma. Pain. TECHNIQUE: Frontal, lateral and oblique views of the right wrist. COMPARISON: No relevant prior studies available. FINDINGS: BONES/JOINTS: No significant abnormality. No acute fracture. No subluxation. Normal alignment. Preservation of the joint space. No sclerotic or destructive changes observed. SOFT TISSUES: Mild soft tissue swelling at the wrist. No radiopaque foreign body. RAD/Wrist min 3 Views IMPRESSION: Mild soft tissue swelling at the wrist. No acute osseous findings. Electronically Signed: Wilton Bennett DO at 10:35 EDT ,
[2024-06-08 11:32] VITALS: BP 121/89; PULSE 87; RESP 16; TEMP 36.5; O2SAT 99
== END 2024-06-08 11:33 | disposition home or self-care (01) ==
PROVIDERS: Emergency Provider Emergency Medicine; PCP Internal Medicine; Visit Provider Emergency Medicine
DX: S00.83XA Contusion of other part of head, initial encounter (principal); S63.501A Unspecified sprain of right wrist, initial encounter; W18.2XXA Fall in (into) shower or empty bathtub, initial encounter; F17.210 Nicotine dependence, cigarettes, uncomplicated
CPT/HCPCS: 70450; 73110; 99283

== ENCOUNTER 2025-01-15 13:18 | Emergency (ER) | payer MEDICAID, SELFPAY ==
[2025-01-15 13:19] VITALS: BP 104/64; PULSE 91; RESP 16; TEMP 36.6; O2SAT 99; BMI 28.6
== END 2025-01-15 17:00 | disposition left against medical advice (07) ==
LOC: ED 17:15
PROVIDERS: PCP Internal Medicine
DX: Z53.21 Procedure and treatment not carried out due to patient leaving prior to being seen by health care provider (principal)

== ENCOUNTER → 2025-01-20 | Outpatient (CLI) | payer MEDICAID, SELFPAY ==
--- NOTE | 2025-01-20 12:03 | BI_ITS ---
PROCEDURE: SCRN MAMM (CAD)W/BRI BILAT REASON FOR EXAM: F, Age 39 y/o, presents for annual screening mammogram. No family history of breast cancer. TECHNIQUE: Bilateral screening digital breast tomosynthesis with 2D and 3D images. Computer aided detection. COMPARISON: 09/05/2019 FINDINGS: There are scattered areas of fibroglandular density. There is a focal asymmetry in the central inner left breast at middle depth with an associated biopsy marker clip, this has not significantly changed when compared to prior examination of 2019. No suspicious masses, areas of developing architectural distortion, or suspicious calcifications. BI/SCRN MAMM (CAD)W/BRI BILAT IMPRESSION: There is no mammographic evidence of malignancy in either breast. BI-RADS 2: BENIGN. RECOMMEND ANNUAL MAMMOGRAPHIC SCREENING. Follow-up code: Routine Follow-up The patient will be notified of the results by letter. Reading Location: [id number]
== END | disposition home or self-care (01) ==
LOC: OPBI 12:02
PROVIDERS: PCP Internal Medicine; Referring Provider Obstetrics & Gynecology; Visit Provider Obstetrics & Gynecology
DX: Z12.31 Encounter for screening mammogram for malignant neoplasm of breast (principal)
CPT/HCPCS: 77063; 77067

== ENCOUNTER 2025-02-13 14:45 | Emergency (ER) | payer MEDICAID, SELFPAY ==
[2025-02-13 14:45] VITALS: BP 90/60; BP 92/59; PULSE 105; PULSE 96; RESP 20; TEMP 37.2; O2SAT 98; O2SAT 99; BMI 27.3
--- NOTE | 2025-02-13 15:47 | EX.ED.DYSGE1 ---
HPI History of Present Illness Chief Complaint: Cough Informant: patient Onset/Context/Timing Onset: Weeks (2) Context: Gradual Onset Timing: Continuous Quality: Sharp Location: Upper back Worsened by: Nothing Relieved by: Nothing Narrative Narrative: Patient presents with cough, congestion, and back pain that has been getting worse over the past 2 weeks. Patient admits to some rhinorrhea and nasal congestion. Patient admits to some shortness of breath. Patient admits to a cough but denies any sputum production. Patient states that if she coughs very hard she will vomit up some clear sputum. Patient admits to general myalgias. Patient admits to some nausea but denies any vomiting. [facility] Medical History PTSD (post-traumatic stress disorder) Left shoulder strain H/O thoracic outlet syndrome Thoracic outlet syndrome IBS (irritable bowel syndrome) GERD (gastroesophageal reflux disease) Anxiety Depression Home Medications ?Medication ?Instructions ?Recorded ?Last Taken ?Type estradiol 1 mg tablet 1 mg PO DAILY 11/19/23 11/19/23 History estradiol 2 mg tablet 2 mg PO DAILY 11/19/23 11/19/23 History ondansetron 4 mg disintegrating 4 mg PO Q8H PRN PRN Nausea #14 tabs 03/02/24 Unknown Rx tablet hydrocodone-acetaminophen 5-325mg 1 tab PO Q4H PRN PRN Pain 3 days 04/25/24 Unknown Rx 5mg-325mg #7 TABLETS codeine 10 mg-guaifenesin 200 mg/5 5 ml PO Q6H PRN cough #473 mL 02/13/25 Unknown Rx mL oral liquid Allergy/AdvReac Type Severity Reaction Status Date / Time benzonatate (From Tessalon Allergy Rash Verified 01/15/25 13:19 Darrick) diazepam (From Valium) Allergy Hives Verified 01/15/25 13:19 morphine Allergy Itching Verified 01/15/25 13:19 Penicillins Allergy Hives Verified 01/15/25 13:19 venom-honey bee (bee venom Allergy Hives Verified 01/15/25 13:19 (honey bee)) Family History Father Heart disease Hypertension Myocardial infarction Mother Cancer lung, throat and Lupus Surgical History History of left oophorectomy S/P breast biopsy History of esophagogastroduodenoscopy (EGD) S/P colonoscopy Status post hysterectomy Social History household members: none Smoking Status: Current every day smoker tobacco type: cigarettes alcohol intake: current alcohol intake frequency: holidays/special occasions only substance use type: marijuana caffeine: Yes what type of physical activity do you participate in: none seatbelt use: sometimes do you feel safe at home: Yes additional social history: Boyfriend-Sha- Works at [employer] Patient works at [employer] ED Constitutional Constitutional ED: Denies chills or fever(s) Eyes Eyes: Denies blurry vision or change in vision ENT ENT ED: Reports rhinorrhea; Denies sore throat Cardiovascular Cardiovascular: Denies chest pain or palpitations Respiratory/Chest Respiratory/Chest: Reports cough; Denies dyspnea Gastrointestinal Gastrointestinal: Reports nausea; Denies vomiting Genitourinary Genitourinary ED: Denies dysuria or hematuria Musculoskeletal Musculoskeletal: Reports back pain; Denies neck pain Integumentary Denies abscess or rash Neurologic Neurologic: Denies headache(s) or weakness Allergic/Immunologic Allergic/Immunologic ED: Denies mouth swelling or urticaria EXAM Physical Exam Const Vital Signs: 02/13/25 14:45 02/13/25 14:45 02/13/25 16:42 Temperature 99 F Temperature Source Temporal Pulse Rate 96 105 H Pulse Rate [Lying] Pulse Rate [Sitting (for 1 minute prior to obtaining)] Pulse Rate [Standing (for 1 minute prior to obtaining)] Respiratory Rate 20 H 20 H Respiratory Depth Normal Respiratory Pattern Normal Blood Pressure 90/60 92/59 L Blood Pressure [Lying] Blood Pressure [Sitting (for 1 minute prior to obtaining)] Blood Pressure [Standing (for 1 minute prior to obtaining)] Blood Pressure Mean 70 70 Blood Pressure Mean [Lying] Blood Pressure Mean [Sitting (for 1 minute prior to obtaining)] Blood Pressure Mean [Standing (for 1 minute prior to obtaining)] Pulse Ox 98 99 Oxygen Delivery Method Room Air Room Air Room Air 02/13/25 16:51 Temperature Temperature Source Pulse Rate Pulse Rate [Lying] 84 Pulse Rate [Sitting (for 1 minute prior to obtaining)] 83 Pulse Rate [Standing (for 1 minute prior to obtaining)] 84 Respiratory Rate Respiratory Depth Respiratory Pattern Blood Pressure Blood Pressure [Lying] 101/65 Blood Pressure [Sitting (for 1 minute prior to obtaining)] 97/61 Blood Pressure [Standing (for 1 minute prior to obtaining)] 106/69 Blood Pressure Mean Blood Pressure Mean [Lying] 77 Blood Pressure Mean [Sitting (for 1 minute prior to obtaining)] 73 Blood Pressure Mean [Standing (for 1 minute prior to obtaining)] 81 Pulse Ox Oxygen Delivery Method Positive well nourished and well developed General Appearance ED: well developed and NAD HEENT Reports moist mucous membranes Neck supple and no JVD Resp Auscultation: diminished lung sounds diffuse Cardio regular rhythm Rate: tachycardic GI non-tender and non-distended Palpation: soft Neuro oriented x3, CN's II-XII intact bilaterally and no sensory deficits noted Sensorium / Orientation: alert Motor Exam: strength 5/5 throughout Psych mental status grossly normal MDM MDM MDM Narrative Medical decision making narrative: Differential diagnosis includes pneumonia, bronchitis, viral upper respiratory infection, dehydration. Chest x-ray will be obtained to assess for pneumonia and bronchitis. CBC will be obtained to assess for leukocytosis and anemia. Basic metabolic profile will be obtained to assess for electrolyte abnormality and renal function. COVID-19, influenza, and RSV PCR will be obtained to assess for viral upper respiratory infection. Lab Data Attestation: I reviewed the patient's lab results. Lab results narrative: CBC was reviewed. White blood cell count was slightly low at 4.2. Hemoglobin was 15.7. Platelets were slightly low at 136. Basic metabolic profile was reviewed and was within normal limits. COVID-19 PCR was reviewed and was negative. Influenza PCR was reviewed and was positive for influenza A and negative for influenza B. RSV PCR was reviewed and was negative. Labs: Laboratory Results - last 24 hr 02/13/25 16:11 WBC 4.2 L RBC 4.82 Hgb 15.7 H Hct 46.8 MCV 97.1 MCH 32.6 H MCHC 33.5 RDW Std Deviation 45.4 H RDW Coeff of Reji 12.7 Plt Count 136 L MPV 11.6 Immature Gran % (Auto) 0.500 Neut % (Auto) 76.2 H Lymph % (Auto) 11.3 L Maries % (Auto) 11.1 H Eos % (Auto) 0.2 Baso % (Auto) 0.7 Absolute Neuts (auto) 3.2 Absolute Lymphs (auto) 0.48 L Nucleated RBC % 0 Sodium 140 Potassium 3.5 Chloride 106 Carbon Dioxide 23.1 Anion Gap 12 BUN 6 Creatinine 0.72 Estim Creat Clear Calc 86.41 Est GFR (MDRD) Non-Af 109 BUN/Creatinine Ratio 7.8 L Glucose 89 Calcium 9.0 Radiography Chest X-Ray - ED: 2 View, Read by ED Physician, Read by Radiologist and No Acute Disease Diagnostic Testing: Clinical Impression(s) from Imaging Studies Chest X-Ray 02/13/25 16:11 IMPRESSION: NEGATIVE CHEST Reading Location: [facility] PA and lateral chest x-ray was obtained. There are 2 views. On my independent interpretation, lung hankins are clear. There is normal cardiac silhouette. Bony thorax is normal. There is no acute process noted. Radiologist also interpreted the x-ray and agrees. Treatment and Re-Evaluation :: Patient was given IV fluids. Orthostatic vital signs were obtained and were within normal limits. Patient was feeling better on reevaluation. Patient was instructed to drink plenty of fluids. Patient was instructed to take Tylenol or ibuprofen as needed for pain. Patient was given a prescription for codeine cough syrup. Patient was instructed to follow-up with her primary care physician in 5 to 7 days. Patient understood and was agreeable with the plan. All questions were answered. Discharge Plan Triage Chief Complaint: Cough ED Provider: Jamarcus Persaud Dx/Rx/DC Orders Clinical Impression: Influenza A, Cough Instructions: ED Influenza (Adult) Prescriptions: New codeine-guaifenesin 10-200 mg/5 mL liquid 5 ml PO Q6H PRN (Reason: cough) Qty: 473 0RF No Action estradiol 1 mg tablet 1 mg PO DAILY estradiol 2 mg tablet 2 mg PO DAILY hydrocodone-acetaminophen 5-325 mg tablet 1 tab PO Q4H PRN PRN (Reason: Pain) 3 Days Qty: 7 0RF ondansetron 4 mg tablet,disintegrating 4 mg PO Q8H PRN PRN (Reason: Nausea) Qty: 14 0RF Primary Care Provider: Yassine Link Referrals: Yassine Link MD [Primary Care Provider] - 5-7 Days Print Language: Filipino Disposition Disposition: Home, Self Care
--- NOTE | 2025-02-13 16:11 | RAD_ITS ---
PROCEDURE: CHEST PA AND LATERAL 02/13/2025 REASON FOR EXAM: 39-year-old female, cough, shortness of breath and chills. TECHNIQUE: Frontal and lateral views of the chest. COMPARISON: Chest radiograph 04/26/2020. FINDINGS: Surgical clips within the left breast and left lower neck. The heart size is normal. The mediastinal contour is unremarkable. No focal consolidation, pleural effusion or pneumothorax. The bones are unremarkable. RAD/Chest PA and Lateral IMPRESSION: NEGATIVE CHEST Reading Location: [id number]
[2025-02-13 16:32] LABS: Absolute Lymphocyte Count 0.48 X10^3/uL (0.83-4.51); Absolute Neutrophil Count 3.2 X10^3/uL (2.0-7.7); Basophil# 0.03 X10^3/uL; Basophil% 0.7 % (0-1); Eosinophil# 0.01 X10^3/uL; Eosinophils% 0.2 % (0-5); Hematocrit 46.8 % (37-47); Hemoglobin 15.7 g/dL (12.0-15.0); Lymphocyte # 0.48 X10^3/ul (0.83-4.51); Lymphocyte % 11.3 % (19-41); Mean Corp Hgb Conc 33.5 g/dL (32-36); Mean Corpuscular Hgb 32.6 pg (27.0-32.0); Mean Corpuscular Volume 97.1 fL (81-99); Mean Platelet Vol. 11.6 fl (6.2-12.0); Monocyte# 0.47 X10^3/uL; Monocyte% 11.1 % (0-10); NRBC Flagged by Analyzer 0 % (0-5); Neutrophil # 3.23 X10^3/uL (2.7-7.7); Neutrophil % 76.2 % (47-70); POSITIVE DIFFERENTIAL YES; Platelet Count 136 K/mm3 (150-450); RBC Distribution Width CV 12.7 % (11.6-14.6); RBC Distribution Width SD 45.4 fl (35.1-43.9); Red Blood Count 4.82 M/mm3 (4.2-5.4); White Blood Count 4.2 K/mm3 (4.4-11.0)
[2025-02-13] MEDS: 0.9% Normal Saline (1000mL) 1,000 ML 1000 ML IV (16:39)
[2025-02-13 16:42] VITALS: O2SAT 97
[2025-02-13 16:45] LABS: Anion Gap 12 (5-15); BUN 6 mg/dL (4-19); BUN/Creat Ratio 7.8 RATIO (10-20); Carbon Dioxide 23.1 mmol/L (21.0-32.0); Chloride 106 mmol/L (98-108); Creatinine, Serum 0.72 mg/dL (0.70-1.20); EST Glomerular Filtration Rate 109 (>60); Estimated Creatinine Clearance 86.41 ml/min (50-250); Glucose 89 mg/dL (70-99); Potassium 3.5 mmol/L (3.3-5.1); Sodium Level 140 mmol/L (133-145)
[2025-02-13 16:51] VITALS: BP 101/65; BP 106/69; BP 97/61; PULSE 83; PULSE 84
[2025-02-13 18:41] VITALS: BP 92/59; PULSE 105; RESP 20; TEMP 37.2; O2SAT 99
== END 2025-02-13 18:43 | disposition home or self-care (01) ==
PROVIDERS: Emergency Provider Emergency Medicine; PCP Internal Medicine; Visit Provider Emergency Medicine
DX: J10.1 Influenza due to other identified influenza virus with other respiratory manifestations (principal); F17.210 Nicotine dependence, cigarettes, uncomplicated
CPT/HCPCS: 71046; 80048; 85025; 87631; 96360; 99284; A4216

== ENCOUNTER 2025-08-23 13:11 | Emergency (ER) | payer MEDICAID, SELFPAY ==
--- OUTSIDE RECORDS SUMMARY | 2025-08-03 09:39 | XMS RPT_ITS ---
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 hospital stay. - Reports persistent cough, dyspnea, and rib pain, especially at night. - Using albuterol inhaler every 2-3 hours, with limited relief. - Coughing up clear sputum; previously noted black and green sputum during hospitalization. - On 1 L of supplemental oxygen, occasionally increasing to 2 L due to dyspnea. - Attempting to wean off oxygen; managed 2 hours without it yesterday. - Has an oxygen concentrator at home. - Denies smoking currently; had a brief relapse yesterday. - Experiencing rhinorrhea. - Reports stress related to ongoing divorce. GERD: - Severe heartburn and reflux. - Hoarseness x several months; denies odynophagia. - Taking pantoprazole once daily. - Scheduled for an endoscopy on the . Respiratory Status: - Breathing has improved; SpO2 consistently 96-99%. - No longer requiring supplemental oxygen. - Decreased use of inhaler. - Recently discontinued prednisone. - Bilateral pedal edema for a few days, possibly related to prednisone use. Work Status: - Off work since 02/13. - Requests clearance to return to work tomorrow. ROS Ears/Nose/Mouth/Throat: (+) dysphonia, (-) sore throat Respiratory: (-) shortness of breath Gastrointestinal: (+) heartburn Objective BP 108/69 Pulse 74 Resp 20 Wt 64 kg (141 lb 1.5 oz) LMP 05/16/2015 SpO2 99% BMI 27.56 kg/m? Physical Exam Vitals and nursing note reviewed. Constitutional: Appearance: Normal appearance. HENT: Head: Normocephalic and atraumatic. Eyes: Conjunctiva/sclera: Conjunctivae normal. Cardiovascular: Rate and Rhythm: Normal rate and regular rhythm. Heart sounds: Normal heart sounds. Pulmonary: Effort: Pulmonary effort is normal. Breath sounds: Normal breath sounds. Skin: General: Skin is warm and dry. Neurological: General: No focal deficit present. Mental Status: She is alert and oriented to person, place, and time. 1. Pulmonary infiltrates on CXR (R91.8) - Symptoms have improved; no longer requiring supplemental oxygen, SpO2 consistently 96-99%. - Auscultation reveals clear breath sounds. - Discontinued prednisone. - Cleared to return to work tomorrow. Keep pulmonology appointment. Endorse continue off tobacco. CXR today declined. 2. Gastroesophageal reflux disease, unspecified whether esophagitis present - ICD9: 530.81, ICD10: K21.9 - Endorse continue with lifestyle modifications including Increase pantoprazole from QD to BID for at least 6-8 weeks to see if helps with GERD symptoms and hoarseness, may return to daily dosing if feeling improved. - PANTOPRAZOLE 40 MG TABLET,DELAYED RELEASE German Pires APRN.ROTARY SWAGING MACHINE OPERATOR Medical Decision Making: Problems: Low: Acute, uncomplicated illness or injury Data: Unique test result(s) reviewed: 1 Risk: Moderate: Drug management Medical Decision Making Level: 3 - Low German Pires APRN.ROTARY SWAGING MACHINE OPERATOR 03/02/2025 8:37 AM Signed - Increase Pantoprazole (Protonix) to twice daily for 6-8 weeks to help with throat hoarseness and reflux symptoms. After 6-8 weeks, if symptoms improve, you can reduce the dosage to once daily. - Return your oxygen equipment to avoid additional charges. - Resume work tomorrow; a clearance letter has been provided. - Complete your scheduled scope on the at the designated hospital. Referring Provider: GERMAN PIRES [[id number]] Allergies As of Date: 03/02/2025 Noted Allergy Reaction BEES 06/23/2011 10 - Anaphylaxis Comments: Pt had swelling, was given epipen at ER. CODEINE-GUAIFENESIN 02/16/2025 2 - Rash Comments: Script per ER for cough with subsequent rash 02/13/2025 DIAZEPAM 08/03/2015 4 - Hives Comments: Hives on chest only. MORPHINE 11/10/2014 2 - Rash 9 - Itching Comments: Left arm turned red when given IV morphine MUCINEX (GUAIFENESIN) 02/23/2025 2 - Rash PENICILLINS 02/14/2011 14 - Other: See Comments 4 - Hives Comments: Patient refuses due to family allergy to PCN. BENZONATATE 11/03/2017 2 - Rash Date Reviewed: 03/02/2025 Reviewed by: Shelbie Bass LPN - Fully Assessed Reason for Visit: Recheck [92] Cmt: pneumonia states is no longer needing the O2 Primary Visit Diagnosis:Pulmonary infiltrates on CXR [R91.8] Other Visit Diagnosis:Gastroesophageal reflux disease, unspecified whether esophagitis present [K21.9] Order(s):pantoprazole DR (PROTONIX) 40 mg tabletTake 1 tablet by mouth two times a day.Disp: 180 tabletRfl: 1 Prescriptions as of 03/02/2025 - pantoprazole DR (PROTONIX) 40 mg tablet Take 1 tablet by mouth two times a day. - albuterol (PROVENTIL) 2.5 mg /3 mL (0.083 %) nebulizer solution Use 3 mL via nebulizer every 6 hours as needed for wheezing/shortness of breath. - Nebulizer and Compressor For Neb 1 Each four times daily. as needed for cough wheeze or shortness of breath on exertion - ondansetron orally disintegrating (ZOFRAN ODT) 4 mg disintegrating tablet Take 1 tablet by mouth every 6 hours as needed for nausea/vomiting. - estradiol (CLIMARA) 0.05 mg/24 hr patch apply 1 patch topically once a week - PARoxetine (PAXIL) 10 mg tablet Take 1 tablet by mouth once daily. For hot flashes - albuterol HFA (VENTOLIN HFA) 90 mcg/actuation inhaler INHALE TWO PUFFS BY MOUTH EVERY 6 HOURS NEEDED FOR WHEEZING OR SHORTNESS OF BREATH - EPINEPHrine (EPIPEN) 0.3 mg/0.3 mL auto-injector GIVE ONE DOSE INTO LATERAL THIGH FOR ALLERGIC REACTION. REPEAT DOSE IN 5-15 MINUTES IF NOT IMPROVING Meds Comments as of 12/05/2022: Problem List As Of Date 03/02/2025 Noted Resolved Bipolar disorder, unspecified (HCC) [F31.9] 07/26/2006 09/01/2020 Asthma [J45.909] 07/26/2006 ESOPHAGEAL REFLUX [K21.9] 08/23/2006 Pruritus of genital organs [L29.3] 11/21/2006 01/03/2011 TOBACCO USE DISORDER [F17.200] 12/25/2006 Lumbago [M54.50] 03/09/2008 04/18/2018 Dysuria [R30.0] 05/21/2009 01/03/2011 Abdominal pain, generalized [R10.84] 10/05/2009 01/03/2011 Abdominal pain, epigastric [R10.13] 10/26/2009 03/15/2012 Disturbance of skin sensation [R20.9] 01/21/2010 01/03/2011 Cervicalgia [M54.2] 01/21/2010 01/03/2011 Abdominal pain, right upper quadrant [R10.11] 07/11/2011 03/15/2012 Gastritis/duodenitis [K29.70, K29.90] 07/21/2011 03/15/2012 Acute gastritis without mention of hemorrhage [*07/21/2011 03/15/2012 Irritable bowel syndrome [K58.9] 03/15/2012 09/01/2020 Abdominal pain, chronic, generalized [R10.84, G*07/04/2013 04/18/2018 ASCUS (atypical squamous cells of undetermined *09/24/2013 04/18/2018 Myofascial pain [M79.18] 11/07/2013 04/18/2018 Pain of left thumb [M79.645] 01/20/2015 04/18/2018 Raynaud's phenomenon without gangrene [I73.00] 02/01/2017 12/14/2019 Mixed stress and urge urinary incontinence [N39*12/13/2019 09/08/2021 Thoracic outlet syndrome [G54.0] 06/14/2020 03/12/2023 TOS (thoracic outlet syndrome) [G54.0] 10/18/2021 05/23/2022 Anxiety with depression [F41.8] 05/23/2022 Overactive bladder [N32.81] 07/28/2022 Pain of left shoulder region [M25.512] 12/28/2022 01/27/2025 Non-adherence to medical treatment [Z91.199] 03/12/2023 Other instructions from your clinician: - Increase Pantoprazole (Protonix) to twice daily for 6-8 weeks to help with throat hoarseness and reflux symptoms. After 6-8 weeks, if symptoms improve, you can reduce the dosage to once daily. - Return your oxygen equipment to avoid additional charges. - Resume work tomorrow; a clearance letter has been provided. - Complete your scheduled scope on the at the designated hospital. Prescriptions ordered this encounter Disp Refills Start End PANTOPRAZOLE 40 MG TABLET,DELAYED RE* 180 * 1 03/02/2025 Route: ORAL Sig: Take 1 tablet by mouth two times a day. Medications Discontinued During This Encounter Prescriptions - cefdinir (OMNICEF) 300 mg capsule (Discontinued) Reported on 03/02/2025 - dextromethorphan polistirex ER (DELSYM) 30 mg/5 mL oral liquid (Discontinued) Reported on 03/02/2025 - dicyclomine (BENTYL) 10 mg capsule (Discontinued) Reported on 02/23/2025 - oxycodone HCl (OXYCODONE, BULK, MISC) (Discontinued) Reported on 03/02/2025 - predniSONE (DELTASONE) 10 mg tablet (Discontinued) Take 1 tab daily x 7 days, take with food. - pantoprazole DR (PROTONIX) 40 mg tablet (Discontinued) Take 1 tablet by mouth once daily. Level of Service: OFFICE/OUTPATIENT ESTABLISHED LOW [facility] 20 MIN [54604] Additional E/M codes: VISIT CPLX INHERENT EANDM ASSOC WITH MED * Letter Text Encounter Status:Closed by GERMAN PIRES on 03/02/25 CNCO Observed: 03/02/2025 12:00 AM Status: COMPLETED Source: [facility] Letter Text CNPN Observed: 02/26/2025 12:00 AM Status: COMPLETED Source: [facility] Telephone (INTMWS) ANNE CHUNG ([id number]) 1985 F Date Time Provider Department 02/26/25 GERMAN PIRES INTMWS During your visit today, we recorded the following information about you: Myesha Albarado LPN 02/26/2025 9:04 AM Signed Patient calling asking to have referral faxed to [facility] at [phone]. Printed office notes, chest xray results, face sheet, consult faxed as requested. Allergies As of Date: 02/26/2025 Noted Allergy Reaction BEES 06/23/2011 10 - Anaphylaxis Comments: Pt had swelling, was given epipen at ER. CODEINE-GUAIFENESIN 02/16/2025 2 - Rash Comments: Script per ER for cough with subsequent rash 02/13/2025 DIAZEPAM 08/03/2015 4 - Hives Comments: Hives on chest only. MORPHINE 11/10/2014 2 - Rash 9 - Itching Comments: Left arm turned red when given IV morphine MUCINEX (GUAIFENESIN) 02/23/2025 2 - Rash PENICILLINS 02/14/2011 14 - Other: See Comments 4 - Hives Comments: Patient refuses due to family allergy to PCN. BENZONATATE 11/03/2017 2 - Rash Date Reviewed: 02/23/2025 Reviewed by: German Pires APRN.ROTARY SWAGING MACHINE OPERATOR - Fully Assessed Reason for Visit: Fax referral to [facility] [Other] Prescriptions as of 02/26/2025 - cefdinir (OMNICEF) 300 mg capsule Take 300 mg by mouth two times a day. - HYDROcodone-acetaminophen (NORCO) 5-325 mg per tablet Take 1 tablet by mouth every 8 hours as needed for pain for up to 3 days. - predniSONE (DELTASONE) 10 mg tablet Take 4 tabs daily x 3 days, then 3 tabs x 3 days, 2 tabs x 3 days, then 1 tab x3 days with food. - dextromethorphan polistirex ER (DELSYM) 30 mg/5 mL oral liquid Take 10 mL by mouth two times a day for 14 days. - albuterol (PROVENTIL) 2.5 mg /3 mL (0.083 %) nebulizer solution Use 3 mL via nebulizer every 6 hours as needed for wheezing/shortness of breath. - Nebulizer and Compressor For Neb 1 Each four times daily. as needed for cough wheeze or shortness of breath on exertion - oxycodone HCl (OXYCODONE, BULK, MISC) 5 mg every 6 hours as needed. - dicyclomine (BENTYL) 10 mg capsule Take 1 capsule by mouth before meals and at bedtime. - pantoprazole DR (PROTONIX) 40 mg tablet Take 1 tablet by mouth once daily. - ondansetron orally disintegrating (ZOFRAN ODT) 4 mg disintegrating tablet Take 1 tablet by mouth every 6 hours as needed for nausea/vomiting. - estradiol (CLIMARA) 0.05 mg/24 hr patch apply 1 patch topically once a week - PARoxetine (PAXIL) 10 mg tablet Take 1 tablet by mouth once daily. For hot flashes - albuterol HFA (VENTOLIN HFA) 90 mcg/actuation inhaler INHALE TWO PUFFS BY MOUTH EVERY 6 HOURS NEEDED FOR WHEEZING OR SHORTNESS OF BREATH - EPINEPHrine (EPIPEN) 0.3 mg/0.3 mL auto-injector GIVE ONE DOSE INTO LATERAL THIGH FOR ALLERGIC REACTION. REPEAT DOSE IN 5-15 MINUTES IF NOT IMPROVING Meds Comments as of 12/05/2022: Problem List As Of Date 02/26/2025 Noted Resolved Bipolar disorder, unspecified (HCC) [F31.9] 07/26/2006 09/01/2020 Asthma [J45.909] 07/26/2006 ESOPHAGEAL REFLUX [K21.9] 08/23/2006 Pruritus of genital organs [L29.3] 11/21/2006 01/03/2011 TOBACCO USE DISORDER [F17.200] 12/25/2006 Lumbago [M54.50] 03/09/2008 04/18/2018 Dysuria [R30.0] 05/21/2009 01/03/2011 Abdominal pain, generalized [R10.84] 10/05/2009 01/03/2011 Abdominal pain, epigastric [R10.13] 10/26/2009 03/15/2012 Disturbance of skin sensation [R20.9] 01/21/2010 01/03/2011 Cervicalgia [M54.2] 01/21/2010 01/03/2011 Abdominal pain, right upper quadrant [R10.11] 07/11/2011 03/15/2012 Gastritis/duodenitis [K29.70, K29.90] 07/21/2011 03/15/2012 Acute gastritis without mention of hemorrhage [*07/21/2011 03/15/2012 Irritable bowel syndrome [K58.9] 03/15/2012 09/01/2020 Abdominal pain, chronic, generalized [R10.84, G*07/04/2013 04/18/2018 ASCUS (atypical squamous cells of undetermined *09/24/2013 04/18/2018 Myofascial pain [M79.18] 11/07/2013 04/18/2018 Pain of left thumb [M79.645] 01/20/2015 04/18/2018 Raynaud's phenomenon without gangrene [I73.00] 02/01/2017 12/14/2019 Mixed stress and urge urinary incontinence [N39*12/13/2019 09/08/2021 Thoracic outlet syndrome [G54.0] 06/14/2020 03/12/2023 TOS (thoracic outlet syndrome) [G54.0] 10/18/2021 05/23/2022 Anxiety with depression [F41.8] 05/23/2022 Overactive bladder [N32.81] 07/28/2022 Pain of left shoulder region [M25.512] 12/28/2022 01/27/2025 Non-adherence to medical treatment [Z91.199] 03/12/2023 Encounter Status:Closed by MYESHA ALBARADO on 02/26/25 XR CHEST 2V FRONTAL/LAT Observed: 2024 10:51 AM Status: F Source: [facility] * * *Final Report* * * DATE OF EXAM: Feb 23 2025 10:51AM WOX [id number] - XR CHEST 2V FRONTAL/LAT / PROCEDURE REASON: Pneumonia of left lower lobe due to infectious organism * * * * Physician Interpretation * * * * EXAMINATION: CHEST RADIOGRAPH (2 VIEW FRONTAL and LATERAL) CLINICAL HISTORY: Pneumonia of left lower lobe due to infectious organism MQ: [id number] EXAM DATE/TIME: 02/23/2025 10:51 AM COMPARISON: Chest x-ray on 09/28/2021 RESULT: Lines, tubes, and devices: None. Lungs and pleura: There are small patchy opacities overlying the bilateral lower lungs. No mass lesion identified. No pleural effusions or pneumothorax. Cardiomediastinal silhouette: Normal cardiomediastinal silhouette. Bones and soft tissues: Unremarkable. IMPRESSION: Bilateral pulmonary infiltrates, likely representing pneumonia or aspiration. Clinical correlation is suggested. Whale Trainer: PSCB Transcribe Date/Time: Feb 23 2025 11:21A Dictated by : ALLY JUÁREZ MD This examination was interpreted and the report reviewed and electronically signed by: ALLY JUÁREZ MD on Feb 23 2025 11:21AM EST [id number] Observed: 02/23/2025 10:40 AM Status: COMPLETED Source: [facility] HNO ID: [id number] Author: MARIANNE CROFT RT(R) Service: ? Author Type: Powder Worker Type: Progress Notes Filed: 02/23/2025 10:50 Note Text: Radiology Service Progress Note PATIENT NAME: Anne Chung DATE OF SERVICE: February 23, 2025 TIME: 10:41 AM PATIENT IDENTITY VERIFICATION COMPLETED USING TWO (2) IDENTIFIERS: Name and Date of confirmed by patient verbally. FALL SCREENING: Has the patient had 2 falls in the last year or 1 fall with injury or currently using an Ambulatory Assistive Device (Walker, Cane, Wheelchair, Crutches, etc.)? No PATIENT GENDER DATA: Assigned female at . status: : No status: NO. PATIENT RELEVANT IMPLANT DATA REVIEWED: Yes PATIENT PRESENTS WITH AN IMPLANTABLE OR ATTACHED INSTRUCTIONAL MEDIA SERVICES TECHNICIAN: No RADIOLOGY DEPARTMENT: General X-ray: Exam(s) Completed: Chest X-Ray PERIPHERAL IV DATA: Not applicable SIGNED BY: RT Davy(R) February 23, 2025 10:41 AM CNOV Observed: 02/23/2025 9:40 AM Status: COMPLETED Source: [facility] Office Visit (INTMWS) ANNE CHUNG ([id number]) 1985 F Date Time Provider Department 02/23/25 9:40 AM GERMAN PIRES INTMWS During your visit today, we recorded the following information about you: Pulse Respiration Blood pressure Weight 80/minute 16/minute 98/65 65 kg German Pires, EDU.ROTARY SWAGING MACHINE OPERATOR 02/23/2025 10:39 AM Signed Subjective Patient ID: Anne is a 39 year old female who presents for Hospital F/U. HPI Presents for a hospital follow up visit. Review of records show she presented to [facility] ER with report of left flank pain and chest pain. Imaging showed left lower lobe pneumonia no CT evidence for acute intra-abdominal or intrapelvic pathology. Large consolidation noted in left lower lobe scattered groundglass opacities likely due to infectious etiology no evidence of PE. Today reports she ws in the hospital for 4 days. Limited informtion available in care everywhere and scanned documents. Pneumonia: - Hospitalized at [facility] for 3-4 days due to severe pneumonia. - Received IV antibiotics during hospitalization; completed antibiotic course. - Currently on Prednisone, resumed post-hospitalization. - Reports underwent CT and MRI with contrast during hospital stay. - Reports persistent cough, dyspnea, and rib pain, especially at night. - Using albuterol inhaler every 2-3 hours, with limited relief. - Coughing up clear sputum; previously noted black and green sputum during hospitalization. - On 1 L of supplemental oxygen, occasionally increasing to 2 L due to dyspnea. - Attempting to wean off oxygen; managed 2 hours without it yesterday. - Has an oxygen concentrator at home. - Denies smoking currently; had a brief relapse yesterday. - Experiencing rhinorrhea. - Reports stress related to ongoing divorce. Ears/Nose/Mouth/Throat: (+) runny nose Respiratory: (+) cough, (+) shortness of breath, (+) phlegm Musculoskeletal: (+) rib pain, (+) back pain, (+) left arm pain Psychiatric: (+) stress Objective BP 98/65 Pulse 80 Resp 16 Wt 65 kg (143 lb 4.8 oz) LMP 05/16/2015 SpO2 99% BMI 27.99 kg/m? Physical Exam Vitals and nursing note reviewed. Constitutional: Appearance: Normal appearance. HENT: Head: Normocephalic and atraumatic. Eyes: Conjunctiva/sclera: Conjunctivae normal. Cardiovascular: Rate and Rhythm: Normal rate and regular rhythm. Heart sounds: Normal heart sounds. Pulmonary: Effort: Pulmonary effort is normal. Breath sounds: Normal breath sounds. Comments: O2 NC 1L, Chest wall discomfort with cough Skin: General: Skin is warm and dry. Neurological: General: No focal deficit present. Mental Status: She is alert and oriented to person, place, and time. 1. Pneumonia of left lower lobe due to infectious organism (J18.9) 2. Hypoxia (R09.02) - Recent hospitalization for severe pneumonia; treated with IV antibiotics, now completed. - Currently on 1 L/min supplemental oxygen; experiencing dyspnea and cough. - Using albuterol inhaler every 2-3 hours. - Ordered chest X-ray to assess current pulmonary status. - Referred to pulmonology for further evaluation and management. - Advised to continue prednisone as prescribed and maintain oxygen therapy until symptoms improve. - Follow-up appointment scheduled in one week. 3. Influenza A (J10.1) 4. Tobacco use disorder (F17.200) - Recent relapse with smoking; educated on risks, especially while on oxygen therapy. - Patient committed to cessation; declined additional pharmacotherapy for smoking cessation. 5. Chest pain on breathing (R07.1) - Pleuritic chest pain, particularly at night; likely secondary to pneumonia and coughing. - Continue current pain management regimen. CXR today. Appt with pulmonology Recheck in office one week. Medical Decision Making: Problems: Moderate: Acute illness with systemic symptoms Data: Unique test result(s) reviewed: 3+ Unique test(s) ordered: 1 Risk: Moderate: Drug management Medical Decision Making Level: 4 - Moderate German Pires APRN.ROTARY SWAGING MACHINE OPERATOR 02/23/2025 10:28 AM Signed - Continue taking Prednisone as prescribed. - Use Albuterol inhaler every 6 hours as needed for shortness of breath. - Continue using oxygen at 1 liter per minute; adjust as needed to maintain comfort and avoid shortness of breath. - Avoid smoking to prevent further lung irritation and complications. - Complete chest X-ray as scheduled. - Follow up with [employer] as scheduled. - Return for a follow-up appointment in one week. Allergies As of Date: 02/23/2025 Noted Allergy Reaction BEES 06/23/2011 10 - Anaphylaxis Comments: Pt had swelling, was given epipen at ER. CODEINE-GUAIFENESIN 02/16/2025 2 - Rash Comments: Script per ER for cough with subsequent rash 02/13/2025 DIAZEPAM 08/03/2015 4 - Hives Comments: Hives on chest only. MORPHINE 11/10/2014 2 - Rash 9 - Itching Comments: Left arm turned red when given IV morphine MUCINEX (GUAIFENESIN) 02/23/2025 2 - Rash PENICILLINS 02/14/2011 14 - Other: See Comments 4 - Hives Comments: Patient refuses due to family allergy to PCN. BENZONATATE 11/03/2017 2 - Rash Date Reviewed: 02/23/2025 Reviewed by: German Pires APRN.ROTARY SWAGING MACHINE OPERATOR - Fully Assessed Reason for Visit: Hospital F/U [57] Primary Visit Diagnosis:Pneumonia of left lower lobe due to infectious organism [J18.9] Other Visit Diagnoses:Influenza A [J10.1] Hypoxia [R09.02] Tobacco use disorder [F17.200] Chest pain on breathing [R07.1] Order(s):XR CHEST 2V FRONTAL/LAT [4759583] Order #: [id number] FUTURE CONSULT TO PULM/CRITICAL CARE [20000202] Order #: [id number]: 1 FUTURE HYDROcodone-acetaminophen (NORCO) 5-325 mg per tabletTake 1 tablet by mouth every 8 hours as needed for pain for up to 3 days.Disp: 9 tabletRfl: 0 Prescriptions as of 02/23/2025 - cefdinir (OMNICEF) 300 mg capsule Take 300 mg by mouth two times a day. - HYDROcodone-acetaminophen (NORCO) 5-325 mg per tablet Take 1 tablet by mouth every 8 hours as needed for pain for up to 3 days. - predniSONE (DELTASONE) 10 mg tablet Take 4 tabs daily x 3 days, then 3 tabs x 3 days, 2 tabs x 3 days, then 1 tab x3 days with food. - dextromethorphan polistirex ER (DELSYM) 30 mg/5 mL oral liquid Take 10 mL by mouth two times a day for 14 days. - albuterol (PROVENTIL) 2.5 mg /3 mL (0.083 %) nebulizer solution Use 3 mL via nebulizer every 6 hours as needed for wheezing/shortness of breath. - Nebulizer and Compressor For Neb 1 Each four times daily. as needed for cough wheeze or shortness of breath on exertion - oxycodone HCl (OXYCODONE, BULK, MISC) 5 mg every 6 hours as needed. - dicyclomine (BENTYL) 10 mg capsule Take 1 capsule by mouth before meals and at bedtime. - pantoprazole DR (PROTONIX) 40 mg tablet Take 1 tablet by mouth once daily. - ondansetron orally disintegrating (ZOFRAN ODT) 4 mg disintegrating tablet Take 1 tablet by mouth every 6 hours as needed for nausea/vomiting. - estradiol (CLIMARA) 0.05 mg/24 hr patch apply 1 patch topically once a week - PARoxetine (PAXIL) 10 mg tablet Take 1 tablet by mouth once daily. For hot flashes - albuterol HFA (VENTOLIN HFA) 90 mcg/actuation inhaler INHALE TWO PUFFS BY MOUTH EVERY 6 HOURS NEEDED FOR WHEEZING OR SHORTNESS OF BREATH - EPINEPHrine (EPIPEN) 0.3 mg/0.3 mL auto-injector GIVE ONE DOSE INTO LATERAL THIGH FOR ALLERGIC REACTION. REPEAT DOSE IN 5-15 MINUTES IF NOT IMPROVING Meds Comments as of 12/05/2022: Problem List As Of Date 02/23/2025 Noted Resolved Bipolar disorder, unspecified (HCC) [F31.9] 07/26/2006 09/01/2020 Asthma [J45.909] 07/26/2006 ESOPHAGEAL REFLUX [K21.9] 08/23/2006 Pruritus of genital organs [L29.3] 11/21/2006 01/03/2011 TOBACCO USE DISORDER [F17.200] 12/25/2006 Lumbago [M54.50] 03/09/2008 04/18/2018 Dysuria [R30.0] 05/21/2009 01/03/2011 Abdominal pain, generalized [R10.84] 10/05/2009 01/03/2011 Abdominal pain, epigastric [R10.13] 10/26/2009 03/15/2012 Disturbance of skin sensation [R20.9] 01/21/2010 01/03/2011 Cervicalgia [M54.2] 01/21/2010 01/03/2011 Abdominal pain, right upper quadrant [R10.11] 07/11/2011 03/15/2012 Gastritis/duodenitis [K29.70, K29.90] 07/21/2011 03/15/2012 Acute gastritis without mention of hemorrhage [*07/21/2011 03/15/2012 Irritable bowel syndrome [K58.9] 03/15/2012 09/01/2020 Abdominal pain, chronic, generalized [R10.84, G*07/04/2013 04/18/2018 ASCUS (atypical squamous cells of undetermined *09/24/2013 04/18/2018 Myofascial pain [M79.18] 11/07/2013 04/18/2018 Pain of left thumb [M79.645] 01/20/2015 04/18/2018 Raynaud's phenomenon without gangrene [I73.00] 02/01/2017 12/14/2019 Mixed stress and urge urinary incontinence [N39*12/13/2019 09/08/2021 Thoracic outlet syndrome [G54.0] 06/14/2020 03/12/2023 TOS (thoracic outlet syndrome) [G54.0] 10/18/2021 05/23/2022 Anxiety with depression [F41.8] 05/23/2022 Overactive bladder [N32.81] 07/28/2022 Pain of left shoulder region [M25.512] 12/28/2022 01/27/2025 Non-adherence to medical treatment [Z91.199] 03/12/2023 Other instructions from your clinician: - Continue taking Prednisone as prescribed. - Use Albuterol inhaler every 6 hours as needed for shortness of breath. - Continue using oxygen at 1 liter per minute; adjust as needed to maintain comfort and avoid shortness of breath. - Avoid smoking to prevent further lung irritation and complications. - Complete chest X-ray as scheduled. - Follow up with [facility] as scheduled. - Return for a follow-up appointment in one week. Prescriptions ordered this encounter Disp Refills Start End HYDROCODONE 5 MG-ACETAMINOPHEN 325 M* 9 ta* 0 02/23/2025 02/26/2025 Route: ORAL Sig: Take 1 tablet by mouth every 8 hours as needed for pain for up to 3 days. Medications Discontinued During This Encounter Prescriptions - HYDROcodone-acetaminophen (NORCO) 5-325 mg per tablet (Discontinued) Take 1 tablet by mouth every 12 hours as needed for pain for up to 3 days. Level of Service: OFFICE/OUTPATIENT ESTABLISHED MOD MDM 30 MIN [10363] Additional E/M codes: VISIT CPLX INHERENT EANDM ASSOC WITH MED * Follow-up and Disposition History for Encounter Date Provider Department Center 02/23/2025 [id number] PIRESWS [facility] Encounter Status:Closed by GERMAN PIRES on 02/23/25 PROGRESS Observed: 02/23/2025 9:40 AM Status: COMPLETED Source: [facility] HNO ID: [id number] Author: GERMAN PIRES APRN.ROTARY SWAGING MACHINE OPERATOR Service: ? Author Type: Nurse Specialist Type: Progress Notes Filed: 02/23/2025 10:39 Note Text: Subjective Patient ID: Anne is a 39 year old female who presents for Hospital F/U. HPI Presents for a hospital follow up visit. Review of records show she presented to [facility] ER with report of left flank pain and chest pain. Imaging showed left lower lobe pneumonia no CT evidence for acute intra-abdominal or intrapelvic pathology. Large consolidation noted in left lower lobe scattered groundglass opacities likely due to infectious etiology no evidence of PE. Today reports she ws in the hospital for 4 days. Limited informtion available in care everywhere and scanned documents. Pneumonia: - Hospitalized at [facility] for 3-4 days due to severe pneumonia. - Received IV antibiotics during hospitalization; completed antibiotic course. - Currently on Prednisone, resumed post-hospitalization. - Reports underwent CT and MRI with contrast during hospital stay. - Reports persistent cough, dyspnea, and rib pain, especially at night. - Using albuterol inhaler every 2-3 hours, with limited relief. - Coughing up clear sputum; previously noted black and green sputum during hospitalization. - On 1 L of supplemental oxygen, occasionally increasing to 2 L due to dyspnea. - Attempting to wean off oxygen; managed 2 hours without it yesterday. - Has an oxygen concentrator at home. - Denies smoking currently; had a brief relapse yesterday. - Experiencing rhinorrhea. - Reports stress related to ongoing divorce. Ears/Nose/Mouth/Throat: (+) runny nose Respiratory: (+) cough, (+) shortness of breath, (+) phlegm Musculoskeletal: (+) rib pain, (+) back pain, (+) left arm pain Psychiatric: (+) stress Objective BP 98/65 Pulse 80 Resp 16 Wt 65 kg (143 lb 4.8 oz) LMP 05/16/2015 SpO2 99% BMI 27.99 kg/m? Physical Exam Vitals and nursing note reviewed. Constitutional: Appearance: Normal appearance. HENT: Head: Normocephalic and atraumatic. Eyes: Conjunctiva/sclera: Conjunctivae normal. Cardiovascular: Rate and Rhythm: Normal rate and regular rhythm. Heart sounds: Normal heart sounds. Pulmonary: Effort: Pulmonary effort is normal. Breath sounds: Normal breath sounds. Comments: O2 NC 1L, Chest wall discomfort with cough Skin: General: Skin is warm and dry. Neurological: General: No focal deficit present. Mental Status: She is alert and oriented to person, place, and time. 1. Pneumonia of left lower lobe due to infectious organism (J18.9) 2. Hypoxia (R09.02) - Recent hospitalization for severe pneumonia; treated with IV antibiotics, now completed. - Currently on 1 L/min supplemental oxygen; experiencing dyspnea and cough. - Using albuterol inhaler every 2-3 hours. - Ordered chest X-ray to assess current pulmonary status. - Referred to pulmonology for further evaluation and management. - Advised to continue prednisone as prescribed and maintain oxygen therapy until symptoms improve. - Follow-up appointment scheduled in one week. 3. Influenza A (J10.1) 4. Tobacco use disorder (F17.200) - Recent relapse with smoking; educated on risks, especially while on oxygen therapy. - Patient committed to cessation; declined additional pharmacotherapy for smoking cessation. 5. Chest pain on breathing (R07.1) - Pleuritic chest pain, particularly at night; likely secondary to pneumonia and coughing. - Continue current pain management regimen. CXR today. Appt with pulmonology Recheck in office one week. Medical Decision Making: Problems: Moderate: Acute illness with systemic symptoms Data: Unique test result(s) reviewed: 3+ Unique test(s) ordered: 1 Risk: Moderate: Drug management Medical Decision Making Level: 4 - Moderate BMP Collected: 02/19/2025 5:17 AM Status: F Source: [facility] TYPE CODE TESTS RESULT OUT OF RANGE REFERENCE UNITS LAB GLU(LOINC) Glucose Level 78 70-105 mg/dL LAB NA(LOINC) Sodium Level 140 136-145 mmol/L LAB K(LOINC) Potassium Level 3.6 3.5-5.1 mmol/L LAB CL(LOINC) Chloride 105 98-107 mmol/L LAB CO2(LOINC) CO2 29 22-29 mmol/L LAB EBAL(LOINC) Electrolyte Balance 6.0 4.0-15.0 mEq/L LAB BUN(LOINC) BUN 7 7-18 mg/dL LAB CRE(LOINC) Creatinine Lvl (s) 0.55 0.55-1.02 mg/dL Result Comment: Testing perf ormed on Siemens Dimension EXL analyzer using a modified kinetic Manjula technique. LAB BC(LOINC) BUN/Creatinine Ratio 13 7-27 ratio LAB CA(LOINC) Calcium Lvl 8.7 8.4-10.2 mg/dL Performed By: #### BMP, MG, GFR #### [address] [address] MG Collected: 02/19/2025 5:17 AM Status: F Source: [facility] TYPE CODE TESTS RESULT OUT OF RANGE REFERENCE UNITS LAB MG(LOINC) Magnesium Lvl 2.0 1.8-2.4 mg/dL Performed By: #### BMP, MG, GFR #### [address] [address] .GFR Collected: 02/19/2025 5:17 AM Status: F Source: [facility] TYPE CODE TESTS RESULT OUT OF RANGE REFERENCE UNITS LAB eGFR(LOINC) Estimated Glomerular Filtration Rate 119 ml/min/1. 73sqm Result Comment: Stages of Chronic Kidney Disease (CKD) Stage Description eGFR(ml/min/1.73 sq.m.) CKD 1 Normal kidney function or >=90 normal kindney function with possible kidney damage (ex. Proteinuria) CKD 2 Kidney damage with mild loss 60-89 of kidney function CKD 3a Mild to moderate loss of kidney 45-59 function CKD 3b Moderate to severe loss of 30-44 of kindey function CKD 4 Severe loss of kidney function 15-29 CKD 5 Kidney failure <15 Note: (go live 2024) the eGFR calculation was updated to the 2020 CKD-EPI creatinine equation without a race factor to calculate the eGFR results. Performed By: #### BMP, MG, GFR #### [address] [address] LAC Collected: 02/18/2025 7:13 AM Status: F Source: [facility] TYPE CODE TESTS RESULT OUT OF RANGE REFERENCE UNITS LAB LAC(LOINC) Lactic Acid Lvl 1.2 0.4-2.0 mmol/L Performed By: #### LAC #### [address] [address] MYCO Collected: 02/18/2025 5:15 AM Status: F Source: [facility] TYPE CODE TESTS RESULT OUT OF RANGE REFERENCE UNITS LAB AMYCM(LOINC) Mycoplasma IgM Negative Result Comment: INTERPRETATI ON OF MYCOPLASMA IgM: Negative: IgM to M. pneumoniae Absent, or at levels below the assay limit of detection. Positive: IgM to M. pneumoniae Present. Invalid: Test results are invalid due to invalid internal control. Assay was performed in duplicate. Repeat testing is suggested if clinically indicated. LAB AMYCG(LOINC) Mycoplasma IgG Positive Result Comment: INTERPRETATI ON OF MYCOPLASMA IgG BY EIA: Negative: No detectable M. pneumoniae IgG antibody. Positive: Mycoplasma pneumoniae IgG antibody Detected. Equivocal: Equivocal for IgG antibodies to Mycoplasma pneumoniae. Suggest repeat testing in 10-14 days. Performed By: #### MYCO #### [place] [id number] [place] [address] CBC Collected: 5:13 AM Status: F Source: [facility] TYPE CODE TESTS RESULT OUT OF RANGE REFERENCE UNITS LAB WBC(LOINC) WBC 11.9 High 4.5-10.8 10 3/mcL LAB RBCCT(LOINC) RBC 4.19 4.10-5.30 10 6/mcL LAB HGB(LOINC) Hgb 13.4 12.0-16.0 G/dL LAB HCT(LOINC) Hct 39.6 34.0-46.0 % LAB MCV(LOINC) MCV 94.5 80.0-99.0 fL LAB MCH(LOINC) MCH 32.0 27.0-33.0 pg LAB MCHC(LOINC) MCHC 33.8 32.0-36.0 G/dL LAB RDW(LOINC) RDW 13.3 11.5-15.5 % LAB PLT(LOINC) Platelet 138 Low 150-450 10 3/mcL LAB MPV(LOINC) MPV 10.6 High 6.6-10.5 fL Performed By: #### GFR, CBC, ADIFF, ANEU, BMP, MG #### [address] [address] .AUTO DIFF Collected: 02/18/2025 5:13 AM Status: F Source: [facility] TYPE CODE TESTS RESULT OUT OF RANGE REFERENCE UNITS LAB YAW(LOINC) Neutrophil % 85.0 High 50.0-75.0 % LAB LYM(LOINC) Lymphocyte % 10.8 Low 20.0-40.0 % LAB MON(LOINC) Monocyte % 3.9 2.0-13.0 % LAB EO(LOINC) Eosinophil % 0.1 0.0-7.0 % LAB BAS(LOINC) Basophil % 0.2 0.0-2.5 % LAB ABLYM(LOINC) Lymphocyte, Absolute 1.3 0.9-4.3 10 3/mcL LAB LOLITA(LOINC) Monocyte, Absolute 0.5 0.1-1.4 10 3/mcL LAB AEOS(LOINC) Eosinophil, Absolute 0.0 0.0-0.7 10 3/mcL LAB ABAS(LOINC) Basophil, Absolute 0.0 0.0-0.2 10 3/mcL Performed By: #### GFR, CBC, ADIFF, ANEU, BMP, MG #### [address] [address] .NEUABS Collected: 5:13 AM Status: F Source: [facility] TYPE CODE TESTS RESULT OUT OF RANGE REFERENCE UNITS LAB ANEU(LOINC) Neutrophil, Absolute 10.1 High 2.3-8.1 10 3/mcL Performed By: #### GFR, CBC, ADIFF, ANEU, BMP, MG #### [address] [address] BMP Collected: 02/18/2025 5:13 AM Status: F Source: [facility] TYPE CODE TESTS RESULT OUT OF RANGE REFERENCE UNITS LAB GLU(LOINC) Glucose Level 89 70-105 mg/dL LAB NA(LOINC) Sodium Level 136 136-145 mmol/L LAB K(LOINC) Potassium Level 4.4 3.5-5.1 mmol/L LAB CL(LOINC) Chloride 102 98-107 mmol/L LAB CO2(LOINC) CO2 24 22-29 mmol/L LAB EBAL(LOINC) Electrolyte Balance 10.0 4.0-15.0 mEq/L LAB BUN(LOINC) BUN 9 7-18 mg/dL LAB CRE(LOINC) Creatinine Lvl (s) 0.76 0.55-1.02 mg/dL Result Comment: Testing perf ormed on Siemens Dimension EXL analyzer using a modified kinetic Manjula technique. LAB BC(LOINC) BUN/Creatinine Ratio 12 7-27 ratio LAB CA(LOINC) Calcium Lvl 8.6 8.4-10.2 mg/dL Performed By: #### GFR, CBC, ADIFF, ANEU, BMP, MG #### [address] [address] MG Collected: 02/18/2025 5:13 AM Status: F Source: [facility] TYPE CODE TESTS RESULT OUT OF RANGE REFERENCE UNITS LAB MG(LOINC) Magnesium Lvl 1.6 Low 1.8-2.4 mg/dL Performed By: #### GFR, CBC, ADIFF, ANEU, BMP, MG #### [facility] [address] [place], [place] [address] .GFR Collected: 02/18/2025 5:13 AM Status: F Source: [facility] TYPE CODE TESTS RESULT OUT OF RANGE REFERENCE UNITS LAB eGFR(LOINC) Estimated Glomerular Filtration Rate 102 ml/min/1. 73sqm Result Comment: Stages of Chronic Kidney Disease (CKD) Stage Description eGFR(ml/min/1.73 sq.m.) CKD 1 Normal kidney function or >=90 normal kindney function with possible kidney damage (ex. Proteinuria) CKD 2 Kidney damage with mild loss 60-89 of kidney function CKD 3a Mild to moderate loss of kidney 45-59 function CKD 3b Moderate to severe loss of 30-44 of kindey function CKD 4 Severe loss of kidney function 15-29 CKD 5 Kidney failure <15 Note: (go live 2024) the eGFR calculation was updated to the 2020 CKD-EPI creatinine equation without a race factor to calculate the eGFR results. Performed By: #### GFR, CBC, ADIFF, ANEU, BMP, MG #### [place] [address] [place], [place] [address] CT ANGIOGRAPHY CHEST W/CONTRAST Observed: 02/17/2025 10:29 PM Status: F Source: [facility] ORIGINAL EXAMINATION: CTA OF THE CHEST 02/17/2025 11:25 pm TECHNIQUE: CTA of the chest was performed after the administration of intravenous contrast. Multiplanar reformatted images are provided for review. MIP images are provided for review. Automated exposure control, iterative reconstruction, and/or weight based adjustment of the mA/kV was utilized to reduce the radiation dose to as low as reasonably achievable. COMPARISON: Chest, February 17, 2025 HISTORY: ORDERING SYSTEM PROVIDED HISTORY: Reason for Exam: chest pain; suspect PE FINDINGS: Pulmonary Arteries: Pulmonary arteries are adequately opacified for evaluation. No evidence of intraluminal filling defect to suggest pulmonary embolism. Main pulmonary artery is normal in caliber. Mediastinum: No evidence of mediastinal lymphadenopathy. The heart and pericardium demonstrate no acute abnormality. There is no acute abnormality of the thoracic aorta. Lungs/pleura: Large consolidation left lower lobe. Patchy ground-glass opacities with a centrilobular distribution within the remaining lobes. No evidence of pleural effusion or pneumothorax. Upper Abdomen: Limited images of the upper abdomen are unremarkable. Soft Tissues/Bones: No acute bone or soft tissue abnormality. IMPRESSION: 1. Large consolidation left lower lobe. Scattered ground-glass opacities also likely due to infectious etiology. 2. No evidence pulmonary embolism Interpreted by: Romelia Azevedo MD Preliminary Report By: Romelia Azevedo MD Electronically signed By Romelia Azevedo MD Dictated Date: 02/17/2025 11:26:30 PM Prelim Date: 02/17/2025 11:28:40 PM Sign Date: 02/17/2025 11:28:40 PM Ordering Provider: CONCEPCIÓN CLEMENT CT ABD/PELVIS W/ IV CONTRAST ONLY Observed: 02/17/2025 10:29 PM Status: F Source: [facility] ORIGINAL EXAMINATION: CT OF THE ABDOMEN AND PELVIS WITH CONTRAST02/17/2025 11:[address] ABDOMEN/PELVIS WITH CONTRAST TECHNIQUE: CT of the abdomen and pelvis was performed with the administration of intravenous contrast. Multiplanar reformatted images are provided for review. Automated exposure control, iterative reconstruction, and/or weight based adjustment of the mA/kV was utilized to reduce the radiation dose to as low as reasonably achievable. COMPARISON: CT abdomen pelvis January 15, 2012 HISTORY: ORDERING SYSTEM PROVIDED HISTORY: Reason for Exam: left flank pain FINDINGS: The size, density, and morphology of the liver, spleen, adrenals, kidneys, pancreas and unopacified loops of bowel are unremarkable. The opacified aorta demonstrates normal size and morphology without aneurysmal dilation or dissection. There are no enlarged lymph nodes by pathologic size criteria. There is no free fluid within the pelvis. The bladder and pelvic organs have an unremarkable CT appearance. The osseous structures are without gross lytic or sclerotic lesion. Large left lower lobe consolidation.. IMPRESSION: 1. Left lower lobe pneumonia. 2. No CT evidence for acute intra-abdominal or intrapelvic pathology Interpreted by: Romelia Azevedo MD Preliminary Report By: Romelia Azevedo MD Electronically signed By Romelia Azevedo MD Dictated Date: 02/17/2025 11:28:49 PM Prelim Date: 02/17/2025 11:30:39 PM Sign Date: 02/17/2025 11:30:39 PM Ordering Provider: CONCEPCIÓN CLEMENT XR CHEST 1 VIEW Observed: 02/17/2025 10:24 PM Status: F Source: [facility] ORIGINAL EXAMINATION: ONE XRAY VIEW OF THE CHEST02/17/2025 10:25 pm COMPARISON: None HISTORY: ORDERING SYSTEM PROVIDED HISTORY: Reason for Exam: chest pain FINDINGS: Cardiomediastinal contours are within normal limits. Hazy perihilar airspace opacities are present. Retrocardiac opacity. No pleural effusion or visible pneumothorax. The bony thorax appears intact. IMPRESSION: Hazy perihilar airspace opacities are nonspecific, could reflect a infectious or inflammatory process. Retrocardiac opacity concerning for area of consolidation from possible pneumonia. I have personally reviewed the images of this examination and agree with the resident's findings and interpretation. Interpreted by: Kurt Del Valle Preliminary Report By: Bert Hall Electronically signed By Kurt Del Valle Dictated Date: 02/17/2025 10:36:11 PM Prelim Date: 02/17/2025 10:39:57 PM Sign Date: 02/17/2025 10:42:17 PM Ordering Provider: CONCEPCIÓN CHAWLAU Collected: 02/17/2025 9:31 PM Status: F Source: [facility] TYPE CODE TESTS RESULT OUT OF RANGE REFERENCE UNITS LAB PREGU(LOINC) Test Urine Negative LAB PRUG1(LOINC) test (u) int HCG not detected. Unknown Performed By: #### PREGU ### # [facility] [address] [place], [place] [address] CBC Collected: 9:31 PM Status: F Source: [facility] TYPE CODE TESTS RESULT OUT OF RANGE REFERENCE UNITS LAB WBC(LOINC) WBC 16.6 High 4.5-10.8 10 3/mcL LAB RBCCT(LOINC) RBC 4.67 4.10-5.30 10 6/mcL LAB HGB(LOINC) Hgb 15.0 12.0-16.0 G/dL LAB HCT(LOINC) Hct 43.7 34.0-46.0 % LAB MCV(LOINC) MCV 93.6 80.0-99.0 fL LAB MCH(LOINC) MCH 32.1 27.0-33.0 pg LAB MCHC(LOINC) MCHC 34.3 32.0-36.0 G/dL LAB RDW(LOINC) RDW 13.3 11.5-15.5 % LAB PLT(LOINC) Platelet 147 Low 150-450 10 3/mcL LAB MPV(LOINC) MPV 9.3 6.6-10.5 fL Performed By: #### CBC, ADIF F, ANEU, MDW, BMP, GFR, DIMER, TROPHS #### [address] [address] .AUTO DIFF Collected: 02/17/2025 9:31 PM Status: F Source: [facility] TYPE CODE TESTS RESULT OUT OF RANGE REFERENCE UNITS LAB YAW(LOINC) Neutrophil % 91.2 High 50.0-75.0 % LAB LYM(LOINC) Lymphocyte % 3.6 Low 20.0-40.0 % LAB MON(LOINC) Monocyte % 5.0 2.0-13.0 % LAB EO(LOINC) Eosinophil % 0.0 0.0-7.0 % LAB BAS(LOINC) Basophil % 0.2 0.0-2.5 % LAB ABLYM(LOINC) Lymphocyte, Absolute 0.6 Low 0.9-4.3 10 3/mcL LAB LOLITA(LOINC) Monocyte, Absolute 0.8 0.1-1.4 10 3/mcL LAB AEOS(LOINC) Eosinophil, Absolute 0.0 0.0-0.7 10 3/mcL LAB ABAS(LOINC) Basophil, Absolute 0.0 0.0-0.2 10 3/mcL Performed By: #### CBC, ADIF F, ANEU, MDW, BMP, GFR, DIMER, TROPHS #### [address] [address] .NEUABS Collected: 9:31 PM Status: F Source: [facility] TYPE CODE TESTS RESULT OUT OF RANGE REFERENCE UNITS LAB ANEU(LOINC) Neutrophil, Absolute 15.2 High 2.3-8.1 10 3/mcL Performed By: #### CBC, ADIF F, ANEU, MDW, BMP, GFR, DIMER, TROPHS #### [address] [address] .MDW Collected: 02/17/2025 9:31 PM Status: F Source: [facility] TYPE CODE TESTS RESULT OUT OF RANGE REFERENCE UNITS LAB MDW(LOINC) Monocyte Distribution Width 28.11 High 0.00-20.00 Result Comment: For adults i n ED, MDW>20.0 may be associated with a higher risk of sepsis during the first 12hrs of hospital admission Performed By: #### CBC, ADIF F, ANEU, MDW, BMP, GFR, DIMER, TROPHS #### [address] [address] BMP Collected: 02/17/2025 9:31 PM Status: F Source: [facility] TYPE CODE TESTS RESULT OUT OF RANGE REFERENCE UNITS LAB GLU(LOINC) Glucose Level 135 High 70-105 mg/dL LAB NA(LOINC) Sodium Level 133 Low 136-145 mmol/L LAB K(LOINC) Potassium Level 3.4 Low 3.5-5.1 mmol/L LAB CL(LOINC) Chloride 97 Low 98-107 mmol/L LAB CO2(LOINC) CO2 25 22-29 mmol/L LAB EBAL(LOINC) Electrolyte Balance 11.0 4.0-15.0 mEq/L LAB BUN(LOINC) BUN 9 7-18 mg/dL LAB CRE(LOINC) Creatinine Lvl (s) 0.96 0.55-1.02 mg/dL Result Comment: Testing perf ormed on Siemens Dimension EXL analyzer using a modified kinetic Manjula technique. LAB BC(LOINC) BUN/Creatinine Ratio 9 7-27 ratio LAB CA(LOINC) Calcium Lvl 9.6 8.4-10.2 mg/dL Performed By: #### CBC, ADIF F, ANEU, MDW, BMP, GFR, DIMER, TROPHS #### [address] [address] .GFR Collected: 02/17/2025 9:31 PM Status: F Source: [facility] CODE TESTS RESULT OUT OF RANGE REFERENCE UNITS LAB eGFR(LOINC) Estimated Glomerular Filtration Rate 77 ml/min/1. 73sqm Result Comment: Stages of Chronic Kidney Disease (CKD) Stage Description eGFR(ml/min/1.73 sq.m.) CKD 1 Normal kidney function or >=90 normal kindney function with possible kidney damage (ex. Proteinuria) CKD 2 Kidney damage with mild loss 60-89 of kidney function CKD 3a Mild to moderate loss of kidney 45-59 function CKD 3b Moderate to severe loss of 30-44 of kindey function CKD 4 Severe loss of kidney function 15-29 CKD 5 Kidney failure <15 Note: (go live 2024) the eGFR calculation was updated to the 2020 CKD-EPI creatinine equation without a race factor to calculate the eGFR results. Performed By: #### CBC, ADIF F, ANEU, MDW, BMP, GFR, DIMER, TROPHS #### [place] [address] [place], [place] [address] DIMER Collected: 9:31 PM Status: F Source: [facility] TYPE CODE TESTS RESULT OUT OF RANGE REFERENCE UNITS LAB DIMER(LOINC) D-Dimer 721 High 0-230 ng/mL D-DU Result Comment: Results repo rted in D-DU ng/mL. Positive for D-dimer. A positive D-Dimer may occur in the following: DVT, PE, DIC, Trauma, Cancer, Sepsis, , Rheumatoid arthritis, Myocardial infarction and Cirrhosis. The presence of Rheumatoid Factor and HAMA (human mouse antibody) produces an overestimation of test results. The result of the D-Dimer test should be evaluated in the context of all the clinical and laboratory data available. In those instances where the laboratory result does not agree with the clinical evaluation, additional tests should be performed accordingly. If the D-Dimer result is used to exclude DVT or PE, the recommended cutoff value is less than 230 ng/mL. The D-Dimer result should not be used alone to rule in DVT/PE, but should be used in conjunction with a clinical pretest probability (PTP)assessment model to exclude venous thromboembolism (VTE) in patients suspected of deep venous thrombosis (DVT) and pulmonary embolism (PE). Performed By: #### CBC, ADIF F, ANEU, MDW, BMP, GFR, DIMER, TROPHS #### [place] [address] [place], [place] [address] TROPHS Collected: 02/17/2025 9:31 PM Status: F Source: [facility] TYPE CODE TESTS RESULT OUT OF RANGE REFERENCE UNITS LAB HSTROP(LOINC) High Sensitivity Troponin I <4 0-51 ng/L Result Comment: High Sensiti ve Troponin I Reference Ranges: Female: 0-51 ng/L Male: 0-76 ng/L Testing performed on [employer] using a homogeneous sandwich chemiluminescent immunoassay based on [employer] technology. Performed By: #### CBC, ADIF F, ANEU, MDW, BMP, GFR, DIMER, TROPHS #### [facility] [address] [place], [place] [address] LUZ ELENA Observed: 02/17/2025 9:31 PM Status: F Source: [facility] . MICRO - Microbiology PROCEDURE: Legionella Urine Ag [*1] SOURCE: Urine BODY SITE: COLLECTED DATE/TIME: 02/17/2025 21:31 EDT RECEIVED DATE/TIME: 02/18/2025 16:05 EDT START DATE/TIME: 02/18/2025 16:06 EDT FREE TEXT SOURCE: FINAL REPORTS Final Report [] Verified Date/Time/Personnel: 02/18/2025 16:43 EDT Presumptive negative for L. pneumophila serogroup 1 antigen in urine, suggesting no recent or current infection. Legionnaire's disease cannot be ruled out since other serogroups and species may also cause disease. Performing Locations *1: This test was performed at: [facility], [address] [place] [address], [employer] [facility] , UA Collected: 02/17/2025 9:31 PM Status: F Source: [facility] TYPE CODE TESTS RESULT OUT OF RANGE REFERENCE UNITS LAB SPCUA(LOINC) UA Specimen Type Clean Catch LAB CLRUA(LOINC) UA Color Mary LAB APPUA(LOINC) UA Appear Slightly Cloudy Abnormal Clear LAB SGUA(LOINC) UA Spec Grav >=1.030 Abnormal 1.015-1.025 LAB GLUA(LOINC) UA Glucose Negative Negative mg/dL LAB BILUA(LOINC) UA Bili Negative Negative LAB KETUA(LOINC) UA Ketones Negative Negative mg/dL LAB BLDUA(LOINC) UA Blood Negative Negative LAB PHUA(LOINC) UA pH 6.0 5.0 - 8.0 LAB PROUA(LOINC) UA Protein >=300 Abnormal Negative mg/dL LAB UROUA(LOINC) UA Urobilinogen 1.0 0.2-1.0 E.U ./dL LAB NITUA(LOINC) UA Nitrite Negative Negative LAB LEUUA(LOINC) UA Leuk Est Negative Negative Performed By: #### UA, UAMIC AO #### [facility] [address], [place] [address] .URINALYSIS MICROSCOPIC (AO) Collected: 02/17/2025 9: 31 PM Status: F Source: [facility] TYPE CODE TESTS RESULT OUT OF RANGE REFERENCE UNITS LAB WBCUA(LOINC) UA WBC 0-5 Abnormal None Seen /hpf LAB RBCUA(LOINC) UA RBC 0-5 Abnormal None Seen /hpf LAB EPIUA(LOINC) UA Squam Epithelial 5-10 Abnormal None Seen /hpf LAB MUCUA(LOINC) UA Mucous 2+ /hpf LAB BACUA(LOINC) UA Bacteria Trace Abnormal /hpf Performed By: #### UA, UAMIC AO #### [facility] [address], [place] [address] SPAG Observed: 02/17/2025 9:31 PM Status: F Source: [facility] . MICRO - Microbiology PROCEDURE: Streptococcus Pneumoniae Urine Antig [^1 *1] SOURCE: Urine BODY SITE: COLLECTED DATE/TIME: 02/17/2025 21:31 EDT RECEIVED DATE/TIME: 02/18/2025 16:05 EDT START DATE/TIME: 02/18/2025 16:06 EDT FREE TEXT SOURCE: FINAL REPORTS Final Report [] Verified Date/Time/Personnel: 02/18/2025 16:36 EDT Presumptive negative for pneumococcal pneumonia, suggesting no current or recent pneumococcal infection. Infection due to Strep pneumoniae cannot be ruled out since the antigen present in the sample may be below the detection limit of the test. Interpretive Data ^1: Streptococcus Pneumoniae Urine Antig This test has not been evaluated on patients taking antibiotics for greater than 24 hours or on patients who have recently completed an antibiotic regimen. The accuracy of this test has not been proven in young children. Performing Locations *1: This test was performed at: [facility], [address] [place] [address], [id number] , PROGRESS Observed: 02/16/2025 7:01 AM Status: COMPLETED Source: [facility] ID: [id number] Author: GREMAN PIRES APRN.ROTARY SWAGING MACHINE OPERATOR Service: ? Author Type: Nurse Specialist Type: Progress Notes Filed: 02/16/2025 07:43 Note Text: Subjective ?Quick Links Last Note in Specialty Snapshot Edit RFV/CC Patient ID: Anne is a 39 year old female who presents for Hospital F/U. HPI Presents for emergency department follow-up visit. She was seen at [facility] February 13, 2025 with cough shortness of breath body aches nausea nasal congestion and drainage and back pain that had been getting worse 2 weeks prior to arrival. Chest x-ray was completed and negative for acute findings. Lab work was unremarkable. She was treated with IV fluids and felt improved. She was discharged home and advised to push fluids, Tylenol and ibuprofen as needed. Provided with codeine cough syrup. Today reports follow-up with primary care in 5 to 7 days. Today reports not feeling improved. Influenza A: - Diagnosed with influenza A; not previously treated with Tamiflu. - Persistent cough, dyspnea, wheezing, and congestion. - Denies fever, headache, or myalgias. - Productive cough with expectoration of phlegm. - Using albuterol inhaler with minimal relief. - Has a nebulizer at home, but it is non-functional. - Has 2 prednisone tablets remaining from a previous prescription. - Drinking Propel water to maintain hydration. 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 Cough: difficult to control. Wheeze: yes Short of breath: yes Rash developed with cough syrup but has continued to take it. Headache body aches have resolved. Still with sinus drainage and congestion. ?Quick Review Review Full History Edit History Full Problem List Meds - oxycodone HCl (OXYCODONE, BULK, MISC) sucralfate (CARAFATE) 1 gram tablet dicyclomine (BENTYL) [address] (PROTONIX) 40 mg tablet ondansetron orally disintegrating (ZOFRAN ODT) 4 mg disintegrating tablet estradiol (CLIMARA) 0.05 mg/24 hr patch PARoxetine (PAXIL) 10 mg tablet albuterol HFA (VENTOLIN HFA) 90 mcg/actuation inhaler EPINEPHrine (EPIPEN) 0.3 mg/0.3 mL auto-injector oseltamivir (TAMIFLU) 75 mg capsule predniSONE (DELTASONE) 10 mg tablet dextromethorphan polistirex ER (DELSYM) 30 mg/5 mL oral liquid albuterol (PROVENTIL) 2.5 mg /3 mL (0.083 %) nebulizer solution Nebulizer and Compressor For Neb triamcinolone acetonide 40 mg injection (KeNALog 40) --- PMH - Abnormal mammogram Anxiety and depression ASCUS (atypical squamous cells of undetermined significance) on Pap smear ASTHMA UNSPECIFIED BIPOLAR DISORDER NOS COVID Esophageal reflux Hidradenitis Hot flashes Insomnia Irritable bowel syndrome Mastodynia Mixed stress and urge urinary incontinence Nausea Pilonidal cyst with abscess PTSD (post-traumatic stress disorder) Raynaud's phenomenon without gangrene Thoracic outlet syndrome Tobacco use disorder Vaginal dryness : Objective ?Quick Links Add Vitals Labs Imaging Results Review ?? Avoid pulling in long tables of results. Comment on relevant results to support your medical decision making. BP 99/61 Pulse 98 Temp 37.7 ?C (99.9 ?F) Resp 16 Wt 63 kg (138 lb 14.2 oz) LMP 05/16/2015 SpO2 95% BMI 27.13 kg/m? Physical Exam Vitals and nursing note reviewed. Constitutional: Appearance: She is ill-appearing. HENT: Head: Normocephalic and atraumatic. Right Ear: Tympanic membrane and ear canal normal. Left Ear: Tympanic membrane and ear canal normal. Nose: Mucosal edema and rhinorrhea present. Right Sinus: No maxillary sinus tenderness or frontal sinus tenderness. Left Sinus: No maxillary sinus tenderness or frontal sinus tenderness. Mouth/Throat: Lips: [place]. Mouth: Mucous membranes are moist. Pharynx: Oropharynx is clear. Tonsils: No tonsillar exudate. Eyes: Conjunctiva/sclera: Conjunctivae normal. Cardiovascular: Rate and Rhythm: Normal rate and regular rhythm. Heart sounds: Normal heart sounds. Pulmonary: Effort: Pulmonary effort is normal. Breath sounds: Normal breath sounds and air entry. Comments: + frequent cough Skin: General: Skin is warm and dry. Comments: diffuse lacy flat erythematous rash over arms and legs Neurological: General: No focal deficit present. Mental Status: She is alert and oriented to person, place, and time. ASSESSMENT/PLAN: 1. Influenza A - ICD9: 487.1, ICD10: J10.1 (primary diagnosis) Seen in the ER positive for influenza A, did not receive Tamiflu due to duration of illness. Still feeling sick. Will try Tamiflu at this point to see if helpful. Continued influenza A versus secondary bacterial infection if not feeling improved with treatment may have secondary bacterial infection. She will let us know if not feeling improved by tomorrow having started treatment today. May need to switch therpy. - OSELTAMIVIR 75 MG CAPSULE - PREDNISONE 10 MG TABLET - DEXTROMETHORPHAN POLISTIREX ER 30 MG/5 ML ORAL SUSP EXT.RELEASE 12HR - ALBUTEROL SULFATE 2.5 MG/3 ML (0.083 %) SOLUTION FOR NEBULIZATION - NEBULIZER AND COMPRESSOR - TRIAMCINOLONE ACETONIDE 40 MG/ML SUSPENSION FOR INJECTION 3. Adverse effect of drug, initial encounter - ICD9: E947.9, ICD10: T50.905A She developed a diffuse rash attributed to codeine guaifenesin cough syrup however continued to take take it for her cough. Endorse stopping the medication. Switch to Delsym for her cough - PREDNISONE 10 MG TABLET - TRIAMCINOLONE ACETONIDE 40 MG/ML SUSPENSION FOR INJECTION 4. Acute cough - ICD9: 786.2, ICD10: R05.1 Kenalog injection in the office, prednisone taper at home. Inhaler and nebulizer as needed - PREDNISONE 10 MG TABLET - DEXTROMETHORPHAN POLISTIREX ER 30 MG/5 ML ORAL SUSP EXT.RELEASE 12HR - ALBUTEROL SULFATE 2.5 MG/3 ML (0.083 %) SOLUTION FOR NEBULIZATION - NEBULIZER AND COMPRESSOR - TRIAMCINOLONE ACETONIDE 40 MG/ML SUSPENSION FOR INJECTION 5. Wheezing - ICD9: 786.07, ICD10: R06.2 - PREDNISONE 10 MG TABLET 2. Gastroesophageal reflux disease, unspecified whether esophagitis present - ICD9: 530.81, ICD10: K21.9 satble, continue current treatment unchanged German Pires, STUDENT CAREER DEVELOPMENT SPECIALIST.ROTARY SWAGING MACHINE OPERATOR Medical Decision Making: Problems: Low: Acute, uncomplicated illness or injury Data: Unique source(s) for external note(s) reviewed: 1 Unique test result(s) reviewed: 3+ Risk: Moderate: Drug management Medical Decision Making Level: 4 - Moderate CNOV Observed: 02/16/2025 7:00 AM Status: COMPLETED Source: [facility] Office Visit (INTMWS) ANNE CHUNG ([id number]) 1985 F Date Time Provider Department 02/16/25 7:00 AM GERMAN PIRES INTMWS During your visit today, we recorded the following information about you: Temperature Pulse Respiration Blood pressure 99.9 degrees 98/minute 16/minute 99/61 Weight 63 kg German Pires, EDU.ROTARY SWAGING MACHINE OPERATOR 02/16/2025 7:43 AM Signed Subjective ?Quick Links Last Note in Specialty Snapshot Edit RFV/CC Patient ID: Anne is a 39 year old female who presents for Hospital F/U. HPI Presents for emergency department follow-up visit. She was seen at [facility] February 13, 2025 with cough shortness of breath body aches nausea nasal congestion and drainage and back pain that had been getting worse 2 weeks prior to arrival. Chest x-ray was completed and negative for acute findings. Lab work was unremarkable. She was treated with IV fluids and felt improved. She was discharged home and advised to push fluids, Tylenol and ibuprofen as needed. Provided with codeine cough syrup. Today reports follow-up with primary care in 5 to 7 days. Today reports not feeling improved. Influenza A: - Diagnosed with influenza A; not previously treated with Tamiflu. - Persistent cough, dyspnea, wheezing, and congestion. - Denies fever, headache, or myalgias. - Productive cough with expectoration of phlegm. - Using albuterol inhaler with minimal relief. - Has a nebulizer at home, but it is non-functional. - Has 2 prednisone tablets remaining from a previous prescription. - Drinking Propel water to maintain hydration. 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 Cough: difficult to control. Wheeze: yes Short of breath: yes Rash developed with cough syrup but has continued to take it. Headache body aches have resolved. Still with sinus drainage and congestion. ?Quick Review Review Full History Edit History Full Problem List Meds - oxycodone HCl (OXYCODONE, BULK, MISC) sucralfate (CARAFATE) 1 gram tablet dicyclomine (BENTYL) [address] (PROTONIX) 40 mg tablet ondansetron orally disintegrating (ZOFRAN ODT) 4 mg disintegrating tablet estradiol (CLIMARA) 0.05 mg/24 hr patch PARoxetine (PAXIL) 10 mg tablet albuterol HFA (VENTOLIN HFA) 90 mcg/actuation inhaler EPINEPHrine (EPIPEN) 0.3 mg/0.3 mL auto-injector oseltamivir (TAMIFLU) 75 mg capsule predniSONE (DELTASONE) 10 mg tablet dextromethorphan polistirex ER (DELSYM) 30 mg/5 mL oral liquid albuterol (PROVENTIL) 2.5 mg /3 mL (0.083 %) nebulizer solution Nebulizer and Compressor For Neb triamcinolone acetonide 40 mg injection (KeNALog 40) --- PMH - Abnormal mammogram Anxiety and depression ASCUS (atypical squamous cells of undetermined significance) on Pap smear ASTHMA UNSPECIFIED BIPOLAR DISORDER NOS COVID Esophageal reflux Hidradenitis Hot flashes Insomnia Irritable bowel syndrome Mastodynia Mixed stress and urge urinary incontinence Nausea Pilonidal cyst with abscess PTSD (post-traumatic stress disorder) Raynaud's phenomenon without gangrene Thoracic outlet syndrome Tobacco use disorder Vaginal dryness : Objective ?Quick Links Add Vitals Labs Imaging Results Review ?? Avoid pulling in long tables of results. Comment on relevant results to support your medical decision making. BP 99/61 Pulse 98 Temp 37.7 ?C (99.9 ?F) Resp 16 Wt 63 kg (138 lb 14.2 oz) LMP 05/16/2015 SpO2 95% BMI 27.13 kg/m? Physical Exam Vitals and nursing note reviewed. Constitutional: Appearance: She is ill-appearing. HENT: Head: Normocephalic and atraumatic. Right Ear: Tympanic membrane and ear canal normal. Left Ear: Tympanic membrane and ear canal normal. Nose: Mucosal edema and rhinorrhea present. Right Sinus: No maxillary sinus tenderness or frontal sinus tenderness. Left Sinus: No maxillary sinus tenderness or frontal sinus tenderness. Mouth/Throat: Lips: [place]. Mouth: Mucous membranes are moist. Pharynx: Oropharynx is clear. Tonsils: No tonsillar exudate. Eyes: Conjunctiva/sclera: Conjunctivae normal. Cardiovascular: Rate and Rhythm: Normal rate and regular rhythm. Heart sounds: Normal heart sounds. Pulmonary: Effort: Pulmonary effort is normal. Breath sounds: Normal breath sounds and air entry. Comments: + frequent cough Skin: General: Skin is warm and dry. Comments: diffuse lacy flat erythematous rash over arms and legs Neurological: General: No focal deficit present. Mental Status: She is alert and oriented to person, place, and time. ASSESSMENT/PLAN: 1. Influenza A - ICD9: 487.1, ICD10: J10.1 (primary diagnosis) Seen in the ER positive for influenza A, did not receive Tamiflu due to duration of illness. Still feeling sick. Will try Tamiflu at this point to see if helpful. Continued influenza A versus secondary bacterial infection if not feeling improved with treatment may have secondary bacterial infection. She will let us know if not feeling improved by tomorrow having started treatment today. May need to switch therpy. - OSELTAMIVIR 75 MG CAPSULE - PREDNISONE 10 MG TABLET - DEXTROMETHORPHAN POLISTIREX ER 30 MG/5 ML ORAL SUSP EXT.RELEASE 12HR - ALBUTEROL SULFATE 2.5 MG/3 ML (0.083 %) SOLUTION FOR NEBULIZATION - NEBULIZER AND COMPRESSOR - TRIAMCINOLONE ACETONIDE 40 MG/ML SUSPENSION FOR INJECTION 3. Adverse effect of drug, initial encounter - ICD9: E947.9, ICD10: T50.905A She developed a diffuse rash attributed to codeine guaifenesin cough syrup however continued to take take it for her cough. Endorse stopping the medication. Switch to Delsym for her cough - PREDNISONE 10 MG TABLET - TRIAMCINOLONE ACETONIDE 40 MG/ML SUSPENSION FOR INJECTION 4. Acute cough - ICD9: 786.2, ICD10: R05.1 Kenalog injection in the office, prednisone taper at home. Inhaler and nebulizer as needed - PREDNISONE 10 MG TABLET - DEXTROMETHORPHAN POLISTIREX ER 30 MG/5 ML ORAL SUSP EXT.RELEASE 12HR - ALBUTEROL SULFATE 2.5 MG/3 ML (0.083 %) SOLUTION FOR NEBULIZATION - NEBULIZER AND COMPRESSOR - TRIAMCINOLONE ACETONIDE 40 MG/ML SUSPENSION FOR INJECTION 5. Wheezing - ICD9: 786.07, ICD10: R06.2 - PREDNISONE 10 MG TABLET 2. Gastroesophageal reflux disease, unspecified whether esophagitis present - ICD9: 530.81, ICD10: K21.9 satble, continue current treatment unchanged German Pires APRN.CNS Medical Decision Making: Problems: Low: Acute, uncomplicated illness or injury Data: Unique source(s) for external note(s) reviewed: 1 Unique test result(s) reviewed: 3+ Risk: Moderate: Drug management Medical Decision Making Level: 4 - Moderate German Pires APRN.CNS 02/16/2025 7:29 AM Signed - Start taking Tamiflu as prescribed for influenza A. - Discontinue current cough medicine and switch to Delsym, available over the counter. - A Kenalog shot was administered in the office to help with your cough and rash. - A prescription for a nebulizer and compressor has been sent to [facility]. - Push fluids to stay hydrated. - If symptoms do not improve in a couple of days, contact the office; an antibiotic may be prescribed. - Excused from work until Sunday to allow time for recovery. Allergies As of Date: 02/16/2025 Noted Allergy Reaction BEES 06/23/2011 10 - Anaphylaxis Comments: Pt had swelling, was given epipen at ER. CODEINE-GUAIFENESIN 02/16/2025 2 - Rash Comments: Script per ER for cough with subsequent rash 02/13/2025 DIAZEPAM 08/03/2015 4 - Hives Comments: Hives on chest only. MORPHINE 11/10/2014 2 - Rash 9 - Itching Comments: Left arm turned red when given IV morphine PENICILLINS 02/14/2011 14 - Other: See Comments 4 - Hives Comments: Patient refuses due to family allergy to PCN. BENZONATATE 11/03/2017 2 - Rash Date Reviewed: 02/16/2025 Reviewed by: Em Khanna LPN - Fully Assessed Reason for Visit: Hospital F/U [57] Primary Visit Diagnosis:Influenza A [J10.1] Other Visit Diagnoses:Gastroesophageal reflux disease, unspecified whether esophagitis present [K21.9] Adverse effect of drug, initial encounter [T50.966T] Acute cough [R05.1] Wheezing [R06.2] Order(s):oseltamivir (TAMIFLU) 75 mg capsuleTake 1 capsule by mouth two times a day for 5 days. Take with foodDisp: 10 capsuleRfl: 0 predniSONE (DELTASONE) 10 mg tabletTake 4 tabs daily x 3 days, then 3 tabs x 3 days, 2 tabs x 3 days, then 1 tab x3 days with food.Disp: 30 tabletRfl: 0 dextromethorphan polistirex ER (DELSYM) 30 mg/5 mL oral liquidTake 10 mL by mouth two times a day for 14 days.Disp: 296 mLRfl: 0 albuterol (PROVENTIL) 2.5 mg /3 mL (0.083 %) nebulizer solutionUse 3 mL via nebulizer every 6 hours as needed for wheezing/shortness of breath.Disp: 75 mLRfl: 2 Nebulizer and Compressor For Neb1 Each four times daily. as needed for cough wheeze or shortness of breath on exertionDisp: 1 EachRfl: 0 [] triamcinolone acetonide 40 mg injection (KeNALog 40)Disp: Rfl: Prescriptions as of 02/16/2025 - oseltamivir (TAMIFLU) 75 mg capsule Take 1 capsule by mouth two times a day for 5 days. Take with food - predniSONE (DELTASONE) 10 mg tablet Take 4 tabs daily x 3 days, then 3 tabs x 3 days, 2 tabs x 3 days, then 1 tab x3 days with food. - dextromethorphan polistirex ER (DELSYM) 30 mg/5 mL oral liquid Take 10 mL by mouth two times a day for 14 days. - albuterol (PROVENTIL) 2.5 mg /3 mL (0.083 %) nebulizer solution Use 3 mL via nebulizer every 6 hours as needed for wheezing/shortness of breath. - Nebulizer and Compressor For Neb 1 Each four times daily. as needed for cough wheeze or shortness of breath on exertion - oxycodone HCl (OXYCODONE, BULK, MISC) 5 mg every 6 hours as needed. - sucralfate (CARAFATE) 1 gram tablet Take 1 tablet by mouth four times daily. - dicyclomine (BENTYL) 10 mg capsule Take 1 capsule by mouth before meals and at bedtime. - pantoprazole DR (PROTONIX) 40 mg tablet Take 1 tablet by mouth once daily. - ondansetron orally disintegrating (ZOFRAN ODT) 4 mg disintegrating tablet Take 1 tablet by mouth every 6 hours as needed for nausea/vomiting. - estradiol (CLIMARA) 0.05 mg/24 hr patch apply 1 patch topically once a week - PARoxetine (PAXIL) 10 mg tablet Take 1 tablet by mouth once daily. For hot flashes - albuterol HFA (VENTOLIN HFA) 90 mcg/actuation inhaler INHALE TWO PUFFS BY MOUTH EVERY 6 HOURS NEEDED FOR WHEEZING OR SHORTNESS OF BREATH - EPINEPHrine (EPIPEN) 0.3 mg/0.3 mL auto-injector GIVE ONE DOSE INTO LATERAL THIGH FOR ALLERGIC REACTION. REPEAT DOSE IN 5-15 MINUTES IF NOT IMPROVING Meds Comments as of 12/05/2022: Problem List As Of Date 02/16/2025 Noted Resolved Bipolar disorder, unspecified (HCC) [F31.9] 07/26/2006 09/01/2020 Asthma [J45.909] 07/26/2006 ESOPHAGEAL REFLUX [K21.9] 08/23/2006 Pruritus of genital organs [L29.3] 11/21/2006 01/03/2011 TOBACCO USE DISORDER [F17.200] 12/25/2006 Lumbago [M54.50] 03/09/2008 04/18/2018 Dysuria [R30.0] 05/21/2009 01/03/2011 Abdominal pain, generalized [R10.84] 10/05/2009 01/03/2011 Abdominal pain, epigastric [R10.13] 10/26/2009 03/15/2012 Disturbance of skin sensation [R20.9] 01/21/2010 01/03/2011 Cervicalgia [M54.2] 01/21/2010 01/03/2011 Abdominal pain, right upper quadrant [R10.11] 07/11/2011 03/15/2012 Gastritis/duodenitis [K29.70, K29.90] 07/21/2011 03/15/2012 Acute gastritis without mention of hemorrhage [*07/21/2011 03/15/2012 Irritable bowel syndrome [K58.9] 03/15/2012 09/01/2020 Abdominal pain, chronic, generalized [R10.84, G*07/04/2013 04/18/2018 ASCUS (atypical squamous cells of undetermined *09/24/2013 04/18/2018 Myofascial pain [M79.18] 11/07/2013 04/18/2018 Pain of left thumb [M79.645] 01/20/2015 04/18/2018 Raynaud's phenomenon without gangrene [I73.00] 02/01/2017 12/14/2019 Mixed stress and urge urinary incontinence [N39*12/13/2019 09/08/2021 Thoracic outlet syndrome [G54.0] 06/14/2020 03/12/2023 TOS (thoracic outlet syndrome) [G54.0] 10/18/2021 05/23/2022 Anxiety with depression [F41.8] 05/23/2022 Overactive bladder [N32.81] 07/28/2022 Pain of left shoulder region [M25.512] 12/28/2022 01/27/2025 Non-adherence to medical treatment [Z91.199] 03/12/2023 Other instructions from your clinician: - Start taking Tamiflu as prescribed for influenza A. - Discontinue current cough medicine and switch to Delsym, available over the counter. - A Kenalog shot was administered in the office to help with your cough and rash. - A prescription for a nebulizer and compressor has been sent to [facility]. - Push fluids to stay hydrated. - If symptoms do not improve in a couple of days, contact the office; an antibiotic may be prescribed. - Excused from work until Sunday to allow time for recovery. Prescriptions ordered this encounter Disp Refills Start End OSELTAMIVIR 75 MG CAPSULE 10 c* 0 02/16/2025 02/21/2025 Route: ORAL Sig: Take 1 capsule by mouth two times a day for 5 days. Take with food PREDNISONE 10 MG TABLET 30 t* 0 02/16/2025 02/28/2025 Sig: Take 4 tabs daily x 3 days, then 3 tabs x 3 days, 2 tabs x 3 days, then 1 tab x3 days with food. DEXTROMETHORPHAN POLISTIREX ER 30 MG* 296 * 0 02/16/2025 03/02/2025 Route: ORAL Sig: Take 10 mL by mouth two times a day for 14 days. ALBUTEROL SULFATE 2.5 MG/3 ML (0.083* 75 mL 2 02/16/2025 Route: NEBULIZATION Sig: Use 3 mL via nebulizer every 6 hours as needed for wheezing/shortness of breath. NEBULIZER AND COMPRESSOR 1 Ea* 0 02/16/2025 Route: Misc Si Each four times daily. as needed for cough wheeze or shortness of breath on exertion TRIAMCINOLONE ACETONIDE 40 MG/ML TUYET* 02/16/2025 02/16/2025 Route: INTRAMUSCULA Medications Discontinued During This Encounter Prescriptions - predniSONE (DELTASONE) 10 mg tablet (Discontinued) Take 4 tabs daily x 3 days, then 3 tabs x 3 days, 2 tabs x 3 days, then 1 tab x3 days with food. Level of Service: OFFICE/OUTPATIENT ESTABLISHED MOD [facility] 30 MIN [[id number]] Additional E/M codes: VISIT CPLX INHERENT EANDM ASSOC WITH MED * Encounter Status:Closed by GERMAN PIRES on 02/16/25 CNCO Observed: 02/16/2025 12:00 AM Status: COMPLETED Source: [facility] Letter Text PROGRESS Observed: 02/13/2025 2:22 PM Status: COMPLETED Source: [facility] HNO ID: [id number] Author: YASSINE RADFORD MD Service: ? Author Type: Physician Type: Progress Notes Filed: 02/13/2025 14:42 Note Text: This note was created using MegaPathriter. Subjective Anne Chung is a 39 year old female. She was seen for laryngitis 3 weeks ago. Voice improved, but cough has persisted, productive at times, associated with wheezing, dyspnea, and poor appetite. Review of Systems Constitutional: Positive for appetite change, fatigue, fever and unexpected weight change. HENT: Negative for sore throat. Respiratory: Positive for cough, chest tightness, shortness of breath and wheezing. Gastrointestinal: Negative for diarrhea, nausea and vomiting. ACTIVE PROBLEM LIST Asthma Esophageal Reflux Tobacco Use Disorder Anxiety With Depression Overactive Bladder Non-Adherence to Medical Treatment Social History Tobacco Use Smoking status: Every Day Current packs/day: 1.00 Average packs/day: 1 pack/day for 32.3 years (32.3 ttl pk-yrs) Types: Cigarettes Start date: 10/26/1992 Smokeless tobacco: Never Tobacco comments: started age 17 Vaping Use Vaping status: Some Days Substances: Nicotine Devices: Disposable Substance Use Topics Alcohol use: Not Currently Drug use: Yes Types: Marijuana Comment: Ocassionally Current Outpatient Medications Medication Sig oxycodone HCl (OXYCODONE, BULK, MISC) 5 mg every 6 hours as needed. sucralfate (CARAFATE) 1 gram tablet Take 1 tablet by mouth four times daily. dicyclomine (BENTYL) 10 mg capsule Take 1 capsule by mouth before meals and at bedtime. pantoprazole DR (PROTONIX) 40 mg tablet Take 1 tablet by mouth once daily. ondansetron orally disintegrating (ZOFRAN ODT) 4 mg disintegrating tablet Take 1 tablet by mouth every 6 hours as needed for nausea/vomiting. estradiol (CLIMARA) 0.05 mg/24 hr patch apply 1 patch topically once a week PARoxetine (PAXIL) 10 mg tablet Take 1 tablet by mouth once daily. For hot flashes albuterol HFA (VENTOLIN HFA) 90 mcg/actuation inhaler INHALE TWO PUFFS BY MOUTH EVERY 6 HOURS NEEDED FOR WHEEZING OR SHORTNESS OF BREATH EPINEPHrine (EPIPEN) 0.3 mg/0.3 mL auto-injector GIVE ONE DOSE INTO LATERAL THIGH FOR ALLERGIC REACTION. REPEAT DOSE IN 5-15 MINUTES IF NOT IMPROVING No current facility-administered medications for this visit. Objective BP (!) 80/44 Pulse 103 Temp 37.2 ?C (99 ?F) Ht 152.4 cm (5') Wt 63.5 kg (139 lb 15.9 oz) LMP 05/16/2015 SpO2 99% BMI 27.34 kg/m? Physical Exam Constitutional: Appearance: She is ill-appearing. HENT: Nose: No congestion. Mouth/Throat: Mouth: Mucous membranes are dry. Cardiovascular: Rate and Rhythm: Tachycardia present. Pulmonary: Effort: No respiratory distress. Breath sounds: Rhonchi and rales present. Abdominal: Tenderness: There is no abdominal tenderness. Neurological: Mental Status: She is lethargic. Assessment and Plan 1. Dehydration - ICD9: 276.51, ICD10: E86.0 (primary diagnosis) 2. Subacute cough - ICD9: 786.2, ICD10: R05.2 She was referred to the ER. She declined EMS and will go to the ER directly. I gave handoff to ER provider. Yassine Radford MD CNOV Observed: 02/13/2025 2:20 PM Status: COMPLETED Source: [facility] Office Visit (INTMWS) ANNE CHUNG ([id number]) 1985 F Date Time Provider Department 02/13/25 2:20 PM YASSINE RADFORD INTMWS During your visit today, we recorded the following information about you: Temperature Pulse Blood pressure Weight 99 degrees 103/minute 80/44 63.5 kg Height 1.524 m Yassine Radford MD 02/13/2025 2:42 PM Signed This note was created using [employer]. Subjective Anne Chung is a 39 year old female. She was seen for laryngitis 3 weeks ago. Voice improved, but cough has persisted, productive at times, associated with wheezing, dyspnea, and poor appetite. Review of Systems Constitutional: Positive for appetite change, fatigue, fever and unexpected weight change. HENT: Negative for sore throat. Respiratory: Positive for cough, chest tightness, shortness of breath and wheezing. Gastrointestinal: Negative for diarrhea, nausea and vomiting. ACTIVE PROBLEM LIST Asthma Esophageal Reflux Tobacco Use Disorder Anxiety With Depression Overactive Bladder Non-Adherence to Medical Treatment Social History Tobacco Use Smoking status: Every Day Current packs/day: 1.00 Average packs/day: 1 pack/day for 32.3 years (32.3 ttl pk-yrs) Types: Cigarettes Start date: 10/26/1992 Smokeless tobacco: Never Tobacco comments: started age 17 Vaping Use Vaping status: Some Days Substances: Nicotine Devices: Disposable Substance Use Topics Alcohol use: Not Currently Drug use: Yes Types: Marijuana Comment: Ocassionally Current Outpatient Medications Medication Sig oxycodone HCl (OXYCODONE, BULK, MISC) 5 mg every 6 hours as needed. sucralfate (CARAFATE) 1 gram tablet Take 1 tablet by mouth four times daily. dicyclomine (BENTYL) 10 mg capsule Take 1 capsule by mouth before meals and at bedtime. pantoprazole DR (PROTONIX) 40 mg tablet Take 1 tablet by mouth once daily. ondansetron orally disintegrating (ZOFRAN ODT) 4 mg disintegrating tablet Take 1 tablet by mouth every 6 hours as needed for nausea/vomiting. estradiol (CLIMARA) 0.05 mg/24 hr patch apply 1 patch topically once a week PARoxetine (PAXIL) 10 mg tablet Take 1 tablet by mouth once daily. For hot flashes albuterol HFA (VENTOLIN HFA) 90 mcg/actuation inhaler INHALE TWO PUFFS BY MOUTH EVERY 6 HOURS NEEDED FOR WHEEZING OR SHORTNESS OF BREATH EPINEPHrine (EPIPEN) 0.3 mg/0.3 mL auto-injector GIVE ONE DOSE INTO LATERAL THIGH FOR ALLERGIC REACTION. REPEAT DOSE IN 5-15 MINUTES IF NOT IMPROVING No current facility-administered medications for this visit. Objective BP (!) 80/44 Pulse 103 Temp 37.2 ?C (99 ?F) Ht 152.4 cm (5') Wt 63.5 kg (139 lb 15.9 oz) LMP 05/16/2015 SpO2 99% BMI 27.34 kg/m? Physical Exam Constitutional: Appearance: She is ill-appearing. HENT: Nose: No congestion. Mouth/Throat: Mouth: Mucous membranes are dry. Cardiovascular: Rate and Rhythm: Tachycardia present. Pulmonary: Effort: No respiratory distress. Breath sounds: Rhonchi and rales present. Abdominal: Tenderness: There is no abdominal tenderness. Neurological: Mental Status: She is lethargic. Assessment and Plan 1. Dehydration - ICD9: 276.51, ICD10: E86.0 (primary diagnosis) 2. Subacute cough - ICD9: 786.2, ICD10: R05.2 She was referred to the ER. She declined EMS and will go to the ER directly. I gave handoff to ER provider. MD Nikolay Holly Victor H, MD 02/13/2025 2:28 PM Addendum Go to ER for assessment and IV fluids. Allergies As of Date: 02/13/2025 Noted Allergy Reaction BEES 06/23/2011 10 - Anaphylaxis Comments: Pt had swelling, was given epipen at ER. DIAZEPAM 08/03/2015 4 - Hives Comments: Hives on chest only. MORPHINE 11/10/2014 2 - Rash 9 - Itching Comments: Left arm turned red when given IV morphine PENICILLINS 02/14/2011 14 - Other: See Comments 4 - Hives Comments: Patient refuses due to family allergy to PCN. BENZONATATE 11/03/2017 2 - Rash Date Reviewed: 02/13/2025 Reviewed by: Jocelin Faith MA - Fully Assessed Reason for Visit: Cough [28] Wheezing [181] Primary Visit Diagnosis:Dehydration [E86.0] Other Visit Diagnosis:Subacute cough [R05.2] Prescriptions as of 02/13/2025 - oxycodone HCl (OXYCODONE, BULK, MISC) 5 mg every 6 hours as needed. - sucralfate (CARAFATE) 1 gram tablet Take 1 tablet by mouth four times daily. - dicyclomine (BENTYL) 10 mg capsule Take 1 capsule by mouth before meals and at bedtime. - pantoprazole DR (PROTONIX) 40 mg tablet Take 1 tablet by mouth once daily. - ondansetron orally disintegrating (ZOFRAN ODT) 4 mg disintegrating tablet Take 1 tablet by mouth every 6 hours as needed for nausea/vomiting. - estradiol (CLIMARA) 0.05 mg/24 hr patch apply 1 patch topically once a week - PARoxetine (PAXIL) 10 mg tablet Take 1 tablet by mouth once daily. For hot flashes - albuterol HFA (VENTOLIN HFA) 90 mcg/actuation inhaler INHALE TWO PUFFS BY MOUTH EVERY 6 HOURS NEEDED FOR WHEEZING OR SHORTNESS OF BREATH - EPINEPHrine (EPIPEN) 0.3 mg/0.3 mL auto-injector GIVE ONE DOSE INTO LATERAL THIGH FOR ALLERGIC REACTION. REPEAT DOSE IN 5-15 MINUTES IF NOT IMPROVING Meds Comments as of 12/05/2022: Problem List As Of Date 02/13/2025 Noted Resolved Bipolar disorder, unspecified (HCC) [F31.9] 07/26/2006 09/01/2020 Asthma [J45.909] 07/26/2006 ESOPHAGEAL REFLUX [K21.9] 08/23/2006 Pruritus of genital organs [L29.3] 11/21/2006 01/03/2011 TOBACCO USE DISORDER [F17.200] 12/25/2006 Lumbago [M54.50] 03/09/2008 04/18/2018 Dysuria [R30.0] 05/21/2009 01/03/2011 Abdominal pain, generalized [R10.84] 10/05/2009 01/03/2011 Abdominal pain, epigastric [R10.13] 10/26/2009 03/15/2012 Disturbance of skin sensation [R20.9] 01/21/2010 01/03/2011 Cervicalgia [M54.2] 01/21/2010 01/03/2011 Abdominal pain, right upper quadrant [R10.11] 07/11/2011 03/15/2012 Gastritis/duodenitis [K29.70, K29.90] 07/21/2011 03/15/2012 Acute gastritis without mention of hemorrhage [*07/21/2011 03/15/2012 Irritable bowel syndrome [K58.9] 03/15/2012 09/01/2020 Abdominal pain, chronic, generalized [R10.84, G*07/04/2013 04/18/2018 ASCUS (atypical squamous cells of undetermined *09/24/2013 04/18/2018 Myofascial pain [M79.18] 11/07/2013 04/18/2018 Pain of left thumb [M79.645] 01/20/2015 04/18/2018 Raynaud's phenomenon without gangrene [I73.00] 02/01/2017 12/14/2019 Mixed stress and urge urinary incontinence [N39*12/13/2019 09/08/2021 Thoracic outlet syndrome [G54.0] 06/14/2020 03/12/2023 TOS (thoracic outlet syndrome) [G54.0] 10/18/2021 05/23/2022 Anxiety with depression [F41.8] 05/23/2022 Overactive bladder [N32.81] 07/28/2022 Pain of left shoulder region [M25.512] 12/28/2022 01/27/2025 Non-adherence to medical treatment [Z91.199] 03/12/2023 Other instructions from your clinician: Go to ER for assessment and IV fluids. Encounter Status:Closed by YASSINE RADFORD on 02/13/25 PROGRESS Observed: 02/03/2025 11:39 AM Status: COMPLETED Source: [facility] HNO ID: [id number] Author: MALLORY MARRERO APRN.YORDY Service: ? Author Type: Nurse Practitioner Type: Progress Notes Filed: 02/03/2025 11:39 Note Text: New EGD order placed ANES PRE-OP Observed: 01/29/2025 1:25 PM Status: COMPLETED Source: [facility] HNO ID: [id number] Author: TAMEKA PERRY MD Service: Anesthesiology Author Type: Physician Type: Anesthesia Preprocedure Evaluation Filed: 01/29/2025 13:41 Note Text: ANESTHESIOLOGY DAY OF SURGERY NOTE : 1985 Procedure Information Date/Time: 01/29/25 1300 Scheduled providers: Gertrude Henry MD; Tameka Perry MD Procedure: EGD DIAGNOSTIC Location: LD SURGERY Estimated body mass index is 28.12 kg/m? as calculated from the following: Height as of this encounter: 152.4 cm (5'). Weight as of this encounter: 65.3 kg (144 lb). Most recent hematocrit and potassium results: Hematocrit 46.3 01/17/2022 Potassium 4.5 01/17/2022 Relevant Problems GI (+) Esophageal reflux PULMONARY (+) Asthma Adult - Exam and Plan Vitals Value Taken Time BP 108/78 01/29/25 1208 Pulse Resp 9 01/29/25 1208 Temp 36.8 ?C (98.3 ?F) 01/29/25 1208 SpO2 99 % 01/29/25 1208 Facility-Administered Medications as of 01/29/2025 Medication Dose Route Frequency lidocaine (PF) 10 mg/mL (1 %) 1-2 mg injection (XYLOCAINE) 0.1-0.2 mL INTRADERMAL PRN lactated ringers iv infusion 30 mL/hr INTRAVENOUS CONTINUOUS Outpatient Medications as of 01/29/2025 Medication Sig oxycodone HCl (OXYCODONE, BULK, MISC) 5 mg every 6 hours as needed. predniSONE (DELTASONE) 20 mg tablet Take 1 tablet by mouth once daily for 3 days. sucralfate (CARAFATE) 1 gram tablet Take 1 tablet by mouth four times daily. dicyclomine (BENTYL) 10 mg capsule Take 1 capsule by mouth before meals and at bedtime. pantoprazole DR (PROTONIX) 40 mg tablet Take 1 tablet by mouth once daily. estradiol (CLIMARA) 0.05 mg/24 hr patch apply 1 patch topically once a week PARoxetine (PAXIL) 10 mg tablet Take 1 tablet by mouth once daily. For hot flashes albuterol HFA (VENTOLIN HFA) 90 mcg/actuation inhaler INHALE TWO PUFFS BY MOUTH EVERY 6 HOURS NEEDED FOR WHEEZING OR SHORTNESS OF BREATH ondansetron orally disintegrating (ZOFRAN ODT) 4 mg disintegrating tablet Take 1 tablet by mouth every 6 hours as needed for nausea/vomiting. EPINEPHrine (EPIPEN) 0.3 mg/0.3 mL auto-injector GIVE ONE DOSE INTO LATERAL THIGH FOR ALLERGIC REACTION. REPEAT DOSE IN 5-15 MINUTES IF NOT IMPROVING I have interviewed and examined the patient. I have reviewed the medical record and/or the pre-anesthesia evaluation, pertinent labs, and test results. This contains updated information obtained within 48 hours of Surgery/Procedure. SIGNATURE: Tameka Perry MD PATIENT NAME: Anne Chung DATE: January 29, 2025 TIME: 1:25 PM CSN: [id number] HISTORY PHYSICAL Observed: 01/29/2025 1:13 PM Status: COMPLETED Source: [facility] ID: [id number] Author: GERTRUDE HENRY MD Service: General Surgery Author Type: Physician Type: H&P Filed: 01/29/2025 13:14 Note Text: HISTORY AND PHYSICAL Anne Chung : 1985 REFERRING PHYSICIAN: [facility] [id number] CHIEF COMPLAINT: Patient presents with: Consult: GERD HPI: Anne is a 39 year old female referred for endoscopy. Anne notes concern for stomach ulcer. Anne notes heartburn. -burning pain the starts at mid abdominal point and travels up esophagus Anne notes upper abdominal pain -decreased appetite -rapid weight loss, 26# over 2 months -currently under a lot of stress while from - PCP started on carafate AND omeprazole- notes no improvement. Anne notes dysphagia. -points to mid chest and states foods AND liquids both feel like they are getting stuck Anne notes a history of ulcers/ peptic ulcer disease. Anne has undergone prior endoscopy. Last EGD AND colonoscopy was 10/[address] Escalona at [facility]. Sedation: MAC EGD Impression: - Normal esophagus. - Erythematous mucosa in the antrum. Biopsied. - Normal examined duodenum. COLONOSCOPY Impression: - The entire examined colon is normal. Biopsied. CONVERTED FINAL DIAGNOSIS 1. Antrum, biopsy (A) - Antral mucosa with no diagnostic alteration. 2. Random colon, biopsy (B) - Colonic mucosa with no diagnostic alteration. TP/simran 11/10/2016 CURRENT MEDICATIONS Current Outpatient Medications Medication Sig ondansetron orally disintegrating (ZOFRAN ODT) 4 mg disintegrating tablet Take 1 tablet by mouth every 6 hours as needed for nausea/vomiting. estradiol (CLIMARA) 0.05 mg/24 hr patch apply 1 patch topically once a week PARoxetine (PAXIL) 10 mg tablet Take 1 tablet by mouth once daily. For hot flashes albuterol HFA (VENTOLIN HFA) 90 mcg/actuation inhaler INHALE TWO PUFFS BY MOUTH EVERY 6 HOURS NEEDED FOR WHEEZING OR SHORTNESS OF BREATH EPINEPHrine (EPIPEN) 0.3 mg/0.3 mL auto-injector GIVE ONE DOSE INTO LATERAL THIGH FOR ALLERGIC REACTION. REPEAT DOSE IN 5-15 MINUTES IF NOT IMPROVING pantoprazole DR (PROTONIX) 40 mg tablet Take 1 tablet by mouth once daily. testosterone 1.62 % (20.25 mg/1.25 gram) glpk Apply as directed. (Patient not taking: Reported on 01/08/2025) No current facility-administered medications for this visit. ALLERGIES: Bees, Morphine, Penicillins, Valium [Diazepam], and Tessalon [Benzonatate] PAST MEDICAL HISTORY PAST MEDICAL HISTORY Diagnosis Date Abnormal mammogram 02/16/2017 Anxiety and depression ASCUS (atypical squamous cells of undetermined significance) on Pap smear 09/24/2013 ASTHMA UNSPECIFIED 07/26/2006 BIPOLAR DISORDER NOS 07/26/2006 COVID 11/27/2021 Esophageal reflux 08/23/2006 Hidradenitis 01/15/2007 Hot flashes Insomnia Irritable bowel syndrome 03/15/2012 Mastodynia 08/23/2006 Mixed stress and urge urinary incontinence 12/13/2019 Nausea 01/02/2011 Pilonidal cyst with abscess 12/19/2023 PTSD (post-traumatic stress disorder) 180 dx Raynaud's phenomenon without gangrene 02/01/2017 Thoracic outlet syndrome 06/14/2020 Tobacco use disorder 12/25/2006 Vaginal dryness PAST SURGICAL HISTORY PAST SURGICAL HISTORY Procedure Laterality Date ANESTHESIA [...] dental extraction REMOVAL OF OVARY(S) Right 05/10/2023 FAMILY HISTORY FAMILY HISTORY Problem Relation Age of Onset [...] Grandmother Diabetes Paternal Grandfather Heart Paternal Grandfather SOCIAL HISTORY Social History Tobacco Use Smoking status: Every Day Current packs/day: 1.00 Average packs/day: 1 pack/day for 32.2 years (32.2 ttl pk-yrs) Types: Cigarettes Start date: 10/26/1992 Smokeless tobacco: Never Tobacco comments: started age 17 Vaping Use Vaping status: Some Days Substances: Nicotine Devices: Disposable Substance Use Topics Alcohol use: Not Currently Drug use: Yes Types: Marijuana Comment: Ocassionally REVIEW OF SYMPTOMS: The review of systems data was entered by the nurse and reviewed by me SEE NURSING NOTE PHYSICAL EXAMINATION: General: The patient is 39 year old, female well nourished, well hydrated in no acute distress. The patient is oriented to time, place, and person. VITALS: Blood pressure 102/62, pulse 90, temperature 36.3 ?C (97.3 ?F), temperature source Temporal, resp. rate 14, height 152.4 cm (5'), weight 66.7 kg (147 lb), last menstrual period 05/16/2015, SpO2 98%. Body mass index is 28.71 kg/m?. HEENT: Normal cephalic, ataumatic, pupils are equally round, sclera are anicteric, mucous membranes are moist, oropharynx is clear. Neck has no masses, asymmetry or lymphadenopathy. Respiratory: Clear to auscultation and percussion. Normal respiratory excursion and pattern. Cardiac: Examination is regular rate and rhythm. Normal S1/S2 Abdominal exam: Soft, nontender, with no palpable masses. No hepatosplenomegaly. No palpable hernias. Extremities: no clubbing, cyanosis or edema. No adenopathy. LABORATORY VALUES: As Noted RADIOLOGIC STUDIES: As Noted Assessment IMPRESSION: nausea, GERD, epigastric pain, dysphagia, abnormal weight loss PLAN: I have reviewed my findings with the surgeon. Will plan for upper endoscopy. We discussed the risks and benefits of the planned endoscopy. I have informed the patient that complications can occur including failure to complete the endoscopy and perforation. Anne had the opportunity to ask questions concerning the planned endoscopy. My staff has also explained the procedure to the patient in understandable terms and has given the patient printed material concerning the procedure. Anne freely consents to surgery. Switched PPI to protonix 40 mg daily to see if she gets any better relief. I have explained to the patient the difference between IV conscious sedation and MAC anesthesia - and I have offered either, according to the patient's wishes. I have explained that with IV conscious sedation there is no anesthesia provider available and therefore there is a limitation of the amount of IV medications that can be given and that the patient may wake up in the middle of the procedure and/or experience pain/discomfort during the procedure. Further discussion was done and the patient was given the opportunity to ask questions and all questions were answered. MAC anesthesia- pt is allergic to valium. Anne was counseled that if there are changes in his/her medical condition, to let the office know if surgery should proceed. If there are changes in patient's medical condition from time of this encounter to the day of the procedure that preclude anesthesia, patient may have procedure cancelled for patient's safety. Diagnoses: (R11.0) Nausea (primary encounter diagnosis) (K21.9) Gastroesophageal reflux disease, unspecified whether esophagitis present (R10.13) Epigastric pain (R63.4) Abnormal weight loss (R13.10) Dysphagia, unspecified type Consultation requested by German Pires CNP for an opinion regarding GERD. My final recommendations will be communicated back to the requesting physician by way of shared Medical record or letter to requesting physician via US mail. Portions of this documentation were copied and pasted from previous office visit notes in order to provide a cohesive continuity of the history. The note has been reviewed and edited and updated as necessary. Mallory Marrero APRN.CNP PROGRESS Observed: 01/27/2025 10:41 AM Status: COMPLETED Source: [facility] HNO ID: [id number] Author: MAYDA MADRIGAL MD Service: ? Author Type: Physician Type: Progress Notes Filed: 01/27/2025 11:09 Note Text: Reason for Visit Anne Chung is a 39 year oldfemale who presents here Patient presents with: Recheck: Ct scan results, saw Dr Radford yesterday evening 01/26/25, for cough and afebrile, sweating, no sore throat, speaking softly, patient was given prednisone and has not vegetable picker yet. Health Maintenance Hepatitis B Vaccine(1 of 3 - 19+ 3-dose series) Pneumococcal Vaccine(1 of 2 - PCV) DTaP,Tdap,Td Vaccine(2 - Td or Tdap) Mammogram Screening HPI Abdominal pain: She has been having pain in the abdomen for the past 2 months, she is going through a dissolution of marriage which has been stressful and this started when she was going through a stressful period. Has baseline abdominal pain from IBS, this pain is a little different,in that there is no associated bowel movement issues with the pain. she is losing weight but says it is likely from stress of what is going on. The pain is described as constant since the of this month. She had pain and vomiting . Was directed to the ER and had to get some fluids in the ER on the . Had ct with constrast and was thought to be lining of the stomach that was an issues. Pain is in the epigastric area, she has a rectus diastasis that is small and she notes pain there. Pain is constant 7/10 pain, she does not have pain related to food, not increase in the past from food. She does feel like food is getting stuck in her chest. She has no radiation of the pain. Coming up with an egd. She does not drink much alcohol.. January 27, 2025 Here to discuss her CT results, which was normal. She has started the carafate but there is no relief of pain. Going for the EGD tomorrow in [place]. She was evaluated last night by pcp for a viral, she notes she is having a viral, was given some prednisone which she has yet to vegetable picker and wants me to write a letter for leave today for coming in. She is the same as she was yesterday at pcp with not new symptoms or worsening. No problem-specific Assessment AND Plan notes found for this encounter. PAST MEDICAL HISTORY Diagnosis Date Abnormal mammogram 02/16/2017 Anxiety and depression ASCUS (atypical squamous cells of undetermined significance) on Pap smear 09/24/2013 ASTHMA UNSPECIFIED 07/26/2006 BIPOLAR DISORDER NOS 07/26/2006 COVID 11/27/2021 Esophageal reflux 08/23/2006 Hidradenitis 01/15/2007 Hot flashes Insomnia Irritable bowel syndrome 03/15/2012 Mastodynia 08/23/2006 Mixed stress and urge urinary incontinence 12/13/2019 Nausea 01/02/2011 Pilonidal cyst with abscess 12/19/2023 PTSD (post-traumatic stress disorder) 180 dx Raynaud's phenomenon without gangrene 02/01/2017 Thoracic outlet [...] dental extraction REMOVAL OF OVARY(S) Right 05/10/2023 FAMILY HISTORY Problem Relation Age of Onset [...] Grandmother Diabetes Paternal Grandfather Heart Paternal Grandfather Social History Tobacco Use Smoking status: Every Day Current packs/day: 1.00 Average packs/day: 1 pack/day for 32.3 years (32.3 ttl pk-yrs) Types: Cigarettes Start date: 10/26/1992 Smokeless tobacco: Never Tobacco comments: started age 17 Vaping Use Vaping status: Some Days Substances: Nicotine Devices: Disposable Substance Use Topics Alcohol use: Not Currently Drug use: Yes Types: Marijuana Comment: Ocassionally Past medical history, appointments, medications, allergies reviewed. Pertinent Lab/Diagnostic Studies are reviewed and discussed today Current Outpatient Medications: sucralfate (CARAFATE) 1 gram tablet dicyclomine (BENTYL) [address] (PROTONIX) 40 mg tablet ondansetron orally disintegrating (ZOFRAN ODT) 4 mg disintegrating tablet estradiol (CLIMARA) 0.05 mg/24 hr patch PARoxetine (PAXIL) 10 mg tablet albuterol HFA (VENTOLIN HFA) 90 mcg/actuation inhaler EPINEPHrine (EPIPEN) 0.3 mg/0.3 mL auto-injector predniSONE (DELTASONE) 20 mg tablet Review of Systems CONSTITUTIONAL: No fevers, chills night sweats, unintended weight loss CARDIOVASCULAR: No chest pain, dyspnea, palpitations, orthopnea, PND, ankle edema. PULM: No dyspnea, unexplained cough. GI: No dysphagia/odynophagia, problematic reflux, constipation, diarrhea, changes in stool habits, hematochezia, melena. : No new urinary complaints, including dysuria, gross hematuria or pyuria. NEURO: No new balance problems, peripheral weakness/paresthesias or numbness of concern. Physical Exam BP 112/70 Pulse 79 Wt 65.4 kg (144 lb 3.2 oz) LMP 05/16/2015 SpO2 99% BMI 28.16 kg/m? General appearance: Well appearing, alert, in a mask, in no acute distress, well nourished. Skin: Skin color, texture, turgor normal, no suspicious rashes or lesions Head: Normocephalic, no masses, lesions, tenderness or abnormalities Eyes: Anicteric sclera. Pupils are equally round and reactive to light. Extraocular movements are intact. Lungs:Normal breathing efforts. ASSESSMENT/PLAN: 1. Encounter to discuss test results - ICD9: V65.49, ICD10: Z71.[address] abd, and gave her leave of absence per request. Patient deferred assessment of other issues at this time,wanted the leave letter for todays visit. Mayda Madrigal MD Voice recognition software was used to compose this office note. Please excuse any unintended typographical errors. GRANT Observed: 01/27/2025 10:40 AM Status: COMPLETED Source: [facility] Office Visit (INTMWS) ANNE CHUNG ([id number]) 1985 F Date Time Provider Department 01/27/25 10:40 AM MAYDA MADRIGAL During your visit today, we recorded the following information about you: Pulse Blood pressure Weight 79/minute 112/70 65.4 kg Mayda Madrigal MD 01/27/2025 11:09 AM Signed Reason for Visit Anne Chung is a 39 year oldfemale who presents here Patient presents with: Recheck: Ct scan results, saw Dr Radford yesterday evening 01/26/25, for cough and afebrile, sweating, no sore throat, speaking softly, patient was given prednisone and has not vegetable picker yet. Health Maintenance Hepatitis B Vaccine(1 of 3 - 19+ 3-dose series) Pneumococcal Vaccine(1 of 2 - PCV) DTaP,Tdap,Td Vaccine(2 - Td or Tdap) Mammogram Screening HPI Abdominal pain: She has been having pain in the abdomen for the past 2 months, she is going through a dissolution of marriage which has been stressful and this started when she was going through a stressful period. Has baseline abdominal pain from IBS, this pain is a little different,in that there is no associated bowel movement issues with the pain. she is losing weight but says it is likely from stress of what is going on. The pain is described as constant since the of this month. She had pain and vomiting . Was directed to the ER and had to get some fluids in the ER on the . Had ct with constrast and was thought to be lining of the stomach that was an issues. Pain is in the epigastric area, she has a rectus diastasis that is small and she notes pain there. Pain is constant 7/10 pain, she does not have pain related to food, not increase in the past from food. She does feel like food is getting stuck in her chest. She has no radiation of the pain. Coming up with an egd. She does not drink much alcohol.. January 27, 2025 Here to discuss her CT results, which was normal. She has started the carafate but there is no relief of pain. Going for the EGD tomorrow in [place]. She was evaluated last night by pcp for a viral, she notes she is having a viral, was given some prednisone which she has yet to vegetable picker and wants me to write a letter for leave today for coming in. She is the same as she was yesterday at pcp with not new symptoms or worsening. No problem-specific Assessment AND Plan notes found for this encounter. PAST MEDICAL HISTORY Diagnosis Date Abnormal mammogram 02/16/2017 Anxiety and depression ASCUS (atypical squamous cells of undetermined significance) on Pap smear 09/24/2013 ASTHMA UNSPECIFIED 07/26/2006 BIPOLAR DISORDER NOS 07/26/2006 COVID 11/27/2021 Esophageal reflux 08/23/2006 Hidradenitis 01/15/2007 Hot flashes Insomnia Irritable bowel syndrome 03/15/2012 Mastodynia 08/23/2006 Mixed stress and urge urinary incontinence 12/13/2019 Nausea 01/02/2011 Pilonidal cyst with abscess 12/19/2023 PTSD (post-traumatic stress disorder) 180 dx Raynaud's phenomenon without gangrene 02/01/2017 Thoracic outlet [...] dental extraction REMOVAL OF OVARY(S) Right 05/10/2023 FAMILY HISTORY Problem Relation Age of Onset [...] Grandmother Diabetes Paternal Grandfather Heart Paternal Grandfather Social History Tobacco Use Smoking status: Every Day Current packs/day: 1.00 Average packs/day: 1 pack/day for 32.3 years (32.3 ttl pk-yrs) Types: Cigarettes Start date: 10/26/1992 Smokeless tobacco: Never Tobacco comments: started age 17 Vaping Use Vaping status: Some Days Substances: Nicotine Devices: Disposable Substance Use Topics Alcohol use: Not Currently Drug use: Yes Types: Marijuana Comment: Ocassionally Past medical history, appointments, medications, allergies reviewed. Pertinent Lab/Diagnostic Studies are reviewed and discussed today Current Outpatient Medications: sucralfate (CARAFATE) 1 gram tablet dicyclomine (BENTYL) [address] (PROTONIX) 40 mg tablet ondansetron orally disintegrating (ZOFRAN ODT) 4 mg disintegrating tablet estradiol (CLIMARA) 0.05 mg/24 hr patch PARoxetine (PAXIL) 10 mg tablet albuterol HFA (VENTOLIN HFA) 90 mcg/actuation inhaler EPINEPHrine (EPIPEN) 0.3 mg/0.3 mL auto-injector predniSONE (DELTASONE) 20 mg tablet Review of Systems CONSTITUTIONAL: No fevers, chills night sweats, unintended weight loss CARDIOVASCULAR: No chest pain, dyspnea, palpitations, orthopnea, PND, ankle edema. PULM: No dyspnea, unexplained cough. GI: No dysphagia/odynophagia, problematic reflux, constipation, diarrhea, changes in stool habits, hematochezia, melena. : No new urinary complaints, including dysuria, gross hematuria or pyuria. NEURO: No new balance problems, peripheral weakness/paresthesias or numbness of concern. Physical Exam BP 112/70 Pulse 79 Wt 65.4 kg (144 lb 3.2 oz) LMP 05/16/2015 SpO2 99% BMI 28.16 kg/m? General appearance: Well appearing, alert, in a mask, in no acute distress, well nourished. Skin: Skin color, texture, turgor normal, no suspicious rashes or lesions Head: Normocephalic, no masses, lesions, tenderness or abnormalities Eyes: Anicteric sclera. Pupils are equally round and reactive to light. Extraocular movements are intact. Lungs:Normal breathing efforts. ASSESSMENT/PLAN: 1. Encounter to discuss test results - ICD9: V65.49, ICD10: Z71.[address] normal [address] abd, and gave her leave of absence per request. Patient deferred assessment of other issues at this time,wanted the leave letter for todays visit. Mayda Madrigal MD Voice recognition software was used to compose this office note. Please excuse any unintended typographical errors. Allergies As of Date: 01/27/2025 Noted Allergy Reaction BEES 06/23/2011 10 - Anaphylaxis Comments: Pt had swelling, was given epipen at ER. DIAZEPAM 08/03/2015 4 - Hives Comments: Hives on chest only. MORPHINE 11/10/2014 2 - Rash 9 - Itching Comments: Left arm turned red when given IV morphine PENICILLINS 02/14/2011 14 - Other: See Comments 4 - Hives Comments: Patient refuses due to family allergy to PCN. BENZONATATE 11/03/2017 2 - Rash Date Reviewed: 01/27/2025 Reviewed by: Cathleen Prather LPN - Fully Assessed Reason for Visit: Recheck [92] Cmt: Ct scan results, saw Dr Radford yesterday evening 01/26/25, for cough and afebrile, sweating, no sore throat, speaking softly, patient was given prednisone and has not vegetable picker yet. Primary Visit Diagnosis:Encounter to discuss test results [Z71.2] Prescriptions as of 01/27/2025 - predniSONE (DELTASONE) 20 mg tablet Take 1 tablet by mouth once daily for 3 days. - sucralfate (CARAFATE) 1 gram tablet Take 1 tablet by mouth four times daily. - dicyclomine (BENTYL) 10 mg capsule Take 1 capsule by mouth before meals and at bedtime. - pantoprazole DR (PROTONIX) 40 mg tablet Take 1 tablet by mouth once daily. - ondansetron orally disintegrating (ZOFRAN ODT) 4 mg disintegrating tablet Take 1 tablet by mouth every 6 hours as needed for nausea/vomiting. - estradiol (CLIMARA) 0.05 mg/24 hr patch apply 1 patch topically once a week - PARoxetine (PAXIL) 10 mg tablet Take 1 tablet by mouth once daily. For hot flashes - albuterol HFA (VENTOLIN HFA) 90 mcg/actuation inhaler INHALE TWO PUFFS BY MOUTH EVERY 6 HOURS NEEDED FOR WHEEZING OR SHORTNESS OF BREATH - EPINEPHrine (EPIPEN) 0.3 mg/0.3 mL auto-injector GIVE ONE DOSE INTO LATERAL THIGH FOR ALLERGIC REACTION. REPEAT DOSE IN 5-15 MINUTES IF NOT IMPROVING Meds Comments as of 12/05/2022: Problem List As Of Date 01/27/2025 Noted Resolved Bipolar disorder, unspecified (HCC) [F31.9] 07/26/2006 09/01/2020 Asthma [J45.909] 07/26/2006 ESOPHAGEAL REFLUX [K21.9] 08/23/2006 Pruritus of genital organs [L29.3] 11/21/2006 01/03/2011 TOBACCO USE DISORDER [F17.200] 12/25/2006 Lumbago [M54.50] 03/09/2008 04/18/2018 Dysuria [R30.0] 05/21/2009 01/03/2011 Abdominal pain, generalized [R10.84] 10/05/2009 01/03/2011 Abdominal pain, epigastric [R10.13] 10/26/2009 03/15/2012 Disturbance of skin sensation [R20.9] 01/21/2010 01/03/2011 Cervicalgia [M54.2] 01/21/2010 01/03/2011 Abdominal pain, right upper quadrant [R10.11] 07/11/2011 03/15/2012 Gastritis/duodenitis [K29.70, K29.90] 07/21/2011 03/15/2012 Acute gastritis without mention of hemorrhage [*07/21/2011 03/15/2012 Irritable bowel syndrome [K58.9] 03/15/2012 09/01/2020 Abdominal pain, chronic, generalized [R10.84, G*07/04/2013 04/18/2018 ASCUS (atypical squamous cells of undetermined *09/24/2013 04/18/2018 Myofascial pain [M79.18] 11/07/2013 04/18/2018 Pain of left thumb [M79.645] 01/20/2015 04/18/2018 Raynaud's phenomenon without gangrene [I73.00] 02/01/2017 12/14/2019 Mixed stress and urge urinary incontinence [N39*12/13/2019 09/08/2021 Thoracic outlet syndrome [G54.0] 06/14/2020 03/12/2023 TOS (thoracic outlet syndrome) [G54.0] 10/18/2021 05/23/2022 Anxiety with depression [F41.8] 05/23/2022 Overactive bladder [N32.81] 07/28/2022 Pain of left shoulder region [M25.512] 12/28/2022 01/27/2025 Non-adherence to medical treatment [Z91.199] 03/12/2023 Level of Service: OFFICE/OUTPATIENT ESTABLISHED LOW MDM 20 MIN [33714] Additional E/M codes: VISIT CPLX INHERENT EANDM ASSOC WITH MED * LOS History for Encounter Level of Service: PPPS, SUBSEQ VISIT[G0439] LOS modifiers: SIGNIFICANT SPRTLY IDABLE EVAL AND MGMT ON SAME DAY BY SAME PROV[25] Date AND Time: 01-27-2025 10:50 AM Recorded by User: MAYDA MADRIGAL Level of Service: PPPS, SUBSEQ VISIT[G0439] Date AND Time: 01-27-2025 10:50 AM Recorded by User: MAYDA MADRIGAL Letter Text Encounter Status:Closed by MAYDA MADRIGAL on 01/27/25 PROGRESS Observed: 01/27/2025 7:16 AM Status: COMPLETED Source: [facility] HNO ID: [id number] Author: YASSINE RADFORD MD Service: ? Author Type: Physician Type: Progress Notes Filed: 01/27/2025 07:26 Note Text: This note was created using NoteWriter. Subjective Anne Chung is a 39 year old female who presents with complaint of cough- nonproductive and with some wheezing heard for 5 days. Associated symptoms include hoarse voice. She denies fever, headache, ear pain, sore throat, dyspnea, nausea, vomiting, diarrhea, and myalgias. Treatments tried include Albuterol with partial relief of symptoms. Review of Systems Per HPI. ACTIVE PROBLEM LIST Asthma Esophageal Reflux Tobacco Use Disorder Anxiety With Depression Overactive Bladder Pain of Left Shoulder Region Non-Adherence to Medical Treatment Social History Tobacco Use Smoking status: Every Day Current packs/day: 1.00 Average packs/day: 1 pack/day for 32.3 years (32.3 ttl pk-yrs) Types: Cigarettes Start date: 10/26/1992 Smokeless tobacco: Never Tobacco comments: started age 17 Vaping Use Vaping status: Some Days Substances: Nicotine Devices: Disposable Substance Use Topics Alcohol use: Not Currently Drug use: Yes Types: Marijuana Comment: Ocassionally Current Outpatient Medications Medication Sig sucralfate (CARAFATE) 1 gram tablet Take 1 tablet by mouth four times daily. dicyclomine (BENTYL) 10 mg capsule Take 1 capsule by mouth before meals and at bedtime. pantoprazole DR (PROTONIX) 40 mg tablet Take 1 tablet by mouth once daily. ondansetron orally disintegrating (ZOFRAN ODT) 4 mg disintegrating tablet Take 1 tablet by mouth every 6 hours as needed for nausea/vomiting. estradiol (CLIMARA) 0.05 mg/24 hr patch apply 1 patch topically once a week PARoxetine (PAXIL) 10 mg tablet Take 1 tablet by mouth once daily. For hot flashes albuterol HFA (VENTOLIN HFA) 90 mcg/actuation inhaler INHALE TWO PUFFS BY MOUTH EVERY 6 HOURS NEEDED FOR WHEEZING OR SHORTNESS OF BREATH EPINEPHrine (EPIPEN) 0.3 mg/0.3 mL auto-injector GIVE ONE DOSE INTO LATERAL THIGH FOR ALLERGIC REACTION. REPEAT DOSE IN 5-15 MINUTES IF NOT IMPROVING predniSONE (DELTASONE) 20 mg tablet Take 1 tablet by mouth once daily for 3 days. testosterone 1.62 % (20.25 mg/1.25 gram) glpk Apply as directed. (Patient not taking: Reported on 01/08/2025) No current facility-administered medications for this visit. Objective BP 110/64 (BP Site: Left Arm, BP Position: Sitting, BP Cuff Size: Large Adult) Pulse 88 Temp 37.2 ?C (98.9 ?F) (Temporal) Resp 20 Wt 66.8 kg (147 lb 4.3 oz) LMP 05/16/2015 BMI 28.76 kg/m? Physical Exam Constitutional: General: She is not in acute distress. Appearance: She is not ill-appearing. HENT: Right Ear: Tympanic membrane normal. Left Ear: Tympanic membrane normal. Nose: No congestion or rhinorrhea. Mouth/Throat: Mouth: Mucous membranes are moist. Pharynx: Oropharynx is clear. No pharyngeal swelling, oropharyngeal exudate or posterior oropharyngeal erythema. Comments: Hoarseness noted. Pulmonary: Effort: No respiratory distress. Breath sounds: Wheezing present. No rhonchi or rales. Comments: Few scattered wheezes. Musculoskeletal: Cervical back: No tenderness. Lymphadenopathy: Cervical: No cervical adenopathy. Neurological: Mental Status: She is alert. Assessment and Plan 1. Laryngitis, acute - ICD9: 464.00, ICD10: J04.0 (primary diagnosis) - PREDNISONE 20 MG TABLET - Voice rest. Viral URI measures. 2. Asthma with acute exacerbation, unspecified asthma severity, unspecified whether persistent - ICD9: 493.92, ICD10: J45.901 Mild exacerbation. - PREDNISONE 20 MG TABLET Yassine Radford MD CNOV Observed: 01/26/2025 7:20 PM Status: COMPLETED Source: [facility] Office Visit ([facility]) ANNE CHUNG ([id number]) 1985 F Date Time Provider Department 01/26/25 7:20 PM YASSINE RADFORD [facility] During your visit today, we recorded the following information about you: Temperature Pulse Respiration Blood pressure 98.9 degrees 88/minute 20/minute 110/64 Weight 66.8 kg Yassine Radford MD 01/26/2025 7:45 PM Signed You have a viral illness for which antibiotics are not recommended. Viral illnesses, like a cold, resolve on their own, unless a secondary infection occurs. You need rest, fluids, and over the counter medications for symptoms. If prescribed a medication for a specific viral infection, start this immediately. Call us if symptoms worsen, persist, or if you have new symptoms in several days. Preventing the Spread of Respiratory Viruses Stay home and away from others if you have respiratory virus symptoms... You can go back to your normal activities when for for at least 24 hours, both are true: 1. Your symptoms are getting better overall, AND 2. You have not had a fever (and are not using fever-reducing medications). When you go back to normal activities, take added precautions over the next 5 days, such as taking additions steps for commercial or institutional cleaner air, hygiene, masks, physical distancing, and or testing when you will be around other people indoors. For more information go to https://www.cdc.gov/respiratory-viruses/prevention/index.html Yassine Radford MD 01/27/2025 7:26 AM Signed This note was created using MegaPathriter. Subjective Anne Chung is a 39 year old female who presents with complaint of cough- nonproductive and with some wheezing heard for 5 days. Associated symptoms include hoarse voice. She denies fever, headache, ear pain, sore throat, dyspnea, nausea, vomiting, diarrhea, and myalgias. Treatments tried include Albuterol with partial relief of symptoms. Review of Systems Per HPI. ACTIVE PROBLEM LIST Asthma Esophageal Reflux Tobacco Use Disorder Anxiety With Depression Overactive Bladder Pain of Left Shoulder Region Non-Adherence to Medical Treatment Social History Tobacco Use Smoking status: Every Day Current packs/day: 1.00 Average packs/day: 1 pack/day for 32.3 years (32.3 ttl pk-yrs) Types: Cigarettes Start date: 10/26/1992 Smokeless tobacco: Never Tobacco comments: started age 17 Vaping Use Vaping status: Some Days Substances: Nicotine Devices: Disposable Substance Use Topics Alcohol use: Not Currently Drug use: Yes Types: Marijuana Comment: Ocassionally Current Outpatient Medications Medication Sig sucralfate (CARAFATE) 1 gram tablet Take 1 tablet by mouth four times daily. dicyclomine (BENTYL) 10 mg capsule Take 1 capsule by mouth before meals and at bedtime. pantoprazole DR (PROTONIX) 40 mg tablet Take 1 tablet by mouth once daily. ondansetron orally disintegrating (ZOFRAN ODT) 4 mg disintegrating tablet Take 1 tablet by mouth every 6 hours as needed for nausea/vomiting. estradiol (CLIMARA) 0.05 mg/24 hr patch apply 1 patch topically once a week PARoxetine (PAXIL) 10 mg tablet Take 1 tablet by mouth once daily. For hot flashes albuterol HFA (VENTOLIN HFA) 90 mcg/actuation inhaler INHALE TWO PUFFS BY MOUTH EVERY 6 HOURS NEEDED FOR WHEEZING OR SHORTNESS OF BREATH EPINEPHrine (EPIPEN) 0.3 mg/0.3 mL auto-injector GIVE ONE DOSE INTO LATERAL THIGH FOR ALLERGIC REACTION. REPEAT DOSE IN 5-15 MINUTES IF NOT IMPROVING predniSONE (DELTASONE) 20 mg tablet Take 1 tablet by mouth once daily for 3 days. testosterone 1.62 % (20.25 mg/1.25 gram) glpk Apply as directed. (Patient not taking: Reported on 01/08/2025) No current facility-administered medications for this visit. Objective BP 110/64 (BP Site: Left Arm, BP Position: Sitting, BP Cuff Size: Large Adult) Pulse 88 Temp 37.2 ?C (98.9 ?F) (Temporal) Resp 20 Wt 66.8 kg (147 lb 4.3 oz) LMP 05/16/2015 BMI 28.76 kg/m? Physical Exam Constitutional: General: She is not in acute distress. Appearance: She is not ill-appearing. HENT: Right Ear: Tympanic membrane normal. Left Ear: Tympanic membrane normal. Nose: No congestion or rhinorrhea. Mouth/Throat: Mouth: Mucous membranes are moist. Pharynx: Oropharynx is clear. No pharyngeal swelling, oropharyngeal exudate or posterior oropharyngeal erythema. Comments: Hoarseness noted. Pulmonary: Effort: No respiratory distress. Breath sounds: Wheezing present. No rhonchi or rales. Comments: Few scattered wheezes. Musculoskeletal: Cervical back: No tenderness. Lymphadenopathy: Cervical: No cervical adenopathy. Neurological: Mental Status: She is alert. Assessment and Plan 1. Laryngitis, acute - ICD9: 464.00, ICD10: J04.0 (primary diagnosis) - PREDNISONE 20 MG TABLET - Voice rest. Viral URI measures. 2. Asthma with acute exacerbation, unspecified asthma severity, unspecified whether persistent - ICD9: 493.92, ICD10: J45.901 Mild exacerbation. - PREDNISONE 20 MG TABLET Yassine Radford MD Allergies As of Date: 01/26/2025 Noted Allergy Reaction BEES 06/23/2011 10 - Anaphylaxis Comments: Pt had swelling, was given epipen at ER. DIAZEPAM 08/03/2015 4 - Hives Comments: Hives on chest only. MORPHINE 11/10/2014 2 - Rash 9 - Itching Comments: Left arm turned red when given IV morphine PENICILLINS 02/14/2011 14 - Other: See Comments 4 - Hives Comments: Patient refuses due to family allergy to PCN. BENZONATATE 11/03/2017 2 - Rash Date Reviewed: 01/26/2025 Reviewed by: Leticia Persaud LPN - Fully Assessed Reason for Visit: Cough [28] Primary Visit Diagnosis:Laryngitis, acute [J04.0] Other Visit Diagnosis:Asthma with acute exacerbation, unspecified asthma severity, unspecified whether persistent [J45.901] Order(s):predniSONE (DELTASONE) 20 mg tabletTake 1 tablet by mouth once daily for 3 days.Disp: 3 tabletRfl: 0 Prescriptions as of 01/27/2025 - predniSONE (DELTASONE) 20 mg tablet Take 1 tablet by mouth once daily for 3 days. - sucralfate (CARAFATE) 1 gram tablet Take 1 tablet by mouth four times daily. - dicyclomine (BENTYL) 10 mg capsule Take 1 capsule by mouth before meals and at bedtime. - pantoprazole DR (PROTONIX) 40 mg tablet Take 1 tablet by mouth once daily. - ondansetron orally disintegrating (ZOFRAN ODT) 4 mg disintegrating tablet Take 1 tablet by mouth every 6 hours as needed for nausea/vomiting. - estradiol (CLIMARA) 0.05 mg/24 hr patch apply 1 patch topically once a week - PARoxetine (PAXIL) 10 mg tablet Take 1 tablet by mouth once daily. For hot flashes - albuterol HFA (VENTOLIN HFA) 90 mcg/actuation inhaler INHALE TWO PUFFS BY MOUTH EVERY 6 HOURS NEEDED FOR WHEEZING OR SHORTNESS OF BREATH - EPINEPHrine (EPIPEN) 0.3 mg/0.3 mL auto-injector GIVE ONE DOSE INTO LATERAL THIGH FOR ALLERGIC REACTION. REPEAT DOSE IN 5-15 MINUTES IF NOT IMPROVING Meds Comments as of 12/05/2022: Problem List As Of Date 01/26/2025 Noted Resolved Bipolar disorder, unspecified (HCC) [F31.9] 07/26/2006 09/01/2020 Asthma [J45.909] 07/26/2006 ESOPHAGEAL REFLUX [K21.9] 08/23/2006 Pruritus of genital organs [L29.3] 11/21/2006 01/03/2011 TOBACCO USE DISORDER [F17.200] 12/25/2006 Lumbago [M54.50] 03/09/2008 04/18/2018 Dysuria [R30.0] 05/21/2009 01/03/2011 Abdominal pain, generalized [R10.84] 10/05/2009 01/03/2011 Abdominal pain, epigastric [R10.13] 10/26/2009 03/15/2012 Disturbance of skin sensation [R20.9] 01/21/2010 01/03/2011 Cervicalgia [M54.2] 01/21/2010 01/03/2011 Abdominal pain, right upper quadrant [R10.11] 07/11/2011 03/15/2012 Gastritis/duodenitis [K29.70, K29.90] 07/21/2011 03/15/2012 Acute gastritis without mention of hemorrhage [*07/21/2011 03/15/2012 Irritable bowel syndrome [K58.9] 03/15/2012 09/01/2020 Abdominal pain, chronic, generalized [R10.84, G*07/04/2013 04/18/2018 ASCUS (atypical squamous cells of undetermined *09/24/2013 04/18/2018 Myofascial pain [M79.18] 11/07/2013 04/18/2018 Pain of left thumb [M79.645] 01/20/2015 04/18/2018 Raynaud's phenomenon without gangrene [I73.00] 02/01/2017 12/14/2019 Mixed stress and urge urinary incontinence [N39*12/13/2019 09/08/2021 Thoracic outlet syndrome [G54.0] 06/14/2020 03/12/2023 TOS (thoracic outlet syndrome) [G54.0] 10/18/2021 05/23/2022 Anxiety with depression [F41.8] 05/23/2022 Overactive bladder [N32.81] 07/28/2022 Pain of left shoulder region [M25.512] 12/28/2022 Non-adherence to medical treatment [Z91.199] 03/12/2023 Other instructions from your clinician: You have a viral illness for which antibiotics are not recommended. Viral illnesses, like a cold, resolve on their own, unless a secondary infection occurs. You need rest, fluids, and over the counter medications for symptoms. If prescribed a medication for a specific viral infection, start this immediately. Call us if symptoms worsen, persist, or if you have new symptoms in several days. Preventing the Spread of Respiratory Viruses Stay home and away from others if you have respiratory virus symptoms... You can go back to your normal activities when for for at least 24 hours, both are true: 1. Your symptoms are getting better overall, AND 2. You have not had a fever (and are not using fever-reducing medications). When you go back to normal activities, take added precautions over the next 5 days, such as taking additions steps for commercial or institutional cleaner air, hygiene, masks, physical distancing, and or testing when you will be around other people indoors. For more information go to https://www.cdc.gov/respiratory-viruses/prevention/index.html Prescriptions ordered this encounter Disp Refills Start End PREDNISONE 20 MG TABLET 3 ta* 0 01/26/2025 01/29/2025 Route: ORAL Sig: Take 1 tablet by mouth once daily for 3 days. Medications Discontinued During This Encounter Prescriptions - testosterone 1.62 % (20.25 mg/1.25 gram) glpk (Discontinued) Reported on 01/08/2025 Disposition: Return if symptoms worsen or fail to improve. Follow-up and Disposition History for Encounter Date Provider Department Center 01/26/2025 [id number] RADFORD [facility] Encounter Status:Closed by YASSINE RADFORD on 01/27/25 CT ABD/PEL W IVCON Observed: 01/22/2025 9:38 AM Status: F Source: [facility] * * *Final Report* * * DATE OF EXAM: Jan 22 2025 9:38AM [facility] 0530 - CT ABD/PEL W IVCON / PROCEDURE REASON: multiple diagnoses * * * * Physician Interpretation * * * * EXAMINATION: CT ABDOMEN AND PELVIS WITH IV CONTRAST CLINICAL HISTORY: Epigastric pain and rebound tenderness. Peritonitis or perforation suspected. TECHNIQUE: CT of the abdomen and pelvis was performed using standard technique, scanning from just above the dome of the diaphragm to the symphysis pubis. MQ: CTAP_3 Contrast: IV: 100 ml of Omnipaque 350 Oral: 10 ml of Omni 240 10-25ml diluted with water CT Radiation dose: Integrated Dose-length product (DLP) for this visit = 414 mGy*cm. CT Dose Reduction Employed: Automated exposure control(AEC) and iterative recon COMPARISON: CT of the abdomen and pelvis with contrast from 0 7/0 9/0 RESULT: Liver: Normal with normal variant focal fatty infiltration along the falciform ligament. Biliary: No bile duct dilation. Gallbladder is unremarkable. Spleen: No mass. No splenomegaly. Pancreas: No mass or duct dilation. Adrenals: No mass. Kidneys: Small cyst along the medial mid to upper pole of the left kidney. GI tract: No bowel obstruction. Appendix is visualized and is normal. Lymph nodes: No abdominal or pelvic lymphadenopathy. Mesentery/Peritoneum: No ascites or mass. Pelvis: Hysterectomy. Trace free fluid in the pelvis. Bones/Soft Tissues: No significant osseous finding. Mild diffuse anasarca. Lower thorax: Limited evaluation of the lower chest demonstrates minimal discoid atelectasis in the left lower lobe. Localizer images: No additional findings. IMPRESSION: 1. No cause for patient's symptoms detected on CT of the abdomen and pelvis. There is no acute infectious or inflammatory process detected. No evidence of pneumoperitoneum. There is trace free fluid in the pelvis which is nonspecific. If patient's symptoms persist or worsen, given the clinical suspicion for peritonitis, there should be a low threshold for repeat imaging to ensure that there is no developing inflammatory process or impending perforation. Whale Trainer: JUSTIN Transcribe Date/Time: Jan 22 2025 9:52A Dictated by : JAMES LE MD This examination was interpreted and the report reviewed and electronically signed by: JAMES LE MD on Jan 22 2025 10:11AM EST [id number] PROGRESS Observed: 01/22/2025 9:20 AM Status: COMPLETED Source: [facility] ID: [id number] Author: RHODA CHASE RT(R) Service: ? Author Type: Powder Worker Type: Progress Notes Filed: 01/22/2025 15:58 Note Text: Radiology Service Progress Note DATE OF SERVICE: January 22, 2025 TIME: 3:58 PM PATIENT IDENTITY VERIFICATION COMPLETED USING TWO (2) STANDARD IDENTIFIERS: Name and Date of confirmed by patient verbally. FALL SCREENING: Has the patient had 2 falls in the last year or 1 fall with injury or currently using an Ambulatory Assistive Device (Walker, Cane, Wheelchair, Crutches, etc.)? No PATIENT GENDER DATA: Assigned female at . status: : No status: NO. PATIENT RELEVANT IMPLANT DATA REVIEWED: Yes PATIENT PRESENTS WITH AN IMPLANTABLE OR ATTACHED INSTRUCTIONAL MEDIA SERVICES TECHNICIAN: No ALLERGIES: Reviewed and unchanged CONTRAST ALLERGY: NO. EXAM: CT -CONTRAST INDUCED NEPHROPATHY RISK FACTORS: Not applicable CREATININE: Creatinine Date Value Ref Range Status 01/17/2022 0.72 0.58 - 0.96 mg/dL Final 09/28/2021 0.69 0.58 - 0.96 mg/dL Final 09/27/2021 0.53 (L) 0.58 - 0.96 mg/dL Final eGFR-All Other Races Date Value Ref Range Status 01/17/2022 >60 . Final Comment: eGFR (Estimated GFR) Units of measure: mL/min/1.73 meters squared eGFR is derived from the reexpressed MDRD Study equation using the following parameters: serum creatinine, age, gender and race. The creatinine assay has been calibrated to be traceable to IDMS. An eGFR <60 mL/min/1.73m2 for >3 months is consistent with chronic kidney disease. Refer to KDOQI guidelines for clinical interpretation. In patients with unstable renal function, e.g. those with acute kidney injury, the eGFR may not accurately reflect actual GFR. Note: On 01/21/2022, the eGFR calculation will be updated to the NKF-ASN Task Force recommended 2020 CKD-EPI creatinine equation which does not include a race variable. For more information or to access a 2020 CKD-EPI calculator, visit the [employer] website at kidney.org/professionals/kdoqi/gfr_calculator. eGFR- Date Value Ref Range Status 01/17/2022 >60 Final P.O.C.T. RESULTS: N/A January 22, 2025 TREATMENT: N/A PERIPHERAL IV DATA: Ambulatory: A peripheral IV was started in the Left antecubital site with a Angio cath: 22 gauge. RADIOLOGY DEPARTMENT: CT; Exam(s) Completed: Abdomen/Pelvis SIGNATURE: RT Alessio(R) PATIENT NAME: Anne Chung DATE: January 22, 2025 TIME: 3:58 PM PROGRESS Observed: 01/20/2025 2:06 PM Status: COMPLETED Source: [facility] ID: [id number] Author: MAYDA MADRIGAL MD Service: ? Author Type: Physician Type: Progress Notes Filed: 01/20/2025 16:08 Note Text: Reason for Visit Anne Chung is a 39 year oldfemale who presents here Patient presents with: Abdominal Pain: Stomach pain for 2 months upper abdomen, [facility] 01/15/25 Health Maintenance Hepatitis B Vaccine(1 of 3 - 19+ 3-dose series) Pneumococcal Vaccine(1 of 2 - PCV) DTaP,Tdap,Td Vaccine(2 - Td or Tdap) Mammogram Screening HPI Abdominal pain: She has been having pain in the abdomen for the past 2 months, she is going through a dissolution of marriage which has been stressful and this started when she was going through a stressful period. Has baseline abdominal pain from IBS, this pain is a little different,in that there is no associated bowel movement issues with the pain. she is losing weight but says it is likely from stress of what is going on. The pain is described as constant since the of this month. She had pain and vomiting . Was directed to the ER and had to get some fluids in the ER on the . Had ct with constrast and was thought to be lining of the stomach that was an issues. Pain is in the epigastric area, she has a rectus diastasis that is small and she notes pain there. Pain is constant 7/10 pain, she does not have pain related to food, not increase in the past from food. She does feel like food is getting stuck in her chest. She has no radiation of the pain. Coming up with an egd, She does not drink much alcohol.. No problem-specific Assessment AND Plan notes found for this encounter. PAST MEDICAL HISTORY Diagnosis Date Abnormal mammogram 02/16/2017 Anxiety and depression ASCUS (atypical squamous cells of undetermined significance) on Pap smear 09/24/2013 ASTHMA UNSPECIFIED 07/26/2006 BIPOLAR DISORDER NOS 07/26/2006 COVID 11/27/2021 Esophageal reflux 08/23/2006 Hidradenitis 01/15/2007 Hot flashes Insomnia Irritable bowel syndrome 03/15/2012 Mastodynia 08/23/2006 Mixed stress and urge urinary incontinence 12/13/2019 Nausea 01/02/2011 Pilonidal cyst with abscess 12/19/2023 PTSD (post-traumatic stress disorder) 180 dx Raynaud's phenomenon without gangrene 02/01/2017 Thoracic outlet [...] dental extraction REMOVAL OF OVARY(S) Right 05/10/2023 FAMILY HISTORY Problem Relation Age of Onset [...] Grandmother Diabetes Paternal Grandfather Heart Paternal Grandfather Social History Tobacco Use Smoking status: Every Day Current packs/day: 1.00 Average packs/day: 1 pack/day for 32.2 years (32.2 ttl pk-yrs) Types: Cigarettes Start date: 10/26/1992 Smokeless tobacco: Never Tobacco comments: started age 17 Vaping Use Vaping status: Some Days Substances: Nicotine Devices: Disposable Substance Use Topics Alcohol use: Not Currently Drug use: Yes Types: Marijuana Comment: Ocassionally Past medical history, appointments, medications, allergies reviewed. Pertinent Lab/Diagnostic Studies are reviewed and discussed today Current Outpatient Medications: pantoprazole DR (PROTONIX) 40 mg tablet ondansetron orally disintegrating (ZOFRAN ODT) 4 mg disintegrating tablet estradiol (CLIMARA) 0.05 mg/24 hr patch PARoxetine (PAXIL) 10 mg tablet albuterol HFA (VENTOLIN HFA) 90 mcg/actuation inhaler EPINEPHrine (EPIPEN) 0.3 mg/0.3 mL auto-injector testosterone 1.62 % (20.25 mg/1.25 gram) glpk Review of Systems CONSTITUTIONAL: No fevers, chills night sweats, unintended weight loss CARDIOVASCULAR: No chest pain, dyspnea, palpitations, orthopnea, PND, ankle edema. PULM: No dyspnea, unexplained cough. GI: No dysphagia/odynophagia, problematic reflux, constipation, diarrhea, changes in stool habits, hematochezia, melena. : No new urinary complaints, including dysuria, gross hematuria or pyuria. NEURO: No new balance problems, peripheral weakness/paresthesias or numbness of concern. Physical Exam BP 106/76 Pulse 60 Ht 152.4 cm (5') Wt 66.7 kg (147 lb) LMP 05/16/2015 SpO2 100% BMI 28.71 kg/m? General appearance: Well appearing, alert, in no acute distress, well nourished. Skin: Skin color, texture, turgor normal, no suspicious rashes or lesions Head: Normocephalic, no masses, lesions, tenderness or abnormalities Eyes: Anicteric sclera. Pupils are equally round and reactive to light. Extraocular movements are intact. Lungs:Normal breathing efforts, Lungs clear to auscultation. No wheezing, rhonchi, rales Heart: RRR without murmur, gallop, or rubs. Abdominal pain: she has significant pain in the epigastric area, with rebound in the right lower quadrant and none on the left side. She does have a Rectus diastasis and I felt that she had a mass or knot in that area, which I thought could be reduced. ASSESSMENT/PLAN: 1. Epigastric pain - ICD9: 789.06, ICD10: R10.13 (primary diagnosis) Unclear reason for this. - SUCRALFATE 1 GRAM TABLET - CT ABD/PEL W IVCON - IV CONTRAST (RADIOLOGY PROCEDURE) - NOT ON MAR - ENTERIC CONTRAST (RADIOLOGY PROCEDURE) - NOT ON MAR 2. Peritonitis (HCC) - ICD9: 567.9, ICD10: K65.9 - SUCRALFATE 1 GRAM TABLET - CT ABD/PEL W IVCON - IV CONTRAST (RADIOLOGY PROCEDURE) - NOT ON MAR - ENTERIC CONTRAST (RADIOLOGY PROCEDURE) - NOT ON MAR 3. Rebound tenderness - ICD9: 789.60, ICD10: R10.829 This is concerning and hence the ct of the abd pelvis. - SUCRALFATE 1 GRAM TABLET - CT ABD/PEL W IVCON - IV CONTRAST (RADIOLOGY PROCEDURE) - NOT ON MAR - ENTERIC CONTRAST (RADIOLOGY PROCEDURE) - NOT ON JAN Voice recognition software was used to compose this office note. Please excuse any unintended typographical errors. CNOV Observed: 01/20/2025 2:00 PM Status: COMPLETED Source: [facility] Office Visit (INTMWS) ANNE CHUNG ([id number]) 1985 F Date Time Provider Department 01/20/25 2:00 PM MAYDA MADRIGAL During your visit today, we recorded the following information about you: Pulse Blood pressure Weight Height 60/minute 106/76 66.7 kg 1.524 m Mayda Madrigal MD 01/20/2025 4:08 PM Signed Reason for Visit Anne Chung is a 39 year oldfemale who presents here Patient presents with: Abdominal Pain: Stomach pain for 2 months upper abdomen, [facility] 01/15/25 Health Maintenance Hepatitis B Vaccine(1 of 3 - 19+ 3-dose series) Pneumococcal Vaccine(1 of 2 - PCV) DTaP,Tdap,Td Vaccine(2 - Td or Tdap) Mammogram Screening HPI Abdominal pain: She has been having pain in the abdomen for the past 2 months, she is going through a dissolution of marriage which has been stressful and this started when she was going through a stressful period. Has baseline abdominal pain from IBS, this pain is a little different,in that there is no associated bowel movement issues with the pain. she is losing weight but says it is likely from stress of what is going on. The pain is described as constant since the of this month. She had pain and vomiting . Was directed to the ER and had to get some fluids in the ER on the . Had ct with constrast and was thought to be lining of the stomach that was an issues. Pain is in the epigastric area, she has a rectus diastasis that is small and she notes pain there. Pain is constant 7/10 pain, she does not have pain related to food, not increase in the past from food. She does feel like food is getting stuck in her chest. She has no radiation of the pain. Coming up with an egd, She does not drink much alcohol.. No problem-specific Assessment AND Plan notes found for this encounter. PAST MEDICAL HISTORY Diagnosis Date Abnormal mammogram 02/16/2017 Anxiety and depression ASCUS (atypical squamous cells of undetermined significance) on Pap smear 09/24/2013 ASTHMA UNSPECIFIED 07/26/2006 BIPOLAR DISORDER NOS 07/26/2006 COVID 11/27/2021 Esophageal reflux 08/23/2006 Hidradenitis 01/15/2007 Hot flashes Insomnia Irritable bowel syndrome 03/15/2012 Mastodynia 08/23/2006 Mixed stress and urge urinary incontinence 12/13/2019 Nausea 01/02/2011 Pilonidal cyst with abscess 12/19/2023 PTSD (post-traumatic stress disorder) 180 dx Raynaud's phenomenon without gangrene 02/01/2017 Thoracic outlet [...] dental extraction REMOVAL OF OVARY(S) Right 05/10/2023 FAMILY HISTORY Problem Relation Age of Onset [...] Grandmother Diabetes Paternal Grandfather Heart Paternal Grandfather Social History Tobacco Use Smoking status: Every Day Current packs/day: 1.00 Average packs/day: 1 pack/day for 32.2 years (32.2 ttl pk-yrs) Types: Cigarettes Start date: 10/26/1992 Smokeless tobacco: Never Tobacco comments: started age 17 Vaping Use Vaping status: Some Days Substances: Nicotine Devices: Disposable Substance Use Topics Alcohol use: Not Currently Drug use: Yes Types: Marijuana Comment: Ocassionally Past medical history, appointments, medications, allergies reviewed. Pertinent Lab/Diagnostic Studies are reviewed and discussed today Current Outpatient Medications: pantoprazole DR (PROTONIX) 40 mg tablet ondansetron orally disintegrating (ZOFRAN ODT) 4 mg disintegrating tablet estradiol (CLIMARA) 0.05 mg/24 hr patch PARoxetine (PAXIL) 10 mg tablet albuterol HFA (VENTOLIN HFA) 90 mcg/actuation inhaler EPINEPHrine (EPIPEN) 0.3 mg/0.3 mL auto-injector testosterone 1.62 % (20.25 mg/1.25 gram) glpk Review of Systems CONSTITUTIONAL: No fevers, chills night sweats, unintended weight loss CARDIOVASCULAR: No chest pain, dyspnea, palpitations, orthopnea, PND, ankle edema. PULM: No dyspnea, unexplained cough. GI: No dysphagia/odynophagia, problematic reflux, constipation, diarrhea, changes in stool habits, hematochezia, melena. : No new urinary complaints, including dysuria, gross hematuria or pyuria. NEURO: No new balance problems, peripheral weakness/paresthesias or numbness of concern. Physical Exam BP 106/76 Pulse 60 Ht 152.4 cm (5') Wt 66.7 kg (147 lb) LMP 05/16/2015 SpO2 100% BMI 28.71 kg/m? General appearance: Well appearing, alert, in no acute distress, well nourished. Skin: Skin color, texture, turgor normal, no suspicious rashes or lesions Head: Normocephalic, no masses, lesions, tenderness or abnormalities Eyes: Anicteric sclera. Pupils are equally round and reactive to light. Extraocular movements are intact. Lungs:Normal breathing efforts, Lungs clear to auscultation. No wheezing, rhonchi, rales Heart: RRR without murmur, gallop, or rubs. Abdominal pain: she has significant pain in the epigastric area, with rebound in the right lower quadrant and none on the left side. She does have a Rectus diastasis and I felt that she had a mass or knot in that area, which I thought could be reduced. ASSESSMENT/PLAN: 1. Epigastric pain - ICD9: 789.06, ICD10: R10.13 (primary diagnosis) Unclear reason for this. - SUCRALFATE 1 GRAM TABLET - CT ABD/PEL W IVCON - IV CONTRAST (RADIOLOGY PROCEDURE) - NOT ON MAR - ENTERIC CONTRAST (RADIOLOGY PROCEDURE) - NOT ON MAR 2. Peritonitis (HCC) - ICD9: 567.9, ICD10: K65.9 - SUCRALFATE 1 GRAM TABLET - CT ABD/PEL W IVCON - IV CONTRAST (RADIOLOGY PROCEDURE) - NOT ON MAR - ENTERIC CONTRAST (RADIOLOGY PROCEDURE) - NOT ON MAR 3. Rebound tenderness - ICD9: 789.60, ICD10: R10.829 This is concerning and hence the ct of the abd pelvis. - SUCRALFATE 1 GRAM TABLET - CT ABD/PEL W IVCON - IV CONTRAST (RADIOLOGY PROCEDURE) - NOT ON MAR - ENTERIC CONTRAST (RADIOLOGY PROCEDURE) - NOT ON MAR Voice recognition software was used to compose this office note. Please excuse any unintended typographical errors. Allergies As of Date: 01/20/2025 Noted Allergy Reaction BEES 06/23/2011 10 - [...] (BENZONATATE) 11/03/2017 2 - Rash Date Reviewed: 01/20/2025 Reviewed by: Cathleen Prather LPN - Fully Assessed Reason for Visit: Abdominal Pain [1] Cmt: Stomach pain for 2 months upper abdomen, [facility] 01/15/25 Primary Visit Diagnosis:Epigastric pain [R10.13] Other Visit Diagnoses:Peritonitis (HCC) [K65.9] Rebound tenderness [R10.829] Order(s):sucralfate (CARAFATE) 1 gram tabletTake 1 tablet by mouth four times daily.Disp: 120 tabletRfl: 0 CT ABD/PEL W IVCON [[id number]] Order #: [id number] FUTURE iv contrast (will be provided with radiology test)CT ABD/PEL -Inject, intravenously, once for 1 dose.No IV access, insert saline lock prior to the beginning of sedation, infusion, injection of imaging exam. Discontinue saline lock post exam. If Pt. has a central line or IVAD, may access for administration according to line specific nursing protocol. Once exam is complete flush line and de-access according to line specific nursing protocol in the CT contrast administration guidelines link.Disp: 1 EachRfl: 0 enteric contrast (will be provided with radiology test)For CT ABD/PEL W IVCON Routine order Administer, As Directed One Time Only, via Oral, Rectal, both Oral and Rectal, Enteric Tube, Stoma or Indwelling Catheter, Enteric Contrast as designated per enteric contrast guidelinesDisp: 1 EachRfl: 0 dicyclomine (BENTYL) 10 mg capsuleTake 1 capsule by mouth before meals and at bedtime.Disp: 120 capsuleRfl: 2 Prescriptions as of 01/20/2025 - sucralfate (CARAFATE) 1 gram tablet Take 1 tablet by mouth four times daily. - iv contrast (will be provided with radiology test) CT ABD/PEL -Inject, intravenously, once for 1 dose.No IV access, insert saline lock prior to the beginning of sedation, infusion, injection of imaging exam. Discontinue saline lock post exam. If Pt. has a central line or IVAD, may access for administration according to line specific nursing protocol. Once exam is complete flush line and de-access according to line specific nursing protocol in the CT contrast administration guidelines link. - enteric contrast (will be provided with radiology test) For CT ABD/PEL W IVCON Routine order Administer, As Directed One Time Only, via Oral, Rectal, both Oral and Rectal, Enteric Tube, Stoma or Indwelling Catheter, Enteric Contrast as designated per enteric contrast guidelines - dicyclomine (BENTYL) 10 mg capsule Take 1 capsule by mouth before meals and at bedtime. - pantoprazole DR (PROTONIX) 40 mg tablet Take 1 tablet by mouth once daily. - ondansetron orally disintegrating (ZOFRAN ODT) 4 mg disintegrating tablet Take 1 tablet by mouth every 6 hours as needed for nausea/vomiting. - estradiol (CLIMARA) 0.05 mg/24 hr patch apply 1 patch topically once a week - testosterone 1.62 % (20.25 mg/1.25 gram) glpk Apply as directed. - PARoxetine (PAXIL) 10 mg tablet Take 1 tablet by mouth once daily. For hot flashes - albuterol HFA (VENTOLIN HFA) 90 mcg/actuation inhaler INHALE TWO PUFFS BY MOUTH EVERY 6 HOURS NEEDED FOR WHEEZING OR SHORTNESS OF BREATH - EPINEPHrine (EPIPEN) 0.3 mg/0.3 mL auto-injector GIVE ONE DOSE INTO LATERAL THIGH FOR ALLERGIC REACTION. REPEAT DOSE IN 5-15 MINUTES IF NOT IMPROVING Meds Comments as of 12/05/2022: Problem List As Of Date 01/20/2025 Noted Resolved Bipolar disorder, unspecified (HCC) [F31.9] 07/26/2006 09/01/2020 Asthma [J45.909] 07/26/2006 ESOPHAGEAL REFLUX [K21.9] 08/23/2006 Pruritus of genital organs [L29.3] 11/21/2006 01/03/2011 TOBACCO USE DISORDER [F17.200] 12/25/2006 Lumbago [M54.50] 03/09/2008 04/18/2018 Dysuria [R30.0] 05/21/2009 01/03/2011 Abdominal pain, generalized [R10.84] 10/05/2009 01/03/2011 Abdominal pain, epigastric [R10.13] 10/26/2009 03/15/2012 Disturbance of skin sensation [R20.9] 01/21/2010 01/03/2011 Cervicalgia [M54.2] 01/21/2010 01/03/2011 Abdominal pain, right upper quadrant [R10.11] 07/11/2011 03/15/2012 Gastritis/duodenitis [K29.70, K29.90] 07/21/2011 03/15/2012 Acute gastritis without mention of hemorrhage [*07/21/2011 03/15/2012 Irritable bowel syndrome [K58.9] 03/15/2012 09/01/2020 Abdominal pain, chronic, generalized [R10.84, G*07/04/2013 04/18/2018 ASCUS (atypical squamous cells of undetermined *09/24/2013 04/18/2018 Myofascial pain [M79.18] 11/07/2013 04/18/2018 Pain of left thumb [M79.645] 01/20/2015 04/18/2018 Raynaud's phenomenon without gangrene [I73.00] 02/01/2017 12/14/2019 Mixed stress and urge urinary incontinence [N39*12/13/2019 09/08/2021 Thoracic outlet syndrome [G54.0] 06/14/2020 03/12/2023 TOS (thoracic outlet syndrome) [G54.0] 10/18/2021 05/23/2022 Anxiety with depression [F41.8] 05/23/2022 Overactive bladder [N32.81] 07/28/2022 Pain of left shoulder region [M25.512] 12/28/2022 Non-adherence to medical treatment [Z91.199] 03/12/2023 Prescriptions ordered this encounter Disp Refills Start End SUCRALFATE 1 GRAM TABLET 120 * 0 01/20/2025 02/19/2025 Route: ORAL Sig: Take 1 tablet by mouth four times daily. IV CONTRAST (RADIOLOGY PROCEDURE) - * 1 Ea* 0 01/20/2025 01/21/2025 Class: In Office Sig: CT ABD/PEL -Inject, intravenously, once for 1 dose.No IV access, insert saline lock prior to the beginning of sedation, infusion, injection of imaging exam. Discontinue saline lock post exam. If Pt. has a central line or IVAD, may access for administration according to line specific nursing protocol. Once exam is complete flush line and de-access according to line specific nursing protocol in the CT contrast administration guidelines link. ENTERIC CONTRAST (RADIOLOGY PROCEDUR* 1 Ea* 0 01/20/2025 01/21/2025 Class: In Office Sig: For CT ABD/PEL W IVCON Routine order Administer, As Directed One Time Only, via Oral, Rectal, both Oral and Rectal, Enteric Tube, Stoma or Indwelling Catheter, Enteric Contrast as designated per enteric contrast guidelines DICYCLOMINE 10 MG CAPSULE 120 * 2 01/20/2025 04/20/2025 Route: ORAL Sig: Take 1 capsule by mouth before meals and at bedtime. Encounter Status:Closed by MAYDA MADRIGAL on 01/20/25 CNPN Observed: 01/20/2025 12:00 AM Status: COMPLETED Source: [facility] Telephone (INTMWS) SHELDONANNE Debbie ([id number]) 1985 F Date Time Provider Department 01/20/25 YASSINE RADFORD INTMWS During your visit today, we recorded the following information about you: Fabiana Mcmahan RN 01/20/2025 10:21 AM Signed Patient calls and states that she continues to have severe abdominal pain. Patient states that she was seen at [facility] ER and was prescribed [place] for the pain. Patient reports that [place] is not touching the pain. Patient is asking if provider can prescribe something for the pain. Advised patient that if she has that much pain then she should go back to ER to be evaluated again. Patient voiced understanding. Fabiana Mcmahan RN Allergies As of Date: 01/20/2025 Noted Allergy Reaction BEES 06/23/2011 10 - [...] (BENZONATATE) 11/03/2017 2 - Rash Date Reviewed: 01/08/2025 Reviewed by: Mallory Marrero APRN.CAPACITOR REPAIRER - Fully Assessed Reason for Visit: Patient Update [1234] Prescriptions as of 01/20/2025 - pantoprazole DR (PROTONIX) 40 mg tablet Take 1 tablet by mouth once daily. - ondansetron orally disintegrating (ZOFRAN ODT) 4 mg disintegrating tablet Take 1 tablet by mouth every 6 hours as needed for nausea/vomiting. - estradiol (CLIMARA) 0.05 mg/24 hr patch apply 1 patch topically once a week - testosterone 1.62 % (20.25 mg/1.25 gram) glpk Apply as directed. - PARoxetine (PAXIL) 10 mg tablet Take 1 tablet by mouth once daily. For hot flashes - albuterol HFA (VENTOLIN HFA) 90 mcg/actuation inhaler INHALE TWO PUFFS BY MOUTH EVERY 6 HOURS NEEDED FOR WHEEZING OR SHORTNESS OF BREATH - EPINEPHrine (EPIPEN) 0.3 mg/0.3 mL auto-injector GIVE ONE DOSE INTO LATERAL THIGH FOR ALLERGIC REACTION. REPEAT DOSE IN 5-15 MINUTES IF NOT IMPROVING Meds Comments as of 12/05/2022: Problem List As Of Date 01/20/2025 Noted Resolved Bipolar disorder, unspecified (HCC) [F31.9] 07/26/2006 09/01/2020 Asthma [J45.909] 07/26/2006 ESOPHAGEAL REFLUX [K21.9] 08/23/2006 Pruritus of genital organs [L29.3] 11/21/2006 01/03/2011 TOBACCO USE DISORDER [F17.200] 12/25/2006 Lumbago [M54.50] 03/09/2008 04/18/2018 Dysuria [R30.0] 05/21/2009 01/03/2011 Abdominal pain, generalized [R10.84] 10/05/2009 01/03/2011 Abdominal pain, epigastric [R10.13] 10/26/2009 03/15/2012 Disturbance of skin sensation [R20.9] 01/21/2010 01/03/2011 Cervicalgia [M54.2] 01/21/2010 01/03/2011 Abdominal pain, right upper quadrant [R10.11] 07/11/2011 03/15/2012 Gastritis/duodenitis [K29.70, K29.90] 07/21/2011 03/15/2012 Acute gastritis without mention of hemorrhage [*07/21/2011 03/15/2012 Irritable bowel syndrome [K58.9] 03/15/2012 09/01/2020 Abdominal pain, chronic, generalized [R10.84, G*07/04/2013 04/18/2018 ASCUS (atypical squamous cells of undetermined *09/24/2013 04/18/2018 Myofascial pain [M79.18] 11/07/2013 04/18/2018 Pain of left thumb [M79.645] 01/20/2015 04/18/2018 Raynaud's phenomenon without gangrene [I73.00] 02/01/2017 12/14/2019 Mixed stress and urge urinary incontinence [N39*12/13/2019 09/08/2021 Thoracic outlet syndrome [G54.0] 06/14/2020 03/12/2023 TOS (thoracic outlet syndrome) [G54.0] 10/18/2021 05/23/2022 Anxiety with depression [F41.8] 05/23/2022 Overactive bladder [N32.81] 07/28/2022 Pain of left shoulder region [M25.512] 12/28/2022 Non-adherence to medical treatment [Z91.199] 03/12/2023 Encounter Status:Closed by FABIANA MCMAHAN on 01/20/25 CT ABD/PELVIS W/ IV CONTRAST ONLY Observed: 01/15/2025 4:34 PM Status: F Source: [facility] ORIGINAL EXAMINATION: CT OF THE ABDOMEN AND PELVIS WITH CONTRAST 01/15/2025 5:20 pm TECHNIQUE: CT of the abdomen and pelvis was performed with the administration of intravenous contrast. Multiplanar reformatted images are provided for review. Automated exposure control, iterative reconstruction, and/or weight based adjustment of the mA/kV was utilized to reduce the radiation dose to as low as reasonably achievable. COMPARISON: None. HISTORY: ORDERING SYSTEM PROVIDED HISTORY: Reason for Exam: persistent epigastric abd pain x2 months. pt reports hx of ulcer in the past. abdominal pain FINDINGS: Lower Chest: No focal consolidation. Organs: Unremarkable. GI/Bowel: No bowel obstruction, pneumoperitoneum or ascites. Pelvis: Mild bladder wall thickening. Hysterectomy. Peritoneum/Retroperitoneum: Nonaneurysmal abdominal aorta. No enlarged lymph nodes. Bones/Soft Tissues: No acute osseous abnormality. IMPRESSION: Nonspecific mild bladder wall thickening; consider correlation with urinalysis. Otherwise no acute findings. Interpreted by: Kurt Del Valle Preliminary Report By: Kurt Del Valle Electronically signed By Kurt Del Valle Dictated Date: 01/15/2025 5:22:10 PM Prelim Date: 01/15/2025 5:28:09 PM Sign Date: 01/15/2025 5:28:09 PM Ordering Provider: ULISES PERLA Collected: 01/15/2025 4:22 PM Status: F Source: [facility] TYPE CODE TESTS RESULT OUT OF RANGE REFERENCE UNITS LAB SPCUA(LOINC) UA Specimen Type Clean Catch LAB CLRUA(LOINC) UA Color Yellow LAB APPUA(LOINC) UA Appear Clear Clear LAB SGUA(LOINC) UA Spec Grav 1.015 1.015-1.025 LAB GLUA(LOINC) UA Glucose Negative Negative mg/dL LAB BILUA(LOINC) UA Bili Negative Negative LAB KETUA(LOINC) UA Ketones Negative Negative mg/dL LAB BLDUA(LOINC) UA Blood Negative Negative LAB PHUA(LOINC) UA pH 7.0 5.0 - 8.0 LAB PROUA(LOINC) UA Protein Negative Negative mg/dL LAB UROUA(LOINC) UA Urobilinogen 1.0 0.2-1.0 E.U ./dL LAB NITUA(LOINC) UA Nitrite Negative Negative LAB LEUUA(INC) UA Leuk Est Negative Negative Performed By: #### UA #### [address] [address] LIP Collected: 01/15/2025 4:11 PM Status: F Source: [facility] TYPE CODE TESTS RESULT OUT OF RANGE REFERENCE UNITS LAB LIP(INC) Lipase Level 12 Low 16-77 U/L Performed By: #### GFR, CBC, ADIFF, ANEU, MDW, LIP, CMP #### [address] [address] CMP Collected: 01/15/2025 4:11 PM Status: F Source: [facility] Order Comment: hemolyzed TYPE CODE TESTS RESULT OUT OF RANGE REFERENCE UNITS LAB GLU(LOINC) Glucose Level 87 70-105 mg/dL LAB NA(LOINC) Sodium Level 140 136-145 mmol/L LAB K(LOINC) Potassium Level 3.0 Low 3.5-5.1 mmol/L LAB CL(LOINC) Chloride 107 98-107 mmol/L LAB CO2(LOINC) CO2 26 22-29 mmol/L LAB EBAL(LOINC) Electrolyte Balance 7.0 4.0-15.0 mEq/L LAB BUN(LOINC) BUN 4 Low 7-18 mg/dL LAB CRE(LOINC) Creatinine Lvl (s) 0.63 0.55-1.02 mg/dL Result Comment: Testing perf ormed on Siemens Dimension EXL analyzer using a modified kinetic Manjula technique. LAB BC(LOINC) BUN/Creatinine Ratio 6 Low 7-27 ratio LAB CA(LOINC) Calcium Lvl 8.2 Low 8.4-10.2 mg/dL LAB PROT(LOINC) Total Protein 6.4 6.4-8.2 G/dL LAB ALB(LOINC) Albumin Level 3.5 3.5-5.0 G/dL LAB GLB(LOINC) Globulin 2.9 1.5-3.8 G/dL LAB AG(LOINC) A/G Ratio 1.2 1.1-2.5 ratio LAB BILT(LOINC) Bili Total 0.6 0.2-1.0 mg/dL Result Comment: Use of this assay is not recommended for patients undergoing treatment with eltrombopag due to the potential for falsely elevated results. LAB AP(LOINC) Alk Phos 76 40-135 U/L LAB AST(LOINC) AST/SGOT 13 10-40 U/L LAB ALT(LOINC) ALT/SGPT 17 14-59 U/L Performed By: #### GFR, CBC, ADIFF, ANEU, MDW, LIP, CMP #### [address] [address] .GFR Collected: 01/15/2025 4:11 PM Status: F Source: [facility] TYPE CODE TESTS RESULT OUT OF RANGE REFERENCE UNITS LAB eGFR(LOINC) Estimated Glomerular Filtration Rate 115 ml/min/1. 73sqm Result Comment: Stages of Chronic Kidney Disease (CKD) Stage Description eGFR(ml/min/1.73 sq.m.) CKD 1 Normal kidney function or >=90 normal kindney function with possible kidney damage (ex. Proteinuria) CKD 2 Kidney damage with mild loss 60-89 of kidney function CKD 3a Mild to moderate loss of kidney 45-59 function CKD 3b Moderate to severe loss of 30-44 of kindey function CKD 4 Severe loss of kidney function 15-29 CKD 5 Kidney failure <15 Note: (go live 2024) the eGFR calculation was updated to the 2020 CKD-EPI creatinine equation without a race factor to calculate the eGFR results. Performed By: #### GFR, CBC, JIMENEZ GRAHAM MDW, LIP, CMP #### [address] [place], [place] [address] CBC Collected: 3:51 PM Status: F Source: [facility] TYPE CODE TESTS RESULT OUT OF RANGE REFERENCE UNITS LAB WBC(LOINC) WBC 7.8 4.5-10.8 10 3/mcL LAB RBCCT(LOINC) RBC 4.40 4.10-5.30 10 6/mcL LAB HGB(LOINC) Hgb 14.4 12.0-16.0 G/dL LAB HCT(LOINC) Hct 41.8 34.0-46.0 % LAB MCV(LOINC) MCV 94.9 80.0-99.0 fL LAB MCH(LOINC) MCH 32.7 27.0-33.0 pg LAB MCHC(LOINC) MCHC 34.5 32.0-36.0 G/dL LAB RDW(LOINC) RDW 13.7 11.5-15.5 % LAB PLT(LOINC) Platelet 152 150-450 10 3/mcL LAB MPV(LOINC) MPV 9.6 6.6-10.5 fL Performed By: #### GFR, CBC, JIMENEZ GRAHAM MDW, LIP, CMP #### [id number] [place], [place] [address] .AUTO DIFF Collected: 01/15/2025 3:51 PM Status: F Source: [facility] TYPE CODE TESTS RESULT OUT OF RANGE REFERENCE UNITS LAB YAW(LOINC) Neutrophil % 81.2 High 50.0-75.0 % LAB LYM(LOINC) Lymphocyte % 11.0 Low 20.0-40.0 % LAB MON(LOINC) Monocyte % 7.2 2.0-13.0 % LAB EO(LOINC) Eosinophil % 0.3 0.0-7.0 % LAB BAS(LOINC) Basophil % 0.3 0.0-2.5 % LAB ABLYM(LOINC) Lymphocyte, Absolute 0.9 0.9-4.3 10 3/mcL LAB LOLITA(LOINC) Monocyte, Absolute 0.6 0.1-1.4 10 3/mcL LAB AEOS(LOINC) Eosinophil, Absolute 0.0 0.0-0.7 10 3/mcL LAB ABAS(LOINC) Basophil, Absolute 0.0 0.0-0.2 10 3/mcL Performed By: #### GFR, CBC, ADIFF, ANEU, MDW, LIP, CMP #### [address] [address] .NEUABS Collected: 3:51 PM Status: F Source: [facility] TYPE CODE TESTS RESULT OUT OF RANGE REFERENCE UNITS LAB ANEU(LOINC) Neutrophil, Absolute 6.3 2.3-8.1 10 3/mcL Performed By: #### GFR, CBC, ADIFF, ANEU, MDW, LIP, CMP #### [address] [place], [place] [address] .MDW Collected: 01/15/2025 3:51 PM Status: F Source: [facility] TYPE CODE TESTS RESULT OUT OF RANGE REFERENCE UNITS LAB MDW(LOINC) Monocyte Distribution Width 22.69 High 0.00-20.00 Result Comment: For adults i n ED, MDW>20.0 may be associated with a higher risk of sepsis during the first 12hrs of hospital admission Performed By: #### GFR, CBC, ADIFF, ANEU, MDW, LIP, CMP #### [address] [place], [place] [address] CNPTOUTREACH Observed: 01/13/2025 12:00 AM Status: COMPLETED Source: [facility] Patient Outreach (INTMWS) ANNE CHUNG ([id number]) 1985 F Date Time Provider Department 01/13/25 YASSINE RADFORD INTMWS During your visit today, we recorded the following information about you: Allergies As of Date: 01/13/2025 Noted Allergy Reaction BEES 06/23/2011 10 - [...] (BENZONATATE) 11/03/2017 2 - Rash Date Reviewed: 01/08/2025 Reviewed by: Mallory Marrero APRN.CAPACITOR REPAIRER - Fully Assessed Visit Diagnosis:Encounter for screening mammogram for breast cancer [Z12.31] Order(s):[facility] SCREENING W BRI [[id number]] Order #: [id number] FUTURE Prescriptions as of 02/13/2025 - oxycodone HCl (OXYCODONE, BULK, MISC) 5 mg every 6 hours as needed. - sucralfate (CARAFATE) 1 gram tablet Take 1 tablet by mouth four times daily. - dicyclomine (BENTYL) 10 mg capsule Take 1 capsule by mouth before meals and at bedtime. - pantoprazole DR (PROTONIX) 40 mg tablet Take 1 tablet by mouth once daily. - ondansetron orally disintegrating (ZOFRAN ODT) 4 mg disintegrating tablet Take 1 tablet by mouth every 6 hours as needed for nausea/vomiting. - estradiol (CLIMARA) 0.05 mg/24 hr patch apply 1 patch topically once a week - PARoxetine (PAXIL) 10 mg tablet Take 1 tablet by mouth once daily. For hot flashes - albuterol HFA (VENTOLIN HFA) 90 mcg/actuation inhaler INHALE TWO PUFFS BY MOUTH EVERY 6 HOURS NEEDED FOR WHEEZING OR SHORTNESS OF BREATH - EPINEPHrine (EPIPEN) 0.3 mg/0.3 mL auto-injector GIVE ONE DOSE INTO LATERAL THIGH FOR ALLERGIC REACTION. REPEAT DOSE IN 5-15 MINUTES IF NOT IMPROVING Meds Comments as of 12/05/2022: Problem List As Of Date 01/13/2025 Noted Resolved Bipolar disorder, unspecified (HCC) [F31.9] 07/26/2006 09/01/2020 Asthma [J45.909] 07/26/2006 ESOPHAGEAL REFLUX [K21.9] 08/23/2006 Pruritus of genital organs [L29.3] 11/21/2006 01/03/2011 TOBACCO USE DISORDER [F17.200] 12/25/2006 Lumbago [M54.50] 03/09/2008 04/18/2018 Dysuria [R30.0] 05/21/2009 01/03/2011 Abdominal pain, generalized [R10.84] 10/05/2009 01/03/2011 Abdominal pain, epigastric [R10.13] 10/26/2009 03/15/2012 Disturbance of skin sensation [R20.9] 01/21/2010 01/03/2011 Cervicalgia [M54.2] 01/21/2010 01/03/2011 Abdominal pain, right upper quadrant [R10.11] 07/11/2011 03/15/2012 Gastritis/duodenitis [K29.70, K29.90] 07/21/2011 03/15/2012 Acute gastritis without mention of hemorrhage [*07/21/2011 03/15/2012 Irritable bowel syndrome [K58.9] 03/15/2012 09/01/2020 Abdominal pain, chronic, generalized [R10.84, G*07/04/2013 04/18/2018 ASCUS (atypical squamous cells of undetermined *09/24/2013 04/18/2018 Myofascial pain [M79.18] 11/07/2013 04/18/2018 Pain of left thumb [M79.645] 01/20/2015 04/18/2018 Raynaud's phenomenon without gangrene [I73.00] 02/01/2017 12/14/2019 Mixed stress and urge urinary incontinence [N39*12/13/2019 09/08/2021 Thoracic outlet syndrome [G54.0] 06/14/2020 03/12/2023 TOS (thoracic outlet syndrome) [G54.0] 10/18/2021 05/23/2022 Anxiety with depression [F41.8] 05/23/2022 Overactive bladder [N32.81] 07/28/2022 Pain of left shoulder region [M25.512] 12/28/2022 Non-adherence to medical treatment [Z91.199] 03/12/2023 Encounter Status:Closed by EPIC, PRODUSER on 02/13/25 PROGRESS Observed: 01/08/2025 11:09 AM Status: COMPLETED Source: [facility] HNO ID: [id number] Author: RHODA PERALTA LPN Service: ? Author Type: LICENSED NURSE Type: Progress Notes Filed: 01/08/2025 13:34 Note Text: REVIEW OF SYSTEMS: General: The patient denies fatigue, denies weight loss, denies weight gain, denies feeling hot, and denies feelings of cold. Eyes: The patient denies glaucoma, denies eye injury/surgery, does not wear glasses or contacts. Ear/Nose/Throat: The patient denies allergies, denies hayfever, denies ear infections, and denies bloody noses. Cardiovascular: The patient denies chest pain, denies heart disease, denies high blood pressure,denies cardiac stent, denies prior heart attack, denies irregular heart beat, denies high cholesterol, denies poor circulation, denies heart failure, other cardiac issues, denies claudication, denies cold feet, denies peripheral arterial stent. Respiratory: The patient denies tuberculosis, denies pneumonia, denies frequent cough, denies pulmonary embolism, denies shortness of breath, and denies coughing up blood. Gastrointestinal: The patient denies difficulty swallowing, notes acid reflux, notes ulcers, denies vomiting, denies jaundice/hepatitis, denies gallbladder problems, denies black or tarry stools, denies hemorrhoids, denies bleeding from rectum, denies diverticulitis, denies constipation, denies diarrhea, denies loss of stool control, and denies hernias. Kidney/Bladder: The patient denies kidney stones, denies urine infections, and denies bloody urine. Skin: The patient denies a history of skin cancer, denies bleeding/changing moles, and denies a history of skin rash. Neurologic: The patient denies a history of epilepsy/convulsions, denies headaches, denies head/spinal injuries, and denies stroke/TIA. Psychiatric: The patient denies psychiatric medications, notes depression, and denies voices, denies substance abuse. Endocrine: The patient denies thyroid disorders, denies diabetes, and denies hormonal problems. Hematologic: The patient denies a history of bruising, denies bleeding, and denies anemia, denies blood clots. Infections: The patient denies a history of measles and mumps, denies rheumatic fever, and denies sexually transmitted diseases. Musculoskeletal: The patient denies back pain/injury, denies back problems, denies sciatica, denies knee/foot trouble, denies arthritis, or denies gout. When was patient's last Mammogram screening? Has done at [facility] and is uncertain when last done but validates she is over due. Last Colonoscopy: None Rhoda Peralta LPN PROGRESS Observed: 01/08/2025 11:00 AM Status: COMPLETED Source: [facility] HNO ID: [id number] Author: MALLORY MARRERO APRN.CAPACITOR REPAIRER Service: ? Author Type: Nurse Practitioner Type: Progress Notes Filed: 01/08/2025 13:34 Note Text: HISTORY AND PHYSICAL Anne Chung : 1985 REFERRING PHYSICIAN: German Acevedo0 [facility] [address] CHIEF COMPLAINT: Patient presents with: Consult: GERD HPI: Anne is a 39 year old female referred for endoscopy. Anne notes concern for stomach ulcer. Anne notes heartburn. -burning pain the starts at mid abdominal point and travels up esophagus Anne notes upper abdominal pain -decreased appetite -rapid weight loss, 26# over 2 months -currently under a lot of stress while from - PCP started on carafate AND omeprazole- notes no improvement. Anne notes dysphagia. -points to mid chest and states foods AND liquids both feel like they are getting stuck Anne notes a history of ulcers/ peptic ulcer disease. Anne has undergone prior endoscopy. Last EGD AND colonoscopy was 10/[address] Escalona at [facility]. Sedation: MAC EGD Impression: - Normal esophagus. - Erythematous mucosa in the antrum. Biopsied. - Normal examined duodenum. COLONOSCOPY Impression: - The entire examined colon is normal. Biopsied. CONVERTED FINAL DIAGNOSIS 1. Antrum, biopsy (A) - Antral mucosa with no diagnostic alteration. 2. Random colon, biopsy (B) - Colonic mucosa with no diagnostic alteration. ALDA/simran 11/10/2016 Current Outpatient Medications Medication Sig ondansetron orally disintegrating (ZOFRAN ODT) 4 mg disintegrating tablet Take 1 tablet by mouth every 6 hours as needed for nausea/vomiting. estradiol (CLIMARA) 0.05 mg/24 hr patch apply 1 patch topically once a week PARoxetine (PAXIL) 10 mg tablet Take 1 tablet by mouth once daily. For hot flashes albuterol HFA (VENTOLIN HFA) 90 mcg/actuation inhaler INHALE TWO PUFFS BY MOUTH EVERY 6 HOURS NEEDED FOR WHEEZING OR SHORTNESS OF BREATH EPINEPHrine (EPIPEN) 0.3 mg/0.3 mL auto-injector GIVE ONE DOSE INTO LATERAL THIGH FOR ALLERGIC REACTION. REPEAT DOSE IN 5-15 MINUTES IF NOT IMPROVING pantoprazole DR (PROTONIX) 40 mg tablet Take 1 tablet by mouth once daily. testosterone 1.62 % (20.25 mg/1.25 gram) glpk Apply as directed. (Patient not taking: Reported on 01/08/2025) No current facility-administered medications for this visit. ALLERGIES: Bees, Morphine, Penicillins, Valium [Diazepam], and Tessalon [Benzonatate] PAST MEDICAL HISTORY Diagnosis Date Abnormal mammogram 02/16/2017 Anxiety and depression ASCUS (atypical squamous cells of undetermined significance) on Pap smear 09/24/2013 ASTHMA UNSPECIFIED 07/26/2006 BIPOLAR DISORDER NOS 07/26/2006 COVID 11/27/2021 Esophageal reflux 08/23/2006 Hidradenitis 01/15/2007 Hot flashes Insomnia Irritable bowel syndrome 03/15/2012 Mastodynia 08/23/2006 Mixed stress and urge urinary incontinence 12/13/2019 Nausea 01/02/2011 Pilonidal cyst with abscess 12/19/2023 PTSD (post-traumatic stress disorder) 180 dx Raynaud's phenomenon without gangrene 02/01/2017 Thoracic outlet [...] dental extraction REMOVAL OF OVARY(S) Right 05/10/2023 FAMILY HISTORY Problem Relation Age of Onset [...] Grandmother Diabetes Paternal Grandfather Heart Paternal Grandfather Social History Tobacco Use Smoking status: Every Day Current packs/day: 1.00 Average packs/day: 1 pack/day for 32.2 years (32.2 ttl pk-yrs) Types: Cigarettes Start date: 10/26/1992 Smokeless tobacco: Never Tobacco comments: started age 17 Vaping Use Vaping status: Some Days Substances: Nicotine Devices: Disposable Substance Use Topics Alcohol use: Not Currently Drug use: Yes Types: Marijuana Comment: Ocassionally REVIEW OF SYMPTOMS: The review of systems data was entered by the nurse and reviewed by me SEE NURSING NOTE PHYSICAL EXAMINATION: General: The patient is 39 year old, female well nourished, well hydrated in no acute distress. The patient is oriented to time, place, and person. VITALS: Blood pressure 102/62, pulse 90, temperature 36.3 ?C (97.3 ?F), temperature source Temporal, resp. rate 14, height 152.4 cm (5'), weight 66.7 kg (147 lb), last menstrual period 05/16/2015, SpO2 98%. Body mass index is 28.71 kg/m?. HEENT: Normal cephalic, ataumatic, pupils are equally round, sclera are anicteric, mucous membranes are moist, oropharynx is clear. Neck has no masses, asymmetry or lymphadenopathy. Respiratory: Clear to auscultation and percussion. Normal respiratory excursion and pattern. Cardiac: Examination is regular rate and rhythm. Normal S1/S2 Abdominal exam: Soft, nontender, with no palpable masses. No hepatosplenomegaly. No palpable hernias. Extremities: no clubbing, cyanosis or edema. No adenopathy. LABORATORY VALUES: As Noted RADIOLOGIC STUDIES: As Noted Assessment IMPRESSION: nausea, GERD, epigastric pain, dysphagia, abnormal weight loss PLAN: I have reviewed my findings with the surgeon. Will plan for upper endoscopy. We discussed the risks and benefits of the planned endoscopy. I have informed the patient that complications can occur including failure to complete the endoscopy and perforation. Anne had the opportunity to ask questions concerning the planned endoscopy. My staff has also explained the procedure to the patient in understandable terms and has given the patient printed material concerning the procedure. Anne freely consents to surgery. Switched PPI to protonix 40 mg daily to see if she gets any better relief. I have explained to the patient the difference between IV conscious sedation and MAC anesthesia - and I have offered either, according to the patient's wishes. I have explained that with IV conscious sedation there is no anesthesia provider available and therefore there is a limitation of the amount of IV medications that can be given and that the patient may wake up in the middle of the procedure and/or experience pain/discomfort during the procedure. Further discussion was done and the patient was given the opportunity to ask questions and all questions were answered. MAC anesthesia- pt is allergic to valium. Anne was counseled that if there are changes in his/her medical condition, to let the office know if surgery should proceed. If there are changes in patient's medical condition from time of this encounter to the day of the procedure that preclude anesthesia, patient may have procedure cancelled for patient's safety. Diagnoses: (R11.0) Nausea (primary encounter diagnosis) (K21.9) Gastroesophageal reflux disease, unspecified whether esophagitis present (R10.13) Epigastric pain (R63.4) Abnormal weight loss (R13.10) Dysphagia, unspecified type Consultation requested by German Pires CNP for an opinion regarding GERD. My final recommendations will be communicated back to the requesting physician by way of shared Medical record or letter to requesting physician via US mail. Portions of this documentation were copied and pasted from previous office visit notes in order to provide a cohesive continuity of the history. The note has been reviewed and edited and updated as necessary. Mallory Marrero APRN.CNP CNOV Observed: 01/08/2025 11:00 AM Status: COMPLETED Source: [facility] Office Visit (GENSWS) ANNE CHUNG ([id number]) 1985 F Date Time Provider Department 01/08/25 11:00 AM MALLORY MARRERO During your visit today, we recorded the following information about you: Temperature Pulse Respiration Blood pressure 97.3 degrees 90/minute 14/minute 102/62 Weight Height 66.7 kg 1.524 m Mallory Marrero APRN.CNP 01/08/2025 1:34 PM Signed HISTORY AND PHYSICAL Anne L Sheldon : 1985 REFERRING PHYSICIAN: German Acevedo0 [facility] [address] CHIEF COMPLAINT: Patient presents with: Consult: GERD HPI: Anne is a 39 year old female referred for endoscopy. Anne notes concern for stomach ulcer. Anne notes heartburn. -burning pain the starts at mid abdominal point and travels up esophagus Anne notes upper abdominal pain -decreased appetite -rapid weight loss, 26# over 2 months -currently under a lot of stress while from - PCP started on carafate AND omeprazole- notes no improvement. Anne notes dysphagia. -points to mid chest and states foods AND liquids both feel like they are getting stuck Anne notes a history of ulcers/ peptic ulcer disease. Anne has undergone prior endoscopy. Last EGD AND colonoscopy was 10/[address] Escalona at [facility]. Sedation: MAC EGD Impression: - Normal esophagus. - Erythematous mucosa in the antrum. Biopsied. - Normal examined duodenum. COLONOSCOPY Impression: - The entire examined colon is normal. Biopsied. CONVERTED FINAL DIAGNOSIS 1. Antrum, biopsy (A) - Antral mucosa with no diagnostic alteration. 2. Random colon, biopsy (B) - Colonic mucosa with no diagnostic alteration. TP/simran 11/10/2016 Current Outpatient Medications Medication Sig ondansetron orally disintegrating (ZOFRAN ODT) 4 mg disintegrating tablet Take 1 tablet by mouth every 6 hours as needed for nausea/vomiting. estradiol (CLIMARA) 0.05 mg/24 hr patch apply 1 patch topically once a week PARoxetine (PAXIL) 10 mg tablet Take 1 tablet by mouth once daily. For hot flashes albuterol HFA (VENTOLIN HFA) 90 mcg/actuation inhaler INHALE TWO PUFFS BY MOUTH EVERY 6 HOURS NEEDED FOR WHEEZING OR SHORTNESS OF BREATH EPINEPHrine (EPIPEN) 0.3 mg/0.3 mL auto-injector GIVE ONE DOSE INTO LATERAL THIGH FOR ALLERGIC REACTION. REPEAT DOSE IN 5-15 MINUTES IF NOT IMPROVING pantoprazole DR (PROTONIX) 40 mg tablet Take 1 tablet by mouth once daily. testosterone 1.62 % (20.25 mg/1.25 gram) glpk Apply as directed. (Patient not taking: Reported on 01/08/2025) No current facility-administered medications for this visit. ALLERGIES: Bees, Morphine, Penicillins, Valium [Diazepam], and Tessalon [Benzonatate] PAST MEDICAL HISTORY Diagnosis Date Abnormal mammogram 02/16/2017 Anxiety and depression ASCUS (atypical squamous cells of undetermined significance) on Pap smear 09/24/2013 ASTHMA UNSPECIFIED 07/26/2006 BIPOLAR DISORDER NOS 07/26/2006 COVID 11/27/2021 Esophageal reflux 08/23/2006 Hidradenitis 01/15/2007 Hot flashes Insomnia Irritable bowel syndrome 03/15/2012 Mastodynia 08/23/2006 Mixed stress and urge urinary incontinence 12/13/2019 Nausea 01/02/2011 Pilonidal cyst with abscess 12/19/2023 PTSD (post-traumatic stress disorder) 180 dx Raynaud's phenomenon without gangrene 02/01/2017 Thoracic outlet [...] dental extraction REMOVAL OF OVARY(S) Right 05/10/2023 FAMILY HISTORY Problem Relation Age of Onset [...] Grandmother Diabetes Paternal Grandfather Heart Paternal Grandfather Social History Tobacco Use Smoking status: Every Day Current packs/day: 1.00 Average packs/day: 1 pack/day for 32.2 years (32.2 ttl pk-yrs) Types: Cigarettes Start date: 10/26/1992 Smokeless tobacco: Never Tobacco comments: started age 17 Vaping Use Vaping status: Some Days Substances: Nicotine Devices: Disposable Substance Use Topics Alcohol use: Not Currently Drug use: Yes Types: Marijuana Comment: Ocassionally REVIEW OF SYMPTOMS: The review of systems data was entered by the nurse and reviewed by me SEE NURSING NOTE PHYSICAL EXAMINATION: General: The patient is 39 year old, female well nourished, well hydrated in no acute distress. The patient is oriented to time, place, and person. VITALS: Blood pressure 102/62, pulse 90, temperature 36.3 ?C (97.3 ?F), temperature source Temporal, resp. rate 14, height 152.4 cm (5'), weight 66.7 kg (147 lb), last menstrual period 05/16/2015, SpO2 98%. Body mass index is 28.71 kg/m?. HEENT: Normal cephalic, ataumatic, pupils are equally round, sclera are anicteric, mucous membranes are moist, oropharynx is clear. Neck has no masses, asymmetry or lymphadenopathy. Respiratory: Clear to auscultation and percussion. Normal respiratory excursion and pattern. Cardiac: Examination is regular rate and rhythm. Normal S1/S2 Abdominal exam: Soft, nontender, with no palpable masses. No hepatosplenomegaly. No palpable hernias. Extremities: no clubbing, cyanosis or edema. No adenopathy. LABORATORY VALUES: As Noted RADIOLOGIC STUDIES: As Noted Assessment IMPRESSION: nausea, GERD, epigastric pain, dysphagia, abnormal weight loss PLAN: I have reviewed my findings with the surgeon. Will plan for upper endoscopy. We discussed the risks and benefits of the planned endoscopy. I have informed the patient that complications can occur including failure to complete the endoscopy and perforation. Anne had the opportunity to ask questions concerning the planned endoscopy. My staff has also explained the procedure to the patient in understandable terms and has given the patient printed material concerning the procedure. Anne freely consents to surgery. Switched PPI to protonix 40 mg daily to see if she gets any better relief. I have explained to the patient the difference between IV conscious sedation and MAC anesthesia - and I have offered either, according to the patient's wishes. I have explained that with IV conscious sedation there is no anesthesia provider available and therefore there is a limitation of the amount of IV medications that can be given and that the patient may wake up in the middle of the procedure and/or experience pain/discomfort during the procedure. Further discussion was done and the patient was given the opportunity to ask questions and all questions were answered. MAC anesthesia- pt is allergic to valium. Anne was counseled that if there are changes in his/her medical condition, to let the office know if surgery should proceed. If there are changes in patient's medical condition from time of this encounter to the day of the procedure that preclude anesthesia, patient may have procedure cancelled for patient's safety. Diagnoses: (R11.0) Nausea (primary encounter diagnosis) (K21.9) Gastroesophageal reflux disease, unspecified whether esophagitis present (R10.13) Epigastric pain (R63.4) Abnormal weight loss (R13.10) Dysphagia, unspecified type Consultation requested by German Pires CNP for an opinion regarding GERD. My final recommendations will be communicated back to the requesting physician by way of shared Medical record or letter to requesting physician via US mail. Portions of this documentation were copied and pasted from previous office visit notes in order to provide a cohesive continuity of the history. The note has been reviewed and edited and updated as necessary. Mallory Marrero APRN.Rhoda Quevedo LPN 01/08/2025 1:34 PM Signed REVIEW OF SYSTEMS: General: The patient denies fatigue, denies weight loss, denies weight gain, denies feeling hot, and denies feelings of cold. Eyes: The patient denies glaucoma, denies eye injury/surgery, does not wear glasses or contacts. Ear/Nose/Throat: The patient denies allergies, denies hayfever, denies ear infections, and denies bloody noses. Cardiovascular: The patient denies chest pain, denies heart disease, denies high blood pressure,denies cardiac stent, denies prior heart attack, denies irregular heart beat, denies high cholesterol, denies poor circulation, denies heart failure, other cardiac issues, denies claudication, denies cold feet, denies peripheral arterial stent. Respiratory: The patient denies tuberculosis, denies pneumonia, denies frequent cough, denies pulmonary embolism, denies shortness of breath, and denies coughing up blood. Gastrointestinal: The patient denies difficulty swallowing, notes acid reflux, notes ulcers, denies vomiting, denies jaundice/hepatitis, denies gallbladder problems, denies black or tarry stools, denies hemorrhoids, denies bleeding from rectum, denies diverticulitis, denies constipation, denies diarrhea, denies loss of stool control, and denies hernias. Kidney/Bladder: The patient denies kidney stones, denies urine infections, and denies bloody urine. Skin: The patient denies a history of skin cancer, denies bleeding/changing moles, and denies a history of skin rash. Neurologic: The patient denies a history of epilepsy/convulsions, denies headaches, denies head/spinal injuries, and denies stroke/TIA. Psychiatric: The patient denies psychiatric medications, notes depression, and denies voices, denies substance abuse. Endocrine: The patient denies thyroid disorders, denies diabetes, and denies hormonal problems. Hematologic: The patient denies a history of bruising, denies bleeding, and denies anemia, denies blood clots. Infections: The patient denies a history of measles and mumps, denies rheumatic fever, and denies sexually transmitted diseases. Musculoskeletal: The patient denies back pain/injury, denies back problems, denies sciatica, denies knee/foot trouble, denies arthritis, or denies gout. When was patient's last Mammogram screening? Has done at [facility] and is uncertain when last done but validates she is over due. Last Colonoscopy: None JUVE Gar Kimberley, APRN.CNP 02/25/2025 9:40 AM Signed Addended by: MALLORY MARRERO on: 02/25/2025 09:40 AM Modules accepted: Orders Referring Provider: GERMAN PIRES [[id number]] Allergies As of Date: 01/08/2025 Noted Allergy Reaction BEES 06/23/2011 10 - [...] (BENZONATATE) 11/03/2017 2 - Rash Date Reviewed: 01/08/2025 Reviewed by: Mallory Marrero APRN.CAPACITOR REPAIRER - Fully Assessed Reason for Visit: Consult [173] Cmt: GERD Primary Visit Diagnosis:Nausea [R11.0] Other Visit Diagnoses:Gastroesophageal reflux disease, unspecified whether esophagitis present [K21.9] Epigastric pain [R10.13] Abnormal weight loss [R63.4] Dysphagia, unspecified type [R13.10] Order(s):CONSULT TO GENERAL SURGERY [9011] Order #: [id number]: [address] (PROTONIX) 40 mg tabletTake 1 tablet by mouth once daily.Disp: 90 tabletRfl: 0 EGD DIAGNOSTIC [GI9] Order #: [id number] FUTURE Prescriptions as of 02/25/2025 - cefdinir (OMNICEF) 300 mg capsule Take 300 mg by mouth two times a day. - HYDROcodone-acetaminophen (NORCO) 5-325 mg per tablet Take 1 tablet by mouth every 8 hours as needed for pain for up to 3 days. - predniSONE (DELTASONE) 10 mg tablet Take 4 tabs daily x 3 days, then 3 tabs x 3 days, 2 tabs x 3 days, then 1 tab x3 days with food. - dextromethorphan polistirex ER (DELSYM) 30 mg/5 mL oral liquid Take 10 mL by mouth two times a day for 14 days. - albuterol (PROVENTIL) 2.5 mg /3 mL (0.083 %) nebulizer solution Use 3 mL via nebulizer every 6 hours as needed for wheezing/shortness of breath. - Nebulizer and Compressor For Neb 1 Each four times daily. as needed for cough wheeze or shortness of breath on exertion - oxycodone HCl (OXYCODONE, BULK, MISC) 5 mg every 6 hours as needed. - dicyclomine (BENTYL) 10 mg capsule Take 1 capsule by mouth before meals and at bedtime. - pantoprazole DR (PROTONIX) 40 mg tablet Take 1 tablet by mouth once daily. - ondansetron orally disintegrating (ZOFRAN ODT) 4 mg disintegrating tablet Take 1 tablet by mouth every 6 hours as needed for nausea/vomiting. - estradiol (CLIMARA) 0.05 mg/24 hr patch apply 1 patch topically once a week - PARoxetine (PAXIL) 10 mg tablet Take 1 tablet by mouth once daily. For hot flashes - albuterol HFA (VENTOLIN HFA) 90 mcg/actuation inhaler INHALE TWO PUFFS BY MOUTH EVERY 6 HOURS NEEDED FOR WHEEZING OR SHORTNESS OF BREATH - EPINEPHrine (EPIPEN) 0.3 mg/0.3 mL auto-injector GIVE ONE DOSE INTO LATERAL THIGH FOR ALLERGIC REACTION. REPEAT DOSE IN 5-15 MINUTES IF NOT IMPROVING Meds Comments as of 12/05/2022: Problem List As Of Date 01/08/2025 Noted Resolved Bipolar disorder, unspecified (HCC) [F31.9] 07/26/2006 09/01/2020 Asthma [J45.909] 07/26/2006 ESOPHAGEAL REFLUX [K21.9] 08/23/2006 Pruritus of genital organs [L29.3] 11/21/2006 01/03/2011 TOBACCO USE DISORDER [F17.200] 12/25/2006 Lumbago [M54.50] 03/09/2008 04/18/2018 Dysuria [R30.0] 05/21/2009 01/03/2011 Abdominal pain, generalized [R10.84] 10/05/2009 01/03/2011 Abdominal pain, epigastric [R10.13] 10/26/2009 03/15/2012 Disturbance of skin sensation [R20.9] 01/21/2010 01/03/2011 Cervicalgia [M54.2] 01/21/2010 01/03/2011 Abdominal pain, right upper quadrant [R10.11] 07/11/2011 03/15/2012 Gastritis/duodenitis [K29.70, K29.90] 07/21/2011 03/15/2012 Acute gastritis without mention of hemorrhage [*07/21/2011 03/15/2012 Irritable bowel syndrome [K58.9] 03/15/2012 09/01/2020 Abdominal pain, chronic, generalized [R10.84, G*07/04/2013 04/18/2018 ASCUS (atypical squamous cells of undetermined *09/24/2013 04/18/2018 Myofascial pain [M79.18] 11/07/2013 04/18/2018 Pain of left thumb [M79.645] 01/20/2015 04/18/2018 Raynaud's phenomenon without gangrene [I73.00] 02/01/2017 12/14/2019 Mixed stress and urge urinary incontinence [N39*12/13/2019 09/08/2021 Thoracic outlet syndrome [G54.0] 06/14/2020 03/12/2023 TOS (thoracic outlet syndrome) [G54.0] 10/18/2021 05/23/2022 Anxiety with depression [F41.8] 05/23/2022 Overactive bladder [N32.81] 07/28/2022 Pain of left shoulder region [M25.512] 12/28/2022 Non-adherence to medical treatment [Z91.199] 03/12/2023 Prescriptions ordered this encounter Disp Refills Start End PANTOPRAZOLE 40 MG TABLET,DELAYED RE* 90 t* 0 01/08/2025 04/08/2025 Route: ORAL Sig: Take 1 tablet by mouth once daily. Medications Discontinued During This Encounter Prescriptions - omeprazole (PRILOSEC) 40 mg capsule (Discontinued) Take 1 capsule by mouth two times a day. Encounter Status:Closed by MALLORY MARRERO on 01/08/25 CNPN Observed: 01/08/2025 12:00 AM Status: COMPLETED Source: [facility] Telephone (EpicTopicSWS) ANNE CHUNG ([id number]) 1985 F Date Time Provider Department 01/08/25 MALLORY MARRERO [employer] During your visit today, we recorded the following information about you: Virgilio Hubbard 01/08/2025 11:45 AM Signed offered patient EGD in [place] 01-09-2025 patient declined. patient was given the Endo # ([phone]) to call and see who can get her scheduled the soonest. Allergies As of Date: 01/08/2025 Noted Allergy Reaction BEES 06/23/2011 10 - [...] (BENZONATATE) 11/03/2017 2 - Rash Date Reviewed: 01/08/2025 Reviewed by: Mallory Marrero APRN.CAPACITOR REPAIRER - Fully Assessed Prescriptions as of 02/23/2025 - cefdinir (OMNICEF) 300 mg capsule Take 300 mg by mouth two times a day. - HYDROcodone-acetaminophen (NORCO) 5-325 mg per tablet Take 1 tablet by mouth every 8 hours as needed for pain for up to 3 days. - predniSONE (DELTASONE) 10 mg tablet Take 4 tabs daily x 3 days, then 3 tabs x 3 days, 2 tabs x 3 days, then 1 tab x3 days with food. - dextromethorphan polistirex ER (DELSYM) 30 mg/5 mL oral liquid Take 10 mL by mouth two times a day for 14 days. - albuterol (PROVENTIL) 2.5 mg /3 mL (0.083 %) nebulizer solution Use 3 mL via nebulizer every 6 hours as needed for wheezing/shortness of breath. - Nebulizer and Compressor For Neb 1 Each four times daily. as needed for cough wheeze or shortness of breath on exertion - oxycodone HCl (OXYCODONE, BULK, MISC) 5 mg every 6 hours as needed. - dicyclomine (BENTYL) 10 mg capsule Take 1 capsule by mouth before meals and at bedtime. - pantoprazole DR (PROTONIX) 40 mg tablet Take 1 tablet by mouth once daily. - ondansetron orally disintegrating (ZOFRAN ODT) 4 mg disintegrating tablet Take 1 tablet by mouth every 6 hours as needed for nausea/vomiting. - estradiol (CLIMARA) 0.05 mg/24 hr patch apply 1 patch topically once a week - PARoxetine (PAXIL) 10 mg tablet Take 1 tablet by mouth once daily. For hot flashes - albuterol HFA (VENTOLIN HFA) 90 mcg/actuation inhaler INHALE TWO PUFFS BY MOUTH EVERY 6 HOURS NEEDED FOR WHEEZING OR SHORTNESS OF BREATH - EPINEPHrine (EPIPEN) 0.3 mg/0.3 mL auto-injector GIVE ONE DOSE INTO LATERAL THIGH FOR ALLERGIC REACTION. REPEAT DOSE IN 5-15 MINUTES IF NOT IMPROVING Meds Comments as of 12/05/2022: Problem List As Of Date 01/08/2025 Noted Resolved Bipolar disorder, unspecified (HCC) [F31.9] 07/26/2006 09/01/2020 Asthma [J45.909] 07/26/2006 ESOPHAGEAL REFLUX [K21.9] 08/23/2006 Pruritus of genital organs [L29.3] 11/21/2006 01/03/2011 TOBACCO USE DISORDER [F17.200] 12/25/2006 Lumbago [M54.50] 03/09/2008 04/18/2018 Dysuria [R30.0] 05/21/2009 01/03/2011 Abdominal pain, generalized [R10.84] 10/05/2009 01/03/2011 Abdominal pain, epigastric [R10.13] 10/26/2009 03/15/2012 Disturbance of skin sensation [R20.9] 01/21/2010 01/03/2011 Cervicalgia [M54.2] 01/21/2010 01/03/2011 Abdominal pain, right upper quadrant [R10.11] 07/11/2011 03/15/2012 Gastritis/duodenitis [K29.70, K29.90] 07/21/2011 03/15/2012 Acute gastritis without mention of hemorrhage [*07/21/2011 03/15/2012 Irritable bowel syndrome [K58.9] 03/15/2012 09/01/2020 Abdominal pain, chronic, generalized [R10.84, G*07/04/2013 04/18/2018 ASCUS (atypical squamous cells of undetermined *09/24/2013 04/18/2018 Myofascial pain [M79.18] 11/07/2013 04/18/2018 Pain of left thumb [M79.645] 01/20/2015 04/18/2018 Raynaud's phenomenon without gangrene [I73.00] 02/01/2017 12/14/2019 Mixed stress and urge urinary incontinence [N39*12/13/2019 09/08/2021 Thoracic outlet syndrome [G54.0] 06/14/2020 03/12/2023 TOS (thoracic outlet syndrome) [G54.0] 10/18/2021 05/23/2022 Anxiety with depression [F41.8] 05/23/2022 Overactive bladder [N32.81] 07/28/2022 Pain of left shoulder region [M25.512] 12/28/2022 Non-adherence to medical treatment [Z91.199] 03/12/2023 Encounter Status:Closed by VIRGILIO HUBBARD on 02/23/25 PROGRESS Observed: 12/23/2024 8:40 AM Status: COMPLETED Source: [facility] HNO ID: [id number] Author: GERMAN PIRES APRN.ROTARY SWAGING MACHINE OPERATOR Service: ? Author Type: Nurse Specialist Type: Progress Notes Filed: 12/23/2024 09:21 Note Text: SUBJECTIVE: Hepatitis B Vaccine(1 of 3 - 19+ 3-dose series) Never done Pneumococcal Vaccine(1 of 2 - PCV) Never done DTaP,Tdap,Td Vaccine(2 - Td or Tdap) due on 09/24/2022 Mammogram Screening due on 2024 HPI Anne Chugn is a 39 year old female. PMH significant for ACTIVE PROBLEM LIST Asthma Esophageal Reflux Tobacco Use Disorder Anxiety With Depression Overactive Bladder Pain of Left Shoulder Region Non-Adherence to Medical Treatment PCP: Yassine Radford MD Presents today regarding appetite, rapid weight loss,pain in upper stomach per Mychart scheduling. Today reports she is from her , has a lot of stress, wonders if she might have an ulcer. She reports remote history of ulcer. CC EGD 2010 and 2015 did not demonstrate this. She reports SHIRRING MACHINE OPERATOR discontinue paroxetine which she was using for hot flashes. Currently on estradiol transdermal patch. She reports she is also getting testosterone patch from her SHIRRING MACHINE OPERATOR. Taking ibuprofen and acetominophen for abdominal pain. Heartburn: yes, intermittent Reflux: no Abdominal pain: epigastric Nausea: constant Vomiting: no Diarrhea: no Constipation: no BRBPR: no Black tarry: no Weight: decreased 6 lbs Diet/oral intake: limiting Prior occurrence: yes, remote EGD and colonoscopy 2016 [facility]. EGD showed normal esophagus erythematous mucosa in the antrum. Normal duodenum. Colonoscopy was normal. Negative pathology for both. States feeling numb. She reports ports seeing counselor at [facility]. Review of Systems Gastrointestinal: Positive for abdominal pain and nausea. Psychiatric/Behavioral: Positive for dysphoric mood. Objective BP 92/59 Pulse 80 Resp 16 Wt 65 kg (143 lb 4.8 oz) LMP 05/16/2015 BMI 27.99 kg/m? Physical Exam Vitals and nursing note reviewed. Constitutional: Appearance: Normal appearance. HENT: Head: Normocephalic and atraumatic. Eyes: Conjunctiva/sclera: Conjunctivae normal. Cardiovascular: Rate and Rhythm: Normal rate. Pulses: Dorsalis pedis pulses are 2+ on the left side. Pulmonary: Effort: Pulmonary effort is normal. Feet: Left foot: Skin integrity: Skin integrity [...] chest only. Tessalon [Benzonata* Rash Medication estradiol (CLIMARA) 0.05 mg/24 hr patch apply 1 patch topically once a week testosterone 1.62 % (20.25 mg/1.25 gram) glpk Apply as directed. albuterol HFA (VENTOLIN HFA) 90 mcg/actuation inhaler INHALE TWO PUFFS BY MOUTH EVERY 6 HOURS NEEDED FOR WHEEZING OR SHORTNESS OF BREATH ondansetron orally disintegrating (ZOFRAN ODT) 4 mg disintegrating tablet Take 1 tablet by mouth every 6 hours as needed for nausea/vomiting. omeprazole (PRILOSEC) 20 mg capsule Take 1 capsule by mouth daily before breakfast. EPINEPHrine (EPIPEN) 0.3 mg/0.3 mL auto-injector GIVE ONE DOSE INTO LATERAL THIGH FOR ALLERGIC REACTION. REPEAT DOSE IN 5-15 MINUTES IF NOT IMPROVING PARoxetine (PAXIL) 10 mg tablet Take 1 tablet by mouth once daily. For hot flashes (Patient not taking: Reported on 12/23/2024) PAST MEDICAL HISTORY Diagnosis Date Abnormal mammogram [...] History Tobacco Use Smoking status: Every Day Current packs/day: 1.00 Average packs/day: 1 pack/day for 32.2 years (32.2 ttl pk-yrs) Types: Cigarettes Start date: 10/26/1992 Smokeless tobacco: Never Tobacco comments: started age 17 Vaping Use Vaping status: Never Used Substance Use Topics Alcohol use: No Drug use: Not Currently Types: Marijuana ASSESSMENT/PLAN: 1. Situational depression - ICD9: 309.0, ICD10: F43.21 (primary diagnosis) Recommend resuming paroxetine - PAROXETINE 10 MG TABLET 2. Nausea and vomiting, unspecified vomiting type - ICD9: 787.01, ICD10: R11.2 Recommend daily PPI, sucralfate and as needed Zofran. 3. Hot flashes - ICD9: 782.62, ICD10: R23.2 Using estrogen and testosterone patches from her E SHIRRING MACHINE OPERATOR, paroxetine was discontinued 4. Epigastric pain - ICD9: 789.06, ICD10: R10.13 Recommend omeprazole 40 mg daily, sucralfate x 2 weeks, may repeat x 1 if needed. Mild diet. - OMEPRAZOLE 40 MG CAPSULE,DELAYED RELEASE - SUCRALFATE 100 MG/ML ORAL SUSPENSION 5. Gastroesophageal reflux disease, unspecified whether esophagitis present - ICD9: 530.81, ICD10: K21.9 - Endorse lifestyle modifications including losing weight, limiting caffeine, no meals three hours before sleep, and head of bed elevation. Avoid NSAIDS - OMEPRAZOLE 40 MG CAPSULE,DELAYED RELEASE - ONDANSETRON 4 MG DISINTEGRATING TABLET - CONSULT TO GENERAL SURGERY - SUCRALFATE 100 MG/ML ORAL SUSPENSION 6. Uncomplicated asthma, unspecified asthma severity, unspecified whether persistent - ICD9: 493.90, ICD10: J45.909 - ALBUTEROL SULFATE HFA 90 MCG/ACTUATION AEROSOL INHALER German Pires APRN.CNS Medical Decision Making: Problems: Moderate: 1+ chronic illnesses with change Risk: Moderate: Drug management Medical Decision Making Level: 4 - Moderate CNOV Observed: 12/23/2024 8:40 AM Status: COMPLETED Source: [facility] Office Visit (INTMWS) ANNE CHUNG ([id number]) 1985 F Date Time Provider Department 12/23/24 8:40 AM GERMAN PIRES INTMWS During your visit today, we recorded the following information about you: Pulse Respiration Blood pressure Weight 80/minute 16/minute 92/59 65 kg German Pires APRN.CNS 12/23/2024 9:21 AM Signed SUBJECTIVE: Hepatitis B Vaccine(1 of 3 - 19+ 3-dose series) Never done Pneumococcal Vaccine(1 of 2 - PCV) Never done DTaP,Tdap,Td Vaccine(2 - Td or Tdap) due on 09/24/2022 Mammogram Screening due on 2024 HPI Anne Chung is a 39 year old female. PMH significant for ACTIVE PROBLEM LIST Asthma Esophageal Reflux Tobacco Use Disorder Anxiety With Depression Overactive Bladder Pain of Left Shoulder Region Non-Adherence to Medical Treatment PCP: Yassine Radford MD Presents today regarding appetite, rapid weight loss,pain in upper stomach per Mychart scheduling. Today reports she is from her , has a lot of stress, wonders if she might have an ulcer. She reports remote history of ulcer. CC EGD 2010 and 2015 did not demonstrate this. She reports SHIRRING MACHINE OPERATOR discontinue paroxetine which she was using for hot flashes. Currently on estradiol transdermal patch. She reports she is also getting testosterone patch from her SHIRRING MACHINE OPERATOR. Taking ibuprofen and acetominophen for abdominal pain. Heartburn: yes, intermittent Reflux: no Abdominal pain: epigastric Nausea: constant Vomiting: no Diarrhea: no Constipation: no BRBPR: no Black tarry: no Weight: decreased 6 lbs Diet/oral intake: limiting Prior occurrence: yes, remote EGD and colonoscopy 2016 [facility]. EGD showed normal esophagus erythematous mucosa in the antrum. Normal duodenum. Colonoscopy was normal. Negative pathology for both. States feeling numb. She reports ports seeing counselor at [facility]. Review of Systems Gastrointestinal: Positive for abdominal pain and nausea. Psychiatric/Behavioral: Positive for dysphoric mood. Objective BP 92/59 Pulse 80 Resp 16 Wt 65 kg (143 lb 4.8 oz) LMP 05/16/2015 BMI 27.99 kg/m? Physical Exam Vitals and nursing note reviewed. Constitutional: Appearance: Normal appearance. HENT: Head: Normocephalic and atraumatic. Eyes: Conjunctiva/sclera: Conjunctivae normal. Cardiovascular: Rate and Rhythm: Normal rate. Pulses: Dorsalis pedis pulses are 2+ on the left side. Pulmonary: Effort: Pulmonary effort is normal. Feet: Left foot: Skin integrity: Skin integrity [...] chest only. Tessalon [Benzonata* Rash Medication estradiol (CLIMARA) 0.05 mg/24 hr patch apply 1 patch topically once a week testosterone 1.62 % (20.25 mg/1.25 gram) glpk Apply as directed. albuterol HFA (VENTOLIN HFA) 90 mcg/actuation inhaler INHALE TWO PUFFS BY MOUTH EVERY 6 HOURS NEEDED FOR WHEEZING OR SHORTNESS OF BREATH ondansetron orally disintegrating (ZOFRAN ODT) 4 mg disintegrating tablet Take 1 tablet by mouth every 6 hours as needed for nausea/vomiting. omeprazole (PRILOSEC) 20 mg capsule Take 1 capsule by mouth daily before breakfast. EPINEPHrine (EPIPEN) 0.3 mg/0.3 mL auto-injector GIVE ONE DOSE INTO LATERAL THIGH FOR ALLERGIC REACTION. REPEAT DOSE IN 5-15 MINUTES IF NOT IMPROVING PARoxetine (PAXIL) 10 mg tablet Take 1 tablet by mouth once daily. For hot flashes (Patient not taking: Reported on 12/23/2024) PAST MEDICAL HISTORY Diagnosis Date Abnormal mammogram [...] History Tobacco Use Smoking status: Every Day Current packs/day: 1.00 Average packs/day: 1 pack/day for 32.2 years (32.2 ttl pk-yrs) Types: Cigarettes Start date: 10/26/1992 Smokeless tobacco: Never Tobacco comments: started age 17 Vaping Use Vaping status: Never Used Substance Use Topics Alcohol use: No Drug use: Not Currently Types: Marijuana ASSESSMENT/PLAN: 1. Situational depression - ICD9: 309.0, ICD10: F43.21 (primary diagnosis) Recommend resuming paroxetine - PAROXETINE 10 MG TABLET 2. Nausea and vomiting, unspecified vomiting type - ICD9: 787.01, ICD10: R11.2 Recommend daily PPI, sucralfate and as needed Zofran. 3. Hot flashes - ICD9: 782.62, ICD10: R23.2 Using estrogen and testosterone patches from her E SHIRRING MACHINE OPERATOR, paroxetine was discontinued 4. Epigastric pain - ICD9: 789.06, ICD10: R10.13 Recommend omeprazole 40 mg daily, sucralfate x 2 weeks, may repeat x 1 if needed. Mild diet. - OMEPRAZOLE 40 MG CAPSULE,DELAYED RELEASE - SUCRALFATE 100 MG/ML ORAL SUSPENSION 5. Gastroesophageal reflux disease, unspecified whether esophagitis present - ICD9: 530.81, ICD10: K21.9 - Endorse lifestyle modifications including losing weight, limiting caffeine, no meals three hours before sleep, and head of bed elevation. Avoid NSAIDS - OMEPRAZOLE 40 MG CAPSULE,DELAYED RELEASE - ONDANSETRON 4 MG DISINTEGRATING TABLET - CONSULT TO GENERAL SURGERY - SUCRALFATE 100 MG/ML ORAL SUSPENSION 6. Uncomplicated asthma, unspecified asthma severity, unspecified whether persistent - ICD9: 493.90, ICD10: J45.909 - ALBUTEROL SULFATE HFA 90 MCG/ACTUATION AEROSOL INHALER German Pires APRN.ROTARY SWAGING MACHINE OPERATOR Medical Decision Making: Problems: Moderate: 1+ chronic illnesses with change Risk: Moderate: Drug management Medical Decision Making Level: 4 - Moderate Allergies As of Date: 12/23/2024 Noted Allergy Reaction BEES 06/23/2011 10 - [...] (BENZONATATE) 11/03/2017 2 - Rash Date Reviewed: 12/23/2024 Reviewed by: Em Khanna LPN - Fully Assessed Reason for Visit: decreased appetite [Other] Abdominal Pain [1] Cmt: upper abdominal pain Primary Visit Diagnosis:Situational depression [F43.21] Other Visit Diagnoses:Nausea and vomiting, unspecified vomiting type [R11.2] Hot flashes [R23.2] Epigastric pain [R10.13] Gastroesophageal reflux disease, unspecified whether esophagitis present [K21.9] Uncomplicated asthma, unspecified asthma severity, unspecified whether persistent [J45.909] Order(s):omeprazole (PRILOSEC) 40 mg capsuleTake 1 capsule by mouth once daily.Disp: 30 capsuleRfl: 2 ondansetron orally disintegrating (ZOFRAN ODT) 4 mg disintegrating tabletTake 1 tablet by mouth every 6 hours as needed for nausea/vomiting.Disp: 20 tabletRfl: 0 CONSULT TO GENERAL SURGERY [9011] Order #: [id number]: 1 FUTURE PARoxetine (PAXIL) 10 mg tabletTake 1 tablet by mouth once daily. For hot flashesDisp: 30 tabletRfl: 11 sucralfate (CARAFATE) 100 mg/mL suspensionTake 10 mL by mouth before meals and at bedtime for 14 days. (560cc=2wks)Disp: 560 mLRfl: 1 albuterol HFA (VENTOLIN HFA) 90 mcg/actuation inhalerINHALE TWO PUFFS BY MOUTH EVERY 6 HOURS NEEDED FOR WHEEZING OR SHORTNESS OF BREATHDisp: 18 gRfl: 2 Prescriptions as of 12/23/2024 - omeprazole (PRILOSEC) 40 mg capsule Take 1 capsule by mouth once daily. - ondansetron orally disintegrating (ZOFRAN ODT) 4 mg disintegrating tablet Take 1 tablet by mouth every 6 hours as needed for nausea/vomiting. - estradiol (CLIMARA) 0.05 mg/24 hr patch apply 1 patch topically once a week - testosterone 1.62 % (20.25 mg/1.25 gram) glpk Apply as directed. - PARoxetine (PAXIL) 10 mg tablet Take 1 tablet by mouth once daily. For hot flashes - sucralfate (CARAFATE) 100 mg/mL suspension Take 10 mL by mouth before meals and at bedtime for 14 days. (560cc=2wks) - albuterol HFA (VENTOLIN HFA) 90 mcg/actuation inhaler INHALE TWO PUFFS BY MOUTH EVERY 6 HOURS NEEDED FOR WHEEZING OR SHORTNESS OF BREATH - EPINEPHrine (EPIPEN) 0.3 mg/0.3 mL auto-injector GIVE ONE DOSE INTO LATERAL THIGH FOR ALLERGIC REACTION. REPEAT DOSE IN 5-15 MINUTES IF NOT IMPROVING Meds Comments as of 12/05/2022: Problem List As Of Date 12/23/2024 Noted Resolved Bipolar disorder, unspecified (HCC) [F31.9] 07/26/2006 09/01/2020 Asthma [J45.909] 07/26/2006 ESOPHAGEAL REFLUX [K21.9] 08/23/2006 Pruritus of genital organs [L29.3] 11/21/2006 01/03/2011 TOBACCO USE DISORDER [F17.200] 12/25/2006 Lumbago [M54.50] 03/09/2008 04/18/2018 Dysuria [R30.0] 05/21/2009 01/03/2011 Abdominal pain, generalized [R10.84] 10/05/2009 01/03/2011 Abdominal pain, epigastric [R10.13] 10/26/2009 03/15/2012 Disturbance of skin sensation [R20.9] 01/21/2010 01/03/2011 Cervicalgia [M54.2] 01/21/2010 01/03/2011 Abdominal pain, right upper quadrant [R10.11] 07/11/2011 03/15/2012 Gastritis/duodenitis [K29.70, K29.90] 07/21/2011 03/15/2012 Acute gastritis without mention of hemorrhage [*07/21/2011 03/15/2012 Irritable bowel syndrome [K58.9] 03/15/2012 09/01/2020 Abdominal pain, chronic, generalized [R10.84, G*07/04/2013 04/18/2018 ASCUS (atypical squamous cells of undetermined *09/24/2013 04/18/2018 Myofascial pain [M79.18] 11/07/2013 04/18/2018 Pain of left thumb [M79.645] 01/20/2015 04/18/2018 Raynaud's phenomenon without gangrene [I73.00] 02/01/2017 12/14/2019 Mixed stress and urge urinary incontinence [N39*12/13/2019 09/08/2021 Thoracic outlet syndrome [G54.0] 06/14/2020 03/12/2023 TOS (thoracic outlet syndrome) [G54.0] 10/18/2021 05/23/2022 Anxiety with depression [F41.8] 05/23/2022 Overactive bladder [N32.81] 07/28/2022 Pain of left shoulder region [M25.512] 12/28/2022 Non-adherence to medical treatment [Z91.199] 03/12/2023 Prescriptions ordered this encounter Disp Refills Start End OMEPRAZOLE 40 MG CAPSULE,DELAYED REL* 30 c* 2 12/23/2024 03/23/2025 Route: ORAL Sig: Take 1 capsule by mouth once daily. ONDANSETRON 4 MG DISINTEGRATING TABL* 20 t* 0 12/23/2024 Route: ORAL Sig: Take 1 tablet by mouth every 6 hours as needed for nausea/vomiting. PAROXETINE 10 MG TABLET 30 t* 11 12/23/2024 Route: ORAL Sig: Take 1 tablet by mouth once daily. For hot flashes SUCRALFATE 100 MG/ML ORAL SUSPENSION 560 * 1 12/23/2024 01/06/2025 Route: ORAL Sig: Take 10 mL by mouth before meals and at bedtime for 14 days. (560cc=2wks) ALBUTEROL SULFATE HFA 90 MCG/ACTUATI* 18 g 2 12/23/2024 Cmt: Generic or brand: dispense inhaler preferred by patient/insurance unless EUGENIA flag is selected. Sig: INHALE TWO PUFFS BY MOUTH EVERY 6 HOURS NEEDED FOR WHEEZING OR SHORTNESS OF BREATH Medications Discontinued During This Encounter Prescriptions - ibuprofen (MOTRIN) 800 mg tablet (Discontinued) Take 1 tablet by mouth every 8 hours as needed for pain or fever (specify temp.) (take with food). - conj estrogens-bazedoxifene 0.45-20 mg (Discontinued) once daily. - ondansetron orally disintegrating (ZOFRAN ODT) 4 mg disintegrating tablet (Discontinued) Take 1 tablet by mouth every 6 hours as needed for nausea/vomiting. - omeprazole (PRILOSEC) 20 mg capsule (Discontinued) Take 1 capsule by mouth daily before breakfast. - PARoxetine (PAXIL) 10 mg tablet (Discontinued) Reported on 12/23/2024 - albuterol HFA (VENTOLIN HFA) 90 mcg/actuation inhaler (Discontinued) INHALE TWO PUFFS BY MOUTH EVERY 6 HOURS NEEDED FOR WHEEZING OR SHORTNESS OF BREATH Level of Service: OFFICE/OUTPATIENT ESTABLISHED MOD MDM 30 MIN [25290] Additional E/M codes: VISIT CPLX INHERENT EANDM ASSOC WITH MED * Follow-up and Disposition History for Encounter Date Provider Department Center 12/23/2024 [id number] PIRES [facility] Encounter Status:Closed by GERMAN PIRES on 12/23/24 BACTERIA UR CULT Observed: 10/20/2024 8:06 PM Status: F Source: [facility] ORGANISM ID: 1 10,000 -<50,000 CFU/ml Mixed microbiota No further workup. Mixed microbiota can be due to???urine???contamination with skin bacteria at time of collection or presence of a long-term urinary catheter. If a new culture is needed, please consider re-education of the patient on proper midstream collection technique or straight catheterization for???urine???collection. Performed By: #### [id number] ### # [facility] CLIA [id number] [address] [place], [place] [address] [address] [place] Observed: 10/20/2024 7:55 PM Status: COMPLETED Source: [facility] HNO ID: [id number] Author: YASSINE RADFORD MD Service: ? Author Type: Physician Type: Progress Notes Filed: 10/21/2024 08:30 Note Text: This note was created using [employer]. Subjective Patient presents with: UTI Anne Chung is a 38 year old female, concerned about bladder or kidney infection. She started having dysuria, frequency, urgency 5 days ago with low back pain. She was hydrating well and denied recent febrile illness. She had no fever, chills, or sweats. She denied vaginal discharge. She was scheduled to see her medical office receptionist assistant next week (Dr. Cunningham). Review of Systems Constitutional: Negative for chills, diaphoresis and fever. HENT: Negative. Respiratory: Negative. Gastrointestinal: Negative for nausea and vomiting. ACTIVE PROBLEM LIST Asthma Esophageal Reflux Tobacco Use Disorder Anxiety With Depression Overactive Bladder Pain of Left Shoulder Region Non-Adherence to Medical Treatment Social History Tobacco Use Smoking status: Every Day Current packs/day: 1.00 Average packs/day: 1 pack/day for 32.0 years (32.0 ttl pk-yrs) Types: Cigarettes Start date: 10/26/1992 Smokeless tobacco: Never Tobacco comments: started age 17 Vaping Use Vaping status: Never Used Substance Use Topics Alcohol use: No Drug use: Not Currently Types: Marijuana Current Outpatient Medications Medication Sig albuterol HFA (VENTOLIN HFA) 90 mcg/actuation inhaler INHALE TWO PUFFS BY MOUTH EVERY 6 HOURS NEEDED FOR WHEEZING OR SHORTNESS OF BREATH ondansetron orally disintegrating (ZOFRAN ODT) 4 mg disintegrating tablet Take 1 tablet by mouth every 6 hours as needed for nausea/vomiting. omeprazole (PRILOSEC) 20 mg capsule Take 1 capsule by mouth daily before breakfast. PARoxetine (PAXIL) 10 mg tablet Take 1 tablet by mouth once daily. For hot flashes ibuprofen (MOTRIN) 800 mg tablet Take 1 tablet by mouth every 8 hours as needed for pain or fever (specify temp.) (take with food). EPINEPHrine (EPIPEN) 0.3 mg/0.3 mL auto-injector GIVE ONE DOSE INTO LATERAL THIGH FOR ALLERGIC REACTION. REPEAT DOSE IN 5-15 MINUTES IF NOT IMPROVING conj estrogens-bazedoxifene 0.45-20 mg once daily. estradiol (ESTRACE) 2 mg tablet once daily. (Patient not taking: Reported on 10/20/2024) No current facility-administered medications for this visit. Objective BP 112/70 (BP Site: Left Arm, BP Position: Sitting, BP Cuff Size: Large Adult) Pulse 68 Temp 36.4 ?C (97.6 ?F) (Temporal) Resp 18 Wt 68.1 kg (150 lb 2.1 oz) LMP 05/16/2015 BMI 29.32 kg/m? Physical Exam Constitutional: General: She is not in acute distress. Appearance: She is not diaphoretic. Cardiovascular: Heart sounds: Normal heart sounds. Pulmonary: Breath sounds: Normal breath sounds. Abdominal: Palpations: Abdomen is soft. Tenderness: There is abdominal tenderness in the suprapubic area. There is no right CVA tenderness, left CVA tenderness, guarding or rebound. Musculoskeletal: Lumbar back: No tenderness. Neurological: Mental Status: She is alert. Gait: Gait normal. Latest Ref Rng 10/20/2024 GLUCOSE UA (POCT) Negative mg/dL Negative BILIRUBIN UA (POCT) Negative Small ! KETONE UA (POCT) Negative mg/dL Trace SPECIFIC GRAVITY UA (POCT) 1.005 - 1.030 >=1.030 HEMOGLOBIN/BLOOD UA (POCT) Negative Negative PH UA (POCT) 4.5 - 8.0 6.0 PROTEIN UA (POCT) Negative mg/dL 100 ! UROBILINOGEN UA (POCT) Normal E.U./dL 0.2 NITRITE UA (POCT) Negative Negative LEUKOCYTES UA (POCT) Negative Negative COLOR UA (POCT) Dark yellow CLARITY UA (POCT) Clear Legend: ! Abnormal Assessment and Plan 1. Dysuria - ICD9: 788.1, ICD10: R30.0 (primary diagnosis) acute Shared medical decision making was done. UA more consistent with dehydration but with her symptoms, we will send for culture and treat if appropriate. If culture is not consistent, she will see medical office receptionist assistant as scheduled. Hydration stressed. We agreed to urinary analgesic. Discussed medication dosage, usage, goals of therapy, and side effects including urine discoloration. - Send urine for culture - UA DIP, URINE (POC) - URINE CULTURE - PHENAZOPYRIDINE 200 MG TABLET 2. Urinary frequency - ICD9: 788.41, ICD10: R35.0 acute - UA DIP, URINE (POC) - URINE CULTURE - PHENAZOPYRIDINE 200 MG TABLET Yassine Radford MD CNOV Observed: 10/20/2024 7:40 PM Status: COMPLETED Source: [facility] Office Visit (INTMWS) ANNE CHUNG ([id number]) 1985 F Date Time Provider Department 10/20/24 7:40 PM YASSINE RADFORD INTMWS During your visit today, we recorded the following information about you: Temperature Pulse Respiration Blood pressure 97.6 degrees 68/minute 18/minute 112/70 Weight 68.1 kg Yassine Radford MD 10/21/2024 8:30 AM Signed This note was created using [employer]. Subjective Patient presents with: UTI Anne Chung is a 38 year old female, concerned about bladder or kidney infection. She started having dysuria, frequency, urgency 5 days ago with low back pain. She was hydrating well and denied recent febrile illness. She had no fever, chills, or sweats. She denied vaginal discharge. She was scheduled to see her medical office receptionist assistant next week (Dr. Cunningham). Review of Systems Constitutional: Negative for chills, diaphoresis and fever. HENT: Negative. Respiratory: Negative. Gastrointestinal: Negative for nausea and vomiting. ACTIVE PROBLEM LIST Asthma Esophageal Reflux Tobacco Use Disorder Anxiety With Depression Overactive Bladder Pain of Left Shoulder Region Non-Adherence to Medical Treatment Social History Tobacco Use Smoking status: Every Day Current packs/day: 1.00 Average packs/day: 1 pack/day for 32.0 years (32.0 ttl pk-yrs) Types: Cigarettes Start date: 10/26/1992 Smokeless tobacco: Never Tobacco comments: started age 17 Vaping Use Vaping status: Never Used Substance Use Topics Alcohol use: No Drug use: Not Currently Types: Marijuana Current Outpatient Medications Medication Sig albuterol HFA (VENTOLIN HFA) 90 mcg/actuation inhaler INHALE TWO PUFFS BY MOUTH EVERY 6 HOURS NEEDED FOR WHEEZING OR SHORTNESS OF BREATH ondansetron orally disintegrating (ZOFRAN ODT) 4 mg disintegrating tablet Take 1 tablet by mouth every 6 hours as needed for nausea/vomiting. omeprazole (PRILOSEC) 20 mg capsule Take 1 capsule by mouth daily before breakfast. PARoxetine (PAXIL) 10 mg tablet Take 1 tablet by mouth once daily. For hot flashes ibuprofen (MOTRIN) 800 mg tablet Take 1 tablet by mouth every 8 hours as needed for pain or fever (specify temp.) (take with food). EPINEPHrine (EPIPEN) 0.3 mg/0.3 mL auto-injector GIVE ONE DOSE INTO LATERAL THIGH FOR ALLERGIC REACTION. REPEAT DOSE IN 5-15 MINUTES IF NOT IMPROVING conj estrogens-bazedoxifene 0.45-20 mg once daily. estradiol (ESTRACE) 2 mg tablet once daily. (Patient not taking: Reported on 10/20/2024) No current facility-administered medications for this visit. Objective BP 112/70 (BP Site: Left Arm, BP Position: Sitting, BP Cuff Size: Large Adult) Pulse 68 Temp 36.4 ?C (97.6 ?F) (Temporal) Resp 18 Wt 68.1 kg (150 lb 2.1 oz) LMP 05/16/2015 BMI 29.32 kg/m? Physical Exam Constitutional: General: She is not in acute distress. Appearance: She is not diaphoretic. Cardiovascular: Heart sounds: Normal heart sounds. Pulmonary: Breath sounds: Normal breath sounds. Abdominal: Palpations: Abdomen is soft. Tenderness: There is abdominal tenderness in the suprapubic area. There is no right CVA tenderness, left CVA tenderness, guarding or rebound. Musculoskeletal: Lumbar back: No tenderness. Neurological: Mental Status: She is alert. Gait: Gait normal. Latest Ref Rng 10/20/2024 GLUCOSE UA (POCT) Negative mg/dL Negative BILIRUBIN UA (POCT) Negative Small ! KETONE UA (POCT) Negative mg/dL Trace SPECIFIC GRAVITY UA (POCT) 1.005 - 1.030 >=1.030 HEMOGLOBIN/BLOOD UA (POCT) Negative Negative PH UA (POCT) 4.5 - 8.0 6.0 PROTEIN UA (POCT) Negative mg/dL 100 ! UROBILINOGEN UA (POCT) Normal E.U./dL 0.2 NITRITE UA (POCT) Negative Negative LEUKOCYTES UA (POCT) Negative Negative COLOR UA (POCT) Dark yellow CLARITY UA (POCT) Clear Legend: ! Abnormal Assessment and Plan 1. Dysuria - ICD9: 788.1, ICD10: R30.0 (primary diagnosis) acute Shared medical decision making was done. UA more consistent with dehydration but with her symptoms, we will send for culture and treat if appropriate. If culture is not consistent, she will see medical office receptionist assistant as scheduled. Hydration stressed. We agreed to urinary analgesic. Discussed medication dosage, usage, goals of therapy, and side effects including urine discoloration. - Send urine for culture - UA DIP, URINE (POC) - URINE CULTURE - PHENAZOPYRIDINE 200 MG TABLET 2. Urinary frequency - ICD9: 788.41, ICD10: R35.0 acute - UA DIP, URINE (POC) - URINE CULTURE - PHENAZOPYRIDINE 200 MG TABLET Yassine Radford MD Allergies As of Date: 10/20/2024 Noted Allergy Reaction BEES 06/23/2011 10 - [...] (BENZONATATE) 11/03/2017 2 - Rash Date Reviewed: 10/20/2024 Reviewed by: Leticia Persaud LPN - Fully Assessed Reason for Visit: UTI [116] Primary Visit Diagnosis:Dysuria [R30.0] Other Visit Diagnosis:Urinary frequency [R35.0] Order(s):UA DIP, URINE (POC) [[id number]] Order #: [id number]. #:[id number] URINE CULTURE [[facility]] Order #: [id number]. #:[id number] phenazopyridine (PYRIDIUM) 200 mg tabletTake 1 tablet by mouth three times a day as needed for up to 2 days.Disp: 6 tabletRfl: 0 Prescriptions as of 10/21/2024 - phenazopyridine (PYRIDIUM) 200 mg tablet Take 1 tablet by mouth three times a day as needed for up to 2 days. - albuterol HFA (VENTOLIN HFA) 90 mcg/actuation inhaler INHALE TWO PUFFS BY MOUTH EVERY 6 HOURS NEEDED FOR WHEEZING OR SHORTNESS OF BREATH - ondansetron orally disintegrating (ZOFRAN ODT) 4 mg disintegrating tablet Take 1 tablet by mouth every 6 hours as needed for nausea/vomiting. - omeprazole (PRILOSEC) 20 mg capsule Take 1 capsule by mouth daily before breakfast. - PARoxetine (PAXIL) 10 mg tablet Take 1 tablet by mouth once daily. For hot flashes - ibuprofen (MOTRIN) 800 mg tablet Take 1 tablet by mouth every 8 hours as needed for pain or fever (specify temp.) (take with food). - EPINEPHrine (EPIPEN) 0.3 mg/0.3 mL auto-injector GIVE ONE DOSE INTO LATERAL THIGH FOR ALLERGIC REACTION. REPEAT DOSE IN 5-15 MINUTES IF NOT IMPROVING - conj estrogens-bazedoxifene 0.45-20 mg once daily. Meds Comments as of 12/05/2022: Problem List As Of Date 10/20/2024 Noted Resolved Bipolar disorder, unspecified (HCC) [F31.9] 07/26/2006 09/01/2020 Asthma [J45.909] 07/26/2006 ESOPHAGEAL REFLUX [K21.9] 08/23/2006 Pruritus of genital organs [L29.3] 11/21/2006 01/03/2011 TOBACCO USE DISORDER [F17.200] 12/25/2006 Lumbago [M54.50] 03/09/2008 04/18/2018 Dysuria [R30.0] 05/21/2009 01/03/2011 Abdominal pain, generalized [R10.84] 10/05/2009 01/03/2011 Abdominal pain, epigastric [R10.13] 10/26/2009 03/15/2012 Disturbance of skin sensation [R20.9] 01/21/2010 01/03/2011 Cervicalgia [M54.2] 01/21/2010 01/03/2011 Abdominal pain, right upper quadrant [R10.11] 07/11/2011 03/15/2012 Gastritis/duodenitis [K29.70, K29.90] 07/21/2011 03/15/2012 Acute gastritis without mention of hemorrhage [*07/21/2011 03/15/2012 Irritable bowel syndrome [K58.9] 03/15/2012 09/01/2020 Abdominal pain, chronic, generalized [R10.84, G*07/04/2013 04/18/2018 ASCUS (atypical squamous cells of undetermined *09/24/2013 04/18/2018 Myofascial pain [M79.18] 11/07/2013 04/18/2018 Pain of left thumb [M79.645] 01/20/2015 04/18/2018 Raynaud's phenomenon without gangrene [I73.00] 02/01/2017 12/14/2019 Mixed stress and urge urinary incontinence [N39*12/13/2019 09/08/2021 Thoracic outlet syndrome [G54.0] 06/14/2020 03/12/2023 TOS (thoracic outlet syndrome) [G54.0] 10/18/2021 05/23/2022 Anxiety with depression [F41.8] 05/23/2022 Overactive bladder [N32.81] 07/28/2022 Pain of left shoulder region [M25.512] 12/28/2022 Non-adherence to medical treatment [Z91.199] 03/12/2023 Prescriptions ordered this encounter Disp Refills Start End PHENAZOPYRIDINE 200 MG TABLET 6 ta* 0 10/20/2024 10/22/2024 Route: ORAL Sig: Take 1 tablet by mouth three times a day as needed for up to 2 days. Medications Discontinued During This Encounter Prescriptions - estradiol (ESTRACE) 2 mg tablet (Discontinued) Reported on 10/20/2024 Disposition: Return if symptoms worsen or fail to improve. Follow-up and Disposition History for Encounter Date Provider Department Center 10/20/2024 YASSINE SALINAS [facility] Encounter Status:Closed by YASSINE RADFORD on 10/21/24 ALLERGIES DATE TYPE / CODE NAME / CODE REACTION SEVERITY SOURCE 02/23/2025 DRUG INGREDI/006953 003(SNOMED CT) GUAIFENESIN RASH [facility] 02/16/2025 DRUG/[id number] (SNOMED CT) CODEINE[facility]ESIN [facility]/03/2017 DRUG INGREDI/728655 003(SNOMED CT) BENZONATATE RASH Low [facility] 08/03/2015 DRUG INGREDI/080872 003(SNOMED CT) DIAZEPAM HIVES [facility] 11/10/2014 DRUG INGREDI/664091 003(SNOMED CT) MORPHINE RASH [facility] 06/23/2011 Environ/866485 006(SNOMED CT) BEES ANAPHYLAXIS High [facility] 02/14/2011 Drug Class/83516735 3(SNOMED CT) PENICILLINS OTHER: SEE C [facility] ENCOUNTERS ADMIT/DISCHARGE ACCOUNT NUMBER ADMITTING ENCOUNTER CLASS LOCATION SOURCE 08/03/2025 [id number] Ambulatory [facility] [facility] 08/03/2025/08/03/20 [id number] Ambulatory [facility] HospitalBuil ding:JOSSELINE [facility] 07/28/2025/07/28/20 [id number] Ambulatory [facility] Hospital[facility]il ding:[place] [facility] 07/28/2025 [id number] Ambulatory [facility] Hospital[facility] ding:JOSSELINE [facility] 07/03/2025/07/03/20 [id number] Ambulatory [facility] HospitalBuil ding:JESUS [facility] 04/24/2025/04/24/20 [id number] Ambulatory [facility] HospitalBuil ding:[place] [facility] 03/16/2025/03/20/[id number] [facility] MAINBuilding :[facility] 03/02/2025/03/02/20 [id number] Ambulatory [facility] HospitalBuil ding:JESUS [facility] 02/23/2025/02/24/20 [id number] Ambulatory [facility] Hospital[facility]il ding:[place] [facility] 02/23/2025/02/24/20 [id number] Ambulatory [facility] HospitalBuil ding:JESUS [facility] 02/17/2025/02/21/20 [id number] SAMIR STUDENT CAREER DEVELOPMENT SPECIALIST-CAPACITOR REPAIRER, MELISSA Inpatient Encounter [facility] MAINBuilding :MSURRoom: 0238Bed: A [facility] 02/16/2025/02/17/20 [id number] Ambulatory [facility] HospitalBuil ding:JESUS [facility] 02/13/2025/02/14/20 [id number] Ambulatory [facility] HospitalBuil ding:JESUS [facility] 01/29/2025/01/30/20 [id number] GERTRUDE HENRY [facility]LDORRoo m: POOLBed: [facility] 01/27/2025/01/28/20 [id number] Ambulatory [facility] HospitalBuil ding:JESUS [facility] 01/26/2025/01/27/20 [id number] Ambulatory [facility] HospitalBuil ding:JESUS [facility] 01/22/2025/01/22/20 [id number] Ambulatory [facility] HospitalBuil ding:[place] [facility] 01/22/2025/01/22/20 [id number] Ambulatory [facility] HospitalBuil ding:RAMIRO [facility] 01/20/2025/01/20/20 [id number] Ambulatory [facility] HospitalBuil ding:JESUS [facility] 01/15/2025/01/15/20 [id number] Emergency [facility] MAINBuilding :[facility] 01/08/2025/01/08/20 [id number] Ambulatory [facility] HospitalBuil ding:ELBA [facility] 12/23/2024/12/23/19 [id number] Ambulatory [facility] HospitalBuil ding:JESUS [facility] 10/20/2024/10/20/20 [id number] [facility] [place] [facility] PAYERS ENCOUNTER GUARANTOR PAYER SUBSCRIBER SOURCE 08/03/2025 Primary Insurance:[employer] MEDICAIDPolicy Number: [id number] Date:1873-31-79Epho Name:Justin CHENGB: [id number] [facility] [place] [address] [place] [id number] [place] [address] 08/03/2025 [facility] MED[facility]Policy Number: [id number] Date:4502-77-61Xzud Name:Justin WHITESIDE: [id number] [facility] [place] [address] [place] [id number] [place] [address] 07/28/2025 Primary Insurance:[facility] MEDICAIDPolicy Number: [id number] Date:1012-23-32Ypuw Name:Justin CHENGB: [id number] [facility] [place] [address] [place] [id number] [place] [address] 07/28/2025 Primary Insurance:[facility] MEDICAIDPolicy Number: [id number] Date:7901-84-67Zxsw Name:Justin WHITESIDE: [id number] [facility] [place] [address] [place] [id number] [place] [address] 07/03/2025 Primary Insurance:[employer] MEDICAIDPolicy Number: [id number] Date:5284-41-13Wtky Name:Justin CHENGB: [id number] [facility] [place] [address] [place] [id number] [place] [address] 04/24/2025 Primary Insurance:[employer] MEDICAIDPolicy Number: [id number] Date:3002-05-78Nicb Name:Justin CHENGBrijesh: [id number] [facility] [place] [address] [place] [id number] [place] [address] 03/16/2025 ANNE Lewis STEVO: [id number] [facility] [place] [address] [place] [id number]~abbie mTel: (HP) Primary Insurance:[employer] INSCOPolicy Number: [id number] Date:8534-06-13Mict Name:DEBORA White [address] [place] [id number]: ANNE L STEVO: [id number] [facility] [address] [place] [phone]: (HP) () [facility] 03/02/2025 Primary [facility] MEDICAIDPolicy Number: [id number] Date:0071-28-08Wgid Name:Justin CHENGBrijesh: [id number] [facility] [address] [place] [id number] [place] [address] 02/23/2025 Primary Insurance:[employer] MEDICAIDPolicy Number: [id number] Date:6043-14-43Kvcr Name:Justin Lewis SHELDONBrijesh: [id number] [facility] [address] [place] [address] 02/23/2025 Primary Insurance:[employer] MEDICAIDPolicy Number: [id number] Date:0295-97-25Imby Name:Justin CHENGBrijesh: [id number] [facility] [address] [place] [phone] [place] [address] 02/17/2025 ANNE Lewis SKYLARB: LONG CAL[facility] [address] [place] [phone]~abbie mTel: (HP) Primary Insurance:[employer] INSCOPolicy Number: [id number] Date:8502-78-83Nkkd Name:[place] [address]DM: ANNE CHENGB: [id number] [facility] [address] [place] [phone]: () () [facility] 02/16/2025 Primary Insurance:[employer] MEDICAIDPolicy Number: [id number] Date:4992-22-10Zvqz Name:Justin WHITESIDE: [id number] [facility] [address] [place] [id number] [place] [address] 02/13/2025 Primary Insurance[facility] MEDICAIDPolicy Number: [id number] Date:5916-36-92Nqis Name:Justin WHITESIDE: [id number] [facility] [address] [place] [phone] [place] [address] 01/29/2025 Primary Insurance:[facility] MEDICAIDPolicy Number: [id number] Date:2758-68-19Sudi Name:Justin WHITESIDE: [id number] [facility] [address] [place] [id number] [place] [address] 01/27/2025 Primary Insurance:[employer] MEDICAIDPolicy Number: [id number] Date:6462-45-44Xmdp Name:Justin WHITESIDE: [id number] [facility] [address] [place] [phone] [place] [address] 01/26/2025 Primary Insurance:[employer] MEDICAIDPolicy Number: [id number] Date:5490-70-31Taqd Name:Justin WHITESIDE: [id number] [facility] [address] [place] [phone] [place] [address] 01/22/2025 Primary Insurance:[employer] MEDICAIDPolicy Number: [id number] Date:0536-35-65Awgn Name:Justin WHITESIDE: [id number] [facility] [address] [place] [phone] [place] [address] 01/20/2025 Primary Insurance:[employer] MEDICAIDPolicy Number: [id number] Date:9494-21-48Iadu Name:Justin WHITESIDE: [id number] [facility] [address] [place] [phone] [place] [address] 01/15/2025 ANNE CHENGB: [facility] [address] [place] [phone]~abbie [email or web address]: () Primary Insurance:[employer] INSCOPolicy Number: [id number] Date:2901-60-71Nitt Name:DEBORA White [address] [place] [phone]: ANNE CHENGB: [id number] [facility] [address] [place] [phone]: (HP) () [facility] 01/08/2025 Primary Insurance:[employer] MEDICAIDPolicy Number: [id number] Date:2812-43-69Ggdg Name:Justin WHITESIDE: [id number] [facility] [address] [place] [phone] [place] [address] 12/23/2024 Primary Insurance:[employer] MEDICAIDPolicy Number: [id number] Date:8834-71-65Dfhc Name:Justin WHITESIDE: [id number] [facility] [address] [place] [phone] [place] [address] 10/20/2024 Primary Insurance:[employer] MEDICAIDPolicy Number: [id number] Date:1415-55-37Phkd Name:Justin CHENGB: [id number] [facility] [address] [place] [address] [facility]
[2025-08-23 13:11] VITALS: BP 104/70; PULSE 80; RESP 12; TEMP 36.7; O2SAT 97; BMI 25.9
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
== END 2025-08-23 14:26 | disposition home or self-care (01) ==
PROVIDERS: Emergency Provider Surgery; PCP Internal Medicine; Visit Provider Surgery
DX: M25.511 Pain in right shoulder (principal); F17.210 Nicotine dependence, cigarettes, uncomplicated
CPT/HCPCS: 99282

== ENCOUNTER 2025-09-12 09:57 | Emergency (ER) | payer MEDICAID, SELFPAY ==
[2025-09-12 09:59] VITALS: BP 115/71; PULSE 68; RESP 18; TEMP 36.4; O2SAT 100; BMI 25.9
--- OUTSIDE RECORDS SUMMARY | 2025-09-12 10:13 | XMS RPT_ITS | CCD ---
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 ANEU, BMP, MG #### [place] [phone] WBC 11.9 10 3/mcL High 4.5-10.8 [facility] Comment on above: Performed By: #### G FR, CBC, ADIFF, ANEU, BMP, MG #### [place] [address] LACon 02-18-2025 Lactic Acid Lvl 1.2 mmol/L Normal 0.4-2.0 [facility] Comment on above: Performed By: #### L AC #### [address] [address] MGon 02-18-2025 Magnesium [Mass/Vol] 1.6 mg/dL Low 1.8-2.4 [facility] Comment on above: Performed By: #### C BC, ADIFF, ANEU, MDW, BMP, GFR, DIMER, TROPHS #### [address] [address] .Auto Diffon 02-17-2025 Basophil, Absolute 0.0 10 3/mcL Normal 0.0-0.2 [facility] Comment on above: Performed By: #### C BC, ADIFF, ANEU, MDW, BMP, GFR, DIMER, TROPHS #### [address] [address] Basophils/100 WBC (Bld) 0.2 % Normal 0.0-2.5 [facility] Comment on above: Performed By: #### C BC, ADIFF, ANEU, MDW, BMP, GFR, DIMER, TROPHS #### [address] [address] Eosinophil, Absolute 0.0 10 3/mcL Normal 0.0-0.7 [facility] Comment on above: Performed By: #### C BC, ADIFF, ANEU, MDW, BMP, GFR, DIMER, TROPHS #### [address] [address] Eosinophils/100 WBC (Bld) 0.0 % Normal 0.0-7.0 [facility] Comment on above: Performed By: #### C BC, ADIFF, ANEU, MDW, BMP, GFR, DIMER, TROPHS #### [address] [address] Lymphocyte, Absolute 0.6 10 3/mcL Low 0.9-4.3 [facility] Comment on above: Performed By: #### C BC, ADIFF, ANEU, MDW, BMP, GFR, DIMER, TROPHS #### [address] [address] Lymphocytes/100 WBC (Bld) 3.6 % Low 20.0-40.0 [facility] Comment on above: Performed By: #### C BC, ADIFF, ANEU, MDW, BMP, GFR, DIMER, TROPHS #### [address] [address] Monocyte, Absolute 0.8 10 3/mcL Normal 0.1-1.4 [facility] Comment on above: Performed By: #### C BC, ADIFF, ANEU, MDW, BMP, GFR, DIMER, TROPHS #### [address] [address] Monocytes/100 WBC (Bld) 5.0 % Normal 2.0-13.0 [facility] Comment on above: Performed By: #### C BC, ADIFF, ANEU, MDW, BMP, GFR, DIMER, TROPHS #### [address] [address] Neutrophils/100 WBC (Bld) 91.2 % High 50.0-75.0 [facility] Comment on above: Performed By: #### C BC, ADIFF, ANEU, MDW, BMP, GFR, DIMER, TROPHS #### [address] [address] .GFRon 02-17-2025 Estimated Glomerular Filtration Rate 77 ml/min/1.73sqm Normal [facility] Comment on above: Result Comment: Stages of Chronic Kidney Disease [...] calculate the eGFR results. Performed By: #### C BC, ADIFF, ANEU, MDW, BMP, GFR, DIMER, TROPHS #### [place] [address] .MDWon 02-17-2025 Monocyte Distribution Width 28.11 High 0.00-20.00 [facility] Comment on above: Result Comment: For adults in ED, MDW>20.0 may be associated with a higher risk of sepsis during the first 12hrs of hospital admission Performed By: #### C BC, ADIFF, ANEU, MDW, BMP, GFR, DIMER, TROPHS #### [place] [address] .NEUABSon 02-17-2025 Neutrophil, Absolute 15.2 10 3/mcL High 2.3-8.1 [facility] Comment on above: Performed By: #### C BC, ADIFF, ANEU, MDW, BMP, GFR, DIMER, TROPHS #### [place] [address] .Urinalysis Microscopic (AO) on 02-17-2025 UA Bacteria Trace Abnormal [facility] Comment on above: Performed By: #### C BC, ADIFF, ANEU, MDW, BMP, GFR, DIMER, TROPHS #### [place] [address] UA Mucous 2+ /hpf Normal [facility] Comment on above: Performed By: #### C BC, ADIFF, ANEU, MDW, BMP, GFR, DIMER, TROPHS #### [place] [address] UA RBC 0-5 Abnormal None Seen [facility] Comment on above: Performed By: #### C BC, ADIFF, ANEU, MDW, BMP, GFR, DIMER, TROPHS #### [place] [address] UA Squam Epithelial 5-10 Abnormal None Seen [facility] Comment on above: Performed By: #### C BC, ADIFF, ANEU, MDW, BMP, GFR, DIMER, TROPHS #### [place] [address] UA WBC 0-5 Abnormal None Seen [facility] Comment on above: Performed By: #### C BC, ADIFF, ANEU, MDW, BMP, GFR, DIMER, TROPHS #### [address] [address] BMPon 02-17-2025 BUN/Creatinine Ratio 9 ratio Normal 7-27 [facility] Comment on above: Performed By: #### C BC, ADIFF, ANEU, MDW, BMP, GFR, DIMER, TROPHS #### [address] [address] Calcium [Mass/Vol] 9.6 mg/dL Normal 8.4-10.2 [facility] Comment on above: Performed By: #### C BC, ADIFF, ANEU, MDW, BMP, GFR, DIMER, TROPHS #### [address] [address] Chloride [Moles/Vol] 97 mmol/L Low 98-107 [facility] Comment on above: Performed By: #### C BC, ADIFF, ANEU, MDW, BMP, GFR, DIMER, TROPHS #### [address] [address] CO2 [Moles/Vol] 25 mmol/L Normal 22-29 [facility] Comment on above: Performed By: #### C BC, ADIFF, ANEU, MDW, BMP, GFR, DIMER, TROPHS #### [address] [address] Creatinine [Mass/Vol] 0.96 mg/dL Normal 0.55-1.[address] [facility] Comment on above: Result Comment: Test ing performed on Siemens Dimension EXL analyzer using a modified kinetic Manjula technique. Performed By: #### C BC, ADIFF, ANEU, MDW, BMP, GFR, DIMER, TROPHS #### [address] [address] Electrolyte Balance 11.0 mEq/L Normal 4.0-15.0 [facility] Comment on above: Performed By: #### C BC, ADIFF, ANEU, MDW, BMP, GFR, DIMER, TROPHS #### [address] [address] Glucose [Mass/Vol] 135 mg/dL High 70-105 [facility] Comment on above: Performed By: #### C BC, ADIFF, ANEU, MDW, BMP, GFR, DIMER, TROPHS #### [address] [address] Potassium [Moles/Vol] 3.4 mmol/L Low 3.5-5.[address] [facility] Comment on above: Performed By: #### C BC, ADIFF, ANEU, MDW, BMP, GFR, DIMER, TROPHS #### [address] [address] Sodium [Moles/Vol] 133 mmol/L Low 136-145 [facility] Comment on above: Performed By: #### C BC, ADIFF, ANEU, MDW, BMP, GFR, DIMER, TROPHS #### [address] [address] Urea nitrogen [Mass/Vol] 9 mg/dL Normal 7-18 [facility] Comment on above: Performed By: #### C BC, ADIFF, ANEU, MDW, BMP, GFR, DIMER, TROPHS #### [address] [address] CBCon 02-17-2025 Erythrocyte distribution width (RBC) [Ratio] 13.3 % Normal 11.5-15.5 [facility] Comment on above: Performed By: #### C BC, ADIFF, ANEU, MDW, BMP, GFR, DIMER, TROPHS #### [address] [address] Hematocrit (Bld) [Volume fraction] 43.7 % Normal 34.0-46.0 [facility] Comment on above: Performed By: #### C BC, ADIFF, ANEU, MDW, BMP, GFR, DIMER, TROPHS #### [address] [address] Hgb 15.0 G/dL Normal 12.0-16.0 [facility] Comment on above: Performed By: #### C BC, ADIFF, ANEU, MDW, BMP, GFR, DIMER, TROPHS #### [address] [address] MCH (RBC) [Entitic mass] 32.1 pg Normal 27.0-33.0 [facility] Comment on above: Performed By: #### C BC, ADIFF, ANEU, MDW, BMP, GFR, DIMER, TROPHS #### [address] [address] MCHC 34.3 G/dL Normal 32.0-36.0 [facility] Comment on above: Performed By: #### C BC, ADIFF, ANEU, MDW, BMP, GFR, DIMER, TROPHS #### [address] [address] MCV (RBC) [Entitic vol] 93.6 fL Normal 80.0-99.0 [facility] Comment on above: Performed By: #### C BC, ADIFF, ANEU, MDW, BMP, GFR, DIMER, TROPHS #### [address] [address] Platelet 147 10 3/mcL Low 150-450 [facility] Comment on above: Performed By: #### C BC, ADIFF, ANEU, MDW, BMP, GFR, DIMER, TROPHS #### [address] [address] Platelet mean volume (Bld) [Entitic vol] 9.3 fL Normal 6.6-10.5 [facility] Comment on above: Performed By: #### C BC, ADIFF, ANEU, MDW, BMP, GFR, DIMER, TROPHS #### [address] [address] RBC 4.67 10 6/mcL Normal 4.10-5.30 [facility] Comment on above: Performed By: #### C BC, ADIFF, ANEU, MDW, BMP, GFR, DIMER, TROPHS #### [address] [address] WBC 16.6 10 3/mcL High 4.5-10.8 [facility] Comment on above: Performed By: #### C ROBY, GLADYS, JIMENEZ, W, BMP, GFR, DIMER, TROPHS #### [facility] [address] [place], [place] [address] CT ABD/PELVIS W/ IV CONTRAST ONLYon 02-17-2025 CT ABD/PELVIS W/ IV CONTRAST ONLY ORIGINAL EXAMINATION: CT OF THE ABDOMEN AND [...] Date: 02/17/2025 11:30:39 PM Ordering Provider: CONCEPCIÓN Gomez [facility] CT ANGIOGRAPHY CHEST W/CONTR Giovanni 02-17-2025 CT ANGIOGRAPHY CHEST W/CONTRAST ORIGINAL EXAMINATION: CTA OF THE CHEST 02/17/2025 [...] Date: 02/17/2025 11:28:40 PM Ordering Provider: CONCEPCIÓN Gomez [facility] DIMERon 02-17-2025 D-Dimer 721 ng/mL D-DU High 0-230 [facility] Comment on above: Result Comment: Resu lts reported in D-DU ng/mL. Positive for D-dimer. A [...] and pulmonary embolism (PE). Performed By: #### C ROBY, JIMENEZ GRAHAM MDW, BMP, GFR, DIMER, TROPHS #### [address] [address] PREGUon 02-17-2025 HCG ( test) Ql (U) Negative Normal [facility] Comment on above: Performed By: #### C ROBY, GLADYS, JIMENEZ MDW, BMP, GFR, DIMER, TROPHS #### [address] [address] test (u) int Not detected Invalid Interpretation Code [facility] Comment on above: Performed By: #### C ROBY, JIMENEZ GRAHAM, MDW, BMP, GFR, DIMER, TROPHS #### [address] [address] TROPHSon 02-17-2025 High Sensitivity Troponin I <4 Normal 0-51 [facility] Comment on above: Result Comment: High Sensitive Troponin I Reference Ranges: Female: 0-51 ng/L Male: 0-76 ng/L Testing performed on iYogi using a homogeneous sandwich chemiluminescent immunoassay based on [employer] technology. Performed By: #### C ROBY, JIMENEZ GRAHAM, W, BMP, GFR, DIMER, TROPHS #### [address] [address] UAon 02-17-2025 Color (U) Mary Normal [facility] Comment on above: Performed By: #### C ROBY, JIMENEZ GRAHAM MDW, BMP, GFR, DIMER, TROPHS #### [address] [address] Glucose (U) [Mass/Vol] Negative Normal Negative [facility] Comment on above: Performed By: #### C ROBY, GLADYS, JIMENEZ, MDW, BMP, GFR, DIMER, TROPHS #### [address] [address] Ketones Ql (U) Negative Normal Negative [facility] Comment on above: Performed By: #### C BC, ADIFF, ANEU, MDW, BMP, GFR, DIMER, TROPHS #### [address] [address] UA Appear Slightly Cloudy Abnormal Clear [facility] Comment on above: Performed By: #### C BC, ADIFF, ANEU, MDW, BMP, GFR, DIMER, TROPHS #### [address] [address] UA Blood Negative Normal Negative [facility] Comment on above: Performed By: #### C BC, ADIFF, ANEU, MDW, BMP, GFR, DIMER, TROPHS #### [address] [address] UA Leuk Est Negative Normal Negative [facility] Comment on above: Performed By: #### C BC, ADIFF, ANEU, MDW, BMP, GFR, DIMER, TROPHS #### [place] [address] UA Nitrite Negative Normal Negative [facility] Comment on above: Performed By: #### C BC, ADIFF, ANEU, MDW, BMP, GFR, DIMER, TROPHS #### [place] [address] UA pH 6.0 Normal 5.0 - 8.0 [facility] Comment on above: Performed By: #### C BC, ADIFF, ANEU, MDW, BMP, GFR, DIMER, TROPHS #### [place] [address] UA Protein >=300 Abnormal Negative [facility] Comment on above: Performed By: #### C BC, ADIFF, ANEU, MDW, BMP, GFR, DIMER, TROPHS #### [place] [address] UA Spec Grav >=1.030 Abnormal 1.015-1.02 5 [facility] Comment on above: Performed By: #### C BC, ADIFF, ANEU, MDW, BMP, GFR, DIMER, TROPHS #### [place] [address] UA Specimen Type Clean Catch Normal [facility] Comment on above: Performed By: #### C BC, GLADYS, JIMENEZ, MDW, BMP, GFR, DIMER, TROPHS #### [place] [id number] [place], [place] [address] UA Urobilinogen 1.0 E.U./dL Normal 0.2-1.0 [facility] Comment on above: Performed By: #### C ROBY, GLADYS, JIMENEZ, MDW, BMP, GFR, DIMER, TROPHS #### [place] [address] [place], [place] [address] Urobilinogen (U) [Mass/Vol] Negative Normal Negative [facility] Comment on above: Performed By: #### C BC, GLADYS, JIMENEZ, MDW, BMP, GFR, DIMER, TROPHS #### [place] [id number] [place], [place] [address] XR CHEST 1 VIEWon 02-17-2025 XR CHEST 1 VIEW ORIGINAL EXAMINATION: ONE XRAY VIEW OF THE [...] Date: 02/17/2025 10:42:17 PM Ordering Provider: CONCEPCIÓN CLEMENT [facility] CNCOon 02-16-2025 CNCO Letter Text Normal [facility] CNOVon 02-16-2025 CNOV Office Visit (INTMWS ) ANNE CHUNG ([id number]) 1985 F Date Time Provider Department 02/16/25 7:00 AM [facility] During your visit today, we recorded the following information about you: Temperature Pulse Respiration Blood pressure 99.9 degrees 98/minute 16/minute 99/61 Weight 63 kg German [employer]ires, [employer] 02/16/2025 7:43 AM Signed Subjective ?Quick Links Last Note in Specialty Snapshot Edit RFV/CC Patient ID: Anne is a 39 year old female who presents for Hospital F/U. HPI Presents for emergency department follow-up visit. She was seen at [facility] February 13, 2025 with cough shortness of [...] tenderness or frontal sinus tenderness. Mouth/Throat: Lips: [place]. Mouth: Mucous membranes are moist. Pharynx: Oropharynx [...] point to see if helpful. Continued influenza (more content not included)... Normal [facility] Absolute neutrophil countOrd ered By: Jamarcus Persaud on 02-13-2025 Neutrophils (Bld) [#/Vol] 3.2 10*3/uL 2.0-7.7 [facility] Anion gap in Serum or Plasma Ordered By: Jamarcus Persaud on 02-13-2025 Anion gap [Moles/Vol] 12 mmol/L 5-15 [facility] BUN/creatinine ratioOrdered By: Jamarcus Persaud on 02-13-2025 Urea nitrogen/Creatinine [Mass ratio] 7.8 mg/mg Low 10-20 [facility] Basic Metabolic Profile (BMP )on 02-13-2025 BUN/CRE 7.8 RATIO Low 10-20 [facility] Comment on above: Performed By: #### L 500.2500, L100.0100 #### [facility] [address] [place], [address] Calcium [Mass/Vol] 9.0 mg/dL Normal 7.6-11.0 [facility] Comment on above: Performed By: #### L 500.2500, L100.0100 #### [facility] [address] [place], [address] Chloride [Moles/Vol] 106 mmol/L Normal 98-108 [facility] Comment on above: Performed By: #### L 500.2500, L100.0100 #### [facility] [address] [place], [address] CO2 [Moles/Vol] 23.1 mmol/L Normal 21.0-32.0 [facility] Comment on above: Performed By: #### L 500.2500, L100.0100 #### [facility] [address] [place], [address] Creatinine [Mass/Vol] 0.72 mg/dL Normal 0.70-1.20 [facility] Comment on above: Performed By: #### L 500.2500, L100.0100 #### [facility] [address] [place], [address] ECRCL 86.41 ml/min Normal 50-250 [facility] Comment on above: Performed By: #### L 500.2500, L100.0100 #### [facility] [address] [place], [address] GAP 12 Normal 5-15 [facility] Comment on above: Performed By: #### L 500.2500, L100.0100 #### [facility] [address] [place], [address] GFR/1.73 sq M.predicted among non-blacks MDRD (S/P/Bld) [Vol rate/Area] 109 mL/min/{1.73_m2} Normal >60 [facility] Comment on above: Result Comment: mL/m in/1.73m2 CKD-EPI Creatinine Equation (2020) Performed By: #### L 500.2500, L100.0100 #### [facility] [address] [place], [address] Glucose [Mass/Vol] 89 mg/dL Normal 70-99 [facility] Comment on above: Performed By: #### L 500.2500, L100.0100 #### [facility] [address] [place], [address] Potassium [Moles/Vol] 3.5 mmol/L Normal 3.3-5.1 [facility] Comment on above: Performed By: #### L 500.2500, L100.0100 #### [facility] [address] [place], [address] Sodium [Moles/Vol] 140 mmol/L Normal 133-145 [facility] Comment on above: Performed By: #### L 500.2500, L100.0100 #### [facility] [address] [place], [address] Urea nitrogen [Mass/Vol] 6 mg/dL Normal 4-19 [facility] Comment on above: Performed By: #### L 500.2500, L100.0100 #### [facility] [address] [place], [address] Basophil percentageOrdered B y: Jamarcus Persaud on 02-13-2025 Basophils/100 WBC (Bld) 0.7 % 0-1 [facility] CBC W/Diff, Automatedon 01-25 Absolute Lymph 0.48 X10 3/uL Low 0.83-4.51 [facility] Comment on above: Performed By: #### L 500.2500, L100.0100 #### [facility] [address] [place], [address] Absolute Neut 3.2 X10 3/uL Normal 2.0-7.7 [facility] Comment on above: Performed By: #### L 500.2500, L100.0100 #### [facility] [address] [place], [address] Basophils/100 WBC (Bld) 0.7 % Normal 0-1 [facility] Comment on above: Performed By: #### L 500.2500, L100.0100 #### [facility] [address] [place], [address] Eosinophils/100 WBC (Bld) 0.2 % Normal 0-5 [facility] Comment on above: Performed By: #### L 500.2500, L100.0100 #### [facility] [address] [place], [address] Erythrocyte distribution width (RBC) [Ratio] 12.7 % Normal 11.6-14.6 [facility] Comment on above: Performed By: #### L 500.2500, L100.0100 #### [facility] [address] [place], [address] Hematocrit (Bld) [Volume fraction] 46.8 % Normal 37-47 [facility] Comment on above: Performed By: #### L 500.2500, L100.0100 #### [facility] [address] [place], [address] Hemoglobin (Bld) [Mass/Vol] 15.7 g/dL High 12.0-15.0 [facility] Comment on above: Performed By: #### L 500.2500, L100.0100 #### [facility] [address] [place], [address] IG% 0.500 Normal 0.0-0.9 [facility] Comment on above: Result Comment: IG% - Immature Granulocytes (promyelocytes, myelocytes and metamyelocytes) > 1% indicates that a LEFT SHIFT is Present. Performed By: #### L 500.2500, L100.0100 #### [facility] [address] [place], [address] Lymphocytes/100 WBC (Bld) 11.3 % Low 19-41 [facility] Comment on above: Performed By: #### L 500.2500, L100.0100 #### [facility] [address] [place], [address] MCH (RBC) [Entitic mass] 32.6 pg High 27.0-32.0 [facility] Comment on above: Performed By: #### L 500.2500, L100.0100 #### [facility] [address] [place], [address] MCHC (RBC) [Mass/Vol] 33.5 g/dL Normal 32-36 [facility] Comment on above: Performed By: #### L 500.2500, L100.0100 #### [facility] [address] [place], [address] MCV (RBC) [Entitic vol] 97.1 fL Normal 81-99 [facility] Comment on above: Performed By: #### L 500.2500, L100.0100 #### [facility] [address] [place], [address] Monocytes/100 WBC (Bld) 11.1 % High 0-10 [facility] Comment on above: Performed By: #### L 500.2500, L100.0100 #### [facility] [address] [place], [address] Neutrophils/100 WBC (Bld) 76.2 % High 47-70 [facility] Comment on above: Performed By: #### L 500.2500, L100.0100 #### [facility] [address] [place], [address] Nucleated RBC (Bld) [#/Vol] 0 10*3/uL Normal 0-5 [facility] Comment on above: Performed By: #### L 500.2500, L100.0100 #### [facility] [address] [place], [address] Platelet mean volume (Bld) [Entitic vol] 11.6 fL Normal 6.2-12.0 [facility] Comment on above: Performed By: #### L 500.2500, L100.0100 #### [facility] [address] [place], [address] Platelets (Bld) [#/Vol] 136 10*3/uL Low 150-450 [facility] Comment on above: Performed By: #### L 500.2500, L100.0100 #### [facility] [address] [place], [address] RBC (Bld) [#/Vol] 4.82 10*6/uL Normal 4.2-5.4 [facility] Comment on above: Performed By: #### L 500.2500, L100.0100 #### [facility] [address] [place], [address] RDW SD 45.4 fl High 35.1-43.9 [facility] Comment on above: Performed By: #### L 500.2500, L100.0100 #### [facility] [address] [place], [address] WBC (Bld) [#/Vol] 4.2 10*3/uL Low 4.4-11.0 [facility] Comment on above: Performed By: #### L 500.2500, L100.0100 #### [facility] [address] [place], [address] CNOVon 02-13-2025 CNOV Office Visit (INTMWS ) ANNE CHUNG ([id number]) 1985 F Date Time Provider Department 02/13/25 2:20 PM YASSINE LINK INTMWS During your visit today, we recorded the following information about you: Temperature Pulse Blood pressure Weight 99 degrees 103/minute 80/44 63.5 kg Height 1.524 m Yassine Link MD 02/13/2025 2:42 PM Signed This note [...] For hot flashes - albuterol HFA (VENTOLIN (more content not included)... Normal [facility] Carbon dioxide, total [Moles /volume] in Central venous bloodOrdered By: Jamarcus Persaud on 02-13-2025 CO2 [Moles/Vol] 23.1 mmol/L 21.0-32.0 [facility] Chest PA and Lateralon 02-13 Chest PA and Lateral [facility] Imaging Services [address] [place] [address] Chest PA and Lateral MR#: [id number] Acct: [id number] Name: ANNE CHUNG Rep #: [id number] : 1985 F 39 From: Renae Staley nd, MD PCP: Dr. Yassine Link MD Status: [facility] ER Study: Chest PA and Lateral Date of Exam: 02/13/25 Exam# [id number] Ordering Dr: Jamarcus Persaud DO PROCEDURE: CHEST PA AND LATERAL 02/13/2025 REASON FOR EXAM: 39-year-old female, cough, shortness of breath and chills. TECHNIQUE: Frontal and lateral views of the chest. COMPARISON: Chest radiograph 04/26/2020. FINDINGS: Surgical clips within the left breast and left lower neck. The heart size is normal. The mediastinal contour is unremarkable. No focal consolidation, pleural effusion or pneumothorax. The bones are unremarkable. RAD/Chest PA and Lateral IMPRESSION: NEGATIVE CHEST Reading Location: [facility] CC: Dr. Jamarcus Persaud DO; Dr. Yassine Link MD Non Emergency Services Ambulance Driver: Signed Normal [facility] Chloride assayOrdered By: Mika Persaud on 02-13-2025 Chloride [Moles/Vol] 106 mmol/L 98-108 [facility] Emergency Department Summary on 02-13-2025 Emergency Department Summary [facility] Medical Records Department [address] [place] [address] Emergency Department Summary 02/13/25 MR#: [id number] Acct: [id number] Name: ANNE CHUNG Rep #: [id number] : 1985 39 From: Jamarcus Persaud DO PCP: Dr. Yassine Link MD Status:DEP ER Location: ED HPI History of Present Illness Chief Complaint: Cough Informant: patient Onset/Context/Timing Onset: Weeks (2) Context: Gradual Onset Timing: Continuous Quality: Sharp Location: Upper back Worsened by: Nothing Relieved by: Nothing Narrative Narrative: Patient presents with cough, congestion, and back pain that has been getting worse over the past 2 weeks. Patient admits to some rhinorrhea and nasal congestion. Patient admits to some shortness of breath. Patient admits to a cough but denies any sputum production. Patient states that if she coughs very hard she will vomit up some clear sputum. Patient admits to general myalgias. Patient admits to some nausea but denies any vomiting. PFSH [facility], 1928–1983 Medical History PTSD (post-traumatic stress disorder) Left shoulder strain H/O thoracic outlet syndrome Thoracic outlet syndrome IBS (irritable bowel syndrome) GERD (gastroesophageal reflux disease) Anxiety Depression Home Medications ???Medication ???Instructions ???Recorded ???Last Taken ???Type estradiol 1 mg tablet 1 mg PO DAILY 11/19/23 11/19/23 Hi story estradiol 2 mg tablet 2 mg PO DAILY 11/19/23 11/19/23 Hi story ondansetron 4 mg disintegrating 4 mg PO Q8H PRN PRN Nausea #14 tab s 03/02/24 Unknown Rx tablet hydrocodone-acetaminophen 5-325mg 1 tab PO Q4H PRN PRN Pain 3 days 04/25/24 Unknown Rx 5mg-325mg #7 TABLETS codeine 10 mg-guaifenesin 200 mg/5 5 ml PO Q6H PRN cough #473 mL Unknown Rx mL oral liquid Allergy/AdvReac Type Severity Reaction Status Date / Time benzonatate (From Tessalon Allergy Rash Verified 01/15/25 13:19 Perles) diazepam (From Valium) Allergy Hives Verified 01/15/25 13:19 morphine Allergy Itching Verified 01/15/25 13:19 Penicillins Allergy Hives Verified 01/15/25 13:19 venom-honey bee (bee venom Allergy Hives Verified 01/15/25 13:19 (honey bee)) Family History Father Heart disease Hypertension Myocardial infarction Mother Cancer lung, throat and Lupus Surgical History History of left oophorectomy S/P breast biopsy History of esophagogastroduodenoscopy (EGD) S/P colonoscopy Status post hysterectomy Social History household members: none Smoking Status: Current every day smoker tobacco type: cigarettes alcohol intake: current alcohol intake frequency: holidays/special occasions only substance use type: marijuana caffeine: Yes what type of physical activity do you participate in: none seatbelt use: sometimes do you feel safe at home: Yes additional social history: Boyfriend-Sha- Works at [employer] Patient works at [employer] [facility] ED Constitutional Constitutional ED: Denies chills or fever(s) Eyes Eyes: Denies blurry vision or change in vision ENT ENT ED: Reports rhinorrhea; Denies sore throat Cardiovascular Cardiovascular: Denies chest pain or palpitations Respiratory/Chest Respiratory/Chest: Reports cough; Denies dyspnea Gastrointestinal Gastrointestinal: Reports nausea; Denies vomiting Genitourinary Genitourinary ED: Denies dysuria or hematuria Musculoskeletal Musculoskeletal: Reports back pain; Denies neck pain Integumentary Denies abscess or rash Neurologic Neurologic: Denies headache(s) or weakness Allergic/Immunologic Allergic/Immunologic ED: Denies mouth swelling or urticaria EXAM Physical Exam Const Vital Signs: 02/13/25 14:45 02/13/25 14:45 02/13/25 16:42 Temperature 99 F Temperature Source Temporal Pulse Rate 96 105 H Pulse Rate [Lying] Pulse Rate [Sitting (for 1 minute prior to obtaining)] Pulse Rate [Standing (for 1 minute prior to obtaining)] Respiratory Rate 20 H 20 H Respiratory Depth Normal Respiratory Pattern Normal Blood Pressure 90/60 92/59 L Blood Pressure [Lying] Blood Pressure [Sitting (for 1 minute prior to obtaining)] Blood Pressure [Standing (for 1 minute prior to obtaining)] Blood Pressure Mean 70 70 Blood Pressure Mean [Lying] Blood Pressure Mean [Sitting (for 1 minute prior to obtaining)] Blood Pressure Mean [Standing (for 1 minute prior to obtaining)] Pulse Ox 98 99 Oxygen Delivery Method Room Air Room Air Room Air 02/13/25 16:51 Temperature Temperature Source Pulse Rate Pulse Rate [Lying] 84 (more content not included)... Normal [facility] Eosinophil percentageOrdered By: Jamarcus Persaud on 02-13-2025 Eosinophils/100 WBC (Bld) 0.2 % 0-5 [facility] Erythrocyte distribution wid th ratioOrdered By: Jamarcus Persaud on 02-13-2025 Erythrocyte distribution width (RBC) [Ratio] 12.7 % 11.6-14.6 [facility] Erythrocyte distribution wid th standard deviationOrdered By: Jamarcus Persaud on 02-13-2025 Erythrocyte distribution width (RBC) [Entitic vol] 45.4 fL High 35.1-43.9 [facility] Estimation of creatinine cathleen aranceOrdered By: Jamarcus Persaud on 02-13-2025 Estimated Creatinine Clearance Calc 86.41 ml/min 50-250 [facility] GFR/1.73 sq M.predicted dwayne g non-blacks MDRD (S/P/Bld) [Vol rate/Area]Ordered By: Jamarcus Persaud on 02-13-2025 Estimated GFR (MDRD) Non-Af Amer 109 >60 [facility] Comment on above: mL/min/1.73m2 CKD-EP I Creatinine Equation (2020) Hematocrit Auto (Bld) [Volum e fraction]Ordered By: Jamarcus Persaud on 02-13-2025 Hematocrit (Bld) [Volume fraction] 46.8 % 37-47 [facility] Hemoglobin measurementOrdere d By: Jamarcus Persaud on 02-13-2025 Hemoglobin (Bld) [Mass/Vol] 15.7 g/dL High 12.0-15.0 [facility] Immature granulocytes/100 WB C Auto (Bld)Ordered By: Jamarcus Persaud on 02-13-2025 Immature granulocytes/100 WBC (Bld) 0.500 % 0.0-0.9 [facility] Comment on above: IG% - Immature Granu locytes (promyelocytes, myelocytes and metamyelocytes) > 1% indicates that a LEFT SHIFT is Present. Influenza virus A and B and SARS-CoV-2 (COVID-19) and Respiratory syncytial virus RNAOrdered By: Jamarcus Persaud on 02-13-2025 SARS-CoV-2 (COVID-19) RNA PATRICIA+probe Ql (Unsp spec) Influenzae A Abnormal [facility] Lymphocytes Auto (Unsp spec) [#/Vol]Ordered By: Jamarcus Persaud on 02-13-2025 Lymphocytes (Bld) [#/Vol] 0.48 10*3/uL Low 0.83-4.51 [facility] Lymphocytes/100 WBC Auto (Un sp spec)Ordered By: Jamarcus Persaud on 02-13-2025 Lymphocytes/100 WBC (Bld) 11.3 % Low 19-41 [facility] M100.678on 02-13-2025 M100.678 Copy of report sent to Infection Control Printer MS#[id number] 02/13/25 8743 PIPO. RESULTS CALLED TO GARCIA MUÑIZ 02/13/25 1723 Mary Leach. REPORT READ BACK BY SAME. FLUABV+SARS-CoV-2+RSV Pnl Resp PATRICIA+probe FLUABV+SARS-CoV-2+RSV Pnl Resp PATRICIA+probe SARS-CoV-2 (COVID 19) Negative INFLUENZA A A Positive A INFLUENZA B Negative RSV PCR Negative INFLUENZAE A Normal [facility] Comment on above: Performed By: #### M 100.678 #### [facility] [address] [place], [place] [address], [address] MCV (mean corpuscular volume ) determinationOrdered By: Jamarcus Persaud on 02-13-2025 MCV (RBC) [Entitic vol] 97.1 fL 81-99 [facility] Mean corpuscular hemoglobin (MCH) determinationOrdered By: Jamarcus Persaud on 02-13-2025 MCH (RBC) [Entitic mass] 32.6 pg High 27.0-32.0 [facility] Mean corpuscular hemoglobin concentration (MCHC) determinationOrdered By: Jamarcus Persaud on 02-13-2025 MCHC (RBC) [Mass/Vol] 33.5 g/dL 32-36 [facility] Mean platelet volume determi nationOrdered By: aJmarcus Persaud on 02-13-2025 Platelet mean volume (Bld) [Entitic vol] 11.6 fL 6.2-12.0 [facility] Monocyte percentageOrdered B y: Jamarcus Persaud on 02-13-2025 Monocytes/100 WBC (Bld) 11.1 % High 0-10 [facility] Neutrophil percentageOrdered By: Jamarcus Persaud on 02-13-2025 Neutrophils/100 WBC (Bld) 76.2 % High 47-70 [facility] Nucleated red blood cell per centageOrdered By: Jamarcus Persaud on 02-13-2025 Nucleated RBC/100 WBC (Bld) [Ratio] 0 % 0-5 [facility] Platelet countOrdered By: Mika Persaud on 02-13-2025 Platelets (Bld) [#/Vol] 136 10*3/uL Low 150-450 [facility] Potassium (Unsp spec) [Mass/ Vol]Ordered By: Jamarcus Persaud on 02-13-2025 Potassium [Moles/Vol] 3.5 mmol/L 3.3-5.1 [facility] RBC Auto (Bld) [#/Vol]Ordere d By: Jamarcus Persaud on 02-13-2025 RBC (Bld) [#/Vol] 4.82 10*6/uL 4.2-5.4 [facility] Serum creatinine measurement (mass/volume)Ordered By: Jamarcus Persaud on 02-13-2025 Creatinine [Mass/Vol] 0.72 mg/dL 0.70-1.20 [facility] Serum glucose measurement (m ass/volume)Ordered By: Jamarcus Persaud on 02-13-2025 Glucose [Mass/Vol] 89 mg/dL 70-99 [facility] Serum or plasma calcium adelita urement (mass/volume)Ordered By: Jamarcus Persaud on 02-13-2025 Calcium [Mass/Vol] 9.0 mg/dL 7.6-11.0 [facility] Serum or plasma urea nitroge n measurement (mass/volume)Ordered By: Jamarcus Persaud on 02-13-2025 Urea nitrogen [Mass/Vol] 6 mg/dL 4-19 [facility] Sodium levelOrdered By: Jamarcus Persaud on 02-13-2025 Sodium [Moles/Vol] 140 mmol/L 133-145 [facility] White blood cell (WBC) count Ordered By: Jamarcus Persaud on 02-13-2025 WBC (Bld) [#/Vol] 4.2 10*3/uL Low 4.4-11.0 [facility] ANES PRE-OPon 01-29-2025 ANES PRE-OP HNO ID: [id number] Author: TAMEKA PERRY MD Service: Anesthesiology Author [...] January 29, 2025 TIME: 1:25 PM CSN: [id number] [facility] HISTORY PHYSICALon HISTORY PHYSICAL HNO ID: [id number] Author: GERTRUDE HENRY MD Service: General Surgery Author Type: Physician Type: H&P Filed: 01/29/2025 13:14 Note Text: HISTORY AND PHYSICAL Anne Chung : 1985 REFERRING PHYSICIAN: [facility] [address] [place] [address] CHIEF COMPLAINT: Patient presents with: Consult: GERD [...] colonoscopy was 10/[address] Escalona at [facility]. Sedation: MAC EGD Impression: - Normal esophagus. [...] node, throat cancer; also in maternal GGF. Diabe (more content not included)... Normal [facility] CNOVon 01-27-2025 CNOV Office Visit (INTMWS ) ANNE CHUNG ([id number]) 1985 F Date Time Provider Department 01/27/25 10:40 AM MAYDA MADRIGAL INTMWS During your visit today, we recorded the following information about you: Pulse Blood pressure Weight 79/minute 112/70 65.4 kg Mayda Madrigal MD 01/27/2025 11:09 AM Signed Reason for Visit Anne Chung is a 39 year oldfemale who presents here Patient presents with: Recheck: Ct scan results, saw Dr Link yesterday evening 01/26/25, for cough and afebrile, sweating, no sore throat, speaking softly, patient was given prednisone and 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 Health Maintenance Hepatitis B Vaccine(1 [...] pain. Going for the EGD tomorrow in [place]. She was evaluated last night by pcp for a viral, she notes she is having a viral, was given some prednisone which she has yet to draft roller picker and wants me to write a [...] Left 10/23/2018 lysis of adhesions, Dr. Romelia FIELDANDOMDANIE DX W/WO SPEC BR/WA SPX 2014 Laparoscopy [...] Paternal Grandmother Diabetes Paternal Grandfather Heart Paternal (more content not included)... Normal [facility] CNOVon 01-26-2025 CNOV Office Visit (INTMWS ) ANNE CHUNG ([id number]) 1985 F Date Time Provider Department 01/26/25 7:20 PM YASSINE LINK INTMWS During your visit today, we recorded the following information about you: Temperature Pulse Respiration Blood pressure 98.9 degrees 88/minute 20/minute 110/64 Weight 66.8 kg Yassine Link MD 01/26/2025 7:45 PM Signed You have [...] days, such as taking additions steps for vacuum cleaner repairer air, hygiene, masks, physical distancing, and or testing when you will be around other people indoors. For more information go to https://www.cdc.gov/respira tory-viruses/prevention/ind ex.html Yassine Link MD 01/27/2025 7:26 AM Signed This note was created using NoteWriter. [...] 2. Asthma with acute exacerbation, unspecified asthma se (more content not included)... Normal [facility] CT ABD/PEL W IVCONon 025 CT ABD/PEL W IVCON * * *Final Report* * * DATE OF EXAM: Jan 22 2025 9:38AM [facility] 0530 - CT ABD/PEL W IVCON / [...] no developing inflammatory process or impending perforation. Non Emergency Services Ambulance Driver: JUSTIN Transcribe Date/Time: Jan 22 2025 9:52A Dictated by : JAMES LE MD This examination was interpreted and the report reviewed and electronically signed by: JAMES LE MD on Jan 22 2025 10:11AM EST [id number] Normal [facility] CT Abdomen and Pelvis W cont rast Darrell 01-22-2025 IMPRESSION: 1. No cause for patient's symptoms [...] no developing inflammatory process or impending perforation. Non Emergency Services Ambulance Driver: JUSTIN Transcribe Date/Time: Jan 22 2025 9:52A Dictated by : JAMES LE MD This examination was interpreted and the report reviewed and electronically signed by: JAMES LE MD on Jan 22 2025 10:11AM [facility] DIVISION OF RADIOLOGY * * *Final Report* * * DATE OF EXAM: Jan 22 2025 9:38AM [facility] 0530 - CT ABD/PEL W IVCON / [...] lower lobe. Localizer images: No additional findings. DIVISION OF RADIOLOGY Provider, [facility] Nimesh [facility] - 01/22/2025 * * *Final Report* * * DATE OF EXAM: Jan 22 2025 9:38AM [facility] 0530 - CT ABD/PEL W IVCON / [...] lower lobe. Localizer images: No additional findings. IMPRESSION IMPRESSION: 1. No cause for patient's symptoms [...] no developing inflammatory process or impending perforation. Non Emergency Services Ambulance Driver: JUSTIN Transcribe Date/Time: Jan 22 2025 9:52A Dictated by : JAMES LE MD This examination was interpreted and the report reviewed and electronically signed by: JAMES LE MD on Jan 22 2025 10:11AM EST [facility] Radiology Study observation (narrative) [facility] CT Abdomen and Pelvis W cont rast IVOrdered By: Ccf Provider on 01-22-2025 [facility] Breast imaging reportOrdered By: Yisel Martinez on 01-20-2025 Study report [facility] Imaging Services [address] [place] [address] SCRN MAMM (CAD)W/YUSEF BILAT MR#: [id number] Acct: [id number] Name: ANNE CHUNG Rep #: [id number] : 1985 F 39 From: Katelynn Martinez MD PCP: Dr. Yassine Link MD Status: R EG CLI Study:SCRN MAMM (CAD)W/YUSEF BILAT Date of Exa m: 01/20/25 Exam# [id number] Ordering Dr: Isidro Cunningham MD PROCEDURE: SCRN MAMM (CAD)W/YUSEF BILAT REASON FOR EXAM: F, Age 39 y/o, presents for annual screening mammogram. No family history of breast cancer. TECHNIQUE: Bilateral screening digital breast tomosynthesis with 2D and 3D images. Computeraided detection. COMPARISON: 09/05/2019 FINDINGS: There are scattered areas of fibroglandular density. There is a focal asymmetry in the central inner left breast at middle depth with an associated biopsy marker clip, this has not significantly changed when compared to prior examination of 2019. No suspicious masses, areas of developing architectural distortion, or suspicious calcifications. BI/SCRN MAMM (CAD)W/YUSEF BILAT IMPRESSION: There is no mammographic evidence of malignancy in either breast. BI-RADS 2: BENIGN. RECOMMEND ANNUAL MAMMOGRAPHIC SCREENING. Follow-up code: Routine Follow-up The patient will be notified of the results by letter. Reading Location: [facility] CC: Dr. Romelia Cunningham MD; Dr. Yassine Link MD ~ Non Emergency Services Ambulance Driver: Signed [facility] CNOVon 01-20-2025 CNOV Office Visit (INTMWS ) ANNE CHUNG ([id number]) 1985 F Date Time Provider Department 01/20/25 2:00 PM MAYDA MADRIGAL INTMWS During your visit today, we recorded the following information about you: Pulse Blood pressure Weight Height 60/minute 106/76 66.7 kg 1.524 m Mayda Madrgial MD 01/20/2025 4:08 PM Signed Reason for Visit Anne Chung is a 39 year oldfemale who presents here Patient presents with: Abdominal Pain: Stomach pain for 2 months upper abdomen, [place] ER 01/15/25 Health Maintenance Hepatitis B Vaccine(1 [...] medical history, appointments, medications, allergies reviewed. Pertinent Lab/Sridevi (more content not included)... Normal [facility] CNPNon 01-20-2025 CNPN Telephone (INTMWS) ANNE CHUNG ([id number]) 1985 F Date Time Provider Department 01/20/25 YASSINE LINK INTWS During your visit today, we recorded the following information about you: Fabiana Mcmahan RN 01/20/2025 10:21 AM Signed Patient calls and states that she continues to have severe abdominal pain. Patient states that she was seen at [facility] ER and was prescribed [place] for the pain. Patient reports that [place] is not touching the pain. Patient is [...] Date Reviewed: 01/08/2025 Reviewed by: Mallory Marrero APRN.APPLICATIONS SYSTEMS ENGINEER - Fully Assessed Reason for Visit: Patient [...] Encounter Status:Closed by FABIANA MCMAHAN on 01/20/25 [facility] SCRN MAMM (CAD)W/YUSEF BILATo n 01-20-2025 SCRN MAMM (CAD)W/YUSEF BILPATEL [facility] Imaging Services [address] [place] [address] SCRN MAMM (CAD)W/YUSEF BILPATEL MR#: [id number] Acct: [id number] Name: ANNE CHUNG Rep #: [id number] : 1985 F 39 From: Yisel Martinez MD PCP: Dr. Yassine Link MD Status: REG CLI Study: SCRN MAMM (CAD)W/YUSEF BILAT Date of Exam: 12/28 04/19 Exam# [id number] Ordering Dr: Romelia Cunningham MD PROCEDURE: SCRN MAMM (CAD)W/YUSEF BILAT REASON FOR EXAM: F, Age 39 y/o, presents for annual screening mammogram. No family history of breast cancer. TECHNIQUE: Bilateral screening digital breast tomosynthesis with 2D and 3D images. Computer aided detection. COMPARISON: 09/05/2019 FINDINGS: There are scattered areas of fibroglandular density. There is a focal asymmetry in the central inner left breast at middle depth with an associated biopsy marker clip, this has not significantly changed when compared to prior examination of 2019. No suspicious masses, areas of developing architectural distortion, or suspicious calcifications. BI/SCRN MAMM (CAD)W/YUSEF BILAT IMPRESSION: There is no mammographic evidence of malignancy in either breast. BI-RADS 2: BENIGN. RECOMMEND ANNUAL MAMMOGRAPHIC SCREENING. Follow-up code: Routine Follow-up The patient will be notified of the results by letter. Reading Location: [facility] CC: Dr. Romelia Cunningham MD; Dr. Yassine Link MD Non Emergency Services Ambulance Driver: Signed Normal [facility] .Auto Diffon 01-15-2025 Basophil, Absolute 0.0 10 3/mcL Normal 0.0-0.2 [facility] Comment on above: Performed By: #### C GLADYS CA ANEU, MDW, BMP, GFR, DIMER, TROPHS #### [address] [place] [place], [place] [address] Basophils/100 WBC (Bld) 0.3 % Normal 0.0-2.5 [facility] Comment on above: Performed By: #### C GLADYS CA ANEU, MDW, BMP, GFR, DIMER, TROPHS #### [address] [place], [place] [address] Eosinophil, Absolute 0.0 10 3/mcL Normal 0.0-0.7 [facility] Comment on above: Performed By: #### C BC, ADIFF, ANEU, MDW, BMP, GFR, DIMER, TROPHS #### [address] [address] Eosinophils/100 WBC (Bld) 0.3 % Normal 0.0-7.0 [facility] Comment on above: Performed By: #### C BC, ADIFF, ANEU, MDW, BMP, GFR, DIMER, TROPHS #### [address] [address] Lymphocyte, Absolute 0.9 10 3/mcL Normal 0.9-4.3 [facility] Comment on above: Performed By: #### C BC, ADIFF, ANEU, MDW, BMP, GFR, DIMER, TROPHS #### [address] [address] Lymphocytes/100 WBC (Bld) 11.0 % Low 20.0-40.0 [facility] Comment on above: Performed By: #### C BC, ADIFF, ANEU, MDW, BMP, GFR, DIMER, TROPHS #### [address] [address] Monocyte, Absolute 0.6 10 3/mcL Normal 0.1-1.4 [facility] Comment on above: Performed By: #### C BC, ADIFF, ANEU, MDW, BMP, GFR, DIMER, TROPHS #### [address] [address] Monocytes/100 WBC (Bld) 7.2 % Normal 2.0-13.0 [facility] Comment on above: Performed By: #### C BC, ADIFF, ANEU, MDW, BMP, GFR, DIMER, TROPHS #### [address] [address] Neutrophils/100 WBC (Bld) 81.2 % High 50.0-75.0 [facility] Comment on above: Performed By: #### C BC, ADIFF, ANEU, MDW, BMP, GFR, DIMER, TROPHS #### [address] [address] .GFRon 01-15-2025 Estimated Glomerular Filtration Rate 115 ml/min/1.73sqm Normal [facility] Comment on above: Result Comment: Stages of Chronic Kidney Disease [...] calculate the eGFR results. Performed By: #### C BC, ADIFF, ANEU, MDW, BMP, GFR, DIMER, TROPHS #### [place] [address] .MDWon 01-15-2025 Monocyte Distribution Width 22.69 High 0.00-20.00 [facility] Comment on above: Result Comment: For adults in ED, MDW>20.0 may be associated with a higher risk of sepsis during the first 12hrs of hospital admission Performed By: #### C BC, ADIFF, ANEU, MDW, BMP, GFR, DIMER, TROPHS #### [place] [address] .NEUABSon 01-15-2025 Neutrophil, Absolute 6.3 10 3/mcL Normal 2.3-8.1 [facility] Comment on above: Performed By: #### C BC, ADIFF, ANEU, MDW, BMP, GFR, DIMER, TROPHS #### [place] [address] CBCon 01-15-2025 Erythrocyte distribution width (RBC) [Ratio] 13.7 % Normal 11.5-15.5 [facility] Comment on above: Performed By: #### C BC, ADIFF, ANEU, MDW, BMP, GFR, DIMER, TROPHS #### [place] [id number] Hematocrit (Bld) [Volume fraction] 41.8 % Normal 34.0-46.0 [facility] Comment on above: Performed By: #### C BC, ADIFF, ANEU, MDW, BMP, GFR, DIMER, TROPHS #### [address] [address] Hgb 14.4 G/dL Normal 12.0-16.0 [facility] Comment on above: Performed By: #### C BC, ADIFF, ANEU, MDW, BMP, GFR, DIMER, TROPHS #### [address] [address] MCH (RBC) [Entitic mass] 32.7 pg Normal 27.0-33.0 [facility] Comment on above: Performed By: #### C BC, ADLYNDSAY, ANEU, MDW, BMP, GFR, DIMER, TROPHS #### [place] [id number] MCHC 34.5 G/dL Normal 32.0-36.0 [facility] Comment on above: Performed By: #### C BC, ADLYNDSAY, ANEU, MDW, BMP, GFR, DIMER, TROPHS #### [address] [address] MCV (RBC) [Entitic vol] 94.9 fL Normal 80.0-99.0 [facility] Comment on above: Performed By: #### C BC, ADIFF, ANEU, MDW, BMP, GFR, DIMER, TROPHS #### [address] [address] Platelet 152 10 3/mcL Normal 150-450 [facility] Comment on above: Performed By: #### C BC, ADIFF, ANEU, MDW, BMP, GFR, DIMER, TROPHS #### [address] [address] Platelet mean volume (Bld) [Entitic vol] 9.6 fL Normal 6.6-10.5 [facility] Comment on above: Performed By: #### C BC, ADIFF, ANEU, MDW, BMP, GFR, DIMER, TROPHS #### [place] [address] [place], [place] [address] RBC 4.40 10 6/mcL Normal 4.10-5.30 [facility] Comment on above: Performed By: #### C BC, ADIFF, ANEU, MDW, BMP, GFR, DIMER, TROPHS #### [place] [address] [place], [place] [address] WBC 7.8 10 3/mcL Normal 4.5-10.8 [facility] Comment on above: Performed By: #### C BC, ADIFF, ANEU, MDW, BMP, GFR, DIMER, TROPHS #### [place] [address] [place], [place] [address] CBC W/Diff, Automatedon 12-28 Absolute Neut Normal 2.0-7.7 [facility] Comment on above: Result Comment: NO S PECIMEN COLLECTED. PATIENT DEPARTED ED. Performed By: #### L 700.6800, L500.4050, L100.0100 #### [facility] [address] [place], [address] HCT Normal 37-47 [facility] Comment on above: Result Comment: NO S PECIMEN COLLECTED. PATIENT DEPARTED ED. Performed By: #### L 700.6800, L500.4050, L100.0100 #### [facility] [address] [place], [address] HGB Normal 12.0-15.0 [facility] Comment on above: Result Comment: NO S PECIMEN COLLECTED. PATIENT DEPARTED ED. Performed By: #### L 700.6800, L500.4050, L100.0100 #### [facility] [address] [place], [address] MCH Normal 27.0-32.0 [facility] Comment on above: Result Comment: NO S PECIMEN COLLECTED. PATIENT DEPARTED ED. Performed By: #### L 700.6800, L500.4050, L100.0100 #### [facility] [address] [place], [address] MCHC Normal 32-36 [facility] Comment on above: Result Comment: NO S PECIMEN COLLECTED. PATIENT DEPARTED ED. Performed By: #### L 700.6800, L500.4050, L100.0100 #### [facility] [address] [place], [address] MCV Normal 81-99 [facility] Comment on above: Result Comment: NO S PECIMEN COLLECTED. PATIENT DEPARTED ED. Performed By: #### L 700.6800, L500.4050, L100.0100 #### [facility] [address] [place], [address] NEUT% Normal 47-70 [facility] Comment on above: Result Comment: NO S PECIMEN COLLECTED. PATIENT DEPARTED ED. Performed By: #### L 700.6800, L500.4050, L100.0100 #### [facility] [address] [place], [address] PLT Normal 150-450 [facility] Comment on above: Result Comment: NO S PECIMEN COLLECTED. PATIENT DEPARTED ED. Performed By: #### L 700.6800, L500.4050, L100.0100 #### [facility] [address] [place], [address] RBC Normal 4.2-5.4 [facility] Comment on above: Result Comment: NO S PECIMEN COLLECTED. PATIENT DEPARTED ED. Performed By: #### L 700.6800, L500.4050, L100.0100 #### [facility] [address] [place], [address] RDW CV Normal 11.6-14.6 [facility] Comment on above: Result Comment: NO S PECIMEN COLLECTED. PATIENT DEPARTED ED. Performed By: #### L 700.6800, L500.4050, L100.0100 #### [facility] [address] [place], [address] RDW SD Normal 35.1-43.9 [facility] Comment on above: Result Comment: NO S PECIMEN COLLECTED. PATIENT DEPARTED ED. Performed By: #### L 700.6800, L500.4050, L100.0100 #### [facility] [address] [place], [address] WBC Normal 4.4-11.0 [facility] Comment on above: Result Comment: NO S PECIMEN COLLECTED. PATIENT DEPARTED ED. Performed By: #### L 700.6800, L500.4050, L100.0100 #### [facility] [address] [place], [address] CMPon 01-15-2025 Albumin Level 3.5 G/dL Normal 3.5-5.0 [facility] Comment on above: Order Comment: hemol yzed Performed By: #### C GLADYS CA ANEU, MDW, BMP, GFR, DIMER, TROPHS #### [address] [address] Albumin/Globulin [Mass ratio] 1.2 {ratio} Normal 1.1-2.5 [facility] Comment on above: Order Comment: hemol yzed Performed By: #### GLADYS CRAWFORD ANEU, MDW, BMP, GFR, DIMER, TROPHS #### [address] [address] ALP [Catalytic activity/Vol] 76 U/L Normal 40-135 [facility] Comment on above: Order Comment: hemol yzed Performed By: #### C GLADYS CA ANEU, NERISSA, BMP, GFR, DIMER, TROPHS #### [place] [address] [place], [place] [address] ALT [Catalytic activity/Vol] 17 U/L Normal 14-59 [facility] Comment on above: Order Comment: hemol yzed Performed By: #### C BC, ADIFF, ANEU, MDW, BMP, GFR, DIMER, TROPHS #### [address] [address] AST [Catalytic activity/Vol] 13 U/L Normal 10-40 [facility] Comment on above: Order Comment: hemol yzed Performed By: #### C BC, ADIFF, ANEU, MDW, BMP, GFR, DIMER, TROPHS #### [address] [address] Bili Total 0.6 mg/dL Normal 0.2-1.0 [facility] Comment on above: Order Comment: hemol yzed Result Comment: Use of this assay is not recommended for patients undergoing treatment with eltrombopag due to the potential for falsely elevated results. Performed By: #### C BC, ADIFF, ANEU, MDW, BMP, GFR, DIMER, TROPHS #### [address] [address] BUN/Creatinine Ratio 6 ratio Low 7-27 [facility] Comment on above: Order Comment: hemol yzed Performed By: #### C BC, ADIFF, ANEU, MDW, BMP, GFR, DIMER, TROPHS #### [address] [address] Calcium [Mass/Vol] 8.2 mg/dL Low 8.4-10.2 [facility] Comment on above: Order Comment: hemol yzed Performed By: #### C BC, ADIFF, ANEU, MDW, BMP, GFR, DIMER, TROPHS #### [address] [address] Chloride [Moles/Vol] 107 mmol/L Normal 98-107 [facility] Comment on above: Order Comment: hemol yzed Performed By: #### C BC, ADIFF, ANEU, MDW, BMP, GFR, DIMER, TROPHS #### [address] [address] CO2 [Moles/Vol] 26 mmol/L Normal 22-29 [facility] Comment on above: Order Comment: hemol yzed Performed By: #### C BC, ADIFF, ANEU, MDW, BMP, GFR, DIMER, TROPHS #### [address] [address] Creatinine [Mass/Vol] 0.63 mg/dL Normal 0.55-1.[address] [facility] Comment on above: Order Comment: hemol yzed Result Comment: Test ing performed on Siemens Dimension EXL analyzer using a modified kinetic Manjula technique. Performed By: #### C BC, ADIFF, ANEU, MDW, BMP, GFR, DIMER, TROPHS #### [address] [address] Electrolyte Balance 7.0 mEq/L Normal 4.0-15.0 [facility] Comment on above: Order Comment: hemol yzed Performed By: #### C BC, ADIFF, ANEU, MDW, BMP, GFR, DIMER, TROPHS #### [address] [address] Globulin 2.9 G/dL Normal 1.5-3.8 [facility] Comment on above: Order Comment: hemol yzed Performed By: #### C BC, ADIFF, ANEU, MDW, BMP, GFR, DIMER, TROPHS #### [address] [address] Glucose [Mass/Vol] 87 mg/dL Normal 70-105 [facility] Comment on above: Order Comment: hemol yzed Performed By: #### C BC, ADIFF, ANEU, MDW, BMP, GFR, DIMER, TROPHS #### [address] [address] Potassium [Moles/Vol] 3.0 mmol/L Low 3.5-5.[address] [facility] Comment on above: Order Comment: hemol yzed Performed By: #### C BC, ADIFF, ANEU, MDW, BMP, GFR, DIMER, TROPHS #### [address] [address] Sodium [Moles/Vol] 140 mmol/L Normal 136-145 [facility] Comment on above: Order Comment: hemol yzed Performed By: #### C BC, ADIFF, ANEU, MDW, BMP, GFR, DIMER, TROPHS #### [address] [address] Total Protein 6.4 G/dL Normal 6.4-8.2 [facility] Comment on above: Order Comment: hemol yzed Performed By: #### C BC, ADIFF, ANEU, MDW, BMP, GFR, DIMER, TROPHS #### [place] [address] [place], [place] [address] Urea nitrogen [Mass/Vol] 4 mg/dL Low 7-18 [facility] Comment on above: Order Comment: hemol yzed Performed By: #### C BC, ADIFF, ANEU, MDW, BMP, GFR, DIMER, TROPHS #### [address] [address] [address] ABD/PELVIS W/ IV CONTRAST ONLYon 01-15-2025 CT ABD/PELVIS W/ IV CONTRAST ONLY ORIGINAL EXAMINATION: CT OF THE ABDOMEN AND [...] Date: 01/15/2025 5:28:09 PM Ordering Provider: ULISES Gomez [facility] Comprehensive Metabolic Prof sepideh 01-15-2025 ALB Normal 3.2-5.0 [facility] Comment on above: Result Comment: NO S PECIMEN COLLECTED. PATIENT DEPARTED ED Performed By: #### L 700.6800, L500.4050, L100.0100 #### [facility] [address] [place], [address] ALK P Normal 45-117 [facility] Comment on above: Result Comment: NO S PECIMEN COLLECTED. PATIENT DEPARTED ED Performed By: #### L 700.6800, L500.4050, L100.0100 #### [facility] [address] [place], [address] ALT Normal 13-56 [facility] Comment on above: Result Comment: NO S PECIMEN COLLECTED. PATIENT DEPARTED ED Performed By: #### L 700.6800, L500.4050, L100.0100 #### [facility] [address] [place], [address] AST Normal 15-37 [facility] Comment on above: Result Comment: NO S PECIMEN COLLECTED. PATIENT DEPARTED ED Performed By: #### L 700.6800, L500.4050, L100.0100 #### [facility] [address] [place], [address] BUN Normal 7-18 [facility] Comment on above: Result Comment: NO S PECIMEN COLLECTED. PATIENT DEPARTED ED Performed By: #### L 700.6800, L500.4050, L100.0100 #### [facility] [address] [place], [address] BUN/CRE Normal 10-20 [facility] Comment on above: Result Comment: NO S PECIMEN COLLECTED. PATIENT DEPARTED ED Performed By: #### L 700.6800, L500.4050, L100.0100 #### [facility] [address] [place], [address] CA,Total Normal 8.5-10.1 [facility] Comment on above: Result Comment: NO S PECIMEN COLLECTED. PATIENT DEPARTED ED Performed By: #### L 700.6800, L500.4050, L100.0100 #### [facility] [address] [place], [address] CL Normal 98-107 [facility] Comment on above: Result Comment: NO S PECIMEN COLLECTED. PATIENT DEPARTED ED Performed By: #### L 700.6800, L500.4050, L100.0100 #### [facility] [address] [place], [address] CO2 Normal 21.0-32.0 [facility] Comment on above: Result Comment: NO S PECIMEN COLLECTED. PATIENT DEPARTED ED Performed By: #### L 700.6800, L500.4050, L100.0100 #### [facility] [address] [place], [address] CREAT,SERUM Normal 0.55-1.02 [facility] Comment on above: Result Comment: NO S PECIMEN COLLECTED. PATIENT DEPARTED ED Performed By: #### L 700.6800, L500.4050, L100.0100 #### [facility] [address] [place], [address] EST GFR Normal >60 [facility] Comment on above: Result Comment: NO S PECIMEN COLLECTED. PATIENT DEPARTED ED Performed By: #### L 700.6800, L500.4050, L100.0100 #### [facility] [address] [place], [address] EST GFR - AA Normal >60 [facility] Comment on above: Result Comment: NO S PECIMEN COLLECTED. PATIENT DEPARTED ED Performed By: #### L 700.6800, L500.4050, L100.0100 #### [facility] [address] [place], [address] GAP Normal 5-15 [facility] Comment on above: Result Comment: NO S PECIMEN COLLECTED. PATIENT DEPARTED ED Performed By: #### L 700.6800, L500.4050, L100.0100 #### [facility] [address] [place], [address] GLU Normal 74-106 [facility] Comment on above: Result Comment: NO S PECIMEN COLLECTED. PATIENT DEPARTED ED Performed By: #### L 700.6800, L500.4050, L100.0100 #### [facility] [address] [place], [address] Potassium Normal 3.5-5.1 [facility] Comment on above: Result Comment: NO S PECIMEN COLLECTED. PATIENT DEPARTED ED Performed By: #### L 700.6800, L500.4050, L100.0100 #### [facility] [address] [place], [address] T BILI Normal 0.20-1.00 [facility] Comment on above: Result Comment: NO S PECIMEN COLLECTED. PATIENT DEPARTED ED Performed By: #### L 700.6800, L500.4050, L100.0100 #### [facility] [address] [place], [address] T PROT Normal 6.4-8.2 [facility] Comment on above: Result Comment: NO S PECIMEN COLLECTED. PATIENT DEPARTED ED Performed By: #### L 700.6800, L500.4050, L100.0100 #### [facility] [address] [place], [address] Comprehensive Metabolic Profil Normal 136-145 [facility] Comment on above: Result Comment: NO S PECIMEN COLLECTED. PATIENT DEPARTED ED Performed By: #### L 700.6800, L500.4050, L100.0100 #### [facility] [address] [place], [address] LABORATORYOrdered By: Robin Mansfield on 01-15-2025 Appearance (U) Clear (01/15/25 4:22 PM) Normal Clear AO Auto Urine SS Bilirubin Ql (U) Negative (01/15/25 4:22 PM) Normal Negative AO Auto Urine SS Color (U) Yellow (01/15/25 4:22 PM) Normal AO Auto Urine SS Glucose Test strip (U) [Mass/Vol] Negative Normal Negative AO Auto Urine SS Hemoglobin Auto test strip (U) [Mass/Vol] Negative (01/15/25 4:22 PM) Normal Negative AO Auto Urine SS Ketones Ql (U) Negative Normal Negative AO Auto Urine SS UA Leuk Est Negative (01/15/25 4:22 PM) Normal Negative AO Auto Urine SS UA Nitrite Negative (01/15/25 4:22 PM) Normal Negative AO Auto Urine SS UA pH 7.0 (01/15/25 4:22 PM) Normal 5.0 - 8.0 AO Auto Urine SS UA Protein Negative Normal Negative AO Auto Urine SS UA Spec Grav 1.015 (01/15/25 4:22 PM) Normal 1.015-1.02 5 AO Auto Urine SS UA Specimen Type Clean Catch (01/15/25 4:22 PM) Normal AO Auto Urine SS UA Urobilinogen 1.0 E.U./dL Normal 0.2-1.0 AO Auto Urine SS LABORATORYOrdered By: SYSTEM SYSTEM on 01-15-2025 Albumin BCP dye [Mass/Vol] 3.5 G/dL Normal 3.5 - 5.0 G/dL AO ADM SS Albumin/Globulin [Mass ratio] 1.2 {ratio} Normal 1.1 - 2.5 ratio AO ADM SS ALP [Catalytic activity/Vol] 76 U/L Normal 40 - 135 U/L AO ADM SS ALT With P-5'-P [Catalytic activity/Vol] 17 U/L Normal 14 - 59 U/L AO ADM SS AST With P-5'-P [Catalytic activity/Vol] 13 U/L Normal 10 - 40 U/L AO ADM SS Bilirubin [Mass/Vol] 0.6 mg/dL Normal 0.2 - 1 .0 mg/dL AO ADM SS Comment on above: Interpretive Data: U se of this assay is not recommended for patients undergoing treatment with eltrombopag due to the potential for falsely elevated results. Calcium [Mass/Vol] 8.2 mg/dL Low 8.4 - 10. 2 mg/dL AO ADM SS Chloride [Moles/Vol] 107 mmol/L Normal 98 - 10 7 mmol/L AO ADM SS CO2 [Moles/Vol] 26 mmol/L Normal 22 - 29 mmol/L AO ADM SS Creatinine [Mass/Vol] 0.63 mg/dL Normal 0.55 - 1.02 mg/dL AO ADM SS Comment on above: Interpretive Data: T esting performed on Siemens Dimension EXL analyzer using a modified kinetic Manjula technique. Electrolyte Balance 7.0 mEq/L Normal 4.0 - 15 .0 mEq/L AO ADM SS Estimated Glomerular Filtration Rate 115 ml/min/1.73sqm Invalid Interpretation Code AO Chemistry S Comment on above: Interpretive Data: Stages of Chronic Kidney Disease (CKD) Stage [...] race factor to calculate the eGFR results. Globulin 2.9 G/dL Normal 1.5 - 3.8 G/dL AO ADM SS Glucose [Mass/Vol] 87 mg/dL Normal 70 - 105 mg/dL AO ADM SS Lipase [Catalytic activity/Vol] 12 U/L Low 16 - 77 U/L AO ADM SS Potassium [Moles/Vol] 3.0 mmol/L Low 3.5 - 5.1 mmol/L AO ADM SS Protein [Mass/Vol] 6.4 G/dL Normal 6.4 - 8.2 G/dL AO ADM SS Sodium [Moles/Vol] 140 mmol/L Normal 136 - 145 mmol/L AO ADM SS Urea nitrogen [Mass/Vol] 4 mg/dL Low 7 - 18 mg/dL AO ADM SS Urea nitrogen/Creatinine [Mass ratio] 6 ratio Low 7 - 27 ratio AO ADM SS Basophils (Bld) [#/Vol] 0.0 103/mcL Normal 0.0 - 0.2 10^3/mcL AO Workflow SS Basophils/100 WBC (Bld) 0.3 % Normal 0.0 - 2.5 % AO Workflow SS Eosinophil, Absolute 0.0 103/mcL Normal 0.0 - 0 .7 10^3/mcL AO Workflow SS Eosinophils/100 WBC (Bld) 0.3 % Normal 0.0 - 7.0 % AO Workflow SS Erythrocyte distribution width (RBC) [Ratio] 13.7 % Normal 11.5 - 15.5 % AO Workflow SS Hematocrit (Bld) [Volume fraction] 41.8 % Normal 34.0 - 46.0 % AO Workflow SS Hemoglobin (Bld) [Mass/Vol] 14.4 G/dL Normal 12.0 - 16.0 G/dL AO Workflow SS Lymphocytes (Bld) [#/Vol] 0.9 103/mcL Normal 0.9 - 4.3 10^3/mcL AO Workflow SS Lymphocytes/100 WBC (Bld) 11.0 % Low 20.0 - 40.0 % AO Workflow SS MCH (RBC) [Entitic mass] 32.7 pg Normal 27.0 - 33.0 pg AO Workflow SS MCHC 34.5 G/dL Normal 32.0 - 36.0 G/dL AO Workflow SS MCV (RBC) [Entitic vol] 94.9 fL Normal 80.0 - 99.0 fL AO Workflow SS Monocyte distribution width Auto (Bld) [Entitic vol] 22.69 1 High 0.00 - 20.00 AO Workflow SS Comment on above: Result Comment: For adults in ED, MDW>20.0 may be associated with a higher risk of sepsis during the first 12hrs of hospital admission Monocytes (Bld) [#/Vol] 0.6 103/mcL Normal 0.1 - 1.4 10^3/mcL AO Workflow SS Monocytes/100 WBC (Bld) 7.2 % Normal 2.0 - 13.0 % AO Workflow SS Neutrophils (Bld) [#/Vol] 6.3 103/mcL Normal 2.3 - 8.1 10^3/mcL AO Workflow SS Neutrophils/100 WBC (Bld) 81.2 % High 50.0 - 75.0 % AO Workflow SS Platelet mean volume (Bld) [Entitic vol] 9.6 fL Normal 6.6 - 10.5 fL AO Workflow SS Platelets (Bld) [#/Vol] 152 103/mcL Normal 150 - 450 10^3/mcL AO Workflow SS RBC (Bld) [#/Vol] 4.40 106/mcL Normal 4.10 - 5.30 10^6/mcL AO Workflow SS WBC (Bld) [#/Vol] 7.8 103/mcL Normal 4.5 - 10.8 10^3/mcL AO Workflow SS LIPon 01-15-2025 Lipase Level 12 U/L Low 16-77 [facility] Comment on above: Performed By: #### C BC, ADIFF, ANEU, MDW, BMP, GFR, DIMER, TROPHS #### [address] [address] ,Serum,hCG Quali.on 01-15-2025 HCG, SERUM QUAL Normal [facility] Comment on above: Result Comment: NO S PECIMEN COLLECTED. PATIENT DEPARTED ED. Performed By: #### L 700.6800, L500.4050, L100.0100 #### [facility] [address] [place], [place], [id number] INTERNAL QC OK? Normal [facility] Comment on above: Result Comment: NO S PECIMEN COLLECTED. PATIENT DEPARTED ED. Performed By: #### L 700.6800, L500.4050, L100.0100 #### [facility] [address] [place], [address] RECORD KIT LOT# [facility] Comment on above: Result Comment: NO S PECIMEN COLLECTED. PATIENT DEPARTED ED. Performed By: #### L 700.6800, L500.4050, L100.0100 #### [facility] [address] [place], [place], [id number] UAon 01-15-2025 Color (U) Yellow Normal [facility] Comment on above: Performed By: #### C ROBY, JIMENEZ GRAHAM MDW, BMP, GFR, DIMER, TROPHS #### [address] [address] Glucose (U) [Mass/Vol] Negative Normal Negative [facility] Comment on above: Performed By: #### C ROBY, JIMENEZ GRAHAM, NERISSA, BMP, GFR, DIMER, TROPHS #### [address] [address] Ketones Ql (U) Negative Normal Negative [facility] Comment on above: Performed By: #### C ROBY, JIMENEZ GRAHAM, NERISSA, BMP, GFR, DIMER, TROPHS #### [address] [address] UA Appear Clear Normal Clear [facility] Comment on above: Performed By: #### C ROBY, GLADYS, JIMENEZ, NERISSA, BMP, GFR, DIMER, TROPHS #### [address] [address] UA Blood Negative Normal Negative [facility] Comment on above: Performed By: #### C ROBY, JIMENEZ GRAHAM, W, BMP, GFR, DIMER, TROPHS #### [address] [address] UA Leuk Est Negative Normal Negative [facility] Comment on above: Performed By: #### C GLADYS CA ANEU, W, BMP, GFR, DIMER, TROPHS #### [address] [address] UA Nitrite Negative Normal Negative [facility] Comment on above: Performed By: #### C GLADYS CA ANEU, W, BMP, GFR, DIMER, TROPHS #### [address] [address] UA pH 7.0 Normal 5.0 - 8.0 [facility] Comment on above: Performed By: #### C ROBY, JIMENEZ GRAHAM, MDW, BMP, GFR, DIMER, TROPHS #### [address] [address] UA Protein Negative Normal Negative [facility] Comment on above: Performed By: #### C ROBY, GLADYS, JIMENEZ, MDW, BMP, GFR, DIMER, TROPHS #### [address] [address] UA Spec Grav 1.015 Normal 1.015-1.02 5 [facility] Comment on above: Performed By: #### C ROBY, GLADYS, JIMENEZ, MDW, BMP, GFR, DIMER, TROPHS #### [place] [address] [place], [place] [address] UA Specimen Type Clean Catch Normal [facility] Comment on above: Performed By: #### C ROBY, GLADYS, JIMENEZ, MDW, BMP, GFR, DIMER, TROPHS #### [address] [address] UA Urobilinogen 1.0 E.U./dL Normal 0.2-1.0 [facility] Comment on above: Performed By: #### C ROBY, GLADYS, JIMENEZ, MDW, BMP, GFR, DIMER, TROPHS #### [address] [address] Urobilinogen (U) [Mass/Vol] Negative Normal Negative [facility] Comment on above: Performed By: #### C ROBY, GLADYS, JIMENEZ, MDW, BMP, GFR, DIMER, TROPHS #### [address] [address] CNOVon 01-08-2025 CNOV Office Visit (GENSWS ) ANNE CHUNG ([id number]) 1985 F Date Time Provider Department 01/08/25 11:00 AM MALLORY MARRERO During your visit today, we recorded the following information about you: Temperature Pulse Respiration Blood pressure 97.3 degrees 90/minute 14/minute 102/62 Weight Height 66.7 kg 1.524 m Mallory Marrero APRN.CNP 01/08/2025 1:34 PM Signed HISTORY AND PHYSICAL Anne Chung : 1985 REFERRING PHYSICIAN: German Acevedo0 [facility] [id number] CHIEF COMPLAINT: Patient presents with: Consult: GERD [...] colonoscopy was 10/[address] Escalona at [facility]. Sedation: MAC EGD Impression: - Normal esophagus. [...] Father Accidental Father MVA No Known Problems S (more content not included)... [facility] ([id number]) 1985 F Date Time Provider Department 01/08/25 MALLORY MARRERO During your visit today, we recorded the following information about you: Virgilio Ignacio 01/08/2025 11:45 AM Signed offered patient EGD in [place] 01-09-2025 patient declined. patient was given the Endo # ([phone]) to call and see who can get [...] Date Reviewed: 01/08/2025 Reviewed by: Mallory Marrero APRN.APPLICATIONS SYSTEMS ENGINEER - Fully Assessed Prescriptions as of 02/23/2025 [...] treatment [Z91.199] 03/12/2023 Encounter Status:Closed by VIRGILIO IGNACIO on 02/23/25 [facility] CNOVon 12-23-2024 CNOV Office Visit (INTMWS ) ANNE CHUNG ([id number]) 1985 F Date Time Provider Department 12/23/24 8:40 AM [facility] INTM[facility] During your visit today, we recorded the following information about you: Pulse Respiration Blood pressure Weight 80/minute 16/minute 92/59 65 kg German Pires, SLOTS MANAGER.CORE MOUNTER 12/23/2024 9:21 AM Signed SUBJECTIVE: Hepatitis B [...] PCP: Yassine Link MD Presents today regarding appetite, rapid weight loss,pain in upper stomach per Mychart scheduling. Today reports she is from her , has a lot of stress, wonders if she might have an ulcer. She reports remote history of ulcer. CC EGD 2010 and 2015 did not demonstrate this. 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 Currently on estradiol transdermal patch. She reports she is also getting testosterone patch from her [facility]. Taking ibuprofen and acetominophen for abdominal pain. [...] She reports ports seeing counselor at [facility]. Review of Systems Gastrointestinal: Positive for abdominal [...] Marijuana ASSESSMENT/PLAN: 1. Situational depression - ICD9: 309. (more content not included)... Normal [facility] Bacteria Ur Culton 4 Bacteria identified Cx Nom (U) ORGANISM ID: 1 10,000 -<50,000 CFU/ml Mixed microbiota No further workup. Mixed microbiota can be due to???urine???contamination with skin bacteria at time of collection or presence of a long-term urinary catheter. If a new culture is needed, please consider re-education of the patient on proper midstream collection technique or straight catheterization for???urine???collection. Normal [facility] Comment on above: Performed By: #### 6 30-4 ####[facility] [id number] [address] [place] CNOVon 10-20-2024 CNOV Office Visit (INTMWS ) ANNE CHUNG ([id number]) 1985 F Date Time Provider Department 10/20/24 7:40 PM YASSINE LINK INTMWS During your visit today, we recorded the following information about you: Temperature Pulse Respiration Blood pressure 97.6 degrees 68/minute 18/minute 112/70 Weight 68.1 kg Yassine Link MD 10/21/2024 8:30 AM Signed This note was created using [employer]. Subjective Patient presents with: UTI Anne Chung is a 38 year old female, concerned about bladder or kidney infection. She started having dysuria, frequency, urgency 5 days ago with low back pain. She was hydrating well and denied recent febrile illness. She had no fever, chills, or sweats. She denied vaginal discharge. She was scheduled to see her midwife next week (Dr. Cunningham). Review of Systems [...] culture is not consistent, she will see midwife as scheduled. Hydration stressed. We agreed to urinary analgesic. Discussed medication dosage, usage, goals of therapy, and side effects including urine discoloration. - Send urine for culture - UA DIP, URINE (POC) - URINE CULTURE - PHENAZOPYRIDINE 200 MG TABLET 2. Urinary frequency - ICD9: 788.41, ICD10: R35.0 acute - UA DIP, URINE (POC) - URINE CULTURE - PHENAZOPYRIDINE 200 MG TABLET Yassine Link MD Allergies As of Date: 10/20/2024 Noted Allergy Reaction BEES 06/23/2011 10 - Anaphylaxis Comments: Pt had swelling, was given epipen at ER. MORPHINE 11/10/2014 2 - Rash Comments: Left arm turned red when given IV morphine PENICILLINS 02/14/2011 14 - Other: See Comments Comments: Patient refuses due to f (more content not included)... Normal [facility] UA DIP, URINE (POC)on 2023 BILIRUBIN UA (POCT) Small Abnormal Negative [facility] CLARITY U[facility] (POCT) [facility] COLOR UA (POCT) Dark yellow [facility] GLUCOSE UA (POCT) Negative Negative mg/dL [facility] Hemoglobin Ql (U) Negative Negative [facility] Interpretation and review of laboratory results Abnormal [facility] KETONE UA (POCT) Trace Negative mg/dL [facility] LEUKOCYTES UA (POCT) Negative [facility] NITRITE UA (POCT) Negative Negative [facility] PH UA (POCT) 6.0 4.5 - 8.0 [facility] Protein Ql (U) 100 mg/dL Abnormal Negative [facility] SPECIFIC GRAVITY UA (POCT) >=1.030 1.005 - 1.030 [facility] UROBILINOGEN UA (POCT) 0.2 Philomena l E.U./dL [facility] Location:[address], [place], [place], [id number] [place] [address] POINT OF CARE [facility] FT3on 06-12-2024 Free T3 [Mass/Vol] 4.70 pg/mL High 2.30-4.00 [facility] ([place]) Comment on above: Performed By: #### F T4, TSH, FT3 #### [facility] [address] FT4on 06-12-2024 Free T4 [Mass/Vol] 1.31 ng/dL Normal 0.76-1.46 [facility] ([place]) Comment on above: Performed By: #### F T4, TSH, FT3 #### [place] [address] [place], [place] [address] LABORATORYOrdered By: SYSTEM SYSTEM on 06-12-2024 Free T3 [Mass/Vol] 4.70 pg/mL High 2.30 - 4.00 pg/mL AO ADM SS Free T4 [Mass/Vol] 1.31 ng/dL Normal 0.76 - 1.46 ng/dL AO ADM SS TSH Qn 3.56 m[IU]/L Normal 0.36 - 3.74 mcIU/mL AO ADM SS TSHon 06-12-2024 TSH Qn 3.56 m[IU]/L Normal 0.36-3.74 [facility] ([place]) Comment on above: Performed By: #### F T4, TSH, FT3 #### [place] [id number] [place], [place] [address] Absolute lymphocyte countOrd ered By: Kathia Dean on 11-11-2023 Lymphocytes Auto (Unsp spec) [#/Vol] 2.58 10*3/uL 0.83-4.51 [facility] Amorphous sediment detection in urine sediment by light microscopyOrdered By: Kathia Dean on 11-11-2023 Amorphous sediment LM Ql (Urine sed) 2+ [facility] Basophil percentageOrdered B y: Kathia Dean on 11-11-2023 Basophil percentage 0 SEEN /hpf 0-5 [facility] Basophils/100 WBC (Bld) 0.7 % 0-1 [facility] Bilirubin [Mass/Vol] 0.60 mg/dL 0.20-1.00 [facility] Comment on above: For patients on eltr ombopag therapy, use of Dimension [place] TBIL is not recommended. Chloride [Moles/Vol] 110 mmol/L 98-107 [facility] Eosinophils/100 WBC (Bld) 2.0 % 0-5 [facility] Glucose [Mass/Vol] 96 mg/dL 74-106 [facility] Neutrophils (Bld) [#/Vol] 4.4 10*3/uL 2.0-7.7 [facility] Neutrophils/100 WBC (Bld) 57.5 % 47-70 [facility] Potassium [Moles/Vol] 4.0 mmol/L 3.5-5.1 [facility] Comment on above: Slight Hemolysis, Re sult may be falsely increased. Protein [Mass/Vol] 7.8 g/dL 6.4-8.2 [facility] Sodium [Moles/Vol] 140 mmol/L 136-145 [facility] WBC (Bld) [#/Vol] 7.6 10*3/uL 4.4-11.0 [facility] Bilirubin Test strip Ql (U)O rdered By: Kathia Dean on 11-11-2023 Bilirubin Ql (U) Negative Negative [facility] Blood erythrocytes count (nu mber/volume)Ordered By: Kathia Dean on 11-11-2023 RBC (Bld) [#/Vol] 4.64 10*6/uL 4.2-5.4 [facility] Blood hemoglobin measurement (mass/volume)Ordered By: Kathia Dean on 11-11-2023 Hemoglobin (Bld) [Mass/Vol] 14.8 g/dL 12.0-15.0 [facility] Blood lymphocytes/100 leukoc ytesOrdered By: Ely Dianne on 11-11-2023 Lymphocytes/100 WBC (Bld) 33.8 % 19-41 [facility] Blood monocytes/100 leukocyt esOrdered By: Ely Dianne on 11-11-2023 Monocytes/100 WBC (Bld) 5.6 % 0-10 [facility] Blood platelet mean volumeOr dered By: Kathia Dean on 11-11-2023 Platelet mean volume (Bld) [Entitic vol] 10.3 fL 6.2-12.0 [facility] Determination of erythrocyte mean corpuscular volume (MCV)Ordered By: Kathia Dean on 11-11-2023 MCV (RBC) [Entitic vol] 93.3 fL 81-99 [facility] Hematocrit Auto (Bld) [Volum e fraction][facility]: [facility] on 11-11-2023 Hematocrit (Bld) [Volume fraction] 43.3 % 37-47 [facility] Ketones Test strip Ql (U)Ord ered By: Kathia Dean on 11-11-2023 Ketones Ql (U) 15 mg/dl Negative [facility] Laboratory - Chemistry and C hemistry - challengeOrdered By: Kathia Dean on 11-11-2023 ALP [Catalytic activity/Vol] 69 U/L 45-117 [facility] ALT [Catalytic activity/Vol] 22 U/L 13-56 [facility] CO2 [Moles/Vol] 26.0 mmol/L 21.0-32.0 [facility] Globulin (S) [Mass/Vol] 3.8 g/dL 2.2-4.2 [facility] Lipase [Catalytic activity/Vol] 18 U/L 13-75 [facility] Comment on above: Please note:LIPASE r evised reference range effective 23. New Lipase methodology. Expected to produce lower values than the previous assay method. NEW Reference Range: 13 - 75 U/L Urea nitrogen/Creatinine [Mass ratio] 11.8 mg/mg 10-20 [facility] - Hematology and Cell countsOrdered By: Kathia Dean on 11-11-2023 Erythrocyte distribution width (RBC) [Entitic vol] 43.0 fL 35.1-43.9 [facility] Erythrocyte distribution width (RBC) [Ratio] 12.5 % 11.6-14.6 [facility] Immature granulocytes/100 WBC (Bld) 0.400 % 0.0-0.9 [facility] Comment on above: IG% - Immature Granu locytes (promyelocytes, myelocytes and metamyelocytes) > 1% indicates that a LEFT SHIFT is Present. MCH (RBC) [Entitic mass] 31.9 pg 27.0-32.0 [facility] Nucleated RBC/100 WBC (Bld) [Ratio] 0 % 0-5 [facility] MCHC Auto (RBC) [Mass/Vol]Or dered By: Kathia Dean on 11-11-2023 MCHC (RBC) [Mass/Vol] 34.2 g/dL 32-36 [facility] Mucus LM Ql (Urine sed)Order ed By: Kathia Dean on 11-11-2023 Mucus Ql (Urine sed) 0 SEEN /hpf [facility] Nitrite Test strip Ql (U)Ord ered By: Kathia Dean on 11-11-2023 Nitrite Ql (U) Negative Negative [facility] No Panel InformationOrdered By: Kathia Dean on 11-11-2023 Estimated Creatinine Clearance Calc 80.57 ml/min [facility] Estimated GFR (MDRD) Amer 124 mL/min >60 [facility] Comment on above: GFR Calc Estimated GFR (MDRD) Non-Af Amer 102 mL/min >60 [facility] Comment on above: Non- GFR Calc Platelets bldOrdered By: Opal meneses Dianne on 11-11-2023 Platelets (Bld) [#/Vol] 201 10*3/uL 150-450 [facility] Protein Test strip Ql (U)Ord ered By: Kathia Mylesanh on 11-11-2023 Protein Ql (U) 15 mg/dl Negative [facility] Serum or plasma albumin adelita urement (mass/volume)Ordered By: [facility] Dianne on 11-11-2023 Albumin [Mass/Vol] 4.0 g/dL 3.2-5.0 [facility] Serum or plasma albumin/glob ulin mass ratioOrdered By: [facility] My[facility] on 11-11-2023 Albumin/Globulin [Mass ratio] 1.1 {ratio} 0.9-2.4 [facility] Serum or plasma calcium adelita urement (mass/volume)Ordered By: [facility] My[facility]h on 11-11-2023 Calcium [Mass/Vol] 10.0 mg/dL 8.5-10.1 [facility] Serum or plasma creatinine m easurement (mass/volume)Ordered By: [facility] Dianne on 11-11-2023 Creatinine [Mass/Vol] 0.68 mg/dL 0.55-1.02 [facility] Comment on above: The validity of the calculated GFR & GFRAA in patients over 70 years has not been determined. Clinical correlation is essential. Serum or plasma urea nitroge n measurement (mass/volume)Ordered By: [facility] Dianne on 11-11-2023 Urea nitrogen [Mass/Vol] 8 mg/dL 7-18 [facility] Squamous epithelial cells de tection in urine sediment by light microscopyOrdered By: Kathia Dianne on 11-11-2023 Epithelial cells.squamous LM Ql (Urine sed) 0 SEEN /hpf 5-10 [facility] Thin prep Papanicolaou smear with manual screeningOrdered By: Opalus Dean on 11-11-2023 Thin prep Papanicolaou smear with manual screening 15 U/L 15-37 [facility] Comment on above: Slight Hemolysis, Re sult may be falsely increased. Thin prep Papanicolaou smear with manual screening 4 5-15 [facility] Urine blood detectionOrdered By: Remus Unganh on 11-11-2023 RBC Ql (U) Negative Negative [facility] RBC Ql (U) 0 SEEN /hpf 0-5 [facility] Urine clarityOrdered By: Rem us Dianne on 11-11-2023 Clarity (U) Clear Clear [facility] Urine color determinationOrd ered By: Remus Dianne on 11-11-2023 Color (U) Yellow Yellow [facility] Urine glucose detectionOrder ed By: Remus Dianne on 11-11-2023 Glucose Ql (U) Normal mg/dl Normal [facility] Urine leukocyte esterase det ection by dipstickOrdered By: Remus Dianne on 11-11-2023 Leukocyte esterase Test strip Ql (U) Negative Negative [facility] Urine pHOrdered By: Rem Un gur on 11-11-2023 pH (U) 7.0 [pH] 5.0 - 8.0 [facility] Urine sediment bacteria coun t by microscopy (number/high power field)Ordered By: Remus Dean on 11-11-2023 Bacteria LM.HPF (Urine sed) [#/Area] 0 /[HPF] None Seen [facility] Urine specific gravity measu rementOrdered By: Remus Dianne on 11-11-2023 Specific gravity (U) [Rel density] 1.015 1.002-1.03 0 [facility] Urobilinogen Auto test strip Ql (U)Ordered By: Remus Dianne on 11-11-2023 Urobilinogen Ql (U) 1 mg/dl Normal [facility] Absolute lymphocyte countOrd ered By: Christos Storm on 05-27-2023 Lymphocytes Auto (Unsp spec) [#/Vol] 2.39 10*3/uL 0.83-4.51 [facility] Basophil percentageOrdered B y: Christos Storm on 05-27-2023 Basophil percentage 0 SEEN /hpf 0-5 [facility] Basophils/100 WBC (Bld) 0.6 % 0-1 [facility] Bilirubin [Mass/Vol] 0.30 mg/dL 0.20-1.00 [facility] Comment on above: For patients on eltr ombopag therapy, use of Dimension [place] TBIL is not recommended. Chloride [Moles/Vol] 110 mmol/L 98-107 [facility] Eosinophils/100 WBC (Bld) 1.8 % 0-5 [facility] Glucose [Mass/Vol] 102 mg/dL 74-106 [facility] Comment on above: Fasting Glucose resu lt from 100 to 125 mg/dL suggests IMPAIRED HOMEOSTASIS per A.D.A. criteria. Neutrophils (Bld) [#/Vol] 6.4 10*3/uL 2.0-7.7 [facility] Neutrophils/100 WBC (Bld) 67.3 % 47-70 [facility] Potassium [Moles/Vol] 4.3 mmol/L 3.5-5.1 [facility] Comment on above: Slight Hemolysis, Re sult may be falsely increased. Protein [Mass/Vol] 6.6 g/dL 6.4-8.2 [facility] Sodium [Moles/Vol] 139 mmol/L 136-145 [facility] WBC (Bld) [#/Vol] 9.6 10*3/uL 4.4-11.0 [facility] Bilirubin Test strip Ql (U)O rdered By: Christos Storm on 05-27-2023 Bilirubin Ql (U) Negative Negative [facility] Blood erythrocytes count (nu mber/volume)Ordered By: Christos Storm on 05-27-2023 RBC (Bld) [#/Vol] 4.34 10*6/uL 4.2-5.4 [facility] Blood hemoglobin measurement (mass/volume)Ordered By: Christos Storm on 05-27-2023 Hemoglobin (Bld) [Mass/Vol] 14.3 g/dL 12.0-15.0 [facility] Blood lymphocytes/100 leukoc ytesOrdered By: Christos Storm on 05-27-2023 Lymphocytes/100 WBC (Bld) 25.0 % 19-41 [facility] Blood monocytes/100 leukocyt esOrdered By: Christos Storm on 05-27-2023 Monocytes/100 WBC (Bld) 5.0 % 0-10 [facility] Blood platelet mean volumeOr dered By: Christos Storm on 05-27-2023 Platelet mean volume (Bld) [Entitic vol] 10.9 fL 6.2-12.0 [facility] Determination of erythrocyte mean corpuscular volume (MCV)Ordered By: Christos Storm on 05-27-2023 MCV (RBC) [Entitic vol] 95.4 fL 81-99 [facility] Hematocrit Auto (Bld) [Volum e fraction]Ordered By: Christos Storm on 05-27-2023 Hematocrit (Bld) [Volume fraction] 41.4 % 37-47 [facility] Ketones Test strip Ql (U)Ord ered By: Christos Storm on 05-27-2023 Ketones Ql (U) Negative Negative [facility] - Chemistry and C hemistry - challengeOrdered By: Christos Storm on 05-27-2023 ALP [Catalytic activity/Vol] 62 U/L 45-117 [facility] ALT [Catalytic activity/Vol] 24 U/L 13-56 [facility] CO2 [Moles/Vol] 27.0 mmol/L 21.0-32.0 [facility] Globulin (S) [Mass/Vol] 3.2 g/dL 2.2-4.2 [facility] Urea nitrogen/Creatinine [Mass ratio] 16.2 mg/mg 10-20 [facility] - Hematology and Cell countsOrdered By: Christos Storm on 05-27-2023 Erythrocyte distribution width (RBC) [Entitic vol] 43.1 fL 35.1-43.9 [facility] Erythrocyte distribution width (RBC) [Ratio] 12.4 % 11.6-14.6 [facility] Immature granulocytes/100 WBC (Bld) 0.300 % 0.0-0.9 [facility] Comment on above: IG% - Immature Granu locytes (promyelocytes, myelocytes and metamyelocytes) > 1% indicates that a LEFT SHIFT is Present. MCH (RBC) [Entitic mass] 32.9 pg 27.0-32.0 [facility] Nucleated RBC/100 WBC (Bld) [Ratio] 0 % 0-5 [facility] MCHC Auto (RBC) [Mass/Vol]Or dered By: Christos Storm on 05-27-2023 MCHC (RBC) [Mass/Vol] 34.5 g/dL 32-36 [facility] Mucus LM Ql (Urine sed)Order ed By: Christos Storm on 05-27-2023 Mucus Ql (Urine sed) 0 SEEN /hpf [facility] Nitrite Test strip Ql (U)Ord ered By: Christos Storm on 05-27-2023 Nitrite Ql (U) Negative Negative [facility] No Panel InformationOrdered By: Christos Storm on 05-27-2023 Estimated Creatinine Clearance Calc 80.57 ml/min [facility] Estimated GFR (MDRD) Amer 125 mL/min >60 [facility] Comment on above: GFR Calc Estimated GFR (MDRD) Non-Af Amer 103 mL/min >60 [facility] Comment on above: Non- GFR Calc Platelets bldOrdered By: Garrick Storm on 05-27-2023 Platelets (Bld) [#/Vol] 212 10*3/uL 150-450 [facility] Protein Test strip Ql (U)Ord ered By: Christos Storm on 05-27-2023 Protein Ql (U) 30 mg/dl Negative [facility] Serum or plasma albumin adelita urement (mass/volume)Ordered By: Christos Storm on 05-27-2023 Albumin [Mass/Vol] 3.4 g/dL 3.2-5.0 [facility] Serum or plasma albumin/glob ulin mass ratioOrdered By: Christos Storm on 05-27-2023 Albumin/Globulin [Mass ratio] 1.1 {ratio} 0.9-2.4 [facility] Serum or plasma calcium adelita urement (mass/volume)Ordered By: Christos Storm on 05-27-2023 Calcium [Mass/Vol] 9.0 mg/dL 8.5-10.1 [facility] Serum or plasma creatinine m easurement (mass/volume)Ordered By: Christos Storm on 05-27-2023 Creatinine [Mass/Vol] 0.68 mg/dL 0.55-1.02 [facility] Comment on above: The validity of the calculated GFR & GFRAA in patients over 70 years has not been determined. Clinical correlation is essential. Serum or plasma urea nitroge n measurement (mass/volume)Ordered By: Christos Storm on 05-27-2023 Urea nitrogen [Mass/Vol] 11 mg/dL 7-18 [facility] Squamous epithelial cells de tection in urine sediment by light microscopyOrdered By: Christos Storm on 05-27-2023 Epithelial cells.squamous LM Ql (Urine sed) 0-5 SEEN /hpf 5-10 [facility] Thin prep Papanicolaou smear with manual screeningOrdered By: Christos Storm on 05-27-2023 Thin prep Papanicolaou smear with manual screening 14 U/L 15-37 [facility] Comment on above: Slight Hemolysis, Re sult may be falsely increased. Thin prep Papanicolaou smear with manual screening 2 5-15 [facility] Urine blood detectionOrdered By: Christos Storm on 05-27-2023 RBC Ql (U) Negative Negative [facility] RBC Ql (U) 0 SEEN /hpf 0-5 [facility] Urine clarityOrdered By: Garrick Storm on 05-27-2023 Clarity (U) Clear Clear [facility] Urine color determinationOrd ered By: Christos Storm on 05-27-2023 Color (U) Yellow Yellow [facility] Urine glucose detectionOrder ed By: Christos Storm on 05-27-2023 Glucose Ql (U) Normal mg/dl Normal [facility] Urine leukocyte esterase det ection by dipstickOrdered By: Christos Storm on 05-27-2023 Leukocyte esterase Test strip Ql (U) 25 /ul Negative [facility] Urine pHOrdered By: Christos perez on 05-27-2023 pH (U) 8.0 [pH] 5.0 - 8.0 [facility] Urine sediment bacteria coun t by microscopy (number/high power field)Ordered By: Christos Storm on 05-27-2023 Bacteria LM.HPF (Urine sed) [#/Area] 0 /[HPF] None Seen [facility] Urine specific gravity measu rementOrdered By: Christos Storm on 05-27-2023 Specific gravity (U) [Rel density] 1.010 1.002-1.03 0 [facility] Urobilinogen Auto test strip Ql (U)Ordered By: Christos Storm on 05-27-2023 Urobilinogen Ql (U) 1 mg/dl Normal [facility] Absolute lymphocyte countOrd ered By: Dr. Gillis on 09-26-2022 Lymphocytes Auto (Unsp spec) [#/Vol] 4.03 10*3/uL 0.83-4.51 [facility] Amorphous sediment detection in urine sediment by light microscopyOrdered By: Dr. Gillis on 09-26-2022 Amorphous sediment LM Ql (Urine sed) 1+ [facility] Basophil percentageOrdered B y: Dr. Gillis on 09-26-2022 Basophils/100 WBC (Bld) 0.7 % 0-1 [facility] Chloride [Moles/Vol] 107 mmol/L 98-107 [facility] Eosinophils/100 WBC (Bld) 2.1 % 0-5 [facility] Glucose [Mass/Vol] 87 mg/dL 74-106 [facility] Neutrophils (Bld) [#/Vol] 5.8 10*3/uL 2.0-7.7 [facility] Neutrophils/100 WBC (Bld) 53.3 % 47-70 [facility] Potassium [Moles/Vol] 4.3 mmol/L 3.5-5.1 [facility] Sodium [Moles/Vol] 138 mmol/L 136-145 [facility] WBC (Bld) [#/Vol] 11.0 10*3/uL 4.4-11.0 [facility] Basophil percentage 0-5 SEEN /hpf 0-5 [facility] Bilirubin Test strip Ql (U)O rdered By: Dr. Gillis on 09-26-2022 Bilirubin Ql (U) Negative Negative [facility] Blood erythrocytes count (nu mber/volume)Ordered By: Dr. Gillis on 09-26-2022 RBC (Bld) [#/Vol] 4.73 10*6/uL 4.2-5.4 [facility] Blood hemoglobin measurement (mass/volume)Ordered By: Dr. Gillis on 09-26-2022 Hemoglobin (Bld) [Mass/Vol] 15.7 g/dL 12.0-15.0 [facility] Blood lymphocytes/100 leukoc ytesOrdered By: Dr. Gillis on 09-26-2022 Lymphocytes/100 WBC (Bld) 36.8 % 19-41 [facility] Blood monocytes/100 leukocyt esOrdered By: Dr. Gillis on 09-26-2022 Monocytes/100 WBC (Bld) 6.2 % 0-10 [facility] Blood platelet adequacy dete ction by light microscopyOrdered By: Dr. Gillis on 09-26-2022 Platelets LM Ql (Bld) ADEQUATE ADEQ [facility] Blood platelet mean volumeOr dered By: Dr. Gillis on 09-26-2022 Platelet mean volume (Bld) [Entitic vol] 11.0 fL 6.2-12.0 [facility] Determination of erythrocyte mean corpuscular volume (MCV)Ordered By: Dr. Gillis on 09-26-2022 MCV (RBC) [Entitic vol] 94.3 fL 81-99 [facility] Hematocrit Auto (Bld) [Volum e fraction]Ordered By: Dr. Gillis on 09-26-2022 Hematocrit (Bld) [Volume fraction] 44.6 % 37-47 [facility] Ketones Test strip Ql (U)Ord ered By: Dr. Gillis on 09-26-2022 Ketones Ql (U) Negative Negative [facility] - Chemistry and C hemistry - challengeOrdered By: Dr. Gillis on 09-26-2022 CO2 [Moles/Vol] 25.0 mmol/L 21.0-32.0 [facility] Urea nitrogen/Creatinine [Mass ratio] 16.7 mg/mg 10-20 [facility] - Hematology and Cell countsOrdered By: Dr. Gillis on 09-26-2022 Erythrocyte distribution width (RBC) [Entitic vol] 41.7 fL 35.1-43.9 [facility] Erythrocyte distribution width (RBC) [Ratio] 12.0 % 11.6-14.6 [facility] Immature granulocytes/100 WBC (Bld) 0.900 % 0.0-0.9 [facility] Comment on above: IG% - Immature Granu locytes (promyelocytes, myelocytes and metamyelocytes) > 1% indicates that a LEFT SHIFT is Present. MCH (RBC) [Entitic mass] 33.2 pg 27.0-32.0 [facility] Nucleated RBC/100 WBC (Bld) [Ratio] 0 % 0-5 [facility] MCHC Auto (RBC) [Mass/Vol]Or dered By: Dr. Gillis on 09-26-2022 MCHC (RBC) [Mass/Vol] 35.2 g/dL 32-36 [facility] Mucus LM Ql (Urine sed)Order ed By: Dr. Gillis on 09-26-2022 Mucus Ql (Urine sed) 0 SEEN /hpf [facility] Nitrite Test strip Ql (U)Ord ered By: Dr. Gillis on 09-26-2022 Nitrite Ql (U) Negative Negative [facility] No Panel InformationOrdered By: Dr. Gillis on 09-26-2022 Estimated Creatinine Clearance Calc 92.21 ml/min [facility] Estimated GFR (MDRD) Amer 145 mL/min >60 [facility] Comment on above: GFR Calc Estimated GFR (MDRD) Non-Af Amer 120 mL/min >60 [facility] Comment on above: Non- GFR Calc Platelets bldOrdered By: Dr. Gillis on 09-26-2022 Platelets (Bld) [#/Vol] 182 10*3/uL 150-450 [facility] Protein Test strip Ql (U)Ord ered By: Dr. Gillis on 09-26-2022 Protein Ql (U) Negative Negative [facility] RBC morphologyOrdered By: Dr Benita Gillis on 09-26-2022 RBC morphology finding Nom (Bld) NORM C+C NORMAL NORM C&C [facility] Serum or plasma calcium adelita urement (mass/volume)Ordered By: Dr. Gillis on 09-26-2022 Calcium [Mass/Vol] 9.0 mg/dL 8.5-10.1 [facility] Serum or plasma creatinine m easurement (mass/volume)Ordered By: Dr. Gillis on 09-26-2022 Creatinine [Mass/Vol] 0.60 mg/dL 0.55-1.02 [facility] Comment on above: The validity of the calculated GFR & GFRAA in patients over 70 years has not been determined. Clinical correlation is essential. Serum or plasma urea nitroge n measurement (mass/volume)Ordered By: Dr. Gilils on 09-26-2022 Urea nitrogen [Mass/Vol] 10 mg/dL 7-18 [facility] Squamous epithelial cells de tection in urine sediment by light microscopyOrdered By: Dr. Gillis on 09-26-2022 Epithelial cells.squamous LM Ql (Urine sed) 5-10 SEEN /hpf 5-10 [facility] Thin prep Papanicolaou smear with manual screeningOrdered By: Dr. Gillis on 09-26-2022 Thin prep Papanicolaou smear with manual screening 6 5-15 [facility] Urine blood detectionOrdered By: Dr. Gillis on 09-26-2022 RBC Ql (U) Negative Negative [facility] RBC Ql (U) 0 SEEN /hpf 0-5 [facility] Urine clarityOrdered By: Dr. Gillis on 09-26-2022 Clarity (U) Sl. Cloudy Clear [facility] Urine color determinationOrd ered By: Dr. Gillis on 09-26-2022 Color (U) Yellow Yellow [facility] Urine glucose detectionOrder ed By: Dr. Gillis on 09-26-2022 Glucose Ql (U) Normal mg/dl Normal [facility] Urine leukocyte esterase det ection by dipstickOrdered By: Dr. Gillis on 09-26-2022 Leukocyte esterase Test strip Ql (U) Negative Negative [facility] Urine pHOrdered By: Dr. Harvey cox on 09-26-2022 pH (U) 8.0 [pH] 5.0 - 8.0 [facility] Urine sediment bacteria coun t by microscopy (number/high power field)Ordered By: Dr. Gillis on 09-26-2022 Bacteria LM.HPF (Urine sed) [#/Area] RARE /hpf None Seen [facility] Urine specific gravity measu rementOrdered By: Dr. Gillis on 09-26-2022 Specific gravity (U) [Rel density] 1.015 1.002-1.03 0 [facility] Urobilinogen Auto test strip Ql (U)Ordered By: Dr. Gillis on 09-26-2022 Urobilinogen Ql (U) Normal mg/dl Normal [facility] UA DIP, URINE (POC)on 2021 BILIRUBIN UA (POCT) Negative Negative [facility] CLARITY UA (POCT) Slightly Cloudy Cl [facility] COLOR UA (POCT) Yellow [facility] GLUCOSE UA (POCT) Negative Negative mg/dL [facility] HEMOGLOBIN/BLOOD UA (POCT) Negative Negative [facility] KETONE UA (POCT) Negative Negative mg/dL [facility] LEUKOCYTES UA (POCT) Trace Abnormal [facility] NITRITE UA (POCT) Negative Negative [facility] PH UA (POCT) 6.5 4.5 - 8.0 [facility] Protein Ql (U) Negative Negative mg/dL [facility] SPECIFIC GRAVITY UA (POCT) 1.025 1.005 - 1.030 [facility] UROBILINOGEN UA (POCT) 0.2 E.U./dL Philomena l E.U./dL [facility] Basophil percentageon 2021 Basophil percentage 0-5 SEEN /hpf 0-5 [facility] Work Phone: Bilirubin Test strip Ql (U)o n 07-27-2022 Bilirubin Ql (U) Negative Negative [facility] Work Phone: Glucose Glucometer (BldC) [M ass/Vol]on 07-27-2022 Glucose [Mass/Vol] 90 mg/dL 74-106 [facility] Work Phone: Comment on above: MANAGEMENT OF PATIEN T CARE PER NURSING PROTOCOL Ketones Test strip Ql (U)on 07-27-2022 Ketones Ql (U) Negative Negative [facility] Work Phone: Mucus LM Ql (Urine sed)on Mucus Ql (Urine sed) 0 SEEN /hpf [facility] Work Phone: Nitrite Test strip Ql (U)on 07-27-2022 Nitrite Ql (U) Negative Negative [facility] Work Phone: Protein Test strip Ql (U)on 07-27-2022 Protein Ql (U) Negative Negative [facility] Work Phone: Squamous epithelial cells de tection in urine sediment by light microscopyon 07-27-2022 Epithelial cells.squamous LM Ql (Urine sed) 0-5 SEEN /hpf 5-10 [facility] Work Phone: Urine blood detectionon RBC Ql (U) Negative Negative [facility] Work Phone: RBC Ql (U) 0 SEEN /hpf 0-5 [facility] Work Phone: Urine clarityon 07-27-2022 Clarity (U) Clear Clear [facility] Work Phone: Urine color determinationon 07-27-2022 Color (U) Yellow Yellow [facility] Work Phone: Urine glucose detectionon Glucose Ql (U) Normal mg/dl Normal [facility] Work Phone: Urine leukocyte esterase det ection by dipstickon 07-27-2022 Leukocyte esterase Test strip Ql (U) Negative Negative [facility] Work Phone: Urine pHon 07-27-2022 pH (U) 6.0 [pH] 5.0 - 8.0 [facility] Work Phone: Urine sediment bacteria coun t by microscopy (number/high power field)on 07-27-2022 Bacteria LM.HPF (Urine sed) [#/Area] 4 /[HPF] None Seen [facility] Work Phone: Urine specific gravity measu rementon 07-27-2022 Specific gravity (U) [Rel density] 1.020 1.002-1.03 0 [facility] Work Phone: Urobilinogen Auto test strip Ql (U)on 07-27-2022 Urobilinogen Ql (U) Normal mg/dl Normal [facility] Work Phone: Absolute lymphocyte counton 05-30-2022 Lymphocytes Auto (Unsp spec) [#/Vol] 3.22 10*3/uL 0.83-4.51 [facility] Work Phone: Basophil percentageon 2021 Basophils/100 WBC (Bld) 0.7 % 0-1 [facility] Work Phone: Bilirubin [Mass/Vol] 0.20 mg/dL 0.20-1.00 [facility] Work Phone: Comment on above: For patients on eltr ombopag therapy, use of Dimension [place] TBIL is not recommended. Chloride [Moles/Vol] 111 mmol/L 98-107 [facility] Work Phone: Eosinophils/100 WBC (Bld) 2.0 % 0-5 [facility] Work Phone: Glucose [Mass/Vol] 89 mg/dL 74-106 [facility] Work Phone: Neutrophils (Bld) [#/Vol] 4.8 10*3/uL 2.0-7.7 [facility] Work Phone: Neutrophils/100 WBC (Bld) 54.5 % 47-70 [facility] Work Phone: Potassium [Moles/Vol] 4.2 mmol/L 3.5-5.1 [facility] Work [facility]: Protein [Mass/Vol] 7.1 g/dL 6.4-8.2 [facility] Work Phone: Sodium [Moles/Vol] 141 mmol/L 136-145 [facility] Work Phone: WBC (Bld) [#/Vol] 8.8 10*3/uL 4.4-11.0 [facility] Work Phone: Blood erythrocytes count (nu mber/volume)on 05-30-2022 RBC (Bld) [#/Vol] 4.69 10*6/uL 4.2-5.4 [facility] Work Phone: Blood hemoglobin measurement (mass/volume)on 05-30-2022 Hemoglobin (Bld) [Mass/Vol] 14.9 g/dL 12.0-15.0 [facility] Work Phone: Blood lymphocytes/100 leukoc yteson 05-30-2022 Lymphocytes/100 WBC (Bld) 36.6 % 19-41 [facility] Work Phone: Blood monocytes/100 leukocyt eson 05-30-2022 Monocytes/100 WBC (Bld) 5.9 % 0-10 [facility] Work Phone: Blood platelet mean volumeon 05-30-2022 Platelet mean volume (Bld) [Entitic vol] 11.2 fL 6.2-12.0 [facility] Work Phone: Determination of erythrocyte mean corpuscular volume (MCV)on 05-30-2022 MCV (RBC) [Entitic vol] 95.5 fL 81-99 [facility] Work Phone: Direct bilirubinon 2 Bilirubin.direct [Mass/Vol] 0.10 mg/dL 0.00-0.30 [facility] Work Phone: Hematocrit Auto (Bld) [Volum e fraction]on 05-30-2022 Hematocrit (Bld) [Volume fraction] 44.8 % 37-47 [facility] Work Phone: Laboratory - Chemistry and C hemistry - challengeon 05-30-2022 ALP [Catalytic activity/Vol] 77 U/L 45-117 [facility] Work Phone: ALT [Catalytic activity/Vol] 23 U/L 13-56 [facility] Work Phone: CO2 [Moles/Vol] 28.0 mmol/L 21.0-32.0 [facility] Work Phone: Globulin (S) [Mass/Vol] 3.4 g/dL 2.2-4.2 [facility] Work Phone: Lipase [Catalytic activity/Vol] 77 U/L 73-393 [facility] Work Phone: Urea nitrogen/Creatinine [Mass ratio] 15.2 mg/mg 10-20 [facility] Work Phone: Laboratory - Hematology and Cell countson 05-30-2022 Erythrocyte distribution width (RBC) [Entitic vol] 44.1 fL 35.1-43.9 [facility] Work Phone: Erythrocyte distribution width (RBC) [Ratio] 12.5 % 11.6-14.6 [facility] Work Phone: Immature granulocytes/100 WBC (Bld) 0.300 % 0.0-0.9 [facility] Work Phone: Comment on above: IG% - Immature Granu locytes (promyelocytes, myelocytes and metamyelocytes) > 1% indicates that a LEFT SHIFT is Present. MCH (RBC) [Entitic mass] 31.8 pg 27.0-32.0 [facility] Work Phone: Nucleated RBC/100 WBC (Bld) [Ratio] 0 % 0-5 [facility] Work Phone: MCHC Auto (RBC) [Mass/Vol]on 05-30-2022 MCHC (RBC) [Mass/Vol] 33.3 g/dL 32-36 [facility] Work Phone: No Panel Informationon 05-30 Estimated Creatinine Clearance Calc 83.83 ml/min [facility] Work Phone: Estimated GFR (MDRD) Amer 130 mL/min >60 [facility] Work Phone: Comment on above: GFR Calc Estimated GFR (MDRD) Non-Af Amer 108 mL/min >60 [facility] Work Phone: Comment on above: Non- GFR Calc Platelets bldon 05-30-2022 Platelets (Bld) [#/Vol] 194 10*3/uL 150-450 [facility] Work Phone: Serum or plasma albumin adelita urement (mass/volume)on 05-30-2022 Albumin [Mass/Vol] 3.7 g/dL 3.2-5.0 [facility] Work Phone: Serum or plasma calcium adelita urement (mass/volume)on 05-30-2022 Calcium [Mass/Vol] 9.2 mg/dL 8.5-10.1 [facility] Work Phone: Serum or plasma creatinine m easurement (mass/volume)on 05-30-2022 Creatinine [Mass/Vol] 0.66 mg/dL 0.55-1.02 [facility] Work Phone: Comment on above: The validity of the calculated GFR & GFRAA in patients over 70 years has not been determined. Clinical correlation is essential. Serum or plasma urea nitroge n measurement (mass/volume)on 05-30-2022 Urea nitrogen [Mass/Vol] 10 mg/dL 7-18 [facility] Work Phone: Thin prep Papanicolaou smear with manual screeningon 05-30-2022 Thin prep Papanicolaou smear with manual screening 11 U/L 15-37 [facility] Work Phone: Thin prep Papanicolaou smear with manual screening 2 5-15 [facility] Work Phone: XR Chest PA and Lateralon IMPRESSION: No acute radiographic abnormality. Non Emergency Services Ambulance Driver: JUSTIN Transcribe Date/Time: Jun 13 2021 11:47A Dictated by : SAILAJA MARTINEZ MD This examination was interpreted and the report reviewed and electronically signed by: SAILAJA MARTINEZ MD on Jun 13 2021 11:48AM [facility] DIVISION OF RADIOLOGY * * *Final Report* * * DATE OF EXAM: Jun 13 2021 11:44AM WOX 5291 - XR CHEST 2V FRONTAL/LAT / PROCEDURE REASON: Cough * * * * Physician Interpretation * * * * EXAMINATION: CHEST RADIOGRAPH (2 VIEW FRONTAL & LATERAL) CLINICAL HISTORY: Cough MQ: XC2_6 EXAM DATE/TIME: 06/13/2021 11:44 AM COMPARISON: 10/01/2018 RESULT: Lines, tubes, and devices: None. Lungs and pleura: No focal consolidation, pleural effusion or pneumothorax. Cardiomediastinal silhouette: Within normal limits. Bones and soft tissues: No acute osseous abnormality. DIVISION OF RADIOLOGY Provider, [facility] - 06/13/2021 * * *Final Report* * * DATE OF EXAM: Jun 13 2021 11:44AM WOX 5291 - XR CHEST 2V FRONTAL/LAT / PROCEDURE REASON: Cough * * * * Physician Interpretation * * * * EXAMINATION: CHEST RADIOGRAPH (2 VIEW FRONTAL & LATERAL) CLINICAL HISTORY: Cough MQ: XC2_6 EXAM DATE/TIME: 06/13/2021 11:44 AM COMPARISON: 10/01/2018 RESULT: Lines, tubes, and devices: None. Lungs and pleura: No focal consolidation, pleural effusion or pneumothorax. Cardiomediastinal silhouette: Within normal limits. Bones and soft tissues: No acute osseous abnormality. IMPRESSION IMPRESSION: No acute radiographic abnormality. Non Emergency Services Ambulance Driver: JUSTIN Transcribe Date/Time: Jun 13 2021 11:47A Dictated by : SAILAJA MARTINEZ MD This examination was interpreted and the report reviewed and electronically signed by: SAILAJA MARTINEZ MD on Jun 13 2021 11:48AM EST [facility] Radiology Study observation (narrative) [facility] XR Chest PA and LateralOrder ed By: [facility] Provider on 06-13-2021 [facility] XR Knee - left 4 Viewson IMPRESSION: No acute fracture or malalignment. Non Emergency Services Ambulance Driver: JUSTIN Transcribe Date/Time: Dec 15 2020 12:14P Dictated by : MILAGROS WILSON MD This examination was interpreted and the report reviewed and electronically signed by: MILAGROS WILSON MD on Dec 15 2020 12:15PM [facility] DIVISION OF RADIOLOGY * * *Final Report* * * DATE OF EXAM: Dec 15 2020 12:11PM WOX 5202 - XR KNEE 4V AP/PA BOTH+LAT/ALLISON LT / PROCEDURE REASON: Knee injury, left, initial encounter * * * * Physician Interpretation * * * * LEFT KNEE X-RAY SERIES HISTORY: Knee injury, left, initial encounter TECHNIQUE: 4 views of the left knee and 3 views of the right knee COMPARISON: None available. RESULT: No fracture, dislocation or destructive changes. Joint spaces and articular surfaces are preserved. DIVISION OF RADIOLOGY [facility] * * *Final Report* * * DATE OF EXAM: Dec 15 2020 12:11PM WOX 5202 - XR KNEE 4V AP/PA BOTH+LAT/ALLISON LT / PROCEDURE REASON: Knee injury, left, initial encounter * * * * Physician Interpretation * * * * LEFT KNEE X-RAY SERIES HISTORY: Knee injury, left, initial encounter TECHNIQUE: 4 views of the left knee and 3 views of the right knee COMPARISON: None available. RESULT: No fracture, dislocation or destructive changes. Joint spaces and articular surfaces are preserved. IMPRESSION IMPRESSION: No acute fracture or malalignment. Non Emergency Services Ambulance Driver: PSCB Transcribe Date/Time: Dec 15 2020 12:14P Dictated by : MILAGROS WILSON MD This examination was interpreted and the report reviewed and electronically signed by: MILAGROS WILSON MD on Dec 15 2020 12:15PM EST [facility] Radiology Study observation (narrative) [facility] XR Knee - left 4 ViewsOrdere d By: [facility] Provider on 12-15-2020 [facility] OBSOLETEon 10-16-2018 OBSOLETE Refill (MEPRAD) -------HATTIEANNE Debbie ([id number]) 1985 FDate Time Provider Pxohgujiqp97/21/18 HADLEY BOWSER During your visit today, we recorded the following information about you:Hadley Bowser MD 10/16/2018 2:35 PM SignedSee 10/16/2018 [employer] message.Allergies As of Date: 10/16/2018 Noted Allergy ReactionBEES 06/23/2011 10 - Anaphylaxis Comments: Pt had swelling, was given epipen at ER.MORPHINE 11/10/2014 2 - Rash Comments: Left arm turned red when given IV morphinePENICILLINS 02/14/2011 14 - Other: See Comments Comments: Patient refuses due to family allergy to PCN.VALIUM (DIAZEPAM) 08/03/2015 4 - Hives Comments: Hives on chest only.TESSALON (BENZONATATE) 11/03/2017 2 - RashDate Reviewed: 09/27/2018Reviewed by: Hadley Bowser - Fully AssessedReason for Visit: Refill Request [94]Order(s):fluticasone-vi lanterol (BREO ELLIPTA) 100-25 mcg/dose inhalerInhale 1 Inhalation as instructed once daily.Disp: 1 EachRfl: 1Prescriptions as of 10/16/2018 Sig: FLUTICASONE 100 MCG-VILANTERO* [...] TABLET Take 1 tablet by mouth once d*Problem List As Of Date 10/16/2018 Noted Resolved [...] [I73.00] INVALID FOR* Abnormal mammogram [R92.8] INVALID FOR*Prescriptions ordered this encounter Disp Refills Start End FLUTICASONE 100 MCG-VILANTEROL 25 MC* 1 Ea* 1 10/16/2018 Route: INHALATION Sig: Inhale 1 Inhalation as instructed once daily.Medications Discontinued During This Encounter mometasone (ASMANEX) 220 mcg (60 dos* 1 In* 5 09/12/2018 10/16/2018 Route: INHALATION Sig: Inhale 1 Puff as instructed twice daily. Disc: Clinical DecisionEncounter Number: [id number] Status:Closed by HADLEY BOWSER MD on 10/16/18 [facility] Culture, urine Bacteria identified Cx Nom (U) Klebsiella pneumoniae sp pneum [facility] Work Phone: Vital Signs Date Time Vital Sign Value Performing Clinician Facility 08-23-2025 13:11-0400 Body height 152.[address] Yassine Link MD Work Phone: [facility] 08-23-2025 13:11-0400 Body mass index (BMI) [Ratio] 25.9 kg/m2 Dr. Yassine Link MD Work Phone: [facility] 08-23-2025 13:11-0400 Body temperature 98.1 [degF] Dr. Yassine Link MD Work Phone: [facility] 08-23-2025 13:11-040 Body weight 60.[address] Yassine Link MD Work Phone: [facility] 08-23-2025 13:11-0400 Diastolic blood pressure 70 mm[Hg] Dr. Yassine Link MD Work Phone: [facility] 08-23-2025 13:11-0400 Heart rate 80 /min Dr. Yassine Link MD Work Phone: [facility] 08-23-2025 13:11-0400 Respiratory rate 12 /min Dr. Yassine Link MD Work Phone: [facility] 08-23-2025 13:11-0400 SaO2% (BldA) [Mass fraction] 97 % Dr. Yassine Link MD Work Phone: [facility] 08-23-2025 13:11-0400 Systolic blood pressure 104 mm[Hg] Dr. Yassine Link MD Work Phone: [facility] 07-28-2025 09:38-0400 Body mass index (BMI) [Ratio] 25.4 kg/m2 [employer] Work Phone: [facility] 07-28-2025 09:38-0400 Body weight 59 kg [employer] Work Phone: [facility] 07-28-2025 09:38-0400 Diastolic blood pressure 60 mm[Hg] [employer] Work Phone: [facility] 07-28-2025 09:38-0400 Heart rate 82 /min [employer] Work Phone: [facility] 07-28-2025 09:38-0400 Respiratory rate 16 /min [employer] Work Phone: [facility] 07-28-2025 09:38-0400 Systolic blood pressure 100 mm[Hg] [employer] Work Phone: [facility] 04-24-2025 15:34-0400 Body mass index (BMI) [Ratio] 26.74 kg/m2 [employer] Work Phone: [facility] 04-24-2025 15:34-0400 Body weight 62.1 kg [employer] Work Phone: [facility] 04-24-2025 15:34-0400 Diastolic blood pressure 60 mm[Hg] [employer] Work Phone: [facility] 04-24-2025 15:34-0400 Heart rate 71 /min [employer] Work Phone: [facility] 04-24-2025 15:34-0400 Respiratory rate 16 /min [employer] Work Phone: [facility] 04-24-2025 15:34-0400 Systolic blood pressure 98 mm[Hg] [employer] Work Phone: [facility] 03-02-2025 08:12-0400 Body mass index (BMI) [Ratio] 27.56 kg/m2 [employer] Work Phone: [facility] 03-02-2025 08:12-0400 Body weight 64 kg [employer] Work Phone: [facility] 03-02-2025 08:12-0400 Diastolic blood pressure 69 mm[Hg] [employer] Work Phone: [facility] 03-02-2025 08:12-0400 Heart rate 74 /min [employer] Work Phone: [facility] 03-02-2025 08:12-0400 Respiratory rate 20 /min [employer] Work Phone: [facility] 03-02-2025 08:12-0400 SaO2% (BldA) [Mass fraction] 99 % [employer] Work Phone: [facility] 03-02-2025 08:12-0400 Systolic blood pressure 108 mm[Hg] [employer] Work Phone: [facility] 02-23-2025 09:43-0400 Body mass index (BMI) [Ratio] 27.99 kg/m2 [employer] Work Phone: [facility] 02-23-2025 09:43-0400 Body weight 65 kg [employer] Work Phone: [facility] 02-23-2025 09:43-0400 Diastolic blood pressure 65 mm[Hg] [employer] MA[employer] Work Phone: [facility] 02-23-2025 09:43-0400 Heart rate 80 /min [employer] Work Phone: [facility] 02-23-2025 09:43-0400 Respiratory rate 16 /min [employer] Work Phone: [facility] 02-23-2025 09:43-0400 SaO2% (BldA) [Mass fraction] 99 % [employer] MA[employer] Work Phone: [facility] 02-23-2025 09:43-0400 Systolic blood pressure 98 mm[Hg] [employer] MA[employer] Work Phone: [facility] 02-16-2025 07:02-0400 Body mass index (BMI) [Ratio] 27.13 kg/m2 [employer] Work Phone: [facility] 02-16-2025 07:02-0400 Body temperature 99.9 [degF] [employer] Work Phone: [facility] 02-16-2025 07:02-0400 Body weight 63 kg [employer] Work Phone: [facility] 02-16-2025 07:02-0400 Diastolic blood pressure 61 mm[Hg] [employer] MA[employer] Work Phone: [facility] 02-16-2025 07:02-0400 Heart rate 98 /min [employer] Work Phone: [facility] 02-16-2025 07:02-0400 Respiratory rate 16 /min [employer] Work Phone: [facility] 02-16-2025 07:02-0400 SaO2% (BldA) [Mass fraction] 95 % [employer] Work Phone: [facility] 02-16-2025 07:02-0400 Systolic blood pressure 99 mm[Hg] [employer] Work Phone: [facility] 02-13-2025 18:41-0400 Body temperature 99 [degF] Dr. Yassine Link MD Work Phone: [facility] 02-13-2025 18:41-0400 Diastolic blood pressure 59 mm[Hg] Dr. Yassine Link MD Work Phone: 2(957)[phone] [place] [address] 02-13-2025 18:41-0400 Heart rate 105 /min Dr. Yassine Link MD Work Phone: 8(671)[phone] [place] [address] 02-13-2025 18:41-0400 Respiratory rate 20 /min Dr. Yassine Link MD Work Phone: 1(890)[phone] [place] [address] 02-13-2025 18:41-0400 SaO2% (BldA) [Mass fraction] 99 % Dr. Yassine Link MD Work Phone: [facility] 02-13-2025 18:41-0400 Systolic blood pressure 92 mm[Hg] Dr. Yassine Link MD Work Phone: 8(067)[phone] [place] [address] 02-13-2025 14:45-0400 Body height 152.[address] Yassine Link MD Work Phone: 3(453)[phone] [place] [address] 02-13-2025 14:45-0400 Body mass index (BMI) [Ratio] 27.3 kg/m2 Dr. Yassine Link MD Work Phone: 4(391)[phone] [place] [address] 02-13-2025 14:45-0400 Body weight 63.[address] Yassine Link MD Work Phone: 8(402)[phone] [place] [address] 02-13-2025 14:08-0400 Body height 152.4 cm Yassine Link MD Work Phone: [facility] 02-13-2025 14:08-0400 Body mass index (BMI) [Ratio] 27.34 kg/m2 Yassine Link MD Work Phone: [facility] 02-13-2025 14:08-0400 Body temperature 99 [degF] Yassine Link MD Work Phone: [facility] 02-13-2025 14:08-0400 Body weight 63.5 kg Yassine Link MD Work Phone: [facility] 02-13-2025 14:08-0400 Diastolic blood pressure 44 mm[Hg] Yassine Link MD Work Phone: [facility] 02-13-2025 14:08-0400 Heart rate 103 /min Yassine Link MD Work Phone: [facility] 02-13-2025 14:08-0400 SaO2% (BldA) [Mass fraction] 99 % Yassine Link MD Work Phone: [facility] 02-13-2025 14:08-0400 Systolic blood pressure 80 mm[Hg] Yassine Link MD Work Phone: [facility] 01-27-2025 10:40-0500 Body mass index (BMI) [Ratio] 28.16 kg/m2 Mayda Madrigal MD Work Phone: [facility] 01-27-2025 10:40-0500 Body weight 65.41 kg Mayda Madrigal MD Work Phone: [facility] 01-27-2025 10:40-0500 Diastolic blood pressure 70 mm[Hg] Mayda Madrigal MD Work Phone: [facility] 01-27-2025 10:40-0500 Heart rate 79 /min Mayda Madrigal MD Work Phone: [facility] 01-27-2025 10:40-0500 SaO2% (BldA) [Mass fraction] 99 % Mayda Madrigal MD Work Phone: [facility] 01-27-2025 10:40-0500 Systolic blood pressure 112 mm[Hg] Mayda Madrigal MD Work Phone: [facility] 01-26-2025 19:23-0500 Body mass index (BMI) [Ratio] 28.76 kg/m2 Yassine Link MD Work Phone: [facility] 01-26-2025 19:23-0500 Body temperature 98.91 [degF] Yassine Link MD Work Phone: [facility] 01-26-2025 19:23-0500 Body weight 66.8 kg Yassine Link MD Work Phone: [facility] 01-26-2025 19:23-0500 Diastolic blood pressure 64 mm[Hg] Yassine Link MD Work Phone: [facility] 01-26-2025 19:23-0500 Heart rate 88 /min Yassine Link MD Work Phone: [facility] 01-26-2025 19:23-0500 Respiratory rate 20 /min Yassine Link MD Work Phone: [facility] 01-26-2025 19:23-0500 Systolic blood pressure 110 mm[Hg] Yassine Link MD Work Phone: [facility] 01-20-2025 13:56-0500 Body height 152.4 cm Mayda Madrigal MD Work Phone: [facility] 01-20-2025 13:56-0500 Body mass index (BMI) [Ratio] 28.71 kg/m2 Mayda Madrigal MD Work Phone: [facility] 01-20-2025 13:56-0500 Body weight 66.68 kg Mayda Madrigal MD Work Phone: [facility] 01-20-2025 13:56-0500 Diastolic blood pressure 76 mm[Hg] Mayda Madrigal MD Work Phone: [facility] 01-20-2025 13:56-0500 Heart rate 60 /min Mayda Madrigal MD Work Phone: [facility] 01-20-2025 13:56-0500 SaO2% (BldA) [Mass fraction] 100 % Mayda Madrigal MD Work Phone: [facility] 01-20-2025 13:56-0500 Systolic blood pressure 106 mm[Hg] Mayda Madrigal MD Work Phone: [facility] 01-15-2025 18:17-0500 Blood Pressure Location ULISES FROMMELT DO [facility] 01-15-2025 18:17-0500 Blood Pressure Method ULISES FROMMELT D O [facility] 01-15-2025 18:17-0500 Diastolic Blood Pressure Non-Invasive 62 mm[Hg] ULISES FROMMELT DO [facility] 01-15-2025 18:17-0500 Heart rate 72 /min ULISES FROMMELT DO [facility] 01-15-2025 18:17-0500 Respiratory rate 18 /min ULISES FROMMELT DO [facility] 01-15-2025 18:17-0500 Systolic Blood Pressure Non-Invasive 104 mm[Hg] ULISES FROMMELT DO [facility] 01-15-2025 15:15-0500 Blood Pressure Location ULISES FROMMELT DO [facility] 01-15-2025 15:15-0500 Blood Pressure Method ULISES FROMMELT D O [facility] 01-15-2025 15:15-0500 Body temperature 98.6 [degF] ULISES FROMMELT DO [facility] 01-15-2025 15:15-0500 Diastolic Blood Pressure Non-Invasive 66 mm[Hg] ULISES HERRERA DO [facility] 01-15-2025 15:15-0500 Heart rate 88 /min ULISES HERRERA DO [facility] 01-15-2025 15:15-0500 Respiratory rate 18 /min ULISES HERRERA DO [facility] 01-15-2025 15:15-0500 Systolic Blood Pressure Non-Invasive 100 mm[Hg] ULISES HERRERA DO [facility] 01-15-2025 13:19-0500 Body height 151.[address] Yassine Link MD Work Phone: 5(942)[phone] [place] [address] 01-15-2025 13:19-0500 Body mass index (BMI) [Ratio] 28.6 kg/m2 Dr. Yassine Link MD Work Phone: 8(241)[phone] [place] [address] 01-15-2025 13:19-0500 Body temperature 98 [degF] Dr. Yassine Link MD Work Phone: 6(338)[phone] [place] [address] 01-15-2025 13:19-0500 Body weight 66.[address] Yassine Link MD Work Phone: 8(038)[phone] [place] [address] 01-15-2025 13:19-0500 Diastolic blood pressure 64 mm[Hg] Dr. Yassine Link MD Work Phone: 3(828)[phone] [place] [address] 01-15-2025 13:19-0500 Heart rate 91 /min Dr. Yassine Link MD Work Phone: 7(264)[phone] [place] [address] 01-15-2025 13:19-0500 Respiratory rate 16 /min Dr. Yassine Link MD Work Phone: 0(754)[phone] [place] [address] 01-15-2025 13:19-0500 SaO2% (BldA) [Mass fraction] 99 % Dr. Yassine Link MD Work Phone: [facility] 01-15-2025 13:19-0500 Systolic blood pressure 104 mm[Hg] Dr. Yassine Link MD Work Phone: [facility] 01-08-2025 11:03-0500 Body height 152.4 cm Mallory Avinash SLOTS MANAGER.[employer]S SYSTEMS ENGINEER Work Phone: [facility] 01-08-2025 11:03-0500 Body mass index (BMI) [Ratio] 28.71 kg/m2 Mallory Avinash SLOTS MANAGER.APPLICATIONS SYSTEMS ENGINEER Work Phone: [facility] 01-08-2025 11:03-0500 Body temperature 97.3 [degF] Mallory Avinash SLOTS MANAGER.APPLICATIONS SYSTEMS ENGINEER Work Phone: [facility] 01-08-2025 11:03-0500 Body weight 66.68 kg Mallory Avinash SLOTS MANAGER.APPLICATIONS SYSTEMS ENGINEER Work Phone: [facility] 01-08-2025 11:03-0500 Diastolic blood pressure 62 mm[Hg] Mallory Avinash SLOTS MANAGER.APPLICATIONS SYSTEMS ENGINEER Work Phone: [facility] 01-08-2025 11:03-0500 Heart rate 90 /min Mallory Avinash SLOTS MANAGER.APPLICATIONS SYSTEMS ENGINEER Work Phone: [facility] 01-08-2025 11:03-0500 Respiratory rate 14 /min Mallory Avinash SLOTS MANAGER.APPLICATIONS SYSTEMS ENGINEER Work Phone: [facility] 01-08-2025 11:03-0500 SaO2% (BldA) [Mass fraction] 98 % Mallory Avinash SLOTS MANAGER.APPLICATIONS SYSTEMS ENGINEER Work Phone: [facility] 01-08-2025 11:03-0500 Systolic blood pressure 102 mm[Hg] Mallory Avinash SLOTS MANAGER.APPLICATIONS SYSTEMS ENGINEER Work Phone: [facility] 12-23-2024 08:44-0500 Body mass index (BMI) [Ratio] 27.99 kg/m2 German Pires SLOTS MANAGER.CORE MOUNTER Work Phone: [facility] 12-23-2024 08:44-0500 Body weight 65 kg German Pires SLOTS MANAGER.CORE MOUNTER Work Phone: [facility] 12-23-2024 08:44-0500 Diastolic blood pressure 59 mm[Hg] German Pires SLOTS MANAGER.CORE MOUNTER Work Phone: [facility] 12-23-2024 08:44-0500 Heart rate 80 /min German Pires SLOTS MANAGER.CORE MOUNTER Work Phone: [facility] 12-23-2024 08:44-0500 Respiratory rate 16 /min German Pires SLOTS MANAGER.CORE MOUNTER Work Phone: [facility] 12-23-2024 08:44-0500 Systolic blood pressure 92 mm[Hg] German Pires SLOTS MANAGER.CORE MOUNTER Work Phone: [facility] 10-20-2024 19:49-0500 Body mass index (BMI) [Ratio] 29.32 kg/m2 Yassine Link MD Work Phone: [facility] 10-20-2024 19:49-0500 Body temperature 97.59 [degF] Yassine Link MD Work Phone: [facility] 10-20-2024 19:49-0500 Body weight 68.1 kg Yassine Link MD Work Phone: [facility] 10-20-2024 19:49-0500 Diastolic blood pressure 70 mm[Hg] Yassine Link MD Work Phone: [facility] 10-20-2024 19:49-0500 Heart rate 68 /min Yassine Link MD Work Phone: [facility] 10-20-2024 19:49-0500 Respiratory rate 18 /min Yassine Link MD Work Phone: [facility] 10-20-2024 19:49-0500 Systolic blood pressure 112 mm[Hg] Yassine Link MD Work Phone: [facility] 06-09-2024 11:17-0400 Body mass index (BMI) [Ratio] 31.42 kg/m2 German Pires SLOTS MANAGER.CORE MOUNTER Work Phone: [facility] 06-09-2024 11:17-0400 Body weight 72.98 kg German Pires SLOTS MANAGER.CORE MOUNTER Work Phone: [facility] 06-09-2024 11:17-0400 Diastolic blood pressure 70 mm[Hg] German Pedrozas SLOTS MANAGER.CORE MOUNTER Work Phone: [facility] 06-09-2024 11:17-0400 Heart rate 76 /min German Pires SLOTS MANAGER.CORE MOUNTER Work Phone: [facility] 06-09-2024 11:17-0400 SaO2% (BldA) [Mass fraction] 99 % German Pires SLOTS MANAGER.CORE MOUNTER Work Phone: [facility] 06-09-2024 11:17-0400 Systolic blood pressure 108 mm[Hg] Germanjean carlos Pires SLOTS MANAGER.CORE MOUNTER Work Phone: [facility] 04-24-2024 15:07-0400 Body mass index (BMI) [Ratio] 32.11 kg/m2 Yassine Link MD Work Phone: [facility] 04-24-2024 15:07-0400 Body weight 74.57 kg Yassine Link MD Work Phone: [facility] 04-24-2024 15:07-0400 Diastolic blood pressure 84 mm[Hg] Yassine Link MD Work Phone: [facility] 04-24-2024 15:07-0400 Heart rate 72 /min Yassine Link MD Work Phone: [facility] 04-24-2024 15:07-0400 SaO2% (BldA) [Mass fraction] 99 % Yassine Link MD Work Phone: [facility] 04-24-2024 15:07-0400 Systolic blood pressure 110 mm[Hg] Yassine Link MD Work Phone: [facility] 03-13-2024 15:03-0400 Body temperature 97.9 [degF] Gertrude Henry MD Work Phone: [facility] 03-13-2024 15:03-0400 Diastolic blood pressure 84 mm[Hg] Gertrude Henry MD Work Phone: [facility] 03-13-2024 15:03-0400 Heart rate 91 /min Gertrude Henry MD Work Phone: [facility] 03-13-2024 15:03-0400 SaO2% (BldA) [Mass fraction] 98 % Gertrude Henry MD Work Phone: [facility] 03-13-2024 15:03-0400 Systolic blood pressure 116 mm[Hg] Gertrude Henry MD Work Phone: [facility] 03-02-2024 08:11-0400 Body height 152.4 cm [facility] 03-02-2024 08:11-0400 Body mass index (BMI) [Ratio] 32.7 kg/m2 [facility] 03-02-2024 08:11-0400 Body temperature 97 [degF] [facility] 03-02-2024 08:11-0400 Body weight 76 kg [facility] 03-02-2024 08:11-0400 Diastolic blood pressure 77 mm[Hg] [facility] 03-02-2024 08:11-0400 Heart rate 78 /min [facility] 03-02-2024 08:11-0400 Respiratory rate 14 /min [facility] 03-02-2024 08:11-0400 SaO2% (BldA) [Mass fraction] 100 % [facility] 03-02-2024 08:11-0400 Systolic blood pressure 115 mm[Hg] [facility] 02-25-2024 10:39-0400 Body weight 76.2 kg German Pires SLOTS MANAGER.CORE MOUNTER Work Phone: [facility] 02-25-2024 10:39-0400 Diastolic blood pressure 75 mm[Hg] German Pires SLOTS MANAGER.CORE MOUNTER Work Phone: [facility] 02-25-2024 10:39-0400 Heart rate 70 /min German Pedrozas SLOTS MANAGER.CORE MOUNTER Work Phone: [facility] 02-25-2024 10:39-0400 Respiratory rate 16 /min German Pires SLOTS MANAGER.CORE MOUNTER Work Phone: [facility] 02-25-2024 10:39-0400 Systolic blood pressure 111 mm[Hg] German Pedrozas SLOTS MANAGER.CORE MOUNTER Work Phone: [facility] 02-11-2024 15:08-0400 Body temperature 97.4 [degF] [facility] 02-11-2024 15:08-0400 Diastolic blood pressure 76 mm[Hg] [facility] 02-11-2024 15:08-0400 Heart rate 85 /min [facility] 02-11-2024 15:08-0400 Respiratory rate 16 /min [facility] 02-11-2024 15:08-0400 SaO2% (BldA) [Mass fraction] 99 % [facility] 02-11-2024 15:08-0400 Systolic blood pressure 120 mm[Hg] [facility] 02-11-2024 13:38-0400 Body height 152.4 cm [facility] 02-11-2024 13:38-0400 Body mass index (BMI) [Ratio] 32.4 kg/m2 [facility] 02-11-2024 13:38-0400 Body weight 75.29 kg [facility] 01-17-2024 17:33-0500 Body temperature 97.8 [degF] [facility] 01-17-2024 17:33-0500 Diastolic blood pressure 73 mm[Hg] [facility] 01-17-2024 17:33-0500 Heart rate 84 /min [facility] 01-17-2024 17:33-0500 Respiratory rate 16 /min [facility] 01-17-2024 17:33-0500 SaO2% (BldA) [Mass fraction] 100 % [facility] 01-17-2024 17:33-0500 Systolic blood pressure 116 mm[Hg] [facility] 01-17-2024 16:18-0500 Body height 152.4 cm [facility] 01-17-2024 16:18-0500 Body mass index (BMI) [Ratio] 31.5 kg/m2 [facility] 01-17-2024 16:18-0500 Body weight 73.25 kg [facility] 01-10-2024 13:02-0500 Body weight 71.22 kg German Pires SLOTS MANAGER.CORE MOUNTER Work Phone: [facility] 01-10-2024 13:02-0500 Diastolic blood pressure 82 mm[Hg] German Pires SLOTS MANAGER.CORE MOUNTER Work Phone: [facility] 01-10-2024 13:02-0500 Heart rate 90 /min German Pires SLOTS MANAGER.CORE MOUNTER Work Phone: [facility] 01-10-2024 13:02-0500 Respiratory rate 16 /min German Pires SLOTS MANAGER.CORE MOUNTER Work Phone: [facility] 01-10-2024 13:02-0500 SaO2% (BldA) [Mass fraction] 100 % German Pires SLOTS MANAGER.CORE MOUNTER Work Phone: [facility] 01-10-2024 13:02-0500 Systolic blood pressure 116 mm[Hg] German Pires SLOTS MANAGER.CORE MOUNTER Work Phone: [facility] 01-07-2024 09:16-0500 Body temperature 97.39 [degF] Gertrude Henry MD Work Phone: [facility] 01-05-2024 09:57-0500 Body height 152.4 cm [facility] 01-05-2024 09:57-0500 Body mass index (BMI) [Ratio] 32.3 kg/m2 [facility] 01-05-2024 09:57-0500 Body temperature 97.5 [degF] [facility] 01-05-2024 09:57-0500 Body weight 75.16 kg [facility] 01-05-2024 09:57-0500 Diastolic blood pressure 70 mm[Hg] [facility] 01-05-2024 09:57-0500 Heart rate 91 /min [facility] 01-05-2024 09:57-0500 Respiratory rate 16 /min [facility] 01-05-2024 09:57-0500 SaO2% (BldA) [Mass fraction] 99 % [facility] 01-05-2024 09:57-0500 Systolic blood pressure 110 mm[Hg] [facility] 01-02-2024 18:15-0500 Diastolic blood pressure 78 mm[Hg] JOLANTA URBAN DO [facility] 01-02-2024 18:15-0500 Systolic blood pressure 136 mm[Hg] JOLANTA URBAN DO [facility] 01-02-2024 17:41-0500 Blood Pressure Cuff Size JOLANTA URBAN DO [facility] 01-02-2024 17:41-0500 Blood Pressure Location JOLANTA URBAN DO [facility] 01-02-2024 17:41-0500 Blood Pressure Method JOLANTA URBAN DO [facility] 01-02-2024 17:41-0500 Body height 152.4 cm JOLANTA URBAN DO [facility] 01-02-2024 17:41-0500 Body temperature 97.16 [degF] JOLANTA URBAN DO [facility] 01-02-2024 17:41-0500 Body weight 73.5 kg JOLANTA URBAN DO [facility] 01-02-2024 17:41-0500 Diastolic Blood Pressure Non-Invasive 93 mm[Hg] JOLANTA URBAN DO [facility] 01-02-2024 17:41-0500 Heart rate 71 /min JOLANTA URBAN DO [facility] 01-02-2024 17:41-0500 Reason For Taking VItal Signs JOLANTA URBAN DO [facility] 01-02-2024 17:41-0500 Respiratory rate 18 /min JOLANTA URBAN DO [facility] 01-02-2024 17:41-0500 Systolic Blood Pressure Non-Invasive 143 mm[Hg] JOLANTA URBAN DO [facility] 12-25-2023 11:17-0500 Body height 152.4 cm Gertrude Henry MD Work Phone: [facility] 12-25-2023 11:17-0500 Body temperature 97.81 [degF] Gertrude Henry MD Work Phone: [facility] 12-25-2023 11:17-0500 Body weight 73.48 kg Gertrude Henry MD Work Phone: [facility] 12-25-2023 11:17-0500 Diastolic blood pressure 78 mm[Hg] Gertrude Henry MD Work Phone: [facility] 12-25-2023 11:17-0500 Heart rate 82 /min Gertrude Henry MD Work Phone: [facility] 12-25-2023 11:17-0500 SaO2% (BldA) [Mass fraction] 97 % Gertrude Henry MD Work Phone: [facility] 12-25-2023 11:17-0500 Systolic blood pressure 118 mm[Hg] Gertrude Henry MD Work Phone: [facility] 12-23-2023 15:59-0500 Body temperature 98.1 [degF] [facility] 12-23-2023 15:59-0500 Diastolic blood pressure 91 mm[Hg] [facility] 12-23-2023 15:59-0500 Heart rate 84 /min [facility] 12-23-2023 15:59-0500 Respiratory rate 18 /min [facility] 12-23-2023 15:59-0500 SaO2% (BldA) [Mass fraction] 100 % [facility] 12-23-2023 15:59-0500 Systolic blood pressure 112 mm[Hg] [facility] 12-23-2023 15:11-0500 Body height 152.4 cm [facility] 12-23-2023 15:11-0500 Body mass index (BMI) [Ratio] 32.3 kg/m2 [facility] 12-23-2023 15:11-0500 Body weight 75.02 kg [facility] 12-22-2023 14:08-0500 Diastolic blood pressure 68 mm[Hg] [facility] 12-22-2023 14:08-0500 Heart rate 82 /min [facility] 12-22-2023 14:08-0500 SaO2% (BldA) [Mass fraction] 98 % [facility] 12-22-2023 14:08-0500 Systolic blood pressure 105 mm[Hg] [facility] 12-22-2023 10:56-0500 Body height 152.4 cm [facility] 12-22-2023 10:56-0500 Body mass index (BMI) [Ratio] 31.8 kg/m2 [facility] 12-22-2023 10:56-0500 Body temperature 96.8 [degF] [facility] 12-22-2023 10:56-0500 Body weight 74.07 kg [facility] 12-22-2023 10:56-0500 Respiratory rate 16 /min [facility] 12-08-2023 13:51-0500 Body height 152.4 cm [facility] 12-08-2023 13:51-0500 Body mass index (BMI) [Ratio] 31.8 kg/m2 [facility] 12-08-2023 13:51-0500 Body temperature 96.4 [degF] [facility] 12-08-2023 13:51-0500 Body weight 73.93 kg [facility] 12-08-2023 13:51-0500 Diastolic blood pressure 80 mm[Hg] [facility] 12-08-2023 13:51-0500 Heart rate 83 /min [facility] 12-08-2023 13:51-0500 Respiratory rate 18 /min [facility] 12-08-2023 13:51-0500 SaO2% (BldA) [Mass fraction] 100 % [facility] 12-08-2023 13:51-0500 Systolic blood pressure 123 mm[Hg] [facility] 11-25-2023 04:54-0500 Body height 152.4 cm [facility] 11-25-2023 04:54-0500 Body mass index (BMI) [Ratio] 31.4 kg/m2 [facility] 11-25-2023 04:54-0500 Body temperature 97.9 [degF] [facility] 11-25-2023 04:54-0500 Body weight 73.02 kg [facility] 11-25-2023 04:54-0500 Diastolic blood pressure 59 mm[Hg] [facility] 11-25-2023 04:54-0500 Heart rate 72 /min [facility] 11-25-2023 04:54-0500 Respiratory rate 16 /min [facility] 11-25-2023 04:54-0500 SaO2% (BldA) [Mass fraction] 99 % [facility] 11-25-2023 04:54-0500 Systolic blood pressure 105 mm[Hg] [facility] 11-21-2023 15:46-0500 Body height 152.4 cm MAYI REAVES MD [facility] 11-21-2023 15:46-0500 Body temperature 98.24 [degF] MAYI REAVES MD [facility] 11-21-2023 15:46-0500 Body weight 72.7 kg MAYI REAVES MD [facility] 11-21-2023 15:46-0500 Diastolic Blood Pressure Non-Invasive 73 mm[Hg] MAYI REAVES MD [facility] 11-21-2023 15:46-0500 Heart rate 86 /min MAYI REAVES MD [facility] 11-21-2023 15:46-0500 Respiratory rate 18 /min MAYI REAVES MD [facility] 11-21-2023 15:46-0500 Systolic Blood Pressure Non-Invasive 119 mm[Hg] MAYI REAVES MD [facility] 11-19-2023 14:37-0500 Diastolic blood pressure 65 mm[Hg] [facility] 11-19-2023 14:37-0500 Heart rate 92 /min [facility] 11-19-2023 14:37-0500 Respiratory rate 16 /min [facility] 11-19-2023 14:37-0500 SaO2% (BldA) [Mass fraction] 98 % [facility] 11-19-2023 14:37-0500 Systolic blood pressure 107 mm[Hg] [facility] 11-19-2023 13:55-0500 Inhaled oxygen flow rate 2 L/min [facility] 11-19-2023 13:45-0500 Body temperature 98.2 [degF] [facility] 11-19-2023 12:46-0500 Body height 152.4 cm [facility] 11-19-2023 12:46-0500 Body mass index (BMI) [Ratio] 33.5 kg/m2 [facility] 11-19-2023 12:46-0500 Body weight 77.83 kg [facility] 11-11-2023 13:36-0500 Respiratory rate 14 /min [facility] 11-11-2023 12:35-0500 Body temperature 97.9 [degF] [facility] 11-11-2023 12:35-0500 Diastolic blood pressure 72 mm[Hg] [facility] 11-11-2023 12:35-0500 Heart rate 55 /min [facility] 11-11-2023 12:35-0500 SaO2% (BldA) [Mass fraction] 94 % [facility] 11-11-2023 12:35-0500 Systolic blood pressure 132 mm[Hg] [facility] 11-11-2023 08:20-0500 Body mass index (BMI) [Ratio] 34.1 kg/m2 [facility] 11-11-2023 08:20-0500 Body weight 79.19 kg [facility] 11-11-2023 08:13-0500 Body height 152.4 cm [facility] 09-21-2023 07:14-0400 Body height 152.4 cm [facility] 09-21-2023 07:14-0400 Body mass index (BMI) [Ratio] 32.2 kg/m2 [facility] 09-21-2023 07:14-0400 Body temperature 97.6 [degF] [facility] 09-21-2023 07:14-0400 Body weight 74.84 kg [facility] 09-21-2023 07:14-0400 Diastolic blood pressure 76 mm[Hg] [facility] 09-21-2023 07:14-0400 Heart rate 76 /min [facility] 09-21-2023 07:14-0400 Respiratory rate 14 /min [facility] 09-21-2023 07:14-0400 SaO2% (BldA) [Mass fraction] 98 % [facility] 09-21-2023 07:14-0400 Systolic blood pressure 134 mm[Hg] [facility] 06-30-2023 08:04-0400 Body height 152.4 cm [facility] 06-30-2023 08:04-0400 Body mass index (BMI) [Ratio] 32.5 kg/m2 [facility] 06-30-2023 08:04-0400 Body temperature 96.8 [degF] [facility] 06-30-2023 08:04-0400 Body weight 75.65 kg [facility] 06-30-2023 08:04-0400 Diastolic blood pressure 77 mm[Hg] [facility] 06-30-2023 08:04-0400 Heart rate 77 /min [facility] 06-30-2023 08:04-0400 Respiratory rate 16 /min [facility] 06-30-2023 08:04-0400 SaO2% (BldA) [Mass fraction] 100 % [facility] 06-30-2023 08:04-0400 Systolic blood pressure 122 mm[Hg] [facility] 05-28-2023 19:18-0400 Body weight 75.75 kg Yassine Link MD Work Phone: [facility] 05-28-2023 19:18-0400 Diastolic blood pressure 62 mm[Hg] Yassine Link MD Work Phone: [facility] 05-28-2023 19:18-0400 Heart rate 80 /min Yassine Link MD Work Phone: [facility] 05-28-2023 19:18-0400 Respiratory rate 16 /min Yassine Link MD Work Phone: [facility] 05-28-2023 19:18-0400 Systolic blood pressure 96 mm[Hg] Yassine Link MD Work Phone: [facility] 05-27-2023 13:40-0400 Diastolic blood pressure 74 mm[Hg] [facility] 05-27-2023 13:40-0400 Heart rate 62 /min [facility] 05-27-2023 13:40-0400 Respiratory rate 15 /min [facility] 05-27-2023 13:40-0400 SaO2% (BldA) [Mass fraction] 98 % [facility] 05-27-2023 13:40-0400 Systolic blood pressure 125 mm[Hg] [facility] 05-27-2023 09:49-0400 Body height 152.4 cm [facility] 05-27-2023 09:49-0400 Body mass index (BMI) [Ratio] 32.8 kg/m2 [facility] 05-27-2023 09:49-0400 Body temperature 99 [degF] [facility] 05-27-2023 09:49-0400 Body weight 76.2 kg [facility] 04-25-2023 13:42-0400 Body height 152.4 cm [facility] 04-25-2023 13:42-0400 Body mass index (BMI) [Ratio] 32.5 kg/m2 [facility] 04-25-2023 13:42-0400 Body temperature 98 [degF] [facility] 04-25-2023 13:42-0400 Body weight 75.55 kg [facility] 04-25-2023 13:42-0400 Diastolic blood pressure 98 mm[Hg] [facility] 04-25-2023 13:42-0400 Heart rate 86 /min [facility] 04-25-2023 13:42-0400 Respiratory rate 16 /min [facility] 04-25-2023 13:42-0400 SaO2% (BldA) [Mass fraction] 100 % [facility] 04-25-2023 13:42-0400 Systolic blood pressure 129 mm[Hg] [facility] 04-11-2023 13:03-0400 Body mass index (BMI) [Ratio] 33.5 kg/m2 [facility] 04-11-2023 13:03-0400 Body temperature 97.8 [degF] [facility] 04-11-2023 13:03-0400 Body weight 78.01 kg [facility] 04-11-2023 13:03-0400 Diastolic blood pressure 85 mm[Hg] [facility] 04-11-2023 13:03-0400 Heart rate 77 /min [facility] 04-11-2023 13:03-0400 Respiratory rate 16 /min [facility] 04-11-2023 13:03-0400 SaO2% (BldA) [Mass fraction] 100 % [facility] 04-11-2023 13:03-0400 Systolic blood pressure 136 mm[Hg] [facility] 03-12-2023 16:48-0400 Heart rate 60 /min Dr. Yassine Link Work Phone: [facility] 03-12-2023 16:48-0400 SaO2% (BldA) [Mass fraction] 100 % Dr. Yassine Link Work Phone: [facility] 03-12-2023 16:11-0400 Body height 152.[address] Yassine Link Work Phone: 4(649)193-499561 [place] [address] 03-12-2023 16:11-0400 Body mass index (BMI) [Ratio] 34.3 kg/m2 Dr. Yassine Link Work Phone: 2(260)852-140283 [place] [address] 03-12-2023 16:11-0400 Body temperature 98.2 [degF] Dr. Yassine Link Work Phone: 5(663)513-505783 [place] [address] 03-12-2023 16:11-0400 Body weight 79.[address] Yassine Link Work Phone: 0(223)131-022883 [place] [address] 03-12-2023 16:11-0400 Diastolic blood pressure 79 mm[Hg] Dr. Yassine Link Work Phone: 6(874)864-600083 [place] [address] 03-12-2023 16:11-0400 Respiratory rate 16 /min Dr. Yassine Link Work Phone: 8(402)312-733683 [place] [address] 03-12-2023 16:11-0400 Systolic blood pressure 125 mm[Hg] Dr. Yassine Link Work Phone: 5(825)753-569383 [place] [address] 02-24-2023 13:57-0400 Diastolic blood pressure 88 mm[Hg] Dr. Yassine Link Work Phone: 2(063)193-514483 [place] [address] 02-24-2023 13:57-0400 Heart rate 74 /min Dr. Yassine Link Work Phone: 0(092)755-283383 [place] [address] 02-24-2023 13:57-0400 Respiratory rate 15 /min Dr. Yassine Link Work Phone: 6(202)603-817083 [place] [address] 02-24-2023 13:57-0400 SaO2% (BldA) [Mass fraction] 98 % Dr. Yassine Link Work Phone: 0(612)923-625583 [place] [address] 02-24-2023 13:57-0400 Systolic blood pressure 129 mm[Hg] Dr. Yassine Link Work Phone: 1(593)332-292583 [place] [address] 02-24-2023 13:09-0400 Body height 152.[address] Yassine Link Work Phone: 3(182)263-227561 [place] [address] 02-24-2023 13:09-0400 Body mass index (BMI) [Ratio] 34.2 kg/m2 Dr. Yassine Link Work Phone: 7(321)104-362061 [place] [address] 02-24-2023 13:09-0400 Body temperature 97.4 [degF] Dr. Yassine Link Work Phone: 3(818)761-825361 [place] [address] 02-24-2023 13:09-0400 Body weight 79.[address] Yassine Link Work Phone: 6(912)760-424783 [place] [address] 12-30-2022 14:52-0500 Body height 152.[address] Yassine Link Work Phone: 6(006)148-152683 [place] [address] 12-30-2022 14:52-0500 Body mass index (BMI) [Ratio] 33.4 kg/m2 Dr. Yassine Link Work Phone: 8(986)505-962983 [place] [address] 12-30-2022 14:52-0500 Body temperature 97 [degF] Dr. Yassine Link Work Phone: 9(909)206-558683 [place] [address] 12-30-2022 14:52-0500 Body weight 77.[address] Yassine Link Work Phone: 5(602)512-110783 [place] [address] 12-30-2022 14:52-0500 Diastolic blood pressure 70 mm[Hg] Dr. Yassine Link Work Phone: 6(864)347-610683 [place] [address] 12-30-2022 14:52-0500 Heart rate 83 /min Dr. Yassine Link Work Phone: 7(149)455-132983 [place] [address] 12-30-2022 14:52-0500 Respiratory rate 14 /min Dr. Yassine Link Work Phone: 8(408)737-740883 [place] [address] 12-30-2022 14:52-0500 SaO2% (BldA) [Mass fraction] 100 % Dr. Yassine Link Work Phone: 7(500)101-559183 [place] [address] 12-30-2022 14:52-0500 Systolic blood pressure 120 mm[Hg] Dr. Yassine Link Work Phone: [facility] 12-28-2022 11:41-0500 Body temperature 97.3 [degF] Yassine Link MD Work Phone: [facility] 12-28-2022 11:41-0500 Body weight 78.47 kg Yassine Link MD Work Phone: [facility] 12-28-2022 11:41-0500 Diastolic blood pressure 68 mm[Hg] Yassine Link MD Work Phone: [facility] 12-28-2022 11:41-0500 Heart rate 80 /min Yassine Link MD Work Phone: [facility] 12-28-2022 11:41-0500 Respiratory rate 16 /min Yassine Link MD Work Phone: [facility] 12-28-2022 11:41-0500 Systolic blood pressure 116 mm[Hg] Yassine Link MD Work Phone: [facility] 12-01-2022 16:23-0500 Body temperature 97.81 [degF] Yassine Link MD Work Phone: [facility] 12-01-2022 16:23-0500 Body weight 78.02 kg Yassine Link MD Work Phone: [facility] 12-01-2022 16:23-0500 Diastolic blood pressure 72 mm[Hg] Yassine Link MD Work Phone: [facility] 12-01-2022 16:23-0500 Heart rate 87 /min Yassine Link MD Work Phone: [facility] 12-01-2022 16:23-0500 Respiratory rate 16 /min Yassine Link MD Work Phone: [facility] 12-01-2022 16:23-0500 SaO2% (BldA) [Mass fraction] 99 % Yassine Link MD Work Phone: [facility] 12-01-2022 16:23-0500 Systolic blood pressure 112 mm[Hg] Yassine Link MD Work Phone: [facility] 12-01-2022 10:27-0500 Diastolic blood pressure 67 mm[Hg] Dr. Yassine Link Work Phone: [facility] 12-01-2022 10:27-0500 Heart rate 71 /min Dr. Yassine Link Work Phone: [facility] 12-01-2022 10:27-0500 Respiratory rate 15 /min Dr. Yassine Link Work Phone: 7(384)383-854061 [place] [address] 12-01-2022 10:27-0500 SaO2% (BldA) [Mass fraction] 98 % Dr. Yassine Link Work Phone: 6(991)490-842261 [place] [address] 12-01-2022 10:27-0500 Systolic blood pressure 108 mm[Hg] Dr. Yassine Link Work Phone: [facility] 12-01-2022 09:53-0500 Body height 152.[address] Yassine Link Work Phone: [facility] Work Phone: 12-01-2022 09:53-0500 Body mass index (BMI) [Ratio] 33.4 kg/m2 Dr. Yassine Link Work Phone: [facility] 12-01-2022 09:53-0500 Body temperature 97.1 [degF] Dr. Yassine Link Work Phone: 8(642)228-773661 [place] [address] 12-01-2022 09:53-0500 Body weight 77.[address] Yassine Link Work Phone: 6(137)842-126961 [place] [address] 11-30-2022 07:39-0500 Body mass index (BMI) [Ratio] 33.4 kg/m2 Dr. Yassine Link Work Phone: 0(729)817-575061 [place] [address] 11-30-2022 07:39-0500 Body temperature 98.2 [degF] Dr. Yassine Link Work Phone: [facility] 11-30-2022 07:39-0500 Body weight 77.[address] Yassine Link Work Phone: [facility] 11-30-2022 07:39-0500 Diastolic blood pressure 66 mm[Hg] Dr. Yassine Link Work Phone: [facility] 11-30-2022 07:39-0500 Heart rate 83 /min Dr. Yassine Link Work Phone: 6(728)505-208561 [place] [address] 11-30-2022 07:39-0500 Respiratory rate 14 /min Dr. Yassine Link Work Phone: 7(713)037-145983 [place] [address] 11-30-2022 07:39-0500 SaO2% (BldA) [Mass fraction] 98 % Dr. Yassine Link Work Phone: [facility] 11-30-2022 07:39-0500 Systolic blood pressure 118 mm[Hg] Dr. Yassine Link Work Phone: [facility] 11-03-2022 10:19-0500 Body temperature 97.81 [degF] German Pires [employer]TER Work Phone: [facility] 11-03-2022 10:19-0500 Body weight 75.75 kg German Pires [employer] MANAGER[employer]TER Work Phone: [facility] 11-03-2022 10:19-0500 Diastolic blood pressure 60 mm[Hg] German Pires [employer] MANAGER[employer]TER Work Phone: [facility] 11-03-2022 10:19-0500 Heart rate 85 /min German Pires [employer] MANAGER[employer]TER Work Phone: [facility] 11-03-2022 10:19-0500 SaO2% (BldA) [Mass fraction] 100 % German Pires SL[employer]S MANAGER[employer] M[employer]TER Work Phone: [facility] 11-03-2022 10:19-0500 Systolic blood pressure 118 mm[Hg] German Pires [employer] MANAGER[employer] M[employer]TER Work Phone: [facility] 10-22-2022 02:27-0500 Diastolic blood pressure 82 mm[Hg] Dr. Yassine Link Work Phone: [facility] 10-22-2022 02:27-0500 Heart rate 57 /min Dr. Yassine Link Work Phone: [facility] 10-22-2022 02:27-0500 Respiratory rate 16 /min Dr. Yassine Link Work Phone: [facility] 10-22-2022 02:27-0500 SaO2% (BldA) [Mass fraction] 99 % Dr. Yassine Link Work Phone: [facility] 10-22-2022 02:27-0500 Systolic blood pressure 116 mm[Hg] Dr. Yassine Link Work Phone: [facility] 10-21-2022 21:53-0500 Body temperature 97.6 [degF] Dr. Yassine Link Work Phone: [facility] 10-21-2022 21:51-0500 Body height 152.[address] Yassine Link Work Phone: [facility] Work Phone: 10-21-2022 21:51-0500 Body mass index (BMI) [Ratio] 34.1 kg/m2 Dr. Yassine Link Work Phone: [facility] 10-21-2022 21:51-0500 Body weight 79.[address] Yassine Link Work Phone: [facility] 10-05-2022 11:39-0500 Body temperature 97.7 [degF] Yassine Link MD Work Phone: [facility] 10-05-2022 11:39-0500 Body weight 81.19 kg Yassine Link MD Work Phone: [facility] 10-05-2022 11:39-0500 Diastolic blood pressure 70 mm[Hg] Yassine Link MD Work Phone: [facility] 10-05-2022 11:39-0500 Heart rate 72 /min Yassine Link MD Work Phone: [facility] 10-05-2022 11:39-0500 Respiratory rate 18 /min Yassine Link MD Work Phone: [facility] 10-05-2022 11:39-0500 Systolic blood pressure 120 mm[Hg] Yassine Link MD Work Phone: [facility] 09-26-2022 14:27-0400 Respiratory rate 16 /min Dr. Yassine Link Work Phone: [facility] 09-26-2022 11:13-0400 Body height 152.[address] Yassine Link Work Phone: [facility] Work Phone: 09-26-2022 11:13-0400 Body mass index (BMI) [Ratio] 33 kg/m2 Dr. Yassine Link Work Phone: [facility] 09-26-2022 11:13-0400 Body temperature 97.1 [degF] Dr. Yassine Link Work Phone: [facility] 09-26-2022 11:13-0400 Body weight 76.[address] Yassine Link Work Phone: [facility] 09-26-2022 11:13-0400 Diastolic blood pressure 86 mm[Hg] Dr. Yassine Link Work Phone: 9(178)570-236861 [place] [address] 09-26-2022 11:13-0400 Heart rate 89 /min Dr. Yassine Link Work Phone: [facility] 09-26-2022 11:13-0400 SaO2% (BldA) [Mass fraction] 100 % Dr. Yassine Link Work Phone: 0(685)061-269761 [place] [address] 09-26-2022 11:13-0400 Systolic blood pressure 117 mm[Hg] Dr. Yassine Link Work Phone: [facility] 09-26-2022 10:32-0400 Body temperature 97.2 [degF] Yassine Link MD Work Phone: [facility] 09-26-2022 10:32-0400 Body weight 76.66 kg Yassine Link MD Work Phone: [facility] 09-26-2022 10:32-0400 Diastolic blood pressure 68 mm[Hg] Yassine Link MD Work Phone: [facility] 09-26-2022 10:32-0400 Heart rate 84 /min Yassine Link MD Work Phone: [facility] 09-26-2022 10:32-0400 Respiratory rate 20 /min Yassine Link MD Work Phone: [facility] 09-26-2022 10:32-0400 Systolic blood pressure 124 mm[Hg] Yassine Link MD Work Phone: [facility] 09-20-2022 08:20-0400 Body mass index (BMI) [Ratio] 33.5 kg/m2 Dr. Yassine Link Work Phone: [facility] 09-20-2022 08:20-0400 Body temperature 97 [degF] Dr. Yassine Link Work Phone: [facility] 09-20-2022 08:20-0400 Body weight 77.[address] Yassine Link Work Phone: [facility] 09-20-2022 08:20-0400 Diastolic blood pressure 74 mm[Hg] Dr. Yassine Link Work Phone: [facility] 09-20-2022 08:20-0400 Heart rate 70 /min Dr. Yassine Link Work Phone: [facility] 09-20-2022 08:20-0400 Respiratory rate 17 /min Dr. Yassine Link Work Phone: 0(221)380-035861 [place] [address] 09-20-2022 08:20-0400 SaO2% (BldA) [Mass fraction] 98 % Dr. Yassine Link Work Phone: 4(166)093-024061 [place] [address] 09-20-2022 08:20-0400 Systolic blood pressure 106 mm[Hg] Dr. Yassine Link Work Phone: 7(431)159-979783 [place] [address] 09-16-2022 18:11-0400 Body mass index (BMI) [Ratio] 32.2 kg/m2 Dr. Yassine Link Work Phone: 7(532)547-772283 [place] [address] 09-16-2022 18:11-0400 Body temperature 98.1 [degF] Dr. Yassine Link Work Phone: 5(069)600-557583 [place] [address] 09-16-2022 18:11-0400 Body weight 74.[address] Yassine Link Work Phone: 1(695)458-928783 [place] [address] 09-16-2022 18:11-0400 Diastolic blood pressure 89 mm[Hg] Dr. Yassine Link Work Phone: 9(505)539-343983 [place] [address] 09-16-2022 18:11-0400 Heart rate 98 /min Dr. Yassine Link Work Phone: 8(584)607-781561 [place] [address] 09-16-2022 18:11-0400 Respiratory rate 16 /min Dr. Yassine Link Work Phone: 9(405)541-013761 [place] [address] 09-16-2022 18:11-0400 SaO2% (BldA) [Mass fraction] 98 % Dr. Yassine Link Work Phone: 2(085)686-159661 [place] [address] 09-16-2022 18:11-0400 Systolic blood pressure 127 mm[Hg] Dr. Yassine Link Work Phone: 5(249)055-158483 [place] [address] 08-31-2022 09:09-0400 Heart rate 85 /min Izabela Stephens APRN.CNP Work Phone: [facility] 08-31-2022 09:09-0400 Respiratory rate 16 /min Izabela Stephens SLOTS MANAGER.[employer]S SYSTEMS ENGINEER Work Phone: [facility] 08-31-2022 09:09-0400 SaO2% (BldA) [Mass fraction] 98 % Izabela Stephens SLOTS MANAGER.APPLICATIONS SYSTEMS ENGINEER Work Phone: [facility] 08-03-2022 13:48-0400 Body mass index (BMI) [Ratio] 33 kg/m2 Dr. Yassine Link Work Phone: [facility] Work Phone: 08-03-2022 13:48-0400 Body weight 76.[address] Yassine Link Work Phone: [facility] Work Phone: 08-03-2022 13:48-0400 Diastolic blood pressure 68 mm[Hg] Dr. Yassine Link Work Phone: [facility] Work Phone: 08-03-2022 13:48-0400 Systolic blood pressure 112 mm[Hg] Dr. Yassine Link Work Phone: [facility] Work Phone: 07-28-2022 17:07-0400 Body temperature 97.3 [degF] Yassine Link MD Work Phone: [facility] 07-28-2022 17:07-0400 Body weight 77.11 kg Yassine Link MD Work Phone: [facility] 07-28-2022 17:07-0400 Diastolic blood pressure 68 mm[Hg] Yassine Link MD Work Phone: [facility] 07-28-2022 17:07-0400 Heart rate 80 /min Yassine Link MD Work Phone: [facility] 07-28-2022 17:07-0400 Respiratory rate 20 /min Yassine Link MD Work Phone: [facility] 09-02-2022 17:07-0400 SaO2% (BldA) [Mass fraction] 99 % Yassine Link MD Work Phone: [facility] 07-28-2022 17:07-0400 Systolic blood pressure 112 mm[Hg] Yassine Link MD Work Phone: [facility] 07-27-2022 23:23-0400 Heart rate 77 /min [facility] Work Phone: 07-27-2022 23:23-0400 Respiratory rate 17 /min [facility] Work Phone: 07-27-2022 23:23-0400 SaO2% (BldA) [Mass fraction] 99 % [facility] Work Phone: 07-27-2022 20:56-0400 Body temperature 98.1 [degF] [facility] Work Phone: 07-27-2022 20:56-0400 Diastolic blood pressure 65 mm[Hg] [facility] Work Phone: 07-27-2022 20:56-0400 Systolic blood pressure 120 mm[Hg] [facility] Work Phone: 07-27-2022 20:54-0400 Body height 152.4 cm [facility] Work Phone: 07-27-2022 20:54-0400 Body mass index (BMI) [Ratio] 32.2 kg/m2 [facility] Work Phone: 07-27-2022 20:54-0400 Body weight 74.84 kg [facility] Work Phone: 07-11-2022 12:22-0400 Respiratory rate 18 /min [facility] Work Phone: 07-11-2022 10:42-0400 Body height 152.4 cm [facility] Work Phone: 07-11-2022 10:42-0400 Body mass index (BMI) [Ratio] 33.6 kg/m2 [facility] Work Phone: 07-11-2022 10:42-0400 Body temperature 97.7 [degF] [facility] Work Phone: 07-11-2022 10:42-0400 Body weight 78.1 kg [facility] Work Phone: 07-11-2022 10:42-0400 Diastolic blood pressure 77 mm[Hg] [facility] Work Phone: 07-11-2022 10:42-0400 Heart rate 76 /min [facility] Work Phone: 07-11-2022 10:42-0400 SaO2% (BldA) [Mass fraction] 100 % [facility] Work Phone: 07-11-2022 10:42-0400 Systolic blood pressure 122 mm[Hg] [facility] Work Phone: 06-19-2022 11:43-0400 Body weight 77.11 kg German Pires SL[employer]S MANAGER.[employer] MOUNTER Work Phone: [facility] 06-19-2022 11:43-0400 Diastolic blood pressure 78 mm[Hg] German Pires SL[employer]S MANAGER.[employer] MOUNTER Work Phone: [facility] 06-19-2022 11:43-0400 Heart rate 84 /min German Pires SL[employer]S MANAGER.[employer] MOUNTER Work Phone: [facility] 06-19-2022 11:43-0400 Respiratory rate 16 /min German Pires SLOTS MANAGER.[employer] MOUNTER Work Phone: [facility] 06-19-2022 11:43-0400 Systolic blood pressure 118 mm[Hg] German Pires SLOTS MANAGER.[employer] MOUNTER Work Phone: [facility] 05-30-2022 13:27-0400 Diastolic blood pressure 75 mm[Hg] [facility] Work Phone: 05-30-2022 13:27-0400 Respiratory rate 14 /min [facility] Work Phone: 05-30-2022 13:27-0400 Systolic blood pressure 136 mm[Hg] [facility] Work Phone: 05-30-2022 11:03-0400 Body height 152.4 cm [facility] Work Phone: 05-30-2022 11:03-0400 Body mass index (BMI) [Ratio] 34 kg/m2 [facility] Work Phone: 05-30-2022 11:03-0400 Body temperature 98.7 [degF] [facility] Work Phone: 05-30-2022 11:03-0400 Body weight 78.92 kg [facility] Work Phone: 05-30-2022 11:03-0400 Heart rate 85 /min [facility] Work Phone: 05-30-2022 11:03-0400 SaO2% (BldA) [Mass fraction] 98 % [facility] Work Phone: 05-23-2022 11:44-0400 Body temperature 97.2 [degF] Yassine Link MD Work Phone: [facility] 05-23-2022 11:44-0400 Body weight 78.02 kg Yassine Link MD Work Phone: [facility] 05-23-2022 11:44-0400 Diastolic blood pressure 70 mm[Hg] Yassine Link MD Work Phone: [facility] 05-23-2022 11:44-0400 Heart rate 72 /min Yassine Link MD Work Phone: [facility] 05-23-2022 11:44-0400 Respiratory rate 16 /min Yassine Link MD Work Phone: [facility] 05-23-2022 11:44-0400 Systolic blood pressure 116 mm[Hg] Yassine Link MD Work Phone: [facility] 05-04-2022 13:52-0400 Body temperature 97.39 [degF] Yassine Link MD Work Phone: [facility] 05-04-2022 13:52-0400 Body weight 79.2 kg Yassine Link MD Work Phone: [facility] 05-04-2022 13:52-0400 Diastolic blood pressure 70 mm[Hg] Yassine Link MD Work Phone: [facility] 05-04-2022 13:52-0400 Heart rate 76 /min Yassine Link MD Work Phone: [facility] 05-04-2022 13:52-0400 Respiratory rate 16 /min Yassine Link MD Work Phone: [facility] 05-04-2022 13:52-0400 Systolic blood pressure 112 mm[Hg] Yassine Link MD Work Phone: [facility] 03-09-2022 22:31-0400 Body height 152.4 cm [facility] Work Phone: 03-09-2022 22:31-0400 Body mass index (BMI) [Ratio] 34.2 kg/m2 [facility] Work Phone: 03-09-2022 22:31-0400 Body temperature 96.7 [degF] [facility] Work Phone: 03-09-2022 22:31-0400 Body weight 79.5 kg [facility] Work Phone: 03-09-2022 22:31-0400 Diastolic blood pressure 73 mm[Hg] [facility] Work Phone: 03-09-2022 22:31-0400 Heart rate 78 /min [facility] Work Phone: 03-09-2022 22:31-0400 Respiratory rate 14 /min [facility] Work Phone: 03-09-2022 22:31-0400 Systolic blood pressure 123 mm[Hg] [facility] Work Phone: 02-24-2022 09:58-0400 Body weight 77.56 kg Gemran Pires SL[employer]S MANAGER.[employer] MOUNTER Work Phone: [facility] 02-24-2022 09:58-0400 Diastolic blood pressure 72 mm[Hg] German Pires SL[employer]S MANAGER.[employer] MOUNTER Work Phone: [facility] 02-24-2022 09:58-0400 Heart rate 76 /min German Pires SL[employer]S MANAGER.[employer] MOUNTER Work Phone: [facility] 02-24-2022 09:58-0400 Respiratory rate 16 /min German Pires SLOTS MANAGER.[employer] MOUNTER Work Phone: [facility] 02-24-2022 09:58-0400 Systolic blood pressure 102 mm[Hg] German Pires SLOTS MANAGER.[employer] MOUNTER Work Phone: [facility] 12-20-2021 13:10-0500 Body mass index (BMI) [Ratio] 32.2 kg/m2 [facility] Work Phone: 12-20-2021 13:10-0500 Body temperature 97.2 [degF] [facility] Work Phone: 12-20-2021 13:10-0500 Body weight 74.84 kg [facility] Work Phone: 12-20-2021 13:10-0500 Diastolic blood pressure 78 mm[Hg] [facility] Work Phone: 12-20-2021 13:10-0500 Heart rate 83 /min [facility] Work Phone: 12-20-2021 13:10-0500 Respiratory rate 16 /min [facility] Work Phone: 12-20-2021 13:10-0500 SaO2% (BldA) [Mass fraction] 100 % [facility] Work Phone: 12-20-2021 13:10-0500 Systolic blood pressure 123 mm[Hg] [facility] Work Phone: 11-26-2021 13:53-0500 Body mass index (BMI) [Ratio] 33.2 kg/m2 [facility] Work Phone: 11-26-2021 13:53-0500 Body temperature 98.4 [degF] [facility] Work Phone: 11-26-2021 13:53-0500 Body weight 77.11 kg [facility] Work Phone: 11-26-2021 13:53-0500 Diastolic blood pressure 77 mm[Hg] [facility] Work Phone: 11-26-2021 13:53-0500 Heart rate 70 /min [facility] Work Phone: 11-26-2021 13:53-0500 Respiratory rate 16 /min [facility] Work Phone: 11-26-2021 13:53-0500 SaO2% (BldA) [Mass fraction] 100 % [facility] Work Phone: 11-26-2021 13:53-0500 Systolic blood pressure 137 mm[Hg] [facility] Work Phone: Encounters Encounter Date Encounter Type Care Provider Facility Start: 08-27-2025 [facility] Facility :[facility] [place] Start: 08-24-2025 End: 08-24-2025 [facility] Facility:[facility] Start: 08-23-2025 End: 08-23-2025 Emergency department patient visit Dr. Yassine Link MD Work Phone: -Emergency Department Work Phone: Start: 08-03-2025 End: 08-03-2025 Subsequent hospital visit by physician [facility] Work Phone: Radiology Comment on above: Acute pain of right shoulder [M25.511] Start: 08-03-2025 End: 08-03-2025 [facility] Facility:[facility] Start: 07-30-2025 End: 08-03-2025 ambulatory German Pires SL[employer]S MANAGER[employer] M[employer]TER Work Phone: Internal Medicine [facility] Comment on above: Pain Start: 07-28-2025 End: 07-28-2025 Office outpatient visit 15 minutes German Pires SL[employer]S MANAGER.[employer] MOUNTER Work Phone: [facility] Comment on above: Acute pain of right shoulder (Primary Dx); Left foot pain; Sprain of right shoulder, unspecified shoulder sprain type, sequela; Pain in right foot; Family history of liver disease Start: 07-28-2025 End: 07-28-2025 ambulatory STEVIE LINK Facility:[facility] Start: 07-14-2025 End: 07-14-2025 ambulatory German Pires SLOTS MANAGER.CORE MOUNTER Work Phone: Internal Medicine [place] Comment on above: Meds Start: 07-03-2025 End: 07-03-2025 ambulatory STEVIE LINK Facility:[facility] Start: 05-26-2025 Non-patient / Non-visit Dr. Tiffany burgos MD -[facility] Work Phone: Start: 05-12-2025 End: 05-12-2025 Refill German Pires SLOTS MANAGER.CORE MOUNTER Work Phone: Internal Medicine [place] Comment on above: Refill Request Start: 04-27-2025 End: 04-29-2025 Telephone encounter German Pires SLOTS MANAGER.CORE MOUNTER Work Phone: [facility] [place] Comment on above: Patient Question Start: 04-24-2025 End: 04-24-2025 Office outpatient visit 15 minutes German Pires SLOTS MANAGER.CORE MOUNTER Work Phone: Internal Medicine [place] Comment on above: Partial thickness bu rn of right lower extremity, initial encounter (Primary Dx) Start: 04-24-2025 End: 04-24-2025 ambulatory STEVIE LINK Facility:[facility] Start: 03-16-2025 End: 03-20-2025 ambulatory German Pires SLOTS MANAGER.CORE MOUNTER Work Phone: Internal Medicine [place] Comment on above: Oxygen Start: 03-16-2025 End: 03-20-2025 Outreach Lab ROMELIA CUNNINGHAM MD [facility] Start: 03-03-2025 End: 05-28-2025 Telephone encounter Mallory Avinash CERVANTESAPPLICATIONS SYSTEMS ENGINEER Work Phone: General Surgery Start: 03-02-2025 End: 03-02-2025 Office outpatient visit 15 minutes German Pires APRN.CORE MOUNTER Work Phone: Internal Medicine [place] Comment on above: Pulmonary infiltrate s on CXR (Primary Dx); Gastroesophageal reflux disease, unspecified whether esophagitis present Start: 03-02-2025 End: 03-02-2025 Refill German Pires APRN.CORE MOUNTER Work Phone: Internal Medicine [place] Comment on above: Refill Request Start: 02-26-2025 End: 02-26-2025 Telephone encounter German Pires APRN.CORE MOUNTER Work Phone: Internal Medicine [place] Comment on above: Fax referral to [facility] Request Start: 02-23-2025 End: 04-25-2025 Follow-up encounter German Pires APRN.CORE MOUNTER Work Phone: Internal Medicine [place] Start: 02-23-2025 End: 02-23-2025 Subsequent hospital visit by physician [facility] [place] Work Phone: Radiology Comment on above: Pneumonia of left lo wer lobe due to infectious organism [J18.9] Start: 02-23-2025 End: 02-23-2025 ambulatory YASSINE LINK Facility:[facility] Start: 02-23-2025 End: 02-23-2025 Office outpatient visit 25 minutes German Pires APRN.CORE MOUNTER Work Phone: Internal Medicine [place] Comment on above: Pneumonia of left lo wer lobe due to infectious organism (Primary Dx); Influenza A; Hypoxia; Tobacco use disorder; Chest pain on breathing Start: 02-17-2025 End: 02-20-2025 Evaluation and management of inpatient DR YASSINE LINK MD Facility:[facility] Start: 02-16-2025 End: 02-16-2025 ambulatory YASSINE LINK Facility:[facility] Start: 02-16-2025 End: 02-16-2025 Office outpatient visit 25 minutes German Pires CORE MOUNTER Work Phone: Internal Medicine [place] Comment on above: Influenza A (Primary Dx); Gastroesophageal reflux disease, unspecified whether esophagitis present; Adverse effect of drug, initial encounter; Acute cough; Wheezing Start: 02-13-2025 End: 02-13-2025 Emergency department patient visit Dr. Yassine Link MD Work Phone: -Emergency Department Work Phone: Start: 02-13-2025 End: 02-13-2025 ambulatory YASSINE LINK Facility:[facility] Start: 02-13-2025 End: 02-13-2025 Patient encounter procedure Yassine Link MD Work Phone: Internal Medicine [place] Comment on above: Dehydration (Primary Dx); Subacute cough Start: 02-03-2025 End: 02-03-2025 Orders Only Mallory Marrero SLOTS MANAGER.APPLICATIONS SYSTEMS ENGINEER Work Phone: General Surgery Comment on above: Gastroesophageal ref lux disease, unspecified whether esophagitis present (Primary Dx); Epigastric pain; Abnormal weight loss Start: 01-29-2025 End: 01-29-2025 ambulatory MALLORY MARRERO Facility:[facility] Start: 01-27-2025 End: 01-27-2025 ambulatory YASSINE LINK Facility:[facility] Start: 01-27-2025 End: 01-27-2025 Office outpatient visit 15 minutes Mayda Madrigal MD Work Phone: Internal Medicine [place] Comment on above: Encounter to discuss test results (Primary Dx) Start: 01-26-2025 End: 01-26-2025 Patient encounter procedure Yassine Link MD Work Phone: Internal Medicine [place] Comment on above: Laryngitis, acute (P rimary Dx); Asthma with acute exacerbation, unspecified asthma severity, unspecified whether persistent Start: 01-26-2025 End: 01-26-2025 ambulatory YASSINE LINK Facility:[facility] Start: 01-22-2025 End: 01-22-2025 Subsequent hospital visit by physician [facility] (I-Stat) Work Phone: Cat Scan Comment on above: Peritonitis (HCC) [K 65.9] Start: 01-22-2025 End: 01-22-2025 ambulatory YASSINE LINK Facility:[facility] Start: 01-22-2025 End: 01-22-2025 Subsequent hospital visit by physician Ct Prep [facility] Cat Scan Start: 01-20-2025 End: 01-20-2025 Telephone encounter Yassine Link MD Work Phone: Internal Medicine [place] Comment on above: Patient Update Start: 01-20-2025 End: 01-20-[address] Yassine Link MD Work Phone: [facility] Work Phone: Start: 01-20-2025 End: 01-20-2025 Patient encounter procedure Mayda Madrigal MD Work Phone: Internal Medicine [place] Comment on above: Epigastric pain (Cathleen panfilo Dx); Peritonitis (HCC); Rebound tenderness Start: 01-20-2025 End: 01-20-2025 ambulatory Romelia Cunningham Facility:[facility] Start: 01-15-2025 End: 01-15-2025 Emergency department patient visit ULISES HERRERA [facility] Start: 01-15-2025 End: 01-15-2025 Emergency department patient visit ED PHYSICIAN PROVIDER -Emergency Department Work Phone: Start: 01-15-2025 End: 01-15-2025 ambulatory Nurse Intm/Famp Triage [facility] Work Phone: Nurse Phone Triage Comment on above: Vomiting Start: 01-13-2025 End: 02-13-2025 ambulatory Yassine Link MD Work Phone: [facility] Medicine [place] Start: 01-08-2025 End: 02-23-2025 Telephone encounter Mallory Marrero APRN.APPLICATIONS SYSTEMS ENGINEER Work Phone: General Surgery Start: 01-08-2025 End: 01-13-2025 ambulatory German Pranay CERVANTESCORE MOUNTER Work Phone: Internal Medicine [place] Comment on above: Dr Negrete Start: 01-08-2025 End: 01-08-2025 Patient encounter procedure Mallory Marrero APRN.APPLICATIONS SYSTEMS ENGINEER Work Phone: General Surgery Comment on above: Nausea (Primary Dx); Gastroesophageal reflux disease, unspecified whether esophagitis present; Epigastric pain; Abnormal weight loss; Dysphagia, unspecified type Start: 12-26-2024 End: 12-26-2024 ambulatory German Pires APRN.CORE MOUNTER Work Phone: Internal Medicine [place] Comment on above: Med Start: 12-23-2024 End: 12-23-2024 ambulatory [facility] Facility:[facility] Start: 12-23-2024 End: 12-23-2024 Office outpatient visit 25 minutes German Pires APRN.CORE MOUNTER Work Phone: Internal Medicine [place] Comment on above: Situational depressi on (Primary Dx); Nausea and vomiting, unspecified vomiting type; Hot flashes; Epigastric pain; Gastroesophageal reflux disease, unspecified whether esophagitis present; Uncomplicated asthma, unspecified asthma severity, unspecified whether persistent Start: 10-20-2024 End: 10-20-2024 ambulatory YASSINE LINK Facility:[facility] Start: 10-20-2024 End: 10-20-2024 Patient encounter procedure Yassine Link MD Work Phone: Internal Medicine [place] Comment on above: Dysuria (Primary Dx) ; Urinary frequency Start: 10-10-2024 End: 10-10-2024 Refill Beatrice Watters APRN.APPLICATIONS SYSTEMS ENGINEER Work Phone: Internal Medicine [place] Comment on above: Refill Request Start: 07-24-2024 End: 07-24-2024 Refill Yassine Link MD Work Phone: [facility] [place] Comment on above: Refill Request Start: 06-12-2024 End: 06-12-2024 ambulatory ROMELIA CUNNINGHAM MD Facility:[facility] Start: 06-12-2024 End: 06-12-2024 Patient encounter procedure ROMELIA CUNNINGHAM MD [facility] Start: 06-09-2024 End: 06-09-2024 Office outpatient visit 25 minutes German Pires SLOTS MANAGER.CORE MOUNTER Work Phone: Internal Medicine [place] Comment on above: Fall, subsequent enc ounter (Primary Dx); Sprain of right wrist, subsequent encounter; Cervicalgia; Hot flashes; Nausea and vomiting, unspecified vomiting type; Hematoma Start: 05-16-2024 Refill Beatrice wilson SLOTS MANAGER.APPLICATIONS SYSTEMS ENGINEER Work Phone: [facility] Medicine [place] Comment on above: Refill Request Start: 04-29-2024 End: 04-29-2024 ambulatory Yassine Link MD Work Phone: Internal Medicine [place] Comment on above: Bursitis of other bu rsa of right hip (Primary Dx) Start: 04-29-2024 End: 04-29-2024 Telemedicine consultation with patient Yassine Link MD Work Phone: Internal Medicine [place] Start: 04-24-2024 End: 04-24-2024 Patient encounter procedure Yassine Link MD Work Phone: Internal Medicine [place] Comment on above: Bursitis of other bu rsa of right hip (Primary Dx) Start: 04-15-2024 Refill Beatrice wilson SLOTS MANAGER.APPLICATIONS SYSTEMS ENGINEER Work Phone: [facility] Medicine [place] Comment on above: Refill Request Start: 03-23-2024 Refill Yassine herron MD Work Phone: Internal Medicine [place] Comment on above: Refill Request Start: 03-13-2024 End: 03-13-2024 Patient encounter procedure Gertrude Henry MD Work Phone: General Surgery Comment on above: Status post incision and drainage (Primary Dx) Start: 03-12-2024 Telephone encounter Gertrude Patrick MD Work Phone: General Surgery Start: 03-02-2024 End: 03-02-2024 [facility] Start: 02-25-2024 End: 02-25-2024 Office outpatient visit 15 minutes German Pires SLOTS MANAGER.CORE MOUNTER Work Phone: [facility] Medicine [place] Comment on above: Pilonidal cyst with abscess (Primary Dx); Abscess, gluteal, left Start: 02-11-2024 End: 02-11-2024 [facility] Start: 01-17-2024 End: 01-17-2024 [facility] Start: 01-17-2024 Refill Yassine herron MD Work Phone: [facility] [place] Comment on above: Refill Request Start: 01-10-2024 End: 01-10-2024 Office outpatient visit 25 minutes German Pires SLOTS MANAGER.CORE MOUNTER Work Phone: Internal Medicine [place] Comment on above: Pilonidal cyst with abscess (Primary Dx); Abscess, gluteal, left Start: 01-07-2024 End: 01-07-2024 Patient encounter procedure Gertrude Henry MD Work Phone: General Surgery Comment on above: Status post incision and drainage (Primary Dx) Start: 01-05-2024 End: 01-05-2024 [facility] Start: 01-02-2024 End: 01-02-2024 Emergency department patient visit JOLANTA Bhumika WILMAR DO [facility] Start: 01-02-2024 Telephone encounter Gertrude Patrick MD Work Phone: General Surgery Comment on above: Patient Update (Reinaldo nidal cyst) Start: 12-25-2023 End: 12-25-2023 Patient encounter procedure Gertrude Henry MD Work Phone: General Surgery Comment on above: Postoperative pain ( Primary Dx); Status post incision and drainage Start: 12-23-2023 End: 12-23-2023 [facility] Start: 12-23-2023 ambulatory Anu Morin RN NURSE BOOKMAKER'S CLERK Comment on above: Patient Update (Tina crawfordkenny ) Start: 12-22-2023 End: 12-22-2023 [facility] Start: 12-08-2023 End: 12-08-2023 [facility] Start: 12-07-2023 End: 09-30-2024 Telephone encounter Gertrude Henry MD Work Phone: General Surgery Comment on above: 12/20/2023 I & D REINALDO NIDAL CYST ABSCESS LODI Start: 11-25-2023 End: 11-25-2023 [facility] Start: 11-21-2023 End: 11-21-2023 Emergency department patient visit MAYI REAVES MD [facility] Start: 11-19-2023 End: 11-19-2023 [facility] Start: 11-11-2023 End: 11-11-2023 [facility] Start: 10-02-2023 ambulatory Yassine herron MD Work Phone: [facility] Medicine [place] Comment on above: Dr negrete Start: 10-01-2023 End: 10-01-2023 ambulatory Yassine Link MD Work Phone: [facility] Medicine [place] Comment on above: Asthma with acute ex acerbation, unspecified asthma severity, unspecified whether persistent (Primary Dx); Nausea and vomiting, unspecified vomiting type Start: 10-01-2023 End: 10-01-2023 Telemedicine consultation with patient Yassine Link MD Work Phone: [facility] Start: 09-21-2023 Telephone encounter Yassine weber MD Work Phone: [facility] Medicine [place] Comment on above: Pharmacist Call Start: 09-21-2023 End: 09-21-2023 [facility] Start: 07-03-2023 MC Get Medical Advice Yassine Link MD Work Phone: [facility] Medicine [place] Comment on above: Refill Start: 06-30-2023 End: 06-30-2023 [facility] Start: 06-01-2023 Refill Beatrice Older SLOTS MANAGER .APPLICATIONS SYSTEMS ENGINEER Work Phone: [facility] Medicine [place] Comment on above: Refill Request Start: 05-28-2023 End: 05-28-2023 Patient encounter procedure Yassine Link MD Work Phone: [facility] Medicine [place] Comment on above: Postoperative abdomi nal pain (Primary Dx); Gastroesophageal reflux disease without esophagitis Start: 05-27-2023 End: 05-27-2023 [facility] Start: 04-25-2023 End: 04-25-2023 [facility] Start: 04-11-2023 End: 04-11-2023 [facility] Start: 04-02-2023 Refill Beatrice Older SLOTS MANAGER .APPLICATIONS SYSTEMS ENGINEER Work Phone: [facility] Medicine [place] Comment on above: Refill Request Start: 03-12-2023 End: 03-12-2023 ambulatory Yassine Link MD Work Phone: [facility] Medicine [place] Comment on above: Pain of left shoulde r region (Primary Dx); Anxiety with depression; Thoracic outlet syndrome; Non-adherence to medical treatment Start: 03-12-2023 End: 03-12-2023 Telemedicine consultation with patient Yassine Link MD Work Phone: [facility] Start: 03-12-2023 End: 03-12-2023 Emergency department patient visit Dr. [facility]assine Link [facility] Start: 02-24-2023 End: 02-24-2023 Emergency department patient visit Dr. [facility]assine Link [facility] Start: 02-23-2023 Refill Beatrice JoyAPPLICATIONS SYSTEMS ENGINEER Work Phone: [facility] Medicine [place] Comment on above: Refill Request Start: 02-20-2023 Orders Only Estevan Vásquez Work Phone: Vascular Surg Dept Comment on above: Cervicalgia (Primary Dx) [facility] Patient Question Start: 02-05-2023 Refill German ROCKCORE MOUNTER Work Phone: Internal Medicine [place] Comment on above: Refill Request Start: 01-31-2023 End: 01-31-2023 Subsequent hospital visit by physician [facility] (I-Stat/1.5t) Work Phone: Radiology Comment on above: Canceled (Pt cx: Res cheduled) No Show Start: 01-29-2023 End: 01-29-2023 ambulatory German Pires SLOTS MANAGER.CORE MOUNTER Work Phone: [facility] Medicine [place] Comment on above: Thoracic outlet synd lyly (Primary Dx); Chronic post-operative pain; Cervicalgia; Chronic left shoulder pain Start: 01-29-2023 End: 01-29-2023 Telemedicine consultation with patient German Pires CORE MOUNTER Work Phone: [facility] Start: 12-30-2022 End: 12-30-2022 Emergency department patient visit Dr. [facility]assine Link [facility] Start: 12-29-2022 Telephone encounter Carol wagoner SLOTS MANAGER.APPLICATIONS SYSTEMS ENGINEER Work Phone: Vascular Surg Dept Comment on above: Orders Start: 12-28-2022 End: 12-28-2022 Patient encounter procedure Yassine Link MD Work Phone: Internal Medicine [place] Comment on above: Thoracic outlet synd lyly (Primary Dx) Start: 12-28-2022 End: 12-28-2022 ambulatory Hao Mcclellan PT [facility] Comment on above: Acute pain of right shoulder Start: 12-20-2022 Refill Yassine herron MD Work Phone: [facility] Medicine [place] Comment on above: Refill Request Start: 12-11-2022 End: 12-11-2022 ambulatory German Pires SLOTS MANAGER.CORE MOUNTER Work Phone: Internal Medicine [place] Comment on above: Thoracic outlet synd lyly (Primary Dx); Chronic post-operative pain; Cervicalgia; Chronic left shoulder pain Start: 12-11-2022 End: 12-11-2022 Telemedicine consultation with patient German Pires SLOTS MANAGER.CORE MOUNTER Work Phone: [facility] [place] Start: 12-08-2022 Patient encounter procedure Rosas Baugh MD Work Phone: General Surgery Start: 12-04-2022 Refill Yassine herron MD Work Phone: [facility] [place] Comment on above: Refill Request Start: 12-01-2022 End: 12-01-2022 Patient encounter procedure Yassine Link MD Work Phone: [facility] [place] Comment on above: Thoracic outlet synd lyly (Primary Dx) Start: 12-01-2022 End: 12-01-2022 Emergency department patient visit Dr. Yassine Link Work Phone: [facility]Emer[facility] Department Start: 11-30-2022 Telephone encounter Yassine weber MD Work Phone: Internal Medicine [place] Comment on above: Medication Question Start: 11-30-2022 End: 11-30-[address] Yassine Link Work Phone: [facility] Start: 11-29-2022 ambulatory Yassine herron MD Work Phone: [facility] Medicine [place] Comment on above: Shoulder Start: 11-09-2022 End: 11-09-2022 ambulatory Yassine Link MD Work Phone: Internal Medicine [place] Comment on above: Anxiety with depress ion (Primary Dx); Thoracic outlet syndrome Start: 11-09-2022 End: 11-09-2022 Telemedicine consultation with patient Yassine Link MD Work Phone: [facility] Start: 11-03-2022 End: 11-03-2022 Office outpatient visit 15 minutes German Pires SLOTS MANAGER.CORE MOUNTER Work Phone: Internal Medicine [place] Comment on above: Folliculitis (Primar y Dx); RLQ abdominal pain; Cyst of ovary, right Start: 10-22-2022 Refill Beatrice Older SLOTS MANAGER .APPLICATIONS SYSTEMS ENGINEER Work Phone: [facility] Medicine [place] Comment on above: Refill Request Start: 10-21-2022 End: 10-22-2022 Emergency department patient [facility]assine [facility] Start: 10-05-2022 End: 10-05-2022 Patient encounter procedure Yassine Link MD Work Phone: Internal Medicine [place] Comment on above: RLQ abdominal pain ( Primary Dx); Cyst of ovary, right Refill Request Start: 10-04-2022 Refill Beatrice Older SLOTS MANAGER .APPLICATIONS SYSTEMS ENGINEER Work Phone: Internal Medicine [place] Comment on above: Refill Request Start: 09-26-2022 End: 09-26-2022 Emergency department patient [facility]. [facility]assine [facility] Start: 09-26-2022 End: 09-26-2022 Patient encounter procedure Yassine Link MD Work Phone: Internal Medicine [place] Comment on above: Lower abdominal pain (Primary Dx) Start: 09-20-2022 End: 09-20-[address] Yassine Link Work Phone: [facility] Start: 09-16-2022 End: 09-16-2022 Emergency department patient visit Dr. Yassine Link Work Phone: [facility] Start: 08-31-2022 End: 08-31-2022 Patient encounter procedure Izabela Stephens SLOTS MANAGER.APPLICATIONS SYSTEMS ENGINEER Work Phone: [facility] Comment on above: TOS (thoracic outlet syndrome) (Primary Dx); Myofascial pain syndrome; Chronic left shoulder pain; Neck pain Start: 08-09-2022 ambulatory Yassine herron MD Work Phone: Internal Medicine [place] Comment on above: Meds Start: 08-03-2022 End: 08-03-[address] Yassine Link Work Phone: [facility] Start: 07-28-2022 End: 07-28-2022 Patient encounter procedure Yassine Link MD Work Phone: Internal Medicine [place] Comment on above: Overactive bladder ( Primary Dx); Bacteriuria Start: 07-27-2022 End: 07-27-2022 Emergency department patient visit [facility] Start: 07-27-2022 ambulatory Yassine herron MD Work Phone: [facility] [place] Comment on above: urinary symptoms; Fl ank Pain Start: 07-11-2022 End: 07-11-2022 Emergency department patient visit [facility] Start: 07-07-2022 ambulatory Yassine herron MD Work Phone: [facility] [place] Comment on above: Meds Start: 07-03-2022 ambulatory Yassine herron MD Work Phone: Internal Medicine [place] Comment on above: Lidocaine patches Start: 06-27-2022 ambulatory German Pires A PRN.CORE MOUNTER Work Phone: Internal Medicine [place] Comment on above: Pain management Start: 06-27-2022 Telephone encounter German wade SLOTS MANAGER.CORE MOUNTER Work Phone: [facility] Medicine [place] Comment on above: Refill Request Start: 06-20-2022 ambulatory No Pcp Claraate Nguyen [facility] Start: 06-20-2022 Telephone encounter Estevan Rivers se, MD Work Phone: Vascular Surg Dept Comment on above: Appointment Start: 06-19-2022 Telephone encounter Yassine weber MD Work Phone: [facility] [place] Comment on above: Future Appointment Start: 06-19-2022 End: 06-19-2022 Patient encounter procedure German Pires SLOTS MANAGER.CORE MOUNTER Work Phone: Internal Medicine [place] Comment on above: Thoracic outlet synd lyly (Primary Dx) Start: 05-30-2022 End: 05-30-2022 Emergency department patient visit [facility] Start: 05-23-2022 Chart abstracting Wesley MOTT Work Phone: Psychology Comment on above: Consult (Initial [facility] Pt Outreach) Consult ([facility] Pt Out reach F/U) Start: 05-23-2022 End: 05-23-2022 Patient encounter procedure Yassine Link MD Work Phone: Internal Medicine [place] Comment on above: Anxiety with depress ion (Primary Dx) Start: 05-09-2022 Refill Yassine herron MD Work Phone: [facility] [place] Comment on above: Refill Request Start: 05-04-2022 End: 05-04-2022 Patient encounter procedure Yassine Link MD Work Phone: [facility] [place] Comment on above: Thoracic outlet synd lyly (Primary Dx); Gastroesophageal reflux disease, unspecified whether esophagitis present; Uncomplicated asthma, unspecified asthma severity, unspecified whether persistent Start: 04-25-2022 Refill Beatrice JoyAPPLICATIONS SYSTEMS ENGINEER Work Phone: [facility] [place] Comment on above: Refill Request Start: 04-06-2022 Refill Yassine herron MD Work Phone: [facility] [place] Comment on above: Refill Request Start: 03-09-2022 End: 03-09-2022 [facility] Start: 02-24-2022 End: 02-24-2022 Patient encounter procedure German Pires APRN.CORE MOUNTER Work Phone: [facility] [place] Comment on above: Acute pain of right shoulder (Primary Dx); Pain, postoperative, acute; TOS (thoracic outlet syndrome); Acute upper back pain Start: 12-20-2021 End: 12-20-2021 [facility] Start: 11-26-2021 End: 11-26-2021 [facility] department patient visit [facility] [facility] Start: 06-13-2021 End: 06-13-2021 Subsequent hospital visit by physician [facility] Work Phone: Radiology Comment on above: Cough [R05] Start: 12-15-2020 End: 12-15-2020 Subsequent hospital visit by physician [facility] Work Phone: Radiology Comment on above: Knee injury, left, i nitial encounter [S89.92XA] Procedures Date Procedure Procedure Detail Performing Clinician Start: 08-03-2025 Radex shoulder compl ete minimum 2 views German Pires APRN.CORE MOUNTER Work Phone: Start: 02-23-2025 Radiologic exam ches t 2 views German Pires APRN.CORE MOUNTER Work Phone: Start: 02-13-2025 X-ray of chest, PA a nd lateral views Dr. Yassine Link MD Work Phone: Start: 02-13-2025 SARS-CoV-2, Influenz a & RSV (PCR) Dr. Yassine Link MD Work Phone: Start: 01-22-2025 Ct abdomen & pelvis w/contrast material Mayda Madrigal MD Work Phone: Start: 02-25-2025 Screening mammography Thalia Link MD Work Phone: Start: 10-20-2024 Urnls dip stick/tabl et rgnt auto w/o microscopy Yassine Link MD Work Phone: Start: 12-20-2023 Cyst - pilonidal (disorder) ROMELIA CUNNINGHAM MD Start: 11-11-2023 Computed tomography of abdomen and pelvis with intravenous contrast Start: 11-11-2023 US scan of gallbladder Start: 06-30-2023 X-ray of both feet Start: 05-27-2023 Computed tomography of abdomen and pelvis with intravenous contrast Start: 11-30-2022 Plain X-ray of shoulder Dr. Yassine Link Work Phone: Start: 10-22-[address] Yassine Link Work Phone: Start: 09-26-2022 Computed tomography of abdomen and pelvis with contrast Dr. Yassine Link Work Phone: Start: 07-28-2022 Urnls dip stick/tabl et rgnt auto w/o microscopy Yassine Link MD Work Phone: Start: 05-30-2022 US scan of gallbladder Start: 03-09-2022 Plain X-ray of shoulder Start: 12-20-2021 Plain X-ray of clavicle Start: 08-23-2021 Adult depression screening assessment German Pires SLOTS MANAGER.CORE MOUNTER Work Phone: Start: 06-13-2021 Radiologic exam ches t 2 views Fatemeh Tejada SLOTS MANAGER.APPLICATIONS SYSTEMS ENGINEER Work Phone: Start: 12-15-2020 Radiologic exam knee complete 4/more views Coby Montana PA-C Work Phone: Colonoscopy MAYI REAVES MD H/O: surgery History of excis ion of pilonidal cyst Hysterectomy MAYI REAVES MD Shoulder region stru cture (body structure) MAYI REAVES MD Specimen from breast obtained by biopsy (specimen) MAYI REAVES MD Urine culture Dr. Yassine Bolivar Work Phone: Plan of Treatment Date Care Activity Detail Author Start: 07-28-2026 Annual PCP Team Shell Mold Bonder luis alberto Disease Visit Annual PCP Team Chronic Disease Visit [facility] Start: 07-03-2026 Annual PCP Team Shell Mold Bonder luis alberto Disease Visit Annual PCP Team Chronic Disease Visit [facility] Start: 02-13-2026 Annual PCP Team Shell Mold Bonder luis alberto Disease Visit Annual PCP Team Chronic Disease Visit [facility] Start: 01-27-2026 Annual PCP Team Shell Mold Bonder luis alberto Disease Visit Annual PCP Team Chronic Disease Visit [facility] Start: 01-26-2026 Annual PCP Team Shell Mold Bonder lius alberto Disease Visit Annual PCP Team Chronic Disease Visit [facility] Start: 01-20-2026 Annual PCP Team Shell Mold Bonder luis alberto Disease Visit Annual PCP Team Chronic Disease Visit [facility] Start: 01-20-2026 Screening for malign ant neoplasm of breast Mammogram Screening [facility] Start: 10-20-2025 Annual PCP Team Shell Mold Bonder luis alberto Disease Visit Annual PCP Team Chronic Disease Visit [facility] Start: 10-20-2025 Covid-19 Vaccine ( season) Covid-19 Vaccine () [facility] Comment on above: Postponed from 07/27 (Declined at this time) Start: 09-28-2025 End: 09-28-2025 Patient encounter procedure 09/28/2025 1:00 PM EST Office Visit [facility] [address] [place] [address] Yassine Link MD [address] [place] [address] 2 month f/u [facility] Comment on above: 2 month f/u Start: 08-23-2025 End: 08-23-2025 [facility] Start: 07-27-2025 Influenza vaccination [facility] Start: 05-25-2025 Influenza vaccination Influenza Vacc ine (#1) [facility] Comment on above: Postponed from 09/01 /2024 (Declined at this time) Start: 04-29-2025 Annual PCP Team Shell Mold Bonder luis alberto Disease Visit Annual PCP Team Chronic Disease Visit [facility] Start: 04-24-2025 Annual PCP Team Shell Mold Bonder luis alberto Disease Visit Annual PCP Team Chronic Disease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 APRN.CORE MOUNTER - 02/16/2025 7:01 AM EDT Subjective ?Quick Links Last Note in Specialty Snapshot Edit RFV/CC Patient ID: Anne is a 39 year old female who presents for Hospital F/U. HPI Presents for emergency department follow-up visit. She was seen at [facility] 2024 with cough shortness of breath body aches nausea nasal congestion and drainage and back pain that had been getting worse 2 weeks prior to arrival. Chest x-ray was completed and negative for acute findings. Lab work was unremarkable. She was treated with IV fluids and felt improved. She was discharged home and advised to push fluids, Tylenol andibuprofen as needed. Provided with codeine cough syrup. [...] making. BP 99/61 Pulse 98 Temp 37.7 C (99.9 F) Resp 16 Wt 63 kg (138 lb 14.2 oz) LMP 05/16/2015 SpO2 95% BMI 27.13 kg/m Physical Exam Vitals and nursing note reviewed. Constitutional: Appearance: She is ill-appearing. HENT: Head: Normocephalic and atraumatic. Right Ear: Tympanic membrane and ear canal normal. Left Ear: Tympanic membrane and ear canal normal. Nose: Mucosal edema and rhinorrhea present. Right Sinus: No maxillary sinus tenderness or frontal sinus tenderness. Left Sinus: No maxillary sinus tenderness or frontal sinus tenderness. Mouth/Throat: Lips: [place]. Mouth: Mucous membranes are moist. Pharynx: Oropharynx [...] Level: 4 - Moderate documented in this encounterMemorial Health [facility]03-21-2025 Radiology Diagnostic study note [facility] Imaging Services [address] [place] [address] [id number] Chest PA and Lateral MR#: [id number] Acct: [id number] Name: ANNE CHUNG Rep #: [id number] : 1985 F 39 From: Jody Dominguez MD PCP: Dr. Yassine Link MD Status: R EG ER Study:Chest PA and Lateral Date of Exam: 02/13/25 Exam# [id number] Ordering Dr: Jamarcus Persaud DO PROCEDURE: CHEST PA AND LATERAL 02/13/2025 REASON FOR EXAM: 39-year-old female, cough, shortness of breath and chills. TECHNIQUE: Frontal and lateral views of the chest. COMPARISON: Chest radiograph 04/26/2020. FINDINGS: Surgical clips within the left breast and left lower neck. The heart size is normal. The mediastinal contour is unremarkable. No focal consolidation, pleural effusion or pneumothorax. The bones are unremarkable. RAD/Chest PA and Lateral IMPRESSION: NEGATIVE CHEST Reading Location: [facility] CC: Dr. Jamarcus Persaud DO; Dr. Yassine Link MD ~ Non Emergency Services Ambulance Driver: Signed [facility]03-21-2025 Instructions* Patient Instructions* Yassine Link MD - 02/13/2025 2:28 PM EDT Go to ER for assessment and IV fluids. documented in this encounterMemorial Health System [facility]03-21-2025 NoteHNO ID: [id number] Author: YASSINE LINK MD Service: ? Author Type: Physician Type: Progress Notes Filed: 02/13/2025 14:42 Note Text: This note was created using Witsbitsriter. Subjective Anne Chung is a 39 year [...] I gave handoff to ER provider. Yassine Link, [facility]03-21-2025 History of Present illness Narrative* Yassine Link MD - 02/13/2025 2:22 PM EDT This note was created using Witsbitsriter. Subjective Anne Chung is a 39 year [...] BP (!) 80/44 Pulse 103 Temp 37.2 C (99 F) Ht 152.4 cm (5') Wt 63.5 kg (139 lb 15.9 oz) LMP 05/16/2015 SpO2 99% BMI 27.34 kg/m Physical Exam Constitutional: Appearance: She is ill-appearing. [...] I gave handoff to ER provider. Yassine Link MD documented in this encounterMemorial Health System [facility]03-11-2025 NoteHNO ID: [id number] Author: MALLORY MARRERO APRN.CNP Service: ? Author Type: Nurse Practitioner Type: Progress Notes Filed: 02/03/2025 11:39 Note Text: New EGD order placedFostoria City Hospital03-11-2025 History of Present illness Narrative* Mallory Marrero APRN.CNP - 02/03/2025 11:39 AM EDT New EGD order placed documented in this encounterMemorial Health System [facility]03-04-2025 NoteHNO ID: [id number] Author: MAYDA MADRIGAL MD Service: ? Author Type: Physician Type: Progress Notes Filed: 01/27/2025 11:09 Note Text: Reason for Visit Anne Chung is a 39 year oldfemale who presents here Patient presents with: Recheck: Ct scan results, saw Dr Link yesterday evening 01/26/25, for cough and afebrile, sweating, no sore throat, speaking softly, patient was given prednisone and 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 Health Maintenance Hepatitis B Vaccine(1 [...] pain. Going for the EGD tomorrow in [place]. She was evaluated last night by pcp for a viral, she notes she is having a viral, was given some prednisone which she has yet to draft roller picker and wants me to write a [...] Left 10/23/2018 lysis of adhesions, Dr. Romelia OHARAS ABD PRTMANDOMENTUM DX W/WO SPEC BR/WA SPX [...] Start date: 10/26/1992 Smokeless tobacco: Never Tobacco commen (more content not included)...[facility] 01-27-2025 History of Present illness Narrative* Mayda Madrigal MD - 01/27/2025 10:41 AM EST Reason for Visit Anne Chung is a 39 year oldfemale who presents here Patient presents with: Recheck: Ct scan results, saw Dr Link yesterday evening 01/26/25, for cough and afebrile, sweating, no sore throat, speaking softly, patient was given prednisone and 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 Health Maintenance Hepatitis B Vaccine(1 of 3 - 19+ 3-dose series) Pneumococcal Vaccine(1 of 2 - PCV) DTaP,Tdap,Td Vaccine(2 - Td or Tdap) Mammogram Screening HPI Abdominal pain: She has been having pain in the abdomen for the past 2 months, she is going througha dissolution of marriage which has been stressful [...] pain. Going for the EGD tomorrow in [place]. She was evaluated last night by pcp for a viral, she notes she is having a viral, was given some prednisone which she has yet to draft roller picker and wants me to write a letter for leave today for coming in. She is the same as she was yesterday at pcp with not new symptoms or worsening. No problem-specific Assessment & Plan notes found for this encounter. PAST [...] lysis of adhesions, Dr. Romelia SEGURA ABD PRTM&OMENTUM DX W/WO SPEC BR/WA SPX 2014 Laparoscopy [...] oz) LMP 05/16/2015 SpO2 99% BMI 28.16 kg/m General appearance: Well appearing, alert, in a [...] note. Please excuse any unintended typographical errors. documented in this encounterMemorial Health [facility]03-04-2025 NoteHNO ID: [id number] Author: YASSINE LINK MD Service: ? Author Type: Physician Type: Progress Notes Filed: 01/27/2025 07:26 Note Text: This note was created using Witsbitsriter. Subjective Anne Chung is a 39 year [...] exacerbation. - PREDNISONE 20 MG TABLET Yassine Link [facility]03-04-2025 History of Present illness Narrative* Yassine Link MD - 01/27/2025 7:16 AM EST This note was created using NoteWriter. Subjective Anne Chung is a 39 year old female who presents with complaint of cough- nonproductive and withsome wheezing heard for 5 days. Associated symptoms [...] Size: Large Adult) Pulse 88 Temp 37.2 C (98.9 F) (Temporal) Resp 20 Wt 66.8 kg (147 lb 4.3 oz) LMP 05/16/2015 BMI 28.76 kg/m Physical Exam Constitutional: General: She is [...] exacerbation. - PREDNISONE 20 MG TABLET Yassine Link MD documented in this encounterMemorial Health System [facility]03-03-2025 Instructions* Patient Instructions* Yassine Link MD - 01/26/2025 7:45 PM EST You have a viral illness for which [...] days, such as taking additions steps for vacuum cleaner repairer air, hygiene, masks, physical distancing, and or testing when you will be around other people indoors. For more information go to https://www.cdc.gov/respiratory-viruses/prevention/index.html documented in this encounterMemorial Health System [facility]02-27-2025 History of Present illness Narrative* Rhoda Chase, RT(R) - 01/22/2025 9:20 AM EST Radiology Service Progress Note DATE OF SERVICE: [...] Assigned female at . status: : No status:NO. PATIENT RELEVANT IMPLANT DATA REVIEWED: Yes PATIENT PRESENTS WITH AN IMPLANTABLE OR ATTACHED ASSEMBLY DETAILER: No ALLERGIES: Reviewed and unchanged CONTRAST ALLERGY: [...] DEPARTMENT: CT; Exam(s) Completed: Abdomen/Pelvis SIGNATURE: RT Alessio([place]) PATIENT NAME: Anne Chung DATE: January 22, 2025 TIME: 3:58 PM documented in this encounterMemorial Health System [facility]02-27-2025 NoteHNO ID: [id number] Author: RHODA CHASE RT(R) Service: ? Author Type: Rn Field Type: Progress Notes Filed: 01/22/2025 15:58 Note [...] PATIENT PRESENTS WITH AN IMPLANTABLE OR ATTACHED ASSEMBLY DETAILER: No ALLERGIES: Reviewed and unchanged CONTRAST ALLERGY: [...] Chung DATE: January 22, 2025 TIME: 3:58 [facility]02-25-2025 NoteHNO ID: [id number] Author: MAYDA MADRIGAL MD Service: ? Author Type: Physician Type: Progress Notes Filed: 01/20/2025 16:08 Note Text: Reason for Visit Anne Chung is a 39 year oldfemale who presents here Patient presents with: Abdominal Pain: Stomach pain for 2 months upper abdomen, [place] ER 01/15/25 Health Maintenance Hepatitis B Vaccine(1 [...] (CLIMARA) 0.05 mg/24 hr patch PARoxetine (PAXIL) (more content not included)...[facility] 01-20-2025 History of Present illness Narrative* Mayda Madrigal MD - 01/20/2025 2:06 PM EST Reason for Visit Anne Chung is a 39 year oldfemale who presents here Patient presents with: Abdominal Pain: Stomach pain for 2 months upper abdomen, [place] ER 01/15/25 Health Maintenance Hepatitis B Vaccine(1 of 3 - 19+ 3-dose series) Pneumococcal Vaccine(1 of 2 - PCV) DTaP,Tdap,Td Vaccine(2 - Td or Tdap) Mammogram Screening HPI Abdominal pain: She has been having pain in the abdomen for the past 2 months, she is going througha dissolution of marriage which has been stressful [...] not drink much alcohol.. No problem-specific Assessment & Plan notes found for this encounter. PAST [...] lysis of adhesions, Dr. Romelia SEGURA ABD PRTM&OMENTUM DX W/WO SPEC BR/WA SPX 2014 Laparoscopy [...] lb) LMP 05/16/2015 SpO2 100% BMI 28.71 kg/m General appearance: Well appearing, alert, in no [...] I felt that she had a mass orknot in that area, which I thought could [...] note. Please excuse any unintended typographical errors. documented in this encounterMemorial Health System [facility]02-25-2025 Telephone encounter Note * Telephone Encounter - Fabiana Mcmahan RN - 01/20/2025 10:19 AM EST Patient calls and states that she continues to have severe abdominal pain. Patient states that she was seen at [facility] ER and was prescribed [place] for the pain. Patient reports that [place] isnot touching the pain. Patient is asking if provider can prescribe something for the pain. Advised patient that if she has that much pain then she should go back to ER to be evaluated again. Patient voiced understanding. Fabiana Mcmahan RN [facility]02-25-2025 Miscellaneous Notes* Telephone Encounter - Fabiana Mcmahan RN - 01/20/2025 10:19 AM EST Patient calls and states that she continues to have severe abdominal pain. Patient states that she was seen at [facility] ER and was prescribed [place] for the pain. Patient reports that [place] isnot touching the pain. Patient is asking if provider can prescribe something for the pain. Advised patient that if she has that much pain then she should go back to ER to be evaluated again. Patient voiced understanding. Fabiana Mcmahan RN documented in this encounterMemorial Health System [facility]02-20-2025 Hospital Discharge instructions Patient Education 01/15/2025 17:48:58 Gastritis or Ulcer (No Antibiotic Treatment) Gastritis or Ulcer, No Antibiotic Treatment Gastritis is irritation and inflammation of the stomach lining. This means the lining is red and swollen. It can cause shallow sores in the stomach lining called erosions. An ulcer is a deeper open sore in the lining of the stomach. It may also occur in the first part of the small intestine (duodenum). The causes and symptoms of gastritis and ulcers are very similar. Causes and risk factors for both problems can include: Long-term use of nonsteroidal anti-inflammatory drugs (NSAIDs), such as aspirin and ibuprofen H. pylori bacteria infection Tobacco use Alcohol use Certain other conditions such as immune disorders, certain medicines (high-dose iron supplements) and street drugs (such as cocaine) Symptoms for both problems can include: Dull or burning pain in the upper part of the belly Loss of appetite Heartburn or upset stomach Frequent burping Bloated feeling Nausea with or without vomiting You likely had an evaluation to help find the exact cause and extent of your problem. This may haveincluded a health history, exam, and certain tests. Results showed that your problem is not due to H. pylori infection. For this reason, you don't needantibiotics as part of your treatment. Whether your problem is gastritis or an ulcer, you will still need to take other medicines, however. You will also need to follow instructions to help reduce stomach irritation so your stomach can heal. Home care Take any medicines you re prescribed exactly as directed. Common medicines used to treat gastritis include: oAntacids. These help neutralize the normal acids in your stomach. oProton pump inhibitors. These block your stomach from making any acid. oH2 blockers. These reduce the amount of acid your stomach makes. oBismuth subsalicylate. This helps protect the lining of your stomach from acid. Don't take any NSAIDs during your treatment. If you take NSAID to help treat other health problems,tell your healthcare provider. He or she may need to adjust your medicine plan or change the dosage. Don t use tobacco. Also don t drink alcohol. These products can increase the amount of acid your stomach makes. This can delay healing. It can also worsen symptoms. Follow-up care Follow up with your healthcare provider, or as advised. In some cases, more testing may be needed. When to seek medical advice Call your healthcare provider right away if any of these occur: Fever of 100.4 F (38 C) or higher, or as directed by your healthcare provider Stomach pain that worsens or moves to the lower right part of belly Extreme fatigue Weakness or dizziness Continued weight loss Frequent vomiting, blood in your vomit, or coffee ground-like substance in your vomit Black, tarry, or bloody stools Call 911 Call 911 if any of these occur: Chest pain appears or worsens, or spreads to the back, neck, shoulder, or arm Unusually fast heart rate Trouble breathing or swallowing Confusion Extreme drowsiness or trouble waking up Fainting Large amounts of blood present in vomit or stool [id number] [employer]. [address] [place] [address]872. All rights reserved. This information is not intended as a substitute for professional medical care. Always follow yourhealthcare professional's instructions. Follow Up Care 01/15/2025 14:55:55 With:YASSINE LINK MD Address: [address] [place] [address]- When:2-4 days [facility] 02-20-2025 Note Discharge Instructions Thank you for allowing [facility] to assist you with your healthcare needs. The following is importantdischarge information regarding your hospital visit. Diagnosis from Today's Visit Abdominal pain What to Do Next Instructions from Your Care Team No qualifying data available. Post Acute Orders No qualifying data available. You Need to Schedule the Following Appointments Follow Up with YASSINE LINK MD When:Within 2-4 days Where:[address] [place] [address]- Allergies Bee Stings swelling Tessalon Perles rash amLODIPine hives morphine hives penicillin hives Medications Please ask your primary doctor or pharmacist before taking any other medication not listed, including over the counter drugs, herbal medications, vitamins and or supplements as they may interact withyour home medications. What How Much When Why Instructions Last Dose New acetaminophen-hydrocodone ([place] 325- 5 mg oral tablet) 1 tab(s) by mouth Every 6 hours as needed for as needed for pain Abdominal pain Duration: 3 Days Printed Prescription Changed ondansetron (ondansetron 4 mg oral tablet, disintegrating) 1 tab(s) by mouth Every 8 hours as needed for as needed for nausea/vomiting Changed ondansetron (ondansetron 4 mg oral tablet, disintegrating) 1 tab(s) by mouth Every 6 hours as needed for Nausea/Vomiting Duration: 4 Days Printed Prescription Unchanged albuterol (Ventolin HFA MDI (90 mcg/ inh) inhalation aerosol) Unchanged estradiol (Climara 0.05 mg/ 24 hours weekly transdermal film, extended release) 1 patch(es) Topical Every week Duration: 90 Days Unchanged LORazepam (LORazepam 0.5 mg oral tablet) TAKE 1 TABLET BY MOUTH AT BEDTIME NEEDED FOR ANXIETY FOR UP TO 60 DAYS Unchanged testosterone (Testosterone (Eqv-AndroGel Packets) 20.25 mg/ 1.25 g (1.62%) transdermal gel) 1 Packet(s) Transdermal Once a day (in the morning) Premature menopause on HRT Low libido Duration: 30 Days apply to skin Please take this list to your next doctor s visit. Bring all medications you take, including over the counter medications, herbals and other supplements with you to your doctor s visit. Patients and families are reminded to discard old lists and to update any records with all medication providers or retail pharmacies. Medication Leaflets ondansetron (oral) (on ORI anne) What is the most important information I should know about ondansetron? Tell your doctor about all your other medicines. Some drugs should not be used with ondansetron. What is ondansetron? Ondansetron is used to prevent nausea and vomiting that may happen with certain cancer medicines (chemotherapy), or after surgery, or radiation treatment . Ondansetron may be used for purposes not listed in this medication guide. What should I discuss with my health care provider before taking ondansetron? You should not use ondansetron if you are allergic to it or similar medicines (dolasetron, granisetron, palonosetron). Some drugs should not be used with ondansetron. Your treatment plan may change if you also use apomorphine. Tell your doctor if you have or have ever had: an electrolyte imbalance (such as low blood levels of potassium or magnesium); congestive heart failure, slow heartbeats; heart rhythm disorder such as long QT syndrome (in you or a family member); an obstruction in the stomach or intestines, a change in bowel habits; a surgery on your stomach or intestines; or severe liver disease. The orally disintegrating tablet may contain phenylalanine and could be harmful if you have phenylketonuria (PKU). Tell your doctor if you also use stimulant medicine, opioid medicine, herbal products, or medicine for depression, mental illness, Parkinson's disease, migraine headaches, serious infections, or prevention of nausea and vomiting. An interaction with ondansetron could cause a serious condition called serotonin syndrome. Tell your doctor if you are or . Ondansetron is not approved for use by anyone younger than 4 years old. How should I take ondansetron? Follow all directions on your prescription label and read all medication guides or instruction sheets. Use the medicine exactly as directed. Ondansetron is usually taken just before surgery, chemotherapy, or radiation treatment. Follow yourdoctor's dosing instructions very carefully. Measure liquid medicine with the supplied measuring device (not a kitchen spoon). To take the orally disintegrating tablet: Keep the tablet in its blister pack until you are ready to take it. Open the package and peel back the foil. Use dry hands to remove the orally disintegrating tablet and place it in your mouth. Do not push a tablet through the foil or you may damage the tablet. Allow the orally disintegrating tablet to dissolve in your mouth without chewing. Do not swallow whole. Store in the original container at room temperature away from moisture, heat, and light. Store liquid medicine in an upright position. What happens if I miss a dose? Ondansetron is used when needed. If you are on a dosing schedule, skip any missed dose. Do not use two doses at one time. What happens if I overdose? Seek emergency medical attention or call the Poison Help line at . What should I avoid while taking ondansetron? Follow your doctor's instructions about any restrictions on food, beverages, or activity. What are the possible side effects of ondansetron? Get emergency medical help if you have signs of an allergic reaction: hives, difficult breathing, swelling of your face, lips, tongue, or throat. Seek medical attention right away if you have symptoms of serotonin syndrome such as: agitation, hallucinations, fever, sweating, shivering, fast heart rate, muscle stiffness, twitching, loss of coordination, nausea, vomiting, or diarrhea. Seek emergency medical help if you have signs of a heart attack: chest pain that spreads to your jaw or shoulder, nausea, and sweating. Call your doctor at once if you have: severe stomach pain, bloating, constipation, or any change in bowel habits; or dizziness, feeling lightheaded, fainting, slow, fast, or uneven heartbeats. Common side effects may include: diarrhea or constipation; headache; shortness of breath, rapid breathing, fast heartbeats; or feeling unwell, tiredness. This is not a complete list of side effects and others may occur. Call your doctor for medical advice about side effects. You may report side effects to FDA at 2-781-IEW-6554. What other drugs will affect ondansetron? Ondansetron can cause a serious heart problem. Your risk may be higher if you also use certain other medicines for infections, asthma, heart problems, high blood pressure, depression, mental illness,cancer, malaria, or HIV. Many drugs can affect ondansetron. This includes prescription and tfhn-vbd-bljvwzv medicines, vitamins, and herbal products. Not all possible interactions are listed here. Tell your doctor about all other medicines you use. Where can I get more information? Your doctor or pharmacist can provide more information about ondansetron. Remember, keep this and all other medicines out of the reach of children, never share your medicines with others, and use this medication only for the indication prescribed. Every effort has been made to ensure that the information provided by [employer]. ('[employer]') is accurate, up-to-date, and complete, but no guarantee is made to that effect. Drug information contained herein may be time sensitive. [employer] information has been compiled for use by healthcare practitioners and consumers in the [place] and therefore [employer] does not warrant that uses outside of the [place] are appropriate, unless specifically indicated otherwise. [employer] drug information does not endorse drugs, diagnose patients or recommend therapy. [employer] drug information isan informational resource designed to assist licensed healthcare practitioners in caring for their p atients and/or to serve consumers viewing this service as a supplement to, and not a substitute for, the expertise, skill, knowledge and judgment of healthcare practitioners. The absence of a warningfor a given drug or drug combination in no way should be construed to indicate that the drug or drug combination is safe, effective or appropriate for any given patient. [employer] does not assume any responsibility for any aspect of healthcare administered with the aid of information [employer] provides. The information contained herein is not intended to cover all possible uses, directions, precautions, warnings, drug interactions, allergic reactions, or adverse effects. If you have questions about the drugs you are taking, check with your doctor, nurse or pharmacist. Copyright 3833-2277 [employer]. Version: 17.01. Revision Date: 08/19/2024. acetaminophen and hydrocodone (a SEET a MIN oh fen and kevin OLSON done) Verdrocet What is the most important information I should know about acetaminophen and hydrocodone? MISUSE OF OPIOID MEDICINE CAN CAUSE ADDICTION, OVERDOSE, OR . Keep the medication in a place where others cannot get to it. Taking opioid medicine during may cause life-threatening withdrawal symptoms in the . Fatal side effects can occur if you use opioid medicine with alcohol, or with other drugs that cause drowsiness or slow your breathing. Stop taking this medicine and call your doctor right away if you have skin redness or a rash that spreads and causes blistering and peeling. What is acetaminophen and hydrocodone? Acetaminophen and hydrocodone is a combination medicine used to relieve moderate to severe pain. Acetaminophen and hydrocodone contains an opioid medicine, and may be habit-forming. Acetaminophen and hydrocodone may also be used for purposes not listed in this medication guide. What should I discuss with my healthcare provider before taking acetaminophen and hydrocodone? You should not use this medicine if you are allergic to acetaminophen or hydrocodone, or if you have: severe asthma or breathing problems; or a blockage in your stomach or intestines. Tell your doctor if you have ever had: breathing problems, sleep apnea (breathing stops during sleep); liver disease; a drug or alcohol addiction; kidney disease; a head injury or seizures; urination problems; or problems with your thyroid, pancreas, or gallbladder. If you use opioid medicine while you are , your baby could become dependent on the drug. This can cause life-threatening withdrawal symptoms in the baby after it is born. Babies born dependent on opioids may need medical treatment for several weeks. Ask a doctor before using opioid medicine if you are . Tell your doctor if you notice severe drowsiness or slow breathing in the nursing baby. How should I take acetaminophen and hydrocodone? Follow all directions on your prescription label. Never take this medicine in larger amounts, or for longer than prescribed. An overdose can damage your liver or cause . Tell your doctor if you feel an increased urge to use more of this medicine. Never share this medicine with another person, especially someone with a history of drug abuse or addiction. MISUSE CAN CAUSE ADDICTION, OVERDOSE, OR . Keep the medicine in a place where others cannot get to it. Selling or giving away this medicine is against the law. Measure liquid medicine carefully. Use the dosing syringe provided, or use a medicine dose-measuring device (not a kitchen spoon). If you need surgery or medical tests, tell the doctor ahead of time that you are using this medicine. You should not stop using this medicine suddenly. Follow your doctor's instructions about tapering your dose. Store at room temperature away from moisture and heat. Keep track of your medicine. You should be aware if anyone is using it improperly or without a prescription. Do not keep leftover opioid medication. Just one dose can cause in someone using this medicine accidentally or improperly. Ask your pharmacist where to locate a drug take-back disposal program.If there is no take-back program, flush the unused medicine down the toilet. What happens if I miss a dose? Since this medicine is used for pain, you are not likely to miss a dose. Skip any missed dose if itis almost time for your next dose. Do not use two doses at one time. What happens if I overdose? Seek emergency medical attention or call the Poison Help line at . An overdose of this medicine can be fatal, especially in a child or other person using the medicine without a prescription. Overdose symptoms may include nausea, vomiting, sweating, severe drowsiness, pinpoint pupils, slow breathing, or no breathing. Your doctor may recommend you get naloxone (a medicine to reverse an opioid overdose) and keep it with you at all times. A person caring for you can give the naloxone if you stop breathing or don't wake up. Your caregiver must still get emergency medical help and may need to perform CPR (cardiopulmonary resuscitation) on you while waiting for help to arrive. Anyone can buy naloxone from a pharmacy or local health department. Make sure any person caring foryou knows where you keep naloxone and how to use it. What should I avoid while taking acetaminophen and hydrocodone? Avoid driving or operating machinery until you know how this medicine will affect you. Dizziness ordrowsiness can cause falls, accidents, or severe injuries. Do not drink alcohol. Dangerous side effects or could occur. Ask a doctor or pharmacist before using any other medicine that may contain acetaminophen (sometimes abbreviated as APAP). Taking certain medications together can lead to a fatal overdose. What are the possible side effects of acetaminophen and hydrocodone? Get emergency medical help if you have signs of an allergic reaction: hives; difficulty breathing; swelling of your face, lips, tongue, or throat. Opioid medicine can slow or stop your breathing, and may occur. A person caring for you should give naloxone and/or seek emergency medical attention if you have slow breathing with long pauses,blue colored lips, or if you are hard to wake up. In rare cases, acetaminophen may cause a severe skin reaction that can be fatal. This could occur even if you have taken acetaminophen in the past and had no reaction. Stop taking this medicine and call your doctor right away if you have skin redness or a rash that spreads and causes blistering andpeeling. Call your doctor at once if you have: noisy breathing, sighing, shallow breathing, breathing that stops; a light-headed feeling, like you might pass out; liver problems--nausea, upper stomach pain, tiredness, loss of appetite, dark urine, rishi-colored stools, jaundice (yellowing of the skin or eyes); low cortisol levels-- nausea, vomiting, loss of appetite, dizziness, worsening tiredness or weakness; o high levels of serotonin in the body--agitation, hallucinations, fever, sweating, shivering, fast heart rate, muscle stiffness, twitching, loss of coordination, nausea, vomiting, diarrhea. Serious breathing problems may be more likely in older adults and in those who are debilitated or have wasting syndrome or chronic breathing disorders. Common side effects include: dizziness, drowsiness, feeling tired; nausea, vomiting, stomach pain; constipation; or headache. This is not a complete list of side effects and others may occur. Call your doctor for medical advice about side effects. You may report side effects to FDA at 6-747-XOC-6282. What other drugs will affect acetaminophen and hydrocodone? You may have breathing problems or withdrawal symptoms if you start or stop taking certain other medicines. Tell your doctor if you also use an antibiotic, antifungal medication, heart or blood pressure medication, seizure medication, or medicine to treat HIV or hepatitis C. Opioid medication can interact with many other drugs and cause dangerous side effects or . Be sure your doctor knows if you also use: cold or allergy medicines, bronchodilator asthma/COPD medication, or a diuretic ('water pill'); medicines for motion sickness, irritable bowel syndrome, or overactive bladder; other opioids--opioid pain medicine or prescription cough medicine; a sedative like Valium--diazepam, alprazolam, lorazepam, Xanax, Klonopin, Versed, and others; drugs that make you sleepy or slow your breathing--a sleeping pill, muscle relaxer, medicine to treat mood disorders or mental illness; drugs that affect serotonin levels in your body--a stimulant, or medicine for depression, Parkinson's disease, migraine headaches, serious infections, or nausea and vomiting. This list is not complete. Other drugs may affect acetaminophen and hydrocodone, including prescription and qdip-srq-buswuda medicines, vitamins, and herbal products. Not all possible interactions are listed here. Where can I get more information? Your doctor or pharmacist can provide more information about acetaminophen and hydrocodone. Remember, keep this and all other medicines out of the reach of children, never share your medicines with others, and use this medication only for the indication prescribed. Every effort has been made to ensure that the information provided by [employer]') is accurate, up-to-date, and complete, but no guarantee is made to that effect. Drug information contained herein may be time sensitive. [employer] information has been compiled for use by healthcare practitioners and consumers in the [place] and therefore [employer] does not warrant that uses outside of the [place] are appropriate, unless specifically indicated otherwise. [employer] drug information does not endorse drugs, diagnose patients or recommend therapy. [employer] drug information isan informational resource designed to assist licensed healthcare practitioners in caring for their p atients and/or to serve consumers viewing this service as a supplement to, and not a substitute for, the expertise, skill, knowledge and judgment of healthcare practitioners. The absence of a warningfor a given drug or drug combination in no way should be construed to indicate that the drug or drug combination is safe, effective or appropriate for any given patient. [employer] does not assume any responsibility for any aspect of healthcare administered with the aid of information [employer] provides. The information contained herein is not intended to cover all possible uses, directions, precautions, warnings, drug interactions, allergic reactions, or adverse effects. If you have questions about the drugs you are taking, check with your doctor, nurse or pharmacist. Copyright 3217-6809 [employer]. Version: 19.. Revision Date: 03/04/2024. Education Materials Gastritis or Ulcer, No Antibiotic Treatment Gastritis is irritation and inflammation of the stomach lining. This means the lining is red and swollen. It can cause shallow sores in the stomach lining called erosions. An ulcer is a deeper open sore in the lining of the stomach. It may also occur in the first part of the small intestine (duodenum). The causes and symptoms of gastritis and ulcers are very similar. Causes and risk factors for both problems can include: Long-term use of nonsteroidal anti-inflammatory drugs (NSAIDs), such as aspirin and ibuprofen H. pylori bacteria infection Tobacco use Alcohol use Certain other conditions such as immune disorders, certain medicines (high-dose iron supplements) and street drugs (such as cocaine) Symptoms for both problems can include: Dull or burning pain in the upper part of the belly Loss of appetite Heartburn or upset stomach Frequent burping Bloated feeling Nausea with or without vomiting You likely had an evaluation to help find the exact cause and extent of your problem. This may haveincluded a health history, exam, and certain tests. Results showed that your problem is not due to H. pylori infection. For this reason, you don't needantibiotics as part of your treatment. Whether your problem is gastritis or an ulcer, you will still need to take other medicines, however. You will also need to follow instructions to help reduce stomach irritation so your stomach can heal. Home care Take any medicines you re prescribed exactly as directed. Common medicines used to treat gastritis include: oAntacids. These help neutralize the normal acids in your stomach. oProton pump inhibitors. These block your stomach from making any acid. oH2 blockers. These reduce the amount of acid your stomach makes. oBismuth subsalicylate. This helps protect the lining of your stomach from acid. Don't take any NSAIDs during your treatment. If you take NSAID to help treat other health problems,tell your healthcare provider. He or she may need to adjust your medicine plan or change the dosage. Don t use tobacco. Also don t drink alcohol. These products can increase the amount of acid your stomach makes. This can delay healing. It can also worsen symptoms. Follow-up care Follow up with your healthcare provider, or as advised. In some cases, more testing may be needed. When to seek medical advice Call your healthcare provider right away if any of these occur: Fever of 100.4 F (38 C) or higher, or as directed by your healthcare provider Stomach pain that worsens or moves to the lower right part of belly Extreme fatigue Weakness or dizziness Continued weight loss Frequent vomiting, blood in your vomit, or coffee ground-like substance in your vomit Black, tarry, or bloody stools Call 911 Call 911 if any of these occur: Chest pain appears or worsens, or spreads to the back, neck, shoulder, or arm Unusually fast heart rate Trouble breathing or swallowing Confusion Extreme drowsiness or trouble waking up Fainting Large amounts of blood present in vomit or stool [id number] [employer]. [address] [place] [address], [place] [address]. All rights reserved. This information is not intended as a substitute for professional medical care. Always follow yourhealthcare professional's instructions. Additional Information VACCINATE! IT SAVES LIVES! Members of the community who have not yet received the COVID-19 vaccine and would like to receive it can visit one of [facility] vaccine clinics. There are many vaccine clinic locations within the [facility]. For locations and available times, please visit [email or web address] It is important to note that some COVID mobile vaccine clinics are held outdoors and may be canceled in rainy or stormy conditions. To learn more about pediatric vaccinations (ages 5-11), we invite you to visit the [facility] webpage. [email or web address]/[email or web address] learn more about the COVID-19 vaccine, we invite you to visit the CDC website for a list of frequently asked questions. https://www.cdc.gov/coronavirus/2019-ncov/vaccines/faq.html [facility] Patient Portal Access Instructions: Stay connected with your healthcare team and access your personal medical information anytime with the [facility] Patient Portal. If you would like a full copy of your medical records please contact the [facility] Medical Records Department Sunday through Sunday between 8a.m. and 4:30p.m. Please follow the directions below to access the portal: 1.Access the email account you provided upon registration to the hospital.2.Look for an invitation email from [facility].3.Open the email and access the invitation link: Accept Invitation to [facility]4.Fill in the required hankins to create your account. Sign into www.Lindsey Shell with your username and password that you [...] you will allow to register on the [facility] Patient Portal for access to your information. You can also access the [facility] Patient Portal on the Infopia. Simply click on Health Records under HealthData and then click on the [facility] logo. HOW TO SAFELY DISPOSE OF PRESCRIPTION MEDICATIONS Please use one of the following methods to safely dispose of your unused medications. 1.Use a drug disposal kit: the drug disposal pouch allows you to safely discard your old and unuseddrugs. Ask your nurse to give you one when you are discharged.2.Visit a local take-back location: Many local pharmacies and police departments have programs that collect old and unwanted prescriptiondrugs. Call your local pharmacy or go to http://[employer]/4H3Kz8b to find one close to you.3.Make use of household items: Use cat litter or old coffee grounds to dispose medications if other options arenot available. Mix your drugs with these household products, seal them in an airtight container andthrow it into the garbage. Call [facility]: [phone] to be sure your drugs can be [...] drowsiness, such as benzodiazepines, also known as benzos,including diazepam and alprazolam, muscle relaxants or sleep aids. Never sell or share prescriptionopioids. This is illegal. Store opioids in a secure place and out of reach of others (including children, family, friends and visitors). The last page(s) of this document has been signed and retained as a CHART COPY Signatures Patient Education Materials Gastritis or Ulcer (No Antibiotic Treatment) Medication Leaflets ondansetron (oral), acetaminophen and hydrocodone My discharge plan and instructions have been reviewed and explained to me and I,ANNE CHUNG understand my current condition and have read and understand these discharge instructions. I have received a written copy of the plan/instructions. If I have questions, I am aware that I should contact my doctor. 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 Signature: Date/Time: Relationship to Patient: Witness Name/Signature: Date/Time: [facility]02-20-2025 Note* Exam Date Time Procedure Performing Provider Status 01/15/25 4:[address] Abd/Pelvis w/ IV Contrast Only KURT DEL VALLE MD; Auth (Verified) [id number] ORIGINAL EXAMINATION: CT OF THE ABDOMEN AND [...] Date: 01/15/2025 5:28:09 PM Ordering [facility] [id number] Telephone encounter Note* Telephone Encounter - Evelin Zapata - 01/15/2025 2:15 PM EST Patient is calling to let provider know [facility] ER is backed up and she is headed to [place]. [facility]02-20-2025 Miscellaneous Notes* Telephone Encounter - Evelin Zapata - 01/15/2025 2:15 PM EST Patient is calling to let provider know [facility] ER is backed up and she is headed to [place]. * Telephone Encounter - Aliyah Trimble RN - 01/15/2025 12:45 PM EST Protocol recommends Pt go to the ER now. Pt states she has someone that can drive her and she is going to go to [facility]. Care plan reviewed with patient. Patient voices understanding. Advised patient that if symptoms get worse to call the EMS. Reason for Disposition [1] SEVERE vomiting (e.g., 6 or more times/day) AND [2] present > 8 hours (Exception: Patient sounds well, is drinking liquids, does not sound dehydrated, and vomiting has lasted less than 24 hours.) Answer Assessment - Initial Assessment Questions 1. VOMITING SEVERITY: - MILD: 1 - 2 times/day - MODERATE: 3 - 5 times/day, decreased oral intake without significant weight loss or symptoms of dehydration - SEVERE: 6 or more times/day, vomits everything or nearly everything, with significant weight loss, symptoms of dehydration Reports to vomiting 6 or more times in the last 24 hours. 2. ONSET: The vomiting began last night around midnight. 3. FLUIDS: Fluids vomited up have been water, denies eating any food states she is afraid to. Been able to keep down Gatorade. 4. ABDOMEN PAIN: Pt reports mid upper abdominal pain sharp, constant, 8/10. States this has been going on x2 months, and reports provider knows about it. She states she is supposed to have a scope with Dr Haynes on 01/29/25. 5. DIARRHEA: Pt reports diarrhea, 2-3 when she started drinking water. 6. CONTACTS: Denies anyone else in the family with the same symptoms. 7. CAUSE: Thins stress from divorce is causing vomiting. 8. HYDRATION STATUS: Pt reports signs of dehydration states dry mouth [not only dry lips]. Last time she urinated was an hour ago. 9. OTHER SYMPTOMS: Pt denies fever, headache, vertigo, vomiting blood or coffee grounds, or recent head injury. 10. : No had a hyster. Protocols used: [id number] documented in this encounterMem[facility] Telephone encounter Note * Telephone Encounter - Aliyah Trimble RN - 01/15/2025 12:45 PM EST Protocol recommends Pt go to the ER now. Pt states she has someone that can drive her and she is going to go to [facility]. Care plan reviewed with patient. Patient voices understanding. Advised patient that if symptoms get worse to call the EMS. Reason for Disposition [1] SEVERE vomiting (e.g., 6 or more times/day) AND [2] present > 8 hours (Exception: Patient sounds well, is drinking liquids, does not sound dehydrated, and vomiting has lasted less than 24 hours.) Answer Assessment - Initial Assessment Questions 1. VOMITING SEVERITY: - MILD: 1 - 2 times/day - MODERATE: 3 - 5 times/day, decreased oral intake without significant weight loss or symptoms of dehydration - SEVERE: 6 or more times/day, vomits everything or nearly everything, with significant weight loss, symptoms of dehydration Reports to vomiting 6 or more times in the last 24 hours. 2. ONSET: The vomiting began last night around midnight. 3. FLUIDS: Fluids vomited up have been water, denies eating any food states she is afraid to. Been able to keep down Gatorade. 4. ABDOMEN PAIN: Pt reports mid upper abdominal pain sharp, constant, 8/10. States this has been going on x2 months, and reports provider knows about it. She states she is supposed to have a scope with Dr Haynes on 01/29/25. 5. DIARRHEA: Pt reports diarrhea, 2-3 when she started drinking water. 6. CONTACTS: Denies anyone else in the family with the same symptoms. 7. CAUSE: Thins stress from divorce is causing vomiting. 8. HYDRATION STATUS: Pt reports signs of dehydration states dry mouth [not only dry lips]. Last time she urinated was an hour ago. 9. OTHER SYMPTOMS: Pt denies fever, headache, vertigo, vomiting blood or coffee grounds, or recent head injury. 10. : No had a hyster. Protocols used: [id number] [facility]02-18-2025 NotePatient Outreach (INTMWS) ANNE CHUNG ([id number]) 1985 F Date Time Provider Department 01/13/25 YASSINE LINK INTMWS During your visit today, [...] Date Reviewed: 01/08/2025 Reviewed by: Mallory Marrero APRN.APPLICATIONS SYSTEMS ENGINEER - Fully Assessed Visit Diagnosis:Encounter for screening mammogram for breast cancer [Z12.31] Order(s):ELSIE SCREENING W YUSEF [[id number]] Order #: [id number] FUTURE Prescriptions as of 02/13/2025 - oxycodone [...] medical treatment [Z91.199] 03/12/2023 Encounter Status:Closed by CITLALI BARTON on [facility]/13/25[facility] Telephone encounter Note* Telephone Encounter - Chanda Boyle LPN - 01/09/2025 4:53 PM EST This doesn't say what to do with the letter. I sent it to her via my chart. It is at this desk too. [facility]02-14-2025 Miscellaneous Notes* Telephone Encounter - Chanda Boyle LPN - 01/09/2025 4:53 PM EST This doesn't say what to do with the letter. I sent it to her via my chart. It is at this desk too. * Telephone Encounter - Yassine Link MD - 01/09/2025 4:27 PM EST Letter printed. documented in this encounterMemorial [facility]02-14-2025 Telephone encounter Note * Telephone Encounter - Yassine Link MD - 01/09/2025 4:27 PM EST Letter printed. [facility]02-13-2025 Telephone encounter Note* Telephone Encounter - Virgilio Ignacio - 01/08/2025 11:44 AM EST offered patient EGD in [place] 01-09-2025 patient declined. patient was given the Endo # ([phone]) to call and see who can get her scheduled the soonest. [facility]02-13-2025 Miscellaneous Notes* Telephone Encounter - Virgilio Ignacio - 01/08/2025 11:44 AM EST offered patient EGD in [place] 01-09-2025 patient declined. patient was given the Endo # ([phone]) to call and see who can get her scheduled the soonest. documented in this encounter[address]13-2025 NoteHNO ID: [id number] Author: RHODA PERALTA LPN Service: ? Author [...] patient's last Mammogram screening? Has done at [facility] and is uncertain when last done but validates she is over due. Last Colonoscopy: None [facility] History of Present illness Narrative* Rhoda Peralta LPN - 01/08/2025 11:09 AM EST REVIEW OF SYSTEMS: General: The patient denies [...] difficulty swallowing, notes acid reflux, notes ulcers, deniesvomiting, denies jaundice/hepatitis, denies gallbladder problems, denies black [...] back pain/injury, denies back problems, denies sciatica, deniesknee/foot trouble, denies arthritis, or denies gout. When was patient's last Mammogram screening? Has done at [facility] and is uncertain when last done but validates she is over due. Last Colonoscopy: None Rhoda Peralta LPN * Mallory Marrero APRN.APPLICATIONS SYSTEMS ENGINEER - 01/08/2025 11:00 AM EST HISTORY AND PHYSICAL Anne Chung : 1985 REFERRING PHYSICIAN: German Pires [address] [place] [id number] CHIEF COMPLAINT: Patient presents with: Consult: GERD [...] while from - PCP started on carafate & omeprazole- notes no improvement. Anne notes dysphagia. -points to mid chest and states foods & liquids both feel like they are getting stuck Anne notes a history of ulcers/ peptic ulcer disease. Anne has undergone prior endoscopy. Last EGD & colonoscopy was 10/[address] Escalona at [facility]. Sedation: MAC EGD Impression: - Normal esophagus. [...] lysis of adhesions, Dr. Romelia SEGURA ABD PRTM&OMENTUM DX W/WO SPEC BR/WA SPX 2014 Laparoscopy [...] nourished, well hydrated in no acute distress. Thepatient is oriented to time, place, and person. VITALS: Blood pressure 102/62, pulse 90, temperature 36.3 C (97.3 F), temperature source Temporal, resp. rate 14, height 152.4 cm (5'), weight 66.7 kg (147 lb), last menstrual period 05/16/2015, CoZ048%. Body mass index is 28.71 kg/m . HEENT: Normal cephalic, ataumatic, pupils are equally round, sclera are anicteric, mucous membranesare moist, oropharynx is clear. Neck has no [...] Will plan for upper endoscopy. We discussed therisks and benefits of the planned endoscopy. I have informed the patient that complications can occur including failure to complete the endoscopy and perforation. Anne had the opportunity to ask questions concerning the planned endoscopy. My staff has also explained the procedure to the patient inunderstandable terms and has given the patient printed material concerning the procedure. Anne freely consents to surgery. Switched PPI to protonix 40 mg daily to see if she gets any better relief. I have explained to the patient the difference between IV conscious sedation and MAC anesthesia - and I have offered either, according to the patient's wishes. I have explained that with IV conscioussedation there is no anesthesia provider available and [...] edited and updated as necessary. Mallory Marrero APRN.APPLICATIONS SYSTEMS ENGINEER documented in this encounterMemorial Health [facility]02-13-2025 NoteHNO ID: [id number] Author: MALLORY MARRERO APRN.YORDY Service: ? Author Type: Nurse Practitioner Type: Progress Notes Filed: 01/08/2025 13:34 Note Text: HISTORY AND PHYSICAL Anne Chung : 1985 REFERRING PHYSICIAN: German Warren [facility] [id number] CHIEF COMPLAINT: Patient presents with: Consult: GERD [...] colonoscopy was 10/[address] Escalona at [facility]. Sedation: MAC EGD Impression: - Normal esophagus. [...] Paternal Grandmother 72 Stroke Paternal Grandmother Diabetes (more content not included)...[facility]01-31-2025 Telephone encounter Note* Telephone Encounter - German Pires APRN.CNS - 12/26/2024 4:10 PM EST Increase omeprazole from once daily to twice daily. Continue with sucralfate. Make general surgery appointment for EGD and colonoscopy and schedule follow-up visit with gastroenterology. [facility]01-31-2025 Miscellaneous Notes* Telephone Encounter - German Pires APRN.CNS - 12/26/2024 4:10 PM EST Increase omeprazole from once daily to twice daily. Continue with sucralfate. Make general surgery appointment for EGD and colonoscopy and schedule follow-up visit with gastroenterology. documented in this encounterMemorial Health [facility]01-28-2025 History of Present illness Narrative* German Pires APRN.CNS - 12/23/2024 8:40 AM EST SUBJECTIVE: Hepatitis B Vaccine(1 of 3 - [...] PCP: Yassine Link MD Presents today regarding appetite, rapid weight loss,pain in upper stomach per Mychart scheduling. Today reports she is from her , has a lot of stress, wonders if she might have anulcer. She reports remote history of ulcer. CC EGD 2010 and 2015 did not demonstrate this. 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 Currently on estradiol transdermal patch. She reports she is also getting testosterone patch from her HEALTHCARE RECEPTIONIST. Taking ibuprofen and acetominophen for abdominal pain. Heartburn: yes, intermittent Reflux: no Abdominal pain: epigastric Nausea: constant Vomiting: no Diarrhea: no Constipation: no BRBPR: no Black tarry: no Weight: decreased 6 lbs Diet/oral intake: limiting Prior occurrence: yes, remote EGD and colonoscopy 2016 [facility]. EGD showed normal esophagus erythematous mucosa in the antrum. Normalduodenum. Colonoscopy was normal. Negative pathology for both. States feeling numb. She reports ports seeing counselor at [facility]. Review of Systems Gastrointestinal: Positive for abdominal pain and nausea. Psychiatric/Behavioral: Positive for dysphoric mood. Objective BP 92/59 Pulse 80 Resp 16 Wt 65 kg (143 lb 4.8 oz) LMP 05/16/2015 BMI 27.99 kg/m Physical Exam Vitals and nursing note [...] estrogen and testosterone patches from her E [facility]ALTHCARE RECEPTION[facility], paroxetine was discontinued 4. Epigastric pain - [...] Level: 4 - Moderate documented in this encounterMemorial Health [facility]01-28-2025 NoteHNO ID: [id number] Author: GERMAN PIRES APRN.CNS Service: ? Author Type: Nurse Specialist Type: [...] PCP: Yassine Link MD Presents today regarding appetite, rapid weight loss,pain in upper stomach per Mychart scheduling. Today reports she is from her , has a lot of stress, wonders if she might have an ulcer. She reports remote history of ulcer. CC EGD 2010 and 2015 did not demonstrate this. 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 Currently on estradiol transdermal patch. She reports she is also getting testosterone patch from her [facility]ALTHCARE RECEPTIONIST. Taking ibuprofen and acetominophen for abdominal pain. [...] She reports ports seeing counselor at [facility]. Review of Systems Gastrointestinal: Positive for abdominal [...] needed Zofran. 3. Hot flashes - ICD9: (more content not included)...[facility] 12-15-2024 Evaluation + Plan note Future Scheduled Tests Radiology* MA Mammo Screening Bilateral w/ Yusef 12/15/24 * MA Mammo Screening Bilateral w/ Yusef 12/15/24 * [place] Mammo Screening Bilateral w/ Yusef 12/15/24 [facility] 11-25-2024 NoteHNO ID: [id number] Author: YASSINE LINK MD Service: ? Author Type: Physician Type: Progress Notes Filed: 10/21/2024 08:30 Note Text: This note was created using Witsbitsriter. Subjective Patient presents with: UTI Anne Chung is a 38 year old female, concerned about bladder or kidney infection. She started having dysuria, frequency, urgency 5 days ago with low back pain. She was hydrating well and denied recent febrile illness. She had no fever, chills, or sweats. She denied vaginal discharge. She was scheduled to see her midwife next week (Dr. Cunningham). Review of Systems [...] culture is not consistent, she will see midwife as scheduled. Hydration stressed. We agreed to urinary analgesic. Discussed medication dosage, usage, goals of therapy, and side effects including urine discoloration. - Send urine for culture - UA DIP, URINE (POC) - URINE CULTURE - PHENAZOPYRIDINE 200 MG TABLET 2. Urinary frequency - ICD9: 788.41, ICD10: R35.0 acute - UA DIP, URINE (POC) - URINE CULTURE - PHENAZOPYRIDINE 200 MG TABLET Yassine Link [facility]11-25-2024 History of Present illness Narrative* Yassine Link MD - 10/20/2024 7:55 PM EST This note was created using Witsbitsriter. Subjective Patient presents with: UTI Anne Chung is a 38 year old female, concerned about bladder or kidney infection. She started having dysuria, frequency, urgency 5 days ago with low back pain. She was hydrating well and denied recent febrile illness. She had no fever, chills, or sweats. She denied vaginal discharge. She was scheduled to see her midwife next week (Dr. Cunningham). Review of Systems [...] Size: Large Adult) Pulse 68 Temp 36.4 C (97.6 F) (Temporal) Resp 18 Wt 68.1 kg (150 lb 2.1 oz) LMP 05/16/2015 BMI 29.32 kg/m Physical Exam Constitutional: General: She is not in acute distress. Appearance: She is not diaphoretic. Cardiovascular: Heart sounds: Normal heart sounds. Pulmonary: Breath sounds: Normal breath sounds. Abdominal: Palpations: Abdomen is soft. Tenderness: There is abdominal tenderness in the suprapubic area. There is no right CVA tenderness,left CVA tenderness, guarding or rebound. Musculoskeletal: Lumbar [...] more consistent with dehydration but with her symptoms,we will send for culture and treat if appropriate. If culture is not consistent, she will see midwife as scheduled. Hydration stressed. We agreed to urinary analgesic. Discussed medication dosage, usage, goals of therapy, and side effects including urine discoloration. - Send urine for culture - UA DIP, URINE (POC) - URINE CULTURE - PHENAZOPYRIDINE 200 MG TABLET 2. Urinary frequency - ICD9: 788.41, ICD10: R35.0 acute - UA DIP, URINE (POC) - URINE CULTURE - PHENAZOPYRIDINE 200 MG TABLET Yassine Link MD documented in this encounterMemorial [facility]11-15-2024 Telephone encounter Note * Telephone Encounter - Levy Luu MA - 10/10/2024 3:34 PM EST Notified via [employer]. [facility]11-15-2024 Miscellaneous Notes* Telephone Encounter - Levy Luu MA - 10/10/2024 3:34 PM EST Notified via [place]. * Telephone Encounter - Beatrice Watters APRN.CNP - 10/10/2024 2:34 PM EST Due for routine follow-up Beatrice Watters APRN.CNP * Telephone Encounter - Levy Luu MA - 10/10/2024 10:24 AM EST Prescription Refill Information The patient has been identified by name and date of : Yes Caregiver verified no other encounters exist for this prescription request: Yes Caregiver confirmed with patient/requestor that no other refills are due, in the near future, with this provider at this time: Yes The last office visit in the department: 06/09/2024 Does the patient have a future office visit with this provider/department: No Requested Prescriptions Pending Prescriptions Disp Refills albuterol HFA (VENTOLIN HFA) 90 mcg/actuation inhaler 18 g 2 Sig: INHALE TWO PUFFS BY MOUTH EVERY 6 HOURS NEEDED FOR WHEEZING OR SHORTNESS OF BREATH Levy Luu MA October 10, 2024 10:24 AM documented in this encounterMemorial [facility]11-[facility]-2024 Telephone encounter Note * Telephone Encounter - Beatrice Watters APRN.CNP - 10/10/2024 2:34 PM EST Due for routine follow-up eBatrice Watters APRN.CNP [facility]11-15-2024 Telephone encounter Note* Telephone Encounter - Levy Luu MA - 10/10/2024 10:24 AM EST Prescription Refill Information The patient has been identified by name and date of : Yes Caregiver verified no other encounters exist for this prescription request: Yes Caregiver confirmed with patient/requestor that no other refills are due, in the near future, with this provider at this time: Yes The last office visit in the department: 06/09/2024 Does the patient have a future office visit with this provider/department: No Requested Prescriptions Pending Prescriptions Disp Refills albuterol HFA (VENTOLIN HFA) 90 mcg/actuation inhaler 18 g 2 Sig: INHALE TWO PUFFS BY MOUTH EVERY 6 HOURS NEEDED FOR WHEEZING OR SHORTNESS OF BREATH Levy Luu MA October 10, 2024 10:24 AM [facility]08-29-2024 Telephone encounter Note* Telephone Encounter - Risa Pisano LPN - 07/24/2024 9:25 AM EDT Prescription Refill Information The patient has been identified by name and date of : Yes Caregiver verified no other encounters exist for this prescription request: Yes Caregiver confirmed with patient/requestor that no other refills are due, in the near future, with this provider at this time: Yes The last office visit in the department: 06/09/24 Does the patient have a future office visit with this provider/department: Yes Requested Prescriptions Pending Prescriptions Disp Refills albuterol HFA (VENTOLIN HFA) 90 mcg/actuation inhaler 18 g 2 Sig: INHALE TWO PUFFS BY MOUTH EVERY 6 HOURS NEEDED FOR WHEEZING OR SHORTNESS OF BREATH Risa Pisano LPN July 24, 2024 9:25 AM [facility]08-29-2024 Miscellaneous Notes* Telephone Encounter - Risa Pisano LPN - 07/24/2024 9:25 AM EDT Prescription Refill Information The patient has been identified by name and date of : Yes Caregiver verified no other encounters exist for this prescription request: Yes Caregiver confirmed with patient/requestor that no other refills are due, in the near future, with this provider at this time: Yes The last office visit in the department: 06/09/24 Does the patient have a future office visit with this provider/department: Yes Requested Prescriptions Pending Prescriptions Disp Refills albuterol HFA (VENTOLIN HFA) 90 mcg/actuation inhaler 18 g 2 Sig: INHALE TWO PUFFS BY MOUTH EVERY 6 HOURS NEEDED FOR WHEEZING OR SHORTNESS OF BREATH Risa Pisano LPN July 24, 2024 9:25 AM documented in this encounterMemorial Health [facility]07-[facility]-2024 Instructions* Patient Instructions* German Pires APRN.CNS - 06/09/2024 11:41 AM EDT Okay to continue with ibuprofen as needed for neck and wrist pain. Ice the affected areas 15 to 20 minutes several times a day to help with pain. Please do make an appointment with your HEALTHCARE RECEPTIONIST for hot flashes. Try paroxetine at bedtime to see ifthis helps with hot flashes. Take omeprazole and ondansetron for nausea Take medications with food. documented in this encounterMemorial Health [facility]07-[facility]-2024 History of Present illness Narrative* German Pires APRN.CNS - 06/09/2024 11:20 AM EDT SUBJECTIVE: Pneumococcal Vaccine(1 of 2 - PCV) Never done Hepatitis B Vaccine(1 of 3 - 19+ 3-dose series) Never done DTaP,Tdap,Td Vaccine(2 - Td or Tdap) due on 09/24/2022 Covid-19 Vaccine(2022- season) Never done HPI Anne Chung is a 38 year old female. PMH significant for ACTIVE PROBLEM LIST Asthma Esophageal Reflux Tobacco Use Disorder Anxiety With Depression Overactive Bladder Pain of Left Shoulder Region Non-Adherence to Medical Treatment PCP: Yassine Link MD Presents today regarding emergency department follow up visit. She was seen by Dr. Henry March 13, 2024. She noted area was completely healed. Noted multiple ER visits for the complaint of requesting pain medication. She was seen by Yassine Link MD for bursitis of right hip. Treated with prednisone April 24, 2024. Follow-up visit for continued symptoms April 29, 2024 treated with methylprednisolone. She was referred to orthopedics. She presented to [facility] on June 08, 2024 for complaint of a fall with hip pain and rectal pain. She reported a fall in the shower about an hour prior to arrival and previous shower fall. She states she has hot flashes that make her lightheaded. She reported having a fall in the shower and falling forward. Reported trying to brace herself with right hand but hit her forehead against the tile. She reported forehead pain headache and right wrist pain. She reported taking ibuprofen 800 mg without relief. Stated no other injury. Physical exam showed mild hematoma and tendernessto the midline forehead. Diffuse tenderness palpation distal radius and ulna. Impression was right wrist sprain . She was noted to have acute right flank pain, traumatic hematoma forehead, fall in the shower. CT head without contrast was negative. X-ray of wrist showed mild soft tissue swelling. No fractureor subluxation is noted. Normal alignment. Today reports hot flash in shower was cause of fall. Sees Dr Cunningham [facility]. Notes no change in medication dose. Hot flashes worse the last couple of weeks. Has AC at home. States no LOC with the fall. Headache is less on forehead. Hematoma is decreased on forehead. Now with posterior neck pain and left side neck stiffness. Decreased range of motion is present, increased pain with turning to the left side. Extension and flexion without increased pain. No report of numbness tingling or weakness in upper extremities. She notes pain primarily in the right wrist. Brace is helping somewhat. Wearing it 18/06. Has been taking ibuprofen 800 mg as needed. Has been helpful. Has been icing which is also been helpful. Review of Systems Gastrointestinal: Positive for nausea. Musculoskeletal: Positive for arthralgias, myalgias, neck pain and neck stiffness. Neurological: Positive for headaches. Objective BP 108/70 (BP Site: Left Arm) Pulse 76 Wt 73 kg (160 lb 14.4 oz) LMP 05/16/2015 SpO2 99% BMI 31.42 kg/m Physical Exam Vitals and nursing note reviewed. Constitutional: Appearance: Normal appearance. HENT: Head: Normocephalic and atraumatic. Eyes: Conjunctiva/sclera: Conjunctivae normal. Cardiovascular: Rate and Rhythm: Normal rate. Pulses: Dorsalis pedis pulses are 2+ on the left side. Pulmonary: Effort: Pulmonary effort is normal. Musculoskeletal: Right wrist: Swelling, tenderness and bony tenderness present. No crepitus. Decreased range of motion. Normal pulse. Cervical back: Pain with movement present. Decreased range of motion. Left ankle: No swelling, deformity, ecchymosis or lacerations. Tenderness present. Normal range of motion. Normal pulse. Feet: Left foot: Skin integrity: Skin integrity normal. Skin: General: Skin is warm and dry. Comments: hematoma~1 on mid forehead Neurological: General: No focal deficit present. Mental [...] DOSE IN 5-15 MINUTES IF NOT IMPROVING estradiol (ESTRACE) 2 mg tablet once daily. conj estrogens-bazedoxifene 0.45-20 mg once daily. ondansetron orally disintegrating (ZOFRAN ODT) [...] or fever (specify temp.) (take with food). PAST MEDICAL HISTORY Diagnosis Date Abnormal mammogram [...] use: Not Currently Types: Marijuana ASSESSMENT/PLAN: 1. Fall, subsequent encounter - ICD9: V58.89, E888.9, ICD10: W19.XXXD (primary diagnosis) - CONSULT TO ORTHOPAEDICS 2. Sprain of right wrist, subsequent encounter - ICD9: V58.89, 842.00, ICD10: S63.501D - CONSULT TO ORTHOPAEDICS - CONSULT TO PHYSICAL THERAPY - IBUPROFEN 800 MG TABLET 3. Cervicalgia - ICD9: 723.1, ICD10: M54.2 - CONSULT TO PHYSICAL THERAPY - IBUPROFEN 800 MG TABLET 4. Hot flashes - ICD9: 782.62, ICD10: R23.2 - PAROXETINE 10 MG TABLET 5. Nausea and vomiting, unspecified vomiting type - ICD9: 787.01, ICD10: R11.2 - ONDANSETRON 4 MG DISINTEGRATING TABLET - OMEPRAZOLE 20 MG CAPSULE,DELAYED RELEASE 6. Hematoma - ICD9: 924.9, ICD10: T14.8XXA - IBUPROFEN 800 MG TABLET Recommend ibuprofen [id number] for now until feeling improved. States does not need refill. Ice 15 to 20 minutes several times per day will help with pain. Gentle range of motion. Continue withbrace at the right wrist. Make an appointment with orthopedics and physical therapy. Endorse an appointment with [facility] RECEPTION[facility] to discuss estrogen level. Paroxetine at bedtime for hot flashesto see if this helps in addition. Consider lab work if not improving with hot flashes, CBC CMP and TSH. German Pires APRN.CNS Medical Decision Making: Problems: Low: Acute, uncomplicated illness or injury Moderate: 1+ chronic illnesses with change Data: Unique source(s) for external note(s) reviewed: 1 Unique test result(s) reviewed: 2 Risk: Moderate: Drug management Medical Decision Making Level: 4 - Moderate documented [facility] encounterMem[facility] Telephone encounter Note * Telephone Encounter - Levy Luu MA - 05/16/2024 2:32 PM EDT Prescription Refill Information The patient has been identified by name and date of : Yes Caregiver verified no other encounters exist for this prescription request: Yes Caregiver confirmed with patient/requestor that no other refills are due, in the near future, with this provider at this time: Yes The last office visit in the department: 04/29/2024 Does the patient have a future office visit with this provider/department: No Requested Prescriptions Pending Prescriptions Disp Refills albuterol HFA (VENTOLIN HFA) 90 mcg/actuation inhaler 18 g 0 Sig: INHALE TWO PUFFS BY MOUTH EVERY 6 HOURS NEEDED FOR WHEEZING OR SHORTNESS OF BREATH Levy Luu MA May 16, 2024 2:32 PM [facility]06-21-[facility] Miscellaneous Notes* Telephone Encounter - Levy Luu MA - 05/16/2024 2:32 PM EDT Prescription Refill Information The patient has been identified by name and date of : Yes Caregiver verified no other encounters exist for this prescription request: Yes Caregiver confirmed with patient/requestor that no other refills are due, in the near future, with this provider at this time: Yes The last office visit in the department: 04/29/2024 Does the patient have a future office visit with this provider/department: No Requested Prescriptions Pending Prescriptions Disp Refills albuterol HFA (VENTOLIN HFA) 90 mcg/actuation inhaler 18 g 0 Sig: INHALE TWO PUFFS BY MOUTH EVERY 6 HOURS NEEDED FOR WHEEZING OR SHORTNESS OF BREATH Levy Luu MA May 16, 2024 2:32 PM documented in this encounterMem[facility] History of Present illness Narrative* Yassine Link MD - 04/29/2024 11:56 AM EDT This note was created using NoteWriter. Subjective DISTANCE HEALTH VISIT Patient presents with: Right Hip Pain Anne Chung's identity was confirmed. The limitations of telemedicine were reviewed, and verbal consent was obtained for this encounter. This encounter is not related to previous similar encounterwithin the past 7 days. No face to face visit is planned in the next day in connection to this encounter. This telemedicine encounter was accomplished via Zoom. She developed right posterior hip pain, severe, 1 week ago with no injury, aggravated by prolonged standing, when getting up, and walking. Pain now radiated down the right posterior leg. I treated her for bursitis with toradol and prednisone. Prednisone helped but did not last long enough. She wentthe the ER last week also and given [place] which did not help. Xrays of her pelvis and hips in the ER were unremarkable. Review of Systems Constitutional: Negative. ACTIVE PROBLEM LIST Asthma Esophageal Reflux Tobacco Use Disorder Anxiety With Depression Overactive Bladder Pain of Left Shoulder Region Non-Adherence to Medical Treatment Current Outpatient Medications Medication Sig methylPREDNISolone (MEDROL, ANABELA,) 4 mg Dose-Pack Follow dosing instructions, take with food. predniSONE (DELTASONE) 20 mg tablet Take 2 tablets by mouth once daily for 2 days, THEN 1 tablet once daily for 3 days. albuterol HFA (VENTOLIN HFA) 90 mcg/actuation inhaler INHALE TWO PUFFS BY MOUTH EVERY 6 HOURS NEEDED FOR WHEEZING OR SHORTNESS OF BREATH LORazepam (ATIVAN) 0.5 mg Take 1 tablet [...] 6 hours as needed for nausea/vomiting. estradiol (ESTRACE) 2 mg tablet once daily. conj estrogens-bazedoxifene 0.45-20 mg once daily. No current facility-administered medications for this visit. Objective LMP 05/16/2015 Physical Exam Constitutional: General: She is not in acute distress. Neurological: Mental Status: She is alert. Exam not done, as patient was outside her workplace. ER xray report reviewed on CE. Assessment and Plan 1. Bursitis of other bursa of right hip - ICD9: 726.5, ICD10: M70.71 - I did not recommend a different opioid. I recommended a steroid pack for inflammation and consultation for possible bursa injection. - METHYLPREDNISOLONE 4 MG TABLETS IN A DOSE PACK - CONSULT TO ORTHOPAEDICS Yassine Link MD documented in this encounterMem[facility] Nurse Note* Emely Hi MA - 04/24/2024 3:46 PM EDT Patient given Kenalog 30 mg IM in the right upper quadrant gluteus. Patient tolerated injection well. Lot#: [id number] Exp date: 01/23/2025 Emely Hi MA [facility] Nurse Note* Emely Hi MA - 04/24/2024 3:46 PM EDT Patient given Kenalog 30 mg IM in the right upper quadrant gluteus. Patient tolerated injection well. Lot#: [id number] Exp date: 01/23/2025 Emely Hi MA documented in this encounterMemorial [facility]-30-[facility]24 Instructions* Patient Instructions* Yassine Link MD - 04/24/2024 3:39 PM EDT Warm compress 20 minutes 3 times per day. Avoid sitting on hard surface. documented in this encounterMemorial [facility]05-30-[facility] History of Present illness Narrative* Yassine Link MD - 04/24/2024 3:29 PM EDT This note was created using Witsbitsriter. Subjective Patient presents with: Pain: Right hip pain, for the last 4 days, no imaging Anne Chung is a 38 year old female. She developed severe pain of the right posterior hip radiating up the right lower back with stiffness. Pain was worse with getting up and walking. She denied injury. Ibuprofen was taken with little relief. Review of Systems Constitutional: Negative for fever. Gastrointestinal: Negative. Genitourinary: Negative. ACTIVE PROBLEM LIST Asthma Esophageal Reflux Tobacco [...] NEEDED FOR WHEEZING OR SHORTNESS OF BREATH LORazepam (ATIVAN) 0.5 mg Take 1 tablet [...] 6 hours as needed for nausea/vomiting. estradiol (ESTRACE) 2 mg tablet once daily. conj estrogens-bazedoxifene 0.45-20 mg once daily. No current facility-administered medications for this visit. Objective BP 110/84 (BP Site: Right Arm) Pulse 72 Wt 74.6 kg (164 lb 6.4 oz) LMP 05/16/2015 SpO2 99% BMI 32.11 kg/m Physical Exam Constitutional: General: She is not in acute distress. Musculoskeletal: Lumbar back: No spasms or tenderness. Negative right straight leg raise test and negative left straight leg raise test. Right hip: Tenderness present. No deformity, bony tenderness or crepitus. Normal range of motion. Normal strength. Left hip: Normal. Comments: Gluteal soft tissue tenderness. Neurological: Mental Status: She is alert. Assessment and Plan 1. Bursitis of other bursa of right hip - ICD9: 726.5, ICD10: M70.71 Ischiogluteal bursitis. - KETOROLAC 30 MG/ML (1 ML) INJECTION SOLUTION - PREDNISONE 20 MG TABLET Yassine Link MD documented in this encounterMem[facility]05-[facility] Telephone encounter Note * Telephone Encounter - Leticia Persaud LPN - 04/15/2024 9:26 AM EDT Patient has been identified by name and date of : Yes Patient phones for refill(s): Requested Prescriptions Pending Prescriptions Disp Refills albuterol HFA (VENTOLIN HFA) 90 mcg/actuation inhaler 18 g 0 Sig: INHALE TWO PUFFS BY MOUTH EVERY 6 HOURS NEEDED FOR WHEEZING OR SHORTNESS OF BREATH Date of last office visit in primary care: 02/25/2024 Date of next office visit in primary care: Visit date not found Please advise. Thank you. Leticia Persaud LPN. [facility] Miscellaneous Notes* Telephone Encounter - Leticia Persaud LPN - 04/15/2024 9:26 AM EDT Patient has been identified by name and date of : Yes Patient phones for refill(s): Requested Prescriptions Pending Prescriptions Disp Refills albuterol HFA (VENTOLIN HFA) 90 mcg/actuation inhaler 18 g 0 Sig: INHALE TWO PUFFS BY MOUTH EVERY 6 HOURS NEEDED FOR WHEEZING OR SHORTNESS OF BREATH Date of last office visit in primary care: 02/25/2024 Date of next office visit in primary care: Visit date not found Please advise. Thank you. Leticia Persaud LPN. documented in this encounterMem[facility]05-01-2024 Telephone encounter Note * Telephone Encounter - Levy Luu MA - 03/26/2024 9:46 AM EDT Notified via [employer]. [facility]05-01-[facility]24 Miscellaneous Notes* Telephone Encounter - Levy Luu MA - 03/26/2024 9:46 AM EDT Notified via [employer]. * Telephone Encounter - Beatrice Watters APRN.CNP - 03/25/2024 3:07 PM EDT Patient is overdue for a routine office visit, only acute visits for the past year Beatrice Watters APRN.CNP * Telephone Encounter - Levy Luu MA - 03/25/2024 9:18 AM EDT Requested Prescriptions Pending Prescriptions Disp Refills EPINEPHrine (EPIPEN) 0.3 mg/0.3 mL auto-injector 2 Each 0 Sig: GIVE ONE DOSE INTO LATERAL THIGH FOR ALLERGIC REACTION. REPEAT DOSE IN 5-15 MINUTES IF NOT IMPROVING albuterol HFA (VENTOLIN HFA) 90 mcg/actuation inhaler 18 g 5 Sig: INHALE TWO PUFFS BY MOUTH EVERY 6 HOURS NEEDED FOR WHEEZING OR SHORTNESS OF BREATH Date of last office visit in primary care: 02/25/2024 Date of next office visit in primary care: Visit date not found Please advise. Thank you. Levy Luu MA. documented in this encounterMem[facility]04-30-2024 Telephone encounter Note * Telephone Encounter - Beatrice Watters APRN.CNP - 03/25/2024 3:07 PM EDT Patient is overdue for a routine office visit, only acute visits for the past year Beatrice M Duong, SLOTS MANAGER.APPLICATIONS SYSTEMS ENGINEER [facility]04-30-[facility] Telephone encounter Note* Telephone Encounter - Levy Luu MA - 03/25/2024 9:18 AM EDT Requested Prescriptions Pending Prescriptions Disp Refills EPINEPHrine (EPIPEN) 0.3 mg/0.3 mL auto-injector 2 Each 0 Sig: GIVE ONE DOSE INTO LATERAL THIGH FOR ALLERGIC REACTION. REPEAT DOSE IN 5-15 MINUTES IF NOT IMPROVING albuterol HFA (VENTOLIN HFA) 90 mcg/actuation inhaler 18 g 5 Sig: INHALE TWO PUFFS BY MOUTH EVERY 6 HOURS NEEDED FOR WHEEZING OR SHORTNESS OF BREATH Date of last office visit in primary care: 02/25/2024 Date of next office visit in primary care: Visit date not found Please advise. Thank you. Levy Luu MA. [facility]04-[facility] Telephone encounter Note* Telephone Encounter - Levy Luu MA - 03/25/2024 9:13 AM EDT Requested Prescriptions Pending Prescriptions Disp Refills LORazepam (ATIVAN) 0.5 mg 30 tablet 0 Sig: Take 1 tablet by mouth at bedtime as needed (anxiety) for up to 60 days. Date of last office visit in primary care: 02/25/2024 Date of next office visit in primary care: 03/23/2024 Please advise. Thank you. Levy Luu MA. [facility] Miscellaneous Notes* Telephone Encounter - Levy Luu MA - 03/25/2024 9:13 AM EDT Requested Prescriptions Pending Prescriptions Disp Refills LORazepam (ATIVAN) 0.5 mg 30 tablet 0 Sig: Take 1 tablet by mouth at bedtime as needed (anxiety) for up to 60 days. Date of last office visit in primary care: 02/25/2024 Date of next office visit in primary care: 03/23/2024 Please advise. Thank you. Levy Luu MA. documented in this encounterMemorial [facility]04-[facility] History of Present illness Narrative* Gertrude Henry MD - 03/13/2024 3:08 PM EDT Anne Chung 1985 REFERRING PHYSICIAN: No ref. provider found CHIEF COMPLAINT: Follow Up HPI: The patient is a 38 year old female s/p pilonidal cyst excision done on 12/20/2023. She complaint of pain/itching in the area. Denies drainage. States that it hasn't healed Has been to ED multiple times for pain medications for the above, asking for pain medications. PAST MEDICAL HISTORY Diagnosis Date Abnormal mammogram [...] Right 05/10/2023 Current Outpatient Medications Medication Sig mupirocin (BACTROBAN) 2 % ointment Apply 1 application to affected area two times a day. until healed LORazepam (ATIVAN) 0.5 mg Take 1 tablet by mouth at bedtime as needed (anxiety) for up to 60 days. lidocaine HCl 4 % crea Apply to affected area. ondansetron orally disintegrating (ZOFRAN ODT) 4 mg disintegrating tablet Take 1 tablet by mouth every 6 hours as needed for nausea/vomiting. estradiol (ESTRACE) 2 mg tablet once daily. albuterol HFA (VENTOLIN HFA) 90 mcg/actuation inhaler INHALE TWO PUFFS BY MOUTH EVERY 6 HOURS NEEDED FOR WHEEZING OR SHORTNESS OF BREATH conj estrogens-bazedoxifene 0.45-20 mg EPINEPHrine (EPIPEN) 0.3 mg/0.3 mL auto-injector GIVE ONE DOSE INTO LATERAL THIGH FOR ALLERGIC REACTION. REPEAT DOSE IN 5-15 MINUTES IF NOT IMPROVING No current facility-administered medications for this visit. ALLERGIES: Bees, Morphine, Penicillins, Valium [Diazepam], and Tessalon [Benzonatate] REVIEW OF SYSTEMS: Denies fevers PHYSICAL EXAMINATION: General: The patient is 38 year old female, well nourished, well hydrated in no acute distress. Thepatient is oriented to time, place, and person. VITALS: Blood pressure 116/84, pulse 91, temperature 36.6 C (97.9 F), last menstrual period 05/16/2015, SpO2 98%. There is no height or weight on file to calculate BMI. Wound has completely epithelialized. No drainage noted. No fluctuance noted No erythema noted Patient complaint of pain with light touch to the area. Pain out of proportion to physical examination. Assessment IMPRESSION: s/p pilonidal cyst excision PLAN: I have discussed the above with the patient. The area is completely healed. Patient with complaint of pain in the area, however, there are no signs of infection, etc. This is the same presentation prior to surgery. I have told patient that I have no further surgical options to offer her. I have recommended that she stop cigarettes use. Patient acknowledges the above. I have answered all questions to the patient s satisfaction and the patient has no furtherquestions. I have confirmed and edited as necessary, the PFSH and ROS obtained by others. . Diagnoses: (Z98.890) Status post incision and drainage (primary encounter diagnosis) I spent a total of 11 minutes on the date of the service which included preparing to see the patient with review of any pertinent laboratory studies/radiological imaging/medical records from other medical facilities such as [facility], [id number] patient care, obtaining oral medical history from the patient in this encounter, performing a medically appropriate examination, counseling and educating the patient/family/caregiver, and completing appropriate medical documentation. Gertrude Henry MD documented in this encounterMemorial [facility]04-[facility]-2024 Miscellaneous Notes* Telephone Encounter - Birgit Pereira MA - 03/13/2024 9:11 AM EDT Images from the original note were not included. Gertrude Henry MD Have patient make an appointment to see me 3pm. Left detailed message to inform of appt at [facility] [facility] at 3pm work in. Birgit Pereira MA * Telephone Encounter - Vaishali Amin RN - 03/12/2024 12:00 PM EDT Patient calls office to schedule appointment with Dr. Henry for follow up of pilonidal cyst. Patientstates cyst opened back up about 3 weeks ago. Saw PCP on 02/24 and was instructed to pack wound and follow up with Dr. Henry. Patient missed her appointment with Dr. Henry on 03/07. No openings with Dr. Henry until 03/31. Patient denies fever but reports drainage and pain. Cyst is draining. She has not been packing wound because it is too painful and she states she cannot sit down with packing place. documented in this encounterMemorial [facility]04-[facility] History of Present illness Narrative* Pires GermanEDU evangelista.CORE MOUNTER - 02/25/2024 10:42 AM EDT SUBJECTIVE: Pneumococcal Vaccine(1 of 2 - PCV) Never done Hepatitis B Vaccine(1 of 3 - 19+ 3-dose series) Never done DTaP,Tdap,Td Vaccine(2 - Td or Tdap) due on 09/24/2022 Covid-19 Vaccine(2022- season) Never done HPI Anne Chung is a 38 year old female. PMH significant for ACTIVE PROBLEM LIST Asthma Esophageal Reflux Tobacco Use Disorder Anxiety With Depression Overactive Bladder Pain of Left Shoulder Region Non-Adherence to Medical Treatment PCP: Yassine Link MD Presents today for follow-up regarding pilonidal cyst. She was seen at [facility] emergency department on February 11, 2024 for pain and opening of pilonidal cyst site. Lab work and CT were discussed but not completed. She was treated with clindamycin and hydrocodone/acetaminophen. Today notes that she is somewhat improved. She notes that the lesion has not completely healed thenrecently broke open for unknown reason, no injury. Currently with scant amount of drainage. She hasbeen applying a dressing. Afebrile. She was previously seen by Dr. Henry general surgeon January 07, 2024 for follow-up of incision anddrainage of pilonidal cyst/abscess completed on December 20, 2023. Review of Systems Constitutional: Negative. Skin: Positive for wound. Objective BP 111/75 Pulse 70 Resp 16 Wt 76.2 kg (168 lb) LMP 05/16/2015 BMI 32.81 kg/m Physical Exam Vitals and nursing note [...] General: Skin is warm and dry. Comments: Slitlike wound approximately 1 inch long x 1/4 inch across and 1/4 inch deep. pink wound bed, no surrounding erythema or warmth, no bleeding no surrounding induration Neurological: General: No focal deficit present. Mental [...] needed (anxiety) for up to 60 days. lidocaine HCl 4 % crea Apply to affected area. ondansetron orally disintegrating (ZOFRAN ODT) 4 mg disintegrating tablet Take 1 tablet by mouth every 6 hours as needed for nausea/vomiting. mupirocin (BACTROBAN) 2 % ointment Apply 1 application to affected area two times a day. until healed estradiol (ESTRACE) 2 mg tablet once daily. albuterol HFA (VENTOLIN HFA) 90 mcg/actuation inhaler INHALE TWO PUFFS BY MOUTH EVERY 6 HOURS NEEDED FOR WHEEZING OR SHORTNESS OF BREATH conj estrogens-bazedoxifene 0.45-20 mg EPINEPHrine (EPIPEN) 0.3 mg/0.3 mL auto-injector GIVE ONE DOSE INTO LATERAL THIGH FOR ALLERGIC REACTION. REPEAT DOSE IN 5-15 MINUTES IF NOT IMPROVING PAST MEDICAL HISTORY Diagnosis Date Abnormal mammogram [...] use: Not Currently Types: Marijuana ASSESSMENT/PLAN: 1. Pilonidal cyst with abscess - ICD9: 685.0, ICD10: L05.01 (primary diagnosis) Recommend she apply antibacterial ointment, packs to the area as previously advised. She has upcoming appointment in general surgery, will check to see if she could be seen sooner. Continue with meloxicam. Hydrocodone as needed for breakthrough pain. She notes dressings as previously recommended tocomplete healed wound in about 1 weeks the last time so recommend she resume that now. - HYDROCODONE 5 MG-ACETAMINOPHEN 325 MG TABLET - MELOXICAM 15 MG TABLET She reports that she has been removing packing at times due to pain. Discussed secondary wound healing, will need to leave dressing in place. Recommend moistening dry sterile dressing with normal saline for packing and also for removal as needed. This may give her more comfort. German Pires APRN.SHANNEN Medical Decision Making: Problems: Low: Acute, uncomplicated illness or injury Risk: Moderate: Drug management Medical Decision Making Level: 3 - Low [facility] Discharge instructions Additional Instructions Follow-up with Dr. Henry within the next 3 to 5 days for repeat evaluation. Return if fever, chills, sweats, increasing pain, swelling, or condition worsening way.[facility] Work Phone: [phone]) 242-486502-23-2024 Miscellaneous Notes* Telephone Encounter - Emely Hi MA - 01/18/2024 6:30 PM EST Patient active MyChart. Patient notified via [employer] message. Emely Hi MA * Telephone Encounter - Yassine Link MD - 01/18/2024 5:18 PM EST Requested Prescriptions Refused Prescriptions Disp Refills HYDROcodone-acetaminophen (NORCO) 5-325 mg per tablet 6 tablet 0 Sig: Take 1 tablet by mouth every 12 hours as needed for pain for up to 3 days. Refused By: YASSINE LINK Reason for Refusal: A Refill not appropriate PDMP website checked and validated. Multiple prescriptions, multiple providers. 01/18/2024 by Gómez Link MD Take NSAID. * Telephone Encounter - Leticia Persaud LPN - 01/17/2024 9:13 AM EST Patient has been identified by name and date of : Yes Patient phones for refill(s): Requested Prescriptions Pending Prescriptions Disp Refills HYDROcodone-acetaminophen (NORCO) 5-325 mg per tablet 6 tablet 0 Sig: Take 1 tablet by mouth every 12 hours as needed for pain for up to 3 days. Date of last office visit in primary care: 01/10/2024 Date of next office visit in primary care: No future appt scheduled w/PCP Please advise. Thank you. Leticia Persaud LPN. documented in this encounterMem[facility] Miscellaneous Notes* Telephone Encounter - Leticia Persaud LPN - 01/17/2024 8:41 AM EST Patient has been identified by name and date of : Yes Patient phones for refill(s): Requested Prescriptions Pending Prescriptions Disp Refills LORazepam (ATIVAN) 0.5 mg 30 tablet 0 Sig: Take 1 tablet by mouth at bedtime as needed (anxiety) for up to 60 days. Date of last office visit in primary care: 01/10/2024 Date of next office visit in primary care: Visit date not found Please advise. Thank you. Leticia Persaud LPN. documented in this encounterMem[facility] History of Present illness Narrative* German Pires APRN.CORE MOUNTER - 01/10/2024 1:00 PM EST SUBJECTIVE: Hepatitis B Vaccine(1 of 3 - [...] to Medical Treatment PCP: Yassine Link MD HPI excerpted from previous visit: Presents today emergency department follow-up visit. She was seen at [facility] November 19, 2023 with abscess of left buttocks. She reported symptoms started 1 week prior to arrival.She reported trying to express out pus without [...] She returned to emergency department on 11/21 [facility] for incisional pain. Provided with oxycodone and acetaminophen. Subsequently seen by general surgeon on 11/22. I&D not required. To follow up as needed. Presents today for pain at abscess site. Ibuprofen 800 mg as needed helping somewhat. Other pain medications helping somewhat.Notes pain continues unchanged from initial point.Notes was using a gauzedressing but stopped using one due to sticking too much to wound. Wound healing: yes seems smaller Taking antibiotic: yes Drainage:clear yellow drainage Fever:no She was seen by Dr. Henry general surgeon January 07, 2024 for follow-up of incision and drainage of pilonidal cyst/abscess completed on December 20, 2023. States she thought she tore something per Dr. Henry's note when bending over prior to her visit. She reports 4 ED visits for the above complaint. She was provided with an additional week off of work per her request but advised that she did notrequire any further additional time off from work following this and continue changing dressings aspreviously advised.She was provided with 3 days of oxycodone acetaminophen from [facility] ER January 05, 2024. Presents today regarding discomfort at the surgical site. Thinks she may have scratched it. She notes there is a lot of pain with packing, has been packing with dry sterile dressings. She notes sometimes removes the dressing because it is too painful. She notes ibuprofen 800 mg 4 times a day helps somewhat. She notes that pain medicine obtained through the emergency department helped somewhat. Review of Systems Constitutional: Negative. Skin: Positive for wound. Objective BP 116/82 Pulse 90 Resp 16 Wt 71.2 kg (157 lb) LMP 05/16/2015 SpO2 100% BMI 30.66 kg/m Physical Exam Vitals and nursing note [...] Skin is warm and dry. Comments: wound approximately 3 inches in diameter, wound is deep. pink wound bed, no surrounding erythema or warmth, no bleeding no surrounding induration Neurological: Mental Status: She is alert. ALLERGIES Allergen Reactions Bees Anaphylaxis Pt had swelling, was given epipen at ER. Morphine Rash Left arm turned red when given IV morphine Penicillins Other: See Comments Patient refuses due to family allergy to PCN. Valium [Diazepam] Hives Hives on chest only. Tessalon [Benzonata* Rash Medication lidocaine HCl 4 % crea Apply to affected area. ondansetron orally disintegrating (ZOFRAN ODT) 4 mg [...] estradiol (ESTRACE) 2 mg tablet once daily. albuterol HFA (VENTOLIN HFA) 90 mcg/actuation inhaler INHALE TWO PUFFS BY MOUTH EVERY 6 HOURS NEEDED FOR WHEEZING OR SHORTNESS OF BREATH conj estrogens-bazedoxifene 0.45-20 mg EPINEPHrine (EPIPEN) 0.3 mg/0.3 mL auto-injector GIVE ONE DOSE INTO LATERAL THIGH FOR ALLERGIC REACTION. REPEAT DOSE IN 5-15 MINUTES IF NOT IMPROVING LORazepam (ATIVAN) 0.5 mg Take 1 tablet by mouth at bedtime as needed (anxiety) for up to 60 days. PAST MEDICAL HISTORY Diagnosis Date Abnormal mammogram [...] use: Not Currently Types: Marijuana ASSESSMENT/PLAN: 1. Pilonidal cyst with abscess - ICD9: 685.0, ICD10: L05.01 (primary diagnosis) - HYDROCODONE 5 MG-ACETAMINOPHEN 325 MG TABLET - MELOXICAM 15 MG TABLET 2. Abscess, gluteal, left - ICD9: 682.5, ICD10: L02.31 - HYDROCODONE 5 MG-ACETAMINOPHEN 325 MG TABLET - MELOXICAM 15 MG TABLET She reports that she has been removing packing at times due to pain. Discussed secondary wound healing, will need to leave dressing in place. Recommend moistening dry sterile dressing with normal saline for packing and also for removal as needed. This may give her more comfort. Switch to meloxicam from ibuprofen for longer duration pain coverage. [place] for breakthrough pain. German Pires APRN.CNS Medical Decision Making: Problems: Moderate: 1+ chronic illnesses with change Risk: Moderate: Drug management Medical Decision Making Level: 4 - Moderate documented in this encounterMem[facility] Instructions* Patient Instructions* German Pires APRN.CNS - 01/10/2024 1:00 PM EST If any concerning findings at the surgical site please follow-up with the surgeon. ER for any severe or concerning symptoms. documented in this encounterMem[facility] History of Present illness Narrative* Gertrude Henry MD - 01/07/2024 9:17 AM EST Anne Chung 1985 REFERRING PHYSICIAN: No ref. provider found CHIEF COMPLAINT: Follow Up (12/20/23 Pilonidal cyst) HPI: The patient is a 38 year old female presents for follow up of I&D of pilonidal cyst abscess done on 12/20/2023 Still complaint of significant pain, she thought she tore something when bending over the other day. States that she cannot return to work due to pain. Denies fevers Her friend is changing wound dressings twice a day. She has been to local ED at least four times since procedure due to the above. PAST MEDICAL HISTORY Diagnosis Date Abnormal mammogram [...] lysis of adhesions, Dr. Romelia SEGURA ABD PRTM&OMENTUM DX W/WO SPEC BR/WA SPX 2013 Laparoscopy twice PAST SURGICAL HISTORY OF 2011 dental extraction REMOVAL OF OVARY(S) Right 05/10/2023 Current Outpatient Medications Medication Sig lidocaine HCl 4 % crea Apply to affected area. ondansetron orally disintegrating (ZOFRAN ODT) 4 mg [...] SHORTNESS OF BREATH conj estrogens-bazedoxifene 0.45-20 mg EPINEPHrine (EPIPEN) 0.3 mg/0.3 mL auto-injector GIVE ONE DOSE INTO LATERAL THIGH FOR ALLERGIC REACTION. REPEAT DOSE IN 5-15 MINUTES IF NOT IMPROVING No current facility-administered medications for this visit. ALLERGIES: Bees, Morphine, Penicillins, Valium [Diazepam], and Tessalon [Benzonatate] REVIEW OF SYSTEMS: Denies fevers PHYSICAL EXAMINATION: General: The patient is 38 year old female, well nourished, well hydrated in no acute distress. Thepatient is oriented to time, place, and person. VITALS: Temperature 36.3 C (97.4 F), last menstrual period 05/16/2015. There is no height or weighton file to calculate BMI. Pilonidal cyst area - open wound - granulating well, no surrounding skin erythema Assessment IMPRESSION: s/p I&D of pilonidal cyst abscess, open wound healing by secondary intention PLAN: I have discussed the above with the patient. Patient requests additional time off of work. She has complaint of pain (beyond physical examination findings and normal course of postoperative healing) I will give her another week excuse letter but told her that she does not require any further additional time after this. Continue dressing changes as per previous. I have answered all questions to the patient s satisfaction and the patient has no further questions. I have confirmed and edited as necessary, the PFSH and ROS obtained by others. . Diagnoses: (Z98.890) Status post incision and drainage (primary encounter diagnosis) Return to Clinic: The patient is instructed to follow-up with me in 4 weeks for wound check. Medical Decision Making: Problems: Low: Stable chronic illness Medical Decision Making Level: 2 - Straightforward Gertrude Henry MD documented in this encounterMem[facility] Hospital Discharge instructions Patient Education 01/02/2024 17:48:11 Post Op Wound Check, Pain Wound Care After Surgery: Pain Surgery involves cutting through layers of skin, fatty tissue, muscle, and sometimes bone and cartilage. Stitches or jack are used to close all layers of the wound. The stitches on the inside willdissolve in about 2 to 3 weeks. Any stitches or jack used on the outside need to be removed in about 7 to 14 days, depending on the location. It is normal to feel pain at the incision site. The pain decreases as the wound heals. Most of the pain and soreness where the skin was cut should go away by the time the stitches or jack are removed. Soreness and pain from deeper tissues may last another week or two. Pain that continues more than a few weeks after surgery or pain that worsens anytime after surgery can be a sign of a problem, such as: Infection Separation of wound edges Collection of blood or fluid below the skin Home care Different types of surgery require different types of care and dressing changes. It is important tofollow all instructions and advice from your surgeon, as well as other members of your healthcare team. Wound care If you smoke, get help to quit. Smoking interferes with wound healing. Ask your doctor about ways to quit. Keep the wound clean, as directed by your healthcare provider. Change the dressing as directed. Change the dressing or sooner if it becomes wet or stained with blood or fluid from the wound. Bathe with a sponge (no shower or tub baths) for the first few days after surgery, or until there is no more drainage from the wound. Unless you received different instructions from your surgeon, youcan then shower. Don't soak the area in water (no baths or swimming) until the stitches, jack, or butterfly bandages are removed and any wound opening has dried out and healed. Changing the dressing Wash your hands before changing the dressings. Carefully remove the dressing and tape; don t just yank it off. If it sticks to the wound, you may need to wet it a little to remove it, unless your healthcare provider told you not to wet it. Wash your hands again before putting on a new, clean dressing. Gently clean the wound with clean water (or saline) using gauze or a clean washcloth. Don't rub it or pick at it. Don't use soap, alcohol, hydrogen peroxide, or any other cleanser. If you were told to dry the wound before putting on a new dressing, gently pat it dry. Don't rub. Put the old dressing in a sealed plastic bag and throw it out. Don't reuse it. Wash your hands again when you are done. Types of dressings Your healthcare team will tell you what type of dressing to put on your wound. Follow your healthcare team s instructions carefully, and contact them if you have any questions. Two common types of dressings are described below. You may have one of these or another type. Dry dressing. Use dry gauze. If the wound is still draining, use a nonadherent dressing, which shouldn t stick to the wound. Wet-to-dry dressing. Wet the gauze, and squeeze out the excess water (or saline), before putting iton. Then, cover this with a dry pad. Medicines If you were given antibiotics, take them until they are used up or your healthcare provider tells you to stop. It is important to finish the antibiotics even though you feel better, to make sure the infection has cleared. You can take acetaminophen or ibuprofen for pain, unless you were given a different pain medicine to use. (Note: If you have chronic liver or kidney disease, have ever had a stomach ulcer or gastrointestinal bleeding, or are taking blood thinner medicines, talk with your healthcare provider before using these medicines.) Aspirin should never be used in anyone under 18 years of age who is ill with a fever. It may cause severe liver damage. Follow-up care Follow up with your healthcare provider, or as advised, for your next wound check or removal of your sutures, jack, or tape. If a culture was done, you will be notified if the results will affect your treatment. You can callas directed for the results. If imaging tests, such as X-rays, an ultrasound, or CT scan were done, they will be reviewed by a specialist. You will be notified of the results, especially if they affect treatment. Call 911 Call 911 if any of these occur: Trouble breathing or swallowing Wheezing Hoarse voice or trouble speaking Extreme confusion Extreme drowsiness or trouble awakening Fainting or loss of consciousness Rapid heart rate or very slow heart rate Vomiting blood, or large amounts of blood in stool Discomfort in the center of the chest that feels like pressure, squeezing, a sense of fullness, or pain. Discomfort or pain in other upper body areas, such as the back, one or both arms, neck, jaw, or stomach Stroke 911 symptoms (spot a stroke FAST ) oF: Face drooping. One side of the face is numb or droops. oA: Arm weakness. One arm feels weak or numb. oS: Speech difficulty. Speech is slurred, or the person is unable to speak. oT: Time to call 911. Even if the symptoms go away, call 911. When to seek medical advice Call your healthcare provider right away if any of the following occur: Increasing pain at the site of surgery Fever of 100.4 F (38 C) or higher, or as directed by your healthcare provider Redness around the wound Fluid, pus, or blood draining from the wound Vomiting, constipation, or diarrhea 9033-1376 [employer]. [address] [place] [address]. All rights reserved. This information is not intended as a substitute for professional medical care. Always follow yourhealthcare professional's instructions. Follow Up Care 01/02/2024 17:34:27 With:YASSINE LINK MD Address: [address] [place] [address]- When:2-4 days [facility] 02-07-2024 Note Discharge Instructions Thank you for allowing [facility] to assist you with your healthcare needs. The following is importantdischarge information regarding your hospital visit. Diagnosis from Today's Visit Post surgical problem Wound pain What to Do Next Instructions from Your Care Team No qualifying data available. Post Acute Orders No qualifying data available. You Need to Schedule the Following Appointments Follow Up with YASSINE LINK MD When Within 2-4 days Where: [address] [place] [address]- Allergies Bee Stings (swelling) Tessalon Perles (rash) morphine (hives) penicillin (hives) Medications Please ask your primary doctor or pharmacist before taking any other medication not listed, including over the counter drugs, herbal medications, vitamins and or supplements as they may interact withyour home medications. What How Much When Instructions Last Dose Unchanged albuterol (Ventolin HFA MDI (90 mcg/ [...] medication providers or retail pharmacies. Education Materials Wound Care After Surgery: Pain Surgery involves cutting through layers of skin, fatty tissue, muscle, and sometimes bone and cartilage. Stitches or jack are used to close all layers of the wound. The stitches on the inside willdissolve in about 2 to 3 weeks. Any stitches or jack used on the outside need to be removed in about 7 to 14 days, depending on the location. It is normal to feel pain at the incision site. The pain decreases as the wound heals. Most of the pain and soreness where the skin was cut should go away by the time the stitches or jack are removed. Soreness and pain from deeper tissues may last another week or two. Pain that continues more than a few weeks after surgery or pain that worsens anytime after surgery can be a sign of a problem, such as: Infection Separation of wound edges Collection of blood or fluid below the skin Home care Different types of surgery require different types of care and dressing changes. It is important tofollow all instructions and advice from your surgeon, as well as other members of your healthcare team. Wound care If you smoke, get help to quit. Smoking interferes with wound healing. Ask your doctor about ways to quit. Keep the wound clean, as directed by your healthcare provider. Change the dressing as directed. Change the dressing or sooner if it becomes wet or stained with blood or fluid from the wound. Bathe with a sponge (no shower or tub baths) for the first few days after surgery, or until there is no more drainage from the wound. Unless you received different instructions from your surgeon, youcan then shower. Don't soak the area in water (no baths or swimming) until the stitches, jack, or butterfly bandages are removed and any wound opening has dried out and healed. Changing the dressing Wash your hands before changing the dressings. Carefully remove the dressing and tape; don t just yank it off. If it sticks to the wound, you may need to wet it a little to remove it, unless your healthcare provider told you not to wet it. Wash your hands again before putting on a new, clean dressing. Gently clean the wound with clean water (or saline) using gauze or a clean washcloth. Don't rub it or pick at it. Don't use soap, alcohol, hydrogen peroxide, or any other cleanser. If you were told to dry the wound before putting on a new dressing, gently pat it dry. Don't rub. Put the old dressing in a sealed plastic bag and throw it out. Don't reuse it. Wash your hands again when you are done. Types of dressings Your healthcare team will tell you what type of dressing to put on your wound. Follow your healthcare team s instructions carefully, and contact them if you have any questions. Two common types of dressings are described below. You may have one of these or another type. Dry dressing. Use dry gauze. If the wound is still draining, use a nonadherent dressing, which shouldn t stick to the wound. Wet-to-dry dressing. Wet the gauze, and squeeze out the excess water (or saline), before putting iton. Then, cover this with a dry pad. Medicines If you were given antibiotics, take them until they are used up or your healthcare provider tells you to stop. It is important to finish the antibiotics even though you feel better, to make sure the infection has cleared. You can take acetaminophen or ibuprofen for pain, unless you were given a different pain medicine to use. (Note: If you have chronic liver or kidney disease, have ever had a stomach ulcer or gastrointestinal bleeding, or are taking blood thinner medicines, talk with your healthcare provider before using these medicines.) Aspirin should never be used in anyone under 18 years of age who is ill with a fever. It may cause severe liver damage. Follow-up care Follow up with your healthcare provider, or as advised, for your next wound check or removal of your sutures, jack, or tape. If a culture was done, you will be notified if the results will affect your treatment. You can callas directed for the results. If imaging tests, such as X-rays, an ultrasound, or CT scan were done, they will be reviewed by a specialist. You will be notified of the results, especially if they affect treatment. Call 911 Call 911 if any of these occur: Trouble breathing or swallowing Wheezing Hoarse voice or trouble speaking Extreme confusion Extreme drowsiness or trouble awakening Fainting or loss of consciousness Rapid heart rate or very slow heart rate Vomiting blood, or large amounts of blood in stool Discomfort in the center of the chest that feels like pressure, squeezing, a sense of fullness, or pain. Discomfort or pain in other upper body areas, such as the back, one or both arms, neck, jaw, or stomach Stroke 911 symptoms (spot a stroke FAST ) oF: Face drooping. One side of the face is numb or droops. oA: Arm weakness. One arm feels weak or numb. oS: Speech difficulty. Speech is slurred, or the person is unable to speak. oT: Time to call 911. Even if the symptoms go away, call 911. When to seek medical advice Call your healthcare provider right away if any of the following occur: Increasing pain at the site of surgery Fever of 100.4 F (38 C) or higher, or as directed by your healthcare provider Redness around the wound Fluid, pus, or blood draining from the wound Vomiting, constipation, or diarrhea [id number] [employer]. [address] [place] [address]. All rights reserved. This information is not intended as a substitute for professional medical care. Always follow yourhealthcare professional's instructions. Additional Information VACCINATE! IT SAVES LIVES! Members of the community who have not yet received the COVID-19 vaccine and would like to receive it can visit one of [facility] vaccine clinics. There are many vaccine clinic locations within the [facility]. For locations and available times, please visit www.gettheshot.coronavirus.[place].gov/. It is important to note that some COVID mobile vaccine clinics are held outdoors and may be canceled in rainy or stormy conditions. To learn more about pediatric vaccinations (ages 5-11), we invite you to visit the [facility] webpage. https://www.[email or web address].org/pages/2372-Ebqms-Unbeihddkpx-Hmfqoqsweg-Rzhio-Uey stions.htmlTo learn more about the COVID-19 vaccine, we invite you to visit the CDC website for a list of frequently asked questions. https://www.cdc.gov/coronavirus/2019-ncov/vaccines/faq.html [facility] Patient Portal Access Instructions: Stay connected with your healthcare team and access your personal medical information anytime with the [facility] Patient Portal. If you would like a full copy of your medical records please contact the [facility] Medical Records Department Sunday through Sunday between 8a.m. and 4:30p.m. Please follow the directions below to access the portal: 1.Access the email account you provided upon registration to the [facility].2.Look for an invitation email from [facility].3.Open the email and access the invitation link: Accept Invitation to [facility]4.Fill in the required hankins to create your account. Sign into www.Lindsey [employer] with your username and password that you [...] you will allow to register on the [facility] Patient Portal for access to your information. You can also access the [facility] Patient Portal on the Infopia. Simply click on Health Records under [employer] and then click on the gis.to logo. HOW TO SAFELY DISPOSE OF PRESCRIPTION MEDICATIONS Please use one of the following methods to safely dispose of your unused medications. 1.Use a drug disposal kit: the drug disposal pouch allows you to safely discard your old and unuseddrugs. Ask your nurse to give you one when you are discharged.2.Visit a local take-back location: Many local pharmacies and police departments have programs that collect old and unwanted prescriptiondrugs. Call your local pharmacy or go to http://PerMicro.[employer]ight/1M1Xe8a to find one close to you.3.Make use of household items: Use cat litter or old coffee grounds to dispose medications if other options arenot available. Mix your drugs with these household products, seal them in an airtight container andthrow it into the garbage. Call [facility]: [phone] to be sure your drugs can be [...] drowsiness, such as benzodiazepines, also known as benzos,including diazepam and alprazolam, muscle relaxants or sleep aids. Never sell or share prescriptionopioids. This is illegal. Store opioids in a secure place and out of reach of others (including children, family, friends and visitors). The last page(s) of this document has been signed and retained as a CHART COPY Signatures Patient Education Materials Post Op Wound Check, Pain Medication Leaflets My discharge plan and instructions have been reviewed and explained to me and ISHELDON TRINA L understand my current condition and have read and understand these discharge instructions. I have received a written copy of the plan/instructions. If I have questions, I am aware that I should contact my doctor. 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 Signature: Date/Time: Relationship to Patient: Witness Name/Signature: Date/Time: [facility] [id number] Miscellaneous Notes* Telephone Encounter - Alejandra Griffiths LPN - 01/02/2024 1:20 PM EST Patient called, verified name and date of , regarding wound. Patient had excision of pilonidal cyst 12/20/23, last office visit was 12/25/23 with PLAN: I have recommended dressings changes at least 2-3 times per day. Dressing may be soaked off in a tub for patient's comfort. I have prescribed her additional pain medications, but I have told patient that this will be the last amount and the patient acknowledges this. Follow up with me next week for wound check Patient states she bent over yesterday and felt the incision rip, has been in pain since. Patient rates pain 8/10. States she has an aide to look at it everyday, aide states incision looks good. No other complaints besides increase pain. Advised patient to alternate tylenol/ ibuprofen, patient states she is already doing this but the only thing that helps is the oxycodone. Patient would like to be advised if she can have additional pain meds. If not patient would like to know what to do about pain. Nurse reinforced the alternating tylenol/ ibuprofen. If symptoms worsen visit local ER or Urgent care. Next appointment is 01/07/24 Please review and advise. Alejandra Griffiths LPN January 02, 2024 1:26 PM documented [facility] History of Present illness Narrative* Gertrude Henry MD - 12/25/2023 11:41 AM EST FOLLOW UP VISIT NAME: Anne Debbie [facility] NO.: [id number] DATE OF SERVICE: 12/25/2023 : 1985 REFERRING [...] done by her friend who is an MULE TENDER. VITALS: Blood pressure 118/78, pulse 82, temperature 36.6 C (97.8 F), height 152.4 cm (5'), weight 73.5 kg (162 lb), last menstrual period 05/16/2015, SpO2 97%. On examination, wound has a base of fibrinous exudate, no surrounding erythema of the skin, openingis patent Assessment IMPRESSION: s/p I&D of pilonidal [...] others. Gertrude Henry MD documented in this encounterMem[facility]-28-2024 Miscellaneous Notes* Telephone Encounter - Anu Morin RN - 12/23/2023 2:22 PM EST Reason for Call: Patient calling with concern for bleeding and odor from incision cite. Patient underwent pilonidal cyst removal on 12/20/23. She went to the emergency room 12/22/23 due to uncontrolledpain. Pain is now under control, however, she is now having brown colored drainage and an odor at the cite. Outcome: Conferenced to Answering Service [ ] to speak with provider front end web developer for Dr. Gertrude Henry. GO TO THE EMERGENCY ROOM OR CALL 911 IF: * You develop any new symptoms * Your condition worsens Anu Morin RN documented in this encounterMem[facility]24 Telephone encounter Note * Telephone Encounter - Kathi Soto - 12/07/2023 3:19 PM EST 12/20/2023 I & D PILONIDAL CYST ABSCESS LODI [facility]01-12-2024 Miscellaneous Notes* Telephone Encounter - Kathi Soto - 12/07/2023 3:19 PM EST 12/20/2023 I & D PILONIDAL CYST ABSCESS LODI documented in this encounterMem[facility]12-27-2023 Hospital Discharge instructions Patient Education 11/21/2023 16:05:25 Abscess, Antibiotic Treatment Only Abscess (Antibiotic Treatment Only) An abscess (sometimes called a boil ) happens when bacteria get trapped under the skin and start togrow. Pus forms inside the abscess as the body responds to the bacteria. An abscess can happen withan insect bite, ingrown hair, blocked oil gland, [...] in hot water) to the area for 20minutes at a time. Do this 3 to 4 times a day. Do not cut, squeeze, or pop the boil yourself. Apply antibiotic cream or ointment to the skin 3 to 4 times a day, unless something else was prescribed. Some ointments include an antibiotic plus a pain reliever. If your doctor prescribed antibiotics, do not stop taking them until you have finished the medicineor the doctor tells you to stop. You may use an usze-elj-qhfuyis pain medicine to control pain, unless another pain medicine was prescribed. If you have chronic liver or kidney disease or ever had a stomach ulcer or gastrointestinalbleeding, talk with your doctor before using these [...] the abscess Boil returns after getting better [id number] [employer]. [address] [place] [address]. All rights reserved. This information is not intended as a substitute for professional medical care. Always follow yourhealthcare professional's instructions. Follow Up Care 11/21/2023 15:43:04 With:YASSINE LINK MD Address: [address] [place] [address]- When:2-4 days [facility] 12-27-2023 Note Basic Information Time Seen: MAYI REAVES MD 11/21/2023 15:47 History of Present Illness Patient is a 38-year-old female presenting to the emergency department today for evaluation of redness around her left buttock. She states that she was diagnosed with an abscess 2 days ago at [facility] and had an incision and drainage performed. At that time she was placed on Vicodin and doxycycline. She states that she has been taking antibiotics as prescribed and has run out of the pain m edication. She states the pain medication has not been helping with the pain. States that the redness around the site of the abscess is actually worsening. For this reason she came to the emergency department for further evaluation. She does state that she has a friend with general surgeon tomorrowfor outpatient evaluation of this abscess. Review of [...] YASSINE LINK MD Within 2-4 days [address] [place] [address]- Additional Instructions: Medications What How Much When Why Instructions New acetaminophen-hydrocodone ([place] 325- 5 mg oral tablet) 1 tab(s) [...] CAROLINE ORTIZ MD on 11/21/2023 06:03 PM [facility]12-27-2023 Note Discharge Instructions Thank you for allowing [facility] to assist you with your healthcare needs. The following is importantdischarge information regarding your hospital visit. Diagnosis from [...] MD When Within 2-4 days Where: [address] [place] [address]- Allergies Bee Stings (swelling) Tessalon Perles (rash) morphine (hives) penicillin (hives) Medications Please ask your primary doctor or pharmacist before taking any other medication not listed, including over the counter drugs, herbal medications, vitamins and or supplements as they may interact withyour home medications. What How Much When Why Instructions Last Dose New acetaminophen-hydrocodone ([place] 325- 5 mg oral tablet) 1 tab(s) by mouth Every 6 hours as needed for for pain Cellulitis Duration: 1 Days Printed Prescription New acetaminophen-hydrocodone ([place] 325- 5 mg oral tablet) 1 tab(s) [...] get trapped under the skin and start togrow. Pus forms inside the abscess as the body responds to the bacteria. An abscess can happen withan insect bite, ingrown hair, blocked oil gland, [...] in hot water) to the area for 20minutes at a time. Do this 3 to 4 times a day. Do not cut, squeeze, or pop the boil yourself. Apply antibiotic cream or ointment to the skin 3 to 4 times a day, unless something else was prescribed. Some ointments include an antibiotic plus a pain reliever. If your doctor prescribed antibiotics, do not stop taking them until you have finished the medicineor the doctor tells you to stop. You may use an mqpo-njg-njjibpr pain medicine to control pain, unless another pain medicine was prescribed. If you have chronic liver or kidney disease or ever had a stomach ulcer or gastrointestinalbleeding, talk with your doctor before using these [...] the abscess Boil returns after getting better [id number] [employer]. [address] [place] [address], [place] [address]. All rights reserved. This information is not intended as a substitute for professional medical care. Always follow yourhealthcare professional's instructions. Additional Information VACCINATE! IT SAVES LIVES! Members of the community who have not yet received the COVID-19 vaccine and would like to receive it can visit one of [facility] vaccine clinics. There are many vaccine clinic locations within the [facility]. For locations and available times, please visit www.[email or web address].[place].gov/. It is important to note that some COVID mobile vaccine clinics are held outdoors and may be canceled in rainy or stormy conditions. To learn more about pediatric vaccinations (ages 5-11), we invite you to visit the [facility] webpage. https://www.[email or web address].org/pages/0241-Vdngu-Ipkiooehpct-Vppmmqtrlm-Fobog-Dwa stions.htmlTo learn more about the COVID-19 vaccine, we invite you to visit the CDC website for a list of frequently asked questions. https://www.cdc.gov/coronavirus/2019-ncov/vaccines/faq.html [facility] Patient Portal Access Instructions: Stay connected with your healthcare team and access your personal medical information anytime with the [facility] Patient Portal. If you would like a full copy of your medical records please contact the [facility] Medical Records Department Sunday through Sunday between 8a.m. and 4:30p.m. Please follow the directions below to access the portal: 1.Access the email account you provided upon registration to the hospital.2.Look for an invitation email from [facility].3.Open the email and access the invitation link: Accept Invitation to [facility]4.Fill in the required hankins to create your account. Sign into www.Lindsey Shell with your username and password that you [...] you will allow to register on the [facility] Patient Portal for access to your information. You can also access the [facility] Patient Portal on the [employer] phillip. Simply click on Health Records under [employer] and then click on the [facility] logo. HOW TO SAFELY DISPOSE OF PRESCRIPTION MEDICATIONS Please use one of the following methods to safely dispose of your unused medications. 1.Use a drug disposal kit: the drug disposal pouch allows you to safely discard your old and unuseddrugs. Ask your nurse to give you one when you are discharged.2.Visit a local take-back location: Many local pharmacies and police departments have programs that collect old and unwanted prescriptiondrugs. Call your local pharmacy or go to http://bit.ly/4T3Fy4q to find one close to you.3.Make use of household items: Use cat litter or old coffee grounds to dispose medications if other options arenot available. Mix your drugs with these household products, seal them in an airtight container andthrow it into the garbage. Call [facility]: [phone] to be sure your drugs can be [...] drowsiness, such as benzodiazepines, also known as benzos,including diazepam and alprazolam, muscle relaxants or sleep aids. Never sell or share prescriptionopioids. This is illegal. Store opioids in a [...] aware that I should contact my doctor. 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 Signature: Date/Time: Relationship to Patient: Witness Name/Signature: Date/Time: [facility]12-25-2023 Discharge summary Author Grant Mercado [facility] November 19, 2023 1:59pm Note Date/Time November 19, 2023 1:08pm [facility] Medical Records Department [address] [place] [address] Emergency Department Summary 11/19/23 MR#: [id number] Acct: [id number] Name: ANNE CHUNG Rep #:[id number] : 1985 38 From: Grant Mercado MD PCP: Dr. Yassine Link MD Status:R EG ER Location: ED HPI History of Present Illness Chief Complaint: Abscess Detail of Chief Complaint: Abscess left buttocks Informant: patient Onset/Context/Timing Onset: Weeks (Onset 1 week ago) Context: Sudden Onset Timing: Continuous Quality: Pain Location: Superior medial aspect of left buttocks Current Severity: Moderate Maximum Severity: Severe Worsened by: Sitting Relieved by: Nothing Associated Symptoms Associated Symptoms: Denies fever or chills Narrative Narrative: Patient is a 38-year-old woman with history of irritable bowel, GERD, depressionanxiety who presents with abscess left buttocks. Started a week ago. She attempted to squeeze the pus out without success. She did not poke it with anything. She states she sat in hot water hoping that it would spontaneously drain it did not. She presently reports the pain to be severe. She denies fever or chills. Denies history medic fever, heart murmur or mitral valve prolapse. She is on no immunosuppressive meds. She is not diabetic. She denies history of pilonidal cyst. Prior similar symptoms: Yes Recent Illness/Hospitalization: No PFSH PFSH Medical History Anxiety Depression GERD (gastroesophageal reflux disease) H/O thoracic outlet syndrome IBS (irritable bowel syndrome) Left shoulder strain PTSD (post-traumatic stress disorder) Thoracic outlet syndrome Home Medications doxycycline monohydrate 100 mg capsule 100 mg PO BID #14 CAPSULES 11/19/23 [Rx Last Taken Unknown] estradiol 1 mg tablet 1 mg PO DAILY 11/19/23 [History Last Taken 11/19/23] estradiol 2 mg tablet 2 mg PO DAILY 11/19/23 [History Last Taken 11/19/23] Allergy/AdvReac Type Severity Reaction Status Date / Time benzonatate Allergy Rash Verified 11/19/23 13:30 [From Tessalon Perles] diazepam [From Valium] Allergy Hives Verified 11/19/23 13:30 morphine Allergy Itching Verified 11/19/23 13:30 Penicillins Allergy Hives Verified 11/19/23 13:30 venom-honey bee Allergy Hives Verified 11/19/23 13:30 [bee venom (honey bee)] Family History Father Heart disease Hypertension Myocardial infarction Mother Cancer lung, throat and Lupus Surgical History History of esophagogastroduodenoscopy (EGD) History of left oophorectomy S/P breast biopsy S/P colonoscopy Status post hysterectomy Social History household members: none Smoking Status: Current every day smoker tobacco type: cigarettes alcohol intake: current alcohol intake frequency: holidays/special occasions only substance use type: marijuana caffeine: Yes what type of physical activity do you participate in: none seatbelt use: sometimes do you feel safe at home: Yes additional social history: Boyfriend-Sha- Works at [employer] Patient works at [employer] ROS ROS ED Constitutional Constitutional ED: Denies chills, fever(s), subjective, sweats or weight loss Eyes Eyes: Denies blurry vision, change in vision or diplopia Cardiovascular Cardiovascular: Denies chest pain or palpitations Respiratory/Chest Respiratory/Chest: Denies cough, dyspnea or dyspnea on exertion Gastrointestinal Gastrointestinal: Denies abdominal pain, nausea or vomiting Musculoskeletal Musculoskeletal: Denies arthralgias, back pain, myalgias or neck pain Integumentary Reports abscess; Denies Abrasions or rash Neurologic Neurologic: Denies paresthesias or weakness Hematologic/Lymphatic Hematologic/Lymphatic: Reports systems reviewed and no addt'l complaints, exceptas documented and other Details: Patient is on no anticoagulant or antithrombotic medication. EXAM Physical Exam Const Vital Signs: 11/19/23 12:46 11/19/23 13:45 Temperature 97.2 F L 98.2 F Temperature Source Temporal Pulse Rate 98 93 Respiratory Rate 16 14 Blood Pressure 109/80 115/70 Blood Pressure Mean 89 Pulse Ox 99 100 Oxygen Delivery Method Room Air Nasal Cannula Oxygen Flow Rate (L/min) 2 Positive well nourished, well developed and obese Constitutional Narrative: Patient is in obvious discomfort. She is squatting at the side of the bed. Shestates she cannot sit down. She is crying. General Appearance ED: well developed; Negative for cyanotic, diaphoretic, NAD or pallor Nutritional Appearance: obese HEENT Reports moist mucous membranes HEENT Narrative: Head is atraumatic and normocephalic. External ears normal. Nares patent. Posterior pharynx is normal. Eyes PERRL and EOMs intact bilaterally Neck no lymphadenopathy, supple and no JVD Chest Wall inspection of chest normal and palpation of chest normal Resp normal respiratory effort and clear to auscultation bilaterally Cardio regular rate, regular rhythm, S1 normal heart sound, S2 normal heart sound and no murmurs GI normal to inspection, nondistended, normoactive bowel sounds, non-tender, non-distended and no masses; Negative for hepatosplenomegaly Back/Spine no CVA tenderness Extremity normal to inspection General Extremety ED: Negative for edema or tenderness General Extremity: Negative for edema Neuro oriented x3, CN's II-XII intact bilaterally and no sensory deficits noted Sensorium / Orientation: alert Psych Mood & Affect: tearful Skin no rashes or lesions noted, No no wounds and skin turgor normal Skin Narrative: Patient has cellulitis that 12 x 10 cm in size. The fluctuant area is the size of a nickel. General Skin Exam: Negative for jaundice or pallor Trauma: abrasion MDM MDM MDM Narrative Medical decision making narrative: Patient has a buttocks abscess with cellulitis that required I&D. Since patientis not immune suppressed does not have diabetes and this has fostered for over aweek we will treat with p.o. antibiotics after I&D since patient last ate at 11:30 AM. She had to tater tots. She has not eaten otherwise since last evening. Patient received first dose of doxycycline in light of patient's allergy to penicillin with hives. Procedures Procedural Sedation 1 (Initial Baseline): Consent Signed: Yes Any Problems With Anesthesia: No You/Your family experience fever (hyperthermia) w/anesthesia: No Sedation medication: Propofol Dose: 130 Route: IV Total Moderate Sedation Units: 8 Maliampati Score: Class I ASA Classification: II Comment:: Monitor revealed a heart rate of 72 at the beginning of the procedure. pCO2 was44. Saturation was 96%. Patient was prepped draped sterile manner. The area was cleansed with Betadine. The abscess was anesthetized by local infiltration and field block. Incision was made using a 10 blade. Length of incision 1.5 cm. There was approximately 10 cc of. Material that drained spontaneously. Blunt dissection was undertakenwith an additional 5 cc of purulent material. Wick was placed using 1 inch Nu Gauze. Patient tolerated procedure. There was no complications. At the end the procedure patient's heart rate was 74 and a normal sinus rhythm on the monitor with a pCO2 of 42. Discharge Plan Triage Chief Complaint: Abscess ED Provider: Grant Mercado Dx/Rx/DC Orders Clinical Impression: Cellulitis and abscess of buttock, Anxiety Instructions: ED Abscess Incision And Drainage, ED Cellulitis Prescriptions: New doxycycline monohydrate 100 mg capsule 100 mg PO BID Qty: 14 0RF No Action estradiol 1 mg tablet 1 mg PO DAILY estradiol 2 mg tablet 2 mg PO DAILY Primary Care Provider: Yassine Link Referrals: Yassine Link MD [Primary Care Provider] - Activity Restrictions/Additional Instructions: 1. Take antibiotics till gone 2. Follow-up with Dr. Link to have wick removed in 2 to 3 days. 3. If you develop a temperature greater than 100 or have shaking chills return to the emergency department Disposition Disposition: Home, Self Care What to do if you have Problems For any increased pain, shortness of breath, bleeding, nausea or vomiting, chestpain, or any unexpected problems, contact your Primary Care Provider. Call [employer] [facility] ([phone]) or report to the closest Emergency Room. Call 911 if necessary. 11/19/23 [id number] <Electronically signed by Grant Mercado MD> Cosigner Signature (if applicable): CC: Dr. Yassine Link MD ~ Signed [facility] Work Phone: 1(623) 442-503811-06-2023 History of Present illness Narrative* Yassine Link MD - 10/01/2023 2:53 PM EST This note was created using [employer]ogenetixter. Subjective DISTANCE HEALTH VISIT Anne Chung's identity was confirmed. The limitations of telemedicine were reviewed, and verbal consent was obtained for this encounter. This encounter is not related to previous similar encounterwithin the past 7 days. No face to face visit is planned in the next day in connection to this encounter. This telemedicine encounter was accomplished via Zoom. Anne Chung is a 37 year old female with coughing, nausea, vomiting since Sunday. Other symptomswere wheezing, dyspnea. She felt feverish today. Dayquil and Nyquil were taken with temporary relief. 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 She had no contact [...] effects. Yassine Link MD documented in this [facility] Miscellaneous Notes* Telephone Encounter - Em Khanna LPN - 09/21/2023 3:32 PM EDT Pharmacist notified of providers message and verbalized understanding. Attempted to also contact patient with information but no answer and voice mailbox is full * Telephone Encounter - German Pires APRN.CNS - 09/21/2023 3:22 PM EDT OK, see below.Switched to ibuprofen 800 mg TID. * Telephone Encounter - Evelin Posey RN - 09/21/2023 2:49 PM EDT Eugenio, Pharmacist with [facility] calling regarding pt's script [...] and patient. Thank you. documented in this [facility]10-27-2023 Hospital Discharge instructions Additional Instructions 1. Apply ice to your left ankle 6-10 times a day 2. Draw the alphabet with your foot 4-6 times a day 3. Wear flat shoes. He should not go up or down inclines or go up or down ladders.[facility] Work Phone: [phone]) 916-956808-08-2023 Miscellaneous Notes* Telephone Encounter - Levy Luu Ma - 07/03/2023 4:49 PM EDT TERESE: 05/28/2023 Last refill: 04/06/2023 QTY: 30 Refills: 0 documented in this [facility]07-07-2023 Miscellaneous Notes* Telephone Encounter - ANITRA Pastrana - 06/01/2023 12:13 PM EDT Patient has been identified by name and [...] Thank you. ANITRA Pastrana documented in this [facility]07-03-2023 History of Present illness Narrative* Yassine Link MD - 05/28/2023 7:46 PM EDT This note was created using NoteWriter. Subjective Patient presents with: ED Follow-up Anne Chung is a 37 year old female who is status post right [facility] [facility] [facility]. She went back to work this weekend and developed progressively severe sharp umbilical pain with nausea. She went to the [facility] yesterday, where labs were labs and CT scan of of the abdomen and pelvis were within normal limits. She was given Toradol with no relief and one dose of [place]. She was advised to follow up with Dr. Cunningham, but was told he was out for the weekand to go to . She finished her prescription of oxycodone from him yesterday. She had a follow upon June 04. Review of Systems Constitutional: Negative [...] TABLET Yassine Link MD documented [facility] encounter[facility] Discharge summary Author Christos Storm [facility] May 27, 2023 1:27pm Note Date/Time May 27, 2023 10:45 am [facility] Medical Records Department [address] [place] [address] Emergency Department Summary 05/27/23 MR#: [id number] Acct: [id number] Name: ANNE CHUNG Rep #:[id number] : 1985 37 From: Christos Storm MD PCP: Dr. Yassine Link MD Status:R EG ER Location: ED HPI HPI - GI History of Present Illness Chief Complaint: Abd Pain Detail of Chief Complaint: Periumbilical abdominal pain status post oophorectomy. Informant: patient Abdominal Pain/Flank Pain Onset: Today Context: Gradual Onset Timing: Continuous Quality: Aching Location: - (Periumbilical) Current Severity: Mild Maximum Severity: Moderate Worsened by: Nothing Relieved by: Nothing Nausea/Vomiting/Emesis GI Symptom: Positive for Nausea; Negative for Vomiting Onset: Today Severity: Mild Diarrhea/Melena/Hematochezia GI Symptom: Negative for Diarrhea, Melena or Hematochezia Associated Symptoms Associated Symptoms: Negative for Dysuria, Frequency, Hematuria or Urgency Narrative Narrative: 37-year-old female prior hysterectomy with 1 ovary removed. [address] Cunningham at [facility] removed the right ovary. Laparoscopically. Initiallythey did just her pain medication then she was doing well. Today she is complaining of periumbilical abdominal pain. Denies any dysuria. No fever. Nausea without vomiting or diarrhea. Prior similar symptoms: Yes Recent Illness/Hospitalization: No PFSH PFSH Medical History Anxiety Depression GERD (gastroesophageal reflux disease) H/O thoracic outlet syndrome IBS (irritable bowel syndrome) Left shoulder strain Thoracic outlet syndrome Home Medications albuterol sulfate 90 mcg/actuation aerosol inhaler 2 puff inhalation Q4H PRN PRNAsthma ##0 05/03/16 [Rx Last Taken 11/17/18] pantoprazole 20 mg tablet,delayed release 20 mg PO BID 04/26/20 [History Last Taken Unknown] lorazepam 0.5 mg tablet 0.5 mg PO QHS PRN Anxiety 04/25/23 [History Last Taken Unknown] Allergy/AdvReac Type Severity Reaction Status Date / Time benzonatate Allergy Rash Verified 05/27/23 09:49 [From Tessalon Perles] diazepam [From Valium] Allergy Hives Verified 05/27/23 09:49 morphine Allergy Itching Verified 05/27/23 09:49 Penicillins Allergy Hives Verified 05/27/23 09:49 venom-honey bee Allergy Hives Verified 05/27/23 09:49 [bee venom (honey bee)] Family History Father Heart disease Hypertension Myocardial infarction Mother Cancer lung, throat and Lupus Surgical History History of esophagogastroduodenoscopy (EGD) History of left oophorectomy S/P breast biopsy S/P colonoscopy Status post hysterectomy Social History household members: none Smoking Status: Current every day smoker tobacco type: cigarettes alcohol intake: current alcohol intake frequency: holidays/special occasions only substance use type: marijuana caffeine: Yes what type of physical activity do you participate in: none seatbelt use: sometimes do you feel safe at home: Yes additional social history: Boyfriend-Sha- Works at [employer] Patient works at [employer] ROS ROS ED ROS Narrative Periumbilical abdominal pain. Nausea. Review of Systems ROS Unobtainable: Denies due to encephalopathy Constitutional Constitutional ED: Denies chills or fever(s) ENT ENT ED: Denies ear pain Cardiovascular Cardiovascular: Denies chest pain Respiratory/Chest Respiratory/Chest: Denies cough Gastrointestinal Gastrointestinal: Reports abdominal pain and nausea; Denies constipation, diarrhea, melena or vomiting Genitourinary Genitourinary ED: Denies dysuria or hematuria Musculoskeletal Musculoskeletal: Denies arthralgias or back pain Integumentary Denies abscess Neurologic Neurologic: Denies headache(s) Psychiatric Psychiatric: Denies anxiety Endocrine Endocrinology: Denies polydipsia Hematologic/Lymphatic Hematologic/Lymphatic: Denies easy bleeding Allergic/Immunologic Allergic/Immunologic ED: Denies mouth swelling or tongue swelling EXAM Physical Exam Narrative Exam Narrative: Well-appearing 37 female. Vital signs stable afebrile. She does not look septic toxic or in distress. H EENT exam unremarkable. Lungs clear. Heart regular rhythm rate about 80 no murmur. Abdomen soft nondistended normal bowel sounds no peritoneal signs. Both lower quadrants are tender. She is very well-healed laparoscopic incisions are dry and clean. The umbilicus itself is unremarkable. There is no organomegaly or masses. No hernia. No distention orsigns of obstruction. No peritoneal signs. Moving all 4 extremities. Back nontender. Neurologically she is awake and alert. Very benign exam. Const Vital Signs: 05/27/23 09:49 Temperature 99 F Temperature Source Temporal Pulse Rate 82 Respiratory Rate 14 Blood Pressure 104/74 Blood Pressure Mean 84 Pulse Ox 100 Oxygen Delivery Method Room Air Positive well nourished and well developed; Negative for cachectic, contracturesor unkempt General Appearance ED: well developed and NAD; Negative for unkempt, cachectic, contractures or pallor Nutritional Appearance: Negative for cachectic HEENT Reports moist mucous membranes normocephalic and atraumatic; Negative for trauma or tenderness Eyes PERRL and EOMs intact bilaterally General Eye ED: Negative for pale conjunctiva, scleral icterus or other Neck no lymphadenopathy, supple and no JVD General: Negative for tenderness Carotids: Negative for other Lymph Lymphatic: Negative for other Resp normal respiratory effort and clear to auscultation bilaterally Effort and Inspection: Negative for respiratory distress Auscultation: Negative for rales, rhonchi or wheezes Cardio regular rate, regular rhythm, S1 normal heart sound, S2 normal heart sound and no murmurs Rate: Negative for bradycardia or tachycardic Rhythm: Negative for abnormal rhythm GI non-distended and no masses; Negative for non-tender Inspection: Negative for abdominal distention Auscultation: normoactive bowel sounds Palpation: soft and tender; Negative for guarding, rigid, hepatomegaly, splenomegaly, hernia, mass, pulsatile mass or rebound tenderness present Back/Spine no CVA tenderness General Back: Negative for CVA tenderness Cervical Spine: Negative for cervical spine tenderness Thoracic Spine / Upper Back: Negative for thoracic spinal tenderness Lumbar Spine / Lower Back: Negative for lumbar spinal tenderness Coccyx: Negative for other Extremity full ROM General Extremety ED: Negative for edema or tenderness General Extremity: Negative for edema Neuro CN's II-XII intact bilaterally and moves all extremities Sensorium / Orientation: alert, oriented to person, oriented to place and oriented to time; Negative for orientation impaired, confused, lethargic or stuporous Motor Exam: strength 5/5 throughout Psych mental status grossly normal and thought process normal Appearance: Negative for unkempt Attitude: No agitated Mood & Affect: Negative for depressed, anxious or tearful Skin no wounds General Skin Exam: Negative for jaundice or pallor Lesions: no lesions Rashes: no rashes Trauma: Negative for abrasion Nails: Negative for discolored MDM MDM MDM Narrative Medical decision making narrative: 37-year-old female with periumbilical and lower abdominal pain after oophorectomy laparoscopically 2 weeks ago. Exam is benign she complains of discomfort but her abdomen is actually very benign. CAT scan and labs are pending. She has a morphine allergy she will be treated with IV Toradol. And Zofran for nausea. Repeat exam patient is doing well. Still has a benign abdomen. She is complaining of pain. She be given 1 [place] for pain. I do not think she merits Dilaudid for her discomfort. She reportedly has a morphine allergy. She said the Toradol was of no relief. I went over her labs and CAT scan with her. Wereawaiting the urinalysis results. Patient doing well. Was complaining of additional pain after the Toradol. She was given 1 [place]. Her abdomen is completely benign. Labs and CAT scan are unremarkable. She is comfortable being discharged home. Tylenol Motrin for pain. She needs no further pain medications. Lab Data Attestation: I reviewed the patient's lab results. Lab results narrative: CBC normal. White count 9.6. H&H 14 and 41. Platelets 212. Electrolytes show a gap of 2 normal BUN and creatinine. Liver enzymes are normal. Patient has not been able to urinate as of yet so we do not have urine. CAT scan is unremarkable as read by the radiologist and reviewed by me. Urinalysis is normal. No white or red cells. No bacteria no nitrates. Labs: Laboratory Results - last 24 hr 05/27/23 05/27/23 11:05 12:21 WBC 9.6 RBC 4.34 Hgb 14.3 Hct 41.4 MCV 95.4 MCH 32.9 H MCHC 34.5 RDW Std Deviation 43.1 RDW Coeff of Reji 12.4 Plt Count 212 MPV 10.9 Immature Gran % (Auto) 0.300 Neut % (Auto) 67.3 Lymph % (Auto) 25.0 [place] % (Auto) 5.0 Eos % (Auto) 1.8 Baso % (Auto) 0.6 Absolute Neuts (auto) 6.4 Absolute Lymphs (auto) 2.39 Nucleated RBC % 0 Sodium 139 Potassium 4.3 Chloride 110 H Carbon Dioxide 27.0 Anion Gap 2 L BUN 11 Creatinine 0.68 Estim Creat Clear Calc 80.57 Est GFR (MDRD) Af Amer 125 Est GFR (MDRD) Non-Af 103 BUN/Creatinine Ratio 16.2 Glucose 102 Calcium 9.0 Total Bilirubin 0.30 AST 14 L ALT 24 Alkaline Phosphatase 62 Total Protein 6.6 Albumin 3.4 Globulin 3.2 Albumin/Globulin Ratio 1.1 Urine Color Yellow Urine Clarity Clear Urine pH 8.0 Ur Specific [place] 1.010 Urine Protein 30 H Urine Glucose (UA) Normal Urine Ketones Negative Urine Occult Blood Negative Urine Nitrite Negative Urine Bilirubin Negative Urine Urobilinogen 1 H Ur Leukocyte Esterase 25 H Urine RBC 0 SEEN Urine WBC 0 SEEN Ur Squamous Epith Cells 0-5 SEEN Urine Bacteria 0 SEEN Urine Mucus 0 SEEN Radiography Diagnostic Testing: Clinical Impression(s) from Imaging Studies Abdomen/Pelvis CT 05/27/23 10:40 IMPRESSION: Normal enhanced CT of the abdomen and pelvis. Electronically Signed: Gabino Aparicio MD at 12:02 EDT , Discharge Plan Triage Chief Complaint: Abd Pain ED Provider: Christos Storm Dx/Rx/DC Orders Clinical Impression: Acute postoperative abdominal pain Instructions: Abdominal Pain Prescriptions: No Action albuterol sulfate 1 INHALER inhaler 2 puff INHALATION Q4H PRN PRN (Reason: Asthma) Qty: 0 0RF Patient Comments: asthma pantoprazole 20 MG tablet 20 mg PO BID lorazepam 0.5 mg tablet 0.5 mg PO QHS PRN (Reason: Anxiety) Patient Comments: TAKE 1 TABLET BY MOUTH AT BEDTIME NEEDED FOR ANXIETY Primary Care Provider: Yassine Link Referrals: Romelia Cunningham MD [Non-Staff] - As soon as possible Yassine Link MD [Primary Care Provider] - Activity Restrictions/Additional Instructions: Tylenol and Motrin for pain. Follow-up with your HEALTHCARE RECEPTIONIST Dr. Cunningham. Your CAT scan and labs today were unremarkable. Disposition Disposition: Home, Self Care What to do if you have Problems For any increased pain, shortness of breath, bleeding, nausea or vomiting, chestpain, or any unexpected problems, contact your Primary Care Provider. Call [facility] ([phone]) or report to the closest Emergency Room. Call 911 if necessary. 05/27/23 1327 <Electronically signed by Christos Storm MD> Cosigner Signature (if applicable): CC: Dr. Yassine Link MD ~ Signed [facility] Work Phone: 1(316) 122-102805-12-2023 Miscellaneous Notes* Telephone Encounter - Levy Luu Ma - 04/06/2023 1:54 PM EDT Patient notified, verbalized understanding. * Telephone Encounter - Beatrice Camargo APRN.CNP - 04/06/2023 1:36 PM EDT Patient has been using Ativan more often, she needs to cut back Beatrice Camargo APRN.CNP PDMP website checked and validated. All prescriptions have been APPROPRIATELY filled. No suspiciousactivity was identified. 04/06/2023 by Beatrice Camargo APRN.CNP * Telephone Encounter - Evelin Maynard - 04/06/2023 12:11 PM EDT Patient is calling back requesting these medications. Please advise the patient. * Telephone Encounter - Leticia Persaud LPN - 04/02/2023 4:35 PM EDT Patient has been identified by name and [...] you. Leticia Persaud LPN documented in this encounterMemorial [facility]04-17-2023 History of Present illness Narrative* Yassine Link MD - 03/12/2023 6:18 PM EDT This note was created using [employer]et[employer]. Subjective DISTANCE HEALTH VISIT Anne Chung's identity was confirmed. The limitations of telemedicine were reviewed, and verbal consent was obtained for this encounter. This encounter is not related to previous similar encounterwithin the past 7 days. No face to [...] had been to the ER twice this monthand today ER provider declined to prescribe more [...] recommendations. Yassine Link MD documented in this encounterMemorial [facility]03-31-2023 Miscellaneous Notes* Telephone Encounter - Shelbie Kali AN - 02/23/2023 2:02 PM EDT Last office visit: 02/20/23 Next appointment scheduled: No future appointments scheduled at this time. Patient phones requesting refills as follows: Requested Prescriptions Pending Prescriptions Disp Refills ondansetron orally disintegrating (ZOFRAN ODT) 4 mg disintegrating tablet 20 tablet 0 Sig: Take 1 tablet by mouth every 6 hours as needed for nausea/vomiting. Please review and advise. Shelbie Bass LPN documented in this encounterMemorial [facility]03-28-2023 Miscellaneous Notes* Telephone Encounter - Sally Rincon Sec - 02/20/2023 10:02 AM EDT Ms. Chung called in response to a Team[employer] message about [facility] an [facility]. She would like a call back to let her know why she needs the appointment. Deborah Rincon Pressurised Container Filler documented in this encounterMemorial Health System [facility]03-13-2023 Miscellaneous Notes* Telephone Encounter - Levy Luu Ma - 02/05/2023 11:01 AM EDT TERESE: 01/29/2023 Distance Health Last refill: 01/29/2023 QTY: 9 Refills: 0 documented in this encounterMemorial Health [facility]03-06-2023 History of Present illness Narrative* German Pires APRN.CORE MOUNTER - 01/29/2023 11:40 AM EST I have communicated my name and active licensure. The patient's identity and physical location wereverified at the time of this visit. Either the patient or their legal territory representative has been informed of the risks and benefits of -- and alternatives to -- treatment through a remote evaluation andconsents to proceed with the evaluation remotely. Video visit. In [place]. Patient only. Consents to visit. SUBJECTIVE: HEPATITIS [...] lump. She reports being seen by her HEALTHCARE RECEPTIONIST Dr. Cunningham for folliculitis which she reports [...] been ordered by her vascular surgeon, scheduled. [employer] messages indicate insurance denial. Provider and vascular [...] to see pain management Dr. Yang at [facility]. PCP referred her to pain management, [...] Level: 1 - N/A documented in this encounterMemorial Health [facility]02-04-[address] Mercado [facility] December 30, 2022 3:43pm Note Date/Time December 30, 2022 3 :39pm [facility] Medical Records Department [address] [place] [address] Emergency Department Summary 12/30/22 MR#: [id number] Acct: [id number] Name: ANNE CHUNG Rep #:[id number] : 1985 37 From: Grant Mercado MD PCP: Dr. Yassine Link MD Status:R EG ER Location: ED HPI History of Present Illness Chief Complaint: Upper Extremity Injury Detail of Chief Complaint: Left upper shoulder region pain Informant: patient Occured/Mechanism Comment: Postop complications due to thoracic outlet syndrome surgery 2 years ago. Onset/Context/Timing Onset: - (2 years) Timing: Continuous and Waxes and wanes Quality of Pain: Aching Location: Left shoulder region with tingling in the left upper extremity Current Severity: Moderate Maximum Severity: Severe Worsened by: Use, palpation Relieved by: Nothing Associated Symptoms Associated Symptoms: Positive for Parasthesia; Negative for Weakness or Loss of Funtion Narrative Narrative: Patient is a 37-year-old woman with history of thoracic outlet syndrome who underwent surgery 2 years ago. She has had complications and is believed to have neurogenic thoracic outlet syndrome per office notes from outside facility. She is scheduled to see pain management later this month and MRI of her shoulder. Patient denies fever, chills night sweats. Patient denies respiratory or cardiac symptoms. Patient denies loss of use of her left upper extremity. She is on a weight restriction of 15 pounds for work. She is a smoker. There is nohistory of new trauma. Tetanus Immunization: Unknown Prior similar symptoms: Yes Recent Illness/Hospitalization: Yes PFSH PFS Medical History Anxiety Depression GERD (gastroesophageal reflux disease) H/O thoracic outlet syndrome IBS (irritable bowel syndrome) Left shoulder strain Thoracic outlet syndrome Home Medications albuterol sulfate 90 mcg/actuation aerosol inhaler 2 puff inhalation Q4H PRN PRNAsthma ##0 05/03/16 [Rx Last Taken 11/17/18] pantoprazole 20 mg tablet,delayed release 20 mg PO BID 04/26/20 [History Last Taken Unknown] naproxen 500 mg tablet 500 mg PO BID #14 tabs 03/09/22 [Rx Last Taken Unknown] paroxetine HCl 20 mg tablet 20 tab PO DAILY 05/30/22 [History Last Taken Unknown] phenazopyridine 200 mg tablet (Pyridium) 200 mg PO TID #10 tabs 07/27/22 [Rx Last Taken Unknown] cranberry fruit concentrate 250 mg chewable tablet (Azo Cranberry) 250 mg PO BID08/03/22 [History Last Taken Unknown] imiquimod 5 % topical cream packet 1 applic topical .COMPLEX #12 ea 08/03/22 [Rx Last Taken Unknown] dibucaine 1 % rectal ointment 1 applic NE TID PRN hemorrhoids #56 grams 09/16/22[Rx Last Taken Unknown] docusate sodium 100 mg capsule (Colace) 100 mg PO BID #60 caps 09/16/22 [Rx Last Taken Unknown] hydrocortisone 2.5 % topical cream with perineal applicator (Anusol-HC) 1 applicPR BID PRN hemorrhoids #30 grams 09/16/22 [Rx Last Taken Unknown] oxycodone-acetaminophen 5 mg-325 mg tablet (Percocet) 1 tab PO Q6H PRN pain 3 days #10 tabs 09/26/22 [Rx Last Taken Unknown] cyclobenzaprine 10 mg tablet 10 mg PO TID PRN muscle spasm #20 tabs 11/30/22 [Rx Last Taken Unknown] prednisone 10 mg tablet 10 mg PO DIRECTED #30 tabs 11/30/22 [Rx Last Taken Unknown] hydrocodone-acetaminophen 5-325mg 5mg-325mg 1 tab PO Q6H PRN PRN Pain 3 days #10TABLETS 12/30/22 [Rx Last Taken Unknown] Allergy/AdvReac Type Severity Reaction Status Date / Time benzonatate Allergy Rash Verified 12/30/22 14:52 [From Tessalon Perles] diazepam [From Valium] Allergy Hives Verified 12/30/22 14:52 morphine Allergy Itching Verified 12/30/22 14:52 Penicillins Allergy Hives Verified 12/30/22 14:52 venom-honey bee Allergy Hives Verified 12/30/22 14:52 [bee venom (honey bee)] Family History Father Heart disease Hypertension Myocardial infarction Mother Cancer lung, throat and Lupus Surgical History History of esophagogastroduodenoscopy (EGD) History of left oophorectomy S/P breast biopsy S/P colonoscopy Status post hysterectomy Social History household members: none Smoking Status: Current every day smoker tobacco type: cigarettes alcohol intake: current alcohol intake frequency: holidays/special occasions only substance use type: marijuana caffeine: Yes what type of physical activity do you participate in: none seatbelt use: sometimes do you feel safe at home: Yes additional social history: Boyfriend-Sha- Works at [employer] Patient works at [employer] ED Constitutional Constitutional ED: Denies chills, fever(s), subjective, sweats or weight loss Eyes Eyes: Denies blurry vision, change in vision or diplopia ENT ENT ED: Denies ear pain, rhinorrhea or sore throat Cardiovascular Cardiovascular: Denies chest pain, orthopnea, palpitations, paroxysmal nocturnaldyspnea or racing heartbeat Respiratory/Chest Respiratory/Chest: Denies cough, dyspnea, dyspnea on exertion, orthopnea, paroxysmal nocturnal dyspnea or sputum Gastrointestinal Gastrointestinal: Reports nausea and vomiting Neurologic Neurologic: Reports paresthesias LUE; Denies headache(s) or weakness Hematologic/Lymphatic Hematologic/Lymphatic: Denies easy bleeding, easy bruising or lymphadenopathy EXAM Physical Exam Const Vital Signs: 12/30/22 14:52 Temperature 97 F L Temperature Source Temporal Pulse Rate 83 Respiratory Rate 14 Blood Pressure 120/70 Blood Pressure Mean 86 Pulse Ox 100 Oxygen Delivery Method Room Air Positive well nourished, well developed and obese General Appearance ED: well developed; Negative for cyanotic or diaphoretic Nutritional Appearance: obese HEENT Reports moist mucous membranes HEENT Narrative: Ears normal. Nares patent. Uvula midline. No deviation with protrusion. Posterior pharynx is normal. normocephalic and atraumatic Eyes PERRL and EOMs intact bilaterally Neck full ROM and supple Neck Narrative: There is pain palpation over the left paracervical and trapezius area as well asdeltoid region. She also complains of pain in the supraclavicular area. There is a well-healed noted. Chest Wall inspection of chest normal and palpation of chest normal Resp normal respiratory effort and clear to auscultation bilaterally Cardio regular rate and regular rhythm Back/Spine no CVA tenderness Cervical Spine: Negative for cervical spine tenderness and other Other Details: Previously mentioned under the neck portion of the chart. Thoracic Spine / Upper Back: Negative for thoracic spinal tenderness Lumbar Spine / Lower Back: Negative for lumbar spinal tenderness Extremity normal to inspection Extremity Narrative: Axillary, median, radial and ulnar function intact. Bicep, brachialis and tricep reflex are 2-3+ and symmetric. Radial pulses 2+ and symmetric. Negativedrop test. She is able to AB duct past 90 degrees. She complains of pain past 90 degrees. Neuro oriented x3, CN's II-XII intact bilaterally, moves all extremities, no focal motor deficits and no sensory deficits noted Neuro Narrative: Reflex portion of the neurologic exam documented under the extremity portion of the chart Sensorium / Orientation: alert Psych Psych Narrative: Patient has an exaggerated response to tactile stimulus. Mood & Affect: Negative for anxious or tearful Skin General Skin Exam: Negative for petechiae Lesions: no lesions Rashes: no rashes Trauma: Negative for abrasion MDM MDM MDM Narrative Medical decision making narrative: Patient with chronic shoulder pain. Patient is scheduled for outpatient MRI andreferral to pain management, Dr. Yang. Outside records were reviewed. Thereis no indication for radiologic imaging i.e. plain x-ray, CAT scan and as previously mentioned patient is scheduled for MRI because of concern for neurogenic thoracic outlet syndrome complications as a result of corrective surgery. Presently there is no neurovascular findings. Will treat patient's pain and discharged with short course of pain management. She is presently on Lyrica, prednisone, NSAIDs and muscle relaxant. She was instructed to use ice. Discharge Plan Triage Chief Complaint: Upper Extremity Injury ED Provider: Grant Mercado Dx/Rx/DC Orders Clinical Impression: Chronic pain in left shoulder, History of thoracic outlet syndrome, Depression Instructions: ED Chronic Pain Prescriptions: New hydrocodone-acetaminophen [hydrocodone-acetaminophen] 5-325 mg tablet 1 tab PO Q6H PRN PRN (Reason: Pain) 3 Days Qty: 10 0RF No Action Azo Cranberry 250 mg tablet,chewable 250 mg PO BID imiquimod 5 % cream in packet 1 applic topical .COMPLEX Qty: 12 1RF Rx Instructions: 1 applic topical 3 times per week up to 16 weeks; cyclobenzaprine 10 mg tablet 10 mg PO TID PRN (Reason: muscle spasm) Qty: 20 0RF prednisone 10 mg tablet 10 mg PO DIRECTED Qty: 30 0RF Rx Instructions: 4 tablets daily x3 days, then 3 tablets daily x3 days, then 2 tablets daily x3 days, then 1 tablets daily x3 days albuterol sulfate 1 INHALER inhaler 2 puff INHALATION Q4H PRN PRN (Reason: Asthma) Qty: 0 0RF Label Comments: asthma pantoprazole 20 MG tablet 20 mg PO BID naproxen 500 MG tablet 500 mg PO BID Qty: 14 0RF paroxetine HCl 20 mg tablet 20 tab PO DAILY phenazopyridine [Pyridium] 200 mg tablet 200 mg PO TID Qty: 10 0RF docusate sodium [Colace] 100 mg capsule 100 mg PO BID Qty: 60 0RF hydrocortisone [Anusol-HC] 2.5 % cream with perineal applicator 1 applic NE BID PRN (Reason: hemorrhoids) Qty: 30 0RF dibucaine 1 % ointment 1 applic NE TID PRN (Reason: hemorrhoids) Qty: 56 0RF oxycodone-acetaminophen [Percocet] 5-325 mg tablet 1 tab PO Q6H PRN (Reason: pain) 3 Days Qty: 10 0RF Primary Care Provider: Yassine Link Referrals: Adonis Bar MD [Med Staff - Active Staff] - Keep [facility] appointment Yassine Link MD [Primary Care Provider] - Keep [facility] appointment Disposition Disposition: Home, Self Care What to do if you have Problems For any increased pain, shortness of breath, bleeding, nausea or vomiting, chestpain, or any unexpected problems, contact your Primary Care Provider. Call [facility] ([phone]) or report to the closest Emergency Room. Call 911 if necessary. 12/30/22 1543 <Electronically signed by Grant Mercado MD> Cosigner Signature (if applicable): CC: Dr. Yassine Link MD ~ Signed [facility] Work Phone: 1(496) 212-280202-03-2023 Miscellaneous Notes* Telephone Encounter - Carol Rainey APRN.YORDY - 12/29/2022 11:29 AM EST Peer to Peer requested for: [id number] [place] [id number] [place] CERVICAL SPINE WO IVCON Spoke with At [facility] - requested further information. Called pt and documented necessary information in telephone encounter from 12/29/22. Called insurance company back - requested us to fax this documentation for further review. Fax information faxed to . Received confirmation receipt from transmission report. Carol Rainey APRN.CNP documented in this encounterMemorial [facility]02-03-2023 Miscellaneous Notes* Telephone Encounter - Carol Rainey APRN.CNP - 12/29/2022 9:55 AM EST Called [employer] company at 9:20am today 12/29/22 for peer to peer for MRI of c- spine and left shoulder. Insurance company said they [...] past 6 months since she works at [email or web address] and the job requires lifting. Pt to f/u with pain management - next appointment is 01/16/23. Pt states pain management would like MRIs before considering invasive treatments. No vascular surgery plans at this time. I will contact [employer] again to discuss this information to seek approval for MRIs. Carol Rainey APRN.CNP documented in this encounterMemorial Health System [facility]02-02-2023 History of Present illness Narrative* Yassine Link MD - 12/28/2022 12:13 PM EST This note was created using NoteWriter. Subjective [...] was scheduled to consult with Dr. Edouard aBr for pain management. I declined to refill [...] done. Yassine Link MD documented in this encounterMemorial Health System [facility]02-02-2023 History of Present illness Narrative* Hao Mcclellan, PT - 12/28/2022 9:12 AM EST Episode Visit Count: 1 Therapist That Will [...] posture, strength , and symptom management. PROMIS (Patient- Reported Outcomes Measurement Information System) scores werereviewed and physical function domain identified as a rehabilitation concern. Prognosis for therapyis Good due to: current objective clinical presentation . Pt demo's positive empty can test on the L and painful arc sign. She will benefit from skilled therapy services to meet the goals establishedfor this plan of care as noted below. Goals for Episode of Care: created on 12/28/22 through 02/22/23 Pt will demo 5/5 strength via MMT without pain of the L shoulder for ease of work duties [place] in home exercise program. Increase ROM of the L shoulder to WNL for reaching overhead Patient Goals: Decrease pain Planned Interventions, Frequency, and Duration: Current Frequency: 1x/week Duration: 4 weeks Total Number of Visits Planned: 4 Planned Treatment Interventions: Therapeutic exercise (10056), Neuromuscular re- education (01011), Manual therapy (53816), Self-retirement management (50969), Patient/Family/Caregiver Education PLAN FOR NEXT VISIT: Supraspinatus [...] Heat helps. Some swelling at night in theL hand. Patient Goals: Decrease pain Functional Limitations: sleeping, reaching overhead, lifting Prior Level of Function: Independent without limitations Relevant History Preferred Language: Bangladeshi Intake Information: Prescription present Previous Treatment: Physical [...] 44 Hao Mcclellan PT documented in this encounterMemorial Health System [facility]01-25-2023 Miscellaneous Notes* Telephone Encounter - Leticia Persaud LPN - 12/20/2022 10:40 AM EST Patient has been identified by name and [...] you. Leticia Persaud LPN documented in this encounterMemorial Health System [facility]01-16-2023 History of Present illness Narrative* German Pires APRN.SHANNEN - 12/11/2022 3:00 PM EST Video visit. In [place]. Patient only. Consents to visit. SUBJECTIVE: HEPATITIS [...] lump. She reports being seen by her HEALTHCARE RECEPTIONIST Dr. Cunningham for folliculitis which she reports [...] appointment with pain management, Dr. Yang at [facility] She will let us know if not feeling improved. German Pires APRN.CNS 20 min in visit Medical Decision Making: Problems: Moderate: 1+ chronic illnesses with change Risk: Moderate: Drug management Medical Decision Making Level: 4 - Moderate documented in this encounterMemorial Health System [facility]01-13-2023 History of Present illness Narrative* Rosas Baugh MD - 12/08/2022 12:00 AM EST [facility] General Surgery Rosas Baugh M.D., F.A.C.S. Gabino Torres [facility] [address] [id number] NAME: ANNE KUHN [facility] NO: [id number] DATE OF SERVICE: 12/08/[address]22 PLACE OF ENCOUNTER: [facility] Established patient recently hospitalized and discharged from acute diverticulitis. She was there for three days, discharged on 11/07/2022. She has done well at home. Enjoys good health. She has beenlosing weight voluntarily. She just finished her second course of antibiotics. She was admitted twice for this. No tenderness or pain at this time. She is having normal movements without blood. No abdominal tenderness on examination. Flat, soft abdomen. This was her only episodes of diverticulitis,none prior. Colonoscopy was a year ago. Psyllium daily supplementation is advised. MiraLAX to avoidconstipation is advised. Dietary habits are emphasized. Call or return as needed. May follow up with GI for further counseling. If continues to have flare-ups of diverticulitis, may benefit from laparoscopic sigmoid colectomy. This is not yet recommended, however. The patient knows to call or come back if she has any ongoing symptoms at any time. ROSAS BAUGH M.D. BB/079 Audio #: [id number] Date Dictated: 12/08/2022 11:32:05 Date Typed: 12/08/2022 14:08:06 Date Revised: documented in this encounterMemorial Health System [facility]01-11-2023 Miscellaneous Notes* Telephone Encounter - Levy Luu Ma - 12/06/2022 9:30 AM EST Notified via [employer]. * Telephone Encounter - Birgit Velazquez LPN - 12/06/2022 9:24 AM EST Left a message for pt to call the office and ask to speak to a nurse. Birgit Velazquez LPN * Telephone Encounter - Yassine Link MD - 12/06/2022 8:49 AM EST I already gave her Percocet to last [...] Bar. She can take Lyrica at bedtime. * Telephone Encounter - Carol Yarbrough Pss - 12/05/2022 2:29 PM EST Anne is saying the Lyrica is making her dizzy and tired and she is unable to take it during the day. She would like to know if the Percocet can be called into the [facility]. She has an appointment with the thoracic brooke on Sunday. * Telephone Encounter - Levy Luu Ma - 12/04/2022 3:02 PM EST TERESE: 12/01/2022 Last refill: 12/01/2022 QTY: 12 [...] pharmacy. Levy Luu Ma documented in this encounterMemorial Health System [facility]01-11-2023 Miscellaneous Notes* Telephone Encounter - Yassine Link MD - 12/06/2022 8:44 AM EST Patient seen. documented in this encounterMemorial Health System [facility]01-07-2023 Miscellaneous Notes* Telephone Encounter - Yassine Link MD - 12/02/2022 1:10 PM EST See office visit. * Telephone Encounter - Fabiana Mcmahan RN - 12/01/2022 10:29 AM EST Patient calls and reports that she went to the ER today to get something for pain. Patient reports that ER would not give her anything and told her that she needs to contact PCP for this. Patient asking about the status of the request below. Patient scheduled appointment with provider to discuss pain medications today. Fabiana Mcmahan RN * Telephone Encounter - Bhumika Gallagher RN - 11/30/2022 9:02 AM EST Patient reports she is having left shoulder [...] 11-22-22. Please advise patient. documented in this encounterMemorial Health System [facility]01-06-2023 History of Present illness Narrative* Yassine Link MD - 12/01/2022 4:35 PM EST This note was created using JavaJobs. Subjective Anne Chung is a 37 year old female here for chronic pain, not well controlled. She has resistedrevisiting with pain management since she was simply [...] to refer her to a different [facility] spray tender [facility]. Review of Systems Constitutional: Negative. Respiratory: Negative. [...] swelling, deformity, effusion or crepitus. Decreased range ofmotion. Normal strength. Cervical back: Tenderness present. Neurological: [...] Bar. Yassine Link MD documented in this encounterMemorial Health System [facility] Hospital12-15-2022 History of Present illness Narrative* Yassine Link MD - 11/09/2022 10:20 AM EST DISTANCE HEALTH VISIT Anne Chung's identity was confirmed. The limitations of telemedicine were reviewed, and verbal consent was obtained for this encounter. This encounter is not related to previous similar encounterwithin the past 7 days. No face to [...] to the holidays, job issues, and significant other'shealth issues. ACTIVE PROBLEM LIST Asthma Esophageal Reflux [...] Yassine Link MD S documented in this encounterMemorial Health System [facility] Hospital12-09-2022 Instructions* Patient Instructions* German Pires APRN.CNS - 11/03/2022 10:57 AM EST Keep area of concern clean and dry. Wash with soap and water daily. Avoid clothing over the area ofconcern. Follow-up with your HEALTHCARE RECEPTIONIST if not feeling improved. documented in this encounterMemorial Health System [facility] Hospital12-09-2022 History of Present illness Narrative* German Pires APRN.CNS - 11/03/2022 10:40 AM EST SUBJECTIVE: HEPATITIS B(1 of 3 - 3-dose [...] lump. She reports being seen by her HEALTHCARE RECEPTIONIST Dr. Cunningham for folliculitis which she reports [...] Pain medication x3 days Further follow-up with HEALTHCARE RECEPTIONIST and PCP advised. ER for any severe or concerning symptoms - OXYCODONE-ACETAMINOPHEN 5 MG-325 MG TABLET - SULFAMETHOXAZOLE 800 MG-TRIMETHOPRIM 160 MG TABLET German Pires APRN.SHANNEN Medical Decision Making: Problems: Low: Acute, uncomplicated illness or injury Risk: Moderate: Drug management Medical Decision Making Level: 3 - Low documented in this encounterMemorial Health System [facility]11-28-2022 Miscellaneous Notes* Telephone Encounter - Shelbie Bass LPN - 10/23/2022 9:58 AM EST Last office visit: 10/05/22 Next appointment scheduled: 11/07/22 Patient phones requesting refills as follows: Requested Prescriptions Pending Prescriptions Disp Refills lidocaine (LIDODERM) 5 % 10 Patch 3 Sig: Apply 1 Patch as directed every 24 hours. to affected area. Remove patch after 12 hours. Please review and advise. Shelbie Bass LPN documented in this encounterMemorial Health System [facility] Hospital11-10-2022 Miscellaneous Notes* Telephone Encounter - Yassine Likn MD - 10/05/2022 8:00 PM EST Patient's request for medication is as follows Requested Prescriptions Signed Prescriptions Disp Refills oxyCODONE-acetaminophen (PERCOCET) 5-325 mg tablet 12 tablet 0 Sig: Take 1 tablet by mouth every 6 hours as needed for pain for up to 3 days. Authorizing Provider: YASSINE LINK Order entered - please phone pharmacy and notify patient. Yassine Link MD * Telephone Encounter - Aliyah Trimble RN - 10/05/2022 7:26 PM EST Pt called in checking on pain meds. Called and talked with providers nurse and she will ask him about medication. * Telephone Encounter - Aliyah Trimble RN - 10/05/2022 1:29 PM EST Hipolito from the [facility] reports they are out of this medication right now. States Pt is asking if provider could send it to [facility] in [place]. Patient has been identified by name and [...] you. Aliyah Trimble RN documented in this encounterMemorial Health System [facility] Hospital11-10-2022 Instructions* Patient Instructions* Yassine Link MD - 10/05/2022 12:24 PM EST SEE GYNECOLOGY FOR EVALUATION AND TREATMENT. PERCOCET IS REFILLED THIS LAST TIME. documented in this encounterMemorial Health System [facility]11-10-2022 History of Present illness Narrative* Yassine Link MD - 10/05/2022 12:07 PM EST This note was created using NoteWriter. Subjective Anne Chung is a 36 year old female. She continued with lower abdominal and right lower quadrant pain, moderately severe for almost 2 weeks now, aggravated by movement, and associated with nausea. Evaluation in the ER 09/26 showed no acute findings. A cyst was noted on the right ovary, and it was suggested she see her midwife about this. She had an appointment with [...] right lower quadrant and suprapubic area. There isno guarding or rebound. Neurological: Mental Status: She [...] clear. There were no acute findings in thetests done in the ED. It is not clear if her midwife will recommend surgery or if the pain is coming from this ovarian cyst. Shared medical decision making was done. Opioid has risks, and we agreed I am refilling this absolutely for the last time. Yassine Link MD documented in this encounterMemorial Health System [facility] Hospital11-10-2022 Miscellaneous Notes* Telephone Encounter - Evelin Posey RN - 10/05/2022 8:18 AM EST Patient returned call and given update below. Castillo Posey RN * Telephone Encounter - Birgit Velazquez LPN - 10/04/2022 3:14 PM EST Left a message for pt to call the office and ask to speak to a nurse. Birgit Velazquez LPN * Telephone Encounter - Beatrice Camargo APRN.CNP - 10/04/2022 2:[address] Link's response in 10/02 phone [...] time only in addition to ER prescription. Pleaseinform the patient. Beatrice Camargo APRN.CNP * Telephone Encounter - Leticia Persaud LPN - 10/04/2022 12:19 PM EST Patient has been identified by name and [...] you. Leticia Persaud LPN documented in this encounterMemorial Health System [facility]11-09-2022 Miscellaneous Notes* Telephone Encounter - Leticia Persaud LPN - 10/04/2022 12:20 PM EST Patient has been identified by name and [...] you. Leticia Persaud LPN documented in this encounterMemorial Health System [facility]11-01-2022 Instructions* Patient Instructions* Yassine Link MD - 09/26/2022 11:04 AM EDT I recommend ER evaluation. documented in this encounterMemorial Health System [facility] Hospital11-01-2022 History of Present illness Narrative* Yassine Link MD - 09/26/2022 10:55 AM EDT This note was created using NoteWriter. Subjective Anne Chung is a 36 year old female. She was recently in the ED for bleeding hemorrhoids, and saw surgery for follow up. Hemorrhoids resolved. 3 days ago, she developed progressively severe lower abdominal pain midline and and somewhat to theleft, 8/10 in severity, aggravated by movement, walking, [...] recommendations. Yassine Link MD documented in this encounterMemorial Health System [facility] Hospital10-06-2022 Instructions* Patient Instructions* Izabela Stephens APRN.CNP - 08/31/2022 9:31 AM EDT Activity as tolerated Use Ice and/or heat as tolerated as needed documented in this encounterMemorial Health System [facility] Hospital10-06-2022 History of Present illness Narrative* Minoo Ortiz MA - 08/31/2022 9:04 AM EDT Review of Systems Constitutional: Negative for activity [...] suicidal ideas. The patient is not nervous/anxious. * Izabela Stephens APRN.CNP - 08/31/2022 9:00 AM EDT [facility] Today's Date: 08/31/2022 Last Visit: N/A [...] onset of symptoms was gradual onset and waswithout associated trauma. Reports started out as numbness [...] stenosis in the cervical and thoracic spine. Non Emergency Services [facility] Transcribe Date/Time: Feb 20 2018 9:51A Dictated by : LUISITO SALGADO MD This examination was interpreted and the report reviewed and electronically signed by: LUISITO SALGADO MD on Feb 20 2018 9:57AM EST Recent labs: Creatinine Date Value Ref Range Status 01/17/2022 0.72 0.58 - 0.96 mg/dL Final Compliance: PDMP website checked and validated. All prescriptions have been APPROPRIATELY filled. No suspiciousactivity was identified. 08/31/2022 by Izabela Stephens APRN.APPLICATIONS SYSTEMS ENGINEER Risk Assessment: BLACK-7: BLACK - 7 SCORES [...] Abuse: 0 - No Psychological Disease: Yes ADD/ADHD/OCD/Bipolar/Schizophrenia: No Depression: 1 - Yes Risk Total: [...] with significant past medical history for asthma, tobaccodisorder, GERD, OAB, anxiety, depression hx of thoracic [...] 08/31/2022 Completed and reviewed, HIGH risk Functional Pentecostalism: Physical Therapy (Land-based) Additional Studies: XR Cervical [...] decision making from today's date. Izabela Stephens APRN.APPLICATIONS SYSTEMS ENGINEER Pain Management [facility] documented in this encounterMemorial Health System [facility]09-02-2022 History of Present illness Narrative* Yassine Link MD - 07/28/2022 4:51 PM EDT This note was created using Witsbitsriter. Subjective Anne Chung is a 36 year old female who has been dealing with urinary frequency, urgency, and dysuria for almost one month. She went to see Dr. Tiffany Vale who started her on oxybutynin ER 10 mgdaily with no improvement. She was not diagnosed [...] Wt 77.1 kg (170 lb) LMP 05/16/2015 JcP376% BMI 33.20 kg/m Physical Exam Constitutional: General: She is not in acute distress. Appearance: She is not ill-appearing. Pulmonary: Effort: Pulmonary effort is normal. Abdominal: Palpations: Abdomen is soft. Tenderness: There is abdominal tenderness in the suprapubic area. There is no right CVA tenderness,left CVA tenderness, guarding or rebound. Neurological: Mental Status: She is alert. ER report reviewed. Urine C&S preliminary from [facility] ER. Assessment and Plan ASSESSMENT/PLAN: 1. [...] CAP Yassine Link MD documented in this encounterMemorial Health System [facility] Hospital09-02-2022 Miscellaneous Notes* Telephone Encounter - German Pires APRN.CNS - 07/28/2022 7:28 AM EDT noted, should let urology provider know of her symptoms. ER for severe or concerning symptoms * Telephone Encounter - Evelin Posey RN - 07/27/2022 4:18 PM EDT Protocol recommends see provider within 24 hours. Has appt with German Pries for tomorrow morning. Patient agreeable to ER [...] as above 6. :no Protocols used: Urinary [id number] documented in this encounterMemorial Health System [facility] Hospital08-19-2022 Miscellaneous Notes* Telephone Encounter - Evelin Maynard - 07/14/2022 9:29 AM EDT 1st attempt left message to return call to [phone] Ontiveros schedulers will assist in arranging this appointment. Sent e-mail also to Dr Ontiveros's schedulers and my chart message to the patient. * Telephone Encounter - Leticia Persaud LPN - 07/08/2022 10:00 AM EDT Sending to PSS to schedule. Leticia Persaud LPN * Telephone Encounter - Yassine Link MD - 07/08/2022 9:57 AM EDT Isabel Pedroza ordered pain management consult on June 19. Please schedule 1st available or cancellation list for Dr. Brandon Ontiveros. documented in this encounterMemorial Health System [facility] Hospital08-08-2022 Miscellaneous Notes* Telephone Encounter - Levy Luu Ma - 07/03/2022 2:18 PM EDT TERESE: 06/19/2022 Last refill: 05/04/2022 QTY: 10 Refills: 3 Patient's request for medication is as follows: Pending Prescriptions Disp Refills LIDOCAINE 5 % TOPICAL PATCH 10 Patch 3 Sig: Apply 1 Patch as directed every 24 hours. to affected area. Remove patch after 12 hours. EUGENIA: No Please approve the above prescription(s) to electronically send to pharmacy. Levy Luu Ma documented in this encounterMemorial Health System [facility] Hospital08-02-2022 Miscellaneous Notes* Telephone Encounter - German Pires APRN.SHANNEN - 06/27/2022 4:43 PM EDT Please schedule her with Dr Ontiveros. Rx sent. PDMP website checked and validated. All prescriptions have been APPROPRIATELY filled. No suspiciousactivity was identified. 06/27/2022 by German Pires APRN.CORE MOUNTER Please send any future requests for refills of this to PCP as I do not believe he wanted to prescribe this chronically for her; he can decide in foloow up. * Telephone Encounter - Leticia Persaud LPN - 06/27/2022 3:21 PM EDT Patient has been identified by name and [...] Not applicable Please advise. Thank you. Leticia Hung AN documented in this encounterMemorial Health System Selby [facility] Hospital07-26-2022 History of Present illness Narrative* Carol Chris - 06/20/2022 4:19 PM EDT POPULATION HEALTH NAVIGATION OUTREACH Action/[facility] [place] Support: Called pt to schedule an appt in Pain Management. m for pt to call [phone] for scheduling. Pt identified by name and : NO Outreach Outcome/Action Unable to reach patient: Left message Did you use a PCP flex slot to schedule this appointment? N/A Reason for Outreach Care Gap or Scheduling/Wellness visits Payer: Payor: [employer] / [facility] / Product Type: Medicaid / Care Gap Reviewed:: Specialty Scheduling Reminder: Reminder note to check Health Maintenance for items below Health Maintenance items due: There are no preventive care reminders to display for this patient. Message Sent to Practice: No Navigation Signature: Carol Perez June 20, 2022 4:19 PM documented in this encounterMemorial Health System [facility] Hospital07-26-2022 Miscellaneous Notes* Telephone Encounter - Lindsey Borja - 06/20/2022 3:25 PM EDT Left vm for pt with appt info. Lindsey Coley PSS documented in this encounterMemorial Health System [facility] Hospital07-25-2022 Miscellaneous Notes* Telephone Encounter - Lolita Cotton - 06/19/2022 3:47 PM EDT Left brief message on cell voicemail stating to call the office to schedule New patient appointmentwith Dr. Ontiveros or Izabela Stephens in [place]. Lolita Cotton * Telephone Encounter - Kasia Bermudez - 06/19/2022 12:09 PM EDT Please assist with scheduling. Thanks Kasia Bermudez PSS documented in this encounterMemorial Health System [facility]by [facility] Hospital07-25-2022 History of Present illness Narrative* German Pires APRN.CORE MOUNTER - 06/19/2022 11:40 AM EDT SUBJECTIVE: There are no preventive care reminders [...] provider, Dr Ontiveros or preferred German Pires APRN.CORE MOUNTER PDMP website checked and validated. All prescriptions have been APPROPRIATELY filled. No suspiciousactivity was identified. 06/19/2022 by German Pires APRN.CORE MOUNTER Medical Decision Making: Problems: Moderate: 1+ chronic illnesses with change Risk: Moderate: Drug management Medical Decision Making Level: 4 - Moderate documented in this encounterMemorial Health System [facility] Hospital06-28-2022 History of Present illness Narrative* Yassine Link MD - 05/23/2022 1:01 PM EDT This note was created using [employer]. Subjective Anne Chung is a 36 year old female. Her chronic underlying anxiety flared up 3-4 weeks ago. She3 anniversaries this month, and she was reliving that stress. She had panic, insomnia, and depression. She denied suicide ideations. 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 Review of Systems Constitutional: Negative. Negative for [...] and side effects. Limit use. Not for longshore equipment operator use. - PAROXETINE 20 MG TABLET. Take one(1) tablet daily. Discussed medication dosage, usage, goals of therapy, and side effects. She had taken this in the past. Patient contracted for safety. - CONSULT TO [facility] Yassine Link MD documented [facility] encounter[facility] Miscellaneous Notes* Telephone Encounter - Birgit Velazquez LPN - 05/10/2022 1:41 PM EDT Spoke with pt and information listed below given. Pt verbalizes understanding. Birgit Velazquez LPN * Telephone Encounter - Birgit Velazquez LPN - 05/10/2022 1:21 PM EDT Left a message for pt to call the office and ask to speak to a nurse. Birgit Velazquez LPN * Telephone Encounter - Yassine Link MD - 05/10/2022 1:04 PM EDT Refused Prescriptions Disp Refills oxyCODONE IR (ROXICODONE) 5 mg immediate release tablet 15 tablet 0 Sig: Take 1 tablet by mouth every 8 hours as needed for pain for up to 7 days. BUBBA Class: C-II EUGENIA: No Refused By: YASSINE LINK Reason for Refusal: A Refill not appropriate Yassine Link MD * Telephone Encounter - Leticia Persaud LPN - 05/09/2022 12:37 PM EDT Patient has been identified by name and [...] you. Leticia Persaud LPN documented in this encounterMem[facility]22 History of Present illness Narrative* Yassine Link MD - 05/04/2022 1:56 PM EDT This note was created using [employer]. Subjective Anne Chung is a 36 year [...] (174 lb 9.6 oz) LMP 05/16/2015 BMI 34.10kg/m Physical Exam Constitutional: General: She is not [...] declined. Yassine Link MD documented in this encounterMem[facility]05-31-[facility]22 Miscellaneous Notes* Telephone Encounter - Letiica Persaud LPN - 04/25/2022 1:54 PM EDT Patient has been identified by name and [...] you. Leticia Persaud LPN documented in this encounterMem[facility] Miscellaneous Notes* Telephone Encounter - Nicole Sanches RN - 04/06/2022 3:06 PM EDT Patient has been identified by name and [...] you. Nicole Sanches RN documented in this encounterMem[facility]04-01-[facility] History of Present illness Narrative* German Pires APRN.CORE MOUNTER - 02/24/2022 10:29 AM EDT SUBJECTIVE: There are no preventive care reminders to display for this patient. HPI Anne Chung is a 36 year old female. H signficant for ACTIVE PROBLEM LIST Asthma Esophageal Reflux Tobacco Use Disorder Thoracic Outlet Syndrome Tos (Thoracic Outlet Syndrome) She presents for posterior right shoulder and right sided and mid upper back pain present for about2 weeks. She notes no injury. No heavy lifting or other causative factor known. She notes treatments at home without help, Tylenol ibuprofen ice and heat. She notes pain with range of motion of her shoulder, raising arm and reaching behind her back. No prior occurrence like this. No numbness or tingling. 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 Notes she is doing well [...] the right shoulder, no numbness or tingling, deck engineer preserved normal pulse Skin: General: Skin is [...] Making Level: 4 - Moderate German Pires APRN.CORE MOUNTER documented in this encounterMemorial [facility]11-[facility] History of Past illness Narrative* Problem [...] of this encounter (statuses as of 05/23/2022) [facility] of Past illness Narrative* Problem [...] of this encounter (statuses as of 05/23/2022) [facility] of Past illness Narrative* Problem [...] of this encounter (statuses as of 06/19/2022) [facility] of Past illness Narrative* Problem [...] of this encounter (statuses as of 06/19/2022) [facility] of Past illness Narrative* Problem [...] of this encounter (statuses as of 06/20/2022) [facility] of Past illness Narrative* Problem [...] of this encounter (statuses as of 06/20/2022) [facility] of Past illness Narrative* Problem [...] of this encounter (statuses as of 06/27/2022) [facility] illness Narrative* Problem [...] of this encounter (statuses as of 06/28/2022) [facility] illness Narrative* Problem [...] of this encounter (statuses as of 07/04/2022) [facility] Narrative* Problem [...] of this encounter (statuses as of 07/28/2022) [facility] illness Narrative* Problem [...] of this encounter (statuses as of 08/01/2022) [facility] Narrative* Problem [...] of this encounter (statuses as of 08/09/2022) [facility] Narrative* Problem [...] of this encounter (statuses as of 08/31/2022) [facility] Narrative* Problem [...] of this encounter (statuses as of 09/26/2022) [facility] Narrative* Problem [...] of this encounter (statuses as of 10/04/2022) [facility] Narrative* Problem [...] of this encounter (statuses as of 10/05/2022) [facility] illness Narrative* Problem [...] of this encounter (statuses as of 10/05/2022) [facility] Narrative* Problem [...] of this encounter (statuses as of 10/06/2022) [facility] Narrative* Problem [...] of this encounter (statuses as of 10/23/2022) [facility] illness Narrative* Problem [...] of this encounter (statuses as of 11/03/2022) [facility] Narrative* Problem [...] pain, epigastric 10/26/200903/15 Abdominal pain, generalized 10/05/2009 020 06/2011 Dysuria 05/21/2009 01/03/2011 Lumbago 03/09/2008 04/18/2018 Pruritus of genital organs 11/21/200601/03 Bipolar disorder, unspecified 07/26/2006 documented as of this encounter (statuses as of 11/09/2022) [facility] Narrative* Problem [...] of this encounter (statuses as of 12/02/2022) [facility] Narrative* Problem [...] of this encounter (statuses as of 12/03/2022) [facility] Narrative* Problem [...] of this encounter (statuses as of 12/06/2022) [facility] Narrative* Problem [...] of this encounter (statuses as of 12/06/2022) [facility] Narrative* Problem [...] of this encounter (statuses as of 12/06/2022) [facility] Narrative* Problem [...] of this encounter (statuses as of 12/08/2022) [facility] Narrative* Problem [...] of this encounter (statuses as of 12/11/2022) [facility] Narrative* Problem [...] of this encounter (statuses as of 12/25/2022) [facility] Narrative* Problem [...] of this encounter (statuses as of 12/28/2022) [facility] Narrative* Problem [...] of this encounter (statuses as of 12/28/2022) [facility] Narrative* Problem [...] of this encounter (statuses as of 12/29/2022) [facility] Narrative* Problem [...] of this encounter (statuses as of 12/29/2022) [facility] Narrative* Problem [...] of this encounter (statuses as of 01/29/2023) [facility] Narrative* Problem [...] of this encounter (statuses as of 02/07/2023) [facility] Narrative* Problem [...] of this encounter (statuses as of 02/20/2023) [facility] Narrative* Problem [...] of this encounter (statuses as of 02/20/2023) [facility] Narrative* Problem [...] of this encounter (statuses as of 02/23/2023) [facility] Narrative* Problem [...] of this encounter (statuses as of 03/13/2023) [facility] Narrative* Problem [...] of this encounter (statuses as of 04/06/2023) [facility] Narrative* Problem [...] of this encounter (statuses as of 05/29/2023) [facility] Narrative* Problem [...] of this encounter (statuses as of 06/02/2023) [facility] Narrative* Problem [...] of this encounter (statuses as of 07/10/2023) [facility] Narrative* Problem [...] of this encounter (statuses as of 09/21/2023) [facility] Narrative* Problem [...] of this encounter (statuses as of 10/01/2023) [facility] Narrative* Problem [...] of this encounter (statuses as of 10/02/2023) [facility] Narrative* Problem [...] of this encounter (statuses as of 10/03/2023) [facility] Narrative* Problem [...] of this encounter (statuses as of 12/23/2023) [facility] Narrative* Problem [...] of this encounter (statuses as of 12/29/2023) [facility] Narrative* Problem [...] as of this encounter (statuses as of 01/07/2024) [facility] Narrative* Problem [...] as of this encounter (statuses as of 01/10/2024) [facility] Narrative* Problem [...] as of this encounter (statuses as of 01/10/2024) [facility] Narrative* Problem [...] as of this encounter (statuses as of 01/17/2024) [facility] Narrative* Problem [...] as of this encounter (statuses as of 01/18/2024) [facility] Narrative* Problem [...] as of this encounter (statuses as of 02/25/2024) [facility] Narrative* Problem [...] as of this encounter (statuses as of 03/13/2024) [facility] Narrative* Problem [...] as of this encounter (statuses as of 03/14/2024) [facility] History of Present illness Narrative* Jaylene Beaulieu RT(R) - 06/13/2021 11:40 AM EDT Radiology Service Progress Note PATIENT NAME: Anne Chung DATE OF SERVICE: June 13, 2021 TIME: 11:44 AM PATIENT IDENTITY VERIFICATION COMPLETED USING TWO (2) IDENTIFIERS: Name and Date of confirmedby patient verbally. FALL SCREENING: Has the patient [...] IV DATA: Not applicable SIGNED BY: RT Fanny(R) June 13, 2021 11:44 AM documented in this encounterMem[facility] History of Present illness Narrative* Jaylene Beaulieu (Rt), Tech - 12/15/2020 12:00 PM EST Radiology Service Progress Note PATIENT NAME: Anne Chung DATE OF SERVICE: December 15, 2020 TIME: 12:11 PM PATIENT IDENTITY VERIFICATION COMPLETED USING TWO (2) IDENTIFIERS: Name and Date of confirmedby patient verbally. FALL SCREENING: Has the patient had 2 falls in the last year or 1 fall with injury or currently using an Ambulatory Assistive Device (Walker, Cane, Wheelchair, Crutches, etc.)? No PATIENT GENDER DATA: Female. status: : No status: NO. PATIENT RELEVANT IMPLANT DATA REVIEWED: Not Applicable RADIOLOGY DEPARTMENT: General X-ray: Exam(s) Completed: Lower Extremity X- Ray(s): Knee, AP / Lat / Tunne / Merchant Left and Wt. Bearing: PERIPHERAL IV DATA: Not applicable SIGNED BY: RT Fanny December 15, 2020 12:11 PM documented in this encounterMem[facility] History of Past illness Narrative* Problem [...] of this encounter (statuses as of 02/24/2022) [facility] of Past illness Narrative* Problem [...] of this encounter (statuses as of 04/07/2022) [facility] of Past illness Narrative* Problem [...] of this encounter (statuses as of 04/25/2022) [facility] of Past illness Narrative* Problem [...] of this encounter (statuses as of 05/04/2022) [facility] of Past illness Narrative* Problem [...] of this encounter (statuses as of 05/10/2022) [facility] summary Author Henry Ivan [facility] June 30, 2023 10:27am Note Date/Time June 30, 2023 8:5 9am [facility] Medical Records Department [address] [place] [address] Emergency Department Summary 06/30/23 MR#: [id number] Acct: [id number] Name: ANNE CHUNG Rep #:[id number] : 1985 37 From: Henry Ivan DO PCP: Dr. Yassine Link MD Status:R EG ER Location: ED HPI History of Present Illness Chief Complaint: Lower Extremity Injury Narrative Narrative: 37-year-old female with left foot pain. It is nontraumatic. Its been there for2 days. He states that it sort of radiates across the bottom of her foot. She states at times her stick pain on the top of her foot as well. Patient took Ultram today which she had at home. She is also taken ibuprofen. No skin changes. No increased warmth. No numbness or tingling. [facility] Medical History Anxiety Depression GERD (gastroesophageal reflux disease) H/O thoracic outlet syndrome IBS (irritable bowel syndrome) Left shoulder strain Thoracic outlet syndrome Home Medications albuterol sulfate 90 mcg/actuation aerosol inhaler 2 puff inhalation Q4H PRN PRNAsthma ##0 05/03/16 [Rx Last Taken 11/17/18] pantoprazole 20 mg tablet,delayed release 20 mg PO BID 04/26/20 [History Last Taken Unknown] lorazepam 0.5 mg tablet 0.5 mg PO QHS PRN Anxiety 04/25/23 [History Last Taken Unknown] Allergy/AdvReac Type Severity Reaction Status Date / Time benzonatate Allergy Rash Verified 05/27/23 09:49 [From Tessalon Perles] diazepam [From Valium] Allergy Hives Verified 05/27/23 09:49 morphine Allergy Itching Verified 05/27/23 09:49 Penicillins Allergy Hives Verified 05/27/23 09:49 venom-honey bee Allergy Hives Verified 05/27/23 09:49 [bee venom (honey bee)] Family History Father Heart disease Hypertension Myocardial infarction Mother Cancer lung, throat and Lupus Surgical History History of esophagogastroduodenoscopy (EGD) History of left oophorectomy S/P breast biopsy S/P colonoscopy Status post hysterectomy Social History household members: none Smoking Status: Current every day smoker tobacco type: cigarettes alcohol intake: current alcohol intake frequency: holidays/special occasions only substance use type: marijuana caffeine: Yes what type of physical activity do you participate in: none seatbelt use: sometimes do you feel safe at home: Yes additional social history: Boyfriend-Sha- Works at [employer] Patient works at [employer] ROS ROS ED Constitutional Constitutional ED: Denies chills, fever(s) or sweats Eyes Eyes: Denies blurry vision or change in vision ENT ENT ED: Denies ear pain or sore throat Cardiovascular Cardiovascular: Denies chest pain, palpitations or racing heartbeat Respiratory/Chest Respiratory/Chest: Denies cough, dyspnea or sputum Gastrointestinal Gastrointestinal: Denies abdominal pain, constipation, diarrhea, nausea or vomiting Genitourinary Genitourinary ED: Denies dysuria, hematuria or urinary frequency Musculoskeletal Musculoskeletal: Reports other Details: Left foot pain ; Denies arthralgias, myalgias or neck pain Integumentary Denies abscess, Abrasions or rash Neurologic Neurologic: Denies headache(s), paresthesias or weakness Psychiatric Psychiatric: Denies anxiety, depression, suicidal ideation or suicidal thoughts Endocrine Endocrinology: Denies polydipsia or polyuria EXAM Physical Exam Const Vital Signs: 06/30/23 08:04 Temperature 96.8 F L Temperature Source Temporal Pulse Rate 77 Respiratory Rate 16 Blood Pressure 122/77 H Blood Pressure Mean 92 Pulse Ox 100 Oxygen Delivery Method Room Air Positive well nourished General Appearance ED: NAD HEENT Reports moist mucous membranes normocephalic and atraumatic Resp normal respiratory effort Extremity Extremity Narrative: Tenderness to palpation to the plantar surface of the left midfoot distally. Pain is exacerbated by plantar flexion. No bony tenderness. No deformities. Left foot neurovascular intact brisk cap refill to all 5 toes Neuro oriented x3 Sensorium / Orientation: alert Motor Exam: strength 5/5 throughout Psych mental status grossly normal Skin no wounds MDM MDM MDM Narrative Medical decision making narrative: Patient presenting with nontraumatic foot pain. Her exam is consistent with a plantar fasciitis. I will obtain x-rays just to make sure there is nothing elseacute. Patient amenable to this. She already took Ultram and ibuprofen at home. X-ray of the left foot on my interpretation shows no acute fractures. Patient counseled on this. Patient counseled that this is plantar fasciitis. Was given instructions on care. She will be given follow-up with podiatry. Impression: 1. Plantar fasciitis Radiography Diagnostic Testing: Clinical Impression(s) from Imaging Studies Foot X-Ray 06/30/23 08:50 IMPRESSION: No acute fracture or dislocation identified in the left foot. Electronically Signed: Niecy Anders MD at 9:27 EDT , Discharge Plan Triage Chief Complaint: Lower Extremity Injury ED Provider: Henry Ivan Dx/Rx/DC Orders Instructions: ED Plantar Fasciitis Prescriptions: No Action albuterol sulfate 1 INHALER inhaler 2 puff INHALATION Q4H PRN PRN (Reason: Asthma) Qty: 0 0RF Patient Comments: asthma pantoprazole 20 MG tablet 20 mg PO BID lorazepam 0.5 mg tablet 0.5 mg PO QHS PRN (Reason: Anxiety) Patient Comments: TAKE 1 TABLET BY MOUTH AT BEDTIME NEEDED FOR ANXIETY Primary Care Provider: Yassine Link Referrals: Adonis Hernandez DPM [Med Staff - Active Staff] - 3-5 Days Yassine Link MD [Primary Care Provider] - Disposition Disposition: Home, Self Care What to do if you have Problems For any increased pain, shortness of breath, bleeding, nausea or vomiting, chestpain, or any unexpected problems, contact your Primary Care Provider. Call [facility] ([phone]) or report to the closest Emergency Room. Call 911 if necessary. 06/30/23 1027 <Electronically signed by Henry Ivan DO> Cosigner Signature (if applicable): CC: Dr. Yassine Link MD ~ Signed [facility] Work Phone: Discharge summary Author Grant Mercado [facility] September 21, 2023 7:26am Note Date/Time September 21, 2023 7 :26am [facility] Medical Records Department [address] [place] [address] Emergency Department Summary 09/21/23 MR#: [id number] Acct: [id number] Name: ANNE CHUNG Rep #:[id number] : 1985 37 From: Grant Mercado MD PCP: Dr. 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 She states her foot went into a hole. She denies paresthesia, anesthesia motors. She denies prior injury to the ankle. She has no contraindication to NSAIDs. Prior similar symptoms: No Recent Illness/Hospitalization: No PFSH PFSH Medical History Anxiety Depression GERD (gastroesophageal reflux disease) H/O thoracic outlet syndrome IBS (irritable bowel syndrome) Left shoulder strain Thoracic outlet syndrome Home Medications albuterol sulfate 90 mcg/actuation aerosol inhaler 2 puff inhalation Q4H PRN PRNAsthma ##0 05/03/16 [Rx Last Taken 11/17/18] pantoprazole 20 mg tablet,delayed release 20 mg PO BID 04/26/20 [History Last Taken Unknown] lorazepam 0.5 mg tablet 0.5 mg PO QHS PRN Anxiety 04/25/23 [History Last Taken Unknown] Allergy/AdvReac Type Severity Reaction Status Date / Time benzonatate Allergy Rash Verified 09/21/23 07:13 [From Tessalon Perles] diazepam [From Valium] Allergy Hives Verified 09/21/23 07:13 morphine Allergy Itching Verified 09/21/23 07:13 Penicillins Allergy Hives Verified 09/21/23 07:13 venom-honey bee Allergy Hives Verified 09/21/23 07:13 [bee venom (honey bee)] Family History Father Heart disease Hypertension Myocardial infarction Mother Cancer lung, throat and Lupus Surgical History History of esophagogastroduodenoscopy (EGD) History of left oophorectomy S/P breast biopsy S/P colonoscopy Status post hysterectomy Social History household members: none Smoking Status: Current every day smoker tobacco type: cigarettes alcohol intake: current alcohol intake frequency: holidays/special occasions only substance use type: marijuana caffeine: Yes what type of physical activity do you participate in: none seatbelt use: sometimes do you feel safe at home: Yes additional social history: Boyfriend-Sha- Works at [employer] Patient works at [employer] ROS ROS ED Integumentary Denies Abrasions or rash Neurologic Neurologic: Denies paresthesias or weakness Hematologic/Lymphatic Hematologic/Lymphatic: Denies easy bleeding or easy bruising EXAM Physical Exam Const Vital Signs: 09/21/23 07:14 Temperature 97.6 F L Temperature Source Temporal Pulse Rate 76 Respiratory Rate 14 Blood Pressure 134/76 H Blood Pressure Mean 95 Pulse Ox 98 Oxygen Delivery Method Room Air Positive well nourished, well developed and obese General Appearance ED: well developed and NAD Nutritional Appearance: obese HEENT Reports moist mucous membranes normocephalic and atraumatic Eyes PERRL Eyes Narrative: Extract muscles are intact. Resp normal respiratory effort Cardio regular rate and regular rhythm Extremity normal to inspection and full ROM Extremity Narrative: Patient has pain out of proportion to tactile stimulus over the lateral medial malleolus. There is no soft tissue swelling. There is no ecchymosis. There isno point tenderness. There is no pain outpatient posterior aspect of the distalfibula. No laxity with drawer testing. No pain palpation of the base of the fifth metatarsal. DP and PT pulse are palpable. Neuro oriented x3, CN's II-XII intact bilaterally, moves all extremities and no sensory deficits noted Motor Exam: strength 5/5 throughout Psych mental status grossly normal Skin no wounds Lesions: no lesions Rashes: no rashes MDM MDM MDM Narrative Medical decision making narrative: Patient's exam is unremarkable. Patient has a stable ankle sprain. Per the ankle [place] ankle rules imaging is not indicated. Patient was told that she has an ankle sprain. She was instructed to apply ice 6-10 times a day. She wasinstructed to draw the L foot with her foot 4-6 times a day. She was told to wear flat shoes. No inclines no go up and down ladders. Went asked if she had any questions she asked about work. She was told that shecan work. She should wear flat shoe. And will put down limitations for work. Discharge Plan Triage Chief Complaint: Lower Extremity Injury ED Provider: Grant Mercado Dx/Rx/DC Orders Clinical Impression: Mild sprain of left ankle Instructions: ED Ankle Sprain (Adult) Prescriptions: No Action albuterol sulfate 1 INHALER inhaler 2 puff INHALATION Q4H PRN PRN (Reason: Asthma) Qty: 0 0RF Patient Comments: asthma pantoprazole 20 MG tablet 20 mg PO BID lorazepam 0.5 mg tablet 0.5 mg PO QHS PRN (Reason: Anxiety) Patient Comments: TAKE 1 TABLET BY MOUTH AT BEDTIME NEEDED FOR ANXIETY Stand Alone Forms: ED Work / School Excuse Primary Care Provider: Yassine Link Referrals: Yassine Link MD [Primary Care Provider] - Activity Restrictions/Additional Instructions: 1. Apply ice to your left ankle 6-10 times a day 2. Draw the alphabet with your foot 4-6 times a day 3. Wear flat shoes. He should not go up or down inclines or go up or down ladders. Disposition Disposition: Home, Self Care What to do if you have Problems For any increased pain, shortness of breath, bleeding, nausea or vomiting, chestpain, or any unexpected problems, contact your Primary Care Provider. Call [facility] ([phone]) or report to the closest Emergency Room. Call 911 if necessary. 09/21/23725 <Electronically signed by Grant Mercado MD> Cosigner Signature (if applicable): CC: Dr. Yassine Link MD ~ Signed [facility] Work Phone: Discharge summary Author Codey Dixon [facility] November 25, 2023 5:25am Note Date/Time November 25, 2023 5:15am [facility] Medical Records Department [address] [place] [address] Emergency Department Summary 11/25/23 MR#: [id number] Acct: [id number] Name: ANNE CHUNG Rep #:[id number] : 1985 38 From: Codey Juarez PCP: Dr. Yassine Link MD Status:R EG ER Location: ED HPI History of Present Illness Chief Complaint: Wound Check PFSH PFSH Medical History Anxiety Depression GERD (gastroesophageal reflux disease) H/O thoracic outlet syndrome IBS (irritable bowel syndrome) Left shoulder strain PTSD (post-traumatic stress disorder) Thoracic outlet syndrome Home Medications doxycycline monohydrate 100 mg capsule 100 mg PO BID #14 CAPSULES 11/19/23 [Rx Last Taken Unknown] estradiol 1 mg tablet 1 mg PO DAILY 11/19/23 [History Last Taken 11/19/23] estradiol 2 mg tablet 2 mg PO DAILY 11/19/23 [History Last Taken 11/19/23] hydrocodone-acetaminophen 5-325mg 5mg-325mg 1 tab PO Q4H PRN PRN Pain 1 day #4 TABLETS 11/19/23 [Rx Last Taken Unknown] Allergy/AdvReac Type Severity Reaction Status Date / Time benzonatate Allergy Rash Verified 11/25/23 05:01 [From Tessalon Perles] diazepam [From Valium] Allergy Hives Verified 11/25/23 05:01 morphine Allergy Itching Verified 11/25/23 05:01 Penicillins Allergy Hives Verified 11/25/23 05:01 venom-honey bee Allergy Hives Verified 11/25/23 05:01 [bee venom (honey bee)] Family History Father Heart disease Hypertension Myocardial infarction Mother Cancer lung, throat and Lupus Surgical History History of esophagogastroduodenoscopy (EGD) History of left oophorectomy S/P breast biopsy S/P colonoscopy Status post hysterectomy Social History household members: none Smoking Status: Current every day smoker tobacco type: cigarettes alcohol intake: current alcohol intake frequency: holidays/special occasions only substance use type: marijuana caffeine: Yes what type of physical activity do you participate in: none seatbelt use: sometimes do you feel safe at home: Yes additional social history: Boyfriend-Sha- Works at [employer] Patient works at [employer] EXAM Physical Exam Const Vital Signs: 12/31/23 04:54 Temperature 97.9 F Temperature Source Oral Pulse Rate 72 Respiratory Rate 16 Blood Pressure 105/59 L Blood Pressure Mean 74 Pulse Ox 99 Oxygen Delivery Method Room Air MDM MDM MDM Narrative Medical decision making narrative: HISTORY OF PRESENT ILLNESS: 38-year-old female here with wound check, buttock pain after rectal abscess thatwas incised and drained. REVIEW OF SYSTEMS: Pertinent positives: Rectal pain Pertinent negatives: Vomiting, fever PHYSICAL EXAM: Nursing triage notes reviewed, Vital signs reviewed Constitutional: please see mdm Extremities: No edema Rectal: (Obtained with sharepoint net developer Isai RN) left buttock with incision site is clean dry intact with no surrounding erythema, no crepitus, no pain on portion exam, there are some intertriginous changes as well. No obvious fluctuance or induration. No purulent drainage. There is serosanguineous drainage noted Skin: As above MEDICAL DECISION MAKING: Chief Complaint: Rectal pain External records reviewed: Prior ED visit reviewed seen on 11/19/2023 for left buttock abscess. Underwent procedural sedation. Factors affecting care: Anxiety, GERD, Social determinants of health: PDMP reviewed, multiple narcotic prescriptions from multiple different providers MDM Narrative: Patient was hemodynamically stable, afebrile, nontoxic-appearing. Rectal exam showed no evidence of worse infection, reaccumulation of abscess, necrotizing fasciitis. Patient was encouraged take Tylenol, ibuprofen and to continue sitz bath as tolerated. She was encouraged to follow with her surgeon as well as herprimary care physician for further outpatient evaluation and treatment. The patient and/or family, caregivers express understanding. The patient and/orfamily, caregivers agrees with the plan. Shared decision making: I will have a discussion with the patient and or visitors regarding risk/benefits of further testing or admission. They will be made aware of of the risk/benefits inherent in this decision they will be given the opportunity to voice understanding. Total critical care time today provided was at least 0 minutes. This excludes separately billable procedures. Critical care time (if documented) is secondary to the patient having high probability of clinically significant/life threatening deterioration in the patient's condition which required my urgent intervention. Impression: 1. Rectal pain 2. Rectal abscess Dispo: Discharge Discharge Plan Triage Chief Complaint: Wound Check ED Provider: Codey Dixon Dx/Rx/DC Orders Prescriptions: No Action estradiol 1 mg tablet 1 mg PO DAILY estradiol 2 mg tablet 2 mg PO DAILY doxycycline monohydrate 100 mg capsule 100 mg PO BID Qty: 14 0RF hydrocodone-acetaminophen [hydrocodone-acetaminophen] 5-325 mg tablet 1 tab PO Q4H PRN PRN (Reason: Pain) 1 Days Qty: 4 0RF Primary Care Provider: Yassine Link Referrals: Yassine Link MD [Primary Care Provider] - What to do if you have Problems For any increased pain, shortness of breath, bleeding, nausea or vomiting, chestpain, or any unexpected problems, contact your Primary Care Provider. Call [facility] ([phone]) or report to the closest Emergency Room. Call 911 if necessary. 11/25/23 0525 <Electronically signed by Codey Dixon DO> Cosigner Signature (if applicable): CC: Dr. Yassine Link MD ~ Signed [facility] Work Phone: Discharge summary Author Christos Storm [facility] January 05, 2024 10:59am Note Date/Time January 05, 2024 10:48am [facility] Medical Records Department [address] [place] [address] Emergency Department Summary 01/05/24 MR#: [id number] Acct: [id number] Name: ANNE CHUNG Rep #:[id number] : 1985 38 From: Christos Storm MD PCP: Dr. Yassine Link MD Status:R ER Location: ED HPI History of Present Illness Chief Complaint: Wound Check Detail of Chief Complaint: Recent surgery on December 20 for a pilonidal cyst resection. Informant: patient Onset/Context/Timing Onset: Yesterday Context: Sudden Onset Timing: Continuous Current Severity: Mild Maximum Severity: Mild Narrative Narrative: 38-year-old female the pilonidal cyst incised and drained around late October in the emergency department. Followed up with Dr. Gertrude Henry of the [facility] and had a formal resection done at [facility] on December 20. She believes she may have torn the wound. She has an open wound that she has packeddaily. She denies any bleeding. No pus. No fever. Just complaining of more pain. Prior similar symptoms: Yes Recent Illness/Hospitalization: No PFSH PFSH Medical History Anxiety Depression GERD (gastroesophageal reflux disease) H/O thoracic outlet syndrome IBS (irritable bowel syndrome) Left shoulder strain PTSD (post-traumatic stress disorder) Thoracic outlet syndrome Home Medications doxycycline monohydrate 100 mg capsule 100 mg PO BID #14 CAPSULES 11/19/23 [Rx Last Taken Unknown] estradiol 1 mg tablet 1 mg PO DAILY 11/19/23 [History Last Taken 11/19/23] estradiol 2 mg tablet 2 mg PO DAILY 11/19/23 [History Last Taken 11/19/23] hydrocodone-acetaminophen 5-325mg 5mg-325mg 1 tab PO Q4H PRN PRN Pain 1 day #4 TABLETS 11/19/23 [Rx Last Taken Unknown] sulfamethoxazole 800 mg-trimethoprim 160 mg tablet (Bactrim DS) 1 tab PO BID 10 days #20 tabs 12/08/23 [Rx Last Taken Unknown] hydrocodone-acetaminophen 5-325mg 5mg-325mg 1 tab PO Q6H PRN pain 5 days #20 tabs 12/22/23 [Rx Last Taken Unknown] oxycodone-acetaminophen 5 mg-325 mg tablet (Percocet) 1 tab PO Q8H PRN pain 3 days #10 tabs 01/05/24 [Rx Last Taken Unknown] Allergy/AdvReac Type Severity Reaction Status Date / Time benzonatate Allergy Rash Verified 12/23/23 15:11 [From Tessalon Perles] diazepam [From Valium] Allergy Hives Verified 12/23/23 15:11 morphine Allergy Itching Verified 12/23/23 15:11 Penicillins Allergy Hives Verified 12/23/23 15:11 venom-honey bee Allergy Hives Verified 12/23/23 15:11 [bee venom (honey bee)] Family History Father Heart disease Hypertension Myocardial infarction Mother Cancer lung, throat and Lupus Surgical History History of esophagogastroduodenoscopy (EGD) History of left oophorectomy S/P breast biopsy S/P colonoscopy Status post hysterectomy Social History household members: none Smoking Status: Current every day smoker tobacco type: cigarettes alcohol intake: current alcohol intake frequency: holidays/special occasions only substance use type: marijuana caffeine: Yes what type of physical activity do you participate in: none seatbelt use: sometimes do you feel safe at home: Yes additional social history: Boyfriend-Sha- Works at [employer] Patient works at [employer] ROS ROS ED ROS Narrative Denies recent illness. Review of Systems ROS Unobtainable: Denies due to encephalopathy Constitutional Constitutional ED: Denies chills or fever(s) Eyes Eyes: Denies blurry vision ENT ENT ED: Denies ear pain Cardiovascular Cardiovascular: Denies chest pain Respiratory/Chest Respiratory/Chest: Denies cough or dyspnea Gastrointestinal Gastrointestinal: Denies abdominal pain Genitourinary Genitourinary ED: Denies dysuria or hematuria Musculoskeletal Musculoskeletal: Denies arthralgias Integumentary Denies abscess Neurologic Neurologic: Denies headache(s) Psychiatric Psychiatric: Denies anxiety Endocrine Endocrinology: Denies cold intolerance Hematologic/Lymphatic Hematologic/Lymphatic: Reports none Allergic/Immunologic Allergic/Immunologic ED: Denies mouth swelling, tongue swelling or urticaria EXAM Physical Exam Narrative Exam Narrative: Well-appearing 38-year-old female. Vital signs stable afebrile. H EENT exam unremarkable. Neck nontender no lymphadenopathy. Lungs clear to auscultation bilaterally. Heart regular rhythm no murmur. Abdomen soft nontender. Back nontender. Her proximal end of her buttocks there is an open wound is probably 2 inches long by they at least an inch wide. It is clean and dry. There is no pus. No cellulitis. No drainage or bleeding. It looks dry and clean. [facility]. No signs of any new tear. Moving all 4 extremities. Neurologically she is awake and alert. Const Vital Signs: 01/05/24 09:57 Temperature 97.5 F L Temperature Source Temporal Pulse Rate 91 Respiratory Rate 16 Blood Pressure 110/70 Blood Pressure Mean 83 Pulse Ox 99 Oxygen Delivery Method Room Air Positive well nourished and well developed; Negative for cachectic, contracturesor unkempt General Appearance ED: well developed and NAD; Negative for unkempt, cachectic, contractures, cyanotic, diaphoretic or pallor Nutritional Appearance: Negative for cachectic HEENT Reports moist mucous membranes; Denies dry mucous membranes Negative for trauma or tenderness Mouth ED: No dry mucous membranes Mouth: No dry mucous membranes Eyes PERRL and EOMs intact bilaterally General Eye ED: Negative for pale conjunctiva or scleral icterus Neck no lymphadenopathy, supple and no JVD General: Negative for tenderness Lymph Lymphatic: Negative for other Chest Wall inspection of chest normal and palpation of chest normal Chest: Negative for other Resp normal respiratory effort and clear to auscultation bilaterally Effort and Inspection: Negative for retractions Auscultation: Negative for rales, rhonchi or wheezes Cardio regular rate, regular rhythm, S1 normal heart sound, S2 normal heart sound and no murmurs Rate: Negative for bradycardia or tachycardic Rhythm: Negative for abnormal rhythm GI normal to inspection, nondistended, normoactive bowel sounds, non-tender, non-distended and no masses Inspection: Negative for abdominal distention Auscultation: normoactive bowel sounds Palpation: soft; Negative for tender or guarding Back/Spine no CVA tenderness Back/Spine Narrative: Well-healing surgical incision dry and clean on the proximal end of the buttock cleft. No pus. No bleeding. No signs of new tear. No cellulitis. No drainage or discharge. General Back: Negative for CVA tenderness Cervical Spine: Negative for cervical spine tenderness Thoracic Spine / Upper Back: Negative for thoracic spinal tenderness Lumbar Spine / Lower Back: lumbar spinal tenderness Extremity normal to inspection General Extremety ED: Negative for edema or tenderness General Extremity: Negative for edema Neuro oriented x3 and CN's II-XII intact bilaterally Sensorium / Orientation: alert; Negative for orientation impaired Motor Exam: strength 5/5 throughout Psych mental status grossly normal Appearance: Negative for unkempt Attitude: No agitated Mood & Affect: Negative for depressed, anxious or tearful Skin no rashes or lesions noted, no wounds and skin turgor normal General Skin Exam: elasticity normal; Negative for jaundice or pallor Lesions: No lesion noted Rashes: No rashes noted Trauma: Negative for abrasion Wounds: Negative for wounds noted MDM MDM MDM Narrative Medical decision making narrative: 38-year-old female status post pilonidal cyst resection on December 20. Was concerned she tore it in the last 24 hours. Clinically it is healing well. There is no signs of infection. She will be given 2 Percocet here for pain. A prescription for 7 and follow-up with Dr. Henry who she has an appointment with this week. History & Record Review Discussion w/independent historian: Patient Discharge Plan Triage Chief Complaint: Wound Check ED Provider: Christos Storm Dx/Rx/DC Orders Clinical Impression: Encounter for post surgical wound check, History of excision of pilonidal cyst Instructions: ED Post Op Wound Check, Pain Prescriptions: New oxycodone-acetaminophen [Percocet] 5-325 mg tablet 1 tab PO Q8H PRN (Reason: pain) 3 Days Qty: 10 0RF No Action estradiol 1 mg tablet 1 mg PO DAILY estradiol 2 mg tablet 2 mg PO DAILY doxycycline monohydrate 100 mg capsule 100 mg PO BID Qty: 14 0RF hydrocodone-acetaminophen [hydrocodone-acetaminophen] 5-325 mg tablet 1 tab PO Q4H PRN PRN (Reason: Pain) 1 Days Qty: 4 0RF sulfamethoxazole-trimethoprim [Bactrim DS] 800-160 mg tablet 1 tab PO BID 10 Days Qty: 20 0RF hydrocodone-acetaminophen 5-325 mg tablet 1 tab PO Q6H PRN (Reason: pain) 5 Days Qty: 20 0RF Primary Care Provider: Yassine Link Referrals: Gertrude Henry MD [Med Staff - Active Staff] - Keep Chris appointment Yassine Link MD [Primary Care Provider] - Activity Restrictions/Additional Instructions: Percocet and Motrin for pain. Keep your scheduled appointment with Dr. Gertrude Henry. Continue the wound care that you are currently doing it is healing well. Disposition Disposition: Home, Self Care What to do if you have Problems For any increased pain, shortness of breath, bleeding, nausea or vomiting, chestpain, or any unexpected problems, contact your Primary Care Provider. Call [facility] ([phone]) or report to the closest Emergency Room. Call 911 if necessary. 01/05/24 1059 <Electronically signed by Christos Storm MD> Cosigner Signature (if applicable): CC: Dr. Yassine Link MD ~ Signed [facility] Work Phone: Discharge summary Author Henry Ivan [facility] March 02, 2024 8:50am Note Date/Time March 02, 2024 8:50 am [facility] Medical Records Department [address] [place] [address] Emergency Department Summary 03/02/24 MR#: [id number] Acct: [id number] Name: ANNE CHUNG Rep #:[id number] : 1985 38 From: Henry Ivan DO PCP: Dr. Yassine Link MD Status:R EG ER Location: ED HPI History of Present Illness Chief Complaint: Fall Narrative Narrative: 38-year-old female presenting with nasal bone pain and mild headache with nausea. Patient had mechanical fall in the shower yesterday and states she hit her face which she would go. She did not lose consciousness. She was able to get back up and ambulate. She complains of some mild nausea overnight. She complains of nasal bone pain but has not any epistaxis. She does not have any swelling. She has been using ice and Tylenol. Denies any projectile vomiting. She is able to ambulate with stable gait. No fevers or chills. No visual complaints. PFSH FOR[facility]LY [facility], [facility] Medical History Anxiety Depression GERD (gastroesophageal reflux disease) H/O thoracic outlet syndrome IBS (irritable bowel syndrome) Left shoulder strain PTSD (post-traumatic stress disorder) Thoracic outlet syndrome Home Medications estradiol 1 mg tablet 1 mg PO DAILY 11/19/23 [History Last Taken 11/19/23] estradiol 2 mg tablet 2 mg PO DAILY 11/19/23 [History Last Taken 11/19/23] ondansetron 4 mg disintegrating tablet 4 mg PO Q8H PRN PRN Nausea #14 tabs 03/02/24 [Rx Last Taken Unknown] Allergy/AdvReac Type Severity Reaction Status Date / Time benzonatate Allergy Rash Verified 03/02/24 08:10 [From Tessalon Perles] diazepam [From Valium] Allergy Hives Verified 03/02/24 08:10 morphine Allergy Itching Verified 03/02/24 08:10 Penicillins Allergy Hives Verified 03/02/24 08:10 venom-honey bee Allergy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 M[facility] [address] [address] Referral ID Status Reason Start Date Expiration Date Visits Re quested Visits Authorized [id number] Closed 01/31/2023 05/01/2023 1 1 [facility] for visit Narrative* MRI/CT (Urgent) - Closed Specialty Diagnoses / Procedures Referred By Rosio t Referred To Contact CT IMAGING Diagnoses Peritonitis (HCC) Epigastric pain Rebound tenderness Procedures CT ABD/PEL W IVCON CT ABD & PELVIS W/CONTRAST Mayda Madrigal MD [address] [place] [address] Phone: tel: fax: [facility] IMAGING [facility] Referral ID Status Reason Start Date Expiration Date V isits Requested Visits Authorized [id number] Closed Auto-Generat ed Referral Patient Cleared - Admin/Chairm an/Director advise to proceed or did not respond 01/21/2025 03/22/2025 2 2 [facility]* Diagnostic Procedure Only (Urgent) - Closed Specialty Diagnoses / Procedures Referred By Contac t Referred To Contact XR IMAGING Diagnoses Acute pain of right shoulder Procedures XR SHOULDER [id number] AP/TRUE AP RIGHT RADEX SHOULDER COMPLETE MINIMUM 2 VIEWS Pires, German, SLOTS MANAGER.CORE MOUNTER [address] [place] [address] Phone: tel: fax: [place] [phone] Referral ID Status Reason Start Date Expiration Date V isits Requested Visits Authorized [id number] Closed Auto-Generate d Referral 07/28/2025 08/27/2026 1 1 [facility] Summary Purpose Family History No Family History Records Found Relationship Condition Age at Onset Recorded Date/T samir father Cardiac disease Unknown Hypertension Unknown Myocardial infarction Unknown mother Malignant neoplasm Unknown Advance Directives No Advanced Directives Records FoundDocuments on File Type Date Recorded 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 Advance Directive(s) 09/08/2021 9:29 AM Advance Directive(s) 11/08/2016 11:21 AM Advance Directive Response Recorded Date/ Time Advance Directives No July 18, 2018 1:46pm Living Will No March 09, 2022 10:35pm Power of Assistant Manager Retail No March 09 10:35pm Documents on File Type Date Recorded 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 Advance Directive(s) 09/08/2021 9:29 AM Advance Directive(s) 11/08/2016 11:21 AM Advance Directive Response Recorded Date/ Time Advance Directives No July 18, 2018 1:46pm Living Will No May 30, 2022 1 1:24am Power of Assistant Manager Retail No May 30, 2022 11:24am Advance Directive Response Recorded Date/ Time Advance Directives No July 18, 2018 1:46pm Living Will No July 11 10:57am Power of Assistant Manager Retail No July 11 10:57am Advance Directive Response Recorded Date/ Time Advance Directives No July 18, 2018 1:46pm Living Will No July 27 9:58pm Power of Assistant Manager Retail No July 27, 2022 9:58pm Advance Directive Response Recorded Date/ Time Advance Directives No July 18, 2018 1:46pm Living Will No September 26 11:34am Power of Assistant Manager Retail No September 26, 2022 11:34am Advance Directive Response Recorded Date/ Time Advance Directives No July 18, 2018 12:46pm Living Will No October 22, 2 022 12:14am Power of Assistant Manager Retail No October 22, 2022 12:14am Advance Directive Response Recorded Date/ Time Advance Directives No July 18, 2018 12:46pm Living Will No December 01 9:59am Power of Assistant Manager Retail No December 01 023 9:59am Advance Directive Response Recorded Date/ Time Advance Directives No July 18, 2018 12:46pm Living Will No December 30 2:48pm Power of Assistant Manager Retail No December 30, 2022 2:48pm Advance Directive Response Recorded Date/ Time Advance Directives No July 18, 2018 1:46pm Living Will No February 24, 2023 1:16pm Power of Assistant Manager Retail No February 24 1:16pm Advance Directive Response Recorded Date/ Time Advance Directives No July 18, 2018 1:46pm Living Will No March 12, 2023 4:23pm Power of Assistant Manager Retail No March 12 4:23pm Advance Directive Response Recorded Date/ Time Advance Directives No July 18, 2018 1:46pm Living Will No April 25, 2023 2 :53pm Power of Assistant Manager Retail No April 25, 2023 2:53pm Advance Directive Response Recorded Date/ Time Advance Directives No July 18, 2018 1:46pm Living Will No May 27, 2023 1 2:26pm Power of Assistant Manager Retail No May 27, 2023 12:26pm Advance Directive Response Recorded Date/ Time Advance Directives No July 18, 2018 1:46pm Living Will No June 30, 2023 8:16am Power of Assistant Manager Retail No June 30 8:16am Advance Directive Response Recorded Date/ Time Advance Directives No July 18, 2018 1:46pm Living Will No September 21 7:42am Power of Assistant Manager Retail No September 21, 2023 7:42am Advance Directive Response Recorded Date/ Time Advance Directives No July 18, 2018 12:46pm Living Will No November 19, 2 023 12:54pm Power of Assistant Manager Retail No November 19, 2023 12:54pm Advance Directive Response Recorded Date/ Time Advance Directives No July 18, 2018 12:46pm Living Will No November 25, 023 5:00am Power of Assistant Manager Retail No November 25, 2023 5:00am Advance Directive Response Recorded Date/ Time Advance Directives No July 18, 2018 12:46pm Living Will No December 08 1:57pm Power of Assistant Manager Retail No December 08, 2023 1:57pm Advance Directive Response Recorded Date/ Time Advance Directives No July 18, 2018 12:46pm Living Will No December 22 11:31am Power of Assistant Manager Retail No December 22, 2023 11:31am Advance Directive Response Recorded Date/ Time Advance Directives No July 18, 2018 12:46pm Living Will No December 23 3:56pm Power of Assistant Manager Retail No December 23, 2023 3:56pm Advance Directive Response Recorded Date/ Time Advance Directives No July 18, 2018 12:46pm Living Will No January 05, 024 10:41am Power of Assistant Manager Retail No January 05, 2024 10:41am Advance Directive Response Recorded Date/ Time Advance Directives No July 18, 2018 12:46pm Living Will No January 17, 2 024 4:41pm Power of Assistant Manager Retail No January 17, 2024 4:41pm Advance Directive Response Recorded Date/ Time Advance Directives No July 18, 2018 1:46pm Living Will No February 11, 2024 1:57pm Power of Assistant Manager Retail No February 10 1:57pm Advance Directive Response Recorded Date/ Time Advance Directives No July 18, 2018 1:46pm Living Will No March 02, 2024 8:14am Power of Assistant Manager Retail No March 02 8:14am Advance Directive Response Recorded Date/ Time Advance Directives No July 18, 2018 12:46pm Living Will No November 11, 023 8:19am Power of Assistant Manager Retail No November 11, 2023 8:19am Advance Directive Response Recorded Date/ Time Advance Directives No July 18, 2018 1:46pm Advance Directive Response Recorded Date/ Time Living Will No February 13, 2025 4:40pm Do you have a Healthcare Power of Assistant Manager Retail? No February 13, 2025 4:40pm Advance Directives No July 18, 2018 1:46pm Advance Directive Response Recorded Date/ Time Do you have a Healthcare Power of Assistant Manager Retail? 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 ABD PAIN ABD PAIN Reason for Visit Genital warts Encounter for routine gynecological examination Chief Complaint 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 ABD PAIN ABD PAIN LEFT SHOULDER INJURY SHOULDER 2 VIEW left shoulder Reason for Visit Genital warts Encounter for routine gynecological examination Left shoulder strain Chief Complaint GI BLEED HEMORRHOID BLEEDING ABD PAIN ABD PAIN LEFT SHOULDER INJURY SHOULDER 2 VIEW left shoulder SHOULDER Reason for Visit Left shoulder strain Chief Complaint LEFT SHOULDER INJURY SHOULDER 2 VIEW left shoulder SHOULDER back pain Reason for Visit Left shoulder strain Chief Complaint LEFT SHOULDER INJURY SHOULDER 2 VIEW left shoulder SHOULDER back pain neck Reason for Visit Left shoulder strain Chief Complaint SHOULDER back pain neck ABDOMINAL PAIN ABD PAIN Chief Complaint back pain neck ABDOMINAL PAIN ABD PAIN ABD Chief Complaint neck ABDOMINAL PAIN ABD PAIN ABD LOWER EXT Chief Complaint ABD LOWER EXT left ankle Chief Complaint left ankle ABD PAIN abcess Chief Complaint left ankle ABD PAIN abcess PAIN IN BUTT CRACK Chief Complaint left ankle ABD PAIN abcess PAIN IN BUTT CRACK ABSCESS Chief Complaint left ankle ABD PAIN abcess PAIN IN BUTT CRACK ABSCESS other pain Chief Complaint left ankle ABD PAIN abcess PAIN IN BUTT CRACK ABSCESS other pain wound check Chief Complaint left ankle ABD PAIN abcess PAIN IN BUTT CRACK ABSCESS other pain wound check WOUND CHECK Chief Complaint left ankle ABD PAIN abcess PAIN IN BUTT CRACK ABSCESS other pain wound check WOUND CHECK WOUND CHECK Chief Complaint ABD PAIN abcess PAIN IN BUTT CRACK ABSCESS other pain wound check WOUND CHECK WOUND CHECK RECTAL PAIN Chief Complaint ABD PAIN abcess PAIN IN BUTT CRACK ABSCESS other pain wound check WOUND CHECK WOUND CHECK RECTAL PAIN FALL Chief Complaint left ankle ABD PAIN Chief Complaint Admit Date abd pain January 15, 2025 1:18pm SCREENING January 20, 2025 12:01pm Chief Complaint Admit Date abd pain January 15, 2025 1:18pm SCREENING January 20, 2025 12:01pm BODY ACHES February 13, 2025 2:4 5pm Chief Complaint Admit Date RIGHT SHOULDER PAIN August 23, 2025 1:11pm Reason for Referral Specialty Diagnoses / Procedures Referred By Contac t Referred To Contact Pain Management Diagnoses Thoracic outlet syndrome Procedures CONSULT TO PAIN MGT OFFICE/OUTPATIENT [facility] 60-74 MINUTES German Pires, SLOTS MANAGER.CORE MOUNTER [address] [place] [address] Referral ID Status Reason Start Date Expiration Date Visits Requested Visits Authorized [id number] Authorized PCP Requested Referral 06/19/2022 06/19/2023 1 1 Specialty Diagnoses / Procedures Referred By Contac t Referred To Contact Vascular Surgery Diagnoses Thoracic outlet syndrome Procedures CONSULT TO VASCULAR SURGERY OFFICE/OUTPATIENT [facility] 60-74 MINUTES German Pires, SLOTS MANAGER.CORE MOUNTER [address] [place] [address] Referral ID Status Reason Start Date Expiration Date Visits Requested Visits Authorized [id number] Authorized PCP Requested Referral 06/19/2022 06/19/2023 1 1 Specialty Diagnoses / Procedures Referred By Contac t Referred To Contact Diagnoses Thoracic outlet syndrome German Pires, SLOTS MANAGER.CORE MOUNTER [address] [place] [address] Referral ID Status Reason Start Date Expiration Date Visits Re quested Visits Authorized [id number] Closed 1 1 Specialty Diagnoses / Procedures Referred By Contac t Referred To Contact [facility] Diagnoses Acute pain of right shoulder Procedures PT REHAB FOLLOW UP ORDER THERAPEUTIC EXERCISES RE, EA 15 MIN. German Pires APRN.CORE MOUNTER [address] [place] [address] [facility] [address] [address] Referral ID Status Reason Start Date Expiration Date Visits Requested Visits Authorized [id number] Waiting for Response PCP Requested Referral Auto-Generate d Referral 12/28/2022 03/28/2023 1 1 Specialty Diagnoses / Procedures Referred By Contac t Referred To Contact [facility] Diagnoses Cervicalgia Procedures CONSULT TO SPINE [facility]ICAL C[facility] OFFICE/OUTPATIENT [facility] 60-74 MINUTES Estevan Blackman MD [address] [id number] Referral ID Status Reason Start Date Expiration Date Visits Requested Visits Authorized [id number] Authorized PCP Requested Referral 02/20/2023 02/20/2024 1 1 Specialty Diagnoses / Procedures Referred By Contac t Referred To Contact Orthopedics Diagnoses Bursitis of other bursa of right hip Procedures CONSULT TO ORTHOPAEDICS OFFICE/OUTPATIENT [facility] 60 MINUTES Yassine Link MD [address] [place] [address] Referral ID Status Reason Start Date Expiration Date Visits Requested Visits Authorized [id number] Authorized PCP Requested Referral 04/29/2024 04/29/2025 1 1 Specialty Diagnoses / Procedures Referred By Contac t Referred To Contact [facility] Diagnoses Sprain of right wrist, subsequent encounter Cervicalgia Procedures CONSULT TO PHYSICAL THERAPY PHYSICAL THERAPY EVALUATION HIGH COMPLEX 45 MINS German Pires, SLOTS MANAGER.CORE MOUNTER [address] [place] [address] [facility] [address] [address] Referral ID Status Reason Start Date Expiration Date Visits Requested Visits Authorized [id number] Pending Review Auto-Generat ed Referral 06/09/2024 06/09/2025 1 1 Specialty Diagnoses / Procedures Referred By Contac t Referred To Contact Orthopedics Diagnoses Fall, subsequent encounter Sprain of right wrist, subsequent encounter Procedures CONSULT TO ORTHOPAEDICS OFFICE/[facility]IENT [facility] 60 MINUTES Pranay German, SLOTS MANAGER.CORE MOUNTER [address] [place] [address] Referral ID Status Reason Start Date Expiration Date Visits Requested Visits Authorized [id number] Authorized PCP Requested Referral 06/09/2024 06/09/2025 1 1 Specialty Diagnoses / Procedures Referred By Rosio sanabria Referred To Contact General Surgery Diagnoses Gastroesophageal reflux disease, unspecified whether esophagitis present Procedures CONSULT TO GENERAL SURGERY OFFICE/[facility]IENT [facility] 60 MINUTES PiresGerman bennett, SLOTS MANAGER.CORE MOUNTER [address] [place] [address] Referral ID Status Reason Start Date Expiration Date Visits Requested Visits Authorized [id number] Authorized PCP Requested Referral 12/23/2024 12/23/2025 1 1 Additional Source Comments INFORMATION SOURCE (unrecogn ized section and content) DATE CREATED AUTHOR 11/04/2018 [facility] DATE CREATED AUTHOR AUTHOR'S ORGANIZ ATION 06/16/2024 [facility] DATE CREATED AUTHOR AUTHOR'S ORGANIZ ATION 01/31/2025 [facility] DATE CREATED AUTHOR AUTHOR'S ORGANIZ ATION 03/22/2025 [facility] DATE CREATED AUTHOR AUTHOR'S ORGANIZ ATION 08/29/2025 [facility] DATE CREATED AUTHOR AUTHOR'S ORGANIZ ATION 08/30/2025 [facility] Source Comments (unrecognize d section and content) In the event this informatio n is protected by the Federal Confidentiality of Alcohol and Drug Abuse Patient Records regulations: The Federal rules restrict any use of the information to criminally investigate or prosecute any alcohol or drug abuse patient.[facility] the event this information is protected by the Federal Confidentiality of Alcohol and Drug Abuse Patient Records regulations: The Federal rules restrict any use of the information to criminally investigate or prosecute any alcohol or drug abuse patient.[facility] the event this information is protected by the Federal Confidentiality of Alcohol and Drug Abuse Patient Records regulations: The Federal rules restrict any use of the information to criminally investigate or prosecute any alcohol or drug abuse patient.[facility] the event this information is protected by the Federal Confidentiality of Alcohol and Drug Abuse Patient Records regulations: The Federal rules restrict any use of the information to criminally investigate or prosecute any alcohol or drug abuse patient.[facility] the event this information is protected by the Federal Confidentiality of Alcohol and Drug Abuse Patient Records regulations: The Federal rules restrict any use of the information to criminally investigate or prosecute any alcohol or drug abuse patient.[facility] the event this information is protected by the Federal Confidentiality of Alcohol and Drug Abuse Patient Records regulations: The Federal rules restrict any use of the information to criminally investigate or prosecute any alcohol or drug abuse patient.[facility] Hospital[facility] the event this information is protected by the Federal Confidentiality of Alcohol and Drug Abuse Patient Records regulations: The Federal rules restrict any use of the information to criminally investigate or prosecute any alcohol or drug abuse patient.[facility] Hospital[facility] the event this information is protected by the Federal Confidentiality of Alcohol and Drug Abuse Patient Records regulations: The Federal rules restrict any use of the information to criminally investigate or prosecute any alcohol or drug abuse patient.[facility] HospitalIn the event this information is protected by the Federal Confidentiality of Alcohol and Drug Abuse Patient Records regulations: The Federal rules restrict any use of the information to criminally investigate or prosecute any alcohol or drug abuse patient.[facility] HospitalIn the event this information is protected by the Federal Confidentiality of Alcohol and Drug Abuse Patient Records regulations: The Federal rules restrict any use of the information to criminally investigate or prosecute any alcohol or drug abuse patient.[facility] HospitalIn the event this information is protected by the Federal Confidentiality of Alcohol and Drug Abuse Patient Records regulations: The Federal rules restrict any use of the information to criminally investigate or prosecute any alcohol or drug abuse patient.[facility] HospitalIn the event this information is protected by the Federal Confidentiality of Alcohol and Drug Abuse Patient Records regulations: The Federal rules restrict any use of the information to criminally investigate or prosecute any alcohol or drug abuse patient.[facility] HospitalIn the event this information is protected by the Federal Confidentiality of Alcohol and Drug Abuse Patient Records regulations: The Federal rules restrict any use of the information to criminally investigate or prosecute any alcohol or drug abuse patient.[facility] HospitalIn the event this information is protected by the Federal Confidentiality of Alcohol and Drug Abuse Patient Records regulations: The Federal rules restrict any use of the information to criminally investigate or prosecute any alcohol or drug abuse patient.[facility] HospitalIn the event this information is protected by the Federal Confidentiality of Alcohol and Drug Abuse Patient Records regulations: The Federal rules restrict any use of the information to criminally investigate or prosecute any alcohol or drug abuse patient.[facility] HospitalIn the event this information is protected by the Federal Confidentiality of Alcohol and Drug Abuse Patient Records regulations: The Federal rules restrict any use of the information to criminally investigate or prosecute any alcohol or drug abuse patient.[facility] HospitalIn the event this information is protected by the Federal Confidentiality of Alcohol and Drug Abuse Patient Records regulations: The Federal rules restrict any use of the information to criminally investigate or prosecute any alcohol or drug abuse patient.[facility] HospitalIn the event this information is protected by the Federal Confidentiality of Alcohol and Drug Abuse Patient Records regulations: The Federal rules restrict any use of the information to criminally investigate or prosecute any alcohol or drug abuse patient.[facility] HospitalIn the event this information is protected by the Federal Confidentiality of Alcohol and Drug Abuse Patient Records regulations: The Federal rules restrict any use of the information to criminally investigate or prosecute any alcohol or drug abuse patient.[facility] HospitalIn the event this information is protected by the Federal Confidentiality of Alcohol and Drug Abuse Patient Records regulations: The Federal rules restrict any use of the information to criminally investigate or prosecute any alcohol or drug abuse patient.[facility] HospitalIn the event this information is protected by the Federal Confidentiality of Alcohol and Drug Abuse Patient Records regulations: The Federal rules restrict any use of the information to criminally investigate or prosecute any alcohol or drug abuse patient.[facility] HospitalIn the event this information is protected by the Federal Confidentiality of Alcohol and Drug Abuse Patient Records regulations: The Federal rules restrict any use of the information to criminally investigate or prosecute any alcohol or drug abuse patient.[facility] HospitalIn the event this information is protected by the Federal Confidentiality of Alcohol and Drug Abuse Patient Records regulations: The Federal rules restrict any use of the information to criminally investigate or prosecute any alcohol or drug abuse patient.[facility] HospitalIn the event this information is protected by the Federal Confidentiality of Alcohol and Drug Abuse Patient Records regulations: The Federal rules restrict any use of the information to criminally investigate or prosecute any alcohol or drug abuse patient.[facility] HospitalIn the event this information is protected by the Federal Confidentiality of Alcohol and Drug Abuse Patient Records regulations: The Federal rules restrict any use of the information to criminally investigate or prosecute any alcohol or drug abuse patient.[facility] HospitalIn the event this information is protected by the Federal Confidentiality of Alcohol and Drug Abuse Patient Records regulations: The Federal rules restrict any use of the information to criminally investigate or prosecute any alcohol or drug abuse patient.[facility] HospitalIn the event this information is protected by the Federal Confidentiality of Alcohol and Drug Abuse Patient Records regulations: The Federal rules restrict any use of the information to criminally investigate or prosecute any alcohol or drug abuse patient.[facility] HospitalIn the event this information is protected by the Federal Confidentiality of Alcohol and Drug Abuse Patient Records regulations: The Federal rules restrict any use of the information to criminally investigate or prosecute any alcohol or drug abuse patient.[facility] HospitalIn the event this information is protected by the Federal Confidentiality of Alcohol and Drug Abuse Patient Records regulations: The Federal rules restrict any use of the information to criminally investigate or prosecute any alcohol or drug abuse patient.[facility] HospitalIn the event this information is protected by the Federal Confidentiality of Alcohol and Drug Abuse Patient Records regulations: The Federal rules restrict any use of the information to criminally investigate or prosecute any alcohol or drug abuse patient.[facility] HospitalIn the event this information is protected by the Federal Confidentiality of Alcohol and Drug Abuse Patient Records regulations: The Federal rules restrict any use of the information to criminally investigate or prosecute any alcohol or drug abuse patient.[facility] HospitalIn the event this information is protected by the Federal Confidentiality of Alcohol and Drug Abuse Patient Records regulations: The Federal rules restrict any use of the information to criminally investigate or prosecute any alcohol or drug abuse patient.[facility] HospitalIn the event this information is protected by the Federal Confidentiality of Alcohol and Drug Abuse Patient Records regulations: The Federal rules restrict any use of the information to criminally investigate or prosecute any alcohol or drug abuse patient.[facility] HospitalIn the event this information is protected by the Federal Confidentiality of Alcohol and Drug Abuse Patient Records regulations: The Federal rules restrict any use of the information to criminally investigate or prosecute any alcohol or drug abuse patient.[facility] HospitalIn the event this information is protected by the Federal Confidentiality of Alcohol and Drug Abuse Patient Records regulations: The Federal rules restrict any use of the information to criminally investigate or prosecute any alcohol or drug abuse patient.[facility] HospitalIn the event this information is protected by the Federal Confidentiality of Alcohol and Drug Abuse Patient Records regulations: The Federal rules restrict any use of the information to criminally investigate or prosecute any alcohol or drug abuse patient.[facility] HospitalIn the event this information is protected by the Federal Confidentiality of Alcohol and Drug Abuse Patient Records regulations: The Federal rules restrict any use of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 Comments Pain R shoulder and L doreen t Care Teams (unrecognized sec tion and content) Surveillance Manager Relationship Specialty Start Date End Date Yassine Link MD [address] [place], [place] [id number] PCP - General 02/15/07 Florin Patel MD [address] [place] [address] Referring General Surgery 07/25/18 Bartolo Gonzalez MD [address] [facility] [address] [place] [address] Referring General Surgery 09/24/19 Surveillance Manager Relationship Specialty Start Date End Date Yassine Link MD [address] [place] [address] PCP - General 02/15/07 Florin Patel MD [address] [facility] [place] [address] Referring General Surgery 07/25/18 Bartolo Gonzalez MD [address] [facility] [address] [place] [address] Referring General Surgery 09/24/19 Surveillance Manager Relationship Specialty Start Date End Date Yassine Link MD [address] [place] [address] PCP - General 02/15/07 Florin Patel MD [address] [facility] [place] [address] Referring General Surgery 07/25/18 Bartolo Gonzalez MD [address] [place] [address] [place] [address] Referring General Surgery 09/24/19 Surveillance Manager Relationship Specialty Start Date End Date Yassine Link MD [address] [place] [address] PCP - General 02/15/07 Florin Patel MD [address] [facility] [place] [address] Referring General Surgery 07/25/18 Bartolo Gonzalez MD [address] [place] [address] Referring General Surgery 09/24/19 Surveillance Manager Relationship Specialty Start Date End Date Yassine Link MD [address] [place] [address] PCP - General 02/15/07 Florin Patel MD [address] [facility] [place] [address] Referring General Surgery 07/25/18 Bartolo Gonzalez MD [address] [place] [address] Referring General Surgery 09/24/19 Surveillance Manager Relationship Specialty Start Date End Date Yassine Link MD [address] [place] [address] PCP - General 02/15/07 Florin Patel MD [address] [facility] [place] [address] Referring General Surgery 07/25/18 Bartolo Gonzalez MD [address] [facility] [address] [place] [address] Referring General Surgery 09/24/19 Surveillance Manager Relationship Specialty Start Date End Date Yassine Link MD [address] [place] [address] PCP - General 02/15/07 Florin Patel MD [address] [facility] [place] [address] Referring General Surgery 07/25/18 Bartolo Gonzalez MD [address] [facility] [address] [place] [address] Referring General Surgery 09/24/19 Surveillance Manager Relationship Specialty Start Date End Date Yassine Link MD [address] [place] [address] PCP - General 02/15/07 Florin Patel MD [address] [facility] [place] [address] Referring General Surgery 07/25/18 Bartolo Gonzalez MD [address] [place] [address] Referring General Surgery 09/24/19 Surveillance Manager Relationship Specialty Start Date End Date Yassine Link MD [address] [facility] [address] PCP - General 02/15/07 Florin Patel MD [address] [facility] [place] [address] Referring General Surgery 07/25/18 Bartolo Gonzalez MD [address] [place] [address] Referring General Surgery 09/24/19 Surveillance Manager Relationship Specialty Start Date End Date Yassine Link MD [address] [place] [address] PCP - General 02/15/07 Florin Patel MD [address] [facility] [place] [address] Referring General Surgery 07/25/18 Bartolo Gonzalez MD [address] [place] [address] Referring General Surgery 09/24/19 Surveillance Manager Relationship Specialty Start Date End Date Yassine Link MD [address] [place] [address] PCP - General 02/15/07 Florin Patel MD [address] [facility] [place] [address] Referring General Surgery 07/25/18 Bartolo Gonzalez MD [address] [facility] [address] [place] [address] Referring General Surgery 09/24/19 Surveillance Manager Relationship Specialty Start Date End Date Yassine Link MD [address] [place] [address] PCP - General 02/15/07 Florin Patel MD [address] [facility] [place] [address] Referring General Surgery 07/25/18 Bartolo Gonzalez MD [address] [facility] [address] [place] [address] Referring General Surgery 09/24/19 Surveillance Manager Relationship Specialty Start Date End Date Yassine Link MD [address] [place] [address] PCP - General 02/15/07 Florin Patel MD [address] [facility] [place] [address] Referring General Surgery 07/25/18 Bartolo Gonzalez MD [address] [facility] [address] [place] [address] Referring General Surgery 09/24/19 Surveillance Manager Relationship Specialty Start Date End Date Yassine Link MD [address] [place] [address] PCP - General 02/15/07 Florin Patel MD [address] [place] [address] Referring General Surgery 07/25/18 Bartolo Gonzalez MD [address] [place] [address] Referring General Surgery 09/24/19 Surveillance Manager Relationship Specialty Start Date End Date Yassine Link MD [address] [place] [address] PCP - General 02/15/07 Florin Patel MD [address] [facility] [place] [address] Referring General Surgery 07/25/18 Bartolo Gonzalez MD [address] [place] [address] Referring General Surgery 09/24/19 Surveillance Manager Relationship Specialty Start Date End Date Yassine Link MD [address] [place] [address] PCP - General 02/15/07 Florin Patel MD [address] [facility] [place] [address] Referring General Surgery 07/25/18 Bartolo Gonzalez MD [address] [place] [address] Referring General Surgery 09/24/19 Surveillance Manager Relationship Specialty Start Date End Date Yassine Link MD [address] [place] [address] PCP - General 02/15/07 Florin Patel MD [address] [facility] [place] [address] Referring General Surgery 07/25/18 Bartolo Gonzalez MD [address] [facility] [address] [place] [address] Referring General Surgery 09/24/19 Surveillance Manager Relationship Specialty Start Date End Date Yassine Link MD [address] [place] [address] PCP - General 02/15/07 Florin Patel MD [address] [facility] [place] [address] Referring General Surgery 07/25/18 Bartolo Gonzalez MD [address] [facility] [address] [place] [address] Referring General Surgery 09/24/19 Surveillance Manager Relationship Specialty Start Date End Date Yassine Link MD [address] [place] [address] PCP - General 02/15/07 Florin Patel MD [address] [facility] [place] [address] Referring General Surgery 07/25/18 Bartolo Gonzalez MD [address] [facility] [address] [place] [address] Referring General Surgery 09/24/19 Surveillance Manager Relationship Specialty Start Date End Date Yassine Link MD [address] [place] [address] PCP - General 02/15/07 Florin Patel MD [address] [facility] [place] [address] Referring General Surgery 07/25/18 Bartolo Gonzalez MD [address] [place] [address] Referring General Surgery 09/24/19 Surveillance Manager Relationship Specialty Start Date End Date Yassine Link MD [address] [place] [address] PCP - General 02/15/07 Florin Patel MD [address] [facility] [place] [address] Referring General Surgery 07/25/18 Bartolo Gonzalez MD [address] [facility] [address] [place] [address] Referring General Surgery 09/24/19 Surveillance Manager Relationship Specialty Start Date End Date Yassine Link MD [address] [place] [address] PCP - General 02/15/07 Florin Patel MD [address] [facility] [place] [address] Referring General Surgery 07/25/18 Bartolo Gonzalez MD [address] [facility] [address] [place] [address] Referring General Surgery 09/24/19 Surveillance Manager Relationship Specialty Start Date End Date Yassine Link MD [address] [place] [address] PCP - General 02/15/07 Florin Patel MD [address] [facility] [place] [address] Referring General Surgery 07/25/18 Bartolo Gonzalez MD [address] [facility] [address] [place] [address] Referring General Surgery 09/24/19 Team Status: Active Member Role Status Dates No Primary Care Physician Family Provider Active Dr. Yassine Link MD Primary Care Provider Active Team Status: Inactive Member Role Status Dates Dr. Yassine Link MD Primary Care Provider, Refer ring Provider Active Aliyah ROBERTS PA-C Attending Provider Active Team Status: Inactive Member Role Status Dates Dr. Yassine Link MD Primary Care Provider, Refer ring Provider Active Oniel ROBERTS, PA Attending Provider Active Team Status: Inactive Member Role Status Dates Dr. Yassine Link MD Primary Care Provider Active Dr. Joce Addison MD Attending Provider Active Team Status: Inactive Member Role Status Dates Dr. Yassine Link MD Primary Care Provider Active Dr. Orville Cummings DO Attending Provider, Emergency Provide r Active Team Status: Inactive Member Role Status Dates Dr. Yassine Link MD Primary Care Provider Active Dr. Carol Gillis MD Attending Provider, Emergency Provider Active Team Status: Inactive Member Role Status Dates Dr. Yassine Link MD Primary Care Provider Active Pk Churchill MD Attending Provider, Emergency Provid er Active Team Status: Inactive Member Role Status Dates Dr. Yassine Link MD Primary Care Provider Active Dr. Grant Mercado MD Emergency Provider Active Surveillance Manager Relationship Specialty Start Date End Date Yassine Link MD [address] [place], [place] [id number] PCP - General 02/15/07 Florin Patel MD [address] [place] [place], [place] [address] Referring General Surgery 07/25/18 Bartolo Gonzalez MD [address] [id number] Referring General Surgery 09/24/19 Surveillance Manager Relationship Specialty Start Date End Date Yassine Link MD [address] [place], [place] [id number] PCP - General 02/15/07 Florin Patel MD [address] [facility] [place] [address] Referring General Surgery 07/25/18 Bartolo Gonzalez MD [address] [place] [address] Referring General Surgery 09/24/19 Team Status: Inactive Member Role Status Dates Dr. Yassine Link MD Primary Care Provider Active Dr. Grant Mercado MD Attending Provider, Emergency Provi ashley Active Team Status: Inactive Member Role Status Dates Dr. Yassine Link MD Primary Care Provider Active Dr. Kathia Dean DO Emergency Provider Active Team Status: Inactive Member Role Status Dates Dr. Yassine Link MD Primary Care Provider Active Dr. Kathia Dean DO Attending Provider, Emergency Pro vider Active Team Status: Inactive Member Role Status Dates Dr. Yassine Link MD Primary Care Provider Active Dr. Christos Storm MD Emergency Provider Active Surveillance Manager Relationship Specialty Start Date End Date Yassine Link MD [address] [facility] [address] PCP - General 02/15/07 Florin Patel MD [address] [facility] [place] [address] Referring General Surgery 07/25/18 Bartolo Gonzalez MD [address] [facility] [address] [place] [address] Referring General Surgery 09/24/19 Team Status: Inactive Member Role Status Dates Dr. Yassine Link MD Primary Care Provider Active Dr. Christos Storm MD Attending Provider, Emergency Pro vider Active Team Status: Inactive Member Role Status Dates Dr. Yassine Link MD Primary Care Provider Active Dr. Cam Aguirre MD Attending Provider, Emergency Provider Active Team Status: Inactive Member Role Status Dates Dr. Yassine Link MD Primary Care Provider Active Dr. Adonis Desir DO Emergency Provider Active Team Status: Inactive Member Role Status Dates Dr. Yassine Link MD Primary Care Provider Active Dr. Adonis Desir DO Attending Provider, Emergency Pro vider Active Surveillance Manager Relationship Specialty Start Date End Date Yassine Link MD [address] [place] [address] PCP - General 02/15/07 Florin Patel MD [address] [facility] [place] [address] Referring General Surgery 07/25/18 Bartolo Gonzalez MD [address] [place] [address] Referring General Surgery 09/24/19 Team Status: Inactive Member Role Status Dates Dr. Yassine Link MD Primary Care Provider Active Dr. Henry Ivan DO Emergency Provider Active Surveillance Manager Relationship Specialty Start Date End Date Yassine iLnk MD [address] [place] [address] PCP - General 02/15/07 Florin Patel MD [address] [facility] [place] [address] Referring General Surgery 07/25/18 Bartolo Gonzalez MD [address] [place] [address] Referring General Surgery 09/24/19 Team Status: Inactive Member Role Status Dates Dr. Yassine Link MD Primary Care Provider Active Dr. Henry Ivan DO Attending Provider, Emergency Provider Active Surveillance Manager Relationship Specialty Start Date End Date Yassine Link MD [address] [place] [address] PCP - General 02/15/07 Florin Patel MD [address] [place] [address] Referring General Surgery 07/25/18 Bartolo Gonzalez MD [address] [place] [address] Referring General Surgery 09/24/19 Surveillance Manager Relationship Specialty Start Date End Date Yassine Link MD [address] [place] [address] PCP - General 02/15/07 Florin Patel MD [address] [place] [address] Referring General Surgery 07/25/18 Bartolo Gonzalez MD [address] [place] [address] Referring General Surgery 09/24/19 Surveillance Manager Relationship Specialty Start Date End Date Yassine Link MD [address] [place] [address] PCP - General 02/15/07 Florin Patel MD [address] [place] [address] Referring General Surgery 07/25/18 Bartolo Gonzalez MD [address] [place] [address] Referring General Surgery 09/24/19 Surveillance Manager Relationship Specialty Start Date End Date Yassine Link MD [address] [place] [address] PCP - General 02/15/07 Florin Patel MD [address] [place] [address] Referring General Surgery 07/25/18 Bartolo Gonzalez MD [address] [place] [address] Referring General Surgery 09/24/19 Team Status: Inactive Member Role Status Dates Dr. Yassine Link MD Primary Care Provider Active Dr. Codey Dixon DO Emergency Provider Active Team Status: Inactive Member Role Status Dates Dr. Yassine Link MD Primary Care Provider Active Dr. Codey Dixon DO Attending Provider, Emergency P miller Active Team Status: Inactive Member Role Status Dates Dr. Yassine Link MD Primary Care Provider Active Dr. Cam Aguirre MD Emergency Provider Active Team Status: Inactive Member Role Status Dates Dr. Yassine Link MD Primary Care Provider Active Dr. Bartolo Giles DO Emergency Provider Active Team Status: Inactive Member Role Status Dates Dr. Yassine Link MD Primary Care Provider Active Dr. Ammon Valdez MD Emergency Provider Active Surveillance Manager Relationship Specialty Start Date End Date Yassine Link MD [address] [place] [address] PCP - General 02/15/07 Florin Patel MD [address] [place] [address] Referring General Surgery 07/25/18 Bartolo Gonzalez MD [address] [place] [address] Referring General Surgery 09/24/19 Team Status: Inactive Member Role Status Dates Dr. Yassine Link MD Primary Care Provider Active Dr. Bartolo Giles DO Attending Provider, Emergency P miller Active Team Status: Inactive Member Role Status Dates Dr. Yassine Link MD Primary Care Provider Active Dr. Ammon Valdez MD Attending Provider, Emergency Provider Active Surveillance Manager Relationship Specialty Start Date End Date Yassine Link MD [address] [place] [address] PCP - General 02/15/07 Florin Patel MD [address] [facility] [place] [address] Referring General Surgery 07/25/18 Bartolo Gonzalez MD [address] [facility] [address] [place] [address] Referring General Surgery 09/24/19 Team Status: Inactive Member Role Status Dates Dr. Yassine Link MD Primary Care Provider Active Dr. Carol Gillis MD Emergency Provider Active Surveillance Manager Relationship Specialty Start Date End Date Yassine Link MD [address] [place] [address] PCP - General 02/15/07 Florin Patel MD [address] [facility] [place] [address] Referring General Surgery 07/25/18 Bartolo Gonzalez MD [address] [facility] [address] [place] [address] Referring General Surgery 09/24/19 Surveillance Manager Relationship Specialty Start Date End Date Yassine Link MD [address] [place] [address] PCP - General 02/15/07 Florin Patel MD [address] [place] [address] Referring General Surgery 07/25/18 Bartolo Gonzalez MD [address] [place] [address] Referring General Surgery 09/24/19 Surveillance Manager Relationship Specialty Start Date End Date Yassine Link MD [address] [place] [address] PCP - General 02/15/07 Florin Patel MD [address] [place] [address] Referring General Surgery 07/25/18 Bartolo Gonzalez MD [address] [place] [address] Referring General Surgery 09/24/19 Surveillance Manager Relationship Specialty Start Date End Date Yassine Link MD [address] [place] [address] PCP - General 02/15/07 Florin Patel MD [address] [place] [address] Referring General Surgery 07/25/18 Bartolo Gonzalez MD [address] [place] [address] Referring General Surgery 09/24/19 Surveillance Manager Relationship Specialty Start Date End Date Yassine Link MD [address] [place] [address] PCP - General 02/15/07 Florin Patel MD [address] [place] [address] Referring General Surgery 07/25/18 Bartolo Gonzalez MD [address] [place] [address] Referring General Surgery 09/24/19 Surveillance Manager Relationship Specialty Start Date End Date Yassine Link MD [address] [place] [address] PCP - General 02/15/07 Florin Patel MD [address] [place] [address] Referring General Surgery 07/25/18 Bartolo Gonzalez MD [address] [place] [address] Referring General Surgery 09/24/19 Surveillance Manager Relationship Specialty Start Date End Date Yassine Link MD [address] [place] [address] PCP - General 02/15/07 Florin Patel MD [address] [place] [address] Referring General Surgery 07/25/18 Bartolo Gonzalez MD [address] [place] [address] Referring General Surgery 09/24/19 Surveillance Manager Relationship Specialty Start Date End Date Yassine Link MD [address] [facility] [place] [address] PCP - General 02/15/07 Florin Patel MD [address] [facility] [place] [address] Referring General Surgery 07/25/18 Bartolo Gonzalez MD [address] [place] [address] Referring General Surgery 09/24/19 Surveillance Manager Relationship Specialty Start Date End Date Yassine Link MD [address] [facility] [place] [address] PCP - General 02/15/07 Florin Patel MD [address] [place] [address] Referring General Surgery 07/25/18 Bartolo Gonzalez MD [address] [place] [address] Referring General Surgery 09/24/19 Surveillance Manager Relationship Specialty Start Date End Date Yassine Link MD [address] [facility] [place] [address] PCP - General 02/15/07 Florin Patel MD [address] [place] [address] Referring General Surgery 07/25/18 Bartolo Gonzalez MD [address] [facility] [address] [place] [address] Referring General Surgery 09/24/19 Beatrice Watters, SLOTS MANAGER.APPLICATIONS SYSTEMS ENGINEER [address] [place] [address] Agricultural Equipment Mechanic Internal Medicine 11/03/24 Surveillance Manager Relationship Specialty Start Date End Date Yassine Link MD [address] [place] [address] PCP - General 02/15/07 Florin Patel MD [address] [place] [address] Referring General Surgery 07/25/18 Bartolo Gonzalez MD [address] [facility] [address] [place] [address] Referring General Surgery 09/24/19 Beatrice Watters, SLOTS MANAGER.APPLICATIONS SYSTEMS ENGINEER [address] [place] [address] Agricultural Equipment Mechanic Internal Medicine 11/03/24 Surveillance Manager Relationship Specialty Start Date End Date Yassine Link MD [address] [place] [address] PCP - General 02/15/07 Florin Patel MD [address] [place] [address] Referring General Surgery 07/25/18 Bartolo Gonzalez MD [address] [facility] [address] [place] [address] Referring General Surgery 09/24/19 Beatrice Watters, SLOTS MANAGER.APPLICATIONS SYSTEMS ENGINEER [address] [place] [address] Agricultural Equipment Mechanic Internal Medicine 11/03/24 Surveillance Manager Relationship Specialty Start Date End Date Yassine Link MD [address] [place] [address] PCP - General 02/15/07 Florin Patel MD [address] [place] [address] Referring General Surgery 07/25/18 Bartolo Gonzalez MD [address] [place] [address] [place] [address] Referring General Surgery 09/24/19 Beatrice Watters, SLOTS MANAGER.APPLICATIONS SYSTEMS ENGINEER [address] [place] [address] Agricultural Equipment Mechanic Internal Medicine 11/03/24 Surveillance Manager Relationship Specialty Start Date End Date Yassine Link MD [address] [place] [address] PCP - General 02/15/07 Florin Patel MD [address] [place] [address] Referring General Surgery 07/25/18 Bartolo Gonzalez MD [address] [place] [address] Referring General Surgery 09/24/19 Beatrice Watters, SLOTS MANAGER.APPLICATIONS SYSTEMS ENGINEER [address] [facility] [place] [address] Agricultural Equipment Mechanic Internal Medicine 11/03/24 Surveillance Manager Relationship Specialty Start Date End Date Yassine Link MD [address] [facility] [place] [address] PCP - General 02/15/07 Florin Patel MD [address] [place] [address] Referring General Surgery 07/25/18 Bartolo Gonzalez MD [address] [address] Referring General Surgery 09/24/19 Beatrice Watters, SLOTS MANAGER.APPLICATIONS SYSTEMS ENGINEER [address] [facility] [place] [address] [facility] Internal Medicine 11/03/24 Surveillance Manager Relationship Specialty Start Date End Date Yassine Link MD [address] [place] [address] PCP - General 02/15/07 Florin Patel MD [address] [place] [address] Referring General Surgery 07/25/18 Bartolo Gonzalez MD [address] [place] [address] Referring General Surgery 09/24/19 Beatrice Watters, SLOTS MANAGER.APPLICATIONS SYSTEMS ENGINEER [address] [place] [place] [address] Agricultural Equipment Mechanic Internal Medicine 11/03/24 Surveillance Manager Relationship Specialty Start Date End Date Yassine Link MD [address] [place] [place] [address] PCP - General 02/15/07 Florin Patel MD [address] [place] [address] Referring General Surgery 07/25/18 Bartolo Gonzalez MD [address] [place] [address] Referring General Surgery 09/24/19 Beatrice Watters, SLOTS MANAGER.APPLICATIONS SYSTEMS ENGINEER [address] [place] [address] Agricultural Equipment Mechanic Internal Medicine 11/03/24 Surveillance Manager Relationship Specialty Start Date End Date Yassine Link MD [address] [place] [address] PCP - General 02/15/07 Florin Patel MD [address] [place] [address] Referring General Surgery 07/25/18 Bartolo Gonzalez MD [address] [facility] [place] [address] Referring General Surgery 09/24/19 Beatrice Watters, SLOTS MANAGER.APPLICATIONS SYSTEMS ENGINEER [address] [place] [address] Agricultural Equipment Mechanic Internal Medicine 11/03/24 Surveillance Manager Relationship Specialty Start Date End Date Yassine Link MD [address] [place] [address] PCP - General 02/15/07 Florin Patel MD [address] [place] [address] Referring General Surgery 07/25/18 Bartolo Gonzalez MD [address] [place] [address] Referring General Surgery 09/24/19 Beatrice Watters, SLOTS MANAGER.APPLICATIONS SYSTEMS ENGINEER [address] [place] [address] Agricultural Equipment Mechanic Internal Medicine 11/03/24 Surveillance Manager Relationship Specialty Start Date End Date Yassine Link MD [address] [place] [address] PCP - General 02/15/07 Florin Patel MD [address] [place] [address] Referring General Surgery 07/25/18 Bartolo Gonzalez MD [address] [place] [address] Referring General Surgery 09/24/19 Beatrice Watters, SLOTS MANAGER.APPLICATIONS SYSTEMS ENGINEER [address] [place] [place] [address] Agricultural Equipment Mechanic Internal Medicine 11/03/24 Surveillance Manager Relationship Specialty Start Date End Date Yassine Link MD [address] [place] [place] [address] PCP - General 02/15/07 Florin Patel MD [address] [place] [address] Referring General Surgery 07/25/18 Bartolo Gonzalez MD [address] [place] [address] Referring General Surgery 09/24/19 Beatrice Watters, SLOTS MANAGER.APPLICATIONS SYSTEMS ENGINEER [address] [facility] [place] [address] Agricultural Equipment Mechanic Internal Medicine 11/03/24 Surveillance Manager Relationship Specialty Start Date End Date Yassine Link MD [address] [place] [place] [address] PCP - General 02/15/07 Florin Patel MD [address] [place] [address] Referring General Surgery 07/25/18 Bartolo Gonzalez MD [address] [facility] [address] [place] [address] Referring General Surgery 09/24/19 Beatrice Watters, SLOTS MANAGER.APPLICATIONS SYSTEMS ENGINEER [address] [facility] [place], [place] [address] [facility] Internal Medicine 11/03/24 Surveillance Manager Relationship Specialty Start Date End Date Yassine Link MD [address] [facility] [place], [place] [address] PCP - General 02/15/07 Florin Patel MD [address] [facility], [place] [address] Referring General Surgery 07/25/18 Bartolo Gonzalez MD [address], [place] [address] Referring General Surgery 09/24/19 Beatrice Watters, SLOTS MANAGER.APPLICATIONS SYSTEMS ENGINEER [address] [facility] [place], [place] [address] [facility] Internal Medicine 11/03/24 Team Status: Active Member Role Status Dates Dr. Yassine Link MD Primary Care Provider Active Team Status: Inactive Member Role Status Dates Dr. Yassine Link MD Primary Care Provider Active Start: January 15, 2025 End: January 15, 2025 Ed Physician Provider Attending Provider Active Start: January 15, 2025 End: January 15, 2025 Ed Physician Provider Emergency Provider Active Start: January 15, 2025 End: January 15, 2025 Team Status: Inactive Member Role Status Dates Dr. Yassine Link MD Primary Care Provider Active Start: January 20, 2025 End: January 20, 2025 Dr. Romelia Cunningham MD Attending Provider Active Start: January 20, 2025 End: January 20, 2025 Dr. Romelia Cunningham MD Referring Provider Active Start: January 20, 2025 End: January 20, 2025 Team Status: Inactive Member Role Status Dates Dr. Yassine Link MD Primary Care Provider Active Start: February 13, 2025 End: February 13, 2025 Dr. Jamarcus Persaud , DO Emergency Provider Active Start: February 13, 2025 End: February 13, 2025 Surveillance Manager Relationship Specialty Start Date End Date Yassine Link MD [address] [place] [address] PCP - General 02/15/07 Florin Patel MD [address] [place] [address] Referring General Surgery 07/25/18 Bartolo Gonzalez MD [address] [facility] [address] [place] [address] Referring General Surgery 09/24/19 Beatrice Watters, SLOTS MANAGER.APPLICATIONS SYSTEMS ENGINEER [address] [place] [address] Agricultural Equipment Mechanic Internal Medicine 11/03/24 Surveillance Manager Relationship Specialty Start Date End Date Yassine Link MD [address] [place] [address] PCP - General 02/15/07 Florin Patel MD [address] [place] [address] Referring General Surgery 07/25/18 Bartolo Gonzalez MD [address] [facility] [address] [place] [address] Referring General Surgery 09/24/19 Beatrice Watters, SLOTS MANAGER.APPLICATIONS SYSTEMS ENGINEER [address] [place] [address] Agricultural Equipment Mechanic Internal Medicine 11/03/24 Surveillance Manager Relationship Specialty Start Date End Date Yassine Link MD [address] [place] [address] PCP - General 02/15/07 Florin Patel MD [address] [place] [address] Referring General Surgery 07/25/18 Bartolo Gonzalez MD [address] [place] [address] Referring General Surgery 09/24/19 Beatrice Watters, SLOTS MANAGER.APPLICATIONS SYSTEMS ENGINEER [address] [place] [address] [facility] Internal Medicine 11/03/24 Surveillance Manager Relationship Specialty Start Date End Date Yassine Link MD [address] [place] [address] PCP - General 02/15/07 Florin Patel MD [address] [place] [address] Referring General Surgery 07/25/18 Bartolo Gonzalez MD [address] [facility] [address] [place] [address] Referring General Surgery 09/24/19 Beatrice Watters, SLOTS MANAGER.APPLICATIONS SYSTEMS ENGINEER [address] [place] [address] [facility] Internal Medicine 11/03/24 Surveillance Manager Relationship Specialty Start Date End Date Yassine Link MD [address] [place] [address] PCP - General 02/15/07 Florin Patel MD [address] [place] [address] Referring General Surgery 07/25/18 Bartolo Gonzalez MD [address] [place] [address] Referring General Surgery 09/24/19 Beatrice Watters, SLOTS MANAGER.APPLICATIONS SYSTEMS ENGINEER [address] [place] [address] Agricultural Equipment Mechanic Internal Medicine 11/03/24 Surveillance Manager Relationship Specialty Start Date End Date Yassine Link MD [address] [place] [address] PCP - General 02/15/07 Florin Patel MD [address] [place] [address] Referring General Surgery 07/25/18 Bartolo Gonzalez MD [address] [facility] [address] [place] [address] Referring General Surgery 09/24/19 Beatrice Watters, SLOTS MANAGER.APPLICATIONS SYSTEMS ENGINEER [address] [place] [address] Agricultural Equipment Mechanic Internal Medicine 11/03/24 Surveillance Manager Relationship Specialty Start Date End Date Yassine Link MD [address] [place] [address] PCP - General 02/15/07 Florin Patel MD [address] [place] [address] Referring General Surgery 07/25/18 Bartolo Gonzalez MD [address] [place] [address] Referring General Surgery 09/24/19 Beatrice Watters, SLOTS MANAGER.APPLICATIONS SYSTEMS ENGINEER [address] [place] [address] Agricultural Equipment Mechanic Internal Medicine 11/03/24 Surveillance Manager Relationship Specialty Start Date End Date Yassine Link MD [address] [place] [address] PCP - General 02/15/07 Florin Patel MD [address] [place] [address] Referring General Surgery 07/25/18 Bartolo Gonzalez MD [address] [place] [address] Referring General Surgery 09/24/19 Beatrice Watters, SLOTS MANAGER.APPLICATIONS SYSTEMS ENGINEER [address] [place] [address] Agricultural Equipment Mechanic Internal Medicine 11/03/24 Surveillance Manager Relationship Specialty Start Date End Date Yassine Link MD [address] [place] [address] PCP - General 02/15/07 Florin Patel MD [address] [place] [address] Referring General Surgery 07/25/18 Bartolo Gonzalez MD [address] [place] [address] Referring General Surgery 09/24/19 Beatrice Watters, SLOTS MANAGER.APPLICATIONS SYSTEMS ENGINEER [address] [place] [address] Agricultural Equipment Mechanic Internal Medicine 11/03/24 Surveillance Manager Relationship Specialty Start Date End Date Yassine Link MD [address] [place] [address] PCP - General 02/15/07 Florin Patel MD [address] [place] [address] Referring General Surgery 07/25/18 Bartolo Gonzalez MD [address] [place] [address] Referring General Surgery 09/24/19 Beatrice Watters, SLOTS MANAGER.APPLICATIONS SYSTEMS ENGINEER [address] [place] [address] Agricultural Equipment Mechanic Internal Medicine 11/03/24 Surveillance Manager Relationship Specialty Start Date End Date Yassine Link MD [address] [place] [address] PCP - General 02/15/07 Florin Patel MD [address] [place], [place] [address] Referring General Surgery 07/25/18 Bartolo Gonzalez MD [address] [place], [place] [address] Referring General Surgery 09/24/19 Beatrice Watters, SLOTS MANAGER.APPLICATIONS SYSTEMS ENGINEER [address] [facility] [place], [place] [address] Agricultural Equipment Mechanic Internal Medicine 11/03/24 Team Status: Active Member Role/Relationship Status Dates Dr. Yassine Link MD Primary care physician Activ e Team Status: Inactive Member Role/Relationship Status Dates Dr. Yassine Link MD Primary care physician Activ e Start: May 26, 2025 Dr. Tiffany Vale MD Attending physician Active Start: May 26, 2025 Team Status: Inactive Member Role/Relationship Status Dates Dr. Yassine Link MD Primary care physician Activ e Start: August 23, 2025 End: August 23, 2025 Dr. Roberto Murillo DO Emergency Department Physician Active Start: August 23, 2025 End: August 23, 2025 Goals (unrecognized section and content) Goals may be documented in a n alternate sectionGoals may be documented in an alternate sectionGoals may be documented in an alternate sectionGoals may be documented in an alternate sectionGoals may be documented in an alternate sectionGoals may be documented in an alternate sectionGoals may be documented in an alternate sectionGoals may be documented in an alternate sectionGoals may be documented in an alternate sectionGoals may be documented in an alternate sectionGoals may be documented in an alternate sectionGoals may be documented in an alternate sectionGoals may be documented in an alternate sectionGoals may be documented in an alternate sectionGoals may be documented in an alternate section No data available for this sectionGoals may be documented in an alternate sectionGoals may be documented in an alternate sectionGoals may be documented in an alternate sectionGoals may be documented in an alternate section No data available for this sectionGoals may be documented in an alternate sectionGoals may be documented in an alternate sectionGoals may be documented in an alternate sectionGoals may be documented in an alternate section No data available for this sectionGoals may be documented in an alternate section No data available for this sectionGoals may be documented in an alternate sectionGoals may be documented in an alternate section No data available for this sectionGoals may be documented in an alternate section FOR RECORDS PERTAINING TO PATIENTS WHO ARE [...] BE BASED ON THE PRIMARY CLINICAL RECORDS. [facility] [employer] [facility]. provides no warranty or guarantee of the accuracy or completeness of information in this document.
--- NOTE | 2025-09-12 10:33 | EDS_ITS ---
HPI History of Present Illness Chief Complaint: Upper Extremity Injury Narrative Narrative: 39-year-old female, [id number], presents with right shoulder pain that she has had for the last few months. She relates history that she had an injury at work through [employer] that was evaluated. 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 She states that her case was closed a few weeks ago and that she only had been on Workmen's Compensation for about 2 weeks. She followed up with her primary care provider, Dr. Link. She presents stating that they think that she may have torn her rotator cuff. She has been doing her exercises and improving, but continued to use her right shoulder. She states the pain is getting worse. She is on meloxicam and naproxen, and was on oxycodone. She states that she ran out of her oxycodone a week or so ago. She presents for analgesia. No new injury, no trauma or fall. Pain worse with movement. [facility] Medical History PTSD (post-traumatic stress disorder) Left shoulder strain H/O thoracic outlet syndrome Thoracic outlet syndrome IBS (irritable bowel syndrome) GERD (gastroesophageal reflux disease) Anxiety Depression Home Medications ?Medication ?Instructions ?Recorded ?Last Taken ?Type estradiol 1 mg tablet 1 mg PO DAILY 11/19/2311/19 History estradiol 2 mg tablet 2 mg PO DAILY 11/19/2311/19 History ondansetron 4 mg disintegrating 4 mg PO Q8H PRN PRN Na usea #14 tabs 03/02/24 Unknown Rx tablet hydrocodone-acetaminophen 5-325mg 1 tab PO Q4H PRN PRN Pain 3 days 04/25/24 Unknown Rx 5mg-325mg #7 TABLETS codeine 10 mg-guaifenesin 200 mg/5 5 ml PO Q6H PRN cou gh #473 mL 02/13/25 Unknown Rx mL oral liquid lidocaine 5 % topical patch 1 patch topical DAILY 3 da ys #3 ea 08/23/25 Unknown Rx orphenadrine citrate 100 mg 100 mg PO BID 5 days #10 t abs 08/23/25 Unknown Rx tablet,extended release oxycodone 5 mg tablet 5 mg PO Q6H PRN pain 3 days #12 09/12/25 Unknown Rx tabs Allergy/AdvReac Type Severity Reaction Status Date / Time benzonatate (From Tessalon Allergy Rash Verified 09/12/25 10:01 Perles) diazepam (From Valium) Allergy Hives Verified 09/12/25 10:01 morphine Allergy Itching Verified 09/12/25 10:01 Penicillins Allergy Hives Verified 09/12/25 10:01 venom-honey bee (bee venom Allergy Hives Verified 09/12/25 10:01 (honey bee)) Family History Father Heart disease Hypertension Myocardial infarction Mother Cancer lung, throat and Lupus Surgical History History of left oophorectomy S/P breast biopsy History of esophagogastroduodenoscopy (EGD) S/P colonoscopy Status post hysterectomy Social History household members: none Smoking Status: Current every day smoker tobacco type: cigarettes alcohol intake: current alcohol intake frequency: holidays/special occasions only substance use type: marijuana caffeine: Yes what type of physical activity do you participate in: none seatbelt use: sometimes do you feel safe at home: Yes additional social history: Boyfriend-Sha- Works at [employer] Patient works at [employer] ROS ROS ED ROS Narrative Review of systems positive for right shoulder pain worse with movement. Sharp and stabbing. No new injury or trauma. [id number]. EXAM Physical Exam Narrative Exam Narrative: GCS 15. ABCs intact. Afebrile. Vital signs noted. Nontoxic-appearing. Cardiovascular examination regular rate and rhythm. Lungs are clear to auscultation bilaterally. Focused examination of the right shoulder shows diffuse tenderness to palpation mainly in the bicipital groove of the right shoulder. She appears neurovascularly intact distally with palpable radial pulse. Full range of motion of elbow and wrist. Able to oppose thumb. Can serrano se arm to approximately 45 degrees. No crepitance. Const Vital Signs: 09/12/25 09:59 Temperature 97.6 F L Temperature Source Oral Pulse Rate 68 Respiratory Rate 18 Blood Pressure 115/71 Blood Pressure Mean 85 Pulse Ox 100 Oxygen Delivery Method Room Air MDM MDM MDM Narrative Medical decision making narrative: The differential diagnosis includes but not limited to bursitis versus tendinitis versus rotator cuff tear. I have low clinical suspicion for fracture or dislocation based on the history and physical. I reviewed her OARRS report. She initially received 9 tablets on September 02 for 3 days, then again 6 tablets on the for 3 days of Percocet. Hence, she recently ran out. I discussed with the patient that further narcotic pain medication should come from her primary care provider or orthopedics, and not the emergency department. However, as this is the weekend I did write her a prescription for 12 tablets to get her through the next 3 days to take every 6 hours. She was referred to orthopedics on-call, Dr. Moran as she states that she was trying to get in at [facility] and did not want to go to a [facility] orthopedic physician. I do not feel that she requires any laboratory work or imaging. I feel she can be discharged to follow-up. This is the same pain that she has been having reportedly for months. Return instructions to the emergency department were reviewed. Disposition is discharged home in stable condition. History & Record Review Discussion w/independent historian: Patient Additional record(s) reviewed:: Other (OARRS report) Discharge Plan Triage Chief Complaint: Upper Extremity Injury ED Provider: Pk Churchill Dx/Rx/DC Orders Clinical Impression: Pain in right shoulder, Tendinitis of right shoulder Instructions: ED Shoulder Pain, Uncertain Cause Prescriptions: New oxycodone 5 mg tablet 5 mg PO Q6H PRN (Reason: pain) 3 Days Qty: 12 0RF No Action estradiol 1 mg tablet 1 mg PO DAILY estradiol 2 mg tablet 2 mg PO DAILY hydrocodone-acetaminophen 5-325 mg tablet 1 tab PO Q4H PRN PRN (Reason: Pain) 3 Days Qty: 7 0RF lidocaine 5 % adhesive patch,medicated 1 patch topical DAILY 3 Days Qty: 3 0RF Rx Instructions: leave on most painful area for up to 12 hrs orphenadrine citrate 100 mg tablet extended release 100 mg PO BID 5 Days Qty: 10 0RF ondansetron 4 mg tablet,disintegrating 4 mg PO Q8H PRN PRN (Reason: Nausea) Qty: 14 0RF codeine-guaifenesin 10-200 mg/5 mL liquid 5 ml PO Q6H PRN (Reason: cough) Qty: 473 0RF Primary Care Provider: Yassine Link Referrals: Reza Moran DO [Med Staff - Active Staff, Orthopedics] - As soon as possible Yassine Link MD [Primary Care Provider, Internal Medicine] - 3-5 Days Activity Restrictions/Additional Instructions: Continue your anti-inflammatory as previously directed. Further narcotic should come from your primary care provider or orthopedics. Follow-up with orthopedics as soon as possible. Print Language: Divehi Disposition Disposition: Home, Self Care
== END 2025-09-12 10:47 | disposition home or self-care (01) ==
PROVIDERS: Emergency Provider Emergency Medicine; PCP Internal Medicine; Visit Provider Emergency Medicine
DX: M25.511 Pain in right shoulder (principal); M75.81 Other shoulder lesions, right shoulder; F17.210 Nicotine dependence, cigarettes, uncomplicated
CPT/HCPCS: 99282

== ENCOUNTER → 2025-09-15 | Outpatient (CLI) | payer MEDICAID, SELFPAY ==
--- NOTE | 2025-09-15 17:11 | RAD_ITS ---
PROCEDURE: SHOULDER MIN 2 VIEWS 09/15/2025 REASON FOR EXAM: PAIN TECHNIQUE: Procedure Code: RADSH Modality: DX Procedure: SHOULDER MIN 2 VIEWS Laterality: Right COMPARISON: None RAD/Shoulder min 2 Views IMPRESSION: No acute fracture or dislocations. No acute soft tissue abnormalities. No radiographic foreign body. Reading Location: [id number]
--- OUTSIDE RECORDS SUMMARY | 2025-09-15 17:18 | XMS RPT_ITS | CCD ---
Author Organization [facility] Care Team Providers Care Mortgage Protection Specialist Name Role Phone Yassine Link MD Primary [...] DR METZGER Primary Care Unavaila helena Watters APRN.RACING CAR DRIVER, Beatrice M Unavailable MALLORY MARRERO Referring YASSINE Quezada Primary Care Unavailable GERTRUDE HENRY Admitting Unavailable GERTRUDE HENRY Attending Isidra Link MD, Dr. Metzger Primary Care Provider Provider, Ed Physician Attending Provider Parvez quintanilla Provider, Ed Physician Emergency Provider Parvez Cunningham MD, Dr. Romelia Cox Attending Provider Dr. Romelia Cunningham MD Referring Provider Dr. Jamarcus Persaud DO Emergency Provider ROMELIA CUNNINGHAM MD Attending ROMELIA Quinones MD Consulting Isidra LINK MD, DR METZGER Primary Care Unavaila helena HERRERA DO, ULISES Attending Unavailable NIKOLAY SAMANIEGO, DR METZGER Primary Care Unavaila ble NIKOLAY SAMANIEGO, DR METZGER Primary Care Unavaila helena DAWSON DIAMOND FINISHING SUPERVISOR-RACING CAR DRIVER, MELISSA Attending Unavail able SAMIR SORENSEN-RACING CAR DRIVER, MELISSA Admitting Unavail brayan Link MD, Dr. Metzger Primary Care Physician Kavin SAMANIEGO, Dr. Allen Attending Physician [facility], Dr. Mejia Emergency Departmen t Physician LINK, STEVIE Primary Care Unavailable GANTA, MAYDA [...] Attending Unavailable LINK, STEVIE Primary Care Unavailable Link, Yassine Primary Care Unavailable Provider, Ed Physician Attending Unavailab Romelia Kramer Attending Unavailable Romelia Cunningham Referring Unavailable Link, Yassine Primary Care Unavailable Roberto Murillo Attending Unavailrichar e Link, Yassine Primary Care Unavailable Link, Yassine Referring Unavailable Link, Yassine Primary Care Unavailable Elier Clark Attending Unavailable Link, Yassine Referring Unavailable Link, Yassine Primary Care Unavailable Elier Clark Attending Unavailable Link, Yassine Referring Unavailable Link, Yassine Primary Care Unavailable Elier Clark Attending Unavailable Yassine Link Primary Care Unavailable Pk Churchill Attending Unavailable Jamarcus Persaud Attending Unavailable Yassine Link Primary [facility] Unavailable Allergies Allergy Classification Reported Allergen(s) Allergy Type Date of Onset Reaction(s) Facility Benzodiazepines (1 source) diazePAM Drug Allergy 5 [facility] benzonatate (1 source) benzonatate Drug Allergy 7 Rash [facility] Opioid Agonists (1 source) Morphine Drug Allergy 4 Rash [facility] Penicillins (antibiotic) (1 source) Penicillins Drug Allergy 1 Other: See Comments [facility] (20 sources) benzonatate; Translations: [benzonatate] Drug Allergy 7 Rash [facility] Work Phone: (20 sources) diazePAM; Translations: [DIAZEPAM] Drug Allergy 5 [facility] Work Phone: (20 sources) Morphine; Translations: [morphine] Drug Allergy 4 Rash, Itching [facility] (20 sources) Penicillins; Translations: [PENICILLINS] Propensity to adverse reactions to drug 1 Other: See Comments, [facility] Work Phone: (20 sources) Bees; Translations: [BEES] Allergy to substance 1 Anaphylaxis [facility] Work Phone: (20 sources) venom-honey bee Allergy to substance 2 [facility] (20 sources) Penicillins Propensity to adverse reactions to drug 1 Other: See Comments [facility] Work Phone: (20 sources) Penicillins Allergy to substance 2 [facility] (5 sources) Bee/Wasp/Ant venom Allergy to substance swelling [facility] (5 sources) Penicillin; Translations: [penicillin] Drug Allergy [facility] (2 sources) amLODIPine; Translations: [amlodipine] Drug Allergy [facility] (19 sources) Codeine / guaiFENesin; Translations: [CODEINE-GUAIFE NESIN] Drug Allergy 5 Rash [facility] (19 sources) guaiFENesin; Translations: [guaifenesin] Drug Allergy 5 Rash, Weal (disorder) [facility] (17 sources) Penicillins Drug Allergy 1 Other: See Comments, Hives [facility] (1 source) benzonatate Drug Allergy 5 [facility] (1 source) diazePAM Drug Allergy 5 [facility] (1 source) Morphine Drug Allergy 5 [facility] (1 source) Penicillins Drug allergy (disorder) 5 [facility] (1 source) venom-honey bee Drug allergy (disorder) 5 [facility] Medications Current Medications Medication Drug Class(es) [...] for pain for up to 3 days. [id number] 200 actuat albuterol 0.09 mg/actuat metered dose [...] BREATH bazedoxifene 20 mg / estrogens, conjugated (penitentiary) 0.45 mg oral tablet (20 sources) Estrogen [...] Comment on above: Take 1 capsule by [facility] three times a day as needed for [...] contrast guidelines 1 Each 01/20/2025 01/21/2025 Active [id number] 0.3 ml EPINEPHrine 1 mg/ml auto-injector (20 [...] MINUTES IF NOT IMPROVING 84 hr estradiol 0.74964 mg/hr transdermal system (20 sources) Estrogen Start: 03-16-2025 End: 10-12-2025 estradiol 0.075 mg/24 hours twice weekly transdermal film, extended release 1 patch(es), Topical, 2x/Wk, # 8 patch(es), 6 Refill(s), Pharmacy: [id number], 152.4, cm, 03/16/25 8:31:00 EDT, Height, kg, 03/16/25 8:31:00 EDT, Dosing Weight Start Date: 03/16/25 Stop Date: 10/12/25 Status: Ordered Quantity: 8.0 Unit: patch(es) Repeat number: 7 Start: 06-12-2024 End: 12-10-2025 Climara 0.05 mg/24 hours wee davidy transdermal film, extended release Apply 1 patch(es), Topical, qWeek, # 13 patch(es), 3 Refill(s), Pharmacy: [facility], 152, cm, 12/15/24 8:34:00 EST, Height, [...] and Compressor For Neb (17 sources) Start: Nebulizer and Compressor For Neb Indications: Influenza [...] on above: Take 1 capsule by mo [facility] twice daily with meals for 7 [...] Comment on above: Take 1 tablet by [facility] every 6 hours as needed for [...] Start: 02-18-2025 take 1 tablet by ofe twice daily pantoprazole DR (PROTONIX) 40 mg [...] 200 mg oral tablet (8 sources) Start: End: 4 take 1 tablet by mouth [...] days with food. Take 1 tablet by [facility] once daily for 3 days. Testosterone (11 sources) Androgen Start: 12-15-2024 End: 04-14-2025 Testosterone (Eqv-AndroGel Packets) 20.25 mg/1.25 g (1.62%) transdermal gel 1 packet(s), Transdermal, qAM, apply to skin, # 30 packet(s), 3 Refill(s), Pharmacy: [facility], Premature menopause on HRT Low libido, [...] on above: Take 2 tablets by mo [facility] every 8 hours. acetaminophen 325 mg / [...] 1 TABLET PO EVERY 6 HOURS 10 3 September 26, 2022 Comment on above: Take [...] extended release oral capsule (7 sources) Uncompetitive T-escprs-S-aspart ate Receptor Antagonist, Sigma-1 Agonist Start: 02-18-2025 [...] adjustment) Start: 07-15-2022 take 1 capsule by [facility] once daily DULoxetine (CYMBALTA) 20 mg capsule Indications: Thoracic outlet syndrome , Anxiety with depression Take 1 capsule by mouth once daily. 30 capsule 1 07/15/2022 Active Comment on above: Take 1 capsule by mo [facility] once daily. Norgestimate-Ethinyl Estradiol (20 sources) Progestin, [...] Comment on above: Take 1 tablet by [facility] every 6 hours as needed. Toradol LORazepam [...] Comment on above: Take 1 tablet by [facility] once daily. oxyCODONE hydrochloride 5 mg oral [...] HOURS NEEDED as needed for Severe Pain (-09/04) 28 7 October 23, 2018 12:50pm October [...] on above: Take 1 capsule by mo [facility] twice daily for 90 days. Take 1 capsule by mo [facility] daily at bedtime for 180 days. promethazine [...] A DAY as needed for gerd 20 0 November 11, 2023 2:08pm November 19, 2023 [...] on above: TAKE 1 TABLET BY OFE EVERY 12 HOURS FOR 5 DAYS tiZANidine [...] in right foot] Onset: 5 Episodic Other connective tissue disease (1 source) Other shoulder lesions, right shoulder; Translations: [Other shoulder lesions, right shoulder] Onset: 5 Episodic Other diseases of bladder [...] Test Name Value Interpretation Reference Range Facility Emergency Department Summary on 09-12-2025 Emergency Department Summary [facility] Medical Records Department [address] [place] [address] Emergency Department Summary 09/12/25 MR#: [id number] Acct: [id number] Name: ANNE CHUNG Rep #: [id number] : 1985 39 From: Pk Churchill MD PCP: Dr. Yassine Link MD Status:REG ER Location: ED HPI History of Present Illness Chief Complaint: Upper Extremity Injury Narrative Narrative: 39-year-old female, pouzm-xftd-cuzuytbe, presents with right shoulder pain that she has had for the last few months. She relates history that she had an injury at work through [employer] that was evaluated. 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 She states that her case was closed a few weeks ago and that she only had been on Workmen's Compensation for about 2 weeks. She followed up with her primary care provider, Dr. Link. She presents stating that they think that she may have torn her rotator cuff. She has been doing her exercises and improving, but continued to use her right shoulder. She states the pain is getting worse. She is on meloxicam and naproxen, and was on oxycodone. She states that she ran out of her oxycodone a week or so ago. She presents for analgesia. No new injury, no trauma or fall. Pain worse with movement. [facility] Medical History PTSD (post-traumatic stress disorder) Left [...] #473 mL Unknown Rx mL oral liquid lidocaine 5 % topical patch 1 patch topical DAILY 3 days #3 ea 08/23/25 Unknown Rx orphenadrine citrate 100 mg 100 mg PO BID 5 days #10 tabs 07/28 07/20 Unknown Rx tablet,extended release oxycodone 5 mg tablet 5 mg PO Q6H PRN pain 3 days #12 Unknown Rx tabs Allergy/AdvReac Type Severity Reaction Status Date / Time benzonatate (From Tessalon Allergy Rash Verified 09/12/25 10:01 Perles) diazepam (From Valium) Allergy Hives Verified 09/12/25 10:01 morphine Allergy Itching Verified 09/12/25 10:01 Penicillins Allergy Hives Verified 09/12/25 10:01 venom-honey bee (bee venom Allergy Hives Verified 09/12/25 10:01 (honey bee)) Family History Father Heart disease [...] Yes additional social history: Boyfriend-Sha- Works at [employer] Patient works at [employer] ROS ROS ED ROS Narrative Review of systems positive for right shoulder pain worse with movement. Sharp and stabbing. No new injury or trauma. Phgri-fonq-hdullenc. EXAM Physical Exam Narrative Exam Narrative: GCS 15. ABCs intact. Afebrile. Vital signs noted. Nontoxic-appearing. Cardiovascular examination regular rate and rhythm. Lungs are clear to auscultation bilaterally. Focused examination of the right shoulder shows diffuse tenderness to palpation mainly in the bicipital groove of the right shoulder. She appears neurovascularly intact distally with palpable radial pulse. Full range of motion of elbow and wrist. Able to oppose thumb. Can raise arm to approximately 45 degrees. No crepitance. Const Vital Signs: 09/12/25 09:59 Temperature 97.6 F L Temperature Source Oral Pulse Rate 68 Respiratory Rate 18 Blood Pressure 115/71 Blood Pressure Mean 85 Pulse Ox 100 Oxygen Delivery Method Room Air MDM MDM MDM Narrative Medical decision making narrative: The differential diagnosis includes but not limited to bursitis versus tendinitis versus (more content not included)... Normal [facility] 08-25-2025 [facility] Telephone (XRI) ANNE CHUNG ([id number]) 1985 F Date Time Provider Department 08/25/25 OLE BUSH During your visit today, we recorded the [...] Date Reviewed: 08/24/2025 Reviewed by: German Pires APRN.COUNT TEAM CLERK - Fully Assessed Reason for Visit: error [...] FOR WHEEZING OR SHORTNESS OF BREATH - UAGIE 0.075 mg/24 hr patch APPLY 1 PATCH [...] Encounter Status:Closed by ANU VIDAL on 08/25/25 [facility] CNOVon 08-24-2025 CNOV Office Visit (INTMWS ) ANNE CHUNG ([id number]) 1985 F Date Time Provider Department 08/24/25 10:00 AM GERMAN PIRES INTMWS During your visit today, we recorded the following information about you: Pulse Respiration Blood pressure Weight 66/minute 16/minute 100/72 60.1 kg German Pires APRN.COUNT TEAM CLERK 08/24/2025 11:11 AM Signed Subjective Patient ID: Anne is a 39 year old female who presents for Shoulder Injury ([facility] ER gave her lidocaine patches and Mobic is not helping. /Scheduled with ortho next week at [facility]/Starting PT 09/08/25.) and Refill Request (of Ativan). [...] worse at night. - Recent visit to [facility]; provided with lidocaine patches. - Taking meloxicam with partial relief; using ice therapy. - Scheduled for an orthopedic appointment next week; MRI pending. Prior history of left shoulder pain, had thoracic outlet syndrome requiring surgery. Treated with 1st supraclavicular rib, neurolysis at [facility] in 2020; states no issues since [...] symptoms which resolved with surgery. German Pires APRN.COUNT TEAM CLERK Medical Decision Making: Problems: Low: Acute, uncomplicated illness or injury Data: Unique test(s) ordered: 1 Risk: Moderate: Drug management Medical Decision Making Level: 3 - German Flores APRN.COUNT TEAM CLERK 08/24/2025 11:02 AM Signed - Continue taking [...] swelling, was given epipen at ER. CODEINE-GUAIFENESIN 02/16/ (more content not included)... Normal [facility] Emergency Department Summary on 08-23-2025 Emergency Department Summary [facility] Medical Records Department [address] [place] [address] Emergency Department Summary 08/23/25 MR#: [id number] Acct: [id number] Name: ANNE CHUNG Debbie Rep #: [id number] : 1985 39 From: Roberto Murillo DO [...] intact Psych: Cooperative, appropriate mood and affect [facility] Medical History PTSD (post-traumatic stress disorder) Left [...] Yes additional social history: Boyfriend-Sha- Works at [employer] Patient works at [employer] EXAM Physical Exam Const Vital Signs: 08/23/25 [...] worsened. State (more content not included)... Normal [facility] CBC W Auto Differential pane l (Bld)on 08-03-2025 Basophils (Bld) [#/Vol] 0.05 10*3/uL Normal <0.11 [facility] Comment on above: Order Comment: Speci men Type: BLOOD SPECIMENOrdering Facility: [facility] Address: [address] [place] [address] Performed By: #### 5 7021-8 ####[facility] LABCLIA [id number] [facility] AVENUEDESK [id number], [place] [address] [place] Basophils/100 WBC (Bld) 0.6 % Normal [facility] Comment on above: Order Comment: Speci men Type: BLOOD SPECIMENOrdering Facility: [facility] Address: [address] [place] [address] Performed By: #### 5 7021-8 ####[facility] LABCLIA [id number] [facility]INICD AVENUELITT[facility] MARY HOSPITALK [address], [place] [address] [place] Differential cell count method Nom (Bld) Auto Normal [facility] Comment on above: Order Comment: Speci men Type: BLOOD SPECIMENOrdering Facility: [facility] Address: [address] [place] [address] Performed By: #### 5 7021-8 ####[facility] LABCLIA [id number] [facility]IT[facility] [address], [place] [address] [place] Eosinophils (Bld) [#/Vol] 0.17 10*3/uL Normal <0.46 [facility] Comment on above: Order Comment: Speci men Type: BLOOD SPECIMENOrdering Facility: [facility] Address: [address] [place] [address] Performed By: #### 5 7021-8 ####[facility] LABCLIA [id number] [facility] [place] [address] [place] Eosinophils/100 WBC (Bld) 2.2 % Normal [facility] Comment on above: Order Comment: Speci men Type: BLOOD SPECIMENOrdering Facility: [facility] Address: [address] [place] [address] Performed By: #### 5 7021-8 ####[facility] LABCLIA [id number] [address], [place] [address] [place] Erythrocyte distribution width (RBC) [Ratio] 12.5 % Normal 11.5-15.0 [facility] Comment on above: Order Comment: Speci men Type: BLOOD SPECIMENOrdering Facility: [facility] Address: [address] [place] [address] Performed By: #### 5 7021-8 ####[facility] LABIA [id number] [address], [place] [address] [place] Hematocrit (Bld) [Volume fraction] 41.7 % Normal 36.0-46.0 [facility] Comment on above: Order Comment: Speci men Type: BLOOD SPECIMENOrdering Facility: [facility] Address: [address] [place] [address] Performed By: #### 5 7021-8 ####[facility] LABIA [id number] [address], [place] [address] [place] Hemoglobin (Bld) [Mass/Vol] 14.1 g/dL Normal 11.5-15.5 [facility] Comment on above: Order Comment: Speci men Type: BLOOD SPECIMENOrdering Facility: [facility] Address: [address] [place] [address] Performed By: #### 5 7021-8 ####[facility] LABIA [id number] [address], [place] [address] [place] Immature granulocytes (Bld) [#/Vol] 0.04 10*3/uL Normal <0.10 [facility] Comment on above: Order Comment: Speci men Type: BLOOD SPECIMENOrdering Facility: [facility] Address: [address] [place] [address] Performed By: #### 5 7021-8 ####[facility] LABIA [id number] [place] [address] [place] Immature granulocytes/100 WBC (Bld) 0.5 % Normal [facility] Comment on above: Order Comment: Speci men Type: BLOOD SPECIMENOrdering Facility: [facility] Address: [address] [place] [address] Performed By: #### 5 7021-8 ####[facility] LABCLIA [id number] [place] [address] [place] Lymphocytes (Bld) [#/Vol] 3.05 10*3/uL Normal 1.00-4.00 [facility] Comment on above: Order Comment: Speci men Type: BLOOD SPECIMENOrdering Facility: [facility] Address: [address] [place] [address] Performed By: #### 5 7021-8 ####[facility] LABCLIA [id number] [place] [address] [place] Lymphocytes/100 WBC (Bld) 39.2 % Normal [facility] Comment on above: Order Comment: Speci men Type: BLOOD SPECIMENOrdering Facility: [facility] Address: [address] [place] [address] Performed By: #### 5 7021-8 ####[facility] LABCLIA [id number] [place] [address] [place] MCH (RBC) [Entitic mass] 32.8 pg Normal 26.0-34.0 [facility] Comment on above: Order Comment: Speci men Type: BLOOD SPECIMENOrdering Facility: [facility] Address: [address] [place] [address] Performed By: #### 5 7021-8 ####[facility] LABCLIA [id number] [place] [address] [place] MCHC (RBC) [Mass/Vol] 33.8 g/dL Normal 30.5-36.0 [facility] Comment on above: Order Comment: Speci men Type: BLOOD SPECIMENOrdering Facility: [facility] Address: [address] [place] [address] Performed By: #### 5 7021-8 ####[facility] LABCLIA [id number] [place] [address] [place] MCV (RBC) [Entitic vol] 97.0 fL Normal 80.0-100.0 [facility] Comment on above: Order Comment: Speci men Type: BLOOD SPECIMENOrdering Facility: [facility] Address: [address] [place] [address] Performed By: #### 5 7021-8 ####[facility] LABIA [id number] [place] [address] [place] Monocytes (Bld) [#/Vol] 0.41 10*3/uL Normal <0.87 [facility] Comment on above: Order Comment: Speci men Type: BLOOD SPECIMENOrdering Facility: [facility] Address: [address] [place] [address] Performed By: #### 5 7021-8 ####[facility] LABIA [id number] [place] [address] [place] Monocytes/100 WBC (Bld) 5.3 % Normal [facility] Comment on above: Order Comment: Speci men Type: BLOOD SPECIMENOrdering Facility: [facility] Address: [address] [place] [address] Performed By: #### 5 7021-8 ####[facility] LABCLIA [id number] [place] [address] [place] Neutrophils (Bld) [#/Vol] 4.06 10*3/uL Normal 1.45-7.50 [facility] Comment on above: Order Comment: Speci men Type: BLOOD SPECIMENOrdering Facility: [facility] Address: [address] [place] [address] Performed By: #### 5 7021-8 ####[facility] LABCLIA [id number] [address] [place] [address] [place] Neutrophils/100 WBC (Bld) 52.2 % Normal [facility] Comment on above: Order Comment: Speci men Type: BLOOD SPECIMENOrdering Facility: [facility] Address: [address] [place] [address] Performed By: #### 5 7021-8 ####[facility] LABCLIA [id number] [address], [place] [address] [place] Nucleated RBC (Bld) [#/Vol] 10*3/uL Normal <0.01 [facility] Comment on above: Order Comment: Speci men Type: BLOOD SPECIMENOrdering Facility: [facility] Address: [address] [place] [address] Performed By: #### 5 7021-8 ####[facility] LABCLIA [id number] [address], [place] [address] [place] Nucleated RBC/100 WBC (Bld) [Ratio] 0.0 /100 WBC Normal [facility] Comment on above: Order Comment: Speci men Type: BLOOD SPECIMENOrdering Facility: [facility] Address: [address] [place] [address] Performed By: #### 5 7021-8 ####[facility] LABCLIA [id number] [address], [place] [address] [place] Platelet mean volume (Bld) [Entitic vol] 11.8 fL Normal 9.0-12.7 [facility] Comment on above: Order Comment: Speci men Type: BLOOD SPECIMENOrdering Facility: [facility] Address: [address] [place] [address] Performed By: #### 5 7021-8 ####[facility] LABCLIA [id number] [address] [place] [address] [place] Platelets (Bld) [#/Vol] 199 10*3/uL Normal 150-400 [facility] Comment on above: Order Comment: Speci men Type: BLOOD SPECIMENOrdering Facility: [facility] Address: [address] [place] [address] Performed By: #### 5 7021-8 ####[facility] LABIA [id number] [place] [address] [place] RBC (Bld) [#/Vol] 4.30 10*6/uL Normal 3.90-5.20 [facility] Comment on above: Order Comment: Speci men Type: BLOOD SPECIMENOrdering Facility: [facility] Address: [address] [place] [address] Performed By: #### 5 7021-8 ####[facility] LABIA [id number] [place] [address] [place] WBC (Bld) [#/Vol] 7.78 10*3/uL Normal 3.70-11.00 [facility] Comment on above: Order Comment: Speci men Type: BLOOD SPECIMENOrdering Facility: [facility] Address: [address] [place] [address] Performed By: #### 5 7021-8 ####[facility] LABIA [id number] [place] [address] [place] CNPTanya 08-03-2025 [facility] Telephone (INTWS) ANNE CHUNG ([id number]) 1985 F Date Time Provider Department 08/03/25 GERMAN PIRESWS During your visit today, we recorded the [...] for her pharmacy. Please advise German Pires APRN.COUNT TEAM CLERK 08/03/2025 12:46 PM Signed There were no concerning findings on the x-ray. No acute fracture or dislocation identified. Acromioclavicular joint intact. Peripherally calcified phlebolith in the subcutaneous fat of the upper arm." Phleboliths are small, calcified deposits that form [...] time. Below results sent to Patient through [employer]. Leticia Holden LPN, LPN 08/17/2025 10:12 AM Signed Patient review results through [employer]. Leticia Persaud LPN Allergies As of Date: [...] initial encounter [T24.201A] Order(s):CONSULT TO PHYSICAL THERAPY [9063] Order #: [id number]: 1 FUTURE meloxicam (MOBIC) 15 mg tabletTake [...] quadrant [ (more content not included)... Normal [facility] Comprehensive metabolic 2000 panelon 08-03-2025 Albumin [Mass/Vol] 4.1 g/dL Normal 3.9-4.9 [facility] [place] [facility] Comment on above: Order Comment: Speci men Type: BLOOD SPECIMENOrdering Facility: [facility] Address: [address] [place] [address] Performed By: #### 2 4323-8, 3 ####[facility] LABCLIA [id number] [place] [address] [place] ALP [Catalytic activity/Vol] 88 U/L Normal 34-123 [facility] Comment on above: Order Comment: Speci men Type: BLOOD SPECIMENOrdering Facility: [facility] Address: [address] [place], [place] [address] Performed By: #### 2 4323-8, 6-3 ####[facility] LABCLIA [id number] [place] [id number] [place] ALT [Catalytic activity/Vol] 15 U/L Normal 7-38 [facility] Comment on above: Order Comment: Speci men Type: BLOOD SPECIMENOrdering Facility: [facility] Address: [address] [place], [place] [address] Performed By: #### 2 4323-8, 6-3 ####[facility] LABCLIA [id number] [address] [address] [place] Anion gap [Moles/Vol] 13 mmol/L Normal 8-15 [facility] Comment on above: Order Comment: Speci men Type: BLOOD SPECIMENOrdering Facility: [facility] Address: [address] [place], [place] [address] Performed By: #### 2 4323-8, 3015-3 ####[facility] LABCLIA [id number] [place] [id number] [place] AST [Catalytic activity/Vol] 17 U/L Normal 13-35 [facility] Comment on above: Order Comment: Speci men Type: BLOOD SPECIMENOrdering Facility: [facility] Address: [address] [place], [place] [address] Performed By: #### 2 4323-8, 3015-3 ####[facility] LABCLIA [id number] [place] [id number] [place] Bilirubin [Mass/Vol] 0.2 mg/dL Normal 0.2-1.3 [facility] Comment on above: Order Comment: Speci men Type: BLOOD SPECIMENOrdering Facility: [facility] Address: [address] [place], [place] [address] Performed By: #### 2 4323-8, 3015-3 ####[facility] LABCLIA [id number] [address] [address] [place] Calcium [Mass/Vol] 9.4 mg/dL Normal 8.5-10.2 [facility] [place] [facility] Comment on above: Order Comment: Speci men Type: BLOOD SPECIMENOrdering Facility: [facility] Address: [address] [place], [place] [address] Performed By: #### 2 4323-8, 3015-3 ####[facility] LABCLIA [id number] [address] [address] [place] Chloride [Moles/Vol] 105 mmol/L Normal 98-107 [facility] Comment on above: Order Comment: Speci men Type: BLOOD SPECIMENOrdering Facility: [facility] Address: [address] [place] [address] Performed By: #### 2 4323-8, 3016-3 ####[facility] LABIA [id number] [place] [id number] [place] CO2 [Moles/Vol] 23 mmol/L Normal 22-30 [facility] Comment on above: Order Comment: Speci men Type: BLOOD SPECIMENOrdering Facility: [facility] Address: [address] [place] [address] Performed By: #### 2 4323-8, 3016-3 ####[facility] LABIA [id number] [place] [address] [place] Creatinine [Mass/Vol] 0.63 mg/dL Normal 0.58-0.96 [facility] Comment on above: Order Comment: Speci men Type: BLOOD SPECIMENOrdering Facility: [facility] Address: [address] [place] [address] Performed By: #### 2 4323-8, 3016-3 ####[facility] [id number] [place] [address] [place] eGFRcr SerPlBld CKD-EPI 2020 115 mL/min/1.73m??? Normal >=60 [facility] Comment on above: Order Comment: Speci men Type: BLOOD SPECIMENOrdering Facility: [facility] Address: [address] [place] [address] Result Comment: Iza mated Glomerular Filtration Rate (eGFR) is calculated [...] actual GFR. Performed By: #### 2 4323-8, 3015-3 ####[facility] LABCLIA [id number] [address] [address] [place] Glucose [Mass/Vol] 89 mg/dL Normal 74-99 [facility] [place] [facility] Comment on above: Order Comment: Efrem grant Type: BLOOD SPECIMENOrdering Facility: [facility] Address: [address] [place] [id number] Result Comment: The [place] Diabetes Association (ADA) provides guidance for cutoff [...] Standards of Medical Care in Diabetes 2016, [place] Diabetes Association. Diabetes Care. 2016.39(Suppl 1). Performed By: #### 2 4323-8, 3015-3 ####[facility] LABCLIA [id number] [facility] [address] [address] [place] Potassium [Moles/Vol] 4.2 mmol/L Normal 3.7-5.1 [facility] Comment on above: Order Comment: Efrem grant Type: BLOOD SPECIMENOrdering Facility: [facility] Address: [address] [place] [address] Performed By: #### 2 4323-8, 3015-3 ####[facility] LABCLIA [id number] [facility] ERK [address] [address] [place] Protein [Mass/Vol] 6.6 g/dL Normal 6.3-8.0 [facility] [place] [facility] Comment on above: Order Comment: Speci men Type: BLOOD SPECIMENOrdering Facility: [facility] Address: [address] [place] [address] Performed By: #### 2 4323-8, 3016-3 ####[facility] LABCLIA [id number] [place] [id number] [place] Sodium [Moles/Vol] 141 mmol/L Normal 136-144 [facility] [place] [facility] Comment on above: Order Comment: Speci men Type: BLOOD SPECIMENOrdering Facility: [facility] Address: [address] [place] [address] Performed By: #### 2 4323-8, 6-3 ####[facility] LABIA [id number] [place] [address] [place] Urea nitrogen [Mass/Vol] 11 mg/dL Normal 7-21 [facility] Comment on above: Order Comment: Speci men Type: BLOOD SPECIMENOrdering Facility: [facility] Address: [address] [place] [address] Performed By: #### 2 4323-8, 3016-3 ####[facility] LABIA [id number] [place] [address] [place] TSH SerPl-aCncon 08-03-2025 TSH Qn 1.150 m[IU]/L Normal 0.270-4.20 0 [facility] Comment on above: Order Comment: Speci men Type: BLOOD SPECIMENOrdering Facility: [facility] Address: [address] [place] [address] Result Comment: If t he patient is , TSH reference range varies by gestational period: First Trimester (weeks 9-12): 0.180-2.990 mIU/L Second Trimester: 0.110-3.980 mIU/L Third Trimester: 0.480-4.710 mIU/L Dallin Lewis et al. A Practical Approach for the Verifications and Determination of Site- and Trimester-Specific Reference Intervals for Thyroid Function tests in . Thyroid, 2019:29:3:412-420. Tim Cox et al. 2017 Guidelines of the [place] Thyroid Association for the Diagnosis and Management of Thyroid Disease during and the . Thyroid, 2017:27:3:315-389. Performed By: #### 2 4323-8, 3016-3 ####[facility] LABCLIA [id number] [address] [place] XR SHOULDER 2V AP/TRUE [...] No radiographic evidence of acute osseous abnormality Radio Operator Ground: [facility] Transcribe Date/Time: Aug 03 2025 9:49A Dictated by : DOMINIC YATES MD This examination was interpreted and the report reviewed and electronically signed by: DOMINIC YATES MD on Aug 03 2025 9:49AM EST [id number] Normal [facility] XR Shoulder - right 2 Viewso n 08-03-2025 Radiology Study observation (narrative) [facility] IMPRESSION: No radiographic evidence of acute osseous abnormality Radio Operator Ground: [facility] Transcribe Date/Time: Aug 03 2025 9:49A [...] the upper arm. DIVISION OF RADIOLOGY Provider, Leonard Layton - 08/03/2025 * * *Final Report* * [...] No radiographic evidence of acute osseous abnormality Radio Operator Ground: [facility] Transcribe Date/Time: Aug 03 2025 9:49A Dictated by : DOMINIC YATES MD This examination was interpreted and the report reviewed and electronically signed by: DOMINIC YATES MD on Aug 03 2025 9:49AM EST [facility] XR Shoulder - right 2 ViewsO rdered By: Ccf Provider on 08-03-2025 [facility] CNOVon 07-28-2025 CNOV Office Visit (INTMWS ) ANNE CHUNG ([id number]) 1985 F Date Time Provider Department 07/28/25 9:40 AM GERMAN PIRES INTMWS During your visit today, we recorded the following information about you: Pulse Respiration Blood pressure Weight 82/minute 16/minute 100/60 59 kg German Pires APRN.CNS 07/28/2025 10:06 AM Signed Subjective Patient ID: [...] radiating down the arm. - Described as "sharp" pain, exacerbated by any arm movement. 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 Right Foot Pain: - Acute onset after landing awkwardly during a front flip. - Described as a "sharp" pain on the dorsum of the foot, exacerbated by plantar flexion. - No visible bruising, swelling, or palpable lumps. - Mild discomfort when ambulating. - Typically wears supportive footwear. Weight Loss: - Unintentional weight loss noted. - Anne reports hair loss, described as "clumps" falling out when brushing. - Family history [...] follow up Yassine Link MD. German Pires APRN.COUNT TEAM CLERK Medical Decision Making: Problems: Low: 2+ self-limited or minor problems Data: Unique test(s) o (more content not included)... Normal [facility] CNOVon 07-03-2025 CNOV Office Visit (INTMWS ) ANNE CHUNG ([id number]) 1985 F Date Time Provider Department 07/03/25 1:40 PM GERMAN PIRES INTMWS During your visit today, we recorded the following information about you: Pulse Respiration Blood pressure Weight 78/minute 14/minute 94/50 58.6 kg German Pires, COUNT TEAM CLERK 07/03/2025 2:19 PM Signed Subjective Patient ID: [...] 6 mo follow up MD German Holly APRN.COUNT TEAM CLERK Medical Decision Making: Medical Decision Making Level: [...] Date Reviewed: 07/03/2025 Reviewed by: German Pires APRN.COUNT TEAM CLERK - Fully Assessed Reason for Visit: Weight Loss [882] Cmt: X 3 months Primary Visit Diagnosis:Weight loss [R63.4] Other Visit Diagnoses:Hot flashes [R23.2] Anxiety and depression [F41.9, F32.A] Gastroesophageal reflux disease, unspecified whether esophagitis present [K21.9] Order(s):COMPREHENSIVE METABOLIC PANEL [SQCMP] Order #: [id number] FUTURE COMPLETE BLOOD COUNT AND DIFFERENTIAL [SQCBCDIF] Order #: [id number] FUTURE THYROID STIMULATING HORMONE [SQTSH] Order #: [id number] FUTURE PARoxetine (PAXIL) 10 mg tabletTake 1 tablet by mouth once daily. For hot flashesDisp: 30 tabletRfl: [address] (PROTONIX) 40 mg tabletTake 1 tablet (more content not included)... Normal [facility] ([id number]) 1985 F Date Time Provider Department 04/27/25 GERMAN PIRES INTWS During your visit today, [...] Please review and advise, JUSTIN Diaz Terri, DIAMOND FINISHING SUPERVISOR.COUNT TEAM CLERK 04/27/2025 12:37 PM Signed I sent in a prescription for meloxicam abd hydrocodone acetaminophen for breakthrough pain. Continue with topical treatments as discussed at her visit. Leticia Persaud LPN 04/27/2025 2:31 PM Signed Getting a lot of static on line, will try again. Leticia Persaud Leticia KennyJUVE 04/29/2025 9:11 AM Signed Below left on [...] of und (more content not included)... Normal [facility] CNOVon 04-24-2025 CNOV Office Visit (INTMWS ) ANNE CHUNG ([id number]) 1985 F Date Time Provider Department 04/24/25 3:40 PM GERMAN PIRES INTMWS During your visit today, we recorded the following information about you: Pulse Respiration Blood pressure Weight 71/minute 16/minute 98/60 62.1 kg German Pires APRN.COUNT TEAM CLERK 04/24/2025 3:58 PM Signed Subjective Patient ID: [...] partial thickness wound inner aspect right ankle ~1" diam, remnants of blister present, flat, some [...] MG TABLET x 7 days German Pires APRN.COUNT TEAM CLERK Medical Decision Making: Problems: Low: Acute, uncomplicated [...] via nebul (more content not included)... Normal [facility] CNCOon 03-17-2025 CNCO Letter Text Normal [facility] CTPCRon 03-17-2025 C. trachomatis Interp Normal See CT Interp N [facility] Comment on above: Result Comment: C. t rachomatis DNA not detected. Specimen is presumptive negative for C. trachomatis. A negative result does not preclude C. trachomatis infection because results depend on adequate specimen collection, absence of inhibitors, and sufficient DNA to be detected. See CT Interp N Performed By: #### C BC, ADIFF, ANEU, MDW, BMP, GFR, DIMER, TROPHS #### [address] [address] C.trachomatis PCR Negative Normal Negative [facility] Comment on above: Result Comment: Mole cular (PCR) assay performed on the Belia Cony 4800 system. Performed By: #### C BC, ADIFF, ANEU, MDW, BMP, GFR, DIMER, TROPHS #### [address] [address] [place] Genital Female Normal [facility] Comment on above: Performed By: #### C BC, ADIFF, ANEU, MDW, BMP, GFR, DIMER, TROPHS #### [address] [address] CNJWS2dz 03-17-2025 GC PCR Source Genital Female Normal [facility] Comment on above: Performed By: #### C BC, ADIFF, ANEU, MDW, BMP, GFR, DIMER, TROPHS #### [address] [address] N. gonorrhoeae (PCR) Negative Normal Negative [facility] Comment on above: Result Comment: Mole cular (PCR) assay performed on the Belia Cony 4800 System. Performed By: #### C BC, ADIFF, ANEU, MDW, BMP, GFR, DIMER, TROPHS #### [address] [address] N. gonorrhoeae Interp Normal See NG Interp N [facility] Comment on above: Result Comment: N. g onorrhoeae DNA not detected. Specimen is presumptive negative for N. gonorrhoeae. A negative result does not preclude Neisseria gonorrhoeae infection because results depend on adequate specimen collection, absence of inhibitors, and sufficient DNA to be detected. See NG Interp N Performed By: #### C ROBY, GLADYS, JIMENEZ, MDW, BMP, GFR, DIMER, TROPHS #### [address] [place], [place] [address] LABORATORYOrdered By: Gene Deutsch on 03-16-2025 C. [...] Belia Cony 4800 System. N. gonorrhoeae DNA PATRIICA+probe Ql (Unsp spec) N. gonorrhoeae DNA not [...] spec) Genital Female (03/16/25 9:48 AM) Normal [facility] CNPTanya 03-03-2025 CNPN Telephone ([employer]) ANNE CHUNG ([id number]) 1985 F Date Time Provider Department 03/03/25 MALLORY MARRERO During your visit today, we [...] Encounter Status:Closed by VIRGILIO IGNACIO on 05/28/25 Normal [facility] CNCOon 03-02-2025 CNCO Letter Text Normal [facility] CNOVon 03-02-2025 CNOV Office Visit (INTMWS ) ANNE CHUNG Debbie ([id number]) 1985 F Date Time Provider Department 03/02/25 8:00 AM GERMAN PIRES INTMWS During your visit today, we recorded the following information about you: Pulse Respiration Blood pressure Weight 74/minute 20/minute 108/69 64 kg German Pires APRN.COUNT TEAM CLERK 03/02/2025 8:44 AM Signed Subjective Patient ID: Anne is a 39 year old female who presents for Recheck (pneumonia states is no longer needing the O2). HPI return to clinic today for a recheck. HIP excerpted from previous visit:Presents for a hospital follow up visit. Review of records show she presented to [facility] ER with report of left flank [...] and scanned documents. Pneumonia: - Hospitalized at [facility] for 3-4 days due to severe [...] PANTOPRAZOLE 40 MG TABLET,DELAYED RELEASE German Pires APRN.COUNT TEAM CLERK Medical Decision Making: Problems: Low: Acute, uncomplicated illness or injury Data: Unique test result(s) reviewed: 1 Risk: Moderate: Drug management Medical Decision Making Level: 3 - Low German Pires APRN.COUNT TEAM CLERK 03/02/2025 8:37 AM Signed - Increase Pantoprazole [...] the designated hospital. Referring Provider: GERMAN PIRES [[id number]] Allergies As of Date: 03/02/2025 Noted Allergy Reaction BEES 06/23/2011 10 - Anaphylaxis Comments: Pt had swelling, was given epipen at ER. CODEINE-GUAIFENESIN 02/16/2025 2 - Ra (more content not included)... Normal [facility] [place] 02-26-2025 Y[facility] Telephone (INTMWS) ANNE CHUNG ([id number]) 1985 F Date Time Provider Department 02/26/25 GERMAN PIRES During your visit today, we recorded the following information about you: Myesha Kauffman LPN 02/26/2025 9:04 AM Signed Patient calling asking to have referral faxed to [facility] at [phone]. Printed office notes, chest xray results, face [...] Date Reviewed: 02/23/2025 Reviewed by: German Pires APRN.COUNT TEAM CLERK - Fully Assessed Reason for Visit: Fax referral to [facility] [Other] Prescriptions as of 02/26/2025 - [...] treatment [Z91.199] 03/12/2023 Encounter Status:Closed by MYESHA KAUFFMNA on 02/26/25 [facility] CNOVon 02-23-2025 CNOV Office Visit (INTMWS ) ANNE CHUNG ([id number]) 1985 F Date Time Provider Department 02/23/25 9:40 AM GERMAN PIRES INTMWS During your visit today, we recorded the following information about you: Pulse Respiration Blood pressure Weight 80/minute 16/minute 98/65 65 kg German Pires APRN.COUNT TEAM CLERK 02/23/2025 10:39 AM Signed Subjective Patient ID: Anne is a 39 year old female who presents for Hospital F/U. HPI Presents for a hospital follow up visit. Review of records show she presented to [facility] ER with report of left flank [...] and scanned documents. Pneumonia: - Hospitalized at [facility] for 3-4 days due to severe [...] Making Level: 4 - Moderate German Pires APRN.COUNT TEAM CLERK 02/23/2025 10:28 AM Signed - Continue taking Prednisone as prescribed. - Use Albuterol inhaler every 6 hours as needed for shortness of breath. - Continue using oxygen at 1 liter per minute; adjust as needed to maintain comfort and avoid shortness of breath. - Avoid smoking to prevent further lung irritation and complications. - Complete chest X-ray as scheduled. - Follow up with [facility] as scheduled. - Return for a follow-up [...] MORPHINE 10/26 (more content not included)... Normal [facility] XR CHEST 2V FRONTAL/LATon XR CHEST [...] pneumonia or aspiration. Clinical correlation is suggested. Radio Operator Ground: [facility] Transcribe Date/Time: Feb 23 2025 11:21A Dictated by : ALLY JUÁREZ MD This examination was interpreted and the report reviewed and electronically signed by: ALLY JUÁREZ MD on Feb 23 2025 11:21AM EST [id number] Normal [facility] XR Chest PA and Lateralon IMPRESSION: Bilateral pulmonary infiltrates, likely representing pneumonia or aspiration. Clinical correlation is suggested. Radio Operator Ground: [facility] Transcribe Date/Time: Feb 23 2025 11:21A Dictated [...] soft tissues: Unremarkable. DIVISION OF RADIOLOGY Provider, Taylor Nimesh [facility] - 02/23/2025 * * *Final Report* [...] pneumonia or aspiration. Clinical correlation is suggested. Radio Operator Ground: [facility]IN Transcribe Date/Time: Feb 23 2025 11:21A Dictated by : ALLY JUÁREZ MD This examination was interpreted and the report reviewed and electronically signed by: ALLY JUÁREZ MD on Feb 23 2025 11:21AM EST [facility] Radiology Study observation (narrative) [facility] XR Chest PA and LateralOrder ed By: Ccf Provider on 02-23-2025 [facility] .GFRon 02-19-2025 Estimated Glomerular Filtration Rate 119 ml/min/1.73sqm Normal [facility] Comment on above: Result Comment: Stages of [...] ANEU, MDW, BMP, GFR, DIMER, TROPHS #### [address] [address] BMPon 02-19-2025 BUN/Creatinine Ratio 13 ratio Normal 7-27 [facility] Comment on above: Performed By: #### C BC, ADIFF, ANEU, MDW, BMP, GFR, DIMER, TROPHS #### [address] [address] Calcium [Mass/Vol] 8.7 mg/dL Normal 8.4-10.2 [facility] Comment on above: Performed By: #### C BC, ADIFF, ANEU, MDW, BMP, GFR, DIMER, TROPHS #### [address] [address] Chloride [Moles/Vol] 105 mmol/L Normal 98-107 [facility] Comment on above: Performed By: #### C BC, ADIFF, ANEU, MDW, BMP, GFR, DIMER, TROPHS #### [address] [address] CO2 [Moles/Vol] 29 mmol/L Normal 22-29 [facility] Comment on above: Performed By: #### C BC, ADIFF, ANEU, MDW, BMP, GFR, DIMER, TROPHS #### [address] [address] Creatinine [Mass/Vol] 0.55 mg/dL Normal 0.55-1.02 [facility] Comment on above: Result Comment: Test ing performed on Siemens Dimension EXL analyzer using a modified kinetic Manjula technique. Performed By: #### C BC, ADIFF, ANEU, MDW, BMP, GFR, DIMER, TROPHS #### [address] [address] Electrolyte Balance 6.0 mEq/L Normal 4.0-15.0 [facility] Comment on above: Performed By: #### C BC, ADLYNDSAY, ANEU, MDW, BMP, GFR, DIMER, TROPHS #### [address] [address] Glucose [Mass/Vol] 78 mg/dL Normal 70-105 [facility] Comment on above: Performed By: #### C BC, ADLYNDSAY, ANEU, MDW, BMP, GFR, DIMER, TROPHS #### [address] [address] Potassium [Moles/Vol] 3.6 mmol/L Normal 3.5-5.1 [facility] Comment on above: Performed By: #### C BC, ADLYNDSAY, ANEU, MDW, BMP, GFR, DIMER, TROPHS #### [address] [address] Sodium [Moles/Vol] 140 mmol/L Normal 136-145 [facility] Comment on above: Performed By: #### C BC, GLADYS, ANEU, MDW, BMP, GFR, DIMER, TROPHS #### [address] [address] Urea nitrogen [Mass/Vol] 7 mg/dL Normal 7-18 [facility] Comment on above: Performed By: #### C BC, GLADYS, ANEU, MDW, BMP, GFR, DIMER, TROPHS #### [address] [address] MGon 02-19-2025 Magnesium [Mass/Vol] 2.0 mg/dL Normal 1.8-2.4 [facility] Comment on above: Performed By: #### C BC, ADLYNDSAY, ANEU, MDW, BMP, GFR, DIMER, TROPHS #### [address] [address] MYCOon 02-19-2025 Mycoplasma IgG Positive Normal [facility] Comment on above: Result Comment: INTE RPRETATION OF MYCOPLASMA IgG BY EIA: Negative: No detectable M. pneumoniae IgG antibody. Positive: Mycoplasma pneumoniae IgG antibody Detected. Equivocal: Equivocal for IgG antibodies to Mycoplasma pneumoniae. Suggest repeat testing in 10-14 days. Performed By: #### C BC, ADIFF, ANEU, MDW, BMP, GFR, DIMER, TROPHS #### [address] [address] Mycoplasma IgM Negative Normal [facility] Comment on above: Result Comment: INTE RPRETATION OF MYCOPLASMA IgM: Negative: IgM to M. pneumoniae Absent, or at levels below the assay limit of detection. Positive: IgM to M. pneumoniae Present. Invalid: Test results are invalid due to invalid internal control. Assay was performed in duplicate. Repeat testing is suggested if clinically indicated. Performed By: #### C BC, ADIFF, ANEU, MDW, BMP, GFR, DIMER, TROPHS #### [address] [address] .Auto Diffon 02-18-2025 Basophil, Absolute 0.0 10 3/mcL Normal 0.0-0.2 [facility] Comment on above: Performed By: #### C BC, ADIFF, ANEU, MDW, BMP, GFR, DIMER, TROPHS #### [place] [address] Basophils/100 WBC (Bld) 0.2 % Normal 0.0-2.5 [facility] Comment on above: Performed By: #### C BC, ADIFF, ANEU, MDW, BMP, GFR, DIMER, TROPHS #### [address] [address] Eosinophil, Absolute 0.0 10 3/mcL Normal 0.0-0.7 [facility] Comment on above: Performed By: #### C BC, ADIFF, ANEU, MDW, BMP, GFR, DIMER, TROPHS #### [address] [address] Eosinophils/100 WBC (Bld) 0.1 % Normal 0.0-7.0 [facility] Comment on above: Performed By: #### C BC, ADIFF, ANEU, MDW, BMP, GFR, DIMER, TROPHS #### [address] [address] Lymphocyte, Absolute 1.3 10 3/mcL Normal 0.9-4.3 [facility] Comment on above: Performed By: #### C BC, ADIFF, ANEU, MDW, BMP, GFR, DIMER, TROPHS #### [address] [address] Lymphocytes/100 WBC (Bld) 10.8 % Low 20.0-40.0 [facility] Comment on above: Performed By: #### C BC, ADIFF, ANEU, MDW, BMP, GFR, DIMER, TROPHS #### [address] [address] Monocyte, Absolute 0.5 10 3/mcL Normal 0.1-1.4 [facility] Comment on above: Performed By: #### C BC, ADIFF, ANEU, MDW, BMP, GFR, DIMER, TROPHS #### [address] [address] Monocytes/100 WBC (Bld) 3.9 % Normal 2.0-13.0 [facility] Comment on above: Performed By: #### C BC, ADIFF, ANEU, MDW, BMP, GFR, DIMER, TROPHS #### [address] [address] Neutrophils/100 WBC (Bld) 85.0 % High 50.0-75.0 [facility] Comment on above: Performed By: #### C BC, ADIFF, ANEU, MDW, BMP, GFR, DIMER, TROPHS #### [address] [address] .GFRon 02-18-2025 Estimated Glomerular Filtration Rate 102 ml/min/1.73sqm Normal [facility] Comment on above: Result Comment: Stages of [...] ANEU, MDW, BMP, GFR, DIMER, TROPHS #### [address] [address] .NEUABSon 02-18-2025 Neutrophil, Absolute 10.1 10 3/mcL High 2.3-8.1 [facility] Comment on above: Performed By: #### C BC, ADIFF, ANEU, MDW, BMP, GFR, DIMER, TROPHS #### [address] [address] BMPon 02-18-2025 BUN/Creatinine Ratio 12 ratio Normal 7-27 [facility] Comment on above: Performed By: #### C BC, ADIFF, ANEU, MDW, BMP, GFR, DIMER, TROPHS #### [address] [address] Calcium [Mass/Vol] 8.6 mg/dL Normal 8.4-10.2 [facility] Comment on above: Performed By: #### C BC, ADIFF, ANEU, MDW, BMP, GFR, DIMER, TROPHS #### [address] [address] Chloride [Moles/Vol] 102 mmol/L Normal 98-107 [facility] Comment on above: Performed By: #### C BC, ADIFF, ANEU, MDW, BMP, GFR, DIMER, TROPHS #### [address] [address] CO2 [Moles/Vol] 24 mmol/L Normal 22-29 [facility] Comment on above: Performed By: #### C BC, ADIFF, ANEU, MDW, BMP, GFR, DIMER, TROPHS #### [address] [address] Creatinine [Mass/Vol] 0.76 mg/dL Normal 0.55-1.02 [facility] Comment on above: Result Comment: Test ing performed on Siemens Dimension EXL analyzer using a modified kinetic Manjula technique. Performed By: #### C BC, ADIFF, ANEU, MDW, BMP, GFR, DIMER, TROPHS #### [address] [address] Electrolyte Balance 10.0 mEq/L Normal 4.0-15.0 [facility] Comment on above: Performed By: #### C BC, ADIFF, ANEU, MDW, BMP, GFR, DIMER, TROPHS #### [address] [address] Glucose [Mass/Vol] 89 mg/dL Normal 70-105 [facility] Comment on above: Performed By: #### C BC, ADIFF, ANEU, MDW, BMP, GFR, DIMER, TROPHS #### [address] [address] Potassium [Moles/Vol] 4.4 mmol/L Normal 3.5-5.1 [facility] Comment on above: Performed By: #### C BC, ADIFF, ANEU, MDW, BMP, GFR, DIMER, TROPHS #### [address] [address] Sodium [Moles/Vol] 136 mmol/L Normal 136-145 [facility] Comment on above: Performed By: #### C BC, ADIFF, ANEU, MDW, BMP, GFR, DIMER, TROPHS #### [address] [address] Urea nitrogen [Mass/Vol] 9 mg/dL Normal 7-18 [facility] Comment on above: Performed By: #### C BC, ADIFF, ANEU, MDW, BMP, GFR, DIMER, TROPHS #### [address] [address] CBCon 02-18-2025 Erythrocyte distribution width (RBC) [Ratio] 13.3 % Normal 11.5-15.5 [facility] Comment on above: Performed By: #### G FR, CBC, ADIFF, ANEU, BMP, MG #### [place] [address] Hematocrit (Bld) [Volume fraction] 39.6 % Normal 34.0-46.0 [facility] Comment on above: Performed By: #### G FR, CBC, ADIFF, ANEU, BMP, MG #### [place] [address] Hgb 13.4 G/dL Normal 12.0-16.0 [facility] Comment on above: Performed By: #### G FR, CBC, ADIFF, ANEU, BMP, MG #### [place] [id number] MCH (RBC) [Entitic mass] 32.0 pg Normal 27.0-33.0 [facility] Comment on above: Performed By: #### G FR, CBC, ADIFF, ANEU, BMP, MG #### [place] [address] MCHC 33.8 G/dL Normal 32.0-36.0 [facility] Comment on above: Performed By: #### G FR, CBC, ADIFF, ANEU, BMP, MG #### [place] [id number] MCV (RBC) [Entitic vol] 94.5 fL Normal 80.0-99.0 [facility] Comment on above: Performed By: #### G FR, CBC, ADIFF, ANEU, BMP, MG #### [address] [address] Platelet 138 10 3/mcL Low 150-450 [facility] Comment on above: Performed By: #### G FR, CBC, ADIFF, ANEU, BMP, MG #### [address] [address] Platelet mean volume (Bld) [Entitic vol] 10.6 fL High 6.6-10.5 [facility] Comment on above: Performed By: #### G FR, CBC, ADIFF, ANEU, BMP, MG #### [address] [address] RBC 4.19 10 6/mcL Normal 4.10-5.30 [facility] Comment on above: Performed By: #### G FR, CBC, ADIFF, ANEU, BMP, MG #### [address] [address] WBC 11.9 10 3/mcL High 4.5-10.8 [facility] Comment on above: Performed By: #### G FR, CBC, ADIFF, ANEU, BMP, MG #### [place] [address] LACon 02-18-2025 Lactic Acid Lvl 1.2 mmol/L Normal 0.4-2.0 [facility] Comment on above: Performed By: #### L AC #### [place] [address] MGon 02-18-2025 Magnesium [Mass/Vol] 1.6 mg/dL Low 1.8-2.4 [facility] Comment on above: Performed By: #### C BC, ADIFF, ANEU, MDW, BMP, GFR, DIMER, TROPHS #### [address] [address] .Auto Diffon 02-17-2025 Basophil, Absolute 0.0 10 3/mcL Normal 0.0-0.2 [facility] Comment on above: Performed By: #### C BC, ADIFF, ANEU, MDW, BMP, GFR, DIMER, TROPHS #### [address] [address] Basophils/100 WBC (Bld) 0.2 % Normal 0.0-2.5 [facility] Comment on above: Performed By: #### C BC, ADIFF, ANEU, MDW, BMP, GFR, DIMER, TROPHS #### [address] [address] Eosinophil, Absolute 0.0 10 3/mcL Normal 0.0-0.7 [facility] Comment on above: Performed By: #### C BC, ADIFF, ANEU, MDW, BMP, GFR, DIMER, TROPHS #### [address] [address] Eosinophils/100 WBC (Bld) 0.0 % Normal 0.0-7.0 [facility] Comment on above: Performed By: #### C BC, ADIFF, ANEU, MDW, BMP, GFR, DIMER, TROPHS #### [address] [address] Lymphocyte, Absolute 0.6 10 3/mcL Low 0.9-4.3 [facility] Comment on above: Performed By: #### C BC, ADIFF, ANEU, MDW, BMP, GFR, DIMER, TROPHS #### [address] [address] Lymphocytes/100 WBC (Bld) 3.6 % Low 20.0-40.0 [facility] Comment on above: Performed By: #### C BC, ADIFF, ANEU, MDW, BMP, GFR, DIMER, TROPHS #### [address] [address] Monocyte, Absolute 0.8 10 3/mcL Normal 0.1-1.4 [facility] Comment on above: Performed By: #### C BC, ADIFF, ANEU, MDW, BMP, GFR, DIMER, TROPHS #### [address] [address] Monocytes/100 WBC (Bld) 5.0 % Normal 2.0-13.0 [facility] Comment on above: Performed By: #### C BC, ADIFF, ANEU, MDW, BMP, GFR, DIMER, TROPHS #### [address] [address] Neutrophils/100 WBC (Bld) 91.2 % High 50.0-75.0 [facility] Comment on above: Performed By: #### C BC, ADIFF, ANEU, MDW, BMP, GFR, DIMER, TROPHS #### [address] [address] .GFRon 02-17-2025 Estimated Glomerular Filtration Rate 77 ml/min/1.73sqm Normal [facility] Comment on above: Result Comment: Stages of [...] the eGFR results. Performed By: #### C ROBY, GLADYS, JIMENEZ, MDW, BMP, GFR, DIMER, TROPHS #### [address] [address] .MDWon 02-17-2025 Monocyte Distribution Width 28.11 High 0.00-20.00 [facility] Comment on above: Result Comment: For adults in ED, MDW>20.0 may be associated with a higher risk of sepsis during the first 12hrs of hospital admission Performed By: #### C GLADYS CA ANEU, MDW, BMP, GFR, DIMER, TROPHS #### [address] [address] .NEUABSon 02-17-2025 Neutrophil, Absolute 15.2 10 3/mcL High 2.3-8.1 [facility] Comment on above: Performed By: #### C ROBY, JIMENEZ GRAHAM, MDW, BMP, GFR, DIMER, TROPHS #### [address] [address] .Urinalysis Microscopic (AO) on 02-17-2025 UA Bacteria Trace Abnormal [facility] Comment on above: Performed By: #### C BC, GLADYS, JIMENEZ, MDW, BMP, GFR, DIMER, TROPHS #### [address] [address] UA Mucous 2+ /hpf Normal [facility] Comment on above: Performed By: #### C BC, ADIFF, ANEU, MDW, BMP, GFR, DIMER, TROPHS #### [address] [address] UA RBC 0-5 Abnormal None Seen [facility] Comment on above: Performed By: #### C BC, ADIFF, ANEU, MDW, BMP, GFR, DIMER, TROPHS #### [address] [address] UA Squam Epithelial 5-10 Abnormal None Seen [facility] Comment on above: Performed By: #### C BC, ADIFF, ANEU, MDW, BMP, GFR, DIMER, TROPHS #### [address] [address] UA WBC 0-5 Abnormal None Seen [facility] Comment on above: Performed By: #### C BC, ADIFF, ANEU, MDW, BMP, GFR, DIMER, TROPHS #### [address] [address] BMPon 02-17-2025 BUN/Creatinine Ratio 9 ratio Normal 7-27 [facility] Comment on above: Performed By: #### C BC, ADIFF, ANEU, MDW, BMP, GFR, DIMER, TROPHS #### [address] [address] Calcium [Mass/Vol] 9.6 mg/dL Normal 8.4-10.2 [facility] Comment on above: Performed By: #### C BC, ADIFF, ANEU, MDW, BMP, GFR, DIMER, TROPHS #### [address] [address] Chloride [Moles/Vol] 97 mmol/L Low 98-107 [facility] Comment on above: Performed By: #### C BC, ADIFF, ANEU, MDW, BMP, GFR, DIMER, TROPHS #### [address] [address] CO2 [Moles/Vol] 25 mmol/L Normal 22-29 [facility] Comment on above: Performed By: #### C BC, GLADYS, ANEU, MDW, BMP, GFR, DIMER, TROPHS #### [address] [address] Creatinine [Mass/Vol] 0.96 mg/dL Normal 0.55-1.02 [facility] Comment on above: Result Comment: Test ing performed on C4M Dimension EXL analyzer using a modified kinetic Manjula technique. Performed By: #### C BC, GLADYS, ANEU, MDW, BMP, GFR, DIMER, TROPHS #### [address] [address] Electrolyte Balance 11.0 mEq/L Normal 4.0-15.0 [facility] Comment on above: Performed By: #### C ROBY, GLADYS, JIMENEZ, MDW, BMP, GFR, DIMER, TROPHS #### [address] [address] Glucose [Mass/Vol] 135 mg/dL High 70-105 [facility] Comment on above: Performed By: #### C BC, GLADYS, JIMENEZ, MDW, BMP, GFR, DIMER, TROPHS #### [address] [address] Potassium [Moles/Vol] 3.4 mmol/L Low 3.5-5.1 [facility] Comment on above: Performed By: #### C BC, GLADYS, JIMENEZ, MDW, BMP, GFR, DIMER, TROPHS #### [address] [address] Sodium [Moles/Vol] 133 mmol/L Low 136-145 [facility] Comment on above: Performed By: #### C BC, ADLYNDSAY, ANEU, MDW, BMP, GFR, DIMER, TROPHS #### [address] [address] Urea nitrogen [Mass/Vol] 9 mg/dL Normal 7-18 [facility] Comment on above: Performed By: #### C BC, ADIFF, ANEU, MDW, BMP, GFR, DIMER, TROPHS #### [place] [id number] CBCon 02-17-2025 Erythrocyte distribution width (RBC) [Ratio] 13.3 % Normal 11.5-15.5 [facility] Comment on above: Performed By: #### C BC, ADIFF, ANEU, MDW, BMP, GFR, DIMER, TROPHS #### [place] [address] Hematocrit (Bld) [Volume fraction] 43.7 % Normal 34.0-46.0 [facility] Comment on above: Performed By: #### C BC, ADIFF, ANEU, MDW, BMP, GFR, DIMER, TROPHS #### [place] [address] Hgb 15.0 G/dL Normal 12.0-16.0 [facility] Comment on above: Performed By: #### C BC, ADIFF, ANEU, MDW, BMP, GFR, DIMER, TROPHS #### [place] [address] MCH (RBC) [Entitic mass] 32.1 pg Normal 27.0-33.0 [facility] Comment on above: Performed By: #### C BC, ADIFF, ANEU, MDW, BMP, GFR, DIMER, TROPHS #### [place] [address] MCHC 34.3 G/dL Normal 32.0-36.0 [facility] Comment on above: Performed By: #### C BC, ADIFF, ANEU, MDW, BMP, GFR, DIMER, TROPHS #### [place] [address] MCV (RBC) [Entitic vol] 93.6 fL Normal 80.0-99.0 [facility] Comment on above: Performed By: #### C BC, ADIFF, ANEU, MDW, BMP, GFR, DIMER, TROPHS #### [address] [place], [place] [address] Platelet 147 10 3/mcL Low 150-450 [facility] Comment on above: Performed By: #### C BC, ADIFF, ANEU, MDW, BMP, GFR, DIMER, TROPHS #### [place] [id number] [place], [place] [address] Platelet mean volume (Bld) [Entitic vol] 9.3 fL Normal 6.6-10.5 [facility] Comment on above: Performed By: #### C BC, ADIFF, ANEU, MDW, BMP, GFR, DIMER, TROPHS #### [place] [id number] [place], [place] [address] RBC 4.67 10 6/mcL Normal 4.10-5.30 [facility] Comment on above: Performed By: #### C BC, ADIFF, ANEU, MDW, BMP, GFR, DIMER, TROPHS #### [place] [id number] [place], [place] [address] WBC 16.6 10 3/mcL High 4.5-10.8 [facility] Comment on above: Performed By: #### C BC, ADIFF, ANEU, MDW, BMP, GFR, DIMER, TROPHS #### [address] [address] [address] ABD/PELVIS W/ IV CONTRAST ONLYon 02-17-2025 [...] 02/17/2025 11:30:39 PM Ordering Provider: CONCEPCIÓN Gomez [facility] CT ANGIOGRAPHY CHEST W/CONTR Giovanni 02-17-2025 CT [...] 02/17/2025 11:28:40 PM Ordering Provider: CONCEPCIÓN CLEMENT Normal [facility] DIMERon 02-17-2025 D-Dimer 721 ng/mL D-DU High 0-230 [facility] Comment on above: Result Comment: Resu lts [...] pulmonary embolism (PE). Performed By: #### C GLADYS CA ANEU, MDW, BMP, GFR, DIMER, TROPHS #### [place] [address] PREGUon 02-17-2025 HCG ( test) Ql (U) Negative [facility] Comment on above: Performed By: #### C GLADYS CA ANEU, MDW, BMP, GFR, DIMER, TROPHS #### [place] [address] test (u) int Not detected Invalid Interpretation Code [facility] Comment on above: Performed By: #### C GLADYS CA ANEU, MDW, BMP, GFR, DIMER, TROPHS #### [place] [id number] TROPHSon 02-17-2025 High Sensitivity Troponin I <4 Normal 0-51 [facility] Comment on above: Result Comment: High Sensitive Troponin I Reference Ranges: Female: 0-51 ng/L Male: 0-76 ng/L Testing performed on [employer] using a homogeneous sandwich chemiluminescent immunoassay based on [employer] technology. Performed By: #### C ROBY, GLADYS, JIMENEZ, MDW, BMP, GFR, DIMER, TROPHS #### [address] [address] UAon 02-17-2025 Color (U) Mary Normal [facility] Comment on above: Performed By: #### C ROBY, GLADYS, JIMENEZ, MDW, BMP, GFR, DIMER, TROPHS #### [address] [address] Glucose (U) [Mass/Vol] Negative Normal Negative [facility] Comment on above: Performed By: #### C ROBY, GLADYS, JIMENEZ, MDW, BMP, GFR, DIMER, TROPHS #### [address] [address] Ketones Ql (U) Negative Normal Negative [facility] Comment on above: Performed By: #### C ROBY, GLADYS, JIMENEZ, MDW, BMP, GFR, DIMER, TROPHS #### [address] [address] UA Appear Slightly Cloudy Abnormal Clear [facility] Comment on above: Performed By: #### C ROBY, GLADYS, JIMENEZ, MDW, BMP, GFR, DIMER, TROPHS #### [address] [address] UA Blood Negative Normal Negative [facility] Comment on above: Performed By: #### C ROBY, GLADYS, JIMENEZ, MDW, BMP, GFR, DIMER, TROPHS #### [address] [address] UA Leuk Est Negative Normal Negative [facility] Comment on above: Performed By: #### C BC, GLADYS, JIMENEZ, MDW, BMP, GFR, DIMER, TROPHS #### [address] [address] UA Nitrite Negative Normal Negative [facility] Comment on above: Performed By: #### C ROBY, GLADYS, JIMENEZ, MDW, BMP, GFR, DIMER, TROPHS #### [address] [address] UA pH 6.0 Normal 5.0 - 8.0 [facility] Comment on above: Performed By: #### C BC, ADIFF, ANEU, MDW, BMP, GFR, DIMER, TROPHS #### [address] [address] UA Protein >=300 Abnormal Negative [facility] Comment on above: Performed By: #### C BC, ADIFF, ANEU, MDW, BMP, GFR, DIMER, TROPHS #### [address] [address] UA Spec Grav >=1.030 Abnormal 1.015-1.02 5 [facility] Comment on above: Performed By: #### C BC, ADIFF, ANEU, MDW, BMP, GFR, DIMER, TROPHS #### [place] [address] UA Specimen Type Clean Catch Normal [facility] Comment on above: Performed By: #### C BC, ADIFF, ANEU, MDW, BMP, GFR, DIMER, TROPHS #### [place] [id number] UA Urobilinogen 1.0 E.U./dL Normal 0.2-1.0 [facility] Comment on above: Performed By: #### C BC, ADIFF, ANEU, MDW, BMP, GFR, DIMER, TROPHS #### [place] [address] Urobilinogen (U) [Mass/Vol] Negative Normal Negative [facility] Comment on above: Performed By: #### C BC, ADIFF, ANEU, MDW, BMP, GFR, DIMER, TROPHS #### [place] [address] XR CHEST 1 VIEWon 02-17-2025 XR CHEST [...] 02/17/2025 10:42:17 PM Ordering Provider: CONCEPCIÓN CLEMENT [facility] CNCOon 02-16-2025 CNCO Letter Text Normal [facility] CNOVon 02-16-2025 CNOV Office Visit (INTMWS ) ANNE CHUNG ([id number]) 1985 F Date Time Provider Department 02/16/25 7:00 AM [facility] INTMWS During your visit today, we recorded the following information about you: Temperature Pulse Respiration Blood pressure 99.9 degrees 98/minute 16/minute 99/61 Weight 63 kg [place], [employer] TE[employer]ERK 02/16/2025 7:43 AM Signed Subjective ?Quick Links Last Note in Specialty Snapshot Edit RFV/CC Patient ID: Anne is a 39 year old female who presents for Hospital F/U. HPI Presents for emergency department follow-up visit. She was seen at [facility] February 13, 2025 with cough shortness of [...] tenderness or frontal sinus tenderness. Mouth/Throat: Lips: Jay. Mouth: Mucous membranes are moist. Pharynx: Oropharynx [...] Continued influenza (more content not included)... Normal [facility] Absolute neutrophil countOrd ered By: Jamarcus Persaud on 02-13-2025 Neutrophils (Bld) [#/Vol] 3.2 10*3/uL 2.0-7.7 [facility] Anion gap in Serum or Plasma Ordered By: Jamarcus Persaud on 02-13-2025 Anion gap [Moles/Vol] 12 mmol/L 5-15 [facility] BUN/creatinine ratioOrdered By: Jamarcus Persaud on 02-13-2025 Urea nitrogen/Creatinine [Mass ratio] 7.8 mg/mg Low 10-20 [facility] Basic Metabolic Profile (BMP )on 02-13-2025 BUN/CRE 7.8 RATIO Low 10-20 [facility] Comment on above: Performed By: #### L 500.2500, L100.0100 #### [facility] [address] [place], [address] Calcium [Mass/Vol] 9.0 mg/dL Normal 7.6-11.0 [facility] Comment on above: Performed By: #### L 500.2500, L100.0100 #### [facility] [address] [place], [address] Chloride [Moles/Vol] 106 mmol/L Normal 98-108 [facility] Comment on above: Performed By: #### L 500.2500, L100.0100 #### [facility] [address] [place], [address] CO2 [Moles/Vol] 23.1 mmol/L Normal 21.0-32.0 [facility] Comment on above: Performed By: #### L 500.2500, L100.0100 #### [facility] [address] [place], [address] Creatinine [Mass/Vol] 0.72 mg/dL Normal 0.70-1.20 [facility] Comment on above: Performed By: #### L 500.2500, L100.0100 #### [facility] [address] [place], [address] ECRCL 86.41 ml/min Normal 50-250 [facility] Comment on above: Performed By: #### L 500.2500, L100.0100 #### [facility] [address] [place], [address] GAP 12 Normal 5-15 [facility] Comment on above: Performed By: #### L 500.2500, L100.0100 #### [facility] [address] [place], [address] GFR/1.73 sq M.predicted among non-blacks MDRD (S/P/Bld) [Vol rate/Area] 109 mL/min/{1.73_m2} Normal >60 [facility] Comment on above: Result Comment: mL/m in/1.73m2 CKD-EPI Creatinine Equation (2020) Performed By: #### L 500.2500, L100.0100 #### [facility] [address] [place], [address] Glucose [Mass/Vol] 89 mg/dL Normal 70-99 [facility] Comment on above: Performed By: #### L 500.2500, L100.0100 #### [facility] [address] [place], [address] Potassium [Moles/Vol] 3.5 mmol/L Normal 3.3-5.1 [facility] Comment on above: Performed By: #### L 500.2500, L100.0100 #### [facility] [address] [place], [address] Sodium [Moles/Vol] 140 mmol/L Normal 133-145 [facility] Comment on above: Performed By: #### L 500.2500, L100.0100 #### [facility] [address] [place], [address] Urea nitrogen [Mass/Vol] 6 mg/dL Normal 4-19 [facility] Comment on above: Performed By: #### L 500.2500, L100.0100 #### [facility] [address] [place], [address] Basophil percentageOrdered B y: Jamarcus Persaud on 02-13-2025 Basophils/100 WBC (Bld) 0.7 % 0-1 [facility] CBC W/Diff, Automatedon 03-2 -2024 Absolute Lymph 0.48 X10 3/uL Low 0.83-4.51 [facility] Comment on above: Performed By: #### L 500.2500, L100.0100 #### [facility] [address] [place], [address] Absolute Neut 3.2 X10 3/uL Normal 2.0-7.7 [facility] Comment on above: Performed By: #### L 500.2500, L100.0100 #### [facility] [address] [place], [address] Basophils/100 WBC (Bld) 0.7 % Normal 0-1 [facility] Comment on above: Performed By: #### L 500.2500, L100.0100 #### [facility] [address] [place], [address] Eosinophils/100 WBC (Bld) 0.2 % Normal 0-5 [facility] Comment on above: Performed By: #### L 500.2500, L100.0100 #### [facility] [address] [place], [address] Erythrocyte distribution width (RBC) [Ratio] 12.7 % Normal 11.6-14.6 [facility] Comment on above: Performed By: #### L 500.2500, L100.0100 #### [facility] [address] [place], [address] Hematocrit (Bld) [Volume fraction] 46.8 % Normal 37-47 [facility] Comment on above: Performed By: #### L 500.2500, L100.0100 #### [facility] [address] [place], [address] Hemoglobin (Bld) [Mass/Vol] 15.7 g/dL High 12.0-15.0 [facility] Comment on above: Performed By: #### L 500.2500, L100.0100 #### [facility] [address] [place], [address] IG% 0.500 Normal 0.0-0.9 [facility] Comment on above: Result Comment: IG% - Immature Granulocytes (promyelocytes, myelocytes and metamyelocytes) > 1% indicates that a LEFT SHIFT is Present. Performed By: #### L 500.2500, L100.0100 #### [facility] [address] [place], [address] Lymphocytes/100 WBC (Bld) 11.3 % Low 19-41 [facility] Comment on above: Performed By: #### L 500.2500, L100.0100 #### [facility] [address] [place], [address] MCH (RBC) [Entitic mass] 32.6 pg High 27.0-32.0 [facility] Comment on above: Performed By: #### L 500.2500, L100.0100 #### [facility] [address] [place], [address] MCHC (RBC) [Mass/Vol] 33.5 g/dL Normal 32-36 [facility] Comment on above: Performed By: #### L 500.2500, L100.0100 #### [facility] [address] [place], [address] MCV (RBC) [Entitic vol] 97.1 fL Normal 81-99 [facility] Comment on above: Performed By: #### L 500.2500, L100.0100 #### [facility] [address] [place], [address] Monocytes/100 WBC (Bld) 11.1 % High 0-10 [facility] Comment on above: Performed By: #### L 500.2500, L100.0100 #### [facility] [address] [place], [address] Neutrophils/100 WBC (Bld) 76.2 % High 47-70 [facility] Comment on above: Performed By: #### L 500.2500, L100.0100 #### [facility] [address] [place], [address] Nucleated RBC (Bld) [#/Vol] 0 10*3/uL Normal 0-5 [facility] Comment on above: Performed By: #### L 500.2500, L100.0100 #### [facility] [address] [place], [address] Platelet mean volume (Bld) [Entitic vol] 11.6 fL Normal 6.2-12.0 [facility] Comment on above: Performed By: #### L 500.2500, L100.0100 #### [facility] [address] [place], [address] Platelets (Bld) [#/Vol] 136 10*3/uL Low 150-450 [facility] Comment on above: Performed By: #### L 500.2500, L100.0100 #### [facility] [address] [place], [address] RBC (Bld) [#/Vol] 4.82 10*6/uL Normal 4.2-5.4 [facility] Comment on above: Performed By: #### L 500.2500, L100.0100 #### [facility] [address] [place], [address] RDW SD 45.4 fl High 35.1-43.9 [facility] Comment on above: Performed By: #### L 500.2500, L100.0100 #### [facility] [address] [place], [address] WBC (Bld) [#/Vol] 4.2 10*3/uL Low 4.4-11.0 [facility] Comment on above: Performed By: #### L 500.2500, L100.0100 #### [facility] [place], [address] CNOVon 02-13-2025 CNOV Office Visit (INTMWS ) ANNE CHUNG ([id number]) 1985 F Date Time Provider Department 02/13/25 2:20 PM YASSINE LINK INTMWS During your visit today, we recorded the following information about you: Temperature Pulse Blood pressure Weight 99 degrees 103/minute 80/44 63.5 kg Height 1.524 m Yassine Link MD 02/13/2025 2:42 PM Signed This note was created using [employer]. Subjective Anne Chung is a 39 year [...] HFA (VENTOLIN (more content not included)... Normal [facility] Carbon dioxide, total [Moles /volume] in Central venous bloodOrdered By: Jamarcus Persaud on 02-13-2025 CO2 [Moles/Vol] 23.1 mmol/L 21.0-32.0 [facility] Chest PA and Lateralon 02-13 Chest PA and Lateral [facility] Imaging Services [address] [place] [address] Chest PA and Lateral MR#: [id number] Acct: [id number] Name: ANNE CHUNG Rep #: [id number] : 1985 F 39 From: Renae Staley nd, MD PCP: Dr. Yassine Link MD Status: [facility] ER Study: Chest PA and Lateral Date of Exam: 02/13/25 Exam# [id number] Ordering Dr: Jamarcus Persaud DO PROCEDURE: CHEST [...] and Lateral IMPRESSION: NEGATIVE CHEST Reading Location: [facility] CC: Dr. Jamarcus Persaud DO; Dr. Yassine Link MD Radio Operator Ground: Signed Normal [facility] Chloride assayOrdered By: Mika Persaud on 02-13-2025 Chloride [Moles/Vol] 106 mmol/L 98-108 [facility] Emergency Department Summary on 02-13-2025 Emergency Department Summary [facility] Medical Records Department [address] [place] [address] Emergency Department Summary 02/13/25 MR#: [id number] Acct: [id number] Name: ANNE CHUNG Rep #: [id number] : 1985 39 From: Jamarcus Persaud DO [...] to some nausea but denies any vomiting. [facility] Medical History PTSD (post-traumatic stress disorder) Left [...] Yes additional social history: Boyfriend-Sha- Works at [employer] Patient works at [employer] ROS ROS ED Constitutional Constitutional ED: Denies chills or [...] [Lying] 83 (more content not included)... Normal [facility] Eosinophil percentageOrdered By: Jamarcus Persaud on 02-13-2025 Eosinophils/100 WBC (Bld) 0.2 % 0-5 [facility] Erythrocyte distribution wid th ratioOrdered By: Jamarcus Persaud on 02-13-2025 Erythrocyte distribution width (RBC) [Ratio] 12.7 % 11.6-14.6 [facility] Erythrocyte distribution wid th standard deviationOrdered By: Jamarcus Persaud on 02-13-2025 Erythrocyte distribution width (RBC) [Entitic vol] 45.4 fL High 35.1-43.9 [facility] Estimation of creatinine cathleen aranceOrdered By: Jamarcus Persaud on 02-13-2025 Estimated Creatinine Clearance Calc 86.41 ml/min 50-250 [facility] GFR/1.73 sq M.predicted dwayne g non-blacks MDRD (S/P/Bld) [Vol rate/Area]Ordered By: Jamarcus Persaud on 02-13-2025 Estimated GFR (MDRD) Non-Af Amer 109 >60 [facility] Comment on above: mL/min/1.73m2 CKD-EP I Creatinine Equation (2020) Hematocrit Auto (Bld) [Volum e fraction]Ordered By: Jamarcus Persaud on 02-13-2025 Hematocrit (Bld) [Volume fraction] 46.8 % 37-47 [facility] Hemoglobin measurementOrdere d By: Jamarcus Persaud on 02-13-2025 Hemoglobin (Bld) [Mass/Vol] 15.7 g/dL High 12.0-15.0 [facility] Immature granulocytes/100 WB C Auto (Bld)Ordered By: Jamarcus Persaud on 02-13-2025 Immature granulocytes/100 WBC (Bld) 0.500 % 0.0-0.9 [facility] Comment on above: IG% - Immature Granu locytes (promyelocytes, myelocytes and metamyelocytes) > 1% indicates that a LEFT SHIFT is Present. Influenza virus A and B and SARS-CoV-2 (COVID-19) and Respiratory syncytial virus RNAOrdered By: Jamarcus Persaud on 02-13-2025 SARS-CoV-2 (COVID-19) RNA PATRICIA+probe Ql (Unsp spec) Influenzae A Abnormal [facility] Lymphocytes Auto (Unsp spec) [#/Vol]Ordered By: Jamarcus Persaud on 02-13-2025 Lymphocytes (Bld) [#/Vol] 0.48 10*3/uL Low 0.83-4.51 [facility] Lymphocytes/100 WBC Auto (Un sp spec)Ordered By: Jamarcus Persaud on 02-13-2025 Lymphocytes/100 WBC (Bld) 11.3 % Low 19-41 [facility] M100.678on 02-13-2025 M100.678 Copy of report sent to Infection Control Printer MS#[id number] 02/13/25 8084 PIPO. RESULTS CALLED TO GARCIA MUÑIZ 02/13/25 1723 Mary Leach. REPORT READ BACK BY SAME. FLUABV+SARS-CoV-2+RSV Pnl Resp PATRICIA+probe FLUABV+SARS-CoV-2+RSV Pnl Resp PATRICIA+probe SARS-CoV-2 (COVID 19) Negative INFLUENZA A A Positive A INFLUENZA B Negative RSV PCR Negative INFLUENZAE A Normal [facility] Comment on above: Performed By: #### M 100.678 ####[facility] [id number] [place], [place], [id number] MCV (mean corpuscular volume ) determinationOrdered By: Jamarcus Persaud on 02-13-2025 MCV (RBC) [Entitic vol] 97.1 fL 81-99 [facility] Mean corpuscular hemoglobin (MCH) determinationOrdered By: Jamarcus Persaud on 02-13-2025 MCH (RBC) [Entitic mass] 32.6 pg High 27.0-32.0 [facility] Mean corpuscular hemoglobin concentration (MCHC) determinationOrdered By: Jamarcus Persaud on 02-13-2025 MCHC (RBC) [Mass/Vol] 33.5 g/dL 32-36 [facility] Mean platelet volume determi nationOrdered By: Jamarcus Persaud on 02-13-2025 Platelet mean volume (Bld) [Entitic vol] 11.6 fL 6.2-12.0 [facility] Monocyte percentageOrdered B y: Jamarcus Persaud on 02-13-2025 Monocytes/100 WBC (Bld) 11.1 % High 0-10 [facility] Neutrophil percentageOrdered By: Jamarcus Persaud on 02-13-2025 Neutrophils/100 WBC (Bld) 76.2 % High 47-70 [facility] Nucleated red blood cell per centageOrdered By: Jamarcus Persaud on 02-13-2025 Nucleated RBC/100 WBC (Bld) [Ratio] 0 % 0-5 [facility] Platelet countOrdered By: Mika Persaud on 02-13-2025 Platelets (Bld) [#/Vol] 136 10*3/uL Low 150-450 [facility] Potassium (Unsp spec) [Mass/ Vol]Ordered By: Jamarcus Persaud on 02-13-2025 Potassium [Moles/Vol] 3.5 mmol/L 3.3-5.1 [facility] RBC Auto (Bld) [#/Vol]Ordere d By: Jamarcus Persaud on 02-13-2025 RBC (Bld) [#/Vol] 4.82 10*6/uL 4.2-5.4 [facility] Serum creatinine measurement (mass/volume)Ordered By: Jamarcus Persaud on 02-13-2025 Creatinine [Mass/Vol] 0.72 mg/dL 0.70-1.20 [facility] Serum glucose measurement (m ass/volume)Ordered By: Jamarcus Persaud on 02-13-2025 Glucose [Mass/Vol] 89 mg/dL 70-99 [facility] Serum or plasma calcium adelita urement (mass/volume)Ordered By: Jamarcus Persaud on 02-13-2025 Calcium [Mass/Vol] 9.0 mg/dL 7.6-11.0 [facility] Serum or plasma urea nitroge n measurement (mass/volume)Ordered By: Jamarcus Persaud on 02-13-2025 Urea nitrogen [Mass/Vol] 6 mg/dL 4-19 [facility] Sodium levelOrdered By: Jamarcus Persaud on 02-13-2025 Sodium [Moles/Vol] 140 mmol/L 133-145 [facility] White blood cell (WBC) count Ordered By: Jamarcus Persaud on 02-13-2025 WBC (Bld) [#/Vol] 4.2 10*3/uL Low 4.4-11.0 [facility] ANES PRE-OPon 01-29-2025 ANES PRE-OP HNO ID: [id number] Author: TAMEKA PERRY MD Service: Anesthesiology Author [...] January 29, 2025 TIME: 1:25 PM CSN: [id number] Normal [facility] HISTORY PHYSICALon HISTORY PHYSICAL HNO ID: [id number] Author: GERTRUDE HENRY MD Service: General Surgery Author Type: Physician Type: H&P Filed: 01/29/2025 13:14 Note Text: HISTORY AND PHYSICAL Anne Chung : 1985 REFERRING PHYSICIAN: [facility] [address] CHIEF COMPLAINT: Patient presents with: Consult: GERD [...] colonoscopy was 10/[address] Escalona at [facility]. Sedation: MAC EGD Impression: - Normal [...] GGF. Diabe (more content not included)... 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 Health Maintenance Hepatitis B Vaccine(1 of [...] pain. Going for the EGD tomorrow in [place]. 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 Normal [facility] CNOVon 01-26-2025 CNOV Office Visit (INTMWS ) ANNE CHUNG ([id number]) 1985 F Date Time Provider Department 01/26/25 [...] days, such as taking additions steps for filter screen cleaner air, hygiene, masks, physical distancing, and [...] asthma se (more content not included)... Normal [facility] CT ABD/PEL W IVCONon 025 CT ABD/PEL W IVCON * * *Final Report* * * DATE OF EXAM: Jan 22 2025 9:38AM [facility] 0530 - CT ABD/PEL W IVCON [...] no developing inflammatory process or impending perforation. Radio Operator Ground[facility] Trans[facility] Date/Time: Jan 22 2025 9:52A Dictated by : JAMES LE MD This examination was interpreted and the report reviewed and electronically signed by: JAMES LE MD on Jan 22 2025 10:11AM EST [id number] Normal [facility] CT Abdomen and Pelvis W cont [...] no developing inflammatory process or impending perforation. Radio Operator Ground: [facility] Transcribe Date/Time: Jan 22 2025 9:52A Dictated by : JAMES LE MD This examination was interpreted and the report reviewed and electronically signed by: JAMES LE MD on Jan 22 2025 10:11AM EST DIVISION OF RADIOLOGY * * *Final Report* * * DATE OF EXAM: Jan 22 2025 9:38AM [facility] 0530 - CT ABD/PEL W IVCON [...] No additional findings. DIVISION OF RADIOLOGY Provider, [facility] - 01/22/2025 * * *Final Report* * * DATE OF EXAM: Jan 22 2025 9:38AM [facility] 0530 - CT ABD/PEL W IVCON [...] no developing inflammatory process or impending perforation. Radio Operator Ground: JUSTIN Transcribe Date/Time: Jan 22 2025 9:52A Dictated by : JAMES LE MD This examination was interpreted and the report reviewed and electronically signed by: JAMES LE MD on Jan 22 2025 10:11AM EST [facility] Radiology Study observation (narrative) [facility] CT Abdomen and Pelvis W cont rast IVOrdered By: Ccf Provider on 01-22-2025 [facility] Breast imaging reportOrdered By: Yisel Martinez on 01-20-2025 Study report [facility] Imaging Services [address] [place] [address] SCRN MAMM (CAD)W/YUSEF BILAT MR#: [id number] Acct: [id number] Name: ANNE CHUNG Rep #: [id number] : 1985 F 39 From: Katelynn Martinez MD PCP: Dr. Yassine Link MD Status: R EG CLI Study:SCRN MAMM (CAD)W/YUSEF BILAT Date of Exa m: 01/20/25 Exam# [id number] Ordering Dr: Isidro Cunningham MD PROCEDURE: SCRN [...] of the results by letter. Reading Location: [facility] CC: Dr. Romelia Cunningham MD; Dr. Yassine Link MD ~ Radio Operator Ground: Signed [facility] CNOVon 01-20-2025 CNOV Office Visit (INTMWS ) SHELDONANNE Debbie ([id number]) 1985 F Date Time Provider Department 01/20/25 2:00 PM MAYDA MADRIGAL INTMWS During your visit today, we recorded the following information about you: Pulse Blood pressure Weight Height 60/minute 106/76 66.7 kg 1.524 m Mayda Madrigal MD 01/20/2025 4:08 PM Signed Reason for Visit Annewilda Chung is a 39 year oldfemale who presents here Patient presents with: Abdominal Pain: Stomach pain for 2 months upper abdomen, [facility] 01/15/25 Health Maintenance Hepatitis B Vaccine(1 [...] Pertinent Lab/Sridevi (more content not included)... Normal [facility] [place] 01-20-2025 [place] Telephone (INTMWS) ANNE CHUNG ([id number]) 1985 F Date Time Provider Department 01/20/25 YASSINE LINK INTBhumikaWS During your visit today, we recorded the following information about you: Fabiana Mcmahan RN 01/20/2025 10:21 AM Signed Patient calls and states that she continues to have severe abdominal pain. Patient states that she was seen at [facility] ER and was prescribed [place] for the pain. Patient reports that [place] is not touching the pain. 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 Yassine Link MD Status: REG CLI Study: SCRN MAMM (CAD)W/YUSEF BILAT Date of Exam: 12/28 04/19 Exam# [id number] Ordering Dr: Romelia Cunningham MD PROCEDURE: SCRN [...] of the results by letter. Reading Location: [id number] CC: Dr. Romelia Cunningham MD; Dr. Yassine Link MD Radio Operator Ground: Signed Normal [facility] .Auto Diffon 01-15-2025 Basophil, Absolute 0.0 10 3/mcL Normal 0.0-0.2 [facility] Comment on above: Performed By: #### C BC, ADIFF, ANEU, MDW, BMP, GFR, DIMER, TROPHS #### [address] [address] Basophils/100 WBC (Bld) 0.3 % Normal 0.0-2.5 [facility] Comment on above: Performed By: #### C BC, ADIFF, ANEU, MDW, BMP, GFR, DIMER, TROPHS #### [address] [address] Eosinophil, Absolute 0.0 10 3/mcL Normal 0.0-0.7 [facility] Comment on above: Performed By: #### C BC, ADIFF, ANEU, MDW, BMP, GFR, DIMER, TROPHS #### [address] [address] Eosinophils/100 WBC (Bld) 0.3 % Normal 0.0-7.0 [facility] Comment on above: Performed By: #### C BC, ADIFF, ANEU, MDW, BMP, GFR, DIMER, TROPHS #### [address] [address] Lymphocyte, Absolute 0.9 10 3/mcL Normal 0.9-4.3 [facility] Comment on above: Performed By: #### C BC, ADIFF, ANEU, MDW, BMP, GFR, DIMER, TROPHS #### [address] [address] Lymphocytes/100 WBC (Bld) 11.0 % Low 20.0-40.0 [facility] Comment on above: Performed By: #### C BC, ADIFF, ANEU, MDW, BMP, GFR, DIMER, TROPHS #### [address] [address] Monocyte, Absolute 0.6 10 3/mcL Normal 0.1-1.4 [facility] Comment on above: Performed By: #### C BC, ADIFF, ANEU, MDW, BMP, GFR, DIMER, TROPHS #### [address] [address] Monocytes/100 WBC (Bld) 7.2 % Normal 2.0-13.0 [facility] Comment on above: Performed By: #### C BC, ADIFF, ANEU, MDW, BMP, GFR, DIMER, TROPHS #### [address] [address] Neutrophils/100 WBC (Bld) 81.2 % High 50.0-75.0 [facility] Comment on above: Performed By: #### C BC, ADIFF, ANEU, MDW, BMP, GFR, DIMER, TROPHS #### [address] [address] .GFRon 01-15-2025 Estimated Glomerular Filtration Rate 115 ml/min/1.73sqm Normal [facility] Comment on above: Result Comment: Stages of [...] ANEU, MDW, BMP, GFR, DIMER, TROPHS #### [id number] [place], [place] [address] .MDWon 01-15-2025 Monocyte Distribution Width 22.69 High 0.00-20.00 [facility] Comment on above: Result Comment: For adults in ED, MDW>20.0 may be associated with a higher risk of sepsis during the first 12hrs of hospital admission Performed By: #### C BC, ADLYNDSAY, ANEU, MDW, BMP, GFR, DIMER, TROPHS #### [address] [address] .NEUABSon 01-15-2025 Neutrophil, Absolute 6.3 10 3/mcL Normal 2.3-8.1 [facility] Comment on above: Performed By: #### C BC, ADIFF, ANEU, MDW, BMP, GFR, DIMER, TROPHS #### [place] [address] CBCon 01-15-2025 Erythrocyte distribution width (RBC) [Ratio] 13.7 % Normal 11.5-15.5 [facility] Comment on above: Performed By: #### C ROBY, ADIFF, ANEU, MDW, BMP, GFR, DIMER, TROPHS #### [place] [address] Hematocrit (Bld) [Volume fraction] 41.8 % Normal 34.0-46.0 [facility] Comment on above: Performed By: #### C BC, ADIFF, ANEU, MDW, BMP, GFR, DIMER, TROPHS #### [place] [address] Hgb 14.4 G/dL Normal 12.0-16.0 [facility] Comment on above: Performed By: #### C BC, GLADYS, ANEU, MDW, BMP, GFR, DIMER, TROPHS #### [place] [address] MCH (RBC) [Entitic mass] 32.7 pg Normal 27.0-33.0 [facility] Comment on above: Performed By: #### C BC, ADIFF, ANEU, MDW, BMP, GFR, DIMER, TROPHS #### [place] [address] MCHC 34.5 G/dL Normal 32.0-36.0 [facility] Comment on above: Performed By: #### C BC, ADIFF, ANEU, MDW, BMP, GFR, DIMER, TROPHS #### [address] [address] MCV (RBC) [Entitic vol] 94.9 fL Normal 80.0-99.0 [facility] Comment on above: Performed By: #### C BC, ADIFF, ANEU, MDW, BMP, GFR, DIMER, TROPHS #### [address] [address] Platelet 152 10 3/mcL Normal 150-450 [facility] Comment on above: Performed By: #### C BC, ADIFF, ANEU, MDW, BMP, GFR, DIMER, TROPHS #### [address] [address] Platelet mean volume (Bld) [Entitic vol] 9.6 fL Normal 6.6-10.5 [facility] Comment on above: Performed By: #### C BC, ADIFF, ANEU, MDW, BMP, GFR, DIMER, TROPHS #### [address] [address] RBC 4.40 10 6/mcL Normal 4.10-5.30 [facility] Comment on above: Performed By: #### C BC, ADIFF, ANEU, MDW, BMP, GFR, DIMER, TROPHS #### [address] [address] WBC 7.8 10 3/mcL Normal 4.5-10.8 [facility] Comment on above: Performed By: #### C BC, ADIFF, ANEU, MDW, BMP, GFR, DIMER, TROPHS #### [address] [address] CBC W/Diff, Automatedon 12-28-2024 Absolute Neut Normal 2.0-7.7 [facility] Comment on above: Result Comment: NO S PECIMEN COLLECTED. PATIENT DEPARTED ED. Performed By: #### L 700.6800, L500.4050, L100.0100 #### [facility] [address] [place], [address] HCT Normal 37-47 [facility] Comment on above: Result Comment: NO S PECIMEN COLLECTED. PATIENT DEPARTED ED. Performed By: #### L 700.6800, L500.4050, L100.0100 #### [facility] [address] [place], [address] HGB Normal 12.0-15.0 [facility] Comment on above: Result Comment: NO S PECIMEN COLLECTED. PATIENT DEPARTED ED. Performed By: #### L 700.6800, L500.4050, L100.0100 #### [facility] [address] [place], [address] MCH Normal 27.0-32.0 [facility] Comment on above: Result Comment: NO S PECIMEN COLLECTED. PATIENT DEPARTED ED. Performed By: #### L 700.6800, L500.4050, L100.0100 #### [facility] [address] [place], [address] MCHC Normal 32-36 [facility] Comment on above: Result Comment: NO S PECIMEN COLLECTED. PATIENT DEPARTED ED. Performed By: #### L 700.6800, L500.4050, L100.0100 #### [facility] [address] [place], [address] MCV Normal 81-99 [facility] Comment on above: Result Comment: NO S PECIMEN COLLECTED. PATIENT DEPARTED ED. Performed By: #### L 700.6800, L500.4050, L100.0100 #### [facility] [address] [place], [address] NEUT% Normal 47-70 [facility] Comment on above: Result Comment: NO S PECIMEN COLLECTED. PATIENT DEPARTED ED. Performed By: #### L 700.6800, L500.4050, L100.0100 #### [facility] [address] [place], [address] PLT Normal 150-450 [facility] Comment on above: Result Comment: NO S PECIMEN COLLECTED. PATIENT DEPARTED ED. Performed By: #### L 700.6800, L500.4050, L100.0100 #### [facility] [address] [place], [address] RBC Normal 4.2-5.4 [facility] Comment on above: Result Comment: NO S PECIMEN COLLECTED. PATIENT DEPARTED ED. Performed By: #### L 700.6800, L500.4050, L100.0100 #### [facility] [address] [place], [address] RDW CV Normal 11.6-14.6 [facility] Comment on above: Result Comment: NO S PECIMEN COLLECTED. PATIENT DEPARTED ED. Performed By: #### L 700.6800, L500.4050, L100.0100 #### [facility] [address] [place], [address] RDW SD Normal 35.1-43.9 [facility] Comment on above: Result Comment: NO S PECIMEN COLLECTED. PATIENT DEPARTED ED. Performed By: #### L 700.6800, L500.4050, L100.0100 #### [facility] [address] [place], [address] WBC Normal 4.4-11.0 [facility] Comment on above: Result Comment: NO S PECIMEN COLLECTED. PATIENT DEPARTED ED. Performed By: #### L 700.6800, L500.4050, L100.0100 #### [facility] [address] [place], [address] CMPon 01-15-2025 Albumin Level 3.5 G/dL Normal 3.5-5.0 [facility] [facility] Comment on above: Order Comment: hemol yzed Performed By: #### C BC, ADIFF, ANEU, MDW, BMP, GFR, DIMER, TROPHS #### [address] [address] Albumin/Globulin [Mass ratio] 1.2 {ratio} Normal 1.1-2.5 [facility] Comment on above: Order Comment: hemol yzed Performed By: #### C BC, ADIFF, ANEU, MDW, BMP, GFR, DIMER, TROPHS #### [address] [address] ALP [Catalytic activity/Vol] 76 U/L Normal 40-135 [facility] Comment on above: Order Comment: hemol yzed Performed By: #### C BC, ADIFF, ANEU, MDW, BMP, GFR, DIMER, TROPHS #### [address] [address] ALT [Catalytic activity/Vol] 17 U/L Normal 14-59 [facility] Comment on above: Order Comment: hemol yzed Performed By: #### C BC, ADIFF, ANEU, MDW, BMP, GFR, DIMER, TROPHS #### [place] [address] AST [Catalytic activity/Vol] 13 U/L Normal 10-40 [facility] Comment on above: Order Comment: hemol yzed Performed By: #### C BC, ADIFF, ANEU, MDW, BMP, GFR, DIMER, TROPHS #### [address] [address] Bili Total 0.6 mg/dL Normal 0.2-1.0 [facility] Comment on above: Order Comment: hemol yzed Result Comment: Use of this assay is not recommended for patients undergoing treatment with eltrombopag due to the potential for falsely elevated results. Performed By: #### C BC, ADIFF, ANEU, MDW, BMP, GFR, DIMER, TROPHS #### [place] [address] BUN/Creatinine Ratio 6 ratio Low 7-27 [facility] Comment on above: Order Comment: hemol yzed Performed By: #### C BC, ADIFF, ANEU, MDW, BMP, GFR, DIMER, TROPHS #### [address] [address] Calcium [Mass/Vol] 8.2 mg/dL Low 8.4-10.2 [facility] Comment on above: Order Comment: hemol yzed Performed By: #### C BC, ADIFF, ANEU, MDW, BMP, GFR, DIMER, TROPHS #### [address] [address] Chloride [Moles/Vol] 107 mmol/L Normal 98-107 [facility] Comment on above: Order Comment: hemol yzed Performed By: #### C BC, ADIFF, ANEU, MDW, BMP, GFR, DIMER, TROPHS #### [place] [address] CO2 [Moles/Vol] 26 mmol/L Normal 22-29 [facility] Comment on above: Order Comment: hemol yzed Performed By: #### C BC, ADIFF, ANEU, MDW, BMP, GFR, DIMER, TROPHS #### [place] [address] Creatinine [Mass/Vol] 0.63 mg/dL Normal 0.55-1.02 [facility] Comment on above: Order Comment: hemol yzed Result Comment: Test ing performed on Siemens Dimension EXL analyzer using a modified kinetic Manjula technique. Performed By: #### C BC, ADIFF, ANEU, MDW, BMP, GFR, DIMER, TROPHS #### [address] [address] Electrolyte Balance 7.0 mEq/L Normal 4.0-15.0 [facility] Comment on above: Order Comment: hemol yzed Performed By: #### C BC, ADIFF, ANEU, MDW, BMP, GFR, DIMER, TROPHS #### [address] [address] Globulin 2.9 G/dL Normal 1.5-3.8 [facility] Comment on above: Order Comment: hemol yzed Performed By: #### C BC, ADIFF, ANEU, MDW, BMP, GFR, DIMER, TROPHS #### [address] [address] Glucose [Mass/Vol] 87 mg/dL Normal 70-105 [facility] Comment on above: Order Comment: hemol yzed Performed By: #### C BC, ADIFF, ANEU, MDW, BMP, GFR, DIMER, TROPHS #### [address] [address] Potassium [Moles/Vol] 3.0 mmol/L Low 3.5-5.1 [facility] Comment on above: Order Comment: hemol yzed Performed By: #### C BC, ADIFF, ANEU, MDW, BMP, GFR, DIMER, TROPHS #### [address] [address] Sodium [Moles/Vol] 140 mmol/L Normal 136-145 [facility] Comment on above: Order Comment: hemol yzed Performed By: #### C BC, ADIFF, ANEU, MDW, BMP, GFR, DIMER, TROPHS #### [address] [address] Total Protein 6.4 G/dL Normal 6.4-8.2 [facility] Comment on above: Order Comment: hemol yzed Performed By: #### C BC, ADIFF, ANEU, MDW, BMP, GFR, DIMER, TROPHS #### [address] [address] Urea nitrogen [Mass/Vol] 4 mg/dL Low 7-18 [facility] Comment on above: Order Comment: hemol yzed Performed By: #### C BC, ADIFF, ANEU, MDW, BMP, GFR, DIMER, TROPHS #### [address] [address] [address] ABD/PELVIS W/ IV CONTRAST ONLYon 01-15-2025 [...] 01/15/2025 5:28:09 PM Ordering Provider: ULISES Gomez [facility] Comprehensive Metabolic Prof sepideh 01-15-2025 ALB Normal 3.2-5.0 [facility] Comment on above: Result Comment: NO S PECIMEN COLLECTED. PATIENT DEPARTED ED Performed By: #### L 700.6800, L500.4050, L100.0100 #### [facility] [address] [place], [address] ALK P Normal 45-117 [facility] Comment on above: Result Comment: NO S PECIMEN COLLECTED. PATIENT DEPARTED ED Performed By: #### L 700.6800, L500.4050, L100.0100 #### [facility] [address] [place], [address] ALT Normal 13-56 [facility] Comment on above: Result Comment: NO S PECIMEN COLLECTED. PATIENT DEPARTED ED Performed By: #### L 700.6800, L500.4050, L100.0100 #### [facility] [address] [place], [address] AST Normal 15-37 [facility] Comment on above: Result Comment: NO S PECIMEN COLLECTED. PATIENT DEPARTED ED Performed By: #### L 700.6800, L500.4050, L100.0100 #### [facility] [address] [place], [address] BUN Normal 7-18 [facility] Comment on above: Result Comment: NO S PECIMEN COLLECTED. PATIENT DEPARTED ED Performed By: #### L 700.6800, L500.4050, L100.0100 #### [facility] [address] [place], [address] BUN/CRE Normal 10-20 [facility] Comment on above: Result Comment: NO S PECIMEN COLLECTED. PATIENT DEPARTED ED Performed By: #### L 700.6800, L500.4050, L100.0100 #### [facility] [address] [place], [address] CA,Total Normal 8.5-10.1 [facility] Comment on above: Result Comment: NO S PECIMEN COLLECTED. PATIENT DEPARTED ED Performed By: #### L 700.6800, L500.4050, L100.0100 #### [facility] [address] [place], [address] CL Normal 98-107 [facility] Comment on above: Result Comment: NO S PECIMEN COLLECTED. PATIENT DEPARTED ED Performed By: #### L 700.6800, L500.4050, L100.0100 #### [facility] [address] [place], [address] CO2 Normal 21.0-32.0 [facility] Comment on above: Result Comment: NO S PECIMEN COLLECTED. PATIENT DEPARTED ED Performed By: #### L 700.6800, L500.4050, L100.0100 #### [facility] [address] [place], [address] CREAT,SERUM Normal 0.55-1.02 [facility] Comment on above: Result Comment: NO S PECIMEN COLLECTED. PATIENT DEPARTED ED Performed By: #### L 700.6800, L500.4050, L100.0100 #### [facility] [address] [place], [address] EST GFR Normal >60 [facility] Comment on above: Result Comment: NO S PECIMEN COLLECTED. PATIENT DEPARTED ED Performed By: #### L 700.6800, L500.4050, L100.0100 #### [facility] [address] [place], [address] EST GFR - AA Normal >60 [facility] Comment on above: Result Comment: NO S PECIMEN COLLECTED. PATIENT DEPARTED ED Performed By: #### L 700.6800, L500.4050, L100.0100 #### [facility] [address] [place], [address] GAP Normal 5-15 [facility] Comment on above: Result Comment: NO S PECIMEN COLLECTED. PATIENT DEPARTED ED Performed By: #### L 700.6800, L500.4050, L100.0100 #### [facility] [address] [place], [address] GLU Normal 74-106 [facility] Comment on above: Result Comment: NO S PECIMEN COLLECTED. PATIENT DEPARTED ED Performed By: #### L 700.6800, L500.4050, L100.0100 #### [facility] [address] [place], [address] Potassium Normal 3.5-5.1 [facility] Comment on above: Result Comment: NO S PECIMEN COLLECTED. PATIENT DEPARTED ED Performed By: #### L 700.6800, L500.4050, L100.0100 #### [facility] [address] [place], [address] T BILI Normal 0.20-1.00 [facility] Comment on above: Result Comment: NO S PECIMEN COLLECTED. PATIENT DEPARTED ED Performed By: #### L 700.6800, L500.4050, L100.0100 #### [facility] [address] [place], [address] T PROT Normal 6.4-8.2 [facility] Comment on above: Result Comment: NO S PECIMEN COLLECTED. PATIENT DEPARTED ED Performed By: #### L 700.6800, L500.4050, L100.0100 #### [facility] [address] [place], [address] Comprehensive Metabolic Profil Normal 136-145 [facility] Comment on above: Result Comment: NO S PECIMEN COLLECTED. PATIENT DEPARTED ED Performed By: #### L 700.6800, L500.4050, L100.0100 #### [facility] [address] [place], [address] LABORATORYOrdered By: Robin Mansfield on 01-15-2025 Appearance [...] 01-15-2025 Lipase Level 12 U/L Low 16-77 [facility] Comment on above: Performed By: #### C BC, ADIFF, ANEU, MDW, BMP, GFR, DIMER, TROPHS #### [place] [id number] [place], [place] [address] ,Serum,hCG Quali.on 01-15-2025 HCG, SERUM QUAL Normal [facility] Comment on above: Result Comment: NO S PECIMEN COLLECTED. PATIENT DEPARTED ED. Performed By: #### L 700.6800, L500.4050, L100.0100 #### [facility] [address] [place], [address] INTERNAL QC OK? Normal [facility] Comment on above: Result Comment: NO S PECIMEN COLLECTED. PATIENT DEPARTED ED. Performed By: #### L 700.6800, L500.4050, L100.0100 #### [facility] [address] [place], [address] RECORD KIT LOT# Normal [facility] Comment on above: Result Comment: NO S PECIMEN COLLECTED. PATIENT DEPARTED ED. Performed By: #### L 700.6800, L500.4050, L100.0100 #### [facility] [address] [place], [address] UAon 01-15-2025 Color (U) Yellow Normal [facility] Comment on above: Performed By: #### C GLADYS CA ANEU, MDW, BMP, GFR, DIMER, TROPHS #### [address] [address] Glucose (U) [Mass/Vol] Negative Normal Negative [facility] Comment on above: Performed By: #### C GLADYS CA ANEU, MDW, BMP, GFR, DIMER, TROPHS #### [address] [address] Ketones Ql (U) Negative Normal Negative [facility] Comment on above: Performed By: #### C GLADYS CA ANEU, MDW, BMP, GFR, DIMER, TROPHS #### [address] [address] UA Appear Clear Normal Clear [facility] Comment on above: Performed By: #### C GLADYS CA ANEU, MDW, BMP, GFR, DIMER, TROPHS #### [address] [address] UA Blood Negative Normal Negative [facility] Comment on above: Performed By: #### C ROBY, GLADYS, JIMENEZ, MDW, BMP, GFR, DIMER, TROPHS #### [address] [address] UA Leuk Est Negative Normal Negative [facility] Comment on above: Performed By: #### C ROBY, GLADYS, JIMENEZ, MDW, BMP, GFR, DIMER, TROPHS #### [address] [address] UA Nitrite Negative Normal Negative [facility] Comment on above: Performed By: #### C ROBY, GLADYS, JIMENEZ, MDW, BMP, GFR, DIMER, TROPHS #### [address] [address] UA pH 7.0 Normal 5.0 - 8.0 [facility] Comment on above: Performed By: #### C ROBY, JIMENEZ GRAHAM, MDW, BMP, GFR, DIMER, TROPHS #### [address] [address] UA Protein Negative Normal Negative [facility] Comment on above: Performed By: #### C ROBY, GLADYS, JIMENEZ, MDW, BMP, GFR, DIMER, TROPHS #### [address] [address] UA Spec Grav 1.015 Normal 1.015-1.02 5 [facility] Comment on above: Performed By: #### C ROBY, GLADYS, JIMENEZ, MDW, BMP, GFR, DIMER, TROPHS #### [address] [address] UA Specimen Type Clean Catch Normal [facility] Comment on above: Performed By: #### C ROBY, GLADYS, JIMENEZ, MDW, BMP, GFR, DIMER, TROPHS #### [address] [address] UA Urobilinogen 1.0 E.U./dL Normal 0.2-1.0 [facility] Comment on above: Performed By: #### C GLADYS CA ANEU, MDW, BMP, GFR, DIMER, TROPHS #### [place] [address] [place], [place] [address] Urobilinogen (U) [Mass/Vol] Negative Normal Negative [facility] Comment on above: Performed By: #### C GLADYS CA ANEU, MDW, BMP, GFR, DIMER, TROPHS #### [facility] [address] [place], [place] [address] CNOVon 01-08-2025 CNOV Office Visit (GENSWS ) ANNE CHUNG ([id number]) 1985 F Date Time Provider Department 01/08/25 11:00 AM MALLORY MARRERO During your visit today, we recorded the following information about you: Temperature Pulse Respiration Blood pressure 97.3 degrees 90/minute 14/minute 102/62 Weight Height 66.7 kg 1.524 m Mallory Marrero APRN.CNP 01/08/2025 1:34 PM Signed HISTORY AND PHYSICAL Anne L Sheldon : 1985 REFERRING PHYSICIAN: [facility] [address] CHIEF COMPLAINT: Patient presents with: Consult: GERD [...] colonoscopy was 10/[address] Escalona at [facility]. Sedation: MAC EGD Impression: - Normal [...] Problems S (more content not included)... Normal [facility] [place] 01-08-2025 [facility] Telephone ([employer]) ANNE CHUNG ([id number]) 1985 F Date Time Provider Department 01/08/25 MALLORY MARRERO SetredS During your visit today, we recorded the following information about you: Virgilio Ignacio 01/08/2025 11:45 AM Signed offered patient EGD in [place] 01-09-2025 patient declined. 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 Today reports she is from her , has a lot of stress, wonders if she might have an ulcer. She reports remote history of ulcer. CC EGD 2010 and 2015 did not demonstrate this. She reports COAGULANT DIPPER discontinue paroxetine which she was using for hot flashes. Currently on estradiol transdermal patch. 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 Taking ibuprofen and acetominophen for abdominal pain. [...] reports ports seeing counselor at [facility]. Review of Systems Gastrointestinal: Positive [...] ICD9: 309. (more content not included)... Normal [facility] Bacteria Ur Culton 4 Bacteria identified Cx Nom (U) ORGANISM ID: 1 10,000 -<50,000 CFU/ml Mixed microbiota No further workup. Mixed microbiota can be due to???urine???contamination with skin bacteria at time of collection or presence of a long-term urinary catheter. If a new culture is needed, please consider re-education of the patient on proper midstream collection technique or straight catheterization for???urine???collection. Normal [facility] Comment on above: Performed By: #### 6 30-4 ####[facility] LABCLIA [id number] [address] [facility] CNOVon 10-20-2024 CNOV Office Visit (INTMWS ) ANNE CHUNG ([id number]) 1985 F Date Time Provider Department 10/20/24 7:40 PM YASSINE LINK INTMWS During your visit today, we recorded the following information about you: Temperature Pulse Respiration Blood pressure 97.6 degrees 68/minute 18/minute 112/70 Weight 68.1 kg Yassine Link MD 10/21/2024 8:30 AM Signed This note was created using [employer]. Subjective Patient presents with: UTI Anne Chung is a 38 year old female, concerned about bladder or kidney infection. She started having dysuria, frequency, urgency 5 days ago with low back pain. She was hydrating well and denied recent febrile illness. She had no fever, chills, or sweats. She denied vaginal discharge. She was scheduled to see her jd edwards next week (Dr. Cunningham). Review of Systems [...] culture is not consistent, she will see jd edwards as scheduled. Hydration stressed. We agreed to [...] to f (more content not included)... Normal [facility] UA DIP, URINE (POC)on 2023 BILIRUBIN UA (POCT) Small Abnormal Negative [facility] CLARITY UA (POCT) Clear [facility] COLOR UA (POCT) Dark yellow [facility] GLUCOSE UA (POCT) Negative Negative mg/dL [facility] Hemoglobin Ql (U) Negative Negative [facility] Interpretation and review of laboratory results Abnormal [facility] KETONE UA (POCT) Trace Negative mg/dL [facility] LEUKOCYTES UA (POCT) Negative Negative [facility] NITRITE UA (POCT) Negative Negative [facility] PH UA (POCT) 6.0 4.5 - 8.0 [facility] Protein Ql (U) 100 mg/dL Abnormal Negative [facility] SPECIFIC GRAVITY UA (POCT) >=1.030 1.005 - 1.030 [facility] UROBILINOGEN UA (POCT) 0.2 Philomena l E.U./dL [facility] Location:[facility], [address] [place] [address], [place], [place], [id number] [place] [address] POINT OF CARE [facility] FT3on 06-12-2024 Free T3 [Mass/Vol] 4.70 pg/mL High 2.30-4.00 [facility] ([place]) Comment on above: Performed By: #### F T4, TSH, FT3 #### [address] [address] FT4on 06-12-2024 Free T4 [Mass/Vol] 1.31 ng/dL Normal 0.76-1.46 [facility] ([place]) Comment on above: Performed By: #### F T4, TSH, FT3 #### [address] [address] LABORATORYOrdered By: SYSTEM SYSTEM on 06-12-2024 Free T3 [Mass/Vol] 4.70 pg/mL High 2.30 - 4.00 pg/mL AO ADM SS Free T4 [Mass/Vol] 1.31 ng/dL Normal 0.76 - 1.46 ng/dL AO ADM SS TSH Qn 3.56 m[IU]/L Normal 0.36 - 3.74 mcIU/mL AO ADM SS TSHon 06-12-2024 TSH Qn 3.56 m[IU]/L Normal 0.36-3.74 [facility] ([place]) Comment on above: Performed By: #### F T4, TSH, FT3 #### [address] [address] Absolute lymphocyte countOrd ered By: Kathia Dean on 11-11-2023 Lymphocytes Auto (Unsp spec) [#/Vol] 2.58 10*3/uL 0.83-4.51 [facility] Amorphous sediment detection in urine sediment by light microscopyOrdered By: Kathia Dean on 11-11-2023 Amorphous sediment LM Ql (Urine sed) 2+ [facility] Basophil percentageOrdered B y: Kathia Mylesanh on 11-11-2023 Basophil percentage 0 SEEN /hpf 0-5 [facility] Basophils/100 WBC (Bld) 0.7 % 0-1 [facility] Bilirubin [Mass/Vol] 0.60 mg/dL 0.20-1.00 [facility] Comment on above: For patients on eltr ombopag therapy, use of Dimension [place] TBIL is not recommended. Chloride [Moles/Vol] 110 mmol/L 98-107 [facility] Eosinophils/100 WBC (Bld) 2.0 % 0-5 [facility] Glucose [Mass/Vol] 96 mg/dL 74-106 [facility] Neutrophils (Bld) [#/Vol] 4.4 10*3/uL 2.0-7.7 [facility] Neutrophils/100 WBC (Bld) 57.5 % 47-70 [facility] Potassium [Moles/Vol] 4.0 mmol/L 3.5-5.1 [facility] Comment on above: Slight Hemolysis, Re sult may be falsely increased. Protein [Mass/Vol] 7.8 g/dL 6.4-8.2 [facility] Sodium [Moles/Vol] 140 mmol/L 136-145 [facility] WBC (Bld) [#/Vol] 7.6 10*3/uL 4.4-11.0 [facility] Bilirubin Test strip Ql (U)O rdered By: Kathia Dean on 11-11-2023 Bilirubin Ql (U) Negative Negative [facility] Blood erythrocytes count (nu mber/volume)Ordered By: Kathia Dean on 11-11-2023 RBC (Bld) [#/Vol] 4.64 10*6/uL 4.2-5.4 [facility] Blood hemoglobin measurement (mass/volume)Ordered By: Kathia Dean on 11-11-2023 Hemoglobin (Bld) [Mass/Vol] 14.8 g/dL 12.0-15.0 [facility] Blood lymphocytes/100 leukoc ytesOrdered By: Kathia Dean on 11-11-2023 Lymphocytes/100 WBC (Bld) 33.8 % 19-41 [facility] Blood monocytes/100 leukocyt esOrdered By: Kathia Dean on 11-11-2023 Monocytes/100 WBC (Bld) 5.6 % 0-10 [facility] Blood platelet mean volumeOr dered By: Kathia Dean on 11-11-2023 Platelet mean volume (Bld) [Entitic vol] 10.3 fL 6.2-12.0 [facility] Determination of erythrocyte mean corpuscular volume (MCV)Ordered By: Kathia Dean on 11-11-2023 MCV (RBC) [Entitic vol] 93.3 fL 81-99 [facility] Hematocrit Auto (Bld) [Volum e fraction][facility]: [facility] on 11-11-2023 Hematocrit (Bld) [Volume fraction] 43.3 % 37-47 [facility] Ketones Test strip Ql (U)Ord ered By: [facility] on 11-11-2023 Ketones Ql (U) 15 mg/dl Negative [facility] Laboratory - Chemistry and C hemistry - challengeOrdered By: [facility] on 11-11-2023 ALP [Catalytic activity/Vol] 69 U/L 45-117 [facility] ALT [Catalytic activity/Vol] 22 U/L 13-56 [facility] CO2 [Moles/Vol] 26.0 mmol/L 21.0-32.0 [facility] Globulin (S) [Mass/Vol] 3.8 g/dL 2.2-4.2 [facility] Lipase [Catalytic activity/Vol] 18 U/L 13-75 [facility] Comment on above: Please note:LIPASE r evised reference range effective 23. New Lipase methodology. Expected to produce lower values than the previous assay method. NEW Reference Range: 13 - 75 U/L Urea nitrogen/Creatinine [Mass ratio] 11.8 mg/mg 10-20 [facility] - Hematology and Cell countsOrdered By: Kathia Dean on 11-11-2023 Erythrocyte distribution width (RBC) [Entitic vol] 43.0 fL 35.1-43.9 [facility] Erythrocyte distribution width (RBC) [Ratio] 12.5 % 11.6-14.6 [facility] Immature granulocytes/100 WBC (Bld) 0.400 % 0.0-0.9 [facility] Comment on above: IG% - Immature Granu locytes (promyelocytes, myelocytes and metamyelocytes) > 1% indicates that a LEFT SHIFT is Present. MCH (RBC) [Entitic mass] 31.9 pg 27.0-32.0 [facility] Nucleated RBC/100 WBC (Bld) [Ratio] 0 % 0-5 [facility] MCHC Auto (RBC) [Mass/Vol]Or dered By: Kathia Dean on 11-11-2023 MCHC (RBC) [Mass/Vol] 34.2 g/dL 32-36 [facility] Mucus LM Ql (Urine sed)Order ed By: Kathia Dean on 11-11-2023 Mucus Ql (Urine sed) 0 SEEN /hpf [facility] Nitrite Test strip Ql (U)Ord ered By: Kathia Dean on 11-11-2023 Nitrite Ql (U) Negative Negative [facility] No Panel InformationOrdered By: Kathia Dean on 11-11-2023 Estimated Creatinine Clearance Calc 80.57 ml/min [facility] Estimated GFR (MDRD) Amer 124 mL/min >60 [facility] Comment on above: GFR Calc Estimated GFR (MDRD) Non-Af Amer 102 mL/min >60 [facility] Comment on above: Non- GFR Calc Platelets bldOrdered By: Opal Dean on 11-11-2023 Platelets (Bld) [#/Vol] 201 10*3/uL 150-450 [facility] Protein Test strip Ql (U)Ord ered By: Remus Dean on 11-11-2023 Protein Ql (U) 15 mg/dl Negative [facility] Serum or plasma albumin adelita urement (mass/volume)Ordered By: Kathia Dean on 11-11-2023 Albumin [Mass/Vol] 4.0 g/dL 3.2-5.0 [facility] Serum or plasma albumin/glob ulin mass ratioOrdered By: Kathia Dean on 11-11-2023 Albumin/Globulin [Mass ratio] 1.1 {ratio} 0.9-2.4 [facility] Serum or plasma calcium adelita urement (mass/volume)Ordered By: Kathia Dean on 11-11-2023 Calcium [Mass/Vol] 10.0 mg/dL 8.5-10.1 [facility] Serum or plasma creatinine m easurement (mass/volume)Ordered By: Kathia Dean on 11-11-2023 Creatinine [Mass/Vol] 0.68 mg/dL 0.55-1.02 [facility] Comment on above: The validity of the calculated GFR & GFRAA in patients over 70 years has not been determined. Clinical correlation is essential. Serum or plasma urea nitroge n measurement (mass/volume)Ordered By: Kathia Dean on 11-11-2023 Urea nitrogen [Mass/Vol] 8 mg/dL 7-18 [facility] Squamous epithelial cells de tection in urine sediment by light microscopyOrdered By: Kathia Dean on 11-11-2023 Epithelial cells.squamous LM Ql (Urine sed) 0 SEEN /hpf 5-10 [facility] Thin prep Papanicolaou smear with manual screeningOrdered By: Kathia Dean on 11-11-2023 Thin prep Papanicolaou smear with manual screening 15 U/L 15-37 [facility] Comment on above: Slight Hemolysis, Re sult may be falsely increased. Thin prep Papanicolaou smear with manual screening 4 5-15 [facility] Urine blood detectionOrdered By: Kathia Dean on 11-11-2023 RBC Ql (U) Negative Negative [facility] RBC Ql (U) 0 SEEN /hpf 0-5 [facility] Urine clarityOrdered By: Opal Dean on 11-11-2023 Clarity (U) Clear Clear [facility] Urine color determinationOrd ered By: Kathia Dean on 11-11-2023 Color (U) Yellow Yellow [facility] Urine glucose detectionOrder ed By: Kathia Dean on 11-11-2023 Glucose Ql (U) Normal mg/dl Normal [facility] Urine leukocyte esterase det ection by dipstickOrdered By: Kathia Dean on 11-11-2023 Leukocyte esterase Test strip Ql (U) Negative Negative [facility] Urine pHOrdered By: Kathia Rhoades gur on 11-11-2023 pH (U) 7.0 [pH] 5.0 - 8.0 [facility] Urine sediment bacteria coun t by microscopy (number/high power field)Ordered By: [facility] Dianne on 11-11-2023 Bacteria LM.HPF (Urine sed) [#/Area] 0 /[HPF] None Seen [facility] Urine specific gravity measu rementOrdered By: [facility] Dianne on 11-11-2023 Specific gravity (U) [Rel density] 1.015 1.002-1.03 0 [facility] Urobilinogen Auto test strip Ql (U)[facility]23 Urobilinogen Ql (U) 1 mg/dl Normal [facility] Absolute lymphocyte countOrd ered By: Christos Storm on 05-27-2023 Lymphocytes Auto (Unsp spec) [#/Vol] 2.39 10*3/uL 0.83-4.51 [facility] Basophil percentageOrdered B y: Christos Storm on 05-27-2023 Basophil percentage 0 SEEN /hpf 0-5 [facility] Basophils/100 WBC (Bld) 0.6 % 0-1 [facility] Bilirubin [Mass/Vol] 0.30 mg/dL 0.20-1.00 [facility] Comment on above: For patients on eltr ombopag therapy, use of Dimension [place] TBIL is not recommended. Chloride [Moles/Vol] 110 mmol/L 98-107 [facility] Eosinophils/100 WBC (Bld) 1.8 % 0-5 [facility] Glucose [Mass/Vol] 102 mg/dL 74-106 [facility] Comment on above: Fasting Glucose resu lt from 100 to 125 mg/dL suggests IMPAIRED HOMEOSTASIS per A.D.A. criteria. Neutrophils (Bld) [#/Vol] 6.4 10*3/uL 2.0-7.7 [facility] Neutrophils/100 WBC (Bld) 67.3 % 47-70 [facility] Potassium [Moles/Vol] 4.3 mmol/L 3.5-5.1 [facility] Comment on above: Slight Hemolysis, Re sult may be falsely increased. Protein [Mass/Vol] 6.6 g/dL 6.4-8.2 [facility] Sodium [Moles/Vol] 139 mmol/L 136-145 [facility] WBC (Bld) [#/Vol] 9.6 10*3/uL 4.4-11.0 [facility] Bilirubin Test strip Ql (U)O rdered By: Christos Storm on 05-27-2023 Bilirubin Ql (U) Negative Negative [facility] Blood erythrocytes count (nu mber/volume)Ordered By: Christos Storm on 05-27-2023 RBC (Bld) [#/Vol] 4.34 10*6/uL 4.2-5.4 [facility] Blood hemoglobin measurement (mass/volume)Ordered By: Christos Storm on 05-27-2023 Hemoglobin (Bld) [Mass/Vol] 14.3 g/dL 12.0-15.0 [facility] Blood lymphocytes/100 leukoc ytesOrdered By: Christos Storm on 05-27-2023 Lymphocytes/100 WBC (Bld) 25.0 % 19-41 [facility] Blood monocytes/100 leukocyt esOrdered By: Christos Storm on 05-27-2023 Monocytes/100 WBC (Bld) 5.0 % 0-10 [facility] Blood platelet mean volumeOr dered By: Christos Storm on 05-27-2023 Platelet mean volume (Bld) [Entitic vol] 10.9 fL 6.2-12.0 [facility] Determination of erythrocyte mean corpuscular volume (MCV)Ordered By: Christos Storm on 05-27-2023 MCV (RBC) [Entitic vol] 95.4 fL 81-99 [facility] Hematocrit Auto (Bld) [Volum e fraction]Ordered By: Christos Storm on 05-27-2023 Hematocrit (Bld) [Volume fraction] 41.4 % 37-47 [facility] Ketones Test strip Ql (U)Ord ered By: Christos Storm on 05-27-2023 Ketones Ql (U) Negative Negative [facility] Laboratory - Chemistry and C hemistry - challengeOrdered By: Christos Storm on 05-27-2023 ALP [Catalytic activity/Vol] 62 U/L 45-117 [facility] ALT [Catalytic activity/Vol] 24 U/L 13-56 [facility] CO2 [Moles/Vol] 27.0 mmol/L 21.0-32.0 [facility] Globulin (S) [Mass/Vol] 3.2 g/dL 2.2-4.2 [facility] Urea nitrogen/Creatinine [Mass ratio] 16.2 mg/mg 10-20 [facility] Laboratory - Hematology and Cell countsOrdered By: Christos Storm on 05-27-2023 Erythrocyte distribution width (RBC) [Entitic vol] 43.1 fL 35.1-43.9 [facility] Erythrocyte distribution width (RBC) [Ratio] 12.4 % 11.6-14.6 [facility] Immature granulocytes/100 WBC (Bld) 0.300 % 0.0-0.9 [facility] Comment on above: IG% - Immature Granu locytes (promyelocytes, myelocytes and metamyelocytes) > 1% indicates that a LEFT SHIFT is Present. MCH (RBC) [Entitic mass] 32.9 pg 27.0-32.0 [facility] Nucleated RBC/100 WBC (Bld) [Ratio] 0 % 0-5 [facility] MCHC Auto (RBC) [Mass/Vol]Or dered By: Christos Storm on 05-27-2023 MCHC (RBC) [Mass/Vol] 34.5 g/dL 32-36 [facility] Mucus LM Ql (Urine sed)Order ed By: Christos Storm on 05-27-2023 Mucus Ql (Urine sed) 0 SEEN /hpf [facility] Nitrite Test strip Ql (U)Ord ered By: Christos Storm on 05-27-2023 Nitrite Ql (U) Negative Negative [facility] No Panel InformationOrdered By: Christos Storm on 05-27-2023 Estimated Creatinine Clearance Calc 80.57 ml/min [facility] Estimated GFR (MDRD) Amer 125 mL/min >60 [facility] Comment on above: GFR Calc Estimated GFR (MDRD) Non-Af Amer 103 mL/min >60 [facility] Comment on above: Non- GFR Calc Platelets bldOrdered By: Garrick Storm on 05-27-2023 Platelets (Bld) [#/Vol] 212 10*3/uL 150-450 [facility] Protein Test strip Ql (U)Ord ered By: Christos Storm on 05-27-2023 Protein Ql (U) 30 mg/dl Negative [facility] Serum or plasma albumin adelita urement (mass/volume)Ordered By: Christos Storm on 05-27-2023 Albumin [Mass/Vol] 3.4 g/dL 3.2-5.0 [facility] Serum or plasma albumin/glob ulin mass ratioOrdered By: Christos Storm on 05-27-2023 Albumin/Globulin [Mass ratio] 1.1 {ratio} 0.9-2.4 [facility] Serum or plasma calcium adelita urement (mass/volume)Ordered By: Christos Storm on 05-27-2023 Calcium [Mass/Vol] 9.0 mg/dL 8.5-10.1 [facility] Serum or plasma creatinine m easurement (mass/volume)Ordered By: Christos Storm on 05-27-2023 Creatinine [Mass/Vol] 0.68 mg/dL 0.55-1.02 [facility] Comment on above: The validity of the calculated GFR & GFRAA in patients over 70 years has not been determined. Clinical correlation is essential. Serum or plasma urea nitroge n measurement (mass/volume)Ordered By: Christos Storm on 05-27-2023 Urea nitrogen [Mass/Vol] 11 mg/dL 7-18 [facility] Squamous epithelial cells de tection in urine sediment by light microscopyOrdered By: Christos Storm on 05-27-2023 Epithelial cells.squamous LM Ql (Urine sed) 0-5 SEEN /hpf 5-10 [facility] Thin prep Papanicolaou smear with manual screeningOrdered By: Christos Storm on 05-27-2023 Thin prep Papanicolaou smear with manual screening 14 U/L 15-37 [facility] Comment on above: Slight Hemolysis, Re sult may be falsely increased. Thin prep Papanicolaou smear with manual screening 2 5-15 [facility] Urine blood detectionOrdered By: Christos Storm on 05-27-2023 RBC Ql (U) Negative Negative [facility] RBC Ql (U) 0 SEEN /hpf 0-5 [facility] Urine clarityOrdered By: Garrick Storm on 05-27-2023 Clarity (U) Clear Clear [facility] Urine color determinationOrd ered By: Christos Storm on 05-27-2023 Color (U) Yellow Yellow [facility] Urine glucose detectionOrder ed By: Christos Storm on 05-27-2023 Glucose Ql (U) Normal mg/dl Normal [facility] Urine leukocyte esterase det ection by dipstickOrdered By: Christos Storm on 05-27-2023 Leukocyte esterase Test strip Ql (U) 25 /ul Negative [facility] Urine pHOrdered By: Christos perez on 05-27-2023 pH (U) 8.0 [pH] 5.0 - 8.0 [facility] Urine sediment bacteria coun t by microscopy (number/high power field)Ordered By: Christos Storm on 05-27-2023 Bacteria LM.HPF (Urine sed) [#/Area] 0 /[HPF] None Seen [facility] Urine specific gravity measu rementOrdered By: Christos Storm on 05-27-2023 Specific gravity (U) [Rel density] 1.010 1.002-1.03 0 [facility] Urobilinogen Auto test strip Ql (U)Ordered By: Christos Storm on 05-27-2023 Urobilinogen Ql (U) 1 mg/dl Normal [facility] Absolute lymphocyte countOrd ered By: Dr. Gillis on 09-26-2022 Lymphocytes Auto (Unsp spec) [#/Vol] 4.03 10*3/uL 0.83-4.51 [facility] Amorphous sediment detection in urine sediment by light microscopyOrdered By: Dr. Gillis on 09-26-2022 Amorphous sediment LM Ql (Urine sed) 1+ [facility] Basophil percentageOrdered B y: Dr. Gillis on 09-26-2022 Basophils/100 WBC (Bld) 0.7 % 0-1 [facility] Chloride [Moles/Vol] 107 mmol/L 98-107 [facility] Eosinophils/100 WBC (Bld) 2.1 % 0-5 [facility] Glucose [Mass/Vol] 87 mg/dL 74-106 [facility] Neutrophils (Bld) [#/Vol] 5.8 10*3/uL 2.0-7.7 [facility] Neutrophils/100 WBC (Bld) 53.3 % 47-70 [facility] Potassium [Moles/Vol] 4.3 mmol/L 3.5-5.1 [facility] Sodium [Moles/Vol] 138 mmol/L 136-145 [facility] WBC (Bld) [#/Vol] 11.0 10*3/uL 4.4-11.0 [facility] Basophil percentage 0-5 SEEN /hpf 0-5 [facility] Bilirubin Test strip Ql (U)O rdered By: Dr. Gillis on 09-26-2022 Bilirubin Ql (U) Negative Negative [facility] Blood erythrocytes count (nu mber/volume)Ordered By: Dr. Gillis on 09-26-2022 RBC (Bld) [#/Vol] 4.73 10*6/uL 4.2-5.4 [facility] Blood hemoglobin measurement (mass/volume)Ordered By: Dr. Gillis on 09-26-2022 Hemoglobin (Bld) [Mass/Vol] 15.7 g/dL 12.0-15.0 [facility] Blood lymphocytes/100 leukoc ytesOrdered By: Dr. Gillis on 09-26-2022 Lymphocytes/100 WBC (Bld) 36.8 % 19-41 [facility] Blood monocytes/100 leukocyt esOrdered By: Dr. Gillis on 09-26-2022 Monocytes/100 WBC (Bld) 6.2 % 0-10 [facility] Blood platelet adequacy dete ction by light microscopyOrdered By: Dr. Gillis on 09-26-2022 Platelets LM Ql (Bld) ADEQUATE ADEQ [facility] Blood platelet mean volumeOr dered By: Dr. Gillis on 09-26-2022 Platelet mean volume (Bld) [Entitic vol] 11.0 fL 6.2-12.0 [facility] Determination of erythrocyte mean corpuscular volume (MCV)Ordered By: Dr. Gillis on 09-26-2022 MCV (RBC) [Entitic vol] 94.3 fL 81-99 [facility] Hematocrit Auto (Bld) [Volum e fraction]Ordered By: Dr. Gillis on 09-26-2022 Hematocrit (Bld) [Volume fraction] 44.6 % 37-47 [facility] Ketones Test strip Ql (U)Ord ered By: Dr. Gillis on 09-26-2022 Ketones Ql (U) Negative Negative [facility] Laboratory - Chemistry and C hemistry - challengeOrdered By: Dr. Gillis on 09-26-2022 CO2 [Moles/Vol] 25.0 mmol/L 21.0-32.0 [facility] Urea nitrogen/Creatinine [Mass ratio] 16.7 mg/mg 10-20 [facility] Laboratory - Hematology and Cell countsOrdered By: Dr. Gillis on 09-26-2022 Erythrocyte distribution width (RBC) [Entitic vol] 41.7 fL 35.1-43.9 [facility] Erythrocyte distribution width (RBC) [Ratio] 12.0 % 11.6-14.6 [facility] Immature granulocytes/100 WBC (Bld) 0.900 % 0.0-0.9 [facility] Comment on above: IG% - Immature Granu locytes (promyelocytes, myelocytes and metamyelocytes) > 1% indicates that a LEFT SHIFT is Present. MCH (RBC) [Entitic mass] 33.2 pg 27.0-32.0 [facility] Nucleated RBC/100 WBC (Bld) [Ratio] 0 % 0-5 [facility] MCHC Auto (RBC) [Mass/Vol]Or dered By: Dr. Gillis on 09-26-2022 MCHC (RBC) [Mass/Vol] 35.2 g/dL 32-36 [facility] Mucus LM Ql (Urine sed)Order ed By: Dr. Gillis on 09-26-2022 Mucus Ql (Urine sed) 0 SEEN /hpf [facility] Nitrite Test strip Ql (U)Ord ered By: Dr. Gillis on 09-26-2022 Nitrite Ql (U) Negative Negative [facility] No Panel InformationOrdered By: Dr. Gillis on 09-26-2022 Estimated Creatinine Clearance Calc 92.21 ml/min [facility] Estimated GFR (MDRD) Amer 145 mL/min >60 [facility] Comment on above: GFR Calc Estimated GFR (MDRD) Non-Af Amer 120 mL/min >60 [facility] Comment on above: Non- GFR Calc Platelets bldOrdered By: Dr. Gillis on 09-26-2022 Platelets (Bld) [#/Vol] 182 10*3/uL 150-450 [facility] Protein Test strip Ql (U)Ord ered By: Dr. Gillis on 09-26-2022 Protein Ql (U) Negative Negative [facility] RBC morphologyOrdered By: Dr Benita Gillis on 09-26-2022 RBC morphology finding Nom (Bld) NORM C+C NORMAL NORM C&C [facility] Serum or plasma calcium adelita urement (mass/volume)Ordered By: Dr. Gillis on 09-26-2022 Calcium [Mass/Vol] 9.0 mg/dL 8.5-10.1 [facility] Serum or plasma creatinine m easurement (mass/volume)Ordered By: Dr. Gillis on 09-26-2022 Creatinine [Mass/Vol] 0.60 mg/dL 0.55-1.02 [facility] Comment on above: The validity of the calculated GFR & GFRAA in patients over 70 years has not been determined. Clinical correlation is essential. Serum or plasma urea nitroge n measurement (mass/volume)Ordered By: Dr. Gillis on 09-26-2022 Urea nitrogen [Mass/Vol] 10 mg/dL 7-18 [facility] Squamous epithelial cells de tection in urine sediment by light microscopyOrdered By: Dr. Gillis on 09-26-2022 Epithelial cells.squamous LM Ql (Urine sed) 5-10 SEEN /hpf 5-10 [facility] Thin prep Papanicolaou smear with manual screeningOrdered By: Dr. Gillis on 09-26-2022 Thin prep Papanicolaou smear with manual screening 6 5-15 [facility] Urine blood detectionOrdered By: Dr. Gillis on 09-26-2022 RBC Ql (U) Negative Negative [facility] RBC Ql (U) 0 SEEN /hpf 0-5 [facility] Urine clarityOrdered By: Dr. Gillis on 09-26-2022 Clarity (U) Sl. Cloudy Clear [facility] Urine color determinationOrd ered By: Dr. Gillis on 09-26-2022 Color (U) Yellow Yellow [facility] Urine glucose detectionOrder ed By: Dr. Gillis on 09-26-2022 Glucose Ql (U) Normal mg/dl Normal [facility] Urine leukocyte esterase det ection by dipstickOrdered By: Dr. Gillis on 09-26-2022 Leukocyte esterase Test strip Ql (U) Negative Negative [facility] Urine pHOrdered By: Dr. Harvey cox on 09-26-2022 pH (U) 8.0 [pH] 5.0 - 8.0 [facility] Urine sediment bacteria coun t by microscopy (number/high power field)Ordered By: Dr. Gillis on 09-26-2022 Bacteria LM.HPF (Urine sed) [#/Area] RARE /hpf None Seen [facility] Urine specific gravity measu rementOrdered By: Dr. Gillis on 09-26-2022 Specific gravity (U) [Rel density] 1.015 1.002-1.03 0 [facility] Urobilinogen Auto test strip Ql (U)Ordered By: Dr. Gillis on 09-26-2022 Urobilinogen Ql (U) Normal mg/dl Normal [facility] UA DIP, URINE (POC)on 2021 BILIRUBIN UA (POCT) Negative Negative [facility] CLARITY UA (POCT) Slightly Cloudy Cl [facility] COLOR UA (POCT) Yellow [facility] GLUCOSE UA (POCT) Negative Negative mg/dL [facility] HEMOGLOBIN/BLOOD UA (POCT) Negative Negative [facility] KETONE UA (POCT) Negative Negative mg/dL [facility] LEUKOCYTES UA (POCT) Trace Abnormal Negative [facility] NITRITE UA (POCT) Negative Negative [facility] PH UA (POCT) 6.5 4.5 - 8.0 [facility] Protein Ql (U) Negative Negative mg/dL [facility] SPECIFIC GRAVITY UA (POCT) 1.025 1.005 - 1.030 [facility] UROBILINOGEN UA (POCT) 0.2 E.U./dL [facility] l E.U./dL [facility] Basophil percentageon 2021 Basophil percentage 0-5 SEEN /hpf 0-5 [facility] Work Phone: Bilirubin Test strip Ql (U)o n 07-27-2022 Bilirubin Ql (U) Negative Negative [facility] Work Phone: Glucose Glucometer (BldC) [M ass/Vol]on 07-27-2022 Glucose [Mass/Vol] 90 mg/dL 74-106 [facility] Work Phone: Comment on above: MANAGEMENT OF PATIEN T CARE PER NURSING PROTOCOL Ketones Test strip Ql (U)on 07-27-2022 Ketones Ql (U) Negative Negative [facility] Work Phone: Mucus LM Ql (Urine sed)on Mucus Ql (Urine sed) 0 SEEN /hpf [facility] Work Phone: Nitrite Test strip Ql (U)on 07-27-2022 Nitrite Ql (U) Negative Negative [facility] Work Phone: Protein Test strip Ql (U)on 07-27-2022 Protein Ql (U) Negative Negative [facility] Work Phone: Squamous epithelial cells de tection in urine sediment by light microscopyon 07-27-2022 Epithelial cells.squamous LM Ql (Urine sed) 0-5 SEEN /hpf 5-10 [facility] Work Phone: Urine blood detectionon RBC Ql (U) Negative Negative [facility] Work Phone: RBC Ql (U) 0 SEEN /hpf 0-5 [facility] Work Phone: Urine clarityon 07-27-2022 Clarity (U) Clear Clear [facility] Work Phone: Urine color determinationon 07-27-2022 Color (U) Yellow Yellow [facility] Work Phone: Urine glucose detectionon Glucose Ql (U) Normal mg/dl Normal [facility] Work Phone: Urine leukocyte esterase det ection by dipstickon 07-27-2022 Leukocyte esterase Test strip Ql (U) Negative Negative [facility] Work Phone: Urine pHon 07-27-2022 pH (U) 6.0 [pH] 5.0 - 8.0 [facility] Work Phone: Urine sediment bacteria coun t by microscopy (number/high power field)on 07-27-2022 Bacteria LM.HPF (Urine sed) [#/Area] 4 /[HPF] None Seen [facility] Work Phone: Urine specific gravity measu rementon 07-27-2022 Specific gravity (U) [Rel density] 1.020 1.002-1.03 0 [facility] Work Phone: [phone] Urobilinogen Auto test strip Ql (U)on 07-27-2022 Urobilinogen Ql (U) Normal mg/dl Normal [facility] Work Phone: [phone] Absolute lymphocyte counton 05-30-2022 Lymphocytes Auto (Unsp spec) [#/Vol] 3.22 10*3/uL 0.83-4.51 [facility] Work Phone: Basophil percentageon 2021 Basophils/100 WBC (Bld) 0.7 % 0-1 [facility] Work Phone: [phone] Bilirubin [Mass/Vol] 0.20 mg/dL 0.20-1.00 [facility] Work Phone: Comment on above: For patients on eltr ombopag therapy, use of Dimension [place] TBIL is not recommended. Chloride [Moles/Vol] 111 mmol/L 98-107 [facility] Work Phone: [phone] Eosinophils/100 WBC (Bld) 2.0 % 0-5 [facility] Work Phone: [phone] Glucose [Mass/Vol] 89 mg/dL 74-106 [facility] Work Phone: [phone] Neutrophils (Bld) [#/Vol] 4.8 10*3/uL 2.0-7.7 [facility] Work Phone: [phone] Neutrophils/100 WBC (Bld) 54.5 % 47-70 [facility] Work Phone: [phone] Potassium [Moles/Vol] 4.2 mmol/L 3.5-5.1 [facility] Work Phone: [phone] Protein [Mass/Vol] 7.1 g/dL 6.4-8.2 [facility] Work Phone: [phone] Sodium [Moles/Vol] 141 mmol/L 136-145 [facility] Work Phone: WBC (Bld) [#/Vol] 8.8 10*3/uL 4.4-11.0 [facility] Work Phone: Blood erythrocytes count (nu mber/volume)on 05-30-2022 RBC (Bld) [#/Vol] 4.69 10*6/uL 4.2-5.4 [facility] Work Phone: Blood hemoglobin measurement (mass/volume)on 05-30-2022 Hemoglobin (Bld) [Mass/Vol] 14.9 g/dL 12.0-15.0 [facility] Work Phone: Blood lymphocytes/100 leukoc yteson 05-30-2022 Lymphocytes/100 WBC (Bld) 36.6 % 19-41 [facility] Work Phone: Blood monocytes/100 leukocyt eson 05-30-2022 Monocytes/100 WBC (Bld) 5.9 % 0-10 [facility] Work Phone: Blood platelet mean volumeon 05-30-2022 Platelet mean volume (Bld) [Entitic vol] 11.2 fL 6.2-12.0 [facility] Work Phone: Determination of erythrocyte mean corpuscular volume (MCV)on 05-30-2022 MCV (RBC) [Entitic vol] 95.5 fL 81-99 [facility] Work Phone: Direct bilirubinon 2 Bilirubin.direct [Mass/Vol] 0.10 mg/dL 0.00-0.30 [facility] Work Phone: Hematocrit Auto (Bld) [Volum e fraction]on 05-30-2022 Hematocrit (Bld) [Volume fraction] 44.8 % 37-47 [facility] Work Phone: Laboratory - Chemistry and C hemistry - challengeon 05-30-2022 ALP [Catalytic activity/Vol] 77 U/L 45-117 [facility] Work Phone: ALT [Catalytic activity/Vol] 23 U/L 13-56 [facility] Work Phone: CO2 [Moles/Vol] 28.0 mmol/L 21.0-32.0 [facility] Work Phone: Globulin (S) [Mass/Vol] 3.4 g/dL 2.2-4.2 [facility] Work Phone: Lipase [Catalytic activity/Vol] 77 U/L 73-393 [facility] Work Phone: Urea nitrogen/Creatinine [Mass ratio] 15.2 mg/mg 10-20 [facility] Work Phone: Laboratory - Hematology and Cell countson 05-30-2022 Erythrocyte distribution width (RBC) [Entitic vol] 44.1 fL 35.1-43.9 [facility] Work Phone: Erythrocyte distribution width (RBC) [Ratio] 12.5 % 11.6-14.6 [facility] Work Phone: Immature granulocytes/100 WBC (Bld) 0.300 % 0.0-0.9 [facility] Work Phone: Comment on above: IG% - Immature Granu locytes (promyelocytes, myelocytes and metamyelocytes) > 1% indicates that a LEFT SHIFT is Present. MCH (RBC) [Entitic mass] 31.8 pg 27.0-32.0 [facility] Work Phone: Nucleated RBC/100 WBC (Bld) [Ratio] 0 % 0-5 [facility] Work Phone: MCHC Auto (RBC) [Mass/Vol]on 05-30-2022 MCHC (RBC) [Mass/Vol] 33.3 g/dL 32-36 [facility] Work Phone: No Panel Informationon 05-30 Estimated Creatinine Clearance Calc 83.83 ml/min [facility] Work Phone: Estimated GFR (MDRD) Amer 130 mL/min >60 [facility] Work Phone: Comment on above: GFR Calc Estimated GFR (MDRD) Non-Af Amer 108 mL/min >60 [facility] Work Phone: Comment on above: Non- GFR Calc Platelets bldon 05-30-2022 Platelets (Bld) [#/Vol] 194 10*3/uL 150-450 [facility] Work Phone: Serum or plasma albumin adelita urement (mass/volume)on 05-30-2022 Albumin [Mass/Vol] 3.7 g/dL 3.2-5.0 [facility] Work Phone: Serum or plasma calcium adelita urement (mass/volume)on 05-30-2022 Calcium [Mass/Vol] 9.2 mg/dL 8.5-10.1 [facility] Work Phone: Serum or plasma creatinine m easurement (mass/volume)on 05-30-2022 Creatinine [Mass/Vol] 0.66 mg/dL 0.55-1.02 [facility] Work Phone: Comment on above: The validity of the calculated GFR & GFRAA in patients over 70 years has not been determined. Clinical correlation is essential. Serum or plasma urea nitroge n measurement (mass/volume)on 05-30-2022 Urea nitrogen [Mass/Vol] 10 mg/dL 7-18 [facility] Work Phone: Thin prep Papanicolaou smear with manual screeningon 05-30-2022 Thin prep Papanicolaou smear with manual screening 11 U/L 15-37 [facility] Work Phone: Thin prep Papanicolaou smear with manual screening 2 5-15 [facility] Work Phone: XR Chest PA and Lateralon IMPRESSION: No acute radiographic abnormality. Radio Operator Ground: [facility] Transcribe Date/Time: Jun 13 2021 11:47A Dictated by : SAILAJA MARTINEZ MD This examination was interpreted and the report reviewed and electronically signed by: SAILAJA MARTINEZ MD on Jun 13 2021 11:48AM [facility] DIVISION OF RADIOLOGY * * [...] acute osseous abnormality. DIVISION OF RADIOLOGY Provider, [facility] - 06/13/2021 * * *Final Report* * [...] abnormality. IMPRESSION IMPRESSION: No acute radiographic abnormality. Radio Operator Ground: [place] Transcribe Date/Time: Jun 13 2021 11:47A Dictated by : SAILAJA MARTNIEZ MD This examination was interpreted and the report reviewed and electronically signed by: SAILAJA MARTINEZ MD on Jun 13 2021 11:48AM EST [facility] Radiology Study observation (narrative) [facility] XR Chest PA and LateralOrder ed By: [facility] Provider on 06-13-2021 [facility] XR Knee - left 4 Viewson IMPRESSION: No acute fracture or malalignment. Radio Operator Ground: [facility] Transcribe Date/Time: Dec 15 2020 12:14P Dictated by : MILAGROS WILSON MD This examination was interpreted and the report reviewed and electronically signed by: MILAGROS WILSON MD on Dec 15 2020 12:15PM EST DIVISION OF RADIOLOGY * * *Final [...] surfaces are preserved. DIVISION OF RADIOLOGY Provider, [facility] Nimesh [facility] - 12/15/2020 * * *Final Report* [...] IMPRESSION IMPRESSION: No acute fracture or malalignment. Radio Operator Ground: [facility] Transcribe Date/Time: Dec 15 2020 12:14P Dictated by : MILAGROS WILSON MD This examination was interpreted and the report reviewed and electronically signed by: MILAGROS WILSON MD on Dec 15 2020 12:15PM [facility] Radiology Study observation (narrative) [facility] XR Knee - left 4 ViewsOrdere d By: [facility] Provider on 12-15-2020 [facility] OBSOLETEon 10-16-2018 OBSOLETE Refill (MEPRAD) -------ANNE KUHN ([id number]) 1985 FDate Time Provider [id number]/21/18 HADLEY BOWSER During your visit today, we recorded the following information about you:Hadley Bowser MD 10/16/2018 2:35 PM SignedSee 10/16/2018 [employer] message.Allergies As of Date: 10/16/2018 Noted Allergy [...] instructed twice daily. Disc: Clinical DecisionEncounter Number: [id number] Status:Closed by HADLEY BOWSER MD on 10/16/18 Normal [facility] Culture, urine Bacteria identified Cx Nom (U) Klebsiella pneumoniae sp [facility] Work Phone: Vital Signs Date Time Vital Sign Value Performing Clinician Facility 08-23-2025 13:11-0400 Body height 152.[address] Yassine Link MD Work Phone: [facility] 08-23-2025 13:11-0400 Body mass index (BMI) [Ratio] 25.9 kg/m2 Dr. Yassine Link MD Work Phone: [facility] 08-23-2025 13:11-0400 Body temperature 98.1 [degF] Dr. Yassine Link MD Work Phone: 4(741)147-251412 [address] 08-23-2025 13:11-0400 Body weight 60.[address] Yassine Link MD Work Phone: 0(578)892-223812 [address] 08-23-2025 13:11-0400 Diastolic blood pressure 70 mm[Hg] Dr. Yassine Link MD Work Phone: 5(018)042-172713 [place] [address] 08-23-2025 13:11-0400 Heart rate 80 /min Dr. Yassine Link MD Work Phone: 7(183)[phone] [address] 08-23-2025 13:11-0400 Respiratory rate 12 /min Dr. Yassine Link MD Work Phone: 8(492)140-323813 [place] [address] 08-23-2025 13:11-0400 SaO2% (BldA) [Mass fraction] 97 % Dr. Yassine Link MD Work Phone: [facility] 08-23-2025 13:11-0400 Systolic blood pressure 104 mm[Hg] Dr. Yassine Link MD Work Phone: [facility] 07-28-2025 09:38-0400 Body mass index (BMI) [Ratio] 25.4 kg/m2 German Pires APRN.COUNT TEAM CLERK Work Phone: [facility] 07-28-2025 09:38-0400 Body weight 59 kg German Pires APRN.COUNT TEAM CLERK Work Phone: [facility] 07-28-2025 09:38-0400 Diastolic blood pressure 60 mm[Hg] German Pires DIAMOND FINISHING SUPERVISOR.COUNT TEAM CLERK Work Phone: [facility] 07-28-2025 09:38-0400 Heart rate 82 /min German Pires DIAMOND FINISHING SUPERVISOR.COUNT TEAM CLERK Work Phone: [facility] 07-28-2025 09:38-0400 Respiratory rate 16 /min German Pires DIAMOND FINISHING SUPERVISOR.COUNT TEAM CLERK Work Phone: [facility] 07-28-2025 09:38-0400 Systolic blood pressure 100 mm[Hg] German Pires DIAMOND FINISHING SUPERVISOR.COUNT TEAM CLERK Work Phone: [facility] 04-24-2025 15:34-0400 Body mass index (BMI) [Ratio] 26.74 kg/m2 German Pires DIAMOND FINISHING SUPERVISOR.COUNT TEAM CLERK Work Phone: [facility] 04-24-2025 15:34-0400 Body weight 62.1 kg German Pires DIAMOND FINISHING SUPERVISOR.COUNT TEAM CLERK Work Phone: [facility] 04-24-2025 15:34-0400 Diastolic blood pressure 60 mm[Hg] German Pires DIAMOND FINISHING SUPERVISOR.COUNT TEAM CLERK Work Phone: [facility] 04-24-2025 15:34-0400 Heart rate 71 /min German Pires DIAMOND FINISHING SUPERVISOR.COUNT TEAM CLERK Work Phone: [facility] 04-24-2025 15:34-0400 Respiratory rate 16 /min German Pires DIAMOND FINISHING SUPERVISOR.COUNT TEAM CLERK Work Phone: [facility] 04-24-2025 15:34-0400 Systolic blood pressure 98 mm[Hg] German Pires DIAMOND FINISHING SUPERVISOR.COUNT TEAM CLERK Work Phone: [facility] 03-02-2025 08:12-0400 Body mass index (BMI) [Ratio] 27.56 kg/m2 German Pires DIAMOND FINISHING SUPERVISOR.COUNT TEAM CLERK Work Phone: [facility] 03-02-2025 08:12-0400 Body weight 64 kg German Pires DIAMOND FINISHING SUPERVISOR.COUNT TEAM CLERK Work Phone: [facility] 03-02-2025 08:12-0400 Diastolic blood pressure 69 mm[Hg] German Pires DIAMOND FINISHING SUPERVISOR.COUNT TEAM CLERK Work Phone: [facility] 03-02-2025 08:12-0400 Heart rate 74 /min German Pires DIAMOND FINISHING SUPERVISOR.COUNT TEAM CLERK Work Phone: [facility] 03-02-2025 08:12-0400 Respiratory rate 20 /min German Pires DIAMOND FINISHING SUPERVISOR.COUNT TEAM CLERK Work Phone: [facility] 03-02-2025 08:12-0400 SaO2% (BldA) [Mass fraction] 99 % German Pires DIAMOND FINISHING SUPERVISOR.COUNT TEAM CLERK Work Phone: [facility] 03-02-2025 08:12-0400 Systolic blood pressure 108 mm[Hg] German Pires DIAMOND FINISHING SUPERVISOR.COUNT TEAM CLERK Work Phone: [facility] 02-23-2025 09:43-0400 Body mass index (BMI) [Ratio] 27.99 kg/m2 German Pires DIAMOND FINISHING SUPERVISOR.COUNT TEAM CLERK Work Phone: [facility] 02-23-2025 09:43-0400 Body weight 65 kg German Pires DIAMOND FINISHING SUPERVISOR.COUNT TEAM CLERK Work Phone: [facility] 02-23-2025 09:43-0400 Diastolic blood pressure 65 mm[Hg] German Pires DIAMOND FINISHING SUPERVISOR.COUNT TEAM CLERK Work Phone: [facility] 02-23-2025 09:43-0400 Heart rate 80 /min German Pires DIAMOND FINISHING SUPERVISOR.COUNT TEAM CLERK Work Phone: [facility] 02-23-2025 09:43-0400 Respiratory rate 16 /min German Pires DIAMOND FINISHING SUPERVISOR.COUNT TEAM CLERK Work Phone: [facility] 02-23-2025 09:43-0400 SaO2% (BldA) [Mass fraction] 99 % German Pires DIAMOND FINISHING SUPERVISOR.COUNT TEAM CLERK Work Phone: [facility] 02-23-2025 09:43-0400 Systolic blood pressure 98 mm[Hg] German Pires DIAMOND FINISHING SUPERVISOR.COUNT TEAM CLERK Work Phone: [facility] 02-16-2025 07:02-0400 Body mass index (BMI) [Ratio] 27.13 kg/m2 German Pires DIAMOND FINISHING SUPERVISOR.COUNT TEAM CLERK Work Phone: [facility] 02-16-2025 07:02-0400 Body temperature 99.9 [degF] German Pires DIAMOND FINISHING SUPERVISOR.COUNT TEAM CLERK Work Phone: [facility] 02-16-2025 07:02-0400 Body weight 63 kg German Pires DIAMOND FINISHING SUPERVISOR.COUNT TEAM CLERK Work Phone: [facility] 02-16-2025 07:02-0400 Diastolic blood pressure 61 mm[Hg] German Pires DIAMOND FINISHING SUPERVISOR.COUNT TEAM CLERK Work Phone: [facility] 02-16-2025 07:02-0400 Heart rate 98 /min German Pires DIAMOND FINISHING SUPERVISOR.COUNT TEAM CLERK Work Phone: [facility] 02-16-2025 07:02-0400 Respiratory rate 16 /min German Pires DIAMOND FINISHING SUPERVISOR.COUNT TEAM CLERK Work Phone: [facility] 02-16-2025 07:02-0400 SaO2% (BldA) [Mass fraction] 95 % German Pires DIAMOND FINISHING SUPERVISOR.COUNT TEAM CLERK Work Phone: [facility] 02-16-2025 07:02-0400 Systolic blood pressure 99 mm[Hg] German Pires DIAMOND FINISHING SUPERVISOR.COUNT TEAM CLERK Work Phone: [facility] 02-13-2025 18:41-0400 Body temperature 99 [degF] Dr. Yassine Link MD Work Phone: [facility] 02-13-2025 18:41-0400 Diastolic blood pressure 59 mm[Hg] Dr. Yassine Link MD Work Phone: [facility] 02-13-2025 18:41-0400 Heart rate 105 /min Dr. Yassine Link MD Work Phone: [facility] 02-13-2025 18:41-0400 Respiratory rate 20 /min Dr. Yassine Link MD Work Phone: [facility] 02-13-2025 18:41-0400 SaO2% (BldA) [Mass fraction] 99 % Dr. Yassine Link MD Work Phone: [facility] 02-13-2025 18:41-0400 Systolic blood pressure 92 mm[Hg] Dr. Yassine Link MD Work Phone: [facility] 02-13-2025 14:45-0400 Body height 152.[address] Yassine Link MD Work Phone: [facility] 02-13-2025 14:45-0400 Body mass index (BMI) [Ratio] 27.3 kg/m2 Dr. Yassine Link MD Work Phone: [facility] 02-13-2025 14:45-0400 Body weight 63.[address] Yassine Link MD Work Phone: [facility] 02-13-2025 14:08-0400 Body height 152.4 cm Yassine Link MD Work Phone: [facility] 02-13-2025 14:08-0400 Body mass index (BMI) [Ratio] 27.34 kg/m2 Yassine Link MD Work Phone: [facility] 02-13-2025 14:08-0400 Body temperature 99 [degF] Yassine Link MD Work Phone: [facility] 02-13-2025 14:08-0400 Body weight 63.5 kg Yassine Link MD Work Phone: [facility] 02-13-2025 14:08-0400 Diastolic blood pressure 44 mm[Hg] Yassine Link MD Work Phone: [facility] 02-13-2025 14:08-0400 Heart rate 103 /min Yassine Link MD Work Phone: [facility] 02-13-2025 14:08-0400 SaO2% (BldA) [Mass fraction] 99 % Yassine Link MD Work Phone: [facility] 02-13-2025 14:08-0400 Systolic blood pressure 80 mm[Hg] Yassine Link MD Work Phone: [facility] 01-27-2025 10:40-0500 Body mass index (BMI) [Ratio] 28.16 kg/m2 Mayda Madrigal MD Work Phone: [facility] 01-27-2025 10:40-0500 Body weight 65.41 kg Mayda Madrigal MD Work Phone: [facility] 01-27-2025 10:40-0500 Diastolic blood pressure 70 mm[Hg] Mayda Madrigal MD Work Phone: [facility] 01-27-2025 10:40-0500 Heart rate 79 /min Mayda Madrigal MD Work Phone: [facility] 01-27-2025 10:40-0500 SaO2% (BldA) [Mass fraction] 99 % Mayda Madrigal MD Work Phone: [facility] 01-27-2025 10:40-0500 Systolic blood pressure 112 mm[Hg] Mayda Madrigal MD Work Phone: [facility] 01-26-2025 19:23-0500 Body mass index (BMI) [Ratio] 28.76 kg/m2 Yassien Link MD Work Phone: [facility] 01-26-2025 19:23-0500 Body temperature 98.91 [degF] Yassine Link MD Work Phone: [facility] 01-26-2025 19:23-0500 Body weight 66.8 kg Yassine Link MD Work Phone: [facility] 01-26-2025 19:23-0500 Diastolic blood pressure 64 mm[Hg] Yassine Link MD Work Phone: [facility] 01-26-2025 19:23-0500 Heart rate 88 /min Yassine Link MD Work Phone: [facility] 01-26-2025 19:23-0500 Respiratory rate 20 /min Yassine Link MD Work Phone: [facility] 01-26-2025 19:23-0500 Systolic blood pressure 110 mm[Hg] Yassine Link MD Work Phone: [facility] 01-20-2025 13:56-0500 Body height 152.4 cm Mayda Madrigal MD Work Phone: [facility] 01-20-2025 13:56-0500 Body mass index (BMI) [Ratio] 28.71 kg/m2 Mayda Madrigal MD Work Phone: [facility] 01-20-2025 13:56-0500 Body weight 66.68 kg Mayda Madrigal MD Work Phone: [facility] 01-20-2025 13:56-0500 Diastolic blood pressure 76 mm[Hg] Mayda Madrigal MD Work Phone: [facility] 01-20-2025 13:56-0500 Heart rate 60 /min Mayda Madrigal MD Work Phone: [facility] 01-20-2025 13:56-0500 SaO2% (BldA) [Mass fraction] 100 % Mayda Madrigal MD Work Phone: [facility] 01-20-2025 13:56-0500 Systolic blood pressure 106 mm[Hg] Mayda Madrigal MD Work Phone: [facility] 01-15-2025 18:17-0500 Blood Pressure Location ULISES HERRERA DO [facility] 01-15-2025 18:17-0500 Blood Pressure Method ULISES Juarez [facility] 01-15-2025 18:17-0500 Diastolic Blood Pressure Non-Invasive 62 mm[Hg] ULISES HERRERA DO [facility] 01-15-2025 18:17-0500 Heart rate 72 /min ULISES FROMMELT DO [facility] 01-15-2025 18:17-0500 Respiratory rate 18 /min ULISES FROMMELT DO [facility] 01-15-2025 18:17-0500 Systolic Blood Pressure Non-Invasive 104 mm[Hg] ULISES FROMMELT DO [facility] 01-15-2025 15:15-0500 Blood Pressure Location ULISES FROMMELT DO [facility] 01-15-2025 15:15-0500 Blood Pressure Method ULISES ALMONTET D O [facility] 01-15-2025 15:15-0500 Body temperature 98.6 [degF] ULISES LAYTONMELT DO [facility] 01-15-2025 15:15-0500 Diastolic Blood Pressure Non-Invasive 66 mm[Hg] ULISES LAYTONMELT DO [facility] 01-15-2025 15:15-0500 Heart rate 88 /min ULISES LAYTONMELT DO [facility] 01-15-2025 15:15-0500 Respiratory rate 18 /min ULISES LAYTONMELT DO [facility] 01-15-2025 15:15-0500 Systolic Blood Pressure Non-Invasive 100 mm[Hg] ULISES LAYTONMELT DO [facility] 01-15-2025 13:19-0500 Body height 151.[address] Yassine Link MD Work Phone: [facility] 01-15-2025 13:19-0500 Body mass index (BMI) [Ratio] 28.6 kg/m2 Dr. Yassine Link MD Work Phone: [facility] 01-15-2025 13:19-0500 Body temperature 98 [degF] Dr. Yassine Link MD Work Phone: [facility] 01-15-2025 13:19-0500 Body weight 66.[address] Yassine Link MD Work Phone: [facility] 01-15-2025 13:19-0500 Diastolic blood pressure 64 mm[Hg] Dr. Yassine Link MD Work Phone: [facility] 01-15-2025 13:19-0500 Heart rate 91 /min Dr. Yassine Link MD Work Phone: [facility] 01-15-2025 13:19-0500 Respiratory rate 16 /min Dr. Yassine Link MD Work Phone: [facility] 01-15-2025 13:19-0500 SaO2% (BldA) [Mass fraction] 99 % Dr. Yassine Link MD Work Phone: [facility] 01-15-2025 13:19-0500 Systolic blood pressure 104 mm[Hg] Dr. Yassine Link MD Work Phone: [facility] 01-08-2025 11:03-0500 Body height 152.4 cm Mallory Avinash DIAMOND FINISHING SUPERVISOR.RACING CAR DRIVER Work Phone: [facility] 01-08-2025 11:03-0500 Body mass index (BMI) [Ratio] 28.71 kg/m2 Mallory Avinash DIAMOND FINISHING SUPERVISOR.RACING CAR DRIVER Work Phone: [facility] 01-08-2025 11:03-0500 Body temperature 97.3 [degF] Mallory Avinash DIAMOND FINISHING SUPERVISOR.RACING CAR DRIVER Work Phone: [facility] 01-08-2025 11:03-0500 Body weight 66.68 kg Mallroy Avinash DIAMOND FINISHING SUPERVISOR.RACING CAR DRIVER Work Phone: [facility] 01-08-2025 11:03-0500 Diastolic blood pressure 62 mm[Hg] Mallory Avinash DIAMOND FINISHING SUPERVISOR.RACING CAR DRIVER Work Phone: [facility] 01-08-2025 11:03-0500 Heart rate 90 /min Mallory Avinash DIAMOND FINISHING SUPERVISOR.RACING CAR DRIVER Work Phone: [facility] 01-08-2025 11:03-0500 Respiratory rate 14 /min Mallory Avinash DIAMOND FINISHING SUPERVISOR.RACING CAR DRIVER Work Phone: [facility] 01-08-2025 11:03-0500 SaO2% (BldA) [Mass fraction] 98 % Mallory Avinash DIAMOND FINISHING SUPERVISOR.RACING CAR DRIVER Work Phone: [facility] 01-08-2025 11:03-0500 Systolic blood pressure 102 mm[Hg] Mallory Avinash DIAMOND FINISHING SUPERVISOR.RACING CAR DRIVER Work Phone: [facility] 12-23-2024 08:44-0500 Body mass index (BMI) [Ratio] 27.99 kg/m2 German Pires DIAMOND FINISHING SUPERVISOR.COUNT TEAM CLERK Work Phone: [facility] 12-23-2024 08:44-0500 Body weight 65 kg German Pires DIAMOND FINISHING SUPERVISOR.COUNT TEAM CLERK Work Phone: [facility] 12-23-2024 08:44-0500 Diastolic blood pressure 59 mm[Hg] German Pires DIAMOND FINISHING SUPERVISOR.COUNT TEAM CLERK Work Phone: [facility] 12-23-2024 08:44-0500 Heart rate 80 /min German Pires DIAMOND FINISHING SUPERVISOR.COUNT TEAM CLERK Work Phone: [facility] 12-23-2024 08:44-0500 Respiratory rate 16 /min German Pires DIAMOND FINISHING SUPERVISOR.COUNT TEAM CLERK Work Phone: [facility] 12-23-2024 08:44-0500 Systolic blood pressure 92 mm[Hg] German Pires DIAMOND FINISHING SUPERVISOR.COUNT TEAM CLERK Work Phone: [facility] 10-20-2024 19:49-0500 Body mass index (BMI) [Ratio] 29.32 kg/m2 Yassine Link MD Work Phone: [facility] 10-20-2024 19:49-0500 Body temperature 97.59 [degF] Yassine Link MD Work Phone: [facility] 10-20-2024 19:49-0500 Body weight 68.1 kg Yassine Link MD Work Phone: [facility] 10-20-2024 19:49-0500 Diastolic blood pressure 70 mm[Hg] Yassine Link MD Work Phone: [facility] 10-20-2024 19:49-0500 Heart rate 68 /min Yassine Link MD Work Phone: [facility] 10-20-2024 19:49-0500 Respiratory rate 18 /min Yassine Link MD Work Phone: [facility] 10-20-2024 19:49-0500 Systolic blood pressure 112 mm[Hg] Yassine Link MD Work Phone: [facility] 06-09-2024 11:17-0400 Body mass index (BMI) [Ratio] 31.42 kg/m2 German Pires DIAMOND FINISHING SUPERVISOR.COUNT TEAM CLERK Work Phone: [facility] 06-09-2024 11:17-0400 Body weight 72.98 kg German Pires DIAMOND FINISHING SUPERVISOR.COUNT TEAM CLERK Work Phone: [facility] 06-09-2024 11:17-0400 Diastolic blood pressure 70 mm[Hg] German Pires DIAMOND FINISHING SUPERVISOR.COUNT TEAM CLERK Work Phone: [facility] 06-09-2024 11:17-0400 Heart rate 76 /min German Pires DIAMOND FINISHING SUPERVISOR.COUNT TEAM CLERK Work Phone: [facility] 06-09-2024 11:17-0400 SaO2% (BldA) [Mass fraction] 99 % Germanjean carlos Pires DIAMOND FINISHING SUPERVISOR.COUNT TEAM CLERK Work Phone: [facility] 06-09-2024 11:17-0400 Systolic blood pressure 108 mm[Hg] German Pires DIAMOND FINISHING SUPERVISOR.COUNT TEAM CLERK Work Phone: [facility] 04-24-2024 15:07-0400 Body mass index (BMI) [Ratio] 32.11 kg/m2 Yassine Link MD Work Phone: [facility] 04-24-2024 15:07-0400 Body weight 74.57 kg Yassine Link MD Work Phone: [facility] 04-24-2024 15:07-0400 Diastolic blood pressure 84 mm[Hg] Yassine Link MD Work Phone: [facility] 04-24-2024 15:07-0400 Heart rate 72 /min Yassine Link MD Work Phone: [facility] 04-24-2024 15:07-0400 SaO2% (BldA) [Mass fraction] 99 % Yassine Link MD Work Phone: [facility] 04-24-2024 15:07-0400 Systolic blood pressure 110 mm[Hg] Yassine Link MD Work Phone: [facility] 03-13-2024 15:03-0400 Body temperature 97.9 [degF] Gertrude Henry MD Work Phone: [facility] 03-13-2024 15:03-0400 Diastolic blood pressure 84 mm[Hg] Gertrude Henry MD Work Phone: [facility] 03-13-2024 15:03-0400 Heart rate 91 /min Gertrude Henry MD Work Phone: [facility] 03-13-2024 15:03-0400 SaO2% (BldA) [Mass fraction] 98 % Gertrude Henry MD Work Phone: [facility] 03-13-2024 15:03-0400 Systolic blood pressure 116 mm[Hg] Gertrude Henry MD Work Phone: [facility] 03-02-2024 08:11-0400 Body height 152.4 cm [facility] 03-02-2024 08:11-0400 Body mass index (BMI) [Ratio] 32.7 kg/m2 [facility] 03-02-2024 08:11-0400 Body temperature 97 [degF] [facility] 03-02-2024 08:11-0400 Body weight 76 kg [facility] 03-02-2024 08:11-0400 Diastolic blood pressure 77 mm[Hg] [facility] 03-02-2024 08:11-0400 Heart rate 78 /min [facility] 03-02-2024 08:11-0400 Respiratory rate 14 /min [facility] 03-02-2024 08:11-0400 SaO2% (BldA) [Mass fraction] 100 % [facility] 03-02-2024 08:11-0400 Systolic blood pressure 115 mm[Hg] [facility] 02-25-2024 10:39-0400 Body weight 76.2 kg German Pires DIAMOND FINISHING SUPERVISOR.COUNT TEAM CLERK Work Phone: [facility] 02-25-2024 10:39-0400 Diastolic blood pressure 75 mm[Hg] German Pires DIAMOND FINISHING SUPERVISOR.COUNT TEAM CLERK Work Phone: [facility] 02-25-2024 10:39-0400 Heart rate 70 /min German Pires DIAMOND FINISHING SUPERVISOR.COUNT TEAM CLERK Work Phone: [facility] 02-25-2024 10:39-0400 Respiratory rate 16 /min German Pires DIAMOND FINISHING SUPERVISOR.COUNT TEAM CLERK Work Phone: [facility] 02-25-2024 10:39-0400 Systolic blood pressure 111 mm[Hg] German Pires DIAMOND FINISHING SUPERVISOR.COUNT TEAM CLERK Work Phone: [facility] 02-11-2024 15:08-0400 Body temperature 97.4 [degF] [facility] 02-11-2024 15:08-0400 Diastolic blood pressure 76 mm[Hg] [facility] 02-11-2024 15:08-0400 Heart rate 85 /min [facility] 02-11-2024 15:08-0400 Respiratory rate 16 /min [facility] 02-11-2024 15:08-0400 SaO2% (BldA) [Mass fraction] 99 % [facility] 02-11-2024 15:08-0400 Systolic blood pressure 120 mm[Hg] [facility] 02-11-2024 13:38-0400 Body height 152.4 cm [facility] 02-11-2024 13:38-0400 Body mass index (BMI) [Ratio] 32.4 kg/m2 [facility] 02-11-2024 13:38-0400 Body weight 75.29 kg [facility] 01-17-2024 17:33-0500 Body temperature 97.8 [degF] [facility] 01-17-2024 17:33-0500 Diastolic blood pressure 73 mm[Hg] [facility] 01-17-2024 17:33-0500 Heart rate 84 /min [facility] 01-17-2024 17:33-0500 Respiratory rate 16 /min [facility] 01-17-2024 17:33-0500 SaO2% (BldA) [Mass fraction] 100 % [facility] 01-17-2024 17:33-0500 Systolic blood pressure 116 mm[Hg] [facility] 01-17-2024 16:18-0500 Body height 152.4 cm [facility] 01-17-2024 16:18-0500 Body mass index (BMI) [Ratio] 31.5 kg/m2 [facility] 01-17-2024 16:18-0500 Body weight 73.25 kg [facility] 01-10-2024 13:02-0500 Body weight 71.22 kg German Pires DIAMOND FINISHING SUPERVISOR.COUNT TEAM CLERK Work Phone: [facility] 01-10-2024 13:02-0500 Diastolic blood pressure 82 mm[Hg] German Pires DIAMOND FINISHING SUPERVISOR.COUNT TEAM CLERK Work Phone: [facility] 01-10-2024 13:02-0500 Heart rate 90 /min German Pires DIAMOND FINISHING SUPERVISOR.COUNT TEAM CLERK Work Phone: [facility] [facility] 01-10-2024 13:02-0500 Respiratory rate 16 /min German Pires DIAMOND FINISHING SUPERVISOR.COUNT TEAM CLERK Work Phone: [facility] 01-10-2024 13:02-0500 SaO2% (BldA) [Mass fraction] 100 % German Pires [employer]AMOND FINISHING SUPERVISOR.COUNT TEAM CLERK Work Phone: [facility] 01-10-2024 13:02-0500 Systolic blood pressure 116 mm[Hg] German Pires APRNBenitaSHANNEN Work Phone: [facility] 01-07-2024 09:16-0500 Body temperature 97.39 [degF] Gertrude Henry MD Work Phone: [facility] 01-05-2024 09:57-0500 Body height 152.4 cm [facility] 01-05-2024 09:57-0500 Body mass index (BMI) [Ratio] 32.3 kg/m2 [facility] 01-05-2024 09:57-0500 Body temperature 97.5 [degF] [facility] 01-05-2024 09:57-0500 Body weight 75.16 kg [facility] 01-05-2024 09:57-0500 Diastolic blood pressure 70 mm[Hg] [facility] 01-05-2024 09:57-0500 Heart rate 91 /min [facility] 01-05-2024 09:57-0500 Respiratory rate 16 /min [facility] 01-05-2024 09:57-0500 SaO2% (BldA) [Mass fraction] 99 % [facility] 01-05-2024 09:57-0500 Systolic blood pressure 110 mm[Hg] [facility] 01-02-2024 18:15-0500 Diastolic blood pressure 78 mm[Hg] JOLANTA URBAN DO [facility] 01-02-2024 18:15-0500 Systolic blood pressure 136 mm[Hg] JOLANTA URBAN DO [facility] 01-02-2024 17:41-0500 Blood Pressure Cuff Size JOLANTA URBAN DO [facility] 01-02-2024 17:41-0500 Blood Pressure Location JOLANTA URBAN DO [facility] 01-02-2024 17:41-0500 Blood Pressure Method JOLANTA URBAN DO [facility] 01-02-2024 17:41-0500 Body height 152.4 cm JOLANTA URBAN DO [facility] 01-02-2024 17:41-0500 Body temperature 97.16 [degF] JOLANTA URBAN DO [facility] 01-02-2024 17:41-0500 Body weight 73.5 kg JOLANTA URBAN DO [facility] 01-02-2024 17:41-0500 Diastolic Blood Pressure Non-Invasive 93 mm[Hg] JOLANTA URBAN DO [facility] 01-02-2024 17:41-0500 Heart rate 71 /min JOLANTA URBAN DO [facility] 01-02-2024 17:41-0500 Reason For Taking VItal Signs JOLANTA URBAN DO [facility] 01-02-2024 17:41-0500 Respiratory rate 18 /min JOLANTA URBAN DO [facility] 01-02-2024 17:41-0500 Systolic Blood Pressure Non-Invasive 143 mm[Hg] JOLANTA URBAN DO [facility] 12-25-2023 11:17-0500 Body height 152.4 cm Gertrude Henry MD Work Phone: [facility] 12-25-2023 11:17-0500 Body temperature 97.81 [degF] Gertrude Henry MD Work Phone: [facility] [...] Gertrude Henry MD Work Phone: [facility] 12-23-2023 15:59-0500 Body temperature 98.1 [degF] [facility] 12-23-2023 15:59-0500 Diastolic blood pressure 91 mm[Hg] [facility] 12-23-2023 15:59-0500 Heart rate 84 /min [facility] 12-23-2023 15:59-0500 Respiratory rate 18 /min [facility] 12-23-2023 15:59-0500 SaO2% (BldA) [Mass fraction] 100 % [facility] 12-23-2023 15:59-0500 Systolic blood pressure 112 mm[Hg] [facility] 12-23-2023 15:11-0500 Body height 152.4 cm [facility] 12-23-2023 15:11-0500 Body mass index (BMI) [Ratio] 32.3 kg/m2 [facility] 12-23-2023 15:11-0500 Body weight 75.02 kg [facility] 12-22-2023 14:08-0500 Diastolic blood pressure 68 mm[Hg] [facility] 12-22-2023 14:08-0500 Heart rate 82 /min [facility] 12-22-2023 14:08-0500 SaO2% (BldA) [Mass fraction] 98 % [facility] 12-22-2023 14:08-0500 Systolic blood pressure 105 mm[Hg] [facility] 12-22-2023 10:56-0500 Body height 152.4 cm [facility] 12-22-2023 10:56-0500 Body mass index (BMI) [Ratio] 31.8 kg/m2 [facility] 12-22-2023 10:56-0500 Body temperature 96.8 [degF] [facility] 12-22-2023 10:56-0500 Body weight 74.07 kg [facility] 12-22-2023 10:56-0500 Respiratory rate 16 /min [facility] 12-08-2023 13:51-0500 Body height 152.4 cm [facility] 12-08-2023 13:51-0500 Body mass index (BMI) [Ratio] 31.8 kg/m2 [facility] 12-08-2023 13:51-0500 Body temperature 96.4 [degF] [facility] 12-08-2023 13:51-0500 Body weight 73.93 kg [facility] 12-08-2023 13:51-0500 Diastolic blood pressure 80 mm[Hg] [facility] 12-08-2023 13:51-0500 Heart rate 83 /min [facility] 12-08-2023 13:51-0500 Respiratory rate 18 /min [facility] 12-08-2023 13:51-0500 SaO2% (BldA) [Mass fraction] 100 % [facility] 12-08-2023 13:51-0500 Systolic blood pressure 123 mm[Hg] [facility] 11-25-2023 04:54-0500 Body height 152.4 cm [facility] 11-25-2023 04:54-0500 Body mass index (BMI) [Ratio] 31.4 kg/m2 [facility] 11-25-2023 04:54-0500 Body temperature 97.9 [degF] [facility] 11-25-2023 04:54-0500 Body weight 73.02 kg [facility] 11-25-2023 04:54-0500 Diastolic blood pressure 59 mm[Hg] [facility] 11-25-2023 04:54-0500 Heart rate 72 /min [facility] 11-25-2023 04:54-0500 Respiratory rate 16 /min [facility] 11-25-2023 04:54-0500 SaO2% (BldA) [Mass fraction] 99 % [facility] 11-25-2023 04:54-0500 Systolic blood pressure 105 mm[Hg] [facility] 11-21-2023 15:46-0500 Body height 152.4 cm MAYI REAVES MD [facility] 11-21-2023 15:46-0500 Body temperature 98.24 [degF] MAYI REAVES MD [facility] 11-21-2023 15:46-0500 Body weight 72.7 kg MAYI REAVES MD [facility] 11-21-2023 15:46-0500 Diastolic Blood Pressure Non-Invasive 73 mm[Hg] MAYI REAVES MD [facility] 11-21-2023 15:46-0500 Heart rate 86 /min MAYI REAVES MD [facility] 11-21-2023 15:46-0500 Respiratory rate 18 /min MAYI REAVES MD [facility] 11-21-2023 15:46-0500 Systolic Blood Pressure Non-Invasive 119 mm[Hg] MAYI REAVES MD [facility] 11-19-2023 14:37-0500 Diastolic blood pressure 65 mm[Hg] [facility] 11-19-2023 14:37-0500 Heart rate 92 /min [facility] 11-19-2023 14:37-0500 Respiratory rate 16 /min [facility] 11-19-2023 14:37-0500 SaO2% (BldA) [Mass fraction] 98 % [facility] 11-19-2023 14:37-0500 Systolic blood pressure 107 mm[Hg] [facility] 11-19-2023 13:55-0500 Inhaled oxygen flow rate 2 L/min [facility] 11-19-2023 13:45-0500 Body temperature 98.2 [degF] [facility] 11-19-2023 12:46-0500 Body height 152.4 cm [facility] 11-19-2023 12:46-0500 Body mass index (BMI) [Ratio] 33.5 kg/m2 [facility] 11-19-2023 12:46-0500 Body weight 77.83 kg [facility] 11-11-2023 13:36-0500 Respiratory rate 14 /min [facility] 11-11-2023 12:35-0500 Body temperature 97.9 [degF] [facility] 11-11-2023 12:35-0500 Diastolic blood pressure 72 mm[Hg] [facility] 11-11-2023 12:35-0500 Heart rate 55 /min [facility] 11-11-2023 12:35-0500 SaO2% (BldA) [Mass fraction] 94 % [facility] 11-11-2023 12:35-0500 Systolic blood pressure 132 mm[Hg] [facility] 11-11-2023 08:20-0500 Body mass index (BMI) [Ratio] 34.1 kg/m2 [facility] 11-11-2023 08:20-0500 Body weight 79.19 kg [facility] 11-11-2023 08:13-0500 Body height 152.4 cm [facility] 09-21-2023 07:14-0400 Body height 152.4 cm [facility] 09-21-2023 07:14-0400 Body mass index (BMI) [Ratio] 32.2 kg/m2 [facility] 09-21-2023 07:14-0400 Body temperature 97.6 [degF] [facility] 09-21-2023 07:14-0400 Body weight 74.84 kg [facility] 09-21-2023 07:14-0400 Diastolic blood pressure 76 mm[Hg] [facility] 09-21-2023 07:14-0400 Heart rate 76 /min [facility] 09-21-2023 07:14-0400 Respiratory rate 14 /min [facility] 09-21-2023 07:14-0400 SaO2% (BldA) [Mass fraction] 98 % [facility] 09-21-2023 07:14-0400 Systolic blood pressure 134 mm[Hg] [facility] 06-30-2023 08:04-0400 Body height 152.4 cm [facility] 06-30-2023 08:04-0400 Body mass index (BMI) [Ratio] 32.5 kg/m2 [facility] 06-30-2023 08:04-0400 Body temperature 96.8 [degF] [facility] 06-30-2023 08:04-0400 Body weight 75.65 kg [facility] 06-30-2023 08:04-0400 Diastolic blood pressure 77 mm[Hg] [facility] 06-30-2023 08:04-0400 Heart rate 77 /min [facility] 06-30-2023 08:04-0400 Respiratory rate 16 /min [facility] 06-30-2023 08:04-0400 SaO2% (BldA) [Mass fraction] 100 % [facility] 06-30-2023 08:04-0400 Systolic blood pressure 122 mm[Hg] [facility] 05-28-2023 19:18-0400 Body weight 75.75 kg Yassine [...] Yassine Link MD Work Phone: [facility] 05-27-2023 13:40-0400 Diastolic blood pressure 74 mm[Hg] [facility] 05-27-2023 13:40-0400 Heart rate 62 /min [facility] 05-27-2023 13:40-0400 Respiratory rate 15 /min [facility] 05-27-2023 13:40-0400 SaO2% (BldA) [Mass fraction] 98 % [facility] 05-27-2023 13:40-0400 Systolic blood pressure 125 mm[Hg] [facility] 05-27-2023 09:49-0400 Body height 152.4 cm [facility] 05-27-2023 09:49-0400 Body mass index (BMI) [Ratio] 32.8 kg/m2 [facility] 05-27-2023 09:49-0400 Body temperature 99 [degF] [facility] 05-27-2023 09:49-0400 Body weight 76.2 kg [facility] 04-25-2023 13:42-0400 Body height 152.4 cm [facility] 04-25-2023 13:42-0400 Body mass index (BMI) [Ratio] 32.5 kg/m2 [facility] 04-25-2023 13:42-0400 Body temperature 98 [degF] [facility] 04-25-2023 13:42-0400 Body weight 75.55 kg [facility] 04-25-2023 13:42-0400 Diastolic blood pressure 98 mm[Hg] [facility] 04-25-2023 13:42-0400 Heart rate 86 /min [facility] 04-25-2023 13:42-0400 Respiratory rate 16 /min [facility] 04-25-2023 13:42-0400 SaO2% (BldA) [Mass fraction] 100 % [facility] 04-25-2023 13:42-0400 Systolic blood pressure 129 mm[Hg] [facility] 04-11-2023 13:03-0400 Body mass index (BMI) [Ratio] 33.5 kg/m2 [facility] 04-11-2023 13:03-0400 Body temperature 97.8 [degF] [facility] 04-11-2023 13:03-0400 Body weight 78.01 kg [facility] 04-11-2023 13:03-0400 Diastolic blood pressure 85 mm[Hg] [facility] 04-11-2023 13:03-0400 Heart rate 77 /min [facility] 04-11-2023 13:03-0400 Respiratory rate 16 /min [facility] 04-11-2023 13:03-0400 SaO2% (BldA) [Mass fraction] 100 % [facility] 04-11-2023 13:03-0400 Systolic blood pressure 136 mm[Hg] [facility] 03-12-2023 16:48-0400 Heart rate 60 /min Dr. Yassine Link Work Phone: 8(654)182-044473 [place] [address] 03-12-2023 16:48-0400 SaO2% (BldA) [Mass fraction] 100 % Dr. Yassine Link Work Phone: 4(510)515-453313 [place] [address] 03-12-2023 16:11-0400 Body height 152.[address] Yassine Link Work Phone: [facility] 03-12-2023 16:11-0400 Body mass index (BMI) [Ratio] 34.3 kg/m2 Dr. Yassine Link Work Phone: [facility] 03-12-2023 16:11-0400 Body temperature 98.2 [degF] Dr. Yassine Link Work Phone: [facility] 03-12-2023 16:11-0400 Body weight 79.[address] Yassine Link Work Phone: [facility] 03-12-2023 16:11-0400 Diastolic blood pressure 79 mm[Hg] Dr. Yassine Link Work Phone: [facility] 03-12-2023 16:11-0400 Respiratory rate 16 /min Dr. Yassine Link Work Phone: [facility] 03-12-2023 16:11-0400 Systolic blood pressure 125 mm[Hg] Dr. Yassine Link Work Phone: 9(040)458-807973 [place] [address] 02-24-2023 13:57-0400 Diastolic blood pressure 88 mm[Hg] Dr. Yassine Link Work Phone: 8(740)649-171373 [place] [address] 02-24-2023 13:57-0400 Heart rate 74 /min Dr. Yassine Link Work Phone: 0(646)765-573173 [place] [address] 02-24-2023 13:57-0400 Respiratory rate 15 /min Dr. Yassine Link Work Phone: 4(410)171-106273 [place] [address] 02-24-2023 13:57-0400 SaO2% (BldA) [Mass fraction] 98 % Dr. Yassine Link Work Phone: 8(476)140-363373 [place] [address] 02-24-2023 13:57-0400 Systolic blood pressure 129 mm[Hg] Dr. Yassine Link Work Phone: 2(337)093-654773 [place] [address] 02-24-2023 13:09-0400 Body height 152.[address] Yassine Link Work Phone: 4(314)346-525873 [place] [address] 02-24-2023 13:09-0400 Body mass index (BMI) [Ratio] 34.2 kg/m2 Dr. Yassine iLnk Work Phone: 4(256)165-855573 [place] [address] 02-24-2023 13:09-0400 Body temperature 97.4 [degF] Dr. Yassine Link Work Phone: 1(454)879-926373 [place] [address] 02-24-2023 13:09-0400 Body weight 79.[address] Yassine Link Work Phone: 2(978)681-537873 [place] [address] 12-30-2022 14:52-0500 Body height 152.[address] Yassine Link Work Phone: 0(491)179-864473 [place] [address] 12-30-2022 14:52-0500 Body mass index (BMI) [Ratio] 33.4 kg/m2 Dr. Yassine Link Work Phone: 0(970)699-747473 [place] [address] 12-30-2022 14:52-0500 Body temperature 97 [degF] Dr. Yassine Link Work Phone: [facility] 12-30-2022 14:52-0500 Body weight 77.[address] Yassine Link Work Phone: [facility] 12-30-2022 14:52-0500 Diastolic blood pressure 70 mm[Hg] Dr. Yassine Link Work Phone: [facility] 12-30-2022 14:52-0500 Heart rate 83 /min Dr. Yassine Link Work Phone: [facility] 12-30-2022 14:52-0500 Respiratory rate 14 /min Dr. Yassine Link Work Phone: [facility] 12-30-2022 14:52-0500 SaO2% (BldA) [Mass fraction] 100 % Dr. Yassine Link Work Phone: [facility] 12-30-2022 14:52-0500 Systolic blood pressure 120 mm[Hg] Dr. Yassine Link Work Phone: [facility] 12-28-2022 11:41-0500 Body temperature 97.3 [degF] Yassine [...] Link MD Work Phone: [facility] 12-01-2022 10:27-0500 Diastolic blood pressure 67 mm[Hg] Dr. Yassine Link Work Phone: [facility] 12-01-2022 10:27-0500 Heart rate 71 /min Dr. Yassine Link Work Phone: [facility] 12-01-2022 10:27-0500 Respiratory rate 15 /min Dr. Yassine Link Work Phone: [facility] 12-01-2022 10:27-0500 SaO2% (BldA) [Mass fraction] 98 % Dr. Yassine Link Work Phone: [facility] 12-01-2022 10:27-0500 Systolic blood pressure 108 mm[Hg] Dr. Yassine Link Work Phone: [facility] 12-01-2022 09:53-0500 Body height 152.[address] Yassine Link Work Phone: [facility] Work Phone: 12-01-2022 09:53-0500 Body mass index (BMI) [Ratio] 33.4 kg/m2 Dr. Yassine Link Work Phone: [facility] 12-01-2022 09:53-0500 Body temperature 97.1 [degF] Dr. Yassine Link Work Phone: [facility] 12-01-2022 09:53-0500 Body weight 77.[address] Yassine Link Work Phone: 7(406)734-758773 [place] [address] 11-30-2022 07:39-0500 Body mass index (BMI) [Ratio] 33.4 kg/m2 Dr. Yassine Link Work Phone: 8(141)977-490313 [place] [address] 11-30-2022 07:39-0500 Body temperature 98.2 [degF] Dr. Yassine Link Work Phone: 1(015)393-224512 [address] 11-30-2022 07:39-0500 Body weight 77.[address] Yassine Link Work Phone: 1(883)689-060212 [address] 11-30-2022 07:39-0500 Diastolic blood pressure 66 mm[Hg] Dr. Yassine Link Work Phone: 5(654)163-163613 [place] [address] 11-30-2022 07:39-0500 Heart rate 83 /min Dr. Yassine Link Work Phone: 5(811)572-023513 [place] [address] 11-30-2022 07:39-0500 Respiratory rate 14 /min Dr. Yassine Link Work Phone: [facility] 11-30-2022 07:39-0500 SaO2% (BldA) [Mass fraction] 98 % Dr. Yassine Link Work Phone: 4(090)263-396913 [place] [address] 11-30-2022 07:39-0500 Systolic blood pressure 118 mm[Hg] Dr. Yassine Link Work Phone: [facility] 11-03-2022 10:19-0500 Body temperature 97.81 [degF] German Pires DIAMOND FINISHING SUPERVISOR.COUNT TEAM CLERK Work Phone: [facility] 11-03-2022 10:19-0500 Body weight 75.75 kg German Pires DIAMOND FINISHING SUPERVISOR.COUNT TEAM CLERK Work Phone: [facility] 11-03-2022 10:19-0500 Diastolic blood pressure 60 mm[Hg] German Pires DIAMOND FINISHING SUPERVISOR.COUNT TEAM CLERK Work Phone: [facility] 11-03-2022 10:19-0500 Heart rate 85 /min German Pires DIAMOND FINISHING SUPERVISOR.COUNT TEAM CLERK Work Phone: [facility] 11-03-2022 10:19-0500 SaO2% (BldA) [Mass fraction] 100 % German Pires DIAMOND FINISHING SUPERVISOR.COUNT TEAM CLERK Work Phone: [facility] 11-03-2022 10:19-0500 Systolic blood pressure 118 mm[Hg] German Pedrozas DIAMOND FINISHING SUPERVISOR.COUNT TEAM CLERK Work Phone: [facility] 10-22-2022 02:27-0500 Diastolic blood pressure 82 mm[Hg] Dr. Yassine Link Work Phone: [facility] 10-22-2022 02:27-0500 Heart rate 57 /min Dr. Yassine Link Work Phone: 4(799)592-481113 [place] [address] 10-22-2022 02:27-0500 Respiratory rate 16 /min Dr. Yassine Link Work Phone: 0(279)849-664313 [place] [address] 10-22-2022 02:27-0500 SaO2% (BldA) [Mass fraction] 99 % Dr. Yassine Link Work Phone: [facility] 10-22-2022 02:27-0500 Systolic blood pressure 116 mm[Hg] Dr. Yassine Link Work Phone: 0(178)481-332913 [place] [address] 10-21-2022 21:53-0500 Body temperature 97.6 [degF] Dr. Yassine Link Work Phone: [facility] 10-21-2022 21:51-0500 Body height 152.[address] Yassine Link Work Phone: [facility] Work Phone: 10-21-2022 21:51-0500 Body mass index (BMI) [Ratio] 34.1 kg/m2 Dr. Yassine Link Work Phone: [facility] 10-21-2022 21:51-0500 Body weight 79.[address] Yassine Link Work Phone: [facility] 10-05-2022 11:39-0500 Body temperature 97.7 [degF] Yassine [...] Link MD Work Phone: [facility] 09-26-2022 14:27-0400 Respiratory rate 16 /min Dr. Yassine Link Work Phone: [facility] 09-26-2022 11:13-0400 Body height 152.[address] Yassine Link Work Phone: [facility] Work Phone: 09-26-2022 11:13-0400 Body mass index (BMI) [Ratio] 33 kg/m2 Dr. Yassine Link Work Phone: [facility] 09-26-2022 11:13-0400 Body temperature 97.1 [degF] Dr. Yassine Link Work Phone: [facility] 09-26-2022 11:13-0400 Body weight 76.[address] Yassine Link Work Phone: [facility] 09-26-2022 11:13-0400 Diastolic blood pressure 86 mm[Hg] Dr. Yassine Link Work Phone: [facility] 09-26-2022 11:13-0400 Heart rate 89 /min Dr. Yassine Link Work Phone: [facility] 09-26-2022 11:13-0400 SaO2% (BldA) [Mass fraction] 100 % Dr. Yassine Likn Work Phone: [facility] 09-26-2022 11:13-0400 Systolic blood pressure 117 mm[Hg] Dr. Yassine Link Work Phone: [facility] 09-26-2022 10:32-0400 Body temperature 97.2 [degF] Yassine [...] Yassine Link MD Work Phone: [facility] 09-20-2022 08:20-0400 Body mass index (BMI) [Ratio] 33.5 kg/m2 Dr. Yassine Link Work Phone: [facility] 09-20-2022 08:20-0400 Body temperature 97 [degF] Dr. Yassine Link Work Phone: 6(251)573-216013 [place] [address] 09-20-2022 08:20-0400 Body weight 77.[address] Yassine Link Work Phone: 3(026)202-662512 [address] 09-20-2022 08:20-0400 Diastolic blood pressure 74 mm[Hg] Dr. Yassine Link Work Phone: 0(037)459-563612 [address] 09-20-2022 08:20-0400 Heart rate 70 /min Dr. Yassine Link Work Phone: 4(879)058-241673 [place] [address] 09-20-2022 08:20-0400 Respiratory rate 17 /min Dr. Yassine Link Work Phone: 7(509)295-622673 [place] [address] 09-20-2022 08:20-0400 SaO2% (BldA) [Mass fraction] 98 % Dr. Yassine Link Work Phone: 1(763)881-635213 [place] [address] 09-20-2022 08:20-0400 Systolic blood pressure 106 mm[Hg] Dr. Yassine Link Work Phone: 4(693)576-132913 [place] [address] 09-16-2022 18:11-0400 Body mass index (BMI) [Ratio] 32.2 kg/m2 Dr. Yassine Link Work Phone: 4(971)525-309813 [place] [address] 09-16-2022 18:11-0400 Body temperature 98.1 [degF] Dr. Yassine Link Work Phone: 7(073)652-573713 [place] [address] 09-16-2022 18:11-0400 Body weight 74.[address] Yassine Link Work Phone: 7(870)268-679573 [place] [address] 09-16-2022 18:11-0400 Diastolic blood pressure 89 mm[Hg] Dr. Yassine Link Work Phone: [facility] 09-16-2022 18:11-0400 Heart rate 98 /min Dr. Yassine Link Work Phone: [facility] 09-16-2022 18:11-0400 Respiratory rate 16 /min Dr. Yassine Link Work Phone: [facility] 09-16-2022 18:11-0400 SaO2% (BldA) [Mass fraction] 98 % Dr. Yassine Link Work Phone: [facility] 09-16-2022 18:11-0400 Systolic blood pressure 127 mm[Hg] Dr. Yassine Link Work Phone: [facility] 08-31-2022 09:09-0400 Heart rate 85 /min [facility] DIAMOND FINISHING SUPERVISOR.RACING CAR DRIVER Work Phone: [facility] 08-31-2022 09:09-0400 Respiratory rate 16 /min [facility] DIAMOND FINISHING SUPERVISOR.RACING CAR DRIVER Work Phone: [facility] 08-31-2022 09:09-0400 SaO2% (BldA) [Mass fraction] 98 % [facility] DIAMOND FINISHING SUPERVISOR.RACING CAR DRIVER Work Phone: [facility] 08-03-2022 13:48-0400 Body mass index (BMI) [Ratio] 33 kg/m2 Dr. Yassine Link Work Phone: [facility] Work Phone: 08-03-2022 13:48-0400 Body weight 76.[address] Yassine Link Work Phone: [facility] Work Phone: 08-03-2022 13:48-0400 Diastolic blood pressure 68 mm[Hg] Dr. Yassine Link Work Phone: [facility] Work Phone: 08-03-2022 13:48-0400 Systolic blood pressure 112 mm[Hg] Dr. Yassine Link Work Phone: [facility] Work Phone: 07-28-2022 17:07-0400 Body temperature 97.3 [...] Yassine Link MD Work Phone: [facility] 07-27-2022 23:23-0400 Heart rate 77 /min [facility] Work Phone: 07-27-2022 23:23-0400 Respiratory rate 17 /min [facility] Work Phone: 07-27-2022 23:23-0400 SaO2% (BldA) [Mass fraction] 99 % [facility] Work Phone: 07-27-2022 20:56-0400 Body temperature 98.1 [degF] [facility] Work Phone: 07-27-2022 20:56-0400 Diastolic blood pressure 65 mm[Hg] [facility] Work Phone: 07-27-2022 20:56-0400 Systolic blood pressure 120 mm[Hg] [facility] Work Phone: 07-27-2022 20:54-0400 Body height 152.4 cm [facility] Work Phone: 07-27-2022 20:54-0400 Body mass index (BMI) [Ratio] 32.2 kg/m2 [facility] Work Phone: 07-27-2022 20:54-0400 Body weight 74.84 kg [facility] Work Phone: 07-11-2022 12:22-0400 Respiratory rate 18 /min [facility] Work Phone: 07-11-2022 10:42-0400 Body height 152.4 cm [facility] Work Phone: 07-11-2022 10:42-0400 Body mass index (BMI) [Ratio] 33.6 kg/m2 [facility] Work Phone: 07-11-2022 10:42-0400 Body temperature 97.7 [degF] [facility] Work Phone: 07-11-2022 10:42-0400 Body weight 78.1 kg [facility] Work Phone: 07-11-2022 10:42-0400 Diastolic blood pressure 77 mm[Hg] [facility] Work Phone: 07-11-2022 10:42-0400 Heart rate 76 /min [facility] Work Phone: 07-11-2022 10:42-0400 SaO2% (BldA) [Mass fraction] 100 % [facility] Work Phone: 07-11-2022 10:42-0400 Systolic blood pressure 122 mm[Hg] [facility] Work Phone: 06-19-2022 11:43-0400 Body weight 77.11 kg German Piresdonald [facility] Work Phone: [facility] 06-19-2022 11:43-0400 Diastolic blood pressure 78 mm[Hg] German Pires DIAMOND FINISHING SUPERVISOR.COUNT TEAM CLERK Work Phone: [facility] 06-19-2022 11:43-0400 Heart rate 84 /min German Pires DIAMOND FINISHING SUPERVISOR.COUNT TEAM CLERK Work Phone: [facility] 06-19-2022 11:43-0400 Respiratory rate 16 /min German Pires DIAMOND FINISHING SUPERVISOR.COUNT TEAM CLERK Work Phone: [facility] 06-19-2022 11:43-0400 Systolic blood pressure 118 mm[Hg] German Pires DIAMOND FINISHING SUPERVISOR.COUNT TEAM CLERK Work Phone: [facility] 05-30-2022 13:27-0400 Diastolic blood pressure 75 mm[Hg] [facility] Work Phone: 05-30-2022 13:27-0400 Respiratory rate 14 /min [facility] Work Phone: 05-30-2022 13:27-0400 Systolic blood pressure 136 mm[Hg] [facility] Work Phone: 05-30-2022 11:03-0400 Body height 152.4 cm [facility] Work Phone: 05-30-2022 11:03-0400 Body mass index (BMI) [Ratio] 34 kg/m2 [facility] Work Phone: 05-30-2022 11:03-0400 Body temperature 98.7 [degF] [facility] Work Phone: 05-30-2022 11:03-0400 Body weight 78.92 kg [facility] Work Phone: 05-30-2022 11:03-0400 Heart rate 85 /min [facility] Work Phone: 05-30-2022 11:03-0400 SaO2% (BldA) [Mass fraction] 98 % [facility] Work Phone: 05-23-2022 11:44-0400 Body temperature 97.2 [...] Yassine Link MD Work Phone: [facility] 03-09-2022 22:31-0400 Body height 152.4 cm [facility] Work Phone: 03-09-2022 22:31-0400 Body mass index (BMI) [Ratio] 34.2 kg/m2 [facility] Work Phone: 03-09-2022 22:31-0400 Body temperature 96.7 [degF] [facility] Work Phone: 03-09-2022 22:31-0400 Body weight 79.5 kg [facility] Work Phone: 03-09-2022 22:31-0400 Diastolic blood pressure 73 mm[Hg] [facility] Work Phone: 03-09-2022 22:31-0400 Heart rate 78 /min [facility] Work Phone: 03-09-2022 22:31-0400 Respiratory rate 14 /min [facility] Work Phone: 03-09-2022 22:31-0400 Systolic blood pressure 123 mm[Hg] [facility] Work Phone: 02-24-2022 09:58-0400 Body weight 77.56 kg German Pires DIAMOND FINISHING SUPERVISOR.COUNT TEAM CLERK Work Phone: [facility] 02-24-2022 09:58-0400 Diastolic blood pressure 72 mm[Hg] German Pires DIAMOND FINISHING SUPERVISOR.COUNT TEAM CLERK Work Phone: [facility] 02-24-2022 09:58-0400 Heart rate 76 /min German Pires DIAMOND FINISHING SUPERVISOR.COUNT TEAM CLERK Work Phone: [facility] 02-24-2022 09:58-0400 Respiratory rate 16 /min German Pires DIAMOND FINISHING SUPERVISOR.COUNT TEAM CLERK Work Phone: [facility] 02-24-2022 09:58-0400 Systolic blood pressure 102 mm[Hg] German Pires DIAMOND FINISHING SUPERVISOR.COUNT TEAM CLERK Work Phone: [facility] 12-20-2021 13:10-0500 Body mass index (BMI) [Ratio] 32.2 kg/m2 [facility] Work Phone: 12-20-2021 13:10-0500 Body temperature 97.2 [degF] [facility] Work Phone: 12-20-2021 13:10-0500 Body weight 74.84 kg [facility] Work Phone: 12-20-2021 13:10-0500 Diastolic blood pressure 78 mm[Hg] [facility] Work Phone: 12-20-2021 13:10-0500 Heart rate 83 /min [facility] Work Phone: 12-20-2021 13:10-0500 Respiratory rate 16 /min [facility] Work Phone: 12-20-2021 13:10-0500 SaO2% (BldA) [Mass fraction] 100 % [facility] Work Phone: 12-20-2021 13:10-0500 Systolic blood pressure 123 mm[Hg] [facility] Work Phone: 11-26-2021 13:53-0500 Body mass index (BMI) [Ratio] 33.2 kg/m2 [facility] Work Phone: 11-26-2021 13:53-0500 Body temperature 98.4 [degF] [facility] Work Phone: 11-26-2021 13:53-0500 Body weight 77.11 kg [facility] Work Phone: 11-26-2021 13:53-0500 Diastolic blood pressure 77 mm[Hg] [facility] Work Phone: 11-26-2021 13:53-0500 Heart rate 70 /min [facility] Work Phone: 11-26-2021 13:53-0500 Respiratory rate 16 /min [facility] Work Phone: 11-26-2021 13:53-0500 SaO2% (BldA) [Mass fraction] 100 % [facility] Work Phone: 11-26-2021 13:53-0500 Systolic blood pressure 137 mm[Hg] [facility] Work Phone: Encounters Encounter Date Encounter Type Care Provider Facility Start: 09-15-2025 ambulatory Yassine Cruz ty:[facility] Start: 09-12-2025 End: 09-12-2025 Emergency department patient visit Yassine Link Facility:[facility] Start: 08-27-2025 ambulatory Yassine Cruz ty:[facility] Start: 08-24-2025 End: 08-24-2025 ambulatory GERMAN PIRES Facility:[facility] Start: 08-23-2025 End: 08-23-2025 Emergency department patient visit Dr. Yassine Link MD Work Phone: -Emergency Department Work Phone: Start: 08-03-2025 End: 08-03-2025 Subsequent hospital visit by physician Xr [facility] [place] Work Phone: Radiology Comment on above: Acute pain of right shoulder [M25.511] Start: 08-03-2025 End: 08-03-2025 ambulatory GERMAN PIRES Facility:[facility] Start: 07-30-2025 End: 08-03-2025 ambulatory German Pires DIAMOND FINISHING SUPERVISOR.COUNT TEAM CLERK Work Phone: [facility] [place] Comment on above: Pain Start: 07-28-2025 End: 07-28-2025 Office outpatient visit 15 minutes German Pires DIAMOND FINISHING SUPERVISOR.COUNT TEAM CLERK Work Phone: [facility] [place] Comment on above: Acute pain of right shoulder (Primary Dx); Left foot pain; Sprain of right shoulder, unspecified shoulder sprain type, sequela; Pain in right foot; Family history of liver disease Start: 07-28-2025 End: 07-28-2025 ambulatory YASSINE LINK Facility:[facility] Start: 07-14-2025 End: 07-14-2025 ambulatory German Pires DIAMOND FINISHING SUPERVISOR.COUNT TEAM CLERK Work Phone: [facility] [place] Comment on above: Meds Start: 07-03-2025 End: 07-03-2025 ambulatory YASSINE SANTACRUZZ Facility:[facility] Start: 05-26-2025 Non-patient / Non-visit Dr. Tiffany burgos MD -[facility] Work Phone: Start: 05-12-2025 End: 05-12-2025 Refill German Pires DIAMOND FINISHING SUPERVISOR.COUNT TEAM CLERK Work Phone: [facility] [place] Comment on above: Refill Request Start: 04-27-2025 End: 04-29-2025 Telephone encounter German Pires DIAMOND FINISHING SUPERVISOR.COUNT TEAM CLERK Work Phone: [facility] [place] Comment on above: Patient Question Start: 04-24-2025 End: 04-24-2025 Office outpatient visit 15 minutes German Pires DIAMOND FINISHING SUPERVISOR.COUNT TEAM CLERK Work Phone: [facility] [place] Comment on above: Partial thickness bu rn of right lower extremity, initial encounter (Primary Dx) Start: 04-24-2025 End: 04-24-[facility] Start: 03-16-2025 End: 03-20-2025 ambulatory German Pires DIAMOND FINISHING SUPERVISOR.COUNT TEAM CLERK Work Phone: [facility] [place] Comment on above: Oxygen Start: 03-16-2025 End: 03-20-2025 Outreach Lab ROMELIA CUNNINGHAM MD [facility] Start: 03-03-2025 End: 05-28-2025 Telephone encounter Mallory Marrero APRN.RACING CAR DRIVER Work Phone: General Surgery Start: 03-02-2025 End: 03-02-2025 Office outpatient visit 15 minutes Germanjean carlos Pedrozas DIAMOND FINISHING SUPERVISOR.COUNT TEAM CLERK Work Phone: [facility] [place] Comment on above: Pulmonary infiltrate s on CXR (Primary Dx); Gastroesophageal reflux disease, unspecified whether esophagitis present Start: 03-02-2025 End: 03-02-2025 Refill German Pires DIAMOND FINISHING SUPERVISOR.COUNT TEAM CLERK Work Phone: [facility] [place] Comment on above: Refill Request Start: 02-26-2025 End: 02-26-2025 Telephone encounter German Pires APRN.COUNT TEAM CLERK Work Phone: [facility] [place] Comment on above: [facility]ax referral to [facility] Start: 02-23-2025 End: 04-25-2025 Follow-up encounter German Pires APRN.COUNT TEAM CLERK Work Phone: [facility] [place] Start: 02-23-2025 End: 02-23-2025 Subsequent hospital visit by physician Xr [facility] [place] Work Phone: Radiology Comment on above: Pneumonia of left lo wer lobe due to infectious organism [J18.9] Start: 02-23-2025 End: 02-23-2025 ambulatory YASSINE LINK Facility:[facility] Start: 02-23-2025 End: 02-23-2025 Office outpatient visit 25 minutes German Pires APRN.COUNT TEAM CLERK Work Phone: [facility] [place] Comment on above: Pneumonia of left lo wer lobe due to infectious organism (Primary Dx); Influenza A; Hypoxia; Tobacco use disorder; Chest pain on breathing Start: 02-17-2025 End: 02-20-2025 Evaluation and management of inpatient DR YASSINE LINK MD Facility:[facility] Start: 02-16-2025 End: 02-16-2025 ambulatory YASSINE LINK Facility:[facility] Start: 02-16-2025 End: 02-16-2025 Office outpatient visit 25 minutes German Pires APRN.COUNT TEAM CLERK Work Phone: [facility] [place] Comment on above: Influenza A (Primary Dx); Gastroesophageal reflux disease, unspecified whether esophagitis present; Adverse effect of drug, initial encounter; Acute cough; Wheezing Start: 02-13-2025 End: 02-13-2025 Emergency department patient visit Dr. Yassine iLnk MD Work Phone: -Emergency Department Work Phone: Start: 02-13-2025 End: 02-13-2025 ambulatory YASSINE LINK Facility:[facility] Start: 02-13-2025 End: 02-13-2025 Patient encounter procedure Yassine Link MD Work Phone: [facility] [place] Comment on above: Dehydration (Primary Dx); Subacute cough Start: 02-03-2025 End: 02-03-2025 Orders Only Mallory Marrero RACING CAR DRIVER Work Phone: General Surgery Comment on above: Gastroesophageal ref lux disease, unspecified whether esophagitis present (Primary Dx); Epigastric pain; Abnormal weight loss Start: 01-29-2025 End: 01-29-2025 ambulatory MALLORY MARRERO Facility:[facility] Start: 01-27-2025 End: 01-27-2025 ambulatory YASSINE LINK Facility:[facility] Start: 01-27-2025 End: 01-27-2025 Office outpatient visit 15 minutes Mayda Madrigal MD Work Phone: [facility] [place] Comment on above: Encounter to discuss test results (Primary Dx) Start: 01-26-2025 End: 01-26-2025 Patient encounter procedure Yassine Link MD Work Phone: [facility] [place] Comment on above: Laryngitis, acute (P rimary Dx); Asthma with acute exacerbation, unspecified asthma severity, unspecified whether persistent Start: 01-26-2025 End: 01-26-2025 ambulatory YASSINE LINK Facility:[facility] Start: 01-22-2025 End: 01-22-2025 Subsequent hospital visit by physician [facility] (I-Stat) Work Phone: Cat Scan Comment on above: Peritonitis (HCC) [K 65.9] Start: 01-22-2025 End: 01-22-2025 ambulatory YASSINE LINK Facility:[facility] Start: 01-22-2025 End: 01-22-2025 Subsequent hospital visit by physician [facility] Cat Scan Start: 01-20-2025 End: 01-20-2025 Telephone encounter Yassine Link MD Work Phone: [facility] [place] Comment on above: Patient Update Start: 01-20-2025 End: 01-20-[address] Yassine Link MD Work Phone: [facility] Work Phone: Start: 01-20-2025 End: 01-20-2025 Patient encounter procedure Mayda Madrigal MD Work Phone: [facility] [place] Comment on above: Epigastric pain (Cathleen panfilo Dx); Peritonitis (HCC); Rebound tenderness Start: 01-20-2025 End: 01-20-2025 ambulatory Romelia Kenny Cunningham Facility:[facility] Start: 01-15-2025 End: 01-15-2025 Emergency department patient visit ULISES HERRERA [facility] Start: 01-15-2025 End: 01-15-2025 Emergency department patient visit ED PHYSICIAN PROVIDER -Emergency Department Work Phone: Start: 01-15-2025 End: 01-15-2025 ambulatory Nurse Intm/Famp Triage [facility] Work Phone: Nurse Phone Triage Comment on above: Vomiting Start: 01-13-2025 End: 02-13-2025 ambulatory Yassine Link MD Work Phone: [facility] [place] Start: 01-08-2025 End: 02-23-2025 Telephone encounter Mallory Marrero APRN.RACING CAR DRIVER Work Phone: General Surgery Start: 01-08-2025 End: 01-13-2025 ambulatory [facility] Pranay SORENSEN.COUNT TEAM CLERK Work Phone: [facility] [place] Comment on above: Dr Negrete Start: 01-08-2025 End: 01-08-2025 Patient encounter procedure Mallory Marrero APRN.RACING CAR DRIVER Work Phone: General Surgery Comment on above: Nausea (Primary Dx); Gastroesophageal reflux disease, unspecified whether esophagitis present; Epigastric pain; Abnormal weight loss; Dysphagia, unspecified type Start: 12-26-2024 End: 12-26-2024 ambulatory Germanjean carlos Pires APRN.COUNT TEAM CLERK Work Phone: [facility] [place] Comment on above: Med Start: 12-23-2024 End: 12-23-2024 [facility] Start: 12-23-2024 End: 12-23-2024 Office outpatient visit 25 minutes German Pranay DIAMOND FINISHING SUPERVISOR.COUNT TEAM CLERK Work Phone: [facility] [place] Comment on above: Situational depressi on (Primary Dx); Nausea and vomiting, unspecified vomiting type; Hot flashes; Epigastric pain; Gastroesophageal reflux disease, unspecified whether esophagitis present; Uncomplicated asthma, unspecified asthma severity, unspecified whether persistent Start: 10-20-2024 End: 10-20-2024 ambulatory YASSINE LINK Facility:[facility] Start: 10-20-2024 End: 10-20-2024 Patient encounter procedure Yassine Link MD Work Phone: [facility] [place] Comment on above: Dysuria (Primary Dx) ; Urinary frequency Start: 10-10-2024 End: 10-10-2024 Refill Beatrice Watters DIAMOND FINISHING SUPERVISOR.RACING CAR DRIVER Work Phone: [facility] [place] Comment on above: Refill Request Start: 07-24-2024 End: 07-24-2024 Refill Yassine Link MD Work Phone: [facility] [place] Comment on above: Refill Request Start: 06-12-2024 End: 06-12-2024 ambulatory ROMELIA CUNNINGHAM MD Facility: Start: 06-12-2024 End: 06-12-2024 Patient encounter procedure ROMELIA CUNNINGHAM MD [facility] Start: 06-09-2024 End: 06-09-2024 Office outpatient visit 25 minutes German Pranay DIAMOND FINISHING SUPERVISOR.COUNT TEAM CLERK Work Phone: Internal Medicine [place] Comment on above: Fall, subsequent enc ounter (Primary Dx); Sprain of right wrist, subsequent encounter; Cervicalgia; Hot flashes; Nausea and vomiting, unspecified vomiting type; Hematoma Start: 05-16-2024 Refill Beatrice wilson DIAMOND FINISHING SUPERVISOR.RACING CAR DRIVER Work Phone: [facility] [place] Comment on above: Refill Request Start: 04-29-2024 End: 04-29-2024 ambulatory Yassine Link MD Work Phone: [facility] [place] Comment on above: Bursitis of other bu rsa of right hip (Primary Dx) Start: 04-29-2024 End: 04-29-2024 Telemedicine consultation with patient Yassine Link MD Work Phone: [facility] [place] Start: 04-24-2024 End: 04-24-2024 Patient encounter procedure Yassine Link MD Work Phone: [facility] [place] Comment on above: Bursitis of other bu rsa of right hip (Primary Dx) Start: 04-15-2024 Refill Beatrice wilson DIAMOND FINISHING SUPERVISOR.RACING CAR DRIVER Work Phone: [facility] [place] Comment on above: Refill Request Start: 03-23-2024 Refill Ysasine herron MD Work Phone: [facility] [place] Comment on above: Refill Request Start: 03-13-2024 End: 03-13-2024 Patient encounter procedure Gertrude Henry MD Work Phone: General Surgery Comment on above: Status post incision and drainage (Primary Dx) Start: 03-12-2024 Telephone encounter Gertrude Patrick MD Work Phone: General Surgery Start: 03-02-2024 End: 03-02-2024 Emergency department patient visit [facility] Work Phone: Start: 02-25-2024 End: 02-25-2024 Office outpatient visit 15 minutes German Pires DIAMOND FINISHING SUPERVISOR.COUNT TEAM CLERK Work Phone: Internal [facility] Comment on above: Pilonidal cyst with abscess (Primary Dx); Abscess, gluteal, left Start: 02-11-2024 End: 02-11-2024 Emergency department patient visit [facility] Work Phone: Start: 01-17-2024 End: 01-17-2024 Emergency department patient visit [facility] Work Phone: Start: 01-17-2024 Refill Yassine herron MD Work Phone: [facility] [place] Comment on above: Refill Request Start: 01-10-2024 End: 01-10-2024 Office outpatient visit 25 minutes German Pires APRNBenitaCOUNT TEAM CLERK Work Phone: [facility] [place] Comment on above: Pilonidal cyst with abscess (Primary Dx); Abscess, gluteal, left Start: 01-07-2024 End: 01-07-2024 Patient encounter procedure Gertrude Henry MD Work Phone: General Surgery Comment on above: Status post incision and drainage (Primary Dx) Start: 01-05-2024 End: 01-05-2024 Emergency department patient visit [facility] Work Phone: Start: 01-02-2024 End: 01-02-2024 Emergency department patient visit JOLANTA URBAN DO [facility] Start: 01-02-2024 Telephone encounter Gertrude Patrick MD Work Phone: General Surgery Comment on above: Patient Update (Reinaldo nidal cyst) Start: 12-25-2023 End: 12-25-2023 Patient encounter procedure Gertrude Henry MD Work Phone: General Surgery Comment on above: Postoperative pain ( Primary Dx); Status post incision and drainage Start: 12-23-2023 End: 12-23-2023 Emergency department patient visit [facility] Work Phone: Start: 12-23-2023 ambulatory Anu Morin RN NURSE TRACK LAYING SUPERVISOR Comment on above: Patient Update (Tina fernandez ) Start: 12-22-2023 End: 12-22-2023 Emergency department patient visit [facility] Work Phone: Start: 12-08-2023 End: 12-08-2023 Emergency department patient visit [facility] Work Phone: Start: 12-07-2023 End: 09-30-2024 Telephone encounter Gertrude Henry MD Work Phone: General Surgery Comment on above: 12/20/2023 I & D REINALDO NIDAL CYST ABSCESS LODI Start: 11-25-2023 End: 11-25-2023 [facility] Start: 11-21-2023 End: 11-21-2023 Emergency department patient visit [facility] REAVES [facility] Start: 11-19-2023 End: 11-19-2023 [facility]: Start: 11-11-2023 End: 11-11-2023 [facility]: Start: 10-02-2023 ambulatory Yassine herron MD Work Phone: [facility] [place] Comment on above: Dr note Start: 10-01-2023 End: 10-01-2023 ambulatory Yassine Link MD Work Phone: [facility] [place] Comment on above: Asthma with acute ex acerbation, unspecified asthma severity, unspecified whether persistent (Primary Dx); Nausea and vomiting, unspecified vomiting type Start: 10-01-2023 End: 10-01-2023 Telemedicine consultation with patient Yassine Link MD Work Phone: [facility] Start: 09-21-2023 Telephone encounter Yassine weber MD Work Phone: [facility] [place] Comment on above: Pharmacist Call Start: 09-21-2023 End: 09-21-2023 [facility] Work [facility]: Start: 07-03-2023 MC Get Medical Advice Yassine Link MD Work Phone: [facility] [place] Comment on above: Refill Start: 06-30-2023 End: 06-30-2023 [facility] Work [facility]: Start: 06-01-2023 Refill Beatrice Older DIAMOND FINISHING SUPERVISOR .RACING CAR DRIVER Work Phone: [facility] [place] Comment on above: Refill Request Start: 05-28-2023 End: 05-28-2023 Patient encounter procedure Yassine Link MD Work Phone: Internal [facility] Comment on above: Postoperative abdomi nal pain (Primary Dx); Gastroesophageal reflux disease without esophagitis Start: 05-27-2023 End: 05-27-2023 [facility]: Start: 04-25-2023 End: 04-25-2023 [facility] Start: 04-11-2023 End: 04-11-2023 [facility] Start: 04-02-2023 Refill Beatrice Older DIAMOND FINISHING SUPERVISOR .RACING CAR DRIVER Work Phone: [facility] [place] Comment on above: Refill Request Start: 03-12-2023 End: 03-12-2023 ambulatory Yassine Link MD Work Phone: [facility] [place] Comment on above: Pain of left shoulde r region (Primary Dx); Anxiety with depression; Thoracic outlet syndrome; Non-adherence to medical treatment Start: 03-12-2023 End: 03-12-2023 Telemedicine consultation with patient Yassine Link MD Work Phone: [facility] Start: 03-12-2023 End: 03-12-2023 Emergency department patient visit Dr[facility]assine Link [facility] Start: 02-24-2023 End: 02-24-2023 Emergency department patient visit Dr[facility]assine Link [facility] Start: 02-23-2023 Refill Beatrice Older DIAMOND FINISHING SUPERVISOR .RACING CAR DRIVER Work Phone: Internal [facility] Comment on above: Refill Request Start: 02-20-2023 Orders Only Estevan Vásquez Work Phone: Vascular Surg Dept Comment on above: Cervicalgia (Primary Dx) [facility] Patient Question Start: 02-05-2023 Refill German ROCKCOUNT TEAM CLERK Work Phone: [facility] [place] Comment on above: Refill Request Start: 01-31-2023 End: 01-31-2023 Subsequent hospital visit by physician [facility] (I-Stat/1.5t) Work Phone: Radiology Comment on above: Canceled (Pt cx: Res cheduled) No Show Start: 01-29-2023 End: 01-29-2023 ambulatory German Pires DIAMOND FINISHING SUPERVISOR.COUNT TEAM CLERK Work Phone: [facility] [place] Comment on above: Thoracic outlet synd lyly (Primary Dx); Chronic post-operative pain; Cervicalgia; Chronic left shoulder pain Start: 01-29-2023 End: 01-29-2023 Telemedicine consultation with patient German Pedrozadonald CERVANTESCOUNT TEAM CLERK Work Phone: [facility] Start: 12-30-2022 End: 12-30-2022 Emergency department patient visit Dr. Yassine Link Work Phone: [facility] Start: 12-29-2022 Telephone encounter Carol wagoner DIAMOND FINISHING SUPERVISOR.RACING CAR DRIVER Work Phone: Vascular Surg Dept Comment on above: Orders Start: 12-28-2022 End: 12-28-2022 Patient encounter procedure Yassine Link MD Work Phone: [facility] [place] Comment on above: Thoracic outlet synd lyly (Primary Dx) Start: 12-28-2022 End: 12-28-2022 ambulatory Hao Hadley PT Work Phone: [facility] Comment on above: Acute pain of right shoulder Start: 12-20-2022 Refill Yassine herron MD Work Phone: Internal Medicine [place] Comment on above: Refill Request Start: 12-11-2022 End: 12-11-2022 ambulatory German Pires APRN.COUNT TEAM CLERK Work Phone: Internal Medicine [place] Comment on above: Thoracic outlet synd lyly (Primary Dx); Chronic post-operative pain; Cervicalgia; Chronic left shoulder pain Start: 12-11-2022 End: 12-11-2022 Telemedicine consultation with patient German Pranay SORENSEN.COUNT TEAM CLERK Work Phone: [facility] [place] Start: 12-08-2022 Patient encounter procedure Rosas Baugh MD Work Phone: General Surgery Start: 12-04-2022 Refill Yassine herron MD Work Phone: Internal [facility] [place] Comment on above: Refill Request Start: 12-01-2022 End: 12-01-2022 Patient encounter procedure Yassine Link MD Work Phone: Internal Medicine [place] Comment on above: Thoracic outlet synd lyly (Primary Dx) Start: 12-01-2022 End: 12-01-2022 Emergency department patient visit Dr. Yassine Link Work Phone: [facility] Start: 11-30-2022 Telephone encounter Yassine weber MD Work Phone: Internal Medicine [place] Comment on above: Medication Question Start: 11-30-2022 End: 11-30-[address] Yassine Link Work Phone: [facility] Start: 11-29-2022 ambulatory Yassine herron MD Work Phone: Internal Medicine [place] Comment on above: Shoulder Start: 11-09-2022 End: 11-09-2022 ambulatory Yassine Link MD Work Phone: Internal Medicine [place] Comment on above: Anxiety with depress ion (Primary Dx); Thoracic outlet syndrome Start: 11-09-2022 End: 11-09-2022 Telemedicine consultation with patient Yassine Link MD Work Phone: [facility] [place] Start: 11-03-2022 End: 11-03-2022 Office outpatient visit 15 minutes German Pranay SORENSEN.COUNT TEAM CLERK Work Phone: Internal Medicine [place] Comment on above: Folliculitis (Primar y Dx); RLQ abdominal pain; Cyst of ovary, right Start: 10-22-2022 Refill Beatrice Older DIAMOND FINISHING SUPERVISOR .RACING CAR DRIVER Work Phone: Internal [facility] Comment on above: Refill Request Start: 10-21-2022 End: 10-22-2022 Emergency department patient [facility]assine Link [facility] Start: 10-05-2022 End: 10-05-2022 Patient encounter procedure Yassine Link MD Work Phone: Internal [facility] Comment on above: RLQ abdominal pain ( Primary Dx); Cyst of ovary, right Refill Request Start: 10-04-2022 Refill Beatrice Older DIAMOND FINISHING SUPERVISOR .RACING CAR DRIVER Work Phone: Internal [facility] Comment on above: Refill Request Start: 09-26-2022 End: 09-26-2022 Emergency department patient visit Dr. Yassine Link [facility] Start: 09-26-2022 End: 09-26-2022 Patient encounter procedure Yassine Link MD Work Phone: Internal [facility] Comment on above: Lower abdominal pain (Primary Dx) Start: 09-20-2022 End: 09-20-[address] Yassine Link Work Phone: [facility] Start: 09-16-2022 End: 09-16-2022 Emergency department patient visit Dr. Yassine Link [facility] Start: 08-31-2022 End: 08-31-2022 Patient encounter procedure Izabela Stephens DIAMOND FINISHING SUPERVISOR.RACING CAR DRIVER Work Phone: [facility] Comment on above: TOS (thoracic outlet syndrome) (Primary Dx); Myofascial pain syndrome; Chronic left shoulder pain; Neck pain Start: 08-09-2022 ambulatory Yassine herron MD Work Phone: Internal [facility] [place] Comment on above: Meds Start: 08-03-2022 End: 08-03-[address] Yassine Link Work Phone: [facility] Start: 07-28-2022 End: 07-28-2022 Patient encounter procedure Yassine Link MD Work Phone: [facility] [place] Comment on above: Overactive bladder ( Primary Dx); Bacteriuria Start: 07-27-2022 End: 07-27-2022 [facility] Start: 07-27-2022 ambulatory Yassine herron MD Work Phone: [facility] [place] Comment on above: urinary symptoms; Fl ank Pain Start: 07-11-2022 End: 07-11-2022 [facility] Start: 07-07-2022 ambulatory Yassine herron MD Work Phone: [facility] [place] Comment on above: Meds Start: 07-03-2022 ambulatory Yassine herron MD Work Phone: [facility] [place] Comment on above: Lidocaine patches Start: 06-27-2022 ambulatory German ROCKCOUNT TEAM CLERK Work Phone: Internal [facility] [place] Comment on above: Pain management Start: 06-27-2022 Telephone encounter German wade DIAMOND FINISHING SUPERVISOR.COUNT TEAM CLERK Work Phone: Internal [facility] [place] Comment on above: Refill Request Start: 06-20-2022 ambulatory No Pcp Navigate [facility] Start: 06-20-2022 Telephone encounter Estevan Rivers se, MD Work Phone: Vascular Surg Dept Comment on above: Appointment Start: 06-19-2022 Telephone encounter Yassine weber MD Work Phone: Family [facility] [place] Comment on above: Future Appointment Start: 06-19-2022 End: 06-19-2022 Patient encounter procedure German Pires APRN.COUNT TEAM CLERK Work Phone: [facility] [place] Comment on above: Thoracic outlet synd lyly (Primary Dx) Start: 05-30-2022 End: 05-30-2022 [facility] Start: 05-23-2022 Chart abstracting Wesley MOTT Work Phone: Psychology Comment on above: Consult (Initial [facility] W Pt Outreach) Consult (SW Pt Out reach F/U) Start: 05-23-2022 End: 05-23-2022 Patient encounter procedure Yassine Link MD Work Phone: [facility] [place] Comment on above: Anxiety with depress ion (Primary Dx) Start: 05-09-2022 Refill Yassine herron MD Work Phone: Internal [facility] Comment on above: Refill Request Start: 05-04-2022 End: 05-04-2022 Patient encounter procedure Yassine Link MD Work Phone: Internal [facility] Comment on above: Thoracic outlet synd lyly (Primary Dx); Gastroesophageal reflux disease, unspecified whether esophagitis present; Uncomplicated asthma, unspecified asthma severity, unspecified whether persistent Start: 04-25-2022 Refill Beatrice Camargo APRN .RACING CAR DRIVER Work Phone: Internal [facility] Comment on above: Refill Request Start: 04-06-2022 Refill Yassine herron MD Work Phone: Internal [facility] Comment on above: Refill Request Start: 03-09-2022 End: 03-09-2022 [facility] Start: 02-24-2022 End: 02-24-2022 Patient encounter procedure German Pries DIAMOND FINISHING SUPERVISOR.COUNT TEAM CLERK Work Phone: Internal [facility] Comment on above: Acute pain of right shoulder (Primary Dx); Pain, postoperative, acute; TOS (thoracic outlet syndrome); Acute upper back pain Start: 12-20-2021 End: 12-20-2021 [facility] Start: 11-26-2021 End: 11-26-2021 [facility] Start: 06-13-2021 End: 06-13-2021 Subsequent hospital visit by physician Xr [facility] [place] Work Phone: Radiology Comment on above: Cough [R05] Start: 12-15-2020 End: 12-15-2020 Subsequent hospital visit by physician Xr [facility] [place] Work Phone: Radiology Comment on above: Knee injury, left, i nitial encounter [S89.92XA] Procedures Date Procedure Procedure Detail Performing Clinician Start: 08-03-2025 Radex shoulder compl ete minimum 2 views German Pires DIAMOND FINISHING SUPERVISOR.COUNT TEAM CLERK Work Phone: Start: 02-23-2025 Radiologic exam ches t 2 views German Pires DIAMOND FINISHING SUPERVISOR.COUNT TEAM CLERK Work Phone: Start: 02-13-2025 X-ray of chest, PA a nd lateral views Dr. Yassine Link MD Work Phone: Start: 02-13-2025 SARS-CoV-2, Influenz a & RSV (PCR) Dr. Yassine Link MD Work Phone: Start: 01-22-2025 Ct abdomen & pelvis w/contrast material Mayda Madrigal MD Work Phone: Start: 01-20-2025 Screening mammography Thalia Link MD Work Phone: [...] 08-23-2021 Adult depression screening assessment German Pires DIAMOND FINISHING SUPERVISOR.COUNT TEAM CLERK Work Phone: Start: 06-13-2021 Radiologic exam ches t 2 views Fatemeh Tejada DIAMOND FINISHING SUPERVISOR.RACING CAR DRIVER Work Phone: Start: 12-15-2020 Radiologic exam knee [...] Detail Author Start: 07-28-2026 Annual PCP Team Resource Conservation Specialist luis alberto Disease Visit Annual PCP Team Chronic Disease Visit [facility] Start: 07-03-2026 Annual PCP Team Resource Conservation Specialist luis alberto Disease Visit Annual PCP Team Chronic Disease Visit [facility] Start: 02-13-2026 Annual PCP Team Resource Conservation Specialist luis alberto Disease Visit Annual PCP Team Chronic Disease Visit [facility] Start: 01-27-2026 Annual PCP Team Resource Conservation Specialist luis alberto Disease Visit Annual PCP Team Chronic Disease Visit [facility] Start: 01-26-2026 Annual PCP Team Resource Conservation Specialist luis alberto Disease Visit Annual PCP Team Chronic Disease Visit [facility] Start: 01-20-2026 Annual PCP Team Resource Conservation Specialist luis alberto Disease Visit Annual PCP Team Chronic Disease Visit [facility] Start: 01-20-2026 Screening for malign ant neoplasm of breast Mammogram Screening [facility] Start: 10-20-2025 Annual PCP Team Resource Conservation Specialist luis alberto Disease Visit Annual PCP Team Chronic Disease Visit [facility] Start: 10-20-2025 Covid-19 Vaccine ( season) Covid-19 Vaccine ( season) [facility] Comment on above: Postponed from 07/27 (Declined at this time) Start: 09-28-2025 End: 09-28-2025 Patient encounter procedure 09/28/2025 1:00 PM EST Office Visit [facility] [place] [address] [place], [place] [id number] Yassine Link MD [address] [place], [place] [id number] 2 month f/u [facility] [place] Comment on above: 2 month f/u Start: 08-23-2025 End: 08-23-2025 [facility] Start: 07-27-2025 Influenza vaccination [facility] Start: 05-25-2025 Influenza vaccination Influenza Vacc ine (#1) [facility] Comment on above: Postponed from 07/27 (Declined at this time) Start: 04-29-2025 Annual PCP Team Resource Conservation Specialist luis alberto Disease Visit Annual PCP Team Chronic Disease Visit [facility] Start: 04-24-2025 Annual PCP Team Resource Conservation Specialist luis alberto Disease Visit Annual PCP Team Chronic Disease Visit [facility] Start: 03-12-2025 End: 03-12-2025 Patient encounter procedure 03/12/2025 3:00 PM EDT Appointment [facility] [address] [place] [address] Gertrude Henry MD [address] [place] [id number] [facility] Start: 03-11-2025 End: 03-11-2025 Patient encounter procedure 03/11/2025 3:30 PM EDT Appointment [facility] [address] [place] [id number] [facility] Start: 03-09-2025 End: 03-09-2025 Patient encounter procedure 03/09/2025 10:15 AM EDT Office Visit Pulmonary Medicine [address] [address] Sailaja Mccord MD [address] [place] [address] : Influenza A [J10.1]; Pneumonia of left lower lobe due to infectious organism [J18.9 Pulmonary Medicine Comment on above: : Influenza A [J10.1 ]; Pneumonia of left lower lobe due to infectious organism [J18.9 Start: 03-02-2025 End: 03-02-2025 Patient encounter procedure 03/02/2025 8:00 AM EDT Office Visit [facility] [place] [address] [place] [address] German Pires APRN.COUNT TEAM CLERK [address] [place] [address] follow up [facility] [place] Comment on above: follow up Start: 02-26-2025 End: 02-26-2025 Patient encounter procedure 02/26/2025 11:00 AM EDT Office Visit Pulmonary Medicine [address] [address] Sailaja Mccord MD [address] [place] [address] : Influenza A [J10.1]; Pneumonia of left lower lobe due to infectious organism [J18.9 Pulmonary Medicine Comment on above: : Influenza A [J10.1 ]; Pneumonia of left lower lobe due to infectious organism [J18.9 Start: 02-13-2025 [facility] Start: 02-13-2025 End: 02-13-2025 Patient encounter procedure 02/13/2025 4:40 PM EDT Office Visit [facility] [place] [address] [place] [address] Yassine Link MD [address] [place] [address] Can't stop coughing think I have pneumonia [facility] [place] Comment on above: Can't stop coughing think I have pneumonia Start: 01-29-2025 End: 01-29-2025 Patient encounter procedure [facility] Start: 01-27-2025 End: 01-27-2025 Patient encounter procedure 01/27/2025 3:20 PM EST Office Visit Internal Medicine [place] [address] [facility] [address] Mayda Madrigal MD [address] [place] [address] CT follow up Internal Medicine [place] Comment on above: CT follow up Start: 01-22-2025 End: 01-22-2025 Patient encounter procedure Cat Scan Comment on above: Peritonitis (HCC) [K 65.9]; Epigastric pain [R10.13]; Rebound tenderness [R10.829] Start: 12-11-2024 Annual PCP Team Resource Conservation Specialist luis alberto Disease Visit Annual PCP Team Chronic Disease Visit [facility] Start: 2024 Screening for malign ant neoplasm of breast Mammogram Screening [facility] Start: 10-10-2024 End: 10-10-2024 Patient encounter procedure 10/10/2024 8:40 AM EST Office Visit [facility] [place] [address] [facility] [place] [address] Yassine Link MD [address] [place] [address] follow up Internal Medicine [place] Comment on above: follow up Start: 10-01-2024 Annual PCP Team Resource Conservation Specialist luis alberto Disease Visit Annual PCP Team Chronic Disease Visit [facility] Start: 07-27-2024 Covid-19 Vaccine ( season) Covid-19 Vaccine ( season) [facility] Start: 07-27-2024 Influenza vaccination [facility] Start: 05-28-2024 ANNUAL PCP TEAM LINE MAINTAINER SECTION LUIS ALBERTO DISEASE VISIT ANNUAL PCP TEAM CHRONIC DISEASE VISIT [facility] Start: 03-12-2024 ANNUAL PCP TEAM LINE MAINTAINER SECTION LUIS ALBERTO DISEASE VISIT ANNUAL PCP TEAM CHRONIC DISEASE VISIT [facility] Start: 03-02-2024 [facility] Start: 02-21-2024 ANNUAL PCP TEAM LINE MAINTAINER SECTION LUIS ALBERTO DISEASE VISIT ANNUAL PCP TEAM CHRONIC DISEASE VISIT [facility] Start: 01-17-2024 [facility] Start: 01-05-2024 [facility] Start: 12-28-2023 ANNUAL PCP TEAM LINE MAINTAINER SECTION LUIS ALBERTO DISEASE VISIT ANNUAL PCP TEAM CHRONIC DISEASE VISIT [facility] Start: 12-22-2023 [facility] Start: 12-08-2023 [facility] Start: 12-01-2023 ANNUAL PCP TEAM LINE MAINTAINER SECTION LUIS ALBERTO DISEASE VISIT ANNUAL PCP TEAM CHRONIC DISEASE VISIT [facility] Start: 11-19-2023 [facility] Start: 11-11-2023 [facility] Start: 11-09-2023 ANNUAL PCP TEAM LINE MAINTAINER SECTION LUIS ALBERTO DISEASE VISIT ANNUAL PCP TEAM CHRONIC DISEASE VISIT [facility] Start: 10-05-2023 ANNUAL PCP TEAM LINE MAINTAINER SECTION LUIS ALBERTO DISEASE VISIT ANNUAL PCP TEAM CHRONIC DISEASE VISIT [facility] Start: 09-26-2023 ANNUAL PCP TEAM LINE MAINTAINER SECTION LUIS ALBERTO DISEASE VISIT ANNUAL PCP TEAM CHRONIC DISEASE VISIT [facility] Start: 09-21-2023 [facility] Start: 07-28-2023 ANNUAL PCP TEAM LINE MAINTAINER SECTION LUIS ALBERTO DISEASE VISIT ANNUAL PCP TEAM CHRONIC DISEASE VISIT [facility] Start: 07-27-2023 Covid-19 Vaccine ( season) Covid-19 Vaccine ( season) [facility] Start: 07-27-2023 Influenza vaccination [facility] Start: 05-25-2023 Influenza vaccination INFLUENZA (#1) [facility] Comment on above: Postponed from 07/27 (Declined at this time) Start: 05-23-2023 ANNUAL PCP TEAM LINE MAINTAINER SECTION LUIS ALBERTO DISEASE VISIT ANNUAL PCP TEAM CHRONIC DISEASE VISIT [facility] Start: 05-04-2023 ANNUAL PCP TEAM LINE MAINTAINER SECTION LUIS ALBERTO DISEASE VISIT ANNUAL PCP TEAM CHRONIC DISEASE VISIT [facility] Start: 05-04-2023 PNEUMOCOCCAL (1 - PCV) PNEUMOCOCCAL (1 - PCV) [facility] Comment on above: Postponed from 11/13 (Declined at this time) Start: 02-24-2023 ANNUAL PCP TEAM LINE MAINTAINER SECTION LUIS ALBERTO DISEASE VISIT ANNUAL PCP TEAM CHRONIC DISEASE VISIT [facility] Start: 01-17-2023 ANNUAL PCP TEAM LINE MAINTAINER SECTION LUIS ALBERTO DISEASE VISIT ANNUAL PCP TEAM CHRONIC DISEASE VISIT [facility] Start: 09-26-2022 Computed tomography of abdomen and pelvis with contrast Abdomen/Pelvis WITH Contrast [facility] Work Phone: Start: 09-26-2022 CT Abdomen and Pelvi s W contrast IV [facility] Work Phone: Start: 09-24-2022 Urine microalbumin profile [facility] Start: 09-08-2022 COVID-19 VACCINE (#1) COVID-19 VACCI NE (#1) [facility] Comment on above: Postponed from 11/13 (Declined at this time) Postponed from 05/14 (Declined at this time) Start: 09-08-2022 COVID-19 VACCINE (1) COVID-19 VACCIN E (1) [facility] Comment on above: Postponed from 11/13 (Declined at this time) Start: 08-23-2022 Adult depression screening assessment DEPRESSION SCREENING [facility] Start: 07-27-2022 [facility] Work Phone: Start: 07-27-2022 Influenza vaccination [facility] Start: 2011 HPV Vaccine (1 - 3-d ose SCDM series) HPV Vaccine (1 - 3-dose SCDM series) [facility] Start: 2003 Hepatitis B Vaccine (1 of 3 - 19+ 3-dose series) Hepatitis B Vaccine (1 of 3 - 19+ 3-dose series) [facility] Start: 2003 Pneumococcal vaccination Pneumococcal Vaccine (1 of 2 - PCV) [facility] Start: 1990 PNEUMOCOCCAL (1 - PCV) PNEUMOCOCCAL (1 - PCV) [facility] Start: 1990 Pneumococcal vaccination [facility] Start: 05-14-1985 COVID-19 VACCINE (#1) COVID-19 VACCI NE (#1) [facility] Start: 1984 HEPATITIS B (1 of 3 - 3-dose series) HEPATITIS B (1 of 3 - 3-dose series) [facility] Start: 1984 Hepatitis B Vaccine (1 of 3 - 3-dose series) Hepatitis B Vaccine (1 of 3 - 3-dose series) [facility] Bacteria identified in Urine by Culture URINE CULTURE Microbiology Routine Dysuria Urinary frequency 10/20/2024 8:[address] [facility] Work Phone: End: 02-19-2026 CT Abdomen and Pelvis W contrast IV CT ABD/PEL W IVCON Radiology STAT Peritonitis (HCC) Epigastric pain Rebound tenderness 1 Occurrences starting 01/20/2025 until 02/19/2026 [facility] Work Phone: Comment on above: 1 Occurrences starti ng 01/20/2025 until 02/19/2026 End: 02-12-2026 DBT Breast - bilateral screening ELSIE SCREENING W YUSEF Radiology Routine Encounter for screening mammogram for breast cancer 1 Occurrences starting 01/13/2025 until 02/12/2026 [facility] Work Phone: Comment on above: 1 Occurrences starti ng 01/13/2025 until 02/12/2026 End: 01-08-2026 EGD DIAGNOSTIC EGD DIAGNOSTIC Endoscopy Routine Gastroesophageal reflux disease, unspecified whether esophagitis present Nausea Epigastric pain Abnormal weight loss Dysphagia, unspecified type 1 Occurrences starting 01/08/2025 until 01/08/2026 [facility] Work Phone: Comment on above: 1 Occurrences starti ng 01/08/2025 until 01/08/2026 End: 02-03-2026 EGD DIAGNOSTIC EGD DIAGNOSTIC Endoscopy Routine Gastroesophageal reflux disease, unspecified whether esophagitis present Epigastric pain Abnormal weight loss 1 Occurrences starting 02/03/2025 until 02/03/2026 [facility] Work Phone: Comment on above: 1 Occurrences starti ng 02/03/2025 until 02/03/2026 MG Breast - bilatera l Screening [facility] Work Phone: Patient Education [facility] Work Phone: Patient referral [facility] Work Phone: PT PLAN OF CARE CERTIFICATION PT PLAN OF CARE CERTIFICATION Procedures Routine Acute pain of right shoulder Ordered: 12/28/2022 [facility] Work Phone: Comment on above: Ordered: 12/28/2022 End: 03-26-2023 Radex spine cervical 2 or 3 views XR CERV GENERAL 2V AP/LAT Radiology Routine Acute pain of right shoulder Acute upper back pain 1 Occurrences starting 02/24/2022 until 03/26/2023 [facility] Work Phone: Comment on above: 1 Occurrences starti ng 02/24/2022 until 03/26/2023 End: 09-30-2023 Radex spine cervical 6 or more views XR CERV OTHER 6V AP/LAT/FLX/EXT/OBL Radiology Routine Neck pain 1 Occurrences starting 08/31/2022 until 09/30/2023 [facility] Work Phone: Comment on above: 1 Occurrences starti ng 08/31/2022 until 09/30/2023 End: 09-30-2023 Radex spine thoracic 2 views XR THORACIC LIMITED 2V AP/LAT Radiology Routine TOS (thoracic outlet syndrome) 1 Occurrences starting 08/31/2022 until 09/30/2023 [facility] Work Phone: Comment on above: 1 Occurrences starti ng 08/31/2022 until 09/30/2023 End: 03-26-2023 Radex spine thoracic 3 views XR THORACIC GENERAL 3V AP/LAT/SWIMMERS Radiology Routine Acute pain of right shoulder Acute upper back pain 1 Occurrences starting 02/24/2022 until 03/26/2023 [facility] Work Phone: Comment on above: 1 Occurrences starti ng 02/24/2022 until 03/26/2023 UA DIP, URINE (POC) UA DIP, URIN E (POC) Lab Routine Overactive bladder Ordered: 07/28/2022 [facility] Work Phone: Comment on above: Ordered: 07/28/2022 End: 08-27-2026 XR Foot - left AP and Lateral and oblique XR FOOT GENERAL 3V AP/LAT/OBL LEFT Radiology STAT Left foot pain 1 Occurrences starting 07/28/2025 until 08/27/2026 [facility] Work Phone: Comment on above: 1 Occurrences starti ng 07/28/2025 until 08/27/2026 End: 08-27-2026 XR Shoulder - right 2 Views XR SHOULDER [id number] AP/TRUE AP RIGHT Radiology STAT Acute pain of right shoulder 1 Occurrences starting 07/28/2025 until 08/27/2026 [facility] Comment on above: 1 Occurrences starti ng 07/28/2025 until 08/27/2026 End: 03-26-2023 XR SHOULDER GENERAL 3V OR MORE AP/TRUE AP/OTHER LEFT [facility] Work Phone: Comment on above: 1 Occurrences starti ng 02/24/2022 until 03/26/2023 End: 09-30-2023 XR SHOULDER LIMITED 2V AP/TRUE AP LEFT XR SHOULDER LIMITED 2V AP/TRUE AP LEFT Radiology Routine Chronic left shoulder pain 1 Occurrences starting 08/31/2022 until 09/30/2023 [facility] Work Phone: Comment on above: 1 Occurrences starti ng 08/31/2022 until 09/30/2023 [facility] Immunizations Immunization Date Immunization Notes Care Provider Lulu alvarado 01-17-2019 influenza virus vaccine, unspecified formulation Yassine Link MD Work Phone: [facility] 09-24-2012 tetanus toxoid, redu yuri diphtheria toxoid, and acellular pertussis vaccine, adsorbed German Pires DIAMOND FINISHING SUPERVISOR.COUNT TEAM CLERK Work Phone: [facility] Work Phone: Payers Date Payer Category Payer Self-pay [id number] 2024 Unknown [id number] 2022 Unknown [id number] 2020 Medicaid [facility] MED[facility] [id number] 2020-Present [phone] [address] [place] [address] Medicaid [id number] 2020 Medicaid [id number] 1984 Unknown [id number] 1984 Unknown [id number] 1984 Unknown [id number] 1984 Unknown [id number] 1984 Unknown [id number] 1984 Unknown [id number] Unknown [id number] Unknown [id number] Unknown [id number] Unknown [id number] Unknown [id number] Unknown [id number] Unknown [id number] Unknown [id number] Unknown [id number] Unknown [id number] Social History Date Type Detail Facility Start: 09-08-2021 End: 08-23-2025 Tobacco smoking status NHIS Smokes tobacco daily [facility] Work Phone: Start: 10-26-1992 End: 02-20-2025 History of tobacco use Cigarette Smoker [facility] Start: 02-24-2022 End: 12-23-2024 Alcohol intake [...] Start: 1985 Sex Assigned At Female [facility] Start: 11-15-2020 End: 10-05-2022 Exposure to SARS-CoV-2 (event) Not sure [facility] Work Phone: Start: 03-09-2022 End: 11-11-2023 Tobacco smoking status NHIS Unknown if ever smoked [facility] Start: 04-14-2021 Cigarettes [facility] Start: 09-08-2021 End: 10-01-2023 Cigarettes smoked current (pack per day) - Reported 1 [facility] Start: 09-08-2021 End: 02-23-2025 Tobacco use and exposure Smokeless tobacco non-user [facility] Work Phone: Start: 09-26-2022 End: 11-09-2022 History SDOH Alcohol Std Drinks 0 [facility] Start: 11-09-2022 End: 10-01-2023 Social connection and isolation panel [facility] Do you belong to any clubs or organizations such as hinduism groups, unions, fraternal or athletic groups, or school groups? No [facility] Are you now , , , , never or living with a partner? [facility] How often to you hav e a drink containing alcohol? Never [facility] Start: 10-27-2012 How many standard drinks [...] [OSQ] Rather much [facility] (I/We) worried wherogelio er (my/our) food would run out before (I/we) got money to buy more. Often true [facility] In the past 12 month s, was there a time when you were not able to pay the mortgage or rent on time? Yes [facility] Start: 07-08-2021 Gender identity Identifies as female gender (finding) [facility] Start: 07-08-2021 Sexual orientation Heterosexual (bettina solomon) [facility] Start: 10-12-2022 Tobacco smoking status Heavy t obacco smoker (finding) [facility] Sex Assigned At [facility] Do you feel stress - tense, restless, nervous, or anxious, or unable to sleep at night because your mind is troubled all the time - these days [OSQ] Very much [facility] Start: 04-25-2021 End: 05-25-2021 Exposure to SARS-CoV-2 (event) Unable to assess [facility] Are you now , , , , never or living with a partner? [facility] Start: 01-08-2025 End: 07-28-2025 Alcoholic beverage intake Ex-drinker (finding) [facility] Start: 02-04-2025 End: 02-13-2025 Sex Female (finding) [facility] Start: 02-23-2025 Tobacco smoking stat us NHIS Ex-smoker [facility] Start: 10-26-1992 End: 02-20-2025 History of tobacco use Current smoker [facility] NEGATED: Highlighted row [facility] Functional Status Date Assessment Result Facility 01-15-2025 Functional Status Activity Myaosiel duarte Independent [facility] 01-15-2025 Functional Status ID band on, Allergy Band on, Call device within reach, Bed in low position, Wheels locked, Upper/Half-Length side-rails up, Safety level maintained [facility] 01-02-2024 Functional Status Awake, Resting [facility] 06-09-2015 Are you deaf, or do you have serious difficulty hearing No 06/09/2015 4:14 PM EDT Elissa Uribe LPN No [facility] 06-09-2015 Are you blind, or do you have serious difficulty seeing, even when wearing glasses No 06/09/2015 4:14 PM EDT Elissa Uribe LPN No [facility] 06-09-2015 Do you have serious difficulty walking or climbing stairs No 06/09/2015 4:14 PM EDT Elissa Uribe LPN No [facility] 06-09-2015 Do you have difficul ty dressing or bathing No 06/09/2015 4:14 PM EDT Elissa Uribe LPN No [facility] 06-09-2015 Because of a physica l, mental, or emotional condition, do you have difficulty doing errands alone such as visiting a physician's office or shopping No 06/09/2015 4:14 PM EDT Elissa Uribe LPN No [facility] Mental Status Date Assessment Result Facility 01-15-2025 Mental Status Orientation Oriented x 4 [facility] 01-15-2025 Mental Status [facility] 02-11-2024 Cognitive function Level Of Cons ciousness Awake;Alert;Appropriate;Fol lows Commands [facility] Work Phone: 01-02-2024 Mental Status Oriented x 4 [facility] 12-22-2023 Cognitive function Level Of Cons ciousness Awake;Alert;Appropriate [facility] Work Phone: 11-21-2023 Mental Status Orientation Oriented x 4 [facility] 11-19-2023 Cognitive function Drowsy;Sedate d;Responds to vocal stimuli [facility] Work Phone: 11-26-2021 Cognitive function Level Of Cons ciousness Awake;Alert;Appropriate;Fol lows Commands [facility] Work Phone: 06-09-2015 Because of a physica l, mental, or emotional condition, do you have serious difficulty concentrating, remembering, or making decisions No 06/09/2015 4:14 PM EDT Elissa Urieb LPN No [facility] Clinical Notes 12-13-2019 to 08-24-2025 Note Date & Type Note Facility 08-24-2025 Note HNO ID: [id number] Author: GERMAN PIRES APRN.COUNT TEAM CLERK Service: ? Author Type: Nurse Specialist Type: Progress Notes Filed: 08/24/2025 11:11 Note Text: Subjective Patient ID: Anne is a 39 year old female who presents for Shoulder Injury ([facility] ER gave her lidocaine patches and Mobic is not helping. /Scheduled with ortho next week at [facility]/Starting PT 09/08/25.) and Refill Request (of Ativan). [...] worse at night. - Recent visit to [facility]; provided with lidocaine patches. - Taking meloxicam with partial relief; using ice therapy. - Scheduled for an orthopedic appointment next week; MRI pending. Prior history of left shoulder pain, had thoracic outlet syndrome requiring surgery. Treated with 1st supraclavicular rib, neurolysis at [facility] in 2020; states no issues since [...] symptoms which resolved with surgery. German Pires APRN.COUNT TEAM CLERK Medical Decision Making: Problems: Low: Acute, uncomplicated illness or injury Data: Unique test(s) ordered: 1 Risk: Moderate: Drug management Medical Decision Making Level: 3 - Low [facility] 08-23-2025 Discharge summary [facility] 08-23-2025 Discharge summary Note Date/Time August 23, 2025 2:18pm [facility] Medical Records Department [address] [place] [address] Emergency Department Summary 08/23/25 MR#: [id number] Acct: [id number] Name: ANNE CHUNG Rep #:[id number] : 1985 39 From: Roberto vega DO PCP: Dr. Yassine Link MD Status:R ER [...] Psych: Cooperative, appropriate mood and affect PFSH PFSH Medical History PTSD (post-traumatic stress disorder) Left [...] (From Tessalon Allergy Rash Verified 08/23/25 13:11 Perlember) diazepam (From Valium) Allergy Hives Verified 08/23/25 [...] Yes additional social history: Boyfriend-Sha- Works at [employer] Patient works at [employer] EXAM Physical Exam Const Vital Signs: 08/23/25 [...] [Primary Care Provider, Internal Medicine] Print Language: East Timorese What to do if you have Problems For any increased pain, shortness of breath, bleeding, nausea or vomiting, chestpain, or any unexpected problems, contact your Primary Care Provider. Call [facility] ([phone]) or report to the closest Emergency Room. Call 911 if necessary. 08/23/25 1418 <Electronically signed by Roberto Murillo DO> Cosigner Signature (if applicable): CC: Dr. Yassine Link MD ~ Signed [facility] Work Phone: 1(402) 279-847209-08-2025 Telephone encounter Note* Telephone Encounter - German Pires APRN.CNS - 08/03/2025 4:44 PM EDT Message addressed in a telephone encounter [facility]09-08-2025 Miscellaneous Notes* Telephone Encounter - German Pires APRN.CNS - 08/03/2025 4:44 PM EDT Message addressed in a telephone encounter documented in [facility] encounterWay[facility] History of Present illness Narrative* Jazlyn [...] PATIENT PRESENTS WITH AN IMPLANTABLE OR ATTACHED ELEVATOR INSTALLER APPRENTICE: No RADIOLOGY DEPARTMENT: General X-ray: Exam(s) Completed: Upper Extremity X- Ray(s): Shoulder, AP / TRUE AP right PERIPHERAL IV DATA: Not applicable SIGNED BY: MARY JANE Swartz) August 03, 2025 9:41 AM documented in this encounterWayne Hospital09-08-2025 NoteHNO ID: [id number] Author: JAZLYN MENDEZ RT(R) Service: ? Author [...] PATIENT PRESENTS WITH AN IMPLANTABLE OR ATTACHED ELEVATOR INSTALLER APPRENTICE: No RADIOLOGY DEPARTMENT: General X-ray: Exam(s) Completed: Upper Extremity X-Ray(s): Shoulder, AP / TRUE AP right PERIPHERAL IV DATA: Not applicable SIGNED BY: MARY JANE Swartz) August 03, 2025 9:41 [facility]09-02-2025 Instructions* Patient Instructions* German Pires APRN.COUNT TEAM CLERK - 07/28/2025 10:00 AM EDT - Continue [...] lab work today at documented in this encounterWayne Hospital09-02-2025 History of Present illness Narrative* German [...] radiating down the arm. - Described as "sharp" pain, exacerbated by any arm movement. - [...] outlet [facility] states no issues since surgery. Right Foot Pain: - Acute onset after landing awkwardly during a front flip. - Described as a "sharp" pain on the dorsum of the foot, exacerbated by plantar flexion. - No visible bruising, swelling, or palpable lumps. - Mild discomfort when ambulating. - Typically wears supportive footwear. Weight Loss: - Unintentional weight loss noted. - Anne reports hair loss, described as "clumps" falling out when brushing. - Family history [...] Level: 3 - Low documented in this encounterWayne Hospital09-02-2025 NoteHNO ID: [id number] Author: GERMAN PIRES APRN.SHANNEN Service: ? Author [...] radiating down the arm. - Described as "sharp" pain, exacerbated by any arm movement. 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 Right Foot Pain: - Acute onset after landing awkwardly during a front flip. - Described as a "sharp" pain on the dorsum of the foot, exacerbated by plantar flexion. - No visible bruising, swelling, or palpable lumps. - Mild discomfort when ambulating. - Typically wears supportive footwear. Weight Loss: - Unintentional weight loss noted. - Anne reports hair loss, described as "clumps" falling out when brushing. - Family history [...] management Medical Decision Making [facility]: [facility] Telephone encounter Note* Telephone Encounter - German Pires APRN.CNS - 07/14/2025 4:49 PM EDT Recheck regarding hot flashes. [facility]08-19-2025 Miscellaneous Notes* Telephone Encounter - German Pires APRN.CNS - 07/14/2025 4:49 PM EDT Recheck regarding hot flashes. documented in this encounterWayne Hospital08-08-2025 NoteHNO ID: [id number] Author: GERMAN PIRES APRN.CNS Service: ? Author [...] 6 mo follow up MD German Holly APRN.SHANNEN Medical Decision Making: Medical Decision Making Level: 1 - N/[facility]06-04-2025 Telephone encounter Note* Telephone Encounter - Leticia Persaud LPN - 04/29/2025 9:10 AM EDT Below left on identified vm. Leticia Persaud LPN [facility]06-04-2025 Miscellaneous Notes* Telephone Encounter - Leticia [...] advise, Fabiana Mcmahan RN documented in this encounterWayne Hospital06-02-2025 Telephone encounter Note * Telephone Encounter - Leticia Persaud LPN - 04/27/2025 2:31 PM EDT Getting a lot of static on line, will try again. Leticia Persaud LPN [facility]06-02-2025 Telephone encounter Note* Telephone Encounter - German Pires APRN.CNS - 04/27/2025 12:31 PM EDT I sent in a prescription for meloxicam abd hydrocodone acetaminophen for breakthrough pain. Continue with topical treatments as discussed at her visit. [facility]06-02-2025 Telephone encounter Note* Telephone Encounter - [...] Please review and advise, Fabiana Mcmahan RN [facility]05-30-2025 History of Present illness Narrative* German Pires APRN.CNS - 04/24/2025 3:40 PM EDT Subjective Patient [...] partial thickness wound inner aspect right ankle ~1" diam, remnants of blister present, flat, some [...] Level: 3 - Low documented in this encounterWayne Hospital05-30-2025 NoteHNO ID: [id number] Author: GERMAN PIRES APRN.COUNT TEAM CLERK Service: ? Author Type: Nurse Specialist [...] partial thickness wound inner aspect right ankle ~1" diam, remnants of blister present, flat, some [...] management Medical Decision Making Level: 3 - [facility] Telephone encounter Note* Telephone Encounter - Em Khanna LPN - 03/17/2025 4:10 PM EDT Letter faxed to number provided [facility]04-22-2025 Miscellaneous Notes* Telephone Encounter - Em Khanna LPN - 03/17/2025 4:10 PM EDT Letter faxed to number provided * Telephone Encounter - German Pires APRN.CNS - 03/17/2025 3:56 PM EDT Please see [employer] message about returning oxygen. documented in this encounterWayne Hospital04-22-2025 Telephone encounter Note * Telephone Encounter - German Pires APRN.CNS - 03/17/2025 3:56 PM EDT Please see [employer] message about returning oxygen. [facility]04-08-2025 Telephone encounter Note* Telephone Encounter - Virgilio Ignacio - 03/03/2025 10:54 AM EDT Patient cancelling her up coming EGD as she was in the hospital and on home o2. Will call and reschedule once she gets cleared for pulmonary. Virgilio Ignacio [facility]04-08-2025 Miscellaneous Notes* Telephone Encounter - Virgilio Ignacio - 03/03/2025 10:54 AM EDT Patient cancelling her up coming EGD as she was in the hospital and on home o2. Will call and reschedule once she gets cleared for pulmonary. Virgilio Ignacio documented in this encounterWayne Hospital04-07-2025 Telephone encounter Note * Telephone Encounter [...] Please advise. Thank you. Leticia Persaud LPN. [facility]04-07-2025 Miscellaneous Notes* Telephone Encounter - Leticia [...] you. Leticia Persaud LPN. documented in this encounterWayne Hospital04-07-2025 Instructions* Patient Instructions* German Pires APRN.CNS [...] at the designated hospital. documented in this encounterWayne Hospital04-07-2025 History of Present illness Narrative* German Pires APRN.CNS - 03/02/2025 8:00 AM EDT Subjective Patient ID: Anne is a 39 year old female who presents for Recheck (pneumonia states is no longer needing the O2). HPI return to clinic today for a recheck. HIP excerpted from previous visit:Presents for a hospital follow up visit. Review of records show she presented to [facility] ER with report of left flank [...] and scanned documents. Pneumonia: - Hospitalized at [facility] for 3-4 days due to severe [...] PANTOPRAZOLE 40 MG TABLET,DELAYED RELEASE German Pires APRN.COUNT TEAM CLERK Medical Decision Making: Problems: Low: Acute, uncomplicated illness or injury Data: Unique test result(s) reviewed: 1 Risk: Moderate: Drug management Medical Decision Making Level: 3 - Low documented in this encounterWayne Hospital04-07-2025 NoteHNO ID: [id number] Author: GERMAN PIRES APRN.COUNT TEAM CLERK Service: ? Author Type: Nurse Specialist Type: Progress Notes Filed: 03/02/2025 08:44 Note Text: Subjective Patient ID: Anne is a 39 year old female who presents for Recheck (pneumonia states is no longer needing the O2). HPI return to clinic today for a recheck. HIP excerpted from previous visit:Presents for a hospital follow up visit. Review of records show she presented to [facility] ER with report of left flank [...] and scanned documents. Pneumonia: - Hospitalized at [facility] for 3-4 days due to severe [...] management Medical Decision Making Level: 3 - [facility] Telephone encounter Note* Telephone Encounter - Em Khanna LPN - 02/26/2025 4:18 PM EDT No answer. Left providers message and asked patient to call office and ask to speak to a nurse withany questions or concerns. [facility]04-03-2025 Miscellaneous Notes* Telephone Encounter - Em [...] worse. Leticia Persaud LPN documented in this encounterWayne Hospital04-03-2025 Telephone encounter Note * Telephone Encounter - German Pires APRN.SHANNEN - 02/26/2025 3:52 PM EDT If she is feeling worse instead of improved or having severe symptoms recommend an ER visit. Refills sent. [facility]04-03-2025 Telephone encounter Note* Telephone Encounter - [...] to understand d/t laryngitis. Diana Blackmon RN [facility]04-03-2025 Telephone encounter Note* Telephone Encounter - Leticia Persaud LPN - 02/26/2025 11:34 AM EDT Please get update on Patient, reports s/s are getting worse. Leticia Persaud LPN [facility]04-03-2025 Telephone encounter Note* Telephone Encounter - Myesha Kauffman LPN - 02/26/2025 9:02 AM EDT Patient calling asking to have referral faxed to [facility] at [phone]. Printed office notes, chest xray results, face sheet, consult faxed as requested. [facility]04-03-2025 Miscellaneous Notes* Telephone Encounter - Myesha Kauffman LPN - 02/26/2025 9:02 AM EDT Patient calling asking to have referral faxed to [facility] at [phone]. Printed office notes, chest xray results, face sheet, consult faxed as requested. documented in this encounterWayne Hospital03-31-2025 Progress note* Result Encounter Note - German Pires APRN.CNS - 02/23/2025 3:41 PM EDT Chest x-ray shows bilateral pulmonary infiltrates consistent with pneumonia or aspiration. Recommend recheck in 1 week. [facility]03-31-2025 Miscellaneous Notes* Result Encounter Note - German Pires APRN.CNS - 02/23/2025 3:41 PM EDT Chest x-ray shows bilateral pulmonary infiltrates consistent with pneumonia or aspiration. Recommend recheck in 1 week. documented in this encounterWayne Hospital03-31-2025 History of Present illness Narrative* Marianne Crowe RT(R) - 02/23/2025 10:40 AM EDT Radiology Service [...] PATIENT PRESENTS WITH AN IMPLANTABLE OR ATTACHED ELEVATOR INSTALLER APPRENTICE: No RADIOLOGY DEPARTMENT: General X-ray: Exam(s) Completed: Chest X-Ray PERIPHERAL IV DATA: Not applicable SIGNED BY: RT Davy(R) February 23, 2025 10:41 AM documented in this encounterWayne Hospital03-31-2025 NoteHNO ID: [id number] Author: MARIANNE CROWE RT(R) Service: ? Author Type: Storage Management Consultant Type: Progress Notes Filed: 02/23/2025 10:50 Note [...] PATIENT PRESENTS WITH AN IMPLANTABLE OR ATTACHED ELEVATOR INSTALLER APPRENTICE: No RADIOLOGY DEPARTMENT: General X-ray: Exam(s) Completed: Chest X-Ray PERIPHERAL IV DATA: Not applicable SIGNED BY: RT Davy(R) February 23, 2025 10:41 [facility]03-31-2025 Instructions* Patient Instructions* German Pires APRN.CNS - [...] X-ray as scheduled. - Follow up with [facility] as scheduled. - Return for a follow-up appointment in one week. documented in this encounterWayne Hospital03-31-2025 History of Present illness Narrative* German Pires APRN.CNS - 02/23/2025 9:40 AM EDT Subjective Patient ID: nAne is a 39 year old female who presents for Hospital F/U. HPI Presents for a hospital follow up visit. Review of records show she presented to [facility] ER with report of left flank [...] and scanned documents. Pneumonia: - Hospitalized at [facility] for 3-4 days due to severe [...] Level: 4 - Moderate documented in this encounterWayne Hospital03-31-2025 NoteHNO ID: [id number] Author: GERMAN PIRES APRN.CNS Service: ? Author Type: Nurse Specialist Type: Progress Notes Filed: 02/23/2025 10:39 Note Text: Subjective Patient ID: Anne is a 39 year old female who presents for Hospital F/U. HPI Presents for a hospital follow up visit. Review of records show she presented to [facility] ER with report of left flank [...] and scanned documents. Pneumonia: - Hospitalized at [facility] for 3-4 days due to severe [...] management Medical Decision Making Level: 4 - [facility] Note. MICRO - Microbiology PROCEDURE: Legionella [...] Locations *1: This test was performed at: [address], [facility]03-26-2025 Note. MICRO - Microbiology PROCEDURE: Streptococcus Pneumoniae [...] Locations *1: This test was performed at: [address], [facility]03-24-2025 Instructions* Patient Instructions* German Pires APRN.COUNT TEAM CLERK - 02/16/2025 7:29 AM EDT - Start taking Tamiflu as prescribed for influenza A. - Discontinue current cough medicine and switch to Delsym, available over the counter. - A Kenalog shot was administered in the office to help with your cough and rash. - A prescription for a nebulizer and compressor has been sent to [facility]. - Push fluids to stay hydrated. - If symptoms do not improve in a couple of days, contact the office; an antibiotic may be prescribed. - Excused from work until Sunday to allow time for recovery. documented in this encounterWayne Hospital03-24-2025 NoteHNO ID: [id number] Author: GERMAN PIRES APRN.SHANNEN Service: ? Author Type: Nurse Specialist Type: Progress Notes Filed: 02/16/2025 07:43 Note Text: Subjective ?Quick Links Last Note in Specialty Snapshot Edit RFV/CC Patient ID: Anne is a 39 year old female who presents for Hospital F/U. HPI Presents for emergency department follow-up visit. She was seen at [facility] February 13, 2025 with cough shortness of [...] tenderness or frontal sinus tenderness. Mouth/Throat: Lips: Jay. Mouth: Mucous membranes are moist. Pharynx: Oropharynx [...] CAPSULE - PREDNISONE 10 (more content not included)...[facility] 02-16-2025 History of Present illness Narrative* German Pires, EDU.COUNT TEAM CLERK - 02/16/2025 7:01 AM EDT Subjective ?Quick Links Last Note in Specialty Snapshot Edit RFV/CC Patient ID: Anne is a 39 year old female who presents for Hospital F/U. HPI Presents for emergency department follow-up visit. She was seen at [facility] 2024 with cough shortness of breath body [...] tenderness or frontal sinus tenderness. Mouth/Throat: Lips: Jay. Mouth: Mucous membranes are moist. Pharynx: Oropharynx [...] Level: 4 - Moderate documented in this encounterWayne Hospital03-21-2025 Radiology Diagnostic study note [facility] [address] [place] [address] [id number] Chest PA and Lateral MR#: [id number] Acct: [id number] Name: ANNE CHUNG Rep #: [id number] : 1985 F 39 From: Jody Dominguez MD PCP: Dr. Yassine Link MD Status: R EG ER Study:Chest PA and Lateral Date of Exam: 02/13/25 Exam# [id number] Ordering Dr: Jamarcus Persaud DO PROCEDURE: CHEST [...] and Lateral IMPRESSION: NEGATIVE CHEST Reading Location: [facility] CC: Dr. Jamarcus Persaud DO; Dr. Yassine Link MD ~ Radio Operator Ground: Signed [facility]03-21-2025 Instructions* Patient Instructions* Yassine Link MD - 02/13/2025 2:28 PM EDT Go to ER for assessment and IV fluids. documented in this encounterWayne Hospital03-21-2025 NoteHNO ID: [id number] Author: YASSINE LINK MD Service: ? Author Type: Physician Type: Progress Notes Filed: 02/13/2025 14:42 Note Text: This note was created using [employer]. Subjective Anne Chung is a 39 year [...] gave handoff to ER provider. Yassine Link [facility]03-21-2025 History of Present illness Narrative* Yassine Link [...] provider. Yassine Link MD documented in this encounterWayne Hospital03-11-2025 NoteHNO ID: [id number] Author: MALLORY MARRERO APRN.YORDY Service: ? Author Type: Nurse Practitioner Type: Progress Notes Filed: 02/03/2025 11:39 Note Text: New [facility] placedOhio[facility]-2025 History of Present illness Narrative* Mallory Marrero APRN.CNP - 02/03/2025 11:39 AM EDT New EGD order placed documented in this [facility]Way[facility]2025 NoteHNO ID: [id number] Author: MAYDA MADRIGAL MD Service: ? 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 Health Maintenance Hepatitis B Vaccine(1 of [...] pain. Going for the EGD tomorrow in [place]. 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 Health Maintenance Hepatitis B Vaccine(1 of [...] pain. Going for the EGD tomorrow in [place]. 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 documented in this encounterWayne Hospital03-04-2025 NoteHNO ID: [id number] Author: YASSINE LINK MD Service: ? Author Type: Physician Type: Progress Notes Filed: 01/27/2025 07:26 Note Text: This note was created using Mustard Tree Instrumentsriter. Subjective Anne Chung is a 39 year [...] - PREDNISONE 20 MG TABLET Yassine Link [facility]03-04-2025 History of Present illness Narrative* Yassine Link MD - 01/27/2025 7:16 AM EST This note was created using NoteWriter. Subjective Anne Chnug is a 39 year old female who [...] TABLET Yassine Link MD documented in this encounterWayne Hospital03-03-2025 Instructions* Patient Instructions* Yassine Link MD [...] days, such as taking additions steps for filter screen cleaner air, hygiene, masks, physical distancing, and or testing when you will be around other people indoors. For more information go to https://www.cdc.gov/respiratory-viruses/prevention/index.html documented in this encounterWayne Hospital02-27-2025 History of Present illness Narrative* Reef Rhoda Huang RT(R) - 01/22/2025 9:20 AM EST Radiology [...] PATIENT PRESENTS WITH AN IMPLANTABLE OR ATTACHED ELEVATOR INSTALLER APPRENTICE: No ALLERGIES: Reviewed and unchanged CONTRAST ALLERGY: [...] RADIOLOGY DEPARTMENT: CT; Exam(s) Completed: Abdomen/Pelvis SIGNATURE: MARY JANE Mccallum) PATIENT NAME: Anne Chung DATE: January 22, 2025 TIME: 3:58 PM documented in this encounterWayne Hospital02-27-2025 NoteHNO ID: [id number] Author: RHODA CHASE RT(R) Service: ? Author Type: Storage Management Consultant Type: Progress Notes Filed: 01/22/2025 15:58 Note [...] PATIENT PRESENTS WITH AN IMPLANTABLE OR ATTACHED ELEVATOR INSTALLER APPRENTICE: No ALLERGIES: Reviewed and unchanged CONTRAST ALLERGY: [...] Chung DATE: January 22, 2025 TIME: 3:58 [facility]02-25-2025 NoteHNO ID: [id number] Author: MAYDA MADRIGAL MD Service: ? Author Type: Physician Type: Progress Notes Filed: 01/20/2025 16:08 Note Text: Reason for Visit Anne Chung is a 39 year oldfemale who presents here Patient presents with: Abdominal Pain: Stomach pain for 2 months upper abdomen, [facility] 01/15/25 Health Maintenance Hepatitis B Vaccine(1 [...] hr patch PARoxetine (PAXIL) (more content not included)...[facility] 01-20-2025 History of Present illness Narrative* Mayda Madrigal MD - 01/20/2025 2:06 PM EST Reason for Visit Anne Chung is a 39 year oldfemale who presents here Patient presents with: Abdominal Pain: Stomach pain for 2 months upper abdomen, [facility] 01/15/25 Health Maintenance Hepatitis B Vaccine(1 [...] CONTRAST (RADIOLOGY PROCEDURE) - NOT ON JAN 2. Peritonitis (HCC) - ICD9: 567.9, ICD10: [...] any unintended typographical errors. documented in this encounterWayne Hospital02-25-2025 Telephone encounter Note * Telephone Encounter - Fabiana Mcmahan RN - 01/20/2025 10:19 AM EST Patient calls and states that she continues to have severe abdominal pain. Patient states that she was seen at [facility] ER and was prescribed [place] for the pain. Patient reports that [place] isnot touching the pain. Patient is asking if provider can prescribe something for the pain. Advised patient that if she has that much pain then she should go back to ER to be evaluated again. Patient voiced understanding. Fabiana Mcmahan RN [facility]02-25-[facility] Miscellaneous Notes* Telephone Encounter - Fabiana Mcmahan RN - 01/20/2025 10:19 AM EST Patient calls and states that she continues to have severe abdominal pain. Patient states that she was seen at [facility] ER and was prescribed [place] for the pain. Patient reports that [place] isnot touching the pain. Patient is asking if provider can prescribe something for the pain. Advised patient that if she has that much pain then she should go back to ER to be evaluated again. Patient voiced understanding. Fabiana Mcmahan RN documented in this encounterWayne Hospital02-20-2025 Hospital Discharge instructions Patient Education 01/15/2025 [...] of blood present in vomit or stool [id number] [employer]. [address] [place] [address]. All rights reserved. This information is not intended as a substitute for professional medical care. Always follow yourhealthcare professional's instructions. Follow Up Care 01/15/2025 14:55:55 With:YASSINE LINK MD Address: [address] [place] [address]- When:2-4 days [facility] 02-20-2025 Note Discharge Instructions Thank you for allowing [facility] to assist you with your healthcare needs. The following is importantdischarge information regarding your hospital visit. Diagnosis from Today's Visit Abdominal pain What to Do Next Instructions from Your Care Team No qualifying data available. Post Acute Orders No qualifying data available. You Need to Schedule the Following Appointments Follow Up with YASSINE LINK MD When:Within 2-4 days Where:[address] [place] [address]- Allergies Bee Stings swelling Tessalon Perles rash amLODIPine hives morphine hives penicillin hives Medications Please ask your primary doctor or pharmacist before taking any other medication not listed, including over the counter drugs, herbal medications, vitamins and or supplements as they may interact withyour home medications. What How Much When Why Instructions Last Dose New acetaminophen-hydrocodone ([place] 325- 5 mg oral tablet) 1 tab(s) [...] may report side effects to FDA at 5-796-QEI-1728. What other drugs will affect ondansetron? Ondansetron can cause a serious heart problem. Your risk may be higher if you also use certain other medicines for infections, asthma, heart problems, high blood pressure, depression, mental illness,cancer, malaria, or HIV. Many drugs can affect ondansetron. This includes prescription and wrgd-afn-eythuqr medicines, vitamins, and herbal products. Not all [...] to ensure that the information provided by [employer]. ('[employer]') is accurate, up-to-date, and complete, but no guarantee is made to that effect. Drug information contained herein may be time sensitive. [employer] information has been compiled for use by healthcare practitioners and consumers in the [place] and therefore [employer] does not warrant that uses outside of the [place] are appropriate, unless specifically indicated otherwise. [employer]'s drug information does not endorse drugs, diagnose patients or recommend therapy. [employer]'s drug information isan informational resource designed to [...] effective or appropriate for any given patient. [facility] does not assume any responsibility for any aspect of healthcare administered with the aid of information [facility] provides. The information contained herein is not intended to cover all possible uses, directions, precautions, warnings, drug interactions, allergic reactions, or adverse effects. If you have questions about the drugs you are taking, check with your doctor, nurse or pharmacist. Copyright 0206-9369 [facility] [employer]. Version: 17.. Revision Date: 08/19/2024. acetaminophen and hydrocodone (a SEET a MIN oh fen and kevin droe KOE done) Verdrocet What is the most important [...] may report side effects to FDA at 6-925-ZJI-1902. What other drugs will affect acetaminophen and [...] affect acetaminophen and hydrocodone, including prescription and wrep-oha-hsalssm medicines, vitamins, and herbal products. Not all [...] to ensure that the information provided by [employer]. ('[employer]') is accurate, up-to-date, and complete, but no guarantee is made to that effect. Drug information contained herein may be time sensitive. [employer] information has been compiled for use by healthcare practitioners and consumers in the [place] and therefore [employer] does not warrant that uses outside of the [place] are appropriate, unless specifically indicated otherwise. [employer] drug information does not endorse drugs, diagnose patients or recommend therapy. [employer] drug information isan informational resource designed to [...] effective or appropriate for any given patient. [facility] does not assume any responsibility for any aspect of healthcare administered with the aid of information [facility] provides. The information contained herein is not intended to cover all possible uses, directions, precautions, warnings, drug interactions, allergic reactions, or adverse effects. If you have questions about the drugs you are taking, check with your doctor, nurse or pharmacist. Copyright 4859-6941 [facility] [employer]. Version: 19.02. Revision Date: 03/04/2024. Education Materials Gastritis or [...] of blood present in vomit or stool 2096-7585 [employer]. [address] [place] [address]. All rights reserved. This information is not intended as a substitute for professional medical care. Always follow yourhealthcare professional's instructions. Additional Information VACCINATE! IT SAVES LIVES! Members of the community who have not yet received the COVID-19 vaccine and would like to receive it can visit one of [facility] vaccine clinics. There are many vaccine clinic locations within the [facility]. For locations and available times, please visit www.gettheshot.coronavirus.[place].gov/. It is important to note that some COVID mobile vaccine clinics are held outdoors and may be canceled in rainy or stormy conditions. To learn more about pediatric vaccinations (ages 5-11), we invite you to visit the [facility] webpage. https://www.[facility].org/pages/5447-Iihyv-Reqaghzssjj-Opopwtktnm-Pwlay-Ioc stions.htmlTo learn more about the COVID-19 vaccine, we invite you to visit the CDC website for a list of frequently asked questions. https://www.cdc.gov/coronavirus/2019-ncov/vaccines/faq.html [facility] Patient Portal Access Instructions: Stay connected with your healthcare team and access your personal medical information anytime with the [facility] Patient Portal. If you would like a full copy of your medical records please contact the [facility] Medical Records Department Sunday through Sunday between 8a.m. and 4:30p.m. Please follow the directions below to access the portal: 1.Access the email account you provided upon registration to the [facility].2.Look for an invitation email from [facility].3.Open the email and access the invitation link: Accept Invitation to [facility]4.Fill in the required hankins to create your account. Sign into www.[email or web address] with your username and password that you [...] you will allow to register on the [facility] Patient Portal for access to your information. You can also access the [facility] Patient Portal on the [employer] phillip. Simply click on "Health Records" under "HealthData" and then click on the [employer] logo. HOW TO SAFELY DISPOSE OF PRESCRIPTION [...] Call your local pharmacy or go to http://bit.MIGSIF/4R1Qe9t to find one close to you.3.Make use of household items: Use cat litter or old coffee grounds to dispose medications if other options arenot available. Mix your drugs with these household products, seal them in an airtight container andthrow it into the garbage. Call [facility]: [phone] to be sure your drugs can be [...] aware that I should contact my doctor. 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 Telephone encounter Note* Telephone Encounter - Evelin Zapata - 01/15/2025 2:15 PM EST Patient is calling to let provider know [facility] and she is headed to [facility]. [facility]02-20-[facility] Miscellaneous Notes* Telephone Encounter - Arin MaynardMitchEvelin - 01/15/2025 2:15 PM EST Patient is calling to let provider know [facility] and she is headed to [place]. * Telephone Encounter - Aliyah Trimble RN - 01/15/2025 12:45 PM EST Protocol recommends Pt go to the ER now. Pt states she has someone that can drive her and [facility] going [facility]. Care plan reviewed with patient. Patient voices [...] : No had a hyster. Protocols used: [id number] documented in this encounterWayne Hospital02-20-2025 Telephone encounter Note * Telephone Encounter - Aliyah Trimble RN - 01/15/2025 12:45 PM EST Protocol recommends Pt go to the ER now. Pt states she has someone that can drive her and she is going to go [facility]. Care plan reviewed with patient. Patient voices [...] : No had a hyster. Protocols used: [id number]-MM [facility]02-18-[facility]25 NotePatient Outreach (INTMWS) ANNE CHUNG ([id number]) 1985 F Date Time Provider Department 01/13/25 [...] Date Reviewed: 01/08/2025 Reviewed by: Mallory Marrero APRN.RACING CAR DRIVER - Fully Assessed Visit Diagnosis:Encounter for screening mammogram for breast cancer [Z12.31] Order(s):[facility] SCREENING W YUSEF [3660110] Order #: [id number] FUTURE Prescriptions as of 02/13/2025 - oxycodone [...] medical treatment [Z91.199] 03/12/2023 Encounter Status:Closed by [employer] BeautyRACHANAUSEMahogany on 02/13/25[facility] 01-09-2025 Telephone encounter Note* Telephone Encounter - Chanda Boyle LPN - 01/09/2025 4:53 PM EST This doesn't say what to do with the letter. I sent it to her via my chart. It is at this desk too. [facility]02-14-[facility] Miscellaneous Notes* Telephone Encounter - Chanda Boyle LPN - 01/09/2025 4:53 PM EST This doesn't say what to do with the letter. I sent it to her via my chart. It is at this desk too. * Telephone Encounter - Yassine Link MD - 01/09/2025 4:27 PM EST Letter printed. documented in this encounterWayne Hospital02-14-2025 Telephone encounter Note * Telephone Encounter - Yassine Link MD - 01/09/2025 4:27 PM EST Letter printed. [facility]02-13-[facility] Telephone encounter Note* Telephone Encounter - Ignacio Virgilio - 01/08/2025 11:44 AM EST offered patient EGD in [place] 01-09-2025 patient declined. patient was given the Endo # ([phone]) to call and see who can get her scheduled the soonest. [facility]02-13-2025 Miscellaneous Notes* Telephone Encounter - Virgilio Ignacio - 01/08/2025 11:44 AM EST offered patient EGD in [place] 01-09-2025 patient declined. patient was given the Endo # ([phone]) to call and see who can get her scheduled the soonest. documented in this encounterWayne Hospital02-13-2025 NoteHNO ID: [id number] Author: RHODA PERALTA LPN Service: ? Author [...] patient's last Mammogram screening? Has done at [facility] and is uncertain when last done but validates she is over due. Last Colonoscopy: [facility] History of Present illness Narrative* Rhoda [...] patient's last Mammogram screening? Has done at [facility] and is uncertain when last done but validates she is over due. Last Colonoscopy: None Rhoda Peralta LPN * Mallory Marrero APRN.RACING CAR DRIVER - 01/08/2025 11:00 AM EST HISTORY AND PHYSICAL Anne Chung : 1985 REFERRING PHYSICIAN: [facility] [id number] CHIEF COMPLAINT: Patient presents with: Consult: GERD [...] colonoscopy was 10/[address] Escalona at [facility]. Sedation: MAC EGD Impression: - Normal [...] kg (147 lb), last menstrual period 05/16/2015, IsT942%. Body mass index is 28.71 kg/m . [...] and updated as necessary. Mallory Marrero APRN.CNP documented in this encounterWayne Hospital02-13-2025 NoteHNO ID: [id number] Author: MALLORY MARRERO APRN.CNP Service: ? Author Type: Nurse Practitioner Type: Progress Notes Filed: 01/08/2025 13:34 Note Text: HISTORY AND PHYSICAL Anne Chung : 1985 REFERRING PHYSICIAN: German Pires [address] [facility] [address] CHIEF COMPLAINT: Patient presents with: Consult: GERD [...] colonoscopy was 10/[address] Escalona at [facility]. Sedation: MAC EGD Impression: - Normal [...] Stroke Paternal Grandmother Diabetes (more content not included)...[facility]01-31-2025 Telephone encounter Note* Telephone Encounter - German Pires APRN.CNS - 12/26/2024 4:10 PM EST Increase omeprazole from once daily to twice daily. Continue with sucralfate. Make general surgery appointment for EGD and colonoscopy and schedule follow-up visit with gastroenterology. [facility]01-31-2025 Miscellaneous Notes* Telephone Encounter - German Pires APRN.CNS - 12/26/2024 4:10 PM EST Increase omeprazole from once daily to twice daily. Continue with sucralfate. Make general surgery appointment for EGD and colonoscopy and schedule follow-up visit with gastroenterology. documented in this encounterWayne Hospital01-28-2025 History of Present illness Narrative* German [...] PCP: Yassine Link MD Presents today regarding "appetite, rapid weight loss,pain in upper stomach" per Mychart scheduling. Today reports she is from her , has a lot of stress, wonders if she might have anulcer. She reports remote history of ulcer. CC EGD 2010 and 2015 did not demonstrate this. She reports COAGULANT DIPPER discontinue paroxetine which she was using for hot flashes. Currently on estradiol transdermal patch. 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 Taking ibuprofen and acetominophen for abdominal pain. [...] reports ports seeing counselor at [facility]. Review of Systems Gastrointestinal: Positive [...] estrogen and testosterone patches from her E COAGULANT DIPPER, paroxetine was discontinued 4. Epigastric pain - [...] Level: 4 - Moderate documented in this encounterWayne Hospital01-28-2025 NoteHNO ID: [id number] Author: GERMAN PIRES APRN.CNS Service: ? Author [...] PCP: Yassine Link MD Presents today regarding "appetite, rapid weight loss,pain in upper stomach" per Mychart scheduling. Today reports she is from her , has a lot of stress, wonders if she might have an ulcer. She reports remote history of ulcer. CC EGD 2010 and 2016 did not demonstrate this. She reports COAGULANT DIPPER discontinue paroxetine which she was using for hot flashes. Currently on estradiol transdermal patch. 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 Taking ibuprofen and acetominophen for abdominal pain. [...] reports ports seeing counselor at [facility]. Review of Systems Gastrointestinal: Positive [...] Hot flashes - ICD9: (more content not included)...[facility] 12-15-2024 Evaluation + Plan note Future Scheduled Tests Radiology* MA Mammo Screening Bilateral w/ Yusef 12/15/24 * MA Mammo Screening Bilateral w/ Yusef 12/15/24 * MA Mammo Screening Bilateral w/ Yusef 12/15/24 [facility] 11-25-2024 NoteHNO ID: [id number] Author: YASSINE LINK MD Service: ? Author Type: Physician Type: Progress Notes Filed: 10/21/2024 08:30 Note Text: This note was created using NoteWriter. Subjective Patient presents with: UTI Anne Chung is a 38 year old female, concerned about bladder or kidney infection. She started having dysuria, frequency, urgency 5 days ago with low back pain. She was hydrating well and denied recent febrile illness. She had no fever, chills, or sweats. She denied vaginal discharge. She was scheduled to see her jd edwards next week (Dr. Cunningham). Review of Systems [...] culture is not consistent, she will see jd edwards as scheduled. Hydration stressed. We agreed to [...] - PHENAZOPYRIDINE 200 MG TABLET Yassine Link [facility]11-25-2024 History of Present illness Narrative* Yassine Link MD - 10/20/2024 7:55 PM EST This note was created using Mustard Tree Instrumentsriter. Subjective Patient presents with: UTI Anne Chung is a 38 year old female, concerned about bladder or kidney infection. She started having dysuria, frequency, urgency 5 days ago with low back pain. She was hydrating well and denied recent febrile illness. She had no fever, chills, or sweats. She denied vaginal discharge. She was scheduled to see her jd edwards next week (Dr. Cunningham). Review of Systems [...] culture is not consistent, she will see jd edwards as scheduled. Hydration stressed. We agreed to [...] TABLET Yassine Link MD documented in this encounterWayne Hospital11-15-2024 Telephone encounter Note * Telephone Encounter - Levy Luu MA - 10/10/2024 3:34 PM EST Notified via OLED-T. [facility]11-15-2024 Miscellaneous Notes* Telephone Encounter - Levy Luu MA - 10/10/2024 3:34 PM EST Notified via OLED-T. * Telephone Encounter - Beatrice Watters APRN.CNP [...] 10, 2024 10:24 AM documented in this encounterWayne Hospital11-15-2024 Telephone encounter Note * Telephone Encounter - Beatrice Watters APRN.CNP - 10/10/2024 2:34 PM EST Due for routine follow-up Beatrice Watters APRN.CNP [facility]11-15-2024 Telephone encounter Note* Telephone Encounter - [...] Luu MA October 10, 2024 10:24 AM [facility]08-29-[facility] Telephone encounter Note* Telephone Encounter - [...] Pisano LPN July 24, 2024 9:25 AM [facility]08-29-2024 Miscellaneous Notes* Telephone Encounter - Risa [...] 24, 2024 9:25 AM documented in this encounterWayne Hospital07-15-2024 Instructions* Patient Instructions* German Pires APRN.COUNT TEAM CLERK - 06/09/2024 11:41 AM EDT Okay to continue with ibuprofen as needed for neck and wrist pain. Ice the affected areas 15 to 20 minutes several times a day to help with pain. Please do make an appointment with your COAGULANT DIPPER for hot flashes. Try paroxetine at bedtime to see ifthis helps with hot flashes. Take omeprazole and ondansetron for nausea Take medications with food. documented in this encounterWayne Hospital07-15-2024 History of Present illness Narrative* German Pires APRN.CNS - 06/09/2024 11:20 AM EDT SUBJECTIVE: Pneumococcal Vaccine(1 of 2 - PCV) Never done Hepatitis B Vaccine(1 of 3 - 19+ 3-dose series) Never done DTaP,Tdap,Td Vaccine(2 - Td or Tdap) due on 09/24/2022 Covid-19 Vaccine( - 2022- season) Never done HPI Anne Chung is [...] was referred to orthopedics. She presented to [facility] on June 08, 2024 for complaint of [...] was cause of fall. Sees Dr Cunningham COAGULANT DIPPER. Notes no change in medication dose. Hot [...] General: Skin is warm and dry. Comments: hematoma~1" on mid forehead Neurological: General: No focal [...] - IBUPROFEN 800 MG TABLET Recommend ibuprofen nattzl-kri-vyyik for now until feeling improved. States does not need refill. Ice 15 to 20 minutes several times per day will help with pain. Gentle range of motion. Continue withbrace at the right wrist. Make an appointment with orthopedics and physical therapy. Endorse an appointment with COAGULANT DIPPER to discuss estrogen level. Paroxetine at bedtime [...] Level: 4 - Moderate documented in [facility] encounterWayne [facility]06-[facility] Telephone encounter Note * Telephone Encounter [...] Luu MA May 16, 2024 2:32 PM [facility] Miscellaneous Notes* Telephone Encounter - Levy [...] 16, 2024 2:32 PM documented in this encounterWayne Hospital06-04-2024 History of Present illness Narrative* Yassine Link MD - 04/29/2024 11:56 AM EDT This note was created using Mustard Tree Instrumentsriter. Subjective DISTANCE HEALTH VISIT Patient presents with: [...] the ER last week also and given [place] which did not help. Xrays of her [...] ORTHOPAEDICS Yassine Link MD documented in this encounterWayne Hospital05-30-2024 Nurse Note* Emely Hi MA - 04/24/2024 3:46 PM EDT Patient given Kenalog 30 mg IM in the right upper quadrant gluteus. Patient tolerated injection well. Lot#: [id number] Exp date: 01/23/2025 Emely Hi MA [facility]05-30-2024 Nurse Note* Emely Hi MA - 04/24/2024 3:46 PM EDT Patient given Kenalog 30 mg IM in the right upper quadrant gluteus. Patient tolerated injection well. Lot#: [id number] Exp date: 01/23/2025 Emely Hi MA documented in this encounterWayne Hospital05-30-2024 Instructions* Patient Instructions* Yassine Link MD - 04/24/2024 3:39 PM EDT Warm compress 20 minutes 3 times per day. Avoid sitting on hard surface. documented in this encounterWayne Hospital05-30-2024 History of Present illness Narrative* Yassine Link MD - 04/24/2024 3:29 PM EDT This note was created using Mustard Tree Instrumentsriter. Subjective Patient presents with: Pain: Right hip [...] TABLET Yassine Link MD documented in this encounterWayne Hospital05-21-2024 Telephone encounter Note * Telephone Encounter [...] Please advise. Thank you. Leticia Persaud LPN. [facility]05-21-2024 Miscellaneous Notes* Telephone Encounter - Leticia [...] you. Leticia Persaud LPN. documented in this encounterWayne Hospital05-01-2024 Telephone encounter Note * Telephone Encounter - Levy Luu MA - 03/26/2024 9:46 AM EDT Notified via Arbsourcet. [facility]-01[facility] Miscellaneous Notes* Telephone Encounter - Levy Luu MA - 03/26/2024 9:46 AM EDT Notified via Arbsourcet. * Telephone Encounter - Beatrice WattersMICHEL - 03/25/2024 3:07 PM EDT Patient is [...] you. Levy Luu MA. documented in this encounterWayne Hospital04-30-2024 Telephone encounter Note * Telephone Encounter - Beatrice Watters APRN.CNP - 03/25/2024 3:07 PM EDT Patient is overdue for a routine office visit, only acute visits for the past year Beatrice Watters APRN.CNP [facility]04-30-2024 Telephone encounter Note* Telephone Encounter - [...] Please advise. Thank you. Levy Luu MA. [facility]04-30-2024 Telephone encounter Note* Telephone Encounter - [...] Please advise. Thank you. Levy Luu MA. [facility]04-30-2024 Miscellaneous Notes* Telephone Encounter - Levy [...] you. Levy Luu MA. documented in this encounterWayne Hospital04-18-2024 History of Present illness Narrative* Gertrude Henry MD - 03/13/2024 3:08 PM EDT Anne Chung 1985 REFERRING PHYSICIAN: No ref. provider found CHIEF COMPLAINT: Follow Up HPI: The patient is a 38 year old female s/p pilonidal cyst excision done on 12/20/2023. She complaint of pain/itching in the area. Denies drainage. States that it "hasn't healed" Has been to ED multiple times for [...] records from other medical facilities such as [facility], iqxg-oy-ajqx patient care, obtaining oral medical history from the patient in this encounter, performing a medically appropriate examination, counseling and educating the patient/family/caregiver, and completing appropriate medical documentation. Gertrude Henry MD documented in this encounterWayne Hospital04-18-2024 Miscellaneous Notes* Telephone Encounter - Birgit Pereira MA - 03/13/2024 9:11 AM EDT Images from the original note were not included. Gertrude Henry MD Have patient make an appointment to see me 3pm. Left detailed message to inform of appt at [facility] at 3pm work in. Birgit Pereira MA [...] down with packing place. documented in this encounterWayne Hospital04-01-2024 History of Present illness Narrative* German Pires, EDU.COUNT TEAM CLERK - 02/25/2024 10:42 AM EDT SUBJECTIVE: Pneumococcal Vaccine(1 of 2 - PCV) Never done Hepatitis B Vaccine(1 of 3 - 19+ 3-dose series) Never done DTaP,Tdap,Td Vaccine(2 - Td or Tdap) due on 09/24/2022 Covid-19 Vaccine( season) Never done HPI Anne Chung is a 38 year old female. PMH significant for ACTIVE PROBLEM LIST Asthma Esophageal Reflux Tobacco Use Disorder Anxiety With Depression Overactive Bladder Pain of Left Shoulder Region Non-Adherence to Medical Treatment PCP: Yassine Link MD Presents today for follow-up regarding pilonidal cyst. She was seen at [facility] emergency department on February 11, 2024 for [...] Level: 3 - Low documented in this encounterWayne Hospital03-18-2024 Hospital Discharge instructions Additional Instructions Follow-up with Dr. Henry within the next 3 to 5 days for repeat evaluation. Return if fever, chills, sweats, increasing pain, swelling, or condition worsening way.[facility] Work Phone: 1(488) 773-385602-23-2024 Miscellaneous Notes* Telephone Encounter - Emely Hi MA - 01/18/2024 6:30 PM EST Patient active MyChart. Patient notified via Senichart message. Emely Hi MA * Telephone Encounter [...] you. Leticia Persaud LPN. documented in this encounterWayne Hospital02-22-2024 Miscellaneous Notes* Telephone Encounter - Leticia [...] you. Leticia Persaud LPN. documented in this encounterWayne Hospital02-15-2024 History of Present illness Narrative* German Pires, EDU.COUNT TEAM CLERK - 01/10/2024 1:00 PM EST SUBJECTIVE: Hepatitis [...] department follow-up visit. She was seen at [facility] November 19, 2023 with abscess of left [...] She returned to emergency department on 11/21 [facility] for incisional pain. Provided with [...] December 20, 2023. States she thought she "tore something" per Dr. Henry's note when bending over prior to her visit. She reports 4 ED visits for the above complaint. She was provided with an additional week off of work per her request but advised that she did notrequire any further additional time off from work following this and continue changing dressings aspreviously advised.She was provided with 3 days of oxycodone acetaminophen from [facility] ER January 05, 2024. Presents today regarding [...] from ibuprofen for longer duration pain coverage. [place] for breakthrough pain. German Pires, DIAMOND FINISHING SUPERVISOR.COUNT TEAM CLERK Medical Decision Making: Problems: Moderate: 1+ chronic illnesses with change Risk: Moderate: Drug management Medical Decision Making Level: 4 - Moderate documented in this encounterWayne Hospital02-15-2024 Instructions* Patient Instructions* German Pires APRN.CNS - 01/10/2024 1:00 PM EST If any concerning findings at the surgical site please follow-up with the surgeon. ER for any severe or concerning symptoms. documented in this encounterWayne Hospital02-12-2024 History of Present illness Narrative* Gertrude Henry MD - 01/07/2024 9:17 AM EST Anne Chung 1985 REFERRING PHYSICIAN: No ref. provider found CHIEF COMPLAINT: Follow Up (12/20/23 Pilonidal cyst) HPI: The patient is a 38 year old female presents for follow up of I&D of pilonidal cyst abscess done on 12/20/2023 Still complaint of significant pain, she thought she "tore something" when bending over the other day. States [...] Straightforward Gertrude Henry MD documented in this encounterWayne Hospital02-07-2024 Hospital Discharge instructions Patient Education 01/02/2024 [...] from the wound Vomiting, constipation, or diarrhea 2564-3021 [employer]. [address] [place] [address]. All rights reserved. This information is not intended as a substitute for professional medical care. Always follow yourhealthcare professional's instructions. Follow Up Care 01/02/2024 17:34:27 With:YASSINE LINK MD Address: [address], [place] [id number]- When:2-4 days [facility] 02-07-2024 Note Discharge Instructions Thank you for allowing [facility] to assist you with your healthcare needs. [...] MD When Within 2-4 days Where: [address], [place] [id number]- Allergies Bee Stings (swelling) Tessalon Perles (rash) morphine (hives) penicillin (hives) Medications Please ask your primary doctor or pharmacist before taking any other medication not listed, including over the counter drugs, herbal medications, vitamins and or supplements as they may interact [facility] medications. What How Much When Instructions [...] from the wound Vomiting, constipation, or diarrhea 5090-7568 [employer]. [address] [place] [address]. All rights reserved. This information is not intended as a substitute for professional medical care. Always follow yourhealthcare professional's instructions. Additional Information VACCINATE! IT SAVES LIVES! Members of the community who have not yet received the COVID-19 vaccine and would like to receive it can visit one of [facility] vaccine clinics. There are many vaccine clinic locations within the [facility]. For locations and available times, please visit www.gettheshot.coronavirus.[place].gov/. It is important to note that some COVID mobile vaccine clinics are held outdoors and may be canceled in rainy or stormy conditions. To learn more about pediatric vaccinations (ages 5-11), we invite you to visit the [facility] webpage. https://www.[facility].org/pages/4516-Aszpv-Wwfmtwuzfxt-Qexswsqvae-Pohyj-Qjp stions.htmlTo learn more about the COVID-19 vaccine, we invite you to visit the CDC website for a list of frequently asked questions. https://www.cdc.gov/coronavirus/2019-ncov/vaccines/faq.html [facility] Patient Portal Access Instructions: Stay connected with your healthcare team and access your personal medical information anytime with the [facility] Patient Portal. If you would like a full copy of your medical records please contact the [facility] Medical Records Department Sunday through Sunday between 8a.m. and 4:30p.m. Please follow the directions below to access the portal: 1.Access the email account you provided upon registration to the [facility].2.Look for an invitation email from [facility].3.Open the email and access the invitation link: Accept Invitation to [facility]4.Fill in the required hankins to create your account. Sign into [email or web address].[email or web address] Technologies with your username and password that you [...] you will allow to register on the [facility] Patient Portal for access to your information. You can also access the [facility] Patient Portal on the Oncodesign. Simply click on "Health Records" under "HealthDaMixertech" and then click on the Pia logo. [...] Call your local pharmacy or go to http://bit.MIGSIF/3A1Fy9y to find one close to you.3.Make use of household items: Use cat litter or old coffee grounds to dispose medications if other options arenot available. Mix your drugs with these household products, seal them in an airtight container andthrow it into the garbage. Call [facility]: [phone] to be sure your drugs can be [...] aware that I should contact my doctor. Patient/Permaculture Designer Signature: Date/Time: Relationship to Patient: Witness Name/Signature: Date/Time: [facility]02-07-2024 Miscellaneous Notes* Telephone Encounter - Alejandra Griffiths [...] 02, 2024 1:26 PM documented in this encounterWayne Hospital01-30-2024 History of Present illness Narrative* Gertrude Henry MD - 12/25/2023 11:41 AM EST FOLLOW UP VISIT NAME: Anne Chung [facility] NO.: [id number] DATE OF SERVICE: 12/25/2023 : 1985 REFERRING PHYSICIAN: Yassine iLnk MD Anne is status post I&D of pilonidal cyst abscess done on 12/20/2023. She has a low pain threshold and was seen in the local ED and given additional pain medications. She requests more pain medications. I have told her that this will be the last amount that I prescribe for her. Dressing changes will be done by her friend who is an CARDROOM PLASTIC CARD GRADER. VITALS: Blood pressure 118/78, pulse 82, temperature [...] others. Gertrude Henry MD documented in this encounterWayne Hospital01-28-2024 Miscellaneous Notes* Telephone Encounter - Anu [...] Service [ ] to speak with provider carbon paper machine operator for Dr. Gertrude Henry. GO TO THE EMERGENCY ROOM OR CALL 911 IF: * You develop any new symptoms * Your condition worsens Anu Morin RN documented in this encounterWayne Hospital01-12-2024 Telephone encounter Note * Telephone Encounter - Kathi Soto - 12/07/2023 3:19 PM EST 12/20/2023 I & D PILONIDAL CYST ABSCESS LODI [facility] Miscellaneous Notes* Telephone Encounter - Soto Kathi - 12/07/2023 3:19 PM EST 12/20/2023 I & D PILONIDAL CYST ABSCESS LODI documented in this encounterWayne Hospital12-27-2023 Hospital Discharge instructions Patient Education 11/21/2023 [...] you to stop. You may use an kewb-rmn-xdenmyo pain medicine to control pain, unless another [...] the abscess Boil returns after getting better 0513-2384 [employer]. [address] [place] [address], [place] [address]. All rights reserved. This information is not intended as a substitute for professional medical care. Always follow yourhealthcare professional's instructions. Follow Up Care 11/21/2023 15:43:04 With:YASSINE LINK MD Address: [address] [place] [address]- When:2-4 days [facility] 12-27-2023 Note Basic Information Time Seen: MAYI REAVES MD 11/21/2023 15:47 History of Present Illness Patient is a 38-year-old female presenting to the emergency department today for evaluation of redness around her left buttock. She states that she was diagnosed with an abscess 2 days ago at [facility] and had an incision and drainage [...] YASSINE LINK MD Within 2-4 days [address] [place] [address]- Additional Instructions: Medications What How Much When Why Instructions New acetaminophen-hydrocodone ([place] 325- 5 mg oral tablet) 1 tab(s) [...] CAROLINE ORTIZ MD on 11/21/2023 06:03 PM [facility]12-27-2023 Note Discharge Instructions Thank you for allowing [facility] to assist you with your healthcare needs. [...] MD When Within 2-4 days Where: [address] [place] [address]- Allergies Bee Stings (swelling) Tessalon Perles (rash) morphine (hives) penicillin (hives) Medications Please ask your primary doctor or pharmacist before taking any other medication not listed, including over the counter drugs, herbal medications, vitamins and or supplements as they may interact withyour home medications. What How Much When Why Instructions Last Dose New acetaminophen-hydrocodone ([place] 325- 5 mg oral tablet) 1 tab(s) by mouth Every 6 hours as needed for for pain Cellulitis Duration: 1 Days Printed Prescription New acetaminophen-hydrocodone ([place] 325- 5 mg oral tablet) 1 tab(s) [...] you to stop. You may use an nclk-vpw-ceakyxv pain medicine to control pain, unless another [...] the abscess Boil returns after getting better 4890-0351 [employer]. [address] [place] [address]. All rights reserved. This information is not intended as a substitute for professional medical care. Always follow yourhealthcare professional's instructions. Additional Information VACCINATE! IT SAVES LIVES! Members of the community who have not yet received the COVID-19 vaccine and would like to receive it can visit one of [facility] vaccine clinics. There are many vaccine clinic locations within the [facility]. For locations and available times, please visit www.gettheshot.coronavirus.[place].gov/. It is important to note that some COVID mobile vaccine clinics are held outdoors and may be canceled in rainy or stormy conditions. To learn more about pediatric vaccinations (ages 5-11), we invite you to visit the [facility] webpage. https://www.[facility].org/pages/1839-Lwflc-Yopahgciegm-Dxqaoxzvjz-Pwllx-Yke stions.htmlTo learn more about the COVID-19 vaccine, we invite you to visit the CDC website for a list of frequently asked questions. https://www.cdc.gov/coronavirus/2019-ncov/vaccines/faq.html [facility] Patient Portal Access Instructions: Stay connected with your healthcare team and access your personal medical information anytime with the [facility] Patient Portal. If you would like a full copy of your medical records please contact the [facility] Medical Records Department Sunday through Sunday between 8a.m. and 4:30p.m. Please follow the directions below to access the portal: 1.Access the email account you provided upon registration to the [facility].2.Look for an invitation email from [facility].3.Open the email and access the invitation link: Accept Invitation to [facility]4.Fill in the required hankins to create your account. Sign into [email or web address] with your username and password that you [...] you will allow to register on the [facility] Patient Portal for access to your information. You can also access the [facility] Patient Portal on the [employer] phillip. Simply click on "Health Records" under "HealthData" and then click on the Pia logo. [...] Call your local pharmacy or go to http://Shoot it!.MIGSIF/0W1Aa9d to find one close to you.3.Make use of household items: Use cat litter or old coffee grounds to dispose medications if other options arenot available. Mix your drugs with these household products, seal them in an airtight container andthrow it into the garbage. Call [facility]: [phone] to be sure your drugs can be [...] aware that I should contact my doctor. Patient/Permaculture Designer Signature: Date/Time: Relationship to Patient: Witness Name/Signature: Date/Time: [facility]12-25-2023 Discharge summary Author Grant Mercado [facility] November 19, 2023 1:59pm Note Date/Time November 19, 2023 1:08pm [facility] Medical Records Department [address] [place] [address] Emergency Department Summary 11/19/23 MR#: [id number] Acct: [id number] Name: ANNE CHUNG Rep #:[id number] : 1985 38 From: Grant Mercado MD [...] Yes additional social history: Boyfriend-Sha- Works at [employer] Patient works at [employer] ROS ROS ED Constitutional Constitutional ED: Denies [...] your Primary Care Provider. Call [facility] ([phone]) or report to the closest Emergency Room. Call 911 if necessary. 11/19/23 3750 <Electronically signed by Grant Mercado MD> Cosigner Signature (if applicable): CC: Dr. Yassine Link MD ~ Signed [facility] Work Phone: 1(797) 233-944411-06-2023 History of Present illness Narrative* Yassine Link [...] encounter. This telemedicine encounter was accomplished via M-Factor. Anne Chung is a 37 year old female with coughing, nausea, vomiting since Sunday. Other symptomswere wheezing, dyspnea. She felt feverish today. Dayquil and Nyquil were taken with temporary relief. 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 She had no contact with [...] effects. Yassine Link MD documented in this encounterWayne Hospital10-27-2023 Miscellaneous Notes* Telephone Encounter - Em [...] 09/21/2023 2:49 PM EDT Eugenio, Pharmacist with [facility] calling regarding pt's script for [...] and patient. Thank you. documented in this encounterWayne Hospital10-27-2023 Hospital Discharge instructions Additional Instructions 1. Apply ice to your left ankle 6-10 times a day 2. Draw the alphabet with your foot 4-6 times a day 3. Wear flat shoes. He should not go up or down inclines or go up or down ladders.[facility] Work Phone: [phone]) 592-391208-08-2023 Miscellaneous Notes* Telephone Encounter - Levy Luu Ma - 07/03/2023 4:49 PM EDT TERESE: 05/28/2023 Last refill: 04/06/2023 QTY: 30 Refills: 0 documented in this encounterWayne Hospital07-07-2023 Miscellaneous Notes* Telephone Encounter - ANITRA Pastrana [...] Thank you. ANITRA Pastrana documented in this encounterWayne Hospital07-03-2023 History of Present illness Narrative* Yassine Link MD - 05/28/2023 7:46 PM EDT This note was created using NoteWriter. Subjective Patient presents with: ED Follow-up Anne Chung is a 37 year old female who is status post right oophorectomy 05/10/[address] Love in [facility]. She went back to work this weekend and developed progressively severe sharp umbilical pain with nausea. She went to the [place] ED yesterday, where labs were labs and CT scan of of the abdomen and pelvis were within normal limits. She was given Toradol with no relief and one dose of [place]. She was advised to follow up with [...] TABLET Yassine Link MD documented in this encounterWayne Hospital07-02-2023 Discharge summary Author Christos Storm [facility] May 27, 2023 1:27pm Note Date/Time May 27, 2023 10:45 am [facility] Medical Records Department [address] [place] [address] Emergency Department Summary 05/27/23 MR#: [id number] Acct: [id number] Name: ANNE CHUNG Rep #:[id number] : 1985 37 From: Christos Storm MD [...] removed. [address] Cunningham at [facility] removed the right ovary. Laparoscopically. Initiallythey did [...] Yes additional social history: Boyfriend-Sha- Works at [employer] Patient works at [employer] ROS ROS ED ROS Narrative Periumbilical abdominal [...] complaining of pain. She be given 1 [place] for pain. I do not think she merits Dilaudid for her discomfort. She reportedly has a morphine allergy. She said the Toradol was of no relief. I went over her labs and CAT scan with her. Wereawaiting the urinalysis results. Patient doing well. Was complaining of additional pain after the Toradol. She was given 1 [place]. Her abdomen is completely benign. Labs and [...] % (Auto) 67.3 Lymph % (Auto) 25.0 [place] % (Auto) 5.0 Eos % (Auto) 1.8 [...] Clarity Clear Urine pH 8.0 Ur Specific [place] 1.010 Urine Protein 30 H Urine Glucose [...] and Motrin for pain. Follow-up with your COAGULANT DIPPER Dr. Cunningham. Your CAT scan and labs today were unremarkable. Disposition Disposition: Home, Self Care What to do if you have Problems For any increased pain, shortness of breath, bleeding, nausea or vomiting, chestpain, or any unexpected problems, contact your Primary Care Provider. Call [facility] [facility] [employer] [facility] ([phone]) or report to the closest Emergency Room. Call 911 if necessary. 05/27/23 1327 <Electronically signed by Christos Storm MD> Cosigner Signature (if applicable): CC: Dr. Yassine Link MD ~ Signed [facility] Work Phone: 1(251) 988-798405-12-2023 Miscellaneous Notes* Telephone Encounter - Levy Luu [...] you. Leticia Persaud LPN documented in this encounterWayne [facility] History of Present illness Narrative* Yassine Link MD - 03/12/2023 6:18 PM EDT This note was created using Adpointster. Subjective DISTANCE HEALTH VISIT Anne Chung's identity [...] recommendations. Yassine Link MD documented in this encounterWayne Hospital03-31-2023 Miscellaneous Notes* Telephone Encounter - Shelbie Bass LPN - 02/23/2023 2:02 PM EDT Last office [...] advise. Shelbie Bass LPN documented in this encounterWayne Hospital03-28-2023 Miscellaneous Notes* Telephone Encounter - Sally Rincon Sec - 02/20/2023 10:02 AM EDT Ms. Chung called in response to a [employer] message about [facility] an [facility] with [facility]. She would like a call back to let her know why she needs the appointment. Deborah Rincon Machine Maintenance Technician documented in this encounterWayne Hospital03-13-2023 Miscellaneous Notes* Telephone Encounter - Levy Luu Ma - 02/05/2023 11:01 AM EDT TERESE: 01/29/2023 Distance [facility] Last refill: 01/29/2023 QTY: 9 Refills: 0 documented in this encounterWayne Hospital03-06-2023 History of Present illness Narrative* German Pires APRN.COUNT TEAM CLERK - 01/29/2023 11:40 AM EST I have communicated my name and active licensure. The patient's identity and physical location wereverified at the time of this visit. Either the patient or their legal manufacturing sales representative has been informed of the risks and benefits of -- and alternatives to -- treatment through a remote evaluation andconsents to proceed with the evaluation remotely. Video visit. In [place]. Patient only. Consents to visit. SUBJECTIVE: HEPATITIS [...] lump. She reports being seen by her COAGULANT DIPPER Dr. Cunningham for folliculitis which she reports [...] been ordered by her vascular surgeon, scheduled. [employer] messages indicate insurance denial. Provider and vascular [...] to see pain management Dr. Yang at [facility]. PCP referred her to pain management, [...] Level: 1 - N/A documented in this encounterWayne Hospital02-04-[address] Mercado [facility] December 30, 2022 3:43pm Note Date/Time December 30, 2022 3 :39pm [facility] Medical Records Department [address] [place] [address] Emergency Department Summary 12/30/22 MR#: [id number] Acct: [id number] Name: ANNE CHUNG Rep #:[id number] : 1985 37 From: Grant Mercado MD [...] Prior similar symptoms: Yes Recent [facility] Medical History Anxiety Depression GERD (gastroesophageal [...] dibucaine 1 % rectal ointment 1 applic ME TID PRN hemorrhoids #56 grams 09/16/22[Rx Last [...] Yes additional social history: Boyfriend-Sha- Works at [employer] Patient works at [employer] ROS ROS ED Constitutional Constitutional ED: Denies [...] % cream with perineal applicator 1 applic ME BID PRN (Reason: hemorrhoids) Qty: 30 0RF dibucaine 1 % ointment 1 applic ME TID PRN (Reason: hemorrhoids) Qty: 56 0RF oxycodone-acetaminophen [Percocet] 5-325 mg tablet 1 tab PO Q6H PRN (Reason: pain) 3 Days Qty: 10 0RF Primary Care Provider: Yassine Link Referrals: Adonis Bar MD [Med Staff - Active Staff] - Keep [facility] appointment Yassine Link MD [Primary Care Provider] - Keep [facility] appointment Disposition Disposition: Home, Self Care What to do if you have Problems For any increased pain, shortness of breath, bleeding, nausea or vomiting, chestpain, or any unexpected problems, contact your Primary Care Provider. Call [facility] ([phone]) or report to the closest Emergency Room. Call 911 if necessary. 12/30/22 1543 <Electronically signed by Grant Mercado MD> Cosigner Signature (if applicable): CC: Dr. Yassine Link MD ~ Signed [facility] Work Phone: [phone] 244-841302-03-2023 Miscellaneous Notes* Telephone Encounter - Carol Rainey APRN.CNP - 12/29/2022 11:29 AM EST Peer to Peer requested [place]: [id number] [place] [id number] [place] [facility]ERVICAL SPINE [facility] with [facility] - requested further information. Called pt and documented necessary information in telephone encounter from 12/29/22. Called insurance company back - requested us to fax this documentation for further review. Fax information faxed to . Received confirmation receipt from transmission report. Carol Rainey APRN.CNP documented in this encounterWayne Hospital02-03-2023 Miscellaneous Notes* Telephone Encounter - Carol Rainey APRN.CNP - 12/29/2022 9:55 AM EST Called insurance company at 9:20am today 12/29/22 [...] past 6 months since she works at [employer] and the job requires lifting. Pt to f/u with pain management - next appointment is 01/16/23. Pt states pain management would like MRIs before considering invasive treatments. No vascular surgery plans at this time. I will contact [email or web address] again to discuss this information to seek approval for MRIs. Carol Rainey APRN.YORDY documented in this encounterWayne Hospital02-02-2023 History of Present illness Narrative* Yassine [...] done. Yassine Link MD documented in this encounterWayne Hospital02-02-2023 History of Present illness Narrative* Hao Hadley, PT - 12/28/2022 9:12 AM EST Episode [...] L shoulder for ease of work duties [place] in home exercise program. Increase ROM of the L shoulder to WNL for reaching overhead Patient Goals: Decrease pain Planned Interventions, Frequency, and Duration: Current Frequency: 1x/week Duration: 4 weeks Total Number of Visits Planned: 4 Planned Treatment Interventions: Therapeutic exercise (74575), Neuromuscular re- education (82717), Manual therapy (17437), Self-senior living management (64280), Patient/Family/Caregiver Education PLAN FOR NEXT VISIT: Supraspinatus [...] Independent without limitations Relevant History Preferred Language: East Timorese Intake Information: Prescription present Previous Treatment: Physical [...] 44 Hao Mcclellan PT documented in this encounterWayne Hospital01-25-2023 Miscellaneous Notes* Telephone Encounter - Leticia [...] you. Leticia Persaud LPN documented in this encounterWayne Hospital01-16-2023 History of Present illness Narrative* German Pires APRN.COUNT TEAM CLERK - 12/11/2022 3:00 PM EST Video visit. In [place]. Patient only. Consents to visit. SUBJECTIVE: HEPATITIS [...] lump. She reports being seen by her COAGULANT DIPPER Dr. Cunningham for folliculitis which she reports [...] [facility] with [facility] She will let us know if not feeling improved. German Pires APRN.COUNT TEAM CLERK 20 min in visit Medical Decision Making: Problems: Moderate: 1+ chronic illnesses with change Risk: Moderate: Drug management Medical Decision Making Level: 4 - Moderate documented in this encounterWayne Hospital01-13-2023 History of Present illness Narrative* Rosas Baugh MD - 12/08/2022 12:[address] [facility] Rosas Baugh M.D., F.ACubaS. Gabino Torres [facility] [address] [place], [place] [address] NAME: ANNE KUHN [facility] NO: [id number] DATE OF SERVICE: 12/08/[address]22 PLACE OF ENCOUNTER: [facility] Established patient recently hospitalized and discharged from [...] time. ROSAS BAUGH M.D. BB/079 Audio #: [id number] Date Dictated: 12/08/2022 11:32:05 Date Typed: 12/08/2022 14:08:06 Date Revised: documented in this encounterWayne Hospital01-11-2023 Miscellaneous Notes* Telephone Encounter - Levy Luu Ma - 12/06/2022 9:30 AM EST Notified via OLED-T. * Telephone Encounter - Birgit Velazquez LPN [...] pharmacy. Levy Luu Ma documented in this encounterWayne Hospital01-11-2023 Miscellaneous Notes* Telephone Encounter - Yassine Link MD - 12/06/2022 8:44 AM EST Patient seen. documented in this encounterWayne Hospital01-07-2023 Miscellaneous Notes* Telephone Encounter - Yassine [...] today. Reports she fell on it over [place]. Reports when she saw pain management, the [...] 11-22-22. Please advise patient. documented in this encounterWayne Hospital01-06-2023 History of Present illness Narrative* Yassine Link MD - 12/01/2022 4:35 PM EST This note was created using Adpointster. Subjective Anne Chung is a 37 year [...] offered to refer her to a different supervisor paint in [facility]. Review of Systems Constitutional: Negative. Respiratory: [...] Bar. Yassine Link MD documented in this encounterWayne Hospital12-15-2022 History of Present illness Narrative* Yassine [...] Yassine Link MD S documented in this encounterWayne Hospital12-09-2022 Instructions* Patient Instructions* German Pires APRN.CNS - 11/03/2022 10:57 AM EST Keep area of concern clean and dry. Wash with soap and water daily. Avoid clothing over the area ofconcern. Follow-up with your COAGULANT DIPPER if not feeling improved. documented in this encounterWayne Hospital12-09-2022 History of Present illness Narrative* German [...] lump. She reports being seen by her COAGULANT DIPPER Dr. Cunningham for folliculitis which she reports [...] Pain medication x3 days Further follow-up with COAGULANT DIPPER and PCP advised. ER for any severe or concerning symptoms - OXYCODONE-ACETAMINOPHEN 5 MG-325 MG TABLET - SULFAMETHOXAZOLE 800 MG-TRIMETHOPRIM 160 MG TABLET German Pires APRN.SHANNEN Medical Decision Making: Problems: Low: Acute, uncomplicated illness or injury Risk: Moderate: Drug management Medical Decision Making Level: 3 - Low documented in this encounterWayne Hospital11-28-2022 Miscellaneous Notes* Telephone Encounter - Shelbie [...] advise. Shelbie Bass LPN documented in this encounterWayne Hospital11-10-2022 Miscellaneous Notes* Telephone Encounter - Yassine Link MD - 10/05/2022 8:00 PM EST Patient's [...] 10/05/2022 1:29 PM EST Hipolito from the [facility] reports they are out of this medication right now. States Pt is asking if provider could send it to [facility] in [place]. Patient has been identified by name and [...] you. Aliyah Trimble RN documented in this encounterWayne Hospital11-10-2022 Instructions* Patient Instructions* Yassine Link MD - 10/05/2022 12:24 PM EST SEE GYNECOLOGY FOR EVALUATION AND TREATMENT. PERCOCET IS REFILLED THIS LAST TIME. documented in this encounterWayne Hospital11-10-2022 History of Present illness Narrative* Yassine [...] and it was suggested she see her jd edwards about this. She had an appointment with [...] ED. It is not clear if her jd edwards will recommend surgery or if the pain is coming from this ovarian cyst. Shared medical decision making was done. Opioid has risks, and we agreed I am refilling this absolutely for the last time. Yassine Link MD documented in this encounterWayne Hospital11-10-2022 Miscellaneous Notes* Telephone Encounter - Evelin [...] you. Leticia Persaud LPN documented in this encounterWayne Hospital11-09-2022 Miscellaneous Notes* Telephone Encounter - Leticia [...] you. Leticia Persaud LPN documented in this encounterWayne Hospital11-01-2022 Instructions* Patient Instructions* Yassine Link MD - 09/26/2022 11:04 AM EDT I recommend ER evaluation. documented in this encounterWayne Hospital11-01-2022 History of Present illness Narrative* Yassine Link MD - 09/26/2022 10:55 AM EDT This note was created using Mustard Tree Instrumentsriter. Subjective Anne Chung is a 36 year [...] recommendations. Yassine Link MD documented in this encounterWayne Hospital10-06-2022 Instructions* Patient Instructions* Izabela Stephens APRN.RACING CAR DRIVER - 08/31/2022 9:31 AM EDT Activity as tolerated Use Ice and/or heat as tolerated as needed documented in this encounterWayne Hospital10-06-2022 History of Present illness Narrative* Minoo [...] patient is not nervous/anxious. * Izabela Stephens APRN.YORDY - 08/31/2022 9:00 AM EDT [facility] Today's Date: 08/31/2022 Last Visit: N/A [...] stenosis in the cervical and thoracic spine. Radio Operator Ground: JUSTIN Transcribe Date/Time: Feb 20 2018 9:51A [...] suspiciousactivity was identified. 08/31/2022 by Izabela Stephens APRN.RACING CAR DRIVER Risk Assessment: BLACK-7: BLACK - 7 SCORES [...] and external rotation Special Tests: Non-painful (negative) Jaen Smalls's Diagnoses: (G54.0) TOS (thoracic outlet syndrome) [...] 08/31/2022 Completed and reviewed,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 General Surgery 09/24/19 Mortgage Protection Specialist Relationship Specialty Start Date End Date Yassine Link MD [address] [place] [address] PCP - General 02/15/07 Florin Patel MD [address] [facility] [place] [address] Referring General Surgery 07/25/18 Bartolo Gonzalez MD [address] [place] [address] Referring General Surgery 09/24/19 Mortgage Protection Specialist Relationship Specialty Start Date End Date Yassine Link MD [address] [place] [address] PCP - General 02/15/07 Florin Patel MD [address] [facility] [place] [address] Referring General Surgery 07/25/18 Bartolo Gonzalez MD [address] [place] [address] Referring General Surgery 09/24/19 Mortgage Protection Specialist Relationship Specialty Start Date End Date Yassine Link MD [address] [place] [address] PCP - General 02/15/07 Florin Patel MD [address] [facility] [place] [address] Referring General Surgery 07/25/18 Bartolo Gonzalez MD [address] [facility] [address] [place] [address] Referring General Surgery 09/24/19 Mortgage Protection Specialist Relationship Specialty Start Date End Date Yassine Link MD [address] [place] [address] PCP - General 02/15/07 Florin Patel MD [address] [facility] [place] [address] Referring General Surgery 07/25/18 Bartolo Gonzalez MD [address] [facility] [address] [place] [address] Referring General Surgery 09/24/19 Mortgage Protection Specialist Relationship Specialty Start Date End Date Yassine Link MD [address] [place] [address] PCP - General 02/15/07 Florin Patel MD [address] [facility] [place] [address] Referring General Surgery 07/25/18 Bartolo Gonzalez MD [address] [facility] [address] [place] [address] Referring General Surgery 09/24/19 Mortgage Protection Specialist Relationship Specialty Start Date End Date Yassine Link MD [address] [place] [address] PCP - General 02/15/07 Florin Patel MD [address] [place] [place] [address] Referring General Surgery 07/25/18 Bartolo Gonzalez MD [address] [facility] [address] [place] [address] Referring General Surgery 09/24/19 Mortgage Protection Specialist Relationship Specialty Start Date End Date Yassine Link MD [address] [place] [address] PCP - General 02/15/07 Florin Patel MD [address] [facility] [place] [address] Referring General Surgery 07/25/18 Bartolo Gonzalez MD [address] [facility] [address] [place] [address] Referring General Surgery 09/24/19 Mortgage Protection Specialist Relationship Specialty Start Date End Date Yassine Link MD [address] [place] [address] PCP - General 02/15/07 Florin Patel MD [address] [facility] [place] [address] Referring General Surgery 07/25/18 Bartolo Gonzalez MD [address] [facility] [address] [place] [address] Referring General Surgery 09/24/19 Mortgage Protection Specialist Relationship Specialty Start Date End Date Yassine Link MD [address] [place] [address] PCP - General 02/15/07 Florin Patel MD [address] [facility] [place] [address] Referring General Surgery 07/25/18 Bartolo Gonzalez MD [address] [facility] [address] [place] [address] Referring General Surgery 09/24/19 Mortgage Protection Specialist Relationship Specialty Start Date End Date Yassine Link MD [address] [place] [address] PCP - General 02/15/07 Florin Patel MD [address] [facility] [place] [address] Referring General Surgery 07/25/18 Bartolo Gonzalez MD [address] [facility] [address] [place] [address] Referring General Surgery 09/24/19 Mortgage Protection Specialist Relationship Specialty Start Date End Date Yassine Link MD [address] [place] [address] PCP - General 02/15/07 Florin Patel MD [address] [facility] [place] [address] Referring General Surgery 07/25/18 Bartolo Gonzalez MD [address] [facility] [address] [place] [address] Referring General Surgery 09/24/19 Mortgage Protection Specialist Relationship Specialty Start Date End Date Yassine Link MD [address] [place] [address] PCP - General 02/15/07 Florin Patel MD [address] [facility] [place] [address] Referring General Surgery 07/25/18 Bartolo Gonzalez MD [address] [facility] [address] [place] [address] Referring General Surgery 09/24/19 Mortgage Protection Specialist Relationship Specialty Start Date End Date Yassine Link MD [address] [place] [address] PCP - General 02/15/07 Florin Patel MD [address] [facility] [place] [address] Referring General Surgery 07/25/18 Bartolo Gonzalez MD [address] [facility] [address] [place] [address] Referring General Surgery 09/24/19 Mortgage Protection Specialist Relationship Specialty Start Date End Date Yassine Link MD [address] [place] [address] PCP - General 02/15/07 Florin Patel MD [address] [facility] [place] [address] Referring General Surgery 07/25/18 Bartolo Gonzalez MD [address] [facility] [facility] [address] [place] [address] Referring General Surgery 09/24/19 Mortgage Protection Specialist Relationship Specialty Start Date End Date Yassine Link MD [address] [place] [address] PCP - General 02/15/07 Florin Patel MD [address] [facility] [place] [address] Referring General Surgery 07/25/18 Bartolo Gonzalez MD [address] [facility] [facility] [address] [place] [address] Referring General Surgery 09/24/19 Mortgage Protection Specialist Relationship Specialty Start Date End Date Yassine Link MD [address] [place] [address] PCP - General 02/15/07 Florin Patel MD [address] [facility] [place] [address] Referring General Surgery 07/25/18 Bartolo Gonzalez MD [address] [facility] [address] [place] [address] Referring General Surgery 09/24/19 Mortgage Protection Specialist Relationship Specialty Start Date End Date Yassine Link MD [address] [place] [address] PCP - General 02/15/07 Florin Patel MD [address] [facility] [place] [address] Referring General Surgery 07/25/18 Bartolo Gonzalez MD [address] [facility] [address] [place] [address] Referring General Surgery 09/24/19 Mortgage Protection Specialist Relationship Specialty Start Date End Date Yassine Link MD [address] [place] [address] PCP - General 02/15/07 Florin Patel MD [address] [facility] [place] [address] Referring General Surgery 07/25/18 Bartolo Gonzalez MD [address] [address] [place] [address] Referring General Surgery 09/24/19 Mortgage Protection Specialist Relationship Specialty Start Date End Date Yassine Link MD [address] [place] [address] PCP - General 02/15/07 Florin Patel MD [address] [facility] [place] [address] Referring General Surgery 07/25/18 Bartolo Gonzalez MD [address] [place] [address] Referring General Surgery 09/24/19 Mortgage Protection Specialist Relationship Specialty Start Date End Date Yassine Link MD [address] [place] [address] PCP - General 02/15/07 Florin Patel MD [address] [facility] [place] [address] Referring General Surgery 07/25/18 Bartolo Gonzalez MD [address] [place] [address] Referring General Surgery 09/24/19 Mortgage Protection Specialist Relationship Specialty Start Date End Date Yassine Link MD [address] [place] [address] PCP - General 02/15/07 Florin Patel MD [address] [facility] [place] [address] Referring General Surgery 07/25/18 Bartolo Gonzalez MD [address] [place] [address] Referring General Surgery 09/24/19 Team Status: Active Member Role Status Dates No Primary Care Physician Family Provider Active Dr. Yassine Link MD Primary Care Provider Active Team Status: Inactive Member Role Status Dates Dr. Yassine Link MD Primary Care Provider, Refer ring Provider Active Aliyah ROBERTS, PA-C Attending Provider Active Team Status: Inactive [...] Dr. Grant Mercado MD Emergency Provider Active Mortgage Protection Specialist Relationship Specialty Start Date End Date Yassine Link MD [address] [facility] [facility] [place] [address] PCP - General 02/15/07 Florin Patel MD [address] [place] [place] [address] Referring General Surgery 07/25/18 Bartolo Gonzalez MD [address] [facility] [address] [place] [address] Referring General Surgery 09/24/19 Mortgage Protection Specialist Relationship Specialty Start Date End Date Yassine Link MD [address] [facility] [place] [address] PCP - General 02/15/07 Florin Patel MD [address] [place] [place] [address] Referring General Surgery 07/25/18 Bartolo Gonzalez MD [address] [facility] [address] [place] [address] Referring General Surgery 09/24/19 Team Status: Inactive [...] Dr. Christos Storm MD Emergency Provider Active Mortgage Protection Specialist Relationship Specialty Start Date End Date Yassine Link MD [address] [facility] [place] [address] [facility] - General 02/15/07 Florin Patel MD [address] [place] [place] [address] Referring General Surgery 07/25/18 Bartolo Gonzalez MD [address] [place] [address] Referring General Surgery 09/24/19 Team Status: Inactive [...] DO Attending Provider, Emergency Pro vider Active Mortgage Protection Specialist Relationship Specialty Start Date End Date Yassine Link MD [address] [facility] [place] [address] PCP - General 02/15/07 Florin Patel MD [address] [place] [address] Referring General Surgery 07/25/18 Bartolo Gonzalez MD [address] [place] [address] Referring General Surgery 09/24/19 Team Status: Inactive Member Role Status Dates Dr. Yassine Link MD Primary Care Provider Active Dr. Henry Ivan DO Emergency Provider Active Mortgage Protection Specialist Relationship Specialty Start Date End Date Yassine Link MD [address] [place] [address] PCP - General 02/15/07 Florin Patel MD [address] [place] [address] Referring General Surgery 07/25/18 Bartolo Gonzalez MD [address] [facility] [address] [place] [address] Referring General Surgery 09/24/19 Team Status: Inactive Member Role Status Dates Dr. Yassine Link MD Primary Care Provider Active Dr. Henry Ivan DO Attending Provider, Emergency Provider Active Mortgage Protection Specialist Relationship Specialty Start Date End Date Yassine Link MD [address] [place] [address] PCP - General 02/15/07 Florin Patel MD [address] [place] [address] Referring General Surgery 07/25/18 Bartolo Gonzalez MD [address] [place] [address] [place] [address] Referring General Surgery 09/24/19 Mortgage Protection Specialist Relationship Specialty Start Date End Date Yassine Link MD [address] [facility] [place] [address] PCP - General 02/15/07 Florin Patel MD [address] [place] [address] Referring General Surgery 07/25/18 Bartolo Gonzalez MD [address] [place] [address] Referring General Surgery 09/24/19 Mortgage Protection Specialist Relationship Specialty Start Date End Date Yassine Link MD [address] [facility] [facility] [place] [address] PCP - General 02/15/07 Florin Patel MD [address] [facility] [place] [address] Referring General Surgery 07/25/18 Bartolo Gonzalez MD [address] [place] [address] Referring General Surgery 09/24/19 Mortgage Protection Specialist Relationship Specialty Start Date End Date Yassine Link MD [address] [facility] [place] [address] PCP - General 02/15/07 Florin Patel MD [address] [place] [place] [address] Referring General Surgery 07/25/18 Bartolo Gonzalez MD [address] [address] Referring General Surgery 09/24/19 Team Status: Inactive Member Role Status Dates Dr. Yassine Link MD Primary Care Provider Active Dr. Codey Dixon DO Emergency Provider Active Team Status: Inactive Member Role Status Dates Dr. Yassine Link MD Primary Care Provider Active Dr. Codey Dixon DO Attending Provider, Emergency P rovider Active Team Status: Inactive Member Role Status [...] Dr. Ammon Valdez MD Emergency Provider Active Mortgage Protection Specialist Relationship Specialty Start Date End Date Yassine Link MD [address] [place] [address] PCP - General 02/15/07 Florin Patel MD [address] [place] [address] Referring General Surgery 07/25/18 Bartolo Gonzalez MD [address] [address] Referring General Surgery 09/24/19 Team Status: Inactive Member Role Status Dates Dr. Yassine Link MD Primary Care Provider Active Dr. Bartolo Giles DO Attending Provider, Emergency P rovider Active Team Status: Inactive Member Role Status Dates Dr. Yassine Link MD Primary Care Provider Active Dr. Ammon Valdez MD Attending Provider, Emergency Provider Active Mortgage Protection Specialist Relationship Specialty Start Date End Date Yassine Link MD [address] [place] [address] PCP - General 02/15/07 Florin Patel MD [address] [place] [address] Referring General Surgery 07/25/18 Bartolo Gonzalez MD [address] [place] [address] Referring General Surgery 09/24/19 Team Status: Inactive Member Role Status Dates Dr. Yassine Link MD Primary Care Provider Active Dr. Carol Gillis MD Emergency Provider Active Mortgage Protection Specialist Relationship Specialty Start Date End Date Yassine Link MD [address] [place] [address] PCP - General 02/15/07 Florin Patel MD [address] [place] [address] Referring General Surgery 07/25/18 Bartolo Gonzalez MD [address] [address] [place] [address] Referring General Surgery 09/24/19 Mortgage Protection Specialist Relationship Specialty Start Date End Date Yassine Link MD [address] [place] [address] PCP - General 02/15/07 Florin Patel MD [address] [place] [address] Referring General Surgery 07/25/18 Bartolo Gonzalez MD [address] [place] [address] Referring General Surgery 09/24/19 Mortgage Protection Specialist Relationship Specialty Start Date End Date Yassine Link MD [address] [facility] [place] [address] PCP - General 02/15/07 Florin Patel MD [address] [facility] [place] [address] Referring General Surgery 07/25/18 Bartolo Gonzalez MD [address] [place] [address] Referring General Surgery 09/24/19 Mortgage Protection Specialist Relationship Specialty Start Date End Date Yassine Link MD [address] [facility] [place] [address] PCP - General 02/15/07 Florin Patel MD [address] [facility] [address] Referring General Surgery 07/25/18 Bartolo Gonzalez MD [address] [place] [address] Referring General Surgery 09/24/19 Mortgage Protection Specialist Relationship Specialty Start Date End Date Yassine Link MD [address] [facility] [place] [address] PCP - General 02/15/07 Florin Patel MD [address] [facility] [address] Referring General Surgery 07/25/18 Bartolo Gonzalez MD [address] [place] [address] Referring General Surgery 09/24/19 Mortgage Protection Specialist Relationship Specialty Start Date End Date Yassine Link MD [address] [place] [address] PCP - General 02/15/07 Florin Patel MD [address] [place] [address] Referring General Surgery 07/25/18 Bartolo Gonzalez MD [address] [place] [address] Referring General Surgery 09/24/19 Mortgage Protection Specialist Relationship Specialty Start Date End Date Yassine Link MD [address] [place] [address] PCP - General 02/15/07 Florin Patel MD [address] [facility] [place] [address] Referring General Surgery 07/25/18 Bartolo Gonzalez MD [address] [address] [place] [address] Referring General Surgery 09/24/19 Mortgage Protection Specialist Relationship Specialty Start Date End Date Yassine Link MD [address] [place] [address] PCP - General 02/15/07 Florin Patel MD [address] [place] [address] Referring General Surgery 07/25/18 Bartolo Gonzalez MD [address] [facility] [address] [place] [address] Referring General Surgery 09/24/19 Mortgage Protection Specialist Relationship Specialty Start Date End Date Yassine Link MD [address] [place] [address] PCP - General 02/15/07 Florin Patel MD [address] [place] [address] Referring General Surgery 07/25/18 Bartolo Gonzalez MD [address] [place] [address] Referring General Surgery 09/24/19 Mortgage Protection Specialist Relationship Specialty Start Date End Date Yassine Link MD [address] [place] [address] PCP - General 02/15/07 Florin Patel MD [address] [place] [address] Referring General Surgery 07/25/18 Bartolo Gonzalez MD [address] [facility] [address] [place] [address] Referring General Surgery 09/24/19 Beatrice Watters, DIAMOND FINISHING SUPERVISOR.RACING CAR DRIVER [address] [place] [address] Hearing Dog Trainer Internal Medicine 11/03/24 Mortgage Protection Specialist Relationship Specialty Start Date End Date Yassine Link MD [address] [place] [address] PCP - General 02/15/07 Florin Patel MD [address] [place] [address] Referring General Surgery 07/25/18 Bartolo Gonzalez MD [address] [place] [address] Referring General Surgery 09/24/19 Beatrice Watters, DIAMOND FINISHING SUPERVISOR.RACING CAR DRIVER [address] [place] [address] Hearing Dog Trainer Internal Medicine 11/03/24 Mortgage Protection Specialist Relationship Specialty Start Date End Date Yassine Link MD [address] [place] [address] PCP - General 02/15/07 Florin Patel MD [address] [place] [address] Referring General Surgery 07/25/18 Bartolo Gonzalez MD [address] [facility] [address] [place] [address] Referring General Surgery 09/24/19 Beatrice Watters, DIAMOND FINISHING SUPERVISOR.RACING CAR DRIVER [address] [place] [address] Hearing Dog Trainer Internal Medicine 11/03/24 Mortgage Protection Specialist Relationship Specialty Start Date End Date Yassine Link MD [address] [place] [address] PCP - General 02/15/07 Florin Patel MD [address] [place] [address] Referring General Surgery 07/25/18 Bartolo Gonzalez MD [address] [place] [address] Referring General Surgery 09/24/19 Beatrice Watters, DIAMOND FINISHING SUPERVISOR.RACING CAR DRIVER [address] [place] [address] Hearing Dog Trainer Internal Medicine 11/03/24 Mortgage Protection Specialist Relationship Specialty Start Date End Date Yassine Link MD [address] [place] [address] PCP - General 02/15/07 Florin Patel MD [address] [place] [address] Referring General Surgery 07/25/18 Bartolo Gonzalez MD [address] [place] [address] Referring General Surgery 09/24/19 Beatrice Wattres, DIAMOND FINISHING SUPERVISOR.RACING CAR DRIVER [address] [place] [address] Hearing Dog Trainer Internal Medicine 11/03/24 Mortgage Protection Specialist Relationship Specialty Start Date End Date Yassine Link MD [address] [place] [address] PCP - General 02/15/07 Florin Patel MD [address] [place] [address] Referring General Surgery 07/25/18 Bartolo Gonzalez MD [address] [facility] [address] [place] [address] Referring General Surgery 09/24/19 Beatrice Watters, DIAMOND FINISHING SUPERVISOR.RACING CAR DRIVER [address] [place] [address] Hearing Dog Trainer Internal Medicine 11/03/24 Mortgage Protection Specialist Relationship Specialty Start Date End Date Yassine Link MD [address] [place] [address] PCP - General 02/15/07 Florin Patel MD [address] [place] [address] Referring General Surgery 07/25/18 Bartolo Gonzalez MD [address] [facility] [address] [place] [address] Referring General Surgery 09/24/19 Beatrice Watters, DIAMOND FINISHING SUPERVISOR.RACING CAR DRIVER [address] [place] [address] Hearing Dog Trainer Internal Medicine 11/03/24 Mortgage Protection Specialist Relationship Specialty Start Date End Date Yassine Link MD [address] [place] [address] PCP - General 02/15/07 Florin Patel MD [address] [place] [address] Referring General Surgery 07/25/18 Bartolo Gonzalez MD [address] [place] [address] Referring General Surgery 09/24/19 Beatrice Watters, DIAMOND FINISHING SUPERVISOR.RACING CAR DRIVER [address] [place] [address] [facility] Internal Medicine 11/03/24 Mortgage Protection Specialist Relationship Specialty Start Date End Date Yassine Link MD [address] [place] [address] PCP - General 02/15/07 Florin Patel MD [address] [place] [address] Referring General Surgery 07/25/18 Bartolo Gonzalez MD [address] [place] [address] Referring General Surgery 09/24/19 Beatrice Watters, DIAMOND FINISHING SUPERVISOR.RACING CAR DRIVER [address] [place] [address] [facility] Internal Medicine 11/03/24 Mortgage Protection Specialist Relationship Specialty Start Date End Date Yassine Link MD [address] [place] [address] PCP - General 02/15/07 Florin Patel MD [address] [place] [address] Referring General Surgery 07/25/18 Bartolo Gonzalez MD [address] [place] [address] Referring General Surgery 09/24/19 Beatrice Watters, DIAMOND FINISHING SUPERVISOR.RACING CAR DRIVER [address] [place] [address] Hearing Dog Trainer Internal Medicine 11/03/24 Mortgage Protection Specialist Relationship Specialty Start Date End Date Yassine Link MD [address] [place] [address] PCP - General 02/15/07 Florin Patel MD [address] [place] [address] Referring General Surgery 07/25/18 Bartolo Gonzalez MD [address] [facility] [address] [place] [address] Referring General Surgery 09/24/19 Beatrice Watters, DIAMOND FINISHING SUPERVISOR.RACING CAR DRIVER [address] [place] [address] Hearing Dog Trainer Internal Medicine 11/03/24 Mortgage Protection Specialist Relationship Specialty Start Date End Date Yassine Link MD [address] [place] [address] PCP - General 02/15/07 Florin Patel MD [address] [place] [address] Referring General Surgery 07/25/18 Bartolo Gonzalez MD [address] [place] [address] [place] [address] Referring General Surgery 09/24/19 Beatrice Watters, DIAMOND FINISHING SUPERVISOR.RACING CAR DRIVER [address] [place] [address] Hearing Dog Trainer Internal Medicine 11/03/24 Mortgage Protection Specialist Relationship Specialty Start Date End Date Yassine Link MD [address] [place] [address] PCP - General 02/15/07 Florin Patel MD [address] [place] [address] Referring General Surgery 07/25/18 Bartolo Gonzalez MD [address] [place] [address] Referring General Surgery 09/24/19 Beatrice Watters, DIAMOND FINISHING SUPERVISOR.RACING CAR DRIVER [address] [place] [address] Hearing Dog Trainer Internal Medicine 11/03/24 Mortgage Protection Specialist Relationship Specialty Start Date End Date Yassine Link MD [address] [place] [address] PCP - General 02/15/07 Florin Patel MD [address] [place] [address] Referring General Surgery 07/25/18 Bartolo Gonzalez MD [address] [id number] Referring General Surgery 09/24/19 Beatrice Watters, DIAMOND FINISHING SUPERVISOR.[facility] [address] [place] [address] Hearing Dog Trainer Internal Medicine 11/03/24 Team Status: Active Member [...] End: February 13, 2025 Dr. Jamarcus Persaud DO Emergency Provider Active Start: February 13, 2025 End: February 13, 2025 Mortgage Protection Specialist Relationship Specialty Start Date End Date Yassine Link MD [address] [place], [place] [id number] PCP - General 02/15/07 Florin Patel MD [address] [place] [address] Referring General Surgery 07/25/18 Bartolo Gonzalez MD [address] [address] [place] [address] Referring General Surgery 09/24/19 Beatrice Watters, DIAMOND FINISHING SUPERVISOR.RACING CAR DRIVER [address] [place] [address] Hearing Dog Trainer Internal Medicine 11/03/24 Mortgage Protection Specialist Relationship Specialty Start Date End Date Yassine Link MD [address] [place] [address] PCP - General 02/15/07 Florin Patel MD [address] [place] [address] Referring General Surgery 07/25/18 Bartolo Gonzalez MD [address] [facility] [address] [place] [address] Referring General Surgery 09/24/19 Beatrice Watters, DIAMOND FINISHING SUPERVISOR.RACING CAR DRIVER [address] [place] [address] Hearing Dog Trainer Internal Medicine 11/03/24 Mortgage Protection Specialist Relationship Specialty Start Date End Date Yassine Link MD [address] [place] [address] PCP - General 02/15/07 Florin Patel MD [address] [place] [address] Referring General Surgery 07/25/18 Bartolo Gonzalez MD [address] [address] [place] [address] Referring General Surgery 09/24/19 Beatrice Watters, DIAMOND FINISHING SUPERVISOR.RACING CAR DRIVER [address] [place] [address] Hearing Dog Trainer Internal Medicine 11/03/24 Mortgage Protection Specialist Relationship Specialty Start Date End Date Yassine Link MD [address] [place] [address] PCP - General 02/15/07 Florin Patel MD [address] [place] [address] Referring General Surgery 07/25/18 Bartolo Gonzalez MD [address] [place] [address] [place] [address] Referring General Surgery 09/24/19 Beatrice Watters, DIAMOND FINISHING SUPERVISOR.RACING CAR DRIVER [address] [place] [address] Hearing Dog Trainer Internal Medicine 11/03/24 Mortgage Protection Specialist Relationship Specialty Start Date End Date Yassine Link MD [address] [place] [address] PCP - General 02/15/07 Florin Patel MD [address] [place] [address] Referring General Surgery 07/25/18 Bartolo Gonzalez MD [address] [place] [address] Referring General Surgery 09/24/19 Beatrice Watters, DIAMOND FINISHING SUPERVISOR.RACING CAR DRIVER [address] [facility] [place] [address] Hearing Dog Trainer Internal Medicine 11/03/24 Mortgage Protection Specialist Relationship Specialty Start Date End Date Yassine Link MD [address] [place] [address] PCP - General 02/15/07 Florin Patel MD [address] [place] [place] [address] Referring General Surgery 07/25/18 Bartolo Gonzalez MD [address] [address] Referring General Surgery 09/24/19 Beatrice Watters, DIAMOND FINISHING SUPERVISOR.RACING CAR DRIVER [address] [place] [address] [facility] Internal Medicine 11/03/24 Mortgage Protection Specialist Relationship Specialty Start Date End Date Yassine Link MD [address] [place] [address] PCP - General 02/15/07 Florin Patel MD [address] [place] [address] Referring General Surgery 07/25/18 Bartolo Gonzalez MD [address] [place] [address] Referring General Surgery 09/24/19 Beatrice Watters, DIAMOND FINISHING SUPERVISOR.RACING CAR DRIVER [address] [place] [address] Hearing Dog Trainer Internal Medicine 11/03/24 Mortgage Protection Specialist Relationship Specialty Start Date End Date Yassine Link MD [address] [place] [address] PCP - General 02/15/07 Florin Patel MD [address] [place] [address] Referring General Surgery 07/25/18 Bartolo Gonzalez MD [address] [place] [address] Referring General Surgery 09/24/19 Beatrice Watters, DIAMOND FINISHING SUPERVISOR.RACING CAR DRIVER [address] [place] [address] Hearing Dog Trainer Internal Medicine 11/03/24 Mortgage Protection Specialist Relationship Specialty Start Date End Date Yassine Link MD [address] [place] [address] PCP - General 02/15/07 Florin Patel MD [address] [place] [address] Referring General Surgery 07/25/18 Bartolo Gonzalez MD [address] [facility] [place] [address] Referring General Surgery 09/24/19 Beatrice Watters, DIAMOND FINISHING SUPERVISOR.RACING CAR DRIVER [address] [place] [address] Hearing Dog Trainer Internal Medicine 11/03/24 Mortgage Protection Specialist Relationship Specialty Start Date End Date Yassine Link MD [address] [place] [address] PCP - General 02/15/07 Florin Patel MD [address] [place] [address] Referring General Surgery 07/25/18 Bartolo Gonzalez MD [address] [place] [address] Referring General Surgery 09/24/19 Beatrice Watters, DIAMOND FINISHING SUPERVISOR.RACING CAR DRIVER [address] [place] [address] Hearing Dog Trainer Internal Medicine 11/03/24 Mortgage Protection Specialist Relationship Specialty Start Date End Date Yassine Link MD [address] [place] [address] PCP - General 02/15/07 Florin Patel MD [address] [place] [address] Referring General Surgery 07/25/18 Bartolo Gonzalez MD [address] [place] [address] Referring General Surgery 09/24/19 Beatrice Watters, DIAMOND FINISHING SUPERVISOR.[facility] [address] [place] [address] Hearing Dog Trainer Internal Medicine 11/03/24 Team Status: Active Member [...] BE BASED ON THE PRIMARY CLINICAL RECORDS. [facility] [employer] [facility]. provides no warranty or guarantee of the accuracy or completeness of information in this document.
== END | disposition home or self-care (01) ==
LOC: MTRAD 16:55
PROVIDERS: PCP Internal Medicine; Referring Provider Orthopaedic Surgery Sports Medicine; Visit Provider Orthopaedic Surgery Sports Medicine
DX: M25.511 Pain in right shoulder (principal)
CPT/HCPCS: 73030